=== PATIENT | male | born 1955 | race African-American/Black ===

== ENCOUNTER 2016-03-06 05:20 | Inpatient (IN) | payer MEDICARE, OTHER ==
[2016-03-06] VITALS (7 sets, daily range): BP systolic 86–184; BP diastolic 53–77; PULSE 94–106; RESP 16–20; TEMP 97–98.3; O2SAT 94–99
[~2016-03-06] VITALS: Ht 167.6 cm; Wt 76.1 kg
[~2016-03-06 05:20] MED LIST: ACET325S8 PO; BISA5TAB PO; CYCL5TAB PO; DUONI NEB; FENO200C PO; HUMALOGP SQ; HYDR10TA23 PO; ISOS30 PO; LAMO100 PO; LEVEMIR SQ; LEXA20TA PO; LIDO5T TOP; NEUR100C TUBE; NITR.4 SL; NORC7.5T PO; NU-IRON PO; OMEP20TA PO; OXYC1SOL5 PO; POLY119S PO; RENATAB5 PO; RISP1TAB51 PO; SEVEL800 PO; SUPETAB30 PO; TAMS0.4C67 PO; TRAZ50TA4 PO; VITA500C PO; XANA0.5T PO; ZOFR4TAB3 SL; [UNRECOGNIZED DRUG - CODE] TOP; [UNRECOGNIZED DRUG - CODE] TOP
[2016-03-06] MEDS ORDERED: PANTOPRAZOLE SODIUM 40 MG VIAL IVP ONE (06:15)
[2016-03-06] MEDS ORDERED: ONDANSETRON HCL 4 MG/2 ML VIAL IVP ONE (06:15)
[2016-03-06] MEDS ORDERED: FAMOTIDINE 20 MG/2 ML VIAL IV PUSH ONE (06:15)
[2016-03-06] MEDS ORDERED: SODIUM CHLOR 0.9% 250 ML INJ 250 ML IV ONE (06:15)
[2016-03-06] MEDS ORDERED: SODIUM CHLORIDE 0.9% FLUSH 5 ML FLUSH IVF PRN ×2 (06:15→15:45)
--- NOTE | 2016-03-06 06:23 | PD ---
HPI Chief Complaint: GI Complaint Time Seen by Provider: 06:04 Travel History International Travel<30 days: No Contact w/Intl Traveler<30days: No Traveled to known affect area: No History of Present Illness HPI Patient is a 60-year-old male who presents to emergency room with complaints of abdominal pain with nausea vomiting and vomiting with coffee-ground emesis. Patient reports that he's been having increased nausea and vomiting for the past 24 hours, reports that since 4 AM, he has vomited 3 times, reports that his vomit is dark brown in color. Patient reports diffuse abdominal pain with his nausea. Patient does have end-stage renal disease and is on hemodialysis, patient unsure of the days for his dialysis. Patient denies history of GI bleed in the past. Patient denies chest pain or shortness of breath. Patient with no other complaints. 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 MUSCLE WEAKNESS) Neurologic: Yes (LT SIDE FLACID LA CONTRACTED, MULTIPLE STROKES, HX SEIZURES) Psychiatric: Yes (EPISODIC MOOD DISORDER, PSYCHOSIS) Reproductive: No Respiratory: Yes Immunizations Current: No Migraines: No Myocardial Infarction: No Radiation Therapy: No Renal Failure: No Schizophrenia: Yes Seizures: No Sickle Cell Disease: No Sleep Apnea: No Thyroid Disease: Yes (HYPOTHYROIDISM) Ulcer: No PNEUMOCCOCAL Vaccine (Year): 2 Past Surgical History Abdominal Surgery: No AICD: No Arteriovenous Shunt: No Cardiac Surgery: Yes (STENT, CARDIAC CATHERIZATION) Coronary Artery Bypass Graft: No Coronary Stent: Yes Ear Surgery: No Endocrine Surgery: No Eye Surgery: No Genitourinary Surgery: No Gynecologic Surgery: No Insulin Pump: No Joint Replacement: No Neurologic Surgery: No Oral Surgery: No Pacemaker: No Thoracic Surgery: No Other Surgery: Yes Social History Alcohol Use: No Tobacco Use: No Substance Use: No Allergies-Medications (Allergen,Severity, Reaction): Coded Allergies: Methadone (Verified Allergy, Severe, 03/06/16) *MDRO Multi-Drug Resistant Organism (Verified Allergy, Unknown, 03/06/16) ESBL (sputum & urine) - 06/2015 MRSA (urine) - 02/2012 Darvocet-N 100 (Verified Allergy, Unknown, 03/06/16) PATIENT WAS TOLD TO NEVER TAKE THIS MEDICATION Reported Meds & Prescriptions Reported Meds & Active Scripts Active Reported Zofran (Ondansetron HCl) 8 Mg Tab 8 Mg PO QID PRN Zinc Oxide (Zinc Oxide (Topical)) 20 % Oin 1 Applic TD TID Tylenol (Acetaminophen) 325 Mg Tab 650 Mg PO Q4H PRN Trazodone (Trazodone HCl) 150 Mg Tab 150 Mg PO HS Silvadene Topical (Silver Sulfadiazine) 1 % Cream 1 Applic TOPICAL BID Risperdal (Risperidone) 0.5 Mg Tab 0.75 Mg PO Q12HR Renvela Liq (Sevelamer Carbonate) 2.4 Gm Pack 2.4 Gm PO TID Estrella-Rafa (B-Complex W/ C & Folic Acid) 1 Tab 1 Tab PO DAILY Omeprazole 20 Mg Tab 20 Mg PO DAILY Darrington (Hydrocodone-Acetaminophen) 10-325 Mg Tab 1 Tab PO Q12HR PRN Lexapro (Escitalopram Oxalate) 20 Mg Tab 20 Mg PO HS Levemir Inj (Insulin Detemir) 1,000 unit/ 10 ML Vial 19 Units SQ AC BREAKFAST Do not mix with any other Insulin. Levemir Inj (Insulin Detemir) 1,000 unit/ 10 ML Vial 15 Units SQ HS Do not mix with any other Insulin. Lamictal (Lamotrigine) 200 Mg Tab 200 Mg PO HS Isosorbide Mononitrate ER (Isosorbide Mononitrate) 30 Mg Ryan 30 Mg PO DAILY Hydralazine (Hydralazine HCl) 10 Mg Tab 10 Mg PO TID Take with a meal Humalog Inj (Insulin Human Lispro) 1,000 Unit/10 Ml Vial 2-12 Units SQ ACHS Max dose at bedtime:( )units; sugars < 70,(0)units; sugars 150-199,(2)units; sugars 200-249,(4)units; sugars 250-299,(7)units; sugars 300-349,(10)units; sugars more than 349,(12)units. Gabapentin 100 Mg Cap 200 Mg PO DAILY Flomax (Tamsulosin HCl) 0.4 Mg Cap 0.4 Mg PO HS Duoneb (Ipratropium-Albuterol Neb) 0.5-2.5 Mg/3 Ml Neb 1 Nebule INH Q4HR NEB PRN Bisacodyl EC (Bisacodyl) 5 Mg Tabec 10 Mg PO HS Ascorbic Acid 500 Mg Tab 500 Mg PO Ambien (Zolpidem Tartrate) 10 Mg Tab 10 Mg PO HS PRN Review of Systems General / Constitutional: No: Fever Eyes: No: Visual changes HENT: No: Headaches Cardiovascular: No: Chest Pain or Discomfort Respiratory: No: Shortness of Breath Gastrointestinal: Positive: Nausea, Vomiting, Abdominal Pain, Hematemesis Genitourinary: No: Dysuria Musculoskeletal: No: Pain Skin: No Rash Neurologic: No: Weakness Psychiatric: No: Depression Endocrine: No: Polydipsia Hematologic/Lymphatic: No: Easy Bruising Physical Exam Narrative GENERAL: Patient in mild distress SKIN: Warm and dry. HEAD: Atraumatic. Normocephalic. EYES: Pupils equal and round. No scleral icterus. No injection or drainage. ENT: No nasal bleeding or discharge. Mucous membranes pink and moist. NECK: Trachea midline. No JVD. CARDIOVASCULAR: Tachycardic. No murmur appreciated. RESPIRATORY: No accessory muscle use. Clear to auscultation. Breath sounds equal bilaterally. GASTROINTESTINAL: Abdomen soft, non-tender, nondistended. Patient with light brown stool, heme positive MUSCULOSKELETAL: No obvious deformities. No clubbing. No cyanosis. No edema. Patient with AV fistula to left lower extremity NEUROLOGICAL: Awake and alert. No obvious cranial nerve deficits. Motor grossly within normal limits. Normal speech. PSYCHIATRIC: Appropriate mood and affect; insight and judgment normal. Data Data Last Documented VS Vital Signs Date Time Temp Pulse Resp B/P Pulse Ox O2 Delivery O2 Flow Rate FiO2 03/06/16 06:49 16 99 Nasal Cannula 3 03/06/16 05:22 106 86/53 Orders Complete Blood Count With Diff (03/06/16 06:04) Comprehensive Metabolic Panel (03/06/16 06:04) Lipase (03/06/16 06:04) Lactic Acid (03/06/16 06:04) Prothrombin Time / Inr (Pt) (03/06/16 06:04) Act Partial Throm Time (Ptt) (03/06/16 06:04) Ct Abd/Pel W/O Iv Contrast (03/06/16 06:04) Iv Access Insert/Monitor (03/06/16 06:04) Ecg Monitoring (03/06/16 06:04) Oximetry (03/06/16 06:04) Ondansetron Inj (Zofran Inj) (03/06/16 06:15) Pantoprazole Inj (Protonix Inj) (03/06/16 06:15) Sodium Chloride 0.9% Flush (Ns Flush) (03/06/16 06:15) Electrocardiogram (03/06/16 06:04) Chest, Single Ap (03/06/16 06:04) Famotidine Inj (Pepcid Inj) (03/06/16 06:15) Sodium Chlor 0.9% 250 Ml Inj (Ns 250 Ml (03/06/16 06:15) Blood Culture (03/06/16 06:18) Type And Screen (03/06/16 06:21) Pantoprazole Inj (Protonix Inj) (03/06/16 07:30) Ng Gastric Tube Insert/Monitor (03/06/16 06:50) Consult Vascular Access Team (03/06/16 ) Vascular Poc Ultrasound (03/06/16 ) Labs Laboratory Tests Test 03/06/16 06:26 White Blood Count 15.0 TH/MM3 Red Blood Count 4.51 MIL/MM3 Hemoglobin 13.0 GM/DL Hematocrit 40.2 % Mean Corpuscular Volume 89.0 FL Mean Corpuscular Hemoglobin 28.9 PG Mean Corpuscular Hemoglobin 32.5 % Concent Red Cell Distribution Width 18.7 % Platelet Count 311 TH/MM3 Mean Platelet Volume 9.0 FL Neutrophils (%) (Auto) 79.0 % Lymphocytes (%) (Auto) 11.8 % Monocytes (%) (Auto) 8.8 % Eosinophils (%) (Auto) 0.1 % Basophils (%) (Auto) 0.3 % Neutrophils # (Auto) 11.9 TH/MM3 Lymphocytes # (Auto) 1.8 TH/MM3 Monocytes # (Auto) 1.3 TH/MM3 Eosinophils # (Auto) 0.0 TH/MM3 Basophils # (Auto) 0.0 TH/MM3 CBC Comment DIFF FINAL Differential Comment Prothrombin Time 11.5 SEC Prothromb Time International 1.0 RATIO Ratio Activated Partial 25.7 SEC Thromboplast Time Sodium Level 137 MEQ/L Potassium Level 5.5 MEQ/L Chloride Level 86 MEQ/L Carbon Dioxide Level 37.0 MEQ/L Anion Gap 14 MEQ/L Blood Urea Nitrogen 47 MG/DL Creatinine 8.56 MG/DL Estimat Glomerular Filtration 8 ML/MIN Rate Random Glucose 243 MG/DL Lactic Acid Level 2.1 mmol/L Calcium Level 10.0 MG/DL Total Bilirubin 0.5 MG/DL Aspartate Amino Transf 12 U/L (AST/SGOT) Alanine Aminotransferase 44 U/L (ALT/SGPT) Alkaline Phosphatase 88 U/L Total Protein 10.3 GM/DL Albumin 3.4 GM/DL Lipase 104 U/L Blood Type B POSITIVE Antibody Screen NEGATIVE MDM Medical Decision Making Medical Screen Exam Complete: Yes Emergency Medical Condition: Yes Interpretation(s) Vital Signs Date Time Temp Pulse Resp B/P Pulse Ox O2 Delivery O2 Flow Rate FiO2 03/06/16 05:22 106 18 86/53 94 Differential Diagnosis GI bleed, symptomatic anemia, gastritis, gastric ulcer, gastroenteritis, UTI, sepsis, pneumonia Narrative Course Patient is a 60-year-old male who presents to emergency room with complaints of nausea vomiting and abdominal pain. Reports that he began having nausea vomiting 24 hours ago. Patient reports that since 1 AM this morning, he has vomited 3 times and reports coffee ground emesis with vomiting. Pt hypotensive and tachycardic. Pt with ESRD on HD. Will give pt 250 bolus of fluids. Pt with light brown heme positive stool. pt will require gi bleed workup. cbc , bmp, ct abd pelvis ordered. NGT lavage ordered. will type and screen pt as he may require blood products. Will start protonix, protonix gtt BP now 109/82 - pt's iv apparently is non functional, attempt made to place EJ - pt refuses EJ, IV team here to place IV, IV placed successfully Procedures Procedure Narrative 20 gauge IV successfully placed to right AC under ultrasound guidance Liane Montanez DO Mar 06, 2016 06:22
[2016-03-06] MEDS ORDERED: HYDR-3366 PO (06:24)
[2016-03-06] MEDS ORDERED: LEVEMIR SQ ×2 (06:24)
[2016-03-06] MEDS ORDERED: OMEP20TA PO (06:24)
[2016-03-06] MEDS ORDERED: ASCO500T PO (06:24)
[2016-03-06] MEDS ORDERED: TAMS5CAP PO (06:24)
[2016-03-06] MEDS ORDERED: HYDR10TA23 PO (06:24)
[2016-03-06] MEDS ORDERED: LAMI200T PO (06:24)
[2016-03-06] MEDS ORDERED: RENATAB5 PO (06:24)
[2016-03-06] MEDS ORDERED: ISOS30TA3 PO (06:24)
[2016-03-06] MEDS ORDERED: SILV1CRE20 TOPICAL (06:24)
[2016-03-06] MEDS ORDERED: TRAZ150T75 PO (06:24)
[2016-03-06] MEDS ORDERED: IPRASOL INH (06:24)
[2016-03-06] MEDS ORDERED: AMBI10TA PO (06:24)
[2016-03-06] MEDS ORDERED: ZINC20OI TD (06:24)
[2016-03-06] MEDS ORDERED: HUMALOG SQ (06:24)
[2016-03-06] MEDS ORDERED: ZOFR8TAB PO (06:24)
[2016-03-06] MEDS ORDERED: RENV2.4P PO (06:24)
[2016-03-06] MEDS ORDERED: FLEE5TAB PO (06:24)
[2016-03-06] MEDS ORDERED: LEXA20TA PO (06:24)
[2016-03-06] MEDS ORDERED: GABA100C4 PO (06:24)
[2016-03-06] MEDS ORDERED: RISP0.5T20 PO (06:24)
[2016-03-06] MEDS ORDERED: TYLE325T PO (06:24)
--- NOTE | 2016-03-06 06:42 | RADRPT ---
EXAM DATE/TIME: 03/06/2016 06:18 [facility] COMPARISON: CHEST SINGLE AP, August 03, 2015, 11:53. INDICATIONS : Pt having chest pain with coffee ground emesis. MEDICAL HISTORY : Hypertension. Cardiovascular disease. Stroke. SURGICAL HISTORY : ENCOUNTER: Initial ACUITY: 1 day PAIN SCORE: Non-responsive. LOCATION: Bilateral chest FINDINGS: The patient is rotated towards the left. Focal opacity in the lower lateral left chest suggests a de veloping infiltrate and there is associated loss of delineation of the left hemidiaphragm the costoph renic angle. The. The right lung is clear. The heart is normal in size. CONCLUSION: Consolidative infiltrate lower lateral left lung. Lito Enamorado MD on March 06, 2016 at 6:39 Board Certified Radiologist. This report was verified electronically.
[2016-03-06 07:02] LABS: AUTOMATED NEUTROPHIL # 11.9 TH/MM3 (1.8-7.7); BASOPHIL % 0.3 % (0.0-2.0); EOSINOPHIL % 0.1 % (0.0-4.0); HEMATOCRIT 40.2 % (39.0-51.0); HEMO FLAGS DIFF FINAL; LYMPH % 11.8 % (9.0-44.0); LYMPHOCYTE # 1.8 TH/MM3 (1.0-4.8); MEAN CORPUSCULAR HEMOGLOBIN 28.9 PG (27.0-34.0); MEAN CORPUSCULAR HGB CONC 32.5 % (32.0-36.0); MONO % 8.8 % (0.0-8.0); PLATELET COUNT 311 TH/MM3 (150-450); RED BLOOD COUNT 4.51 MIL/MM3 (4.50-5.90); RED CELL DISTRIBUTION WIDTH 18.7 % (11.6-17.2)
[2016-03-06 07:14] LABS: APTT (PATIENT) 25.7 SEC (24.3-30.1); PROTHROMBIN TIME - PATIENT 11.5 SEC (9.8-11.6)
[2016-03-06 07:15] LABS: ANION GAP 14 MEQ/L (5-15); AST (GOT) 12 U/L (15-37); BLOOD UREA NITROGEN 47 MG/DL (7-18); CHLORIDE 86 MEQ/L (98-107); GLOMERULAR FILTRATION RATE 8 ML/MIN (>89); POTASSIUM 5.5 MEQ/L (3.5-5.1); SODIUM (NA) 137 MEQ/L (136-145)
[2016-03-06 07:18] LABS: ALKALINE PHOSPHATASE 88 U/L (45-117); ALT (GPT) 44 U/L (12-78); TOTAL BILIRUBIN ADULT 0.5 MG/DL (0.2-1.0)
[2016-03-06] MEDS ORDERED: PIPERACIL-TAZO 4.5 GM PREMIX 100 ML IV STA (08:42)
[2016-03-06] MEDS ORDERED: VANCOMYCIN INJ 1,000 MG in SODIUM CHLOR 0.9% 250 ML INJ 250 ML IV STA (08:42)
--- NOTE | 2016-03-06 08:48 | PD ---
Data Data Last Documented VS Vital Signs Date Time Temp Pulse Resp B/P Pulse Ox O2 Delivery O2 Flow Rate FiO2 03/06/16 08:49 98.3 102 138/53 98 Nasal Cannula 03/06/16 06:49 16 3 Orders Complete Blood Count With Diff (03/06/16 06:04) Comprehensive Metabolic Panel (03/06/16 06:04) Lipase (03/06/16 06:04) Lactic Acid (03/06/16 06:04) Prothrombin Time / Inr (Pt) (03/06/16 06:04) Act Partial Throm Time (Ptt) (03/06/16 06:04) Ct Abd/Pel W/O Iv Contrast (03/06/16 06:04) Iv Access Insert/Monitor (03/06/16 06:04) Ecg Monitoring (03/06/16 06:04) Oximetry (03/06/16 06:04) Ondansetron Inj (Zofran Inj) (03/06/16 06:15) Pantoprazole Inj (Protonix Inj) (03/06/16 06:15) Sodium Chloride 0.9% Flush (Ns Flush) (03/06/16 06:15) Electrocardiogram (03/06/16 06:04) Chest, Single Ap (03/06/16 06:04) Famotidine Inj (Pepcid Inj) (03/06/16 06:15) Sodium Chlor 0.9% 250 Ml Inj (Ns 250 Ml (03/06/16 06:15) Blood Culture (03/06/16 06:18) Type And Screen (03/06/16 06:21) Pantoprazole Inj (Protonix Inj) (03/06/16 07:30) Ng Gastric Tube Insert/Monitor (03/06/16 06:50) Consult Vascular Access Team (03/06/16 ) Vascular Poc Ultrasound (03/06/16 ) Vancomycin Inj (Vancomycin Inj) (03/06/16 08:42) Piperacil-Tazo 4.5 Gm Premix (Zosyn 4.5 (03/06/16 08:42) Labs Laboratory Tests Test 03/06/16 06:26 White Blood Count 15.0 TH/MM3 Red Blood Count 4.51 MIL/MM3 Hemoglobin 13.0 GM/DL Hematocrit 40.2 % Mean Corpuscular Volume 89.0 FL Mean Corpuscular Hemoglobin 28.9 PG Mean Corpuscular Hemoglobin 32.5 % Concent Red Cell Distribution Width 18.7 % Platelet Count 311 TH/MM3 Mean Platelet Volume 9.0 FL Neutrophils (%) (Auto) 79.0 % Lymphocytes (%) (Auto) 11.8 % Monocytes (%) (Auto) 8.8 % Eosinophils (%) (Auto) 0.1 % Basophils (%) (Auto) 0.3 % Neutrophils # (Auto) 11.9 TH/MM3 Lymphocytes # (Auto) 1.8 TH/MM3 Monocytes # (Auto) 1.3 TH/MM3 Eosinophils # (Auto) 0.0 TH/MM3 Basophils # (Auto) 0.0 TH/MM3 CBC Comment DIFF FINAL Differential Comment Prothrombin Time 11.5 SEC Prothromb Time International 1.0 RATIO Ratio Activated Partial 25.7 SEC Thromboplast Time Sodium Level 137 MEQ/L Potassium Level 5.5 MEQ/L Chloride Level 86 MEQ/L Carbon Dioxide Level 37.0 MEQ/L Anion Gap 14 MEQ/L Blood Urea Nitrogen 47 MG/DL Creatinine 8.56 MG/DL Estimat Glomerular Filtration 8 ML/MIN Rate Random Glucose 243 MG/DL Lactic Acid Level 2.1 mmol/L Calcium Level 10.0 MG/DL Total Bilirubin 0.5 MG/DL Aspartate Amino Transf 12 U/L (AST/SGOT) Alanine Aminotransferase 44 U/L (ALT/SGPT) Alkaline Phosphatase 88 U/L Total Protein 10.3 GM/DL Albumin 3.4 GM/DL Lipase 104 U/L Blood Type B POSITIVE Antibody Screen NEGATIVE MDM Supervised Visit with JONO: No Narrative Course Patient signout to me by previous provider. Please see associated no for further details. In short patient is a 60-year-old man with history of ESRD on HD dialyzed Tuesday/Tuesday/Tuesday here with complaint of abdominal pain, nausea vomiting and coffee-ground emesis. Apparently he's had nausea for the last 24 hours and vomited 3 times, the last of which had dark brown coffee- ground emesis. Diffuse abdominal pain. Denies any known history of GI bleed. Patient initially hypotensive, patient given 250 mL normal saline bolus by previous provider given patient's ESRD, with improvement of blood pressure into the 100 systolic. Patient slightly tachycardic with heart rate in the 100s. Patient given IV PPI, labs ordered and sent. Patient signout to me pending laboratory results, CT abdomen and pelvis. CBC, CMP, lipase, lactate, coags, type and screen, blood cultures obtained and notable for WBC 15 0.0, BUN 47/creatinine 8.56 consistent with his ESRD. Slightly elevated potassium at 5.5. Bicarbonate 37. Lactate slightly elevated at 2.1. Twelve-lead EKG shows sinus tachycardia, rate 103. Left atrial enlargement with left axis deviation. No notable ST abnormalities, normal intervals. Given his leukocytosis, lactic elevation, hypotension and tachycardia I covered patient with vancomycin and Zosyn broadly. Portable chest x-ray ordered and showed a left basilar pneumonia. CT abdomen and pelvis showed in homogenous liver probably fatty infiltration. Large hiatal hernia and strengthening kidneys consistent with ESRD. Patient remains hemodynamically stable and will be admitted to medicine for further evaluation of possible sepsis, GI bleed. Sepsis Criteria SIRS Criteria (2 or more): Heart rate over 90, WBC > 75956, < 4000 or > 10% bands Severe Sepsis (+one): Lactate >2 Diagnosis Primary Impression: Sepsis Qualified Code: A41.9 - Sepsis, due to unspecified organism Additional Impressions: GI bleed End stage renal disease Admitting Information Admitting Physician Requests: Admit Karissa Greenwood MD Mar 06, 2016 08:48
--- NOTE | 2016-03-06 09:50 | RADRPT ---
EXAM DATE/TIME: 03/06/2016 06:29 [facility] COMPARISON: CT ABDOMEN & PELVIS W/O CONTRAST, November 29, 2014, 13:01. INDICATIONS : Nausea vomiting with coffee ground emesis. ORAL CONTRAST: No oral contrast ingested. RADIATION DOSE: 15.67 CTDIvol (mGy) MEDICAL HISTORY : Hypertension. Benign prostatic hyperplasia (BPH). Diabetes mellitus type 2.Renal disease. Hepetitis. Neoplasm in colon. SURGICAL HISTORY : Non-responsive. ENCOUNTER: Initial ACUITY: 3 days PAIN SCALE: 10/10 LOCATION: Abdomen TECHNIQUE: Volumetric scanning of the abdomen and pelvis was performed. Using automated exposure control and ad justment of the mA and/or kV according to patient size, radiation dose was kept as low as reasonably achievable to obtain optimal diagnostic quality images. FINDINGS: The lung bases are clear. The liver is inhomogeneous. Spleen and pancreas are unremarkable. The right adrenal gland is normal. A small focal calcification is seen in the left adrenal gland wit h a small nodule evident. The kidneys are small. There are no renal calculi identified. There are no calcifications along the expected course of the right or the left ureter. In the pelvis, moderate stool is present in the colon. A vascular stent is seen in the common femora l on the right. Review of bone windows reveals only degenerative changes. CONCLUSION: 1. Inhomogeneous liver probably fatty infiltration. This could be further evaluated by CT scan with IV contrast in this dialysis patient. 2. Large hiatal hernia. 3. Small shrunken kidneys consistent with a history of dialysis. Felix Isaac MD FACR on March 06, 2016 at 9:36 Board Certified Radiologist. This report was verified electronically.
[2016-03-06] MEDS ORDERED: ONDANSETRON HCL 4 MG/2 ML VIAL IV PUSH PRN (10:45)
[2016-03-06] MEDS ORDERED: SODIUM CHLOR 0.45% 1000 ML INJ 1,000 ML IV ONE (11:00)
[2016-03-06] MEDS: PANTOPRAZOLE INJ 80 MG in SODIUM CHLORIDE 0.9% INJ 100 ML IV SCH ×2 (11:05→17:02)
--- NOTE | 2016-03-06 11:05 | PD.CONS ---
HPI History of Present Illness This is a 60 year old male patient with multiple medical problems, including end stage renal disease who gets hemodialysis on Mondays, Wednesdays, Fridays, who came to the ER for evaluation of nausea, vomiting, and coffee ground emesis. He reports that he had nausea and vomiting all day yesterday and that it consisted of a very dark color. He also has associated epigastric pain that he describes as an intermittent ache/sometimes sharp pain with no radiation. He denies any relation to food. He denies any reflux or heartburn. He denies any diarrhea but does have constipation. He does not know if he takes meds for this at home. He denies any blood in his stools or black stools. He denies any hx of GI Bleeding. He denies any hx of PUD. He is a poor historian. When asked if he takes any blood thinners, he shrugs his shoulders. He does not have any blood thinners listed on his EMR. The patient cannot recall if he has ever had an EGD/Colonoscopy, although according to the EMR, he had an EGD and colonoscopy in 2012. EGD/Colonoscopy (04/25/12)----> severe erosive esophagitis, medium hiatal hernia, rectal polyp removal. Pathology revealed acute esophagitis with features of ulceration, no fungal organisms are present, tubular adenoma. (Tita Infante) PFSH Past Medical History Poor historian, according to the EMR: Diabetes Hypertension Chronic nausea and vomiting End-stage renal disease, hemodialysis Mondays, Wednesdays, Fridays Bipolar d/o Depression GERD Coronary artery disease Congestive heart failure Paranoid schizophrenia PVD Hyperlipidemia CVA with left-sided hemiparesis Peripheral neuropathy Hypothyroidism Arthritis Esophagitis Colon polyps Past Surgical History EGD Colonoscopy Cardiac catheterization AV fistula placement (Tita Infante) Coded Allergies: Methadone (Verified Allergy, Severe, 03/06/16) *MDRO Multi-Drug Resistant Organism (Verified Allergy, Unknown, 03/06/16) ESBL (sputum & urine) - 06/2015 MRSA (urine) - 02/2012 Darvocet-N 100 (Verified Allergy, Unknown, 03/06/16) PATIENT WAS TOLD TO NEVER TAKE THIS MEDICATION Medications Allergies Coded Allergies Type Severity Reaction Last Updated Verified Methadone Allergy Severe 03/06/16 Yes *MDRO Multi-Drug Resistant Organism Allergy Unknown 03/06/16 Yes Darvocet-N 100 Allergy Unknown 03/06/16 Yes Active Scripts Medications Dose Route/Sig Days Date Category Dose Instructions Zofran (Ondansetron HCl) 8 Mg Tab 8 Mg PO QID PRN 03/06/16 Reported Zinc Oxide (Zinc Oxide (Topical)) 20 % Oin 1 Applic TD TID 03/06/16 Reported Tylenol (Acetaminophen) 325 Mg Tab 650 Mg PO Q4H PRN 03/06/16 Reported Trazodone (Trazodone HCl) 150 Mg Tab 150 Mg PO HS 03/06/16 Reported Silvadene Topical (Silver Sulfadiazine) 1 % Cream 1 Applic TOPICAL BID 03/06/16 Reported Risperdal (Risperidone) 0.5 Mg Tab 0.75 Mg PO Q12HR 03/06/16 Reported Renvela Liq (Sevelamer Carbonate) 2.4 Gm Pack 2.4 Gm PO TID 03/06/16 Reported Estrella-Rafa (B-Complex W/ C & Folic Acid) 1 Tab 1 Tab PO DAILY 03/06/16 Reported Omeprazole 20 Mg Tab 20 Mg PO DAILY 03/06/16 Reported [place] (Hydrocodone-Acetaminophen) 10-325 Mg Tab 1 Tab PO Q12HR PRN 03/06/16 Reported Lexapro (Escitalopram Oxalate) 20 Mg Tab 20 Mg PO HS 03/06/16 Reported Levemir Inj (Insulin Detemir) 1,000 unit/ 10 ML Vial 19 Units SQ AC BREAKFAST 03/06/16 Reported Do not mix with any other Insulin. Levemir Inj (Insulin Detemir) 1,000 unit/ 10 ML Vial 15 Units SQ HS 03/06/16 Reported Do not mix with any other Insulin. Lamictal (Lamotrigine) 200 Mg Tab 200 Mg PO HS 03/06/16 Reported Isosorbide Mononitrate ER (Isosorbide Mononitrate) 30 Mg Ryan 30 Mg PO DAILY 03/06/16 Reported Hydralazine (Hydralazine HCl) 10 Mg Tab 10 Mg PO TID 03/06/16 Reported Take with a meal Humalog Inj (Insulin Human Lispro) 1,000 Unit/10 Ml Vial 2-12 Units SQ ACHS 03/06/16 Reported Max dose at bedtime:( )units; sugars < 70,(0)units ; sugars 150-199,(2)units; sugars 200-249,(4)units; sugars 250-299,(7)units; sugars 300-349,(10)units; sugars more than 349,(12)units. Gabapentin 100 Mg Cap 200 Mg PO DAILY 03/06/16 Reported Flomax (Tamsulosin HCl) 0.4 Mg Cap 0.4 Mg PO HS 03/06/16 Reported Duoneb (Ipratropium-Albuterol Neb) 0.5-2.5 Mg/3 Ml Neb 1 Nebule INH Q4HR NEB PRN 03/06/16 Reported Bisacodyl EC (Bisacodyl) 5 Mg Tabec 10 Mg PO HS 03/06/16 Reported Ascorbic Acid 500 Mg Tab 500 Mg PO 03/06/16 Reported Ambien (Zolpidem Tartrate) 10 Mg Tab 10 Mg PO HS PRN 03/06/16 Reported Family History States his brother had colon cancer. Social History No tobacco. No etoh. No illicit drug use. (Tita Infante) Review of Systems Constitutional: COMPLAINS OF: Fatigue, Weight loss (unclear amount) Respiratory: COMPLAINS OF: Shortness of breath, DENIES: Cough Cardiovascular: DENIES: Chest pain Gastrointestinal: COMPLAINS OF: Abdominal pain, Constipation, Nausea, Vomiting , Hematemesis, DENIES: Black stools, Bloody stools, Diarrhea, Swelling of Abdomen, Heartburn Musculoskeletal: COMPLAINS OF: Joint pain Integumentary: DENIES: Abnormal pigmentation Hematologic/lymphatic: DENIES: Bruising Neurologic: DENIES: Headache Psychiatric: DENIES: Confusion (Tita Infante) GI Exam Vitals I&O Vital Signs Date Time Temp Pulse Resp B/P Pulse Ox O2 Delivery O2 Flow Rate FiO2 03/06/16 08:49 98.3 102 138/53 98 Nasal Cannula 03/06/16 06:49 16 99 Nasal Cannula 3 03/06/16 05:22 106 18 86/53 94 Laboratory Test 03/06/16 06:26 White Blood Count 15.0 TH/MM3 Red Blood Count 4.51 MIL/MM3 Hemoglobin 13.0 GM/DL Hematocrit 40.2 % Mean Corpuscular Volume 89.0 FL Mean Corpuscular Hemoglobin 28.9 PG Mean Corpuscular Hemoglobin 32.5 % Concent Red Cell Distribution Width 18.7 % Platelet Count 311 TH/MM3 Mean Platelet Volume 9.0 FL Neutrophils (%) (Auto) 79.0 % Lymphocytes (%) (Auto) 11.8 % Monocytes (%) (Auto) 8.8 % Eosinophils (%) (Auto) 0.1 % Basophils (%) (Auto) 0.3 % Neutrophils # (Auto) 11.9 TH/MM3 Lymphocytes # (Auto) 1.8 TH/MM3 Monocytes # (Auto) 1.3 TH/MM3 Eosinophils # (Auto) 0.0 TH/MM3 Basophils # (Auto) 0.0 TH/MM3 CBC Comment DIFF FINAL Differential Comment Prothrombin Time 11.5 SEC Prothromb Time International 1.0 RATIO Ratio Activated Partial 25.7 SEC Thromboplast Time Sodium Level 137 MEQ/L Potassium Level 5.5 MEQ/L Chloride Level 86 MEQ/L Carbon Dioxide Level 37.0 MEQ/L Anion Gap 14 MEQ/L Blood Urea Nitrogen 47 MG/DL Creatinine 8.56 MG/DL Estimat Glomerular Filtration 8 ML/MIN Rate Random Glucose 243 MG/DL Lactic Acid Level 2.1 mmol/L Calcium Level 10.0 MG/DL Total Bilirubin 0.5 MG/DL Aspartate Amino Transf 12 U/L (AST/SGOT) Alanine Aminotransferase 44 U/L (ALT/SGPT) Alkaline Phosphatase 88 U/L Total Protein 10.3 GM/DL Albumin 3.4 GM/DL Lipase 104 U/L Blood Type B POSITIVE Antibody Screen NEGATIVE Date/Time Procedure Status Source Growth 03/06/16 09:00 Aerobic Blood Culture Received Blood Peripheral Pending 03/06/16 09:00 Anaerobic Blood Culture Received Blood Peripheral Pending Physical Examination HEENT: Normocephalic; atraumatic; no jaundice. CHEST: CTA CARDIAC: RRR ABDOMEN: Soft, nondistended, nontender; no hepatosplenomegaly; bowel sounds are present in all four quadrants. EXTREMITIES: No clubbing, cyanosis, or edema. 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 left sided weakness. (Tita Infante) Assessment and Plan Plan ASSESSMENT: - Upper GI Bleed with coffee ground emesis. States n/v with dark emesis since yesterday. Denies hx of PUD. EGD/Colonoscopy (04/25/12)----> severe erosive esophagitis, medium hiatal hernia, rectal polyp removal. Pathology revealed acute esophagitis with features of ulceration, no fungal organisms are present, tubular adenoma. HH 13.0/40.2. PPI. NPO. Will schedule for EGD today. - Epigastric pain. PPI - Leukocytosis. WBC 15.0. - ESRD, HD Mondays, Wednesdays, Fridays per renal. - Hyperkalemia. K+ 5.5. Per renal. - CAD, HTN, Hyperlipidemia, Hypothyroidism, Bipolar d/o PLAN: - Plan for egd today - Obtain consents - NPO - Protonix Gtt - Monitor HH - Transfuse as necessary - Supportive care - Further recommendations to follow based on results of above - Pt seen and examined by Dr. Amezquita and myself and this note is written on his behalf (Tita Infante) Physician Comments Patient was seen and examined, agree with above note, EGD today. PRBC as needed. (John Paul Amezquita MD) Tita Infante Mar 06, 2016 11:05 John Paul Amezquita MD Mar 06, 2016 13:51
--- NOTE | 2016-03-06 11:28 | EKG ---
Date Performed: 03/06/2016 Time Performed: 07:32:54 PTAGE: 60 years EKG: SINUS TACHYCARDIA POSSIBLE LEFT ATRIAL ENLARGEMENT LEFT AXIS DEVIATION ABNORMAL ECG PREVIOUS TRACING : 07/25/2015 12.10 Since previous tracing, no significant change noted DOCTOR: Jaime Stroud Interpretating Date/Time 03/06/2016 11:27:16
--- NOTE | 2016-03-06 12:24 | HHI.HP ---
[facility] Primary Care Physician Non-Staff Admission Diagnosis sepsis, abdominal pain, GI bleed Diagnoses: (1) GI bleed Diagnosis: Principal (2) End stage renal disease Diagnosis: Secondary Chief Complaint: vomiting blood Travel History International Travel<30 Days: No Contact w/Intl Traveler <30 Da: No Traveled to Known Affected Are: No Sepsis Criteria SIRS Criteria (2 or more): Heart rate over 90, WBC > 38537, < 4000 or > 10% bands Sepsis Criteria (SIRS+source): Infect source susp/known Severe Sepsis (+one): Hypotension Criteria Outcome: Meets severe sepsis criteria History of Present Illness patient is a 60 y/o male with history of ESRD, CAD who presented to ER after he vomited blood. the patient is not a good historian and most of the information was obtained from ER and medical documents. he reportedly had a few episodes of hematemesis. he denies any abdominal pain or nausea at this moment. he denies any sob or dizziness.he's not sure when he has his last HD. Review of Systems ROS Limitations: Poor Historian Gastrointestinal: COMPLAINS OF: Vomiting Past Family Social History Past Medical History Poor historian, according to the EMR: Diabetes Hypertension Chronic nausea and vomiting End-stage renal disease, hemodialysis Mondays, Wednesdays, Fridays Bipolar d/o Depression GERD Coronary artery disease Congestive heart failure Paranoid schizophrenia PVD Hyperlipidemia CVA with left-sided hemiparesis Peripheral neuropathy Hypothyroidism Arthritis Esophagitis Colon polyps Past Surgical History EGD Colonoscopy Cardiac catheterization AV fistula placement Reported Medications Zofran (Ondansetron HCl) 8 Mg Tab 8 Mg PO QID PRN Zinc Oxide (Zinc Oxide (Topical)) 20 % Oin 1 Applic TD TID Tylenol (Acetaminophen) 325 Mg Tab 650 Mg PO Q4H PRN Trazodone (Trazodone HCl) 150 Mg Tab 150 Mg PO HS Silvadene Topical (Silver Sulfadiazine) 1 % Cream 1 Applic TOPICAL BID Risperdal (Risperidone) 0.5 Mg Tab 0.75 Mg PO Q12HR Renvela Liq (Sevelamer Carbonate) 2.4 Gm Pack 2.4 Gm PO TID Estrella-Rafa (B-Complex W/ C & Folic Acid) 1 Tab 1 Tab PO DAILY Omeprazole 20 Mg Tab 20 Mg PO DAILY [place] (Hydrocodone-Acetaminophen) 10-325 Mg Tab 1 Tab PO Q12HR PRN Lexapro (Escitalopram Oxalate) 20 Mg Tab 20 Mg PO HS Levemir Inj (Insulin Detemir) 1,000 unit/ 10 ML Vial 19 Units SQ AC BREAKFAST Do not mix with any other Insulin. Levemir Inj (Insulin Detemir) 1,000 unit/ 10 ML Vial 15 Units SQ HS Do not mix with any other Insulin. Lamictal (Lamotrigine) 200 Mg Tab 200 Mg PO HS Isosorbide Mononitrate ER (Isosorbide Mononitrate) 30 Mg Ryan 30 Mg PO DAILY Hydralazine (Hydralazine HCl) 10 Mg Tab 10 Mg PO TID Take with a meal Humalog Inj (Insulin Human Lispro) 1,000 Unit/10 Ml Vial 2-12 Units SQ ACHS Max dose at bedtime:( )units; sugars < 70,(0)units; sugars 150-199,(2)units; sugars 200-249,(4)units; sugars 250-299,(7)units; sugars 300-349,(10)units; sugars more than 349,(12)units. Gabapentin 100 Mg Cap 200 Mg PO DAILY Flomax (Tamsulosin HCl) 0.4 Mg Cap 0.4 Mg PO HS Duoneb (Ipratropium-Albuterol Neb) 0.5-2.5 Mg/3 Ml Neb 1 Nebule INH Q4HR NEB PRN Bisacodyl EC (Bisacodyl) 5 Mg Tabec 10 Mg PO HS Ascorbic Acid 500 Mg Tab 500 Mg PO Ambien (Zolpidem Tartrate) 10 Mg Tab 10 Mg PO HS PRN Allergies: Coded Allergies: Methadone (Verified Allergy, Severe, 03/06/16) *MDRO Multi-Drug Resistant Organism (Verified Allergy, Unknown, 03/06/16) ESBL (sputum & urine) - 06/2015 MRSA (urine) - 02/2012 Darvocet-N 100 (Verified Allergy, Unknown, 03/06/16) PATIENT WAS TOLD TO NEVER TAKE THIS MEDICATION Active Ordered Medications Current Medications Ondansetron HCl (Zofran Inj) 4 mg ONCE ONCE IVP Last administered on 03/06/16 07:59; Start 03/06/16 at 06:15; Stop 03/06/16 at 06:16; Status DC Pantoprazole Sodium (Protonix Inj) 80 mg ONCE ONCE IVP Last administered on 07:59; Start 03/06/16 at 06:15; Stop 03/06/16 at 06:16; Status DC IV Flush (NS Flush) 2 ml UNSCH PRN IVF FLUSH AFTER USING IV ACCESS; Start at 06:15 Famotidine 20 mg 20 mg ONCE ONCE IV PUSH Last administered on 03/06/16 08:00; Start 03/06/16 at 06:15; Stop 03/06/16 at 06:16; Status DC Sodium Chloride 250 ml @ 250 mls/hr BOLUS ONCE IV Last administered on 07:58; Start 03/06/16 at 06:15; Stop 03/06/16 at 07:14; Status DC Pantoprazole Sodium 80 mg/ Sodium Chloride 100 ml @ 10 mls/hr Q10H IV Last administered on 03/06/16 11:05; Start 03/06/16 at 07:30 Vancomycin HCl 1000 mg/Sodium Chloride 250 ml @ 250 mls/hr ONCE STAT IV Last administered on 03/06/16 10:04; Start 03/06/16 at 08:42; Stop 03/06/16 at 09:41; Status DC Piperacillin Sod/ Tazobactam Sod 100 ml @ 200 mls/hr ONCE STAT IV Last administered on 03/06/16 09:06; Start 03/06/16 at 08:42; Stop 03/06/16 at 09:11; Status DC Sodium Chloride (1/2 NS 1000 ml Inj) 1,000 ml @ 50 mls/hr Q20H ONCE IV Last administered on 03/06/16 11:45; Start 03/06/16 at 11:00; Stop 03/07/16 at 06:59 Ondansetron HCl (Zofran Inj) 4 mg Q8HR PRN IV PUSH NAUSEA; Start 03/06/16 at 10: 45 Family History States his brother had colon cancer. Social History No tobacco. No etoh. No illicit drug use. Physical Exam Vital Signs Vital Signs Date Time Temp Pulse Resp B/P Pulse Ox O2 Delivery O2 Flow Rate FiO2 03/06/16 08:49 98.3 102 138/53 98 Nasal Cannula 03/06/16 06:49 16 99 Nasal Cannula 3 03/06/16 05:22 106 18 86/53 94 Physical Exam GENERAL: This is a well-nourished, well-developed patient, in no apparent distress. SKIN: No rashes, ecchymoses or lesions. Cool and dry. HEAD: Atraumatic. Normocephalic. No temporal or scalp tenderness. EYES: Pupils equal round and reactive. Extraocular motions intact. No scleral icterus. No injection or drainage. ENT: Nose without bleeding, purulent drainage or septal hematoma. Throat without erythema, tonsillar hypertrophy or exudate. Uvula midline. Airway patent. NECK: Trachea midline. No JVD or lymphadenopathy. Supple, nontender, no meningeal signs. CARDIOVASCULAR: Regular rate and rhythm without murmurs, gallops, or rubs. RESPIRATORY: Clear to auscultation. Breath sounds equal bilaterally. No wheezes , rales, or rhonchi. GASTROINTESTINAL: Abdomen soft, non-tender, nondistended. No hepato-splenomegaly , or palpable masses. No guarding. MUSCULOSKELETAL: Extremities without clubbing, cyanosis, or edema. No joint tenderness, effusion, or edema noted. No calf tenderness. Negative Homans sign bilaterally. NEUROLOGICAL: Awake and alert. with left-sided weakness. Laboratory Laboratory Tests Test 03/06/16 06:26 White Blood Count 15.0 Red Blood Count 4.51 Hemoglobin 13.0 Hematocrit 40.2 Mean Corpuscular Volume 89.0 Mean Corpuscular Hemoglobin 28.9 Mean Corpuscular Hemoglobin 32.5 Concent Red Cell Distribution Width 18.7 Platelet Count 311 Mean Platelet Volume 9.0 Neutrophils (%) (Auto) 79.0 Lymphocytes (%) (Auto) 11.8 Monocytes (%) (Auto) 8.8 Eosinophils (%) (Auto) 0.1 Basophils (%) (Auto) 0.3 Neutrophils # (Auto) 11.9 Lymphocytes # (Auto) 1.8 Monocytes # (Auto) 1.3 Eosinophils # (Auto) 0.0 Basophils # (Auto) 0.0 CBC Comment DIFF FINAL Differential Comment Prothrombin Time 11.5 Prothromb Time International 1.0 Ratio Activated Partial 25.7 Thromboplast Time Sodium Level 137 Potassium Level 5.5 Chloride Level 86 Carbon Dioxide Level 37.0 Anion Gap 14 Blood Urea Nitrogen 47 Creatinine 8.56 Estimat Glomerular Filtration 8 Rate Random Glucose 243 Lactic Acid Level 2.1 Calcium Level 10.0 Total Bilirubin 0.5 Aspartate Amino Transf 12 (AST/SGOT) Alanine Aminotransferase 44 (ALT/SGPT) Alkaline Phosphatase 88 Total Protein 10.3 Albumin 3.4 Lipase 104 Blood Type B POSITIVE Antibody Screen NEGATIVE Date/Time Procedure Status Source Growth 03/06/16 09:00 Aerobic Blood Culture Received Blood Peripheral Pending 03/06/16 09:00 Anaerobic Blood Culture Received Blood Peripheral Pending Result Diagram: 03/06/1662503/06/16625 Imaging EKG; sinus tachycardia Assessment and Plan Assessment and Plan A/P - hematemesis keep NPO- gentle IV hydration- continue IV PPI- GI consult appreciated and plan for EGD today. monitor H/H -severe sepsis ( leukocytosis/ tachycardia/ hypotension) due to LLL pneumonia ( health-care associated) received a dose of Vanco- will continue with Zosyn - follow the cultures -ESRD- on HD with mild hyperkalemia will consult nephrology for HD -history of hypertension with hypotensive episode; resolved after IV fluid- will hold BP meds for now -diabetes mellitus; accu-check with SSI- hold long acting insulin for now -history of CAD, CVA, hypothyroidism, bipolar disorder and neuropathy; resume home meds -DVT prophylaxis with SCD's- no chemical prophylaxis due to GI bleed Discussed Condition With ER physician and the patient. Physician Certification 2 Midnight Certification Type: Admission for Inpatient Services Order for Inpatient Services The services are ordered in accordance with Medicare regulations or non- Medicare payer requirements, as applicable. In the case of services not specified as inpatient-only, they are appropriately provided as inpatient services in accordance with the 2-midnight benchmark. Estimated LOS (days): 2 days is the estimated time the patient will need to remain in the hospital, assuming treatment plan goals are met and no additional complications. Post-Hospital Plan: SNF Problem Qualifiers (1) GI bleed: Qualified Code: K92.2 - Gastrointestinal hemorrhage, unspecified gastrointestinal hemorrhage type Promise Munoz MD Mar 06, 2016 12:24
[2016-03-06] MEDS ORDERED: DEXTROSE 50% IN WATER 50 ML VIAL(D50) IV PUSH PRN (12:30)
[2016-03-06] MEDS ORDERED: Custom Consult Pharmacy 1 EA OTHER SCH (12:30)
[2016-03-06] MEDS ORDERED: GLUCAGON 1 MG/ML VIAL OTHER PRN (12:30)
[2016-03-06] MEDS: SEVELAMER CARBONATE 800 MG TAB PO SCH ×2 (13:00→17:02)
[2016-03-06] MEDS ORDERED: RESP: ALBUTEROL 2.5 MG/IPRATROPIUM 0.5 MG NEB (PRN) NEB (13:30)
[2016-03-06 13:55] LABS: HEMATOCRIT 36.8 % (39.0-51.0)
[2016-03-06] MEDS ORDERED: GELATIN 12 MM/7 MM FOAM TOP PRN (15:45)
[2016-03-06] MEDS ORDERED: HEPARIN SODIUM - IV 10,000 UNITS/10 ML VIAL OTHER PRN (15:45)
[2016-03-06] MEDS ORDERED: NITROGLYCERIN 0.4 MG SL 25 TABS/BTL SL PRN (15:45)
[2016-03-06] MEDS ORDERED: ONDANSETRON HCL 4 MG/2 ML VIAL IV PRN (15:45)
[2016-03-06] MEDS ORDERED: diphenhydrAMINE HCL 25 MG CAP PO PRN (15:45)
[2016-03-06] MEDS ORDERED: NS 250 ML IV PRN (15:45)
[2016-03-06] MEDS ORDERED: cloNIDine HCL 0.1 MG TAB PO PRN (15:45)
[2016-03-06] MEDS ORDERED: HEPARIN SODIUM - IV 10,000 UNITS/10 ML VIAL IV FLUSH PRN ×2 (15:45)
[2016-03-06] MEDS ORDERED: SODIUM CHLOR 0.9% 1000 ML IV PRN ×2 (15:45)
[2016-03-06] MEDS ORDERED: MANNITOL 12.5 GM/50 ML VIAL IV PRN (15:45)
[2016-03-06] MEDS ORDERED: ACETAMINOPHEN 325 MG TAB PO PRN (15:45)
--- NOTE | 2016-03-06 16:36 | PD.CONS ---
HPI Service Nephrology Consult Requested By Primary Care Physician Non-Staff History of Present Illness Mr. Sharpe was admitted because of complaints of hematemesis. GI was consulted, and EGD is planned. Hemoglobin was 13 this morning, 7 hours later it was 11.8. He was due to dialysis today, however, it was found that his AV graft has thrombosed. I discussed with Dr. Sarkar, interventional radiology. Plan is for an attempt at declotting of the graft. Review of Systems Constitutional: COMPLAINS OF: Fatigue Cardiovascular: DENIES: Chest pain, Palpitations Gastrointestinal: COMPLAINS OF: Nausea, Vomiting Past Family Social History Allergies: Coded Allergies: Methadone (Verified Allergy, Severe, 03/06/16) *MDRO Multi-Drug Resistant Organism (Verified Allergy, Unknown, 03/06/16) ESBL (sputum & urine) - 06/2015 MRSA (urine) - 02/2012 Darvocet-N 100 (Verified Allergy, Unknown, 03/06/16) PATIENT WAS TOLD TO NEVER TAKE THIS MEDICATION Past Medical History Diabetes mellitus type 2 Hypertension Chronic nausea and vomiting End-stage renal disease Bipolar disorder Depression GERD Coronary artery disease Congestive heart failure Paranoid schizophrenia PVD Hyperlipidemia CVA with left-sided hemiparesis Peripheral neuropathy Hypothyroidism Arthritis Esophagitis Colon polyps Past Surgical History EGD Colonoscopy Cardiac catheterization Reported Medications Reported Medications Zofran (Ondansetron HCl) 8 Mg Tab 8 Mg PO QID PRN Zinc Oxide (Zinc Oxide (Topical)) 20 % Oin 1 Applic TD TID Tylenol (Acetaminophen) 325 Mg Tab 650 Mg PO Q4H PRN Trazodone (Trazodone HCl) 150 Mg Tab 150 Mg PO HS Silvadene Topical (Silver Sulfadiazine) 1 % Cream 1 Applic TOPICAL BID Risperdal (Risperidone) 0.5 Mg Tab 0.75 Mg PO Q12HR Renvela Liq (Sevelamer Carbonate) 2.4 Gm Pack 2.4 Gm PO TID Estrella-Rafa (B-Complex W/ C & Folic Acid) 1 Tab 1 Tab PO DAILY Omeprazole 20 Mg Tab 20 Mg PO DAILY Porter (Hydrocodone-Acetaminophen) 10-325 Mg Tab 1 Tab PO Q12HR PRN Lexapro (Escitalopram Oxalate) 20 Mg Tab 20 Mg PO HS Levemir Inj (Insulin Detemir) 1,000 unit/ 10 ML Vial 19 Units SQ AC BREAKFAST Do not mix with any other Insulin. Levemir Inj (Insulin Detemir) 1,000 unit/ 10 ML Vial 15 Units SQ HS Do not mix with any other Insulin. Lamictal (Lamotrigine) 200 Mg Tab 200 Mg PO HS Isosorbide Mononitrate ER (Isosorbide Mononitrate) 30 Mg Ryan 30 Mg PO DAILY Hydralazine (Hydralazine HCl) 10 Mg Tab 10 Mg PO TID Take with a meal Humalog Inj (Insulin Human Lispro) 1,000 Unit/10 Ml Vial 2-12 Units SQ ACHS Max dose at bedtime:( )units; sugars < 70,(0)units; sugars 150-199,(2)units; sugars 200-249,(4)units; sugars 250-299,(7)units; sugars 300-349,(10)units; sugars more than 349,(12)units. Gabapentin 100 Mg Cap 200 Mg PO DAILY Flomax (Tamsulosin HCl) 0.4 Mg Cap 0.4 Mg PO HS Duoneb (Ipratropium-Albuterol Neb) 0.5-2.5 Mg/3 Ml Neb 1 Nebule INH Q4HR NEB PRN Bisacodyl EC (Bisacodyl) 5 Mg Tabec 10 Mg PO HS Ascorbic Acid 500 Mg Tab 500 Mg PO Ambien (Zolpidem Tartrate) 10 Mg Tab 10 Mg PO HS PRN Active Ordered Medications Current Medications Medications (Trade) Dose Ordered Sig/Michael Route Start Time Stop Time Status Last Admin IV Flush 2 ml 2 ml UNSCH PRN IVF 03/06/16 06:15 Pantoprazole Sodium 80 mg/ Sodium Chloride 100 ml @ 10 mls/hr Q10H IV 03/06/16 07:30 03/06/16 11:05 (1/2 NS 1000 ml Inj) 1,000 ml @ 50 mls/hr Q20H ONCE IV 03/06/16 11:00 03/07/16 06:59 03/06/16 11:45 (Zofran Inj) 4 mg Q8HR PRN IV PUSH 03/06/16 10:45 (Lexapro) 20 mg HS PO 03/06/16 21:00 (Neurontin) 200 mg DAILY PO 03/07/16 09:00 (LaMICtal) 200 mg HS PO 03/06/16 21:00 (risperDAL) 0.75 mg Q12HR PO 03/06/16 21:00 (Renvela) 2,400 mg TID PO 03/06/16 13:00 (Flomax) 0.4 mg HS PO 03/06/16 21:00 (Desyrel) 150 mg HS PO 03/06/16 21:00 (D50w (Vial) Inj) 25 ml UNSCH PRN IV PUSH 03/06/16 12:30 Glucagon 1 mg 1 mg UNSCH PRN OTHER 03/06/16 12:30 Piperacillin Sod/ Tazobactam Sod 50 ml @ 100 mls/hr Q12H IV 03/06/16 21:00 ([facility]) 0 ml @ 0 mls/hr UNSCH OTHER 03/06/16 12:30 Acetaminophen 650 mg 650 mg Q4H PRN PO 03/06/16 12:45 (NS 1000 ml Inj) 1,000 ml @ 0 mls/hr TITRATE PRN IV 03/06/16 15:45 (Heparin Inj) 8,000 units UNSCH PRN IV FLUSH 03/06/16 15:45 Heparin Sodium (Porcine) 1000 units 1,000 units Q1H PRN IV FLUSH 03/06/16 15:45 Sodium Chloride 1,000 ml @ 200 mls/hr Q5H PRN IV 03/06/16 15:45 (NS 250 ml Inj) 200 ml @ 0 mls/hr UNSCH PRN IV 03/06/16 15:45 (Mannitol Inj) 12.5 gm UNSCH PRN IV 03/06/16 15:45 (Albumin 25% Inj) 25 gm UNSCH PRN IV 03/06/16 15:45 (NS Flush) 5 ml UNSCH PRN IVF 03/06/16 15:45 (Heparin Inj) Dwell Heparin to f... UNSCH PRN OTHER 03/06/16 15:45 (Gentamicin (Dialysis) Inj) 10 mg UNSCH PRN OTHER 03/06/16 15:45 (Gelfoam 12 Mm/7 Mm Top) 1 foam UNSCH PRN TOP 03/06/16 15:45 (Zofran Inj) 4 mg UNSCH PRN IV 03/06/16 15:45 (Benadryl) 25 mg UNSCH PRN PO 03/06/16 15:45 (Nitrostat Sl) 0.4 mg UNSCH PRN SL 03/06/16 15:45 (Catapres) 0.1 mg UNSCH PRN PO 03/06/16 15:45 (Epogen Inj) 4,000 units UNSCH PRN IV 03/06/16 15:45 Family History brother with colon cancer Social History no ETOH No smoking. Physical Exam Vital Signs Vital Signs Date Time Temp Pulse Resp B/P Pulse Ox O2 Delivery O2 Flow Rate FiO2 03/06/16 14:35 101 21 120/68 98 Nasal Cannula 2 03/06/16 12:31 94 20 128/66 96 03/06/16 08:49 98.3 102 138/53 98 Nasal Cannula 03/06/16 06:49 16 99 Nasal Cannula 3 03/06/16 05:22 106 18 86/53 94 Physical Exam GENERAL: he is lethargic, poorly responsive, almost non verbal. Mumbled a few words. SKIN: Warm and dry. HEAD: Normocephalic. EYES: No scleral icterus. No injection or drainage. NECK: Supple, trachea midline. No JVD or lymphadenopathy. CARDIOVASCULAR: Regular rate and rhythm without murmurs, gallops, or rubs. RESPIRATORY: Breath sounds equal bilaterally. No accessory muscle use. GASTROINTESTINAL: Abdomen soft, non-tender, nondistended. MUSCULOSKELETAL: No cyanosis, or edema. BACK: Nontender without obvious deformity. No CVA tenderness. AV graft in the left thigh is thrombosed. Laboratory Laboratory Tests Test 03/06/16 03/06/16 06:26 13:45 White Blood Count 15.0 Red Blood Count 4.51 Hemoglobin 13.0 11.8 Hematocrit 40.2 36.8 Mean Corpuscular Volume 89.0 Mean Corpuscular Hemoglobin 28.9 Mean Corpuscular Hemoglobin 32.5 Concent Red Cell Distribution Width 18.7 Platelet Count 311 Mean Platelet Volume 9.0 Neutrophils (%) (Auto) 79.0 Lymphocytes (%) (Auto) 11.8 Monocytes (%) (Auto) 8.8 Eosinophils (%) (Auto) 0.1 Basophils (%) (Auto) 0.3 Neutrophils # (Auto) 11.9 Lymphocytes # (Auto) 1.8 Monocytes # (Auto) 1.3 Eosinophils # (Auto) 0.0 Basophils # (Auto) 0.0 CBC Comment DIFF FINAL Differential Comment Prothrombin Time 11.5 Prothromb Time International 1.0 Ratio Activated Partial 25.7 Thromboplast Time Sodium Level 137 Potassium Level 5.5 Chloride Level 86 Carbon Dioxide Level 37.0 Anion Gap 14 Blood Urea Nitrogen 47 Creatinine 8.56 Estimat Glomerular Filtration 8 Rate Random Glucose 243 Lactic Acid Level 2.1 Calcium Level 10.0 Total Bilirubin 0.5 Aspartate Amino Transf 12 (AST/SGOT) Alanine Aminotransferase 44 (ALT/SGPT) Alkaline Phosphatase 88 Total Protein 10.3 Albumin 3.4 Lipase 104 Blood Type B POSITIVE Antibody Screen NEGATIVE Date/Time Procedure Status Source Growth 03/06/16 09:00 Aerobic Blood Culture Received Blood Peripheral Pending 03/06/16 09:00 Anaerobic Blood Culture Received Blood Peripheral Pending Result Diagram: 03/06/16 1345 03/06/16 0626 Assessment and Plan Problem List: (1) End stage renal disease Plan: plan was to dialyze him today, but AV access was thrombosed. I have consulted IR, discussed the case with Dr. Sarkar. We will await the outcome of declotting. If unsuccessful, he will need a CVC for dialysis. Dialysis nurses aware. Closely monitor fluid and electrolytes. Noted that his serum potassium is 5.5. Monitor. Repeat labs. (2) CVA, old, hemiparesis Plan: supportive care. (3) Congestive heart failure (CHF) Plan: currently compensated. (4) Metabolic bone disease Plan: Obtain phosphorus level. He is on Renvela, but currently NPO (5) Anemia Plan: Some drop in Hemoglobin is noted. GI has been consulted because of history of hematemesis. Transfusion as needed, currently not necessary. Epogen with dialysis as needed. (6) DM type 2 (diabetes mellitus, type 2) Plan: blood glucose high at 243, continue insulin coverage. Assessment and Plan Thanks for the consult. I will follow. Ricky Santana MD Mar 06, 2016 16:36
[2016-03-06] MEDS: INSULIN ASPART SUPPLEMENTAL SCALE SQ SCH ×2 (17:02→21:00)
[2016-03-06] MEDS ORDERED: LORazepam 2 MG/ML VIAL ONE (19:33)
--- NOTE | 2016-03-06 20:21 | RADRPT ---
EXAM DATE/TIME: 03/06/2016 19:18 [place] COMPARISON: No previous studies available for comparison. INDICATIONS : Dialysis patient with non functioningfistula. MEDICAL HISTORY : 1. DM 2. HTN ESRD 4. GERD 5. bi polar disorder 6. CAD 7. CHF 8. PVD 9. CVA SURGICAL HISTORY : 1. EGD 2. Lt groin av fistula 3. Heart cath 4. colonoscopy ENCOUNTER: Initial ACUITY: 2 days FLUORO TIME: 1.4 minutes ACCESS: Right internal jugular vein MEDICATION(S): 1.) 1 mg lorazepam (Ativan) IV DEVICE(S): 1.) 14 Indonesian dual lumen 15 cm Schon catheter PROCEDURE : 1. Ultrasound guided venipuncture. 2. Fluoroscopic guidance. 3. Central line placement. The risks, benefits and alternatives to the procedure were explained and verbal and written consent w as obtained. The site was prepped in sterile fashion. Full sterile technique was used, including ca p, mask, sterile gloves and gown and a large sterile sheet. Hand hygiene and 2% chlorhexidine prep w as utilized per protocol for cutaneous antisepsis with appropriate dry time for site. The skin and subcutaneous tissues were infiltrated with local anesthetic solution. A suitable site a zahra the vein was selected with ultrasound and fluoroscopic guidance. A small incision was made. Th e vein was accessed under direct ultrasound visualization using the micropuncture technique. The meme ropuncture set was exchanged for a 0.035 wire. The tract was dilated. The catheter was advanced int o position under direct fluoroscopic visualization. The catheter was fixed in place with suture and a sterile dressing was applied. The patient tolerated the procedure well and there were no complications. CONCLUSION: Uncomplicated line placement as above. Seun Sarkar MD on March 06, 2016 at 20:19 Board Certified Radiologist. This report was verified electronically.
[2016-03-06] MEDS: risperiDONE 0.5 MG TAB PO SCH (21:00)
[2016-03-06] MEDS: PIPERACIL-TAZO 2.25 GM PREMIX 50 ML IV SCH (21:00)
[2016-03-06] MEDS: ESCITALOPRAM OXALATE 20 MG TAB PO SCH (21:00)
[2016-03-06] MEDS: TAMSULOSIN HCL 0.4 MG CAP PO SCH (21:00)
[2016-03-06] MEDS: lamoTRIgine 100 MG TAB PO SCH (21:00)
[2016-03-06] MEDS: traZODone HCL 50 MG TAB PO SCH (21:00)
[2016-03-07] VITALS: BP 99/71; PULSE 84; RESP 18; TEMP 97.9; O2SAT 98
[2016-03-07] MEDS: PANTOPRAZOLE INJ 80 MG in SODIUM CHLORIDE 0.9% INJ 100 ML IV SCH ×3 (03:30→21:08)
[2016-03-07 04:00] VITALS: BP 106/72; PULSE 91; RESP 18; TEMP 97.8; O2SAT 97
[2016-03-07] MEDS: INSULIN ASPART SUPPLEMENTAL SCALE SQ SCH ×4 (05:17→21:06)
[2016-03-07 08:00] VITALS: BP 110/76; PULSE 87; PULSE 90; RESP 17; TEMP 96.8; O2SAT 99
[2016-03-07] MEDS ORDERED: NON-FORMULARY DRUG (B-Complex W/ C & Folic Acid (Rena-Vite) 1 TAB) PO SCH (09:00)
[2016-03-07] MEDS: PIPERACIL-TAZO 2.25 GM PREMIX 50 ML IV SCH ×2 (09:00→21:06)
[2016-03-07] MEDS: SEVELAMER CARBONATE 800 MG TAB PO SCH ×4 (09:00→17:53)
[2016-03-07] MEDS: risperiDONE 0.5 MG TAB PO SCH ×2 (09:00→21:07)
[2016-03-07] MEDS: GABAPENTIN 100 MG CAP PO SCH (09:00)
[2016-03-07 09:16] LABS: BICARBONATE 30.5 MEQ/L (21.0-32.0)
[2016-03-07 09:24] LABS: POTASSIUM 5.8 MEQ/L (3.5-5.1)
[2016-03-07] MEDS: EPOETIN ALFA 4,000 UNITS/ML VIAL IV PRN (10:03)
[2016-03-07] MEDS: GENTAMICIN SULFATE (DIALYSIS USE ONLY) 20 MG/2 ML VIAL OTHER PRN (10:03)
[2016-03-07] MEDS: ALBUMIN HUMAN 25% 25 GM/100 ML BAGP IV PRN ×2 (10:03→10:04)
--- NOTE | 2016-03-07 11:15 | HHI.NPPN ---
Subjective Interval History patient had VasCath placed yesterday, he was seen during dialysis. He remains lethargic, but I was able to wake him up briefly. He knew his name. He knew that he was in [facility]. He drifts back to sleep very easily. He was sweating, we checked his blood glucose, it was 173. Objective Data Data 03/06/16 03/07/16 19:00 07:00 Output Total 0 ml Balance 0 ml Output Hemodialysis 0 ml Vital Signs Date Time Temp Pulse Resp B/P Pulse Ox O2 Delivery O2 Flow Rate FiO2 03/07/16 08:00 96.8 87 17 110/76 99 03/07/16 04:00 97.8 91 18 106/72 97 03/07/16 00:00 97.9 84 18 99/71 98 03/06/16 20:00 97.0 101 18 119/53 95 03/06/16 16:00 98.0 94 18 109/55 98 03/06/16 14:35 101 21 120/68 98 Nasal Cannula 2 03/06/16 12:31 94 20 128/66 96 -: 03/06/16 1345 03/07/16 0807 Physical Exam General Appearance: No Acute Distress Neck Neck Exam: Neck Supple Pulmonary Resp Exam: Clear Bilaterally, Breath Sounds Equal Cardiology CV Exam: Regular, Normal Sinus Rhythm Gastrointestinal/Abdomen GI Exam: Soft, Non-Tender Musculoskeletal MS Exam: Joints Intact Extremeties Extremities Exam: No Edema Neurologic Neuro Remarks lethargic, poorly responsive. Left upper extremity contracture. Left sided weakness. Assessment/Plan Problem List: (1) End stage renal disease Plan: Dialysis today through VasCath. 2K, 2.5Ca. UF is 3 liters. As mentioned above, he is lethargic. poorly responsive. BP is stable. BFR is 350 ml/min. Will consult IR for declotting. (2) CVA, old, hemiparesis Plan: supportive care. (3) Congestive heart failure (CHF) Plan: currently compensated. (4) Metabolic bone disease Plan: His phosphorus level is very high. He may not be compliant. He is on Renvela. (5) Anemia Plan: Some drop in Hemoglobin is noted. GI has been consulted because of history of hematemesis. Transfusion as needed, currently not necessary. Epogen with dialysis as needed. (6) DM type 2 (diabetes mellitus, type 2) Plan: blood glucose high at 243, continue insulin coverage. Ricky Santana MD Mar 07, 2016 11:15
--- NOTE | 2016-03-07 12:16 | HHI.PR ---
Subjective Remarks had HD today. in no distress. denies pain. d/w the RN and no acute issues over night. Objective Vitals Vital Signs Date Time Temp Pulse Resp B/P Pulse Ox O2 Delivery O2 Flow Rate FiO2 03/07/16 08:00 96.8 87 17 110/76 99 03/07/16 04:00 97.8 91 18 106/72 97 03/07/16 00:00 97.9 84 18 99/71 98 03/06/16 20:00 97.0 101 18 119/53 95 03/06/16 16:00 98.0 94 18 109/55 98 03/06/16 14:35 101 21 120/68 98 Nasal Cannula 2 03/06/16 12:31 94 20 128/66 96 I/O 03/06/16 03/06/16 03/06/16 03/07/16 03/07/16 03/07/16 07:00 15:00 23:00 07:00 15:00 23:00 Output Total 0 ml 1800 ml Balance 0 ml -1800 ml Output Hemodialysis 0 ml 1800 ml Result Diagram: 03/06/16 1345 03/07/16 0807 Imaging Last Impressions Chest X-Ray 03/06/16 0604 Signed Impressions: Service Date/Time: Sunday, March 06, 2016 06:18 - CONCLUSION: Consolidative infiltrate lower lateral left lung. Lito Enamorado MD Abdomen/Pelvis CT 03/06/16 0604 Signed Impressions: Service Date/Time: Sunday, March 06, 2016 06:29 - CONCLUSION: 1. Inhomogeneous liver probably fatty infiltration. This could be further evaluated by CT scan with IV contrast in this dialysis patient. 2. Large hiatal hernia. 3. Small shrunken kidneys consistent with a history of dialysis. Felix Isaac MD FACR Catheter Placement X-Ray 03/06/16 0000 Signed Impressions: Service Date/Time: Sunday, March 06, 2016 19:18 - CONCLUSION: Uncomplicated line placement as above. Seun Sarkar MD Objective Remarks GENERAL: This is a well-nourished, well-developed patient, in no apparent distress. CARDIOVASCULAR: Regular rate and regular rhythm without murmurs, gallops, or rubs. RESPIRATORY: Clear to auscultation. Breath sounds equal bilaterally. No wheezes , rales, or rhonchi. GASTROINTESTINAL: Abdomen soft, non-tender, nondistended. Normal, active bowel sounds MUSCULOSKELETAL: Extremities without clubbing, cyanosis, or edema. NEURO: Awake and alert with left hemiparesis Procedures vas-cath placement Medications and IVs Current Medications Ondansetron HCl (Zofran Inj) 4 mg ONCE ONCE IVP Last administered on 03/06/16 07:59; Start 03/06/16 at 06:15; Stop 03/06/16 at 06:16; Status DC Pantoprazole Sodium (Protonix Inj) 80 mg ONCE ONCE IVP Last administered on 07:59; Start 03/06/16 at 06:15; Stop 03/06/16 at 06:16; Status DC IV Flush (NS Flush) 2 ml UNSCH PRN IVF FLUSH AFTER USING IV ACCESS; Start at 06:15 Famotidine 20 mg 20 mg ONCE ONCE IV PUSH Last administered on 03/06/16 08:00; Start 03/06/16 at 06:15; Stop 03/06/16 at 06:16; Status DC Sodium Chloride 250 ml @ 250 mls/hr BOLUS ONCE IV Last administered on 07:58; Start 03/06/16 at 06:15; Stop 03/06/16 at 07:14; Status DC Pantoprazole Sodium 80 mg/ Sodium Chloride 100 ml @ 10 mls/hr Q10H IV Last administered on 03/06/16 17:02; Start 03/06/16 at 07:30 Vancomycin HCl 1000 mg/Sodium Chloride 250 ml @ 250 mls/hr ONCE STAT IV Last administered on 03/06/16 10:04; Start 03/06/16 at 08:42; Stop 03/06/16 at 09:41; Status DC Piperacillin Sod/ Tazobactam Sod 100 ml @ 200 mls/hr ONCE STAT IV Last administered on 03/06/16 09:06; Start 03/06/16 at 08:42; Stop 03/06/16 at 09:11; Status DC Sodium Chloride (1/2 NS 1000 ml Inj) 1,000 ml @ 50 mls/hr Q20H ONCE IV Last administered on 03/06/16 11:45; Start 03/06/16 at 11:00; Stop 03/07/16 at 06:59; Status DC Ondansetron HCl (Zofran Inj) 4 mg Q8HR PRN IV PUSH NAUSEA; Start 03/06/16 at 10: 45 Escitalopram Oxalate (Lexapro) 20 mg HS PO ; Start 03/06/16 at 21:00 Gabapentin (Neurontin) 200 mg DAILY PO ; Start 03/07/16 at 09:00 Albuterol/ Ipratropium (Duoneb Neb) 1 ampule Q4HR NEB PRN NEB WHEEZING; Start 03/06/16 at 13:30 Lamotrigine (LaMICtal) 200 mg HS PO ; Start 03/06/16 at 21:00 Risperidone (risperDAL) 0.75 mg Q12HR PO ; Start 03/06/16 at 21:00 Sevelamer Carbonate (Renvela) 2,400 mg TID PO ; Start 03/06/16 at 13:00 Tamsulosin HCl (Flomax) 0.4 mg HS PO ; Start 03/06/16 at 21:00 Trazodone HCl (Desyrel) 150 mg HS PO ; Start 03/06/16 at 21:00 Non-Formulary Medication 1 tab DAILY PO ; Start 03/07/16 at 09:00; Stop 03/07/16 at 09:00; Status DC Dextrose (D50w (Vial) Inj) 25 ml UNSCH PRN IV PUSH HYPOGLYCEMIA-SEE COMMENTS; Start 03/06/16 at 12:30 Glucagon (Glucagon Inj) 1 mg UNSCH PRN OTHER HYPOGLYCEMIA-SEE COMMENTS; Start 03/06/16 at 12:30 Insulin Aspart 1 1 ACHS SLIDING SCALE SQ Last administered on 03/06/16 17:02; Start 03/06/16 at 16:00 Piperacillin Sod/ Tazobactam Sod 50 ml @ 100 mls/hr Q12H IV Last administered on 03/06/16 21:00; Start 03/06/16 at 21:00 Pharmacy Profile Note ([facility]) 0 ml @ 0 mls/hr UNSCH OTHER ; Start 03/06/16 at 12:30 Acetaminophen 650 mg 650 mg Q4H PRN PO FEVER/PAIN; Start 03/06/16 at 12:45 Sodium Chloride (NS 1000 ml Inj) 1,000 ml @ 0 mls/hr TITRATE PRN IV WITH DIALYSIS; Start 03/06/16 at 15:45 Heparin Sodium (Porcine) (Heparin Inj) 8,000 units UNSCH PRN IV FLUSH WITH DIALYSIS; Start 03/06/16 at 15:45 Heparin Sodium (Porcine) 1000 units 1,000 units Q1H PRN IV FLUSH WITH DIALYSIS ; Start 03/06/16 at 15:45 Sodium Chloride 1,000 ml @ 200 mls/hr Q5H PRN IV WITH DIALYSIS; Start 03/06/16 at 15:45 Sodium Chloride (NS 250 ml Inj) 200 ml @ 0 mls/hr UNSCH PRN IV WITH DIALYSIS; Start 03/06/16 at 15:45 Mannitol (Mannitol Inj) 12.5 gm UNSCH PRN IV WITH DIALYSIS; Start 03/06/16 at 15 :45 Albumin Human (Albumin 25% Inj) 25 gm UNSCH PRN IV WITH DIALYSIS Last administered on 03/07/16 10:04; Start 03/06/16 at 15:45 IV Flush (NS Flush) 5 ml UNSCH PRN IVF WITH DIALYSIS; Start 03/06/16 at 15:45 Heparin Sodium (Porcine) (Heparin Inj) Dwell Heparin to f... UNSCH PRN OTHER WITH DIALYSIS Last administered on 03/07/16 10:04; Start 03/06/16 at 15:45 Gentamicin Sulfate (Gentamicin (Dialysis) Inj) 10 mg UNSCH PRN OTHER WITH DIALYSIS Last administered on 03/07/16 10:03; Start 03/06/16 at 15:45 Gelatin (Gelfoam 12 Mm/7 Mm Top) 1 foam UNSCH PRN TOP WITH DIALYSIS; Start 03/06 at 15:45 Ondansetron HCl (Zofran Inj) 4 mg UNSCH PRN IV NAUSEA OR VOMITING; Start at 15:45 Acetaminophen (Tylenol) 650 mg UNSCH X1 PRN PO WITH DIALYSIS; Start 03/06/16 at 15:45; Stop 04/05/16 at 15:44 Diphenhydramine HCl (Benadryl) 25 mg UNSCH PRN PO WITH DIALYSIS; Start 03/06/16 at 15:45 Nitroglycerin (Nitrostat Sl) 0.4 mg UNSCH PRN SL WITH DIALYSIS; Start 03/06/16 at 15:45 Clonidine (Catapres) 0.1 mg UNSCH PRN PO WITH DIALYSIS; Start 03/06/16 at 15:45 Epoetin Camilo (Epogen Inj) 4,000 units UNSCH PRN IV WITH DIALYSIS Last administered on 03/07/16 10:03; Start 03/06/16 at 15:45 Heparin Sodium (Porcine) (*HEPARIN INJ Periprocedural ONLY) 10,000 units STK- MED ONCE .ROUTE Last administered on 03/06/16 19:28; Start 03/06/16 at 19:28; Stop 03/06/16 at 19:29; Status DC Lorazepam (Ativan Inj) 2 mg STK-MED ONCE .ROUTE Last administered on 03/06/16 19:33; Start 03/06/16 at 19:33; Stop 03/06/16 at 19:34; Status DC A/P Assessment and Plan A/P - hematemesis continue IV PPI- GI consult appreciated and plan for EGD. monitor H/H -severe sepsis ( leukocytosis/ tachycardia/ hypotension) due to LLL pneumonia ( health-care associated) received a dose of Vanco- will continue with Zosyn ; will deescalate the antibiotic regimen if blood cultures remain negative. -ESRD- on HD with mild hyperkalemia with clotted AV graft s/p vasc-cath placement- IR consulted for thrombectomy. nephrology following. -history of hypertension with hypotensive episode; resolved after IV fluid- will hold BP meds for now -diabetes mellitus; accu-check with SSI- hold long acting insulin for now -history of CAD, CVA, hypothyroidism, bipolar disorder and neuropathy; resumed home meds -DVT prophylaxis with SCD's- no chemical prophylaxis due to GI bleed Promise Munoz MD Mar 07, 2016 12:16
[2016-03-07 16:00] VITALS: BP 112/68; PULSE 98; RESP 17; TEMP 98.4; O2SAT 96
[2016-03-07 20:00] VITALS: BP 103/64; PULSE 83; RESP 20; TEMP 98; O2SAT 100; O2SAT 98
[2016-03-07 20:12] VITALS: PULSE 83
[2016-03-07] MEDS: traZODone HCL 50 MG TAB PO SCH (21:07)
[2016-03-07] MEDS: ESCITALOPRAM OXALATE 20 MG TAB PO SCH (21:07)
[2016-03-07] MEDS: TAMSULOSIN HCL 0.4 MG CAP PO SCH (21:08)
[2016-03-07] MEDS: lamoTRIgine 100 MG TAB PO SCH (21:08)
[2016-03-08] VITALS (15 sets, daily range): BP systolic 90–129; BP diastolic 41–70; PULSE 68–90; RESP 17–20; TEMP 97.2–98.7; O2SAT 96–100
[2016-03-08] MEDS: INSULIN ASPART SUPPLEMENTAL SCALE SQ SCH ×5 (05:56→20:40)
[2016-03-08 07:12] LABS: MEAN CELL VOLUME 90.3 FL (80.0-100.0); MEAN CORPUSCULAR HEMOGLOBIN 29.2 PG (27.0-34.0); MEAN CORPUSCULAR HGB CONC 32.3 % (32.0-36.0); PLATELET COUNT 214 TH/MM3 (150-450); RED BLOOD COUNT 3.32 MIL/MM3 (4.50-5.90); RED CELL DISTRIBUTION WIDTH 18.1 % (11.6-17.2); WHITE BLOOD COUNT 9.8 TH/MM3 (4.0-11.0)
[2016-03-08 07:43] LABS: HEMO FLAGS AUTO DIFF
[2016-03-08 07:47] LABS: BANDS 1 % (0-6); EOSINOPHILS 3 % (0-4); NEUTROPHIL # MANUAL DIFF 5.5 TH/MM3 (1.8-7.7); POLYS (SEG NEUTROPHILS) 55 % (16-70); WBC DIFF SAMPLE 100
[2016-03-08 07:49] LABS: PLATELET ESTIMATE SMEAR NORMAL (NORMAL); PLATELET MORPHOLOGY NORMAL (NORMAL); SCAN/DIFF FINAL DIFF MANUAL
[2016-03-08] MEDS: SEVELAMER CARBONATE 800 MG TAB PO SCH ×3 (08:59→18:20)
[2016-03-08] MEDS: risperiDONE 0.5 MG TAB PO SCH ×2 (09:01→20:37)
[2016-03-08] MEDS: PIPERACIL-TAZO 2.25 GM PREMIX 50 ML IV SCH ×2 (09:02→20:35)
[2016-03-08] MEDS: PANTOPRAZOLE INJ 80 MG in SODIUM CHLORIDE 0.9% INJ 100 ML IV SCH ×2 (09:02→22:00)
[2016-03-08] MEDS: GABAPENTIN 100 MG CAP PO SCH (09:02)
[2016-03-08] MEDS ORDERED: PROPOFOL 200 MG/20 ML AMP IV ONE (11:17)
--- NOTE | 2016-03-08 11:27 | PD.PROCEDR ---
GI Procedure REFERRING PHYSICIAN Dr. Munoz PROCEDURE PERFORMED EGD with biopsy INDICATION FOR PROCEDURE GI bleed renal failure PROCEDURE: The procedure, risks and benefits were discussed with Mr. Sharpe and informed consent was obtained. Anesthesia sedated him with Diprivan. He was placed in the left lateral decubitus position. EGD: The Pentax videoscope was introduced through the oropharynx and advanced to the second portion of the duodenum under direct visualization. Retroflexion was performed in the stomach. FINDINGS: The esophagus there was distal esophageal mucosal erythema with friability and erosions consistent with severe grade D reflux esophagitis this was biopsied this was in the distal third of the esophagus the proximal portions were unremarkable The stomach there was a moderate size hiatal hernia otherwise gastric mucosa was unremarkable The duodenum this was normal ESTIMATED BLOOD LOSS: None SPECIMENS REMOVED: Esophageal sample COMPLICATIONS: None IMPRESSION: Severe grade D reflux esophagitis Mild to moderate hiatal hernia PLAN: Reflux precautions PPI Monitor labs [facility] 2 [facility] Mar 08, 2016 11:27
[2016-03-08] MEDS ORDERED: MIDAZOLAM HCL 5 MG/5 ML VIAL ONE (12:44)
[2016-03-08] MEDS ORDERED: fentaNYL CITRATE 250 MCG/5 ML AMP ONE (12:45)
[2016-03-08] MEDS ORDERED: IODIXANOL 320 MG/ML 50 ML VIAL (for RAD SPEC) IV ONE (14:54)
--- NOTE | 2016-03-08 15:14 | PD.RAD ---
Post Procedure Progress Note Pre Procedure Diagnosis: (1) End stage renal disease Post Procedure Diagnosis: (1) End stage renal disease Procedure Date: Mar 08, 2016 Supervising Radiologist: Seun Sarkar Proceduralist/Assist: RT Yun(R) Anesthesia: Local, Conscious Sedation Plan of Activity Patient to Unit: ROPU Patient Condition: Good See PACS Report for procedural detail/treatment Vascular-Venous Procedure Procedure 1 Procedure Site: Left Leg Procedure(s): AV Graft/Fistula Evaluation Access Access Site(s): Graft/Fistula Findings: clotted with mild venous stenosis treated with PROPERTY LOSS INSURANCE CLAIM ADJUSTER Seun Sarkar MD Mar 08, 2016 15:14
--- NOTE | 2016-03-08 15:54 | RADRPT ---
EXAM DATE/TIME: 03/08/2016 13:26 [place] COMPARISON: No previous studies available for comparison. INDICATIONS : Patient wit left thigh AVG is in need of evaluation and declotting of exisiting graft. MEDICAL HISTORY : History of ESRD, GI bleed, CAD, DM, HTN, CVA, COPD, CHF, PVD, bipolar disorder, paranoid schizophreni a, hyperlipidemia, hypothyroidism, esophagitis, colon polyps, hiatal hernia, left lower lobe pneumoni a. SURGICAL HISTORY : History of left AVG placement, diakysis ctahter placement, EGD with colonoscopy and biopsy, cardiac c atheterization. ENCOUNTER: Initial ACUITY: 2 days PAIN SCORE: 0/10 FLUORO TIME: 10.8 minutes ACCESS SITE: Left Femoral vein SEDATION TIME: 60 minutes CONTRAST: 1.) 45 cc Visipaque (iodixanol) MEDICATION(S): 1.) 0.5 mg midazolam (Versed) IV 2.) 50 mcg fentanyl (Sublimaze) IV DEVICE(S): 1.) Left AVG FILAMENT WELDER balloon Electromechanical Inspector 6.0mm x 40mm x 75cm 2.) Left AVG FILAMENT WELDER balloon Electromechanical Inspector 8.0mm x 60mm x 75cm PROCEDURE : 1. Ultrasound guided puncture of the arterial limb of the fistula. 2. Ultrasound guided puncture of the venous limb of the fistula. 3. Evaluation of dialysis graft. 4. Central venography 5. Mechanical thrombectomy of dialysis graft. 6. multifocal venous angioplasty 7. Conscious sedation with continuous EKG and oximetry monitoring. The risks, benefits and alternatives to the procedure were explained and verbal and written consent w as obtained. The site was prepped in sterile fashion. Full sterile technique was used, including cap, mask, steri le gloves and gown and a large sterile sheet. Hand hygiene and 2% chlorhexidine and/or betadine/alco hol prep was utilized per protocol for cutaneous antisepsis. The skin and subcutaneous tissues were infiltrated with local anesthetic solution. With ultrasound and fluoroscopic guidance the arterial limb of the fistula was punctured directed [place] the venous anastomosis and a 6 Arabic sheath was placed. A uTrail meenstein catheter was at advanced t hrough the clotted portion of the graft into the central venous system to confirm patency. This demo nstrates no evidence of central venous stenosis. A fistulogram was performed through the previously placed sheath demonstrating thrombus within the fistula. Following this, mechanical thrombectomy of the graft was performed using a partially inflated balloon and manual maceration techniques and angio plasty was then performed with a fully inflated 6 mm balloon at the level of the venous anastomosis. Followup angiography demonstrates resolution of the clot within the fistula. Attention was then turned to the arterial limb fistula. With ultrasound and and fluoroscopic guidanc e the venous limb of the fistula was punctured towards the arterial anastomosis and a 6 Arabic sheath was placed. A guidewire was advanced through the arterial anastomosis. The declotting balloon was g ently manipulated across the arterial anastomosis, gently inflated and retracted into the fistula to dislodge clot from the arterial limb. Followup examination the fistula demonstrates good flow through the fistula. Mild focal tapering was identified near the venous anastomosis within previously placed venous stents . It was also some mild residual eccentric thrombus present. An 8 mm x 6 cm angioplasty balloon was i ntroduced and used to dilate the venous stenosis and the area of residual clot. Completion venography revealed excellent resolution with wide patency of the entire graft and no evidence of residual anas tomotic or venous stenosis. The sheath were removed and hemostasis achieved with direct pressure. The patient tolerated the procedure well and there were no complications. Conscious sedation was per formed with the prescribed dosages and duration as above. EKG and oximetry remained stable throughou t the procedure. CONCLUSION: Uncomplicated declotting of thrombosed dialysis graft as described in detail above. Seun Sarkar MD on March 08, 2016 at 15:28 Board Certified Radiologist. This report was verified electronically.
--- NOTE | 2016-03-08 17:58 | HHI.PR ---
Subjective Remarks in no acute distress. complaining of some pain to the left leg. Objective Vitals Vital Signs Date Time Temp Pulse Resp B/P Pulse Ox O2 Delivery O2 Flow Rate FiO2 03/08/16 16:50 90 18 106/54 100 03/08/16 16:20 85 18 102/41 100 03/08/16 15:50 87 18 121/70 97 03/08/16 15:20 89 18 129/59 98 03/08/16 15:05 97.5 85 18 116/68 100 03/08/16 12:04 98.2 80 18 121/70 100 03/08/16 11:36 70 20 95/65 100 03/08/16 11:21 97.9 77 20 90/63 99 03/08/16 10:46 98.1 68 17 91/58 100 03/08/16 08:46 100 Nasal Cannula 3.00 03/08/16 08:03 98.1 68 17 91/58 100 03/08/16 08:00 74 03/08/16 04:00 98.7 77 20 103/60 99 03/08/16 00:00 97.8 85 20 99/60 100 03/07/16 20:12 83 03/07/16 20:00 98.0 83 20 103/64 100 03/07/16 20:00 98 I/O 03/07/16 03/07/16 03/07/16 03/08/16 03/08/16 03/08/16 07:00 15:00 23:00 07:00 15:00 23:00 Intake Total 500 ml 120 ml 220 ml Output Total 0 ml 1800 ml Balance 0 ml -1300 ml 120 ml 220 ml Intake Oral 500 ml 120 ml 220 ml Output Hemodialysis 0 ml 1800 ml # Voids 0 # Bowel Movements 0 Result Diagram: 03/08/16 0415 03/07/16 0807 Imaging Last Impressions Shunt Study 03/08/16 0000 Signed Impressions: Service Date/Time: Tuesday, March 08, 2016 13:26 - CONCLUSION: Uncomplicated declotting of thrombosed dialysis graft as described in detail above. Seun Sarkar MD Chest X-Ray 03/06/16 0604 Signed Impressions: Service Date/Time: Sunday, March 06, 2016 06:18 - CONCLUSION: Consolidative infiltrate lower lateral left lung. Lito Enamorado MD Abdomen/Pelvis CT 03/06/16 0604 Signed Impressions: Service Date/Time: Sunday, March 06, 2016 06:29 - CONCLUSION: 1. Inhomogeneous liver probably fatty infiltration. This could be further evaluated by CT scan with IV contrast in this dialysis patient. 2. Large hiatal hernia. 3. Small shrunken kidneys consistent with a history of dialysis. Felix Isaac MD FACR Catheter Placement X-Ray 03/06/16 0000 Signed Impressions: Service Date/Time: Sunday, March 06, 2016 19:18 - CONCLUSION: Uncomplicated line placement as above. Seun Sarkar MD Objective Remarks GENERAL: This is a well-nourished, well-developed patient, in no apparent distress. CARDIOVASCULAR: Regular rate and regular rhythm without murmurs, gallops, or rubs. RESPIRATORY: Clear to auscultation. Breath sounds equal bilaterally. No wheezes , rales, or rhonchi. GASTROINTESTINAL: Abdomen soft, non-tender, nondistended. Normal, active bowel sounds MUSCULOSKELETAL: Extremities without clubbing, cyanosis, or edema. NEURO: Awake and alert with left hemiparesis Procedures vas-cath placement declotting of the AV graft Medications and IVs Current Medications Ondansetron HCl (Zofran Inj) 4 mg ONCE ONCE IVP Last administered on 03/06/16 07:59; Start 03/06/16 at 06:15; Stop 03/06/16 at 06:16; Status DC Pantoprazole Sodium (Protonix Inj) 80 mg ONCE ONCE IVP Last administered on 07:59; Start 03/06/16 at 06:15; Stop 03/06/16 at 06:16; Status DC IV Flush (NS Flush) 2 ml UNSCH PRN IVF FLUSH AFTER USING IV ACCESS; Start at 06:15 Famotidine 20 mg 20 mg ONCE ONCE IV PUSH Last administered on 03/06/16 08:00; Start 03/06/16 at 06:15; Stop 03/06/16 at 06:16; Status DC Sodium Chloride 250 ml @ 250 mls/hr BOLUS ONCE IV Last administered on 07:58; Start 03/06/16 at 06:15; Stop 03/06/16 at 07:14; Status DC Pantoprazole Sodium 80 mg/ Sodium Chloride 100 ml @ 10 mls/hr Q10H IV Last administered on 03/08/16 09:02; Start 03/06/16 at 07:30 Vancomycin HCl 1000 mg/Sodium Chloride 250 ml @ 250 mls/hr ONCE STAT IV Last administered on 03/06/16 10:04; Start 03/06/16 at 08:42; Stop 03/06/16 at 09:41; Status DC Piperacillin Sod/ Tazobactam Sod 100 ml @ 200 mls/hr ONCE STAT IV Last administered on 03/06/16 09:06; Start 03/06/16 at 08:42; Stop 03/06/16 at 09:11; Status DC Sodium Chloride (1/2 NS 1000 ml Inj) 1,000 ml @ 50 mls/hr Q20H ONCE IV Last administered on 03/06/16 11:45; Start 03/06/16 at 11:00; Stop 03/07/16 at 06:59; Status DC Ondansetron HCl (Zofran Inj) 4 mg Q8HR PRN IV PUSH NAUSEA; Start 03/06/16 at 10: 45 Escitalopram Oxalate (Lexapro) 20 mg HS PO Last administered on 03/07/16 21:07 ; Start 03/06/16 at 21:00 Gabapentin (Neurontin) 200 mg DAILY PO Last administered on 03/08/16 09:02; Start 03/07/16 at 09:00 Albuterol/ Ipratropium (Duoneb Neb) 1 ampule Q4HR NEB PRN NEB WHEEZING; Start 03/06/16 at 13:30 Lamotrigine (LaMICtal) 200 mg HS PO Last administered on 03/07/16 21:08; Start 03/06/16 at 21:00 Risperidone (risperDAL) 0.75 mg Q12HR PO Last administered on 03/08/16 09:01; Start 03/06/16 at 21:00 Sevelamer Carbonate (Renvela) 2,400 mg TID PO Last administered on 03/07/16 13: 00; Start 03/06/16 at 13:00 Tamsulosin HCl (Flomax) 0.4 mg HS PO Last administered on 03/07/16 21:08; Start 03/06/16 at 21:00 Trazodone HCl (Desyrel) 150 mg HS PO Last administered on 03/07/16 21:07; Start 03/06/16 at 21:00 Non-Formulary Medication 1 tab DAILY PO ; Start 03/07/16 at 09:00; Stop 03/07/16 at 09:00; Status DC Dextrose (D50w (Vial) Inj) 25 ml UNSCH PRN IV PUSH HYPOGLYCEMIA-SEE COMMENTS; Start 03/06/16 at 12:30 Glucagon (Glucagon Inj) 1 mg UNSCH PRN OTHER HYPOGLYCEMIA-SEE COMMENTS; Start 03/06/16 at 12:30 Insulin Aspart 1 1 ACHS SLIDING SCALE SQ Last administered on 03/07/16 21:06; Start 03/06/16 at 16:00 Piperacillin Sod/ Tazobactam Sod 50 ml @ 100 mls/hr Q12H IV Last administered on 03/08/16 09:02; Start 03/06/16 at 21:00 Pharmacy Profile Note ([facility]) 0 ml @ 0 mls/hr UNSCH OTHER ; Start 03/06/16 at 12:30 Acetaminophen 650 mg 650 mg Q4H PRN PO FEVER/PAIN; Start 03/06/16 at 12:45 Sodium Chloride (NS 1000 ml Inj) 1,000 ml @ 0 mls/hr TITRATE PRN IV WITH DIALYSIS; Start 03/06/16 at 15:45 Heparin Sodium (Porcine) (Heparin Inj) 8,000 units UNSCH PRN IV FLUSH WITH DIALYSIS; Start 03/06/16 at 15:45 Heparin Sodium (Porcine) 1000 units 1,000 units Q1H PRN IV FLUSH WITH DIALYSIS ; Start 03/06/16 at 15:45 Sodium Chloride 1,000 ml @ 200 mls/hr Q5H PRN IV WITH DIALYSIS; Start 03/06/16 at 15:45 Sodium Chloride (NS 250 ml Inj) 200 ml @ 0 mls/hr UNSCH PRN IV WITH DIALYSIS; Start 03/06/16 at 15:45 Mannitol (Mannitol Inj) 12.5 gm UNSCH PRN IV WITH DIALYSIS; Start 03/06/16 at 15 :45 Albumin Human (Albumin 25% Inj) 25 gm UNSCH PRN IV WITH DIALYSIS Last administered on 03/07/16 10:04; Start 03/06/16 at 15:45 IV Flush (NS Flush) 5 ml UNSCH PRN IVF WITH DIALYSIS; Start 03/06/16 at 15:45 Heparin Sodium (Porcine) (Heparin Inj) Dwell Heparin to f... UNSCH PRN OTHER WITH DIALYSIS Last administered on 03/07/16 10:04; Start 03/06/16 at 15:45 Gentamicin Sulfate (Gentamicin (Dialysis) Inj) 10 mg UNSCH PRN OTHER WITH DIALYSIS Last administered on 03/07/16 10:03; Start 03/06/16 at 15:45 Gelatin (Gelfoam 12 Mm/7 Mm Top) 1 foam UNSCH PRN TOP WITH DIALYSIS; Start 03/06 at 15:45 Ondansetron HCl (Zofran Inj) 4 mg UNSCH PRN IV NAUSEA OR VOMITING; Start at 15:45 Acetaminophen (Tylenol) 650 mg UNSCH X1 PRN PO WITH DIALYSIS; Start 03/06/16 at 15:45; Stop 04/05/16 at 15:44 Diphenhydramine HCl (Benadryl) 25 mg UNSCH PRN PO WITH DIALYSIS; Start 03/06/16 at 15:45 Nitroglycerin (Nitrostat Sl) 0.4 mg UNSCH PRN SL WITH DIALYSIS; Start 03/06/16 at 15:45 Clonidine (Catapres) 0.1 mg UNSCH PRN PO WITH DIALYSIS; Start 03/06/16 at 15:45 Epoetin Camilo (Epogen Inj) 4,000 units UNSCH PRN IV WITH DIALYSIS Last administered on 03/07/16 10:03; Start 03/06/16 at 15:45 Heparin Sodium (Porcine) (*HEPARIN INJ Periprocedural ONLY) 10,000 units STK- MED ONCE .ROUTE Last administered on 03/06/16 19:28; Start 03/06/16 at 19:28; Stop 03/06/16 at 19:29; Status DC Lorazepam (Ativan Inj) 2 mg STK-MED ONCE .ROUTE Last administered on 03/06/16 19:33; Start 03/06/16 at 19:33; Stop 03/06/16 at 19:34; Status DC Propofol (Diprivan 200 Mg/20 ml Inj) 50 mg STK-MED ONCE IV ; Start 03/08/16 at 11:17; Stop 03/08/16 at 11:29; Status DC Midazolam HCl (Versed Inj) 5 mg STK-MED ONCE .ROUTE Last administered on 12:44; Start 03/08/16 at 12:44; Stop 03/08/16 at 12:45; Status DC Fentanyl Citrate (fentaNYL INJ) 250 mcg STK-MED ONCE .ROUTE Last administered on 03/08/16 12:45; Start 03/08/16 at 12:45; Stop 03/08/16 at 12:46; Status DC Heparin Sodium (Porcine) (*HEPARIN INJ Periprocedural ONLY) 10,000 units STK- MED ONCE .ROUTE Last administered on 03/08/16 14:08; Start 03/08/16 at 14:08; Stop 03/08/16 at 14:09; Status DC Iodixanol (Visipaque 320 Inj) 45 ml STK-MED ONCE IV Last administered on 14:54; Start 03/08/16 at 14:54; Stop 03/08/16 at 14:55; Status DC A/P Assessment and Plan A/P - hematemesis s/p EGD with severe reflux esophagitis- continue PPI monitor H/H -severe sepsis ( leukocytosis/ tachycardia/ hypotension) due to LLL pneumonia ( health-care associated) received a dose of Vanco- will continue with Zosyn ; will deescalate the antibiotic regimen soon if blood cultures remain negative. -ESRD- on HD with clotted AV graft s/p vasc-cath placement and declotting of the AV graft- nephrology following. -history of hypertension with hypotensive episode; resolved after IV fluid- will hold BP meds for now -diabetes mellitus; accu-check with SSI- hold long acting insulin for now -history of CAD, CVA, hypothyroidism, bipolar disorder and neuropathy; resumed home meds -DVT prophylaxis with SCD's- no chemical prophylaxis due to GI bleed -consult PT Promise Munoz MD Mar 08, 2016 17:58
--- NOTE | 2016-03-08 19:46 | HHI.NPPN ---
Subjective Interval History patient underwent EGD and later declotting of the thigh AVG. Dialysis will be tomorrow. Objective Data Data 03/07/16 03/08/16 19:00 07:00 Intake Total 620 ml 220 ml Output Total 1800 ml Balance -1180 ml 220 ml Intake Oral 620 ml 220 ml Hemodialysis 1800 ml # Voids 0 # Bowel Movements 0 Vital Signs Date Time Temp Pulse Resp B/P Pulse Ox O2 Delivery O2 Flow Rate FiO2 03/08/16 17:00 98.0 89 18 108/56 100 03/08/16 16:50 90 18 106/54 100 03/08/16 16:20 85 18 102/41 100 03/08/16 15:50 87 18 121/70 97 03/08/16 15:20 89 18 129/59 98 03/08/16 15:05 97.5 85 18 116/68 100 03/08/16 12:04 98.2 80 18 121/70 100 03/08/16 11:36 70 20 95/65 100 03/08/16 11:21 97.9 77 20 90/63 99 03/08/16 10:46 98.1 68 17 91/58 100 03/08/16 08:46 100 Nasal Cannula 3.00 03/08/16 08:03 98.1 68 17 91/58 100 03/08/16 08:00 74 03/08/16 04:00 98.7 77 20 103/60 99 03/08/16 00:00 97.8 85 20 99/60 100 03/07/16 20:12 83 03/07/16 20:00 98.0 83 20 103/64 100 03/07/16 20:00 98 -: 03/08/16 0415 03/07/16 0807 Physical Exam General Appearance: No Acute Distress Neck Neck Exam: Neck Supple Pulmonary Resp Exam: Clear Bilaterally, Breath Sounds Equal Cardiology CV Exam: Regular, Normal Sinus Rhythm Gastrointestinal/Abdomen GI Exam: Soft, Non-Tender Musculoskeletal MS Exam: Joints Intact Extremeties Extremities Exam: No Edema Neurologic Neuro Remarks lethargic, poorly responsive. Left upper extremity contracture. Left sided weakness. Assessment/Plan Problem List: (1) End stage renal disease Plan: Dialysis will be tomorrow. We will use AVG and if successful, remove Vascath. (2) CVA, old, hemiparesis Plan: supportive care. (3) Congestive heart failure (CHF) Plan: currently compensated. (4) Metabolic bone disease Plan: His phosphorus level is very high. He may not be compliant. He is on Renvela. (5) Anemia Plan: Some drop in Hemoglobin is noted. GI has been consulted because of history of hematemesis. Transfusion as needed, underwent EGD (6) DM type 2 (diabetes mellitus, type 2) Plan: blood glucose high at 243, continue insulin coverage. Ricky Santana MD Mar 08, 2016 19:46
[2016-03-08] MEDS: TAMSULOSIN HCL 0.4 MG CAP PO SCH (20:35)
[2016-03-08] MEDS: lamoTRIgine 100 MG TAB PO SCH (20:35)
[2016-03-08] MEDS: ESCITALOPRAM OXALATE 20 MG TAB PO SCH (20:36)
[2016-03-08] MEDS: traZODone HCL 50 MG TAB PO SCH (20:37)
[2016-03-09] VITALS (9 sets, daily range): BP systolic 90–107; BP diastolic 53–60; PULSE 74–93; RESP 18–20; TEMP 97.6–98.4; O2SAT 93–97
[2016-03-09] MEDS: PANTOPRAZOLE INJ 80 MG in SODIUM CHLORIDE 0.9% INJ 100 ML IV SCH (05:25)
[2016-03-09] MEDS: INSULIN ASPART SUPPLEMENTAL SCALE SQ SCH ×4 (05:39→20:30)
[2016-03-09 07:46] LABS: HEMATOCRIT 32.3 % (39.0-51.0); MEAN CELL VOLUME 91.5 FL (80.0-100.0); MEAN CORPUSCULAR HEMOGLOBIN 28.6 PG (27.0-34.0); MEAN CORPUSCULAR HGB CONC 31.2 % (32.0-36.0); PLATELET COUNT 202 TH/MM3 (150-450); RED BLOOD COUNT 3.53 MIL/MM3 (4.50-5.90); RED CELL DISTRIBUTION WIDTH 17.7 % (11.6-17.2); REVIEW FLAG FINAL
[2016-03-09 08:04] LABS: BICARBONATE 26.4 MEQ/L (21.0-32.0); POTASSIUM 4.2 MEQ/L (3.5-5.1)
[2016-03-09] MEDS: SEVELAMER CARBONATE 800 MG TAB PO SCH ×3 (09:00→16:11)
[2016-03-09] MEDS: GABAPENTIN 100 MG CAP PO SCH (09:10)
[2016-03-09] MEDS: risperiDONE 0.5 MG TAB PO SCH ×2 (09:11→20:35)
[2016-03-09] MEDS: PIPERACIL-TAZO 2.25 GM PREMIX 50 ML IV SCH (09:11)
--- NOTE | 2016-03-09 10:13 | HHI.PR ---
Subjective Remarks in no acute distress. has some pain to the left leg. d/w the RN. Objective Vitals Vital Signs Date Time Temp Pulse Resp B/P Pulse Ox O2 Delivery O2 Flow Rate FiO2 03/09/16 08:00 74 03/09/16 03:43 97.6 93 18 107/58 96 03/08/16 23:28 97.9 87 18 90/51 97 03/08/16 20:45 Nasal Cannula 3.00 03/08/16 20:22 97.2 89 18 99/65 96 03/08/16 17:00 98.0 89 18 108/56 100 03/08/16 16:50 90 18 106/54 100 03/08/16 16:20 85 18 102/41 100 03/08/16 15:50 87 18 121/70 97 03/08/16 15:20 89 18 129/59 98 03/08/16 15:05 97.5 85 18 116/68 100 03/08/16 12:04 98.2 80 18 121/70 100 03/08/16 11:36 70 20 95/65 100 03/08/16 11:21 97.9 77 20 90/63 99 03/08/16 10:46 98.1 68 17 91/58 100 I/O 03/08/16 03/08/16 03/08/16 03/09/16 03/09/16 03/09/16 07:00 15:00 23:00 07:00 15:00 23:00 Intake Total 220 ml 120 ml 720 ml 120 ml Output Total 0 ml 0 ml 0 ml Balance 220 ml 120 ml 720 ml 120 ml Intake Oral 220 ml 120 ml 720 ml 120 ml Output Urine Total 0 ml 0 ml 0 ml # Bowel Movements 1 0 1 Result Diagram: 03/09/1621 03/09/16720 Imaging Last Impressions Shunt Study 03/08/16 0000 Signed Impressions: Service Date/Time: Tuesday, March 08, 2016 13:26 - CONCLUSION: Uncomplicated declotting of thrombosed dialysis graft as described in detail above. Seun Sarkar MD Chest X-Ray 03/06/16 0604 Signed Impressions: Service Date/Time: Sunday, March 06, 2016 06:18 - CONCLUSION: Consolidative infiltrate lower lateral left lung. Lito Enamorado MD Abdomen/Pelvis CT 03/06/16 0604 Signed Impressions: Service Date/Time: Sunday, March 06, 2016 06:29 - CONCLUSION: 1. Inhomogeneous liver probably fatty infiltration. This could be further evaluated by CT scan with IV contrast in this dialysis patient. 2. Large hiatal hernia. 3. Small shrunken kidneys consistent with a history of dialysis. Felix Isaac MD FACR Catheter Placement X-Ray 03/06/16 0000 Signed Impressions: Service Date/Time: Sunday, March 06, 2016 19:18 - CONCLUSION: Uncomplicated line placement as above. Seun Sarkar MD Objective Remarks GENERAL: This is a well-nourished, well-developed patient, in no apparent distress. CARDIOVASCULAR: Regular rate and regular rhythm without murmurs, gallops, or rubs. RESPIRATORY: Clear to auscultation. Breath sounds equal bilaterally. No wheezes , rales, or rhonchi. GASTROINTESTINAL: Abdomen soft, non-tender, nondistended. Normal, active bowel sounds MUSCULOSKELETAL: Extremities without clubbing, cyanosis, or edema. NEURO: Awake and alert with left hemiparesis Procedures vas-cath placement declotting of the AV graft Medications and IVs Current Medications Ondansetron HCl (Zofran Inj) 4 mg ONCE ONCE IVP Last administered on 03/06/16 07:59; Start 03/06/16 at 06:15; Stop 03/06/16 at 06:16; Status DC Pantoprazole Sodium (Protonix Inj) 80 mg ONCE ONCE IVP Last administered on 07:59; Start 03/06/16 at 06:15; Stop 03/06/16 at 06:16; Status DC IV Flush (NS Flush) 2 ml UNSCH PRN IVF FLUSH AFTER USING IV ACCESS; Start at 06:15 Famotidine 20 mg 20 mg ONCE ONCE IV PUSH Last administered on 03/06/16 08:00; Start 03/06/16 at 06:15; Stop 03/06/16 at 06:16; Status DC Sodium Chloride 250 ml @ 250 mls/hr BOLUS ONCE IV Last administered on 07:58; Start 03/06/16 at 06:15; Stop 03/06/16 at 07:14; Status DC Pantoprazole Sodium 80 mg/ Sodium Chloride 100 ml @ 10 mls/hr Q10H IV Last administered on 03/08/16 22:00; Start 03/06/16 at 07:30 Vancomycin HCl 1000 mg/Sodium Chloride 250 ml @ 250 mls/hr ONCE STAT IV Last administered on 03/06/16 10:04; Start 03/06/16 at 08:42; Stop 03/06/16 at 09:41; Status DC Piperacillin Sod/ Tazobactam Sod 100 ml @ 200 mls/hr ONCE STAT IV Last administered on 03/06/16 09:06; Start 03/06/16 at 08:42; Stop 03/06/16 at 09:11; Status DC Sodium Chloride (1/2 NS 1000 ml Inj) 1,000 ml @ 50 mls/hr Q20H ONCE IV Last administered on 03/06/16 11:45; Start 03/06/16 at 11:00; Stop 03/07/16 at 06:59; Status DC Ondansetron HCl (Zofran Inj) 4 mg Q8HR PRN IV PUSH NAUSEA; Start 03/06/16 at 10: 45 Escitalopram Oxalate (Lexapro) 20 mg HS PO Last administered on 03/08/16 20:36 ; Start 03/06/16 at 21:00 Gabapentin (Neurontin) 200 mg DAILY PO Last administered on 03/09/16 09:10; Start 03/07/16 at 09:00 Albuterol/ Ipratropium (Duoneb Neb) 1 ampule Q4HR NEB PRN NEB WHEEZING; Start 03/06/16 at 13:30 Lamotrigine (LaMICtal) 200 mg HS PO Last administered on 03/08/16 20:35; Start 03/06/16 at 21:00 Risperidone (risperDAL) 0.75 mg Q12HR PO Last administered on 03/09/16 09:11; Start 03/06/16 at 21:00 Sevelamer Carbonate (Renvela) 2,400 mg TID PO Last administered on 03/09/16 09 :00; Start 03/06/16 at 13:00 Tamsulosin HCl (Flomax) 0.4 mg HS PO Last administered on 03/08/16 20:35; Start 03/06/16 at 21:00 Trazodone HCl (Desyrel) 150 mg HS PO Last administered on 03/08/16 20:37; Start 03/06/16 at 21:00 Non-Formulary Medication 1 tab DAILY PO ; Start 03/07/16 at 09:00; Stop 03/07/16 at 09:00; Status DC Dextrose (D50w (Vial) Inj) 25 ml UNSCH PRN IV PUSH HYPOGLYCEMIA-SEE COMMENTS; Start 03/06/16 at 12:30 Glucagon (Glucagon Inj) 1 mg UNSCH PRN OTHER HYPOGLYCEMIA-SEE COMMENTS; Start 03/06/16 at 12:30 Insulin Aspart 1 1 ACHS SLIDING SCALE SQ Last administered on 03/09/16 05:39 ; Start 03/06/16 at 16:00 Piperacillin Sod/ Tazobactam Sod 50 ml @ 100 mls/hr Q12H IV Last administered on 03/09/16 09:11; Start 03/06/16 at 21:00 Pharmacy Profile Note ([facility]) 0 ml @ 0 mls/hr UNSCH OTHER ; Start 03/06/16 at 12:30 Acetaminophen 650 mg 650 mg Q4H PRN PO FEVER/PAIN; Start 03/06/16 at 12:45 Sodium Chloride (NS 1000 ml Inj) 1,000 ml @ 0 mls/hr TITRATE PRN IV WITH DIALYSIS; Start 03/06/16 at 15:45 Heparin Sodium (Porcine) (Heparin Inj) 8,000 units UNSCH PRN IV FLUSH WITH DIALYSIS; Start 03/06/16 at 15:45 Heparin Sodium (Porcine) 1000 units 1,000 units Q1H PRN IV FLUSH WITH DIALYSIS ; Start 03/06/16 at 15:45 Sodium Chloride 1,000 ml @ 200 mls/hr Q5H PRN IV WITH DIALYSIS; Start 03/06/16 at 15:45 Sodium Chloride (NS 250 ml Inj) 200 ml @ 0 mls/hr UNSCH PRN IV WITH DIALYSIS; Start 03/06/16 at 15:45 Mannitol (Mannitol Inj) 12.5 gm UNSCH PRN IV WITH DIALYSIS; Start 03/06/16 at 15 :45 Albumin Human (Albumin 25% Inj) 25 gm UNSCH PRN IV WITH DIALYSIS Last administered on 03/07/16 10:04; Start 03/06/16 at 15:45 IV Flush (NS Flush) 5 ml UNSCH PRN IVF WITH DIALYSIS; Start 03/06/16 at 15:45 Heparin Sodium (Porcine) (Heparin Inj) Dwell Heparin to f... UNSCH PRN OTHER WITH DIALYSIS Last administered on 03/07/16 10:04; Start 03/06/16 at 15:45 Gentamicin Sulfate (Gentamicin (Dialysis) Inj) 10 mg UNSCH PRN OTHER WITH DIALYSIS Last administered on 03/07/16 10:03; Start 03/06/16 at 15:45 Gelatin (Gelfoam 12 Mm/7 Mm Top) 1 foam UNSCH PRN TOP WITH DIALYSIS; Start 03/06 at 15:45 Ondansetron HCl (Zofran Inj) 4 mg UNSCH PRN IV NAUSEA OR VOMITING; Start at 15:45 Acetaminophen (Tylenol) 650 mg UNSCH X1 PRN PO WITH DIALYSIS; Start 03/06/16 at 15:45; Stop 04/05/16 at 15:44 Diphenhydramine HCl (Benadryl) 25 mg UNSCH PRN PO WITH DIALYSIS; Start 03/06/16 at 15:45 Nitroglycerin (Nitrostat Sl) 0.4 mg UNSCH PRN SL WITH DIALYSIS; Start 03/06/16 at 15:45 Clonidine (Catapres) 0.1 mg UNSCH PRN PO WITH DIALYSIS; Start 03/06/16 at 15:45 Epoetin Camilo (Epogen Inj) 4,000 units UNSCH PRN IV WITH DIALYSIS Last administered on 03/07/16 10:03; Start 03/06/16 at 15:45 Heparin Sodium (Porcine) (*HEPARIN INJ Periprocedural ONLY) 10,000 units STK- MED ONCE .ROUTE Last administered on 03/06/16 19:28; Start 03/06/16 at 19:28; Stop 03/06/16 at 19:29; Status DC Lorazepam (Ativan Inj) 2 mg STK-MED ONCE .ROUTE Last administered on 03/06/16 19:33; Start 03/06/16 at 19:33; Stop 03/06/16 at 19:34; Status DC Propofol (Diprivan 200 Mg/20 ml Inj) 50 mg STK-MED ONCE IV ; Start 03/08/16 at 11:17; Stop 03/08/16 at 11:29; Status DC Midazolam HCl (Versed Inj) 5 mg STK-MED ONCE .ROUTE Last administered on 12:44; Start 03/08/16 at 12:44; Stop 03/08/16 at 12:45; Status DC Fentanyl Citrate (fentaNYL INJ) 250 mcg STK-MED ONCE .ROUTE Last administered on 03/08/16 12:45; Start 03/08/16 at 12:45; Stop 03/08/16 at 12:46; Status DC Heparin Sodium (Porcine) (*HEPARIN INJ Periprocedural ONLY) 10,000 units STK- MED ONCE .ROUTE Last administered on 03/08/16 14:08; Start 03/08/16 at 14:08; Stop 03/08/16 at 14:09; Status DC Iodixanol (Visipaque 320 Inj) 45 ml STK-MED ONCE IV Last administered on 14:54; Start 03/08/16 at 14:54; Stop 03/08/16 at 14:55; Status DC A/P Assessment and Plan A/P - hematemesis s/p EGD with severe reflux esophagitis- continue PPI monitor H/H -severe sepsis ( leukocytosis/ tachycardia/ hypotension) due to LLL pneumonia ( health-care associated) blood cultures negative- will stop Zosyn and change to levaquin. -ESRD- on HD with clotted AV graft s/p vasc-cath placement and declotting of the AV graft- nephrology following. -history of hypertension with hypotensive episode; resolved after IV fluid- will hold BP meds for now -diabetes mellitus; accu-check with SSI- hold long acting insulin for now -history of CAD, CVA, hypothyroidism, bipolar disorder and neuropathy; resumed home meds -DVT prophylaxis with SCD's- no chemical prophylaxis due to GI bleed -consulted PT Promise Munoz MD Mar 09, 2016 10:13
[2016-03-09] MEDS ORDERED: Custom Consult Pharmacy 1 EA OTHER SCH (10:15)
[2016-03-09] MEDS ORDERED: LEVOFLOXACIN 750 MG/DEXTROSE 150 ML IV ONE ×2 (11:00→16:00)
--- NOTE | 2016-03-09 11:17 | HHI.NPPN ---
Subjective Interval History He is able to speak, but is confused. Successful declotting of AV graft on the left thigh. Objective Data Data 03/08/16 03/09/16 19:00 07:00 Intake Total 120 ml 840 ml Output Total 0 ml 0 ml Balance 120 ml 840 ml Intake Oral 120 ml 840 ml Output Urine Total 0 ml 0 ml # Bowel Movements 1 1 Vital Signs Date Time Temp Pulse Resp B/P Pulse Ox O2 Delivery O2 Flow Rate FiO2 03/09/16 10:06 96 Nasal Cannula 3.00 03/09/16 08:00 74 03/09/16 03:43 97.6 93 18 107/58 96 03/08/16 23:28 97.9 87 18 90/51 97 03/08/16 20:45 Nasal Cannula 3.00 03/08/16 20:22 97.2 89 18 99/65 96 03/08/16 17:00 98.0 89 18 108/56 100 03/08/16 16:50 90 18 106/54 100 03/08/16 16:20 85 18 102/41 100 03/08/16 15:50 87 18 121/70 97 03/08/16 15:20 89 18 129/59 98 03/08/16 15:05 97.5 85 18 116/68 100 03/08/16 12:04 98.2 80 18 121/70 100 03/08/16 11:36 70 20 95/65 100 03/08/16 11:21 97.9 77 20 90/63 99 -: 03/09/16 0721 03/09/16 0721 Physical Exam General Appearance: No Acute Distress Neck Neck Exam: Neck Supple Pulmonary Resp Exam: Clear Bilaterally, Breath Sounds Equal Cardiology CV Exam: Regular, Normal Sinus Rhythm Gastrointestinal/Abdomen GI Exam: Soft, Non-Tender Musculoskeletal MS Exam: Joints Intact Extremeties Extremities Exam: No Edema Neurologic Neuro Remarks Confused, disoriented. Left upper extremity contracture. Left sided weakness. Assessment/Plan Problem List: (1) End stage renal disease Plan: Dialysis today. To use AVG today. If we are able to successfully use AVG, vascath to be removed. (2) CVA, old, hemiparesis Plan: supportive care. (3) Congestive heart failure (CHF) Plan: currently compensated. (4) Metabolic bone disease Plan: His phosphorus level is very high. He may not be compliant. He is on Renvela which should be continued. (5) Anemia Plan: Some drop in Hemoglobin is noted. GI has been consulted because of history of hematemesis. Transfusion as needed, underwent EGD (6) DM type 2 (diabetes mellitus, type 2) Plan: blood glucose high at 243, continue insulin coverage. Ricky Santana MD Mar 09, 2016 11:17
[2016-03-09] MEDS: EPOETIN ALFA 4,000 UNITS/ML VIAL IV PRN (12:13)
[2016-03-09] MEDS: ALBUMIN HUMAN 25% 25 GM/100 ML BAGP IV PRN (12:13)
[2016-03-09] MEDS: GENTAMICIN SULFATE (DIALYSIS USE ONLY) 20 MG/2 ML VIAL OTHER PRN (12:14)
--- NOTE | 2016-03-09 17:08 | HHI.GIFU ---
Subjective Remarks Resting in bed. Eating dinner. Tolerating this well. No bleeding. No n/v. No abdominal pain. (Tita Infante) Objective Vitals I&O Vital Signs Date Time Temp Pulse Resp B/P Pulse Ox O2 Delivery O2 Flow Rate FiO2 03/09/16 10:06 96 Nasal Cannula 3.00 03/09/16 08:04 98.2 78 19 90/60 97 03/09/16 08:00 74 03/09/16 03:43 97.6 93 18 107/58 96 03/08/16 23:28 97.9 87 18 90/51 97 03/08/16 20:45 Nasal Cannula 3.00 03/08/16 20:22 97.2 89 18 99/65 96 I/O 03/08/16 03/08/16 03/08/16 03/09/16 03/09/16 03/09/16 07:00 15:00 23:00 07:00 15:00 23:00 Intake Total 220 ml 120 ml 720 ml 120 ml Output Total 0 ml 0 ml 0 ml 1500 ml Balance 220 ml 120 ml 720 ml 120 ml -1500 ml Intake Oral 220 ml 120 ml 720 ml 120 ml Output Urine Total 0 ml 0 ml 0 ml Hemodialysis 1500 ml # Bowel Movements 1 0 1 Laboratory Laboratory Tests Test 03/09/16 07:21 White Blood Count 7.0 Red Blood Count 3.53 Hemoglobin 10.1 Hematocrit 32.3 Mean Corpuscular Volume 91.5 Mean Corpuscular Hemoglobin 28.6 Mean Corpuscular Hemoglobin 31.2 Concent Red Cell Distribution Width 17.7 Platelet Count 202 Mean Platelet Volume 8.8 Sodium Level 137 Potassium Level 4.2 Chloride Level 97 Carbon Dioxide Level 26.4 Anion Gap 14 Blood Urea Nitrogen 46 Creatinine 8.93 Estimat Glomerular Filtration 7 Rate Random Glucose 190 Calcium Level 9.3 Date/Time Procedure Status Source Growth 03/06/16 09:00 Aerobic Blood Culture - Preliminary Resulted Blood Peripheral NO GROWTH IN 3 DAYS 03/06/16 09:00 Anaerobic Blood Culture - Preliminary Resulted Blood Peripheral NO GROWTH IN 3 DAYS Imaging Last Impressions Shunt Study 03/08/16 0000 Signed Impressions: Service Date/Time: Tuesday, March 08, 2016 13:26 - CONCLUSION: Uncomplicated declotting of thrombosed dialysis graft as described in detail above. Seun Sarkar MD Chest X-Ray 03/06/16 0604 Signed Impressions: Service Date/Time: Sunday, March 06, 2016 06:18 - CONCLUSION: Consolidative infiltrate lower lateral left lung. Lito Enamorado MD Abdomen/Pelvis CT 03/06/16 0604 Signed Impressions: Service Date/Time: Sunday, March 06, 2016 06:29 - CONCLUSION: 1. Inhomogeneous liver probably fatty infiltration. This could be further evaluated by CT scan with IV contrast in this dialysis patient. 2. Large hiatal hernia. 3. Small shrunken kidneys consistent with a history of dialysis. Felix Isaac MD FACR Catheter Placement X-Ray 03/06/16 0000 Signed Impressions: Service Date/Time: Sunday, March 06, 2016 19:18 - CONCLUSION: Uncomplicated line placement as above. Seun Sarkar MD Physical Exam HEENT: Normocephalic; atraumatic; no jaundice. Throat is clear. NECK: Neck is supple, no JVD, no lymphadenopathy. CHEST: CTA CARDIAC: RRR ABDOMEN: Soft, nondistended, nontender; no hepatosplenomegaly; bowel sounds are present in all four quadrants. EXTREMITIES: Right sided weakness. SKIN: Normal; no rash; no jaundice. [employer]: Lethargic and oriented times three. (Tita Infante) Assessment and Plan Plan ASSESSMENT: - Upper GI Bleed with coffee ground emesis. S/P EGD (03/08/16)---> Severe grade D reflux esophagitis, mild to moderate HH. Pathology pending. PPI. HH stable 10.1/32.3. No further n/v/bleeding. Tolerating diet. - Epigastric pain. PPI Improved. - Leukocytosis. Stable. - ESRD, HD Mondays, Wednesdays, Fridays per renal. - CAD, HTN, Hyperlipidemia, Hypothyroidism, Bipolar d/o per primary PLAN: - Renal diet - Await pathology - Cont. PPI - Monitor HH - Transfuse as necessary - Supportive care - EGD 2 months, ASA III to be done at hospital - GI will sign off, please reconsult as needed - Pt seen and examined by Dr. Rain and myself and this note is written on his behalf (Tita Infante) Physician Comments Patient seen and examined Agree with above Continue with current supportive care Monitor labs We will sign off (Sarwat Rain MD) Tita Infante Mar 09, 2016 17:08 Sarwat Rain MD Mar 09, 2016 21:43
[2016-03-09] MEDS: TAMSULOSIN HCL 0.4 MG CAP PO SCH (20:26)
[2016-03-09] MEDS: traZODone HCL 50 MG TAB PO SCH (20:27)
[2016-03-09] MEDS: lamoTRIgine 100 MG TAB PO SCH (20:27)
[2016-03-09] MEDS: ESCITALOPRAM OXALATE 20 MG TAB PO SCH (20:27)
[2016-03-09] MEDS: traMADol HCL 50 MG TAB PO PRN (20:36)
[2016-03-09] MEDS: ACETAMINOPHEN 325 MG TAB PO PRN (23:36)
[2016-03-10 03:55] VITALS: BP 99/63; PULSE 80; RESP 18; TEMP 98.1; O2SAT 100
[2016-03-10] MEDS: INSULIN ASPART SUPPLEMENTAL SCALE SQ SCH ×2 (05:34→11:00)
[2016-03-10] MEDS: ACETAMINOPHEN 325 MG TAB PO PRN (05:41)
[2016-03-10 08:00] VITALS: BP 89/51; PULSE 74; PULSE 81; RESP 24; TEMP 97.5; O2SAT 93
[2016-03-10] MEDS: risperiDONE 0.5 MG TAB PO SCH (08:12)
[2016-03-10] MEDS: SEVELAMER CARBONATE 800 MG TAB PO SCH (08:12)
[2016-03-10] MEDS: GABAPENTIN 100 MG CAP PO SCH (08:12)
[2016-03-10] MEDS: traMADol HCL 50 MG TAB PO PRN (08:13)
[2016-03-10] MEDS ORDERED: PANTOPRAZOLE SOD 40 MG DELAYED RELEASE TAB PO SCH (09:00)
--- NOTE | 2016-03-10 10:03 | HHI.PR ---
Subjective Remarks resting comfortably with no distress. has some pain to the left leg. Objective Vitals Vital Signs Date Time Temp Pulse Resp B/P Pulse Ox O2 Delivery O2 Flow Rate FiO2 03/10/16 08:00 97.5 81 24 89/51 93 03/10/16 03:55 98.1 80 18 99/63 100 03/09/16 23:00 98.4 82 18 95/53 93 03/09/16 19:41 93 03/09/16 19:34 97.8 91 18 106/57 96 03/09/16 17:50 96 Nasal Cannula 3.00 03/09/16 16:02 98.3 76 20 93/53 97 03/09/16 10:06 96 Nasal Cannula 3.00 I/O 03/09/16 03/09/16 03/09/16 03/10/16 03/10/16 03/10/16 07:00 15:00 23:00 07:00 15:00 23:00 Intake Total 120 ml 240 ml 240 ml Output Total 0 ml 1500 ml 0 ml 0 ml Balance 120 ml -1500 ml 240 ml 240 ml Intake Oral 120 ml 240 ml 240 ml Output Urine Total 0 ml 0 ml 0 ml Hemodialysis 1500 ml # Bowel Movements 1 0 1 Result Diagram: 03/09/16 0721 03/09/16 0721 Imaging Last Impressions Shunt Study 03/08/16 0000 Signed Impressions: Service Date/Time: Tuesday, March 08, 2016 13:26 - CONCLUSION: Uncomplicated declotting of thrombosed dialysis graft as described in detail above. Seun Sarkar MD Chest X-Ray 03/06/16 0604 Signed Impressions: Service Date/Time: Sunday, March 06, 2016 06:18 - CONCLUSION: Consolidative infiltrate lower lateral left lung. Lito Enamorado MD Abdomen/Pelvis CT 03/06/16 0604 Signed Impressions: Service Date/Time: Sunday, March 06, 2016 06:29 - CONCLUSION: 1. Inhomogeneous liver probably fatty infiltration. This could be further evaluated by CT scan with IV contrast in this dialysis patient. 2. Large hiatal hernia. 3. Small shrunken kidneys consistent with a history of dialysis. Felix Isaac MD FACR Catheter Placement X-Ray 03/06/16 0000 Signed Impressions: Service Date/Time: Sunday, March 06, 2016 19:18 - CONCLUSION: Uncomplicated line placement as above. Seun Sarkar MD Objective Remarks GENERAL: This is a well-nourished, well-developed patient, in no apparent distress. CARDIOVASCULAR: Regular rate and regular rhythm without murmurs, gallops, or rubs. RESPIRATORY: Clear to auscultation. Breath sounds equal bilaterally. No wheezes , rales, or rhonchi. GASTROINTESTINAL: Abdomen soft, non-tender, nondistended. Normal, active bowel sounds MUSCULOSKELETAL: Extremities without clubbing, cyanosis, or edema. NEURO: Awake and alert with left hemiparesis Procedures vas-cath placement declotting of the AV graft Medications and IVs Current Medications Ondansetron HCl (Zofran Inj) 4 mg ONCE ONCE IVP Last administered on 03/06/16 07:59; Start 03/06/16 at 06:15; Stop 03/06/16 at 06:16; Status DC Pantoprazole Sodium (Protonix Inj) 80 mg ONCE ONCE IVP Last administered on 07:59; Start 03/06/16 at 06:15; Stop 03/06/16 at 06:16; Status DC IV Flush (NS Flush) 2 ml UNSCH PRN IVF FLUSH AFTER USING IV ACCESS; Start at 06:15 Famotidine 20 mg 20 mg ONCE ONCE IV PUSH Last administered on 03/06/16 08:00; Start 03/06/16 at 06:15; Stop 03/06/16 at 06:16; Status DC Sodium Chloride 250 ml @ 250 mls/hr BOLUS ONCE IV Last administered on 07:58; Start 03/06/16 at 06:15; Stop 03/06/16 at 07:14; Status DC Pantoprazole Sodium 80 mg/ Sodium Chloride 100 ml @ 10 mls/hr Q10H IV Last administered on 03/08/16 22:00; Start 03/06/16 at 07:30; Stop 03/09/16 at 10:16; Status DC Vancomycin HCl 1000 mg/Sodium Chloride 250 ml @ 250 mls/hr ONCE STAT IV Last administered on 03/06/16 10:04; Start 03/06/16 at 08:42; Stop 03/06/16 at 09:41; Status DC Piperacillin Sod/ Tazobactam Sod 100 ml @ 200 mls/hr ONCE STAT IV Last administered on 03/06/16 09:06; Start 03/06/16 at 08:42; Stop 03/06/16 at 09:11; Status DC Sodium Chloride (03/01 NS 1000 ml Inj) 1,000 ml @ 50 mls/hr Q20H ONCE IV Last administered on 03/06/16 11:45; Start 03/06/16 at 11:00; Stop 03/07/16 at 06:59; Status DC Ondansetron HCl (Zofran Inj) 4 mg Q8HR PRN IV PUSH NAUSEA; Start 03/06/16 at 10: 45 Escitalopram Oxalate (Lexapro) 20 mg HS PO Last administered on 03/09/16 20:27 ; Start 03/06/16 at 21:00 Gabapentin (Neurontin) 200 mg DAILY PO Last administered on 03/10/16 08:12; Start 03/07/16 at 09:00 Albuterol/ Ipratropium (Duoneb Neb) 1 ampule Q4HR NEB PRN NEB WHEEZING; Start 03/06/16 at 13:30 Lamotrigine (LaMICtal) 200 mg HS PO Last administered on 03/09/16 20:27; Start 03/06/16 at 21:00 Risperidone (risperDAL) 0.75 mg Q12HR PO Last administered on 03/10/16 08:12; Start 03/06/16 at 21:00 Sevelamer Carbonate (Renvela) 2,400 mg TID PO Last administered on 03/10/16 08 :12; Start 03/06/16 at 13:00 Tamsulosin HCl (Flomax) 0.4 mg HS PO Last administered on 03/09/16 20:26; Start 03/06/16 at 21:00 Trazodone HCl (Desyrel) 150 mg HS PO Last administered on 03/09/16 20:27; Start 03/06/16 at 21:00 Non-Formulary Medication 1 tab DAILY PO ; Start 03/07/16 at 09:00; Stop 03/07/16 at 09:00; Status DC Dextrose (D50w (Vial) Inj) 25 ml UNSCH PRN IV PUSH HYPOGLYCEMIA-SEE COMMENTS; Start 03/06/16 at 12:30 Glucagon (Glucagon Inj) 1 mg UNSCH PRN OTHER HYPOGLYCEMIA-SEE COMMENTS; Start 03/06/16 at 12:30 Insulin Aspart 1 1 ACHS SLIDING SCALE SQ Last administered on 03/09/16 20:30 ; Start 03/06/16 at 16:00 Piperacillin Sod/ Tazobactam Sod 50 ml @ 100 mls/hr Q12H IV Last administered on 03/09/16 09:11; Start 03/06/16 at 21:00; Stop 03/09/16 at 10:14; Status DC Pharmacy Profile Note ([facility]) 0 ml @ 0 mls/hr UNSCH OTHER ; Start 03/06/16 at 12:30 Acetaminophen 650 mg 650 mg Q4H PRN PO FEVER/PAIN Last administered on 05:41; Start 03/06/16 at 12:45 Sodium Chloride (NS 1000 ml Inj) 1,000 ml @ 0 mls/hr TITRATE PRN IV WITH DIALYSIS Last administered on 03/09/16 12:15; Start 03/06/16 at 15:45 Heparin Sodium (Porcine) (Heparin Inj) 8,000 units UNSCH PRN IV FLUSH WITH DIALYSIS; Start 03/06/16 at 15:45 Heparin Sodium (Porcine) 1000 units 1,000 units Q1H PRN IV FLUSH WITH DIALYSIS ; Start 03/06/16 at 15:45 Sodium Chloride 1,000 ml @ 200 mls/hr Q5H PRN IV WITH DIALYSIS; Start 03/06/16 at 15:45 Sodium Chloride (NS 250 ml Inj) 200 ml @ 0 mls/hr UNSCH PRN IV WITH DIALYSIS; Start 03/06/16 at 15:45 Mannitol (Mannitol Inj) 12.5 gm UNSCH PRN IV WITH DIALYSIS; Start 03/06/16 at 15 :45 Albumin Human (Albumin 25% Inj) 25 gm UNSCH PRN IV WITH DIALYSIS Last administered on 03/09/16 12:13; Start 03/06/16 at 15:45 IV Flush (NS Flush) 5 ml UNSCH PRN IVF WITH DIALYSIS; Start 03/06/16 at 15:45 Heparin Sodium (Porcine) (Heparin Inj) Dwell Heparin to f... UNSCH PRN OTHER WITH DIALYSIS Last administered on 03/07/16 10:04; Start 03/06/16 at 15:45 Gentamicin Sulfate (Gentamicin (Dialysis) Inj) 10 mg UNSCH PRN OTHER WITH DIALYSIS Last administered on 03/09/16 12:14; Start 03/06/16 at 15:45 Gelatin (Gelfoam 12 Mm/7 Mm Top) 1 foam UNSCH PRN TOP WITH DIALYSIS; Start 03/06 at 15:45 Ondansetron HCl (Zofran Inj) 4 mg UNSCH PRN IV NAUSEA OR VOMITING; Start at 15:45 Acetaminophen (Tylenol) 650 mg UNSCH X1 PRN PO WITH DIALYSIS Last administered on 03/09/16 12:15; Start 03/06/16 at 15:45; Stop 04/05/16 at 15:44 Diphenhydramine HCl (Benadryl) 25 mg UNSCH PRN PO WITH DIALYSIS; Start 03/06/16 at 15:45 Nitroglycerin (Nitrostat Sl) 0.4 mg UNSCH PRN SL WITH DIALYSIS; Start 03/06/16 at 15:45 Clonidine (Catapres) 0.1 mg UNSCH PRN PO WITH DIALYSIS; Start 03/06/16 at 15:45 Epoetin Camilo (Epogen Inj) 4,000 units UNSCH PRN IV WITH DIALYSIS Last administered on 03/09/16 12:13; Start 03/06/16 at 15:45 Heparin Sodium (Porcine) (*HEPARIN INJ Periprocedural ONLY) 10,000 units STK- MED ONCE .ROUTE Last administered on 03/06/16 19:28; Start 03/06/16 at 19:28; Stop 03/06/16 at 19:29; Status DC Lorazepam (Ativan Inj) 2 mg STK-MED ONCE .ROUTE Last administered on 03/06/16 19:33; Start 03/06/16 at 19:33; Stop 03/06/16 at 19:34; Status DC Propofol (Diprivan 200 Mg/20 ml Inj) 50 mg STK-MED ONCE IV ; Start 03/08/16 at 11:17; Stop 03/08/16 at 11:29; Status DC Midazolam HCl (Versed Inj) 5 mg STK-MED ONCE .ROUTE Last administered on 12:44; Start 03/08/16 at 12:44; Stop 03/08/16 at 12:45; Status DC Fentanyl Citrate (fentaNYL INJ) 250 mcg STK-MED ONCE .ROUTE Last administered on 03/08/16 12:45; Start 03/08/16 at 12:45; Stop 03/08/16 at 12:46; Status DC Heparin Sodium (Porcine) (*HEPARIN INJ Periprocedural ONLY) 10,000 units STK- MED ONCE .ROUTE Last administered on 03/08/16 14:08; Start 03/08/16 at 14:08; Stop 03/08/16 at 14:09; Status DC Iodixanol (Visipaque 320 Inj) 45 ml STK-MED ONCE IV Last administered on 14:54; Start 03/08/16 at 14:54; Stop 03/08/16 at 14:55; Status DC Tramadol HCl (Ultram) 50 mg Q12H PRN PO PAIN >5 Last administered on 03/10/16 08:13; Start 03/09/16 at 10:15 Levofloxacin 500 mg 500 mg Q48H PO ; Start 03/11/16 at 09:00 Pharmacy Profile Note ([facility]) 0 ml @ 0 mls/hr UNSCH OTHER ; Start 03/09/16 at 10:15 Pantoprazole Sodium 40 mg 40 mg DAILY PO Last administered on 03/10/16 08:12; Start 03/10/16 at 09:00 Levofloxacin/ Dextrose 150 ml @ 100 mls/hr ONCE ONCE IV ; Start 03/09/16 at 11 :00; Stop 03/09/16 at 12:29; Status Cancel Levofloxacin/ Dextrose (Levaquin 750 Mg Premix Inj) 150 ml @ 100 mls/hr ONCE ONCE IV Last administered on 03/09/16 16:01; Start 03/09/16 at 16:00; Stop 12/14 at 17:29; Status DC A/P Assessment and Plan A/P - hematemesis s/p EGD with severe reflux esophagitis- continue PPI monitor H/H GI has signed off. -severe sepsis ( leukocytosis/ tachycardia/ hypotension) due to LLL pneumonia ( health-care associated) blood cultures negative- continue levaquin. -ESRD- on HD with clotted AV graft s/p vasc-cath placement and declotting of the AV graft- nephrology following. -history of hypertension with hypotensive episode; resolved after IV fluid- will hold BP meds for now -diabetes mellitus; accu-check with SSI- hold long acting insulin for now -history of CAD, CVA, hypothyroidism, bipolar disorder and neuropathy; resumed home meds -possible liver fatty infiltration- f/u as outpatient -DVT prophylaxis with SCD's- no chemical prophylaxis due to GI bleed -consulted PT Discharge Planning cleared by nephrology. dc to SNF today. see med list. f/u; pcp, GI and nephrology. d/w . time spent 35 min. Promise Munoz MD Mar 10, 2016 10:03
[2016-03-10] MEDS ORDERED: PANT40TA3 PO (10:06)
[2016-03-10] MEDS ORDERED: HYDR-3366 PO (10:06)
[2016-03-10] MEDS ORDERED: LEVA500T PO (10:06)
--- NOTE | 2016-03-10 10:16 | HHI.DCPOC ---
Discharge Care Plan Diagnosis: (1) End stage kidney disease (2) GI bleed Your Health Problems Are: Bleeding Tendency Urinary Difficulties Goals to Promote Your Health * To prevent worsening of your condition and complications * To maintain your health at the optimal level Directions to Meet Your Goals Take your medications as prescribed Follow your dietary instruction Follow activity as directed Keep your appointments as scheduled Take your immunizations and boosters as scheduled If your symptoms worsen call your PCP, if no PCP go to Urgent Care Center or Emergency Room Smoking is Dangerous to Your Health. Avoid second hand smoke Call the 24-hour hour crisis hotline for domestic abuse at Promise Munoz MD Mar 10, 2016 10:16
--- NOTE | 2016-03-10 10:17 | HHI.DS ---
Discharge Summary Admission Date Mar 06, 2016 at 10:32 Discharge Date: Mar 10, 2016 Admitting Diagnosis sepsis, abdominal pain, GI bleed (1) GI bleed ICD Code: K92.2 Diagnosis: Principal (2) End stage renal disease ICD Code: N18.6 Diagnosis: Secondary Procedures vas-cath placement declotting of the AV graft Brief History - From Admission patient is a 60 y/o male with history of ESRD, CAD who presented to ER after he vomited blood. the patient is not a good historian and most of the information was obtained from ER and medical documents. he reportedly had a few episodes of hematemesis. he denies any abdominal pain or nausea at this moment. he denies any sob or dizziness.he's not sure when he has his last HD. CBC/BMP: 03/09/16 0721 03/09/16 0721 Significant Findings Laboratory Tests Test 03/08/16 03/09/16 04:15 07:21 Red Blood Count 3.32 MIL/MM3 3.53 MIL/MM3 (4.50-5.90) (4.50-5.90) Hemoglobin 9.7 GM/DL 10.1 GM/DL (13.0-17.0) (13.0-17.0) Hematocrit 30.0 % 32.3 % (39.0-51.0) (39.0-51.0) Red Cell Distribution Width 18.1 % 17.7 % (11.6-17.2) (11.6-17.2) Monocytes % 10 % (0-8) Mean Corpuscular Hemoglobin 31.2 % Concent (32.0-36.0) Chloride Level 97 MEQ/L (98-107) Blood Urea Nitrogen 46 MG/DL (7-18) Creatinine 8.93 MG/DL (0.60-1.30) Estimat Glomerular Filtration 7 ML/MIN (>89) Rate Random Glucose 190 MG/DL (74-106) Imaging Last Impressions Shunt Study 03/08/16 0000 Signed Impressions: Service Date/Time: Tuesday, March 08, 2016 13:26 - CONCLUSION: Uncomplicated declotting of thrombosed dialysis graft as described in detail above. Seun Sarkar MD Chest X-Ray 03/06/16 0604 Signed Impressions: Service Date/Time: Sunday, March 06, 2016 06:18 - CONCLUSION: Consolidative infiltrate lower lateral left lung. Lito Enamorado MD Abdomen/Pelvis CT 03/06/16 0604 Signed Impressions: Service Date/Time: Sunday, March 06, 2016 06:29 - CONCLUSION: 1. Inhomogeneous liver probably fatty infiltration. This could be further evaluated by CT scan with IV contrast in this dialysis patient. 2. Large hiatal hernia. 3. Small shrunken kidneys consistent with a history of dialysis. Felix Isaac MD FACR Catheter Placement X-Ray 03/06/16 0000 Signed Impressions: Service Date/Time: Sunday, March 06, 2016 19:18 - CONCLUSION: Uncomplicated line placement as above. Seun Sarkar MD PE at Discharge GENERAL: This is a well-nourished, well-developed patient, in no apparent distress. CARDIOVASCULAR: Regular rate and regular rhythm without murmurs, gallops, or rubs. RESPIRATORY: Clear to auscultation. Breath sounds equal bilaterally. No wheezes , rales, or rhonchi. GASTROINTESTINAL: Abdomen soft, non-tender, nondistended. Normal, active bowel sounds MUSCULOSKELETAL: Extremities without clubbing, cyanosis, or edema. NEURO: Awake and alert with left hemiparesis Hospital Course - hematemesis s/p EGD with severe reflux esophagitis- continue PPI monitor H/H GI has signed off. -severe sepsis ( leukocytosis/ tachycardia/ hypotension) due to LLL pneumonia ( health-care associated) blood cultures negative- continue levaquin. -ESRD- on HD with clotted AV graft s/p vasc-cath placement and declotting of the AV graft- nephrology following. -history of hypertension with hypotensive episode; resolved after IV fluid- will hold BP meds for now -diabetes mellitus; accu-check with SSI- hold long acting insulin for now -history of CAD, CVA, hypothyroidism, bipolar disorder and neuropathy; resumed home meds --possible liver fatty infiltration- f/u as outpatient -DVT prophylaxis with SCD's- no chemical prophylaxis due to GI bleed -consulted PT Pt Condition on Discharge: Fair Discharge Disposition: Discharge to SNF Discharge Time: > 30 minutes Discharge Instructions DIET: Follow Instructions for: Renal Failure Diet Activities you can perform: Regular-No Restrictions Follow up Referrals: Gastroenterology - 2 Weeks @ [facility] PCP Follow-up - 2-3 Days New Medications: Levofloxacin (Levaquin) 500 Mg Tab 500 MG PO Q48H infection #3 Ref 0 TAB Pantoprazole (Pantoprazole) 40 Mg Tab 40 MG PO DAILY ppi Days 30 Ref 0 TAB Changed Medications: Hydrocodone-Acetaminophen (Tanana) 10-325 Mg Tab 1 TAB PO Q6HR PRN PAIN #15 Ref 0 TAB (Changed from: Q12HR) Continued Medications: Acetaminophen (Tylenol) 325 Mg Tab 650 MG PO Q4H PRN PAIN SCALE 1 TO 10 Ref 0 TAB Ascorbic Acid (Ascorbic Acid) 500 Mg Tab 500 MG PO TAB B-Complex W/ C & Folic Acid (Estrella-Rafa) 1 Tab 1 TAB PO DAILY TAB Bisacodyl DR (Bisacodyl EC) 5 Mg Tabec 10 MG PO HS CONSTIPATION Ref 0 TAB Escitalopram (Lexapro) 20 Mg Tab 20 MG PO HS #30 Ref 0 TAB Gabapentin (Gabapentin) 100 Mg Cap 200 MG PO DAILY #30 Ref 0 CAP Insulin Detemir Inj (Levemir Inj) 1,000 unit/ 10 ML Vial 15 UNITS SQ HS Do not mix with any other Insulin. Blood Sugar Management Ref 0 VIAL Insulin Lispro (Human) Inj (Humalog Inj) 1,000 Unit/10 Ml Vial 2-12 UNITS SQ ACHS Max dose at bedtime:( )units; sugars < 70,(0)units; sugars 150-199,(2)units; sugars 200-249,(4)units; sugars 250-299,(7)units; sugars 300- 349,(10)units; sugars more than 349,(12)units. Blood Sugar Management #1 Ref 0 VIAL Ipratropium-Albuterol Neb (Duoneb) 0.5-2.5 Mg/3 Ml Neb 1 NEBULE INH Q4HR NEB PRN WHEEZING #120 Ref 0 NEBULE Lamotrigine (Lamictal) 200 Mg Tab 200 MG PO HS Control Seizures #30 Ref 0 TAB Ondansetron (Zofran) 8 Mg Tab 8 MG PO QID PRN NAUSEA OR VOMITING Ref 0 TAB Risperidone (Risperdal) 0.5 Mg Tab 0.75 MG PO Q12HR #60 Ref 0 TAB Sevelamer Carbonate Liq (Renvela Liq) 2.4 Gm Pack 2.4 GM PO TID Control phosphorus levels #90 Ref 0 PKT Silver Sulfadiazine Topical (Silvadene Topical) 1 % Cream 1 APPLIC TOPICAL BID Wound Management #400 Ref 0 GM Tamsulosin (Flomax) 0.4 Mg Cap 0.4 MG PO HS Manage Prostate Problems #30 Ref 0 CAP Trazodone (Trazodone) 150 Mg Tab 150 MG PO HS Control Depression #30 Ref 0 TAB Zinc Oxide (Topical) (Zinc Oxide) 20 % Oin 1 APPLIC TD TID Discontinued Medications: Hydralazine (Hydralazine) 10 Mg Tab 10 MG PO TID Take with a meal Blood Pressure Management Ref 0 TAB Insulin Detemir Inj (Levemir Inj) 1,000 unit/ 10 ML Vial 19 UNITS SQ AC BREAKFAST Do not mix with any other Insulin. Blood Sugar Management Ref 0 VIAL Isosorbide Mononitrate ER (Isosorbide Mononitrate ER) 30 Mg Ryan 30 MG PO DAILY Prevent Chest Pain #30 Ref 0 TAB Omeprazole (Omeprazole) 20 Mg Tab 20 MG PO DAILY #30 Ref 0 TAB Zolpidem (Ambien) 10 Mg Tab 10 MG PO HS PRN INSOMNIA Ref 0 TAB Promise Munoz MD Mar 10, 2016 10:17
[2016-03-10 10:48] VITALS: O2SAT 93
[2016-03-10 11:00] VITALS: BP 92/65
--- NOTE | 2016-03-10 11:10 | HHI.NPPN ---
Subjective General Problems: Anemia Renal Failure: Chronic, End Stage Renal Disease Interval History VasCath was removed. Dialysis through left thigh graft without complication yesterday. (Karen Remy) Objective Data Data 03/09/16 03/10/16 19:00 07:00 Intake Total 480 ml Output Total 1500 ml 0 ml Balance -1500 ml 480 ml Intake Oral 480 ml Output Urine Total 0 ml Hemodialysis 1500 ml # Bowel Movements 1 Vital Signs Date Time Temp Pulse Resp B/P Pulse Ox O2 Delivery O2 Flow Rate FiO2 03/10/16 10:48 93 Nasal Cannula 3.00 03/10/16 08:00 97.5 81 24 89/51 93 03/10/16 03:55 98.1 80 18 99/63 100 03/09/16 23:00 98.4 82 18 95/53 93 03/09/16 19:41 93 03/09/16 19:34 97.8 91 18 106/57 96 03/09/16 17:50 96 Nasal Cannula 3.00 03/09/16 16:02 98.3 76 20 93/53 97 (Karen Remy) -: 03/09/16 0721 03/09/16 0721 Imaging Last 72 hours Impressions Shunt Study 03/08/16 0000 Signed Impressions: Service Date/Time: Tuesday, March 08, 2016 13:26 - CONCLUSION: Uncomplicated declotting of thrombosed dialysis graft as described in detail above. Seun Sarkar MD (Karen Remy) Physical Exam General Appearance: No Acute Distress, Comfortable (Karen Remy) Eyes Eye Exam: Pupils Equal (Karen Remy) Throat Throat Exam: Oral Mucosa Rigby & Moist (Karen Remy) Neck Neck Exam: Neck Supple (Karen Remy) Pulmonary Resp Exam: Clear Bilaterally, Breath Sounds Equal (Karen Remy) Cardiology CV Exam: Regular, Normal Sinus Rhythm (Karen Remy) Gastrointestinal/Abdomen GI Exam: Soft, Non-Tender (Karen Remy) Musculoskeletal MS Exam: Joints Intact, Normal Tone (Karen Remy) Integumentary Skin Exam: Clear, Dry (Karen Remy) Extremeties Extremities Exam: No Edema, Pedal Pulses Palpable Extremeties Remarks Left thigh, AVF, + thrill/bruit (aKren Remy) Neurologic Neuro Exam: Alert, Awake, Speech Clear, Moving All Extremities (Karen Remy) Psychiatric Psych Exam: Appropriate Responses (Karen Remy) Assessment/Plan Discussed Condition With: Patient Assessment Summary: Anemia of CKD, Hypertension Problem List: (1) End stage renal disease Plan: Dialyzed yesterday through left thigh graft which was successfully declotted Vascath was removed he had 1500 ml UF yesterday electrolytes stable he is cleared for discharge, has existing outpatient HD arrangements (2) Congestive heart failure (CHF) Plan: currently compensated with no evidence of fluid overload (3) CVA, old, hemiparesis Plan: supportive care. he resides at LTC facility (4) Metabolic bone disease Plan: His phosphorus level is very high. He should continue Renvela at discharge, questionable binder compliance (5) Anemia Plan: Hemoglobin stable hx GIB, GI has signed off, he had EGD, results reviewed (6) DM type 2 (diabetes mellitus, type 2) Plan: continue insulin coverage after discharge (Karen Remy) Plan patient was seen and examined. His mental status appears to have reached baseline. Ok to discharge from renal standpoint. (Ricky Santana MD) Karen Remy Mar 10, 2016 11:10 Ricky Santana MD Mar 11, 2016 08:15
[2016-03-10 12:00] VITALS: BP 88/52; PULSE 78; RESP 20; TEMP 97.7; O2SAT 94
[2016-03-11] MEDS ORDERED: LEVOFLOXACIN 500 MG TAB PO SCH (09:00)
== END 2016-03-10 12:57 | DRG 853 ==
LOC: NEPE 05:20 → NEDA 10:32 → N04A 15:46
PROVIDERS: ADMIT Internal Medicine; ATTEND Internal Medicine
PROC: 05HM33Z Insertion of Infusion Device into Right Internal Jugular Vein, Percutaneous Approach (ICD-10-PCS; 2016-03-06)
PROC: 5A1D60Z (ICD-10-PCS; 2016-03-06)
PROC: 047Y3ZZ Dilation of Lower Artery, Percutaneous Approach (ICD-10-PCS; 2016-03-08)
PROC: 06CY3ZZ Extirpation of Matter from Lower Vein, Percutaneous Approach (ICD-10-PCS; 2016-03-08)
PROC: 067Y3ZZ Dilation of Lower Vein, Percutaneous Approach (ICD-10-PCS; 2016-03-08)
PROC: 0DB38ZX Excision of Lower Esophagus, Via Natural or Artificial Opening Endoscopic, Diagnostic (ICD-10-PCS; 2016-03-08)
PROC: 04CY3ZZ Extirpation of Matter from Lower Artery, Percutaneous Approach (ICD-10-PCS; principal; 2016-03-08 11:04)
DX: A41.9 Sepsis, unspecified organism (principal); N18.6 End stage renal disease; K92.0 Hematemesis; J18.9 Pneumonia, unspecified organism; I12.0 Hypertensive chronic kidney disease with stage 5 chronic kidney disease or end stage renal disease; I69.354 Hemiplegia and hemiparesis following cerebral infarction affecting left non-dominant side; F20.0 Paranoid schizophrenia; T82.868A Thrombosis due to vascular prosthetic devices, implants and grafts, initial encounter; J44.0 Chronic obstructive pulmonary disease with (acute) lower respiratory infection; R65.20 Severe sepsis without septic shock; E11.22 Type 2 diabetes mellitus with diabetic chronic kidney disease; K21.0 Gastro-esophageal reflux disease with esophagitis; K59.00 Constipation, unspecified; I25.10 Atherosclerotic heart disease of native coronary artery without angina pectoris; E03.9 Hypothyroidism, unspecified; E87.5 Hyperkalemia; I73.9 Peripheral vascular disease, unspecified; E78.5 Hyperlipidemia, unspecified; G62.9 Polyneuropathy, unspecified; M19.90 Unspecified osteoarthritis, unspecified site; M54.9 Dorsalgia, unspecified; G89.29 Other chronic pain; K44.9 Diaphragmatic hernia without obstruction or gangrene; F32.9 Major depressive disorder, single episode, unspecified; K76.0 Fatty (change of) liver, not elsewhere classified; I50.9 Heart failure, unspecified; Z79.4 Long term (current) use of insulin; Z99.2 Dependence on renal dialysis; Z86.010 Personal history of colon polyps; Y83.2 Surgical operation with anastomosis, bypass or graft as the cause of abnormal reaction of the patient, or of later complication, without mention of misadventure at the time of the procedure
CPT/HCPCS: 35875; 36005; 36556; 36905; 37246; 71010; 74176; 76937; 77001; 80048; 80053; 82948; 83605; 83690; 84100; 85007; 85014; 85018; 85025; 85027; 85610; 85730; 86850; 86900; 86901; 87040; 88305; 88312; 90935; 93005; 96374; 96375; 99152; 99153; C1725; C1752; C1769; C1887; C1894; C9113; J1580; J1644; J1815; J1956; J2060; J2250; J2405; J2543; J3010; J3370; J7030; J7050; P9047; Q4081; Q9967

== ENCOUNTER 2016-05-09 15:05 | Inpatient (IN) | payer MEDICARE, OTHER ==
[~2016-05-09] VITALS: Ht 167.6 cm; Wt 65.0 kg
[~2016-05-09 15:05] MED LIST changes: -ACET325S8 PO; +ASCO500T PO; -BISA5TAB PO; -CYCL5TAB PO; -DUONI NEB; -FENO200C PO; +FLEE5TAB PO; +GABA100C4 PO; +HUMALOG SQ; -HUMALOGP SQ; +HYDR-3366 PO; -HYDR10TA23 PO; +IPRASOL INH; -ISOS30 PO; +LAMI200T PO; -LAMO100 PO; +LEVA500T PO; -LIDO5T TOP; -NEUR100C TUBE; -NITR.4 SL; -NORC7.5T PO; -NU-IRON PO; -OMEP20TA PO; -OXYC1SOL5 PO; +PANT40TA3 PO; -POLY119S PO; +RENV2.4P PO; +RISP0.5T20 PO; -RISP1TAB51 PO; -SEVEL800 PO; +SILV1CRE20 TOPICAL; -SUPETAB30 PO; -TAMS0.4C67 PO; +TAMS5CAP PO; +TRAZ150T75 PO; -TRAZ50TA4 PO; +TYLE325T PO; -VITA500C PO; -XANA0.5T PO; +ZINC20OI TD; -ZOFR4TAB3 SL; +ZOFR8TAB PO; -[UNRECOGNIZED DRUG - CODE] TOP; -[UNRECOGNIZED DRUG - CODE] TOP
[2016-05-09 15:12] VITALS: BP 97/62; PULSE 114; RESP 22; TEMP 99.3; O2SAT 94
--- NOTE | 2016-05-09 15:39 | PD ---
HPI Chief Complaint: cough and vomiting Time Seen by Provider: 15:11 Travel History International Travel<30 days: No Contact w/Intl Traveler<30days: No Traveled to known affect area: No History of Present Illness HPI 60-year-old male who is mostly bedbound from a previous stroke came to the emergency room from the alf for coughing and vomiting that's been going on for past couple days. Patient was admitted in this hospital not too long ago for upper GI bleed. As per the alf paperwork patient was vomiting coffee ground emesis. He is tachycardic and blood pressure is 98/58 however he is awake and answering questions appropriately he does not appear to be in any distress. His heart rate is in 1 teens. His rectal temp was 99.8. He denies any abdominal pain or chest pain. Patient has not vomited in the emergency room yet. His med rec does not show any blood thinners on board. PFSH Past Medical History Narrative Medical List of his past medical, surgical, social and family history is reviewed from the nursing note. 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 MUSCLE WEAKNESS) Neurologic: Yes (LT SIDE FLACID LA CONTRACTED, MULTIPLE STROKES, HX SEIZURES) Psychiatric: Yes (EPISODIC MOOD DISORDER, PSYCHOSIS) Reproductive: No Respiratory: Yes Immunizations Current: No Migraines: No Myocardial Infarction: No Radiation Therapy: No Renal Failure: No Schizophrenia: Yes Seizures: No Sickle Cell Disease: No Sleep Apnea: No Thyroid Disease: Yes (HYPOTHYROIDISM) Ulcer: No PNEUMOCCOCAL Vaccine (Year): 2 Past Surgical History Abdominal Surgery: No AICD: No Arteriovenous Shunt: No Cardiac Surgery: Yes (STENT, CARDIAC CATHERIZATION) Coronary Artery Bypass Graft: No Coronary Stent: Yes Ear Surgery: No Endocrine Surgery: No Eye Surgery: No Genitourinary Surgery: No Gynecologic Surgery: No Insulin Pump: No Joint Replacement: No Neurologic Surgery: No Oral Surgery: No Pacemaker: No Thoracic Surgery: No Other Surgery: Yes Social History Alcohol Use: No Tobacco Use: No Substance Use: No Allergies-Medications (Allergen,Severity, Reaction): Coded Allergies: Methadone (Verified Allergy, Severe, 05/09/16) Darvocet-N 100 (Verified Allergy, Unknown, 05/09/16) PATIENT WAS TOLD TO NEVER TAKE THIS MEDICATION *MDRO Multi-Drug Resistant Organism (Verified Adverse Reaction, Unknown, ESBL, MRSA, 05/09/16) ESBL (sputum & urine) - 06/2015 MRSA (urine) - 02/2012 Comments List of his allergies reviewed from the nursing note. Reported Meds & Prescriptions Reported Meds & Active Scripts Active Reported Soothing Ointment (Zinc Oxide (Topical)) 10 % Oin 1 Applic TOP TID & PRN PRN Omeprazole 20 Mg Tab 20 Mg PO DAILY Santyl Topical (Collagenase) 250 Unit/Gm Oint 1 Applic TOPICAL HS Remeron (Mirtazapine) 15 Mg Tab 15 Mg PO HS [place] (Hydrocodone-Acetaminophen) 10-325 Mg Tab 1 Tab PO Q12HR PRN Levemir Inj (Insulin Detemir) 1,000 unit/ 10 ML Vial 19 Units SQ DAILY IN THE MORNING Do not mix with any other Insulin. Humalog Inj (Insulin Human Lispro) 1,000 Unit/10 Ml Vial 2-10 Units SQ ACHS Max dose at bedtime:( )units; sugars < 70,(0)units; sugars 150-199,(2)units; sugars 200-249,(4)units; sugars 250-299,(6)units; sugars 300-349,(8)units; sugars 350-399,(10)units. Gentamicin Topical 0.1% Oint 1 Applic TOP HS Doxycycline Hyclate 100 Mg Tab 100 Mg PO BID Zofran (Ondansetron HCl) 8 Mg Tab 8 Mg PO Q6HR PRN Tylenol (Acetaminophen) 325 Mg Tab 650 Mg PO Q4H PRN Trazodone (Trazodone HCl) 150 Mg Tab 150 Mg PO HS Risperdal (Risperidone) 0.5 Mg Tab 0.75 Mg PO Q12HR Renvela Liq (Sevelamer Carbonate) 2.4 Gm Pack 2.4 Gm PO TIDPC Estrella-Rafa (B-Complex W/ C & Folic Acid) 1 Tab 1 Tab PO DAILY Lexapro (Escitalopram Oxalate) 20 Mg Tab 20 Mg PO HS Levemir Inj (Insulin Detemir) 1,000 unit/ 10 ML Vial 15 Units SQ HS Do not mix with any other Insulin. Lamictal (Lamotrigine) 200 Mg Tab 200 Mg PO HS Gabapentin 100 Mg Cap 200 Mg PO DAILY Flomax (Tamsulosin HCl) 0.4 Mg Cap 0.4 Mg PO HS Duoneb (Ipratropium-Albuterol Neb) 0.5-2.5 Mg/3 Ml Neb 1 Nebule INH Q4HR NEB PRN Bisacodyl EC (Bisacodyl) 5 Mg Tabec 10 Mg PO HS Ascorbic Acid 500 Mg Tab 500 Mg PO DAILY Narrative Medication List of his home medications reviewed from the nursing note. Review of Systems Except as stated in HPI: all other systems reviewed are Neg Physical Exam Narrative GENERAL: Awake, alert, no obvious distress, previous stroke, bedbound SKIN: Warm and dry. HEAD: Atraumatic. Normocephalic. EYES: Pupils equal and round. No scleral icterus. No injection or drainage. ENT: No nasal bleeding or discharge. Mucous membranes pink and moist. NECK: Trachea midline. No JVD. CARDIOVASCULAR: Regular rate and rhythm. No murmur appreciated. RESPIRATORY: No accessory muscle use. Clear to auscultation. Breath sounds equal bilaterally. GASTROINTESTINAL: Abdomen soft, non-tender, nondistended. Hepatic and splenic margins not palpable. MUSCULOSKELETAL: Contractures of both upper and lower extremities from previous stroke with muscle atrophy. NEUROLOGICAL: Awake and alert. No obvious cranial nerve deficits. Contractures from previous stroke with muscle atrophy. Normal speech. PSYCHIATRIC: Appropriate mood and affect; insight and judgment normal. Data Data Last Documented VS Vital Signs Date Time Temp Pulse Resp B/P Pulse Ox O2 Delivery O2 Flow Rate FiO2 05/09/16 20:09 98.4 105 18 110/61 97 Room Air 05/09/16 16:17 2 Orders Complete Blood Count With Diff (05/09/16 15:41) Comprehensive Metabolic Panel (05/09/16 15:41) Lactic Acid Sepsis Protocol (05/09/16 15:41) Urinalysis - C+S If Indicated (05/09/16 15:41) Blood Culture (05/09/16 15:41) Chest, Single Ap (05/09/16 15:41) Blood Glucose (05/09/16 15:41) Ecg Monitoring (05/09/16 15:41) Iv Access Insert/Monitor (05/09/16 15:41) Oximetry (05/09/16 15:41) Oxygen Administration (05/09/16 15:41) Vancomycin Inj (Vancomycin Inj) (05/09/16 15:41) Piperacil-Tazo 4.5 Gm Premix (Zosyn 4.5 (05/09/16 15:41) Sodium Chlor 0.9% 1000 Ml Inj (Ns 1000 M (05/09/16 15:41) Sodium Chlor 0.9% 1000 Ml Inj (Ns 1000 M (05/09/16 15:41) Sodium Chlor 0.9% 1000 Ml Inj (Ns 1000 M (05/09/16 15:41) Vascular Access Team Consult PRN (05/09/16 17:03) Vascular Poc Ultrasound (05/09/16 ) Ondansetron Inj (Zofran Inj) (05/09/16 18:45) Pantoprazole Inj (Protonix Inj) (05/09/16 19:00) Pantoprazole Inj (Protonix Inj) (05/09/16 19:00) Consult Gastroenterology (05/09/16 ) NPO (05/09/16 19:28) (Hub Use Only)Inp Phy Cons/Ref (05/09/16 ) Admit Order (Ed Use Only) (05/09/16 21:57) Labs Laboratory Tests Test 05/09/16 05/09/16 18:25 20:00 White Blood Count 16.2 TH/MM3 Red Blood Count 3.14 MIL/MM3 Hemoglobin 9.3 GM/DL Hematocrit 29.3 % Mean Corpuscular Volume 93.4 FL Mean Corpuscular Hemoglobin 29.5 PG Mean Corpuscular Hemoglobin 31.6 % Concent Red Cell Distribution Width 18.9 % Platelet Count 369 TH/MM3 Mean Platelet Volume 8.7 FL Neutrophils (%) (Auto) 82.0 % Lymphocytes (%) (Auto) 10.0 % Monocytes (%) (Auto) 7.7 % Eosinophils (%) (Auto) 0.0 % Basophils (%) (Auto) 0.3 % Neutrophils # (Auto) 13.3 TH/MM3 Lymphocytes # (Auto) 1.6 TH/MM3 Monocytes # (Auto) 1.2 TH/MM3 Eosinophils # (Auto) 0.0 TH/MM3 Basophils # (Auto) 0.1 TH/MM3 CBC Comment DIFF FINAL Differential Comment Sodium Level 142 MEQ/L Potassium Level 4.7 MEQ/L Chloride Level 94 MEQ/L Carbon Dioxide Level 35.9 MEQ/L Anion Gap 12 MEQ/L Blood Urea Nitrogen 42 MG/DL Creatinine 6.20 MG/DL Estimat Glomerular Filtration 11 ML/MIN Rate Random Glucose 194 MG/DL Calcium Level 9.2 MG/DL Total Bilirubin 0.5 MG/DL Aspartate Amino Transf 61 U/L (AST/SGOT) Alanine Aminotransferase 22 U/L (ALT/SGPT) Alkaline Phosphatase 78 U/L Total Protein 9.4 GM/DL Albumin 2.4 GM/DL Lactic Acid Level 3.8 mmol/L MDM Medical Decision Making Medical Screen Exam Complete: Yes Emergency Medical Condition: Yes Medical Record Reviewed: Yes Differential Diagnosis Sepsis, GI bleed, pneumonia, acute gastroenteritis Narrative Course 4:19 PM awaiting for the blood test results to come back. Patient is given IV fluid and antibiotic as per sepsis protocol. He still has not had any emesis coffee-ground are otherwise so far. 5:39 PM patient was a hard stick. Nurses tried on ultrasound guidance without any success. Patient refused to get an EJ placed by me. Vascular access team has been called. Awaiting for the blood test results at this point. Case was signed over to the oncoming ER physician. Procedures EKG Prior to Arrival: Shyla Campa MD May 09, 2016 15:39
[2016-05-09] MEDS ORDERED: PIPERACIL-TAZO 4.5 GM PREMIX 100 ML IV STA (15:41)
[2016-05-09] MEDS ORDERED: VANCOMYCIN INJ 1,000 MG in SODIUM CHLOR 0.9% 250 ML INJ 250 ML IV STA (15:41)
[2016-05-09] MEDS ORDERED: SODIUM CHLOR 0.9% 1000 ML INJ 100 ML IV ONE (15:41)
[2016-05-09] MEDS ORDERED: SODIUM CHLOR 0.9% 1000 ML INJ 1,000 ML IV ONE ×2 (15:41)
--- NOTE | 2016-05-09 16:08 | RADRPT ---
EXAM DATE/TIME: 05/09/2016 15:42 [facility] COMPARISON: CHEST SINGLE AP, March 06, 2016, 6:18. INDICATIONS : Cough. MEDICAL HISTORY : Stroke. SURGICAL HISTORY : None. ENCOUNTER: Initial ACUITY: 1 day PAIN SCORE: 0/10 LOCATION: Bilateral chest FINDINGS: A single view of the chest demonstrates the lungs to be symmetrically aerated without evidence of mas s, infiltrate or effusion. The cardiomediastinal contours are unremarkable. Osseous structures are intact. CONCLUSION: No acute cardiopulmonary disease demonstrated. Seun Rodriguez MD on May 09, 2016 at 16:06 Board Certified Radiologist. This report was verified electronically.
[2016-05-09 16:17] VITALS: O2SAT 97
[2016-05-09] MEDS ORDERED: DOXY100T PO (17:41)
[2016-05-09] MEDS ORDERED: GENT0.1O2 TOP (17:53)
[2016-05-09] MEDS ORDERED: HUMA100I3 SQ (17:56)
[2016-05-09] MEDS ORDERED: HUMALOG SQ (17:57)
[2016-05-09] MEDS ORDERED: LEVEMIR SQ (18:04)
[2016-05-09] MEDS ORDERED: HYDR-3366 PO (18:06)
[2016-05-09] MEDS ORDERED: REME15TA PO (18:09)
[2016-05-09] MEDS ORDERED: COLL30T TOPICAL (18:17)
[2016-05-09] MEDS ORDERED: OMEP20TA PO (18:20)
[2016-05-09] MEDS ORDERED: [UNRECOGNIZED DRUG - CODE] TOP (18:25)
[2016-05-09] MEDS ORDERED: ONDANSETRON HCL 4 MG/2 ML VIAL IV PUSH ONE (18:45)
[2016-05-09 18:47] LABS: AUTOMATED NEUTROPHIL # 13.3 TH/MM3 (1.8-7.7); BASOPHIL # 0.1 TH/MM3 (0-0.2); BASOPHIL % 0.3 % (0.0-2.0); HEMATOCRIT 29.3 % (39.0-51.0); HEMO FLAGS DIFF FINAL; LYMPHOCYTE # 1.6 TH/MM3 (1.0-4.8); MEAN CELL VOLUME 93.4 FL (80.0-100.0); MEAN CORPUSCULAR HEMOGLOBIN 29.5 PG (27.0-34.0); MEAN CORPUSCULAR HGB CONC 31.6 % (32.0-36.0); MONO % 7.7 % (0.0-8.0); PLATELET COUNT 369 TH/MM3 (150-450); RED BLOOD COUNT 3.14 MIL/MM3 (4.50-5.90); RED CELL DISTRIBUTION WIDTH 18.9 % (11.6-17.2); WHITE BLOOD COUNT 16.2 TH/MM3 (4.0-11.0)
--- NOTE | 2016-05-09 18:47 | PD ---
Physical Exam Narrative Received sign out from previous team to follow up labs and reevaluate. 60yo M with PMH of ESRD on HD T//Tue, last HD yesterday, CAD, CVA (bedbound with contracted extremities) brought in from skilled nursing for hematemesis today. As per nurse, EVAC states it was coffee ground emesis. Pt's initially VS were mild tachycardia 114 with low BP 97/62 and previous team had difficulty with IV access. At change of shift, vascular access consult and he was able to placed an IV. Pt's BP was 135/65 and HR 109bpm with O2 sat 94-96% on RA when I saw him. Pt was ordered NS IVF x3 and vancomycin and zosyn but I will only give him one liter of NS IVF since he is ESRD. Pt had an episode of vomiting and it was brown in color but I did hemaprompt on gastric content and it was positive. Will place pt on protonix. Pt had been admitted 03/06/16-03/10/16 for hematemesis and had EGD that showed severe reflux esophagitis. Labs reviewed, leukocytosis at 16.2. H/H is 9.3/29.3. Discussed with GI Dr. Liriano and he agreed with protonix and states to keep him NPO and they will scope him tomorrow. Lactic acid 3.8, pt is having GI bleed so can be secondary to that. Creatinine is elevated at 6.20. Pt is ESRD and this is better than his baseline. CXR negative. Discussed with Dr. Dee and accepted to his service. Data Data Last Documented VS Vital Signs Date Time Temp Pulse Resp B/P Pulse Ox O2 Delivery O2 Flow Rate FiO2 05/09/16 20:09 98.4 105 18 110/61 97 Room Air 05/09/16 16:17 2 Orders Complete Blood Count With Diff (05/09/16 15:41) Comprehensive Metabolic Panel (05/09/16 15:41) Lactic Acid Sepsis Protocol (05/09/16 15:41) Urinalysis - C+S If Indicated (05/09/16 15:41) Blood Culture (05/09/16 15:41) Chest, Single Ap (05/09/16 15:41) Blood Glucose (05/09/16 15:41) Ecg Monitoring (05/09/16 15:41) Iv Access Insert/Monitor (05/09/16 15:41) Oximetry (05/09/16 15:41) Oxygen Administration (05/09/16 15:41) Vancomycin Inj (Vancomycin Inj) (05/09/16 15:41) Piperacil-Tazo 4.5 Gm Premix (Zosyn 4.5 (05/09/16 15:41) Sodium Chlor 0.9% 1000 Ml Inj (Ns 1000 M (05/09/16 15:41) Sodium Chlor 0.9% 1000 Ml Inj (Ns 1000 M (05/09/16 15:41) Sodium Chlor 0.9% 1000 Ml Inj (Ns 1000 M (05/09/16 15:41) Vascular Access Team Consult PRN (05/09/16 17:03) Vascular Poc Ultrasound (05/09/16 ) Ondansetron Inj (Zofran Inj) (05/09/16 18:45) Pantoprazole Inj (Protonix Inj) (05/09/16 19:00) Pantoprazole Inj (Protonix Inj) (05/09/16 19:00) Consult Gastroenterology (05/09/16 ) NPO (05/09/16 19:28) (Hub Use Only)Inp Phy Cons/Ref (05/09/16 ) Admit Order (Ed Use Only) (05/09/16 21:57) Labs Laboratory Tests Test 05/09/16 05/09/16 18:25 20:00 White Blood Count 16.2 TH/MM3 Red Blood Count 3.14 MIL/MM3 Hemoglobin 9.3 GM/DL Hematocrit 29.3 % Mean Corpuscular Volume 93.4 FL Mean Corpuscular Hemoglobin 29.5 PG Mean Corpuscular Hemoglobin 31.6 % Concent Red Cell Distribution Width 18.9 % Platelet Count 369 TH/MM3 Mean Platelet Volume 8.7 FL Neutrophils (%) (Auto) 82.0 % Lymphocytes (%) (Auto) 10.0 % Monocytes (%) (Auto) 7.7 % Eosinophils (%) (Auto) 0.0 % Basophils (%) (Auto) 0.3 % Neutrophils # (Auto) 13.3 TH/MM3 Lymphocytes # (Auto) 1.6 TH/MM3 Monocytes # (Auto) 1.2 TH/MM3 Eosinophils # (Auto) 0.0 TH/MM3 Basophils # (Auto) 0.1 TH/MM3 CBC Comment DIFF FINAL Differential Comment Sodium Level 142 MEQ/L Potassium Level 4.7 MEQ/L Chloride Level 94 MEQ/L Carbon Dioxide Level 35.9 MEQ/L Anion Gap 12 MEQ/L Blood Urea Nitrogen 42 MG/DL Creatinine 6.20 MG/DL Estimat Glomerular Filtration 11 ML/MIN Rate Random Glucose 194 MG/DL Lactic Acid Level 3.8 mmol/L Calcium Level 9.2 MG/DL Total Bilirubin 0.5 MG/DL Aspartate Amino Transf 61 U/L (AST/SGOT) Alanine Aminotransferase 22 U/L (ALT/SGPT) Alkaline Phosphatase 78 U/L Total Protein 9.4 GM/DL Albumin 2.4 GM/DL MDM Supervised Visit with JONO: No Critical Care Narrative Aggregate critical care time was 45 minutes. Time to perform other separately billable procedures was not included in the critical care time. My time did not include minutes spent treating any other patients simultaneously or on activities that did not directly contribute to the patient's treatment. The services I provided to this patient were to treat and/or prevent clinically significant deterioration that could result in: cardiovascular collapse or . I provided critical care services requiring my management, as noted below: Chart data review, documentation time, medication orders and management, vital sign assessments/reviewing monitor data, ordering and reviewing lab tests, ordering and interpreting/reviewing x-rays and diagnostic studies, care of the patient and discussion of the patient with the admitting physicians. HemaPrompt Test Point of Care Internal Pos. & Neg. Controls: Passed Gastric Specimen Occult Blood: Positive Diagnosis Primary Impression: GI bleed Qualified Code: K92.2 - Gastrointestinal hemorrhage, unspecified gastrointestinal hemorrhage type Melody Fong DO May 09, 2016 18:47
[2016-05-09] MEDS ORDERED: PANTOPRAZOLE INJ 80 MG in SODIUM CHLORIDE 0.9% INJ 35 ML IV ONE (19:00)
[2016-05-09 20:09] VITALS: BP 110/61; PULSE 105; RESP 18; TEMP 98.4; O2SAT 97
[2016-05-09 21:43] LABS: ALKALINE PHOSPHATASE 78 U/L (45-117); ALT (GPT) 22 U/L (12-78); ANION GAP 12 MEQ/L (5-15); AST (GOT) 61 U/L (15-37); BICARBONATE 35.9 MEQ/L (21.0-32.0); BLOOD UREA NITROGEN 42 MG/DL (7-18); CHLORIDE 94 MEQ/L (98-107); GLOMERULAR FILTRATION RATE 11 ML/MIN (>89); POTASSIUM 4.7 MEQ/L (3.5-5.1); SODIUM (NA) 142 MEQ/L (136-145); TOTAL BILIRUBIN ADULT 0.5 MG/DL (0.2-1.0)
[2016-05-09] MEDS: PANTOPRAZOLE INJ 80 MG in SODIUM CHLORIDE 0.9% INJ 100 ML IV SCH (21:48)
[2016-05-09] MEDS ORDERED: SODIUM CHLOR 0.9% 1000 ML INJ 1,000 ML IV SCH (22:13)
[2016-05-09] MEDS ORDERED: SODIUM CHLORIDE 0.9% FLUSH 5 ML FLUSH FLUSH PRN (22:15)
[2016-05-09] MEDS ORDERED: ONDANSETRON HCL 4 MG/2 ML VIAL IV PRN (22:15)
[2016-05-09 23:21] LABS: HEMATOCRIT 26.7 % (39.0-51.0); REVIEW FLAG FINAL
--- NOTE | 2016-05-09 23:35 | HHI.HP ---
[facility] Sharan Hill MD Admission Diagnosis GI bleed Diagnoses: (1) GI bleed Chief Complaint: Vomiting blood Travel History International Travel<30 Days: No Contact w/Intl Traveler <30 Da: No Traveled to Known Affected Are: No History of Present Illness Mr. Sharpe is a 60-year-old male with a past medical history of end-stage renal disease on hemodialysis Tuesday//Tuesday with last hemodialysis yesterday, coronary artery disease, and CVA with left-sided hemiparesis who presented from a alf facility 05/09/16 with complaint of hematemesis. He had 1 episode of vomiting in the ER and Hemoccult testing was positive on the emesis. Mr. Sharpe was seen in the emergency room. He reports that he had nausea and vomiting with emesis that "looks bloody" without fever. He states his symptoms began yesterday and denies any unusual dietary consumption. He reports some mild headache and blurred vision, and productive cough. He denies abdominal pain, diarrhea, constipation, chest pain, shortness of breath. He is awake and alert and able to tell me that we are in the [place], the month is April, but the year as 2017. . Review of Systems Except as stated in HPI: all other systems reviewed are Neg Past Family Social History Past Medical History Patient is a poor historian: the following is from review of medical records Diabetes CVA 10 years ago with left sided residual weakness Hypertension Bipolar disorder Depression Gastroesophageal reflux disease Coronary artery disease status post stent placement Congestive heart failure Paranoid schizophrenia Bipolar disorder Peripheral vascular disease Hyperlipidemia Peripheral neuropathy Hypothyroidism Arthritis Esophagitis Colon polyps . Past Surgical History Patient is a poor historian: the following is from review of medical records EGD Colonoscopy Cardiac catheterization AV fistula placement . Reported Medications Reported Meds & Active Scripts Active Reported Soothing Ointment (Zinc Oxide (Topical)) 10 % Oin 1 Applic TOP TID & PRN PRN Omeprazole 20 Mg Tab 20 Mg PO DAILY Santyl Topical (Collagenase) 250 Unit/Gm Oint 1 Applic TOPICAL HS Remeron (Mirtazapine) 15 Mg Tab 15 Mg PO HS [place] (Hydrocodone-Acetaminophen) 10-325 Mg Tab 1 Tab PO Q12HR PRN Levemir Inj (Insulin Detemir) 1,000 unit/ 10 ML Vial 19 Units SQ DAILY IN THE MORNING Do not mix with any other Insulin. Humalog Inj (Insulin Human Lispro) 1,000 Unit/10 Ml Vial 2-10 Units SQ ACHS Max dose at bedtime:( )units; sugars < 70,(0)units; sugars 150-199,(2)units; sugars 200-249,(4)units; sugars 250-299,(6)units; sugars 300-349,(8)units; sugars 350-399,(10)units. Gentamicin Topical 0.1% Oint 1 Applic TOP HS Doxycycline Hyclate 100 Mg Tab 100 Mg PO BID Zofran (Ondansetron HCl) 8 Mg Tab 8 Mg PO Q6HR PRN Tylenol (Acetaminophen) 325 Mg Tab 650 Mg PO Q4H PRN Trazodone (Trazodone HCl) 150 Mg Tab 150 Mg PO HS Risperdal (Risperidone) 0.5 Mg Tab 0.75 Mg PO Q12HR Renvela Liq (Sevelamer Carbonate) 2.4 Gm Pack 2.4 Gm PO TIDPC Estrella-Rafa (B-Complex W/ C & Folic Acid) 1 Tab 1 Tab PO DAILY Lexapro (Escitalopram Oxalate) 20 Mg Tab 20 Mg PO HS Levemir Inj (Insulin Detemir) 1,000 unit/ 10 ML Vial 15 Units SQ HS Do not mix with any other Insulin. Lamictal (Lamotrigine) 200 Mg Tab 200 Mg PO HS Gabapentin 100 Mg Cap 200 Mg PO DAILY Flomax (Tamsulosin HCl) 0.4 Mg Cap 0.4 Mg PO HS Duoneb (Ipratropium-Albuterol Neb) 0.5-2.5 Mg/3 Ml Neb 1 Nebule INH Q4HR NEB PRN Bisacodyl EC (Bisacodyl) 5 Mg Tabec 10 Mg PO HS Ascorbic Acid 500 Mg Tab 500 Mg PO DAILY . Allergies: Coded Allergies: Methadone (Verified Allergy, Severe, 05/09/16) Darvocet-N 100 (Verified Allergy, Unknown, 05/09/16) PATIENT WAS TOLD TO NEVER TAKE THIS MEDICATION *MDRO Multi-Drug Resistant Organism (Verified Adverse Reaction, Unknown, ESBL, MRSA, 05/09/16) ESBL (sputum & urine) - 06/2015 MRSA (urine) - 02/2012 Active Ordered Medications Current Medications Vancomycin HCl 1000 mg/Sodium Chloride 250 ml @ 250 mls/hr ONCE STAT IV Last administered on 05/09/16 18:52; Start 05/09/16 at 15:41; Stop 05/09/16 at 16:40 ; Status DC Piperacillin Sod/ Tazobactam Sod 100 ml @ 200 mls/hr ONCE STAT IV Last administered on 05/09/16 18:51; Start 05/09/16 at 15:41; Stop 05/09/16 at 16:10 ; Status DC Sodium Chloride 1,000 ml @ 1,000 mls/hr Q1H ONCE IV ; Start 05/09/16 at 15:41; Stop 05/09/16 at 18:48; Status DC Sodium Chloride 1,000 ml @ 1,000 mls/hr Q1H ONCE IV ; Start 05/09/16 at 15:41; Stop 05/09/16 at 18:48; Status DC Sodium Chloride (NS 1000 ml Inj) 100 ml @ 1,000 mls/hr Q6M ONCE IV Last administered on 05/09/16 18:52; Start 05/09/16 at 15:41; Stop 05/09/16 at 15:46 ; Status DC Ondansetron HCl 4 mg 4 mg ONCE ONCE IV PUSH Last administered on 05/09/16 18: 54; Start 05/09/16 at 18:45; Stop 05/09/16 at 18:46; Status DC Pantoprazole Sodium 80 mg/ Sodium Chloride 35 ml @ 420 mls/hr ONCE ONCE IV Last administered on 05/09/16 21:48; Start 05/09/16 at 19:00; Stop 05/09/16 at 19:04; Status DC Pantoprazole Sodium/Sodium Chloride (Protonix Inj/NS Inj) 100 ml @ 10 mls/hr Q10H IV Last administered on 05/09/16 21:48; Start 05/09/16 at 19:00 IV Flush (NS Flush) 2 ml UNSCH PRN FLUSH FLUSH AFTER USING IV ACCESS; Start 02/13 at 22:15 IV Flush 2 ml 2 ml BID FLUSH ; Start 05/10/16 at 09:00 Sodium Chloride (NS 1000 ml Inj) 1,000 ml @ 100 mls/hr Q10H IV Last administered on 05/09/16t 23:16; Start 05/09/16 at 22:13; Stop 05/09/16 at 23:30 ; Status DC Ondansetron HCl (Zofran Inj) 4 mg Q6H PRN IV NAUSEA OR VOMITING; Start at 22:15 . Family History denies any family medical history . Social History tobacco: denies Alcohol: denies Illicit Drugs: denies . Physical Exam Vital Signs Vital Signs Date Time Temp Pulse Resp B/P Pulse Ox O2 Delivery O2 Flow Rate FiO2 05/09/16 20:09 98.4 105 18 110/61 97 Room Air 05/09/16 16:17 97 Nasal Cannula 2 05/09/16 16:17 97 Nasal Cannula 2 05/09/16 15:12 99.3 114 22 97/62 94 Physical Exam GENERAL: This is a well-nourished, well-developed patient, in no apparent distress. SKIN: No rashes, ecchymoses. Cool and dry. Left lower extremity wound HEAD: Atraumatic. Normocephalic. EYES: No scleral icterus. No injection or drainage. ENT: Nose without bleeding, purulent drainage. NECK: Trachea midline. No JVD or lymphadenopathy. CARDIOVASCULAR: Regular rate and rhythm without murmurs, gallops, or rubs. RESPIRATORY: Clear to auscultation. Breath sounds equal bilaterally. No wheezes , rales, or rhonchi. GASTROINTESTINAL: Abdomen soft, non-tender, nondistended. No guarding. MUSCULOSKELETAL: Extremities without clubbing, cyanosis. No calf tenderness. left sided hemiparesis with contractions. Extremities with atrophy of muscles. NEUROLOGICAL: He is awake and alert and able to tell me that we are in the [place], the month is April, but the year as 2017. . Laboratory Laboratory Tests Test 05/09/16 05/09/16 05/09/16 18:25 20:00 22:30 White Blood Count 16.2 Red Blood Count 3.14 Hemoglobin 9.3 8.5 Hematocrit 29.3 26.7 Mean Corpuscular Volume 93.4 Mean Corpuscular Hemoglobin 29.5 Mean Corpuscular Hemoglobin 31.6 Concent Red Cell Distribution Width 18.9 Platelet Count 369 Mean Platelet Volume 8.7 Neutrophils (%) (Auto) 82.0 Lymphocytes (%) (Auto) 10.0 Monocytes (%) (Auto) 7.7 Eosinophils (%) (Auto) 0.0 Basophils (%) (Auto) 0.3 Neutrophils # (Auto) 13.3 Lymphocytes # (Auto) 1.6 Monocytes # (Auto) 1.2 Eosinophils # (Auto) 0.0 Basophils # (Auto) 0.1 CBC Comment DIFF FINAL Differential Comment Sodium Level 142 Potassium Level 4.7 Chloride Level 94 Carbon Dioxide Level 35.9 Anion Gap 12 Blood Urea Nitrogen 42 Creatinine 6.20 Estimat Glomerular Filtration 11 Rate Random Glucose 194 Lactic Acid Level 3.8 Calcium Level 9.2 Total Bilirubin 0.5 Aspartate Amino Transf 61 (AST/SGOT) Alanine Aminotransferase 22 (ALT/SGPT) Alkaline Phosphatase 78 Total Protein 9.4 Albumin 2.4 Blood Type B POSITIVE Date/Time Procedure Status Source Growth 05/09/16 18:30 Aerobic Blood Culture Received Blood Peripheral Pending 05/09/16 18:30 Anaerobic Blood Culture Received Blood Peripheral Pending Result Diagram: 05/09/16 2230 05/09/161999 Imaging Chest x-ray with no acute cardiopulmonary disease. Assessment and Plan Problem List: (1) GI bleed ICD Code: K92.2 Status: Acute Assessment and Plan GI bleed - Protonix drip - Keep nothing by mouth - Consult gastroenterology; assistance appreciated - Serial H&H; transfuse for hemoglobin less than 8 - Type and screen - Continuous cardiac telemetry - Monitor I and O - Zofran 4 mg IV push every 6 hours as needed for nausea and vomiting End-stage renal failure - Consult nephrology to continue hemodialysis; assistance appreciated Diabetes mellitus - Patient currently nothing by mouth - Hold A.M. Levemir for now - Accu-Cheks before meals and at bedtime with low-dose sliding scale NovoLog coverage - Hypoglycemia protocol in place - Monitor trends and blood glucose levels and adjust treatment as needed - Resume A.M. levemir following endoscopy tomorrow DVT prophylaxis - SCDs - chemoprophylaxis contraindicated by GI bleed Written by Citlaly Sarabia, acting as scribe for Dr. Freitas on 05/09/16 at 23: 35. . All or portions of this note were transcribed by scribe Citlaly Wells, [employer]. I, Dr. Yaakov Freitas personally performed the history, physical exam, and medical decision making; and confirmed the accuracy of the information in the transcribed note. Authenticated by Dr. Yaakov Freitas on 05/10/16 at 05:46. Code Status FULL CODE . Discussed Condition With ER physician, RN, and patient . Physician Certification 2 Midnight Certification Type: Admission for Inpatient Services Order for Inpatient Services The services are ordered in accordance with Medicare regulations or non- Medicare payer requirements, as applicable. In the case of services not specified as inpatient-only, they are appropriately provided as inpatient services in accordance with the 2-midnight benchmark. Estimated LOS (days): 3 days is the estimated time the patient will need to remain in the hospital, assuming treatment plan goals are met and no additional complications. Post-Hospital Plan: Not yet determined Problem Qualifiers (1) GI bleed: Qualified Code: K92.2 - Gastrointestinal hemorrhage, unspecified gastrointestinal hemorrhage type Citlaly Sarabia May 09, 2016 23:35 Yaakov Freitas MD May 10, 2016 05:47
[2016-05-10] VITALS (10 sets, daily range): BP systolic 101–150; BP diastolic 53–70; PULSE 68–102; RESP 16–18; TEMP 97.5–98.4; O2SAT 93–100
[2016-05-10] MEDS ORDERED: DEXTROSE 50% IN WATER 50 ML VIAL(D50) IV PUSH PRN (01:45)
[2016-05-10] MEDS ORDERED: GLUCAGON 1 MG/ML VIAL OTHER PRN (01:45)
[2016-05-10 03:56] LABS: AUTOMATED NEUTROPHIL # 11.3 TH/MM3 (1.8-7.7); BASOPHIL # 0.1 TH/MM3 (0-0.2); BASOPHIL % 0.9 % (0.0-2.0); EOSINOPHIL # 0.1 TH/MM3 (0-0.4); EOSINOPHIL % 0.8 % (0.0-4.0); HEMATOCRIT 28.2 % (39.0-51.0); HEMO FLAGS DIFF FINAL; LYMPH % 12.5 % (9.0-44.0); LYMPHOCYTE # 1.8 TH/MM3 (1.0-4.8); MEAN CELL VOLUME 93.7 FL (80.0-100.0); MEAN CORPUSCULAR HEMOGLOBIN 29.1 PG (27.0-34.0); MONO % 7.7 % (0.0-8.0); NEUT % 78.1 % (16.0-70.0); PLATELET COUNT 336 TH/MM3 (150-450); RED CELL DISTRIBUTION WIDTH 19.1 % (11.6-17.2); WHITE BLOOD COUNT 14.5 TH/MM3 (4.0-11.0)
[2016-05-10 04:16] LABS: ALKALINE PHOSPHATASE 73 U/L (45-117); ALT (GPT) 13 U/L (12-78); TOTAL BILIRUBIN ADULT 0.4 MG/DL (0.2-1.0)
[2016-05-10 04:18] LABS: ANION GAP 12 MEQ/L (5-15); AST (GOT) 18 U/L (15-37); BICARBONATE 31.5 MEQ/L (21.0-32.0); BLOOD UREA NITROGEN 45 MG/DL (7-18); CHLORIDE 101 MEQ/L (98-107); GLOMERULAR FILTRATION RATE 11 ML/MIN (>89); POTASSIUM 4.2 MEQ/L (3.5-5.1); SODIUM (NA) 144 MEQ/L (136-145)
[2016-05-10] MEDS: PANTOPRAZOLE INJ 80 MG in SODIUM CHLORIDE 0.9% INJ 100 ML IV SCH ×2 (05:40→15:00)
[2016-05-10] MEDS ORDERED: INSULIN ASPART SUPPLEMENTAL SCALE SQ SCH (07:00)
[2016-05-10] MEDS: SODIUM CHLORIDE 0.9% FLUSH 5 ML FLUSH FLUSH SCH ×2 (09:00→21:00)
[2016-05-10] MEDS ORDERED: PANTOPRAZOLE SOD 20 MG DELAYED RELEASE TAB PO SCH (09:00)
[2016-05-10] MEDS: GABAPENTIN 100 MG CAP PO SCH (09:13)
[2016-05-10] MEDS: DOXYCYCLINE HYCLATE 100 MG TAB PO SCH ×2 (09:13→22:06)
[2016-05-10] MEDS: ASCORBIC ACID 500 MG TAB PO SCH (09:13)
[2016-05-10] MEDS: risperiDONE 0.25 MG TAB PO SCH ×2 (09:14→22:07)
--- NOTE | 2016-05-10 09:19 | PD.CONS ---
HPI History of Present Illness This is a 60 year old male who was brought to the ED from a half-way facility on 05/09/16 with complaints of hematemesis. He states he had been vomiting for 2 days. He had one episode of vomiting coffee ground emesis in the ED with which was heme positive. He had a recent EGD done on 03/16/16 which showed severe Grade D esophagitis and a hiatal hernia. A possible repeat EGD/ colonoscopy was done on 04/16/16, the patient is a poor historian. HGB has dropped to 8.5 from 9.7 on admission. Has a PMH of end stage renal disease on dialysis, he states last dialysis treatment was on Tuesday, CVA with left sided hemiparesis, DM, and CAD. He was upset at the end of my visit using 4 letter words regarding the procedure, nursing was informed of pts behavior. ( Jessenia Pugh) PFSH Past Medical History Patient is a poor historian: the following is from review of medical records Diabetes CVA 10 years ago with left sided residual weakness Hypertension Bipolar disorder Depression Gastroesophageal reflux disease Coronary artery disease status post stent placement Congestive heart failure Paranoid schizophrenia Bipolar disorder Peripheral vascular disease Hyperlipidemia Peripheral neuropathy Hypothyroidism Arthritis Esophagitis Colon polyps . Past Surgical History Patient is a poor historian: the following is from review of medical records EGD Colonoscopy Cardiac catheterization AV fistula placement . (Jessenia Pugh) Coded Allergies: Methadone (Verified Allergy, Severe, 05/09/16) Darvocet-N 100 (Verified Allergy, Unknown, 05/09/16) PATIENT WAS TOLD TO NEVER TAKE THIS MEDICATION *MDRO Multi-Drug Resistant Organism (Verified Adverse Reaction, Unknown, ESBL, MRSA, 05/09/16) ESBL (sputum & urine) - 06/2015 MRSA (urine) - 02/2012 Medications Reported Meds & Active Scripts Active Reported Soothing Ointment (Zinc Oxide (Topical)) 10 % Oin 1 Applic TOP TID & PRN PRN Omeprazole 20 Mg Tab 20 Mg PO DAILY Santyl Topical (Collagenase) 250 Unit/Gm Oint 1 Applic TOPICAL HS Remeron (Mirtazapine) 15 Mg Tab 15 Mg PO HS [place] (Hydrocodone-Acetaminophen) 10-325 Mg Tab 1 Tab PO Q12HR PRN Levemir Inj (Insulin Detemir) 1,000 unit/ 10 ML Vial 19 Units SQ DAILY IN THE MORNING Do not mix with any other Insulin. Humalog Inj (Insulin Human Lispro) 1,000 Unit/10 Ml Vial 2-10 Units SQ ACHS Max dose at bedtime:( )units; sugars < 70,(0)units; sugars 150-199,(2)units; sugars 200-249,(4)units; sugars 250-299,(6)units; sugars 300-349,(8)units; sugars 350-399,(10)units. Gentamicin Topical 0.1% Oint 1 Applic TOP HS Doxycycline Hyclate 100 Mg Tab 100 Mg PO BID Zofran (Ondansetron HCl) 8 Mg Tab 8 Mg PO Q6HR PRN Tylenol (Acetaminophen) 325 Mg Tab 650 Mg PO Q4H PRN Trazodone (Trazodone HCl) 150 Mg Tab 150 Mg PO HS Risperdal (Risperidone) 0.5 Mg Tab 0.75 Mg PO Q12HR Renvela Liq (Sevelamer Carbonate) 2.4 Gm Pack 2.4 Gm PO TIDPC Estrella-Rafa (B-Complex W/ C & Folic Acid) 1 Tab 1 Tab PO DAILY Lexapro (Escitalopram Oxalate) 20 Mg Tab 20 Mg PO HS Levemir Inj (Insulin Detemir) 1,000 unit/ 10 ML Vial 15 Units SQ HS Do not mix with any other Insulin. Lamictal (Lamotrigine) 200 Mg Tab 200 Mg PO HS Gabapentin 100 Mg Cap 200 Mg PO DAILY Flomax (Tamsulosin HCl) 0.4 Mg Cap 0.4 Mg PO HS Duoneb (Ipratropium-Albuterol Neb) 0.5-2.5 Mg/3 Ml Neb 1 Nebule INH Q4HR NEB PRN Bisacodyl EC (Bisacodyl) 5 Mg Tabec 10 Mg PO HS Ascorbic Acid 500 Mg Tab 500 Mg PO DAILY Family History Mother had breast CA Father ETOH . Social History tobacco: denies Alcohol: denies Illicit Drugs: denies . (Jessenia Pugh) Review of Systems Gastrointestinal: COMPLAINS OF: Abdominal pain, Hematemesis (Jessenia Pugh) GI Exam Vitals I&O Vital Signs Date Time Temp Pulse Resp B/P Pulse Ox O2 Delivery O2 Flow Rate FiO2 05/10/16 07:29 97.5 96 16 120/59 95 05/10/16 06:49 90 05/10/16 04:45 97.7 68 18 101/58 97 05/10/16 01:02 98.4 101 18 104/57 93 05/10/16 00:01 98.1 101 18 108/53 96 Room Air 05/09/16 20:09 98.4 105 18 110/61 97 Room Air 05/09/16 16:17 97 Nasal Cannula 2 05/09/16 16:17 97 Nasal Cannula 2 05/09/16 15:12 99.3 114 22 97/62 94 Laboratory Test 05/09/16 05/09/16 05/09/16 05/10/16 18:25 20:00 22:30 01:13 White Blood Count 16.2 TH/MM3 Red Blood Count 3.14 MIL/MM3 Hemoglobin 9.3 GM/DL 8.5 GM/DL Hematocrit 29.3 % 26.7 % Mean Corpuscular Volume 93.4 FL Mean Corpuscular Hemoglobin 29.5 PG Mean Corpuscular Hemoglobin 31.6 % Concent Red Cell Distribution Width 18.9 % Platelet Count 369 TH/MM3 Mean Platelet Volume 8.7 FL Neutrophils (%) (Auto) 82.0 % Lymphocytes (%) (Auto) 10.0 % Monocytes (%) (Auto) 7.7 % Eosinophils (%) (Auto) 0.0 % Basophils (%) (Auto) 0.3 % Neutrophils # (Auto) 13.3 TH/MM3 Lymphocytes # (Auto) 1.6 TH/MM3 Monocytes # (Auto) 1.2 TH/MM3 Eosinophils # (Auto) 0.0 TH/MM3 Basophils # (Auto) 0.1 TH/MM3 CBC Comment DIFF FINAL Differential Comment Sodium Level 142 MEQ/L Potassium Level 4.7 MEQ/L Chloride Level 94 MEQ/L Carbon Dioxide Level 35.9 MEQ/L Anion Gap 12 MEQ/L Blood Urea Nitrogen 42 MG/DL Creatinine 6.20 MG/DL Estimat Glomerular Filtration 11 ML/MIN Rate Random Glucose 194 MG/DL Calcium Level 9.2 MG/DL Total Bilirubin 0.5 MG/DL Aspartate Amino Transf 61 U/L (AST/SGOT) Alanine Aminotransferase 22 U/L (ALT/SGPT) Alkaline Phosphatase 78 U/L Total Protein 9.4 GM/DL Albumin 2.4 GM/DL Lactic Acid Level 3.8 mmol/L 3.3 mmol/L Blood Type B POSITIVE Antibody Screen NEGATIVE Test 05/10/16 03:46 White Blood Count 14.5 TH/MM3 Red Blood Count 3.00 MIL/MM3 Hemoglobin 8.7 GM/DL Hematocrit 28.2 % Mean Corpuscular Volume 93.7 FL Mean Corpuscular Hemoglobin 29.1 PG Mean Corpuscular Hemoglobin 31.0 % Concent Red Cell Distribution Width 19.1 % Platelet Count 336 TH/MM3 Mean Platelet Volume 7.7 FL Neutrophils (%) (Auto) 78.1 % Lymphocytes (%) (Auto) 12.5 % Monocytes (%) (Auto) 7.7 % Eosinophils (%) (Auto) 0.8 % Basophils (%) (Auto) 0.9 % Neutrophils # (Auto) 11.3 TH/MM3 Lymphocytes # (Auto) 1.8 TH/MM3 Monocytes # (Auto) 1.1 TH/MM3 Eosinophils # (Auto) 0.1 TH/MM3 Basophils # (Auto) 0.1 TH/MM3 CBC Comment DIFF FINAL Differential Comment Sodium Level 144 MEQ/L Potassium Level 4.2 MEQ/L Chloride Level 101 MEQ/L Carbon Dioxide Level 31.5 MEQ/L Anion Gap 12 MEQ/L Blood Urea Nitrogen 45 MG/DL Creatinine 6.38 MG/DL Estimat Glomerular Filtration 11 ML/MIN Rate Random Glucose 169 MG/DL Calcium Level 9.1 MG/DL Total Bilirubin 0.4 MG/DL Aspartate Amino Transf 18 U/L (AST/SGOT) Alanine Aminotransferase 13 U/L (ALT/SGPT) Alkaline Phosphatase 73 U/L Total Protein 8.5 GM/DL Albumin 2.4 GM/DL Date/Time Procedure Status Source Growth 05/09/16 18:30 Aerobic Blood Culture Received Blood Peripheral Pending 05/09/16 18:30 Anaerobic Blood Culture Received Blood Peripheral Pending Physical Examination HEENT: Pupils round and reactive to light; normocephalic; atraumatic; no jaundice. Throat is clear. NECK: Neck is supple, no JVD, no lymphadenopathy. CHEST: Chest is clear to auscultation and percussion. CARDIAC: Regular rate and rhythm with no murmur gallop or rubs. ABDOMEN: Soft, nondistended, mild generalized tenderness; no hepatosplenomegaly ; bowel sounds are present in all four quadrants. EXTREMITIES: left sided hemiparesis SKIN: Normal; no rash; no jaundice. SKID WORKER: No focal deficits; alert and oriented times three. (Jessenia Pugh) Assessment and Plan Assessment: (1) GI bleed (2) Acute blood loss anemia (3) GERD with esophagitis (4) Nausea & vomiting Plan Plan -Follow serial H&H -Transfuse PRBC's PRN to keep Hgb > 7.0 -Continue Protonix drip -NPO -Antiemetics PRN -Consent for Endoscopy -EGD today -DM per primary team -ESRD per nephrology -Supportive care Patient was seen and examined by Dr Hopkins and myself this consult is written on his behalf. (Jessenia Pugh) Physician Comments Seen and examined with PAGE, no active bleeding. Egd today. Monitor labs. discussed with Dr. Lee. Thank you (Joann Hopkins MD) Problem Qualifiers (1) GI bleed: Qualified Code: K92.2 - Gastrointestinal hemorrhage, unspecified gastrointestinal hemorrhage type (2) Nausea & vomiting: Qualified Code: K92.0 - Hematemesis with nausea Jessenia Pugh May 10, 2016 09:18 Joann Hopkins MD May 10, 2016 12:10
[2016-05-10] MEDS: SEVELAMER CARBONATE 800 MG TAB PO SCH ×3 (09:30→18:30)
[2016-05-10] MEDS ORDERED: ACETAMINOPHEN/HYDROcodone 325 MG/10 MG TAB PO PRN (10:30)
[2016-05-10] MEDS: INSULIN ASPART SUPPLEMENTAL SCALE SQ SCH ×3 (11:00→21:00)
[2016-05-10 11:48] LABS: HEMATOCRIT 28.2 % (39.0-51.0); REVIEW FLAG FINAL
--- NOTE | 2016-05-10 12:19 | HHI.PR ---
Subjective Remarks Follow up for hematemesis. The patient reports that he still doesn't feel well. Denies nausea/vomiting today. Still with mild epigastric pains. No diarrhea. No fevers/chills. Discussed with Dr. Hopkins, going for EGD today. Discussed with RN, caution with IVF, reportedly received total of 1450cc overnight. Patient denies SOB. He will be due for dialysis tomorrow. Objective Vitals Vital Signs Date Time Temp Pulse Resp B/P Pulse Ox O2 Delivery O2 Flow Rate FiO2 05/10/16 12:01 97.8 102 18 150/67 95 05/10/16 07:29 97.5 96 16 120/59 95 05/10/16 06:49 90 05/10/16 04:45 97.7 68 18 101/58 97 05/10/16 01:02 98.4 101 18 104/57 93 05/10/16 00:01 98.1 101 18 108/53 96 Room Air 05/09/16 20:09 98.4 105 18 110/61 97 Room Air 05/09/16 16:17 97 Nasal Cannula 2 05/09/16 16:17 97 Nasal Cannula 2 05/09/16 15:12 99.3 114 22 97/62 94 Result Diagram: 05/10/16 1135 05/10/16 0346 Imaging 05/09/16 - CXR with no acute findings Objective Remarks GENERAL: Well-developed male patient in NAD. SKIN: Warm and dry. No rash. HEENT: Normocephalic. Atraumatic. Pupils equal and round. No scleral icterus. No injection or drainage. Mucous membranes pink and moist. NECK: Supple. Trachea midline. CARDIOVASCULAR: Regular rate and rhythm. S1, S2 noted. No murmur appreciated. RESPIRATORY: No accessory muscle use. Clear to auscultation. Breath sounds equal bilaterally. GASTROINTESTINAL: Abdomen soft, non-tender, nondistended. Normoactive bowel sounds x4. MUSCULOSKELETAL: Left sided hemiparesis with spastic contraction. Extremities without clubbing or edema. LLE around persaud/calf with multiple open wounds, dressings removed, no surrounding erythema/warmth, no foul odor. NEUROLOGICAL: Awake and alert. No obvious cranial nerve deficits. Moves all extremities spontaneously however with significant left sided weakness. Normal speech. PSYCHIATRIC: Appropriate mood and affect; insight and judgment fair to normal. Medications and IVs Current Medications Medications (Trade) Dose Ordered Sig/Michael Route Start Time Stop Time Status Last Admin (Protonix Inj/NS Inj) 100 ml @ 10 mls/hr Q10H IV 05/09/16 19:00 05/10/16 05:40 (NS Flush) 2 ml UNSCH PRN FLUSH 05/09/16 22:15 (NS Flush) 2 ml BID FLUSH 05/10/16 09:00 (Zofran Inj) 4 mg Q6H PRN IV 05/09/16 22:15 (Vitamin C) 500 mg DAILY PO 05/10/16 09:00 05/10/16 09:13 (Dulcolax Ec) 10 mg HS PO 05/10/16 21:00 (Vibratab) 100 mg BID PO 05/10/16 09:00 05/10/16 09:13 (Lexapro) 20 mg HS PO 05/10/16 21:00 (Neurontin) 200 mg DAILY PO 05/10/16 09:00 05/10/16 09:13 (Gentamicin 0.1% Oint) 1 applic HS TOP 05/10/16 21:00 (LaMICtal) 200 mg HS PO 05/10/16 21:00 (Remeron) 15 mg HS PO 05/10/16 21:00 (risperDAL) 0.75 mg BID PO 05/10/16 09:00 05/10/16 09:14 (Renvela) 2,400 mg TIDPC PO 05/10/16 09:30 (Flomax) 0.4 mg HS PO 05/10/16 21:00 (Desyrel) 150 mg HS PO 05/10/16 21:00 (D50w (Vial) Inj) 25 ml UNSCH PRN IV PUSH 05/10/16 01:45 (Glucagon Inj) 1 mg UNSCH PRN OTHER 05/10/16 01:45 (Levemir Inj) 15 units HS SQ 05/10/16 21:00 (Hyampom 10-325 Mg) 1 tab Q12HR PRN PO 05/10/16 10:30 A/P Problem List: (1) GI bleed ICD Code: K92.2 Status: Acute Assessment and Plan 60-year-old male with a past medical history of end-stage renal disease on hemodialysis Tuesday//Tuesday with last hemodialysis yesterday, coronary artery disease, and CVA with left-sided hemiparesis who presented from a [place] [facility] 05/09/16 with complaint of hematemesis. Upper GI bleed/Hematemesis: episode of emesis in the ER, hemoccult positive. - Continue Protonix drip - Supportive treatment with antiemetics prn; s/p IVF boluses, hold for now to avoid fluid overload with ESRD - Keep NPO - Consult gastroenterology; plan for EGD today - Serial H&H; transfuse for hemoglobin less than 8, Type and screen - Continuous cardiac telemetry - Monitor I and O End-stage renal failure - Consult nephrology to continue hemodialysis; assistance appreciated Diabetes mellitus - Patient currently NPO - Hold morning Levemir today, restart Levemir after EGD - Monitor Accu-Cheks, cover with low-dose sliding scale NovoLog coverage - Hypoglycemia protocol in place Elevated lactic acid. No evidence of infection. Improving with IV hydration. Monitor DVT prophylaxis- SCDs, chemoprophylaxis contraindicated by GI bleed Written by Mackenzie Shelton, acting as scribe for Dr. Lee on 05/10/16 at 11: 06. All or portions of this note were transcribed by scribe []. I, Dr. Chirag Lee personally performed the history, physical exam, and medical decision making; and confirmed the accuracy of the information in the transcribed note. Authenticated by Dr. Chirag Lee on 05/10/16 at 16:39. Discharge Planning Possible discharge back to SNF today if Hgb stable and EGD unremarkable. Problem Qualifiers (1) GI bleed: Qualified Code: K92.2 - Gastrointestinal hemorrhage, unspecified gastrointestinal hemorrhage type Mackenzie Shelton PA-C May 10, 2016 12:19 Chirag Lee MD May 10, 2016 16:39
[2016-05-10] MEDS ORDERED: PROPOFOL 200 MG/20 ML AMP IV ONE (13:14)
[2016-05-10] MEDS ORDERED: PEG (High)/E-LYTE SOLN 4000 ML BTL PO ONE (13:45)
--- NOTE | 2016-05-10 14:57 | GIPROC ---
[facility] [address] [facility]. 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 TOPICAL ANESTHETIC: CONSENT: The patient understands the risks and benefits of the procedure and understands that these risks include, but are not limited to: sedation, allergic reaction, infection, perforation and/or bleeding. Alternative means of evaluation and treatment include, among others: physical exam, x-rays, and/or surgical intervention. The patient elects to proceed with this endoscopic procedure. medical equipment was checked for proper function. Hand hygiene and appropriate measures for infection prevention was taken. After the risks, benefits and alternatives of the procedure were thoroughly explained, Informed consent was verified, confirmed and timeout was successfully executed by the treatment team. The patient was anesthetized with topical anesthesia and the Pentax EG-[id number] endoscope was introduced through the mouth and advanced to the second portion of the duodenum. Retroflexed views revealed no abnormalities The gastroscope was then slowly withdrawn and removed. STOMACH: There was mild gastritis in the gastric antrum. A biopsy was performed. ADVERSE EVENTS: There were no complications. IMPRESSIONS: 1. There was mild gastritis in the gastric antrum; biopsy was performed 2. Retroflexed views revealed no abnormalities RECOMMENDATIONS: 1. Anti-reflux regimen 2. Continue PPI 3. Colonoscopy PATIENT CONDITION: stable DISPOSITION: Inpatient REPEAT EXAM: Return as needed for EGD Joann Hopkins MD eSigned: Joann Hopkins MD 05/10/2016 2:57 PM cc: [id number]
[2016-05-10] MEDS: GENTAMICIN SULFATE 0.1% OINT 15 GM TUBE TOP SCH (22:06)
[2016-05-10] MEDS: traZODone HCL 50 MG TAB PO SCH (22:06)
[2016-05-10] MEDS: INSULIN DETEMIR 100 UNITS/ML VIAL SQ SCH (22:07)
[2016-05-10] MEDS: lamoTRIgine 100 MG TAB PO SCH (22:07)
[2016-05-10] MEDS: TAMSULOSIN HCL 0.4 MG CAP PO SCH (22:07)
[2016-05-10] MEDS: ESCITALOPRAM OXALATE 20 MG TAB PO SCH (22:08)
[2016-05-10] MEDS: BISACODYL EC 5 MG TABEC PO SCH (22:08)
[2016-05-10] MEDS: MIRTAZAPINE 15 MG TAB PO SCH (22:08)
[2016-05-10] MEDS ORDERED: SODIUM CHLOR 0.9% 1000 ML INJ 1,000 ML IV PRN ×3 (23:22)
[2016-05-10] MEDS ORDERED: diphenhydrAMINE HCL 25 MG CAP PO PRN (23:30)
[2016-05-10] MEDS ORDERED: HEPARIN SODIUM - IV 10,000 UNITS/10 ML VIAL IVF PRN (23:30)
[2016-05-10] MEDS ORDERED: ONDANSETRON HCL 4 MG/2 ML VIAL IV PRN (23:30)
[2016-05-10] MEDS ORDERED: HEPARIN SODIUM - IV 10,000 UNITS/10 ML VIAL PRN (23:30)
[2016-05-10] MEDS ORDERED: ACETAMINOPHEN 325 MG TAB PO PRN (23:30)
[2016-05-10] MEDS ORDERED: ALBUMIN HUMAN 25% 25 GM/100 ML BAGP IV PRN (23:30)
[2016-05-10] MEDS ORDERED: EPOETIN ALFA 10,000 UNITS/ML VIAL IV PRN (23:30)
[2016-05-10] MEDS ORDERED: cloNIDine HCL 0.1 MG TAB PO PRN (23:30)
[2016-05-10] MEDS ORDERED: NITROGLYCERIN 0.4 MG SL 25 TABS/BTL SL PRN (23:30)
[2016-05-10] MEDS ORDERED: SODIUM CHLORIDE 0.9% FLUSH 5 ML FLUSH IVF PRN (23:30)
[2016-05-10] MEDS ORDERED: GENTAMICIN SULFATE (DIALYSIS USE ONLY) 20 MG/2 ML VIAL IV PRN (23:30)
[2016-05-10] MEDS ORDERED: MANNITOL 12.5 GM/50 ML VIAL IV PRN (23:30)
[2016-05-10] MEDS ORDERED: GELATIN 12 MM/7 MM FOAM TOP PRN (23:30)
[2016-05-11] VITALS (9 sets, daily range): BP systolic 70–137; BP diastolic 50–76; PULSE 68–104; RESP 12–22; TEMP 95.4–98.8; O2SAT 95–100
[2016-05-11] MEDS: PANTOPRAZOLE INJ 80 MG in SODIUM CHLORIDE 0.9% INJ 100 ML IV SCH ×2 (00:51→14:28)
[2016-05-11] MEDS: INSULIN ASPART SUPPLEMENTAL SCALE SQ SCH ×4 (06:50→21:00)
--- NOTE | 2016-05-11 09:28 | MB ---
cc: DENNIS SOLOMON MD DATE OF CONSULTATION 05/10/2016 REASON FOR CONSULTATION End-stage renal disease on hemodialysis for management. HISTORY OF PRESENT ILLNESS This is a 60-year-old male known to me from before with a past medical history of hypertension, diabetes mellitus, cerebrovascular accident, history of bipolar disorder, peripheral vascular disease, hypothyroidism, chronic anemia, esophagitis with colonic polyp. He was brought to the hospital because of GI bleeding. I was called to see the patient for the management of dialysis. He has been on hemodialysis Tuesday, and Tuesday and he had his last hemodialysis done on Tuesday. The patient was seen by GI and he underwent endoscopy which showed that he has mild gastritis. The patient is quite sleepy at this time and most of the history was taken from the patient's chart according to which he was sent here from the long term because of the GI bleeding. The patient has peripheral vascular disease and he has a wound in the left lower leg for which he is getting a dressing in the nursing facility. He has trouble swallowing and was n.p.o. for some time and then he has been getting now thickened liquids over there. He had a and still n.p.o. after the procedure. There is no known history of vomiting or diarrhea. PAST MEDICAL HISTORY 1. Hypertension 2. Diabetes mellitus 3. Chronic anemia 4. Schizophrenia 5. Hypothyroidism 6. History of GI bleeding in the past. PAST SURGICAL HISTORY 1. Has AV fistula in the left thigh area. 2. History of multiple endoscopies. 3. Cardiac catheterization 4. Colonoscopy REVIEW OF SYSTEMS The review of the systems is quite limited since he is sleepy. He does wake up and open his eyes, but not answering most of the questions. He keeps looking at the roof and then closes his eyes. He denies any abdominal pain, shortness of breath or chest pain. SOCIAL HISTORY The patient is single. He lives in a nursing facility. There is no history of smoking or alcoholism. FAMILY HISTORY Noncontributory ALLERGIES HE IS ALLERGIC TO DARVOCET AND METHADONE. MEDICATIONS Currently he is on following medications: 1. Doxycycline 100 mg b.i.d. 2. Risperdal 0.75 mg b.i.d. 3. Vitamin C 500 mg daily 4. Neurontin 200 mg once a day 5. Dulcolax 10 mg q.h.s. 6. Lexapro 20 mg q.h.s. 7. Remeron 15 mg q.h.s. 8. Flomax 0.4 mg q.h.s. 9. Trazodone 150 mg q.h.s. 10. Levemir 11. Insulin 15 units subcu q.h.s. 12. Protonix infusion 13. Zofran as needed 14. [place] as needed PHYSICAL EXAM GENERAL: The patient is sleepy. He does wake up, but is not fully oriented. VITAL SIGNS: His last blood pressure is 128/63 temperature 97.8, oxygen saturation 97-100%. HEAD, EYES, EARS, NOSE, AND THROAT: Pupils equally reacting to light. Nonicteric sclerae, conjunctivae pale. NECK: Supple. JVD is not elevated. LUNGS: The patient has bilateral decreased air entry with occasional wheezing. HEART: S1, S2 regular rhythm. ABDOMEN: Soft and lax. There is no tenderness, slightly distended. Bowel sounds positive. EXTREMITIES: He has contracted extremities with a fistula in the left thigh area and a dressing in the left lower leg. INVESTIGATIONS WBC count is 14.5, hemoglobin 8.7. The repeat is 8.6. Sodium is 144, potassium 4.2, chloride 101, bicarb 31.5, BUN 45, creatinine 6.3, AST, ALT normal, total protein is 8.5 with albumin of 2.4. Blood cultures are negative. Chest x-ray is showing that he has no acute lung lesion. ASSESSMENT/PLAN 1. Anemia and GI bleeding 2. Hypertension 3. History of cerebrovascular accident 4. Peripheral vascular disease 5. End-stage renal disease on hemodialysis 6. Diabetes mellitus 7. Malnutrition The patient has a stable hemoglobin. Endoscopy result has been noted. It seems like he does not have any bleeding going on. He is due for hemodialysis tomorrow in the morning and give him Epogen with the dialysis. Follow the hemoglobin level. He is currently n.p.o. We will wait for the GI recommendation, but he was supposed to have repeat swallowing test as an outpatient and if it is not done before, then I will try to get it while he is here. Thank you for the consultation. I will follow the patient while he is in the hospital. MD LITA Green/DJL /10:20 PM /8:05 AM
[2016-05-11] MEDS: SEVELAMER CARBONATE 800 MG TAB PO SCH ×3 (09:30→19:29)
[2016-05-11 09:39] LABS: AUTOMATED NEUTROPHIL # 6.6 TH/MM3 (1.8-7.7); BASOPHIL # 0.1 TH/MM3 (0-0.2); BASOPHIL % 0.6 % (0.0-2.0); EOSINOPHIL # 0.1 TH/MM3 (0-0.4); EOSINOPHIL % 1.5 % (0.0-4.0); HEMATOCRIT 26.3 % (39.0-51.0); HEMO FLAGS DIFF FINAL; LYMPH % 19.4 % (9.0-44.0); LYMPHOCYTE # 1.8 TH/MM3 (1.0-4.8); MEAN CELL VOLUME 92.4 FL (80.0-100.0); MEAN CORPUSCULAR HEMOGLOBIN 29.1 PG (27.0-34.0); MEAN CORPUSCULAR HGB CONC 31.5 % (32.0-36.0); MONO % 5.8 % (0.0-8.0); NEUT % 72.7 % (16.0-70.0); PLATELET COUNT 345 TH/MM3 (150-450); RED BLOOD COUNT 2.84 MIL/MM3 (4.50-5.90); RED CELL DISTRIBUTION WIDTH 18.4 % (11.6-17.2); WHITE BLOOD COUNT 9.1 TH/MM3 (4.0-11.0)
[2016-05-11 09:43] LABS: APTT (PATIENT) 28.2 SEC (24.3-30.1); INTERNATIONAL NORMALIZED RATIO 1.1 RATIO; PROTHROMBIN TIME - PATIENT 12.1 SEC (9.8-11.6)
--- NOTE | 2016-05-11 09:51 | HHI.PR ---
Subjective Remarks Follow-up for GI bleeding and weight loss. The patient was seen going to colonoscopy today. The patient is upset because he wants to eat. He has no specific medical complaints today. Objective Vitals Vital Signs Date Time Temp Pulse Resp B/P Pulse Ox O2 Delivery O2 Flow Rate FiO2 05/11/16 04:36 98.1 80 18 121/76 95 05/11/16 03:20 96 05/11/16 01:30 97.9 68 18 137/74 97 05/11/16 00:21 21 05/10/16 21:06 97.8 69 18 128/63 97 05/10/16 17:23 84 05/10/16 16:01 97.5 81 16 123/70 100 05/10/16 14:44 96 05/10/16 13:46 90 18 107/65 100 05/10/16 13:35 86 16 104/62 100 05/10/16 13:27 97.6 85 16 98/58 97 05/10/16 12:01 97.8 102 18 150/67 95 I/O 05/10/16 05/10/16 05/10/16 05/11/16 05/11/16 05/11/16 07:00 15:00 23:00 07:00 15:00 23:00 Intake Total 1635 ml Balance 1635 ml Intake Oral 1485 ml IV Total 150 ml # Bowel Movements 1 Result Diagram: 05/10/16 1135 05/10/16 0346 Imaging Last Impressions Chest X-Ray 05/09/16 1541 Signed Impressions: Service Date/Time: Monday, May 09, 2016 15:42 - CONCLUSION: No acute cardiopulmonary disease demonstrated. Seun Rodriguez MD Objective Remarks GENERAL: Well-developed well-nourished. In no acute distress. SKIN: Warm and dry. No lesions noted. HEENT: Normocephalic. Pupils equal and round. Mucous membranes pink and moist. CARDIOVASCULAR: Regular rate and rhythm. No murmur appreciated. RESPIRATORY: No accessory muscle use. Clear to auscultation. Breath sounds equal bilaterally. GASTROINTESTINAL: Abdomen soft, non-tender, nondistended. Bowel sounds x4. MUSCULOSKELETAL: No obvious deformities. No clubbing or cyanosis. No edema. NEUROLOGICAL: Awake and alert. Left-sided hemiparesis. Moves upper and lower extremities spontaneously. Normal speech. PSYCHIATRIC: Appropriate mood and affect; insight and judgment fair to normal. Procedures EGD A/P Problem List: (1) GI bleed ICD Code: K92.2 Status: Acute Assessment and Plan 60-year-old male with a past medical history of end-stage renal disease on hemodialysis Tuesday//Tuesday with last hemodialysis yesterday, coronary artery disease, and CVA with left-sided hemiparesis who presented from a [facility] facility 05/09/16 with complaint of hematemesis. Upper GI bleed/Hematemesis: episode of emesis in the ER, hemoccult positive. - Continue Protonix - Supportive treatment with antiemetics prn; s/p IVF boluses, hold for now to avoid fluid overload with ESRD - Diet per GI - Consulted gastroenterology; EGD showed gastritis - Serial H&H; stable currently, transfuse for hemoglobin less than 8 - Continuous cardiac telemetry - Monitor I and O - Improved continue PPI follow-up pathology report next item Weight loss - Family requests a colonoscopy, GI data governance consultant as above, reportedly patient refused procedure. TSH unremarkable. Pending CT of the abdomen and pelvis End-stage renal failure - Consulted nephrology to continue hemodialysis; assistance appreciated Diabetes mellitus - Patient currently NPO, held am Levemir - Resume Levemir after procedures - Monitor Accu-Cheks, cover with low-dose sliding scale NovoLog coverage - Hypoglycemia protocol in place Elevated lactic acid: No evidence of infection. Improving with IV hydration. Monitor DVT prophylaxis- SCDs, chemoprophylaxis contraindicated by GI bleed Written by Felix Khan, acting as scribe for Dr. Lee on 05/11/16 at 09:50. All or portions of this note were transcribed by scribe []. I, Dr. Chirag Lee personally performed the history, physical exam, and medical decision making; and confirmed the accuracy of the information in the transcribed note. Authenticated by Dr. Chirag Lee on 05/11/16 at 16:15. Discharge Planning Possible back to SNF today if cleared by GI. [address] Hopkins. Patient refuses colonoscopy. He recommends getting an abdominal CT with oral contrast, can be done as outpatient. Advance diet. Hemoglobin stable. Will discharge back to SNF today. Problem Qualifiers (1) GI bleed: Qualified Code: K92.2 - Gastrointestinal hemorrhage, unspecified gastrointestinal hemorrhage type Felix Khan May 11, 2016 09:51 Chirag Lee MD May 11, 2016 16:16
[2016-05-11] MEDS ORDERED: INFLUENZA VIRUS VACCINE (QUADRIVALENT) 0.5 ML SYR IM ONE (10:00)
[2016-05-11] MEDS ORDERED: PNEUMOCOCCAL POLYVALENT INJ 25 MCG/0.5 ML SYR IM ONE (10:00)
[2016-05-11] MEDS ORDERED: DIATRIZOATE MEGLUM/DIATRIZOATE SOD 9 ML CUP PO ONE (13:00)
[2016-05-11] MEDS: risperiDONE 0.25 MG TAB PO SCH ×2 (13:46→21:13)
[2016-05-11] MEDS: GABAPENTIN 100 MG CAP PO SCH (13:47)
[2016-05-11] MEDS: DOXYCYCLINE HYCLATE 100 MG TAB PO SCH ×2 (13:47→21:13)
[2016-05-11] MEDS: ASCORBIC ACID 500 MG TAB PO SCH (14:27)
[2016-05-11] MEDS: SODIUM CHLORIDE 0.9% FLUSH 5 ML FLUSH FLUSH SCH ×2 (14:28→21:13)
--- NOTE | 2016-05-11 16:04 | HHI.NPPN ---
Subjective General Problems: Anemia, Edema, Hypertension Renal Failure: End Stage Renal Disease History of Present Illness 60-year-old male known to me from before with a past medical history of hypertension, diabetes mellitus, cerebrovascular accident, history of bipolar disorder, peripheral vascular disease, hypothyroidism, chronic anemia, esophagitis with colonic polyp. He was brought to the hospital because of GI bleeding. I was called to see the patient for the management of dialysis. He has been on hemodialysis Tuesday, and Tuesday. Additional Remarks Patient is alert, seen in AM , during HD, not in distress. Review of Systems General Constitutional: Fatigue Respiratory Lungs: SOB Cardiovascular Cardiac: NOLAN Objective Data Data 05/10/16 05/11/16 19:00 07:00 Intake Total 1635 ml Balance 1635 ml Intake Oral 1485 ml IV Total 150 ml # Bowel Movements 1 Vital Signs Date Time Temp Pulse Resp B/P Pulse Ox O2 Delivery O2 Flow Rate FiO2 05/11/16 15:09 95.6 93 18 98/61 97 05/11/16 14:07 90 05/11/16 12:20 95.4 100 20 70/56 95 05/11/16 04:36 98.1 80 18 121/76 95 05/11/16 03:20 96 05/11/16 01:30 97.9 68 18 137/74 97 05/11/16 00:21 21 05/10/16 21:06 97.8 69 18 128/63 97 05/10/16 17:23 84 05/10/16 16:01 97.5 81 16 123/70 100 -: 05/11/16 0915 05/10/16 0346 Physical Exam General Appearance: No Acute Distress, Comfortable Eyes Eye Exam: Pupils Equal Neck Neck Exam: Neck Supple Pulmonary Resp Exam: Breath Sounds Equal, No Distress, Rhonchi, Decreased Bases Cardiology CV Exam: Regular, Normal Sinus Rhythm Gastrointestinal/Abdomen GI Exam: Soft, Non-Tender, Bowel Sounds Present, Non-Distended Extremeties Extremities Exam: No Edema ([place] legs with muscle atrophy and left lower leg with dressing.) Neurologic Neuro Exam: Alert, Awake Psychiatric Psych Exam: Appropriate Responses Assessment/Plan Assessment Summary: Anemia of CKD, Hypertension, End Stage Renal Disease Problem List: (1) End stage renal disease (2) Anemia (3) Metabolic bone disease (4) Congestive heart failure (CHF) (5) CVA, old, hemiparesis (6) Acute blood loss anemia (7) End stage renal disease Plan Patient has HD done. BP is slightly low but stable. 2 Liters removed. Hgb. is stable. For possible D/C today. Will follow Hgb. as out patient. Natalia Bell MD May 11, 2016 16:04
--- NOTE | 2016-05-11 16:32 | RADRPT ---
EXAM DATE/TIME: 05/11/2016 16:05 [place] COMPARISON: CT ABDOMEN & PELVIS W/O CONTRAST, November 29, 2014, 13:01. CHEST SINGLE AP, May 09, 2016, 15:42. CT ABDOMEN & PELVIS W/O CONTRAST, March 06, 2016, 6:29. INDICATIONS : Abdominal distension with blood in stool. ORAL CONTRAST: Prescribed oral contrast ingested. RADIATION DOSE: 10.09 CTDIvol (mGy) MEDICAL HISTORY : Cardiovascular disease. Hypertension. Diabetes mellitus type 2.Liver disease. SURGICAL HISTORY : None. ENCOUNTER: Initial ACUITY: 1 day PAIN SCALE: 4/10 LOCATION: Abdomen/pelvis TECHNIQUE: Volumetric scanning of the abdomen and pelvis was performed. Using automated exposure control and ad justment of the mA and/or kV according to patient size, radiation dose was kept as low as reasonably achievable to obtain optimal diagnostic quality images. FINDINGS: LOWER LUNGS: There are small less than 5 mm nodules seen at the posterior left lower lobe. These were present prev iously. LIVER: Homogeneous density without lesion. There is no dilation of the biliary tree. No calcified gallston es. SPLEEN: Normal size without lesion. PANCREAS: Within normal limits. KIDNEYS: There is global atrophy of the kidneys. ADRENAL GLANDS: There is a 1.8 cm left adrenal gland mass with a central calcification. This was present in 2014 and is completely unchanged. VASCULAR: There is no aortic aneurysm. There is a vascular stent at the left common femoral and superficial fem oral artery. BOWEL/MESENTERY: There is a 4.4 cm masslike area seen adjacent to the left distal esophagus likely related to hiatal h ernia. The stomach, small bowel, and colon demonstrate no acute abnormality. There is some thickenin g of the lower rectum. There is no free intraperitoneal air or fluid. ABDOMINAL WALL: Within normal limits. RETROPERITONEUM: There is no lymphadenopathy. There is a stable mildly prominent 1.1 cm lymph node in the left externa l iliac region. BLADDER: No wall thickening or mass. REPRODUCTIVE: Within normal limits. INGUINAL: There is no lymphadenopathy or hernia. MUSCULOSKELETAL: Within normal limits for patient age. CONCLUSION: 1. Atrophy of the kidneys. 2. Increased density seen at the distal left esophagus likely related to a hiatal hernia. This was pr esent previously. 3. Thickening of the rectum there is nonspecific. This area can be directly inspected. 4. Stable left adrenal gland mass. Seun Castillo MD on May 11, 2016 at 16:22 Board Certified Radiologist. This report was verified electronically.
--- NOTE | 2016-05-11 17:48 | HHI.GIFU ---
GI Follow-up Note Consult Follow-up Subjective: Patient laying in bed comfortably, no new complaints except asking for food Objective: PHYSICAL EXAMINATION: Vitals signs stable No fever HEENT: Pupils round and reactive to light; normocephalic; atraumatic; no jaundice. Throat is clear. NECK: Neck is supple, no JVD, no lymphadenopathy. CHEST: Chest is clear to auscultation and percussion. CARDIAC: Regular rate and rhythm with no murmur gallop or rubs. ABDOMEN: Soft, nondistended, nontender; no hepatosplenomegaly; bowel sounds are present in all four quadrants. EXTREMITIES: No clubbing, cyanosis, or edema. SKIN: Normal; no rash; no jaundice. UTILITY SERVICE WORKER: No focal deficits; alert and oriented times three. Available Data (labs, X- Rays, Procedues) : Last Impressions Chest X-Ray 05/09/16 1541 Signed Impressions: Service Date/Time: Monday, May 09, 2016 15:42 - CONCLUSION: No acute cardiopulmonary disease demonstrated. Seun Rodriguez MD Laboratory Tests Test 05/09/16 05/09/16 05/09/16 05/10/16 18:25 20:00 22:30 01:13 White Blood Count 16.2 TH/MM3 Red Blood Count 3.14 MIL/MM3 Hemoglobin 9.3 GM/DL 8.5 GM/DL Hematocrit 29.3 % 26.7 % Mean Corpuscular Volume 93.4 FL Mean Corpuscular Hemoglobin 29.5 PG Mean Corpuscular Hemoglobin 31.6 % Concent Red Cell Distribution Width 18.9 % Platelet Count 369 TH/MM3 Mean Platelet Volume 8.7 FL Neutrophils (%) (Auto) 82.0 % Lymphocytes (%) (Auto) 10.0 % Monocytes (%) (Auto) 7.7 % Eosinophils (%) (Auto) 0.0 % Basophils (%) (Auto) 0.3 % Neutrophils # (Auto) 13.3 TH/MM3 Lymphocytes # (Auto) 1.6 TH/MM3 Monocytes # (Auto) 1.2 TH/MM3 Eosinophils # (Auto) 0.0 TH/MM3 Basophils # (Auto) 0.1 TH/MM3 CBC Comment DIFF FINAL Differential Comment Sodium Level 142 MEQ/L Potassium Level 4.7 MEQ/L Chloride Level 94 MEQ/L Carbon Dioxide Level 35.9 MEQ/L Anion Gap 12 MEQ/L Blood Urea Nitrogen 42 MG/DL Creatinine 6.20 MG/DL Estimat Glomerular Filtration 11 ML/MIN Rate Random Glucose 194 MG/DL Calcium Level 9.2 MG/DL Total Bilirubin 0.5 MG/DL Aspartate Amino Transf 61 U/L (AST/SGOT) Alanine Aminotransferase 22 U/L (ALT/SGPT) Alkaline Phosphatase 78 U/L Total Protein 9.4 GM/DL Albumin 2.4 GM/DL Lactic Acid Level 3.8 mmol/L 3.3 mmol/L Blood Type B POSITIVE Antibody Screen NEGATIVE Test 05/10/16 05/10/16 05/11/16 05/11/16 03:46 11:35 09:15 09:27 White Blood Count 14.5 TH/MM3 9.1 TH/MM3 Red Blood Count 3.00 MIL/MM3 2.84 MIL/MM3 Hemoglobin 8.7 GM/DL 8.6 GM/DL 8.3 GM/DL Hematocrit 28.2 % 28.2 % 26.3 % Mean Corpuscular Volume 93.7 FL 92.4 FL Mean Corpuscular Hemoglobin 29.1 PG 29.1 PG Mean Corpuscular Hemoglobin 31.0 % 31.5 % Concent Red Cell Distribution Width 19.1 % 18.4 % Platelet Count 336 TH/MM3 345 TH/MM3 Mean Platelet Volume 7.7 FL 7.6 FL Neutrophils (%) (Auto) 78.1 % 72.7 % Lymphocytes (%) (Auto) 12.5 % 19.4 % Monocytes (%) (Auto) 7.7 % 5.8 % Eosinophils (%) (Auto) 0.8 % 1.5 % Basophils (%) (Auto) 0.9 % 0.6 % Neutrophils # (Auto) 11.3 TH/MM3 6.6 TH/MM3 Lymphocytes # (Auto) 1.8 TH/MM3 1.8 TH/MM3 Monocytes # (Auto) 1.1 TH/MM3 0.5 TH/MM3 Eosinophils # (Auto) 0.1 TH/MM3 0.1 TH/MM3 Basophils # (Auto) 0.1 TH/MM3 0.1 TH/MM3 CBC Comment DIFF FINAL DIFF FINAL Differential Comment Sodium Level 144 MEQ/L Potassium Level 4.2 MEQ/L Chloride Level 101 MEQ/L Carbon Dioxide Level 31.5 MEQ/L Anion Gap 12 MEQ/L Blood Urea Nitrogen 45 MG/DL Creatinine 6.38 MG/DL Estimat Glomerular Filtration 11 ML/MIN Rate Random Glucose 169 MG/DL Calcium Level 9.1 MG/DL Total Bilirubin 0.4 MG/DL Aspartate Amino Transf 18 U/L (AST/SGOT) Alanine Aminotransferase 13 U/L (ALT/SGPT) Alkaline Phosphatase 73 U/L Total Protein 8.5 GM/DL Albumin 2.4 GM/DL Prothrombin Time 12.1 SEC Prothromb Time International 1.1 RATIO Ratio Activated Partial 28.2 SEC Thromboplast Time Lactic Acid Level 0.7 mmol/L Thyroid Stimulating Hormone 1.090 uIU/ML 3rd Gen Allergies Coded Allergies Type Severity Reaction Last Updated Verified Methadone Allergy Severe 05/09/16 Yes Darvocet-N 100 Allergy Unknown 05/09/16 Yes *MDRO Multi-Drug Resistant Organism Adverse Reaction Unknown ESBL, MRSA Yes Active Scripts Medications Dose Route/Sig Days Date Category Dose Instructions Soothing Ointment (Zinc Oxide (Topical)) 10 % Oin 1 Applic TOP TID & PRN PRN 05/09/16 Reported Omeprazole 20 Mg Tab 20 Mg PO DAILY 05/09/16 Reported Santyl Topical (Collagenase) 250 Unit/Gm Oint 1 Applic TOPICAL HS 05/09/16 Reported Remeron (Mirtazapine) 15 Mg Tab 15 Mg PO HS 05/09/16 Reported [place]ir (Hydrocodone-Acetaminophen) 10-325 Mg Tab 1 Tab PO Q12HR PRN 05/09/16 Reported Levemir Inj (Insulin Detemir) 1,000 unit/ 10 ML Vial 19 Units SQ DAILY IN THE MORNING 05/09/16 Reported Do not mix with any other Insulin. Humalog Inj (Insulin Human Lispro) 1,000 Unit/10 Ml Vial 2-10 Units SQ ACHS 05/09/16 Reported Max dose at bedtime:( )units; sugars < 70,(0)units ; sugars 150-199,(2)units; sugars 200-249,(4)units; sugars 250-299,(6)units; sugars 300-349,(8)units; sugars 350-399,(10)units. Gentamicin Topical 0.1% Oint 1 Applic TOP HS 05/09/16 Reported Doxycycline Hyclate 100 Mg Tab 100 Mg PO BID 05/09/16 Reported Zofran (Ondansetron HCl) 8 Mg Tab 8 Mg PO Q6HR PRN 03/06/16 Reported Tylenol (Acetaminophen) 325 Mg Tab 650 Mg PO Q4H PRN 03/06/16 Reported Trazodone (Trazodone HCl) 150 Mg Tab 150 Mg PO HS 03/06/16 Reported Risperdal (Risperidone) 0.5 Mg Tab 0.75 Mg PO Q12HR 03/06/16 Reported Renvela Liq (Sevelamer Carbonate) 2.4 Gm Pack 2.4 Gm PO TIDPC 03/06/16 Reported Estrella-Rafa (B-Complex W/ C & Folic Acid) 1 Tab 1 Tab PO DAILY 03/06/16 Reported Lexapro (Escitalopram Oxalate) 20 Mg Tab 20 Mg PO HS 03/06/16 Reported Levemir Inj (Insulin Detemir) 1,000 unit/ 10 ML Vial 15 Units SQ HS 03/06/16 Reported Do not mix with any other Insulin. Lamictal (Lamotrigine) 200 Mg Tab 200 Mg PO HS 03/06/16 Reported Gabapentin 100 Mg Cap 200 Mg PO DAILY 03/06/16 Reported Flomax (Tamsulosin HCl) 0.4 Mg Cap 0.4 Mg PO HS 03/06/16 Reported Duoneb (Ipratropium-Albuterol Neb) 0.5-2.5 Mg/3 Ml Neb 1 Nebule INH Q4HR NEB PRN 03/06/16 Reported Bisacodyl EC (Bisacodyl) 5 Mg Tabec 10 Mg PO HS 03/06/16 Reported Ascorbic Acid 500 Mg Tab 500 Mg PO DAILY 03/06/16 Reported ASSESSMENT/PLAN: Seen and examined, no bleeding. Refused to do bowel prep for colonoscopy yesterday. CT shows non- specific thickening in the rectum. Discussed with Dr. Lee. Colonoscopy/sigmoidoscopy if agrees. It was a pleasure seeing Mirza Sharpe Thank you for this consult. Entered by: Joann Patel MD May 11, 2016 17:48
[2016-05-11] MEDS ORDERED: SODIUM CHLOR 0.9% 250 ML INJ 250 ML IV PRN (20:45)
[2016-05-11] MEDS: TAMSULOSIN HCL 0.4 MG CAP PO SCH (21:00)
[2016-05-11] MEDS: BISACODYL EC 5 MG TABEC PO SCH (21:00)
[2016-05-11] MEDS: INSULIN DETEMIR 100 UNITS/ML VIAL SQ SCH (21:12)
[2016-05-11] MEDS: traZODone HCL 50 MG TAB PO SCH (21:13)
[2016-05-11] MEDS: lamoTRIgine 100 MG TAB PO SCH (21:13)
[2016-05-11] MEDS: MIRTAZAPINE 15 MG TAB PO SCH (21:13)
[2016-05-11] MEDS: ESCITALOPRAM OXALATE 20 MG TAB PO SCH (21:13)
[2016-05-11] MEDS: GENTAMICIN SULFATE 0.1% OINT 15 GM TUBE TOP SCH (21:14)
[2016-05-11 22:25] LABS: HEMOGLOBIN A1a 0.8 %; HEMOGLOBIN Ao 86.6 %; HEMOGLOBIN F 0.9 %; HEMOGLOBIN LA1C 1.4 %; HEMOGLOBIN P3 4.6 %
[2016-05-12] VITALS: BP 91/58; PULSE 97; RESP 16; TEMP 98.7; O2SAT 98
[2016-05-12 04:00] VITALS: BP 99/56; PULSE 89; RESP 16; TEMP 98.6; O2SAT 95
[2016-05-12] MEDS: INSULIN ASPART SUPPLEMENTAL SCALE SQ SCH ×3 (06:42→16:00)
[2016-05-12 08:00] VITALS: BP 93/50; PULSE 76; RESP 18; TEMP 97.9; O2SAT 95
[2016-05-12 09:00] VITALS: PULSE 74
[2016-05-12] MEDS: ASCORBIC ACID 500 MG TAB PO SCH (09:34)
[2016-05-12] MEDS: DOXYCYCLINE HYCLATE 100 MG TAB PO SCH (09:34)
[2016-05-12] MEDS: GABAPENTIN 100 MG CAP PO SCH (09:34)
[2016-05-12] MEDS: SEVELAMER CARBONATE 800 MG TAB PO SCH ×3 (09:34→18:15)
[2016-05-12] MEDS: risperiDONE 0.25 MG TAB PO SCH (09:34)
[2016-05-12] MEDS: SODIUM CHLORIDE 0.9% FLUSH 5 ML FLUSH FLUSH SCH (09:34)
--- NOTE | 2016-05-12 11:12 | HHI.NPPN ---
Subjective General Problems: Anemia, Edema, Hypertension Renal Failure: End Stage Renal Disease History of Present Illness 60-year-old male known to me from before with a past medical history of hypertension, diabetes mellitus, cerebrovascular accident, history of bipolar disorder, peripheral vascular disease, hypothyroidism, chronic anemia, esophagitis with colonic polyp. He was brought to the hospital because of GI bleeding. I was called to see the patient for the management of dialysis. He has been on hemodialysis Tuesday, and Tuesday. Additional Remarks Patient is alert, not in distress, clinically same. Review of Systems General Constitutional: Fatigue Respiratory Lungs: SOB Cardiovascular Cardiac: NOLAN Objective Data Data 05/11/16 05/12/16 19:00 07:00 Intake Total 400 ml Output Total 2000 ml Balance -2000 ml 400 ml Intake Oral 400 ml Output Hemodialysis 2000 ml # Voids 2 # Bowel Movements 1 Vital Signs Date Time Temp Pulse Resp B/P Pulse Ox O2 Delivery O2 Flow Rate FiO2 05/12/16 09:00 74 05/12/16 08:00 97.9 76 18 93/50 95 05/12/16 04:00 98.6 89 16 99/56 95 05/12/16 00:00 98.7 97 16 91/58 98 05/11/16 20:07 98.8 98 22 83/50 95 05/11/16 20:00 98 05/11/16 16:00 97.9 104 12 88/54 100 05/11/16 15:09 95.6 93 18 98/61 97 05/11/16 14:07 90 05/11/16 12:20 95.4 100 20 70/56 95 -: 05/11/16 0915 05/10/16 0346 Physical Exam General Appearance: No Acute Distress, Comfortable Eyes Eye Exam: Pupils Equal Neck Neck Exam: Neck Supple Pulmonary Resp Exam: Breath Sounds Equal, No Distress, Rhonchi, Decreased Bases Cardiology CV Exam: Regular, Normal Sinus Rhythm Gastrointestinal/Abdomen GI Exam: Soft, Non-Tender, Bowel Sounds Present, Non-Distended Extremeties Extremities Exam: No Edema ([place] legs with muscle atrophy and left lower leg with dressing.) Neurologic Neuro Exam: Alert, Awake Psychiatric Psych Exam: Appropriate Responses Assessment/Plan Assessment Summary: Anemia of CKD, Hypertension, End Stage Renal Disease Problem List: (1) End stage renal disease (2) Anemia (3) Metabolic bone disease (4) Congestive heart failure (CHF) (5) CVA, old, hemiparesis (6) Acute blood loss anemia (7) End stage renal disease Plan HD done yesterday. BP is stable. Possible D/C. To continue HD as out patient. Natalia Bell MD May 12, 2016 11:11 Natalia Bell MD May 12, 2016 11:11
[2016-05-12 12:00] VITALS: BP 93/55; PULSE 86; RESP 18; TEMP 97.1; O2SAT 92
--- NOTE | 2016-05-12 12:21 | HHI.PR ---
Subjective Remarks Follow-up hematemesis. No recurrence. Patient was not discharged to SNF yesterday which is not known is that patient was transferred to [facility]. He has no complaints. BP lower after hemodialysis denies dizziness, chest pain and shortness of breath. Also no rectal pain or bleeding. Discussed with RN Objective Vitals Vital Signs Date Time Temp Pulse Resp B/P Pulse Ox O2 Delivery O2 Flow Rate FiO2 05/12/16 09:00 74 05/12/16 08:00 97.9 76 18 93/50 95 05/12/16 04:00 98.6 89 16 99/56 95 05/12/16 00:00 98.7 97 16 91/58 98 05/11/16 20:07 98.8 98 22 83/50 95 05/11/16 20:00 98 05/11/16 16:00 97.9 104 12 88/54 100 05/11/16 15:09 95.6 93 18 98/61 97 05/11/16 14:07 90 I/O 05/11/16 05/11/16 05/11/16 05/12/16 05/12/16 05/12/16 07:00 15:00 23:00 07:00 15:00 23:00 Intake Total 400 ml Output Total 2000 ml Balance -2000 ml 400 ml Intake Oral 400 ml Output Hemodialysis 2000 ml # Voids 2 # Bowel Movements 1 Result Diagram: 05/11/16 0915 05/10/16 0346 Objective Remarks GENERAL: Well-developed well-nourished. In no acute distress. SKIN: Warm and dry. No lesions noted. HEENT: Normocephalic. Pupils equal and round. Mucous membranes pink and moist. CARDIOVASCULAR: Regular rate and rhythm. No murmur appreciated. RESPIRATORY: No accessory muscle use. Clear to auscultation. Breath sounds equal bilaterally. GASTROINTESTINAL: Abdomen soft, non-tender, nondistended. Bowel sounds x4. MUSCULOSKELETAL: No obvious deformities. No clubbing or cyanosis. No edema. NEUROLOGICAL: Awake and alert. Left-sided hemiparesis. Moves upper and lower extremities spontaneously. Normal speech. PSYCHIATRIC: Appropriate mood and affect; insight and judgment fair to normal. Calm and cooperative Procedures EGD A/P Problem List: (1) GI bleed ICD Code: K92.2 Status: Acute Assessment and Plan 60-year-old male with a past medical history of end-stage renal disease on hemodialysis Tuesday//Tuesday with last hemodialysis yesterday, coronary artery disease, and CVA with left-sided hemiparesis who presented from a senior care facility 05/09/16 with complaint of hematemesis. Upper GI bleed/Hematemesis: episode of emesis in the ER, hemoccult positive. - Continue Protonix - Supportive treatment with antiemetics prn; s/p IVF boluses, hold for now to avoid fluid overload with ESRD - Diet per GI - Consulted gastroenterology; EGD showed gastritis follow-up pathology - Serial H&H; stable currently, transfuse for hemoglobin less than 8 - Continuous cardiac telemetry - Monitor I and O - Improved Weight loss - Family requests a colonoscopy, GI system consultant as above, reportedly patient refused procedure. TSH unremarkable. CT of the abdomen and pelvis with nonspecific rectal thickening, colonoscopy or sigmoidoscopy if patient agrees End-stage renal failure - Consulted nephrology to continue hemodialysis; assistance appreciated Diabetes mellitus. A1c 5.5 -Continue to hold am Levemir - Resume Levemir p.m. dose - Monitor Accu-Cheks, cover with low-dose sliding scale NovoLog coverage - Hypoglycemia protocol in place Elevated lactic acid: No evidence of infection. Improving with IV hydration. Monitor DVT prophylaxis- SCDs, chemoprophylaxis contraindicated by GI bleed Discharge Planning Stable for discharge pending lab results today Problem Qualifiers (1) GI bleed: Qualified Code: K92.2 - Gastrointestinal hemorrhage, unspecified gastrointestinal hemorrhage type Chirag Lee MD May 12, 2016 12:21
--- NOTE | 2016-05-12 12:59 | HHI.DCPOC ---
Discharge Care Plan Diagnosis: (1) GI bleed (2) Weight loss Your Health Problems Are: Incision/Drains Exercise Tolerance Goals to Promote Your Health * To prevent worsening of your condition and complications * To maintain your health at the optimal level Directions to Meet Your Goals Take your medications as prescribed Follow your dietary instruction Follow activity as directed Keep your appointments as scheduled Take your immunizations and boosters as scheduled If your symptoms worsen call your PCP, if no PCP go to Urgent Care Center or Emergency Room Smoking is Dangerous to Your Health. Avoid second hand smoke Call the 24-hour hour crisis hotline for domestic abuse at Chirag Lee MD May 12, 2016 12:59
--- NOTE | 2016-05-12 13:00 | HHI.DS ---
Discharge Summary Admission Date May 09, 2016 at 21:59 Discharge Date: May 12, 2016 Admitting Diagnosis GI bleed (1) GI bleed ICD Code: K92.2 Diagnosis: Principal Procedures EGD Brief History - From Admission Mr. Sharpe is a 60-year-old male with a past medical history of end-stage renal disease on hemodialysis Tuesday//Tuesday with last hemodialysis yesterday, coronary artery disease, and CVA with left-sided hemiparesis who [facility]16 with complaint of hematemesis. He had 1 episode of vomiting in the ER and Hemoccult testing was positive on the emesis. Mr. Sharpe was seen in the emergency room. He reports that he had nausea and vomiting with emesis that "looks bloody" without fever. He states his symptoms began yesterday and denies any unusual dietary consumption. He reports some mild headache and blurred vision, and productive cough. He denies abdominal pain, diarrhea, constipation, chest pain, shortness of breath. He is awake and alert and able to tell me that we are in the [facility], the month is April, but the year as 2017. . CBC/BMP: 05/11/16 0915 05/10/16 0346 Significant Findings Laboratory Tests Test 05/09/16 05/09/16 05/09/16 05/10/16 18:25 20:00 22:30 01:13 White Blood Count 16.2 TH/MM3 (4.0-11.0) Red Blood Count 3.14 MIL/MM3 (4.50-5.90) Hemoglobin 9.3 GM/DL 8.5 GM/DL (13.0-17.0) (13.0-17.0) Hematocrit 29.3 % 26.7 % (39.0-51.0) (39.0-51.0) Mean Corpuscular Hemoglobin 31.6 % Concent (32.0-36.0) Red Cell Distribution Width 18.9 % (11.6-17.2) Neutrophils (%) (Auto) 82.0 % (16.0-70.0) Neutrophils # (Auto) 13.3 TH/MM3 (1.8-7.7) Monocytes # (Auto) 1.2 TH/MM3 (0-0.9) Chloride Level 94 MEQ/L (98-107) Carbon Dioxide Level 35.9 MEQ/L (21.0-32.0) Blood Urea Nitrogen 42 MG/DL (7-18) Creatinine 6.20 MG/DL (0.60-1.30) Estimat Glomerular Filtration 11 ML/MIN (>89) Rate Random Glucose 194 MG/DL (74-106) Aspartate Amino Transf 61 U/L (15-37) (AST/SGOT) Total Protein 9.4 GM/DL (6.4-8.2) Albumin 2.4 GM/DL (3.4-5.0) Lactic Acid Level 3.8 mmol/L 3.3 mmol/L (0.4-2.0) (0.4-2.0) Test 05/10/16 05/10/16 05/11/16 03:46 11:35 09:15 White Blood Count 14.5 TH/MM3 (4.0-11.0) Red Blood Count 3.00 MIL/MM3 2.84 MIL/MM3 (4.50-5.90) (4.50-5.90) Hemoglobin 8.7 GM/DL 8.6 GM/DL 8.3 GM/DL (13.0-17.0) (13.0-17.0) (13.0-17.0) Hematocrit 28.2 % 28.2 % 26.3 % (39.0-51.0) (39.0-51.0) (39.0-51.0) Mean Corpuscular Hemoglobin 31.0 % 31.5 % Concent (32.0-36.0) (32.0-36.0) Red Cell Distribution Width 19.1 % 18.4 % (11.6-17.2) (11.6-17.2) Neutrophils (%) (Auto) 78.1 % 72.7 % (16.0-70.0) (16.0-70.0) Neutrophils # (Auto) 11.3 TH/MM3 (1.8-7.7) Monocytes # (Auto) 1.1 TH/MM3 (0-0.9) Blood Urea Nitrogen 45 MG/DL (7-18) Creatinine 6.38 MG/DL (0.60-1.30) Estimat Glomerular Filtration 11 ML/MIN (>89) Rate Random Glucose 169 MG/DL (74-106) Total Protein 8.5 GM/DL (6.4-8.2) Albumin 2.4 GM/DL (3.4-5.0) Prothrombin Time 12.1 SEC (9.8-11.6) Imaging Last Impressions Abdomen/Pelvis CT 05/11/16 0000 Signed Impressions: Service Date/Time: Wednesday, May 11, 2016 16:05 - CONCLUSION: 1. Atrophy of the kidneys. 2. Increased density seen at the distal left esophagus likely related to a hiatal hernia. This was present previously. 3. Thickening of the rectum there is nonspecific. This area can be directly inspected. 4. Stable left adrenal gland mass. Seun Castillo MD Chest X-Ray 05/09/16 1541 Signed Impressions: Service Date/Time: Monday, May 09, 2016 15:42 - CONCLUSION: No acute cardiopulmonary disease demonstrated. Seun Rodriguez MD PE at Discharge GENERAL: Well-developed well-nourished. In no acute distress. SKIN: Warm and dry. No lesions noted. HEENT: Normocephalic. Pupils equal and round. Mucous membranes pink and moist. CARDIOVASCULAR: Regular rate and rhythm. No murmur appreciated. RESPIRATORY: No accessory muscle use. Clear to auscultation. Breath sounds equal bilaterally. GASTROINTESTINAL: Abdomen soft, non-tender, nondistended. Bowel sounds x4. MUSCULOSKELETAL: No obvious deformities. No clubbing or cyanosis. No edema. NEUROLOGICAL: Awake and alert. Left-sided hemiparesis. Moves upper and lower extremities spontaneously. Normal speech. PSYCHIATRIC: Appropriate mood and affect; insight and judgment fair to normal. Calm and cooperative Hospital Course 60-year-old male with a past medical history of end-stage renal disease on hemodialysis Tuesday//Tuesday with last hemodialysis yesterday, coronary artery disease, and CVA with left-sided hemiparesis who presented from a prison facility 05/[facility]/16 with complaint of hematemesis. Upper GI bleed/Hematemesis: episode of emesis in the ER, hemoccult positive. - Continue Protonix - Supportive treatment with antiemetics prn; s/p IVF boluses, hold for now to avoid fluid overload with ESRD - Diet per GI - Consulted gastroenterology; EGD showed gastritis follow-up pathology - Serial H&H; stable currently, transfuse for hemoglobin less than 8 - Continuous cardiac telemetry - Monitor I and O - Improved Weight loss - Family requests a colonoscopy, GI customer experience consultant as above, reportedly patient refused procedure. TSH unremarkable. CT of the abdomen and pelvis with nonspecific rectal thickening, colonoscopy or sigmoidoscopy if patient agrees End-stage renal failure - Consulted nephrology to continue hemodialysis; assistance appreciated Diabetes mellitus. A1c 5.5 -Continue to hold am Levemir - Resume Levemir p.m. dose - Monitor Accu-Cheks, cover with low-dose sliding scale NovoLog coverage - Hypoglycemia protocol in place Elevated lactic acid: No evidence of infection. Improving with IV hydration. Monitor DVT prophylaxis- SCDs, chemoprophylaxis contraindicated by GI bleed Pt Condition on Discharge: Stable Discharge Disposition: Discharge to SNF Discharge Time: > 30 minutes Discharge Instructions DIET: Follow Instructions for: Renal Failure Diet Activities you can perform: Regular-No Restrictions Follow up Referrals: Gastroenterology - 2 Weeks with Joann Hopkins MD PCP Follow-up - 2-3 Days with Sharan Hill MD Continued Medications: Acetaminophen (Tylenol) 325 Mg Tab 650 MG PO Q4H PRN PAIN SCALE 1 TO 10 Ref 0 TAB Ascorbic Acid (Ascorbic Acid) 500 Mg Tab 500 MG PO DAILY WOUND TAB B-Complex W/ C & Folic Acid (Estrella-Rafa) 1 Tab 1 TAB PO DAILY TAB Bisacodyl DR (Bisacodyl EC) 5 Mg Tabec 10 MG PO HS CONSTIPATION Ref 0 TAB Collagenase Topical (Santyl Topical) 250 Unit/Gm Oint 1 APPLIC TOPICAL HS Wound Management #15 Ref 0 GM Doxycycline Hyclate (Doxycycline Hyclate) 100 Mg Tab 100 MG PO BID WOUND INFECTION TAB Escitalopram (Lexapro) 20 Mg Tab 20 MG PO HS Depression Control #30 Ref 0 TAB Gabapentin (Gabapentin) 100 Mg Cap 200 MG PO DAILY #30 Ref 0 CAP Gentamicin Topical (Gentamicin Topical) 0.1% Oint 1 APPLIC TOP HS Insulin Detemir Inj (Levemir Inj) 1,000 unit/ 10 ML Vial 15 UNITS SQ HS Do not mix with any other Insulin. Blood Sugar Management Ref 0 VIAL Insulin Lispro (Human) Inj (Humalog Inj) 1,000 Unit/10 Ml Vial 2-10 UNITS SQ ACHS Max dose at bedtime:( )units; sugars < 70,(0)units; sugars 150-199,(2)units; sugars 200-249,(4)units; sugars 250-299,(6)units; sugars 300- 349,(8)units; sugars 350-399,(10)units. Blood Sugar Management #1 Ref 0 VIAL Ipratropium-Albuterol Neb (Duoneb) 0.5-2.5 Mg/3 Ml Neb 1 NEBULE INH Q4HR NEB PRN SHORTNESS OF BREATH #120 Ref 0 NEBULE Lamotrigine (Lamictal) 200 Mg Tab 200 MG PO HS BIPOLAR DISORDER #30 Ref 0 TAB Mirtazapine (Remeron) 15 Mg Tab 15 MG PO HS APPETITE #30 Ref 0 TAB Omeprazole (Omeprazole) 20 Mg Tab 20 MG PO DAILY GERD #30 Ref 0 TAB Ondansetron (Zofran) 8 Mg Tab 8 MG PO Q6HR PRN NAUSEA OR VOMITING Ref 0 TAB Risperidone (Risperdal) 0.5 Mg Tab 0.75 MG PO Q12HR #60 Ref 0 TAB Sevelamer Carbonate Liq (Renvela Liq) 2.4 Gm Pack 2.4 GM PO TIDPC Control phosphorus levels #90 Ref 0 PKT Tamsulosin (Flomax) 0.4 Mg Cap 0.4 MG PO HS Manage Prostate Problems #30 Ref 0 CAP Trazodone (Trazodone) 150 Mg Tab 150 MG PO HS Control Depression #30 Ref 0 TAB Zinc Oxide (Topical) (Soothing Ointment) 10 % Oin 1 APPLIC TOP TID & PRN PRN OPEN SKIN Discontinued Medications: Hydrocodone-Acetaminophen (Holman) 10-325 Mg Tab 1 TAB PO Q12HR PRN MODERATE PAIN Ref 0 TAB Chirag Lee MD May 12, 2016 13:00
[2016-05-12 13:02] LABS: BICARBONATE 32.9 MEQ/L (21.0-32.0); MAGNESIUM 1.9 MG/DL (1.5-2.5); POTASSIUM 4.8 MEQ/L (3.5-5.1)
[2016-05-12 13:24] LABS: AUTOMATED NEUTROPHIL # 5.7 TH/MM3 (1.8-7.7); BASOPHIL # 0.1 TH/MM3 (0-0.2); BASOPHIL % 0.8 % (0.0-2.0); EOSINOPHIL # 0.1 TH/MM3 (0-0.4); EOSINOPHIL % 1.3 % (0.0-4.0); HEMATOCRIT 29.2 % (39.0-51.0); HEMO FLAGS DIFF FINAL; LYMPH % 23.4 % (9.0-44.0); MEAN CORPUSCULAR HEMOGLOBIN 29.6 PG (27.0-34.0); MEAN CORPUSCULAR HGB CONC 32.1 % (32.0-36.0); MONO % 8.1 % (0.0-8.0); NEUT % 66.4 % (16.0-70.0); PLATELET COUNT 302 TH/MM3 (150-450); RED BLOOD COUNT 3.17 MIL/MM3 (4.50-5.90); RED CELL DISTRIBUTION WIDTH 18.8 % (11.6-17.2); WHITE BLOOD COUNT 8.6 TH/MM3 (4.0-11.0)
--- NOTE | 2016-05-12 14:22 | HHI.GIFU ---
Subjective Remarks Resting in bed. No rectal bleeding. Denies abdominal pain. Denies bleeding. Does not want colonoscopy. (Tita Infante) Objective Vitals I&O Vital Signs Date Time Temp Pulse Resp B/P Pulse Ox O2 Delivery O2 Flow Rate FiO2 05/12/16 09:00 74 05/12/16 08:00 97.9 76 18 93/50 95 05/12/16 04:00 98.6 89 16 99/56 95 05/12/16 00:00 98.7 97 16 91/58 98 05/11/16 20:07 98.8 98 22 83/50 95 05/11/16 20:00 98 05/11/16 16:00 97.9 104 12 88/54 100 05/11/16 15:09 95.6 93 18 98/61 97 I/O 05/11/16 05/11/16 05/11/16 05/12/16 05/12/16 05/12/16 07:00 15:00 23:00 07:00 15:00 23:00 Intake Total 400 ml Output Total 2000 ml Balance -2000 ml 400 ml Intake Oral 400 ml Output Hemodialysis 2000 ml # Voids 2 # Bowel Movements 1 Laboratory Laboratory Tests Test 05/12/16 12:09 White Blood Count 8.6 Red Blood Count 3.17 Hemoglobin 9.4 Hematocrit 29.2 Mean Corpuscular Volume 92.0 Mean Corpuscular Hemoglobin 29.6 Mean Corpuscular Hemoglobin 32.1 Concent Red Cell Distribution Width 18.8 Platelet Count 302 Mean Platelet Volume 8.4 Neutrophils (%) (Auto) 66.4 Lymphocytes (%) (Auto) 23.4 Monocytes (%) (Auto) 8.1 Eosinophils (%) (Auto) 1.3 Basophils (%) (Auto) 0.8 Neutrophils # (Auto) 5.7 Lymphocytes # (Auto) 2.0 Monocytes # (Auto) 0.7 Eosinophils # (Auto) 0.1 Basophils # (Auto) 0.1 CBC Comment DIFF FINAL Differential Comment Hematology Comments Sodium Level 139 Potassium Level 4.8 Chloride Level 95 Carbon Dioxide Level 32.9 Anion Gap 11 Blood Urea Nitrogen 34 Creatinine 6.54 Estimat Glomerular Filtration 11 Rate Random Glucose 75 Calcium Level 9.0 Magnesium Level 1.9 Date/Time Procedure Status Source Growth 05/09/16 18:30 Aerobic Blood Culture - Preliminary Resulted Blood Peripheral NO GROWTH IN 3 DAYS 05/09/16 18:30 Anaerobic Blood Culture - Preliminary Resulted Blood Peripheral NO GROWTH IN 3 DAYS Imaging Last Impressions Abdomen/Pelvis CT 05/11/16 0000 Signed Impressions: Service Date/Time: Wednesday, May 11, 2016 16:05 - CONCLUSION: 1. Atrophy of the kidneys. 2. Increased density seen at the distal left esophagus likely related to a hiatal hernia. This was present previously. 3. Thickening of the rectum there is nonspecific. This area can be directly inspected. 4. Stable left adrenal gland mass. Seun Castillo MD Chest X-Ray 05/09/16 1541 Signed Impressions: Service Date/Time: Monday, May 09, 2016 15:42 - CONCLUSION: No acute cardiopulmonary disease demonstrated. Seun Rodriguez MD Physical Exam HEENT: Normocephalic; atraumatic; no jaundice. CHEST: CTA CARDIAC: RRR. ABDOMEN: Soft, nondistended, nontender; no hepatosplenomegaly; bowel sounds are present in all four quadrants. EXTREMITIES: No clubbing, cyanosis, or edema. SKIN: Normal; no rash; no jaundice. DIRECTOR BUSINESS MANAGEMENT: No focal deficits; alert and oriented times three. (Tita Infante) Assessment and Plan Plan ASSESSMENT: - GIB, lower. Abdomen/Pelvis CT (05/11/16)----> 1. Atrophy of the kidneys. 2. Increased density seen at the distal left esophagus likely related to a hiatal hernia. This was present previously. 3. Thickening of the rectum there is nonspecific. This area can be directly inspected. 4. Stable left adrenal gland mass. No active GIB. Refusing bowel prep. .. - Anemia secondary to acute blood loss. .. - GERD with esophagitis. PPI. - N/V. RESOLVED. - ESRD. HD per renal. Plan - [facility] - Cont. PPI - Pt refusing GI workup - GI will sign off, please reconsult as needed - Supportive care - Patient was seen and examined by Dr Hopkins and myself this consult is written on his behalf. (Tita Infante) Physician Comments Seen and examined with PAGE, unable to proceed with colonoscopy because of pt. refusal. CT reviewed, will sign off, reconsult as needed. Thank you (Joann Hopkins MD) Tita Infante May 12, 2016 14:22 Joann Hopkins MD May 12, 2016 20:55
[2016-05-12 16:00] VITALS: BP 83/51; PULSE 84; RESP 16; TEMP 98; O2SAT 94
== END 2016-05-12 19:00 | DRG 377 ==
LOC: NEPA 15:05 → NEDA 21:59 → NEPGCP 05-10 00:38 → N04A 05-11 16:33
PROVIDERS: ADMIT Internal Medicine; ATTEND Internal Medicine
PROC: 5A1D00Z (ICD-10-PCS; 2016-05-10)
PROC: 0DB58ZX Excision of Esophagus, Via Natural or Artificial Opening Endoscopic, Diagnostic (ICD-10-PCS; principal; 2016-05-10 13:16)
DX: K92.0 Hematemesis (principal); N18.6 End stage renal disease; I13.2 Hypertensive heart and chronic kidney disease with heart failure and with stage 5 chronic kidney disease, or end stage renal disease; E46 Unspecified protein-calorie malnutrition; E88.89 Other specified metabolic disorders; I69.354 Hemiplegia and hemiparesis following cerebral infarction affecting left non-dominant side; F20.0 Paranoid schizophrenia; D62 Acute posthemorrhagic anemia; E11.22 Type 2 diabetes mellitus with diabetic chronic kidney disease; E11.51 Type 2 diabetes mellitus with diabetic peripheral angiopathy without gangrene; I50.9 Heart failure, unspecified; E03.9 Hypothyroidism, unspecified; N40.0 Benign prostatic hyperplasia without lower urinary tract symptoms; I25.10 Atherosclerotic heart disease of native coronary artery without angina pectoris; E78.5 Hyperlipidemia, unspecified; K44.9 Diaphragmatic hernia without obstruction or gangrene; K29.70 Gastritis, unspecified, without bleeding; D63.1 Anemia in chronic kidney disease; E27.9 Disorder of adrenal gland, unspecified; J44.9 Chronic obstructive pulmonary disease, unspecified; G62.9 Polyneuropathy, unspecified; K21.0 Gastro-esophageal reflux disease with esophagitis; M19.90 Unspecified osteoarthritis, unspecified site; F31.9 Bipolar disorder, unspecified; Z23 Encounter for immunization; Z53.29 Procedure and treatment not carried out because of patient's decision for other reasons; Z68.23 Body mass index [BMI] 23.0-23.9, adult; Z74.01 Bed confinement status; Z79.4 Long term (current) use of insulin; Z86.010 Personal history of colon polyps; Z88.5 Allergy status to narcotic agent; Z91.14 Patient's other noncompliance with medication regimen; Z95.5 Presence of coronary angioplasty implant and graft; Z99.2 Dependence on renal dialysis
CPT/HCPCS: 36591; 71010; 74176; 76937; 80048; 80053; 82948; 83036; 83605; 83735; 84443; 85014; 85018; 85025; 85610; 85730; 86850; 86900; 86901; 87040; 88305; 90732; 90935; 96365; 96366; 96368; 96374; 96375; C9113; J1815; J2405; J2543; J3370; J7030; J7050; Q4081; Q9963

== ENCOUNTER → 2016-05-21 | Outpatient (CLI) | payer MEDICARE, OTHER, MEDICAID ==
[~2016-05-21] MED LIST changes: +AMBI5TAB PO; +COLL30T TOPICAL; +DOXY100T PO; +GENT0.1O2 TOP; -HYDR-3366 PO; -LEVA500T PO; +OMEP20TA PO; -PANT40TA3 PO; +REME15TA PO; -SILV1CRE20 TOPICAL; -ZINC20OI TD; +[UNRECOGNIZED DRUG - CODE] TOP
--- NOTE | 2016-05-21 15:04 | RADRPT ---
EXAM DATE/TIME: 05/21/2016 13:28 [facility] COMPARISON: CHEST SINGLE AP, May 09, 2016, 15:42. INDICATIONS : Evaluate for pneumonia, pneumothorax or communicable disease. Pre op for angiogram 05-24-16 MEDICAL HISTORY : Hypertension. Diabetes mellitus type II. Cardiovascular disease. liver disease SURGICAL HISTORY : None. ENCOUNTER: Initial ACUITY: 1 day PAIN SCORE: 0/10 LOCATION: Bilateral chest FINDINGS: PA and lateral views of the chest demonstrate the lungs to be symmetrically aerated without evidence of mass, infiltrate or effusion. The cardiomediastinal contours are unremarkable. Osseous structure s are intact. CONCLUSION: 1. No acute cardiopulmonary findings. Hiren Isaac MD on May 21, 2016 at 15:02 Board Certified Radiologist. This report was verified electronically.
--- NOTE | 2016-05-22 16:22 | EKG ---
Date Performed: 05/21/2016 Time Performed: 12:32:05 PTAGE: 60 years EKG: Sinus rhythm VOLTAGE CRITERIA FOR LVH Since previous tracing, no significant change noted ABNORMAL ECG PREVIOUS TRACING : 03/06/2016 07.32.54 DOCTOR: Isra Tierney Interpretating Date/Time 05/22/2016 16:21:58
== END ==
LOC: CPRE 11:52
PROVIDERS: ATTEND Surgery
DX: Z01.810 Encounter for preprocedural cardiovascular examination (principal); I73.9 Peripheral vascular disease, unspecified; R94.31 Abnormal electrocardiogram [ECG] [EKG]
CPT/HCPCS: 71020; 93005

== ENCOUNTER 2016-05-24 08:36 | Day surgery (SDC) | payer MEDICARE, MEDICAID ==
[~2016-05-24] VITALS: Ht 167.6 cm; Wt 74.3 kg
[~2016-05-24 08:36] MED LIST changes: -AMBI5TAB PO
[2016-05-24 08:54] VITALS: BP 111/73; PULSE 82; RESP 15; TEMP 97.8; O2SAT 96
[2016-05-24] MEDS ORDERED: AMBI5TAB PO (09:22)
[2016-05-24 09:56] LABS: BASOPHIL % 0.7 % (0.0-2.0); EOSINOPHIL # 0.1 TH/MM3 (0-0.4); EOSINOPHIL % 1.6 % (0.0-4.0); HEMATOCRIT 29.9 % (39.0-51.0); HEMO FLAGS DIFF FINAL; LYMPH % 29.3 % (9.0-44.0); MEAN CELL VOLUME 94.4 FL (80.0-100.0); MEAN CORPUSCULAR HEMOGLOBIN 28.6 PG (27.0-34.0); MEAN CORPUSCULAR HGB CONC 30.2 % (32.0-36.0); MONO % 10.7 % (0.0-8.0); NEUT % 57.7 % (16.0-70.0); PLATELET COUNT 231 TH/MM3 (150-450); RED BLOOD COUNT 3.17 MIL/MM3 (4.50-5.90); RED CELL DISTRIBUTION WIDTH 17.8 % (11.6-17.2); WHITE BLOOD COUNT 6.9 TH/MM3 (4.0-11.0)
[2016-05-24] MEDS ORDERED: HEPARIN-NS/PF INJ 500 ML ONE (09:57)
[2016-05-24 10:02] LABS: PROTHROMBIN TIME - PATIENT 11.4 SEC (9.8-11.6)
[2016-05-24 10:13] LABS: BICARBONATE 35.3 MEQ/L (21.0-32.0); POTASSIUM 3.9 MEQ/L (3.5-5.1)
--- NOTE | 2016-05-24 12:21 | MA ---
cc: GARRISON LUQUE DATE: 05/24/2016 PREOPERATIVE DIAGNOSIS History of critical limb ischemia, non-healing wound left lower extremity. POSTOPERATIVE DIAGNOSIS History of critical limb ischemia, non-healing wound left lower extremity. PROCEDURE Angiogram abdominal aorta and selective left lower extremity arteriogram. SEDATION Moderate sedation. IV FLUIDS 200 cc of crystalloid. ESTIMATED BLOOD LOSS Minimal. URINE OUTPUT Not calculated. History of end-stage renal disease on hemodialysis. DETAILS OF PROCEDURE The patient's bilateral groins were prepped and draped in a sterile fashion after being under moderate sedation. I got access to the right common femoral artery using anatomical landmarks and C-arm fluoroscopy. I used a 21-gauge needle and exchanged over a non-braided wire for a 4-Dominican micropuncture catheter and then I exchanged over a braided wire for a 5-Dominican sheath. I then advanced an Omni Flush catheter and a Stiff angle Glidewire into the abdominal aorta. I shot an AP aortogram. I shot pelvic oblique arteriograms after I pulled my catheter down to the distal abdominal aorta. I then selected out the left common femoral artery/external iliac artery. Since there was apparent steal I then selective out the left superficial femoral artery. I pulled my catheter out over a wire and exchanged for a 4-Dominican Angio-Seal to the right common femoral artery. I did shoot a groin shot of the right groin before pulling my catheter over a wire. FINDINGS My findings were that the abdominal aorta is widely patent. The bilateral renal arteries are widely patent. The bilateral common internal and external iliac arteries appeared to be patent. The right common femoral, proximal SFA and profunda femoral arteries are patent with the catheter above the bifurcation by approximately 1-2 cm. The left common femoral and profunda femoral arteries are widely patent. The left superficial femoral artery was patent. There was a graft that came off of the left superficial femoral artery just after its takeoff. The outflow graft connected to the common femoral/external iliac vein in which there appeared to be a wall stent in this area. There was a mild stenosis in the outflow vein. The SFA gave rise to the popliteal that was widely patent. The distal popliteal artery just above the takeoff of the tibioperoneal trunk and anterior tibial artery had a calcified lesion that did not appear to be flow-limiting at that point. The main runoff to the left lower extremity was via the anterior tibial artery. There was disease in the peroneal and posterior tibial arteries and they were somewhat delayed in comparison to the anterior tibial artery. It should be noted that the more proximal posterior tibial artery and the mid peroneal artery had disease along their length. There was an arch in the foot as well as the medial and lateral plantar arteries. SUMMARY In summary, the patient had significant steal from an AV graft that connected between the left extremity graft/fistula that connected between the superficial femoral artery and an outflow femoral vein. The patient had a mild stenosis of the outflow stent and femorals to external iliac vein. The patient had a calcified lesion at the takeoff just before the tibioperoneal trunk. The main runoff to the foot was through the anterior tibial artery to the dorsalis pedis artery. DO JENN Caicedo/CHUCK /11:48 AM /12:09 PM
[2016-05-24] MEDS ORDERED: MORPHINE SULFATE 4 MG/ML INJ IV PRN (12:45)
[2016-05-24] MEDS ORDERED: IOHEXOL 350 MG/ML 50 ML BTL (for Cath Lab) OTHER ONE (15:51)
== END 2016-05-24 16:30 ==
LOC: HDOC 08:36 → HDIC 08:37 → HDOC 16:30
PROVIDERS: ATTEND Surgery
DX: I73.9 Peripheral vascular disease, unspecified (principal); I12.0 Hypertensive chronic kidney disease with stage 5 chronic kidney disease or end stage renal disease; N18.6 End stage renal disease; E11.22 Type 2 diabetes mellitus with diabetic chronic kidney disease; J44.9 Chronic obstructive pulmonary disease, unspecified; Z79.4 Long term (current) use of insulin; Z99.2 Dependence on renal dialysis
CPT/HCPCS: 36200; 36246; 75625; 75710; 76937; 80048; 82948; 85025; 85610; C1760; C1769; C1893; G0269; J1644; Q9967

== ENCOUNTER 2016-11-11 10:06 | Inpatient (IN) | payer MEDICARE, MEDICAID ==
[2016-11-11] VITALS (37 sets, daily range): BP systolic 72–114; BP diastolic 41–62; PULSE 87–117; RESP 18–40; TEMP 98.1–98.4; O2SAT 89–100
[~2016-11-11] VITALS: Ht 180.3 cm; Wt 81.6 kg
[~2016-11-11 10:06] MED LIST changes: +AMBI5TAB PO
--- NOTE | 2016-11-11 10:23 | PD ---
HPI Chief Complaint: Respiratory Symptoms Time Seen by Provider: 10:17 Travel History International Travel<30 days: No Contact w/Intl Traveler<30days: No Traveled to known affect area: No History of Present Illness HPI 61-year-old male with history of end-stage renal disease on dialysis, multiple medical issues, was almost done with his dialysis when he had an episode of vomiting and then had respiratory distress, suspected of having aspirated. He is coughing in the ER, in mild respiratory distress. He has a saturation of 99 % however. Modifying Factors: None Associated Signs & Symptoms: Vomiting, respiratory distress Risk Factors: On dialysis, multiple medical issues PFSH Past Medical History Anemia: Yes Arthritis: Yes Asthma: No Autoimmune Disease: No Blood Disorders: No Bipolar Disorder: Yes Anxiety: Yes Depression: Yes Heart Rhythm Problems: No Cancer: No Cardiac Catheterization: Yes Cardiovascular Problems: Yes (PERIPHERAL VASCULAR DISEASE) High Cholesterol: Yes Chemotherapy: No Chest Pain: Yes Congestive Heart Failure: Yes COPD: Yes Cerebrovascular Accident: Yes Diabetes: Yes Dialysis: Yes Diminished Hearing: No Endocrine: Yes Gastrointestinal Disorders: Yes (ESOPHAGITIS, BENIGN NEOPLASM OF COLON ) GERD: Yes Glaucoma: No Genitourinary: Yes (renal disease, HYPERTROPHY OF PROSTATE) Headaches: Yes Hepatitis: Yes Hiatal Hernia: No Heparin Induced Thrombocytopen: No Hypertension: Yes (NON COMPLIANT WITH MEDS) Immune Disorder: No Implanted Vascular Access Dvce: No Kidney Stones: No Musculoskeletal: Yes (HAMMERTOES BOTH FEET; CHRONIC BACK PAIN, GEN. MUSCLE WEAKNESS) Neurologic: Yes (LT SIDE FLACID LA CONTRACTED, MULTIPLE STROKES, HX SEIZURES) Psychiatric: Yes (EPISODIC MOOD DISORDER, PSYCHOSIS) Reproductive: No Respiratory: Yes (copd) Integumentary: Yes Immunizations Current: No Migraines: No Myocardial Infarction: No Radiation Therapy: No Renal Failure: No Schizophrenia: Yes Seizures: No Sickle Cell Disease: No Sleep Apnea: No Thyroid Disease: Yes (HYPOTHYROIDISM) Ulcer: No PNEUMOCCOCAL Vaccine (Year): 2 Past Surgical History Abdominal Surgery: No AICD: No Arteriovenous Shunt: No Cardiac Surgery: Yes (STENT, CARDIAC CATHERIZATION) Coronary Artery Bypass Graft: No Coronary Stent: Yes Ear Surgery: No Endocrine Surgery: No Eye Surgery: No Genitourinary Surgery: No Gynecologic Surgery: No Insulin Pump: No Joint Replacement: No Neurologic Surgery: No Oral Surgery: No Pacemaker: No Thoracic Surgery: No Other Surgery: Yes Social History Alcohol Use: No Tobacco Use: No Substance Use: No Allergies-Medications (Allergen,Severity, Reaction): Coded Allergies: methadone (Unverified Allergy, Severe, 10/12/16) acetaminophen (Unverified Allergy, Unknown, 10/12/16) PATIENT WAS TOLD TO NEVER TAKE THIS MEDICATION propoxyphene (Unverified Allergy, Unknown, 10/12/16) PATIENT WAS TOLD TO NEVER TAKE THIS MEDICATION *MDRO Multi-Drug Resistant Organism (Verified Adverse Reaction, Unknown, ESBL, MRSA, 05/24/16) ESBL (sputum & urine) - 06/2015 MRSA (urine) - 02/2012 Reported Meds & Prescriptions Reported Meds & Active Scripts Active Reported Midodrine 10 Mg Tab 10 Mg PO BID Lortab (Hydrocodone-Acetaminophen) 10-325 Mg Tab 1 Tab PO Q8HR PRN Trazodone (Trazodone HCl) 150 Mg Tablet 150 Mg PO HS Ambien (Zolpidem Tartrate) 5 Mg Tab 5 Mg PO HS PRN Omeprazole 20 Mg Tab 20 Mg PO DAILY Remeron (Mirtazapine) 15 Mg Tab 15 Mg PO HS Levemir Inj (Insulin Detemir) 1,000 unit/ 10 ML Vial 19 Units SQ DAILY IN THE MORNING Do not mix with any other Insulin. Humalog Inj (Insulin Human Lispro) 1,000 Unit/10 Ml Vial 2-10 Units SQ ACHS Max dose at bedtime:( )units; sugars < 70,(0)units; sugars 150-199,(2)units; sugars 200-249,(4)units; sugars 250-299,(6)units; sugars 300-349,(8)units; sugars 350-399,(10)units. Zofran (Ondansetron HCl) 8 Mg Tab 8 Mg PO Q6HR PRN Tylenol (Acetaminophen) 325 Mg Tab 650 Mg PO Q4H PRN Risperdal (Risperidone) 0.5 Mg Tab 0.75 Mg PO Q12HR Renvela Liq (Sevelamer Carbonate) 2.4 Gm Pack 2.4 Gm PO TIDPC Estrella-Rafa (B-Complex W/ C & Folic Acid) 1 Tab 1 Tab PO DAILY Lexapro (Escitalopram Oxalate) 20 Mg Tab 20 Mg PO HS Levemir Inj (Insulin Detemir) 1,000 unit/ 10 ML Vial 15 Units SQ HS Do not mix with any other Insulin. Lamictal (Lamotrigine) 200 Mg Tab 200 Mg PO HS Gabapentin 100 Mg Cap 200 Mg PO DAILY Flomax (Tamsulosin HCl) 0.4 Mg Cap 0.4 Mg PO HS Duoneb (Ipratropium-Albuterol Neb) 0.5-2.5 Mg/3 Ml Neb 1 Nebule INH Q4HR NEB PRN Bisacodyl EC (Bisacodyl) 5 Mg Tabec 10 Mg PO HS Ascorbic Acid 500 Mg Tab 500 Mg PO DAILY Review of Systems ROS Limitations: Poor Historian Except as stated in HPI: all other systems reviewed are Neg Physical Exam Narrative GENERAL: Well-developed elderly -[place] male with a notable left sided arm atrophy, contracted. Awake, lethargic, in mild respiratory distress. SKIN: Focused skin assessment warm/dry. HEAD: Atraumatic. Normocephalic. EYES: Pupils equal and round. No scleral icterus. No injection or drainage. ENT: No nasal bleeding or discharge. Mucous membranes pink and moist. NECK: Trachea midline. No JVD. CARDIOVASCULAR: Regular rate and rhythm. No murmur appreciated. RESPIRATORY: Notable accessory muscle use. Coarse breath sounds on the right. Breath sounds equal bilaterally. GASTROINTESTINAL: Abdomen soft, non-tender, nondistended. Hepatic and splenic margins not palpable. MUSCULOSKELETAL: No obvious deformities. No clubbing. No cyanosis. No edema. NEUROLOGICAL: Awake and lethargic. Contracted. PSYCHIATRIC: Appropriate mood and affect; insight and judgment poor. Data Data Last Documented VS Vital Signs Date Time Temp Pulse Resp B/P (MAP) Pulse Ox O2 Delivery O2 Flow Rate FiO2 11/11/16 10:40 (71) 100 Non-Rebreather 13.00 11/11/16 10:16 114 20 11/11/16 10:16 98.1 Orders Orders Complete Blood Count With Diff (11/11/16 10:17) Comprehensive Metabolic Panel (11/11/16 10:17) B-Type Natriuretic Peptide (11/11/16 10:17) Act Partial Throm Time (Ptt) (11/11/16 10:17) Prothrombin Time / Inr (Pt) (11/11/16 10:17) Ckmb (Isoenzyme) Profile (11/11/16 10:17) Troponin I (11/11/16 10:17) Arterial Blood Gas (Abg) (11/11/16 10:17) Iv Access Insert/Monitor (11/11/16 10:17) Ecg Monitoring (11/11/16 10:17) Oximetry (11/11/16 10:17) Oxygen Administration (11/11/16 10:17) Chest, Single Ap (11/11/16 10:17) Sodium Chloride 0.9% Flush (Ns Flush) (11/11/16 10:30) Sodium Chlorid 0.9% 500 Ml Inj (Ns 500 M (11/11/16 10:30) CKMB (11/11/16 10:30) CKMB% (11/11/16 10:30) Electrocardiogram (11/11/16 ) Lactic Acid Sepsis Protocol (11/11/16 12:20) Blood Culture (11/11/16 12:20) Piperacil-Tazo 4.5 Gm Premix (Zosyn 4.5 (11/11/16 12:20) Admit Order (Ed Use Only) (11/11/16 13:00) Labs Laboratory Tests Test 11/11/16 10:30 11/11/16 10:58 11/11/16 11:15 White Blood Count 12.7 TH/MM3 Red Blood Count 3.86 MIL/MM3 Hemoglobin 11.3 GM/DL Hematocrit 36.0 % Mean Corpuscular Volume 93.2 FL Mean Corpuscular Hemoglobin 29.3 PG Mean Corpuscular Hemoglobin Concent 31.5 % Red Cell Distribution Width 16.5 % Platelet Count 259 TH/MM3 Mean Platelet Volume 9.2 FL Neutrophils (%) (Auto) 78.8 % Lymphocytes (%) (Auto) 12.2 % Monocytes (%) (Auto) 8.5 % Eosinophils (%) (Auto) 0.2 % Basophils (%) (Auto) 0.3 % Neutrophils # (Auto) 10.0 TH/MM3 Lymphocytes # (Auto) 1.6 TH/MM3 Monocytes # (Auto) 1.1 TH/MM3 Eosinophils # (Auto) 0.0 TH/MM3 Basophils # (Auto) 0.0 TH/MM3 CBC Comment AUTO DIFF Differential Total Cells Counted 100 Neutrophils % (Manual) 69 % Band Neutrophils % 6 % Lymphocytes % 9 % Monocytes % 13 % Eosinophils % 2 % Neutrophils # (Manual) 9.7 TH/MM3 Myelocytes 1 % Differential Comment FINAL DIFF MANUAL Platelet Estimate NORMAL Platelet Morphology Comment NORMAL Blood Urea Nitrogen 46 MG/DL Creatinine 5.39 MG/DL Random Glucose 317 MG/DL Total Protein 11.1 GM/DL Albumin 4.0 GM/DL Calcium Level 8.5 MG/DL Alkaline Phosphatase 158 U/L Aspartate Amino Transf (AST/SGOT) 22 U/L Alanine Aminotransferase (ALT/SGPT) 23 U/L Total Bilirubin 0.3 MG/DL Sodium Level 129 MEQ/L Potassium Level 4.0 MEQ/L Chloride Level 93 MEQ/L Carbon Dioxide Level 19.2 MEQ/L Anion Gap 17 MEQ/L Estimat Glomerular Filtration Rate 13 ML/MIN Total Creatine Kinase 226 U/L Creatine Kinase MB 2.5 NG/ML Troponin I LESS THAN 0.02 NG/ML B-Type Natriuretic Peptide 25 PG/ML Blood Gas Puncture Site RT RADIAL Blood Gas Patient Temperature 98.6 Blood Gas HCO3 17 mmol/L Blood Gas Base Excess -9.2 mmol/L Blood Gas Oxygen Saturation 96 % Arterial Blood pH 7.22 Arterial Blood Partial Pressure CO2 44 mmHg Arterial Blood Partial Pressure O2 126 mmHG Arterial Blood Oxygen Content 14.3 Vol % Arterial Blood Carboxyhemoglobin 1.3 % Arterial Blood Methemoglobin 0.4 % Blood Gas Hemoglobin 10.4 G/DL Oxygen Delivery Device Non-Rebreathing Mask Blood Gas Liter Flow 15 L/M Blood Gas Inspired Oxygen 100 % Prothrombin Time 11.4 SEC Prothromb Time International Ratio 1.0 RATIO Activated Partial Thromboplast Time 25.0 SEC MDM Medical Decision Making Medical Screen Exam Complete: Yes Emergency Medical Condition: Yes Medical Record Reviewed: Yes Interpretation(s) EKG shows sinus tachycardia rate of 117 bpm with no signs of acute ST-T changes. Laboratory Tests Test 11/11/16 10:30 11/11/16 10:58 11/11/16 11:15 White Blood Count 12.7 TH/MM3 (4.0-11.0) Red Blood Count 3.86 MIL/MM3 (4.50-5.90) Hemoglobin 11.3 GM/DL (13.0-17.0) Hematocrit 36.0 % (39.0-51.0) Mean Corpuscular Hemoglobin Concent 31.5 % (32.0-36.0) Neutrophils (%) (Auto) 78.8 % (16.0-70.0) Monocytes (%) (Auto) 8.5 % (0.0-8.0) Neutrophils # (Auto) 10.0 TH/MM3 (1.8-7.7) Monocytes # (Auto) 1.1 TH/MM3 (0-0.9) Monocytes % 13 % (0-8) Neutrophils # (Manual) 9.7 TH/MM3 (1.8-7.7) Myelocytes 1 % (0-0) Blood Urea Nitrogen 46 MG/DL (7-18) Creatinine 5.39 MG/DL (0.60-1.30) Random Glucose 317 MG/DL (74-106) Total Protein 11.1 GM/DL (6.4-8.2) Alkaline Phosphatase 158 U/L (45-117) Sodium Level 129 MEQ/L (136-145) Chloride Level 93 MEQ/L (98-107) Carbon Dioxide Level 19.2 MEQ/L (21.0-32.0) Anion Gap 17 MEQ/L (5-15) Estimat Glomerular Filtration Rate 13 ML/MIN (>89) Troponin I LESS THAN 0.02 NG/ML Blood Gas HCO3 17 mmol/L (22-26) Blood Gas Base Excess -9.2 mmol/L (-2-2) Arterial Blood pH 7.22 (7.380-7.420) Arterial Blood Partial Pressure CO2 44 mmHg (38-42) Arterial Blood Partial Pressure O2 126 mmHG (61-120) Blood Gas Hemoglobin 10.4 G/DL (12.0-16.0) Differential Diagnosis Pneumonia versus aspiration pneumonitis versus metabolic issues versus sepsis Narrative Course Chest x-ray shows right lower lobe infiltrates and exam is concerning for aspiration. IV antacid were initiated after cultures are drawn. ABG shows some signs of retention as well and at this point, my plan would be to admit the patient for further treatment and observation. Case was discussed with Dr. Elliott for admission. Diagnosis Primary Impression: Aspiration into lower respiratory tract Additional Impression: SIRS (systemic inflammatory response syndrome) Admitting Information Admitting Physician Requests: it Nancie Sanchez MD Nov 11, 2016 10:23
[2016-11-11] MEDS ORDERED: SODIUM CHLORID 0.9% 500 ML INJ 500 ML IV ONE ×2 (10:30→20:45)
[2016-11-11] MEDS ORDERED: SODIUM CHLORIDE 0.9% FLUSH 10 ML FLUSH IVF PRN (10:30)
[2016-11-11 10:52] LABS: BASOPHIL % 0.3 % (0.0-2.0); EOSINOPHIL % 0.2 % (0.0-4.0); LYMPH % 12.2 % (9.0-44.0); LYMPHOCYTE # 1.6 TH/MM3 (1.0-4.8); MEAN CELL VOLUME 93.2 FL (80.0-100.0); MEAN CORPUSCULAR HEMOGLOBIN 29.3 PG (27.0-34.0); MEAN CORPUSCULAR HGB CONC 31.5 % (32.0-36.0); MONO % 8.5 % (0.0-8.0); NEUT % 78.8 % (16.0-70.0); PLATELET COUNT 259 TH/MM3 (150-450); RED BLOOD COUNT 3.86 MIL/MM3 (4.50-5.90); RED CELL DISTRIBUTION WIDTH 16.5 % (11.6-17.2); WHITE BLOOD COUNT 12.7 TH/MM3 (4.0-11.0)
[2016-11-11] MEDS ORDERED: TRAZ1TAB45 PO (10:52)
[2016-11-11] MEDS ORDERED: MIDO10TA PO (10:52)
[2016-11-11] MEDS ORDERED: HYDR-3535 PO (10:52)
--- NOTE | 2016-11-11 10:56 | RADRPT ---
EXAM DATE/TIME: 11/11/2016 10:20 [facility] COMPARISON: CHEST PA & LAT, May 21, 2016, 13:28. CHEST SINGLE AP, May 09, 2016, 15:42. INDICATIONS : Cough, Shortness of breath. MEDICAL HISTORY : Hypertension. Diabetes mellitus type II. Cardiovascular disease. SURGICAL HISTORY : Cardiac stent. ENCOUNTER: Initial ACUITY: 1 day PAIN SCORE: 2/10 LOCATION: Bilateral chest FINDINGS: Discoid atelectasis is noted within the right lung base. The heart is stable. The left lung is elena r. Degenerative changes are noted throughout the thoracic spine. CONCLUSION: 1. Discoid atelectasis within the right lung base. 2. Degenerative changes and scoliosis of the thoracic spine. Damaso Sol MD on November 11, 2016 at 10:36 Board Certified Radiologist. This report was verified electronically.
[2016-11-11 10:58] LABS: HEMO FLAGS AUTO DIFF
[2016-11-11 11:05] LABS: ALKALINE PHOSPHATASE 158 U/L (45-117); CREATINE KINASE 226 U/L (39-308); TOTAL BILIRUBIN ADULT 0.3 MG/DL (0.2-1.0)
[2016-11-11 11:06] LABS: BLOOD GAS BASE EXCESS -9.2 mmol/L (-2-2); BLOOD GAS CARBOXYHEMOGLOBIN 1.3 % (0-4); BLOOD GAS HCO3 17 mmol/L (22-26); BLOOD GAS METHEMOGLOBIN 0.4 % (0-2); BLOOD GAS O2 HGB SATURATION 96 % (90-100); BLOOD GAS OXYGEN CONTENT 14.3 Vol % (12.0-20.0); BLOOD GAS PCO2 44 mmHg (38-42); BLOOD GAS PO2 126 mmHG (61-120); BLOOD GAS TOTAL HGB 10.4 G/DL (12.0-16.0); CRITICAL VALUE YES; TEMP CORR TO 98.6
[2016-11-11 11:07] LABS: DRAW SITE RT RADIAL; FIO2 100 %; LITER FLOW 15 L/M; NUMBER OF ARTERIAL PUNCTURES 1; STAT YES; ULNAR PULSE PRESENT
[2016-11-11 11:14] LABS: ALT (GPT) 23 U/L (12-78); ANION GAP 17 MEQ/L (5-15); AST (GOT) 22 U/L (15-37); BICARBONATE 19.2 MEQ/L (21.0-32.0); BLOOD UREA NITROGEN 46 MG/DL (7-18); CHLORIDE 93 MEQ/L (98-107); GLOMERULAR FILTRATION RATE 13 ML/MIN (>89); SODIUM (NA) 129 MEQ/L (136-145)
[2016-11-11 11:18] LABS: CKMB 2.5 NG/ML (0.5-3.6)
[2016-11-11 11:37] LABS: PROTHROMBIN TIME - PATIENT 11.4 SEC (9.8-11.6)
[2016-11-11 11:38] LABS: BANDS 6 % (0-6); EOSINOPHILS 2 % (0-4); MYELOCYTES 1 % (0-0); NEUTROPHIL # MANUAL DIFF 9.7 TH/MM3 (1.8-7.7); PLATELET ESTIMATE SMEAR NORMAL (NORMAL); PLATELET MORPHOLOGY NORMAL (NORMAL); POLYS (SEG NEUTROPHILS) 69 % (16-70); SCAN/DIFF FINAL DIFF MANUAL; WBC DIFF SAMPLE 100
[2016-11-11] MEDS ORDERED: PIPERACIL-TAZO 4.5 GM PREMIX 100 ML IV STA (12:20)
[2016-11-11] MEDS ORDERED: SENNOSIDES 8.6 MG TAB PO PRN (13:15)
[2016-11-11] MEDS ORDERED: NALOXONE HCL 0.4 MG/ML AMP IV PUSH PRN (13:15)
[2016-11-11] MEDS ORDERED: ACETAMINOPHEN 325 MG TAB PO PRN ×2 (13:15→16:45)
[2016-11-11] MEDS ORDERED: SODIUM CHLORIDE 0.9% FLUSH 10 ML FLUSH IV FLUSH PRN ×3 (13:15→19:15)
[2016-11-11] MEDS ORDERED: LACTULOSE SYRUP 20 GM/30 ML CUP PO PRN (13:15)
[2016-11-11] MEDS ORDERED: MAGNESIUM HYDROXIDE SUSP 30 ML CUP PO PRN (13:15)
[2016-11-11] MEDS ORDERED: BISACODYL 10 MG SUPP RECTAL PRN (13:15)
[2016-11-11] MEDS ORDERED: ONDANSETRON HCL 4 MG/2 ML VIAL IVP PRN (13:15)
[2016-11-11] MEDS ORDERED: PIPERACIL-TAZO 4.5 GM PREMIX 100 ML IV SCH (14:00)
--- NOTE | 2016-11-11 14:15 | HHI.HP ---
[facility] Sharan Hill MD Admission Diagnosis respiratory distress/aspiration Diagnoses: Chief Complaint: Respiratory distress, aspiration. Travel History International Travel<30 Days: No Contact w/Intl Traveler <30 Da: No Traveled to Known Affected Are: No Sepsis Criteria SIRS Criteria (2 or more): Heart rate over 90, RR > 20 or PaCO2 < 32, WBC > 33403, < 4000 or > 10% bands Sepsis Criteria (SIRS+source): Infect source susp/known Severe Sepsis (+one): Lactate >2 Criteria Outcome: Meets SIRS criteria, Meets sepsis criteria, Meets severe sepsis criteria History of Present Illness Mr. Sharpe is a 61-year-old male with a past medical history of ESRD on HD , , Tuesday coronary artery disease, and CVA who presented to the ED after an episode of vomiting during the last phase of his dialysis today. Patient complains that towards the end of his dialysis today he started having abdominal pain but he did not vomit. However according to ED staff, patient likely had vomiting as it was apparent on his clothes. Patient had significant respiratory distress upon arrival. At the time of this interview patient was on nonrebreather with 15 L of oxygen. On arrival temperature 98.4F, pulse 117 , respiration 24, blood pressure 94/59. WBC 12.7, hemoglobin 11.3, platelets 259. Sodium 129, potassium 4.0, creatinine 5.39, BUN 46, random glucose 317. Lactic acid was 6.8. Blood gas was 7.22/44/126. Patient denies any chest pain , fever or chills. Denies any changes in bowel or bladder habits. 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 Hypertension Bipolar disorder Depression Gastroesophageal reflux disease Coronary artery disease status post stent placement Congestive heart failure Paranoid schizophrenia Bipolar disorder Peripheral vascular disease Hyperlipidemia Peripheral neuropathy Hypothyroidism Arthritis Esophagitis Colon polyps Past Surgical History EGD Colonoscopy Cardiac catheterization AV fistula placement Reported Medications Midodrine 10 Mg Tab 10 Mg PO BID Lortab (Hydrocodone-Acetaminophen) 10-325 Mg Tab 1 Tab PO Q8HR PRN Trazodone (Trazodone HCl) 150 Mg Tablet 150 Mg PO HS Ambien (Zolpidem Tartrate) 5 Mg Tab 5 Mg PO HS PRN Omeprazole 20 Mg Tab 20 Mg PO DAILY Remeron (Mirtazapine) 15 Mg Tab 15 Mg PO HS Levemir Inj (Insulin Detemir) 1,000 unit/ 10 ML Vial 19 Units SQ DAILY IN THE MORNING Do not mix with any other Insulin. Humalog Inj (Insulin Human Lispro) 1,000 Unit/10 Ml Vial 2-10 Units SQ ACHS Max dose at bedtime:( )units; sugars < 70,(0)units; sugars 150-199,(2)units; sugars 200-249,(4)units; sugars 250-299,(6)units; sugars 300-349,(8)units; sugars 350-399,(10)units. Zofran (Ondansetron HCl) 8 Mg Tab 8 Mg PO Q6HR PRN Tylenol (Acetaminophen) 325 Mg Tab 650 Mg PO Q4H PRN Risperdal (Risperidone) 0.5 Mg Tab 0.75 Mg PO Q12HR Renvela Liq (Sevelamer Carbonate) 2.4 Gm Pack 2.4 Gm PO TIDPC Estrella-Rafa (B-Complex W/ C & Folic Acid) 1 Tab 1 Tab PO DAILY Lexapro (Escitalopram Oxalate) 20 Mg Tab 20 Mg PO HS Levemir Inj (Insulin Detemir) 1,000 unit/ 10 ML Vial 15 Units SQ HS Do not mix with any other Insulin. Lamictal (Lamotrigine) 200 Mg Tab 200 Mg PO HS Gabapentin 100 Mg Cap 200 Mg PO DAILY Flomax (Tamsulosin HCl) 0.4 Mg Cap 0.4 Mg PO HS Duoneb (Ipratropium-Albuterol Neb) 0.5-2.5 Mg/3 Ml Neb 1 Nebule INH Q4HR NEB PRN Bisacodyl EC (Bisacodyl) 5 Mg Tabec 10 Mg PO HS Ascorbic Acid 500 Mg Tab 500 Mg PO DAILY Allergies: Coded Allergies: methadone (Unverified Allergy, Severe, 10/12/16) acetaminophen (Unverified Allergy, Unknown, 10/12/16) PATIENT WAS TOLD TO NEVER TAKE THIS MEDICATION propoxyphene (Unverified Allergy, Unknown, 10/12/16) PATIENT WAS TOLD TO NEVER TAKE THIS MEDICATION *MDRO Multi-Drug Resistant Organism (Verified Adverse Reaction, Unknown, ESBL, MRSA, 05/24/16) ESBL (sputum & urine) - 06/2015 MRSA (urine) - 02/2012 Family History No family history of heart disease, cancer, Alzheimer's or Parkinson's. Social History Denies using alcohol, tobacco, illicit drugs. Physical Exam Vital Signs Vital Signs Date Time Temp Pulse Resp B/P (MAP) Pulse Ox O2 Delivery O2 Flow Rate FiO2 11/11/16 13:53 97 Non-Rebreather 15.00 11/11/16 13:37 98 24 89/51 (64) 98 Non-Rebreather 13.00 11/11/16 10:40 (71) 100 Non-Rebreather 13.00 11/11/16 10:16 114 20 100 Non-Rebreather 13.00 11/11/16 10:16 98.1 114 24 94/59 (71) 100 Non-Rebreather 13.00 11/11/16 10:07 99 Nasal Cannula 3.00 11/11/16 10:07 98.4 117 24 94/59 (71) 91 Physical Exam GENERAL: This is a well-nourished, well-developed patient, in mild respiratory distress. On non-rebreather. SKIN: No rashes, ecchymoses or lesions. Warm and dry. HEAD: Atraumatic. Normocephalic. No temporal or scalp tenderness. EYES: Pupils equal round and reactive. No injection or drainage. ENT: Nose without bleeding, purulent drainage or septal hematoma. Airway patent. NECK: Trachea midline. No lymphadenopathy. Supple, nontender, no meningeal signs. CARDIOVASCULAR: Regular rate and rhythm without murmurs, gallops, or rubs. No JVD. RESPIRATORY: Moderate air entry. No wheezing, crackles. GASTROINTESTINAL: Abdomen somewhat firm, there is rigidity and guarding as well. MUSCULOSKELETAL: Extremities without clubbing, cyanosis, or edema. NEUROLOGICAL: Awake and alert. Cranial nerves II through XII intact. No focal neurological deficits. Normal speech. Laboratory Laboratory Tests Test 11/11/16 10:30 11/11/16 10:58 11/11/16 11:15 11/11/16 13:35 White Blood Count 12.7 Red Blood Count 3.86 Hemoglobin 11.3 Hematocrit 36.0 Mean Corpuscular Volume 93.2 Mean Corpuscular Hemoglobin 29.3 Mean Corpuscular Hemoglobin Concent 31.5 Red Cell Distribution Width 16.5 Platelet Count 259 Mean Platelet Volume 9.2 Neutrophils (%) (Auto) 78.8 Lymphocytes (%) (Auto) 12.2 Monocytes (%) (Auto) 8.5 Eosinophils (%) (Auto) 0.2 Basophils (%) (Auto) 0.3 Neutrophils # (Auto) 10.0 Lymphocytes # (Auto) 1.6 Monocytes # (Auto) 1.1 Eosinophils # (Auto) 0.0 Basophils # (Auto) 0.0 CBC Comment AUTO DIFF Differential Total Cells Counted 100 Neutrophils % (Manual) 69 Band Neutrophils % 6 Lymphocytes % 9 Monocytes % 13 Eosinophils % 2 Neutrophils # (Manual) 9.7 Myelocytes 1 Differential Comment FINAL DIFF MANUAL Platelet Estimate NORMAL Platelet Morphology Comment NORMAL Blood Urea Nitrogen 46 Creatinine 5.39 Random Glucose 317 Total Protein 11.1 Albumin 4.0 Calcium Level 8.5 Alkaline Phosphatase 158 Aspartate Amino Transf (AST/SGOT) 22 Alanine Aminotransferase (ALT/SGPT) 23 Total Bilirubin 0.3 Sodium Level 129 Potassium Level 4.0 Chloride Level 93 Carbon Dioxide Level 19.2 Anion Gap 17 Estimat Glomerular Filtration Rate 13 Total Creatine Kinase 226 Creatine Kinase MB 2.5 Troponin I LESS THAN 0.02 B-Type Natriuretic Peptide 25 Blood Gas Puncture Site RT RADIAL Blood Gas Patient Temperature 98.6 Blood Gas HCO3 17 Blood Gas Base Excess -9.2 Blood Gas Oxygen Saturation 96 Arterial Blood pH 7.22 Arterial Blood Partial Pressure CO2 44 Arterial Blood Partial Pressure O2 126 Arterial Blood Oxygen Content 14.3 Arterial Blood Carboxyhemoglobin 1.3 Arterial Blood Methemoglobin 0.4 Blood Gas Hemoglobin 10.4 Oxygen Delivery Device Non-Rebreathing Mask Blood Gas Liter Flow 15 Blood Gas Inspired Oxygen 100 Prothrombin Time 11.4 Prothromb Time International Ratio 1.0 Activated Partial Thromboplast Time 25.0 Date/Time Source Procedure Growth Status 11/11/16 13:40 Blood Peripheral Aerobic Blood Culture Pending Received 11/11/16 13:40 Blood Peripheral Anaerobic Blood Culture Pending Received Result Diagram: 11/11/16 1030 11/11/16 1030 Imaging Last Impressions Chest X-Ray 11/11/16 1017 Signed Impressions: Service Date/Time: October 10:20 - CONCLUSION: 1. Discoid atelectasis within the right lung base. 2. Degenerative changes and scoliosis of the thoracic spine. MD Jenny Jonasi VTE Risk Assessment Caprini VTE Risk Assessment: Mod/High Risk (score >= 2) Caprini Risk Assessment Model Point Value = 1 Point Value = 2 Point Value = 3 Point Value = 5 Age 41-60 Minor surgery BMI > 25 kg/m2 Swollen legs Varicose veins or History of unexplained or recurrent spontaneous Oral contraceptives or hormone replacement Sepsis (< 1 month) Serious lung disease, including pneumonia (< 1 month) Abnormal pulmonary function Acute myocardial infarction Congestive heart failure (< 1 month) History of inflammatory bowel disease Medical patient at bed rest Age 61-74 Arthroscopic surgery Major open surgery (> 45 min) Laparoscopic surgery (> 45 min) Malignancy Confined to bed (> 72 hours) Immobilizing plaster cast Central venous access Age >= 75 History of VTE Family history of VTE Factor V Leiden Prothrombin [id number] Lupus anticoagulant Anticardiolipin antibodies Elevated serum homocysteine Heparin-induced thrombocytopenia Other congenital or acquired thrombophilia Stroke (< 1 month) Elective arthroplasty Hip, pelvis, or leg fracture Acute spinal cord injury (< 1 month) Prophylaxis Regimen Total Risk Factor Score Risk Level Prophylaxis Regimen 0-1 Low Early ambulation 2 Moderate Order ONE of the following: *Sequential Compression Device (SCD) *Heparin 5000 units SQ BID 3-4 Higher Order ONE of the following medications: *Heparin 5000 units SQ TID *Enoxaparin/Lovenox 40 mg SQ daily (WT < 150 kg, CrCl > 30 mL/min) *Enoxaparin/Lovenox 30 mg SQ daily (WT < 150 kg, CrCl > 10-29 mL/min) *Enoxaparin/Lovenox 30 mg SQ BID (WT < 150 kg, CrCl > 30 mL/min) AND/OR *Sequential Compression Device (SCD) 5 or more Highest Order ONE of the following medications: *Heparin 5000 units SQ TID (Preferred with Epidurals) *Enoxaparin/Lovenox 40 mg SQ daily (WT < 150 kg, CrCl > 30 mL/min) *Enoxaparin/Lovenox 30 mg SQ daily (WT < 150 kg, CrCl > 10-29 mL/min) *Enoxaparin/Lovenox 30 mg SQ BID (WT < 150 kg, CrCl > 30 mL/min) AND *Sequential Compression Device (SCD) Assessment and Plan Problem List: (1) Aspiration into lower respiratory tract ICD Code: T17.800A - Unspecified foreign body in other parts of respiratory tract causing asphyxiation, initial encounter Status: Acute (2) End stage kidney disease ICD Code: N18.6 - End stage kidney disease Status: Acute (3) CAD (coronary artery disease) ICD Code: I25.10 - CAD (coronary artery disease) Status: Acute (4) DM type 2 (diabetes mellitus, type 2) ICD Code: E11.9 - DM type 2 (diabetes mellitus, type 2) Status: Acute Assessment and Plan Mr. Sharpe is a 61-year-old male with a history of diabetes mellitus, PVD, ESRD currently on dialysis on Tuesday, and Tuesday who presents to the emergency department after he went into respiratory distress towards the end of his dialysis today. Patient states that he experienced abdominal pain present of his dialysis. He apparently also had an episode of vomiting. There was concern over aspiration. Upon arrival patient was found to be in respiratory distress and required nonrebreather. He has leukocytosis with WBC count 12.7 K, lactic acid 6.8. - Severe sepsis (lactic acid 6.8, heart rate 117, respirations 24, WBC count 12.7 K, suspected infection intra-abdominal) - Probable intra-abdominal infection - Probable aspiration pneumonitis - Possible aspiration during dialysis today would likely not cause pneumonia so soon. Pressure pneumonitis is more likely. - Lactic acid of 6.8 along with patient's tachycardia, tachypnea, abdominal pain raise suspicion for intra-abdominal infection. - After discussing extensively with nephrology, we decided to obtain CT abdomen pelvis with IV contrast. Patient cannot tolerate by mouth contrast. - Nephrology will dialyze patient tomorrow (within 24 hours of contrast). - Patient received 1 dose of Zosyn in the emergency department. Discussed with pharmacy, continue Zosyn 2.25 g every 8 hours. - Obtain lactic acid sepsis protocol. - We will admit patient to ICU. Patient is full code. If patient's clinical condition deteriorates, we will consult Decorating Equipment Setter. - Acute respiratory failure - hypoxic. - ABG 7.22/44/126 - Will place patient on BiPAP. If clinically worsens, he may need to be intubated. - Initial bipap setting 16/8 with 50% O2. Titrate as needed. - Will switch to Nasal cannula as patient tolerates, Keep O2 sat > 90%. - ESRD on HD on , , Tuesday. - Diabetes mellitus type 2 - Diabetic neuropathy - Consult nephrology. Already discussed with nephrology regarding dialysis within 24 hours of contrast. - Continue Levemir 15 units daily at bedtime and medium sliding scale. We' ll also add aspart 6 units 3 times a day before meals. - Continue gabapentin 200 mg by mouth daily. - GERD - Insomnia - Depression - Continue PPI, Trazodone, Ambien (home meds). Full code. Heparin SQ. Total critical care time spent more than 45 minutes including assessment, plan, discussion with RN, other providers. Physician Certification 2 Midnight Certification Type: Admission for Inpatient Services Order for Inpatient Services The services are ordered in accordance with Medicare regulations or non- Medicare payer requirements, as applicable. In the case of services not specified as inpatient-only, they are appropriately provided as inpatient services in accordance with the 2-midnight benchmark. Estimated LOS (days): 3 days is the estimated time the patient will need to remain in the hospital, assuming treatment plan goals are met and no additional complications. Post-Hospital Plan: Not yet determined Maribel Elliott DO Nov 11, 2016 14:15
[2016-11-11] MEDS ORDERED: NON-FORMULARY DRUG (Ondansetron (Zofran) 8 MG) PO PRN (14:30)
[2016-11-11] MEDS ORDERED: ZOLPIDEM TARTRATE 5 MG TAB PO PRN (14:30)
[2016-11-11] MEDS ORDERED: DIATRIZOATE MEGLUM/DIATRIZOATE SOD 9 ML CUP PO ONE ×2 (14:52→15:36)
[2016-11-11] MEDS: HEPARIN SODIUM - SQ 10,000 UNITS/ML VIAL SQ SCH (14:54)
[2016-11-11] MEDS ORDERED: RESP: ALBUTEROL 2.5 MG/IPRATROPIUM 0.5 MG NEB (PRN) NEB (15:00)
[2016-11-11] MEDS ORDERED: PILL SPLITTER OTHER PRN (15:30)
[2016-11-11] MEDS ORDERED: ONDANSETRON ODT 4 MG TAB PO PRN (15:45)
[2016-11-11 15:53] LABS: LACTIC ACID GHOST NOT REPORTABLE
[2016-11-11] MEDS ORDERED: RESP: ALBUTEROL 2.5 MG/IPRATROPIUM 0.5 MG NEB (SCH) NEB (16:00)
[2016-11-11] MEDS ORDERED: IOHEXOL 350 MG/ML 10 ML VIAL (for RAD DIAG) IV PUSH ONE (16:01)
--- NOTE | 2016-11-11 16:01 | PD.CONS ---
HPI Service Nephrology Consult Requested By Dr. Elliott Reason for Consult ESRD Management Primary Care Physician Sharan Hill MD History of Present Illness Patient is a 61-year-old male with history of end-stage renal disease on hemodialysis, Tuesdays, and Tuesday he was at dialysis and during the last hour he developed nausea and vomiting and thought to have aspirated. Patient is being transferred here and was hypotensive initially. He has recieved CT scan with contrast He follows with Dr. Bell, He has needles in his AVG. 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 Hypertension Bipolar disorder Depression Gastroesophageal reflux disease Coronary artery disease status post stent placement Congestive heart failure Paranoid schizophrenia Bipolar disorder Peripheral vascular disease Hyperlipidemia Peripheral neuropathy Hypothyroidism Arthritis Esophagitis Colon polyps Past Surgical History EGD Colonoscopy Cardiac catheterization AV fistula placement Reported Medications Reported Meds & Active Scripts Active Reported Midodrine 10 Mg Tab 10 Mg PO BID Lortab (Hydrocodone-Acetaminophen) 10-325 Mg Tab 1 Tab PO Q8HR PRN Trazodone (Trazodone HCl) 150 Mg Tablet 150 Mg PO HS Ambien (Zolpidem Tartrate) 5 Mg Tab 5 Mg PO HS PRN Omeprazole 20 Mg Tab 20 Mg PO DAILY Remeron (Mirtazapine) 15 Mg Tab 15 Mg PO HS Levemir Inj (Insulin Detemir) 1,000 unit/ 10 ML Vial 19 Units SQ DAILY IN THE MORNING Do not mix with any other Insulin. Humalog Inj (Insulin Human Lispro) 1,000 Unit/10 Ml Vial 2-10 Units SQ ACHS Max dose at bedtime:( )units; sugars < 70,(0)units; sugars 150-199,(2)units; sugars 200-249,(4)units; sugars 250-299,(6)units; sugars 300-349,(8)units; sugars 350-399,(10)units. Zofran (Ondansetron HCl) 8 Mg Tab 8 Mg PO Q6HR PRN Tylenol (Acetaminophen) 325 Mg Tab 650 Mg PO Q4H PRN Risperdal (Risperidone) 0.5 Mg Tab 0.75 Mg PO Q12HR Renvela Liq (Sevelamer Carbonate) 2.4 Gm Pack 2.4 Gm PO TIDPC Estrella-Rafa (B-Complex W/ C & Folic Acid) 1 Tab 1 Tab PO DAILY Lexapro (Escitalopram Oxalate) 20 Mg Tab 20 Mg PO HS Levemir Inj (Insulin Detemir) 1,000 unit/ 10 ML Vial 15 Units SQ HS Do not mix with any other Insulin. Lamictal (Lamotrigine) 200 Mg Tab 200 Mg PO HS Gabapentin 100 Mg Cap 200 Mg PO DAILY Flomax (Tamsulosin HCl) 0.4 Mg Cap 0.4 Mg PO HS Duoneb (Ipratropium-Albuterol Neb) 0.5-2.5 Mg/3 Ml Neb 1 Nebule INH Q4HR NEB PRN Bisacodyl EC (Bisacodyl) 5 Mg Tabec 10 Mg PO HS Ascorbic Acid 500 Mg Tab 500 Mg PO DAILY Active Ordered Medications Current Medications Medications (Trade) Dose Ordered Sig/Michael Route Start Time Stop Time Status Last Admin (NS Flush) 2 ml UNSCH PRN IV FLUSH 11/11/16 13:15 (NS Flush) 2 ml BID IV FLUSH 11/11/16 21:00 (Tylenol) 650 mg Q4H PRN PO 11/11/16 13:15 (Zofran Inj) 4 mg Q6H PRN IVP 11/11/16 13:15 (Heparin Inj) 5,000 units Q12H SQ 11/11/16 14:00 11/11/16 14:54 (Narcan Inj) 0.4 mg UNSCH PRN IV PUSH 11/11/16 13:15 (Radha-Colace) 1 tab BID PO 11/11/16 21:00 (Milk Of Magnesia Liq) 30 ml Q12H PRN PO 11/11/16 13:15 (Senokot) 17.2 mg Q12H PRN PO 11/11/16 13:15 (Dulcolax Supp) 10 mg DAILY PRN RECTAL 11/11/16 13:15 (Lactulose Liq) 30 ml DAILY PRN PO 11/11/16 13:15 Piperacillin Sod/ Tazobactam Sod 50 ml @ 100 mls/hr Q8H IV 11/11/16 22:00 (Dulcolax Ec) 10 mg HS PO 11/11/16 21:00 (Lexapro) 20 mg HS PO 11/11/16 21:00 (Neurontin) 200 mg DAILY PO 11/12/16 09:00 (Levemir Inj) 15 units HS SQ 11/11/16 21:00 (LaMICtal) 200 mg HS PO 11/11/16 21:00 (Proamatine) 10 mg BID PO 11/11/16 21:00 (Remeron) 15 mg HS PO 11/11/16 21:00 (risperDAL) 0.75 mg Q12HR PO 11/11/16 21:00 (Flomax) 0.4 mg HS PO 11/11/16 21:00 (Ambien) 5 mg HS PRN PO 11/11/16 14:30 (Duoneb Neb) 1 ampule Q4HR WHILE AWAKE NEB NEB 11/11/16 16:00 (Duoneb Neb) 1 ampule Q2HR NEB PRN NEB 11/11/16 15:00 (Pill Splitter) 1 ea UNSCH PRN OTHER 11/11/16 15:30 (Renvela) 2,400 mg TIDPC PO 11/11/16 18:30 (Protonix) 20 mg DAILY PO 11/12/16 09:00 (Zofran Odt) 8 mg Q6H PRN PO 11/11/16 15:45 (Desyrel) 150 mg HS PO 11/11/16 21:00 Family History Noncontributory Social History History of smoking in the past Physical Exam Vital Signs Vital Signs Date Time Temp Pulse Resp B/P (MAP) Pulse Ox O2 Delivery O2 Flow Rate FiO2 11/11/16 15:24 98 BiPAP 50 11/11/16 15:13 107 40 104/54 (71) 95 BiPAP 50 11/11/16 13:53 97 Non-Rebreather 15.00 11/11/16 13:37 98 24 89/51 (64) 98 Non-Rebreather 13.00 11/11/16 10:40 (71) 100 Non-Rebreather 13.00 11/11/16 10:16 114 20 100 Non-Rebreather 13.00 11/11/16 10:16 98.1 114 24 94/59 (71) 100 Non-Rebreather 13.00 11/11/16 10:07 99 Nasal Cannula 3.00 11/11/16 10:07 98.4 117 24 94/59 (71) 91 Physical Exam GENERAL: Well-nourished, well-developed patient. SKIN: Warm and dry. HEAD: Normocephalic. EYES: No scleral icterus. No injection or drainage. NECK: Supple, trachea midline. No JVD or lymphadenopathy. CARDIOVASCULAR: Regular rate and rhythm without murmurs, gallops, or rubs. RESPIRATORY: Breath sounds decreased at bases GASTROINTESTINAL: Abdomen soft, non-tender, nondistended. EXTREMITIES: No cyanosis, or edema. Left leg AVG NEUROLOGICAL: Awake,Left sided weakness Laboratory Laboratory Tests Test 11/11/16 10:30 11/11/16 10:58 11/11/16 11:15 11/11/16 13:35 White Blood Count 12.7 Red Blood Count 3.86 Hemoglobin 11.3 Hematocrit 36.0 Mean Corpuscular Volume 93.2 Mean Corpuscular Hemoglobin 29.3 Mean Corpuscular Hemoglobin Concent 31.5 Red Cell Distribution Width 16.5 Platelet Count 259 Mean Platelet Volume 9.2 Neutrophils (%) (Auto) 78.8 Lymphocytes (%) (Auto) 12.2 Monocytes (%) (Auto) 8.5 Eosinophils (%) (Auto) 0.2 Basophils (%) (Auto) 0.3 Neutrophils # (Auto) 10.0 Lymphocytes # (Auto) 1.6 Monocytes # (Auto) 1.1 Eosinophils # (Auto) 0.0 Basophils # (Auto) 0.0 CBC Comment AUTO DIFF Differential Total Cells Counted 100 Neutrophils % (Manual) 69 Band Neutrophils % 6 Lymphocytes % 9 Monocytes % 13 Eosinophils % 2 Neutrophils # (Manual) 9.7 Myelocytes 1 Differential Comment FINAL DIFF MANUAL Platelet Estimate NORMAL Platelet Morphology Comment NORMAL Blood Urea Nitrogen 46 Creatinine 5.39 Random Glucose 317 Total Protein 11.1 Albumin 4.0 Calcium Level 8.5 Alkaline Phosphatase 158 Aspartate Amino Transf (AST/SGOT) 22 Alanine Aminotransferase (ALT/SGPT) 23 Total Bilirubin 0.3 Sodium Level 129 Potassium Level 4.0 Chloride Level 93 Carbon Dioxide Level 19.2 Anion Gap 17 Estimat Glomerular Filtration Rate 13 Total Creatine Kinase 226 Creatine Kinase MB 2.5 Troponin I LESS THAN 0.02 B-Type Natriuretic Peptide 25 Blood Gas Puncture Site RT RADIAL Blood Gas Patient Temperature 98.6 Blood Gas HCO3 17 Blood Gas Base Excess -9.2 Blood Gas Oxygen Saturation 96 Arterial Blood pH 7.22 Arterial Blood Partial Pressure CO2 44 Arterial Blood Partial Pressure O2 126 Arterial Blood Oxygen Content 14.3 Arterial Blood Carboxyhemoglobin 1.3 Arterial Blood Methemoglobin 0.4 Blood Gas Hemoglobin 10.4 Oxygen Delivery Device Non-Rebreathing Mask Blood Gas Liter Flow 15 Blood Gas Inspired Oxygen 100 Prothrombin Time 11.4 Prothromb Time International Ratio 1.0 Activated Partial Thromboplast Time 25.0 Lactic Acid Level 6.8 Date/Time Source Procedure Growth Status 11/11/16 13:40 Blood Peripheral Aerobic Blood Culture Pending Received 11/11/16 13:40 Blood Peripheral Anaerobic Blood Culture Pending Received Result Diagram: 11/11/16 1030 11/11/16 1030 Imaging Last Impressions Chest X-Ray 11/11/16 1017 Signed Impressions: Service Date/Time: October 10:20 - CONCLUSION: 1. Discoid atelectasis within the right lung base. 2. Degenerative changes and scoliosis of the thoracic spine. Damaso Sol MD Assessment and Plan Problem List: (1) End stage kidney disease ICD Codes: N18.6 - End stage kidney disease Status: Acute Plan: he can get a short treatment tomorrow as hypotensive give another 250 cc of bolus dialysis on Tuesday, and Tuesday monitor blood pressure observation (2) CAD (coronary artery disease) ICD Codes: I25.10 - CAD (coronary artery disease) Status: Acute Plan: Continue to monitor (3) Congestive heart failure (CHF) ICD Codes: I50.9 - Congestive heart failure (CHF) Status: Acute Plan: monitor and will need hemodialysis in am (4) Aspiration into lower respiratory tract ICD Codes: T17.800A - Unspecified foreign body in other parts of respiratory tract causing asphyxiation, initial encounter Status: Acute Plan: Continue to monitor Manish Kelley MD Nov 11, 2016 16:01
--- NOTE | 2016-11-11 16:16 | RADRPT ---
EXAM DATE/TIME: 11/11/2016 16:00 [facility] COMPARISON: CT ABDOMEN & PELVIS W/O CONTRAST, May 11, 2016, 16:05. INDICATIONS : Abdomen pain, diffuse with shortness of breath. IV CONTRAST: 80 cc Omnipaque 350 (iohexol) IV ORAL CONTRAST: No oral contrast ingested. RADIATION DOSE: 12.1 CTDIvol (mGy) MEDICAL HISTORY : Seizures. Stroke Renal failure, chronic.Diabetes, Liver disease, neoplasm of colon. SURGICAL HISTORY : Coronary artery stent. ENCOUNTER: Initial ACUITY: 1 day PAIN SCALE: 4/10 LOCATION: Bilateral upper quadrant TECHNIQUE: Volumetric scanning of the abdomen and pelvis was performed. Using automated exposure control and ad justment of the mA and/or kV according to patient size, radiation dose was kept as low as reasonably achievable to obtain optimal diagnostic quality images. DICOM format image data is available electro nically for review and comparison. FINDINGS: LOWER LUNGS: Diffuse infiltrate throughout both lower lobes and portions of the left upper lobe. LIVER: Homogeneously lower density without lesion. There is no dilation of the biliary tree. No calcified gallstones. SPLEEN: Normal size without lesion. PANCREAS: Within normal limits. KIDNEYS: Kidneys are atrophic in size. There is no mass, stone or hydronephrosis. ADRENAL GLANDS: Within normal limits. VASCULAR: There is no aortic aneurysm left-sided external vein stent. BOWEL/MESENTERY: The stomach, small bowel, and colon demonstrate no acute abnormality. There is no free intraperitone al air or fluid. ABDOMINAL WALL: Within normal limits. RETROPERITONEUM: There is no lymphadenopathy. BLADDER: No wall thickening or mass. REPRODUCTIVE: Within normal limits. INGUINAL: There is no lymphadenopathy or hernia. MUSCULOSKELETAL: Within normal limits for patient age. CONCLUSION: Bilateral lower lobe infiltrates left greater than right. Atrophic kidneys without evidence of obstru ction. Moderate-sized hiatal hernia. Ramon Jasso MD on November 11, 2016 at 16:12 Board Certified Radiologist. This report was verified electronically.
[2016-11-11] MEDS ORDERED: DEXTROSE 50% IN WATER 50 ML VIAL(D50) IV PRN (16:30)
[2016-11-11] MEDS ORDERED: GLUCAGON 1 MG/ML VIAL OTHER PRN (16:30)
[2016-11-11] MEDS ORDERED: SODIUM CHLOR 0.9% 1000 ML INJ 1,000 ML OTHER PRN (16:37)
[2016-11-11] MEDS ORDERED: SODIUM CHLOR 0.9% 1000 ML INJ 1,000 ML IV PRN (16:37)
[2016-11-11] MEDS ORDERED: SODIUM CHLOR 0.9% 250 ML INJ 250 ML IV ONE ×2 (16:45→17:30)
[2016-11-11] MEDS ORDERED: cloNIDine HCL 0.1 MG TAB PO PRN (16:45)
[2016-11-11] MEDS ORDERED: diphenhydrAMINE HCL 25 MG CAP PO PRN (16:45)
[2016-11-11] MEDS ORDERED: ONDANSETRON HCL 4 MG/2 ML VIAL IV PUSH PRN ×2 (16:45→19:15)
[2016-11-11] MEDS ORDERED: HEPARIN SODIUM - IV 10,000 UNITS/10 ML VIAL IV FLUSH PRN (16:45)
[2016-11-11] MEDS ORDERED: EPOETIN ALFA 10,000 UNITS/ML VIAL IV PRN (16:45)
[2016-11-11] MEDS ORDERED: NITROGLYCERIN 0.4 MG SL 25 TABS/BTL SL PRN (16:45)
[2016-11-11] MEDS ORDERED: MANNITOL 12.5 GM/50 ML VIAL IV PRN (16:45)
[2016-11-11] MEDS ORDERED: INSULIN ASPART 1,000 UNITS/10 ML VIAL SQ SCH (17:00)
[2016-11-11] MEDS ORDERED: INSULIN ASPART SUPPLEMENTAL SCALE SQ SCH (17:00)
[2016-11-11] MEDS ORDERED: NOREPINEPHRINE-DEXTROSE DRIP 250 ML IV ONE (18:05)
--- NOTE | 2016-11-11 18:06 | EKG ---
Date Performed: 11/11/2016 Time Performed: 10:21:54 PTAGE: 61 years EKG: SINUS TACHYCARDIA LEFT ATRIAL ENLARGEMENT POSSIBLE RIGHT VENTRICULAR CONDUCTION DELAY Trip red to prior tracing no significant change ABNORMAL ECG PREVIOUS TRACING : 05/21/2016 12.32 DOCTOR: Jonatan Alfonso Interpretating Date/Time 11/11/2016 18:06:14
[2016-11-11] MEDS: SEVELAMER CARBONATE 800 MG TAB PO SCH (18:30)
[2016-11-11] MEDS ORDERED: SEVELAMER CARBONATE 2.4 GM PO SCH (18:30)
--- NOTE | 2016-11-11 19:08 | PD.CONS ---
[facility] Service Critical Care Medicine Consult Requested By Dr. Elliott Reason for Consult Respiratory failure Primary Care Physician Sharan Hill MD History of Present Illness 61-year-old AA male of admission 11/11/2016. Date of consultation 11/11/2016. Past medical history of ESRD on HD , , Tuesday , coronary artery disease S/P stent, right frontal CVA with left-sided weakness hypertension, diabetes, anemia chronic disease, schizophrenia/bipolar disorder, who presented to the ED after an episode of vomiting during the last phase of his dialysis on 11/11. Patient complains that towards the end of his dialysis today he started having abdominal pain but he did not vomit. Patient had significant respiratory distress upon arrival. At the time of this interview patient was on nonrebreather with [address] abdomen/pelvis revealed a hiatal hernia, atrophic kidneys and bilateral infiltrates likely from aspiration. White Blood cell count 12,000. Lactate was 6.8. Patient became acutely hypotensive on the floor requiring initiation of peripheral vasopressors. Due to his underlying respiratory failure, patient required emergent intubation due to acute hypoxemic respiratory failure due to aspiration with severe sepsis Review of Systems ROS Limitations: Altered Mental Status Past Family Social History Allergies: Coded Allergies: methadone (Unverified Allergy, Severe, 10/12/16) acetaminophen (Unverified Allergy, Unknown, 10/12/16) PATIENT WAS TOLD TO NEVER TAKE THIS MEDICATION propoxyphene (Unverified Allergy, Unknown, 10/12/16) PATIENT WAS TOLD TO NEVER TAKE THIS MEDICATION *MDRO Multi-Drug Resistant Organism (Verified Adverse Reaction, Unknown, ESBL, MRSA, 05/24/16) ESBL (sputum & urine) - 06/2015 MRSA (urine) - 02/2012 Past Medical History Left eye blindness Bipolar disorder Schizophrenic/paranoid type Hypertension Diabetes mellitus with neuropathy and nephropathy Anemia of chronic kidney disease Hypothyroidism Depression History of GI bleed Gastroesophageal reflux disease Peripheral vascular disease Dyslipidemia Osteoarthritis Esophagitis Colon polyps BPH End-stage renal disease on hemodialysis dialysis Tuesday/ and Tuesday Congestive heart failure/diastolic Past Surgical History EGD/colonoscopy Left AV fistula placement Cardiac catheterization Reported Medications Midodrine 10 Mg Tab 10 Mg PO BID Lortab (Hydrocodone-Acetaminophen) 10-325 Mg Tab 1 Tab PO Q8HR PRN Trazodone (Trazodone HCl) 150 Mg Tablet 150 Mg PO HS Ambien (Zolpidem Tartrate) 5 Mg Tab 5 Mg PO HS PRN Omeprazole 20 Mg Tab 20 Mg PO DAILY Remeron (Mirtazapine) 15 Mg Tab 15 Mg PO HS Levemir Inj (Insulin Detemir) 1,000 unit/ 10 ML Vial 19 Units SQ DAILY IN THE MORNING Do not mix with any other Insulin. Humalog Inj (Insulin Human Lispro) 1,000 Unit/10 Ml Vial 2-10 Units SQ ACHS Max dose at bedtime:( )units; sugars < 70,(0)units; sugars 150-199,(2)units; sugars 200-249,(4)units; sugars 250-299,(6)units; sugars 300-349,(8)units; sugars 350-399,(10)units. Zofran (Ondansetron HCl) 8 Mg Tab 8 Mg PO Q6HR PRN Tylenol (Acetaminophen) 325 Mg Tab 650 Mg PO Q4H PRN Risperdal (Risperidone) 0.5 Mg Tab 0.75 Mg PO Q12HR Renvela Liq (Sevelamer Carbonate) 2.4 Gm Pack 2.4 Gm PO TIDPC Estrella-Rafa (B-Complex W/ C & Folic Acid) 1 Tab 1 Tab PO DAILY Lexapro (Escitalopram Oxalate) 20 Mg Tab 20 Mg PO HS Levemir Inj (Insulin Detemir) 1,000 unit/ 10 ML Vial 15 Units SQ HS Do not mix with any other Insulin. Lamictal (Lamotrigine) 200 Mg Tab 200 Mg PO HS Gabapentin 100 Mg Cap 200 Mg PO DAILY Flomax (Tamsulosin HCl) 0.4 Mg Cap 0.4 Mg PO HS Duoneb (Ipratropium-Albuterol Neb) 0.5-2.5 Mg/3 Ml Neb 1 Nebule INH Q4HR NEB PRN Bisacodyl EC (Bisacodyl) 5 Mg Tabec 10 Mg PO HS Ascorbic Acid 500 Mg Tab 500 Mg PO DAILY Active Ordered Medications Reviewed in EMR Family History No family history of heart disease, cancer, Social History Note that can tobacco, alcohol or IV drug use Physical Exam Vital Signs Vital Signs Date Time Temp Pulse Resp B/P (MAP) Pulse Ox O2 Delivery O2 Flow Rate FiO2 11/11/16 16:30 100 11/11/16 16:24 11/11/16 16:20 98 100 9/14/17 15:24 98 BiPAP 50 11/11/16 15:13 107 40 104/54 (71) 95 BiPAP 50 11/11/16 14:58 95 50 11/11/16 13:53 97 Non-Rebreather 15.00 11/11/16 13:37 98 24 89/51 (64) 98 Non-Rebreather 13.00 11/11/16 10:40 (71) 100 Non-Rebreather 13.00 11/11/16 10:16 114 20 100 Non-Rebreather 13.00 11/11/16 10:16 98.1 114 24 94/59 (71) 100 Non-Rebreather 13.00 11/11/16 10:07 99 Nasal Cannula 3.00 11/11/16 10:07 98.4 117 24 94/59 (71) 91 Physical Exam GENERAL: 61-year-old male, critically critically ill on nonrebreather mask SKIN: Warm and dry. No rash HEAD: Atraumatic. Normocephalic. EYES: Pupils fixed about 3 mm. Right pupil is reactive about 3 mm to 2 mm. ENT: No nasal bleeding or discharge. Mucous membranes pink and moist. NECK: Trachea midline. No JVD. CARDIOVASCULAR: Regular rate and rhythm. S1, S2. No S4 without murmur RESPIRATORY: Coarse crackles appreciated bilaterally right greater than left. No wheeze.. GASTROINTESTINAL: Abdomen debridement, and tender with hypo-bowel sounds appreciated. MUSCULOSKELETAL: Left lower extremity with AV fistula/palpable thrill. Minimal peripheral edema. Bilateral hammertoes. Left upper and lower extremity contracted from prior stroke. NEUROLOGICAL: Somewhat Solomnent. Withdrawing to right upper and lower extremity. Nonfocal. Known deficits to left upper and lower extremity. Laboratory Laboratory Tests Test 11/11/16 10:30 11/11/16 10:58 11/11/16 11:15 11/11/16 13:35 White Blood Count 12.7 Red Blood Count 3.86 Hemoglobin 11.3 Hematocrit 36.0 Mean Corpuscular Volume 93.2 Mean Corpuscular Hemoglobin 29.3 Mean Corpuscular Hemoglobin Concent 31.5 Red Cell Distribution Width 16.5 Platelet Count 259 Mean Platelet Volume 9.2 Neutrophils (%) (Auto) 78.8 Lymphocytes (%) (Auto) 12.2 Monocytes (%) (Auto) 8.5 Eosinophils (%) (Auto) 0.2 Basophils (%) (Auto) 0.3 Neutrophils # (Auto) 10.0 Lymphocytes # (Auto) 1.6 Monocytes # (Auto) 1.1 Eosinophils # (Auto) 0.0 Basophils # (Auto) 0.0 CBC Comment AUTO DIFF Differential Total Cells Counted 100 Neutrophils % (Manual) 69 Band Neutrophils % 6 Lymphocytes % 9 Monocytes % 13 Eosinophils % 2 Neutrophils # (Manual) 9.7 Myelocytes 1 Differential Comment FINAL DIFF MANUAL Platelet Estimate NORMAL Platelet Morphology Comment NORMAL Blood Urea Nitrogen 46 Creatinine 5.39 Random Glucose 317 Total Protein 11.1 Albumin 4.0 Calcium Level 8.5 Alkaline Phosphatase 158 Aspartate Amino Transf (AST/SGOT) 22 Alanine Aminotransferase (ALT/SGPT) 23 Total Bilirubin 0.3 Sodium Level 129 Potassium Level 4.0 Chloride Level 93 Carbon Dioxide Level 19.2 Anion Gap 17 Estimat Glomerular Filtration Rate 13 Total Creatine Kinase 226 Creatine Kinase MB 2.5 Troponin I LESS THAN 0.02 B-Type Natriuretic Peptide 25 Blood Gas Puncture Site RT RADIAL Blood Gas Patient Temperature 98.6 Blood Gas HCO3 17 Blood Gas Base Excess -9.2 Blood Gas Oxygen Saturation 96 Arterial Blood pH 7.22 Arterial Blood Partial Pressure CO2 44 Arterial Blood Partial Pressure O2 126 Arterial Blood Oxygen Content 14.3 Arterial Blood Carboxyhemoglobin 1.3 Arterial Blood Methemoglobin 0.4 Blood Gas Hemoglobin 10.4 Oxygen Delivery Device Non-Rebreathing Mask Blood Gas Liter Flow 15 Blood Gas Inspired Oxygen 100 Prothrombin Time 11.4 Prothromb Time International Ratio 1.0 Activated Partial Thromboplast Time 25.0 Lactic Acid Level 6.8 Date/Time Source Procedure Growth Status 11/11/16 13:40 Blood Peripheral Aerobic Blood Culture Pending Received 11/11/16 13:40 Blood Peripheral Anaerobic Blood Culture Pending Received Result Diagram: 11/11/16 1030 11/11/16 1030 Imaging Last Impressions Chest X-Ray 11/11/16 1017 Signed Impressions: Service Date/Time: October 10:20 - CONCLUSION: 1. Discoid atelectasis within the right lung base. 2. Degenerative changes and scoliosis of the thoracic spine. Damaso Sol MD Abdomen/Pelvis CT 11/11/16 0000 Signed Impressions: Service Date/Time: October 16:00 - CONCLUSION: Bilateral lower lobe infiltrates left greater than right. Atrophic kidneys without evidence of obstruction. Moderate-sized hiatal hernia. Ramon Jasso MD Assessment and Plan Assessment and Plan Neuro/Psych: Bipolar disorder Paranoid schizophrenia Depression Left eye blindness Insomnia Chronic narcotic use Patient is currently on propofol/midazolam drips for sedation while intubated Goal of RA SS -2 Daily sedation vacation Patient is on mirtazapine 15 mg at night for depression. Patient is on Risperidone 0.75 mg every 12 hours Patient is on trazodone 150 mill grams at night for anxiety/depression Patient is on escitalopram oxalate 20 mg at night for depression Patient is on lamotrigine 200 mg at night for psychosis Patient is on gabapentin 200 mg daily for peripheral neuropathy Holding zolpidem tartrate 5 mg at night when necessary insomnia Patient is on hydrocodone/acetaminophen 10/325 one tab every 8 hours. 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 Noted acetaminophen allergy above however patient is on this medication along with acetaminophen as needed CV: Severe sepsis Lactic acidosis History of chronic diastolic heart failure Hypertension Dyslipidemia Coronary disease status post stent placement Peripheral vascular disease Patient has been started on norepinephrine drip at 20 mics grams per minute and vasopressin at 0.04 units and then often drip at 40 mg a minute Source of sepsis likely aspiration pneumonia. CT abdomen/pelvis revealed no acute abdominal findings Will received 500 cc bolus and started on maintenance fluids Serial lactates every 6 hours until cleared Continue midodrine 10 mg by mouth twice a day Currently not on any anti-hypertensives or dyslipidemia medications at home Resp: Acute hypoxemic respiratory failure secondary to aspiration PRVC 16/550/1/5/100 Ventilator bundle Albuterol/ipratropium aerosols every 4 hours with albuterol nebs every 2 hours. Dyspnea Follow-up chest x-ray post intubation Spontaneous breathing trials when clinically indicated GI: Gastroesophageal reflux disease history of esophagitis History of colonic polyps Hiatal hernia Patient is on omeprazole 20 mg daily for gastroesophageal reflux disease at home. Currently on famotidine 10 mg IV twice a day NG tube to low intermittent water suction Docusate sodium/Senokot for bowel regimen : BPH Mann catheter not indicated. 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 Sliding-scale insulin with Novulin R to maintain euglycemia/moderate protocol every 4 hours Check TSH Renal: End-stage renal disease on hemodialysis Tuesday//Tuesday [employer] been consulted for hemodialysis as Dr. Kelley Left AV left AV Fistula/femoral with positive thrill Continue Sevelamir 2.4 g 3 times a day for hyperphosphatemia Heme: Anemia of chronic kidney disease Leukocytosis Monitor CBC daily. Follow trends No indication for transfusion of blood proximal at this time ID: Severe sepsis Pancultured: Blood cultures 2, urine and sputum Day #1 piperacillin/tazobactam, vancomycin and azithromycin FEN: Hyponatremia Replace electrolytes as clinically indicated MSK: Chronic contractures left upper and lower extremities [facility] Physical therapy evaluate and treat Access - Utilize peripheral IV. Central line if indicated Prophylaxis - GI - famotidine - DVT - SCD/heparin Critical Care: The total critical care time was 35 minutes. Time to perform other separately billable procedures was not included in the critical care time. Discussed with Dr. Belle White. Patient will now be alternate code, intubation and ACLS drugs only. No chest compressions/no shocks. Palliative care will be involved. She wishes only 3 days and will withdraw no significant improvement. Code Status Alternate code, ACLS drugs/intubation only Discussed Condition With Patient. Care plan discussed and all questions answered. Jorge Dunlap MD Nov 11, 2016 19:07
[2016-11-11] MEDS ORDERED: SODIUM CHLOR 0.9% 1000 ML INJ 1,000 ML IV SCH (19:15)
[2016-11-11] MEDS ORDERED: MISCELLANEOUS NURSING INFORMATION XX SCH (19:15)
[2016-11-11] MEDS ORDERED: ETOMIDATE 40 MG/20 ML VIAL IV PUSH ONE (19:15)
[2016-11-11] MEDS ORDERED: Vancomycin Consult Pharmacy 1 EA OTHER SCH (19:15)
[2016-11-11] MEDS ORDERED: RESP: ALBUTEROL 2.5 MG/3 ML NEB (PRN) NEB (19:15)
[2016-11-11] MEDS ORDERED: MIDAZOLAM 100 MG/100 ML INJ 100 ML IV PRN (19:15)
[2016-11-11] MEDS ORDERED: ROCURONIUM INJ 100 MG/10 ML VIAL IV ONE (19:15)
[2016-11-11] MEDS ORDERED: CHLORHEXIDINE GLUCONATE 2 % 1 PACK (2 CLOTHS) TOP PRN (19:15)
[2016-11-11] MEDS ORDERED: TERBUTALINE INJ 1 MG/ML AMP SQ PRN ×2 (19:15)
[2016-11-11] MEDS ORDERED: ROCURONIUM INJ 50 MG/5 ML VIAL ONE ×2 (19:26→19:32)
[2016-11-11] MEDS: CHLORHEXIDINE 0.12% (ORAL KIT) 15 ML CUP MT SCH (20:00)
[2016-11-11] MEDS: RESP: ALBUTEROL 2.5 MG/IPRATROPIUM 0.5 MG NEB (SCH) NEB (20:00)
--- NOTE | 2016-11-11 20:44 | PD.PROCEDR ---
Central Line Procedure REASON FOR PROCEDURE Central venous access PROCEDURE PERFORMED Central line placement: Right femoral CVL CONSENT Informed consent for procedure was obtained from patient. The risks and benefits of the procedure were discussed to include but limited to bleeding, clot formation, infection, and even . ANESTHESIA Local injection of 1% Lidocaine DESCRIPTION OF THE PROCEDURE The patient was placed in supine, mild Trendelenburg position. The area was exposed and cleansed with ChloraPrep, times two. Large sterile drape was used to cover the patient, with the site exposed, under sterile conditions including cap, face mask, sterile gown, and sterile gloves. On single attempt, the introducer needle was inserted with negative pressure in syringe and venous flash was obtained. The guide wire was then advanced without any restriction and the needle was removed. The dilator was used without any complications. Using Seldinger technique the antibiotic coated triple-lumen catheter was advanced over the guide wire to a depth of 20 centimeters. The guide wire was removed. All ports were aspirated with dark venous blood return and flushed easily with sterile saline. All ports were capped. Antibiotic disc was placed around central line at puncture site. The central line was secured to the skin with two interrupted 2.0 silk sutures. The area was bandaged with sterile see- through central line bandage. RADIOLOGICAL DATA Ultrasound guidance was used to locate right femoral vein. Doppler/color flow was used to confirm venous flow. VBG was performed COMPLICATIONS: No apparent complications ESTIMATED BLOOD LOSS: Less than 1 cc. Jorge Dunlap MD Nov 11, 2016 20:44
--- NOTE | 2016-11-11 20:45 | PD.PROCEDR ---
Procedure Note Procedure DATE: 11/11/2016 PROCEDURE: Orotracheal intubation INDICATION: Acute hypoxemic respiratory failure DETAILS OF PROCEDURE The patient was placed in optimal position and preoxygenated with 100% FiO2 via bag valve mask. At the start oxygen saturation was 100%. The patient was administered 20 milligrams etomidate IV and 50 milligrams rocuronium IV. I entered the oropharynx with a size 4 GVL glidescope blade and obtained a grade 2 view of the airway. On single attempt a size 8.0 cuffed endotracheal tube was passed through the vocal cords. Correct tube location was confirmed with end tidal CO2 detector and by auscultating over bilateral lung jacobson. The endotracheal tube was secured with adhesive tape at a depth of 24 cm at the lips. The patient was connected to the ventilator. The patient tolerated the procedure well without any apparent complications. Oxygen saturations were maintained greater than 95% all times. STAT chest x-ray pending at time of dictation. Jorge Dunlap MD Nov 11, 2016 20:44
[2016-11-11] MEDS ORDERED: VANCOMYCIN INJ 1,250 MG in SODIUM CHLOR 0.9% 250 ML INJ 250 ML IV ONE (21:00)
[2016-11-11] MEDS ORDERED: SODIUM CHLORIDE 0.9% FLUSH 10 ML FLUSH IV FLUSH SCH (21:00)
[2016-11-11] MEDS ORDERED: INSULIN DETEMIR 100 UNITS/ML VIAL SQ SCH (21:00)
[2016-11-11] MEDS ORDERED: NON-FORMULARY DRUG (Trazodone 150 MG) PO SCH (21:00)
--- NOTE | 2016-11-11 21:43 | RADRPT ---
EXAM DATE/TIME: 11/11/2016 21:03 [facility] COMPARISON: CHEST SINGLE AP, November 11, 2016, 10:20. INDICATIONS : Post intubation. MEDICAL HISTORY : Hypertension. Diabetes mellitus type II. Cardiovascular disease. SURGICAL HISTORY : None. ENCOUNTER: Subsequent ACUITY: 1 day PAIN SCORE: Non-responsive. LOCATION: Bilateral chest FINDINGS: Endotracheal tube tip is at the gayle. There is left greater than right basilar consolidation. No pl eural effusion. No pneumothorax. CONCLUSION: Endotracheal tube tip is at the gayle and should be pulled back a few centimeters. Left greater than right airspace opacities have developed. Report called to the floor. Seun Rodriguez MD on November 11, 2016 at 21:38 Board Certified Radiologist. This report was verified electronically.
[2016-11-11 22:21] LABS: AUTOMATED NEUTROPHIL # 10.5 TH/MM3 (1.8-7.7); BASOPHIL % 0.3 % (0.0-2.0); HEMATOCRIT 31.6 % (39.0-51.0); HEMO FLAGS DIFF FINAL; LYMPH % 2.9 % (9.0-44.0); LYMPHOCYTE # 0.4 TH/MM3 (1.0-4.8); MEAN CORPUSCULAR HEMOGLOBIN 29.2 PG (27.0-34.0); MEAN CORPUSCULAR HGB CONC 31.7 % (32.0-36.0); MONO % 9.5 % (0.0-8.0); NEUT % 87.3 % (16.0-70.0); PLATELET COUNT 241 TH/MM3 (150-450); RED BLOOD COUNT 3.44 MIL/MM3 (4.50-5.90); RED CELL DISTRIBUTION WIDTH 16.3 % (11.6-17.2)
[2016-11-11 22:25] LABS: BLOOD GAS BASE EXCESS -8.3 mmol/L (-2-2); BLOOD GAS CARBOXYHEMOGLOBIN 1.8 % (0-4); BLOOD GAS HCO3 17 mmol/L (22-26); BLOOD GAS METHEMOGLOBIN 1.1 % (0-2); BLOOD GAS O2 HGB SATURATION 95 % (90-100); BLOOD GAS OXYGEN CONTENT 14.4 Vol % (12.0-20.0); BLOOD GAS PCO2 37 mmHg (38-42); BLOOD GAS PO2 132 mmHg (61-120); BLOOD GAS TOTAL HGB 10.5 G/DL (12.0-16.0); TEMP CORR TO 98.6
[2016-11-11 22:26] LABS: CRITICAL VALUE YES; DRAW SITE RT BRACHIAL; FIO2 60 %; NUMBER OF ARTERIAL PUNCTURES 1; OXYGEN DEVICE VENTILATOR; STAT NO; ULNAR PULSE PRESENT; VENT SETTINGS VAC16/500/PEEP5
[2016-11-12] VITALS (21 sets, daily range): BP systolic 90–116; BP diastolic 53–74; PULSE 67–86; RESP 18–20; TEMP 97.6–99.4; O2SAT 24–100
[2016-11-12] MEDS: PROPOFOL 1000 MG/100 ML INJ 100 ML IV PRN ×5 (03:34→23:21)
[2016-11-12] MEDS: SODIUM CHLOR 0.9% 1000 ML INJ 1,000 ML IV SCH ×5 (03:35→21:41)
[2016-11-12] MEDS: PIPERACIL-TAZO 2.25 GM PREMIX 50 ML IV SCH ×4 (03:35→21:41)
[2016-11-12] MEDS: PHENYLEPHRINE INJ 160 MG in DEXTROSE 5% IN WATE 500 ML INJ 484 ML IV PRN ×4 (03:36→10:13)
[2016-11-12] MEDS: NOREPINEPHRINE INJ 4 MG in SODIUM CHLOR 0.9% 250 ML INJ 246 ML IV PRN ×3 (03:37→10:12)
[2016-11-12] MEDS: HEPARIN SODIUM - SQ 10,000 UNITS/ML VIAL SQ SCH ×2 (03:38→14:00)
[2016-11-12] MEDS: VASOPRESSIN INJ 40 UNITS in DEXTROSE 5% IN WATER 100ML INJ 98 ML IV SCH ×4 (03:38→10:59)
[2016-11-12] MEDS: DOCUSATE SODIUM 50 MG/SENNA 8.6 MG TAB PO SCH ×3 (03:39→21:42)
[2016-11-12] MEDS: ESCITALOPRAM OXALATE 20 MG TAB PO SCH ×2 (03:39→21:42)
[2016-11-12] MEDS: FAMOTIDINE 20 MG/2 ML VIAL IV PUSH SCH ×3 (03:39→21:42)
[2016-11-12] MEDS: MIDODRINE 5 MG TAB PO SCH ×3 (03:39→21:42)
[2016-11-12] MEDS: TAMSULOSIN HCL 0.4 MG CAP PO SCH ×2 (03:39→21:42)
[2016-11-12] MEDS: MIRTAZAPINE 15 MG TAB PO SCH ×2 (03:39→21:43)
[2016-11-12] MEDS: risperiDONE 0.5 MG TAB PO SCH ×3 (03:40→21:42)
[2016-11-12] MEDS: traZODone HCL 50 MG TAB PO SCH ×2 (03:40→21:42)
[2016-11-12] MEDS: BISACODYL EC 5 MG TABEC PO SCH ×2 (03:40→21:42)
[2016-11-12] MEDS: lamoTRIgine 100 MG TAB PO SCH ×2 (03:40→21:42)
[2016-11-12] MEDS: SODIUM CHLORIDE 0.9% FLUSH 10 ML FLUSH IV FLUSH SCH ×3 (03:40→21:43)
[2016-11-12] MEDS: CHLORHEXIDINE GLUCONATE 2 % 1 PACK (2 CLOTHS) TOP SCH (03:42)
[2016-11-12] MEDS: INSULIN ASPART SUPPLEMENTAL SCALE SQ SCH ×6 (04:00→20:00)
[2016-11-12] MEDS: AZITHROMYCIN INJ 500 MG in SODIUM CHLOR 0.9% 250 ML INJ 250 ML IV SCH ×2 (04:02→21:41)
[2016-11-12] MEDS: RESP: ALBUTEROL 2.5 MG/IPRATROPIUM 0.5 MG NEB (SCH) NEB ×5 (04:17→20:04)
[2016-11-12 04:18] LABS: APTT (PATIENT) 30.1 SEC (24.3-30.1)
[2016-11-12 04:26] LABS: BICARBONATE 20.5 MEQ/L (21.0-32.0); INDIRECT BILIRUBIN 0.4 MG/DL (0.0-0.8); MAGNESIUM 2.2 MG/DL (1.5-2.5); POTASSIUM 5.7 MEQ/L (3.5-5.1); TOTAL BILIRUBIN ADULT 0.6 MG/DL (0.2-1.0)
[2016-11-12 04:47] LABS: AUTOMATED NEUTROPHIL # 11.4 TH/MM3 (1.8-7.7); BASOPHIL % 0.2 % (0.0-2.0); HEMATOCRIT 28.9 % (39.0-51.0); LYMPH % 8.7 % (9.0-44.0); LYMPHOCYTE # 1.2 TH/MM3 (1.0-4.8); MEAN CELL VOLUME 91.1 FL (80.0-100.0); MEAN CORPUSCULAR HEMOGLOBIN 28.7 PG (27.0-34.0); MEAN CORPUSCULAR HGB CONC 31.5 % (32.0-36.0); MONO % 8.6 % (0.0-8.0); NEUT % 82.5 % (16.0-70.0); PLATELET COUNT 225 TH/MM3 (150-450); RED BLOOD COUNT 3.17 MIL/MM3 (4.50-5.90); RED CELL DISTRIBUTION WIDTH 16.1 % (11.6-17.2); WHITE BLOOD COUNT 13.8 TH/MM3 (4.0-11.0)
[2016-11-12 04:51] LABS: HEMO FLAGS AUTO DIFF
[2016-11-12 05:16] LABS: BICARBONATE 21.4 MEQ/L (21.0-32.0); MAGNESIUM 2.3 MG/DL (1.5-2.5); POTASSIUM 5.5 MEQ/L (3.5-5.1)
[2016-11-12 07:13] LABS: BANDS 49 % (0-6); METAMYELOCYTES 5 % (0-1); MYELOCYTES 1 % (0-0); NEUTROPHIL # MANUAL DIFF 12.4 TH/MM3 (1.8-7.7); POLYS (SEG NEUTROPHILS) 35 % (16-70); WBC DIFF SAMPLE 100
[2016-11-12 07:22] LABS: PLATELET ESTIMATE SMEAR NORMAL (NORMAL); PLATELET MORPHOLOGY ENLARGED (NORMAL)
[2016-11-12 07:42] LABS: SCAN/DIFF FINAL DIFF MANUAL; SPHEROCYTES OCC (NORMAL)
[2016-11-12] MEDS: GABAPENTIN 100 MG CAP PO SCH (08:34)
[2016-11-12] MEDS: CHLORHEXIDINE 0.12% (ORAL KIT) 15 ML CUP MT SCH ×2 (08:34→21:41)
--- NOTE | 2016-11-12 08:46 | PD.CONS ---
Consult Service Palliative Care . Consult Requested By Dr. Dunlap . Primary Care Physician Sharan Hill MD . Reason for Consultation a. To assist with evaluation and management of symptoms including: pain, dyspnea. b. To assist medical decision maker(s) with: better understanding of current medical conditions; weighing benefits/burdens of medical treatment options; making medical treatment decisions. . HPI History of Present Illness Mr. 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 Patient presented to [facility] emergency department on 11/11/16 after he vomiting during dialysis, developed respiratory distress, suspected aspiration. Upon arrival to the ER he was in mild respiratory distress and was coughing. Initial evaluation revealed: * VS: temp 98.1, pulse 114, resp 20, O2 sat 100% on NRB * WBC 12.7, hemoglobin 11.3, hematocrit 36, platelets 259, neutrophils 78.8% * BUN 46, creatinine 5.39, sodium 4.0, chloride 93 * total protein 11.1, albumin 4.0 * T. Bili 0.3, AST 22, ALT 23, alk phos 158 * CK-MB 2.5, troponin less than 0.02, BNP 25 * PT 11.4, INR 1.0, PTT 25.0 * Chest xray - discoid atelectasis with the right lung base, degenerative changes and scoliosis of thoracic spine. * CT abd/pelvis - bilateral lower lobe infiltrates left > right, atrophic kidneys without evidence of obstruction and moderate sized hiatal hernia. Patient was admitted with aspiration pneumonia. He became acutely hypotensive requiring vasopressor support. He was emergently intubated for acute hypoxemic respiratory failure due to aspiration/ sepsis. [facility] On Vaso (0.04), Howard (90) and Levo (11). Afebrile. WBC 13.8. Blood and sputum cultures pending. Troponin 0.09. Daughter has elected alternate code ( intubation and ACLS only). Notes indicate daughter wants to give the patient a few days, if no clinical improvement would consider transition to comfort. Palliative care is consulted to assist with further clarification of treatment goals. . Function/Cognitive Trajectory Frequent hospitalizations and ongoing decline. Daughter reports she was previously considering hospice at the recommendation of the SNF, but wanted to have the conversation with her father. Unfortunately he ended up in the hospital again before she was able to speak with him. . Review of Systems Constitutional: COMPLAINS OF: Fatigue, Generalized weakness Eyes: COMPLAINS OF: Blurred vision (blind left eye, wears glasses. ), Vision loss (blind left eye) Respiratory: COMPLAINS OF: Cough, Shortness of breath Musculoskeletal: COMPLAINS OF: Joint pain, Back pain, Decreased range of motion Neurologic: COMPLAINS OF: Localized weakness (left residual weakness/ contracture from old CVA) Psychiatric: COMPLAINS OF: Anxiety, Depression Other ROS: Pt intubated, unable to provide ROS. ROS per daughter and EMR review. . Past Family Social History Coded Allergies: methadone (Unverified Allergy, Severe, 10/12/16) acetaminophen (Unverified Allergy, Unknown, 10/12/16) PATIENT WAS TOLD TO NEVER TAKE THIS MEDICATION propoxyphene (Unverified Allergy, Unknown, 10/12/16) PATIENT WAS TOLD TO NEVER TAKE THIS MEDICATION Past Medical History Diabetes CVA 10 years ago with left sided residual weakness Hypertension Bipolar disorder Depression Coronary artery disease status post stent placement Congestive heart failure Paranoid schizophrenia Peripheral vascular disease Hyperlipidemia Peripheral neuropathy Hypothyroidism Arthritis Esophagitis GERD Colon polyps . Past Surgical History EGD Colonoscopy Cardiac catheterization AV fistula placement Reported Medications Reported Meds & Active Scripts Active Reported Midodrine 10 Mg Tab 10 Mg PO BID Lortab (Hydrocodone-Acetaminophen) 10-325 Mg Tab 1 Tab PO Q8HR PRN Trazodone (Trazodone HCl) 150 Mg Tablet 150 Mg PO HS Ambien (Zolpidem Tartrate) 5 Mg Tab 5 Mg PO HS PRN Omeprazole 20 Mg Tab 20 Mg PO DAILY Remeron (Mirtazapine) 15 Mg Tab 15 Mg PO HS Levemir Inj (Insulin Detemir) 1,000 unit/ 10 ML Vial 19 Units SQ DAILY IN THE MORNING Do not mix with any other Insulin. Humalog Inj (Insulin Human Lispro) 1,000 Unit/10 Ml Vial 2-10 Units SQ ACHS Max dose at bedtime:( )units; sugars < 70,(0)units; sugars 150-199,(2)units; sugars 200-249,(4)units; sugars 250-299,(6)units; sugars 300-349,(8)units; sugars 350-399,(10)units. Zofran (Ondansetron HCl) 8 Mg Tab 8 Mg PO Q6HR PRN Tylenol (Acetaminophen) 325 Mg Tab 650 Mg PO Q4H PRN Risperdal (Risperidone) 0.5 Mg Tab 0.75 Mg PO Q12HR Renvela Liq (Sevelamer Carbonate) 2.4 Gm Pack 2.4 Gm PO TIDPC Estrella-Rafa (B-Complex W/ C & Folic Acid) 1 Tab 1 Tab PO DAILY Lexapro (Escitalopram Oxalate) 20 Mg Tab 20 Mg PO HS Levemir Inj (Insulin Detemir) 1,000 unit/ 10 ML Vial 15 Units SQ HS Do not mix with any other Insulin. Lamictal (Lamotrigine) 200 Mg Tab 200 Mg PO HS Gabapentin 100 Mg Cap 200 Mg PO DAILY Flomax (Tamsulosin HCl) 0.4 Mg Cap 0.4 Mg PO HS Duoneb (Ipratropium-Albuterol Neb) 0.5-2.5 Mg/3 Ml Neb 1 Nebule INH Q4HR NEB PRN Bisacodyl EC (Bisacodyl) 5 Mg Tabec 10 Mg PO HS Ascorbic Acid 500 Mg Tab 500 Mg PO DAILY . Current Medications Medications (Trade) Dose Ordered Sig/Michael Route Start Time Stop Time Status Last Admin (Tylenol) 650 mg Q4H PRN PO 11/11/16 13:15 (Heparin Inj) 5,000 units Q12H SQ 11/11/16 14:00 11/12/16 03:38 (Narcan Inj) 0.4 mg UNSCH PRN IV PUSH 11/11/16 13:15 (Radha-Colace) 1 tab BID PO 11/11/16 21:00 11/12/16 08:33 (Milk Of Magnesia Liq) 30 ml Q12H PRN PO 11/11/16 13:15 (Senokot) 17.2 mg Q12H PRN PO 11/11/16 13:15 (Dulcolax Supp) 10 mg DAILY PRN RECTAL 11/11/16 13:15 (Lactulose Liq) 30 ml DAILY PRN PO 11/11/16 13:15 Piperacillin Sod/ Tazobactam Sod 50 ml @ 100 mls/hr Q8H IV 11/11/16 22:00 11/12/16 05:58 (Dulcolax Ec) 10 mg HS PO 11/11/16 21:00 11/12/16 03:40 (Lexapro) 20 mg HS PO 11/11/16 21:00 11/12/16 03:39 (Neurontin) 200 mg DAILY PO 11/12/16 09:00 11/12/16 08:34 (LaMICtal) 200 mg HS PO 11/11/16 21:00 11/12/16 03:40 (Proamatine) 10 mg BID PO 11/11/16 21:00 11/12/16 08:33 (Remeron) 15 mg HS PO 11/11/16 21:00 11/12/16 03:39 (risperDAL) 0.75 mg Q12HR PO 11/11/16 21:00 11/12/16 03:40 (Flomax) 0.4 mg HS PO 11/11/16 21:00 11/12/16 03:39 (Pill Splitter) 1 ea UNSCH PRN OTHER 11/11/16 15:30 (Renvela) 2,400 mg TIDPC PO 11/11/16 18:30 (Desyrel) 150 mg HS PO 11/11/16 21:00 11/12/16 03:40 (D50w (Vial) Inj) 50 ml UNSCH PRN IV 11/11/16 16:30 (Glucagon Inj) 1 mg UNSCH PRN OTHER 11/11/16 16:30 Sodium Chloride 1,000 ml @ 0 mls/hr Q0M PRN OTHER 11/11/16 16:37 (Heparin Inj) 8,000 units UNSCH PRN IV FLUSH 11/11/16 16:45 Sodium Chloride 1,000 ml @ 200 mls/hr Q5H PRN IV 11/11/16 16:37 Sodium Chloride 1,000 ml @ 0 mls/hr Q0M PRN OTHER 11/11/16 16:37 (Mannitol Inj) 12.5 gm UNSCH PRN IV 11/11/16 16:45 (Albumin 25% Inj) 25 gm UNSCH PRN IV 11/11/16 16:45 (NS Flush) 5 ml UNSCH PRN IV FLUSH 11/11/16 16:45 (Zofran Inj) 4 mg UNSCH PRN IV PUSH 11/11/16 16:45 (Tylenol) 650 mg UNSCH PRN PO 11/11/16 16:45 UNV (Benadryl) 25 mg UNSCH PRN PO 11/11/16 16:45 (Nitrostat Sl) 0.4 mg UNSCH PRN SL 11/11/16 16:45 (Catapres) 0.1 mg UNSCH PRN PO 11/11/16 16:45 (Epogen Inj) 4,000 units UNSCH PRN IV 11/11/16 16:45 (Gelfoam 12 Mm/7 Mm Top) 1 foam UNSCH PRN TOP 11/11/16 16:45 Norepinephrine Bitartrate 4 mg/ Sodium Chloride 250 ml @ 7.5 mls/hr TITRATE PRN IV 11/11/16 19:15 11/12/16 04:23 (Brethine Inj) 1 mg UNSCH PRN SQ 11/11/16 19:15 Vasopressin 40 units/Dextrose 100 ml @ 6 mls/hr [id number] IV 11/11/16 19:09 11/12/16 03:38 Phenylephrine HCl 160 mg/Dextrose 500 ml @ 7.5 mls/hr TITRATE PRN IV 11/11/16 19:15 11/12/16 03:36 (Duoneb Neb) 1 ampule Q4HR NEB NEB 11/11/16 20:00 11/12/16 07:56 (Albuterol Neb) 2.5 mg Q2HR NEB PRN NEB 11/11/16 19:15 (NovoLOG SUPPLEMENTAL SCALE) 1 Q4HR SQ 11/11/16 20:00 11/12/16 08:35 Pharmacy Profile Note 0 ml @ 0 mls/hr UNSCH OTHER 11/11/16 19:15 (Pepcid Inj) 10 mg Q12H IV PUSH 11/11/16 21:00 11/12/16 08:34 Sodium Chloride 1,000 ml @ 84 mls/hr [id number] IV 11/11/16 19:15 (NS Flush) 2 ml UNSCH PRN IV FLUSH 11/11/16 19:15 (NS Flush) 2 ml BID IV FLUSH 11/11/16 21:00 11/12/16 08:34 (Tears Naturale Opth Soln) 1 drop TID EACH EYE 11/12/16 09:00 (Zofran Inj) 4 mg Q6H PRN IV PUSH 11/11/16 19:15 Miscellaneous Information 1 [id number] XX 11/11/16 19:15 11/11/16 19:15 (Chlorhexidine 2% Cloth) 3 pack Taper DAILY@04 TOP 11/12/16 04:00 11/08/17 03:59 (Chlorhexidine 2% Cloth) 3 pack UNSCH PRN TOP 11/11/16 19:15 (Peridex 0.12% Liq) 15 ml BID@08,20 MT 11/11/16 20:00 11/12/16 08:34 Propofol 100 ml @ 2.46 mls/hr TITRATE PRN IV 11/11/16 19:15 11/12/16 04:23 Midazolam HCl 100 ml @ 2 mls/hr TITRATE PRN IV 11/11/16 19:15 11/12/16 03:35 Sodium Chloride 1,000 ml @ 100 mls/hr Q10H IV 11/11/16 20:45 11/12/16 03:35 Azithromycin 500 mg/Sodium Chloride 250 ml @ 250 mls/hr Q24H IV 11/11/16 22:00 11/12/16 04:02 Family History No family history of heart disease, cancer, Alzheimer's or Parkinson's. Substance Use Tobacco: Never smoked. Alcohol:None. Prescription med abuse: None. Illicits: None. . Psychosocial History . [facility] . Spiritual/Cultural Factors Religion ozzy. . Living Will: Never completed Health Care Surrogate: Copy in medical record Durable Power of Casting Assistant: Never completed Health Care Surrogate(s): Designation of health care names Belle White as primary HCS and Tico Sharpe as alternate HCS. . Today's verbally stated goals: Patient incapacitated. . Family/friends goals: Spoke with daughterBelle via phone. Desires continued aggressive care for now short of Intubation and ACLS code status. Family meeting arranged 4tuesday11/15/16. Ethical and Legal Issues Patient is currently incapacitated, uncertain if he will regain capacity. Designation of health care names Belle White as primary HCS and Trecherelle Sharpe as alternate HCS. . Physical Exam Vital Signs Date Time Temp Pulse Resp B/P (MAP) Pulse Ox O2 Delivery O2 Flow Rate FiO2 11/12/16 07:57 100 35 11/12/16 06:00 78 11/12/16 06:00 78 18 100/57 (71) 100 11/12/16 05:00 81 18 92/55 (67) 100 11/12/16 04:23 81 102/57 11/12/16 04:11 100 50 11/12/16 04:00 78 11/12/16 04:00 98.3 78 18 104/56 (72) 100 11/12/16 04:00 50 11/12/16 03:38 77 100/55 11/12/16 03:37 77 100/55 11/12/16 03:36 77 100/55 11/12/16 03:00 75 18 97/56 (70) 100 11/12/16 02:00 86 18 110/56 (74) 100 11/12/16 02:00 86 11/12/16 01:00 78 18 97/54 (68) 100 11/12/16 00:00 99.4 80 18 90/53 (65) 100 11/12/16 00:00 80 11/12/16 00:00 60 11/11/16 23:15 87 20 99/55 (70) 100 11/11/16 23:00 90 18 99/54 (69) 100 11/11/16 22:45 90 20 96/52 (67) 100 11/11/16 22:30 90 19 99/51 (67) 100 11/11/16 22:15 91 18 100 11/11/16 22:00 91 11/11/16 22:00 91 18 92/58 (69) 100 11/11/16 21:00 92 20 114/62 (79) 100 11/11/16 20:05 100 11/11/16 20:05 100 80 11/11/16 20:00 93 24 93/50 (64) 100 11/11/16 20:00 93 11/11/16 19:18 94 11/11/16 19:15 93 11/11/16 19:00 93 11/11/16 19:00 93 28 80/44 (56) 100 11/11/16 18:52 93 11/11/16 18:50 93 11/11/16 18:46 96 11/11/16 18:45 96 11/11/16 18:40 93 11/11/16 18:30 96 11/11/16 18:24 97 11/11/16 18:21 97 11/11/16 18:15 100 11/11/16 18:03 101 11/11/16 18:00 101 28 72/41 (51) 89 11/11/16 18:00 101 11/11/16 17:45 97 11/11/16 17:36 97 11/11/16 17:30 97 11/11/16 17:15 100 11/11/16 17:00 101 21 85/55 (65) 98 11/11/16 17:00 101 11/11/16 16:30 100 11/11/16 16:30 98.3 102 28 84/46 (59) 100 11/11/16 16:24 11/11/16 16:20 98 100 11/11/16 15:24 98 BiPAP 50 11/11/16 15:13 107 40 104/54 (71) 95 BiPAP 50 11/11/16 14:58 95 50 11/11/16 13:53 97 Non-Rebreather 15.00 11/11/16 13:37 98 24 89/51 (64) 98 Non-Rebreather 13.00 11/11/16 10:40 (71) 100 Non-Rebreather 13.00 11/11/16 10:16 114 20 100 Non-Rebreather 13.00 11/11/16 10:16 98.1 114 24 94/59 (71) 100 Non-Rebreather 13.00 11/11/16 10:07 99 Nasal Cannula 3.00 11/11/16 10:07 98.4 117 24 94/59 (71) 91 Exam CONSTITUTIONAL/GENERAL: This is a chronically, ill, critically ill patient, sedated on mech vent. TUBES/LINES/DRAINS: ETT, OG, PIV right wrist and FA, femoral central line, left lower extremity AV fistula +thrill. SKIN: Dressing in place left LE, Ecchymoses on upper extremities. Skin temperature appropriate. Not diaphoretic. HEAD: Atraumatic. Normocephalic. EYES: Pupils equal 3mm. No scleral icterus. No injection or drainage. ENT: Unable to assess hearing. Nose without bleeding or purulent drainage. Throat difficult to visualize due to tubes. NECK: Trachea midline. CARDIOVASCULAR: Regular rate and rhythm without murmurs, gallops, or rubs. No JVD. RESPIRATORY/CHEST: course breath sounds bilaterally right greater than left. GASTROINTESTINAL: Abdomen soft, nondistended. No guarding. Bowel sounds hypoactive. GENITOURINARY: Without palpable bladder distension. MUSCULOSKELETAL: bilateral hammer toes. Left lower extremity AV fistula. Trace peripheral edema. Left upper and lower extremity contractures. LYMPHATICS: No palpable cervical or supraclavicular adenopathy. NEUROLOGICAL: sedated, intubated. Withdraws to painful stimuli right upper and lower extremities. PSYCHIATRIC: sedated. . Diagnostic Tests Laboratory Laboratory Tests Test 11/11/16 10:30 11/11/16 10:58 11/11/16 11:15 11/11/16 13:35 White Blood Count 12.7 TH/MM3 (4.0-11.0) Red Blood Count 3.86 MIL/MM3 (4.50-5.90) Hemoglobin 11.3 GM/DL (13.0-17.0) Hematocrit 36.0 % (39.0-51.0) Mean Corpuscular Volume 93.2 FL (80.0-100.0) Mean Corpuscular Hemoglobin 29.3 PG (27.0-34.0) Mean Corpuscular Hemoglobin Concent 31.5 % (32.0-36.0) Red Cell Distribution Width 16.5 % (11.6-17.2) Platelet Count 259 TH/MM3 (150-450) Mean Platelet Volume 9.2 FL (7.0-11.0) Neutrophils (%) (Auto) 78.8 % (16.0-70.0) Lymphocytes (%) (Auto) 12.2 % (9.0-44.0) Monocytes (%) (Auto) 8.5 % (0.0-8.0) Eosinophils (%) (Auto) 0.2 % (0.0-4.0) Basophils (%) (Auto) 0.3 % (0.0-2.0) Neutrophils # (Auto) 10.0 TH/MM3 (1.8-7.7) Lymphocytes # (Auto) 1.6 TH/MM3 (1.0-4.8) Monocytes # (Auto) 1.1 TH/MM3 (0-0.9) Eosinophils # (Auto) 0.0 TH/MM3 (0-0.4) Basophils # (Auto) 0.0 TH/MM3 (0-0.2) CBC Comment AUTO DIFF Differential Total Cells Counted 100 Neutrophils % (Manual) 69 % (16-70) Band Neutrophils % 6 % (0-6) Lymphocytes % 9 % (9-44) Monocytes % 13 % (0-8) Eosinophils % 2 % (0-4) Neutrophils # (Manual) 9.7 TH/MM3 (1.8-7.7) Myelocytes 1 % (0-0) Differential Comment FINAL DIFF MANUAL Platelet Estimate NORMAL (NORMAL) Platelet Morphology Comment NORMAL (NORMAL) Blood Urea Nitrogen 46 MG/DL (7-18) Creatinine 5.39 MG/DL (0.60-1.30) Random Glucose 317 MG/DL (74-106) Total Protein 11.1 GM/DL (6.4-8.2) Albumin 4.0 GM/DL (3.4-5.0) Calcium Level 8.5 MG/DL (8.5-10.1) Alkaline Phosphatase 158 U/L (45-117) Aspartate Amino Transf (AST/SGOT) 22 U/L (15-37) Alanine Aminotransferase (ALT/SGPT) 23 U/L (12-78) Total Bilirubin 0.3 MG/DL (0.2-1.0) Sodium Level 129 MEQ/L (136-145) Potassium Level 4.0 MEQ/L (3.5-5.1) Chloride Level 93 MEQ/L (98-107) Carbon Dioxide Level 19.2 MEQ/L (21.0-32.0) Anion Gap 17 MEQ/L (5-15) Estimat Glomerular Filtration Rate 13 ML/MIN (>89) Total Creatine Kinase 226 U/L (39-308) Creatine Kinase MB 2.5 NG/ML (0.5-3.6) Troponin I LESS THAN 0.02 NG/ML B-Type Natriuretic Peptide 25 PG/ML (0-100) Blood Gas Puncture Site RT RADIAL Blood Gas Patient Temperature 98.6 Blood Gas HCO3 17 mmol/L (22-26) Blood Gas Base Excess -9.2 mmol/L (-2-2) Blood Gas Oxygen Saturation 96 % (90-100) Arterial Blood pH 7.22 (7.380-7.420) Arterial Blood Partial Pressure CO2 44 mmHg (38-42) Arterial Blood Partial Pressure O2 126 mmHG (61-120) Arterial Blood Oxygen Content 14.3 Vol % (12.0-20.0) Arterial Blood Carboxyhemoglobin 1.3 % (0-4) Arterial Blood Methemoglobin 0.4 % (0-2) Blood Gas Hemoglobin 10.4 G/DL (12.0-16.0) Oxygen Delivery Device Non-Rebreathing Mask Blood Gas Liter Flow 15 L/M Blood Gas Inspired Oxygen 100 % Prothrombin Time 11.4 SEC (9.8-11.6) Prothromb Time International Ratio 1.0 RATIO Activated Partial Thromboplast Time 25.0 SEC (24.3-30.1) Lactic Acid Level 6.8 mmol/L (0.4-2.0) Test 11/11/16 22:00 11/11/16 22:05 11/12/16 04:35 Nasal Screen MRSA (PCR) MRSA NOT DETECTED (NOT Blood Gas Puncture Site RT BRACHIAL Blood Gas Patient Temperature 98.6 Blood Gas HCO3 17 mmol/L (22-26) Blood Gas Base Excess -8.3 mmol/L (-2-2) Blood Gas Oxygen Saturation 95 % (90-100) Arterial Blood pH 7.28 (7.380-7.420) Arterial Blood Partial Pressure CO2 37 mmHg (38-42) Arterial Blood Partial Pressure O2 132 mmHg (61-120) Arterial Blood Oxygen Content 14.4 Vol % (12.0-20.0) Arterial Blood Carboxyhemoglobin 1.8 % (0-4) Arterial Blood Methemoglobin 1.1 % (0-2) Blood Gas Hemoglobin 10.5 G/DL (12.0-16.0) Oxygen Delivery Device VENTILATOR Blood Gas Ventilator Setting [id number] Blood Gas Inspired Oxygen 60 % White Blood Count 12.0 TH/MM3 (4.0-11.0) 13.8 TH/MM3 (4.0-11.0) Red Blood Count 3.44 MIL/MM3 (4.50-5.90) 3.17 MIL/MM3 (4.50-5.90) Hemoglobin 10.0 GM/DL (13.0-17.0) 9.1 GM/DL (13.0-17.0) Hematocrit 31.6 % (39.0-51.0) 28.9 % (39.0-51.0) Mean Corpuscular Volume 92.0 FL (80.0-100.0) 91.1 FL (80.0-100.0) Mean Corpuscular Hemoglobin 29.2 PG (27.0-34.0) 28.7 PG (27.0-34.0) Mean Corpuscular Hemoglobin Concent 31.7 % (32.0-36.0) 31.5 % (32.0-36.0) Red Cell Distribution Width 16.3 % (11.6-17.2) 16.1 % (11.6-17.2) Platelet Count 241 TH/MM3 (150-450) 225 TH/MM3 (150-450) Mean Platelet Volume 8.0 FL (7.0-11.0) 8.1 FL (7.0-11.0) Neutrophils (%) (Auto) 87.3 % (16.0-70.0) 82.5 % (16.0-70.0) Lymphocytes (%) (Auto) 2.9 % (9.0-44.0) 8.7 % (9.0-44.0) Monocytes (%) (Auto) 9.5 % (0.0-8.0) 8.6 % (0.0-8.0) Eosinophils (%) (Auto) 0.0 % (0.0-4.0) 0.0 % (0.0-4.0) Basophils (%) (Auto) 0.3 % (0.0-2.0) 0.2 % (0.0-2.0) Neutrophils # (Auto) 10.5 TH/MM3 (1.8-7.7) 11.4 TH/MM3 (1.8-7.7) Lymphocytes # (Auto) 0.4 TH/MM3 (1.0-4.8) 1.2 TH/MM3 (1.0-4.8) Monocytes # (Auto) 1.1 TH/MM3 (0-0.9) 1.2 TH/MM3 (0-0.9) Eosinophils # (Auto) 0.0 TH/MM3 (0-0.4) 0.0 TH/MM3 (0-0.4) Basophils # (Auto) 0.0 TH/MM3 (0-0.2) 0.0 TH/MM3 (0-0.2) CBC Comment DIFF FINAL AUTO DIFF Differential Comment FINAL DIFF MANUAL Prothrombin Time 11.0 SEC (9.8-11.6) Prothromb Time International Ratio 1.0 RATIO Activated Partial Thromboplast Time 30.1 SEC (24.3-30.1) Fibrinogen 460 mg/dL (227-377) Blood Urea Nitrogen 56 MG/DL (7-18) 57 MG/DL (7-18) Creatinine 6.68 MG/DL (0.60-1.30) 6.80 MG/DL (0.60-1.30) Random Glucose 330 MG/DL (74-106) 288 MG/DL (74-106) Total Protein 9.0 GM/DL (6.4-8.2) Albumin 3.4 GM/DL (3.4-5.0) Calcium Level 8.7 MG/DL (8.5-10.1) 8.8 MG/DL (8.5-10.1) Phosphorus Level 7.1 MG/DL (2.5-4.9) 6.4 MG/DL (2.5-4.9) Magnesium Level 2.2 MG/DL (1.5-2.5) 2.3 MG/DL (1.5-2.5) Alkaline Phosphatase 109 U/L (45-117) Aspartate Amino Transf (AST/SGOT) 17 U/L (15-37) Alanine Aminotransferase (ALT/SGPT) 19 U/L (12-78) Total Bilirubin 0.6 MG/DL (0.2-1.0) Direct Bilirubin 0.2 MG/DL (0.0-0.2) Sodium Level 122 MEQ/L (136-145) 127 MEQ/L (136-145) Potassium Level 5.7 MEQ/L (3.5-5.1) 5.5 MEQ/L (3.5-5.1) Chloride Level 87 MEQ/L (98-107) 93 MEQ/L (98-107) Carbon Dioxide Level 20.5 MEQ/L (21.0-32.0) 21.4 MEQ/L (21.0-32.0) Anion Gap 15 MEQ/L (5-15) 13 MEQ/L (5-15) Estimat Glomerular Filtration Rate 10 ML/MIN (>89) 10 ML/MIN (>89) Lactic Acid Level 5.9 mmol/L (0.4-2.0) 3.9 mmol/L (0.4-2.0) Indirect Bilirubin 0.4 MG/DL (0.0-0.8) Ammonia 32 MCMOL/L (11-32) Total Creatine Kinase 172 U/L (39-308) Amylase Level 182 U/L (25-115) Lipase 166 U/L (73-393) Thyroid Stimulating Hormone 3rd Gen 1.020 uIU/ML (0.358-3.740) Differential Total Cells Counted 100 Neutrophils % (Manual) 35 % (16-70) Band Neutrophils % 49 % (0-6) Lymphocytes % 9 % (9-44) Monocytes % 1 % (0-8) Neutrophils # (Manual) 12.4 TH/MM3 (1.8-7.7) Metamyelocytes 5 % (0-1) Myelocytes 1 % (0-0) Platelet Estimate NORMAL (NORMAL) Platelet Morphology Comment ENLARGED (NORMAL) Spherocytes OCC (NORMAL) Troponin I 0.09 NG/ML (0.02-0.05) Result Diagram: 11/12/16 0435 11/12/16 0435 Microbiology Microbiology Date/Time Source Procedure Growth Status 11/11/16 13:40 Blood Peripheral Aerobic Blood Culture Pending Received 11/11/16 13:40 Blood Peripheral Anaerobic Blood Culture Pending Received 11/11/16 13:30 Blood Peripheral Aerobic Blood Culture Pending Received 11/11/16 13:30 Blood Peripheral Anaerobic Blood Culture Pending Received 11/11/16 21:30 Sputum Endotracheal Gram Stain Pending Received 11/11/16 21:30 Sputum Endotracheal Sputum Culture Pending Received . Imaging Last Impressions Chest X-Ray 11/11/16 1017 Signed Impressions: Service Date/Time: October 10:20 - CONCLUSION: 1. Discoid atelectasis within the right lung base. 2. Degenerative changes and scoliosis of the thoracic spine. Damaso Sol MD Abdomen/Pelvis CT 11/11/16 0000 Signed Impressions: Service Date/Time: October 16:00 - CONCLUSION: Bilateral lower lobe infiltrates left greater than right. Atrophic kidneys without evidence of obstruction. Moderate-sized hiatal hernia. Ramon Jasso MD . Procedures * 11/11/16 intubated, central line placed Patient/Family Conference Present at Family Conference: Spoke with daughter/JERSON Maradiaga via telephone. Family Conference Time (mins): 25 Family Conference Location: Telephone Issues Discussed: * Palliative care role, purpose, approach * Additional medical, psychosocial, and spiritual history * Patients general health, functional status, and cognitive changes in the months leading up to the current hospitalization * Patient/family understanding of the current medical problems * Patient/family understanding of prognosis Family meeting arranged 11/15/16 at 4 PM. Email to daughter at [email or web address] per her request for reminder. She desires continued aggressive care short of alternate code at this time, wanting to give the patient a few days. Verbalizes family will struggle with decision for comfort, invited her to bring family to our meeting which she appreciates. Indicates she was considering hospice services for her father prior to admission. . Assessment and Plan Disease Oriented Problem List: (1) HCAP (healthcare-associated pneumonia) (2) CVA, old, hemiparesis (3) SIRS (systemic inflammatory response syndrome) (4) CAD (coronary artery disease) (5) End stage kidney disease (6) Aspiration into lower respiratory tract (7) Hemodialysis patient (8) Sepsis (9) Anemia Symptom Scale: (1) Pain 0-10 Scale: Unable to quantify (2) Dyspnea 0-10 Scale: Unable to quantify (3) Hypotension 0-10 Scale: Unable to quantify (4) Debility 0-10 Scale: Unable to quantify Pertinent Non-Medical Issues Psychosocial: . Spiritual: Religion ozzy. Legal: Patient is currently incapacitated, uncertain if he will regain capacity. Designation of health care names Belle White as primary HCS and Tico Sharpe as alternate HCS. Ethical issues impacting care: No known concerns at this time. . Important Contacts * Belle White, daughter/ primary HCS: [phone] * Tico Sharpe, alternate HCS: [phone] * David Peterson, brother: [phone] . Prognosis Overall prognosis poor in this patient with ongoing trajectory of decline, multiple comorbidities. Code Status: Alternative Code (ACLS and Intubation Only. ) Plan * Patient is currently incapacitated, uncertain if he will regain capacity. Designation of health care names Belle White as primary HCS and Tico Sharpe as alternate HCS. * Alternate Code: Intubation and ACLS only * Goals: Spoke with daughter, Belle via phone. Desires continued aggressive care for now short of Intubation and ACLS code status. Family meeting arranged Tuesday11/15/16. * SYMPTOMS: Pain: No obvious signs of pain on exam. 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 Dyspnea: on mech vent. Sedated with Diprivan and Versed. Hypotension: On multiple pressors (Howard, Vaso and Howard). No new medication recommendations at this time. * Palliative care will continue to follow to assist with symptom management and clarification of treatment goals as needed. . Thank you for the opportunity to participate in the care of Mr. Sharpe. Attestation To help prompt me to consider important information that might be impacting today's encounter and assessment, information from prior notes written by myself or my colleagues may have been "brought forward" into today's note. My signature on this note, however, is an attestation that I personally performed the exam, history, and/or decision-making noted today, and, unless otherwise indicated, the interactions with patient, family, and staff as well as the review of records all occurred today. I also attest that the listed assessment and stated plan reflect my best clinical judgment today based on the combination of historical information, prior notes, and today's exam/ interactions. When time spent is documented, it refers only to time spent today by the signer, or if indicated, combined time spent today by collaborating physician/nurse practitioner. Neelam Karimi Nov 12, 2016 08:46
--- NOTE | 2016-11-12 08:50 | HHI.CCPN ---
Subjective Remarks/Hospital Course 61-year-old AA male of admission 11/11/2016. Date of consultation 11/11/2016. Past medical history of ESRD on HD , , Tuesday , coronary artery disease S/P stent, right frontal CVA with left-sided weakness hypertension, diabetes, anemia chronic disease, schizophrenia/bipolar disorder, who presented to the ED after an episode of vomiting during the last phase of his dialysis on 11/11. Patient complains that towards the end of his dialysis today he started having abdominal pain but he did not vomit. Patient had significant respiratory distress upon arrival. At the time of this interview patient was on nonrebreather with [address] abdomen/pelvis revealed a hiatal hernia, atrophic kidneys and bilateral infiltrates likely from aspiration. White Blood cell count 12,000. Lactate was 6.8. Patient became acutely hypotensive on the floor requiring initiation of peripheral vasopressors. Due to his underlying respiratory failure, patient required emergent intubation due to acute hypoxemic respiratory failure due to aspiration with severe sepsis 11/12 Patient is sedated with Diprivan and Versed. Remains on 3 pressors ( Levophed down 11 mics, Nsoyn 90 mics, Vasopressin 0.04). Afebrile. Objective Vital Signs Date Time Temp Pulse Resp B/P (MAP) Pulse Ox O2 Delivery O2 Flow Rate FiO2 11/12/16 07:57 100 35 11/12/16 06:00 78 11/12/16 06:00 18 100/57 (71) 11/12/16 04:00 98.3 11/11/16 15:24 BiPAP 11/11/16 13:53 15.00 Intake and Output 11/12/16 11/12/16 11/13/16 08:00 16:00 00:00 Intake Total 3104 ml Balance 3104 ml Result Diagram: 11/12/16 0435 11/12/16 0435 Other Results Laboratory Tests Test 11/11/16 10:30 11/11/16 10:58 11/11/16 11:15 11/11/16 13:35 White Blood Count 12.7 TH/MM3 Red Blood Count 3.86 MIL/MM3 Hemoglobin 11.3 GM/DL Hematocrit 36.0 % Mean Corpuscular Volume 93.2 FL Mean Corpuscular Hemoglobin 29.3 PG Mean Corpuscular Hemoglobin Concent 31.5 % Red Cell Distribution Width 16.5 % Platelet Count 259 TH/MM3 Mean Platelet Volume 9.2 FL Neutrophils (%) (Auto) 78.8 % Lymphocytes (%) (Auto) 12.2 % Monocytes (%) (Auto) 8.5 % Eosinophils (%) (Auto) 0.2 % Basophils (%) (Auto) 0.3 % Neutrophils # (Auto) 10.0 TH/MM3 Lymphocytes # (Auto) 1.6 TH/MM3 Monocytes # (Auto) 1.1 TH/MM3 Eosinophils # (Auto) 0.0 TH/MM3 Basophils # (Auto) 0.0 TH/MM3 CBC Comment AUTO DIFF Differential Total Cells Counted 100 Neutrophils % (Manual) 69 % Band Neutrophils % 6 % Lymphocytes % 9 % Monocytes % 13 % Eosinophils % 2 % Neutrophils # (Manual) 9.7 TH/MM3 Myelocytes 1 % Differential Comment FINAL DIFF MANUAL Platelet Estimate NORMAL Platelet Morphology Comment NORMAL Blood Urea Nitrogen 46 MG/DL Creatinine 5.39 MG/DL Random Glucose 317 MG/DL Total Protein 11.1 GM/DL Albumin 4.0 GM/DL Calcium Level 8.5 MG/DL Alkaline Phosphatase 158 U/L Aspartate Amino Transf (AST/SGOT) 22 U/L Alanine Aminotransferase (ALT/SGPT) 23 U/L Total Bilirubin 0.3 MG/DL Sodium Level 129 MEQ/L Potassium Level 4.0 MEQ/L Chloride Level 93 MEQ/L Carbon Dioxide Level 19.2 MEQ/L Anion Gap 17 MEQ/L Estimat Glomerular Filtration Rate 13 ML/MIN Total Creatine Kinase 226 U/L Creatine Kinase MB 2.5 NG/ML Troponin I LESS THAN 0.02 NG/ML B-Type Natriuretic Peptide 25 PG/ML Blood Gas Puncture Site RT RADIAL Blood Gas Patient Temperature 98.6 Blood Gas HCO3 17 mmol/L Blood Gas Base Excess -9.2 mmol/L Blood Gas Oxygen Saturation 96 % Arterial Blood pH 7.22 Arterial Blood Partial Pressure CO2 44 mmHg Arterial Blood Partial Pressure O2 126 mmHG Arterial Blood Oxygen Content 14.3 Vol % Arterial Blood Carboxyhemoglobin 1.3 % Arterial Blood Methemoglobin 0.4 % Blood Gas Hemoglobin 10.4 G/DL Oxygen Delivery Device Non-Rebreathing Mask Blood Gas Liter Flow 15 L/M Blood Gas Inspired Oxygen 100 % Prothrombin Time 11.4 SEC Prothromb Time International Ratio 1.0 RATIO Activated Partial Thromboplast Time 25.0 SEC Lactic Acid Level 6.8 mmol/L Test 9/14/17 22:00 11/11/16 22:05 11/12/16 04:35 Nasal Screen MRSA (PCR) MRSA NOT DETECTED Blood Gas Puncture Site RT BRACHIAL Blood Gas Patient Temperature 98.6 Blood Gas HCO3 17 mmol/L Blood Gas Base Excess -8.3 mmol/L Blood Gas Oxygen Saturation 95 % Arterial Blood pH 7.28 Arterial Blood Partial Pressure CO2 37 mmHg Arterial Blood Partial Pressure O2 132 mmHg Arterial Blood Oxygen Content 14.4 Vol % Arterial Blood Carboxyhemoglobin 1.8 % Arterial Blood Methemoglobin 1.1 % Blood Gas Hemoglobin 10.5 G/DL Oxygen Delivery Device VENTILATOR Blood Gas Ventilator Setting [id number] Blood Gas Inspired Oxygen 60 % White Blood Count 12.0 TH/MM3 13.8 TH/MM3 Red Blood Count 3.44 MIL/MM3 3.17 MIL/MM3 Hemoglobin 10.0 GM/DL 9.1 GM/DL Hematocrit 31.6 % 28.9 % Mean Corpuscular Volume 92.0 FL 91.1 FL Mean Corpuscular Hemoglobin 29.2 PG 28.7 PG Mean Corpuscular Hemoglobin Concent 31.7 % 31.5 % Red Cell Distribution Width 16.3 % 16.1 % Platelet Count 241 TH/MM3 225 TH/MM3 Mean Platelet Volume 8.0 FL 8.1 FL Neutrophils (%) (Auto) 87.3 % 82.5 % Lymphocytes (%) (Auto) 2.9 % 8.7 % Monocytes (%) (Auto) 9.5 % 8.6 % Eosinophils (%) (Auto) 0.0 % 0.0 % Basophils (%) (Auto) 0.3 % 0.2 % Neutrophils # (Auto) 10.5 TH/MM3 11.4 TH/MM3 Lymphocytes # (Auto) 0.4 TH/MM3 1.2 TH/MM3 Monocytes # (Auto) 1.1 TH/MM3 1.2 TH/MM3 Eosinophils # (Auto) 0.0 TH/MM3 0.0 TH/MM3 Basophils # (Auto) 0.0 TH/MM3 0.0 TH/MM3 CBC Comment DIFF FINAL AUTO DIFF Differential Comment FINAL DIFF MANUAL Prothrombin Time 11.0 SEC Prothromb Time International Ratio 1.0 RATIO Activated Partial Thromboplast Time 30.1 SEC Fibrinogen 460 mg/dL Blood Urea Nitrogen 56 MG/DL 57 MG/DL Creatinine 6.68 MG/DL 6.80 MG/DL Random Glucose 330 MG/DL 288 MG/DL Total Protein 9.0 GM/DL Albumin 3.4 GM/DL Calcium Level 8.7 MG/DL 8.8 MG/DL Phosphorus Level 7.1 MG/DL 6.4 MG/DL Magnesium Level 2.2 MG/DL 2.3 MG/DL Alkaline Phosphatase 109 U/L Aspartate Amino Transf (AST/SGOT) 17 U/L Alanine Aminotransferase (ALT/SGPT) 19 U/L Total Bilirubin 0.6 MG/DL Direct Bilirubin 0.2 MG/DL Sodium Level 122 MEQ/L 127 MEQ/L Potassium Level 5.7 MEQ/L 5.5 MEQ/L Chloride Level 87 MEQ/L 93 MEQ/L Carbon Dioxide Level 20.5 MEQ/L 21.4 MEQ/L Anion Gap 15 MEQ/L 13 MEQ/L Estimat Glomerular Filtration Rate 10 ML/MIN 10 ML/MIN Lactic Acid Level 5.9 mmol/L 3.9 mmol/L Indirect Bilirubin 0.4 MG/DL Ammonia 32 MCMOL/L Total Creatine Kinase 172 U/L Amylase Level 182 U/L Lipase 166 U/L Thyroid Stimulating Hormone 3rd Gen 1.020 uIU/ML Differential Total Cells Counted 100 Neutrophils % (Manual) 35 % Band Neutrophils % 49 % Lymphocytes % 9 % Monocytes % 1 % Neutrophils # (Manual) 12.4 TH/MM3 Metamyelocytes 5 % Myelocytes 1 % Platelet Estimate NORMAL Platelet Morphology Comment ENLARGED Spherocytes OCC Troponin I 0.09 NG/ML Imaging Last Impressions Chest X-Ray 11/11/16 1017 Signed Impressions: Service Date/Time: October 10:20 - CONCLUSION: 1. Discoid atelectasis within the right lung base. 2. Degenerative changes and scoliosis of the thoracic spine. Damaso Sol MD Abdomen/Pelvis CT 11/11/16 0000 Signed Impressions: Service Date/Time: October 16:00 - CONCLUSION: Bilateral lower lobe infiltrates left greater than right. Atrophic kidneys without evidence of obstruction. Moderate-sized hiatal hernia. Ramon Jasso MD Objective Remarks GENERAL: 61-year-old male, critically critically ill intubated, sedated and on multiple pressors. SKIN: Warm and dry. No rash HEAD: Atraumatic. Normocephalic. EYES: Pupils fixed about 3 mm. Right pupil is reactive about 3 mm to 2 mm. ENT: No nasal bleeding or discharge. Mucous membranes pink and moist. NECK: Trachea midline. No JVD. CARDIOVASCULAR: Regular rate and rhythm. S1, S2. No S4 without murmur RESPIRATORY: Coarse crackles appreciated bilaterally right greater than left. No wheeze.. GASTROINTESTINAL: Abdomen debridement, and tender with hypo-bowel sounds appreciated. MUSCULOSKELETAL: Left lower extremity with AV fistula/palpable thrill. Minimal peripheral edema. Bilateral hammertoes. Left upper and lower extremity contracted from prior stroke. NEUROLOGICAL: Sedated, intubated. Withdrawing to right upper and lower extremity. Nonfocal. Known deficits to left upper and lower extremity. A/P Assessment and Plan Neuro/Psych: Bipolar disorder Paranoid schizophrenia Depression Left eye blindness Insomnia Chronic narcotic use On propofol/midazolam drips for sedation while intubated Goal of RA SS -2 Daily sedation vacation Patient is on mirtazapine 15 mg at night for depression. Patient is on Risperidone 0.75 mg every 12 hours Patient is on trazodone 150 mill grams at night for anxiety/depression Patient is on escitalopram oxalate 20 mg at night for depression Patient is on lamotrigine 200 mg at night for psychosis Patient is on gabapentin 200 mg daily for peripheral neuropathy Holding zolpidem tartrate 5 mg at night when necessary insomnia Patient is on hydrocodone/acetaminophen 10/325 one tab every 8 hours. 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 Noted acetaminophen allergy above however patient is on this medication along with acetaminophen as needed CV: Severe sepsis Lactic acidosis History of chronic diastolic heart failure Hypertension Dyslipidemia Coronary disease status post stent placement Peripheral vascular disease Continue to wean down pressors ( On levophed 11 micss, Neosyn 90 mics, Vasopressin 0.04) Source of sepsis likely aspiration pneumonia. CT abdomen/pelvis revealed no acute abdominal findings Serial lactates monitoring ( trending down) 3.9 this morning. Continue midodrine 10 mg by mouth twice a day Resp: Acute hypoxemic respiratory failure secondary to aspiration PRVC 18/500/03/04/50. Decrease FIO2 40% Ventilator bundle Albuterol/ipratropium aerosols every 4 hours with albuterol nebs every 2 hours. Spontaneous breathing trials when hemodynamically stable. GI: Gastroesophageal reflux disease history of esophagitis History of colonic polyps Hiatal hernia Patient is on omeprazole 20 mg daily for gastroesophageal reflux disease at home. Currently on famotidine 10 mg IV twice a day NG tube to low intermittent water suction Docusate sodium/Senokot for bowel regimen : BPH Mann catheter not indicated. 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 Kelley Left AV left AV Fistula/femoral with positive thrill Cr: 6.8 Continue Sevelamir 2.4 g 3 times a day for hyperphosphatemia Heme: Anemia of chronic kidney disease Leukocytosis Monitor CBC daily. Follow trends No indication for transfusion of blood proximal at this time ID: Severe sepsis 11/11 Blood cultures 2 and sputum- NGTD Continue abx( piperacillin/tazobactam, vancomycin and azithromycin) monitor for signs of infections ( Fever, WBC) Check strep pneumonia and Legionella urinary Ag MSK: Chronic contractures left upper and lower extremities [facility] Physical therapy evaluate and treat Access - Utilize peripheral IV. Right femoral central line 11/11 Prophylaxis - GI - famotidine - DVT - SCD/heparin Critical Care: The total critical care time was 30 minutes. Time to perform other separately billable procedures was not included in the critical care time. Per Dr. Dunlap- Patient will now be alternate code, intubation and ACLS drugs only. No chest compressions/no shocks. Palliative care will be involved. She wishes only 3 days and will withdraw no significant improvement. Kelin Franklin MD Nov 12, 2016 08:50
[2016-11-12] MEDS ORDERED: NON-FORMULARY DRUG (Omeprazole 20 MG) PO SCH (09:00)
[2016-11-12] MEDS: ARTIFICIAL TEARS OPTH SOLN 15 ML BTL EACH EYE SCH ×2 (09:00→17:55)
[2016-11-12] MEDS ORDERED: PANTOPRAZOLE SOD 20 MG DELAYED RELEASE TAB PO SCH (09:00)
[2016-11-12] MEDS ORDERED: Vancomycin Consult Pharmacy 1 EA OTHER SCH (09:00)
--- NOTE | 2016-11-12 12:56 | HHI.NPPN ---
Subjective History of Present Illness 61 year old with CVA Aspiration Pneumonia, Respiratory failure Intubated Objective Data Data 11/12/16 11/13/16 19:00 07:00 Intake Total 28 ml Balance 28 ml IV Total 28 ml Vital Signs Date Time Temp Pulse Resp B/P (MAP) Pulse Ox O2 Delivery O2 Flow Rate FiO2 11/12/16 11:43 100 35 11/12/16 11:02 73 114/71 11/12/16 11:02 73 114/71 11/12/16 10:59 73 115/70 11/12/16 10:13 74 114/66 11/12/16 10:12 74 114/66 11/12/16 08:00 35 11/12/16 08:00 75 11/12/16 07:57 100 35 11/12/16 06:00 78 11/12/16 06:00 78 18 100/57 (71) 100 11/12/16 05:00 81 18 92/55 (67) 100 11/12/16 04:23 81 102/57 11/12/16 04:11 100 50 11/12/16 04:00 78 11/12/16 04:00 98.3 78 18 104/56 (72) 100 11/12/16 04:00 50 11/12/16 03:38 77 100/55 11/12/16 03:37 77 100/55 11/12/16 03:36 77 100/55 11/12/16 03:00 75 18 97/56 (70) 100 11/12/16 02:00 86 18 110/56 (74) 100 11/12/16 02:00 86 11/12/16 01:00 78 18 97/54 (68) 100 11/12/16 00:00 99.4 80 18 90/53 (65) 100 11/12/16 00:00 80 11/12/16 00:00 60 11/11/16 23:15 87 20 99/55 (70) 100 11/11/16 23:00 90 18 99/54 (69) 100 11/11/16 22:45 90 20 96/52 (67) 100 11/11/16 22:30 90 19 99/51 (67) 100 11/11/16 22:15 91 18 100 11/11/16 22:00 91 11/11/16 22:00 91 18 92/58 (69) 100 11/11/16 21:00 92 20 114/62 (79) 100 11/11/16 20:05 100 11/11/16 20:05 100 80 11/11/16 20:00 93 24 93/50 (64) 100 11/11/16 20:00 93 11/11/16 19:18 94 11/11/16 19:15 93 11/11/16 19:00 93 11/11/16 19:00 93 28 80/44 (56) 100 11/11/16 18:52 93 11/11/16 18:50 93 11/11/16 18:46 96 11/11/16 18:45 96 11/11/16 18:40 93 11/11/16 18:30 96 11/11/16 18:24 97 11/11/16 18:21 97 11/11/16 18:15 100 11/11/16 18:03 101 11/11/16 18:00 101 28 72/41 (51) 89 11/11/16 18:00 101 11/11/16 17:45 97 11/11/16 17:36 97 11/11/16 17:30 97 11/11/16 17:15 100 11/11/16 17:00 101 21 85/55 (65) 98 11/11/16 17:00 101 11/11/16 16:30 100 11/11/16 16:30 98.3 102 28 84/46 (59) 100 11/11/16 16:24 11/11/16 16:20 98 100 11/11/16 15:24 98 BiPAP 50 11/11/16 15:13 107 40 104/54 (71) 95 BiPAP 50 11/11/16 14:58 95 50 11/11/16 13:53 97 Non-Rebreather 15.00 11/11/16 13:37 98 24 89/51 (64) 98 Non-Rebreather 13.00 -: 11/12/16 0435 11/12/16 0435 Microbiology 11/11/16 Aerobic Blood Culture - Preliminary, Resulted NO GROWTH IN 1 DAY 11/11/16 Anaerobic Blood Culture - Preliminary, Resulted NO GROWTH IN 1 DAY 11/11/16 Aerobic Blood Culture - Preliminary, Resulted NO GROWTH IN 1 DAY 11/11/16 Anaerobic Blood Culture - Preliminary, Resulted NO GROWTH IN 1 DAY 11/11/16 Gram Stain - Final, Resulted 11/11/16 Sputum Culture, Resulted Pending Physical Exam General Appearance: Well Developed Neck Neck Exam: Neck Supple Pulmonary Resp Exam: Decreased Bases Cardiology CV Exam: Regular Gastrointestinal/Abdomen GI Exam: Soft, Non-Tender Extremeties Extremities Exam: No Edema Assessment/Plan Problem List: (1) End stage kidney disease ICD Codes: N18.6 - End stage kidney disease Status: Acute Plan: he will get a treatment today then TTS schedule for dialysis Na low BP low on vasopressors (2) CAD (coronary artery disease) ICD Codes: I25.10 - CAD (coronary artery disease) Status: Acute Plan: Continue to monitor (3) Congestive heart failure (CHF) ICD Codes: I50.9 - Congestive heart failure (CHF) Status: Acute Plan: monitor and will need hemodialysis in am (4) Aspiration into lower respiratory tract ICD Codes: T17.800A - Unspecified foreign body in other parts of respiratory tract causing asphyxiation, initial encounter Status: Acute Plan: Continue to monitor Manish Kelley MD Nov 12, 2016 12:56
[2016-11-12] MEDS: GELATIN 12 MM/7 MM FOAM TOP PRN (14:15)
[2016-11-12] MEDS: SODIUM CHLOR 0.9% 1000 ML INJ 1,000 ML OTHER PRN (14:15)
[2016-11-12] MEDS: ALBUMIN HUMAN 25% 25 GM/100 ML BAGP IV PRN (14:15)
--- NOTE | 2016-11-12 15:56 | ECHRPT ---
Indication: EF assessment of CHF CONCLUSIONS The left ventricular systolic function is normal with an estimated ejection fraction in the range of 60-65%. Trace mitral valve regurgitation. There is mild tricuspid valve regurgitation. Trivial pulmonary valve regurgitation. BP: 100 / 57 HR: 78 Rhythm: Sinus MEASUREMENTS (Male / Female) Normal Values Technical Quality:Fair 2D ECHO LV Diastolic Diameter PLAX 5.0 cm 4.2 - 5.9 / 3.9 - 5.3 cm LV Systolic Diameter PLAX 3.0 cm IVS Diastolic Thickness 0.8 cm 0.6 - 1.0 / 0.6 - 0.9 cm LVPW Diastolic Thickness 0.8 cm 0.6 - 1.0 / 0.6 - 0.9 cm LV Relative Wall Thickness 0.3 LVOT Diameter 2.1 cm Aortic Root Diameter 3.0 cm LA Systolic Diameter LX 3.0 cm 3.0 - 4.0 / 2.7 - 3.8 cm M-MODE AV Cusp Separation MM 2.1 cm DOPPLER AV Peak Velocity 119.0 cm/s AV Peak Gradient 5.7 mmHg AV Mean Gradient 3.0 mmHg AV Velocity Time Integral 17.0 cm LVOT Peak Velocity 77.5 cm/s LVOT Peak Gradient 2.4 mmHg LVOT Velocity Time Integral 11.3 cm LVOT Cardiac Index 1607.5 cm/minm AV Area Cont Eq vti 2.3 cm AV Area Cont Eq pk 2.3 cm Mitral E Point Velocity 105.5 cm/s Mitral A Point Velocity 65.2 cm/s Mitral E to A Ratio 1.6 LV E' Lateral Velocity 10.4 cm/s Mitral E to LV E' Lateral Ratio 10.1 LV E' Septal Velocity 6.8 cm/s Mitral E to LV E' Septal Ratio 15.5 TR Peak Velocity 326.0 cm/s TR Peak Gradient 42.5 mmHg PV Peak Velocity 64.7 cm/s PV Peak Gradient 1.7 mmHg FINDINGS LEFT VENTRICLE Normal left ventricular size. Wall thickness is normal. Left ventricular diastolic function parameters are normal. The left ventricular systolic function is normal with an estimated ejection fraction in the range of 60-65%. RIGHT VENTRICLE Normal right ventricular size and systolic function. LEFT ATRIUM The left atrial size is normal. RIGHT ATRIUM The right atrial size is normal. ATRIAL SEPTUM No atrial level shunt is demonstrated by color flow Doppler interrogation. AORTA The aortic root and proximal ascending aorta are normal in size on limited imaging. MITRAL VALVE Structurally normal mitral valve. Trace mitral valve regurgitation. No mitral valve stenosis. AORTIC VALVE Trileaflet aortic valve. No aortic valve stenosis or regurgitation. TRICUSPID VALVE Structurally normal tricuspid valve. There is mild tricuspid valve regurgitation. There is estimated moderate pulmonary hypertension present (range 50-60 mmHg). PULMONARY VALVE The pulmonary valve is not well visualized. Trivial pulmonary valve regurgitation. VESSELS The inferior vena cava was not well visualized. PERICARDIUM No pericardial effusion. Jaime Stroud DO (Electronically Signed) Final Date:12 November 2016 15:55
[2016-11-12] MEDS: SEVELAMER CARBONATE 800 MG TAB PO SCH (18:00)
[2016-11-13] VITALS (18 sets, daily range): BP systolic 83–104; BP diastolic 51–67; PULSE 69–86; RESP 18–22; TEMP 97.6–98.7; O2SAT 100
[2016-11-13] MEDS: RESP: ALBUTEROL 2.5 MG/IPRATROPIUM 0.5 MG NEB (SCH) NEB ×6 (00:22→21:11)
[2016-11-13] MEDS: HEPARIN SODIUM - SQ 10,000 UNITS/ML VIAL SQ SCH ×3 (02:59→14:00)
[2016-11-13] MEDS: INSULIN ASPART SUPPLEMENTAL SCALE SQ SCH ×6 (04:00→20:00)
[2016-11-13] MEDS: CHLORHEXIDINE GLUCONATE 2 % 1 PACK (2 CLOTHS) TOP SCH (04:00)
[2016-11-13] MEDS: PIPERACIL-TAZO 2.25 GM PREMIX 50 ML IV SCH ×3 (06:17→21:34)
[2016-11-13] MEDS: PROPOFOL 1000 MG/100 ML INJ 100 ML IV PRN (06:17)
[2016-11-13] MEDS: VASOPRESSIN INJ 40 UNITS in DEXTROSE 5% IN WATER 100ML INJ 98 ML IV SCH ×2 (06:18)
[2016-11-13 06:37] LABS: AUTOMATED NEUTROPHIL # 8.4 TH/MM3 (1.8-7.7); BASOPHIL % 0.3 % (0.0-2.0); EOSINOPHIL # 0.1 TH/MM3 (0-0.4); EOSINOPHIL % 0.7 % (0.0-4.0); HEMATOCRIT 22.3 % (39.0-51.0); HEMO FLAGS DIFF FINAL; LYMPHOCYTE # 0.8 TH/MM3 (1.0-4.8); MEAN CELL VOLUME 89.5 FL (80.0-100.0); MEAN CORPUSCULAR HEMOGLOBIN 29.5 PG (27.0-34.0); MEAN CORPUSCULAR HGB CONC 32.9 % (32.0-36.0); MONO % 8.5 % (0.0-8.0); NEUT % 82.5 % (16.0-70.0); PLATELET COUNT 173 TH/MM3 (150-450); RED BLOOD COUNT 2.49 MIL/MM3 (4.50-5.90); RED CELL DISTRIBUTION WIDTH 15.9 % (11.6-17.2); WHITE BLOOD COUNT 10.2 TH/MM3 (4.0-11.0)
[2016-11-13 07:06] LABS: BICARBONATE 23.5 MEQ/L (21.0-32.0); POTASSIUM 3.9 MEQ/L (3.5-5.1)
[2016-11-13] MEDS: SODIUM CHLORIDE 0.9% FLUSH 10 ML FLUSH IV FLUSH SCH ×2 (08:40→21:35)
[2016-11-13] MEDS: MIDODRINE 5 MG TAB PO SCH ×2 (08:40→21:36)
[2016-11-13] MEDS: DOCUSATE SODIUM 50 MG/SENNA 8.6 MG TAB PO SCH ×2 (08:40→21:36)
[2016-11-13] MEDS: SEVELAMER CARBONATE 800 MG TAB PO SCH ×3 (08:40→17:40)
[2016-11-13] MEDS: ARTIFICIAL TEARS OPTH SOLN 15 ML BTL EACH EYE SCH ×3 (08:40→17:40)
[2016-11-13] MEDS: FAMOTIDINE 20 MG/2 ML VIAL IV PUSH SCH ×2 (08:41→21:36)
[2016-11-13] MEDS: risperiDONE 0.5 MG TAB PO SCH ×2 (08:41→21:35)
[2016-11-13] MEDS: GABAPENTIN 100 MG CAP PO SCH (08:41)
[2016-11-13] MEDS: CHLORHEXIDINE 0.12% (ORAL KIT) 15 ML CUP MT SCH ×2 (08:41→21:37)
--- NOTE | 2016-11-13 08:54 | HHI.CCPN ---
Subjective Remarks/Hospital Course 61-year-old AA male of admission 11/11/2016. Date of consultation 11/11/2016. Past medical history of ESRD on HD , , Tuesday , coronary artery disease S/P stent, right frontal CVA with left-sided weakness hypertension, diabetes, anemia chronic disease, schizophrenia/bipolar disorder, who presented to the ED after an episode of vomiting during the last phase of his dialysis on 11/11. Patient complains that towards the end of his dialysis today he started having abdominal pain but he did not vomit. Patient had significant respiratory distress upon arrival. At the time of this interview patient was on nonrebreather with [address] abdomen/pelvis revealed a hiatal hernia, atrophic kidneys and bilateral infiltrates likely from aspiration. White Blood cell count 12,000. Lactate was 6.8. Patient became acutely hypotensive on the floor requiring initiation of peripheral vasopressors. Due to his underlying respiratory failure, patient required emergent intubation due to acute hypoxemic respiratory failure due to aspiration with severe sepsis 11/12 Patient is sedated with Diprivan and Versed. Remains on 3 pressors ( Levophed down 11 mics, Nsoyn 90 mics, Vasopressin 0.04). Afebrile. 11/13 Patient remains intubated with Diprivan and sedated. Off Levophed and Versed. Neosyn down 50 mics and on Vasopressin. Objective Vital Signs Date Time Temp Pulse Resp B/P (MAP) Pulse Ox O2 Delivery O2 Flow Rate FiO2 11/13/16 08:08 100 35 11/13/16 06:00 80 11/13/16 04:15 90/66 11/13/16 04:00 98.7 18 11/11/16 15:24 BiPAP 11/11/16 13:53 15.00 Intake and Output 11/13/16 11/13/16 11/14/16 08:00 16:00 00:00 Intake Total 1690 ml Output Total 0 ml Balance 1690 ml Result Diagram: 11/13/16 0615 11/13/16 0615 Other Results Laboratory Tests Test 11/12/16 14:19 11/13/16 06:15 Lactic Acid Level 1.8 mmol/L White Blood Count 10.2 TH/MM3 Red Blood Count 2.49 MIL/MM3 Hemoglobin 7.3 GM/DL Hematocrit 22.3 % Mean Corpuscular Volume 89.5 FL Mean Corpuscular Hemoglobin 29.5 PG Mean Corpuscular Hemoglobin Concent 32.9 % Red Cell Distribution Width 15.9 % Platelet Count 173 TH/MM3 Mean Platelet Volume 8.0 FL Neutrophils (%) (Auto) 82.5 % Lymphocytes (%) (Auto) 8.0 % Monocytes (%) (Auto) 8.5 % Eosinophils (%) (Auto) 0.7 % Basophils (%) (Auto) 0.3 % Neutrophils # (Auto) 8.4 TH/MM3 Lymphocytes # (Auto) 0.8 TH/MM3 Monocytes # (Auto) 0.9 TH/MM3 Eosinophils # (Auto) 0.1 TH/MM3 Basophils # (Auto) 0.0 TH/MM3 CBC Comment DIFF FINAL Differential Comment Blood Urea Nitrogen 42 MG/DL Creatinine 5.38 MG/DL Random Glucose 210 MG/DL Calcium Level 8.8 MG/DL Sodium Level 133 MEQ/L Potassium Level 3.9 MEQ/L Chloride Level 95 MEQ/L Carbon Dioxide Level 23.5 MEQ/L Anion Gap 15 MEQ/L Estimat Glomerular Filtration Rate 13 ML/MIN Imaging Last Impressions Chest X-Ray 11/11/16 1017 Signed Impressions: Service Date/Time: October 10:20 - CONCLUSION: 1. Discoid atelectasis within the right lung base. 2. Degenerative changes and scoliosis of the thoracic spine. Damaso Sol MD Abdomen/Pelvis CT 11/11/16 0000 Signed Impressions: Service Date/Time: October 16:00 - CONCLUSION: Bilateral lower lobe infiltrates left greater than right. Atrophic kidneys without evidence of obstruction. Moderate-sized hiatal hernia. Ramon Jasso MD Objective Remarks GENERAL: 61-year-old male, critically critically ill intubated, sedated and on multiple pressors. SKIN: Warm and dry. No rash HEAD: Atraumatic. Normocephalic. EYES: Pupils fixed about 3 mm. Right pupil is reactive about 3 mm to 2 mm. ENT: No nasal bleeding or discharge. Mucous membranes pink and moist. NECK: Trachea midline. No JVD. CARDIOVASCULAR: Regular rate and rhythm. S1, S2. No S4 without murmur RESPIRATORY: Coarse crackles appreciated bilaterally right greater than left. No wheeze.. GASTROINTESTINAL: Abdomen debridement, and tender with hypo-bowel sounds appreciated. MUSCULOSKELETAL: Left lower extremity with AV fistula/palpable thrill. Minimal peripheral edema. Bilateral hammertoes. Left upper and lower extremity contracted from prior stroke. NEUROLOGICAL: Sedated, intubated. Withdrawing to right upper and lower extremity. Nonfocal. Known deficits to left upper and lower extremity. A/P Assessment and Plan Neuro/Psych: Bipolar disorder Paranoid schizophrenia Depression Left eye blindness Insomnia Chronic narcotic use On propofol for sedation while intubated Goal of RA SS -2 Daily sedation vacation Patient is on mirtazapine 15 mg at night for depression. Patient is on Risperidone 0.75 mg every 12 hours Patient is on trazodone 150 mill grams at night for anxiety/depression Patient is on escitalopram oxalate 20 mg at night for depression Patient is on lamotrigine 200 mg at night for psychosis Patient is on gabapentin 200 mg daily for peripheral neuropathy Patient is on hydrocodone/acetaminophen 10/325 one tab every 8 hours. 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 Noted acetaminophen allergy above however patient is on this medication along with acetaminophen as needed CV: Severe sepsis Lactic acidosis- cleared History of chronic diastolic heart failure Hypertension Dyslipidemia Coronary disease status post stent placement Peripheral vascular disease Continue to wean down pressors ( Neosyn 50 mics, Vasopressin 0.04) Source of sepsis likely aspiration pneumonia. CT abdomen/pelvis revealed no acute abdominal findings Lactic acid resolved 1.8 11/12 Continue midodrine 10 mg by mouth twice a day Echo showed EF 60-65% 11/12 Resp: Acute hypoxemic respiratory failure secondary to aspiration PRVC 18/500/1/5/45% Ventilator bundle Albuterol/ipratropium aerosols every 4 hours with albuterol nebs every 2 hours. Spontaneous breathing trials as rafal GI: Gastroesophageal reflux disease history of esophagitis History of colonic polyps Hiatal hernia Patient is on omeprazole 20 mg daily for gastroesophageal reflux disease at home. 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 Kelley s/p HD 11/12 with 2L removal. Left AV left AV Fistula/femoral with positive thrill Continue Sevelamir 2.4 g 3 times a day for hyperphosphatemia On NS@75ml/hr Heme: Anemia Leukocytosis- cleared Monitor CBC daily. Guaiac stool for heme. Transfuse 1unit PRBC No indication for transfusion of blood proximal at this time ID: Gram positive bacteremia 2/4 bottles Severe sepsis Continue abx( piperacillin/tazobactam, vancomycin and azithromycin) monitor for signs of infections ( Fever, WBC) BC 11/11 BC: 2/4 bottles coag negative staph,. Check BC x 2 sets today Sputum cx: GNR MSK: Chronic contractures left upper and lower extremities [facility] Physical therapy evaluate and treat Access - Utilize peripheral IV. Right femoral central line 11/11 Prophylaxis - GI - famotidine - DVT - SCD/ hold heparin SQ (H/H is trending down) Critical Care: The total critical care time was 30 minutes. Time to perform other separately billable procedures was not included in the critical care time. Per Dr. Dunlap- Patient will now be alternate code, intubation and ACLS drugs only. No chest compressions/no shocks. Palliative care is following. Kelin Franklin MD Nov 13, 2016 08:54
--- NOTE | 2016-11-13 09:11 | HHI.NPPN ---
Subjective History of Present Illness 61 year old with CVA Aspiration Pneumonia, Respiratory failure Intubated Interval History Patient is intubated, on Diprivan. Objective Data Data Vital Signs Date Time Temp Pulse Resp B/P (MAP) Pulse Ox O2 Delivery O2 Flow Rate FiO2 11/13/16 08:08 100 35 11/13/16 06:00 80 11/13/16 05:00 100 35 11/13/16 04:15 75 90/66 11/13/16 04:00 77 11/13/16 04:00 98.7 77 18 101/66 (78) 100 11/13/16 04:00 35 11/13/16 04:00 76 101/66 11/13/16 02:00 72 11/13/16 00:00 76 11/13/16 00:00 98.6 76 18 83/51 (62) 100 11/13/16 00:00 35 11/12/16 23:52 24 35 11/12/16 22:00 78 11/12/16 20:04 100 35 11/12/16 20:00 98.7 77 18 116/74 (88) 100 11/12/16 20:00 77 11/12/16 20:00 35 11/12/16 18:00 76 11/12/16 16:06 100 35 11/12/16 16:00 97.6 83 18 111/62 (78) 100 11/12/16 16:00 35 11/12/16 16:00 83 11/12/16 14:00 67 11/12/16 12:00 35 11/12/16 12:00 68 11/12/16 12:00 98.7 68 18 90/57 (68) 100 11/12/16 11:43 100 35 11/12/16 11:02 73 114/71 11/12/16 11:02 73 114/71 11/12/16 10:59 73 115/70 11/12/16 10:13 74 114/66 11/12/16 10:12 74 114/66 11/12/16 10:00 74 -: 11/13/16 0615 11/13/16 0615 Physical Exam General Appearance: Well Developed Neck Neck Exam: Neck Supple Pulmonary Resp Exam: Decreased Bases Cardiology CV Exam: Regular Gastrointestinal/Abdomen GI Exam: Soft, Non-Tender Extremeties Extremities Exam: No Edema Assessment/Plan Problem List: (1) End stage kidney disease ICD Codes: N18.6 - End stage kidney disease Status: Acute Plan: patient had a dialysis treatment yesterday. Usually dialyzes TTS. Dialysis today. He was seen during dialysis. 3K, UF goal is 2 liters. Discussed with geodetic surveyor technologist. He is unresponsive. Monitor fluid and electrolytes. (2) CAD (coronary artery disease) ICD Codes: I25.10 - CAD (coronary artery disease) Status: Acute Plan: Continue to monitor (3) Congestive heart failure (CHF) ICD Codes: I50.9 - Congestive heart failure (CHF) Status: Acute Plan: monitor and will need hemodialysis in am (4) Aspiration into lower respiratory tract ICD Codes: T17.800A - Unspecified foreign body in other parts of respiratory tract causing asphyxiation, initial encounter Status: Acute Plan: Continue to monitor 2/4 blood cultures positive. Ricky Santana MD Nov 13, 2016 09:11
[2016-11-13] MEDS: SODIUM CHLOR 0.9% 1000 ML INJ 1,000 ML OTHER PRN (10:12)
[2016-11-13] MEDS: ALBUMIN HUMAN 25% 25 GM/100 ML BAGP IV PRN (10:12)
[2016-11-13] MEDS: GELATIN 12 MM/7 MM FOAM TOP PRN (10:12)
[2016-11-13 13:42] LABS: HEMATOCRIT 21.6 % (39.0-51.0); REVIEW FLAG FINAL
[2016-11-13] MEDS: SODIUM CHLOR 0.9% 1000 ML INJ 1,000 ML IV SCH ×2 (13:45→21:35)
[2016-11-13] MEDS: BISACODYL EC 5 MG TABEC PO SCH (21:00)
[2016-11-13] MEDS: MIRTAZAPINE 15 MG TAB PO SCH (21:35)
[2016-11-13] MEDS: lamoTRIgine 100 MG TAB PO SCH (21:35)
[2016-11-13] MEDS: traZODone HCL 50 MG TAB PO SCH (21:36)
[2016-11-13] MEDS: AZITHROMYCIN INJ 500 MG in SODIUM CHLOR 0.9% 250 ML INJ 250 ML IV SCH (21:36)
[2016-11-13] MEDS: TAMSULOSIN HCL 0.4 MG CAP PO SCH (21:36)
[2016-11-13] MEDS: ESCITALOPRAM OXALATE 20 MG TAB PO SCH (21:36)
[2016-11-13 23:06] LABS: HEMATOCRIT 24.4 % (39.0-51.0); REVIEW FLAG FINAL
[2016-11-14] VITALS (18 sets, daily range): BP systolic 94–108; BP diastolic 53–61; PULSE 71–95; RESP 18–24; TEMP 97.9–98.8; O2SAT 100
[2016-11-14] MEDS: RESP: ALBUTEROL 2.5 MG/IPRATROPIUM 0.5 MG NEB (SCH) NEB ×6 (00:13→19:49)
[2016-11-14] MEDS: INSULIN ASPART SUPPLEMENTAL SCALE SQ SCH ×6 (03:54→20:00)
[2016-11-14] MEDS: CHLORHEXIDINE GLUCONATE 2 % 1 PACK (2 CLOTHS) TOP SCH (03:54)
[2016-11-14] MEDS: PIPERACIL-TAZO 2.25 GM PREMIX 50 ML IV SCH ×2 (05:23→14:02)
[2016-11-14] MEDS: GABAPENTIN 100 MG CAP PO SCH (08:01)
[2016-11-14] MEDS: SEVELAMER CARBONATE 800 MG TAB PO SCH ×3 (08:01→16:39)
[2016-11-14] MEDS: PROPOFOL 1000 MG/100 ML INJ 100 ML IV PRN (08:01)
[2016-11-14] MEDS: MIDODRINE 5 MG TAB PO SCH ×2 (08:01→21:00)
[2016-11-14] MEDS: risperiDONE 0.5 MG TAB PO SCH ×2 (08:01→21:00)
[2016-11-14] MEDS: DOCUSATE SODIUM 50 MG/SENNA 8.6 MG TAB PO SCH ×2 (08:02→21:00)
[2016-11-14] MEDS: FAMOTIDINE 20 MG/2 ML VIAL IV PUSH SCH (08:02)
[2016-11-14] MEDS: SODIUM CHLORIDE 0.9% FLUSH 10 ML FLUSH IV FLUSH SCH (08:03)
[2016-11-14] MEDS: ARTIFICIAL TEARS OPTH SOLN 15 ML BTL EACH EYE SCH ×3 (08:03→18:34)
[2016-11-14] MEDS: CHLORHEXIDINE 0.12% (ORAL KIT) 15 ML CUP MT SCH ×2 (08:04→20:00)
--- NOTE | 2016-11-14 08:12 | HHI.CCPN ---
Subjective Remarks/Hospital Course 61-year-old AA male of admission 11/11/2016. Date of consultation 11/11/2016. Past medical history of ESRD on HD , , Tuesday , coronary artery disease S/P stent, right frontal CVA with left-sided weakness hypertension, diabetes, anemia chronic disease, schizophrenia/bipolar disorder, who presented to the ED after an episode of vomiting during the last phase of his dialysis on 11/11. Patient complains that towards the end of his dialysis today he started having abdominal pain but he did not vomit. Patient had significant respiratory distress upon arrival. At the time of this interview patient was on nonrebreather with [address] abdomen/pelvis revealed a hiatal hernia, atrophic kidneys and bilateral infiltrates likely from aspiration. White Blood cell count 12,000. Lactate was 6.8. Patient became acutely hypotensive on the floor requiring initiation of peripheral vasopressors. Due to his underlying respiratory failure, patient required emergent intubation due to acute hypoxemic respiratory failure due to aspiration with severe sepsis 11/12 Patient is sedated with Diprivan and Versed. Remains on 3 pressors ( Levophed down 11 mics, Nsoyn 90 mics, Vasopressin 0.04). Afebrile. 11/13 Patient remains intubated with Diprivan and sedated. Off Levophed and Versed. Neosyn down 50 mics and on Vasopressin. 11/14 Patient is off all pressors and off sedation. s/p transfusin 1unit PRBC yesterday Hgb 7.9 last night post transfusion. Afebrile. Objective Vital Signs Date Time Temp Pulse Resp B/P (MAP) Pulse Ox O2 Delivery O2 Flow Rate FiO2 11/14/16 06:00 82 11/14/16 04:04 100 35 11/14/16 04:00 98.3 24 95/53 (67) 11/13/16 20:00 Mechanical Ventilator 11/11/16 13:53 15.00 Intake and Output 11/14/16 11/14/16 11/14/16 07:59 15:59 23:59 Intake Total 1571 ml Output Total 0 ml Balance 1571 ml Result Diagram: 11/13/16 2248 11/13/16 0615 Other Results Laboratory Tests Test 11/13/16 13:19 11/13/16 22:48 Hemoglobin 7.0 GM/DL 7.9 GM/DL Hematocrit 21.6 % 24.4 % Imaging Last Impressions Chest X-Ray 11/11/16 1017 Signed Impressions: Service Date/Time: October 10:20 - CONCLUSION: 1. Discoid atelectasis within the right lung base. 2. Degenerative changes and scoliosis of the thoracic spine. Damaso Sol MD Abdomen/Pelvis CT 11/11/16 0000 Signed Impressions: Service Date/Time: October 16:00 - CONCLUSION: Bilateral lower lobe infiltrates left greater than right. Atrophic kidneys without evidence of obstruction. Moderate-sized hiatal hernia. Ramon Jasso MD Objective Remarks GENERAL: 61-year-old male, critically critically ill intubated, sedated and on multiple pressors. SKIN: Warm and dry. No rash HEAD: Atraumatic. Normocephalic. EYES: Pupils fixed about 3 mm. Right pupil is reactive about 3 mm to 2 mm. ENT: No nasal bleeding or discharge. Mucous membranes pink and moist. NECK: Trachea midline. No JVD. CARDIOVASCULAR: Regular rate and rhythm. S1, S2. No S4 without murmur RESPIRATORY: Coarse crackles appreciated bilaterally right greater than left. No wheeze.. GASTROINTESTINAL: Abdomen debridement, and tender with hypo-bowel sounds appreciated. MUSCULOSKELETAL: Left lower extremity with AV fistula/palpable thrill. Minimal peripheral edema. Bilateral hammertoes. Left upper and lower extremity contracted from prior stroke. NEUROLOGICAL: Sedated, intubated. Withdrawing to right upper and lower extremity. Nonfocal. Known deficits to left upper and lower extremity. A/P Assessment and Plan Neuro/Psych: Bipolar disorder Paranoid schizophrenia Depression Left eye blindness Insomnia Chronic narcotic use Off sedation monitor neuro status. Patient is on mirtazapine 15 mg at night for depression. Patient is on Risperidone 0.75 mg every 12 hours Patient is on trazodone 150 mill grams at night for anxiety/depression Patient is on escitalopram oxalate 20 mg at night for depression Patient is on lamotrigine 200 mg at night for psychosis Patient is on gabapentin 200 mg daily for peripheral neuropathy Patient is on hydrocodone/acetaminophen 10/325 one tab every 8 hours. 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 Noted acetaminophen allergy above however patient is on this medication along with acetaminophen as needed CV: Severe sepsis Lactic acidosis- cleared History of chronic diastolic heart failure Hypertension Dyslipidemia Coronary disease status post stent placement Peripheral vascular disease Off all pressors - monitor HR and BP keep MAP>65mmHg Source of sepsis likely aspiration pneumonia. CT abdomen/pelvis revealed no acute abdominal findings Lactic acid resolved 1.8 11/12 Continue midodrine 10 mg by mouth twice a day Echo showed EF 60-65% 11/12 Resp: Acute hypoxemic respiratory failure secondary to aspiration PRVC 18/500/1/5/45% Ventilator bundle. Check CXR Albuterol/ipratropium aerosols every 4 hours with albuterol nebs every 2 hours. Spontaneous breathing trials as rafal GI: Gastroesophageal reflux disease history of esophagitis History of colonic polyps Hiatal hernia Patient is on omeprazole 20 mg daily for gastroesophageal reflux disease at home. 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 TSH: 1.0 Renal: End-stage renal disease on hemodialysis Tuesday//Tuesday Hyponatremia- improving Monitor renal function, HD per renal Dr. Kelley s/p HD 11/12 with 2L removal. Left AV left AV Fistula/femoral with positive thrill Continue Sevelamer 2.4 g 3 times a day for hyperphosphatemia d/c IVF Heme: Anemia Leukocytosis- cleared Monitor CBC daily. s/p Transfuse 1unit PRBC yesterday/ GI eval likely need EGD. Hemoccult positive ID: Gram positive bacteremia 2/4 bottles Severe sepsis Continue abx( piperacillin/tazobactam, vancomycin and azithromycin) monitor for signs of infections ( Fever, WBC) BC 11/11 BC: 2/4 bottles coag negative staph,. BC 11/14: NGTD Sputum cx: GNR MSK: Chronic contractures left upper and lower extremities [place] Physical therapy evaluate and treat Access - Utilize peripheral IV. Right femoral central line 11/11 Prophylaxis - GI - famotidine - DVT - SCD/ heparin SQ on hold for anemia requiring blood transfusion and Hemoccult positive Level [address] Biga- Patient will now be alternate code, intubation and ACLS drugs only. No chest compressions/no shocks. Palliative care is following. Kelin Franklin MD Nov 14, 2016 08:12
--- NOTE | 2016-11-14 09:09 | RADRPT ---
EXAM DATE/TIME: 11/14/2016 08:24 [facility] COMPARISON: CHEST SINGLE AP, November 11, 2016, 21:03. INDICATIONS : Respiratory failure MEDICAL HISTORY : Hypertension. Diabetes mellitus type II. Cardiovascular disease SURGICAL HISTORY : None. ENCOUNTER: Subsequent ACUITY: 3 days PAIN SCORE: Non-responsive. LOCATION: chest FINDINGS: The patient is rotated towards the left. It appears the ET tube is still directed towards the right m ainstem bronchus. An NG tube is in place with tip directed in to the stomach. There is increased dens ity at the bases bilaterally being worse on the left. CONCLUSION: 1. ET tube still is in the proximal right mainstem bronchus. 2. Increased density at the bases being worse on the left likely related to consolidation, atelectasi s, and possible effusion. This appears worse when compared to the prior exam. Seun Castillo MD on November 14, 2016 at 9:04 Board Certified Radiologist. This report was verified electronically.
--- NOTE | 2016-11-14 09:36 | PD.CONS ---
HPI History of Present Illness This is a 61 year old who presented to the hospital due to episode of vomiting after dialysis. Patient was found to be in respiratory distress upon arrival to the hospital. PMH is significant for ESRD, CAD, and CVA. GI was consulted for evaluation of anemia and Hemoccult positive stools. On admission 11/11, HH was 11.3/36 and on 11/13 HH was noted to be 7.9/24.4. Patient is s/p blood transfusion yesterday. RN states stool has been brown, with no blood noted. 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 HTN Bipolar disorder Depression CAD status post stent placement CHF Paranoid schizophrenia PVD HLD Peripheral neuropathy Hypothyroidism Arthritis Esophagitis GERD Colon polyps Past Surgical History EGD Colonoscopy Cardiac catheterization AV fistula placement (Cristiane Etienne) Coded Allergies: methadone (Unverified Allergy, Severe, 10/12/16) acetaminophen (Unverified Allergy, Unknown, 10/12/16) PATIENT WAS TOLD TO NEVER TAKE THIS MEDICATION propoxyphene (Unverified Allergy, Unknown, 10/12/16) PATIENT WAS TOLD TO NEVER TAKE THIS MEDICATION Medications Current Medications Medications (Trade) Dose Ordered Sig/Michael Route PRN Reason Start Time Stop Time Status Last Admin Dose Admin Acetaminophen (Tylenol) 650 mg Q4H PRN PO Headache, fever, pain 1-4 11/11/16 13:15 Heparin Sodium (Porcine) (Heparin Inj) 5,000 units Q12H SQ 11/11/16 14:00 Future Hold 11/13/16 02:59 Naloxone HCl (Narcan Inj) 0.4 mg UNSCH PRN IV PUSH SEE LABEL COMMENTS 11/11/16 13:15 Senna/Docusate Sodium (Radha-Colace) 1 tab BID PO 11/11/16 21:00 11/13/16 21:36 Magnesium Hydroxide (Milk Of Magnesia Liq) 30 ml Q12H PRN PO MILD - MODERATE CONSTIPATION 11/11/16 13:15 Sennosides (Senokot) 17.2 mg Q12H PRN PO MODERATE - SEVERE CONSTIPATION 11/11/16 13:15 Bisacodyl (Dulcolax Supp) 10 mg DAILY PRN RECTAL SEVERE CONSITIPATION 11/11/16 13:15 Lactulose (Lactulose Liq) 30 ml DAILY PRN PO SEVERE CONSITIPATION 11/11/16 13:15 Piperacillin Sod/ Tazobactam Sod 50 ml @ 100 mls/hr Q8H IV 11/11/16 22:00 11/14/16 05:23 Bisacodyl (Dulcolax Ec) 10 mg HS PO 11/11/16 21:00 11/13/16 21:00 Escitalopram Oxalate (Lexapro) 20 mg HS PO 11/11/16 21:00 11/13/16 21:36 Gabapentin (Neurontin) 200 mg DAILY PO 11/12/16 09:00 11/14/16 08:01 Lamotrigine (LaMICtal) 200 mg HS PO 11/11/16 21:00 11/13/16 21:35 Midodrine (Proamatine) 10 mg BID PO 11/11/16 21:00 11/14/16 08:01 Mirtazapine (Remeron) 15 mg HS PO 11/11/16 21:00 11/13/16 21:35 Risperidone (risperDAL) 0.75 mg Q12HR PO 11/11/16 21:00 11/14/16 08:01 Tamsulosin HCl (Flomax) 0.4 mg HS PO 11/11/16 21:00 11/13/16 21:36 Miscellaneous (Pill Splitter) 1 ea UNSCH PRN OTHER SEE LABEL COMMENTS 11/11/16 15:30 Sevelamer Carbonate (Renvela) 2,400 mg TIDPC PO 11/11/16 18:30 11/14/16 08:01 Trazodone HCl (Desyrel) 150 mg HS PO 11/11/16 21:00 11/13/16 21:36 Dextrose (D50w (Vial) Inj) 50 ml UNSCH PRN IV HYPOGLYCEMIA-SEE COMMENTS 11/11/16 16:30 Glucagon (Glucagon Inj) 1 mg UNSCH PRN OTHER HYPOGLYCEMIA-SEE COMMENTS 11/11/16 16:30 Sodium Chloride 1,000 ml @ 0 mls/hr Q0M PRN OTHER For Prime & Rinse Back 11/11/16 16:37 11/13/16 10:12 Heparin Sodium (Porcine) (Heparin Inj) 8,000 units UNSCH PRN IV FLUSH WITH DIALYSIS 11/11/16 16:45 Sodium Chloride 1,000 ml @ 200 mls/hr Q5H PRN IV WITH DIALYSIS 11/11/16 16:37 Sodium Chloride 1,000 ml @ 0 mls/hr Q0M PRN OTHER WITH DIALYSIS 11/11/16 16:37 Mannitol (Mannitol Inj) 12.5 gm UNSCH PRN IV WITH DIALYSIS 11/11/16 16:45 Albumin Human (Albumin 25% Inj) 25 gm UNSCH PRN IV WITH DIALYSIS 11/11/16 16:45 11/13/16 10:12 Sodium Chloride (NS Flush) 5 ml UNSCH PRN IV FLUSH WITH DIALYSIS 11/11/16 16:45 Ondansetron HCl (Zofran Inj) 4 mg UNSCH PRN IV PUSH WITH DIALYSIS 11/11/16 16:45 Acetaminophen (Tylenol) 650 mg UNSCH PRN PO for headach, pain, temp > 101F 11/11/16 16:45 UNV Diphenhydramine HCl (Benadryl) 25 mg UNSCH PRN PO for hives/itching/anaphylaxis 11/11/16 16:45 Nitroglycerin (Nitrostat Sl) 0.4 mg UNSCH PRN SL CHEST PAIN 11/11/16 16:45 Clonidine (Catapres) 0.1 mg UNSCH PRN PO for BP > 180/100 X 2 readings 11/11/16 16:45 Epoetin Camilo (Epogen Inj) 4,000 units UNSCH PRN IV WITH DIALYSIS 11/11/16 16:45 Gelatin (Gelfoam 12 Mm/7 Mm Top) 1 foam UNSCH PRN TOP SEE LABEL COMMENTS 11/11/16 16:45 11/13/16 10:12 Norepinephrine Bitartrate 4 mg/ Sodium Chloride 250 ml @ 7.5 mls/hr TITRATE PRN IV Blood pressure management 11/11/16 19:15 11/12/16 10:12 Terbutaline Sulfate (Brethine Inj) 1 mg UNSCH PRN SQ For Extravasation 11/11/16 19:15 Phenylephrine HCl 160 mg/Dextrose 500 ml @ 7.5 mls/hr TITRATE PRN IV Blood pressure management 11/11/16 19:15 11/12/16 10:13 Albuterol/ Ipratropium (Duoneb Neb) 1 ampule Q4HR NEB NEB 11/11/16 20:00 11/14/16 08:38 Albuterol Sulfate (Albuterol Neb) 2.5 mg Q2HR NEB PRN NEB dyspnea 11/11/16 19:15 Insulin Aspart (NovoLOG SUPPLEMENTAL SCALE) 1 Q4HR SQ 11/11/16 20:00 11/14/16 08:23 Famotidine (Pepcid Inj) 10 mg Q12H IV PUSH 11/11/16 21:00 11/14/16 08:02 Sodium Chloride (NS Flush) 2 ml UNSCH PRN IV FLUSH FLUSH AFTER USING IV ACCESS 11/11/16 19:15 Sodium Chloride (NS Flush) 2 ml BID IV FLUSH 11/11/16 21:00 11/14/16 08:03 Artificial Tears (Tears Naturale Opth Soln) 1 drop TID EACH EYE 11/12/16 09:00 11/14/16 08:03 Ondansetron HCl (Zofran Inj) 4 mg Q6H PRN IV PUSH NAUSEA OR VOMITING 11/11/16 19:15 Miscellaneous Information 1 Q361D XX 11/11/16 19:15 11/11/16 19:15 Chlorhexidine Gluconate (Chlorhexidine 2% Cloth) 3 pack Taper DAILY@04 TOP 11/12/16 04:00 11/08/17 03:59 Chlorhexidine Gluconate (Chlorhexidine 2% Cloth) 3 pack UNSCH PRN TOP HYGIENIC CARE 11/11/16 19:15 Chlorhexidine Gluconate (Peridex 0.12% Liq) 15 ml BID@08,20 MT 11/11/16 20:00 11/14/16 08:04 Propofol 100 ml @ 2.46 mls/hr TITRATE PRN IV SEDATION 11/11/16 19:15 11/14/16 08:01 Sodium Chloride 1,000 ml @ 75 mls/hr [id number] IV 11/11/16 20:45 11/13/16 21:35 Azithromycin 500 mg/Sodium Chloride 250 ml @ 250 mls/hr Q24H IV 11/11/16 22:00 11/13/16 21:36 Pharmacy Profile Note 0 ml @ 0 mls/hr UNSCH OTHER 11/12/16 09:00 Insulin Detemir (Levemir Inj) 5 units Q12HR SQ 11/14/16 09:00 UNV Family History Unable to obtain Social History Unable to assess (Cristiane Etienne) Review of Systems ROS Unable to assess (Cristiane Etienne) GI Exam Vitals I&O Vital Signs Date Time Temp Pulse Resp B/P (MAP) Pulse Ox O2 Delivery O2 Flow Rate FiO2 11/14/16 08:38 100 35 11/14/16 08:00 98.3 86 24 101/55 (70) 100 11/14/16 07:00 Mechanical Ventilator 35 11/14/16 06:00 82 11/14/16 04:04 100 35 11/14/16 04:00 98.3 90 24 95/53 (67) 100 11/14/16 04:00 35 11/14/16 04:00 90 11/14/16 02:00 74 11/14/16 01:27 100 35 11/14/16 00:00 35 11/14/16 00:00 78 11/14/16 00:00 98.8 79 21 95/59 (71) 100 11/13/16 22:38 100 35 11/13/16 22:00 78 11/13/16 20:00 77 11/13/16 20:00 35 11/13/16 20:00 Mechanical Ventilator 35 11/13/16 20:00 98.6 75 22 92/53 (66) 100 11/13/16 18:46 98.4 80 20 93/51 100 11/13/16 18:00 85 11/13/16 16:00 97.9 86 18 94/56 (69) 100 11/13/16 16:00 35 11/13/16 16:00 86 11/13/16 14:11 100 35 11/13/16 14:00 82 11/13/16 12:00 35 11/13/16 12:00 98.0 79 20 104/67 (79) 100 11/13/16 12:00 79 11/13/16 11:33 100 35 11/13/16 10:00 78 I/O 11/13/16 11/13/16 11/13/16 11/14/16 11/14/16 11/14/16 07:00 15:00 23:00 07:00 15:00 23:00 Intake Total 1690 ml 161 ml 1768 ml 1571 ml Output Total 0 ml 2000 ml 0 ml 0 ml Balance 1690 ml -1839 ml 1768 ml 1571 ml Intake Oral 0 ml IV Total 1690 ml 161 ml 989 ml 619 ml Tube Feeding 84 ml 512 ml Packed Cells 400 ml 280 ml Blood Product IV Normal Saline Flush 55 ml Other 240 ml 160 ml Output Urine Total 0 ml 0 ml 0 ml Hemodialysis 2000 ml # Bowel Movements 1 1 Imaging Last Impressions Chest X-Ray 11/11/16 1017 Signed Impressions: Service Date/Time: October 10:20 - CONCLUSION: 1. Discoid atelectasis within the right lung base. 2. Degenerative changes and scoliosis of the thoracic spine. Damaso Sol MD Abdomen/Pelvis CT 11/11/16 0000 Signed Impressions: Service Date/Time: October 16:00 - CONCLUSION: Bilateral lower lobe infiltrates left greater than right. Atrophic kidneys without evidence of obstruction. Moderate-sized hiatal hernia. Ramon Jasso MD Laboratory Test 11/13/16 13:19 11/13/16 22:48 Hemoglobin 7.0 GM/DL 7.9 GM/DL Hematocrit 21.6 % 24.4 % Date/Time Source Procedure Growth Status 11/14/16 00:14 Blood Peripheral Aerobic Blood Culture Pending Received 11/14/16 00:14 Blood Peripheral Anaerobic Blood Culture Pending Received 11/13/16 18:00 Stool Stool Stool Occult Blood (OLIVA) - Final HEMOCCULT POSITIVE Complete 11/11/16 21:30 Sputum Endotracheal Gram Stain - Final Resulted 11/11/16 21:30 Sputum Culture - Preliminary Gram Negative Neftali Resulted Physical Examination HEENT: Normocephalic; atraumatic; no jaundice. NECK: Neck is supple. CHEST: Bilateral coarse crackles. CARDIAC: RRR with no murmur gallop or rubs. ABDOMEN: Nondistended, hypoactive bowel sounds EXTREMITIES: Mild peripheral edema. LLE with AV fistula. Dario hammertoes. PENNY and LE contracted. SKIN: Normal; no rash; no jaundice. [employer]: Sedated. (Cristiane Etienne) Assessment and Plan Plan ASSESSMENT: - Anemia, Hemoccult positive stools. HH has decreased from 11.3/36 on 11/11 to 7.9/24.4 on 11/13. Patient is s/p transfusion on 11/13. No active bleeding noted. PLAN: - EGD/Colonoscopy Tuesday - Obtain consents - Clear liquids today - Bowel prep tonight - NPO after MN tonight - Monitor HH, transfuse as necessary - Further recommendations to follow based on results of above Patient seen and examined by Dr. Hopkins and myself and this note is written on his behalf. (Cristiane Etienne) Physician Comments Seen and examined with PAGE< no active bleeding reported. Egd/colonoscopy planned for tuesday. Check kub today. Discussed with the nurse. Thank you (Joann Hopkins MD) Cristiane Etienne Nov 14, 2016 09:36 Joann Hopkins MD Nov 14, 2016 11:46
[2016-11-14] MEDS: PHENYLEPHRINE INJ 160 MG in DEXTROSE 5% IN WATE 500 ML INJ 484 ML IV PRN ×2 (10:23)
[2016-11-14 10:55] LABS: AUTOMATED NEUTROPHIL # 8.2 TH/MM3 (1.8-7.7); BASOPHIL % 0.1 % (0.0-2.0); EOSINOPHIL # 0.1 TH/MM3 (0-0.4); EOSINOPHIL % 1.1 % (0.0-4.0); HEMATOCRIT 23.7 % (39.0-51.0); HEMO FLAGS DIFF FINAL; LYMPH % 7.3 % (9.0-44.0); LYMPHOCYTE # 0.7 TH/MM3 (1.0-4.8); MEAN CELL VOLUME 88.6 FL (80.0-100.0); MEAN CORPUSCULAR HEMOGLOBIN 29.6 PG (27.0-34.0); MEAN CORPUSCULAR HGB CONC 33.4 % (32.0-36.0); MONO % 5.3 % (0.0-8.0); NEUT % 86.2 % (16.0-70.0); PLATELET COUNT 176 TH/MM3 (150-450); RED BLOOD COUNT 2.67 MIL/MM3 (4.50-5.90); RED CELL DISTRIBUTION WIDTH 16.7 % (11.6-17.2); WHITE BLOOD COUNT 9.6 TH/MM3 (4.0-11.0)
[2016-11-14 11:08] LABS: BICARBONATE 27.7 MEQ/L (21.0-32.0); POTASSIUM 3.4 MEQ/L (3.5-5.1)
[2016-11-14] MEDS: INSULIN DETEMIR 100 UNITS/ML VIAL SQ SCH ×2 (11:39→21:00)
--- NOTE | 2016-11-14 14:31 | RADRPT ---
EXAM DATE/TIME: 11/14/2016 14:11 [facility] COMPARISON: CHEST SINGLE AP, November 14, 2016, 8:24. INDICATIONS : ET tube placement. MEDICAL HISTORY : None. SURGICAL HISTORY : None. ENCOUNTER: Subsequent ACUITY: 4 - 6 days PAIN SCORE: Non-responsive. LOCATION: Bilateral chest FINDINGS: Interval placement of ETT with tip at the level of the clavicles. NGT courses beyond the GE junction with tip omitted from the image. Lungs are hypoaerated with continued patchy bilateral lower lobe air space disease. There is likely small left pleural effusion. Cardiac silhouette appears enlarged. Rend ered exam is unchanged. CONCLUSION: 1. ETT at the level of the clavicles. NGT beyond the GE junction. 2. Stable examination with patchy bilateral lower lung zone airspace disease and probable small left pleural effusion. Pako Multani MD on November 14, 2016 at 14:28 Board Certified Radiologist. This report was verified electronically.
[2016-11-14] MEDS ORDERED: PEG (High)/E-LYTE SOLN 4000 ML BTL PO ONE (16:00)
[2016-11-14] MEDS: ESCITALOPRAM OXALATE 20 MG TAB PO SCH (21:00)
[2016-11-14] MEDS: BISACODYL EC 5 MG TABEC PO SCH (21:00)
[2016-11-14] MEDS: MIRTAZAPINE 15 MG TAB PO SCH (21:00)
[2016-11-14] MEDS: lamoTRIgine 100 MG TAB PO SCH (21:00)
[2016-11-14] MEDS: TAMSULOSIN HCL 0.4 MG CAP PO SCH (21:00)
[2016-11-14] MEDS: traZODone HCL 50 MG TAB PO SCH (21:00)
[2016-11-15] VITALS (18 sets, daily range): BP systolic 97–136; BP diastolic 53–74; PULSE 68–81; RESP 18–23; TEMP 97.7–98.6; O2SAT 100
[2016-11-15] MEDS: SODIUM CHLORIDE 0.9% FLUSH 10 ML FLUSH IV FLUSH SCH ×3 (00:14→21:34)
[2016-11-15] MEDS: CHLORHEXIDINE GLUCONATE 2 % 1 PACK (2 CLOTHS) TOP SCH (00:16)
[2016-11-15] MEDS: AZITHROMYCIN INJ 500 MG in SODIUM CHLOR 0.9% 250 ML INJ 250 ML IV SCH ×2 (00:23→21:34)
[2016-11-15] MEDS: PIPERACIL-TAZO 2.25 GM PREMIX 50 ML IV SCH ×4 (00:23→21:34)
[2016-11-15] MEDS: FAMOTIDINE 20 MG/2 ML VIAL IV PUSH SCH ×3 (00:23→21:43)
[2016-11-15] MEDS: RESP: ALBUTEROL 2.5 MG/IPRATROPIUM 0.5 MG NEB (SCH) NEB ×5 (00:32→15:43)
[2016-11-15] MEDS: INSULIN ASPART SUPPLEMENTAL SCALE SQ SCH ×6 (04:00→20:00)
[2016-11-15 04:41] LABS: AUTOMATED NEUTROPHIL # 6.1 TH/MM3 (1.8-7.7); BASOPHIL % 0.4 % (0.0-2.0); EOSINOPHIL # 0.2 TH/MM3 (0-0.4); EOSINOPHIL % 2.6 % (0.0-4.0); HEMATOCRIT 25.4 % (39.0-51.0); HEMO FLAGS DIFF FINAL; LYMPH % 15.1 % (9.0-44.0); LYMPHOCYTE # 1.3 TH/MM3 (1.0-4.8); MEAN CELL VOLUME 88.5 FL (80.0-100.0); MEAN CORPUSCULAR HEMOGLOBIN 29.3 PG (27.0-34.0); MEAN CORPUSCULAR HGB CONC 33.1 % (32.0-36.0); NEUT % 72.9 % (16.0-70.0); PLATELET COUNT 189 TH/MM3 (150-450); RED BLOOD COUNT 2.87 MIL/MM3 (4.50-5.90); RED CELL DISTRIBUTION WIDTH 16.3 % (11.6-17.2); WHITE BLOOD COUNT 8.4 TH/MM3 (4.0-11.0)
[2016-11-15 05:03] LABS: BICARBONATE 26.4 MEQ/L (21.0-32.0); POTASSIUM 3.3 MEQ/L (3.5-5.1)
[2016-11-15] MEDS: PROPOFOL 1000 MG/100 ML INJ 100 ML IV PRN (06:30)
[2016-11-15] MEDS: ALTEPLASE RECOMBINANT 2 MG VIAL IV FLUSH PRN ×2 (08:28→08:41)
[2016-11-15] MEDS: MIDODRINE 5 MG TAB PO SCH ×2 (08:29→21:00)
[2016-11-15] MEDS: GABAPENTIN 100 MG CAP PO SCH (08:29)
[2016-11-15] MEDS: DOCUSATE SODIUM 50 MG/SENNA 8.6 MG TAB PO SCH ×2 (08:30→21:00)
[2016-11-15] MEDS: risperiDONE 0.5 MG TAB PO SCH ×2 (08:30→21:00)
[2016-11-15] MEDS: ARTIFICIAL TEARS OPTH SOLN 15 ML BTL EACH EYE SCH ×3 (08:30→18:19)
[2016-11-15] MEDS: CHLORHEXIDINE 0.12% (ORAL KIT) 15 ML CUP MT SCH ×2 (08:31→20:00)
[2016-11-15] MEDS: INSULIN DETEMIR 100 UNITS/ML VIAL SQ SCH (08:31)
[2016-11-15] MEDS: SEVELAMER CARBONATE 800 MG TAB PO SCH ×3 (08:31→18:30)
--- NOTE | 2016-11-15 08:40 | HHI.CCPN ---
Subjective Remarks/Hospital Course 61-year-old AA male of admission 11/11/2016. Date of consultation 11/11/2016. Past medical history of ESRD on HD , , Tuesday , coronary artery disease S/P stent, right frontal CVA with left-sided weakness hypertension, diabetes, anemia chronic disease, schizophrenia/bipolar disorder, who presented to the ED after an episode of vomiting during the last phase of his dialysis on 11/11. Patient complains that towards the end of his dialysis today he started having abdominal pain but he did not vomit. Patient had significant respiratory distress upon arrival. At the time of this interview patient was on nonrebreather with [address] abdomen/pelvis revealed a hiatal hernia, atrophic kidneys and bilateral infiltrates likely from aspiration. White Blood cell count 12,000. Lactate was 6.8. Patient became acutely hypotensive on the floor requiring initiation of peripheral vasopressors. Due to his underlying respiratory failure, patient required emergent intubation due to acute hypoxemic respiratory failure due to aspiration with severe sepsis 11/12 Patient is sedated with Diprivan and Versed. Remains on 3 pressors ( Levophed down 11 mics, Nsoyn 90 mics, Vasopressin 0.04). Afebrile. 11/13 Patient remains intubated with Diprivan and sedated. Off Levophed and Versed. Neosyn down 50 mics and on Vasopressin. 11/14 Patient is off all pressors and off sedation. s/p transfusion 1unit PRBC yesterday Hgb 7.9 last night post transfusion. Afebrile. 11/15 No events overnight. Remaisn intubated and on low dose diprivan infusion. Afebrile. For EGD&colonoscopy today. Objective Vital Signs Date Time Temp Pulse Resp B/P (MAP) Pulse Ox O2 Delivery O2 Flow Rate FiO2 11/15/16 07:33 100 35 11/15/16 06:00 81 11/15/16 04:00 98.1 23 123/68 (86) 11/14/16 19:00 Mechanical Ventilator 11/11/16 13:53 15.00 Intake and Output 11/15/16 11/15/16 11/16/16 08:00 16:00 00:00 Intake Total 494 ml Output Total 0 ml Balance 494 ml Result Diagram: 11/15/16 0400 11/15/16 0400 Other Results Laboratory Tests Test 11/14/16 09:20 11/15/16 04:00 White Blood Count 9.6 TH/MM3 8.4 TH/MM3 Red Blood Count 2.67 MIL/MM3 2.87 MIL/MM3 Hemoglobin 7.9 GM/DL 8.4 GM/DL Hematocrit 23.7 % 25.4 % Mean Corpuscular Volume 88.6 FL 88.5 FL Mean Corpuscular Hemoglobin 29.6 PG 29.3 PG Mean Corpuscular Hemoglobin Concent 33.4 % 33.1 % Red Cell Distribution Width 16.7 % 16.3 % Platelet Count 176 TH/MM3 189 TH/MM3 Mean Platelet Volume 8.8 FL 8.3 FL Neutrophils (%) (Auto) 86.2 % 72.9 % Lymphocytes (%) (Auto) 7.3 % 15.1 % Monocytes (%) (Auto) 5.3 % 9.0 % Eosinophils (%) (Auto) 1.1 % 2.6 % Basophils (%) (Auto) 0.1 % 0.4 % Neutrophils # (Auto) 8.2 TH/MM3 6.1 TH/MM3 Lymphocytes # (Auto) 0.7 TH/MM3 1.3 TH/MM3 Monocytes # (Auto) 0.5 TH/MM3 0.8 TH/MM3 Eosinophils # (Auto) 0.1 TH/MM3 0.2 TH/MM3 Basophils # (Auto) 0.0 TH/MM3 0.0 TH/MM3 CBC Comment DIFF FINAL DIFF FINAL Differential Comment Blood Urea Nitrogen 34 MG/DL 37 MG/DL Creatinine 4.66 MG/DL 5.41 MG/DL Random Glucose 224 MG/DL 100 MG/DL Calcium Level 9.0 MG/DL 8.9 MG/DL Sodium Level 138 MEQ/L 140 MEQ/L Potassium Level 3.4 MEQ/L 3.3 MEQ/L Chloride Level 100 MEQ/L 100 MEQ/L Carbon Dioxide Level 27.7 MEQ/L 26.4 MEQ/L Anion Gap 10 MEQ/L 14 MEQ/L Estimat Glomerular Filtration Rate 15 ML/MIN 13 ML/MIN Imaging Last Impressions Chest X-Ray 11/14/16 0000 Signed Impressions: Service Date/Time: Monday, November 14, 2016 14:11 - CONCLUSION: 1. ETT at the level of the clavicles. NGT beyond the GE junction. 2. Stable examination with patchy bilateral lower lung zone airspace disease and probable small left pleural effusion. Pako Multani MD Abdomen/Pelvis CT 11/11/16 0000 Signed Impressions: Service Date/Time: October 16:00 - CONCLUSION: Bilateral lower lobe infiltrates left greater than right. Atrophic kidneys without evidence of obstruction. Moderate-sized hiatal hernia. Ramon Jasso MD Objective Remarks GENERAL: 61-year-old male, critically critically ill intubated, sedated SKIN: Warm and dry. No rash HEAD: Atraumatic. Normocephalic. EYES: Pupils fixed about 3 mm. Right pupil is reactive about 3 mm to 2 mm. ENT: No nasal bleeding or discharge. Mucous membranes pink and moist. NECK: Trachea midline. No JVD. CARDIOVASCULAR: Regular rate and rhythm. S1, S2. No S4 without murmur RESPIRATORY: Coarse crackles appreciated bilaterally right greater than left. No wheeze.. GASTROINTESTINAL: Abdomen debridement, and tender with hypo-bowel sounds appreciated. MUSCULOSKELETAL: Left lower extremity with AV fistula/palpable thrill. Minimal peripheral edema. Bilateral hammertoes. Left upper and lower extremity contracted from prior stroke. NEUROLOGICAL: Sedated, intubated. Withdrawing to right upper and lower extremity. Nonfocal. Known deficits to left upper and lower extremity. A/P Assessment and Plan Neuro/Psych: Bipolar disorder Paranoid schizophrenia Depression Left eye blindness Insomnia Chronic narcotic use On low dose Diprivan infusion. Daily sedation vacation. Monitor neuro status. Patient is on mirtazapine 15 mg at night for depression. Patient is on Risperidone 0.75 mg every 12 hours Patient is on trazodone 150 mill grams at night for anxiety/depression Patient is on escitalopram oxalate 20 mg at night for depression Patient is on lamotrigine 200 mg at night for psychosis Patient is on gabapentin 200 mg daily for peripheral neuropathy Patient is on hydrocodone/acetaminophen 10/325 one tab every 8 hours. 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 Noted acetaminophen allergy above however patient is on this medication along with acetaminophen as needed CV: Severe sepsis Lactic acidosis- cleared History of chronic diastolic heart failure Hypertension Dyslipidemia Coronary disease status post stent placement Peripheral vascular disease Monitor HR and BP keep MAP>65mmHg Lactic acid resolved 1.8 11/12 Continue midodrine 10 mg by mouth twice a day Echo showed EF 60-65% 11/12 Resp: Acute hypoxemic respiratory failure secondary to aspiration PRVC 18/500/1/5/45% Ventilator bundle. Albuterol/ipratropium aerosols every 4 hours with albuterol nebs every 2 hours. Spontaneous breathing trials as rafal GI: Gastroesophageal reflux disease history of esophagitis History of colonic polyps Hiatal hernia Patient is on omeprazole 20 mg daily for gastroesophageal reflux disease at home. 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 Hold Levemir as patient is NPO Renal: End-stage renal disease on hemodialysis Tuesday//Tuesday Hyponatremia- improving Monitor renal function, HD per renal Dr. Kelley s/p HD 11/12 with 2L removal. Left AV left AV Fistula/femoral with positive thrill Continue Sevelamer 2.4 g 3 times a day for hyperphosphatemia Heme: Anemia Leukocytosis- cleared Monitor CBC daily. s/p Transfuse 1unit PRBC 11/13 GI is consulted for EGD for panendoscopy today ID: Staph Epi bacteremia Pneumonia s/p sepsis Continue abx( piperacillin/tazobactam, vancomycin and azithromycin) monitor for signs of infections ( Fever, WBC) BC 11/11 BC: 2/4 bottles staph Epi. BC 11/14: NGTD Sputum cx: Proteus MSK: Chronic contractures left upper and lower extremities [facility] Physical therapy evaluate and treat Access - Utilize peripheral IV. Right femoral central line 11/11 Prophylaxis - GI - famotidine - DVT - SCD/ heparin SQ on hold for anemia requiring blood transfusion and Hemoccult positive Level [address] Dunlap- Patient will now be alternate code, intubation and ACLS drugs only. No chest compressions/no shocks. Palliative care is following. Kelin Franklin MD Nov 15, 2016 08:40
[2016-11-15] MEDS ORDERED: POTASSIUM CHLOR 20 MEQ PREMIX 100 ML IV ONE (09:00)
[2016-11-15] MEDS ORDERED: PROPOFOL 200 MG/20 ML AMP IV ONE (12:41)
[2016-11-15] MEDS ORDERED: DO NOT ADM ANY ANTICOAGULANT DRUGS PRN (13:25)
--- NOTE | 2016-11-15 13:27 | PD.PROCEDR ---
GI Procedure REFERRING PHYSICIAN ICU PROCEDURE PERFORMED EGD with biopsy followed by colonoscopy INDICATION FOR PROCEDURE Anemia, guaiac-positive stools PROCEDURE: The procedure, risks and benefits were discussed with Mr. Sharpe and informed consent was obtained. Anesthesia sedated him with Diprivan. He was placed in the left lateral decubitus position. EGD: The Pentax videoscope was introduced through the oropharynx and advanced to the second portion of the duodenum under direct visualization. Retroflexion was performed in the stomach. FINDINGS: Esophagus this appeared to be unremarkable with normal limits except for an irregular Z line which was biopsied Stomach there was punctate and patchy erythema in the antrum but no ulcerations no erosions no blood or bleeding the rest of the stomach was unremarkable antral biopsies were taken further evaluation Duodenum there was patchy erythema in the duodenal bulb of unclear significance this was biopsied the rest of the duodenum was unremarkable Colonoscopy: The Pentax videoscope was introduced through the rectum and advanced to cecum where the ileocecal valve and appendiceal orifice were identified. Retroflexion was performed in the rectum. Colonic prep was fair FINDINGS: Colonic withdrawal time greater than 6 minutes as the scope was slowly withdrawn colonic mucosa was carefully inspected this was noted to be unremarkable with normal limits hallway through I was unable to perform due to technical difficulties retroflexion in the rectum but I could identify moderate size internal hemorrhoids rectal examination otherwise unremarkable ESTIMATED BLOOD LOSS: None SPECIMENS REMOVED: Esophageal and duodenal biopsies COMPLICATIONS: None IMPRESSION: Irregular Z line Gastritis Duodenitis Internal hemorrhoids PLAN: Await biopsies May start tube feeds Continue with current supportive care Monitor labs Consider small bowel follow-through/capsule endoscopy once patient is more stable, this could also be done on an outpatient basis Follow-up with GI post discharge Sarwat Rain MD Nov 15, 2016 13:27
--- NOTE | 2016-11-15 13:44 | HHI.HCPN ---
Reason for visit a. To assist with evaluation and management of symptoms including: pain, dyspnea. b. To assist medical decision maker(s) with: better understanding of current medical conditions; weighing benefits/burdens of medical treatment options; making medical treatment decisions. . Subjective/Interval History Patient seen and examined in ICU. Patient remains on mech vent (FiO2 35%), off pressors. His eyes are open, not tracking. Plan for EGD/colonoscopy today for Hemoccult positive stool on 11/13/16. . Family meeting planned for 4pm. WBC 8.4, hemoglobin 8.4, platelets 189. Creatinine 5.41, potassium 3.3. Hemodialysis 11/13 with removal of 2 liters. 11/11/16 blood cultures positive staph epidermidis (multiple drug resistant) and sputum cultures positive proteus mirabilis (harley sensitive). Repeat blood cultures pending. No new imaging. Discussed with Dr. Serrano, plan for medical extubation. Left message for daughter to return call to address reintubation if needed. . Family/friend interactions Family meeting planned 4pm. 4:10pm: Left message for daughter to see if she is coming for meeting and to readdress CODE status now that patient was medically extubated. . Advance Directives Living Will: Never completed Health Care Surrogate: Copy in medical record Durable Power of Order Checker: Never completed Advance Directive Specifics Health Care Surrogate(s): Designation of health care names Belle White as primary HCS and Tico Sharpe as alternate HCS. . Significant change in goals: Alternate Code ACLS and intubation only. Family meeting 4pm to further clarify goals. 4:10pm: Left message for daughter to see if she is coming for meeting and to readdress CODE status now that patient was medically extubated. . Objective Vital Signs Date Time Temp Pulse Resp B/P (MAP) Pulse Ox O2 Delivery O2 Flow Rate FiO2 11/15/16 13:20 35 11/15/16 11:37 100 35 11/15/16 10:45 35 11/15/16 08:00 76 11/15/16 08:00 98.3 76 18 112/64 (80) 100 11/15/16 08:00 35 11/15/16 07:33 100 35 11/15/16 07:00 100 Mechanical Ventilator 35 11/15/16 06:00 81 11/15/16 04:00 74 11/15/16 04:00 35 11/15/16 04:00 98.1 80 23 123/68 (86) 100 11/15/16 03:54 100 35 11/15/16 02:00 74 11/15/16 01:19 100 35 11/15/16 00:00 35 11/15/16 00:00 98.3 74 18 104/65 (78) 100 11/15/16 00:00 74 11/14/16 22:00 75 11/14/16 22:00 100 35 11/14/16 20:00 98.1 76 21 100/59 (73) 100 11/14/16 20:00 76 11/14/16 20:00 35 11/14/16 19:47 100 35 11/14/16 19:00 100 Mechanical Ventilator 35 11/14/16 18:00 71 11/14/16 16:00 98.2 74 18 108/61 (77) 100 11/14/16 16:00 35 11/14/16 16:00 74 11/14/16 15:03 100 35 11/14/16 14:00 73 Intake & Output 11/15/16 11/15/16 07:00 19:00 Intake Total 494 ml Output Total 0 ml Balance 494 ml IV Total 350 ml Tube Feeding 144 ml Output Urine Total 0 ml # Bowel Movements 10 Physical Exam CONSTITUTIONAL/GENERAL: This is a chronically, ill, critically ill patient, sedated on mech vent. TUBES/LINES/DRAINS: ETT, OG, PIV right wrist and FA, femoral central line, left lower extremity AV fistula +thrill. SKIN: Dressing in place left LE, Ecchymoses on upper extremities. Skin temperature appropriate. Not diaphoretic. EYES: Eyes open. CARDIOVASCULAR: Regular rate and rhythm without murmurs, gallops, or rubs. No JVD. RESPIRATORY/CHEST: course breath sounds bilaterally right greater than left. GASTROINTESTINAL: Abdomen soft, nondistended. No guarding. Bowel sounds hypoactive. GENITOURINARY: Without palpable bladder distension. MUSCULOSKELETAL: bilateral hammer toes. Left lower extremity AV fistula. Trace peripheral edema. Left upper and lower extremity contractures. NEUROLOGICAL: intubated. Withdraws to painful stimuli right upper and lower extremities. PSYCHIATRIC: eyes open. Diagnostic Tests Laboratory Laboratory Tests Test 11/12/16 14:19 11/13/16 06:15 11/13/16 13:19 11/13/16 22:48 Lactic Acid Level 1.8 mmol/L (0.4-2.0) White Blood Count 10.2 TH/MM3 (4.0-11.0) Red Blood Count 2.49 MIL/MM3 (4.50-5.90) Hemoglobin 7.3 GM/DL (13.0-17.0) 7.0 GM/DL (13.0-17.0) 7.9 GM/DL (13.0-17.0) Hematocrit 22.3 % (39.0-51.0) 21.6 % (39.0-51.0) 24.4 % (39.0-51.0) Mean Corpuscular Volume 89.5 FL (80.0-100.0) Mean Corpuscular Hemoglobin 29.5 PG (27.0-34.0) Mean Corpuscular Hemoglobin Concent 32.9 % (32.0-36.0) Red Cell Distribution Width 15.9 % (11.6-17.2) Platelet Count 173 TH/MM3 (150-450) Mean Platelet Volume 8.0 FL (7.0-11.0) Neutrophils (%) (Auto) 82.5 % (16.0-70.0) Lymphocytes (%) (Auto) 8.0 % (9.0-44.0) Monocytes (%) (Auto) 8.5 % (0.0-8.0) Eosinophils (%) (Auto) 0.7 % (0.0-4.0) Basophils (%) (Auto) 0.3 % (0.0-2.0) Neutrophils # (Auto) 8.4 TH/MM3 (1.8-7.7) Lymphocytes # (Auto) 0.8 TH/MM3 (1.0-4.8) Monocytes # (Auto) 0.9 TH/MM3 (0-0.9) Eosinophils # (Auto) 0.1 TH/MM3 (0-0.4) Basophils # (Auto) 0.0 TH/MM3 (0-0.2) CBC Comment DIFF FINAL Differential Comment Blood Urea Nitrogen 42 MG/DL (7-18) Creatinine 5.38 MG/DL (0.60-1.30) Random Glucose 210 MG/DL (74-106) Calcium Level 8.8 MG/DL (8.5-10.1) Sodium Level 133 MEQ/L (136-145) Potassium Level 3.9 MEQ/L (3.5-5.1) Chloride Level 95 MEQ/L (98-107) Carbon Dioxide Level 23.5 MEQ/L (21.0-32.0) Anion Gap 15 MEQ/L (5-15) Estimat Glomerular Filtration Rate 13 ML/MIN (>89) Test 11/14/16 09:20 11/15/16 04:00 White Blood Count 9.6 TH/MM3 (4.0-11.0) 8.4 TH/MM3 (4.0-11.0) Red Blood Count 2.67 MIL/MM3 (4.50-5.90) 2.87 MIL/MM3 (4.50-5.90) Hemoglobin 7.9 GM/DL (13.0-17.0) 8.4 GM/DL (13.0-17.0) Hematocrit 23.7 % (39.0-51.0) 25.4 % (39.0-51.0) Mean Corpuscular Volume 88.6 FL (80.0-100.0) 88.5 FL (80.0-100.0) Mean Corpuscular Hemoglobin 29.6 PG (27.0-34.0) 29.3 PG (27.0-34.0) Mean Corpuscular Hemoglobin Concent 33.4 % (32.0-36.0) 33.1 % (32.0-36.0) Red Cell Distribution Width 16.7 % (11.6-17.2) 16.3 % (11.6-17.2) Platelet Count 176 TH/MM3 (150-450) 189 TH/MM3 (150-450) Mean Platelet Volume 8.8 FL (7.0-11.0) 8.3 FL (7.0-11.0) Neutrophils (%) (Auto) 86.2 % (16.0-70.0) 72.9 % (16.0-70.0) Lymphocytes (%) (Auto) 7.3 % (9.0-44.0) 15.1 % (9.0-44.0) Monocytes (%) (Auto) 5.3 % (0.0-8.0) 9.0 % (0.0-8.0) Eosinophils (%) (Auto) 1.1 % (0.0-4.0) 2.6 % (0.0-4.0) Basophils (%) (Auto) 0.1 % (0.0-2.0) 0.4 % (0.0-2.0) Neutrophils # (Auto) 8.2 TH/MM3 (1.8-7.7) 6.1 TH/MM3 (1.8-7.7) Lymphocytes # (Auto) 0.7 TH/MM3 (1.0-4.8) 1.3 TH/MM3 (1.0-4.8) Monocytes # (Auto) 0.5 TH/MM3 (0-0.9) 0.8 TH/MM3 (0-0.9) Eosinophils # (Auto) 0.1 TH/MM3 (0-0.4) 0.2 TH/MM3 (0-0.4) Basophils # (Auto) 0.0 TH/MM3 (0-0.2) 0.0 TH/MM3 (0-0.2) CBC Comment DIFF FINAL DIFF FINAL Differential Comment Blood Urea Nitrogen 34 MG/DL (7-18) 37 MG/DL (7-18) Creatinine 4.66 MG/DL (0.60-1.30) 5.41 MG/DL (0.60-1.30) Random Glucose 224 MG/DL (74-106) 100 MG/DL (74-106) Calcium Level 9.0 MG/DL (8.5-10.1) 8.9 MG/DL (8.5-10.1) Sodium Level 138 MEQ/L (136-145) 140 MEQ/L (136-145) Potassium Level 3.4 MEQ/L (3.5-5.1) 3.3 MEQ/L (3.5-5.1) Chloride Level 100 MEQ/L (98-107) 100 MEQ/L (98-107) Carbon Dioxide Level 27.7 MEQ/L (21.0-32.0) 26.4 MEQ/L (21.0-32.0) Anion Gap 10 MEQ/L (5-15) 14 MEQ/L (5-15) Estimat Glomerular Filtration Rate 15 ML/MIN (>89) 13 ML/MIN (>89) Result Diagram: 11/15/16 0400 11/15/16 0400 Microbiology Microbiology Date/Time Source Procedure Growth Status 11/14/16 00:14 Blood Peripheral Aerobic Blood Culture - Preliminary NO GROWTH IN 1 DAY Resulted 11/14/16 00:14 Blood Peripheral Anaerobic Blood Culture - Preliminary NO GROWTH IN 1 DAY Resulted 11/14/16 00:10 Blood Peripheral Aerobic Blood Culture - Preliminary NO GROWTH IN 1 DAY Resulted 11/14/16 00:10 Blood Peripheral Anaerobic Blood Culture - Preliminary NO GROWTH IN 1 DAY Resulted 11/13/16 18:00 Stool Stool Stool Occult Blood ([facility]IVA) - Final HEMOCCULT POSITIVE Complete Imaging Last Impressions Chest X-Ray 11/14/16 0000 Signed Impressions: Service Date/Time: Monday, November 14, 2016 14:11 - CONCLUSION: 1. ETT at the level of the clavicles. NGT beyond the GE junction. 2. Stable examination with patchy bilateral lower lung zone airspace disease and probable small left pleural effusion. Pako Multani MD Abdomen/Pelvis CT 11/11/16 0000 Signed Impressions: Service Date/Time: October 16:00 - CONCLUSION: Bilateral lower lobe infiltrates left greater than right. Atrophic kidneys without evidence of obstruction. Moderate-sized hiatal hernia. Ramon Jasso MD . Procedures * 11/11/16 intubated, central line placed Assessment and Plan Disease Oriented Problem List: (1) HCAP (healthcare-associated pneumonia) (2) CVA, old, hemiparesis (3) SIRS (systemic inflammatory response syndrome) (4) CAD (coronary artery disease) (5) End stage kidney disease (6) Aspiration into lower respiratory tract (7) Hemodialysis patient (8) Sepsis (9) Anemia Symptom Scale: (1) Pain 0-10 Scale: Unable to quantify (2) Dyspnea 0-10 Scale: Unable to quantify (3) Debility 0-10 Scale: Unable to quantify Pertinent Non-Medical Issues Psychosocial: . Spiritual: Baptism ozzy. Legal: Patient is currently incapacitated, uncertain if he will regain capacity. Designation of health care names Belle White as primary HCS and Trecherelle Sharpe as alternate HCS. Ethical issues impacting care: No known concerns at this time. . Important Contacts * Belle White, daughter/ primary HCS: [phone] * Tico Sharpe, alternate HCS: [phone] * David Peterson, brother: [phone] . Prognosis Overall prognosis poor in this patient with ongoing trajectory of decline, multiple comorbidities. Code Status: Alternative Code (ACLS and Intubation Only. ) Plan * Patient is currently incapacitated, uncertain if he will regain capacity. Designation of health care names Belle White as primary HCS and Tico Sharpe as alternate HCS. * Alternate Code: Intubation and ACLS only * Goals: Family meeting arranged 4pm Tuesday11/15/16. * 11/15/16: 4:10pm: Left message for daughter to see if she is coming for meeting and to readdress CODE status now that patient was medically extubated. Awaiting return call. * Discussed with Dr. Serrano. * SYMPTOMS: Pain: No obvious signs of pain on exam. 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 Dyspnea: on mech vent. Sedated with Diprivan and Versed. Hypotension: On multiple pressors (Howard, Vaso and Howard). No new medication recommendations at this time. * Palliative care will continue to follow to assist with symptom management and clarification of treatment goals as needed. . Attestation To help prompt me to consider important information that might be impacting today's encounter and assessment, information from prior notes written by myself or my colleagues may have been "brought forward" into today's note. My signature on this note, however, is an attestation that I personally performed the exam, history, and/or decision-making noted today, and, unless otherwise indicated, the interactions with patient, family, and staff as well as the review of records all occurred today. I also attest that the listed assessment and stated plan reflect my best clinical judgment today based on the combination of historical information, prior notes, and today's exam/ interactions. When time spent is documented, it refers only to time spent today by the signer, or if indicated, combined time spent today by collaborating physician/nurse practitioner. Neelam Karimi Nov 15, 2016 13:44
[2016-11-15 15:04] LABS: BLOOD GAS BASE EXCESS -0.6 mmol/L (-2-2); BLOOD GAS CARBOXYHEMOGLOBIN 1.9 % (0-4); BLOOD GAS HCO3 24 mmol/L (22-26); BLOOD GAS METHEMOGLOBIN 1.1 % (0-2); BLOOD GAS O2 HGB SATURATION 95 % (90-100); BLOOD GAS OXYGEN CONTENT 12.2 Vol % (12.0-20.0); BLOOD GAS PCO2 42 mmHg (38-42); BLOOD GAS PO2 107 mmHg (61-120); CRITICAL VALUE NO; DRAW SITE RT RADIAL; FIO2 40 %; NUMBER OF ARTERIAL PUNCTURES 1; STAT NO; TEMP CORR TO 98.6; ULNAR PULSE Y
--- NOTE | 2016-11-15 19:17 | HHI.NPPN ---
Subjective History of Present Illness 61-year-old male with history of end-stage renal disease on hemodialysis, Tuesdays, and Tuesday he was at dialysis and during the last hour he developed nausea and vomiting and thought to have aspirated. Patient is being transferred here and was hypotensive initially. He is being diagnosed with Aspiration Pneumonia, Respiratory failure and was Intubated Additional Remarks Patient now extubated, with nasal cannula, not in distress. Objective Data Data 11/15/16 11/16/16 19:00 07:00 Intake Total 380 ml Balance 380 ml IV Total 180 ml Other 200 ml Vital Signs Date Time Temp Pulse Resp B/P (MAP) Pulse Ox O2 Delivery O2 Flow Rate FiO2 11/15/16 15:50 100 40 11/15/16 13:20 35 11/15/16 12:00 35 11/15/16 11:37 100 35 11/15/16 10:45 35 11/15/16 08:00 76 11/15/16 08:00 98.3 76 18 112/64 (80) 100 11/15/16 08:00 35 11/15/16 07:33 100 35 11/15/16 07:00 100 Mechanical Ventilator 35 11/15/16 06:00 81 11/15/16 04:00 74 11/15/16 04:00 35 11/15/16 04:00 98.1 80 23 123/68 (86) 100 11/15/16 03:54 100 35 11/15/16 02:00 74 11/15/16 01:19 100 35 11/15/16 00:00 35 11/15/16 00:00 98.3 74 18 104/65 (78) 100 11/15/16 00:00 74 11/14/16 22:00 75 11/14/16 22:00 100 35 11/14/16 20:00 98.1 76 21 100/59 (73) 100 11/14/16 20:00 76 11/14/16 20:00 35 11/14/16 19:47 100 35 -: 11/15/16 0400 11/15/16 0400 Physical Exam General Appearance: No Acute Distress, Comfortable Eyes Eye Exam: Pupils Equal Neck Neck Exam: Neck Supple Pulmonary Resp Exam: Decreased Bases Cardiology CV Exam: Regular, Normal Sinus Rhythm Gastrointestinal/Abdomen GI Exam: Soft, Non-Tender, Bowel Sounds Present, Distended Extremeties Extremities Exam: Trace Edema Neurologic Neuro Exam: Alert, Awake Assessment/Plan Problem List: (1) End stage kidney disease ICD Codes: N18.6 - End stage kidney disease Status: Acute Plan: patient had a dialysis treatment on Sat. Usually dialyzes TTS. Dialysis today. Continue HD in AM. (2) CAD (coronary artery disease) ICD Codes: I25.10 - CAD (coronary artery disease) Status: Acute Plan: Continue to monitor (3) Congestive heart failure (CHF) ICD Codes: I50.9 - Congestive heart failure (CHF) Status: Acute Plan: monitor and will need hemodialysis in am (4) Aspiration into lower respiratory tract ICD Codes: T17.800A - Unspecified foreign body in other parts of respiratory tract causing asphyxiation, initial encounter Status: Acute Plan: Continue to monitor 2/4 blood cultures positive. Plan Patient is now extubated. To get swallowing evaluation. BP is better, on Midodrine for low BP. Continue Zosyn and Azithromycin. HD will be in AM. Natalia Bell MD Nov 15, 2016 19:17
[2016-11-15] MEDS: traZODone HCL 50 MG TAB PO SCH (21:00)
[2016-11-15] MEDS: MIRTAZAPINE 15 MG TAB PO SCH (21:00)
[2016-11-15] MEDS: TAMSULOSIN HCL 0.4 MG CAP PO SCH (21:00)
[2016-11-15] MEDS: ESCITALOPRAM OXALATE 20 MG TAB PO SCH (21:00)
[2016-11-15] MEDS: lamoTRIgine 100 MG TAB PO SCH (21:00)
[2016-11-15] MEDS: BISACODYL EC 5 MG TABEC PO SCH (21:00)
[2016-11-16] VITALS (14 sets, daily range): BP systolic 94–136; BP diastolic 50–109; PULSE 82–90; RESP 16–26; TEMP 98–99; O2SAT 94–100
[2016-11-16] MEDS: INSULIN ASPART SUPPLEMENTAL SCALE SQ SCH ×7 (04:00→23:45)
[2016-11-16] MEDS: CHLORHEXIDINE GLUCONATE 2 % 1 PACK (2 CLOTHS) TOP SCH (04:00)
[2016-11-16] MEDS: PIPERACIL-TAZO 2.25 GM PREMIX 50 ML IV SCH ×3 (04:29→23:43)
[2016-11-16 05:18] LABS: AUTOMATED NEUTROPHIL # 5.7 TH/MM3 (1.8-7.7); BASOPHIL % 0.3 % (0.0-2.0); EOSINOPHIL # 0.3 TH/MM3 (0-0.4); EOSINOPHIL % 3.5 % (0.0-4.0); HEMATOCRIT 26.4 % (39.0-51.0); HEMO FLAGS DIFF FINAL; LYMPHOCYTE # 1.1 TH/MM3 (1.0-4.8); MEAN CELL VOLUME 89.1 FL (80.0-100.0); MEAN CORPUSCULAR HEMOGLOBIN 29.6 PG (27.0-34.0); MEAN CORPUSCULAR HGB CONC 33.2 % (32.0-36.0); MONO % 11.3 % (0.0-8.0); NEUT % 70.9 % (16.0-70.0); PLATELET COUNT 218 TH/MM3 (150-450); RED BLOOD COUNT 2.96 MIL/MM3 (4.50-5.90); RED CELL DISTRIBUTION WIDTH 15.9 % (11.6-17.2); WHITE BLOOD COUNT 8.1 TH/MM3 (4.0-11.0)
[2016-11-16 06:00] LABS: BICARBONATE 25.3 MEQ/L (21.0-32.0)
[2016-11-16] MEDS: CHLORHEXIDINE 0.12% (ORAL KIT) 15 ML CUP MT SCH ×2 (08:00→19:29)
[2016-11-16] MEDS: DOCUSATE SODIUM 50 MG/SENNA 8.6 MG TAB PO SCH ×2 (09:00→19:30)
[2016-11-16] MEDS: SODIUM CHLORIDE 0.9% FLUSH 10 ML FLUSH IV FLUSH SCH ×2 (09:00→20:37)
[2016-11-16] MEDS: ARTIFICIAL TEARS OPTH SOLN 15 ML BTL EACH EYE SCH ×3 (09:00→18:36)
[2016-11-16] MEDS: MIDODRINE 5 MG TAB PO SCH ×2 (09:00→20:37)
[2016-11-16] MEDS: FAMOTIDINE 20 MG/2 ML VIAL IV PUSH SCH ×2 (09:00→20:37)
[2016-11-16] MEDS: GELATIN 12 MM/7 MM FOAM TOP PRN (09:06)
[2016-11-16] MEDS: SODIUM CHLOR 0.9% 1000 ML INJ 1,000 ML OTHER PRN (09:06)
--- NOTE | 2016-11-16 09:19 | HHI.CCPN ---
Subjective Remarks/Hospital Course 61-year-old AA male of admission 11/11/2016. Date of consultation 11/11/2016. Past medical history of ESRD on HD , , Tuesday , coronary artery disease S/P stent, right frontal CVA with left-sided weakness hypertension, diabetes, anemia chronic disease, schizophrenia/bipolar disorder, who presented to the ED after an episode of vomiting during the last phase of his dialysis on 11/11. Patient complains that towards the end of his dialysis today he started having abdominal pain but he did not vomit. Patient had significant respiratory distress upon arrival. At the time of this interview patient was on nonrebreather with [address] abdomen/pelvis revealed a hiatal hernia, atrophic kidneys and bilateral infiltrates likely from aspiration. White Blood cell count 12,000. Lactate was 6.8. Patient became acutely hypotensive on the floor requiring initiation of peripheral vasopressors. Due to his underlying respiratory failure, patient required emergent intubation due to acute hypoxemic respiratory failure due to aspiration with severe sepsis 11/12 Patient is sedated with Diprivan and Versed. Remains on 3 pressors ( Levophed down 11 mics, Nsoyn 90 mics, Vasopressin 0.04). Afebrile. 11/13 Patient remains intubated with Diprivan and sedated. Off Levophed and Versed. Neosyn down 50 mics and on Vasopressin. 11/14 Patient is off all pressors and off sedation. s/p transfusion 1unit PRBC yesterday Hgb 7.9 last night post transfusion. Afebrile. 11/15 No events overnight. Remains intubated and on low dose Diprivan infusion. Afebrile. For EGD&colonoscopy today. 11/16 Patient was extubated yesterday on 3L oxygen with good sats. Awake, alert. Afebrile for HD today. Objective Vital Signs Date Time Temp Pulse Resp B/P (MAP) Pulse Ox O2 Delivery O2 Flow Rate FiO2 11/16/16 07:13 96 Nasal Cannula 3.00 11/16/16 06:00 85 11/16/16 04:00 98.5 26 114/60 (78) 11/15/16 15:50 40 Intake and Output 11/16/16 11/16/16 11/17/16 08:00 16:00 00:00 Intake Total 50 ml Balance 50 ml Result Diagram: 11/16/16 0425 11/16/16 0425 Other Results Laboratory Tests Test 11/15/16 14:55 11/16/16 04:25 Blood Gas Puncture Site RT RADIAL Blood Gas Patient Temperature 98.6 Blood Gas HCO3 24 mmol/L Blood Gas Base Excess -0.6 mmol/L Blood Gas Oxygen Saturation 95 % Arterial Blood pH 7.38 Arterial Blood Partial Pressure CO2 42 mmHg Arterial Blood Partial Pressure O2 107 mmHg Arterial Blood Oxygen Content 12.2 Vol % Arterial Blood Carboxyhemoglobin 1.9 % Arterial Blood Methemoglobin 1.1 % Blood Gas Hemoglobin 9.0 G/DL Blood Gas Ventilator Setting CPAP 10/5 Blood Gas Inspired Oxygen 40 % White Blood Count 8.1 TH/MM3 Red Blood Count 2.96 MIL/MM3 Hemoglobin 8.8 GM/DL Hematocrit 26.4 % Mean Corpuscular Volume 89.1 FL Mean Corpuscular Hemoglobin 29.6 PG Mean Corpuscular Hemoglobin Concent 33.2 % Red Cell Distribution Width 15.9 % Platelet Count 218 TH/MM3 Mean Platelet Volume 7.8 FL Neutrophils (%) (Auto) 70.9 % Lymphocytes (%) (Auto) 14.0 % Monocytes (%) (Auto) 11.3 % Eosinophils (%) (Auto) 3.5 % Basophils (%) (Auto) 0.3 % Neutrophils # (Auto) 5.7 TH/MM3 Lymphocytes # (Auto) 1.1 TH/MM3 Monocytes # (Auto) 0.9 TH/MM3 Eosinophils # (Auto) 0.3 TH/MM3 Basophils # (Auto) 0.0 TH/MM3 CBC Comment DIFF FINAL Differential Comment Blood Urea Nitrogen 46 MG/DL Creatinine 6.53 MG/DL Random Glucose 67 MG/DL Calcium Level 9.0 MG/DL Sodium Level 138 MEQ/L Potassium Level 4.0 MEQ/L Chloride Level 99 MEQ/L Carbon Dioxide Level 25.3 MEQ/L Anion Gap 14 MEQ/L Estimat Glomerular Filtration Rate 10 ML/MIN Imaging Last Impressions Chest X-Ray 11/14/16 0000 Signed Impressions: Service Date/Time: Monday, November 14, 2016 14:11 - CONCLUSION: 1. ETT at the level of the clavicles. NGT beyond the GE junction. 2. Stable examination with patchy bilateral lower lung zone airspace disease and probable small left pleural effusion. Pako Multani MD Abdomen/Pelvis CT 11/11/16 0000 Signed Impressions: Service Date/Time: October 16:00 - CONCLUSION: Bilateral lower lobe infiltrates left greater than right. Atrophic kidneys without evidence of obstruction. Moderate-sized hiatal hernia. Ramon Jasso MD Objective Remarks GENERAL: 61-year-old male, critically critically ill intubated, sedated SKIN: Warm and dry. No rash HEAD: Atraumatic. Normocephalic. EYES: Pupils fixed about 3 mm. Right pupil is reactive about 3 mm to 2 mm. ENT: No nasal bleeding or discharge. Mucous membranes pink and moist. NECK: Trachea midline. No JVD. CARDIOVASCULAR: Regular rate and rhythm. S1, S2. No S4 without murmur RESPIRATORY: Coarse crackles appreciated bilaterally right greater than left. No wheeze.. GASTROINTESTINAL: Abdomen debridement, and tender with hypo-bowel sounds appreciated. MUSCULOSKELETAL: Left lower extremity with AV fistula/palpable thrill. Minimal peripheral edema. Bilateral hammertoes. Left upper and lower extremity contracted from prior stroke. NEUROLOGICAL: Sedated, intubated. Withdrawing to right upper and lower extremity. Nonfocal. Known deficits to left upper and lower extremity. A/P Assessment and Plan Neuro/Psych: Bipolar disorder Paranoid schizophrenia Depression Left eye blindness Insomnia Chronic narcotic use Monitor neuro status, awake and alert On mirtazapine 15 mg qhs, Risperidone 0.75 mg every 12 hours, trazodone 150 mg at night for anxiety/depression On escitalopram oxalate 20 mg at night for depression, lamotrigine 200 mg at night for psychosis On gabapentin 200 mg daily for peripheral neuropathy CV: Severe sepsis Lactic acidosis- cleared History of chronic diastolic heart failure Hypertension Dyslipidemia Coronary disease status post stent placement Peripheral vascular disease Monitor HR and BP keep MAP>65mmHg Lactic acid resolved 1.8 11/12 Continue midodrine 10 mg by mouth twice a day Echo showed EF 60-65% 11/12 Resp: Acute hypoxemic respiratory failure secondary to aspiration Extubated 11/16 Continue with oxygen keep sat >92% Albuterol/ipratropium aerosols every 4 hours with albuterol nebs every 2 hours. 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 Renal: End-stage renal disease on hemodialysis Tuesday//Tuesday Hyponatremia- improving Monitor renal function, renal Dr. Kelley s/p HD 11/12 with 2L removal. For HD today Left AV left AV Fistula/femoral with positive thrill Continue Sevelamer 2.4 g 3 times a day for hyperphosphatemia Heme: Anemia Leukocytosis- cleared Monitor CBC daily. s/p Transfuse 1unit PRBC 11/13 ID: Staph Epi bacteremia Pneumonia s/p sepsis Continue abx( piperacillin/tazobactam, d/c azithromycin) monitor for signs of infections ( Fever, WBC) BC 11/11 BC: 2/4 bottles staph Epi. ( nacholey contaminant) 11/14: NGTD Sputum cx: Proteus MSK: Chronic contractures left upper and lower extremities [facility] Physical therapy evaluate and treat Access - Utilize peripheral IV. Right femoral central line 11/11- d/c right femoral line Prophylaxis - GI - famotidine - DVT - SCD/ heparin SQ on hold for anemia requiring blood transfusion and Hemoccult positive Palliative care is following Level 3 Kelin Franklin MD Nov 16, 2016 09:19
[2016-11-16] MEDS: SEVELAMER CARBONATE 800 MG TAB PO SCH ×3 (09:30→18:36)
[2016-11-16] MEDS: RESP: ALBUTEROL 2.5 MG/IPRATROPIUM 0.5 MG NEB (SCH) NEB ×3 (09:51→20:52)
--- NOTE | 2016-11-16 10:16 | HHI.GIFU ---
Subjective Remarks Resting in bed. Getting HD. No n/v. Denies abdominal pain. No active bleeding. (Tita Infante) Objective Vitals I&O Vital Signs Date Time Temp Pulse Resp B/P (MAP) Pulse Ox O2 Delivery O2 Flow Rate FiO2 11/16/16 07:13 96 Nasal Cannula 3.00 11/16/16 06:00 85 11/16/16 04:00 98.5 83 26 114/60 (78) 98 11/16/16 04:00 83 11/16/16 02:00 83 11/16/16 00:00 82 11/16/16 00:00 98.0 82 25 105/57 (73) 100 11/15/16 22:00 80 11/15/16 20:35 100 Nasal Cannula 3.00 11/15/16 20:00 97.7 79 20 124/70 (88) 100 11/15/16 20:00 79 11/15/16 19:00 100 Nasal Cannula 4.00 11/15/16 18:00 80 11/15/16 16:00 68 11/15/16 16:00 98.6 68 18 97/53 (68) 100 11/15/16 15:50 100 40 11/15/16 14:00 69 11/15/16 13:20 35 11/15/16 12:00 98.5 78 21 136/74 (94) 100 11/15/16 12:00 35 11/15/16 12:00 78 11/15/16 11:37 100 35 11/15/16 10:45 35 11/15/16 10:00 68 I/O 11/15/16 11/15/16 11/15/16 11/16/16 11/16/16 11/16/16 06:59 14:59 22:59 06:59 14:59 22:59 Intake Total 144 ml 680 ml 1160 ml 300 ml Output Total 0 ml 0 ml Balance 144 ml 680 ml 1160 ml 300 ml Intake Oral 0 ml IV Total 480 ml 1100 ml 300 ml Tube Feeding 144 ml 0 ml Other 200 ml 60 ml Output Urine Total 0 ml 0 ml # Bowel Movements 10 0 Laboratory Laboratory Tests Test 11/15/16 14:55 11/16/16 04:25 Blood Gas Puncture Site RT RADIAL Blood Gas Patient Temperature 98.6 Blood Gas HCO3 24 Blood Gas Base Excess -0.6 Blood Gas Oxygen Saturation 95 Arterial Blood pH 7.38 Arterial Blood Partial Pressure CO2 42 Arterial Blood Partial Pressure O2 107 Arterial Blood Oxygen Content 12.2 Arterial Blood Carboxyhemoglobin 1.9 Arterial Blood Methemoglobin 1.1 Blood Gas Hemoglobin 9.0 Blood Gas Ventilator Setting CPAP 10/5 Blood Gas Inspired Oxygen 40 White Blood Count 8.1 Red Blood Count 2.96 Hemoglobin 8.8 Hematocrit 26.4 Mean Corpuscular Volume 89.1 Mean Corpuscular Hemoglobin 29.6 Mean Corpuscular Hemoglobin Concent 33.2 Red Cell Distribution Width 15.9 Platelet Count 218 Mean Platelet Volume 7.8 Neutrophils (%) (Auto) 70.9 Lymphocytes (%) (Auto) 14.0 Monocytes (%) (Auto) 11.3 Eosinophils (%) (Auto) 3.5 Basophils (%) (Auto) 0.3 Neutrophils # (Auto) 5.7 Lymphocytes # (Auto) 1.1 Monocytes # (Auto) 0.9 Eosinophils # (Auto) 0.3 Basophils # (Auto) 0.0 CBC Comment DIFF FINAL Differential Comment Blood Urea Nitrogen 46 Creatinine 6.53 Random Glucose 67 Calcium Level 9.0 Sodium Level 138 Potassium Level 4.0 Chloride Level 99 Carbon Dioxide Level 25.3 Anion Gap 14 Estimat Glomerular Filtration Rate 10 Date/Time Source Procedure Growth Status 11/14/16 00:14 Blood Peripheral Aerobic Blood Culture - Preliminary NO GROWTH IN 1 DAY Resulted 11/14/16 00:14 Blood Peripheral Anaerobic Blood Culture - Preliminary NO GROWTH IN 1 DAY Resulted 11/13/16 18:00 Stool Stool Stool Occult Blood (OLIVA) - Final HEMOCCULT POSITIVE Complete 11/11/16 21:30 Sputum Endotracheal Gram Stain - Final Complete 11/11/16 21:30 Sputum Culture - Final Proteus Mirabilis Complete Imaging Last Impressions Chest X-Ray 11/14/16 0000 Signed Impressions: Service Date/Time: Monday, November 14, 2016 14:11 - CONCLUSION: 1. ETT at the level of the clavicles. NGT beyond the GE junction. 2. Stable examination with patchy bilateral lower lung zone airspace disease and probable small left pleural effusion. Pako Multani MD Abdomen/Pelvis CT 11/11/16 0000 Signed Impressions: Service Date/Time: October 16:00 - CONCLUSION: Bilateral lower lobe infiltrates left greater than right. Atrophic kidneys without evidence of obstruction. Moderate-sized hiatal hernia. Ramon Jasso MD Physical Exam HEENT: Normocephalic; atraumatic; no jaundice. CHEST: Course breath sounds. CARDIAC: RRR ABDOMEN: Soft, mildly distended, nontender; no hepatosplenomegaly; bowel sounds are present in all four quadrants. EXTREMITIES:Left upper extremity contracted, generalized weakness DEPUTY PROGRAM MANAGER: No focal deficits; alert and oriented to self and place (Tita Infante) Assessment and Plan Plan ASSESSMENT: - Anemia with hemoccult positive stools. S/P EGD/Colonoscopy (11/15/16)----> Irregular Z line, Gastritis, Duodenitis, Internal hemorrhoids. Pathology pending. No active bleeding. S/P 1 unit PRBC. HH 8.8/26.4. Pepcid. - Severe sepsis, leukocytosis, bacteremia. 11/11 Bcx with staphylococcus epidermidis. Rpt cx no growth one day. Zosyn. - ESRD, HD per renal. - Respiratory failure, s/p extubation. - CAD, CHF, PVD, HTN, DM, Hypothyroidism, Bipolar d/o per attending. PLAN: - Swallow evaluation, Renal diet at recommended consistency after swallow evaluation. - Await pathology - Cont. Pepcid - Monitor labs - Transfuse as necessary - Consider small bowel follow-through/capsule endoscopy once patient is more stable, this could also be done on an outpatient basis - Pt seen and examined by Dr. Rain and myself and this note is written on his behalf (Tita Infante) Physician Comments Patient seen and examined Agree with above Continue with current supportive care Monitor labs Not much to add at this point from a GI perspective therefore we will sign off Please reconsult if there is any concern about continued bleeding Patient to follow-up with GI post discharge And hopefully he will get his small bowel follow-through prior discharge (Sarwat Rain MD) Tita Infante Nov 16, 2016 10:16 Sarwat Rain MD Nov 16, 2016 23:22
--- NOTE | 2016-11-16 10:32 | HHI.NPPN ---
Subjective History of Present Illness 61-year-old male with history of end-stage renal disease on hemodialysis, Tuesdays, and Tuesday he was at dialysis and during the last hour he developed nausea and vomiting and thought to have aspirated. Patient is being transferred here and was hypotensive initially. He is being diagnosed with Aspiration Pneumonia, Respiratory failure and was Intubated Additional Remarks Patient seen in AM during HD, breathing is better. Objective Data Data Vital Signs Date Time Temp Pulse Resp B/P (MAP) Pulse Ox O2 Delivery O2 Flow Rate FiO2 11/16/16 10:00 85 11/16/16 08:00 Nasal Cannula 2.00 11/16/16 08:00 85 11/16/16 08:00 98.2 84 16 121/94 (103) 96 11/16/16 07:13 96 Nasal Cannula 3.00 11/16/16 06:00 85 11/16/16 04:00 98.5 83 26 114/60 (78) 98 11/16/16 04:00 83 11/16/16 02:00 83 11/16/16 00:00 82 11/16/16 00:00 98.0 82 25 105/57 (73) 100 11/15/16 22:00 80 11/15/16 20:35 100 Nasal Cannula 3.00 11/15/16 20:00 97.7 79 20 124/70 (88) 100 11/15/16 20:00 79 11/15/16 19:00 100 Nasal Cannula 4.00 11/15/16 18:00 80 11/15/16 16:00 68 11/15/16 16:00 98.6 68 18 97/53 (68) 100 11/15/16 15:50 100 40 11/15/16 14:00 69 11/15/16 13:20 35 11/15/16 12:00 98.5 78 21 136/74 (94) 100 11/15/16 12:00 35 11/15/16 12:00 78 11/15/16 11:37 100 35 11/15/16 10:45 35 -: 11/16/16 0425 11/16/16 0425 Physical Exam General Appearance: No Acute Distress, Comfortable Eyes Eye Exam: Pupils Equal Neck Neck Exam: Neck Supple Pulmonary Resp Exam: Decreased Bases Cardiology CV Exam: Regular, Normal Sinus Rhythm Gastrointestinal/Abdomen GI Exam: Soft, Non-Tender, Bowel Sounds Present, Distended Extremeties Extremities Exam: Trace Edema Neurologic Neuro Exam: Alert, Awake Assessment/Plan Problem List: (1) End stage kidney disease ICD Codes: N18.6 - End stage kidney disease Status: Acute Plan: patient had a dialysis treatment on Sat. Usually dialyzes TTS. Dialysis today. Continue HD in AM. (2) CAD (coronary artery disease) ICD Codes: I25.10 - CAD (coronary artery disease) Status: Acute Plan: Continue to monitor (3) Congestive heart failure (CHF) ICD Codes: I50.9 - Congestive heart failure (CHF) Status: Acute Plan: monitor and will need hemodialysis in am (4) Aspiration into lower respiratory tract ICD Codes: T17.800A - Unspecified foreign body in other parts of respiratory tract causing asphyxiation, initial encounter Status: Acute Plan: Continue to monitor 2/4 blood cultures positive. Plan Patient is now on HD. BP is better, on Midodrine for low BP. Continue Zosyn and Azithromycin. BP iss table, remove fluid as tolerated. Continue antibiotics. Natalia Bell MD Nov 16, 2016 10:32
[2016-11-16] MEDS: risperiDONE 0.5 MG TAB PO SCH ×2 (12:55→20:36)
[2016-11-16] MEDS: GABAPENTIN 100 MG CAP PO SCH (12:56)
[2016-11-16] MEDS: BISACODYL EC 5 MG TABEC PO SCH (19:29)
[2016-11-16] MEDS: TAMSULOSIN HCL 0.4 MG CAP PO SCH (20:36)
[2016-11-16] MEDS: lamoTRIgine 100 MG TAB PO SCH (20:36)
[2016-11-16] MEDS: MIRTAZAPINE 15 MG TAB PO SCH (20:36)
[2016-11-16] MEDS: traZODone HCL 50 MG TAB PO SCH (20:36)
[2016-11-16] MEDS: ESCITALOPRAM OXALATE 20 MG TAB PO SCH (20:37)
[2016-11-17] VITALS (14 sets, daily range): BP systolic 84–118; BP diastolic 52–77; PULSE 68–89; RESP 15–18; TEMP 98.5–99; O2SAT 95–100
[2016-11-17] MEDS: RESP: ALBUTEROL 2.5 MG/IPRATROPIUM 0.5 MG NEB (SCH) NEB ×4 (03:38→21:00)
[2016-11-17] MEDS: INSULIN ASPART SUPPLEMENTAL SCALE SQ SCH ×5 (04:00→20:00)
[2016-11-17] MEDS: CHLORHEXIDINE GLUCONATE 2 % 1 PACK (2 CLOTHS) TOP SCH (04:00)
[2016-11-17] MEDS: PIPERACIL-TAZO 2.25 GM PREMIX 50 ML IV SCH ×3 (05:39→20:39)
[2016-11-17 06:22] LABS: AUTOMATED NEUTROPHIL # 4.1 TH/MM3 (1.8-7.7); BASOPHIL % 0.4 % (0.0-2.0); EOSINOPHIL # 0.2 TH/MM3 (0-0.4); EOSINOPHIL % 2.8 % (0.0-4.0); HEMATOCRIT 27.3 % (39.0-51.0); HEMO FLAGS DIFF FINAL; LYMPH % 20.2 % (9.0-44.0); LYMPHOCYTE # 1.3 TH/MM3 (1.0-4.8); MEAN CELL VOLUME 88.9 FL (80.0-100.0); MEAN CORPUSCULAR HGB CONC 32.6 % (32.0-36.0); NEUT % 63.6 % (16.0-70.0); PLATELET COUNT 218 TH/MM3 (150-450); RED BLOOD COUNT 3.07 MIL/MM3 (4.50-5.90); WHITE BLOOD COUNT 6.5 TH/MM3 (4.0-11.0)
[2016-11-17 06:53] LABS: BICARBONATE 29.9 MEQ/L (21.0-32.0); POTASSIUM 3.5 MEQ/L (3.5-5.1)
[2016-11-17] MEDS: CHLORHEXIDINE 0.12% (ORAL KIT) 15 ML CUP MT SCH ×2 (08:00→20:00)
[2016-11-17] MEDS: SEVELAMER CARBONATE 800 MG TAB PO SCH ×3 (08:48→17:37)
[2016-11-17] MEDS: MIDODRINE 5 MG TAB PO SCH ×2 (08:48→20:41)
[2016-11-17] MEDS: GABAPENTIN 100 MG CAP PO SCH (08:48)
[2016-11-17] MEDS: ARTIFICIAL TEARS OPTH SOLN 15 ML BTL EACH EYE SCH ×3 (08:48→17:36)
[2016-11-17] MEDS: FAMOTIDINE 20 MG/2 ML VIAL IV PUSH SCH ×2 (08:48→20:40)
[2016-11-17] MEDS: SODIUM CHLORIDE 0.9% FLUSH 10 ML FLUSH IV FLUSH SCH ×2 (08:48→20:41)
[2016-11-17] MEDS: risperiDONE 0.5 MG TAB PO SCH ×2 (08:48→20:50)
[2016-11-17] MEDS: DOCUSATE SODIUM 50 MG/SENNA 8.6 MG TAB PO SCH ×2 (08:49→20:41)
--- NOTE | 2016-11-17 13:11 | HHI.CCPN ---
Subjective Remarks/Hospital Course 61-year-old AA male of admission 11/11/2016. Date of consultation 11/11/2016. Past medical history of ESRD on HD , , Tuesday , coronary artery disease S/P stent, right frontal CVA with left-sided weakness hypertension, diabetes, anemia chronic disease, schizophrenia/bipolar disorder, who presented to the ED after an episode of vomiting during the last phase of his dialysis on 11/11. Patient complains that towards the end of his dialysis today he started having abdominal pain but he did not vomit. Patient had significant respiratory distress upon arrival. At the time of this interview patient was on nonrebreather with [address] abdomen/pelvis revealed a hiatal hernia, atrophic kidneys and bilateral infiltrates likely from aspiration. White Blood cell count 12,000. Lactate was 6.8. Patient became acutely hypotensive on the floor requiring initiation of peripheral vasopressors. Due to his underlying respiratory failure, patient required emergent intubation due to acute hypoxemic respiratory failure due to aspiration with severe sepsis 11/12 Patient is sedated with Diprivan and Versed. Remains on 3 pressors ( Levophed down 11 mics, Neosyn 90 mics, Vasopressin 0.04). Afebrile. 11/13 Patient remains intubated with Diprivan and sedated. Off Levophed and Versed. Neosyn down 50 mics and on Vasopressin. 11/14 Patient is off all pressors and off sedation. s/p transfusion 1unit PRBC yesterday Hgb 7.9 last night post transfusion. Afebrile. 11/15 No events overnight. Remains intubated and on low dose Diprivan infusion. Afebrile. For EGD&colonoscopy today. 11/16 Patient was extubated yesterday on 3L oxygen with good sats. Awake, alert. Afebrile for HD today. 11/17: Breathing comfortably on nasal cannula with oxygen saturation 95% on 3L NC , more lethargic but arousable for simple commands on right side. Normal WBC. Moves right side Objective Vital Signs Date Time Temp Pulse Resp B/P (MAP) Pulse Ox O2 Delivery O2 Flow Rate FiO2 11/17/16 12:00 82 11/17/16 08:15 95 Nasal Cannula 3.00 11/17/16 08:00 98.5 18 104/55 (71) 11/16/16 20:45 21 Intake and Output 11/17/16 11/17/16 11/18/16 08:00 16:00 00:00 Intake Total 100 ml Balance 100 ml Result Diagram: 11/17/16 0545 11/17/16 0545 Imaging Last Impressions Chest X-Ray 11/14/16 0000 Signed Impressions: Service Date/Time: Monday, November 14, 2016 14:11 - CONCLUSION: 1. ETT at the level of the clavicles. NGT beyond the GE junction. 2. Stable examination with patchy bilateral lower lung zone airspace disease and probable small left pleural effusion. Pako Multani MD Abdomen/Pelvis CT 11/11/16 0000 Signed Impressions: Service Date/Time: October 16:00 - CONCLUSION: Bilateral lower lobe infiltrates left greater than right. Atrophic kidneys without evidence of obstruction. Moderate-sized hiatal hernia. Ramon Jasso MD Objective Remarks GENERAL: 61-year-old male, on NC SKIN: Warm and dry. No rash HEAD: Atraumatic. Normocephalic. EYES: Pupils fixed about 3 mm. Right pupil is reactive about 3 mm to 2 mm. ENT: No nasal bleeding or discharge. Mucous membranes pink and moist. NECK: Trachea midline. No JVD. CARDIOVASCULAR: Regular rate and rhythm. S1, S2. No S4 without murmur RESPIRATORY: Few crackles appreciated bilaterally right greater than left. No wheeze.. GASTROINTESTINAL: Abdomen non tender with hypo-bowel sounds appreciated. MUSCULOSKELETAL: Left lower extremity with AV fistula/palpable thrill. Minimal peripheral edema. Bilateral hammertoes. Left upper and lower extremity contracted from prior stroke. NEUROLOGICAL: Left upper and lower extremity contracted from prior stroke. Somnolent but wakes up easily follows commands on right upper and lower extremity A/P Assessment and Plan Neuro/Psych: Metabolic encephalopathy Bipolar disorder Paranoid schizophrenia Depression Left eye blindness Insomnia Chronic narcotic use Monitor neuro status, awake and alert On mirtazapine 15 mg qhs, Risperidone 0.75 mg every 12 hours, trazodone 150 mg at night for anxiety/depression On escitalopram oxalate 20 mg at night for depression, lamotrigine 200 mg at night for psychosis On gabapentin 200 mg daily for peripheral neuropathy CV: Severe sepsis Lactic acidosis- cleared History of chronic diastolic heart failure Hypertension Dyslipidemia Coronary disease status post stent placement Peripheral vascular disease Monitor HR and BP keep MAP>65mmHg Lactic acid resolved Continue midodrine 10 mg by mouth twice a day Echo showed EF 60-65% 11/12 Resp: Acute hypoxemic respiratory failure secondary to aspiration Extubated 11/16 Continue with oxygen keep sat >92% Albuterol/ipratropium aerosols every 4 hours with albuterol nebs every 2 hours. 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 Renal: End-stage renal disease on hemodialysis Tuesday//Tuesday Hyponatremia- improving Monitor renal function, renal Dr. Kelley s/p HD 11/16 with 3L removed Left AV left AV Fistula/femoral with positive thrill Continue Sevelamer 2.4 g 3 times a day for hyperphosphatemia Heme: Anemia Leukocytosis Monitor CBC daily. s/p Transfuse 1unit PRBC 11/13 ID: Staph Epi bacteremia Pneumonia Sepsis Continue ABX( piperacillin/tazobactam, monitor for signs of infections ( Fever, WBC) BC 11/11 BC: 2/4 bottles staph Epi. ( likely contaminant) BC 11/14: NGTD Sputum cx: Proteus MSK: Chronic contractures left upper and lower extremities [facility] Physical therapy evaluate and treat Access - Utilize peripheral IV. Right femoral central line 11/11- d/c right femoral line today Prophylaxis - GI - famotidine - DVT - SCD/ heparin SQ on hold for anemia requiring blood transfusion and Hemoccult positive Palliative care is following Level 3 Continue ICU care due to encephalopathy, but protecting airway Dayton Kohli MD Nov 17, 2016 13:11
--- NOTE | 2016-11-17 15:14 | HHI.HCPN ---
Reason for visit a. To assist with evaluation and management of symptoms including: pain, dyspnea. b. To assist medical decision maker(s) with: better understanding of current medical conditions; weighing benefits/burdens of medical treatment options; making medical treatment decisions. . Subjective/Interval History Patient seen and examined in ICU. Patient was extubated on 11/16/16. He is lethargic during my visit, difficult to arouse. Mildly labored respirations, using accessory muscles. His eyes open briefly, not tracking. BP systolic 90's. On oxygen via NC. Post dialysis today, removal of 3 liters. . Family/friend interactions No family at bedside. . Advance Directives Living Will: Never completed Health Care Surrogate: Copy in medical record Durable Power of Safety Manager: Never completed Advance Directive Specifics Health Care Surrogate(s): Designation of health care names Belle White as primary HCS and Tico Sharpe as alternate HCS. . Significant change in goals: Alternate Code ACLS and intubation only. Goals remain aggressive at this time. . Objective Vital Signs Date Time Temp Pulse Resp B/P (MAP) Pulse Ox O2 Delivery O2 Flow Rate FiO2 11/17/16 14:00 74 11/17/16 12:00 82 11/17/16 12:00 98.9 82 17 108/68 (81) 99 11/17/16 10:00 85 11/17/16 08:15 95 Nasal Cannula 3.00 11/17/16 08:00 89 11/17/16 08:00 98.5 89 18 104/55 (71) 96 11/17/16 07:00 Nasal Cannula 2.00 11/17/16 06:00 89 11/17/16 04:00 98.6 78 17 100/59 (73) 100 11/17/16 04:00 78 11/17/16 02:00 73 11/17/16 00:00 98.8 76 16 84/52 (63) 99 11/17/16 00:00 76 11/16/16 22:00 88 11/16/16 20:45 94 21 11/16/16 20:00 83 11/16/16 20:00 98.7 83 24 94/50 (65) 100 11/16/16 19:00 Nasal Cannula 2.00 11/16/16 18:00 85 11/16/16 16:00 99.0 83 16 124/75 (91) 95 11/16/16 16:00 85 Intake & Output 11/17/16 11/17/16 07:00 19:00 Intake Total 100 ml Balance 100 ml IV Total 100 ml # Bowel Movements 1 Physical Exam CONSTITUTIONAL/GENERAL: This is a chronically, ill, critically ill patient. TUBES/LINES/DRAINS: Oxygen NC, PIV right wrist and FA, femoral central line, left lower extremity AV fistula +thrill. SKIN: Dressing in place left LE, Ecchymoses on upper extremities. Skin temperature appropriate. Not diaphoretic. EYES: Eyes open. CARDIOVASCULAR: Regular rate and rhythm without murmurs, gallops, or rubs. No JVD. RESPIRATORY/CHEST: Scattered course breath sounds. GASTROINTESTINAL: Abdomen soft, nondistended. No guarding. Bowel sounds hypoactive. GENITOURINARY: Without palpable bladder distension. MUSCULOSKELETAL: bilateral hammer toes. Left lower extremity AV fistula. Trace peripheral edema. Left upper and lower extremity contractures. NEUROLOGICAL: Lethargic, difficult to arouse. PSYCHIATRIC: lethargic. . Diagnostic Tests Laboratory Laboratory Tests Test 11/15/16 04:00 11/15/16 14:55 11/16/16 04:25 11/17/16 05:45 White Blood Count 8.4 TH/MM3 (4.0-11.0) 8.1 TH/MM3 (4.0-11.0) 6.5 TH/MM3 (4.0-11.0) Red Blood Count 2.87 MIL/MM3 (4.50-5.90) 2.96 MIL/MM3 (4.50-5.90) 3.07 MIL/MM3 (4.50-5.90) Hemoglobin 8.4 GM/DL (13.0-17.0) 8.8 GM/DL (13.0-17.0) 8.9 GM/DL (13.0-17.0) Hematocrit 25.4 % (39.0-51.0) 26.4 % (39.0-51.0) 27.3 % (39.0-51.0) Mean Corpuscular Volume 88.5 FL (80.0-100.0) 89.1 FL (80.0-100.0) 88.9 FL (80.0-100.0) Mean Corpuscular Hemoglobin 29.3 PG (27.0-34.0) 29.6 PG (27.0-34.0) 29.0 PG (27.0-34.0) Mean Corpuscular Hemoglobin Concent 33.1 % (32.0-36.0) 33.2 % (32.0-36.0) 32.6 % (32.0-36.0) Red Cell Distribution Width 16.3 % (11.6-17.2) 15.9 % (11.6-17.2) 16.0 % (11.6-17.2) Platelet Count 189 TH/MM3 (150-450) 218 TH/MM3 (150-450) 218 TH/MM3 (150-450) Mean Platelet Volume 8.3 FL (7.0-11.0) 7.8 FL (7.0-11.0) 8.2 FL (7.0-11.0) Neutrophils (%) (Auto) 72.9 % (16.0-70.0) 70.9 % (16.0-70.0) 63.6 % (16.0-70.0) Lymphocytes (%) (Auto) 15.1 % (9.0-44.0) 14.0 % (9.0-44.0) 20.2 % (9.0-44.0) Monocytes (%) (Auto) 9.0 % (0.0-8.0) 11.3 % (0.0-8.0) 13.0 % (0.0-8.0) Eosinophils (%) (Auto) 2.6 % (0.0-4.0) 3.5 % (0.0-4.0) 2.8 % (0.0-4.0) Basophils (%) (Auto) 0.4 % (0.0-2.0) 0.3 % (0.0-2.0) 0.4 % (0.0-2.0) Neutrophils # (Auto) 6.1 TH/MM3 (1.8-7.7) 5.7 TH/MM3 (1.8-7.7) 4.1 TH/MM3 (1.8-7.7) Lymphocytes # (Auto) 1.3 TH/MM3 (1.0-4.8) 1.1 TH/MM3 (1.0-4.8) 1.3 TH/MM3 (1.0-4.8) Monocytes # (Auto) 0.8 TH/MM3 (0-0.9) 0.9 TH/MM3 (0-0.9) 0.8 TH/MM3 (0-0.9) Eosinophils # (Auto) 0.2 TH/MM3 (0-0.4) 0.3 TH/MM3 (0-0.4) 0.2 TH/MM3 (0-0.4) Basophils # (Auto) 0.0 TH/MM3 (0-0.2) 0.0 TH/MM3 (0-0.2) 0.0 TH/MM3 (0-0.2) CBC Comment DIFF FINAL DIFF FINAL DIFF FINAL Differential Comment Blood Urea Nitrogen 37 MG/DL (7-18) 46 MG/DL (7-18) 27 MG/DL (7-18) Creatinine 5.41 MG/DL (0.60-1.30) 6.53 MG/DL (0.60-1.30) 5.17 MG/DL (0.60-1.30) Random Glucose 100 MG/DL (74-106) 67 MG/DL (74-106) 126 MG/DL (74-106) Calcium Level 8.9 MG/DL (8.5-10.1) 9.0 MG/DL (8.5-10.1) 9.0 MG/DL (8.5-10.1) Sodium Level 140 MEQ/L (136-145) 138 MEQ/L (136-145) 140 MEQ/L (136-145) Potassium Level 3.3 MEQ/L (3.5-5.1) 4.0 MEQ/L (3.5-5.1) 3.5 MEQ/L (3.5-5.1) Chloride Level 100 MEQ/L (98-107) 99 MEQ/L (98-107) 98 MEQ/L (98-107) Carbon Dioxide Level 26.4 MEQ/L (21.0-32.0) 25.3 MEQ/L (21.0-32.0) 29.9 MEQ/L (21.0-32.0) Anion Gap 14 MEQ/L (5-15) 14 MEQ/L (5-15) 12 MEQ/L (5-15) Estimat Glomerular Filtration Rate 13 ML/MIN (>89) 10 ML/MIN (>89) 14 ML/MIN (>89) Blood Gas Puncture Site RT RADIAL Blood Gas Patient Temperature 98.6 Blood Gas HCO3 24 mmol/L (22-26) Blood Gas Base Excess -0.6 mmol/L (-2-2) Blood Gas Oxygen Saturation 95 % (90-100) Arterial Blood pH 7.38 (7.380-7.420) Arterial Blood Partial Pressure CO2 42 mmHg (38-42) Arterial Blood Partial Pressure O2 107 mmHg (61-120) Arterial Blood Oxygen Content 12.2 Vol % (12.0-20.0) Arterial Blood Carboxyhemoglobin 1.9 % (0-4) Arterial Blood Methemoglobin 1.1 % (0-2) Blood Gas Hemoglobin 9.0 G/DL (12.0-16.0) Blood Gas Ventilator Setting CPAP 10/5 Blood Gas Inspired Oxygen 40 % Result Diagram: 11/17/16 0545 11/17/16 0545 Microbiology Microbiology Date/Time Source Procedure Growth Status 11/14/16 00:14 Blood Peripheral Aerobic Blood Culture - Preliminary NO GROWTH IN 3 DAYS Resulted 11/14/16 00:14 Blood Peripheral Anaerobic Blood Culture - Preliminary NO GROWTH IN 3 DAYS Resulted 11/13/16 18:00 Stool Stool Stool Occult Blood (OLIVA) - Final HEMOCCULT POSITIVE Complete 11/11/16 21:30 Sputum Endotracheal Gram Stain - Final Complete 11/11/16 21:30 Sputum Culture - Final Proteus Mirabilis Complete Imaging Last Impressions Chest X-Ray 11/14/16 0000 Signed Impressions: Service Date/Time: Monday, November 14, 2016 14:11 - CONCLUSION: 1. ETT at the level of the clavicles. NGT beyond the GE junction. 2. Stable examination with patchy bilateral lower lung zone airspace disease and probable small left pleural effusion. Pako Multani MD Abdomen/Pelvis CT 11/11/16 0000 Signed Impressions: Service Date/Time: October 16:00 - CONCLUSION: Bilateral lower lobe infiltrates left greater than right. Atrophic kidneys without evidence of obstruction. Moderate-sized hiatal hernia. Ramon Jasso MD Procedures * 11/11/16 intubated, central line placed Assessment and Plan Disease Oriented Problem List: (1) HCAP (healthcare-associated pneumonia) (2) CVA, old, hemiparesis (3) SIRS (systemic inflammatory response syndrome) (4) CAD (coronary artery disease) (5) End stage kidney disease (6) Aspiration into lower respiratory tract (7) Hemodialysis patient (8) Sepsis (9) Anemia Symptom Scale: (1) Pain 0-10 Scale: Unable to quantify (2) Dyspnea 0-10 Scale: Unable to quantify (3) Debility 0-10 Scale: Unable to quantify Pertinent Non-Medical Issues Psychosocial: . Spiritual: Alevism ozzy. Legal: Patient is currently incapacitated, uncertain if he will regain capacity. Designation of health care names Belle White as primary HCS and Tico Sharpe as alternate HCS. Ethical issues impacting care: No known concerns at this time. . Important Contacts * Belle White, daughter/ primary HCS: [phone] * Miguel Angelwinniecherelle Dell, alternate HCS: [phone] * David Peterson, brother: [phone] . Prognosis Overall prognosis poor in this patient with ongoing trajectory of decline, multiple comorbidities. Code Status: Alternative Code (ACLS and Intubation Only. ) Plan * Patient is currently incapacitated, uncertain if he will regain capacity. Designation of health care names Belle White as primary HCS and Tico Sharpe as alternate HCS. * Alternate Code: Intubation and ACLS only * Goals: Daughter desires continued aggressive care including Intubation and ACLS. She wants to speak with family and patient before considering comfort measures. * SYMPTOMS: Pain: No obvious signs of pain on exam. 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 Dyspnea: On oxygen via NC. Hypotension: off pressor support. No new medication recommendations at this time. * Palliative care will continue to follow to assist with symptom management and clarification of treatment goals as needed. . Attestation To help prompt me to consider important information that might be impacting today's encounter and assessment, information from prior notes written by myself or my colleagues may have been "brought forward" into today's note. My signature on this note, however, is an attestation that I personally performed the exam, history, and/or decision-making noted today, and, unless otherwise indicated, the interactions with patient, family, and staff as well as the review of records all occurred today. I also attest that the listed assessment and stated plan reflect my best clinical judgment today based on the combination of historical information, prior notes, and today's exam/ interactions. When time spent is documented, it refers only to time spent today by the signer, or if indicated, combined time spent today by collaborating physician/nurse practitioner. Neelam Karimi Nov 17, 2016 15:14
[2016-11-17] MEDS ORDERED: EPOETIN ALFA 10,000 UNITS/ML VIAL IV PRN (17:00)
--- NOTE | 2016-11-17 17:02 | HHI.NPPN ---
Subjective History of Present Illness 61-year-old male with history of end-stage renal disease on hemodialysis, Tuesdays, and Tuesday he was at dialysis and during the last hour he developed nausea and vomiting and thought to have aspirated. Patient is being transferred here and was hypotensive initially. He is being diagnosed with Aspiration Pneumonia, Respiratory failure and was Intubated Additional Remarks Patient is alert, not answering some questions and not following all the commands. Objective Data Data Vital Signs Date Time Temp Pulse Resp B/P (MAP) Pulse Ox O2 Delivery O2 Flow Rate FiO2 11/17/16 14:00 74 11/17/16 12:00 82 11/17/16 12:00 98.9 82 17 108/68 (81) 99 11/17/16 10:00 85 11/17/16 08:15 95 Nasal Cannula 3.00 11/17/16 08:00 89 11/17/16 08:00 98.5 89 18 104/55 (71) 96 11/17/16 07:00 Nasal Cannula 2.00 11/17/16 06:00 89 11/17/16 04:00 98.6 78 17 100/59 (73) 100 11/17/16 04:00 78 11/17/16 02:00 73 11/17/16 00:00 98.8 76 16 84/52 (63) 99 11/17/16 00:00 76 11/16/16 22:00 88 11/16/16 20:45 94 21 11/16/16 20:00 83 11/16/16 20:00 98.7 83 24 94/50 (65) 100 11/16/16 19:00 Nasal Cannula 2.00 11/16/16 18:00 85 -: 11/17/16 0545 11/17/16 0545 Physical Exam General Appearance: No Acute Distress, Comfortable Eyes Eye Exam: Pupils Equal Neck Neck Exam: Neck Supple Pulmonary Resp Exam: Decreased Bases Cardiology CV Exam: Regular, Normal Sinus Rhythm Gastrointestinal/Abdomen GI Exam: Soft, Non-Tender, Bowel Sounds Present, Distended Extremeties Extremities Exam: Trace Edema Neurologic Neuro Exam: Alert Assessment/Plan Problem List: (1) End stage kidney disease ICD Codes: N18.6 - End stage kidney disease Status: Acute Plan: patient had a dialysis treatment on Sat. Usually dialyzes TTS. Dialysis today. Continue HD in AM. (2) CAD (coronary artery disease) ICD Codes: I25.10 - CAD (coronary artery disease) Status: Acute Plan: Continue to monitor (3) Congestive heart failure (CHF) ICD Codes: I50.9 - Congestive heart failure (CHF) Status: Acute Plan: monitor and will need hemodialysis in am (4) Aspiration into lower respiratory tract ICD Codes: T17.800A - Unspecified foreign body in other parts of respiratory tract causing asphyxiation, initial encounter Status: Acute Plan: Continue to monitor 2/4 blood cultures positive. Plan BP is better, on Midodrine for low BP. Continue Zosyn and Azithromycin. Patient has history of CVA but has been verbal. HD will be in AM. Increase Epogen as Hgb. is low. Natalia Bell MD Nov 17, 2016 17:02
[2016-11-17] MEDS: MIRTAZAPINE 15 MG TAB PO SCH (20:40)
[2016-11-17] MEDS: ESCITALOPRAM OXALATE 20 MG TAB PO SCH (20:40)
[2016-11-17] MEDS: lamoTRIgine 100 MG TAB PO SCH (20:40)
[2016-11-17] MEDS: BISACODYL EC 5 MG TABEC PO SCH (20:41)
[2016-11-17] MEDS: traZODone HCL 50 MG TAB PO SCH (20:50)
[2016-11-17] MEDS: TAMSULOSIN HCL 0.4 MG CAP PO SCH (20:50)
[2016-11-18] VITALS (14 sets, daily range): BP systolic 96–133; BP diastolic 57–79; PULSE 75–92; RESP 15–21; TEMP 97.4–99.2; O2SAT 98–100
[2016-11-18] MEDS: RESP: ALBUTEROL 2.5 MG/IPRATROPIUM 0.5 MG NEB (SCH) NEB ×4 (03:45→19:46)
[2016-11-18] MEDS: CHLORHEXIDINE GLUCONATE 2 % 1 PACK (2 CLOTHS) TOP SCH ×2 (04:00→22:30)
[2016-11-18] MEDS: INSULIN ASPART SUPPLEMENTAL SCALE SQ SCH ×6 (04:00→21:00)
[2016-11-18] MEDS: PIPERACIL-TAZO 2.25 GM PREMIX 50 ML IV SCH ×3 (05:06→21:05)
[2016-11-18] MEDS: CHLORHEXIDINE 0.12% (ORAL KIT) 15 ML CUP MT SCH ×2 (08:00→20:00)
[2016-11-18] MEDS: ARTIFICIAL TEARS OPTH SOLN 15 ML BTL EACH EYE SCH (09:51)
[2016-11-18] MEDS: FAMOTIDINE 20 MG/2 ML VIAL IV PUSH SCH (09:52)
[2016-11-18] MEDS: SEVELAMER CARBONATE 800 MG TAB PO SCH ×3 (09:52→17:25)
[2016-11-18] MEDS: GABAPENTIN 100 MG CAP PO SCH (09:52)
[2016-11-18] MEDS: MIDODRINE 5 MG TAB PO SCH ×2 (09:52→21:01)
[2016-11-18] MEDS: risperiDONE 0.5 MG TAB PO SCH ×2 (09:52→21:05)
[2016-11-18] MEDS: DOCUSATE SODIUM 50 MG/SENNA 8.6 MG TAB PO SCH ×2 (09:52→21:01)
[2016-11-18] MEDS: SODIUM CHLORIDE 0.9% FLUSH 10 ML FLUSH IV FLUSH SCH ×2 (09:58→21:00)
[2016-11-18] MEDS: GELATIN 12 MM/7 MM FOAM TOP PRN (11:02)
[2016-11-18] MEDS: ALBUMIN HUMAN 25% 25 GM/100 ML BAGP IV PRN (11:02)
[2016-11-18] MEDS: SODIUM CHLOR 0.9% 1000 ML INJ 1,000 ML OTHER PRN (11:02)
--- NOTE | 2016-11-18 13:43 | HHI.CCPN ---
Subjective Remarks/Hospital Course 61-year-old AA male of admission 11/11/2016. Date of consultation 11/11/2016. Past medical history of ESRD on HD , , Tuesday , coronary artery disease S/P stent, right frontal CVA with left-sided weakness hypertension, diabetes, anemia chronic disease, schizophrenia/bipolar disorder, who presented to the ED after an episode of vomiting during the last phase of his dialysis on 11/11. Patient complains that towards the end of his dialysis today he started having abdominal pain but he did not vomit. Patient had significant respiratory distress upon arrival. At the time of this interview patient was on nonrebreather with [address] abdomen/pelvis revealed a hiatal hernia, atrophic kidneys and bilateral infiltrates likely from aspiration. White Blood cell count 12,000. Lactate was 6.8. Patient became acutely hypotensive on the floor requiring initiation of peripheral vasopressors. Due to his underlying respiratory failure, patient required emergent intubation due to acute hypoxemic respiratory failure due to aspiration with severe sepsis 11/12 Patient is sedated with Diprivan and Versed. Remains on 3 pressors ( Levophed down 11 mics, Neosyn 90 mics, Vasopressin 0.04). Afebrile. 11/13 Patient remains intubated with Diprivan and sedated. Off Levophed and Versed. Neosyn down 50 mics and on Vasopressin. 11/14 Patient is off all pressors and off sedation. s/p transfusion 1unit PRBC yesterday Hgb 7.9 last night post transfusion. Afebrile. 11/15 No events overnight. Remains intubated and on low dose Diprivan infusion. Afebrile. For EGD&colonoscopy today. 11/16 Patient was extubated yesterday on 3L oxygen with good sats. Awake, alert. Afebrile for HD today. 11/17: Breathing comfortably on nasal cannula with oxygen saturation 95% on 3L NC , more lethargic but arousable for simple commands on right side. Normal WBC. Moves right side Subjective 11/18: Currently resting in bed on nasal cannula. Occasionally yells in pain. On hemodialysis and hemodynamically stable. Objective Vital Signs Date Time Temp Pulse Resp B/P (MAP) Pulse Ox O2 Delivery O2 Flow Rate FiO2 11/18/16 12:00 85 11/18/16 12:00 97.8 20 111/62 (78) 100 11/18/16 09:11 Nasal Cannula 2.00 11/16/16 20:45 21 Intake and Output 11/18/16 11/18/16 11/19/16 08:00 16:00 00:00 Intake Total 220 ml Output Total 0 ml Balance 220 ml Result Diagram: 11/17/16 0545 11/17/16 0545 Other Results Microbiology Date/Time Source Procedure Growth Status 11/14/16 00:14 Blood Peripheral Aerobic Blood Culture - Preliminary NO GROWTH IN 4 DAYS Resulted 11/14/16 00:14 Blood Peripheral Anaerobic Blood Culture - Preliminary NO GROWTH IN 4 DAYS Resulted 11/13/16 18:00 Stool Stool Stool Occult Blood (OLIVA) - Final HEMOCCULT POSITIVE Complete 11/11/16 21:30 Sputum Endotracheal Gram Stain - Final Complete 11/11/16 21:30 Sputum Culture - Final Proteus Mirabilis Complete Imaging Last Impressions Chest X-Ray 11/14/16 0000 Signed Impressions: Service Date/Time: Monday, November 14, 2016 14:11 - CONCLUSION: 1. ETT at the level of the clavicles. NGT beyond the GE junction. 2. Stable examination with patchy bilateral lower lung zone airspace disease and probable small left pleural effusion. Pako Multani MD Abdomen/Pelvis CT 11/11/16 0000 Signed Impressions: Service Date/Time: October 16:00 - CONCLUSION: Bilateral lower lobe infiltrates left greater than right. Atrophic kidneys without evidence of obstruction. Moderate-sized hiatal hernia. Ramon Jasso MD Objective Remarks GENERAL: 61-year-old AA male, really resting in bed on NC SKIN: Warm and dry. No rash HEAD: Atraumatic. Normocephalic. EYES: Pupils left pupil minimally reactive about 3 mm. Right pupil is reactive about 3 mm to 2 mm. ENT: No nasal bleeding or discharge. Mucous membranes pink and moist. NECK: Trachea midline. No JVD. CARDIOVASCULAR: Regular rate and rhythm. S1, S2. No S4 without murmur RESPIRATORY: Few crackles appreciated bilaterally right greater than left. No wheeze.. GASTROINTESTINAL: Abdomen non tender with hypo-bowel sounds appreciated. MUSCULOSKELETAL: Left lower extremity with AV fistula/palpable thrill. Minimal peripheral edema. Bilateral hammertoes. Left upper and lower extremity contracted from prior stroke. NEUROLOGICAL: Left upper and lower extremity contracted from prior stroke. Somnolent but wakes up easily follows commands on right upper and lower extremity A/P Assessment and Plan Neuro/Psych: Metabolic encephalopathy Bipolar disorder Paranoid schizophrenia Depression Left eye blindness Insomnia Chronic narcotic use Monitor neuro status, awake and alert On mirtazapine 15 mg qhs, Risperidone 0.75 mg every 12 hours, trazodone 150 mg at night for anxiety/depression On escitalopram oxalate 20 mg at night for depression, lamotrigine 200 mg at night for psychosis On gabapentin 200 mg daily for peripheral neuropathy CV: Severe sepsis Lactic acidosis- cleared History of chronic diastolic heart failure Hypertension Dyslipidemia Coronary disease status post stent placement Peripheral vascular disease Monitor HR and BP keep MAP>65mmHg Lactic acid resolved Continue midodrine 10 mg by mouth twice a day Echo showed EF 60-65% 11/12 Resp: Acute hypoxemic respiratory failure secondary to aspiration Extubated 11/16 Continue with oxygen keep sat >92%. Currently on 3 L nasal cannula Albuterol/ipratropium aerosols every 4 hours with albuterol nebs every 2 hours. 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 and 15 units at night/home medication TSH: 1.0. Renal: End-stage renal disease on hemodialysis Tuesday//Tuesday Hyponatremia- improving Monitor renal function, renal Dr. Kelley s/p HD 11/16 with 3L removed. Hemodialysis today ongoing Left AV left AV Fistula/femoral with positive thrill Continue Sevelamer 2.4 g 3 times a day for hyperphosphatemia Heme: Anemia Leukocytosis Monitor CBC daily. s/p Transfuse 1unit PRBC 11/13 ID: Staph Epi bacteremia Pneumonia Sepsis Continue ABX( piperacillin/tazobactam, monitor for signs of infections ( Fever, WBC) BC 11/11 BC: 2/4 bottles staph Epi. ( likely contaminant) BC 11/14: NGTD Sputum cx: Proteus MSK: Chronic contractures left upper and lower extremities Hammertoes Physical therapy evaluate and treat Access - Utilize peripheral IV. Right femoral central line 11/11- d/c right femoral line 11/17 Prophylaxis - GI - famotidine - DVT - SCD/ heparin SQ on hold for anemia requiring blood transfusion and Hemoccult positive Palliative care is following Level 2 Patient is stable from a critical care medicine standpoint. Okay to transfer to hospitalist in a.m. 11/19. Jorge Dunlap MD Nov 18, 2016 13:43
--- NOTE | 2016-11-18 16:40 | HHI.HCPN ---
Reason for visit a. To assist with evaluation and management of symptoms including: pain, dyspnea. b. To assist medical decision maker(s) with: better understanding of current medical conditions; weighing benefits/burdens of medical treatment options; making medical treatment decisions. . Subjective/Interval History Patient seen and examined in ICU. Patient is awake and alert, oriented to self and person only. He tells spent the night in the longterm last night. He knows about dialysis, does not know why he is in the hospital. He does not remember being on the vent. He does not appear to He reports pain in left LE, he is unable to quantify or qualify. Afebrile. On oxygen via NC. . Family/friend interactions Spoke with sister outside the room. Medical update provided. Explained I do not feel the patient is incapacitated to make his own health care decisions, he does not seem to have insight/ judgement to health conditions. She is asking if daughter, Belle is considering hospice, my last conversation with daughter - her goals remained aggressive. . Advance Directives Living Will: Never completed Health Care Surrogate: Copy in medical record Durable Power of Shot Hole Driller: Never completed Advance Directive Specifics Health Care Surrogate(s): Designation of health care names Belle White as primary HCS and Tico Sharpe as alternate HCS. . Significant change in goals: Alt Code - Intubation and ACLS only. Goals remain aggressive. Objective Vital Signs Date Time Temp Pulse Resp B/P (MAP) Pulse Ox O2 Delivery O2 Flow Rate FiO2 11/18/16 14:00 90 11/18/16 12:00 85 11/18/16 12:00 97.8 85 20 111/62 (78) 100 11/18/16 10:00 85 11/18/16 09:11 100 Nasal Cannula 2.00 11/18/16 08:00 85 11/18/16 08:00 98.3 85 17 102/60 (74) 98 11/18/16 07:00 98 Nasal Cannula 2.00 11/18/16 06:00 88 11/18/16 04:00 83 11/18/16 04:00 98.0 83 20 96/61 (73) 99 11/18/16 02:00 81 11/18/16 00:00 97.4 75 15 103/57 (72) 99 11/18/16 00:00 75 11/17/16 22:00 83 11/17/16 21:02 100 Nasal Cannula 2.00 11/17/16 20:00 99.0 79 15 118/77 (91) 100 11/17/16 20:00 79 11/17/16 19:00 98 Nasal Cannula 2.00 11/17/16 18:00 75 Intake & Output 11/18/16 11/18/16 07:00 19:00 Intake Total 220 ml 50 ml Output Total 0 ml 2500 ml Balance 220 ml -2450 ml Intake Oral 120 ml IV Total 100 ml 50 ml Output Urine Total 0 ml Hemodialysis 2500 ml # Bowel Movements 0 Physical Exam CONSTITUTIONAL/GENERAL: This is a chronically ill patient. TUBES/LINES/DRAINS: Oxygen NC, PIV right wrist and FA, femoral central line, left lower extremity AV fistula +thrill. SKIN: Dressing in place left LE, Ecchymoses on upper extremities. Skin temperature appropriate. Not diaphoretic. EYES: Eyes open. CARDIOVASCULAR: Regular rate and rhythm without murmurs. RESPIRATORY/CHEST: Diminished breath sounds. GASTROINTESTINAL: Abdomen soft, nondistended. No guarding. Bowel sounds hypoactive. GENITOURINARY: Without palpable bladder distension. MUSCULOSKELETAL: bilateral hammer toes. Left lower extremity AV fistula. Trace peripheral edema. Left upper and lower extremity contractures. NEUROLOGICAL: Awake and alert, oriented to person in place. Tells me he spent the night in longterm last night. Answers some questions appropriately. PSYCHIATRIC: Agitated intermittently today per nursing staff. . Diagnostic Tests Laboratory Laboratory Tests Test 11/16/16 04:25 11/17/16 05:45 White Blood Count 8.1 TH/MM3 (4.0-11.0) 6.5 TH/MM3 (4.0-11.0) Red Blood Count 2.96 MIL/MM3 (4.50-5.90) 3.07 MIL/MM3 (4.50-5.90) Hemoglobin 8.8 GM/DL (13.0-17.0) 8.9 GM/DL (13.0-17.0) Hematocrit 26.4 % (39.0-51.0) 27.3 % (39.0-51.0) Mean Corpuscular Volume 89.1 FL (80.0-100.0) 88.9 FL (80.0-100.0) Mean Corpuscular Hemoglobin 29.6 PG (27.0-34.0) 29.0 PG (27.0-34.0) Mean Corpuscular Hemoglobin Concent 33.2 % (32.0-36.0) 32.6 % (32.0-36.0) Red Cell Distribution Width 15.9 % (11.6-17.2) 16.0 % (11.6-17.2) Platelet Count 218 TH/MM3 (150-450) 218 TH/MM3 (150-450) Mean Platelet Volume 7.8 FL (7.0-11.0) 8.2 FL (7.0-11.0) Neutrophils (%) (Auto) 70.9 % (16.0-70.0) 63.6 % (16.0-70.0) Lymphocytes (%) (Auto) 14.0 % (9.0-44.0) 20.2 % (9.0-44.0) Monocytes (%) (Auto) 11.3 % (0.0-8.0) 13.0 % (0.0-8.0) Eosinophils (%) (Auto) 3.5 % (0.0-4.0) 2.8 % (0.0-4.0) Basophils (%) (Auto) 0.3 % (0.0-2.0) 0.4 % (0.0-2.0) Neutrophils # (Auto) 5.7 TH/MM3 (1.8-7.7) 4.1 TH/MM3 (1.8-7.7) Lymphocytes # (Auto) 1.1 TH/MM3 (1.0-4.8) 1.3 TH/MM3 (1.0-4.8) Monocytes # (Auto) 0.9 TH/MM3 (0-0.9) 0.8 TH/MM3 (0-0.9) Eosinophils # (Auto) 0.3 TH/MM3 (0-0.4) 0.2 TH/MM3 (0-0.4) Basophils # (Auto) 0.0 TH/MM3 (0-0.2) 0.0 TH/MM3 (0-0.2) CBC Comment DIFF FINAL DIFF FINAL Differential Comment Blood Urea Nitrogen 46 MG/DL (7-18) 27 MG/DL (7-18) Creatinine 6.53 MG/DL (0.60-1.30) 5.17 MG/DL (0.60-1.30) Random Glucose 67 MG/DL (74-106) 126 MG/DL (74-106) Calcium Level 9.0 MG/DL (8.5-10.1) 9.0 MG/DL (8.5-10.1) Sodium Level 138 MEQ/L (136-145) 140 MEQ/L (136-145) Potassium Level 4.0 MEQ/L (3.5-5.1) 3.5 MEQ/L (3.5-5.1) Chloride Level 99 MEQ/L (98-107) 98 MEQ/L (98-107) Carbon Dioxide Level 25.3 MEQ/L (21.0-32.0) 29.9 MEQ/L (21.0-32.0) Anion Gap 14 MEQ/L (5-15) 12 MEQ/L (5-15) Estimat Glomerular Filtration Rate 10 ML/MIN (>89) 14 ML/MIN (>89) Result Diagram: 11/17/16 0545 11/17/16 0545 Microbiology Microbiology Date/Time Source Procedure Growth Status 11/14/16 00:14 Blood Peripheral Aerobic Blood Culture - Preliminary NO GROWTH IN 4 DAYS Resulted 11/14/16 00:14 Blood Peripheral Anaerobic Blood Culture - Preliminary NO GROWTH IN 4 DAYS Resulted 11/13/16 18:00 Stool Stool Stool Occult Blood (OLIVA) - Final HEMOCCULT POSITIVE Complete 11/11/16 21:30 Sputum Endotracheal Gram Stain - Final Complete 11/11/16 21:30 Sputum Culture - Final Proteus Mirabilis Complete Imaging Last Impressions Chest X-Ray 11/14/16 0000 Signed Impressions: Service Date/Time: Monday, November 14, 2016 14:11 - CONCLUSION: 1. ETT at the level of the clavicles. NGT beyond the GE junction. 2. Stable examination with patchy bilateral lower lung zone airspace disease and probable small left pleural effusion. Pako Multani MD Abdomen/Pelvis CT 11/11/16 0000 Signed Impressions: Service Date/Time: October 16:00 - CONCLUSION: Bilateral lower lobe infiltrates left greater than right. Atrophic kidneys without evidence of obstruction. Moderate-sized hiatal hernia. Ramon Jasso MD Procedures * 11/11/16 intubated, central line placed Assessment and Plan Disease Oriented Problem List: (1) HCAP (healthcare-associated pneumonia) (2) CVA, old, hemiparesis (3) SIRS (systemic inflammatory response syndrome) (4) CAD (coronary artery disease) (5) End stage kidney disease (6) Aspiration into lower respiratory tract (7) Hemodialysis patient (8) Sepsis (9) Anemia Symptom Scale: (1) Pain 0-10 Scale: Unable to quantify (2) Dyspnea 0-10 Scale: Unable to quantify (3) Debility 0-10 Scale: Unable to quantify Pertinent Non-Medical Issues Psychosocial: . Spiritual: Evangelical ozzy. Legal: Patient is currently incapacitated, uncertain if he will regain capacity. Designation of health care names Belle White as primary HCS and Tico Sharpe as alternate HCS. Ethical issues impacting care: No known concerns at this time. . Important Contacts * Belle White, daughter/ primary HCS: [phone] * Tico Dell, alternate HCS: [phone] * David Peterson, brother: [phone] . Prognosis Overall prognosis poor in this patient with ongoing trajectory of decline, multiple comorbidities. Code Status: Alternative Code (ACLS and Intubation Only. ) Plan * Patient is currently incapacitated, uncertain if he will regain capacity. Designation of health care names Belle White as primary HCS and Tico Sharpe as alternate HCS. * Alternate Code: Intubation and ACLS only * Goals: Daughter desires continued aggressive care including Intubation and ACLS. She wants to speak with family and patient before considering comfort measures. Spoke with sister outside room to provide update. * SYMPTOMS: Pain: No obvious signs of pain on exam. 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 Dyspnea: On oxygen via NC. Hypotension: off pressor support. No new medication recommendations at this time. * Palliative care will continue to follow to assist with symptom management and clarification of treatment goals as needed. . Attestation To help prompt me to consider important information that might be impacting today's encounter and assessment, information from prior notes written by myself or my colleagues may have been "brought forward" into today's note. My signature on this note, however, is an attestation that I personally performed the exam, history, and/or decision-making noted today, and, unless otherwise indicated, the interactions with patient, family, and staff as well as the review of records all occurred today. I also attest that the listed assessment and stated plan reflect my best clinical judgment today based on the combination of historical information, prior notes, and today's exam/ interactions. When time spent is documented, it refers only to time spent today by the signer, or if indicated, combined time spent today by collaborating physician/nurse practitioner. Neelam Karimi Nov 18, 2016 16:40
[2016-11-18] MEDS: traZODone HCL 50 MG TAB PO SCH (21:00)
[2016-11-18] MEDS: lamoTRIgine 100 MG TAB PO SCH (21:00)
[2016-11-18] MEDS: ESCITALOPRAM OXALATE 20 MG TAB PO SCH (21:00)
[2016-11-18] MEDS: FAMOTIDINE 20 MG TAB PO SCH (21:00)
[2016-11-18] MEDS: MIRTAZAPINE 15 MG TAB PO SCH (21:01)
[2016-11-18] MEDS: TAMSULOSIN HCL 0.4 MG CAP PO SCH (21:01)
[2016-11-18] MEDS: BISACODYL EC 5 MG TABEC PO SCH (21:01)
--- NOTE | 2016-11-18 21:25 | HHI.NPPN ---
Subjective History of Present Illness 61-year-old male with history of end-stage renal disease on hemodialysis, Tuesdays, and Tuesday he was at dialysis and during the last hour he developed nausea and vomiting and thought to have aspirated. Patient is being transferred here and was hypotensive initially. He is being diagnosed with Aspiration Pneumonia, Respiratory failure and was Intubated Additional Remarks Patient is alert, seen in early afternoon after HD, complaining of leg pain. Objective Data Data 11/18/16 11/19/16 19:00 07:00 Intake Total 758 ml Output Total 2500 ml Balance -1742 ml Intake Oral 708 ml IV Total 50 ml Hemodialysis 2500 ml # Bowel Movements 3 Vital Signs Date Time Temp Pulse Resp B/P (MAP) Pulse Ox O2 Delivery O2 Flow Rate FiO2 11/18/16 19:46 99 11/18/16 18:00 85 11/18/16 16:00 99.2 87 21 133/79 (97) 100 11/18/16 16:00 87 11/18/16 14:00 90 11/18/16 12:00 85 11/18/16 12:00 97.8 85 20 111/62 (78) 100 11/18/16 10:00 85 11/18/16 09:11 100 Nasal Cannula 2.00 11/18/16 08:00 85 11/18/16 08:00 98.3 85 17 102/60 (74) 98 11/18/16 07:00 98 Nasal Cannula 2.00 11/18/16 06:00 88 11/18/16 04:00 83 11/18/16 04:00 98.0 83 20 96/61 (73) 99 11/18/16 02:00 81 11/18/16 00:00 97.4 75 15 103/57 (72) 99 11/18/16 00:00 75 11/17/16 22:00 83 -: 11/17/16 0545 11/17/16 0545 Physical Exam General Appearance: No Acute Distress, Comfortable Eyes Eye Exam: Pupils Equal Neck Neck Exam: Neck Supple Pulmonary Resp Exam: Decreased Bases Cardiology CV Exam: Regular, Normal Sinus Rhythm Gastrointestinal/Abdomen GI Exam: Soft, Non-Tender, Bowel Sounds Present, Distended Extremeties Extremities Exam: Trace Edema Neurologic Neuro Exam: Alert Assessment/Plan Problem List: (1) End stage kidney disease ICD Codes: N18.6 - End stage kidney disease Status: Acute Plan: patient had a dialysis treatment on Sat. Usually dialyzes TTS. Dialysis today. Continue HD in AM. (2) CAD (coronary artery disease) ICD Codes: I25.10 - CAD (coronary artery disease) Status: Acute Plan: Continue to monitor (3) Congestive heart failure (CHF) ICD Codes: I50.9 - Congestive heart failure (CHF) Status: Acute Plan: monitor and will need hemodialysis in am (4) Aspiration into lower respiratory tract ICD Codes: T17.800A - Unspecified foreign body in other parts of respiratory tract causing asphyxiation, initial encounter Status: Acute Plan: Continue to monitor 2/4 blood cultures positive. Plan BP is better, on Midodrine for low BP. Continue Zosyn and Azithromycin. Patient has history of CVA but has been verbal. HD done and 2.5 liters removed , tolerated well. On Epogen for anemia. Add Gabapentin. Natalia Bell MD Nov 18, 2016 21:25
[2016-11-19] VITALS (13 sets, daily range): BP systolic 92–133; BP diastolic 51–85; PULSE 76–93; RESP 18–30; TEMP 93–98.6; O2SAT 91–97
[2016-11-19] MEDS: RESP: ALBUTEROL 2.5 MG/IPRATROPIUM 0.5 MG NEB (SCH) NEB ×4 (03:06→20:15)
[2016-11-19] MEDS ORDERED: HALOPERIDOL LACTATE 5 MG/ML AMP IV PRN (03:30)
[2016-11-19] MEDS: PIPERACIL-TAZO 2.25 GM PREMIX 50 ML IV SCH ×3 (04:49→23:24)
[2016-11-19] MEDS: CHLORHEXIDINE 0.12% (ORAL KIT) 15 ML CUP MT SCH ×2 (08:00→20:00)
[2016-11-19] MEDS: GABAPENTIN 100 MG CAP PO SCH ×4 (09:00→18:00)
[2016-11-19] MEDS: DOCUSATE SODIUM 50 MG/SENNA 8.6 MG TAB PO SCH ×2 (09:00→21:33)
[2016-11-19] MEDS: SEVELAMER CARBONATE 800 MG TAB PO SCH ×3 (09:30→18:30)
[2016-11-19 10:28] LABS: HEMATOCRIT 28.8 % (39.0-51.0); MEAN CELL VOLUME 89.9 FL (80.0-100.0); MEAN CORPUSCULAR HEMOGLOBIN 28.6 PG (27.0-34.0); MEAN CORPUSCULAR HGB CONC 31.8 % (32.0-36.0); PLATELET COUNT 285 TH/MM3 (150-450); RED BLOOD COUNT 3.21 MIL/MM3 (4.50-5.90); RED CELL DISTRIBUTION WIDTH 15.9 % (11.6-17.2); REVIEW FLAG FINAL; WHITE BLOOD COUNT 6.6 TH/MM3 (4.0-11.0)
[2016-11-19 11:02] LABS: BICARBONATE 29.9 MEQ/L (21.0-32.0)
[2016-11-19] MEDS: INSULIN ASPART SUPPLEMENTAL SCALE SQ SCH ×3 (12:00→21:00)
[2016-11-19] MEDS: SODIUM CHLORIDE 0.9% FLUSH 10 ML FLUSH IV FLUSH SCH ×2 (13:09→21:31)
[2016-11-19] MEDS: risperiDONE 0.5 MG TAB PO SCH ×2 (13:11→21:29)
[2016-11-19] MEDS: MIDODRINE 5 MG TAB PO SCH ×2 (13:11→21:30)
--- NOTE | 2016-11-19 16:16 | HHI.NPPN ---
Subjective History of Present Illness 61-year-old male with history of end-stage renal disease on hemodialysis, Tuesdays, and Tuesday he was at dialysis and during the last hour he developed nausea and vomiting and thought to have aspirated. Patient is being transferred here and was hypotensive initially. He is being diagnosed with Aspiration Pneumonia, Respiratory failure and was Intubated Additional Remarks Patient is alert, not fully oriented but not in distress. Objective Data Data Vital Signs Date Time Temp Pulse Resp B/P (MAP) Pulse Ox O2 Delivery O2 Flow Rate FiO2 11/19/16 14:00 80 11/19/16 12:00 98.3 88 20 92/51 (65) 97 11/19/16 12:00 80 11/19/16 12:00 97 Nasal Cannula 2.00 11/19/16 08:39 92 11/19/16 08:00 98.1 76 20 105/59 (74) 97 11/19/16 08:00 83 11/19/16 06:00 83 11/19/16 04:00 91 11/19/16 04:00 97.6 91 30 119/85 (96) 96 11/19/16 02:00 93 11/19/16 00:00 93.0 93 27 133/82 (99) 94 11/19/16 00:00 93 11/18/16 22:00 92 11/18/16 20:00 98.7 80 17 133/75 (94) 98 11/18/16 20:00 80 11/18/16 19:46 99 11/18/16 19:00 98 Nasal Cannula 2.00 11/18/16 18:00 85 -: 11/19/16 1009 11/19/16 1009 Physical Exam General Appearance: No Acute Distress, Comfortable Eyes Eye Exam: Pupils Equal Neck Neck Exam: Neck Supple Pulmonary Resp Exam: Decreased Bases Cardiology CV Exam: Regular, Normal Sinus Rhythm Gastrointestinal/Abdomen GI Exam: Soft, Non-Tender, Bowel Sounds Present, Distended Extremeties Extremities Exam: Trace Edema Neurologic Neuro Exam: Alert Assessment/Plan Problem List: (1) End stage kidney disease ICD Codes: N18.6 - End stage kidney disease Status: Acute Plan: patient had a dialysis treatment on Sat. Usually dialyzes TTS. Dialysis today. Continue HD in AM. (2) CAD (coronary artery disease) ICD Codes: I25.10 - CAD (coronary artery disease) Status: Acute Plan: Continue to monitor (3) Congestive heart failure (CHF) ICD Codes: I50.9 - Congestive heart failure (CHF) Status: Acute Plan: monitor and will need hemodialysis in am (4) Aspiration into lower respiratory tract ICD Codes: T17.800A - Unspecified foreign body in other parts of respiratory tract causing asphyxiation, initial encounter Status: Acute Plan: Continue to monitor 2/4 blood cultures positive. Plan BP is better but has been chronically low, on Midodrine for low BP. Continue Zosyn and Azithromycin. Patient has history of CVA but has been verbal. HD done and 2.5 liters removed , tolerated well. On Epogen for anemia. On Gabapentin for neuropathy. HD will be in AM. Natalia Bell MD Nov 19, 2016 16:16
--- NOTE | 2016-11-19 16:20 | HHI.PR ---
Subjective Remarks Patient woke up to voice, denied eating and pain No fever or chills overnight Objective Vitals Vital Signs Date Time Temp Pulse Resp B/P (MAP) Pulse Ox O2 Delivery O2 Flow Rate FiO2 11/19/16 14:00 80 11/19/16 12:00 98.3 88 20 92/51 (65) 97 11/19/16 12:00 80 11/19/16 12:00 97 Nasal Cannula 2.00 11/19/16 08:39 92 11/19/16 08:00 98.1 76 20 105/59 (74) 97 11/19/16 08:00 83 11/19/16 06:00 83 11/19/16 04:00 91 11/19/16 04:00 97.6 91 30 119/85 (96) 96 11/19/16 02:00 93 11/19/16 00:00 93.0 93 27 133/82 (99) 94 11/19/16 00:00 93 11/18/16 22:00 92 11/18/16 20:00 98.7 80 17 133/75 (94) 98 11/18/16 20:00 80 11/18/16 19:46 99 11/18/16 19:00 98 Nasal Cannula 2.00 11/18/16 18:00 85 I/O 11/18/16 11/18/16 11/18/16 11/19/16 11/19/16 11/19/16 07:00 15:00 23:00 07:00 15:00 23:00 Intake Total 220 ml 758 ml 220 ml Output Total 0 ml 2500 ml 0 ml Balance 220 ml -2500 ml 758 ml 220 ml Intake Oral 120 ml 708 ml 120 ml IV Total 100 ml 50 ml 100 ml Output Urine Total 0 ml 0 ml Hemodialysis 2500 ml # Bowel Movements 0 3 2 Result Diagram: 11/19/16 1009 11/19/16 1009 Objective Remarks GENERAL: 34 years old male resting in bed comfortably SKIN: Warm and dry. No rash HEAD: Atraumatic. Normocephalic. EYES: ENT: No nasal bleeding or discharge. Mucous membranes pink and moist. NECK: Trachea midline. No JVD. CARDIOVASCULAR: Regular rate and rhythm. without murmur RESPIRATORY: Few crackles appreciated bilaterally right greater than left. No wheeze.. GASTROINTESTINAL: Abdomen non tender with hypo-bowel sounds appreciated. MUSCULOSKELETAL: Left lower extremity with AV fistula/palpable thrill. Minimal peripheral edema. Left upper and lower extremity contracted from prior stroke. NEUROLOGICAL: Somnolent wake up to voice, Left upper and lower extremity contracted due to previous stroke. follows simple commands A/P Problem List: (1) Aspiration into lower respiratory tract ICD Code: T17.800A - Unspecified foreign body in other parts of respiratory tract causing asphyxiation, initial encounter Status: Acute (2) End stage kidney disease ICD Code: N18.6 - End stage kidney disease Status: Acute (3) CAD (coronary artery disease) ICD Code: I25.10 - CAD (coronary artery disease) Status: Acute (4) DM type 2 (diabetes mellitus, type 2) ICD Code: E11.9 - DM type 2 (diabetes mellitus, type 2) Status: Acute Assessment and Plan 61-year-old AA male of admission 11/11/2016. Date of consultation 11/11/2016. Past medical history of ESRD on HD , , Tuesday , coronary artery disease S/P stent, right frontal CVA with left-sided weakness hypertension, diabetes, anemia chronic disease, schizophrenia/bipolar disorder, who presented to the ED after an episode of vomiting during the last phase of his dialysis on 11/11. Patient complains that towards the end of his dialysis today he started having abdominal pain but he did not vomit. Patient had significant respiratory distress upon arrival. At the time of this interview patient was on nonrebreather with [address] abdomen/pelvis revealed a hiatal hernia, atrophic kidneys and bilateral infiltrates likely from aspiration. White Blood cell count 12,000. Lactate was 6.8. Patient became acutely hypotensive on the floor requiring initiation of peripheral vasopressors. Due to his underlying respiratory failure, patient required emergent intubation due to acute hypoxemic respiratory failure due to aspiration with severe sepsis 11/12 Patient is sedated with Diprivan and Versed. Remains on 3 pressors ( Levophed down 11 mics, Neosyn 90 mics, Vasopressin 0.04). Afebrile. 11/13 Patient remains intubated with Diprivan and sedated. Off Levophed and Versed. Neosyn down 50 mics and on Vasopressin. 11/14 Patient is off all pressors and off sedation. s/p transfusion 1unit PRBC yesterday Hgb 7.9 last night post transfusion. Afebrile. 11/15 No events overnight. Remains intubated and on low dose Diprivan infusion. Afebrile. For EGD&colonoscopy today. 11/16 Patient was extubated yesterday on 3L oxygen with good sats. Awake, alert. Afebrile for HD today. 11/17: Breathing comfortably on nasal cannula with oxygen saturation 95% on 3L NC , more lethargic but arousable for simple commands on right side. Normal WBC. Moves right side 11/19: continue current care , repeat bcx neg for 5 days , on zithromax & zosyn Metabolic encephalopathy Bipolar disorder Paranoid schizophrenia Depression Left eye blindness Insomnia Chronic narcotic use Monitor neuro status, awake and alert On mirtazapine 15 mg qhs, Risperidone 0.75 mg every 12 hours, trazodone 150 mg at night for anxiety/depression On escitalopram oxalate 20 mg at night for depression, lamotrigine 200 mg at night for psychosis On gabapentin 200 mg daily for peripheral neuropathy Severe sepsis Lactic acidosis- cleared History of chronic diastolic heart failure Hypertension Dyslipidemia Coronary disease status post stent placement Peripheral vascular disease Monitor HR and BP keep MAP>65mmHg Lactic acid resolved Continue midodrine 10 mg by mouth twice a day Echo showed EF 60-65% 11/12 Acute hypoxemic respiratory failure secondary to aspiration Extubated 11/16 Continue with oxygen keep sat >92%. Currently on 3 L nasal cannula Albuterol/ipratropium aerosols every 4 hours with albuterol nebs every 2 hours. 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 and 15 units at night/home medication TSH: 1.0. End-stage renal disease on hemodialysis Tuesday//Tuesday Hyponatremia- improving Monitor renal function, renal Dr. Kelley s/p HD 11/16 with 3L removed. Hemodialysis today ongoing Left AV left AV Fistula/femoral with positive thrill Continue Sevelamer 2.4 g 3 times a day for hyperphosphatemia Anemia Leukocytosis Monitor CBC daily. s/p Transfuse 1unit PRBC 11/13 Staph Epi bacteremia Pneumonia Sepsis Continue ABX( piperacillin/tazobactam, monitor for signs of infections ( Fever, WBC) BC 11/11 BC: 2/4 bottles staph Epi. ( likely contaminant) 11/14: NGTD Sputum cx: Proteus Chronic contractures left upper and lower extremities [facility] Physical therapy evaluate and treat Access - Utilize peripheral IV. Right femoral central line 11/11- d/c right femoral line 11/17 Prophylaxis - GI - famotidine - DVT - SCD/ heparin SQ on hold for anemia requiring blood transfusion and Hemoccult positive Latasha Corona MD Nov 19, 2016 16:20
[2016-11-19] MEDS: traZODone HCL 50 MG TAB PO SCH (21:31)
[2016-11-19] MEDS: ESCITALOPRAM OXALATE 20 MG TAB PO SCH (21:32)
[2016-11-19] MEDS: MIRTAZAPINE 15 MG TAB PO SCH (21:32)
[2016-11-19] MEDS: lamoTRIgine 100 MG TAB PO SCH (21:32)
[2016-11-19] MEDS: BISACODYL EC 5 MG TABEC PO SCH (21:32)
[2016-11-19] MEDS: FAMOTIDINE 20 MG TAB PO SCH (21:32)
[2016-11-19] MEDS: TAMSULOSIN HCL 0.4 MG CAP PO SCH (21:32)
[2016-11-20] VITALS (14 sets, daily range): BP systolic 90–123; BP diastolic 54–69; PULSE 71–95; RESP 14–23; TEMP 98.2–98.8; O2SAT 92–100
[2016-11-20] MEDS: RESP: ALBUTEROL 2.5 MG/IPRATROPIUM 0.5 MG NEB (SCH) NEB ×2 (03:47→09:35)
[2016-11-20] MEDS: CHLORHEXIDINE GLUCONATE 2 % 1 PACK (2 CLOTHS) TOP SCH (04:00)
[2016-11-20] MEDS: PIPERACIL-TAZO 2.25 GM PREMIX 50 ML IV SCH ×3 (05:18→22:54)
[2016-11-20] MEDS: SODIUM CHLORIDE 0.9% FLUSH 10 ML FLUSH IV FLUSH SCH ×2 (07:40→21:07)
[2016-11-20] MEDS: CHLORHEXIDINE 0.12% (ORAL KIT) 15 ML CUP MT SCH ×2 (07:40→20:00)
[2016-11-20] MEDS: INSULIN ASPART SUPPLEMENTAL SCALE SQ SCH ×4 (08:00→21:00)
[2016-11-20] MEDS: DOCUSATE SODIUM 50 MG/SENNA 8.6 MG TAB PO SCH ×2 (11:33→21:08)
[2016-11-20] MEDS: GABAPENTIN 100 MG CAP PO SCH ×3 (11:33→17:02)
--- NOTE | 2016-11-20 11:33 | HHI.NPPN ---
Subjective History of Present Illness 61-year-old male with history of end-stage renal disease on hemodialysis, Tuesdays, and Tuesday he was at dialysis and during the last hour he developed nausea and vomiting and thought to have aspirated. Patient is being transferred here and was hypotensive initially. He is being diagnosed with Aspiration Pneumonia, Respiratory failure and was Intubated Additional Remarks Patient is alert, seen during HD, feeling better, BP is still Systolic close to 90-100. Objective Data Data Vital Signs Date Time Temp Pulse Resp B/P (MAP) Pulse Ox O2 Delivery O2 Flow Rate FiO2 11/20/16 10:00 81 11/20/16 09:35 97 21 11/20/16 08:00 95 11/20/16 08:00 98.8 93 20 98/69 (79) 96 11/20/16 07:00 93 Room Air 11/20/16 06:00 74 11/20/16 04:00 98.2 82 14 123/69 (87) 97 11/20/16 04:00 82 11/20/16 02:00 71 11/20/16 00:00 98.4 75 16 95/54 (68) 92 11/20/16 00:00 75 11/19/16 22:00 81 11/19/16 20:15 94 11/19/16 20:00 98.6 76 18 92/53 (66) 91 11/19/16 20:00 76 11/19/16 19:00 91 Room Air 11/19/16 18:00 80 11/19/16 16:00 98.4 80 20 92/53 (66) 97 11/19/16 16:00 80 11/19/16 14:00 80 11/19/16 12:00 98.3 88 20 92/51 (65) 97 11/19/16 12:00 80 11/19/16 12:00 97 Nasal Cannula 2.00 -: 11/19/16 1009 11/19/16 1009 Physical Exam General Appearance: No Acute Distress, Comfortable Eyes Eye Exam: Pupils Equal Neck Neck Exam: Neck Supple Pulmonary Resp Exam: Decreased Bases Cardiology CV Exam: Regular, Normal Sinus Rhythm Gastrointestinal/Abdomen GI Exam: Soft, Non-Tender, Bowel Sounds Present, Distended Extremeties Extremities Exam: Trace Edema Neurologic Neuro Exam: Alert Assessment/Plan Problem List: (1) End stage kidney disease ICD Codes: N18.6 - End stage kidney disease Status: Acute Plan: patient had a dialysis treatment on Sat. Usually dialyzes TTS. Dialysis today. Continue HD in AM. (2) CAD (coronary artery disease) ICD Codes: I25.10 - CAD (coronary artery disease) Status: Acute Plan: Continue to monitor (3) Congestive heart failure (CHF) ICD Codes: I50.9 - Congestive heart failure (CHF) Status: Acute Plan: monitor and will need hemodialysis in am (4) Aspiration into lower respiratory tract ICD Codes: T17.800A - Unspecified foreign body in other parts of respiratory tract causing asphyxiation, initial encounter Status: Acute Plan: Continue to monitor 2/4 blood cultures positive. Plan BP is better but has been chronically low, on Midodrine for low BP. Continue Zosyn and Azithromycin. Patient has history of CVA but has been verbal. HD done and 2.5 liters removed , tolerated well. On Epogen for anemia. On Gabapentin for neuropathy. HD now, remove fluid as tolerated. Ambien for sleep. Natalia Bell MD Nov 20, 2016 11:33
[2016-11-20] MEDS: risperiDONE 0.5 MG TAB PO SCH ×2 (11:34→21:08)
[2016-11-20] MEDS: MIDODRINE 5 MG TAB PO SCH ×2 (11:35→21:08)
[2016-11-20] MEDS: SEVELAMER CARBONATE 800 MG TAB PO SCH ×2 (11:35→17:02)
--- NOTE | 2016-11-20 11:38 | HHI.PR ---
Subjective Remarks "I'm feeling well " Patient was sleeping and woke up to voice Denied complaint, he had a hemodialysis just now, discussed with the industrial electrical technician stated they took 2 L Objective Vitals Vital Signs Date Time Temp Pulse Resp B/P (MAP) Pulse Ox O2 Delivery O2 Flow Rate FiO2 11/20/16 10:00 81 11/20/16 09:35 97 21 11/20/16 08:00 95 11/20/16 08:00 98.8 93 20 98/69 (79) 96 11/20/16 07:00 93 Room Air 11/20/16 06:00 74 11/20/16 04:00 98.2 82 14 123/69 (87) 97 11/20/16 04:00 82 11/20/16 02:00 71 11/20/16 00:00 98.4 75 16 95/54 (68) 92 11/20/16 00:00 75 11/19/16 22:00 81 11/19/16 20:15 94 11/19/16 20:00 98.6 76 18 92/53 (66) 91 11/19/16 20:00 76 11/19/16 19:00 91 Room Air 11/19/16 18:00 80 11/19/16 16:00 98.4 80 20 92/53 (66) 97 11/19/16 16:00 80 11/19/16 14:00 80 11/19/16 12:00 98.3 88 20 92/51 (65) 97 11/19/16 12:00 80 11/19/16 12:00 97 Nasal Cannula 2.00 I/O 11/19/16 11/19/16 11/19/16 11/20/16 11/20/16 11/20/16 07:00 15:00 23:00 07:00 15:00 23:00 Intake Total 220 ml 160 ml Output Total 0 ml 0 ml 2000 ml Balance 220 ml 160 ml -2000 ml Intake Oral 120 ml 60 ml IV Total 100 ml 100 ml Output Urine Total 0 ml 0 ml Hemodialysis 2000 ml # Bowel Movements 2 1 Result Diagram: 11/19/16 1009 11/19/16 1009 Objective Remarks GENERAL: 34 years old male resting in bed comfortably SKIN: Warm and dry. No rash HEAD: Atraumatic. Normocephalic. EYES: ENT: No nasal bleeding or discharge. Mucous membranes pink and moist. NECK: Trachea midline. No JVD. CARDIOVASCULAR: Regular rate and rhythm. without murmur RESPIRATORY: Few crackles appreciated bilaterally right greater than left. No wheeze.. GASTROINTESTINAL: Abdomen non tender with hypo-bowel sounds appreciated. MUSCULOSKELETAL: Left lower extremity with AV fistula/palpable thrill. Minimal peripheral edema. Left upper and lower extremity contracted from prior stroke. NEUROLOGICAL: Somnolent wake up to voice, Left upper and lower extremity contracted due to previous stroke. follows simple commands A/P Problem List: (1) Aspiration into lower respiratory tract ICD Code: T17.800A - Unspecified foreign body in other parts of respiratory tract causing asphyxiation, initial encounter Status: Acute (2) End stage kidney disease ICD Code: N18.6 - End stage kidney disease Status: Acute (3) CAD (coronary artery disease) ICD Code: I25.10 - CAD (coronary artery disease) Status: Acute (4) DM type 2 (diabetes mellitus, type 2) ICD Code: E11.9 - DM type 2 (diabetes mellitus, type 2) Status: Acute Assessment and Plan 61-year-old AA male of admission 11/11/2016. Date of consultation 11/11/2016. Past medical history of ESRD on HD , , Tuesday , coronary artery disease S/P stent, right frontal CVA with left-sided weakness hypertension, diabetes, anemia chronic disease, schizophrenia/bipolar disorder, who presented to the ED after an episode of vomiting during the last phase of his dialysis on 11/11. Patient complains that towards the end of his dialysis today he started having abdominal pain but he did not vomit. Patient had significant respiratory distress upon arrival. At the time of this interview patient was on nonrebreather with [address] abdomen/pelvis revealed a hiatal hernia, atrophic kidneys and bilateral infiltrates likely from aspiration. White Blood cell count 12,000. Lactate was 6.8. Patient became acutely hypotensive on the floor requiring initiation of peripheral vasopressors. Due to his underlying respiratory failure, patient required emergent intubation due to acute hypoxemic respiratory failure due to aspiration with severe sepsis 11/12 Patient is sedated with Diprivan and Versed. Remains on 3 pressors ( Levophed down 11 mics, Neosyn 90 mics, Vasopressin 0.04). Afebrile. 11/13 Patient remains intubated with Diprivan and sedated. Off Levophed and Versed. Neosyn down 50 mics and on Vasopressin. 11/14 Patient is off all pressors and off sedation. s/p transfusion 1unit PRBC yesterday Hgb 7.9 last night post transfusion. Afebrile. 11/15 No events overnight. Remains intubated and on low dose Diprivan infusion. Afebrile. For EGD&colonoscopy today. 11/16 Patient was extubated yesterday on 3L oxygen with good sats. Awake, alert. Afebrile for HD today. 11/17: Breathing comfortably on nasal cannula with oxygen saturation 95% on 3L NC , more lethargic but arousable for simple commands on right side. Normal WBC. Moves right side 11/19: continue current care , repeat bcx neg for 5 days , on zithromax & zosyn 11/20: Patient had hemodialysis today removed 2 L, repeat BMP in a.m. Metabolic encephalopathy Bipolar disorder Paranoid schizophrenia Depression Left eye blindness Insomnia Chronic narcotic use Monitor neuro status, awake and alert On mirtazapine 15 mg qhs, Risperidone 0.75 mg every 12 hours, trazodone 150 mg at night for anxiety/depression On escitalopram oxalate 20 mg at night for depression, lamotrigine 200 mg at night for psychosis On gabapentin 200 mg daily for peripheral neuropathy Severe sepsis Lactic acidosis- cleared History of chronic diastolic heart failure Hypertension Dyslipidemia Coronary disease status post stent placement Peripheral vascular disease Monitor HR and BP keep MAP>65mmHg Lactic acid resolved Continue midodrine 10 mg by mouth twice a day Echo showed EF 60-65% 11/12 Acute hypoxemic respiratory failure secondary to aspiration Extubated 11/16 Continue with oxygen keep sat >92%. Currently on 3 L nasal cannula Albuterol/ipratropium aerosols every 4 hours with albuterol nebs every 2 hours. 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 and 15 units at night/home medication TSH: 1.0. End-stage renal disease on hemodialysis Tuesday//Tuesday Hyponatremia- improving Monitor renal function, renal Dr. Kelley s/p HD 11/16 with 3L removed. Hemodialysis today ongoing Left AV left AV Fistula/femoral with positive thrill Continue Sevelamer 2.4 g 3 times a day for hyperphosphatemia Anemia Leukocytosis Monitor CBC daily. s/p Transfuse 1unit PRBC 11/13 Staph Epi bacteremia Pneumonia Sepsis Continue ABX( piperacillin/tazobactam, monitor for signs of infections ( Fever, WBC) BC 11/11 BC: 2/4 bottles staph Epi. ( likely contaminant) BC 11/14: NGTD Sputum cx: Proteus Chronic contractures left upper and lower extremities [facility] Physical therapy evaluate and treat Access - Utilize peripheral IV. Right femoral central line 11/11- d/c right femoral line 11/17 Prophylaxis - GI - famotidine - DVT - SCD/ heparin SQ on hold for anemia requiring blood transfusion and Hemoccult positive Latasha Corona MD Nov 20, 2016 11:38
[2016-11-20] MEDS: MIRTAZAPINE 15 MG TAB PO SCH (21:06)
[2016-11-20] MEDS: traZODone HCL 50 MG TAB PO SCH (21:07)
[2016-11-20] MEDS: FAMOTIDINE 20 MG TAB PO SCH (21:08)
[2016-11-20] MEDS: ESCITALOPRAM OXALATE 20 MG TAB PO SCH (21:09)
[2016-11-20] MEDS: TAMSULOSIN HCL 0.4 MG CAP PO SCH (21:09)
[2016-11-20] MEDS: BISACODYL EC 5 MG TABEC PO SCH (21:09)
[2016-11-20] MEDS: lamoTRIgine 100 MG TAB PO SCH (21:10)
[2016-11-20] MEDS: ZOLPIDEM TARTRATE 5 MG TAB PO PRN (21:28)
[2016-11-21] VITALS (12 sets, daily range): BP systolic 89–144; BP diastolic 50–87; PULSE 74–87; RESP 16–25; TEMP 98–98.8; O2SAT 90–99
[2016-11-21] MEDS: CHLORHEXIDINE GLUCONATE 2 % 1 PACK (2 CLOTHS) TOP SCH (04:00)
[2016-11-21] MEDS: PIPERACIL-TAZO 2.25 GM PREMIX 50 ML IV SCH (05:01)
[2016-11-21 05:39] LABS: BICARBONATE 31.6 MEQ/L (21.0-32.0); POTASSIUM 3.7 MEQ/L (3.5-5.1)
[2016-11-21] MEDS: CHLORHEXIDINE 0.12% (ORAL KIT) 15 ML CUP MT SCH ×2 (08:00→20:00)
[2016-11-21] MEDS: risperiDONE 0.5 MG TAB PO SCH ×2 (09:19→21:06)
[2016-11-21] MEDS: SEVELAMER CARBONATE 800 MG TAB PO SCH ×3 (09:19→18:31)
[2016-11-21] MEDS: GABAPENTIN 100 MG CAP PO SCH ×4 (09:20→18:31)
[2016-11-21] MEDS: SODIUM CHLORIDE 0.9% FLUSH 10 ML FLUSH IV FLUSH SCH ×2 (09:20→21:05)
[2016-11-21] MEDS: DOCUSATE SODIUM 50 MG/SENNA 8.6 MG TAB PO SCH ×2 (09:20→21:08)
[2016-11-21] MEDS: MIDODRINE 5 MG TAB PO SCH ×2 (09:20→18:31)
[2016-11-21] MEDS: INSULIN ASPART SUPPLEMENTAL SCALE SQ SCH ×4 (10:08→21:00)
--- NOTE | 2016-11-21 13:48 | HHI.PR ---
Subjective Remarks pt look s disappointed , with his condition , denied c/o , HD conducted by renal service afebrile Objective Vitals Vital Signs Date Time Temp Pulse Resp B/P (MAP) Pulse Ox O2 Delivery O2 Flow Rate FiO2 11/21/16 10:00 85 11/21/16 08:00 98.3 86 25 89/53 (65) 94 11/21/16 08:00 82 11/21/16 07:25 98 21 11/21/16 07:00 98 Room Air 11/21/16 06:00 80 11/21/16 04:00 98.2 75 18 104/55 (71) 90 11/21/16 04:00 75 11/21/16 02:00 75 11/21/16 00:00 98.4 83 16 111/61 (78) 94 11/21/16 00:00 83 11/20/16 22:00 86 11/20/16 21:00 100 21 11/20/16 20:00 98.5 80 20 109/61 (77) 99 11/20/16 20:00 80 11/20/16 19:00 99 Room Air 11/20/16 18:00 90 11/20/16 16:00 98.8 91 23 90/59 (69) 98 11/20/16 16:00 82 11/20/16 14:00 88 I/O 11/20/16 11/20/16 11/20/16 11/21/16 11/21/16 11/21/16 07:00 15:00 23:00 07:00 15:00 23:00 Intake Total 160 ml 60 ml Output Total 0 ml 2000 ml 0 ml 0 ml Balance 160 ml -2000 ml 0 ml 60 ml Intake Oral 60 ml 60 ml IV Total 100 ml Output Urine Total 0 ml 0 ml 0 ml Hemodialysis 2000 ml # Bowel Movements 1 1 1 Result Diagram: 11/19/16 1009 11/21/16 0440 Objective Remarks GENERAL: 34 years old male resting in bed comfortably SKIN: Warm and dry. No rash HEAD: Atraumatic. Normocephalic. EYES: ENT: No nasal bleeding or discharge. Mucous membranes pink and moist. NECK: Trachea midline. No JVD. CARDIOVASCULAR: Regular rate and rhythm. without murmur RESPIRATORY: Few crackles appreciated bilaterally right greater than left. No wheeze.. GASTROINTESTINAL: Abdomen non tender with hypo-bowel sounds appreciated. MUSCULOSKELETAL: Left lower extremity with AV fistula/palpable thrill. Minimal peripheral edema. Left upper and lower extremity contracted from prior stroke. NEUROLOGICAL: Somnolent wake up to voice, Left upper and lower extremity contracted due to previous stroke. follows simple commands A/P Problem List: (1) Aspiration into lower respiratory tract ICD Code: T17.800A - Unspecified foreign body in other parts of respiratory tract causing asphyxiation, initial encounter Status: Acute (2) End stage kidney disease ICD Code: N18.6 - End stage kidney disease Status: Acute (3) CAD (coronary artery disease) ICD Code: I25.10 - CAD (coronary artery disease) Status: Acute (4) DM type 2 (diabetes mellitus, type 2) ICD Code: E11.9 - DM type 2 (diabetes mellitus, type 2) Status: Acute Assessment and Plan 61-year-old AA male of admission 11/11/2016. Date of consultation 11/11/2016. Past medical history of ESRD on HD , , Tuesday , coronary artery disease S/P stent, right frontal CVA with left-sided weakness hypertension, diabetes, anemia chronic disease, schizophrenia/bipolar disorder, who presented to the ED after an episode of vomiting during the last phase of his dialysis on 11/11. Patient complains that towards the end of his dialysis today he started having abdominal pain but he did not vomit. Patient had significant respiratory distress upon arrival. At the time of this interview patient was on nonrebreather with [address] abdomen/pelvis revealed a hiatal hernia, atrophic kidneys and bilateral infiltrates likely from aspiration. White Blood cell count 12,000. Lactate was 6.8. Patient became acutely hypotensive on the floor requiring initiation of peripheral vasopressors. Due to his underlying respiratory failure, patient required emergent intubation due to acute hypoxemic respiratory failure due to aspiration with severe sepsis 11/12 Patient is sedated with Diprivan and Versed. Remains on 3 pressors ( Levophed down 11 mics, Neosyn 90 mics, Vasopressin 0.04). Afebrile. 11/13 Patient remains intubated with Diprivan and sedated. Off Levophed and Versed. Neosyn down 50 mics and on Vasopressin. 11/14 Patient is off all pressors and off sedation. s/p transfusion 1unit PRBC yesterday Hgb 7.9 last night post transfusion. Afebrile. 11/15 No events overnight. Remains intubated and on low dose Diprivan infusion. Afebrile. For EGD&colonoscopy today. 11/16 Patient was extubated yesterday on 3L oxygen with good sats. Awake, alert. Afebrile for HD today. 11/17: Breathing comfortably on nasal cannula with oxygen saturation 95% on 3L NC , more lethargic but arousable for simple commands on right side. Normal WBC. Moves right side 11/19: continue current care , repeat bcx neg for 5 days , on zithromax & zosyn 11/20: Patient had hemodialysis today removed 2 L, repeat BMP in a.m. Metabolic encephalopathy Bipolar disorder Paranoid schizophrenia Depression Left eye blindness Insomnia Chronic narcotic use Monitor neuro status, awake and alert On mirtazapine 15 mg qhs, Risperidone 0.75 mg every 12 hours, trazodone 150 mg at night for anxiety/depression On escitalopram oxalate 20 mg at night for depression, lamotrigine 200 mg at night for psychosis On gabapentin 200 mg daily for peripheral neuropathy Severe sepsis Lactic acidosis- cleared History of chronic diastolic heart failure Hypertension Dyslipidemia Coronary disease status post stent placement Peripheral vascular disease Monitor HR and BP keep MAP>65mmHg Lactic acid resolved Continue midodrine 10 mg by mouth twice a day Echo showed EF 60-65% 11/12 Acute hypoxemic respiratory failure secondary to aspiration Extubated 11/16 Continue with oxygen keep sat >92%. Currently on 3 L nasal cannula Albuterol/ipratropium aerosols every 4 hours with albuterol nebs every 2 hours. 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 and 15 units at night/home medication TSH: 1.0. End-stage renal disease on hemodialysis Tuesday//Tuesday Hyponatremia- improving Monitor renal function, renal Dr. Kelley s/p HD 11/16 with 3L removed. Hemodialysis today ongoing Left AV left AV Fistula/femoral with positive thrill Continue Sevelamer 2.4 g 3 times a day for hyperphosphatemia Anemia Leukocytosis Monitor CBC daily. s/p Transfuse 1unit PRBC 11/13 Staph Epi bacteremia Pneumonia Sepsis Continue ABX( piperacillin/tazobactam, monitor for signs of infections ( Fever, WBC) BC 11/11 BC: 2/4 bottles staph Epi. ( likely contaminant) BC 11/14: NGTD Sputum cx: Proteus Chronic contractures left upper and lower extremities [facility] Physical therapy evaluate and treat Access - Utilize peripheral IV. Right femoral central line 11/11- d/c right femoral line 11/17 Prophylaxis - GI - famotidine - DVT - SCD/ heparin SQ on hold for anemia requiring blood transfusion and Hemoccult positive Latasha Corona MD Nov 21, 2016 13:48
--- NOTE | 2016-11-21 14:36 | HHI.NPPN ---
Subjective History of Present Illness 61-year-old male with history of end-stage renal disease on hemodialysis, Tuesdays, and Tuesday he was at dialysis and during the last hour he developed nausea and vomiting and thought to have aspirated. Patient is being transferred here and was hypotensive initially. He is being diagnosed with Aspiration Pneumonia, Respiratory failure and was Intubated Additional Remarks Patient is alert, now eating , no SOB. Objective Data Data Vital Signs Date Time Temp Pulse Resp B/P (MAP) Pulse Ox O2 Delivery O2 Flow Rate FiO2 11/21/16 12:00 74 11/21/16 12:00 98.2 74 16 89/50 (63) 92 11/21/16 10:00 85 11/21/16 08:00 98.3 86 25 89/53 (65) 94 11/21/16 08:00 82 11/21/16 07:25 98 21 11/21/16 07:00 98 Room Air 11/21/16 06:00 80 11/21/16 04:00 98.2 75 18 104/55 (71) 90 11/21/16 04:00 75 11/21/16 02:00 75 11/21/16 00:00 98.4 83 16 111/61 (78) 94 11/21/16 00:00 83 11/20/16 22:00 86 11/20/16 21:00 100 21 11/20/16 20:00 98.5 80 20 109/61 (77) 99 11/20/16 20:00 80 11/20/16 19:00 99 Room Air 11/20/16 18:00 90 11/20/16 16:00 98.8 91 23 90/59 (69) 98 11/20/16 16:00 82 -: 11/19/16 1009 11/21/16 0440 Physical Exam General Appearance: No Acute Distress, Comfortable Eyes Eye Exam: Pupils Equal Neck Neck Exam: Neck Supple Pulmonary Resp Exam: Decreased Bases Cardiology CV Exam: Regular, Normal Sinus Rhythm Gastrointestinal/Abdomen GI Exam: Soft, Non-Tender, Bowel Sounds Present, Distended Extremeties Extremities Exam: Trace Edema Neurologic Neuro Exam: Alert Assessment/Plan Problem List: (1) End stage kidney disease ICD Codes: N18.6 - End stage kidney disease Status: Acute Plan: patient had a dialysis treatment on Sat. Usually dialyzes TTS. Dialysis today. Continue HD in AM. (2) CAD (coronary artery disease) ICD Codes: I25.10 - CAD (coronary artery disease) Status: Acute Plan: Continue to monitor (3) Congestive heart failure (CHF) ICD Codes: I50.9 - Congestive heart failure (CHF) Status: Acute Plan: monitor and will need hemodialysis in am (4) Aspiration into lower respiratory tract ICD Codes: T17.800A - Unspecified foreign body in other parts of respiratory tract causing asphyxiation, initial encounter Status: Acute Plan: Continue to monitor 2/4 blood cultures positive. Plan BP is better but has been chronically low, on Midodrine for low BP. Increase Midodrine to 10 mg TID. Continue Zosyn and Azithromycin. Patient has history of CVA but has been verbal. HD done yesterday. On Epogen for anemia. On Gabapentin for neuropathy. Continue HD, 3 times a week. Natalia Bell MD Nov 21, 2016 14:36
[2016-11-21] MEDS: lamoTRIgine 100 MG TAB PO SCH (21:06)
[2016-11-21] MEDS: MIRTAZAPINE 15 MG TAB PO SCH (21:06)
[2016-11-21] MEDS: ESCITALOPRAM OXALATE 20 MG TAB PO SCH (21:06)
[2016-11-21] MEDS: FAMOTIDINE 20 MG TAB PO SCH (21:07)
[2016-11-21] MEDS: TAMSULOSIN HCL 0.4 MG CAP PO SCH (21:08)
[2016-11-21] MEDS: BISACODYL EC 5 MG TABEC PO SCH (21:08)
[2016-11-21] MEDS: ZOLPIDEM TARTRATE 5 MG TAB PO PRN (21:08)
[2016-11-21] MEDS: traZODone HCL 50 MG TAB PO SCH (21:16)
[2016-11-22] VITALS (8 sets, daily range): BP systolic 104–148; BP diastolic 53–82; PULSE 75–88; RESP 16–18; TEMP 97.6–98.6; O2SAT 90–97
[2016-11-22] MEDS: CHLORHEXIDINE GLUCONATE 2 % 1 PACK (2 CLOTHS) TOP SCH (03:13)
[2016-11-22] MEDS: INSULIN ASPART SUPPLEMENTAL SCALE SQ SCH ×4 (07:58→21:25)
[2016-11-22] MEDS: CHLORHEXIDINE 0.12% (ORAL KIT) 15 ML CUP MT SCH ×2 (08:00→20:00)
[2016-11-22] MEDS: GABAPENTIN 100 MG CAP PO SCH (09:34)
[2016-11-22] MEDS: SEVELAMER CARBONATE 800 MG TAB PO SCH ×3 (09:35→17:42)
[2016-11-22] MEDS: MIDODRINE 5 MG TAB PO SCH ×3 (09:35→17:42)
[2016-11-22] MEDS: DOCUSATE SODIUM 50 MG/SENNA 8.6 MG TAB PO SCH ×2 (09:35→21:08)
[2016-11-22] MEDS: risperiDONE 0.5 MG TAB PO SCH ×2 (09:35→21:10)
[2016-11-22] MEDS: SODIUM CHLORIDE 0.9% FLUSH 10 ML FLUSH IV FLUSH SCH ×2 (09:38→21:11)
--- NOTE | 2016-11-22 13:45 | HHI.PR ---
Subjective Remarks Follow up for acute respiratory failure, ESRD, sepsis. Patient is currently doing well, resting in bed on room air. No acute concerns. Denies any fever, chills. Objective Vitals Vital Signs Date Time Temp Pulse Resp B/P (MAP) Pulse Ox O2 Delivery O2 Flow Rate FiO2 11/22/16 12:00 98.4 84 16 104/53 (70) 92 11/22/16 09:54 Room Air 11/22/16 08:00 97.6 78 18 125/70 (88) 90 11/22/16 07:49 87 11/22/16 04:00 97.9 88 18 148/75 (99) 97 11/22/16 00:00 97.6 86 18 146/80 (102) 97 11/21/16 22:45 86 11/21/16 22:39 Room Air 11/21/16 22:33 98.0 87 20 144/87 (106) 94 11/21/16 20:00 98.8 76 18 134/65 (88) 99 11/21/16 20:00 76 11/21/16 19:00 99 Room Air 11/21/16 16:00 78 11/21/16 16:00 98.5 78 21 131/64 (86) 97 I/O 11/21/16 11/21/16 11/21/16 11/22/16 11/22/16 11/22/16 07:00 15:00 23:00 07:00 15:00 23:00 Intake Total 60 ml 250 ml Output Total 0 ml 0 ml Balance 60 ml 250 ml 0 ml Intake Oral 60 ml 250 ml Output Urine Total 0 ml 0 ml # Bowel Movements 1 1 1 Result Diagram: 11/19/16 1009 11/21/16 0440 Imaging Last Impressions Chest X-Ray 11/14/16 0000 Signed Impressions: Service Date/Time: Monday, November 14, 2016 14:11 - CONCLUSION: 1. ETT at the level of the clavicles. NGT beyond the GE junction. 2. Stable examination with patchy bilateral lower lung zone airspace disease and probable small left pleural effusion. Pako Multani MD Abdomen/Pelvis CT 11/11/16 0000 Signed Impressions: Service Date/Time: October 16:00 - CONCLUSION: Bilateral lower lobe infiltrates left greater than right. Atrophic kidneys without evidence of obstruction. Moderate-sized hiatal hernia. Ramon Jasso MD Objective Remarks GENERAL: Alert, NAD. SKIN: Warm and dry. HEAD: Normocephalic. EYES: No scleral icterus. No injection or drainage. NECK: Supple, trachea midline. No JVD or lymphadenopathy. CARDIOVASCULAR: Regular rate and rhythm without murmurs, gallops, or rubs. RESPIRATORY: Breath sounds equal bilaterally. No accessory muscle use. GASTROINTESTINAL: Abdomen soft, non-tender, nondistended. MUSCULOSKELETAL: No cyanosis, or edema. BACK: Nontender without obvious deformity. No CVA tenderness. Procedures 11/15/2016 EGD with biopsy followed by colonoscopy Intubation, central line placement 11/11/2016 A/P Problem List: (1) Aspiration into lower respiratory tract ICD Code: T17.800A - Unspecified foreign body in other parts of respiratory tract causing asphyxiation, initial encounter Status: Acute (2) End stage kidney disease ICD Code: N18.6 - End stage kidney disease Status: Acute (3) CAD (coronary artery disease) ICD Code: I25.10 - CAD (coronary artery disease) Status: Acute (4) DM type 2 (diabetes mellitus, type 2) ICD Code: E11.9 - DM type 2 (diabetes mellitus, type 2) Status: Acute Assessment and Plan Mr. Sharpe is a 61-year-old male with a history of diabetes mellitus, PVD, ESRD currently on dialysis on Tuesday, and Tuesday who presents to the emergency department after he went into respiratory distress towards the end of his dialysis today. Patient states that he experienced abdominal pain present of his dialysis. He apparently also had an episode of vomiting. There was concern over aspiration. Upon arrival patient was found to be in respiratory distress and required nonrebreather. He has leukocytosis with WBC count 12.7 K, lactic acid 6.8. - Severe sepsis (lactic acid 6.8, heart rate 117, respirations 24, WBC count 12.7 K, Pneumonia) - Pneumonia, possibly aspiration - Acute respiratory failure requiring intubation. Currently on room air. - Patient was initially admitted to the hospitalist service on 11/11/2016 and started on Zosyn. - Patient quickly deteriorated on the same day and pearl cutter was consulted. - Patient was intubated and required multiple pressors. - ESRD on HD on , , Tuesday. - Diabetes mellitus type 2 - Diabetic neuropathy - Nephrology following. Currently on Midodrine 10mg TID. - Continue medium sliding scale with aspart. - Blood glucose has been over 200s. Will start on Levemir 5 units QHS, titrate as needed. - Continue Gabapentin 200mg Qday. - GERD - Insomnia - Depression - Continue Famotidine, Trazodone, Ambien. - Continue Lexapr. - Probable GI bleed anemia - Patient received one unit of PRBCs. EGD/Colonoscopy showed Irregular Z line , Gastritis, Duodenitis, Internal hemorrhoids. - Continue Famotidine. Full code. SCDs. Maribel Elliott DO Nov 22, 2016 13:45
--- NOTE | 2016-11-22 16:55 | HHI.NPPN ---
Subjective History of Present Illness 61-year-old male with history of end-stage renal disease on hemodialysis, Tuesdays, and Tuesday he was at dialysis and during the last hour he developed nausea and vomiting and thought to have aspirated. Patient is being transferred here and was hypotensive initially. He is being diagnosed with Aspiration Pneumonia, Respiratory failure and was Intubated Additional Remarks Patient is alert, now eating , no SOB. Objective Data Data Vital Signs Date Time Temp Pulse Resp B/P (MAP) Pulse Ox O2 Delivery O2 Flow Rate FiO2 11/22/16 12:00 98.4 84 16 104/53 (70) 92 11/22/16 09:54 Room Air 11/22/16 08:00 97.6 78 18 125/70 (88) 90 11/22/16 07:49 87 11/22/16 04:00 97.9 88 18 148/75 (99) 97 11/22/16 00:00 97.6 86 18 146/80 (102) 97 11/21/16 22:45 86 11/21/16 22:39 Room Air 11/21/16 22:33 98.0 87 20 144/87 (106) 94 11/21/16 20:00 98.8 76 18 134/65 (88) 99 11/21/16 20:00 76 11/21/16 19:00 99 Room Air -: 11/19/16 1009 11/21/16 0440 Physical Exam General Appearance: No Acute Distress, Comfortable Eyes Eye Exam: Pupils Equal Neck Neck Exam: Neck Supple Pulmonary Resp Exam: Decreased Bases Cardiology CV Exam: Regular, Normal Sinus Rhythm Gastrointestinal/Abdomen GI Exam: Soft, Non-Tender, Bowel Sounds Present, Distended Extremeties Extremities Exam: Trace Edema Neurologic Neuro Exam: Alert Assessment/Plan Problem List: (1) End stage kidney disease ICD Codes: N18.6 - End stage kidney disease Status: Acute Plan: patient had a dialysis treatment on Sat. Usually dialyzes TTS. Dialysis today. Continue HD in AM. (2) CAD (coronary artery disease) ICD Codes: I25.10 - CAD (coronary artery disease) Status: Acute Plan: Continue to monitor (3) Congestive heart failure (CHF) ICD Codes: I50.9 - Congestive heart failure (CHF) Status: Acute Plan: monitor and will need hemodialysis in am (4) Aspiration into lower respiratory tract ICD Codes: T17.800A - Unspecified foreign body in other parts of respiratory tract causing asphyxiation, initial encounter Status: Acute Plan: Continue to monitor 2/4 blood cultures positive. Plan BP is better but has been chronically low, on Midodrine for low BP. Increase Midodrine to 10 mg TID. Continue Zosyn and Azithromycin. Patient has history of CVA but has been verbal. HD done yesterday. On Epogen for anemia. On Gabapentin for neuropathy. Continue HD, 3 times a week. Natalia Bell MD Nov 22, 2016 16:55
[2016-11-22] MEDS: ZOLPIDEM TARTRATE 5 MG TAB PO PRN (21:07)
[2016-11-22] MEDS: MIRTAZAPINE 15 MG TAB PO SCH (21:08)
[2016-11-22] MEDS: TAMSULOSIN HCL 0.4 MG CAP PO SCH (21:08)
[2016-11-22] MEDS: FAMOTIDINE 20 MG TAB PO SCH (21:10)
[2016-11-22] MEDS: traZODone HCL 50 MG TAB PO SCH (21:10)
[2016-11-22] MEDS: ESCITALOPRAM OXALATE 20 MG TAB PO SCH (21:10)
[2016-11-22] MEDS: lamoTRIgine 100 MG TAB PO SCH (21:10)
[2016-11-22] MEDS: BISACODYL EC 5 MG TABEC PO SCH (21:11)
[2016-11-23] VITALS: BP 109/59; PULSE 89; RESP 16; TEMP 97.6; O2SAT 99
[2016-11-23 04:00] VITALS: BP 124/67; PULSE 88; RESP 17; TEMP 97.9; O2SAT 98
[2016-11-23] MEDS: CHLORHEXIDINE GLUCONATE 2 % 1 PACK (2 CLOTHS) TOP SCH (04:00)
[2016-11-23] MEDS: CHLORHEXIDINE 0.12% (ORAL KIT) 15 ML CUP MT SCH (08:00)
[2016-11-23] MEDS: INSULIN ASPART SUPPLEMENTAL SCALE SQ SCH ×2 (08:00→12:00)
[2016-11-23 08:13] VITALS: BP 116/62; PULSE 84; RESP 17; TEMP 97.8; O2SAT 95
[2016-11-23] MEDS: DOCUSATE SODIUM 50 MG/SENNA 8.6 MG TAB PO SCH (09:00)
[2016-11-23] MEDS: SODIUM CHLORIDE 0.9% FLUSH 10 ML FLUSH IV FLUSH SCH (09:00)
[2016-11-23] MEDS: GELATIN 12 MM/7 MM FOAM TOP PRN (09:29)
[2016-11-23] MEDS: ALBUMIN HUMAN 25% 25 GM/100 ML BAGP IV PRN ×2 (09:30→09:31)
--- NOTE | 2016-11-23 11:01 | PQ ---
Physician Query Response Document PATIENT: GURU BOWEN : 1955 ADMIT DATE: 11/11/2016 1:04 PM DISCH DATE: RESPONDING PROVIDER #: margaret QUERY TEXT: Clarification of Clinical Diagnostic Findings Please clarify documentation or clinical relevance for the clinical / diagnostic findings or whether those are insignificant or unable to be further specified. 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 Electronically signed by: Kingston Elliott DO 11/23/2016 10:57 AM
[2016-11-23] MEDS: MIDODRINE 5 MG TAB PO SCH ×2 (13:00→13:08)
[2016-11-23] MEDS: risperiDONE 0.5 MG TAB PO SCH (13:08)
[2016-11-23] MEDS: GABAPENTIN 100 MG CAP PO SCH (13:08)
[2016-11-23] MEDS: SEVELAMER CARBONATE 800 MG TAB PO SCH ×2 (13:08→13:11)
[2016-11-23] MEDS ORDERED: LEVEMIR SQ (13:27)
--- NOTE | 2016-11-23 13:27 | HHI.DS ---
Discharge Summary Admission Date Nov 11, 2016 at 13:04 Discharge Date: Nov 23, 2016 Admitting Diagnosis respiratory distress/aspiration (1) Aspiration into lower respiratory tract ICD Code: T17.800A - Unspecified foreign body in other parts of respiratory tract causing asphyxiation, initial encounter Status: Acute (2) End stage kidney disease ICD Code: N18.6 - End stage kidney disease Status: Acute (3) CAD (coronary artery disease) ICD Code: I25.10 - CAD (coronary artery disease) Status: Acute (4) DM type 2 (diabetes mellitus, type 2) ICD Code: E11.9 - DM type 2 (diabetes mellitus, type 2) Status: Acute Procedures 11/15/2016 EGD with biopsy followed by colonoscopy Intubation, central line placement 11/11/2016 Brief History - From Admission Mr. Sharpe is a 61-year-old male with a past medical history of ESRD on HD , , Tuesday coronary artery disease, and CVA who presented to the ED after an episode of vomiting during the last phase of his dialysis today. Patient complains that towards the end of his dialysis today he started having abdominal pain but he did not vomit. However according to ED staff, patient likely had vomiting as it was apparent on his clothes. Patient had significant respiratory distress upon arrival. At the time of this interview patient was on nonrebreather with 15 L of oxygen. On arrival temperature 98.4F, pulse 117 , respiration 24, blood pressure 94/59. WBC 12.7, hemoglobin 11.3, platelets 259. Sodium 129, potassium 4.0, creatinine 5.39, BUN 46, random glucose 317. Lactic acid was 6.8. Blood gas was 7.22/44/126. Patient denies any chest pain , fever or chills. Denies any changes in bowel or bladder habits. CBC/BMP: 11/19/16 1009 11/21/16 0440 Significant Findings Laboratory Tests Test 11/21/16 04:40 Creatinine 5.15 MG/DL (0.60-1.30) Random Glucose 124 MG/DL (74-106) Estimat Glomerular Filtration Rate 14 ML/MIN (>89) Imaging Last Impressions Chest X-Ray 11/14/16 0000 Signed Impressions: Service Date/Time: Monday, November 14, 2016 14:11 - CONCLUSION: 1. ETT at the level of the clavicles. NGT beyond the GE junction. 2. Stable examination with patchy bilateral lower lung zone airspace disease and probable small left pleural effusion. Pako Multani MD Abdomen/Pelvis CT 11/11/16 0000 Signed Impressions: Service Date/Time: October 16:00 - CONCLUSION: Bilateral lower lobe infiltrates left greater than right. Atrophic kidneys without evidence of obstruction. Moderate-sized hiatal hernia. Ramon Jasso MD PE at Discharge GENERAL: Alert, NAD. SKIN: Warm and dry. HEAD: Normocephalic. EYES: No scleral icterus. No injection or drainage. NECK: Supple, trachea midline. No JVD or lymphadenopathy. CARDIOVASCULAR: Regular rate and rhythm without murmurs, gallops, or rubs. RESPIRATORY: Breath sounds equal bilaterally. No accessory muscle use. GASTROINTESTINAL: Abdomen soft, non-tender, nondistended. MUSCULOSKELETAL: No cyanosis, or edema. BACK: Nontender without obvious deformity. No CVA tenderness. Pt update on day of discharge Patient is doing well. Resting in bed, on room air. Eating his ice cream. No fever, chills. Hospital Course Mr. Sharpe is a 61-year-old male with a history of diabetes mellitus, PVD, ESRD currently on dialysis on Tuesday, and Tuesday who presents to the emergency department after he went into respiratory distress towards the end of his dialysis today. Patient states that he experienced abdominal pain present of his dialysis. He apparently also had an episode of vomiting. There was concern over aspiration. Upon arrival patient was found to be in respiratory distress and required nonrebreather. He has leukocytosis with WBC count 12.7 K, lactic acid 6.8. - Severe sepsis (lactic acid 6.8, heart rate 117, respirations 24, WBC count 12.7 K, Pneumonia) - Pneumonia, possibly aspiration - Acute respiratory failure requiring intubation. Currently on room air. - Patient was initially admitted to the hospitalist service on 11/11/2016 and started on Zosyn. - Patient quickly deteriorated on the same day and home service advisor was consulted. - Patient was intubated and required multiple pressors. - ESRD on HD on , , Tuesday. - Diabetes mellitus type 2 - Diabetic neuropathy - Nephrology following. Currently on Midodrine 10mg TID. - Continue medium sliding scale with aspart. - Blood glucose has been over 200s. Levemir 5 units QHS, titrate as needed. - Continue Gabapentin 200mg Qday. - Discussed with nephrology on 11/23/2016 - okay to discharge from nephrology standpoint. - GERD - Insomnia - Depression - Continue Famotidine, Trazodone, Ambien. - Continue Lexapr. - Probable GI bleed anemia - Patient received one unit of PRBCs. EGD/Colonoscopy showed Irregular Z line , Gastritis, Duodenitis, Internal hemorrhoids. - Continue Famotidine. Full code. SCDs. Pt Condition on Discharge: Good Discharge Disposition: Discharge to SNF Discharge Time: > 30 minutes Discharge Instructions DIET: Follow Instructions for: Renal Failure Diet Activities you can perform: Regular-No Restrictions Follow up Referrals: SNF/[facility]/ New Medications: Insulin Detemir Inj (Levemir Inj) 1,000 unit/ 10 ML Vial 5 UNITS SQ HS for Blood Sugar Management for 30 Days, INJECTION Do not mix with any other Insulin. Continued Medications: Acetaminophen (Tylenol) 325 Mg Tab 650 MG PO Q4H PRN for PAIN SCALE 1 TO 10, TAB 0 Refills Ascorbic Acid (Ascorbic Acid) 500 Mg Tab 500 MG PO DAILY for WOUND, TAB B-Complex W/ C & Folic Acid (Estrella-Rafa) 1 Tab 1 TAB PO DAILY, TAB Bisacodyl DR (Bisacodyl EC) 5 Mg Tabec 10 MG PO HS for CONSTIPATION, TAB 0 Refills Escitalopram (Lexapro) 20 Mg Tab 20 MG PO HS for Depression Control, #30 TAB 0 Refills Gabapentin (Gabapentin) 100 Mg Cap 200 MG PO DAILY, #30 CAP 0 Refills Insulin Lispro (Human) Inj (Humalog Inj) 1,000 Unit/10 Ml Vial 2-10 UNITS SQ ACHS for Blood Sugar Management, #1 VIAL 0 Refills Max dose at bedtime:( )units; sugars < 70,(0)units; sugars 150-199,(2)units; sugars 200-249,(4)units; sugars 250-299,(6)units; sugars 300-349,(8)units; sugars 350-399,(10)units. Ipratropium-Albuterol Neb (Duoneb) 0.5-2.5 Mg/3 Ml Neb 1 NEBULE INH Q4HR NEB PRN for SHORTNESS OF BREATH, #120 NEBULE 0 Refills Lamotrigine (Lamictal) 200 Mg Tab 200 MG PO HS for BIPOLAR DISORDER, #30 TAB 0 Refills Midodrine (Midodrine) 10 Mg Tab 10 MG PO BID for Control Low Blood Pressure, #90 TAB 0 Refills Mirtazapine (Remeron) 15 Mg Tab 15 MG PO HS for APPETITE , #30 TAB 0 Refills Omeprazole (Omeprazole) 20 Mg Tab 20 MG PO DAILY for GERD, #30 TAB 0 Refills Ondansetron (Zofran) 8 Mg Tab 8 MG PO Q6HR PRN for NAUSEA OR VOMITING, TAB 0 Refills Risperidone (Risperdal) 0.5 Mg Tab 0.75 MG PO Q12HR, #60 TAB 0 Refills Sevelamer Carbonate Liq (Renvela Liq) 2.4 Gm Pack 2.4 GM PO TIDPC for Control phosphorus levels, #90 PKT 0 Refills Tamsulosin (Flomax) 0.4 Mg Cap 0.4 MG PO HS for Manage Prostate Problems, #30 CAP 0 Refills Trazodone (Trazodone) 150 Mg Tablet 150 MG PO HS for Control Depression, #30 TAB 0 Refills Zolpidem (Ambien) 5 Mg Tab 5 MG PO HS PRN for INSOMNIA, TAB 0 Refills Discontinued Medications: Hydrocodone-Acetaminophen (Lortab) 10-325 Mg Tab 1 TAB PO Q8HR PRN for PAIN, TAB 0 Refills Insulin Detemir Inj (Levemir Inj) 1,000 unit/ 10 ML Vial 15 UNITS SQ HS for Blood Sugar Management, VIAL 0 Refills Do not mix with any other Insulin. Insulin Detemir Inj (Levemir Inj) 1,000 unit/ 10 ML Vial 19 UNITS SQ DAILY IN THE MORNING for DM TYPE 2, VIAL 0 Refills Do not mix with any other Insulin. Maribel Elliott DO Nov 23, 2016 13:27
--- NOTE | 2016-11-23 15:58 | HHI.NPPN ---
Subjective History of Present Illness 61-year-old male with history of end-stage renal disease on hemodialysis, Tuesdays, and Tuesday he was at dialysis and during the last hour he developed nausea and vomiting and thought to have aspirated. Patient is being transferred here and was hypotensive initially. He is being diagnosed with Aspiration Pneumonia, Respiratory failure and was Intubated Additional Remarks Patient is alert, now eating , no SOB. Objective Data Data 11/23/16 11/24/16 19:00 07:00 Output Total 2200 ml Balance -2200 ml Hemodialysis 2200 ml Vital Signs Date Time Temp Pulse Resp B/P (MAP) Pulse Ox O2 Delivery O2 Flow Rate FiO2 11/23/16 11:05 Room Air 21 11/23/16 08:13 97.8 84 17 116/62 (80) 95 11/23/16 04:00 97.9 88 17 124/67 (86) 98 11/23/16 00:00 97.6 89 16 109/59 (76) 99 11/22/16 22:00 98.1 85 17 146/82 (103) 95 11/22/16 21:10 Room Air 11/22/16 17:51 92 11/22/16 16:00 98.6 75 18 133/74 (93) 92 -: 11/19/16 1009 11/21/16 0440 Physical Exam General Appearance: No Acute Distress, Comfortable Eyes Eye Exam: Pupils Equal Neck Neck Exam: Neck Supple Pulmonary Resp Exam: Decreased Bases Cardiology CV Exam: Regular, Normal Sinus Rhythm Gastrointestinal/Abdomen GI Exam: Soft, Non-Tender, Bowel Sounds Present, Distended Extremeties Extremities Exam: Trace Edema Neurologic Neuro Exam: Alert Assessment/Plan Problem List: (1) End stage kidney disease ICD Codes: N18.6 - End stage kidney disease Status: Acute Plan: patient had a dialysis treatment on Sat. Usually dialyzes TTS. Dialysis today. Continue HD in AM. (2) CAD (coronary artery disease) ICD Codes: I25.10 - CAD (coronary artery disease) Status: Acute Plan: Continue to monitor (3) Congestive heart failure (CHF) ICD Codes: I50.9 - Congestive heart failure (CHF) Status: Acute Plan: monitor and will need hemodialysis in am (4) Aspiration into lower respiratory tract ICD Codes: T17.800A - Unspecified foreign body in other parts of respiratory tract causing asphyxiation, initial encounter Status: Acute Plan: Continue to monitor 2/4 blood cultures positive. Plan BP is better but has been chronically low, on Midodrine for low BP. Increase Midodrine to 10 mg TID. Continue Zosyn and Azithromycin. Patient has history of CVA but has been verbal. HD done yesterday. On Epogen for anemia. On Gabapentin for neuropathy. Continue HD, 3 times a week. Natalia Bell MD Nov 23, 2016 15:58
[2016-11-23 16:25] VITALS: BP 124/63; PULSE 88; RESP 18; TEMP 98.7; O2SAT 94
[2016-11-23] MEDS ORDERED: INSULIN DETEMIR 100 UNITS/ML VIAL SQ SCH (21:00)
== END 2016-11-23 16:26 | DRG 871 ==
LOC: NEPE 10:06 → NEDA 13:04 → HIMN 16:30 → N04B 11-21 22:22
PROVIDERS: ADMIT Hospitalist; ATTEND Hospitalist
PROC: 0BH17EZ Insertion of Endotracheal Airway into Trachea, Via Natural or Artificial Opening (ICD-10-PCS; principal; 2016-11-11)
PROC: 5A1945Z Respiratory Ventilation, 24-96 Consecutive Hours (ICD-10-PCS; 2016-11-11)
PROC: 06HM33Z Insertion of Infusion Device into Right Femoral Vein, Percutaneous Approach (ICD-10-PCS; 2016-11-11)
PROC: 5A1D60Z (ICD-10-PCS; 2016-11-12)
PROC: 30233N1 Transfusion of Nonautologous Red Blood Cells into Peripheral Vein, Percutaneous Approach (ICD-10-PCS; 2016-11-13)
PROC: 0DB98ZX Excision of Duodenum, Via Natural or Artificial Opening Endoscopic, Diagnostic (ICD-10-PCS; 2016-11-15)
PROC: 0DB68ZX Excision of Stomach, Via Natural or Artificial Opening Endoscopic, Diagnostic (ICD-10-PCS; 2016-11-15)
PROC: 0DB48ZX Excision of Esophagogastric Junction, Via Natural or Artificial Opening Endoscopic, Diagnostic (ICD-10-PCS; 2016-11-15)
PROC: 0DJD8ZZ Inspection of Lower Intestinal Tract, Via Natural or Artificial Opening Endoscopic (ICD-10-PCS; 2016-11-15)
DX: A41.9 Sepsis, unspecified organism (principal); J69.0 Pneumonitis due to inhalation of food and vomit; J96.01 Acute respiratory failure with hypoxia; I13.2 Hypertensive heart and chronic kidney disease with heart failure and with stage 5 chronic kidney disease, or end stage renal disease; G93.41 Metabolic encephalopathy; E87.2 Acidosis; K92.2 Gastrointestinal hemorrhage, unspecified; N18.6 End stage renal disease; I69.354 Hemiplegia and hemiparesis following cerebral infarction affecting left non-dominant side; I50.32 Chronic diastolic (congestive) heart failure; E87.1 Hypo-osmolality and hyponatremia; F20.0 Paranoid schizophrenia; E11.21 Type 2 diabetes mellitus with diabetic nephropathy; E11.22 Type 2 diabetes mellitus with diabetic chronic kidney disease; R65.20 Severe sepsis without septic shock; Z99.2 Dependence on renal dialysis; K22.70 Barrett's esophagus without dysplasia; E11.40 Type 2 diabetes mellitus with diabetic neuropathy, unspecified; E03.9 Hypothyroidism, unspecified; D63.1 Anemia in chronic kidney disease; K21.9 Gastro-esophageal reflux disease without esophagitis; I25.10 Atherosclerotic heart disease of native coronary artery without angina pectoris; K64.8 Other hemorrhoids; E78.5 Hyperlipidemia, unspecified; F31.9 Bipolar disorder, unspecified; E11.51 Type 2 diabetes mellitus with diabetic peripheral angiopathy without gangrene; N40.0 Benign prostatic hyperplasia without lower urinary tract symptoms; K29.70 Gastritis, unspecified, without bleeding; K29.80 Duodenitis without bleeding; G47.00 Insomnia, unspecified; K44.9 Diaphragmatic hernia without obstruction or gangrene; H54.42 Blindness, left eye, normal vision right eye; B96.4 Proteus (mirabilis) (morganii) as the cause of diseases classified elsewhere; E83.39 Other disorders of phosphorus metabolism; F32.9 Major depressive disorder, single episode, unspecified; Z95.5 Presence of coronary angioplasty implant and graft; Z79.4 Long term (current) use of insulin; Z79.891 Long term (current) use of opiate analgesic; Z88.5 Allergy status to narcotic agent; Z88.8 Allergy status to other drugs, medicaments and biological substances; Z87.891 Personal history of nicotine dependence
CPT/HCPCS: 31500; 36430; 36556; 36591; 36600; 71010; 74177; 76937; 80048; 80053; 80069; 80076; 82140; 82150; 82272; 82550; 82552; 82805; 82948; 83605; 83690; 83735; 83880; 84100; 84443; 84484; 85007; 85014; 85018; 85025; 85027; 85384; 85610; 85730; 86403; 86850; 86900; 86901; 86920; 87040; 87070; 87077; 87186; 87205; 87641; 88305; 88312; 90935; 93005; 93308; 94002; 94003; 94150; 94640; 94664; 96360; 96374; 96375; J0456; J1630; J1644; J1815; J2250; J2370; J2543; J2997; J3370; J3480; J7030; J7040; J7050; J7060; P9016; P9047; Q4081; Q9963; Q9967

== ENCOUNTER 2017-04-05 08:09 | Emergency (ER) | payer MEDICARE, OTHER ==
[~2017-04-05] VITALS: Ht 167.6 cm; Wt 85.0 kg
[~2017-04-05 08:09] MED LIST changes: -COLL30T TOPICAL; -DOXY100T PO; -GENT0.1O2 TOP; +MIDO10TA PO; -OMEP20TA PO; +OMEP20TA93 PO; -RISP0.5T20 PO; +RISP0.5T25 PO; -TRAZ150T75 PO; +TRAZ1TAB14 PO; -[UNRECOGNIZED DRUG - CODE] TOP
--- NOTE | 2017-04-05 08:33 | PD ---
HPI Chief Complaint: General Weakness Time Seen by Provider: 08:32 Travel History International Travel<30 days: No Contact w/Intl Traveler<30days: No Traveled to known affect area: No History of Present Illness HPI 61-year-old male was brought to the emergency room by EMS from the dialysis center. As per the paramedics patient was getting his dialysis when he started complaining that he was having difficulty swallowing. The dialysis was completed and EMS was called. Patient does have significant underlying debility and illness. He had history of stroke in the past and currently he is nonambulatory. He requires a Teresita lift. He lives in [facility]. Vital signs are stable. Patient is awake and alert. He answers slowly but answers appropriately. Upon asking patient said he was having difficulty swallowing. No history of choking or vomiting or aspiration. He says currently he feels better. Patient does not appear to be in any significant distress. He is weak in all 4 extremities which is his baseline. His blood sugar was 169 as per the paramedics. [facility] Past Medical History Narrative Medical List of his past medical, surgical, social and family histories reviewed from the nursing note. Anemia: Yes Arthritis: Yes Asthma: No Autoimmune Disease: No Blood Disorders: No Bipolar Disorder: Yes Anxiety: Yes Depression: Yes Heart Rhythm Problems: No Cancer: No Cardiac Catheterization: Yes Cardiovascular Problems: Yes (PERIPHERAL VASCULAR DISEASE) High Cholesterol: Yes Chemotherapy: No Chest Pain: Yes Congestive Heart Failure: Yes COPD: Yes Cerebrovascular Accident: Yes Diabetes: Yes Dialysis: Yes Diminished Hearing: No Endocrine: Yes Gastrointestinal Disorders: Yes (ESOPHAGITIS, BENIGN NEOPLASM OF COLON ) GERD: Yes Glaucoma: No Genitourinary: Yes (renal disease, HYPERTROPHY OF PROSTATE) Headaches: Yes Hepatitis: Yes Hiatal Hernia: No Heparin Induced Thrombocytopen: No Hypertension: Yes (NON COMPLIANT WITH MEDS) Immune Disorder: No Implanted Vascular Access Dvce: No Kidney Stones: No Musculoskeletal: Yes (HAMMERTOES BOTH FEET; CHRONIC BACK PAIN, GEN. MUSCLE WEAKNESS) Neurologic: Yes (LT SIDE FLACID LA CONTRACTED, MULTIPLE STROKES, HX SEIZURES) Psychiatric: Yes (EPISODIC MOOD DISORDER, PSYCHOSIS) Reproductive: No Respiratory: Yes (copd) Integumentary: Yes Immunizations Current: No Migraines: No Myocardial Infarction: No Radiation Therapy: No Renal Failure: No Schizophrenia: Yes Seizures: No Sickle Cell Disease: No Sleep Apnea: No Thyroid Disease: Yes (HYPOTHYROIDISM) Ulcer: No PNEUMOCCOCAL Vaccine (Year): 2 Past Surgical History Abdominal Surgery: No AICD: No Arteriovenous Shunt: No Cardiac Surgery: Yes (STENT, CARDIAC CATHERIZATION) Coronary Artery Bypass Graft: No Coronary Stent: Yes Ear Surgery: No Endocrine Surgery: No Eye Surgery: No Genitourinary Surgery: No Gynecologic Surgery: No Insulin Pump: No Joint Replacement: No Neurologic Surgery: No Oral Surgery: No Pacemaker: No Thoracic Surgery: No Other Surgery: Yes Social History Alcohol Use: No Tobacco Use: No Substance Use: No Allergies-Medications (Allergen,Severity, Reaction): Coded Allergies: methadone (Unverified Allergy, Severe, 04/05/17) acetaminophen (Unverified Allergy, Unknown, 04/05/17) PATIENT WAS TOLD TO NEVER TAKE THIS MEDICATION propoxyphene (Unverified Allergy, Unknown, 04/05/17) PATIENT WAS TOLD TO NEVER TAKE THIS MEDICATION Comments List of his allergies reviewed from the nursing note. Reported Meds & Prescriptions Reported Meds & Active Scripts Active Levemir Inj (Insulin Detemir) 1,000 unit/ 10 ML Vial 5 Units SQ HS 30 Days Do not mix with any other Insulin. Reported Midodrine 10 Mg Tab 10 Mg PO BID Trazodone (Trazodone HCl) 150 Mg Tablet 150 Mg PO HS Ambien (Zolpidem Tartrate) 5 Mg Tab 5 Mg PO HS PRN Omeprazole 20 Mg Tab 20 Mg PO DAILY Remeron (Mirtazapine) 15 Mg Tab 15 Mg PO HS Humalog Inj (Insulin Human Lispro) 1,000 Unit/10 Ml Vial 2-10 Units SQ ACHS Max dose at bedtime:( )units; sugars < 70,(0)units; sugars 150-199,(2)units; sugars 200-249,(4)units; sugars 250-299,(6)units; sugars 300-349,(8)units; sugars 350-399,(10)units. Zofran (Ondansetron HCl) 8 Mg Tab 8 Mg PO Q6HR PRN Tylenol (Acetaminophen) 325 Mg Tab 650 Mg PO Q4H PRN Risperdal (Risperidone) 0.5 Mg Tab 0.75 Mg PO Q12HR Renvela Liq (Sevelamer Carbonate) 2.4 Gm Pack 2.4 Gm PO TIDPC Estrella-Rafa (B-Complex W/ C & Folic Acid) 1 Tab 1 Tab PO DAILY Lexapro (Escitalopram Oxalate) 20 Mg Tab 20 Mg PO HS Lamictal (Lamotrigine) 200 Mg Tab 200 Mg PO HS Gabapentin 100 Mg Cap 200 Mg PO DAILY Flomax (Tamsulosin HCl) 0.4 Mg Cap 0.4 Mg PO HS Duoneb (Ipratropium-Albuterol Neb) 0.5-2.5 Mg/3 Ml Neb 1 Nebule INH Q4HR NEB PRN Bisacodyl EC (Bisacodyl) 5 Mg Tabec 10 Mg PO HS Ascorbic Acid 500 Mg Tab 500 Mg PO DAILY Narrative Medication List of his home medications reviewed from the nursing note Review of Systems Except as stated in HPI: all other systems reviewed are Neg Physical Exam Narrative GENERAL: Awake, alert, slowly answering questions in a monotone but appropriate , no obvious distress, bedbound and nonambulatory SKIN: Focused skin assessment warm/dry. HEAD: Atraumatic. Normocephalic. EYES: Pupils equal and round. No scleral icterus. No injection or drainage. ENT: No nasal bleeding or discharge. Mucous membranes pink and moist. No stridor NECK: Trachea midline. No JVD. CARDIOVASCULAR: Regular rate and rhythm. No murmur appreciated. RESPIRATORY: No accessory muscle use. Clear to auscultation. Breath sounds equal bilaterally. GASTROINTESTINAL: Abdomen soft, non-tender, nondistended. Hepatic and splenic margins not palpable. MUSCULOSKELETAL: No obvious deformities. No clubbing. No cyanosis. No edema. NEUROLOGICAL: Awake and alert. Quadriparesis with contractures and muscle wasting in all 4 extremities PSYCHIATRIC: Appropriate mood and affect; insight and judgment normal. Data Data Last Documented VS Orders Orders Diphenhydramine Liq (Benadryl Liq) (04/05/17 08:45) Ed Discharge Order (04/05/17 09:00) MDM Medical Decision Making Medical Screen Exam Complete: Yes Emergency Medical Condition: Yes Medical Record Reviewed: Yes Differential Diagnosis Anxiety, normal exam, generalized Narrative Course 9:05 AM his nurse called the intermediate and as per his nurse from the intermediate patient was doing fine when they sent him to dialysis. All his current physical exam is his baseline as per his nurse. He takes thickened liquid for diet for the risk of aspiration. He had his recent barium study done as per the intermediate and he passed it. I have given him some Benadryl here with the possibility of questionable angioedema although none is witnessed currently. I do not see any point of doing any blood work at this time. I will be happy to send him back to his intermediate. The nurse is arranging transportation for him to be taken back to the intermediate. Procedures EKG Prior to Arrival: No Diagnosis Primary Impression: Generalized weakness Additional Impression: Debility Referrals: Primary Care Physician Additional Instructions: Please follow-up with your primary care. Return to ER if there is any other concerns. Med/Other Pt SpecificInfo: No Change to Meds Disposition: 01 DISCHARGE HOME Condition: Stable Shyla Ulloa MD Apr 05, 2017 08:33
[2017-04-05 08:34] VITALS: BP 126/85; PULSE 79; RESP 14; TEMP 97.9; O2SAT 96
[2017-04-05] MEDS ORDERED: diphenhydrAMINE HCL ELIXIR 12.5 MG/5 ML CUP PO ONE (08:45)
== END 2017-04-05 10:09 | disposition home or self-care (01) ==
LOC: NEPE 08:09
DX: R53.1 Weakness (principal); R13.10 Dysphagia, unspecified; E11.51 Type 2 diabetes mellitus with diabetic peripheral angiopathy without gangrene; Z79.4 Long term (current) use of insulin
CPT/HCPCS: 99281

== ENCOUNTER 2017-09-14 14:29 | Inpatient (IN) ==
[2017-09-14] MEDS ORDERED: Sod Chloride 0.9% Inj 1,000 ML IV.CONT SCH (15:15)
--- NOTE | 2017-09-14 15:33 | ED ---
HPI General Chief Complaint: Abdominal Pain Stated Complaint: Abd pain Time Seen by Provider: 09/14/17 14:56 Source: patient Mode of arrival: EMS Limitations: no limitations History of Present Illness HPI narrative: The patient is a 62-year-old -[place] male who presents to the emergency department via EMS from a correction for constipation and possible obstruction. According to the paperwork sent from the correction the patient has had no bowel movement for 3 days on his own, had 2 enemas performed yesterday with good bowel movement afterwards. However, the patient had no bowel movement today and they performed enemas with no relief. They then performed an outpatient x-ray which revealed possible obstruction versus ileus. The patient was then referred to the emergency department for a CT of the abdomen and pelvis according to the paperwork. 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 He denies any abdominal pain, does complain of mild distention with diarrhea. He also complains of some nausea with vomiting earlier today. He denies any previous abdominal surgeries. He also complains of a dry nonproductive cough with mild shortness of breath. Symptoms are moderate. MD complaint: abdominal pain Onset (ago): day(s) Pain Consistency: intermittent and colicky Location: diffuse Severity: moderate Severity scale (1-10): 4 Quality: fullness Radiation: none Migration to: no migration Relieving factors: nothing Exacerbating factors: nothing Associated symptoms: constipation Treatments prior to arrival: other Related Data Home Medications Medication Instructions Recorded Confirmed B complex-vitamin C-folic acid 1 tab PO DAILY 09/14/17 09/14/17 [Estrella-Rafa] ascorbic acid (vitamin C) [Vitamin 500 mg PO BID 09/14/17 09/14/17 C] bisacodyl 5 mg PO TID PRN 09/14/17 09/14/17 cinacalcet [Sensipar] 30 mg PO DAILY 09/14/17 09/14/17 escitalopram oxalate 10 mg PO DAILY 09/14/17 09/14/17 gabapentin 200 mg PO HS 09/14/17 09/14/17 hydroxyzine HCl 25 mg PO TID-QID PRN 09/14/17 09/14/17 insulin aspart U-100 [Novolog See Label Instructions .ROUTE 09/14/17 09/14/17 U-100 Insulin aspart] .COMPLEX insulin detemir U-100 [Levemir 20 unit SUB-Q QPM 09/14/17 09/14/17 U-100 Insulin] insulin detemir U-100 [Levemir 30 unit SUB-Q DAILY 09/14/17 09/14/17 U-100 Insulin] lamotrigine [Lamictal] 200 mg PO HS 09/14/17 09/14/17 midodrine 10 mg PO BID 09/14/17 09/14/17 mirtazapine 15 mg PO HS 09/14/17 09/14/17 multivitamin 1 tab PO DAILY 09/14/17 09/14/17 omeprazole 20 mg PO DAILY 09/14/17 09/14/17 ondansetron HCl [Zofran] 8 mg PO Q6HR PRN 09/14/17 09/14/17 polyethylene glycol 3350 [Miralax] 17 g PO DAILY 09/14/17 09/14/17 risperidone 0.5 mg PO BID 09/14/17 09/14/17 sevelamer carbonate [Renvela] 2,400 mg PO AC 09/14/17 09/14/17 tamsulosin [Flomax] 0.4 mg PO DAILY 09/14/17 09/14/17 tramadol 50 mg PO Q6H PRN 09/14/17 09/14/17 trazodone 150 mg PO HS 09/14/17 09/14/17 Allergies Allergy/AdvReac Type Severity Reaction Status Date / Time methadone Allergy Severe Anaphylaxis Verified 09/14/17 14:45 acetaminophen Allergy Unknown Anaphylaxis Verified 09/14/17 14:45 propoxyphene Allergy Unknown Anaphylaxis Verified 09/14/17 14:45 Review of Systems Except as stated in HPI: all other systems reviewed are negative Constitutional Denies fever(s) Cardiovascular Denies chest pain Respiratory Reports cough and Reports dyspnea Gastrointestinal Reports abdominal pain, Reports constipation, Reports nausea and Reports vomiting [facility] Medical History Medical History AV (arteriovenous fistula) (Acute) Anxiety (Acute) Benign prostatic hyperplasia (Acute) Bipolar disorder (Acute) Cerebral infarction (Acute) Chronic kidney disease (Acute) Contracture, left hand (Acute) Dysphagia (Acute) Dysphagia, oropharyngeal phase (Acute) End stage renal disease (Acute) Esophagitis (Acute) Gastroesophageal reflux disease (Acute) Heart failure (Acute) Hyperlipidemia (Acute) Hypothyroidism (Acute) Iron deficiency anemia (Acute) Mood disorder (Acute) Muscle weakness (Acute) Osteoporosis (Acute) Peripheral vascular disease (Acute) Renal dialysis status (Acute) Schizophrenia (Acute) Type 2 diabetes mellitus (Acute) Surgical History Surgical History H/O cardiac catheterization (Acute) Family History Family History Other No family history of cardiac disease Social History Social History Substance History: No History of Abuse Second Hand Smoke Exposure: No Smoking Status: Former smoker How Often Do You Have a Drink Containing Alcohol: Never Recent Travel in [facility] within the Last 8 Weeks: No Recent Out of Country Travel within the Last 8 Weeks: No Immunization History Tetanus Immunization: Unsure Hx Influenza Vaccine This Season: No Exam Narrative Exam Narrative: GENERAL: Awake, alert, pleasant 62-year-old male who appears his stated age and is in no acute respiratory distress. SKIN: Focused skin assessment warm/dry. HEAD: Atraumatic. Normocephalic. EYES: No injection or drainage per NECK: Trachea midline. No JVD. CARDIOVASCULAR: Regular rate and rhythm. No murmur appreciated. RESPIRATORY: No accessory muscle use. Clear to auscultation. Breath sounds equal bilaterally. GASTROINTESTINAL: Abdomen slightly distended, no rebound tenderness, guarding, rigidity. Rectal: Adult diaper in place with a large amount of stool. Rectal exam performed, no fecal impaction noted. MUSCULOSKELETAL: Contracture and atrophy noted in the left upper extremity, atrophy noted in the left lower extremity with limited mobility. Positive AV fistula left leg with positive thrill. NEUROLOGICAL: Awake and alert. Left upper extremity contracted, decreased movement of the left upper extremity and left lower extremity. PSYCHIATRIC: Appropriate mood and affect; insight and judgment normal. Course Initial Documented Vital Signs Temperature 98.6 F 09/14/17 14:49 Pulse Rate 97 H 09/14/17 14:49 Respiratory Rate 20 09/14/17 14:49 Blood Pressure 92/56 L 09/14/17 14:49 Pulse Oximetry 98 09/14/17 14:49 Last Documented Vital Signs Temperature 98.6 F 09/14/17 14:49 Pulse Rate 93 H 09/14/17 21:47 Respiratory Rate 22 09/14/17 21:47 Blood Pressure 108/58 L 09/14/17 21:47 Pulse Oximetry 97 09/14/17 21:47 Sign Out Sign Out Data: Patient Sign Out occurred on 09/14/17 at 17:13. Patient's care was discussed, and care was transferred from Jm Crespo MD to Damaso Ho MD. Sign Out Comment: 62-year-old male sent to the emergency department from a correction for an abnormal KUB. Patient given enema yesterday with 2 bowel movements, had outpatient x-ray today which revealed possible ileus versus obstruction. Rectal exam reveals large amount of stool within the adult diaper , no fecal impaction. Abdomen slightly distended, CT and abdomen and pelvis pending for possible obstruction/volvulus. Patient noted to have cough, aspirating contrast, x-ray reveals bibasilar pneumonia. Patient will need admission with speech therapy evaluation and antibiotics for healthcare acquired pneumonia. Paperwork from correction reveals patient has [employer], [facility] Last updated by Jm Crespo MD at 09/14/17 16:45 Post-Handoff Eval: Patient CARE assume from Dr. Crespo at 1900, this is a 62-year-old partial quad patient presents emergency department for evaluation of decreased bowel movements. CAT scan of the abdomen was ordered with IV contrast noted to have aspiration-like events, chest x-ray was obtained which did show bilateral infiltrates, started on treatment for presumed healthcare associated pneumonia. Dr. Crespo and I agree that the patient should be admitted for evaluation by speech therapy at a minimum, he does not meet SIRS criteria however was found to have slightly low blood pressure elevated lactic acid 3.2, he was given a liter bolus but nursing estimates that about 500 cc was on the ground. Patient did receive some fluid bolus and lactic acid down to 2.0, blood pressure improved, saturating well. Needs to be very cautious with fluid resuscitation as patient has chronic kidney disease and CHF. Discussed with him admission to the hospital, fairly groggy is a just woke him up but he is agreeable. Medical Decision Making MDM Narrative Medical decision making narrative: IV was established, labs are drawn and sent, and the patient was placed on cardiac telemetry monitoring and continuous pulse oximetry body. CT of the abdomen and pelvis with oral contrast was ordered to evaluate for obstruction/transition point versus ileus versus constipation. CT of the abdomen and pelvis was ordered, the patient was drinking contrast, however, with coughing, possibly could be aspirating his chest x-ray reveals bibasilar pneumonia. Therefore, the oral contrast was stopped. X-ray does reveal bibasilar pneumonia, could be aspiration, however, he does complain of cough and mild shortness of breath, therefore, was treated for healthcare acquired pneumonia with cefepime and Zithromax. Differential Diagnosis Differential Diagnosis: Differential diagnosis includes constipation, obstruction, partial small bowel obstruction, large bowel obstruction, volvulus , ileus, dehydration, electrolyte abnormality. Lab Data Result diagrams: 09/14/17 15:53 09/14/17 15:53 Lab Results 09/14/17 09/14/17 09/14/17 Range/Units 15:53 15:53 15:53 WBC 6.9 (4.0-11.0) th/mm3 RBC 3.44 L (4.50-5.90) mil/mm3 Hgb 10.1 L (13.0-17.0) gm/dL Hct 31.3 L (39.0-51.0) % MCV 90.8 (80.0-100.0) fL MCH 29.5 (27.0-34.0) pg MCHC 32.5 (32.0-36.0) % RDW 17.0 (11.6-17.2) % Plt Count 273 (150-450) th/mm3 MPV 8.1 (7.0-11.0) fL Neut % (Auto) 71.4 H (16.0-70.0) % Lymph % (Auto) 20.2 (9.0-44.0) % Hutchinson % (Auto) 6.7 (0.0-8.0) % Eos % (Auto) 1.1 (0.0-4.0) % Baso % (Auto) 0.6 (0.0-2.0) % Neut # (Auto) 4.9 (1.8-7.7) th/mm3 Lymph # (Auto) 1.4 (1.0-4.8) th/mm3 Hutchinson # (Auto) 0.5 (0.0-0.9) th/mm3 Eos # (Auto) 0.1 (0.0-0.4) th/mm3 Baso # (Auto) 0.0 (0.0-0.2) th/mm3 WBC Differential . Differential Comment Auto diff final Sodium 137 (136-145) meq/L Potassium 3.6 (3.5-5.1) meq/L Chloride 95 L (98-107) meq/L Carbon Dioxide 30.8 (21.0-32.0) meq/L Anion Gap 11 (5-15) meq/L BUN 57 H (7-18) mg/dL Creatinine 7.82 H (0.60-1.30) mg/dL Estimated GFR 8 L (>89) mL/min Random Glucose 196 H (74-106) mg/dL Lactic Acid 3.1 H (0.4-2.0) mmol/L Calcium 8.9 (8.5-10.1) mg/dL Total Bilirubin 0.4 (0.2-1.0) mg/dL AST 10 L (15-37) U/L ALT 16 (12-78) U/L Alkaline Phosphatase 132 H (45-117) U/L Total Protein 9.2 H D (6.4-8.2) g/dL Albumin 3.4 (3.4-5.0) g/dL Lipase 631 H (73-393) U/L 09/14/17 Range/Units 19:33 WBC (4.0-11.0) th/mm3 RBC (4.50-5.90) mil/mm3 Hgb (13.0-17.0) gm/dL Hct (39.0-51.0) % MCV (80.0-100.0) fL MCH (27.0-34.0) pg MCHC (32.0-36.0) % RDW (11.6-17.2) % Plt Count (150-450) th/mm3 MPV (7.0-11.0) fL Neut % (Auto) (16.0-70.0) % Lymph % (Auto) (9.0-44.0) % Hutchinson % (Auto) (0.0-8.0) % Eos % (Auto) (0.0-4.0) % Baso % (Auto) (0.0-2.0) % Neut # (Auto) (1.8-7.7) th/mm3 Lymph # (Auto) (1.0-4.8) th/mm3 Hutchinson # (Auto) (0.0-0.9) th/mm3 Eos # (Auto) (0.0-0.4) th/mm3 Baso # (Auto) (0.0-0.2) th/mm3 WBC Differential Differential Comment Sodium (136-145) meq/L Potassium (3.5-5.1) meq/L Chloride (98-107) meq/L Carbon Dioxide (21.0-32.0) meq/L Anion Gap (5-15) meq/L BUN (7-18) mg/dL Creatinine (0.60-1.30) mg/dL Estimated GFR (>89) mL/min Random Glucose (74-106) mg/dL Lactic Acid 2.0 (0.4-2.0) mmol/L Calcium (8.5-10.1) mg/dL Total Bilirubin (0.2-1.0) mg/dL AST (15-37) U/L ALT (12-78) U/L Alkaline Phosphatase (45-117) U/L Total Protein (6.4-8.2) g/dL Albumin (3.4-5.0) g/dL Lipase (73-393) U/L Imaging Data Radiologist's impression: Chest X-Ray 09/14/17 15:04 CONCLUSION: Bibasilar infiltrates suggestive of bibasilar pneumonia. Pulmonary venous congestion. Abdomen/Pelvis CT 09/14/17 15:13 CONCLUSION: 1. Diffuse fatty infiltration of the liver. 2. Stable 2 cm left adrenal mass. 3. Atrophic kidneys bilaterally. No hydronephrosis. 4. Scattered diverticulosis of the sigmoid colon without inflammatory changes. 5. Stable moderate hiatal hernia the GE junction.. Discharge Plan Discharge Disposition Patient Disposition: 30 Still Patient Discharge Condition Condition: Stable Discharge Details Diagnosis: Aspiration pneumonia of both lungs Physicians Team ED Provider: Damaso Ho Primary Care Provider: Sharan Hill Attending Provider: Liane Rodriguez Status ED Status: Admitted Patient
--- NOTE | 2017-09-14 15:40 | XR ---
EXAM DATE: 09/14/2017 3:30 PM EDT AGE/SEX: 62 years / Male INDICATIONS: . Cough. Abdominal pain. CLINICAL DATA: This is the patient's initial encounter. Patient reports that signs and symptoms have been present for 1 day and indicates a pain score of Nonresponsive. MEDICAL/SURGICAL HISTORY: . Cardiovascular disease. Hypertension. Diabetes mellitus type 2.Live r disease None. COMPARISON: [facility] [place], CHEST SINGLE AP, 08/13/2017. . FINDINGS: There is a new patchy infiltrate in the right lung base. There are some probable changes the left nenita g base. There is some prominence of the pulmonary vasculature bilaterally. The heart size is enlarged but stable. The bony structures are stable. The study is somewhat limited since patient is rotated. CONCLUSION: Bibasilar infiltrates suggestive of bibasilar pneumonia. Pulmonary venous congestion. Electronically signed by: Clifford Young MD 09/14/2017 3:39 PM EDT
[2017-09-14] MEDS ORDERED: Azithromycin Inj 500 MG in Sodium Chlor 0.9% Inj 250 ML IV.SIG ONE (15:52)
[2017-09-14] MEDS ORDERED: Diatrizoate Meglum/Diatrizoate Sod Liq 9 ML UDC ONE (16:09)
[2017-09-14] MEDS ORDERED: Diatrizoate Meglum/Diatrizoate Sod Liq 9 ML UDC PO ONE (16:15)
[2017-09-14 16:18] LABS: Baso % (Auto) 0.6 % (0.0-2.0); Eos # (Auto) 0.1 th/mm3 (0.0-0.4); Eos % (Auto) 1.1 % (0.0-4.0); Hematocrit 31.3 % (39.0-51.0); Hemoglobin 10.1 gm/dL (13.0-17.0); Lymph # (Auto) 1.4 th/mm3 (1.0-4.8); Lymph % (Auto) 20.2 % (9.0-44.0); Mean Corpuscular HGB Conc 32.5 % (32.0-36.0); Mean Corpuscular Hemoglobin 29.5 pg (27.0-34.0); Mean Corpuscular Volume 90.8 fL (80.0-100.0); Mean Platelet Volume 8.1 fL (7.0-11.0); Mono # (Auto) 0.5 th/mm3 (0.0-0.9); Mono % (Auto) 6.7 % (0.0-8.0); Neut # (Auto) 4.9 th/mm3 (1.8-7.7); Neut % (Auto) 71.4 % (16.0-70.0); Platelet Count 273 th/mm3 (150-450); Red Blood Count 3.44 mil/mm3 (4.50-5.90); White Blood Count 6.9 th/mm3 (4.0-11.0)
[2017-09-14 16:44] LABS: Albumin 3.4 g/dL (3.4-5.0); Anion Gap 11 meq/L (5-15); Aspartate Aminotransferase 10 U/L (15-37); Blood Urea Nitrogen 57 mg/dL (7-18); Calcium 8.9 mg/dL (8.5-10.1); Carbon Dioxide 30.8 meq/L (21.0-32.0); Chloride 95 meq/L (98-107); Glomerular Filtration Rate 8 mL/min (>89); Glucose,Random 196 mg/dL (74-106); Lipase 631 U/L (73-393); Potassium 3.6 meq/L (3.5-5.1); Sodium 137 meq/L (136-145)
[2017-09-14 16:47] LABS: Alanine Aminotransferase 16 U/L (12-78); Alkaline Phosphatase 132 U/L (45-117); Total Protein 9.2 g/dL (6.4-8.2)
--- NOTE | 2017-09-14 17:35 | CT ---
EXAM DATE: 09/14/2017 5:18 PM EDT AGE/SEX: 62 years / Male INDICATIONS: Abdomen pain. CLINICAL DATA: This is the patient's initial encounter. Patient reports that signs and symptoms have been present for 1 day and indicates a pain score of 5/10. MEDICAL/SURGICAL HISTORY: Gastroesophageal reflux disease. Diabetes. Cardiovascular disease. Esophagitis. None. RADIATION DOSE: 9.96 CTDI (mGy) COMPARISON: [facility] [place], CT ABDOMEN & PELVIS W/O CONTRAST, 08/11/2017. . TECHNIQUE: Multiple contiguous axial images were obtained through the abdomen. Images were obtained using multiple row detector helical technique. Using automated exposure control and adjustment of the mA and/or kV according to patient size, radiation dose was kept as low as reasonably achievable to o btain optimal diagnostic quality images. DICOM format image data is available electronically for rev iew and comparison. Lack of IV contrast limits the diagnosis for certain organ pathology. FINDINGS: Lower Lungs: Bibasilar infiltrates. Moderate hiatal hernia the GE junction. Liver: The liver has a homogeneous density. Diffuse fatty infiltration throughout the liver. No signi ficant changes. The gallbladder is grossly unremarkable.. There is no dilation of the biliary tree. Spleen: Homogeneous density without enlargement. Pancreas: Unremarkable without mass or calcification. Kidneys: Atrophic bilateral kidneys.. No evidence of mass or hydronephrosis. Adrenal Glands: Stable 2 cm left adrenal nodule. Right adrenal gland is unremarkable. Aorta: The aorta and proximal iliac vessels are grossly unremarkable without aneurysmal dilation. Bowel/Mesentery: The bowel loops are grossly unremarkable. The cecum and sigmoid colon have a normal configuration. Scattered diverticulosis of the sigmoid colon without inflammatory changes. There is stool throughout the colon. No free fluid or loculated fluid collections. Abdominal Wall: Intact. Retroperitoneum: No evidence of adenopathy in the retrocrural, para-aortic, or deep pelvic regions. Bladder: Decompressed. Reproductive Organs: No abnormal masses or calcifications seen. Inguinal: The inguinal region is unremarkable without evidence of adenopathy. There is a stent in th e left iliac artery. Bony Structures: Primary bony degenerative changes. Stable bony changes. No new or significant changes compared to the prior study. CONCLUSION: 1. Diffuse fatty infiltration of the liver. 2. Stable 2 cm left adrenal mass. 3. Atrophic kidneys bilaterally. No hydronephrosis. 4. Scattered diverticulosis of the sigmoid colon without inflammatory changes. 5. Stable moderate hiatal hernia the GE junction.. Electronically signed by: Clifford Young MD 09/14/2017 5:34 PM EDT
[2017-09-14] MEDS ORDERED: Temazepam 15 MG Capsule PO PRN (22:21)
[2017-09-14] MEDS ORDERED: Bisacodyl 10 MG Supp RECTAL PRN (22:21)
[2017-09-14] MEDS ORDERED: Acetaminophen 325 MG Tablet PO PRN (22:21)
[2017-09-14] MEDS ORDERED: Dextrose 50% in Water 50 ML Vial IV.PUSH PRN (22:47)
--- NOTE | 2017-09-14 22:52 | P.HP ---
History of Present Illness Service: [facility] Primary Care Physician: Sharan Hill MD History of Present Illness: 62-year-old -[place] male with a complex past medical history presents to the emergency department for the evaluation of constipation and possible obstruction. The patient is a quadriplegic who was sent from a long-term because he has had no bowel movement for 3 days on his own but did have 2 enemas performed yesterday with good bowel movements following. An outpatient x -ray was obtained which revealed possible obstruction versus ileus. CT of the abdomen showed stool throughout the colon without obstruction or ileus. Lower lungs significant for bibasilar infiltrates. While in the emergency department , the previous provider identified concern for aspiration as the patient was choking and coughing while taking p.o. At this time, the patient has no complaints except for itchiness. Review of Systems All other systems reviewed negative except as stated in HPI [facility] [place] - History History Provided By: Patient - Medical History Medical History: Medical History (Last Updated 09/14/17 @ 22:40 by Liane Rodriguez MD) AV (arteriovenous fistula) Anxiety Benign prostatic hyperplasia Bipolar disorder Cerebral infarction Chronic kidney disease Contracture, left hand Dysphagia Dysphagia, oropharyngeal phase End stage renal disease Esophagitis Gastroesophageal reflux disease Heart failure Hyperlipidemia Hypothyroidism Iron deficiency anemia Mood disorder Muscle weakness Osteoporosis Peripheral vascular disease Renal dialysis status Schizophrenia Type 2 diabetes mellitus - Surgical History Surgical History: Surgical History (Last Updated 09/14/17 @ 22:39 by Liane Rodriguez MD) H/O cardiac catheterization - Family History Family History: Family History (Last Updated 09/14/17 @ 22:40 by Liane Rodriguez MD) Other No family history of cardiac disease - Tobacco History Second Hand Smoke Exposure: No Smoking Status: Former smoker - Alcohol History How Often Do You Have a Drink Containing Alcohol: Never - Substance Use History Substance History: No History of Abuse - Travel History Recent Travel in the [place] Within the Last 8 Weeks: No Recent Travel Out of the Country Within the Last 8 Weeks: No - Immunization History Tetanus Immunization: Unsure Hx Influenza Vaccine This Season: No Medications and Allergies Active Medications: Active Medications Acetaminophen (Tylenol) 650 mg PO Q4H PRN PRN Reason: Temp > 100.4 Al Hydroxide/Mg Hydroxide (Milk Of Magnesia Liq) 30 ml PO Q12H PRN PRN Reason: Mild Constipation Bisacodyl (Dulcolax Supp) 10 mg RECTAL DAILY PRN PRN Reason: SEVERE CONSITIPATION Diphenhydramine HCl (Benadryl Inj) 25 mg IV.PUSH Q6H PRN PRN Reason: itching Sodium Chloride (Ns Inj) 1,000 mls @ 125 mls/hr IV.CONT .Q8H FLAQUITA Stop: 09/14/17 23:14 Last Admin: 09/14/17 16:22 Dose: 125 mls/hr Cefepime HCl 1,000 mg/ Sodium (Chloride) 100 mls @ 200 mls/hr IV.SIG Q8H FLAQUITA Sodium Chloride (Ns Inj) 1,000 mls @ 100 mls/hr IV.CONT .Q10H FLAQUITA Azithromycin 500 mg/ Sodium (Chloride) 250 mls @ 250 mls/hr IV.SIG Q24H FLAQUITA Lactulose (Lactulose Liq) 30 ml PO DAILY PRN PRN Reason: SEVERE CONSITIPATION Ondansetron HCl (Zofran Inj) 4 mg IV.PUSH Q6H PRN PRN Reason: NAUSEA OR VOMITING Senna/Docusate Sodium (Radha-Colace) 1 tab PO BID FLAQUITA Sennosides (Senokot) 17.2 mg PO Q12H PRN PRN Reason: Moderate Constipation Sodium Chloride (Ns Flush) 2 ml IV.FLUSH PRN PRN PRN Reason: FLUSH AFTER USING IV ACCESS Temazepam (Restoril) 15 mg PO HS PRN PRN Reason: INSOMNIA Allergies Allergy/AdvReac Type Severity Reaction Status Date / Time methadone Allergy Severe Anaphylaxis Verified 09/14/17 14:45 acetaminophen Allergy Unknown Anaphylaxis Verified 09/14/17 14:45 propoxyphene Allergy Unknown Anaphylaxis Verified 09/14/17 14:45 Home Medications Medication Instructions Recorded Confirmed Type B complex-vitamin C-folic acid 1 tab PO DAILY 09/14/17 09/14/17 History [Estrella-Rafa] ascorbic acid (vitamin C) [Vitamin 500 mg PO BID 09/14/17 09/14/17 History C] bisacodyl 5 mg PO TID PRN 09/14/17 09/14/17 History cinacalcet [Sensipar] 30 mg PO DAILY 09/14/17 09/14/17 History escitalopram oxalate 10 mg PO DAILY 09/14/17 09/14/17 History gabapentin 200 mg PO HS 09/14/17 09/14/17 History hydroxyzine HCl 25 mg PO TID-QID PRN 09/14/17 09/14/17 History insulin aspart U-100 [Novolog See Label Instructions .ROUTE 09/14/17 09/14/17 History U-100 Insulin aspart] .COMPLEX insulin detemir U-100 [Levemir 20 unit SUB-Q QPM 09/14/17 09/14/17 History U-100 Insulin] insulin detemir U-100 [Levemir 30 unit SUB-Q DAILY 09/14/17 09/14/17 History U-100 Insulin] lamotrigine [Lamictal] 200 mg PO HS 09/14/17 09/14/17 History midodrine 10 mg PO BID 09/14/17 09/14/17 History mirtazapine 15 mg PO HS 09/14/17 09/14/17 History multivitamin 1 tab PO DAILY 09/14/17 09/14/17 History omeprazole 20 mg PO DAILY 09/14/17 09/14/17 History ondansetron HCl [Zofran] 8 mg PO Q6HR PRN 09/14/17 09/14/17 History polyethylene glycol 3350 [Miralax] 17 g PO DAILY 09/14/17 09/14/17 History risperidone 0.5 mg PO BID 09/14/17 09/14/17 History sevelamer carbonate [Renvela] 2,400 mg PO AC 09/14/17 09/14/17 History tamsulosin [Flomax] 0.4 mg PO DAILY 09/14/17 09/14/17 History tramadol 50 mg PO Q6H PRN 09/14/17 09/14/17 History trazodone 150 mg PO HS 09/14/17 09/14/17 History Exam Vital signs: Vital Signs 09/14/17 14:49 09/14/17 15:04 09/14/17 18:06 Temperature 98.6 F Pulse Rate 97 H 92 H Respiratory Rate 20 16 Blood Pressure 92/56 L 88/56 L Pulse Oximetry 98 97 100 09/14/17 21:47 Temperature Pulse Rate 93 H Respiratory Rate 22 Blood Pressure 108/58 L Pulse Oximetry 97 Intake & Output 09/14/17 09/14/17 09/15/17 06:59 18:59 06:59 Weight 81.647 kg Narrative: Gen.: No acute distress Head: Normocephalic. Atraumatic. EENT: Pupils equal round and reactive to light. Nose without drainage. Airway intact. Throat without injection. Cardiovascular: Regular rate and rhythm. No murmurs, rubs or gallops. Respiratory: Lungs clear to auscultation bilaterally. No wheezes or rhonchi. Abdomen: Soft, nontender, nondistended. No peritoneal signs. Musculoskeletal: No gross deformities. No edema. Skin: No obvious rashes or erythema. Neuro: Awake and alert. Left upper extremity with motor deficit. Normal speech. Results - Labs CBC & Chem 7: 09/14/17 15:53 09/14/17 15:53 Labs: Laboratory Results - last 24 hr 09/14/17 09/14/17 09/14/17 15:53 15:53 15:53 WBC 6.9 RBC 3.44 L Hgb 10.1 L Hct 31.3 L MCV 90.8 MCH 29.5 MCHC 32.5 RDW 17.0 Plt Count 273 MPV 8.1 Neut % (Auto) 71.4 H Lymph % (Auto) 20.2 [place] % (Auto) 6.7 Eos % (Auto) 1.1 Baso % (Auto) 0.6 Neut # (Auto) 4.9 Lymph # (Auto) 1.4 [place] # (Auto) 0.5 Eos # (Auto) 0.1 Baso # (Auto) 0.0 WBC Differential . Differential Comment Auto diff final Sodium 137 Potassium 3.6 Chloride 95 L Carbon Dioxide 30.8 Anion Gap 11 BUN 57 H Creatinine 7.82 H Estimated GFR 8 L Random Glucose 196 H Lactic Acid 3.1 H Calcium 8.9 Total Bilirubin 0.4 AST 10 L ALT 16 Alkaline Phosphatase 132 H Total Protein 9.2 H D Albumin 3.4 Lipase 631 H 09/14/17 19:33 WBC RBC Hgb Hct MCV MCH MCHC RDW Plt Count MPV Neut % (Auto) Lymph % (Auto) [place] % (Auto) Eos % (Auto) Baso % (Auto) Neut # (Auto) Lymph # (Auto) [place] # (Auto) Eos # (Auto) Baso # (Auto) WBC Differential Differential Comment Sodium Potassium Chloride Carbon Dioxide Anion Gap BUN Creatinine Estimated GFR Random Glucose Lactic Acid 2.0 Calcium Total Bilirubin AST ALT Alkaline Phosphatase Total Protein Albumin Lipase - Imaging Impressions Chest X-Ray 09/14/17 15:04 CONCLUSION: Bibasilar infiltrates suggestive of bibasilar pneumonia. Pulmonary venous congestion. Abdomen/Pelvis CT 09/14/17 15:13 CONCLUSION: 1. Diffuse fatty infiltration of the liver. 2. Stable 2 cm left adrenal mass. 3. Atrophic kidneys bilaterally. No hydronephrosis. 4. Scattered diverticulosis of the sigmoid colon without inflammatory changes. 5. Stable moderate hiatal hernia the GE junction.. Caprini VTE Risk Assessment Caprini VTE Risk Assessment: Moderate/High Risk (score >= 2) Caprini Risk Assessment Model: Point Value = 1 Point Value = 2 Point Value = 3 Point Value = 5 Age 41-60 Minor surgery BMI > 25 kg/m2 Swollen legs Varicose veins or History of unexplained or recurrent spontaneous Oral contraceptives or hormone replacement Sepsis (< 1 month) Serious lung disease, including pneumonia (< 1 month) Abnormal pulmonary function Acute myocardial infarction Congestive heart failure (< 1 month) History of inflammatory bowel disease Medical patient at bed rest Age 61-74 Arthroscopic surgery Major open surgery (> 45 min) Laparoscopic surgery (> 45 min) Malignancy Confined to bed (> 72 hours) Immobilizing plaster cast Central venous access Age >= 75 History of VTE Family history of VTE Factor V Leiden Prothrombin [id number] Lupus anticoagulant Anticardiolipin antibodies Elevated serum homocysteine Heparin-induced thrombocytopenia Other congenital or acquired thrombophilia Stroke (< 1 month) Elective arthroplasty Hip, pelvis, or leg fracture Acute spinal cord injury (< 1 month) Prophylaxis Regimen: Total Risk Factor Score Risk Level Prophylaxis Regimen 0-1 Low Early ambulation 2 Moderate Order ONE of the following: *Sequential Compression Device (SCD) *Heparin 5000 units SQ BID 3-4 Higher Order ONE of the following medications: *Heparin 5000 units SQ TID *Enoxaparin/Lovenox 40 mg SQ daily (WT < 150 kg, CrCl > 30 mL/min) *Enoxaparin/Lovenox 30 mg SQ daily (WT < 150 kg, CrCl > 10-29 mL/min) *Enoxaparin/Lovenox 30 mg SQ BID (WT < 150 kg, CrCl > 30 mL/min) AND/OR *Sequential Compression Device (SCD) 5 or more Highest Order ONE of the following medications: *Heparin 5000 units SQ TID (Preferred with Epidurals) *Enoxaparin/Lovenox 40 mg SQ daily (WT < 150 kg, CrCl > 30 mL/min) *Enoxaparin/Lovenox 30 mg SQ daily (WT < 150 kg, CrCl > 10-29 mL/min) *Enoxaparin/Lovenox 30 mg SQ BID (WT < 150 kg, CrCl > 30 mL/min) AND *Sequential Compression Device (SCD) Assessment and Plan - Plan Assessment/plan: 1. Healthcare associated pneumonia/? Aspiration/Sepsis Elevated lactic acid, hypertension, tachycardia CT of the abdomen/pelvis showed bibasilar infiltrates Aspiration events witnessed in the emergency department Cefepime and azithromycin Speech therapy consulted for swallow evaluation 2. End-stage renal disease on dialysis Nephrology consulted, appreciate assistance 3. Diabetes mellitus Home basal insulin until patient can take p.o. Sliding-scale insulin Monitor blood glucose 4. GERD/insomnia/depression Holding home medications pending swallow evaluation 5. Chronic left lower extremity wounds Wound care consulted FEN: N.p.o. NS at 100 cc/hour Heparin
[2017-09-15] MEDS: Sod Chloride 0.9% Inj 1,000 ML IV.CONT SCH ×2 (01:56→08:12)
[2017-09-15] MEDS: Insulin NovoLIN Regular Correctional Sugar Inj SQ SCH ×4 (03:27→18:34)
[2017-09-15 04:44] LABS: Baso % (Auto) 0.3 % (0.0-2.0); Eos # (Auto) 0.2 th/mm3 (0.0-0.4); Eos % (Auto) 2.2 % (0.0-4.0); Hemoglobin 8.9 gm/dL (13.0-17.0); Lymph # (Auto) 1.3 th/mm3 (1.0-4.8); Lymph % (Auto) 14.6 % (9.0-44.0); Mean Corpuscular HGB Conc 31.9 % (32.0-36.0); Mean Corpuscular Hemoglobin 29.1 pg (27.0-34.0); Mean Corpuscular Volume 91.2 fL (80.0-100.0); Mean Platelet Volume 8.1 fL (7.0-11.0); Mono # (Auto) 0.6 th/mm3 (0.0-0.9); Mono % (Auto) 6.8 % (0.0-8.0); Neut # (Auto) 6.7 th/mm3 (1.8-7.7); Neut % (Auto) 76.1 % (16.0-70.0); Platelet Count 247 th/mm3 (150-450); Red Blood Count 3.07 mil/mm3 (4.50-5.90); Red Cell Distribution Width 16.7 % (11.6-17.2); White Blood Count 8.8 th/mm3 (4.0-11.0)
[2017-09-15 04:47] LABS: Calcium 8.7 mg/dL (8.5-10.1); Carbon Dioxide 30.4 meq/L (21.0-32.0); Potassium 4.2 meq/L (3.5-5.1)
[2017-09-15] MEDS ORDERED: Heparin 10,000 UNITS/10 ML Vial (for IV use) IV.FLUSH PRN (06:53)
[2017-09-15] MEDS ORDERED: Sod Chloride 0.9% Inj 1,000 ML IV.CONT PRN (06:53)
[2017-09-15] MEDS ORDERED: Albumin Human 25% Inj 100 ML IV.SIG PRN (06:53)
[2017-09-15] MEDS ORDERED: Sod Chloride 0.9% Inj 1,000 ML OTHER PRN ×2 (06:53)
[2017-09-15] MEDS ORDERED: Gelatin 12 MM/7 MM Topical Foam TOPICAL PRN (06:53)
[2017-09-15] MEDS ORDERED: Heparin 10,000 UNITS/10 ML Vial (for IV use) OTHER PRN (06:53)
[2017-09-15] MEDS: Senna/Docusate Sodium 8.6/50 MG Tablet PO SCH ×2 (08:12→21:42)
--- NOTE | 2017-09-15 10:45 | P.PNIM ---
Subjective Interval history: Mr. Sharpe was afebrile with stable vitals overnight; O2 saturations >95% on 2L O2 via NC. Patient predominately did not respond to questioning but reported some itching, that he was hungry for a hamburger. In questions regarding pain after examining his left lower extremity, patient reported affirmatively that he had pain. Physical Exam Vital signs: Vital Signs 09/14/17 14:49 09/14/17 15:04 09/14/17 18:06 Temperature 98.6 F Pulse Rate 97 H 92 H Respiratory Rate 20 16 Blood Pressure 92/56 L 88/56 L Pulse Oximetry 98 97 100 09/14/17 21:47 09/15/17 00:00 09/15/17 00:31 Temperature 97.3 F L 97.8 F Pulse Rate 93 H 88 89 Respiratory Rate 22 16 18 Blood Pressure 108/58 L 94/53 L 116/57 L Pulse Oximetry 97 92 L 94 L 09/15/17 08:00 Temperature 98.0 F Pulse Rate 92 H Respiratory Rate 18 Blood Pressure 116/72 Pulse Oximetry 95 Intake & Output 09/14/17 09/15/17 09/15/17 18:59 06:59 18:59 Intake Total 1350 / 1350 1000 / 1000 Balance 1350 / 1350 1000 / 1000 Weight 81.647 kg 80 kg Intake: IV 1350 / 1350 1000 / 1000 NS Inj 1,000 ML @ 100 mls/hr IV 1000 / 1000 1000 / 1000 .CONT .Q10H FLAQUITA Rx#:[id number] Azithromycin Inj 500 MG In NS 250 / 250 Inj 250 ML @ 250 mls/hr IV.SIG ONCE ONE Rx#:[id number] Maxipime Inj 2,000 MG In NS Inj 100 / 100 100 ML @ 200 mls/hr IV.SIG ONCE ONE Rx#:[id number] Other: Date of Last Bowel Movement 09/14/17 09/14/17 Weight On Admission 80 kg Narrative: Gen.: No acute distress Skin: Left distal lower extremity wrapped HEENT: Normocephalic. Eyes: EOM grossly I. Nose without drainage. Cardiovascular: Regular rate and rhythm; normal peripheral perfusion grossly Respiratory: Lungs clear to auscultation bilaterally; no focal congestion Abdomen: Soft, nontender, nondistended. Musculoskeletal: Patient with some atrophy and contractures. Strength/ROM not inspected Neuro: Awake/alert. No obvious CN defects. Peripheral function not assessed in detail Results - Labs CBC & Chem 7: 09/15/17 04:05 09/15/17 04:05 Laboratory Results - last 24 hr 09/14/17 09/14/17 09/14/17 15:53 15:53 15:53 WBC 6.9 RBC 3.44 L Hgb 10.1 L Hct 31.3 L MCV 90.8 MCH 29.5 MCHC 32.5 RDW 17.0 Plt Count 273 MPV 8.1 Neut % (Auto) 71.4 H Lymph % (Auto) 20.2 [place] % (Auto) 6.7 Eos % (Auto) 1.1 Baso % (Auto) 0.6 Neut # (Auto) 4.9 Lymph # (Auto) 1.4 [place] # (Auto) 0.5 Eos # (Auto) 0.1 Baso # (Auto) 0.0 WBC Differential . Differential Comment Auto diff final Sodium 137 Potassium 3.6 Chloride 95 L Carbon Dioxide 30.8 Anion Gap 11 BUN 57 H Creatinine 7.82 H Estimated GFR 8 L POC Glucose Random Glucose 196 H Lactic Acid 3.1 H Calcium 8.9 Total Bilirubin 0.4 AST 10 L ALT 16 Alkaline Phosphatase 132 H Total Protein 9.2 H D Albumin 3.4 Lipase 631 H 09/14/17 09/15/17 09/15/17 19:33 03:18 04:05 WBC 8.8 RBC 3.07 L Hgb 8.9 L Hct 28.0 L MCV 91.2 MCH 29.1 MCHC 31.9 L RDW 16.7 Plt Count 247 MPV 8.1 Neut % (Auto) 76.1 H Lymph % (Auto) 14.6 [place] % (Auto) 6.8 Eos % (Auto) 2.2 Baso % (Auto) 0.3 Neut # (Auto) 6.7 Lymph # (Auto) 1.3 [place] # (Auto) 0.6 Eos # (Auto) 0.2 Baso # (Auto) 0.0 WBC Differential . Differential Comment Auto diff final Sodium Potassium Chloride Carbon Dioxide Anion Gap BUN Creatinine Estimated GFR POC Glucose 167 H Random Glucose Lactic Acid 2.0 Calcium Total Bilirubin AST ALT Alkaline Phosphatase Total Protein Albumin Lipase 09/15/17 09/15/17 04:05 07:36 WBC RBC Hgb Hct MCV MCH MCHC RDW Plt Count MPV Neut % (Auto) Lymph % (Auto) [place] % (Auto) Eos % (Auto) Baso % (Auto) Neut # (Auto) Lymph # (Auto) [place] # (Auto) Eos # (Auto) Baso # (Auto) WBC Differential Differential Comment Sodium 140 Potassium 4.2 Chloride 96 L Carbon Dioxide 30.4 Anion Gap 14 BUN 63 H Creatinine 8.46 H Estimated GFR 8 L POC Glucose 152 H Random Glucose 131 H Lactic Acid Calcium 8.7 Total Bilirubin AST ALT Alkaline Phosphatase Total Protein Albumin Lipase - Imaging Impressions Chest X-Ray 09/14/17 15:04 CONCLUSION: Bibasilar infiltrates suggestive of bibasilar pneumonia. Pulmonary venous congestion. Abdomen/Pelvis CT 09/14/17 15:13 CONCLUSION: 1. Diffuse fatty infiltration of the liver. 2. Stable 2 cm left adrenal mass. 3. Atrophic kidneys bilaterally. No hydronephrosis. 4. Scattered diverticulosis of the sigmoid colon without inflammatory changes. 5. Stable moderate hiatal hernia the GE junction.. Assessment and Plan - Assessment (1) Aspiration pneumonia of both lungs Code(s): J69.0 - Pneumonitis due to inhalation of food and vomit Status: Acute (2) End stage renal disease on dialysis Code(s): N18.6 - End stage renal disease; Z99.2 - Dependence on renal dialysis Status: Acute (3) Diabetes Code(s): E11.9 - Type 2 diabetes mellitus without complications Status: Acute - Plan Mr. Sharpe is a 62 yo M w/ PMH ESRD and CVA who presented via fpc with: Pneumonia Impression: Suspect aspiration. CXR on admission with bibasilar infiltrates suggestive of bibasilar pneumonia. Reported dry cough at prior facility. No leukocytosis. Stable saturations on 2 L O2 via NC. On dialysis; lives in health care setting -Continue to monitor VS, respiratory function and provide NC O2 as needed -Will cover for aspiration pneumonia -will change from Cefepime/Azithromycin to Zosyn -Will check Sputum cultures -Speech therapy evaluation -NPO -barium swallow recommended per conversation with nursing staff Abdominal pain/Constipation Impression: None reported on exam today; exam benign. Reported complaint for constipation requiring enemas and concern for obstruction at his prior fpc CT abdomen/pelvis- diffuse fatty infiltration. Stable 2cm L adrenal mass. Bilateral kidney atrophy w/o hydronephrosis. Diverticulosis scattered in sigmoid colon w/o inflammatory changes. Stable moderate hiatal hernia at GE junction -Continue PRN bowel regimen -Continue Miralax daily -Will monitor further ESRD Impression: Chronic ESRD requiring dialysis -Nephrology consulted -Continue dialysis as needed T2DM Impression: On home Levemir 30 U daily, sliding scale -Will give SS insulin while inpatient and hold Levemir while NPO Other chronic medical conditions -Will hold home Tramadol, psychiatric medications, vitamins while NPO DVT PPX -will start Heparin 5 K U BID Discharge Planning: Will continue pneumonia treatment and determine ability for oral intake prior to discharge back to prior facility (1) Aspiration pneumonia of both lungs Qualifiers: Aspiration pneumonia type: unspecified Lung location: lower lobe of lung Qualified Code(s): J69.0 - Pneumonitis due to inhalation of food and vomit (3) Diabetes Qualifiers: Chronic kidney disease stage: on chronic dialysis
--- NOTE | 2017-09-15 11:32 | P.CONNP ---
<Khalida Laura - Last Filed: 09/15/17 11:09> History of Present Illness Service: Nephrology Consult date: 09/14/17 Requesting Physician: Liane Rodriguez Reason for Consult: End stage renal disease on hemodialysis Primary Care Provider: Sharan Hill MD History of Present Illness: This is a 62-year-old male with a past medical history of hypertension, cerebrovascular accident, end-stage renal disease, on hemodialysis, history of schizophrenia, with bipolar disorder, gastroesophageal reflux disease, chronic anemia, hypothyroidism. Presents to the emergency department from a snf for constipation and possible obstruction. Outpatient x-ray which revealed possible obstruction versus ileus. CT of abdomen with no acute finding. Chest Xray with bibasilar infiltrates suggestive of bibasilar pneumonia and pulmonary venous congestion. Nephrology was consulted for management of end stage renal disease and hemodialysis. Dialysis days are Tuesday//Tuesday with last HD on Tuesday. Hemodialysis is planned for today. Review of Systems Constitutional: Reports fatigue Cardiovascular: Denies chest pain, Denies shortness of breath Respiratory: Denies shortness of breath Gastrointestinal: Reports nausea (Pruiritus ), Denies abdominal pain PMFSH - History History Provided By: Patient, Medical Record - Medical History Medical History: Medical History (Last Updated 09/14/17 @ 22:40 by Liane Rodriguez MD) AV (arteriovenous fistula) Anxiety Benign prostatic hyperplasia Bipolar disorder Cerebral infarction Chronic kidney disease Contracture, left hand Dysphagia Dysphagia, oropharyngeal phase End stage renal disease Esophagitis Gastroesophageal reflux disease Heart failure Hyperlipidemia Hypothyroidism Iron deficiency anemia Mood disorder Muscle weakness Osteoporosis Peripheral vascular disease Renal dialysis status Schizophrenia Type 2 diabetes mellitus - Surgical History Surgical History: Surgical History (Last Updated 09/14/17 @ 22:39 by Liane Rodriguez MD) H/O cardiac catheterization - Family History Family History: Family History (Last Updated 09/14/17 @ 22:40 by Liane Rodriguez MD) Other No family history of cardiac disease - Tobacco History Second Hand Smoke Exposure: No Smoking Status: Never smoker - Alcohol History How Often Do You Have a Drink Containing Alcohol: Never - Substance Use History Substance History: No History of Abuse - Travel History Recent Travel in the [place] Within the Last 8 Weeks: No Recent Travel Out of the Country Within the Last 8 Weeks: No - Immunization History Tetanus Immunization: Unsure Hx Influenza Vaccine This Season: Yes Medications and Allergies Allergies Allergy/AdvReac Type Severity Reaction Status Date / Time methadone Allergy Severe Anaphylaxis Verified 09/14/17 14:45 acetaminophen Allergy Unknown Anaphylaxis Verified 09/14/17 14:45 propoxyphene Allergy Unknown Anaphylaxis Verified 09/14/17 14:45 Home Medications Medication Instructions Recorded Confirmed Type B complex-vitamin C-folic acid 1 tab PO DAILY 09/14/17 09/14/17 History [Estrella-Rafa] ascorbic acid (vitamin C) [Vitamin 500 mg PO BID 09/14/17 09/14/17 History C] bisacodyl 5 mg PO TID PRN 09/14/17 09/14/17 History cinacalcet [Sensipar] 30 mg PO DAILY 09/14/17 09/14/17 History escitalopram oxalate 10 mg PO DAILY 09/14/17 09/14/17 History gabapentin 200 mg PO HS 09/14/17 09/14/17 History hydroxyzine HCl 25 mg PO TID-QID PRN 09/14/17 09/14/17 History insulin aspart U-100 [Novolog See Label Instructions .ROUTE 09/14/17 09/14/17 History U-100 Insulin aspart] .COMPLEX lamotrigine [Lamictal] 200 mg PO HS 09/14/17 09/14/17 History mirtazapine 15 mg PO HS 09/14/17 09/14/17 History multivitamin 1 tab PO DAILY 09/14/17 09/14/17 History omeprazole 20 mg PO DAILY 09/14/17 09/14/17 History ondansetron HCl [Zofran] 8 mg PO Q6HR PRN 09/14/17 09/14/17 History polyethylene glycol 3350 [Miralax] 17 g PO DAILY 09/14/17 09/14/17 History risperidone 0.5 mg PO BID 09/14/17 09/14/17 History sevelamer carbonate [Renvela] 2,400 mg PO AC 09/14/17 09/14/17 History tamsulosin [Flomax] 0.4 mg PO DAILY 09/14/17 09/14/17 History tramadol 50 mg PO Q6H PRN 09/14/17 09/14/17 History trazodone 150 mg PO HS 09/14/17 09/14/17 History Active Medications: Active Medications Acetaminophen (Tylenol) 650 mg PO Q4H PRN PRN Reason: Temp > 100.4 Al Hydroxide/Mg Hydroxide (Milk Of Gerald Read) 30 ml PO Q12H PRN PRN Reason: Mild Constipation Bisacodyl (Dulcolax Supp) 10 mg RECTAL DAILY PRN PRN Reason: SEVERE CONSITIPATION Clonidine HCl (Catapres) 0.1 mg PO UNSCH PRN PRN Reason: SEE LABEL COMMENTS Dextrose (D50w Vial) 50 ml IV.PUSH UNSCH PRN PRN Reason: PER HYPOGLYCEMIA PROTOCOL Diphenhydramine HCl (Benadryl Inj) 25 mg IV.PUSH Q6H PRN PRN Reason: itching Epoetin Camilo (Epogen Inj) 10,000 unit IV.PUSH UNSCH PRN PRN Reason: SEE LABEL COMMENTS Gelatin (Gelfoam 12 Mm/7 Mm Topical) 1 foam TOPICAL PRN PRN PRN Reason: help stop bleeding from site Gentamicin Sulfate (Gentamicin Inj) 20 mg OTHER WITH DIALYSIS PRN PRN Reason: Dwell Gentamycin Lock Glucagon (Glucagon Inj) 1 mg OTHER PRN PRN PRN Reason: for Hypoglycemia Protocol Heparin Sodium (Porcine) (Heparin Inj) 8,000 units IV.FLUSH WITH DIALYSIS PRN PRN Reason: for machine prime Heparin Sodium (Porcine) (Heparin Inj) 1,000 units OTHER WITH DIALYSIS PRN PRN Reason: Dwell Heparin to Fill Catheter Cefepime HCl 1,000 mg/ Sodium (Chloride) 100 mls @ 200 mls/hr IV.SIG Q24H [facility] Sodium Chloride (Ns Inj) 1,000 mls @ 100 mls/hr IV.CONT .Q10H [facility] Last Admin: 09/15/17 08:12 Dose: 100 mls/hr Azithromycin 500 mg/ Sodium (Chloride) 250 mls @ 250 mls/hr IV.SIG Q24H [facility] Albumin Human (Flexbumin 25% Inj) 100 mls @ 60 mls/hr IV.SIG WITH DIALYSIS PRN PRN Reason: hypotension / volume replace Sodium Chloride (Ns Inj) 1,000 mls @ 0 mls/hr OTHER .Q0M PRN PRN Reason: for prime and rinse back Sodium Chloride (Ns Inj) 1,000 mls @ 200 mls/hr OTHER .Q5H PRN PRN Reason: for dialyzer flush PRN Sodium Chloride (Ns Inj) 1,000 mls @ 0 mls/hr IV.CONT .Q0M PRN PRN Reason: hypotension / volume replace Insulin Human Regular (Novolin R Correctional Sugar Inj) 0 units SQ ACHS AND 3AM FLAQUITA; Protocol Last Admin: 09/15/17 08:11 Dose: Not Given Lactulose (Lactulose Liq) 30 ml PO DAILY PRN PRN Reason: SEVERE CONSITIPATION Mannitol (Mannitol Inj) 12.5 gm IV.PUSH PRN PRN PRN Reason: hypotension / volume replace Nitroglycerin (Nitrostat Sl) 0.4 mg SL Q5M PRN PRN Reason: CHEST PAIN Ondansetron HCl (Zofran Odt) 4 mg PO Q6H PRN PRN Reason: NAUSEA OR VOMITING Ondansetron HCl (Zofran Inj) 4 mg IV.PUSH UNSCH PRN PRN Reason: NAUSEA OR VOMITING Senna/Docusate Sodium (Radha-Colace) 1 tab PO BID [facility] Last Admin: 09/15/17 08:12 Dose: Not Given Sennosides (Senokot) 17.2 mg PO Q12H PRN PRN Reason: Moderate Constipation Sodium Chloride (Ns Flush) 2 ml IV.FLUSH PRN PRN PRN Reason: FLUSH AFTER USING IV ACCESS Sodium Chloride (Ns Flush) 5 ml IV.FLUSH PRN PRN PRN Reason: flush each lumen during HD Temazepam (Restoril) 15 mg PO HS PRN PRN Reason: INSOMNIA Exam Vital signs: Vital Signs 09/14/17 14:49 09/14/17 15:04 09/14/17 18:06 Temperature 98.6 F Pulse Rate 97 H 92 H Respiratory Rate 20 16 Blood Pressure 92/56 L 88/56 L Pulse Oximetry 98 97 100 09/14/17 21:47 09/15/17 00:00 09/15/17 00:31 Temperature 97.3 F L 97.8 F Pulse Rate 93 H 88 89 Respiratory Rate 22 16 18 Blood Pressure 108/58 L 94/53 L 116/57 L Pulse Oximetry 97 92 L 94 L 09/15/17 08:00 Temperature 98.0 F Pulse Rate 92 H Respiratory Rate 18 Blood Pressure 116/72 Pulse Oximetry 95 Intake & Output 0709/15/17 09/15/17 18:59 06:59 18:59 Intake Total 1350 / 1350 1000 / 1000 Balance 1350 / 1350 1000 / 1000 Weight 81.647 kg 80 kg Intake: IV 1350 / 1350 1000 / 1000 NS Inj 1,000 ML @ 100 mls/hr IV 1000 / 1000 1000 / 1000 .CONT .Q10H [facility] Rx#:[id number] Azithromycin Inj 500 MG In NS 250 / 250 Inj 250 ML @ 250 mls/hr IV.SIG ONCE ONE Rx#:[id number] Maxipime Inj 2,000 MG In NS Inj 100 / 100 100 ML @ 200 mls/hr IV.SIG ONCE ONE Rx#:[id number] Other: Date of Last Bowel Movement 09/14/17 09/14/17 Weight On Admission 80 kg - Constitutional no acute distress - Routine HEENT Exam Head: Present: normocephalic ENT: Present: mucous membranes moist - Routine Neck Exam Present: supple. Absent: JVD - Routine Respiratory Exam Present: decreased breath sounds. Absent: rales, rhonchi - Routine Cardiovascular Exam Present: RRR - Routine Abdominal Exam Present: soft, normoactive bowel sounds. Absent: tenderness Comments: large - Routine Extremities Exam Present: edema, AV fistula - Routine Skin Exam Present: dry, warm, wounds - Routine Neurological Exam Present: altered mental status Results - Lab Results 09/15/17 04:05 09/15/17 04:05 Most recent lab results Calcium 8.7 mg/dL (8.5-10.1) 09/15/17 04:05 Assessment and Plan - Assessment (1) End stage renal disease on dialysis Code(s): N18.6 - End stage renal disease; Z99.2 - Dependence on renal dialysis Status: Acute Plan: The patient has been on hemodialysis Tuesday, and Tuesday. Last Hemodialysis was Tuesday Epogen with dialysis Continue Renvela and Sensipar when able to take PO Hemodialysis today will remove fluid as tolerated. (2) Diabetes Code(s): E11.9 - Type 2 diabetes mellitus without complications Status: Acute Plan: Maintain BS at 140 mg/dl to 180mg/dl (3) Aspiration pneumonia of both lungs Code(s): J69.0 - Pneumonitis due to inhalation of food and vomit Status: Acute - Plan Has been started on antibiotics. <Lizeth Bell - Last Filed: 10/06/17 23:37> History of Present Illness Primary Care Provider: Sharan Hill MD [facility] - Medical History Medical History: Medical History (Last Updated 09/14/17 @ 22:40 by Liane Rodriguez MD) AV (arteriovenous fistula) Anxiety Benign prostatic hyperplasia Bipolar disorder Cerebral infarction Chronic kidney disease Contracture, left hand Dysphagia Dysphagia, oropharyngeal phase End stage renal disease Esophagitis Gastroesophageal reflux disease Heart failure Hyperlipidemia Hypothyroidism Iron deficiency anemia Mood disorder Muscle weakness Osteoporosis Peripheral vascular disease Renal dialysis status Schizophrenia Type 2 diabetes mellitus - Surgical History Surgical History: Surgical History (Last Updated 09/14/17 @ 22:39 by Liane Rodriguez MD) H/O cardiac catheterization - Family History Family History: Family History (Last Updated 09/14/17 @ 22:40 by Liane Rodriguez MD) Other No family history of cardiac disease Results - Lab Results 09/22/17 08:24 09/22/17 08:24 Most recent lab results Calcium 8.2 mg/dL (8.5-10.1) L 09/22/17 08:24 Assessment and Plan - Assessment (1) End stage renal disease on dialysis Code(s): N18.6 - End stage renal disease; Z99.2 - Dependence on renal dialysis Status: Acute (2) Aspiration pneumonia of both lungs Code(s): J69.0 - Pneumonitis due to inhalation of food and vomit Status: Acute (3) Diabetes Code(s): E11.9 - Type 2 diabetes mellitus without complications Status: Acute - Plan Patient seen and examined, agree with above. HD TTS. Continue antibiotics. <Khalida Laura - Last Filed: 09/15/17 11:09> (3) Aspiration pneumonia of both lungs Qualifiers: Aspiration pneumonia type: unspecified Lung location: lower lobe of lung Qualified Code(s): J69.0 - Pneumonitis due to inhalation of food and vomit <Lizeth Bell - Last Filed: 10/06/17 23:37> (2) Aspiration pneumonia of both lungs Qualifiers: Aspiration pneumonia type: unspecified Lung location: lower lobe of lung Qualified Code(s): J69.0 - Pneumonitis due to inhalation of food and vomit (3) Diabetes Qualifiers: Diabetes mellitus type: type 2 Chronic kidney disease stage: on chronic dialysis
[2017-09-15 13:09] LABS: Hepatitis A IgM Antibody Nonreactive (Nonreactive); Hepatitits B Surface Antigen Nonreactive (Nonreactive)
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
[2017-09-15] MEDS ORDERED: Azithromycin Inj 500 MG in Sodium Chlor 0.9% Inj 250 ML IV.SIG SCH (16:00)
--- NOTE | 2017-09-15 16:41 | P.DIET ---
Nutritional Evaluation Type of nutrition evaluation: initial Nutrition consult regarding: Diet Evaluation Nutrition screening: [facility] Screening comments: 09/15/17 [facility] for Wound Subjective Barriers to Nutrition: Swallowing problem Subjective Comments: Pt gone from floor, when visit attempted Objective - Diagnosis HCAP, Asp PNA - Objective Spinal Cord Impairment: Quadriplegia (10-15 lbs) Weight Subtracted: 10 lbs [place] body weight: 70.5 kg % IBW: 114 Body Weight Used for Calculations: Actual (Previous Admission Ht 180.71cm used for Assessment) Energy Needs - Lower Range (kCal/kg): 28 Energy Needs - Upper Range (kCal/kg): 33 Lower Limit kCal/kg (kCals): 2,240 Upper Limit kCal/kg (kCals): 2,640 Lower Limit Protein Factor (Grams per Kg): 1.2 Upper Limit Protein Factor (Grams per Kg): 1.5 Lower Protein Needs (Protein): 96 Upper Protein Needs (Protein): 120 Dietitian Reviewed in Medical Record: Current diet, Curent medications, Intake & Output, Labs, Medical history, Wound/DTI Diet Order: NPO Speech Therapy Recommendations: Yes (NPO w/Rec for Modified Barium Swallow Study ) Wound Care Note: 09/15/17 WOCN noted w/Left Lower Leg Wound Objective Comments: PMH: Quadriplegia, Anxiety, Depression, Schizophrenia, Mood DO, Bipolar DO, DM-2 , ESRD-on HD T-Th-Sat, GERD, Esophagitis, hyperlipidemia, Heart Failure, Arteriovenus fistula, BPH, Cerebral Infarction, CKD, Contracture Left Hand, Dysphagia, Hypothyroidism, Iron Def.Anemia, Osteoarthritis, PVD Labs Include: H/H 8.9/28.0, BUN 63, Creatinine 8.46, estGFR 8.0, Accucheck 167, 152, 166 Assessment Assessment: Pt is at nutritional risk r/t ESRD w/need for HD, skin breakdown and dysphagia w /need for NPO. Monitor NPO status and ST Recs. Additional Recs to follow r/t Clinical Course. Recommendations: 1.Monitor NPO status 2.Monitor ST Recs 3.Additional Recs to follow r/t Clinical Course Dietitian to Monitor: Lab values, Electrolytes, Renal labs, Glucose level, Intake & Output, Weight change, Diet advancement, Wound/skin status, Swallow recommendations, Medical course
[2017-09-15] MEDS ORDERED: Morphine Inj 4 MG/ML Vial IV.PUSH PRN (19:56)
[2017-09-15] MEDS: Dextrose 5%/NaCl 0.45% Inj 1,000 ML IV.CONT SCH (21:41)
[2017-09-15] MEDS: Heparin - SQ 10,000 UNITS/ML Vial SQ SCH (22:27)
[2017-09-15] MEDS: Piperacil/Tazo 2.25 GM Premix 50 ML IV.SIG SCH (22:28)
[2017-09-16] MEDS: Senna/Docusate Sodium 8.6/50 MG Tablet PO SCH ×3 (03:55→21:11)
[2017-09-16] MEDS: Insulin NovoLIN Regular Correctional Sugar Inj SQ SCH ×6 (03:55→21:26)
[2017-09-16] MEDS: Heparin - SQ 10,000 UNITS/ML Vial SQ SCH ×2 (08:50→21:10)
--- NOTE | 2017-09-16 09:48 | FL ---
EXAM DATE: 09/16/2017 9:45 AM EDT AGE/SEX: 62 years / Male INDICATIONS: Dysphagia. Admitted for aspiration pneumonia CLINICAL DATA: This is the patient's subsequent encounter. Patient reports that signs and symptoms h ave been present for 3 days and indicates a pain score of 0/10. MEDICAL/SURGICAL HISTORY: Gastroesophageal reflux disease. Cardiovascular disease. Diabetes. E sophagitis. End stage renal disease. None. COMPARISON: No prior exams available for comparison. FLUORO TIME: 1.1 IMAGE COUNT: 0 FINDINGS: A modified barium swallow was performed with speech pathology. Patient was given a variety of liquids to swallow. CONCLUSION: For a full detailed report, see report by the speech pathologist. Electronically signed by: Maykel Sharp MD 09/16/2017 9:46 AM EDT
[2017-09-16] MEDS: Piperacil/Tazo 2.25 GM Premix 50 ML IV.SIG SCH ×2 (10:31→21:09)
--- NOTE | 2017-09-16 12:28 | P.PNIM ---
Subjective Interval history: Mr. Sharpe was afebrile with stable vital signs overnight; O2 saturations 92-99% on 2 L O2 via NC. Patient initially seen with physical therapy. Patient reports generalized pain and itchiness; patient also states that he is hungry. Patient states that he does not breathe well. No new symptoms reported. Physical Exam Vital signs: Vital Signs 09/15/17 20:00 09/16/17 00:00 09/16/17 04:00 Temperature 98.2 F 98.4 F 98.3 F Pulse Rate 92 H 88 80 Respiratory Rate 18 18 18 Blood Pressure 112/67 101/57 L 120/70 Pulse Oximetry 97 95 95 09/16/17 08:00 Temperature 97.7 F Pulse Rate 80 Respiratory Rate 18 Blood Pressure 107/61 Pulse Oximetry 96 Intake & Output 09/15/17 09/16/17 09/16/17 18:59 06:59 18:59 Intake Total 1300 / 1300 50 / 50 Output Total 1999 0 / 0 Balance -700 / -700 50 / 50 Intake: IV 1300 / 1300 50 / 50 NS Inj 1,000 ML @ 100 mls/hr IV 1300 / 1300 .CONT .Q10H [facility] Rx#:[id number] Zosyn 2.25 GM Premix 50 ML @ 50 / 50 100 mls/hr IV.SIG Q12H FLAQUITA Rx#: [id number] Oral 0 / 0 0 / 0 Output: Urine 0 / 0 0 / 0 Hemodialysis Amount 1999 Other: Date of Last Bowel Movement 09/14/17 09/14/17 09/14/17 Narrative: Gen: No acute distress Skin: Left distal lower extremity wrapped HEENT: Eyes: EOM grossly I. Nose without drainage. Cardiovascular: Regular rate and rhythm; normal peripheral perfusion grossly Respiratory: Lungs clear to auscultation bilaterally; normal rate Abdomen: Soft, nontender, nondistended. Musculoskeletal: Patient with some generalized extremity atrophy and left upper extremity contracture. 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 At times patient seems confused or not inclined to answer. No obvious CN defects Results - Labs CBC & Chem 7: 09/16/17 14:40 09/16/17 14:40 Laboratory Results - last 24 hr 09/15/17 09/15/17 09/15/17 11:31 18:02 21:33 POC Glucose 115 H 137 H Hepatitis A IgM Ab Nonreactive Hep Bs Antigen Nonreactive Hep B Core IgM Ab Nonreactive Hep C IgG Ab Nonreactive 09/16/17 09/16/17 02:26 10:12 POC Glucose 205 H 227 H Hepatitis A IgM Ab Hep Bs Antigen Hep B Core IgM Ab Hep C IgG Ab - Imaging Impressions Videofluoroscopic Swallow 09/16/17 00:00 CONCLUSION: For a full detailed report, see report by the speech pathologist. Assessment and Plan - Assessment (1) Aspiration pneumonia of both lungs Code(s): J69.0 - Pneumonitis due to inhalation of food and vomit Status: Acute (2) End stage renal disease on dialysis Code(s): N18.6 - End stage renal disease; Z99.2 - Dependence on renal dialysis Status: Acute (3) Diabetes Code(s): E11.9 - Type 2 diabetes mellitus without complications Status: Acute - Plan Mr. Sharpe is a 62 yo M w/ PMH ESRD and CVA who presented via residential with: Pneumonia Impression: Suspect aspiration. CXR on admission with bibasilar infiltrates suggestive of bibasilar pneumonia. Reported dry cough at prior facility. No leukocytosis. Stable saturations on 2 L O2 via NC. On dialysis; lives in health care setting -Continue to monitor VS, respiratory function and provide NC O2 as needed -Will cover for aspiration pneumonia -Initially treated with Cefepime/Azithromycin (09/14-09/15); transitioned to Zosyn for aspiration coverage -Sputum cultures pending -Speech therapy evaluation; barium swallow-> Pureed foods with nectar thickened liquids Abdominal pain Impression: None reported on exam today; exam benign. Reported complaint for constipation requiring enemas and concern for obstruction at his prior residential CT abdomen/pelvis- diffuse fatty infiltration. Stable 2cm L adrenal mass. Bilateral kidney atrophy w/o hydronephrosis. Diverticulosis scattered in sigmoid colon w/o inflammatory changes. Stable moderate hiatal hernia at GE junction -Continue PRN bowel regimen -Continue Miralax daily -Lipase repeated -631-> 993; concern for pancreatitis. LFT's normal; reassuring of lack of common duct pathology -Will consult GI -Will check amylase, triglycerides, LDH, CRP -Will check abdominal US for gallstone assessment ESRD Impression: Chronic ESRD requiring dialysis -Nephrology consulted -Continue dialysis as needed T2DM Impression: On home Levemir 30 U daily, sliding scale -Will give SS insulin while inpatient and hold Levemir while NPO Other chronic medical conditions -Home Tramadol, psychiatric medications, vitamins restarted DVT PPX -Continue Heparin 5 K U BID Discharge Planning: Will continue pneumonia treatment and determine ability for oral intake prior to discharge back to prior facility (1) Aspiration pneumonia of both lungs Qualifiers: Aspiration pneumonia type: unspecified Lung location: lower lobe of lung Qualified Code(s): J69.0 - Pneumonitis due to inhalation of food and vomit (3) Diabetes Qualifiers: Chronic kidney disease stage: on chronic dialysis
[2017-09-16 14:54] LABS: Baso % (Auto) 0.6 % (0.0-2.0); Eos # (Auto) 0.1 th/mm3 (0.0-0.4); Eos % (Auto) 2.7 % (0.0-4.0); Hematocrit 30.1 % (39.0-51.0); Hemoglobin 9.5 gm/dL (13.0-17.0); Lymph # (Auto) 1.1 th/mm3 (1.0-4.8); Lymph % (Auto) 21.9 % (9.0-44.0); Mean Corpuscular HGB Conc 31.6 % (32.0-36.0); Mean Corpuscular Hemoglobin 28.8 pg (27.0-34.0); Mean Corpuscular Volume 91.3 fL (80.0-100.0); Mono # (Auto) 0.5 th/mm3 (0.0-0.9); Mono % (Auto) 9.9 % (0.0-8.0); Neut # (Auto) 3.3 th/mm3 (1.8-7.7); Neut % (Auto) 64.9 % (16.0-70.0); Platelet Count 278 th/mm3 (150-450); Red Blood Count 3.29 mil/mm3 (4.50-5.90); Red Cell Distribution Width 16.9 % (11.6-17.2)
[2017-09-16 15:22] LABS: Alanine Aminotransferase 13 U/L (12-78); Albumin 2.9 g/dL (3.4-5.0); Alkaline Phosphatase 105 U/L (45-117); Anion Gap 9 meq/L (5-15); Aspartate Aminotransferase 8 U/L (15-37); Blood Urea Nitrogen 32 mg/dL (7-18); Calcium 8.6 mg/dL (8.5-10.1); Carbon Dioxide 29.6 meq/L (21.0-32.0); Chloride 100 meq/L (98-107); Glomerular Filtration Rate 11 mL/min (>89); Glucose,Random 210 mg/dL (74-106); Lipase 993 U/L (73-393); Sodium 139 meq/L (136-145); Total Protein 8.4 g/dL (6.4-8.2)
[2017-09-16] MEDS: Dextrose 5%/NaCl 0.45% Inj 1,000 ML IV.CONT SCH (16:13)
[2017-09-16] MEDS: Polyethylene Glycol 3350 17 GM Packet PO SCH (16:19)
[2017-09-16] MEDS: Escitalopram 10 MG Tablet PO SCH (16:19)
--- NOTE | 2017-09-16 17:32 | P.PNNP ---
Subjective Interval history: Patient seen in AM, alert, mild abd. distension, denies SOB, not in distress. Physical Exam Vital signs: Vital Signs 09/15/17 20:00 09/16/17 00:00 09/16/17 04:00 Temperature 98.2 F 98.4 F 98.3 F Pulse Rate 92 H 88 80 Respiratory Rate 18 18 18 Blood Pressure 112/67 101/57 L 120/70 Pulse Oximetry 97 95 95 09/16/17 08:00 09/16/17 12:00 09/16/17 17:00 Temperature 97.7 F 97.4 F L 98.0 F Pulse Rate 80 78 78 Respiratory Rate 18 16 16 Blood Pressure 107/61 110/59 L 106/55 L Pulse Oximetry 92 L 92 L 99 Intake & Output 09/15/17 09/16/17 09/16/17 18:59 06:59 18:59 Intake Total 1300 / 1300 50 / 50 1000 / 1000 Output Total 1999 0 / 0 Balance -700 / -700 50 / 50 1000 / 1000 Intake: IV 1300 / 1300 50 / 50 1000 / 1000 D5W/1/2 NS Inj 1,000 ML @ 84 1000 / 1000 mls/hr IV.CONT .[id number] [facility] Rx# :[id number] NS Inj 1,000 ML @ 100 mls/hr IV 1300 / 1300 .CONT .Q10H [facility] Rx#:[id number] Zosyn 2.25 GM Premix 50 ML @ 50 / 50 100 mls/hr IV.SIG Q12H [facility] Rx#: [id number] Oral 0 / 0 0 / 0 Output: Urine 0 / 0 0 / 0 Hemodialysis Amount 1999 Other: Date of Last Bowel Movement 09/14/17 09/14/17 09/14/17 Narrative: Gen.: No acute distress Skin: Left distal lower extremity wrapped HEENT: Normocephalic. Eyes: EOM grossly I. Nose without drainage. Cardiovascular: Regular rate and rhythm; normal peripheral perfusion grossly Respiratory: Lungs clear to auscultation bilaterally; no focal congestion Abdomen: Soft, nontender, distended. Musculoskeletal: Patient with some atrophy and contractures. Strength/ROM not inspected Neuro: Awake/alert. Left sided weakness due to old CVA. Assessment and Plan - Assessment (1) End stage renal disease on dialysis Code(s): N18.6 - End stage renal disease; Z99.2 - Dependence on renal dialysis Status: Acute Plan: The patient has been on hemodialysis Tuesday, and Tuesday. Last Hemodialysis was Tuesday Epogen with dialysis Continue Renvela and Sensipar when able to take PO Hemodialysis done yesterday. Started on feeding. Continue antibiotics. (2) Diabetes Code(s): E11.9 - Type 2 diabetes mellitus without complications Status: Acute Qualifiers: Chronic kidney disease stage: on chronic dialysis Plan: Maintain BS at 140 mg/dl to 180mg/dl (3) Aspiration pneumonia of both lungs Code(s): J69.0 - Pneumonitis due to inhalation of food and vomit Status: Acute Qualifiers: Aspiration pneumonia type: unspecified Lung location: lower lobe of lung Qualified Code(s): J69.0 - Pneumonitis due to inhalation of food and vomit - Plan Has been started on antibiotics.
[2017-09-16 19:26] LABS: Chol/HDL Ratio 3.35 Ratio; HDL Cholesterol 43.2 mg/dL (40.0-60.0)
[2017-09-16] MEDS: traZODone 100 MG Tablet PO SCH (21:10)
[2017-09-16] MEDS: lamoTRIgine 100 MG Tablet PO SCH (21:12)
[2017-09-16] MEDS: risperiDONE 0.5 MG ODT PO SCH (21:12)
[2017-09-17] MEDS: Sod Chloride 0.9% Inj 1,000 ML IV.CONT SCH ×3 (03:39→22:03)
[2017-09-17] MEDS: Insulin NovoLIN Regular Correctional Sugar Inj SQ SCH ×5 (03:58→22:05)
[2017-09-17] MEDS: Heparin - SQ 10,000 UNITS/ML Vial SQ SCH ×2 (08:27→22:04)
[2017-09-17] MEDS: Polyethylene Glycol 3350 17 GM Packet PO SCH (08:29)
[2017-09-17] MEDS: Escitalopram 10 MG Tablet PO SCH (08:30)
[2017-09-17] MEDS: risperiDONE 0.5 MG ODT PO SCH ×2 (08:30→22:04)
[2017-09-17] MEDS: Pantoprazole Sodium 20 MG DR Tablet PO SCH (08:30)
[2017-09-17] MEDS: Senna/Docusate Sodium 8.6/50 MG Tablet PO SCH ×2 (08:30→22:06)
[2017-09-17] MEDS: Piperacil/Tazo 2.25 GM Premix 50 ML IV.SIG SCH ×2 (09:00→22:13)
--- NOTE | 2017-09-17 09:23 | US ---
EXAM DATE: 09/17/2017 9:06 AM EDT AGE/SEX: 62 years / Male INDICATIONS: Abdominal pain. CLINICAL DATA: This is the patient's subsequent encounter. Patient reports that signs and symptoms h ave been present for 1 day and indicates a pain score of 2/10. MEDICAL/SURGICAL HISTORY: . Stroke. Congestive heart failure. Hypertension. Renal failure. GERD . Dialysis. None. COMPARISON: [facility] – [place], CT ABDOMEN & PELVIS W/O CONTRAST, 09/14/2017. . MEASUREMENTS: Liver:__ 14.4 cm. Common Bile Duct:___ 6mm. Right Kidney:___8.1 x 3.9 x 3.9 cm. Left Kidney:___6.9 x 3.8 x 3.7 cm. Spleen:___10.9 cm. FINDINGS: Liver: Increased echotexture without focal lesion or ductal dilation. Portal Vein: Hepatopedal flow seen in portal vein. Common Duct: No intraluminal mass or stone visualized. Gallbladder: Demonstrates no wall thickening or pericholecystic fluid. Stones visualized. Pancreas: The visualized portions are within normal limits Right Kidney: Increased echotexture. No mass or hydronephrosis. Left Kidney: Increased echotexture. No mass or hydronephrosis. Ascites: None Pleural Effusion: None Spleen: No focal lesion. Aorta: Not visualized. IVC: Not well seen Other: None. CONCLUSION: 1. Cholelithiasis. No wall thickening or pericholecystic fluid. 2. Echogenic liver most characteristic of hepatic steatosis. Electronically signed by: Damián Keith MD 09/17/2017 9:21 AM EDT
--- NOTE | 2017-09-17 11:39 | P.PNNP ---
Subjective Interval history: Patient seen during dialysis Physical Exam Vital signs: Vital Signs 09/16/17 12:00 09/16/17 17:00 09/16/17 20:00 Temperature 97.4 F L 98.0 F 98.3 F Pulse Rate 78 78 83 Respiratory Rate 16 16 18 Blood Pressure 110/59 L 106/55 L 115/56 L Pulse Oximetry 92 L 99 97 09/16/17 21:40 09/16/17 23:45 09/17/17 00:00 Temperature 98 F Pulse Rate 80 77 80 Respiratory Rate 18 Blood Pressure 110/56 L Pulse Oximetry 96 09/17/17 04:00 Temperature 97.8 F Pulse Rate 76 Respiratory Rate 18 Blood Pressure 124/60 Pulse Oximetry 97 Intake & Output 09/16/17 09/17/17 09/17/17 18:59 06:59 18:59 Intake Total 1050 / 1050 1000 / 1000 Balance 1050 / 1050 1000 / 1000 Intake: IV 1050 / 1050 1000 / 1000 D5W/1/2 NS Inj 1,000 ML @ 84 1000 / 1000 mls/hr IV.CONT .[id number] [facility] Rx# :[id number] NS Inj 1,000 ML @ 125 mls/hr IV 1000 / 1000 .CONT .Q8H [facility] Rx#:[id number] Zosyn 2.25 GM Premix 50 ML @ 50 / 50 100 mls/hr IV.SIG Q12H [facility] Rx#: [id number] Oral 0 / 0 Other: Date of Last Bowel Movement 09/14/17 - Constitutional no acute distress - Routine HEENT Exam Eye: Present: EOMI - Routine Neck Exam Present: supple - Routine Respiratory Exam Present: CTA bilaterally - Routine Cardiovascular Exam Present: RRR - Routine Abdominal Exam Present: soft - Routine Extremities Exam Present: edema Assessment and Plan - Assessment (1) End stage renal disease on dialysis Code(s): N18.6 - End stage renal disease; Z99.2 - Dependence on renal dialysis Status: Acute Plan: He seen during the hemodialysis 2 L is taken on 3K bath continue to monitor his progress Has been started on antibiotics. (2) Aspiration pneumonia of both lungs Code(s): J69.0 - Pneumonitis due to inhalation of food and vomit Status: Acute Qualifiers: Aspiration pneumonia type: unspecified Lung location: lower lobe of lung Qualified Code(s): J69.0 - Pneumonitis due to inhalation of food and vomit Plan: On Zosyn (3) Diabetes Code(s): E11.9 - Type 2 diabetes mellitus without complications Status: Acute Qualifiers: Diabetes mellitus type: type 2 Chronic kidney disease stage: on chronic dialysis Plan: On regular sliding scale insulin,
--- NOTE | 2017-09-17 15:22 | P.CONGI ---
History of Present Illness Consult date: 09/17/17 Consult reason: Elevated lipase Chief complaint: HCAP, Aspiration Pneumonia History of Present Illness: This is 62-year-old -[place] male with ESRD on dialysis, quadriplegic who presents to the emergency department for the evaluation of constipation and possible obstruction. He has had bowel movement since. CT of the abdomen on 09/14 showed stool throughout the colon without obstruction or ileus. Lower lungs significant for bibasilar infiltrates. There is also concern for aspiration and being treated for Pneumonia. GI consulted for elevated lipase 993. US on 09/17 showed gallstones, and hepatic steatosis. LFT wnl. Pt endorses diffused abd pain. Denies nausea, vomiting, change in bowels, or fever. Admits to hx of pancreatitis 5-10 yrs ago, used to be heavy alcohol drinker but quit a yr ago. <Rosetta Ho - Last Filed: 09/25/17 07:11> Review of Systems All other systems reviewed negative except as stated in HPI <Rosetta Ho - Last Filed: 09/25/17 07:11> PMFSH - Medical History Medical History: Medical History (Last Reviewed 09/16/17 @ 13:02 by Makayla Salazar) AV (arteriovenous fistula) Anxiety Benign prostatic hyperplasia Bipolar disorder Cerebral infarction Chronic kidney disease Contracture, left hand Dysphagia Dysphagia, oropharyngeal phase End stage renal disease Esophagitis Gastroesophageal reflux disease Heart failure Hyperlipidemia Hypothyroidism Iron deficiency anemia Mood disorder Muscle weakness Osteoporosis Peripheral vascular disease Renal dialysis status Schizophrenia Type 2 diabetes mellitus - Surgical History Surgical History: Surgical History (Last Reviewed 09/16/17 @ 13:02 by Makayla Salazar) H/O cardiac catheterization - Family History Family History: Family History (Last Updated 09/14/17 @ 22:40 by Liane Rodriguez MD) Other No family history of cardiac disease <Sarwat Rain - Last Filed: 09/17/17 19:27> - History History Provided By: Patient, Medical Record - Medical History Medical History: Medical History (Last Reviewed 09/22/17 @ 08:26 by Bashir Dubois) AV (arteriovenous fistula) Anxiety Benign prostatic hyperplasia Bipolar disorder Cerebral infarction Chronic kidney disease Contracture, left hand Dysphagia Dysphagia, oropharyngeal phase End stage renal disease Esophagitis Gastroesophageal reflux disease Heart failure Hyperlipidemia Hypothyroidism Iron deficiency anemia Mood disorder Muscle weakness Osteoporosis Peripheral vascular disease Renal dialysis status Schizophrenia Type 2 diabetes mellitus - Surgical History Surgical History: Surgical History (Last Reviewed 09/22/17 @ 08:27 by Bashir Dubois) H/O cardiac catheterization - Family History Family History: Family History (Last Reviewed 09/22/17 @ 08:27 by Bashir Dubois) Other No family history of cardiac disease - Tobacco History Second Hand Smoke Exposure: No Smoking Status: Never smoker - Alcohol History How Often Do You Have a Drink Containing Alcohol: Never - Substance Use History Substance History: No History of Abuse - Travel History Recent Travel in the [place] Within the Last 8 Weeks: No Recent Travel Out of the Country Within the Last 8 Weeks: No - Immunization History Tetanus Immunization: Unsure Hx Influenza Vaccine This Season: Yes <Rosetta Ho - Last Filed: 09/25/17 07:11> Medications and Allergies Active Medications: Active Medications Acetaminophen (Tylenol) 650 mg PO Q4H PRN PRN Reason: Temp > 100.4 Al Hydroxide/Mg Hydroxide (Milk Of Magnesia Liq) 30 ml PO Q12H PRN PRN Reason: Mild Constipation Bisacodyl (Dulcolax Supp) 10 mg RECTAL DAILY PRN PRN Reason: SEVERE CONSITIPATION Cinacalcet (Sensipar) 30 mg PO DAILY [facility] Last Admin: 09/17/17 08:30 Dose: 30 mg Clonidine HCl (Catapres) 0.1 mg PO UNSCH PRN PRN Reason: SEE LABEL COMMENTS Dextrose (D50w Vial) 50 ml IV.PUSH UNSCH PRN PRN Reason: PER HYPOGLYCEMIA PROTOCOL Diphenhydramine HCl (Benadryl Inj) 25 mg IV.PUSH Q6H PRN PRN Reason: itching Last Admin: 09/17/17 12:05 Dose: 25 mg Epoetin Camilo (Epogen Inj) 10,000 unit IV.PUSH UNSCH PRN PRN Reason: SEE LABEL COMMENTS Last Admin: 09/17/17 11:36 Dose: 10,000 unit Escitalopram Oxalate (Lexapro) 10 mg PO DAILY [facility] Last Admin: 09/17/17 08:30 Dose: 10 mg Gelatin (Gelfoam 12 Mm/7 Mm Topical) 1 foam TOPICAL PRN PRN PRN Reason: help stop bleeding from site Gentamicin Sulfate (Gentamicin Inj) 20 mg OTHER WITH DIALYSIS PRN PRN Reason: Dwell Gentamycin Lock Glucagon (Glucagon Inj) 1 mg OTHER PRN PRN PRN Reason: for Hypoglycemia Protocol Heparin Sodium (Porcine) (Heparin Inj) 8,000 units IV.FLUSH WITH DIALYSIS PRN PRN Reason: for machine prime Heparin Sodium (Porcine) (Heparin Inj) 1,000 units OTHER WITH DIALYSIS PRN PRN Reason: Dwell Heparin to Fill Catheter Heparin Sodium (Porcine) (Heparin Inj) 5,000 units SQ Q12HR [facility] Last Admin: 09/17/17 08:27 Dose: 5,000 units Hydroxyzine HCl (Atarax) 25 mg PO QID PRN PRN Reason: Itching Last Admin: 09/17/17 03:43 Dose: 25 mg Albumin Human (Flexbumin 25% Inj) 100 mls @ 60 mls/hr IV.SIG WITH DIALYSIS PRN PRN Reason: hypotension / volume replace Sodium Chloride (Ns Inj) 1,000 mls @ 0 mls/hr OTHER .Q0M PRN PRN Reason: for prime and rinse back Sodium Chloride (Ns Inj) 1,000 mls @ 200 mls/hr OTHER .Q5H PRN PRN Reason: for dialyzer flush PRN Sodium Chloride (Ns Inj) 1,000 mls @ 0 mls/hr IV.CONT .Q0M PRN PRN Reason: hypotension / volume replace Piperacillin/Tazobactam/Dextrose (Zosyn 2.25 Gm Premix) 50 mls @ 100 mls/hr IV.SIG Q12H [facility] Last Infusion: 09/17/17 19:25 Dose: Infused Sodium Chloride (Ns Inj) 1,000 mls @ 125 mls/hr IV.CONT .Q8H [facility] Last Admin: 09/17/17 08:21 Dose: 125 mls/hr Insulin Human Regular (Novolin R Correctional Sugar Inj) 0 units SQ ACHS AND 3AM [facility]; Protocol Last Admin: 09/17/17 19:23 Dose: Not Given Lactulose (Lactulose Liq) 30 ml PO DAILY PRN PRN Reason: SEVERE CONSITIPATION Lamotrigine (Lamictal) 200 mg PO HS [facility] Last Admin: 09/16/17 21:12 Dose: 200 mg Mannitol (Mannitol Inj) 12.5 gm IV.PUSH PRN PRN PRN Reason: hypotension / volume replace Mirtazapine (Remeron Soltab Odt) 15 mg PO HS [facility] Last Admin: 09/16/17 21:12 Dose: 15 mg Nitroglycerin (Nitrostat Sl) 0.4 mg SL Q5M PRN PRN Reason: CHEST PAIN Ondansetron HCl (Zofran Odt) 4 mg PO Q6H PRN PRN Reason: NAUSEA OR VOMITING Ondansetron HCl (Zofran Inj) 4 mg IV.PUSH UNSCH PRN PRN Reason: NAUSEA OR VOMITING Pantoprazole Sodium (Protonix) 20 mg PO DAILY [facility] Last Admin: 09/17/17 08:30 Dose: 20 mg Polyethylene Glycol (Miralax) 17 gm PO DAILY [facility] Last Admin: 09/17/17 08:29 Dose: 17 gm Risperidone (Risperdal M-Tab) 0.5 mg PO BID [facility] Last Admin: 09/17/17 08:30 Dose: 0.5 mg Senna/Docusate Sodium (Radha-Colace) 1 tab PO BID [facility] Last Admin: 09/17/17 08:30 Dose: 1 tab Sennosides (Senokot) 17.2 mg PO Q12H PRN PRN Reason: Moderate Constipation Sevelamer Carbonate (Renvela) 2,400 mg PO AC [facility] Last Admin: 09/17/17 19:23 Dose: Not Given Sodium Chloride (Ns Flush) 2 ml IV.FLUSH PRN PRN PRN Reason: FLUSH AFTER USING IV ACCESS Sodium Chloride (Ns Flush) 5 ml IV.FLUSH PRN PRN PRN Reason: flush each lumen during HD Tamsulosin HCl (Flomax) 0.4 mg PO DAILY [facility] Last Admin: 09/17/17 08:30 Dose: 0.4 mg Temazepam (Restoril) 15 mg PO HS PRN PRN Reason: INSOMNIA Tramadol HCl (Ultram) 50 mg PO Q6H PRN PRN Reason: SEE LABEL COMMENTS Trazodone HCl (Desyrel) 150 mg PO HS [facility] Last Admin: 09/16/17 21:10 Dose: 150 mg <Sarwat Rain E - Last Filed: 09/17/17 19:27> Active Medications: Active Medications Acetaminophen (Tylenol) 650 mg PO Q4H PRN PRN Reason: Temp > 100.4 Al Hydroxide/Mg Hydroxide (Milk Of Magnesia Liq) 30 ml PO Q12H PRN PRN Reason: Mild Constipation Bisacodyl (Dulcolax Supp) 10 mg RECTAL DAILY PRN PRN Reason: SEVERE CONSITIPATION Cinacalcet (Sensipar) 30 mg PO DAILY [facility] Last Admin: 09/17/17 08:30 Dose: 30 mg Clonidine HCl (Catapres) 0.1 mg PO UNSCH PRN PRN Reason: SEE LABEL COMMENTS Dextrose (D50w Vial) 50 ml IV.PUSH UNSCH PRN PRN Reason: PER HYPOGLYCEMIA PROTOCOL Diphenhydramine HCl (Benadryl Inj) 25 mg IV.PUSH Q6H PRN PRN Reason: itching Last Admin: 09/17/17 12:05 Dose: 25 mg Epoetin Camilo (Epogen Inj) 10,000 unit IV.PUSH UNSCH PRN PRN Reason: SEE LABEL COMMENTS Last Admin: 09/17/17 11:36 Dose: 10,000 unit Escitalopram Oxalate (Lexapro) 10 mg PO DAILY [facility] Last Admin: 09/17/17 08:30 Dose: 10 mg Gelatin (Gelfoam 12 Mm/7 Mm Topical) 1 foam TOPICAL PRN PRN PRN Reason: help stop bleeding from site Gentamicin Sulfate (Gentamicin Inj) 20 mg OTHER WITH DIALYSIS PRN PRN Reason: Dwell Gentamycin Lock Glucagon (Glucagon Inj) 1 mg OTHER PRN PRN PRN Reason: for Hypoglycemia Protocol Heparin Sodium (Porcine) (Heparin Inj) 8,000 units IV.FLUSH WITH DIALYSIS PRN PRN Reason: for machine prime Heparin Sodium (Porcine) (Heparin Inj) 1,000 units OTHER WITH DIALYSIS PRN PRN Reason: Dwell Heparin to Fill Catheter Heparin Sodium (Porcine) (Heparin Inj) 5,000 units SQ Q12HR [facility] Last Admin: 09/17/17 08:27 Dose: 5,000 units Hydroxyzine HCl (Atarax) 25 mg PO QID PRN PRN Reason: Itching Last Admin: 09/17/17 03:43 Dose: 25 mg Albumin Human (Flexbumin 25% Inj) 100 mls @ 60 mls/hr IV.SIG WITH DIALYSIS PRN PRN Reason: hypotension / volume replace Sodium Chloride (Ns Inj) 1,000 mls @ 0 mls/hr OTHER .Q0M PRN PRN Reason: for prime and rinse back Sodium Chloride (Ns Inj) 1,000 mls @ 200 mls/hr OTHER .Q5H PRN PRN Reason: for dialyzer flush PRN Sodium Chloride (Ns Inj) 1,000 mls @ 0 mls/hr IV.CONT .Q0M PRN PRN Reason: hypotension / volume replace Piperacillin/Tazobactam/Dextrose (Zosyn 2.25 Gm Premix) 50 mls @ 100 mls/hr IV.SIG Q12H [facility] Last Admin: 09/17/17 09:00 Dose: 100 mls/hr Sodium Chloride (Ns Inj) 1,000 mls @ 125 mls/hr IV.CONT .Q8H [facility] Last Admin: 09/17/17 08:21 Dose: 125 mls/hr Insulin Human Regular (Novolin R Correctional Sugar Inj) 0 units SQ ACHS AND 3AM [facility]; Protocol Last Admin: 09/17/17 08:24 Dose: 1 units Lactulose (Lactulose Liq) 30 ml PO DAILY PRN PRN Reason: SEVERE CONSITIPATION Lamotrigine (Lamictal) 200 mg PO [facility] Last Admin: 09/16/17 21:12 Dose: 200 mg Mannitol (Mannitol Inj) 12.5 gm IV.PUSH PRN PRN PRN Reason: hypotension / volume replace Mirtazapine (Remeron Soltab Odt) 15 mg PO [facility] Last Admin: 09/16/17 21:12 Dose: 15 mg Nitroglycerin (Nitrostat Sl) 0.4 mg SL Q5M PRN PRN Reason: CHEST PAIN Ondansetron HCl (Zofran Odt) 4 mg PO Q6H PRN PRN Reason: NAUSEA OR VOMITING Ondansetron HCl (Zofran Inj) 4 mg IV.PUSH UNSCH PRN PRN Reason: NAUSEA OR VOMITING Pantoprazole Sodium (Protonix) 20 mg PO DAILY [facility] Last Admin: 09/17/17 08:30 Dose: 20 mg Polyethylene Glycol (Miralax) 17 gm PO DAILY [facility] Last Admin: 09/17/17 08:29 Dose: 17 gm Risperidone (Risperdal M-Tab) 0.5 mg PO BID [facility] Last Admin: 09/17/17 08:30 Dose: 0.5 mg Senna/Docusate Sodium (Radha-Colace) 1 tab PO BID [facility] Last Admin: 09/17/17 08:30 Dose: 1 tab Sennosides (Senokot) 17.2 mg PO Q12H PRN PRN Reason: Moderate Constipation Sevelamer Carbonate (Renvela) 2,400 mg PO [facility] Last Admin: 09/17/17 08:30 Dose: 2,400 mg Sodium Chloride (Ns Flush) 2 ml IV.FLUSH PRN PRN PRN Reason: FLUSH AFTER USING IV ACCESS Sodium Chloride (Ns Flush) 5 ml IV.FLUSH PRN PRN PRN Reason: flush each lumen during HD Tamsulosin HCl (Flomax) 0.4 mg PO DAILY [facility] Last Admin: 09/17/17 08:30 Dose: 0.4 mg Temazepam (Restoril) 15 mg PO HS PRN PRN Reason: INSOMNIA Tramadol HCl (Ultram) 50 mg PO Q6H PRN PRN Reason: SEE LABEL COMMENTS Trazodone HCl (Desyrel) 150 mg PO [facility] Last Admin: 09/16/17 21:10 Dose: 150 mg <Rosetta Ho - Last Filed: 09/25/17 07:11> Allergies Allergy/AdvReac Type Severity Reaction Status Date / Time methadone Allergy Severe Anaphylaxis Verified 09/14/17 14:45 acetaminophen Allergy Unknown Anaphylaxis Verified 09/14/17 14:45 propoxyphene Allergy Unknown Anaphylaxis Verified 09/14/17 14:45 Home Medications Medication Instructions Recorded Confirmed Type B complex-vitamin C-folic acid 1 tab PO DAILY 09/14/17 09/14/17 History [Estrella-Rafa] ascorbic acid (vitamin C) [Vitamin 500 mg PO BID 09/14/17 09/14/17 History C] bisacodyl 5 mg PO TID PRN 09/14/17 09/14/17 History cinacalcet [Sensipar] 30 mg PO DAILY 09/14/17 09/14/17 History escitalopram oxalate 10 mg PO DAILY 09/14/17 09/14/17 History gabapentin 200 mg PO HS 09/14/17 09/14/17 History hydroxyzine HCl 25 mg PO TID-QID PRN 09/14/17 09/14/17 History insulin aspart U-100 [Novolog See Label Instructions .ROUTE 09/14/17 09/14/17 History U-100 Insulin aspart] .COMPLEX lamotrigine [Lamictal] 200 mg PO 09/14/17 09/14/17 History mirtazapine 15 mg PO HS 09/14/17 09/14/17 History multivitamin 1 tab PO DAILY 09/14/17 09/14/17 History omeprazole 20 mg PO DAILY 09/14/17 09/14/17 History ondansetron HCl [Zofran] 8 mg PO Q6HR PRN 09/14/17 09/14/17 History polyethylene glycol 3350 [Miralax] 17 g PO DAILY 09/14/17 09/14/17 History risperidone 0.5 mg PO BID 09/14/17 09/14/17 History sevelamer carbonate [Renvela] 2,400 mg PO AC 09/14/17 09/14/17 History tamsulosin [Flomax] 0.4 mg PO DAILY 09/14/17 09/14/17 History tramadol 50 mg PO Q6H PRN 09/14/17 09/14/17 History trazodone 150 mg PO HS 09/14/17 09/14/17 History Exam Vital signs: Vital Signs 09/16/17 20:00 09/16/17 21:40 09/16/17 23:45 Temperature 98.3 F Pulse Rate 83 80 77 Respiratory Rate 18 Blood Pressure 115/56 L Pulse Oximetry 97 09/17/17 00:00 09/17/17 04:00 09/17/17 08:00 Temperature 98 F 97.8 F Pulse Rate 80 76 75 Respiratory Rate 18 18 Blood Pressure 110/56 L 124/60 163/69 H Pulse Oximetry 96 97 97 09/17/17 14:00 09/17/17 16:00 09/17/17 17:32 Temperature 98.3 F 98.6 F Pulse Rate 86 79 Respiratory Rate 17 17 Blood Pressure 140/77 115/62 Pulse Oximetry 97 100 99 Intake & Output 09/17/17 09/17/17 09/18/17 06:59 18:59 06:59 Intake Total 50 / 50 1000 / 1000 50 / 50 Output Total 1999 / 1999 Balance 50 / 50 -1000 / -1000 50 / 50 Intake: IV 50 / 50 1000 / 1000 50 / 50 NS Inj 1,000 ML @ 125 mls/hr IV 1000 / 1000 .CONT .Q8H [facility] Rx#:[id number] Zosyn 2.25 GM Premix 50 ML @ 50 / 50 50 / 50 100 mls/hr IV.SIG Q12H [facility] Rx#: [id number] Oral 0 / 0 Output: Hemodialysis Amount 1999 Other: Date of Last Bowel Movement 09/14/17 # Bowel Movements 0 <Sa Koffiud E - Last Filed: 09/17/17 19:27> Vital signs: Vital Signs 09/16/17 17:00 09/16/17 20:00 09/16/17 21:40 Temperature 98.0 F 98.3 F Pulse Rate 78 83 80 Respiratory Rate 16 18 Blood Pressure 106/55 L 115/56 L Pulse Oximetry 99 97 09/16/17 23:45 09/17/17 00:00 09/17/17 04:00 Temperature 98 F 97.8 F Pulse Rate 77 80 76 Respiratory Rate 18 18 Blood Pressure 110/56 L 124/60 Pulse Oximetry 96 97 09/17/17 08:00 09/17/17 14:00 Temperature 98.3 F Pulse Rate 75 86 Respiratory Rate 17 Blood Pressure 163/69 H 140/77 Pulse Oximetry 97 97 Intake & Output 09/16/17 09/17/17 09/17/17 18:59 06:59 18:59 Intake Total 1050 / 1050 50 / 50 1000 / 1000 Output Total 1999 Balance 1050 / 1050 50 / 50 -1000 / -1000 Intake: IV 1050 / 1050 50 / 50 1000 / 1000 D5W/1/2 NS Inj 1,000 ML @ 84 1000 / 1000 mls/hr IV.CONT .[id number] [facility] Rx# :[id number] NS Inj 1,000 ML @ 125 mls/hr IV 1000 / 1000 .CONT .Q8H [facility] Rx#:[id number] Zosyn 2.25 GM Premix 50 ML @ 50 / 50 50 / 50 100 mls/hr IV.SIG Q12H [facility] Rx#: [id number] Oral 0 / 0 Output: Hemodialysis Amount 1999 Other: Date of Last Bowel Movement 09/14/17 09/14/17 - Constitutional no acute distress - Routine HEENT Exam Head: Present: normocephalic, atraumatic - Routine Neck Exam Present: supple - Routine Respiratory Exam Present: CTA bilaterally - Routine Cardiovascular Exam Present: RRR - Routine Abdominal Exam Present: normoactive bowel sounds, tenderness, distended, firm - Routine Extremities Exam Comments: contracted - Routine Skin Exam Present: intact, dry - Routine Neurological Exam Present: alert, oriented X3 <[email or web address] - Last Filed: 09/25/17 07:11> Results - Labs CBC & Chem 7: 09/16/17 14:40 09/16/17 14:40 Labs: Laboratory Results - last 24 hr 09/16/17 09/17/17 09/17/17 21:20 03:48 08:15 POC Glucose 178 H 155 H 162 H - Imaging Impressions Abdomen Ultrasound 09/17/17 00:00 CONCLUSION: 1. Cholelithiasis. No wall thickening or pericholecystic fluid. 2. Echogenic liver most characteristic of hepatic steatosis. Cholangiopancreatography MRI 09/17/17 00:00 CONCLUSION: 1. No dilation or filling defects seen in the biliary ducts or pancreatic duct. 2. No filling defects in the gallbladder. 3. Left adrenal adenoma. 4. Bilateral pleural effusions, right greater than left. <Sarwat Rain - Last Filed: 09/17/17 19:27> - Labs CBC & Chem 7: 09/22/17 08:24 09/22/17 08:24 Labs: Laboratory Results - last 24 hr 09/16/17 09/16/17 09/16/17 14:40 14:40 14:40 Sodium 139 Potassium 4.0 Chloride 100 Carbon Dioxide 29.6 Anion Gap 9 BUN 32 H Creatinine 6.20 H Estimated GFR 11 L POC Glucose Random Glucose 210 H Calcium 8.6 Total Bilirubin 0.4 AST 8 L ALT 13 Alkaline Phosphatase 105 Lactate Dehydrogenase C-Reactive Protein 11.00 H Total Protein 8.4 H D Albumin 2.9 L Triglycerides 210 H Cholesterol 145 LDL Cholesterol, Calc 60 HDL Cholesterol 43.2 Cholesterol/HDL Ratio 3.35 Lipase 993 H 09/16/17 09/16/17 09/16/17 14:40 16:29 21:20 Sodium Potassium Chloride Carbon Dioxide Anion Gap BUN Creatinine Estimated GFR POC Glucose 204 H 178 H Random Glucose Calcium Total Bilirubin AST ALT Alkaline Phosphatase Lactate Dehydrogenase 147 C-Reactive Protein Total Protein Albumin Triglycerides Cholesterol LDL Cholesterol, Calc HDL Cholesterol Cholesterol/HDL Ratio Lipase 09/17/17 09/17/17 03:48 08:15 Sodium Potassium Chloride Carbon Dioxide Anion Gap BUN Creatinine Estimated GFR POC Glucose 155 H 162 H Random Glucose Calcium Total Bilirubin AST ALT Alkaline Phosphatase Lactate Dehydrogenase C-Reactive Protein Total Protein Albumin Triglycerides Cholesterol LDL Cholesterol, Calc HDL Cholesterol Cholesterol/HDL Ratio Lipase - Imaging Impressions Abdomen Ultrasound 09/17/17 00:00 CONCLUSION: 1. Cholelithiasis. No wall thickening or pericholecystic fluid. 2. Echogenic liver most characteristic of hepatic steatosis. <Rosetta Ho - Last Filed: 09/25/17 07:11> Assessment and Plan - Attending Attestation Patient seen and examined Agree with above Continue with current supportive care Monitor labs EGD Tuesday Agree with MRCP <Sarwat Rain - Last Filed: 09/17/17 19:27> - Plan - Elevated lipase 993- No known etiology. Possibly related to ESRD. CT of the abdomen on 09/14 showed stool throughout the colon without obstruction or ileus. Lower lungs significant for bibasilar infiltrates. US on 09/17 showed gallstones, and hepatic steatosis. LFT wnl. Pt endorses diffused abd pain. Denies nausea, vomiting, change in bowels, or fever. Admits to hx of pancreatitis 5-10 yrs ago, used to be heavy alcohol drinker but quit a yr ago. - Chronic anemia- likely anemia of chronic dz, no bleeding reported - ESRD on dialysis - Pneumonia. on abx - ? aspiration- S/P MBS recommendation for pureed solids, nectar thick liquids Plan: - NPO - MRCP if pt is able - consider EGD on Tuesday - Monitor lipase - Supportive care - Pt seen and examined by Dr. Rain and myself and this note is written on his behalf. <Rosetta Ho - Last Filed: 09/25/17 07:11>
--- NOTE | 2017-09-17 17:49 | P.PNIM ---
Subjective Interval history: Mr. Sharpe was seen after dialysis today. VS unremarkable on 2L O2 via NC. Patient reports continued abdominal pain. Patient reports hunger but understands desire for NPO diet due to pancreatitis. Patient reports continued itching which he says is worse with dialysis. Patient also reports discomfort on his left leg. No shortness of breath reported. Physical Exam Vital signs: Vital Signs 09/16/17 20:00 09/16/17 21:40 09/16/17 23:45 Temperature 98.3 F Pulse Rate 83 80 77 Respiratory Rate 18 Blood Pressure 115/56 L Pulse Oximetry 97 09/17/17 00:00 09/17/17 04:00 09/17/17 08:00 Temperature 98 F 97.8 F Pulse Rate 80 76 75 Respiratory Rate 18 18 Blood Pressure 110/56 L 124/60 163/69 H Pulse Oximetry 96 97 97 09/17/17 14:00 09/17/17 16:00 09/17/17 17:32 Temperature 98.3 F 98.6 F Pulse Rate 86 79 Respiratory Rate 17 17 Blood Pressure 140/77 115/62 Pulse Oximetry 97 100 99 Intake & Output 09/16/17 09/17/17 09/17/17 18:59 06:59 18:59 Intake Total 1050 / 1050 50 / 50 1000 / 1000 Output Total 1999 Balance 1050 / 1050 50 / 50 -1000 / -1000 Intake: IV 1050 / 1050 50 / 50 1000 / 1000 D5W/1/2 NS Inj 1,000 ML @ 84 1000 / 1000 mls/hr IV.CONT .[id number] [facility] Rx# :[id number] NS Inj 1,000 ML @ 125 mls/hr IV 1000 / 1000 .CONT .Q8H [facility] Rx#:[id number] Zosyn 2.25 GM Premix 50 ML @ 50 / 50 50 / 50 100 mls/hr IV.SIG Q12H [facility] Rx#: [id number] Oral 0 / 0 Output: Hemodialysis Amount 1999 Other: Date of Last Bowel Movement 09/14/17 09/14/17 Narrative: Gen: No acute distress Skin: Left distal lower extremity wrapped HEENT: Eyes: EOM grossly I. Nose without drainage. Cardiovascular: Regular rate and rhythm; normal peripheral perfusion grossly Respiratory: Lungs clear to auscultation bilaterally; normal rate Abdomen: Soft, nondistended. Mild tenderness reported Musculoskeletal: Patient with some generalized extremity atrophy and left upper extremity contracture. Neuro/Psych: Awake/alert; answers questions briefly but more vocal than at last exam. Results - Labs CBC & Chem 7: 09/16/17 14:40 09/16/17 14:40 Laboratory Results - last 24 hr 09/16/17 09/16/17 09/16/17 14:40 14:40 14:40 POC Glucose Lactate Dehydrogenase 147 C-Reactive Protein 11.00 H Triglycerides 210 H Cholesterol 145 LDL Cholesterol, Calc 60 HDL Cholesterol 43.2 Cholesterol/HDL Ratio 3.35 09/16/17 09/17/17 09/17/17 21:20 03:48 08:15 POC Glucose 178 H 155 H 162 H Lactate Dehydrogenase C-Reactive Protein Triglycerides Cholesterol LDL Cholesterol, Calc HDL Cholesterol Cholesterol/HDL Ratio - Imaging Impressions Abdomen Ultrasound 09/17/17 00:00 CONCLUSION: 1. Cholelithiasis. No wall thickening or pericholecystic fluid. 2. Echogenic liver most characteristic of hepatic steatosis. Assessment and Plan - Assessment (1) Aspiration pneumonia of both lungs Code(s): J69.0 - Pneumonitis due to inhalation of food and vomit Status: Acute (2) End stage renal disease on dialysis Code(s): N18.6 - End stage renal disease; Z99.2 - Dependence on renal dialysis Status: Acute (3) Diabetes Code(s): E11.9 - Type 2 diabetes mellitus without complications Status: Acute - Plan Mr. Sharpe is a 62 yo M w/ PMH ESRD and CVA who presented via assisted with: Pneumonia Impression: Suspect aspiration. CXR on admission with bibasilar infiltrates suggestive of bibasilar pneumonia. Reported dry cough at prior facility. No leukocytosis. Stable saturations on 2 L O2 via NC. On dialysis; lives in health care setting -Continue to monitor VS, respiratory function and provide NC O2 as needed -Will cover for aspiration pneumonia -Initially treated with Cefepime/Azithromycin (09/14-09/15); transitioned to Zosyn for aspiration coverage -Sputum cultures pending -Speech therapy evaluation; barium swallow-> Pureed foods with nectar thickened liquids Abdominal pain Impression: Abdominal pain reported today. Reported complaint for constipation requiring enemas and concern for obstruction at his prior assisted CT abdomen/pelvis- diffuse fatty infiltration. Stable 2cm L adrenal mass. Bilateral kidney atrophy w/o hydronephrosis. Diverticulosis scattered in sigmoid colon w/o inflammatory changes. Stable moderate hiatal hernia at GE junction Lipase 993 09/16 (increased from 631 on admission) US with cholelithiasis Triglycerides unremarkable -GI consulted -Will make NPO -MRCP -Consider EGD -monitor lipase -supportive care -Continue PRN bowel regimen -Continue Miralax daily -Will check abdominal US for gallstone assessment -Will start IV Morphine 2mg PRN (PA 6-10) due to pain ESRD Impression: Chronic ESRD requiring dialysis -Nephrology consulted -Continue dialysis as needed T2DM Impression: On home Levemir 30 U daily, sliding scale -Will give SS insulin while inpatient and hold Levemir while NPO LLE wound Impression: Seen by wound care -Dressing changes q3 days per wound care Other chronic medical conditions -Home Tramadol, psychiatric medications, vitamins restarted DVT PPX -Continue Heparin 5 K U BID Discharge Planning: Will continue pneumonia treatment and determine ability for oral intake prior to discharge back to prior facility (1) Aspiration pneumonia of both lungs Qualifiers: Aspiration pneumonia type: unspecified Lung location: lower lobe of lung Qualified Code(s): J69.0 - Pneumonitis due to inhalation of food and vomit (3) Diabetes Qualifiers: Diabetes mellitus type: type 2 Chronic kidney disease stage: on chronic dialysis
--- NOTE | 2017-09-17 18:06 | MR ---
EXAM DATE: 09/17/2017 5:36 PM EDT AGE/SEX: 62 years / Male INDICATIONS: . Elevated lipase. CLINICAL DATA: This is the patient's initial encounter. Patient reports that signs and symptoms have been present for 2 days and indicates a pain score of 0/10. MEDICAL/SURGICAL HISTORY: Diabetes mellitus type II. Cerebrovascular disease. Gastroesophagea l reflux disease. None. [place] [facility] [place]/12/2017. [facility] [place], [place]/17/2017. [facility] [place] & PELVIS W/O CONTRAST, 09/14/2017. . TECHNIQUE: Multiplanar, multisequence images of the abdomen were obtained without contrast including dedicated cholangiographic images. FINDINGS: Moderate size right pleural effusion and small left pleural effusion. 1.8 cm lobular mass in the late ral crux of the left adrenal gland demonstrates homogeneous decreased signal on the opposed phase juan carlos mical shift imaging, characteristic of adrenal adenoma. No filling defects within the gallbladder. Bi lateral atrophic kidneys with tiny cortical cysts. The common bile, common hepatic, and pancreatic ducts are normal size. No filling defects seen. CONCLUSION: 1. No dilation or filling defects seen in the biliary ducts or pancreatic duct. 2. No filling defects in the gallbladder. 3. Left adrenal adenoma. 4. Bilateral pleural effusions, right greater than left. Electronically signed by: Lito Enamorado MD 09/17/2017 6:05 PM EDT
[2017-09-17 21:31] LABS: Baso # (Auto) 0.1 th/mm3 (0.0-0.2); Baso % (Auto) 1.2 % (0.0-2.0); Eos # (Auto) 0.1 th/mm3 (0.0-0.4); Eos % (Auto) 3.4 % (0.0-4.0); Hematocrit 38.7 % (39.0-51.0); Lymph # (Auto) 1.1 th/mm3 (1.0-4.8); Lymph % (Auto) 27.1 % (9.0-44.0); Mean Corpuscular Hemoglobin 28.2 pg (27.0-34.0); Mean Corpuscular Volume 90.8 fL (80.0-100.0); Mean Platelet Volume 8.7 fL (7.0-11.0); Mono # (Auto) 0.4 th/mm3 (0.0-0.9); Neut # (Auto) 2.5 th/mm3 (1.8-7.7); Neut % (Auto) 59.3 % (16.0-70.0); Platelet Count 224 th/mm3 (150-450); Red Blood Count 4.26 mil/mm3 (4.50-5.90); Red Cell Distribution Width 16.6 % (11.6-17.2); White Blood Count 4.2 th/mm3 (4.0-11.0)
[2017-09-17 21:46] LABS: Alanine Aminotransferase 15 U/L (12-78); Albumin 2.9 g/dL (3.4-5.0); Alkaline Phosphatase 107 U/L (45-117); Anion Gap 13 meq/L (5-15); Aspartate Aminotransferase 20 U/L (15-37); Blood Urea Nitrogen 16 mg/dL (7-18); Calcium 8.9 mg/dL (8.5-10.1); Carbon Dioxide 28.9 meq/L (21.0-32.0); Chloride 100 meq/L (98-107); Glomerular Filtration Rate 15 mL/min (>89); Glucose,Random 111 mg/dL (74-106); Lipase 285 U/L (73-393); Total Protein 8.6 g/dL (6.4-8.2)
[2017-09-17 21:52] LABS: Sodium 142 meq/L (136-145)
[2017-09-17] MEDS: lamoTRIgine 100 MG Tablet PO SCH (22:04)
[2017-09-17] MEDS: traZODone 100 MG Tablet PO SCH (22:05)
[2017-09-18] MEDS: Insulin NovoLIN Regular Correctional Sugar Inj SQ SCH ×5 (05:50→20:52)
[2017-09-18] MEDS: Sod Chloride 0.9% Inj 1,000 ML IV.CONT SCH ×4 (07:06→21:01)
[2017-09-18 08:40] LABS: Baso # (Auto) 0.1 th/mm3 (0.0-0.2); Baso % (Auto) 1.3 % (0.0-2.0); Eos # (Auto) 0.2 th/mm3 (0.0-0.4); Eos % (Auto) 3.5 % (0.0-4.0); Hematocrit 29.4 % (39.0-51.0); Hemoglobin 9.4 gm/dL (13.0-17.0); Lymph # (Auto) 1.3 th/mm3 (1.0-4.8); Lymph % (Auto) 26.4 % (9.0-44.0); Mean Corpuscular Volume 90.5 fL (80.0-100.0); Mean Platelet Volume 8.8 fL (7.0-11.0); Mono # (Auto) 0.7 th/mm3 (0.0-0.9); Mono % (Auto) 15.2 % (0.0-8.0); Neut # (Auto) 2.6 th/mm3 (1.8-7.7); Neut % (Auto) 53.6 % (16.0-70.0); Platelet Count 286 th/mm3 (150-450); Red Blood Count 3.24 mil/mm3 (4.50-5.90); Red Cell Distribution Width 16.2 % (11.6-17.2); White Blood Count 4.8 th/mm3 (4.0-11.0)
[2017-09-18 08:41] LABS: Calcium 8.1 mg/dL (8.5-10.1); Carbon Dioxide 26.9 meq/L (21.0-32.0); Potassium 4.2 meq/L (3.5-5.1)
[2017-09-18] MEDS: Piperacil/Tazo 2.25 GM Premix 50 ML IV.SIG SCH ×2 (10:00→21:00)
[2017-09-18] MEDS: Heparin - SQ 10,000 UNITS/ML Vial SQ SCH ×2 (10:00→20:51)
[2017-09-18] MEDS: Morphine Inj 4 MG/ML Vial IV.PUSH PRN ×2 (10:11→17:04)
[2017-09-18] MEDS: Escitalopram 10 MG Tablet PO SCH (10:19)
[2017-09-18] MEDS: Senna/Docusate Sodium 8.6/50 MG Tablet PO SCH ×2 (10:19→20:51)
[2017-09-18] MEDS: Pantoprazole Sodium 20 MG DR Tablet PO SCH (10:19)
[2017-09-18] MEDS: Polyethylene Glycol 3350 17 GM Packet PO SCH (10:20)
[2017-09-18] MEDS: risperiDONE 0.5 MG ODT PO SCH ×2 (10:20→20:51)
--- NOTE | 2017-09-18 13:06 | P.PNGI ---
Subjective Interval history: Pt resting in bed. No BM, currently drinking a laxative. Denies nausea, vomiting , abdominal pain. <Jazmín Mercado - Last Filed: 09/18/17 13:01> Physical Exam Vital signs: Vital Signs 09/17/17 14:00 09/17/17 16:00 09/17/17 17:32 Temperature 98.3 F 98.6 F Pulse Rate 86 79 Respiratory Rate 17 17 Blood Pressure 140/77 115/62 Pulse Oximetry 97 100 99 09/17/17 20:00 09/18/17 00:00 09/18/17 04:00 Temperature 97.7 F 97.3 F L 97.9 F Pulse Rate 77 78 74 Respiratory Rate 18 18 18 Blood Pressure 129/61 136/74 122/66 Pulse Oximetry 96 96 96 09/18/17 08:00 09/18/17 12:00 Temperature 97.4 F L 97.4 F L Pulse Rate 74 79 Respiratory Rate 20 19 Blood Pressure 132/65 103/52 L Pulse Oximetry 99 92 L Intake & Output 09/17/17 09/18/17 09/18/17 18:59 06:59 18:59 Intake Total 1999 100 / 100 2850 / 2850 Output Total 1999 Balance 0 / 0 100 / 100 2850 / 2850 Intake: IV 1999 100 / 100 2850 / 2850 NS Inj 1,000 ML @ 125 mls/hr IV 1999 1000 / 1000 .CONT .Q8H [facility] Rx#:[id number] Zosyn 2.25 GM Premix 50 ML @ 100 / 100 50 / 50 100 mls/hr IV.SIG Q12H [facility] Rx#: [id number] Oral 0 / 0 Output: Hemodialysis Amount 1999 Other: # Voids 0 Date of Last Bowel Movement 09/14/17 # Bowel Movements 0 - Constitutional no acute distress - Routine HEENT Exam Head: Present: normocephalic, atraumatic - Routine Abdominal Exam Present: normoactive bowel sounds, distended, firm. Absent: tenderness - Routine Skin Exam Present: dry, warm - Routine Neurological Exam Present: alert, oriented X3 <Jazmín Mercado - Last Filed: 09/18/17 13:01> Vital signs: Vital Signs 09/17/17 14:00 09/17/17 16:00 09/17/17 17:32 Temperature 98.3 F 98.6 F Pulse Rate 86 79 Respiratory Rate 17 17 Blood Pressure 140/77 115/62 Pulse Oximetry 97 100 99 09/17/17 20:00 09/18/17 00:00 09/18/17 04:00 Temperature 97.7 F 97.3 F L 97.9 F Pulse Rate 77 78 74 Respiratory Rate 18 18 18 Blood Pressure 129/61 136/74 122/66 Pulse Oximetry 96 96 96 09/18/17 08:00 09/18/17 12:00 Temperature 97.4 F L 97.4 F L Pulse Rate 74 79 Respiratory Rate 20 19 Blood Pressure 132/65 103/52 L Pulse Oximetry 99 92 L Intake & Output 09/17/17 09/18/17 09/18/17 18:59 06:59 18:59 Intake Total 1999 100 / 100 2850 / 2850 Output Total 1999 Balance 0 / 0 100 / 100 2850 / 2850 Intake: IV 1999 100 / 100 2850 / 2850 NS Inj 1,000 ML @ 125 mls/hr IV 1999 1000 / 1000 .CONT .Q8H [facility] Rx#:[id number] Zosyn 2.25 GM Premix 50 ML @ 100 / 100 50 / 50 100 mls/hr IV.SIG Q12H [facility] Rx#: [id number] Oral 0 / 0 Output: Hemodialysis Amount 1999 Other: # Voids 0 Date of Last Bowel Movement 09/14/17 # Bowel Movements 0 <Sarwat Rain E - Last Filed: 09/18/17 13:58> Results - Labs CBC & Chem 7: 09/18/17 07:13 09/18/17 07:43 Laboratory Results - last 24 hr 09/17/17 09/17/17 09/17/17 20:00 20:25 20:25 WBC 4.2 RBC 4.26 L Hgb 12.0 L D Hct 38.7 L MCV 90.8 MCH 28.2 MCHC 31.0 L RDW 16.6 Plt Count 224 MPV 8.7 Neut % (Auto) 59.3 Lymph % (Auto) 27.1 [place] % (Auto) 9.0 H Eos % (Auto) 3.4 Baso % (Auto) 1.2 Neut # (Auto) 2.5 Lymph # (Auto) 1.1 [place] # (Auto) 0.4 Eos # (Auto) 0.1 Baso # (Auto) 0.1 WBC Differential . Differential Comment Auto diff final Hematology Comments Sodium 142 Potassium 4.0 Chloride 100 Carbon Dioxide 28.9 Anion Gap 13 BUN 16 Creatinine 4.85 H Estimated GFR 15 L POC Glucose 129 H Random Glucose 111 H Calcium 8.9 Total Bilirubin 0.4 AST 20 ALT 15 Alkaline Phosphatase 107 Total Protein 8.6 H Albumin 2.9 L Lipase 285 09/18/17 09/18/17 09/18/17 05:49 07:13 07:34 WBC 4.8 RBC 3.24 L Hgb 9.4 L D Hct 29.4 L MCV 90.5 MCH 29.0 MCHC 32.0 RDW 16.2 Plt Count 286 MPV 8.8 Neut % (Auto) 53.6 Lymph % (Auto) 26.4 [place] % (Auto) 15.2 H Eos % (Auto) 3.5 Baso % (Auto) 1.3 Neut # (Auto) 2.6 Lymph # (Auto) 1.3 [place] # (Auto) 0.7 Eos # (Auto) 0.2 Baso # (Auto) 0.1 WBC Differential . Differential Comment Auto diff final Hematology Comments Sodium Potassium Chloride Carbon Dioxide Anion Gap BUN Creatinine Estimated GFR POC Glucose 107 112 H Random Glucose Calcium Total Bilirubin AST ALT Alkaline Phosphatase Total Protein Albumin Lipase 09/18/17 09/18/17 07:43 11:55 WBC RBC Hgb Hct MCV MCH MCHC RDW Plt Count MPV Neut % (Auto) Lymph % (Auto) [place] % (Auto) Eos % (Auto) Baso % (Auto) Neut # (Auto) Lymph # (Auto) [place] # (Auto) Eos # (Auto) Baso # (Auto) WBC Differential Differential Comment Hematology Comments Sodium 141 Potassium 4.2 Chloride 104 Carbon Dioxide 26.9 Anion Gap 10 BUN 18 Creatinine 5.59 H Estimated GFR 13 L POC Glucose 143 H Random Glucose 98 Calcium 8.1 L D Total Bilirubin AST ALT Alkaline Phosphatase Total Protein Albumin Lipase 159 - Imaging Impressions Cholangiopancreatography MRI 09/17/17 00:00 CONCLUSION: 1. No dilation or filling defects seen in the biliary ducts or pancreatic duct. 2. No filling defects in the gallbladder. 3. Left adrenal adenoma. 4. Bilateral pleural effusions, right greater than left. <Bonnette,Jazmín - Last Filed: 09/18/17 13:01> - Labs CBC & Chem 7: 09/18/17 07:13 09/18/17 07:43 Laboratory Results - last 24 hr 09/17/17 09/17/17 09/17/17 20:00 20:25 20:25 WBC 4.2 RBC 4.26 L Hgb 12.0 L D Hct 38.7 L MCV 90.8 MCH 28.2 MCHC 31.0 L RDW 16.6 Plt Count 224 MPV 8.7 Neut % (Auto) 59.3 Lymph % (Auto) 27.1 [place] % (Auto) 9.0 H Eos % (Auto) 3.4 Baso % (Auto) 1.2 Neut # (Auto) 2.5 Lymph # (Auto) 1.1 [place] # (Auto) 0.4 Eos # (Auto) 0.1 Baso # (Auto) 0.1 WBC Differential . Differential Comment Auto diff final Hematology Comments Sodium 142 Potassium 4.0 Chloride 100 Carbon Dioxide 28.9 Anion Gap 13 BUN 16 Creatinine 4.85 H Estimated GFR 15 L POC Glucose 129 H Random Glucose 111 H Calcium 8.9 Total Bilirubin 0.4 AST 20 ALT 15 Alkaline Phosphatase 107 Total Protein 8.6 H Albumin 2.9 L Lipase 285 09/18/17 09/18/17 09/18/17 05:49 07:13 07:34 WBC 4.8 RBC 3.24 L Hgb 9.4 L D Hct 29.4 L MCV 90.5 MCH 29.0 MCHC 32.0 RDW 16.2 Plt Count 286 MPV 8.8 Neut % (Auto) 53.6 Lymph % (Auto) 26.4 [place] % (Auto) 15.2 H Eos % (Auto) 3.5 Baso % (Auto) 1.3 Neut # (Auto) 2.6 Lymph # (Auto) 1.3 [place] # (Auto) 0.7 Eos # (Auto) 0.2 Baso # (Auto) 0.1 WBC Differential . Differential Comment Auto diff final Hematology Comments Sodium Potassium Chloride Carbon Dioxide Anion Gap BUN Creatinine Estimated GFR POC Glucose 107 112 H Random Glucose Calcium Total Bilirubin AST ALT Alkaline Phosphatase Total Protein Albumin Lipase 09/18/17 09/18/17 07:43 11:55 WBC RBC Hgb Hct MCV MCH MCHC RDW Plt Count MPV Neut % (Auto) Lymph % (Auto) [place] % (Auto) Eos % (Auto) Baso % (Auto) Neut # (Auto) Lymph # (Auto) [place] # (Auto) Eos # (Auto) Baso # (Auto) WBC Differential Differential Comment Hematology Comments Sodium 141 Potassium 4.2 Chloride 104 Carbon Dioxide 26.9 Anion Gap 10 BUN 18 Creatinine 5.59 H Estimated GFR 13 L POC Glucose 143 H Random Glucose 98 Calcium 8.1 L D Total Bilirubin AST ALT Alkaline Phosphatase Total Protein Albumin Lipase 159 - Imaging Impressions Cholangiopancreatography MRI 09/17/17 00:00 CONCLUSION: 1. No dilation or filling defects seen in the biliary ducts or pancreatic duct. 2. No filling defects in the gallbladder. 3. Left adrenal adenoma. 4. Bilateral pleural effusions, right greater than left. <Sarwat Rain E - Last Filed: 09/18/17 13:58> Assessment and Plan - Plan - Elevated lipase 993- No known etiology. Possibly related to ESRD. CT of the abdomen on 09/14 showed stool throughout the colon without obstruction or ileus. Lower lungs significant for bibasilar infiltrates. US on 09/17 showed gallstones, and hepatic steatosis. LFT wnl. Pt endorses diffused abd pain. Denies nausea, vomiting, change in bowels, or fever. Admits to hx of pancreatitis 5-10 yrs ago, used to be heavy alcohol drinker but quit a yr ago. - Chronic anemia- likely anemia of chronic dz, no bleeding reported - ESRD on dialysis - Pneumonia. on abx - ? aspiration- S/P MBS recommendation for pureed sathish;ids, nectar thick liquids (09/18) Pt denies nausea, vomiting, abdominal pain. No BM, currently drinking a laxative. Made aware of plans for EGD tomorrow. Drop in H/H overnight, no obvious GIB. Likely multifactorial given ESRD. Lipase now WNL MRCP noted --> No dilation or filling defects seen in the biliary ducts or pancreatic duct. No filling defects in the gallbladder. Left adrenal adenoma. Bilateral pleural effusions , right > left. Plan: - Full liquid diet doay - EGD tomorrow - Obtain consent - NPO after MN - Monitor labs - Further recommendations based on EGD findings Pt has been seen and examined by myself and Dr. Rain and this note is written on his behalf <Jazmín Mercado - Last Filed: 09/18/17 13:01> - Attending Attestation Patient seen and examined Agree with above Continue with current supportive care Monitor labs EGD tomorrow <Sarwat Rain - Last Filed: 09/18/17 13:58>
--- NOTE | 2017-09-18 15:21 | P.PNNP ---
Subjective Interval history: Complains of itching Physical Exam Vital signs: Vital Signs 09/17/17 16:00 09/17/17 17:32 09/17/17 20:00 Temperature 98.6 F 97.7 F Pulse Rate 79 77 Respiratory Rate 17 18 Blood Pressure 115/62 129/61 Pulse Oximetry 100 99 96 09/18/17 00:00 09/18/17 04:00 09/18/17 08:00 Temperature 97.3 F L 97.9 F 97.4 F L Pulse Rate 78 74 74 Respiratory Rate 18 18 20 Blood Pressure 136/74 122/66 132/65 Pulse Oximetry 96 96 99 09/18/17 12:00 Temperature 97.4 F L Pulse Rate 79 Respiratory Rate 19 Blood Pressure 103/52 L Pulse Oximetry 92 L Intake & Output 09/17/17 09/18/17 09/18/17 18:59 06:59 18:59 Intake Total 1999 100 / 100 2850 / 2850 Output Total 1999 Balance 0 / 0 100 / 100 2850 / 2850 Intake: IV 1999 100 / 100 2850 / 2850 NS Inj 1,000 ML @ 125 mls/hr IV 1999 1000 / 1000 .CONT .Q8H [facility] Rx#:[id number] Zosyn 2.25 GM Premix 50 ML @ 100 / 100 50 / 50 100 mls/hr IV.SIG Q12H [facility] Rx#: [id number] Oral 0 / 0 Output: Hemodialysis Amount 1999 Other: # Voids 0 Date of Last Bowel Movement 09/14/17 # Bowel Movements 0 - Constitutional no acute distress - Routine HEENT Exam Head: Present: normocephalic Eye: Present: EOMI - Routine Neck Exam Present: supple - Routine Respiratory Exam Present: CTA bilaterally - Routine Cardiovascular Exam Present: RRR - Routine Abdominal Exam Present: soft, distended - Routine Extremities Exam Present: pulses intact - Routine Neurological Exam Present: alert Assessment and Plan - Assessment (1) End stage renal disease on dialysis Code(s): N18.6 - End stage renal disease; Z99.2 - Dependence on renal dialysis Status: Acute (2) Aspiration pneumonia of both lungs Code(s): J69.0 - Pneumonitis due to inhalation of food and vomit Status: Acute Qualifiers: Aspiration pneumonia type: unspecified Lung location: lower lobe of lung Qualified Code(s): J69.0 - Pneumonitis due to inhalation of food and vomit (3) Diabetes Code(s): E11.9 - Type 2 diabetes mellitus without complications Status: Acute Qualifiers: Diabetes mellitus type: type 2 Chronic kidney disease stage: on chronic dialysis - Plan Patient will be kept n.p.o. and endoscopy will be performed by GI patient has no filling defect in gallbladder and incidental adrenal adenoma Hemodialysis was done yesterday Dr. Bell to follow.
--- NOTE | 2017-09-18 16:31 | P.PNIM ---
Subjective Interval history: Mr. Sharpe was afebrile with stable VS overnight; O2 saturations 92-99% on 2L O2 via NC. Patient states that he no longer has abdominal pain at this time. He reports that he is thirsty. Patient does not report shortness of breath. Physical Exam Vital signs: Vital Signs 09/17/17 17:32 09/17/17 20:00 09/18/17 00:00 Temperature 97.7 F 97.3 F L Pulse Rate 77 78 Respiratory Rate 18 18 Blood Pressure 129/61 136/74 Pulse Oximetry 99 96 96 09/18/17 04:00 09/18/17 08:00 09/18/17 12:00 Temperature 97.9 F 97.4 F L 97.4 F L Pulse Rate 74 74 79 Respiratory Rate 18 20 19 Blood Pressure 122/66 132/65 103/52 L Pulse Oximetry 96 99 92 L Intake & Output 09/17/17 09/18/17 09/18/17 18:59 06:59 18:59 Intake Total 1999 100 / 100 2850 / 2850 Output Total 1999 Balance 0 / 0 100 / 100 2850 / 2850 Intake: IV 1999 100 / 100 2850 / 2850 NS Inj 1,000 ML @ 125 mls/hr IV 1999 1000 / 1000 .CONT .Q8H [facility] Rx#:[id number] Zosyn 2.25 GM Premix 50 ML @ 100 / 100 50 / 50 100 mls/hr IV.SIG Q12H [facility] Rx#: [id number] Oral 0 / 0 Output: Hemodialysis Amount 1999 Other: # Voids 0 Date of Last Bowel Movement 09/14/17 # Bowel Movements 0 Narrative: Gen: No acute distress Skin: Left distal lower extremity wrapped HEENT: Eyes: EOM grossly I. Cardiovascular: Regular rate and rhythm; normal peripheral perfusion grossly Respiratory: Lungs clear to auscultation bilaterally; normal rate Abdomen: Soft, nondistended, nontender Musculoskeletal: Patient with some generalized extremity atrophy and left upper extremity contracture. Neuro/Psych: Awake/alert; more interactive than on prior exam Results - Labs CBC & Chem 7: 09/18/17 07:13 09/18/17 07:43 Laboratory Results - last 24 hr 09/17/17 09/17/17 09/17/17 20:00 20:25 20:25 WBC 4.2 RBC 4.26 L Hgb 12.0 L D Hct 38.7 L MCV 90.8 MCH 28.2 MCHC 31.0 L RDW 16.6 Plt Count 224 MPV 8.7 Neut % (Auto) 59.3 Lymph % (Auto) 27.1 [place] % (Auto) 9.0 H Eos % (Auto) 3.4 Baso % (Auto) 1.2 Neut # (Auto) 2.5 Lymph # (Auto) 1.1 [place] # (Auto) 0.4 Eos # (Auto) 0.1 Baso # (Auto) 0.1 WBC Differential . Differential Comment Auto diff final Hematology Comments Sodium 142 Potassium 4.0 Chloride 100 Carbon Dioxide 28.9 Anion Gap 13 BUN 16 Creatinine 4.85 H Estimated GFR 15 L POC Glucose 129 H Random Glucose 111 H Calcium 8.9 Total Bilirubin 0.4 AST 20 ALT 15 Alkaline Phosphatase 107 Total Protein 8.6 H Albumin 2.9 L Lipase 285 09/18/17 09/18/17 09/18/17 05:49 07:13 07:34 WBC 4.8 RBC 3.24 L Hgb 9.4 L D Hct 29.4 L MCV 90.5 MCH 29.0 MCHC 32.0 RDW 16.2 Plt Count 286 MPV 8.8 Neut % (Auto) 53.6 Lymph % (Auto) 26.4 [place] % (Auto) 15.2 H Eos % (Auto) 3.5 Baso % (Auto) 1.3 Neut # (Auto) 2.6 Lymph # (Auto) 1.3 [place] # (Auto) 0.7 Eos # (Auto) 0.2 Baso # (Auto) 0.1 WBC Differential . Differential Comment Auto diff final Hematology Comments Sodium Potassium Chloride Carbon Dioxide Anion Gap BUN Creatinine Estimated GFR POC Glucose 107 112 H Random Glucose Calcium Total Bilirubin AST ALT Alkaline Phosphatase Total Protein Albumin Lipase 09/18/17 09/18/17 09/18/17 07:43 11:55 16:21 WBC RBC Hgb Hct MCV MCH MCHC RDW Plt Count MPV Neut % (Auto) Lymph % (Auto) [place] % (Auto) Eos % (Auto) Baso % (Auto) Neut # (Auto) Lymph # (Auto) [place] # (Auto) Eos # (Auto) Baso # (Auto) WBC Differential Differential Comment Hematology Comments Sodium 141 Potassium 4.2 Chloride 104 Carbon Dioxide 26.9 Anion Gap 10 BUN 18 Creatinine 5.59 H Estimated GFR 13 L POC Glucose 143 H 121 H Random Glucose 98 Calcium 8.1 L D Total Bilirubin AST ALT Alkaline Phosphatase Total Protein Albumin Lipase 159 - Imaging Impressions Cholangiopancreatography MRI 09/17/17 00:00 CONCLUSION: 1. No dilation or filling defects seen in the biliary ducts or pancreatic duct. 2. No filling defects in the gallbladder. 3. Left adrenal adenoma. 4. Bilateral pleural effusions, right greater than left. Assessment and Plan - Assessment (1) Aspiration pneumonia of both lungs Code(s): J69.0 - Pneumonitis due to inhalation of food and vomit Status: Acute (2) End stage renal disease on dialysis Code(s): N18.6 - End stage renal disease; Z99.2 - Dependence on renal dialysis Status: Acute (3) Diabetes Code(s): E11.9 - Type 2 diabetes mellitus without complications Status: Acute - Plan Mr. Sharpe is a 62 yo M w/ PMH ESRD and CVA who [facility] with: Pneumonia Impression: Suspect aspiration. CXR on admission with bibasilar infiltrates suggestive of bibasilar pneumonia. Reported dry cough at prior facility. No leukocytosis. Stable saturations on 2 L O2 via NC. On dialysis; lives in health care setting -Continue to monitor VS, respiratory function and provide NC O2 as needed -Will cover for aspiration pneumonia -Initially treated with Cefepime/Azithromycin (09/14-09/15); transitioned to Zosyn for aspiration coverage -Sputum cultures pending -Speech therapy evaluation; barium swallow-> Pureed foods with nectar thickened liquids Abdominal pain Impression: Abdominal pain reported today. Reported complaint for constipation requiring enemas and concern for obstruction at his [facility] CT abdomen/pelvis- diffuse fatty infiltration. Stable 2cm L adrenal mass. Bilateral kidney atrophy w/o hydronephrosis. Diverticulosis scattered in sigmoid colon w/o inflammatory changes. Stable moderate hiatal hernia at GE junction Lipase 993 09/16 (increased from 631 on admission)-> 159 today US with cholelithiasis Triglycerides unremarkable MRCP- no dilatation or filling defects in biliary tree/pancreatic ducts -Continue PRN bowel regimen -Continue Miralax daily - IV Morphine 2mg PRN (PA 6-10) due to pain -GI consulted -Full liquid diet -EGD tomorrow, NPO after midnight ESRD Impression: Chronic ESRD requiring dialysis -Nephrology consulted -Continue dialysis as needed T2DM Impression: On home Levemir 30 U daily, sliding scale -Will give SS insulin while inpatient and hold Levemir while NPO LLE wound Impression: Seen by wound care -Dressing changes q3 days per wound care Other chronic medical conditions -Home Tramadol, psychiatric medications, vitamins restarted DVT PPX -Continue Heparin 5 K U BID Discharge Planning: Will continue pneumonia treatment and determine ability for oral intake prior to discharge back to prior facility (1) Aspiration pneumonia of both lungs Qualifiers: Aspiration pneumonia type: unspecified Lung location: lower lobe of lung Qualified Code(s): J69.0 - Pneumonitis due to inhalation of food and vomit (3) Diabetes Qualifiers: Diabetes mellitus type: type 2 Chronic kidney disease stage: on chronic dialysis
[2017-09-18] MEDS: traZODone 100 MG Tablet PO SCH (20:51)
[2017-09-18] MEDS: lamoTRIgine 100 MG Tablet PO SCH (20:52)
[2017-09-18] MEDS ORDERED: Chlorhexidine Gluconate 2% 1 Pack (2 Cloths) TOPICAL SCH (23:30)
[2017-09-18] MEDS ORDERED: Sodium Chlor 0.9% Inj 500 ML IV.SIG SCH (23:45)
[2017-09-19] MEDS: Morphine Inj 4 MG/ML Vial IV.PUSH PRN ×2 (02:46→10:46)
[2017-09-19] MEDS: Sod Chloride 0.9% Inj 1,000 ML IV.CONT SCH ×3 (02:47→22:07)
[2017-09-19] MEDS: Insulin NovoLIN Regular Correctional Sugar Inj SQ SCH ×5 (02:50→22:03)
[2017-09-19 07:20] LABS: Baso % (Auto) 0.8 % (0.0-2.0); Eos # (Auto) 0.2 th/mm3 (0.0-0.4); Eos % (Auto) 3.9 % (0.0-4.0); Hematocrit 29.4 % (39.0-51.0); Hemoglobin 9.3 gm/dL (13.0-17.0); Lymph # (Auto) 1.2 th/mm3 (1.0-4.8); Lymph % (Auto) 27.6 % (9.0-44.0); Mean Corpuscular HGB Conc 31.7 % (32.0-36.0); Mean Corpuscular Hemoglobin 29.3 pg (27.0-34.0); Mean Corpuscular Volume 92.5 fL (80.0-100.0); Mean Platelet Volume 8.3 fL (7.0-11.0); Mono # (Auto) 0.5 th/mm3 (0.0-0.9); Mono % (Auto) 10.6 % (0.0-8.0); Neut # (Auto) 2.5 th/mm3 (1.8-7.7); Neut % (Auto) 57.1 % (16.0-70.0); Platelet Count 300 th/mm3 (150-450); Red Blood Count 3.18 mil/mm3 (4.50-5.90); Red Cell Distribution Width 16.4 % (11.6-17.2); White Blood Count 4.4 th/mm3 (4.0-11.0)
[2017-09-19 07:35] LABS: Calcium 8.1 mg/dL (8.5-10.1); Potassium 3.8 meq/L (3.5-5.1)
[2017-09-19] MEDS: risperiDONE 0.5 MG ODT PO SCH ×3 (10:27→22:00)
[2017-09-19] MEDS: Senna/Docusate Sodium 8.6/50 MG Tablet PO SCH ×3 (10:27→22:03)
[2017-09-19] MEDS: Escitalopram 10 MG Tablet PO SCH ×2 (10:27→20:04)
[2017-09-19] MEDS: Heparin - SQ 10,000 UNITS/ML Vial SQ SCH ×2 (10:27→22:06)
[2017-09-19] MEDS: Polyethylene Glycol 3350 17 GM Packet PO SCH (10:28)
[2017-09-19] MEDS: Pantoprazole Sodium 20 MG DR Tablet PO SCH ×2 (10:28→20:04)
[2017-09-19] MEDS: Piperacil/Tazo 2.25 GM Premix 50 ML IV.SIG SCH ×2 (10:40→21:55)
--- NOTE | 2017-09-19 11:21 | P.PNIM ---
Subjective Interval history: Mr. Sharpe was afebrile with stable VS overnight on 2L O2 via NC. Patient was sleeping at exam today; on awakening he reports that he has pain "all over" and requests pain medication. No other complaints reported Physical Exam Vital signs: Vital Signs 09/18/17 12:00 09/18/17 16:00 09/18/17 18:32 Temperature 97.4 F L 97.4 F L Pulse Rate 79 84 Respiratory Rate 19 19 Blood Pressure 103/52 L 131/69 Pulse Oximetry 92 L 93 L 93 L 09/18/17 20:00 09/19/17 00:00 09/19/17 04:00 Temperature 97.5 F L 98.2 F 97.5 F L Pulse Rate 74 83 80 Respiratory Rate 18 18 16 Blood Pressure 140/67 127/73 122/72 Pulse Oximetry 100 97 95 09/19/17 08:00 09/19/17 09:31 Temperature 98.1 F Pulse Rate 81 Respiratory Rate 18 Blood Pressure 146/76 H Pulse Oximetry 98 98 Intake & Output 09/18/17 09/19/17 09/19/17 18:59 06:59 18:59 Intake Total 2850 / 2850 2050 / 2050 1000 / 1000 Balance 2850 / 2850 2050 / 2050 1000 / 1000 Weight 85.8 kg Intake: IV 2850 / 2850 2049 / 0 1000 / 1000 NS Inj 1,000 ML @ 125 mls/hr IV 1000 / 1000 2000 / 2000 1000 / 1000 .CONT .Q8H [facility] Rx#:[id number] Zosyn 2.25 GM Premix 50 ML @ 50 / 50 50 / 50 100 mls/hr IV.SIG Q12H [facility] Rx#: [id number] Oral 0 / 0 Other: # Voids 0 0 Date of Last Bowel Movement 09/19/17 # Bowel Movements 0 1 Narrative: Gen: No acute distress Skin: Left distal lower extremity wrapped HEENT: Eyes: EOM grossly I. Cardiovascular: Regular rate and rhythm; normal peripheral perfusion grossly Respiratory: Lungs clear to auscultation bilaterally, decreased breath sounds; normal rate Abdomen: Soft, nondistended, nontender Musculoskeletal: Patient with some generalized extremity atrophy and left upper extremity contracture. Neuro/Psych: Awake/alert; more interactive than on prior exam Results - Labs CBC & Chem 7: 09/19/17 06:33 09/19/17 06:33 Laboratory Results - last 24 hr 09/18/17 09/18/17 09/18/17 11:55 16:21 19:20 WBC RBC Hgb Hct MCV MCH MCHC RDW Plt Count MPV Neut % (Auto) Lymph % (Auto) [place] % (Auto) Eos % (Auto) Baso % (Auto) Neut # (Auto) Lymph # (Auto) [place] # (Auto) Eos # (Auto) Baso # (Auto) WBC Differential Differential Comment Sodium Potassium Chloride Carbon Dioxide Anion Gap BUN Creatinine Estimated GFR POC Glucose 143 H 121 H 114 H Random Glucose Calcium 09/19/17 09/19/17 09/19/17 02:45 06:33 06:33 WBC 4.4 RBC 3.18 L Hgb 9.3 L Hct 29.4 L MCV 92.5 MCH 29.3 MCHC 31.7 L RDW 16.4 Plt Count 300 MPV 8.3 Neut % (Auto) 57.1 Lymph % (Auto) 27.6 [place] % (Auto) 10.6 H Eos % (Auto) 3.9 Baso % (Auto) 0.8 Neut # (Auto) 2.5 Lymph # (Auto) 1.2 [place] # (Auto) 0.5 Eos # (Auto) 0.2 Baso # (Auto) 0.0 WBC Differential . Differential Comment Auto diff final Sodium 142 Potassium 3.8 Chloride 107 Carbon Dioxide 26.0 Anion Gap 9 BUN 23 H Creatinine 6.86 H Estimated GFR 10 L POC Glucose 190 H Random Glucose 140 H Calcium 8.1 L 09/19/17 10:23 WBC RBC Hgb Hct MCV MCH MCHC RDW Plt Count MPV Neut % (Auto) Lymph % (Auto) [place] % (Auto) Eos % (Auto) Baso % (Auto) Neut # (Auto) Lymph # (Auto) [place] # (Auto) Eos # (Auto) Baso # (Auto) WBC Differential Differential Comment Sodium Potassium Chloride Carbon Dioxide Anion Gap BUN Creatinine Estimated GFR POC Glucose 151 H Random Glucose Calcium Assessment and Plan - Assessment (1) Aspiration pneumonia of both lungs Code(s): J69.0 - Pneumonitis due to inhalation of food and vomit Status: Acute (2) End stage renal disease on dialysis Code(s): N18.6 - End stage renal disease; Z99.2 - Dependence on renal dialysis Status: Acute (3) Diabetes Code(s): E11.9 - Type 2 diabetes mellitus without complications Status: Acute - Plan Mr. Sharpe is a 62 yo M w/ PMH ESRD and CVA who presented via longterm with: Pneumonia Impression: Suspect aspiration. CXR on admission with bibasilar infiltrates suggestive of bibasilar pneumonia. Reported dry cough at prior facility. No leukocytosis. Stable saturations on 2 L O2 via NC. On dialysis; lives in health care setting -Continue to monitor VS, respiratory function and provide NC O2 as needed -Will cover for aspiration pneumonia -Initially treated with Cefepime/Azithromycin (09/14-09/15); transitioned to Zosyn for aspiration coverage (09/15-) -Since stable and no sputum cultures, will plan to transition to oral antibiotics this evening after endoscopy -Sputum cultures ordered -Speech therapy evaluation; barium swallow-> Pureed foods with nectar thickened liquids Abdominal pain Impression: Abdominal pain reported today. Reported complaint for constipation requiring enemas and concern for obstruction at his prior longterm CT abdomen/pelvis- diffuse fatty infiltration. Stable 2cm L adrenal mass. Bilateral kidney atrophy w/o hydronephrosis. Diverticulosis scattered in sigmoid colon w/o inflammatory changes. Stable moderate hiatal hernia at GE junction Lipase 993 09/16 (increased from 631 on admission)-> 159 today US with cholelithiasis Triglycerides unremarkable MRCP- no dilatation or filling defects in biliary tree/pancreatic ducts -Continue PRN bowel regimen -Continue Miralax daily - IV Morphine 2mg PRN (PA 6-10) due to pain -GI consulted -Full liquid diet -EGD today ESRD Impression: Chronic ESRD requiring dialysis -Nephrology consulted -Continue dialysis as needed T2DM Impression: On home Levemir 30 U daily, sliding scale -Will give SS insulin while inpatient and hold Levemir while NPO LLE wound Impression: Seen by wound care -Dressing changes q3 days per wound care Other chronic medical conditions -Home Tramadol, psychiatric medications, vitamins restarted DVT PPX -Continue Heparin 5 K U BID Discharge Planning: Pending GI evaluation. Will plan to discharge on oral antibiotics for pneumonia once deemed ready for discharge (1) Aspiration pneumonia of both lungs Qualifiers: Aspiration pneumonia type: unspecified Lung location: lower lobe of lung Qualified Code(s): J69.0 - Pneumonitis due to inhalation of food and vomit (3) Diabetes Qualifiers: Diabetes mellitus type: type 2 Chronic kidney disease stage: on chronic dialysis
[2017-09-19] MEDS ORDERED: Lidocaine PF 1% Inj 5 ML Syringe INFILTRATN ONE (12:00)
--- NOTE | 2017-09-19 13:56 | GIPROC ---
[facility] [address] [facility]. [facility], [id number] EGD PROCEDURE REPORT EXAM DATE: 09/19/2017 PATIENT NAME: Mirza Sharpe MR #: [id number] BIRTHDATE: 1955 ATTENDING: John Paul Amezquita MD ORDER #: [id number] MASTER DATA ANALYST: Miranda Sharpe and Leonora Kimble STATUS: inpatient INDICATIONS: The patient is a 62 yr old male here for an EGD due to anemia, epigastric abdominal pain, nausea, and vomiting PROCEDURE PERFORMED: EGD w/ biopsy MEDICATIONS: None and Per Anesthesia. TOPICAL ANESTHETIC: none CONSENT: The patient understands the risks and benefits of the procedure and understands that these risks include, but are not limited to: sedation, allergic reaction, infection, perforation and/or bleeding. Alternative means of evaluation and treatment include, among others: physical exam, x-rays, and/or surgical intervention. The patient elects to proceed with this endoscopic procedure. medical equipment was checked for proper function. Hand hygiene and appropriate measures for infection prevention was taken. After the risks, benefits and alternatives of the procedure were thoroughly explained, Informed consent was verified, confirmed and timeout was successfully executed by the treatment team. The patient was anesthetized with topical anesthesia and the EC-[id number] (Pedi C) endoscope was introduced through the mouth and advanced to the second portion of the duodenum. Retroflexed views revealed no abnormalities The gastroscope was then slowly withdrawn and removed. Grade C esophagitis biopsy from the distal esophagus. Mild duodenitis biopsy from the antrum to rule out H. pylori Stomach normal. ADVERSE EVENTS: There were no complications. IMPRESSIONS: 1. Grade C esophagitis biopsy from the distal esophagus 2. Mild duodenitis biopsy from the antrum to rule out H. pylori Stomach normal 3. Retroflexed views revealed no abnormalities RECOMMENDATIONS: 1. Await biopsy results. Biopsy results will not be ready for 7-10 days. If you don't hear from us in two weeks, call our office for biopsy results. 2. Anti-reflux regimen 3. Avoid NSAIDS 4. Continue PPI PATIENT CONDITION: stable DISPOSITION: Inpatient REPEAT EXAM: NONE John Paul Amezquita MD eSigned: John Paul Amezquita MD 09/19/2017 1:56 PM cc: PATIENT NAME: Mirza Sharpe MR#: [id number]
--- NOTE | 2017-09-19 14:40 | P.PNGI ---
Subjective Interval history: Patient is laying in bed, poor historian, does not seem to be in any distress and no complaints, no sign of GI bleed Physical Exam Vital signs: Vital Signs 09/18/17 16:00 09/18/17 18:32 09/18/17 20:00 Temperature 97.4 F L 97.5 F L Pulse Rate 84 74 Respiratory Rate 19 18 Blood Pressure 131/69 140/67 Pulse Oximetry 93 L 93 L 100 09/19/17 00:00 09/19/17 04:00 09/19/17 08:00 Temperature 98.2 F 97.5 F L 98.1 F Pulse Rate 83 80 81 Respiratory Rate 18 16 18 Blood Pressure 127/73 122/72 146/76 H Pulse Oximetry 97 95 98 09/19/17 09:31 09/19/17 12:00 Temperature 98.6 F Pulse Rate 82 Respiratory Rate 18 Blood Pressure 113/56 L Pulse Oximetry 98 94 L Intake & Output 09/18/17 09/19/17 09/19/17 18:59 06:59 18:59 Intake Total 2850 / 2850 2049 / 0 1000 / 1000 Balance 2850 / 2850 205 / 2050 1000 / 1000 Weight 85.8 kg Intake: IV 2850 / 2850 2049 / 0 1000 / 1000 NS Inj 1,000 ML @ 125 mls/hr IV 1000 / 1000 2000 / 2000 1000 / 1000 .CONT .Q8H [facility] Rx#:[id number] Zosyn 2.25 GM Premix 50 ML @ 50 / 50 50 / 50 100 mls/hr IV.SIG Q12H [facility] Rx#: [id number] Oral 0 / 0 Other: # Voids 0 0 Date of Last Bowel Movement 09/19/17 # Bowel Movements 0 1 - Constitutional no acute distress - Routine HEENT Exam Head: Present: normocephalic, atraumatic Eye: Present: EOMI, PERRL - Routine Neck Exam Present: supple - Routine Respiratory Exam Comments: Normal - Routine Cardiovascular Exam Present: RRR, S1, S2 - Routine Abdominal Exam Present: soft, normoactive bowel sounds Results - Labs CBC & Chem 7: 09/19/17 06:33 09/19/17 06:33 Laboratory Results - last 24 hr 09/18/17 09/18/17 09/19/17 16:21 19:20 02:45 WBC RBC Hgb Hct MCV MCH MCHC RDW Plt Count MPV Neut % (Auto) Lymph % (Auto) [place] % (Auto) Eos % (Auto) Baso % (Auto) Neut # (Auto) Lymph # (Auto) [place] # (Auto) Eos # (Auto) Baso # (Auto) WBC Differential Differential Comment Sodium Potassium Chloride Carbon Dioxide Anion Gap BUN Creatinine Estimated GFR POC Glucose 121 H 114 H 190 H Random Glucose Calcium 09/19/17 09/19/17 09/19/17 06:33 06:33 10:23 WBC 4.4 RBC 3.18 L Hgb 9.3 L Hct 29.4 L MCV 92.5 MCH 29.3 MCHC 31.7 L RDW 16.4 Plt Count 300 MPV 8.3 Neut % (Auto) 57.1 Lymph % (Auto) 27.6 [place] % (Auto) 10.6 H Eos % (Auto) 3.9 Baso % (Auto) 0.8 Neut # (Auto) 2.5 Lymph # (Auto) 1.2 [place] # (Auto) 0.5 Eos # (Auto) 0.2 Baso # (Auto) 0.0 WBC Differential . Differential Comment Auto diff final Sodium 142 Potassium 3.8 Chloride 107 Carbon Dioxide 26.0 Anion Gap 9 BUN 23 H Creatinine 6.86 H Estimated GFR 10 L POC Glucose 151 H Random Glucose 140 H Calcium 8.1 L Assessment and Plan - Plan - Elevated lipase 993- No known etiology. Possibly related to ESRD. CT of the abdomen on 09/14 showed stool throughout the colon without obstruction or ileus. Lower lungs significant for bibasilar infiltrates. US on 09/17 showed gallstones, and hepatic steatosis. LFT wnl. Pt endorses diffused abd pain. Denies nausea, vomiting, change in bowels, or fever. Admits to hx of pancreatitis 5-10 yrs ago, used to be heavy alcohol drinker but quit a yr ago. - Chronic anemia- likely anemia of chronic dz, no bleeding reported - ESRD on dialysis - Pneumonia. on abx - ? aspiration- S/P MBS recommendation for pureed sathish;ids, nectar thick liquids (09/18) Pt denies nausea, vomiting, abdominal pain. No BM, currently drinking a laxative. Made aware of plans for EGD tomorrow. Drop in H/H overnight, no obvious GIB. Likely multifactorial given ESRD. Lipase now WNL MRCP noted --> No dilation or filling defects seen in the biliary ducts or pancreatic duct. No filling defects in the gallbladder. Left adrenal adenoma. Bilateral pleural effusions , right > left. 09/19/2017 patient is doing better, no significant complaints today, still mild anemia, had upper endoscopy which show significant esophagitis and duodenitis, lipase back to normal Plan: Diet as tolerated Continue PPI Colonoscopy can be done as an outpatient if anemia persists Okay to discharge home from GI perspective
--- NOTE | 2017-09-19 19:43 | P.PNNP ---
Subjective Interval history: Patient is alert, want to eat, no abd. pain, no SOB, with nasal cannula. Physical Exam Vital signs: Vital Signs 09/18/17 20:00 09/19/17 00:00 09/19/17 04:00 Temperature 97.5 F L 98.2 F 97.5 F L Pulse Rate 74 83 80 Respiratory Rate 18 18 16 Blood Pressure 140/67 127/73 122/72 Pulse Oximetry 100 97 95 09/19/17 08:00 09/19/17 09:31 09/19/17 12:00 Temperature 98.1 F 98.6 F Pulse Rate 81 82 Respiratory Rate 18 18 Blood Pressure 146/76 H 113/56 L Pulse Oximetry 98 98 94 L 09/19/17 14:16 09/19/17 16:00 Temperature 97.1 F L 98.4 F Pulse Rate 77 77 Respiratory Rate 16 18 Blood Pressure 135/70 127/65 Pulse Oximetry 100 98 Intake & Output 09/19/17 09/19/17 09/20/17 06:59 18:59 06:59 Intake Total 2049 1100 / 1100 Balance 2049 1100 / 1100 Weight 85.8 kg Intake: IV 2049 1100 / 1100 NS Inj 1,000 ML @ 125 mls/hr IV 1999 / 1999 1100 / 1100 .CONT .Q8H [facility] Rx#:[id number] Zosyn 2.25 GM Premix 50 ML @ 50 / 50 100 mls/hr IV.SIG Q12H [facility] Rx#: [id number] Oral 0 / 0 Other: # Voids 0 Date of Last Bowel Movement 09/19/17 # Bowel Movements 1 Narrative: Gen: No acute distress Skin: Left distal lower extremity wrapped HEENT: Eyes: EOM grossly I. Cardiovascular: Regular rate and rhythm; normal peripheral perfusion grossly Respiratory: Lungs clear to auscultation bilaterally, decreased breath sounds; normal rate Abdomen: Soft, nondistended, nontender Musculoskeletal: Patient with some generalized extremity atrophy and left upper extremity contracture. Neuro/Psych: Awake/alert; more interactive than on prior exam Assessment and Plan - Assessment (1) End stage renal disease on dialysis Code(s): N18.6 - End stage renal disease; Z99.2 - Dependence on renal dialysis Status: Acute Plan: Patient with Eend stage renal disease, on HD TTS. Last HD was on Sat. GI following and EGD done , results noted. Started on diet, tolerating well. HD will be in AM. (2) Aspiration pneumonia of both lungs Code(s): J69.0 - Pneumonitis due to inhalation of food and vomit Status: Acute Qualifiers: Aspiration pneumonia type: unspecified Lung location: lower lobe of lung Qualified Code(s): J69.0 - Pneumonitis due to inhalation of food and vomit (3) Diabetes Code(s): E11.9 - Type 2 diabetes mellitus without complications Status: Acute Qualifiers: Diabetes mellitus type: type 2 Chronic kidney disease stage: on chronic dialysis
[2017-09-19] MEDS: traZODone 100 MG Tablet PO SCH (22:00)
[2017-09-19] MEDS: lamoTRIgine 100 MG Tablet PO SCH (22:02)
--- NOTE | 2017-09-20 06:32 | XR ---
EXAM DATE: 09/20/2017 6:26 AM EDT AGE/SEX: 62 years / Male INDICATIONS: Short of breath, evaluate pneumonia, aspiration CLINICAL DATA: This is the patient's initial encounter. Patient reports that signs and symptoms have been present for 1 day and indicates a pain score of Nonresponsive. MEDICAL/SURGICAL HISTORY: Non-responsive. Non-responsive. [place] [facility] [place]. . FINDINGS: A single AP view of the chest demonstrates worsening bilateral airspace disease with possible posteri or layering effusion on the right as evidenced by increasing density in the right hemithorax. Worseni ng consolidation/effusion in the left lung base. Heart size is borderline prominent. Osseous structur es are intact CONCLUSION: Worsening bilateral airspace disease/effusions. Electronically signed by: Marek Ring MD 09/20/2017 6:30 AM EDT
[2017-09-20 09:11] LABS: Eos # (Auto) 0.2 th/mm3 (0.0-0.4); Eos % (Auto) 3.5 % (0.0-4.0); Hematocrit 29.9 % (39.0-51.0); Hemoglobin 9.3 gm/dL (13.0-17.0); Lymph % (Auto) 20.3 % (9.0-44.0); Mean Corpuscular Hemoglobin 28.9 pg (27.0-34.0); Mean Corpuscular Volume 93.2 fL (80.0-100.0); Mean Platelet Volume 8.4 fL (7.0-11.0); Mono # (Auto) 0.5 th/mm3 (0.0-0.9); Mono % (Auto) 9.6 % (0.0-8.0); Neut # (Auto) 3.1 th/mm3 (1.8-7.7); Neut % (Auto) 65.6 % (16.0-70.0); Platelet Count 295 th/mm3 (150-450); Red Blood Count 3.21 mil/mm3 (4.50-5.90); Red Cell Distribution Width 16.5 % (11.6-17.2); White Blood Count 4.8 th/mm3 (4.0-11.0)
[2017-09-20 09:27] LABS: Calcium 8.2 mg/dL (8.5-10.1); Carbon Dioxide 22.4 meq/L (21.0-32.0)
[2017-09-20 09:29] LABS: Potassium 4.6 meq/L (3.5-5.1)
--- NOTE | 2017-09-20 10:09 | P.PNIM ---
Subjective Interval history: Mr. Sharpe was afebrile with lower O2 sat overnight (O2 to 90% on 2 L O2 via NC) . Patient seen at dialysis today; he reports that he did not get to eat this morning. He denies abdominal pain and shortness of breath. No other concerns reported. Physical Exam Vital signs: Vital Signs 09/19/17 12:00 09/19/17 14:16 09/19/17 16:00 Temperature 98.6 F 97.1 F L 98.4 F Pulse Rate 82 77 77 Respiratory Rate 18 18 Blood Pressure 113/56 L 135/70 127/65 Pulse Oximetry 94 L 100 98 09/19/17 20:00 09/20/17 00:00 09/20/17 04:00 Temperature 97.4 F L 97.2 F L 97.4 F L Pulse Rate 82 85 90 Respiratory Rate 18 18 18 Blood Pressure 135/64 141/67 H 140/79 Pulse Oximetry 95 92 L 90 L Intake & Output 09/19/17 09/20/17 09/20/17 18:59 06:59 18:59 Intake Total 1150 / 1150 1020 / 1020 Output Total 0 / 0 0 / 0 Balance 1150 / 1150 1020 / 1020 Intake: IV 1150 / 1150 900 / 900 NS Inj 1,000 ML @ 125 mls/hr IV 1100 / 1100 900 / 900 .CONT .Q8H [facility] Rx#:[id number] Zosyn 2.25 GM Premix 50 ML @ 50 / 50 100 mls/hr IV.SIG Q12H [facility] Rx#: [id number] Oral 120 / 120 Output: Urine 0 / 0 0 / 0 Narrative: Gen: No acute distress Skin: Left distal lower extremity wrapped HEENT: Eyes: EOM grossly I. Cardiovascular: Regular rate and rhythm; normal peripheral perfusion grossly Respiratory: Lungs clear to auscultation bilaterally, decreased breath sounds; normal rate Abdomen: Soft, nondistended, nontender Musculoskeletal: Patient with some generalized extremity atrophy and left upper extremity contracture. Neuro/Psych: Awake/alert; more interactive than on prior exam Results - Labs CBC & Chem 7: 09/20/17 08:19 09/20/17 08:19 Laboratory Results - last 24 hr 09/19/17 09/19/17 09/20/17 10:23 20:02 08:19 WBC 4.8 RBC 3.21 L Hgb 9.3 L Hct 29.9 L MCV 93.2 MCH 28.9 MCHC 31.0 L RDW 16.5 Plt Count 295 MPV 8.4 Neut % (Auto) 65.6 Lymph % (Auto) 20.3 [place] % (Auto) 9.6 H Eos % (Auto) 3.5 Baso % (Auto) 1.0 Neut # (Auto) 3.1 Lymph # (Auto) 1.0 [place] # (Auto) 0.5 Eos # (Auto) 0.2 Baso # (Auto) 0.0 WBC Differential . Differential Comment Auto diff final Sodium Potassium Chloride Carbon Dioxide Anion Gap BUN Creatinine Estimated GFR POC Glucose 151 H 117 H Random Glucose Calcium 09/20/17 09/20/17 08:19 09:10 WBC RBC Hgb Hct MCV MCH MCHC RDW Plt Count MPV Neut % (Auto) Lymph % (Auto) [place] % (Auto) Eos % (Auto) Baso % (Auto) Neut # (Auto) Lymph # (Auto) [place] # (Auto) Eos # (Auto) Baso # (Auto) WBC Differential Differential Comment Sodium 143 Potassium 4.6 D Chloride 110 H Carbon Dioxide 22.4 Anion Gap 11 BUN 23 H Creatinine 7.95 H Estimated GFR 8 L POC Glucose 116 H Random Glucose 110 H Calcium 8.2 L - Imaging Impressions Chest X-Ray 09/20/17 07:00 CONCLUSION: Worsening bilateral airspace disease/effusions. Assessment and Plan - Assessment (1) Aspiration pneumonia of both lungs Code(s): J69.0 - Pneumonitis due to inhalation of food and vomit Status: Acute (2) End stage renal disease on dialysis Code(s): N18.6 - End stage renal disease; Z99.2 - Dependence on renal dialysis Status: Acute (3) Diabetes Code(s): E11.9 - Type 2 diabetes mellitus without complications Status: Acute - Plan Mr. Sharpe is a 62 yo M w/ PMH ESRD and CVA who presented via group home with: Pneumonia Impression: Suspect aspiration. CXR on admission with bibasilar infiltrates suggestive of bibasilar pneumonia. Reported dry cough at prior facility. No leukocytosis. Stable saturations on 2 L O2 via NC. On dialysis; lives in health care setting. Patient does not have leukocytosis or cough/sputum findings consistent with HCAP Repeat CXR 09/20- worsening airspace disease/effusions -Sputum cultures ordered, legionella/strep pneumo antigens ordered -Will reattempt -Speech therapy evaluation; barium swallow-> Pureed foods with nectar thickened liquids -Continue to monitor VS, respiratory function and provide NC O2 as needed -Due to worsening CXR, will get non-contrast chest CT -Will cover for aspiration pneumonia -Initially treated with Cefepime/Azithromycin (09/14-09/15); transitioned to Zosyn for aspiration coverage (09/15-) -Will restart Azithromycin and consider Vancomycin based on O2 today and CT results Abdominal pain Impression: Resolved. Reported complaint for constipation requiring enemas and concern for obstruction at his prior group home CT abdomen/pelvis- diffuse fatty infiltration. Stable 2cm L adrenal mass. Bilateral kidney atrophy w/o hydronephrosis. Diverticulosis scattered in sigmoid colon w/o inflammatory changes. Stable moderate hiatal hernia at GE junction Lipase 993 09/16 (increased from 631 on admission)-> 159 US with cholelithiasis Triglycerides unremarkable MRCP- no dilatation or filling defects in biliary tree/pancreatic ducts -Continue PRN bowel regimen -Continue Miralax daily - IV Morphine 2mg PRN (PA 6-10) due to pain -GI consulted -Full liquid diet -EGD with esophagitis/duodenitis -Can f/u as outpatient for colonoscopy -Signed off ESRD Impression: Chronic ESRD requiring dialysis -Nephrology consulted -Continue dialysis as needed T2DM Impression: On home Levemir 30 U daily, sliding scale -Will give SS insulin while inpatient and hold Levemir while NPO LLE wound Impression: Seen by wound care -Dressing changes q3 days per wound care Other chronic medical conditions -Home Tramadol, psychiatric medications, vitamins restarted DVT PPX -Continue Heparin 5 K U BID Discharge Planning: Pending GI evaluation. Will plan to discharge on oral antibiotics for pneumonia once deemed ready for discharge (1) Aspiration pneumonia of both lungs Qualifiers: Aspiration pneumonia type: unspecified Lung location: lower lobe of lung Qualified Code(s): J69.0 - Pneumonitis due to inhalation of food and vomit (3) Diabetes Qualifiers: Diabetes mellitus type: type 2 Chronic kidney disease stage: on chronic dialysis
--- NOTE | 2017-09-20 10:14 | P.PNNP ---
Subjective Interval history: Patient seen during HD, alert, no abd. pain. Physical Exam Vital signs: Vital Signs 09/19/17 12:00 09/19/17 14:16 09/19/17 16:00 Temperature 98.6 F 97.1 F L 98.4 F Pulse Rate 82 77 77 Respiratory Rate 18 18 Blood Pressure 113/56 L 135/70 127/65 Pulse Oximetry 94 L 100 98 09/19/17 20:00 09/20/17 00:00 09/20/17 04:00 Temperature 97.4 F L 97.2 F L 97.4 F L Pulse Rate 82 85 90 Respiratory Rate 18 18 18 Blood Pressure 135/64 141/67 H 140/79 Pulse Oximetry 95 92 L 90 L Intake & Output 09/19/17 09/20/17 09/20/17 18:59 06:59 18:59 Intake Total 1150 / 1150 1020 / 1020 Output Total 0 / 0 0 / 0 Balance 1150 / 1150 1020 / 1020 Intake: IV 1150 / 1150 900 / 900 NS Inj 1,000 ML @ 125 mls/hr IV 1100 / 1100 900 / 900 .CONT .Q8H [facility] Rx#:[id number] Zosyn 2.25 GM Premix 50 ML @ 50 / 50 100 mls/hr IV.SIG Q12H [facility] Rx#: [id number] Oral 120 / 120 Output: Urine 0 / 0 0 / 0 Narrative: Gen: No acute distress Skin: Left distal lower extremity wrapped HEENT: Eyes: EOM grossly I. Cardiovascular: Regular rate and rhythm; normal peripheral perfusion grossly Respiratory: Lungs clear to auscultation bilaterally, decreased breath sounds; normal rate Abdomen: Soft, nondistended, nontender Musculoskeletal: Patient with some generalized extremity atrophy and left upper extremity contracture. Neuro/Psych: Awake/alert; more interactive than on prior exam Assessment and Plan - Assessment (1) End stage renal disease on dialysis Code(s): N18.6 - End stage renal disease; Z99.2 - Dependence on renal dialysis Status: Acute Plan: Patient with End stage renal disease, on HD TTS. Last HD was on Sat. GI following and EGD done , results noted. Started on diet, tolerating well. HD now, remove fluid as tolerated. Hgb. is stable. (2) Aspiration pneumonia of both lungs Code(s): J69.0 - Pneumonitis due to inhalation of food and vomit Status: Acute Qualifiers: Aspiration pneumonia type: unspecified Lung location: lower lobe of lung Qualified Code(s): J69.0 - Pneumonitis due to inhalation of food and vomit Plan: On Zosyn (3) Diabetes Code(s): E11.9 - Type 2 diabetes mellitus without complications Status: Acute Qualifiers: Diabetes mellitus type: type 2 Chronic kidney disease stage: on chronic dialysis Plan: On regular sliding scale insulin, - Plan Patient will be kept n.p.o. and endoscopy will be performed by GI patient has no filling defect in gallbladder and incidental adrenal adenoma Hemodialysis was done yesterday Dr. Bell to follow.
[2017-09-20] MEDS ORDERED: Azithromycin Inj 500 MG in Sodium Chlor 0.9% Inj 250 ML IV.SIG SCH (11:00)
[2017-09-20] MEDS: Heparin - SQ 10,000 UNITS/ML Vial SQ SCH ×2 (11:32→21:06)
[2017-09-20] MEDS: Insulin NovoLIN Regular Correctional Sugar Inj SQ SCH ×5 (11:32→21:21)
[2017-09-20] MEDS: Senna/Docusate Sodium 8.6/50 MG Tablet PO SCH ×2 (11:33→21:05)
[2017-09-20] MEDS: Pantoprazole Sodium 20 MG DR Tablet PO SCH (11:33)
[2017-09-20] MEDS: Escitalopram 10 MG Tablet PO SCH (11:33)
[2017-09-20] MEDS: Polyethylene Glycol 3350 17 GM Packet PO SCH (11:33)
[2017-09-20] MEDS: risperiDONE 0.5 MG ODT PO SCH ×2 (11:33→21:06)
[2017-09-20] MEDS: Piperacil/Tazo 2.25 GM Premix 50 ML IV.SIG SCH ×2 (11:33→21:06)
--- NOTE | 2017-09-20 13:13 | CT ---
EXAM DATE: 09/20/2017 12:47 PM EDT AGE/SEX: 62 years / Male INDICATIONS: Increasing infiltrates. CLINICAL DATA: This is the patient's initial encounter. Patient reports that signs and symptoms have been present for 1 day and indicates a pain score of 4/10. MEDICAL/SURGICAL HISTORY: Renal failure, chronic. Diabetes. None. RADIATION DOSE: 19.57 CTDI (mGy) COMPARISON: C, CHEST 1V SINGLE AP, 09/20/2017. . TECHNIQUE: Multiple contiguous axial images were obtained through the chest without contrast. Image s were obtained in suspended respiration using multiple row detector helical technique. Using automa barby exposure control and adjustment of the mA and/or kV according to patient size, radiation dose was kept as low as reasonably achievable to obtain optimal diagnostic quality images. DICOM format imag e data is available electronically for review and comparison. FINDINGS: Lungs: There is consolidation in both posterior lung bases with air bronchograms. Mediastinum: There is good visualization of the great vessels of the middle mediastinum. No evidenc e of mediastinal or hilar adenopathy. There is a rounded low density fluid mass adjacent to the regio n the gastroesophageal junction measuring up to 5.6 x 4.3 cm. This appears to compress the esophagus to the right. Coronary artery calcifications are noted. Pleurae: There is small bilateral pleural effusions. Axillae: Unremarkable. Bony Structures: Unremarkable. Miscellaneous: The examination was extended to include the upper abdomen, and both adrenal glands ar e normal in size and configuration. There is moderate hepatic steatosis. CONCLUSION: 1. Low-density apparent extrinsic mass at the region the gastroesophageal junction measuring up to 5 .6 x 4.3 cm. This may represent a duplication cyst or other mass lesion. 2. Bilateral pleural effusions and consolidation in both posterior lung bases. Electronically signed by: Jd Shirley MD 09/20/2017 1:11 PM EDT
--- NOTE | 2017-09-20 14:34 | P.PNGI ---
Subjective Interval history: Pt had dialysis this morning. States he feels good today. Denies nausea, vomiting, abdominal pain. No BM today. <Jazmín Mercado - Last Filed: 09/20/17 14:32> Physical Exam Vital signs: Vital Signs 09/19/17 16:00 09/19/17 20:00 09/20/17 00:00 Temperature 98.4 F 97.4 F L 97.2 F L Pulse Rate 77 82 85 Respiratory Rate 18 18 18 Blood Pressure 127/65 135/64 141/67 H Pulse Oximetry 98 95 92 L 09/20/17 04:00 09/20/17 08:00 09/20/17 11:07 Temperature 97.4 F L 98.6 F Pulse Rate 90 94 H Respiratory Rate 18 18 Blood Pressure 140/79 138/71 Pulse Oximetry 90 L 99 95 Intake & Output 09/19/17 09/20/17 09/20/17 18:59 06:59 18:59 Intake Total 1150 / 1150 1020 / 1020 125 / 125 Output Total 0 / 0 0 / 0 4000 / 4000 Balance 1150 / 1150 1020 / 1020 -3875 / -3875 Intake: IV 1150 / 1150 900 / 900 NS Inj 1,000 ML @ 125 mls/hr IV 1100 / 1100 900 / 900 .CONT .Q8H [facility] Rx#:[id number] Zosyn 2.25 GM Premix 50 ML @ 50 / 50 100 mls/hr IV.SIG Q12H [facility] Rx#: [id number] Oral 120 / 120 Other 125 / 125 Output: Urine 0 / 0 0 / 0 Hemodialysis Amount 4000 / 4000 - Constitutional no acute distress - Routine HEENT Exam Head: Present: normocephalic, atraumatic - Routine Respiratory Exam Absent: accessory muscle use - Routine Abdominal Exam Present: normoactive bowel sounds, distended, firm. Absent: tenderness - Routine Skin Exam Present: dry, warm - Routine Neurological Exam Present: alert, oriented X3 <Jazmín Mercado - Last Filed: 09/20/17 14:32> Vital signs: Vital Signs 09/19/17 16:00 18 20:00 09/20/17 00:00 Temperature 98.4 F 97.4 F L 97.2 F L Pulse Rate 77 82 85 Respiratory Rate 18 18 18 Blood Pressure 127/65 135/64 141/67 H Pulse Oximetry 98 95 92 L 09/20/17 04:00 09/20/17 08:00 09/20/17 11:07 Temperature 97.4 F L 98.6 F Pulse Rate 90 94 H Respiratory Rate 18 18 Blood Pressure 140/79 138/71 Pulse Oximetry 90 L 99 95 Intake & Output 09/19/17 09/20/17 09/20/17 18:59 06:59 18:59 Intake Total 1150 / 1150 1020 / 1020 125 / 125 Output Total 0 / 0 0 / 0 4000 / 4000 Balance 1150 / 1150 1020 / 1020 -3875 / -3875 Intake: IV 1150 / 1150 900 / 900 NS Inj 1,000 ML @ 125 mls/hr IV 1100 / 1100 900 / 900 .CONT .Q8H [facility] Rx#:[id number] Zosyn 2.25 GM Premix 50 ML @ 50 / 50 100 mls/hr IV.SIG Q12H [facility] Rx#: [id number] Oral 120 / 120 Other 125 / 125 Output: Urine 0 / 0 0 / 0 Hemodialysis Amount 4000 / 4000 <[email or web address] - Last Filed: 09/20/17 15:01> Results - Labs CBC & Chem 7: 09/20/17 08:19 09/20/17 08:19 Laboratory Results - last 24 hr 09/19/17 09/20/17 09/20/17 20:02 08:19 08:19 WBC 4.8 RBC 3.21 L Hgb 9.3 L Hct 29.9 L MCV 93.2 MCH 28.9 MCHC 31.0 L RDW 16.5 Plt Count 295 MPV 8.4 Neut % (Auto) 65.6 Lymph % (Auto) 20.3 [place] % (Auto) 9.6 H Eos % (Auto) 3.5 Baso % (Auto) 1.0 Neut # (Auto) 3.1 Lymph # (Auto) 1.0 [place] # (Auto) 0.5 Eos # (Auto) 0.2 Baso # (Auto) 0.0 WBC Differential . Differential Comment Auto diff final Sodium 143 Potassium 4.6 D Chloride 110 H Carbon Dioxide 22.4 Anion Gap 11 BUN 23 H Creatinine 7.95 H Estimated GFR 8 L POC Glucose 117 H Random Glucose 110 H Calcium 8.2 L 09/20/17 09/20/17 09:10 11:45 WBC RBC Hgb Hct MCV MCH MCHC RDW Plt Count MPV Neut % (Auto) Lymph % (Auto) [place] % (Auto) Eos % (Auto) Baso % (Auto) Neut # (Auto) Lymph # (Auto) [place] # (Auto) Eos # (Auto) Baso # (Auto) WBC Differential Differential Comment Sodium Potassium Chloride Carbon Dioxide Anion Gap BUN Creatinine Estimated GFR POC Glucose 116 H 125 H Random Glucose Calcium - Imaging Impressions Chest CT 09/20/17 00:00 CONCLUSION: 1. Low-density apparent extrinsic mass at the region the gastroesophageal junction measuring up to 5.6 x 4.3 cm. This may represent a duplication cyst or other mass lesion. 2. Bilateral pleural effusions and consolidation in both posterior lung bases. Chest X-Ray 09/20/17 07:00 CONCLUSION: Worsening bilateral airspace disease/effusions. <Jazmín Mercado - Last Filed: 09/20/17 14:32> - Labs CBC & Chem 7: 09/20/17 08:19 09/20/17 08:19 Laboratory Results - last 24 hr 09/19/17 09/20/17 09/20/17 20:02 08:19 08:19 WBC 4.8 RBC 3.21 L Hgb 9.3 L Hct 29.9 L MCV 93.2 MCH 28.9 MCHC 31.0 L RDW 16.5 Plt Count 295 MPV 8.4 Neut % (Auto) 65.6 Lymph % (Auto) 20.3 [place] % (Auto) 9.6 H Eos % (Auto) 3.5 Baso % (Auto) 1.0 Neut # (Auto) 3.1 Lymph # (Auto) 1.0 [place] # (Auto) 0.5 Eos # (Auto) 0.2 Baso # (Auto) 0.0 WBC Differential . Differential Comment Auto diff final Sodium 143 Potassium 4.6 D Chloride 110 H Carbon Dioxide 22.4 Anion Gap 11 BUN 23 H Creatinine 7.95 H Estimated GFR 8 L POC Glucose 117 H Random Glucose 110 H Calcium 8.2 L 09/20/17 09/20/17 09:10 11:45 WBC RBC Hgb Hct MCV MCH MCHC RDW Plt Count MPV Neut % (Auto) Lymph % (Auto) [place] % (Auto) Eos % (Auto) Baso % (Auto) Neut # (Auto) Lymph # (Auto) [place] # (Auto) Eos # (Auto) Baso # (Auto) WBC Differential Differential Comment Sodium Potassium Chloride Carbon Dioxide Anion Gap BUN Creatinine Estimated GFR POC Glucose 116 H 125 H Random Glucose Calcium - Imaging Impressions Chest CT 09/20/17 00:00 CONCLUSION: 1. Low-density apparent extrinsic mass at the region the gastroesophageal junction measuring up to 5.6 x 4.3 cm. This may represent a duplication cyst or other mass lesion. 2. Bilateral pleural effusions and consolidation in both posterior lung bases. Chest X-Ray 09/20/17 07:00 CONCLUSION: Worsening bilateral airspace disease/effusions. <John Paul Amezquita - Last Filed: 09/20/17 15:01> Assessment and Plan - Plan - Elevated lipase 993- No known etiology. Possibly related to ESRD. CT of the abdomen on 09/14 showed stool throughout the colon without obstruction or ileus. Lower lungs significant for bibasilar infiltrates. US on 09/17 showed gallstones, and hepatic steatosis. LFT wnl. Pt endorses diffused abd pain. Denies nausea, vomiting, change in bowels, or fever. Admits to hx of pancreatitis 5-10 yrs ago, used to be heavy alcohol drinker but quit a yr ago. - Chronic anemia- likely anemia of chronic dz, no bleeding reported - ESRD on dialysis - Pneumonia. on abx - ? aspiration- S/P MBS recommendation for pureed sathish;ids, nectar thick liquids (09/18) Pt denies nausea, vomiting, abdominal pain. No BM, currently drinking a laxative. Made aware of plans for EGD tomorrow. Drop in H/H overnight, no obvious GIB. Likely multifactorial given ESRD. Lipase now WNL MRCP noted --> No dilation or filling defects seen in the biliary ducts or pancreatic duct. No filling defects in the gallbladder. Left adrenal adenoma. Bilateral pleural effusions , right > left. 09/19/2017 patient is doing better, no significant complaints today, still mild anemia, had upper endoscopy which show significant esophagitis and duodenitis, lipase back to normal (09/20) Pt with no GI complaints today. EGD biopsy pending. Plan: Diet as tolerated Continue PPI Colonoscopy can be done as an outpatient if anemia persists GI will sign off, have pt follow up with GI after DC Pt has been seen and examined by myself and Dr. Amezquita and this note is written on his behalf <Jazmín Mercado - Last Filed: 09/20/17 14:32> - Plan Patient was seen and examined, agree with above note, no GI complaint, okay to discharge home from GI and follow-up as an outpatient <John Paul Amezquita - Last Filed: 09/20/17 15:01>
[2017-09-20] MEDS: Morphine Inj 4 MG/ML Vial IV.PUSH PRN (17:37)
[2017-09-20] MEDS: lamoTRIgine 100 MG Tablet PO SCH (21:05)
[2017-09-20] MEDS: traZODone 100 MG Tablet PO SCH (21:05)
[2017-09-21] MEDS: Insulin NovoLIN Regular Correctional Sugar Inj SQ SCH ×5 (05:19→20:44)
[2017-09-21] MEDS: Sod Chloride 0.9% Inj 1,000 ML IV.CONT SCH ×4 (05:29→15:27)
[2017-09-21 09:50] LABS: INR 1.1 Ratio; Prothrombin Time 11.6 sec (9.8-11.6)
[2017-09-21 09:51] LABS: Baso % (Auto) 0.9 % (0.0-2.0); Eos # (Auto) 0.1 th/mm3 (0.0-0.4); Eos % (Auto) 2.6 % (0.0-4.0); Hematocrit 27.2 % (39.0-51.0); Hemoglobin 8.5 gm/dL (13.0-17.0); Lymph # (Auto) 1.4 th/mm3 (1.0-4.8); Lymph % (Auto) 29.3 % (9.0-44.0); Mean Corpuscular HGB Conc 31.3 % (32.0-36.0); Mean Corpuscular Hemoglobin 28.7 pg (27.0-34.0); Mean Corpuscular Volume 91.7 fL (80.0-100.0); Mean Platelet Volume 7.9 fL (7.0-11.0); Mono # (Auto) 0.5 th/mm3 (0.0-0.9); Mono % (Auto) 10.6 % (0.0-8.0); Neut # (Auto) 2.8 th/mm3 (1.8-7.7); Neut % (Auto) 56.6 % (16.0-70.0); Platelet Count 295 th/mm3 (150-450); Red Blood Count 2.96 mil/mm3 (4.50-5.90); Red Cell Distribution Width 16.5 % (11.6-17.2); White Blood Count 4.9 th/mm3 (4.0-11.0)
[2017-09-21 10:05] LABS: Calcium 8.4 mg/dL (8.5-10.1); Carbon Dioxide 26.1 meq/L (21.0-32.0); Potassium 3.7 meq/L (3.5-5.1)
[2017-09-21] MEDS: risperiDONE 0.5 MG ODT PO SCH ×2 (10:17→20:35)
[2017-09-21] MEDS: Escitalopram 10 MG Tablet PO SCH (10:17)
[2017-09-21] MEDS: Senna/Docusate Sodium 8.6/50 MG Tablet PO SCH ×2 (10:17→20:35)
[2017-09-21] MEDS: Heparin - SQ 10,000 UNITS/ML Vial SQ SCH ×2 (10:18→20:35)
[2017-09-21] MEDS: Polyethylene Glycol 3350 17 GM Packet PO SCH (10:18)
[2017-09-21] MEDS: Piperacil/Tazo 2.25 GM Premix 50 ML IV.SIG SCH ×3 (10:36→22:51)
--- NOTE | 2017-09-21 12:13 | P.PNIM ---
Subjective Interval history: Mr. Sharpe was afebrile with O2 sats ~91% on 2L O2 via NC. Patient reports that he is cold today but otherwise does not report complaints. Patient does not report shortness of breath or abdominal pain. Physical Exam Vital signs: Vital Signs 09/20/17 16:00 09/20/17 16:59 09/20/17 18:27 Temperature 98.4 F 98.6 F Pulse Rate 89 94 H Respiratory Rate 18 18 Blood Pressure 110/62 138/71 Pulse Oximetry 99 99 99 09/20/17 20:00 09/20/17 23:38 09/21/17 08:00 Temperature 98.1 F 98.1 F 98.1 F Pulse Rate 90 87 86 Respiratory Rate 16 15 16 Blood Pressure 109/62 118/63 112/63 Pulse Oximetry 91 L 91 L 93 L Intake & Output 09/20/17 09/21/17 09/21/17 18:59 06:59 18:59 Intake Total 1805 / 1805 850 / 850 100 / 100 Output Total 4000 / 4000 Balance -2195 / -2195 850 / 850 100 / 100 Weight 85.41 kg Intake: IV 1000 / 1000 100 / 100 NS Inj 1,000 ML @ 125 mls/hr IV 1000 / 1000 .CONT .Q8H [facility] Rx#:[id number] Zosyn 2.25 GM Premix 50 ML @ 100 / 100 100 mls/hr IV.SIG Q12H [facility] Rx#: [id number] Oral 680 / 680 850 / 850 Other 125 / 125 Output: Hemodialysis Amount 4000 / 4000 Other: # Voids 0 Date of Last Bowel Movement 09/19/17 Narrative: Gen: No acute distress Skin: Left distal lower extremity wrapped HEENT: Eyes: EOM grossly I. Cardiovascular: Regular rate and rhythm; normal peripheral perfusion grossly Respiratory: Lungs CTAB, decreased breath sounds; normal rate Abdomen: Soft, nondistended, nontender Musculoskeletal: Patient with some generalized extremity atrophy and left upper extremity contracture. Neuro/Psych: Awake/alert; more interactive than on prior exam Results - Labs CBC & Chem 7: 09/21/17 09:24 09/21/17 09:24 Laboratory Results - last 24 hr 09/20/17 09/20/17 09/21/17 16:31 21:18 04:06 WBC RBC Hgb Hct MCV MCH MCHC RDW Plt Count MPV Neut % (Auto) Lymph % (Auto) [place] % (Auto) Eos % (Auto) Baso % (Auto) Neut # (Auto) Lymph # (Auto) [place] # (Auto) Eos # (Auto) Baso # (Auto) WBC Differential Differential Comment PT INR APTT Sodium Potassium Chloride Carbon Dioxide Anion Gap BUN Creatinine Estimated GFR POC Glucose 153 H 119 H 137 H Random Glucose Calcium 09/21/17 09/21/17 09/21/17 08:04 09:24 09:24 WBC 4.9 RBC 2.96 L Hgb 8.5 L Hct 27.2 L MCV 91.7 MCH 28.7 MCHC 31.3 L RDW 16.5 Plt Count 295 MPV 7.9 Neut % (Auto) 56.6 Lymph % (Auto) 29.3 [place] % (Auto) 10.6 H Eos % (Auto) 2.6 Baso % (Auto) 0.9 Neut # (Auto) 2.8 Lymph # (Auto) 1.4 [place] # (Auto) 0.5 Eos # (Auto) 0.1 Baso # (Auto) 0.0 WBC Differential . Differential Comment Auto diff final PT 11.6 INR 1.1 APTT 29.0 Sodium Potassium Chloride Carbon Dioxide Anion Gap BUN Creatinine Estimated GFR POC Glucose 120 H Random Glucose Calcium 09/21/17 09/21/17 09:24 12:04 WBC RBC Hgb Hct MCV MCH MCHC RDW Plt Count MPV Neut % (Auto) Lymph % (Auto) [place] % (Auto) Eos % (Auto) Baso % (Auto) Neut # (Auto) Lymph # (Auto) [place] # (Auto) Eos # (Auto) Baso # (Auto) WBC Differential Differential Comment PT INR APTT Sodium 142 Potassium 3.7 D Chloride 106 Carbon Dioxide 26.1 Anion Gap 10 BUN 13 Creatinine 6.18 H Estimated GFR 11 L POC Glucose 143 H Random Glucose 103 Calcium 8.4 L - Imaging Impressions Chest CT 09/20/17 00:00 CONCLUSION: 1. Low-density apparent extrinsic mass at the region the gastroesophageal junction measuring up to 5.6 x 4.3 cm. This may represent a duplication cyst or other mass lesion. 2. Bilateral pleural effusions and consolidation in both posterior lung bases. Assessment and Plan - Assessment (1) Aspiration pneumonia of both lungs Code(s): J69.0 - Pneumonitis due to inhalation of food and vomit Status: Acute (2) End stage renal disease on dialysis Code(s): N18.6 - End stage renal disease; Z99.2 - Dependence on renal dialysis Status: Acute (3) Diabetes Code(s): E11.9 - Type 2 diabetes mellitus without complications Status: Acute - Plan Mr. Sharpe is a 62 yo M w/ PMH ESRD and CVA who presented via skilled nursing with: Pneumonia Impression: Suspect aspiration. CXR on admission with bibasilar infiltrates suggestive of bibasilar pneumonia. Reported dry cough at prior facility. No leukocytosis. Stable saturations on 2 L O2 via NC. On dialysis; lives in health care setting. Patient does not have leukocytosis or cough/sputum findings consistent with HCAP Repeat CXR 09/20- worsening airspace disease/effusions CT 09/20- low density apparent extrinsic mass ar GE junction ~5.6x4.3cm. May be duplication cyst or other mass lesion. Bilateral pleural effusions and consolidation in posterior lung bases -Sputum cultures ordered, legionella/strep pneumo antigens ordered -Will reattempt -Speech therapy evaluation; barium swallow-> Pureed foods with nectar thickened liquids -Continue to monitor VS, respiratory function and provide NC O2 as needed -Will cover for aspiration pneumonia -Initially treated with Cefepime/Azithromycin (09/14-09/15); transitioned to Zosyn for aspiration coverage (09/15-) -Will consider Azithromycin and Vancomycin based on O2 sats lower and consolidations CT findings -Discussed with GI; since seems extrinsic, does not appear to be amenable to biopsy -Will consult IR for evaluation for biopsy Abdominal pain Impression: Resolved. Reported complaint for constipation requiring enemas and concern for obstruction at his prior skilled nursing CT abdomen/pelvis- diffuse fatty infiltration. Stable 2cm L adrenal mass. Bilateral kidney atrophy w/o hydronephrosis. Diverticulosis scattered in sigmoid colon w/o inflammatory changes. Stable moderate hiatal hernia at GE junction Lipase 993 09/16 (increased from 631 on admission)-> 159 US with cholelithiasis Triglycerides unremarkable MRCP- no dilatation or filling defects in biliary tree/pancreatic ducts -Continue PRN bowel regimen -Continue Miralax daily - IV Morphine 2mg PRN (PA 6-10) due to pain -GI consulted -Full liquid diet -EGD with esophagitis/duodenitis -Can f/u as outpatient for colonoscopy -Signed off ESRD Impression: Chronic ESRD requiring dialysis -Nephrology consulted -Continue dialysis as needed T2DM Impression: On home Levemir 30 U daily, sliding scale -Will give SS insulin while inpatient and hold Levemir while NPO LLE wound Impression: Seen by wound care -Dressing changes q3 days per wound care Other chronic medical conditions -Home Tramadol, psychiatric medications, vitamins restarted DVT PPX -Continue Heparin 5 K U BID Discharge Planning: Pending GI evaluation. Will plan to discharge on oral antibiotics for pneumonia once deemed ready for discharge (1) Aspiration pneumonia of both lungs Qualifiers: Aspiration pneumonia type: unspecified Lung location: lower lobe of lung Qualified Code(s): J69.0 - Pneumonitis due to inhalation of food and vomit (3) Diabetes Qualifiers: Diabetes mellitus type: type 2 Chronic kidney disease stage: on chronic dialysis
[2017-09-21] MEDS ORDERED: Vancomycin Inj 1,000 MG in Sodium Chlor 0.9% Inj 250 ML IV.SIG SCH (16:00)
--- NOTE | 2017-09-21 16:02 | CT ---
EXAM DATE: 09/21/2017 3:50 PM EDT AGE/SEX: 62 years / Male INDICATIONS: Mass near gastroesophageal junction. Not possible for biopsy per GI. COMPARISON: No prior exams available for comparison. FINDINGS: The recent CT of the chest dated 09/20/2017 was reviewed for possible biopsy of mass in the region of the gastroesophageal junction. The lesion in question is cystic and has been present on mu ltiple previous examinations dating back to November 2014. 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 The findings wer e discussed with Dr. Gonzalez at the time of consultation. If there is clinical concern that this lesio n represents rare cystic malignancy, PET/CT scan may be helpful for further evaluation. Electronically signed by: Damaso Sol MD 09/21/2017 4:01 PM EDT
--- NOTE | 2017-09-21 18:39 | ECG ---
Date Performed: 09/21/2017 Time Performed: 18:11:17 PTAGE: 62 years EKG: Sinus rhythm NORMAL ECG Compared to prior electrocardiogram, rate has decreased PREVIOUS TRACING : 11/11/2016 10.21 DOCTOR: Ron Duggan Interpretating Date/Time 09/21/2017 18:39:28
--- NOTE | 2017-09-21 19:06 | P.PNNP ---
Subjective Interval history: Patient seen in the afternoon, no SOB, not in distress. Physical Exam Vital signs: Vital Signs 09/20/17 20:00 09/20/17 23:38 09/21/17 08:00 Temperature 98.1 F 98.1 F 98.1 F Pulse Rate 90 87 86 Respiratory Rate 16 15 16 Blood Pressure 109/62 118/63 112/63 Pulse Oximetry 91 L 91 L 93 L 09/21/17 12:00 09/21/17 16:00 Temperature 97.9 F 97.9 F Pulse Rate 87 79 Respiratory Rate 19 17 Blood Pressure 106/59 L 128/85 Pulse Oximetry 92 L 93 L Intake & Output 09/21/17 09/21/17 09/22/17 06:59 18:59 06:59 Intake Total 850 / 850 1275 / 1275 Output Total 0 / 0 Balance 850 / 850 1275 / 1275 Weight 85.41 kg Intake: IV 1100 / 1100 NS Inj 1,000 ML @ 125 mls/hr IV 1000 / 1000 .CONT .Q8H [facility] Rx#:[id number] Zosyn 2.25 GM Premix 50 ML @ 100 / 100 100 mls/hr IV.SIG Q12H [facility] Rx#: [id number] Oral 850 / 850 175 / 175 Output: Urine 0 / 0 Other: # Voids 0 Date of Last Bowel Movement 09/19/17 # Bowel Movements 0 Narrative: Gen: No acute distress Skin: Left distal lower extremity wrapped HEENT: Eyes: EOM grossly I. Cardiovascular: Regular rate and rhythm; normal peripheral perfusion grossly Respiratory: Lungs CTAB, decreased breath sounds; normal rate Abdomen: Soft, nondistended, nontender Musculoskeletal: Patient with some generalized extremity atrophy and left upper extremity contracture. Neuro/Psych: Awake/alert; more interactive than on prior exam Assessment and Plan - Assessment (1) End stage renal disease on dialysis Code(s): N18.6 - End stage renal disease; Z99.2 - Dependence on renal dialysis Status: Acute Plan: Patient with End stage renal disease, on HD TTS. GI following and EGD done , results noted. Started on diet, tolerating well. HD done yesterday, remove fluid as tolerated. Hgb. is stable. Follow Hgb., HD in AM. Epogen with HD. (2) Aspiration pneumonia of both lungs Code(s): J69.0 - Pneumonitis due to inhalation of food and vomit Status: Acute Qualifiers: Aspiration pneumonia type: unspecified Lung location: lower lobe of lung Qualified Code(s): J69.0 - Pneumonitis due to inhalation of food and vomit Plan: On Zosyn (3) Diabetes Code(s): E11.9 - Type 2 diabetes mellitus without complications Status: Acute Qualifiers: Diabetes mellitus type: type 2 Chronic kidney disease stage: on chronic dialysis Plan: On regular sliding scale insulin, - Plan Patient will be kept n.p.o. and endoscopy will be performed by GI patient has no filling defect in gallbladder and incidental adrenal adenoma Hemodialysis was done yesterday Dr. Bell to follow.
[2017-09-21] MEDS: lamoTRIgine 100 MG Tablet PO SCH (20:35)
[2017-09-21] MEDS: traZODone 100 MG Tablet PO SCH (20:35)
[2017-09-22] MEDS: Insulin NovoLIN Regular Correctional Sugar Inj SQ SCH ×4 (03:54→16:44)
[2017-09-22 08:56] LABS: Baso % (Auto) 1.1 % (0.0-2.0); Eos # (Auto) 0.2 th/mm3 (0.0-0.4); Eos % (Auto) 3.7 % (0.0-4.0); Hematocrit 26.1 % (39.0-51.0); Hemoglobin 8.2 gm/dL (13.0-17.0); Lymph # (Auto) 1.3 th/mm3 (1.0-4.8); Lymph % (Auto) 28.5 % (9.0-44.0); Mean Corpuscular HGB Conc 31.5 % (32.0-36.0); Mean Corpuscular Hemoglobin 28.9 pg (27.0-34.0); Mean Corpuscular Volume 91.5 fL (80.0-100.0); Mean Platelet Volume 7.6 fL (7.0-11.0); Mono # (Auto) 0.5 th/mm3 (0.0-0.9); Mono % (Auto) 11.2 % (0.0-8.0); Neut # (Auto) 2.5 th/mm3 (1.8-7.7); Neut % (Auto) 55.5 % (16.0-70.0); Platelet Count 288 th/mm3 (150-450); Red Blood Count 2.85 mil/mm3 (4.50-5.90); Red Cell Distribution Width 16.4 % (11.6-17.2); White Blood Count 4.5 th/mm3 (4.0-11.0)
[2017-09-22 09:25] LABS: Calcium 8.2 mg/dL (8.5-10.1); Carbon Dioxide 24.5 meq/L (21.0-32.0); Potassium 3.8 meq/L (3.5-5.1)
[2017-09-22] MEDS: Piperacil/Tazo 2.25 GM Premix 50 ML IV.SIG SCH (12:29)
[2017-09-22] MEDS: risperiDONE 0.5 MG ODT PO SCH (12:30)
[2017-09-22] MEDS: Heparin - SQ 10,000 UNITS/ML Vial SQ SCH (12:30)
[2017-09-22] MEDS: Senna/Docusate Sodium 8.6/50 MG Tablet PO SCH (12:30)
[2017-09-22] MEDS: Escitalopram 10 MG Tablet PO SCH (12:30)
[2017-09-22] MEDS: Polyethylene Glycol 3350 17 GM Packet PO SCH (12:31)
--- NOTE | 2017-09-22 13:00 | P.PNIM ---
Subjective Interval history: Mr. Sharpe was seen after dialysis today. He reports that he is hungry for lunch but denies other concerns at this time. Patient denies abdominal pain and shortness of breath. Patient states that he is reluctant to have a bowel movement due to lack of diapers at the hospital (last BM 09/19). Physical Exam Vital signs: Vital Signs 09/21/17 16:00 09/21/17 20:00 09/22/17 01:20 Temperature 97.9 F 97.9 F 97.5 F L Pulse Rate 79 80 82 Respiratory Rate 17 18 18 Blood Pressure 128/85 127/63 125/67 Pulse Oximetry 93 L 94 L 95 09/22/17 04:00 09/22/17 08:00 09/22/17 12:30 Temperature 97.9 F 97.8 F 97.9 F Pulse Rate 87 84 85 Respiratory Rate 18 16 18 Blood Pressure 130/69 109/54 L 102/59 L Pulse Oximetry 93 L 90 L 98 Intake & Output 09/21/17 09/22/17 09/22/17 18:59 06:59 18:59 Intake Total 1275 / 1275 290 / 290 Output Total 0 / 0 Balance 1275 / 1275 290 / 290 Weight 86 kg Intake: IV 1100 / 1100 50 / 50 NS Inj 1,000 ML @ 125 mls/hr IV 1000 / 1000 .CONT .Q8H [facility] Rx#:[id number] Zosyn 2.25 GM Premix 50 ML @ 100 / 100 50 / 50 100 mls/hr IV.SIG Q12H [facility] Rx#: [id number] Oral 175 / 175 240 / 240 Output: Urine 0 / 0 Other: # Voids 0 Date of Last Bowel Movement 09/19/17 # Bowel Movements 0 Narrative: Gen: No acute distress Skin: Left distal lower extremity wrapped; mild pain to palpation HEENT: Eyes: EOM grossly I. Cardiovascular: Regular rate and rhythm; normal peripheral perfusion grossly Respiratory: Lungs CTAB, decreased breath sounds; normal rate Abdomen: Soft, nondistended, nontender Musculoskeletal: Patient with some generalized extremity atrophy and left upper extremity contracture. Neuro/Psych: Awake/alert; more interactive than on prior exam Results - Labs CBC & Chem 7: 09/22/17 08:24 09/22/17 08:24 Laboratory Results - last 24 hr 09/21/17 09/21/1709/22/18 16:51 20:44 07:48 WBC RBC Hgb Hct MCV MCH MCHC RDW Plt Count MPV Neut % (Auto) Lymph % (Auto) [place] % (Auto) Eos % (Auto) Baso % (Auto) Neut # (Auto) Lymph # (Auto) [place] # (Auto) Eos # (Auto) Baso # (Auto) WBC Differential Differential Comment Sodium Potassium Chloride Carbon Dioxide Anion Gap BUN Creatinine Estimated GFR POC Glucose 146 H 148 H 139 H Random Glucose Calcium Procalcitonin 09/22/17 09/22/17 09/22/17 08:24 08:24 08:24 WBC 4.5 RBC 2.85 L Hgb 8.2 L Hct 26.1 L MCV 91.5 MCH 28.9 MCHC 31.5 L RDW 16.4 Plt Count 288 MPV 7.6 Neut % (Auto) 55.5 Lymph % (Auto) 28.5 [place] % (Auto) 11.2 H Eos % (Auto) 3.7 Baso % (Auto) 1.1 Neut # (Auto) 2.5 Lymph # (Auto) 1.3 [place] # (Auto) 0.5 Eos # (Auto) 0.2 Baso # (Auto) 0.0 WBC Differential . Differential Comment Auto diff final Sodium 142 Potassium 3.8 Chloride 106 Carbon Dioxide 24.5 Anion Gap 12 BUN 15 Creatinine 7.56 H Estimated GFR 9 L POC Glucose Random Glucose 134 H Calcium 8.2 L Procalcitonin 1.91 H Assessment and Plan - Assessment (1) Aspiration pneumonia of both lungs Code(s): J69.0 - Pneumonitis due to inhalation of food and vomit Status: Acute (2) End stage renal disease on dialysis Code(s): N18.6 - End stage renal disease; Z99.2 - Dependence on renal dialysis Status: Acute (3) Diabetes Code(s): E11.9 - Type 2 diabetes mellitus without complications Status: Acute - Plan Mr. Sharpe is a 62 yo M w/ PMH ESRD and CVA who presented via residential with: Pneumonia Impression: Patient does not have leukocytosis or cough/sputum findings consistent with HCAP Suspect aspiration. Reported dry cough at prior facility. Stable saturations on 2 L O2 via NC; on O2 at home. On dialysis; lives in health care setting. CXR on admission with bibasilar infiltrates suggestive of bibasilar pneumonia. Repeat CXR 09/20- worsening airspace disease/effusions CT 09/20- low density apparent extrinsic mass at GE junction ~5.6x4.3cm. May be duplication cyst or other mass lesion. Bilateral pleural effusions and consolidation in posterior lung bases -Sputum cultures ordered, legionella/strep pneumo antigens ordered -Will reattempt -Speech therapy evaluation; barium swallow-> Pureed foods with nectar thickened liquids -Will cover for aspiration pneumonia -Initially treated with Cefepime/Azithromycin (09/14-09/15); transitioned to Zosyn for aspiration coverage (09/15-) *09/22: Due to patient persistent lack of cough, leukocytosis, or other respiratory findings, suspect that worsening airspace disease/effusions on CXR imaging are due to increased IVF during hospitalization in association and lack of ability for clearance with ESRD rather than worsening pneumonia. 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 No biopsy recommended at this time. If clinical concern, PET recommended as outpatient Abdominal pain Impression: Resolved. Reported complaint for constipation requiring enemas and concern for obstruction at his prior residential CT abdomen/pelvis- diffuse fatty infiltration. Stable 2cm L adrenal mass. Bilateral kidney atrophy w/o hydronephrosis. Diverticulosis scattered in sigmoid colon w/o inflammatory changes. Stable moderate hiatal hernia at GE junction Patient found to have elevated Lipase 993 09/16 (increased from 631 on admission) . GI consulted. US demonstrated cholelithiasis; MRCP did not show dilatation or filling defects in biliary tree/pancreatic ducts. Triglycerides unremarkable. Lipase downtrended to 159 with mild fluids but not other intervention. GI consulted; EGD performed showing esophagitis/duodenitis. Patient deemed stable for follow-up with GI as outpatient for colonoscopy -Continue PRN bowel regimen -Continue Miralax daily ESRD Impression: Chronic ESRD requiring dialysis -Nephrology consulted -Continue dialysis as needed T2DM Impression: On home Levemir 30 U daily, sliding scale -Will give SS insulin while inpatient and hold Levemir while NPO LLE wound Impression: Seen by wound care -Dressing changes q3 days per wound care Other chronic medical conditions -Home Tramadol, psychiatric medications, vitamins restarted DVT PPX -Continue Heparin 5 K U BID Code Status: Full code Discharge Planning: GI cleared. Suspect XR findings due to fluid hydration on dialysis. Will plan to discharge on oral antibiotics for pneumonia; has completed 7 days of Zosyn. Anticipate discharge today (1) Aspiration pneumonia of both lungs Qualifiers: Aspiration pneumonia type: unspecified Lung location: lower lobe of lung Qualified Code(s): J69.0 - Pneumonitis due to inhalation of food and vomit (3) Diabetes Qualifiers: Diabetes mellitus type: type 2 Chronic kidney disease stage: on chronic dialysis
--- NOTE | 2017-09-22 13:39 | P.DIET ---
Nutritional Evaluation Type of nutrition evaluation: follow-up Nutrition screening: Weight Loss > 10 lbs, MDC (MDC for Wound) Subjective Barriers to Nutrition: Swallowing problem Oral Diet Tolerance Assessment Indicates: Swallowing problems Subjective Comments: Pt says he's not eating well b/c he can't. When asked to elaborate he states "I can't eat this stuff, look at it". Agreeable to Nepro BID for additional nutrition. Denies N/V/D/C. He is paraplegic and requires someone to feed him. Objective - Diagnosis HCAP, Asp PNA - Objective Spinal Cord Impairment: Quadriplegia (10-15 lbs) Weight Subtracted: 10 lbs % IBW: 143 (RXE=130#, confirmed 66in for ht. Adjusted for quadriplegia) Body Weight Used for Calculations: Upper end of IBW (66kg) Energy Needs - Lower Range (kCal/kg): 28 Energy Needs - Upper Range (kCal/kg): 33 Lower Limit kCal/kg (kCals): 1,848 Upper Limit kCal/kg (kCals): 2,178 Lower Limit Protein Factor (Grams per Kg): 1.4 Upper Limit Protein Factor (Grams per Kg): 1.6 Lower Protein Needs (Protein): 92 Upper Protein Needs (Protein): 106 Dietitian Reviewed in Medical Record: Current diet, Curent medications, Intake & Output, Labs, Medical history, Wound/DTI Diet Order: 1999ADA, Pureed, [place] Thickened Liquids Speech Therapy Recommendations: Yes (Pureed, [place] Thick Liquids) Wound Care Note: 09/15/17 Traumatic wound to LLE Objective Comments: Meds: Sensipar, Remeron, Renvela Labs: manager ambulatory 7.56, eGFR 9, AccuCheck 139 HD on T, R, Sat Feeding - Current PO Supplement Current Supplement: Nepro Current Frequency of Supplement: Twice daily Current kCals Provided by Supplement: 425 Current Protein Provided by Supplement: 19 Assessment Assessment: Pt is on a 1999ADA, Pureed diet w/ [place] Thickened Liquids. He states he's not eating b/c he "cannot eat this stuff". Pt agreeable to Nepro BID for added nutrition. We discussed that Nepro is for meal supplementation, not meal replacement and he still needs to eat his meals prior to supplement intake. Pt has hx of quadriplegia and requires someone to feed him. Pt is at nutritional risk 2/2 quadriplegic status, poor PO intake, and the need for a modified diet. Noted wt trending upwards since admission. Continue current POC. Dietitian following. Recommendations: 1. Diet per ST recs, 2000ADA is appropriate. 2. Nepro BID. Dietitian to Monitor: Lab values, Electrolytes, Renal labs, Glucose level, Supplement acceptance, Intake & Output, Diet tolerance, Weight change, PO Intake , Swallow recommendations, Medical course
--- NOTE | 2017-09-22 19:09 | P.PNNP ---
Subjective Interval history: Patient seen in AM during HD, alert, no abd. pain. Physical Exam Vital signs: Vital Signs 09/21/17 20:00 09/22/17 01:20 09/22/17 04:00 Temperature 97.9 F 97.5 F L 97.9 F Pulse Rate 80 82 87 Respiratory Rate 18 18 18 Blood Pressure 127/63 125/67 130/69 Pulse Oximetry 94 L 95 93 L 09/22/17 08:00 09/22/17 12:30 Temperature 97.8 F 97.9 F Pulse Rate 84 85 Respiratory Rate 16 18 Blood Pressure 109/54 L 102/59 L Pulse Oximetry 90 L 98 Intake & Output 09/22/17 09/22/17 09/23/17 06:59 18:59 06:59 Intake Total 290 / 290 50 / 50 Balance 290 / 290 50 / 50 Weight 86 kg Intake: IV 50 / 50 50 / 50 Zosyn 2.25 GM Premix 50 ML @ 50 / 50 50 / 50 100 mls/hr IV.SIG Q12H [facility] Rx#: [id number] Oral 240 / 240 Other: # Voids 0 Date of Last Bowel Movement 09/19/17 Narrative: Gen: No acute distress Skin: Left distal lower extremity wrapped; mild pain to palpation HEENT: Eyes: EOM grossly I. Cardiovascular: Regular rate and rhythm; normal peripheral perfusion grossly Respiratory: Lungs CTAB, decreased breath sounds; normal rate Abdomen: Soft, nondistended, nontender Musculoskeletal: Patient with some generalized extremity atrophy and left upper extremity contracture. Neuro/Psych: Awake/alert; more interactive than on prior exam Assessment and Plan - Assessment (1) End stage renal disease on dialysis Code(s): N18.6 - End stage renal disease; Z99.2 - Dependence on renal dialysis Status: Acute Plan: Patient with End stage renal disease, on HD TTS. GI following and EGD done , results noted. Started on diet, tolerating well. HD now and remove fluid as tolerated. Hgb. is stable. Follow Hgb., Epogen with HD. (2) Aspiration pneumonia of both lungs Code(s): J69.0 - Pneumonitis due to inhalation of food and vomit Status: Acute Qualifiers: Aspiration pneumonia type: unspecified Lung location: lower lobe of lung Qualified Code(s): J69.0 - Pneumonitis due to inhalation of food and vomit Plan: On Zosyn (3) Diabetes Code(s): E11.9 - Type 2 diabetes mellitus without complications Status: Acute Qualifiers: Diabetes mellitus type: type 2 Chronic kidney disease stage: on chronic dialysis Plan: On regular sliding scale insulin, - Plan Patient will be kept n.p.o. and endoscopy will be performed by GI patient has no filling defect in gallbladder and incidental adrenal adenoma Hemodialysis was done yesterday Dr. Bell to follow.
--- NOTE | 2017-09-25 16:57 | P.DS ---
Date of admission: 09/14/17 22:41 Primary care physician: Sharan Hill MD Attending physician on discharge: Bradley Gonzalez Anticipated date of discharge: 09/22/17 Brief History from admission: 62-year-old -Welsh male with a complex past medical history presents to the emergency department for the evaluation of constipation and possible obstruction. The patient is a quadriplegic who was sent from a group home because he has had no bowel movement for 3 days on his own but did have 2 enemas performed yesterday with good bowel movements following. An outpatient x -ray was obtained which revealed possible obstruction versus ileus. CT of the abdomen showed stool throughout the colon without obstruction or ileus. Lower lungs significant for bibasilar infiltrates. While in the emergency department , the previous provider identified concern for aspiration as the patient was choking and coughing while taking p.o. At this time, the patient has no complaints except for itchiness. DS: Diagnosis - Discharge Diagnosis (1) Aspiration pneumonia of both lungs Status: Acute (2) End stage renal disease on dialysis Status: Acute (3) Diabetes Status: Acute DS: Medications - Discharge Medications Prescriptions: amoxicillin-pot clavulanate [Augmentin] 1 tab PO Q12H 7 Days #14 tab DS: Summary Hospital Course: Mr. Sharpe is a 62 yo M with PMH CVA, ESRD, hypothyroidism, dysphagia, T2DM who presented to [place] ED from group home with constipation and concern for bowel obstruction. Patient underwent CT A/P which demonstrated fatty infiltration of liver, stable 2cm adrenal mass, diverticulosis, and stable hiatal hernia. CXR on admission suggestive of bibasilar pneumonia. Per history in ED, patient had some aspiration of contrast and cough; he was also found to have no SIRS signs but lactic acid of 3.2. Patient admitted for treatment of aspiration pneumonia and speech therapy evaluation. Patient initially made NPO by speech therapy; he subsequently had repeat evaluation and barium swallow and was placed on pureed foods and nectar thickened liquids. Patient found to have lipase ~990 during hospitalization; Gastroenterology was consulted. US demonstrated cholelithiasis but normal LFT's and MRCP did not show dilatation or filling defects in pancreatic ducts or biliary tree. Lipase downtrended spontaneously. EGD was performed showing esophagitis/duodenitis. Patient was switched from Cefepime/Azithromycin to Zosyn for treatment of aspiration pneumonia. He was without respiratory symptoms such as cough and maintained home O2 requirement of 2L O2 via NC during hospitalization. Repeat CXR 09/20 demonstrated worsening airspace disease/ effusions despite Zosyn treatment; this was determined to be secondary to IV hydration prior to dialysis rather than worsening of respiratory function. 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 Patient was deemed stable for discharge 09/22; he was transitioned after 7 days Zosyn to oral Augmentin. Dialysis per patient's usual schedule was continued during hospitalization; his blood glucoses were maintained without the need for his prior Levemir insulin. Patient's left lower extremity wound was also treated by wound care during hospitalization. His chronic medications were continued. Patient will have GI, PCP, and Nephrology follow-up after discharge and will obtain repeat CXR in 1 month. - Time Spent with Patient Total time spent providing and/or coordinating discharge services: - Quality: VTE Deep Vein Thrombosis/Pulmonary Embolism Present on Admission: No Exam Vital signs: T 97.9 HR 85 RR 18 BP 102/59 O2 sat 98% Narrative: Gen: No acute distress Skin: Left distal lower extremity wrapped; mild pain to palpation HEENT: Eyes: EOM grossly I. Cardiovascular: Regular rate and rhythm; normal peripheral perfusion grossly Respiratory: Lungs CTAB, decreased breath sounds; normal rate Abdomen: Soft, nondistended, nontender Musculoskeletal: Patient with some generalized extremity atrophy and left upper extremity contracture. Neuro/Psych: Awake/alert; more interactive than on prior exam Results Procedures completed during hospitalization: EGD 09/19 Barium swallow 09/16 Completed studies during hospitalization: Pending at discharge 09/19/17 14:57 Surgical [PTH] Routine - Impressions ITS Impressions Abdomen/Pelvis CT 09/14/17 15:13 CONCLUSION: 1. Diffuse fatty infiltration of the liver. 2. Stable 2 cm left adrenal mass. 3. Atrophic kidneys bilaterally. No hydronephrosis. 4. Scattered diverticulosis of the sigmoid colon without inflammatory changes. 5. Stable moderate hiatal hernia the GE junction.. Videofluoroscopic Swallow 09/16/17 00:00 CONCLUSION: For a full detailed report, see report by the speech pathologist. Abdomen Ultrasound 09/17/17 00:00 CONCLUSION: 1. Cholelithiasis. No wall thickening or pericholecystic fluid. 2. Echogenic liver most characteristic of hepatic steatosis. Cholangiopancreatography MRI 09/17/17 00:00 CONCLUSION: 1. No dilation or filling defects seen in the biliary ducts or pancreatic duct. 2. No filling defects in the gallbladder. 3. Left adrenal adenoma. 4. Bilateral pleural effusions, right greater than left. Chest CT 09/20/17 00:00 CONCLUSION: 1. Low-density apparent extrinsic mass at the region the gastroesophageal junction measuring up to 5.6 x 4.3 cm. This may represent a duplication cyst or other mass lesion. 2. Bilateral pleural effusions and consolidation in both posterior lung bases. Chest X-Ray 09/20/17 07:00 CONCLUSION: Worsening bilateral airspace disease/effusions. Discharge Plan - Discharge Disposition Patient Disposition: 60 Rehab Inpatient - Discharge Condition Condition: Stable - Discharge Order Discharge Orders: Discharge Order (Routine); Ordered 09/22/17 Ordered By: Bradley Gonzalez - Discharge Details Anticipated Discharge Date: 09/22/17 - Physicians Team Primary Care Provider: Sharan Hill Attending Provider: Bradley Gonzalez Other Providers: Lizeth Bell MD ; Sarwat Rain MD
== END 2017-09-22 16:57 ==
LOC: NEPD 14:29 → NEDA 22:41 → N07 09-15 00:56
PROVIDERS: ADMIT Family Medicine; ATTEND Family Medicine
PROC: PANENDO (2017-09-19 13:39)
DX: K21.9 Gastro-esophageal reflux disease without esophagitis; N18.6 End stage renal disease; E27.9 Disorder of adrenal gland, unspecified; Z99.2 Dependence on renal dialysis; G82.50 Quadriplegia, unspecified; M81.0 Age-related osteoporosis without current pathological fracture; I69.354 Hemiplegia and hemiparesis following cerebral infarction affecting left non-dominant side; M24.542 Contracture, left hand; K59.00 Constipation, unspecified; I12.0 Hypertensive chronic kidney disease with stage 5 chronic kidney disease or end stage renal disease; E78.5 Hyperlipidemia, unspecified; R74.8 Abnormal levels of other serum enzymes; K20.9 Esophagitis, unspecified; E11.22 Type 2 diabetes mellitus with diabetic chronic kidney disease; E11.51 Type 2 diabetes mellitus with diabetic peripheral angiopathy without gangrene; D63.8 Anemia in other chronic diseases classified elsewhere; K76.0 Fatty (change of) liver, not elsewhere classified; Z79.4 Long term (current) use of insulin; E03.9 Hypothyroidism, unspecified; K80.20 Calculus of gallbladder without cholecystitis without obstruction; R13.12 Dysphagia, oropharyngeal phase; R53.1 Weakness; Z87.891 Personal history of nicotine dependence; N40.0 Benign prostatic hyperplasia without lower urinary tract symptoms; K44.9 Diaphragmatic hernia without obstruction or gangrene; J69.0 Pneumonitis due to inhalation of food and vomit

== ENCOUNTER 2017-12-10 09:18 | Observation (INO) ==
--- NOTE | 2017-12-10 09:34 | ED ---
HPI General Chief Complaint: Syncope Stated Complaint: syncope Time Seen by Provider: 12/10/17 09:25 Source: patient Mode of arrival: ambulatory Limitations: other (patient poor historian) History of Present Illness HPI narrative: 62-year-old male that was at dialysis and by report had 2 syncopal episodes. With second syncopal episode he was hypotensive. He only received an hour and 20 minutes of his 3-4-hour treatment. Patient states he is nauseous. Patient states he is not recall events. He denies other complaints but is a poor historian. Per report patient is normally alert and oriented x2 and on his baseline. Records were used to confirm history Related Data Home Medications Medication Instructions Recorded Confirmed ascorbic acid (vitamin C) [Vitamin 500 mg PO BID 09/14/17 11/18/17 C] bisacodyl 5 mg PO TID PRN 09/14/17 11/18/17 cinacalcet [Sensipar] 30 mg PO DAILY 09/14/17 11/18/17 escitalopram oxalate 10 mg PO DAILY 09/14/17 11/18/17 gabapentin 200 mg PO HS 09/14/17 11/18/17 hydroxyzine HCl 25 mg PO TID-QID PRN 09/14/17 11/18/17 insulin aspart U-100 [Novolog See Label Instructions .ROUTE 09/14/17 11/18/17 U-100 Insulin aspart] .COMPLEX lamotrigine [Lamictal] 200 mg PO HS 09/14/17 11/18/17 mirtazapine 15 mg PO HS 09/14/17 11/18/17 multivitamin 1 tab PO DAILY 09/14/17 11/18/17 omeprazole 20 mg PO DAILY 09/14/17 11/18/17 ondansetron HCl [Zofran] 8 mg PO Q6HR PRN 09/14/17 11/18/17 polyethylene glycol 3350 17 g PO DAILY 09/14/17 11/18/17 risperidone 0.5 mg PO BID 09/14/17 11/18/17 sevelamer carbonate [Renvela] 2,400 mg PO AC 09/14/17 11/18/17 tamsulosin [Flomax] 0.4 mg PO DAILY 09/14/17 11/18/17 tramadol 50 mg PO Q6H PRN 09/14/17 11/18/17 trazodone 150 mg PO HS 09/14/17 11/18/17 ferrous sulfate 325 mg PO TID 11/18/17 11/18/17 insulin glargine [Lantus U-100 10 unit SUB-Q DAILY 11/18/17 11/18/17 Insulin] lovastatin 20 mg PO DAILY 11/18/17 11/18/17 midodrine 10 mg PO TID 11/18/17 11/18/17 Previous Rx's Medication Instructions Recorded bisacodyl [Bisac-Evac] 10 mg HI DAILY PRN ea 09/22/17 lactulose 30 ml PO DAILY PRN ml 09/22/17 sennosides-docusate sodium [Senna 1 tab PO BID tab 09/22/17 Plus] Allergies Allergy/AdvReac Type Severity Reaction Status Date / Time methadone Allergy Severe Anaphylaxis Verified 09/14/17 14:45 acetaminophen Allergy Unknown Anaphylaxis Verified 09/14/17 14:45 propoxyphene Allergy Unknown Anaphylaxis Verified 09/14/17 14:45 Review of Systems ROS: all other systems reviewed are negative [facility] Medical History Medical History AV (arteriovenous fistula) (Acute) Anxiety (Acute) Benign prostatic hyperplasia (Acute) Bipolar disorder (Acute) Cerebral infarction (Acute) Chronic kidney disease (Acute) Contracture, left hand (Acute) Dysphagia (Acute) Dysphagia, oropharyngeal phase (Acute) End stage renal disease (Acute) Esophagitis (Acute) Gastroesophageal reflux disease (Acute) Heart failure (Acute) Hyperlipidemia (Acute) Hypothyroidism (Acute) Iron deficiency anemia (Acute) Mood disorder (Acute) Muscle weakness (Acute) Osteoporosis (Acute) Peripheral vascular disease (Acute) Renal dialysis status (Acute) Schizophrenia (Acute) Type 2 diabetes mellitus (Acute) Surgical History Surgical History H/O cardiac catheterization (Acute) Family History Family History Other No family history of cardiac disease Social History Social History Substance History: No History of Abuse Second Hand Smoke Exposure: No Smoking Status: Never smoker How Often Do You Have a Drink Containing Alcohol: Never Recent Travel in [facility] within the Last 8 Weeks: No Recent Out of Country Travel within the Last 8 Weeks: No Exam Narrative Exam Narrative: GENERAL: 62 y/o male in no apparent distress SKIN: Focused skin assessment warm/dry. HEAD: Atraumatic. Normocephalic. EYES: No scleral icterus. No injection or drainage. ENT: No nasal bleeding or discharge. Mucous membranes pink and moist. NECK: Trachea midline. CARDIOVASCULAR: Regular rate and rhythm. RESPIRATORY: No accessory muscle use. Clear to auscultation. Breath sounds equal bilaterally. GASTROINTESTINAL: Abdomen soft, non-tender, nondistended. MUSCULOSKELETAL: No obvious deformities. No clubbing. No cyanosis. NEUROLOGICAL: Awake, contracture on the left noted, moves extremities. Normal speech. Course Reevaluation(s) Reevaluation #1: Lab work without emergent process. Will admit to the hospital for further care, prior records show Braxton on he saw patient in terms of nephrology Consultations Consultation #1: dr wilson agrees to admit Initial Documented Vital Signs Temperature 97.9 F 12/10/17 09:27 Pulse Rate 87 12/10/17 09:27 Respiratory Rate 18 12/10/17 09:27 Blood Pressure 92/55 L 12/10/17 09:27 Pulse Oximetry 100 12/10/17 09:27 Last Documented Vital Signs Temperature 97.8 F 12/10/17 09:33 Pulse Rate 87 12/10/17 10:05 Respiratory Rate 16 12/10/17 10:05 Blood Pressure 91/57 L 12/10/17 10:05 Pulse Oximetry 94 L 12/10/17 10:05 Medical Decision Making [facility] Narrative Medical decision making narrative: Given comorbidities patient will need to be admitted for further care will initiate an syncope workup and monitor Medical Screen Exam Complete: Yes Emergency Medical Condition: Yes Differential Diagnosis Differential Diagnosis: Anemia, electrolyte abnormality, vasovagal, cardiac Lab Data Lab results reviewed: Yes I reviewed the patient's lab results. Result diagrams: 12/10/17 09:40 12/10/17 09:40 Lab Results 12/10/17 12/10/17 12/10/17 Range/Units 09:40 09:40 09:40 WBC 6.7 (4.0-11.0) th/mm3 RBC 4.01 L (4.50-5.90) mil/mm3 Hgb 11.4 L (13.0-17.0) gm/dL Hct 34.9 L (39.0-51.0) % MCV 87.1 (80.0-100.0) fL MCH 28.3 (27.0-34.0) pg MCHC 32.5 (32.0-36.0) % RDW 17.4 H (11.6-17.2) % Plt Count 276 (150-450) th/mm3 MPV 8.1 (7.0-11.0) fL Neut % (Auto) 76.8 H (16.0-70.0) % Lymph % (Auto) 12.4 (9.0-44.0) % Gillespie % (Auto) 8.4 H (0.0-8.0) % Eos % (Auto) 0.8 (0.0-4.0) % Baso % (Auto) 1.6 (0.0-2.0) % Neut # (Auto) 5.1 (1.8-7.7) th/mm3 Lymph # (Auto) 0.8 L (1.0-4.8) th/mm3 Gillespie # (Auto) 0.6 (0.0-0.9) th/mm3 Eos # (Auto) 0.1 (0.0-0.4) th/mm3 Baso # (Auto) 0.1 (0.0-0.2) th/mm3 WBC Differential . Differential Comment Auto diff final PT 11.5 (9.8-11.6) sec INR 1.1 Ratio APTT 24.9 (24.3-30.1) sec Sodium 133 L (136-145) meq/L Potassium 4.3 (3.5-5.1) meq/L Chloride 98 (98-107) meq/L Carbon Dioxide 25.3 (21.0-32.0) meq/L Anion Gap 10 (5-15) meq/L BUN 33 H (7-18) mg/dL Creatinine 5.95 H (0.60-1.30) mg/dL Estimated GFR 12 L (>89) mL/min Random Glucose 159 H (74-106) mg/dL Calcium 8.5 (8.5-10.1) mg/dL Magnesium 2.5 (1.5-2.5) mg/dL Troponin I Less than 0.02 L (0.02-0.05) ng/mL B-Natriuretic Peptide (0-100) pg/mL 12/10/17 Range/Units 09:40 WBC (4.0-11.0) th/mm3 RBC (4.50-5.90) mil/mm3 Hgb (13.0-17.0) gm/dL Hct (39.0-51.0) % MCV (80.0-100.0) fL MCH (27.0-34.0) pg MCHC (32.0-36.0) % RDW (11.6-17.2) % Plt Count (150-450) th/mm3 MPV (7.0-11.0) fL Neut % (Auto) (16.0-70.0) % Lymph % (Auto) (9.0-44.0) % Gillespie % (Auto) (0.0-8.0) % Eos % (Auto) (0.0-4.0) % Baso % (Auto) (0.0-2.0) % Neut # (Auto) (1.8-7.7) th/mm3 Lymph # (Auto) (1.0-4.8) th/mm3 Gillespie # (Auto) (0.0-0.9) th/mm3 Eos # (Auto) (0.0-0.4) th/mm3 Baso # (Auto) (0.0-0.2) th/mm3 WBC Differential Differential Comment PT (9.8-11.6) sec INR Ratio APTT (24.3-30.1) sec Sodium (136-145) meq/L Potassium (3.5-5.1) meq/L Chloride (98-107) meq/L Carbon Dioxide (21.0-32.0) meq/L Anion Gap (5-15) meq/L BUN (7-18) mg/dL Creatinine (0.60-1.30) mg/dL Estimated GFR (>89) mL/min Random Glucose (74-106) mg/dL Calcium (8.5-10.1) mg/dL Magnesium (1.5-2.5) mg/dL Troponin I (0.02-0.05) ng/mL B-Natriuretic Peptide 15 (0-100) pg/mL Imaging Data Attestation: I personally reviewed and interpreted this imaging study as follows : Radiologist's impression: Chest X-Ray 12/10/17 09:27 CONCLUSION: Hypoinflation of the lungs with left nasal or airspace consolidation. Discharge Plan Discharge Disposition Patient Disposition: 30 Still Patient Discharge Details Diagnosis: Syncope Physicians Team ED Provider: Paulina Katz Primary Care Provider: Sharan Hill Attending Provider: Kecia Munoz Other Providers: Lizeth Bell Status ED Status: Admitted Observation Patient
[2017-12-10 09:49] LABS: Baso # (Auto) 0.1 th/mm3 (0.0-0.2); Baso % (Auto) 1.6 % (0.0-2.0); Eos # (Auto) 0.1 th/mm3 (0.0-0.4); Eos % (Auto) 0.8 % (0.0-4.0); Hematocrit 34.9 % (39.0-51.0); Hemoglobin 11.4 gm/dL (13.0-17.0); Lymph # (Auto) 0.8 th/mm3 (1.0-4.8); Lymph % (Auto) 12.4 % (9.0-44.0); Mean Corpuscular HGB Conc 32.5 % (32.0-36.0); Mean Corpuscular Hemoglobin 28.3 pg (27.0-34.0); Mean Corpuscular Volume 87.1 fL (80.0-100.0); Mean Platelet Volume 8.1 fL (7.0-11.0); Mono # (Auto) 0.6 th/mm3 (0.0-0.9); Mono % (Auto) 8.4 % (0.0-8.0); Neut # (Auto) 5.1 th/mm3 (1.8-7.7); Neut % (Auto) 76.8 % (16.0-70.0); Platelet Count 276 th/mm3 (150-450); Red Blood Count 4.01 mil/mm3 (4.50-5.90); Red Cell Distribution Width 17.4 % (11.6-17.2); White Blood Count 6.7 th/mm3 (4.0-11.0)
--- NOTE | 2017-12-10 09:53 | XR ---
EXAM DATE: 12/10/2017 9:27 AM EDT AGE/SEX: 62 years / Male INDICATIONS: Syncope. CLINICAL DATA: This is the patient's initial encounter. Patient reports that signs and symptoms have been present for 1 day and indicates a pain score of 0/10. MEDICAL/SURGICAL HISTORY: . Hypothyroidism. Diabetes mellitus type II. Peripheral vascular dise ase. BPH. Cerebral infarction. CK. Dysphagia. GERD. Schizophrenia. Anemia. Heart failure. End stage r enal disease. . Cardiac catheterization. COMPARISON: [facility] [place] 1[place], 11/18/2017. . FINDINGS: Single semiupright portable view of the chest demonstrate significant hypoinflation. There is left ba silar airspace opacities consistent with atelectasis or consolidation. Heart size is grossly normal g iven the degree of hypoinflation. Osseous structures are unremarkable. CONCLUSION: Hypoinflation of the lungs with left nasal or airspace consolidation. Electronically signed by: Cathy Mix MD 12/10/2017 9:52 AM EDT
[2017-12-10 09:57] LABS: Activated Partial Thrombo Time 24.9 sec (24.3-30.1); INR 1.1 Ratio; Prothrombin Time 11.5 sec (9.8-11.6)
[2017-12-10 10:09] LABS: Anion Gap 10 meq/L (5-15); Blood Urea Nitrogen 33 mg/dL (7-18); Calcium 8.5 mg/dL (8.5-10.1); Carbon Dioxide 25.3 meq/L (21.0-32.0); Chloride 98 meq/L (98-107); Glomerular Filtration Rate 12 mL/min (>89); Glucose,Random 159 mg/dL (74-106); Magnesium 2.5 mg/dL (1.5-2.5); Potassium 4.3 meq/L (3.5-5.1); Sodium 133 meq/L (136-145)
[2017-12-10] MEDS ORDERED: Dextrose 50% in Water 50 ML Vial IV.PUSH PRN (11:35)
--- NOTE | 2017-12-10 12:18 | P.HPIM ---
History of Present Illness Primary Care Physician: Sharan Hill MD Chief Complaint: nausea History of Present Illness: patient is a 62 y/o male with history of ESRD-on HD, diabetes mellitus,CVA, schizophrenia who was brought to ER after had a couple of syncope episodes. patient is not a good historian and most of the information was obtained from the ER. he says that he had some nausea earlier but he doesn't recall if he passed out.he couldn't finish his HD today. he denies any chest pain,abdominal pain, sob. Review of Systems All other systems reviewed negative except as stated in HPI PMFSH - History History Provided By: Patient, Medical Record - Medical History Medical History: Medical History (Last Reviewed 12/10/17 @ 09:31 by Paulina Katz MD) AV (arteriovenous fistula) Anxiety Benign prostatic hyperplasia Bipolar disorder Cerebral infarction Chronic kidney disease Contracture, left hand Dysphagia Dysphagia, oropharyngeal phase End stage renal disease Esophagitis Gastroesophageal reflux disease Heart failure Hyperlipidemia Hypothyroidism Iron deficiency anemia Mood disorder Muscle weakness Osteoporosis Peripheral vascular disease Renal dialysis status Schizophrenia Type 2 diabetes mellitus - Surgical History Surgical History: Surgical History (Last Reviewed 12/10/17 @ 09:31 by Paulina Katz MD) H/O cardiac catheterization - Family History Family History: Family History (Last Reviewed 12/10/17 @ 09:31 by Paulina Katz MD) Other No family history of cardiac disease - Tobacco History Second Hand Smoke Exposure: No Tobacco Use In Past 30 Days: No Smoking Status: Never smoker - Alcohol History How Often Do You Have a Drink Containing Alcohol: Never - Substance Use History Substance History: No History of Abuse - Travel History Recent Travel in the [place] Within the Last 8 Weeks: No Recent Travel Out of the Country Within the Last 8 Weeks: No - Immunization History Tetanus Immunization: Unsure Medications and Allergies Active Medications: Active Medications Dextrose (D50w Vial) 50 ml IV.PUSH UNSCH PRN PRN Reason: PER HYPOGLYCEMIA PROTOCOL Glucagon (Glucagon Inj) 1 mg OTHER PRN PRN PRN Reason: for Hypoglycemia Protocol Insulin Aspart (Novolog Insulin Correctional Sugar Inj) 0 unit SQ ACHS FLAQUITA; Protocol Allergies Allergy/AdvReac Type Severity Reaction Status Date / Time methadone Allergy Severe Anaphylaxis Verified 09/14/17 14:45 acetaminophen Allergy Unknown Anaphylaxis Verified 09/14/17 14:45 propoxyphene Allergy Unknown Anaphylaxis Verified 09/14/17 14:45 Home Medications Medication Instructions Recorded Confirmed Type ascorbic acid (vitamin C) [Vitamin 500 mg PO BID 09/14/17 11/18/17 History C] bisacodyl 5 mg PO TID PRN 09/14/17 11/18/17 History cinacalcet [Sensipar] 30 mg PO DAILY 09/14/17 11/18/17 History escitalopram oxalate 10 mg PO DAILY 09/14/17 11/18/17 History gabapentin 200 mg PO HS 09/14/17 11/18/17 History hydroxyzine HCl 25 mg PO TID-QID PRN 09/14/17 11/18/17 History insulin aspart U-100 [Novolog See Label Instructions .ROUTE 09/14/17 11/18/17 History U-100 Insulin aspart] .COMPLEX lamotrigine [Lamictal] 200 mg PO HS 09/14/17 11/18/17 History mirtazapine 15 mg PO HS 09/14/17 11/18/17 History multivitamin 1 tab PO DAILY 09/14/17 11/18/17 History omeprazole 20 mg PO DAILY 09/14/17 11/18/17 History ondansetron HCl [Zofran] 8 mg PO Q6HR PRN 09/14/17 11/18/17 History polyethylene glycol 3350 17 g PO DAILY 09/14/17 11/18/17 History risperidone 0.5 mg PO BID 09/14/17 11/18/17 History sevelamer carbonate [Renvela] 2,400 mg PO AC 09/14/17 11/18/17 History tamsulosin [Flomax] 0.4 mg PO DAILY 09/14/17 11/18/17 History tramadol 50 mg PO Q6H PRN 09/14/17 11/18/17 History trazodone 150 mg PO HS 09/14/17 11/18/17 History ferrous sulfate 325 mg PO TID 11/18/17 11/18/17 History insulin glargine [Lantus U-100 10 unit SUB-Q DAILY 11/18/17 11/18/17 History Insulin] lovastatin 20 mg PO DAILY 11/18/17 11/18/17 History midodrine 10 mg PO TID 11/18/17 11/18/17 History Exam Vital signs: Vital Signs 12/10/17 09:27 10/13/18 09:33 12/10/17 10:05 Temperature 97.9 F 97.8 F Pulse Rate 87 91 H 87 Respiratory Rate 18 18 16 Blood Pressure 92/55 L 92/55 L 91/57 L Pulse Oximetry 100 98 94 L Intake & Output 12/09/17 12/10/17 12/10/17 18:59 06:59 18:59 Weight 77.111 kg - Constitutional no acute distress - Routine HEENT Exam Eye: Present: PERRL - Routine Neck Exam Present: supple - Routine Respiratory Exam Present: CTA bilaterally - Routine Cardiovascular Exam Present: RRR - Routine Abdominal Exam Present: soft - Routine Extremities Exam Comments: no pedal edema. - Routine Neurological Exam Present: alert, oriented X3 Results - Labs CBC & Chem 7: 12/10/17 09:40 12/10/17 09:40 Labs: Short CBC 12/10/17 Range/Units 09:40 WBC 6.7 (4.0-11.0) th/mm3 Hgb 11.4 L (13.0-17.0) gm/dL Hct 34.9 L (39.0-51.0) % Plt Count 276 (150-450) th/mm3 BMP 12/10/17 09:40 Sodium 133 L Potassium 4.3 Chloride 98 Carbon Dioxide 25.3 BUN 33 H Creatinine 5.95 H Calcium 8.5 Cardiac Enzymes 12/10/17 Range/Units 09:40 Troponin I Less than 0.02 L (0.02-0.05) ng/mL - Imaging Impressions Chest X-Ray 12/10/17 09:27 CONCLUSION: Hypoinflation of the lungs with left nasal or airspace consolidation. Caprini VTE Risk Assessment Caprini VTE Risk Assessment: Moderate/High Risk (score >= 2) Caprini Risk Assessment Model: Point Value = 1 Point Value = 2 Point Value = 3 Point Value = 5 Age 41-60 Minor surgery BMI > 25 kg/m2 Swollen legs Varicose veins or History of unexplained or recurrent spontaneous Oral contraceptives or hormone replacement Sepsis (< 1 month) Serious lung disease, including pneumonia (< 1 month) Abnormal pulmonary function Acute myocardial infarction Congestive heart failure (< 1 month) History of inflammatory bowel disease Medical patient at bed rest Age 61-74 Arthroscopic surgery Major open surgery (> 45 min) Laparoscopic surgery (> 45 min) Malignancy Confined to bed (> 72 hours) Immobilizing plaster cast Central venous access Age >= 75 History of VTE Family history of VTE Factor V Leiden Prothrombin 24393L Lupus anticoagulant Anticardiolipin antibodies Elevated serum homocysteine Heparin-induced thrombocytopenia Other congenital or acquired thrombophilia Stroke (< 1 month) Elective arthroplasty Hip, pelvis, or leg fracture Acute spinal cord injury (< 1 month) Prophylaxis Regimen: Total Risk Factor Score Risk Level Prophylaxis Regimen 0-1 Low Early ambulation 2 Moderate Order ONE of the following: *Sequential Compression Device (SCD) *Heparin 5000 units SQ BID 3-4 Higher Order ONE of the following medications: *Heparin 5000 units SQ TID *Enoxaparin/Lovenox 40 mg SQ daily (WT < 150 kg, CrCl > 30 mL/min) *Enoxaparin/Lovenox 30 mg SQ daily (WT < 150 kg, CrCl > 10-29 mL/min) *Enoxaparin/Lovenox 30 mg SQ BID (WT < 150 kg, CrCl > 30 mL/min) AND/OR *Sequential Compression Device (SCD) 5 or more Highest Order ONE of the following medications: *Heparin 5000 units SQ TID (Preferred with Epidurals) *Enoxaparin/Lovenox 40 mg SQ daily (WT < 150 kg, CrCl > 30 mL/min) *Enoxaparin/Lovenox 30 mg SQ daily (WT < 150 kg, CrCl > 10-29 mL/min) *Enoxaparin/Lovenox 30 mg SQ BID (WT < 150 kg, CrCl > 30 mL/min) AND *Sequential Compression Device (SCD) Assessment and Plan - Plan A/P - syncope with reported hypotension continue to monitor on telemetry with close monitoring of BP- -ESRD-on HD; couldn't finish his HD today; will consult Nephrology -diabetes mellitus; start on accu-check with SSI- resume home insulin regimen when verified. -schizophrenia; will verify and resume the home meds. -history of CVA; will consult PT. -DVT prophylaxis with subq Heparin Discussed Condition With: ER physician and the patient.
--- NOTE | 2017-12-10 14:51 | US ---
EXAM DATE: 12/10/2017 12:00 AM EDT AGE/SEX: 62 years / Male INDICATIONS: Syncope. CLINICAL DATA: This is the patient's subsequent encounter. Patient reports that signs and symptoms h ave been present for 1 day and indicates a pain score of 0/10. MEDICAL/SURGICAL HISTORY: . AV fistula. BPH. Bipolar. Cerebral infarct. CKD. Left hand con tracture. Dysphagia. ESRD. Esophagitis. GERD. Heart failure. Hypothyroid. PVD. Dialysis. Schi zophrenia. Diabetic. . Cardiac catheterization. [place] [facility] [place]. . VELOCITY PARAMETERS: ICA/CCA Ratio: Right 0.7 , Left 0.5 ICA: Right 56 cm/sec, Left 44 cm/sec CCA: Right 87 cm/sec, Left 90 cm/sec ECA: Right 94 cm/sec, Left 78 cm/sec Vertebral: Right 58 cm/sec antegrade, Left 61 cm/sec antegrade FINDINGS: Right Carotid: No significant plaque is visualized.The waveforms are within normal limits. Left Carotid: Mild arteriosclerotic plaque is visualized. The waveforms are within normal limits. Other: None. CONCLUSION: 1. Right Internal Carotid Artery: No significant stenosis or atherosclerotic plaque is visualized. 2. Left Internal Carotid Artery: Findings indicate <50% stenosis. Electronically signed by: Pako Multani MD 12/10/2017 2:49 PM EDT
[2017-12-10] MEDS: Insulin NovoLOG Aspart Correctional Sugar Inj SQ SCH ×3 (17:53→21:46)
[2017-12-10] MEDS: Heparin - SQ 10,000 UNITS/ML Vial SQ SCH (21:28)
[2017-12-11] MEDS: Heparin - SQ 10,000 UNITS/ML Vial SQ SCH ×2 (08:11→22:11)
--- NOTE | 2017-12-11 09:25 | P.PN ---
Subjective Interval history: Pt seen and examined for f/u syncope. Carotid U/S with no significant stenosis or plaque visualized LESLIE and less than 50% stenosis in the LICA. Pt a poor historian but can tell me that his toes hurt which is chronic for him secondary to diabetic neuropathy. He denies CP or SOB. He doesn't know why he is in the hospital. He doesn't recall passing out. He reports he lives in [facility]. He is being worked up for a liver mass and right adrenal mass as an outpatient. Physical Exam Vital signs: Vital Signs 12/10/17 09:27 12/10/17 09:33 12/10/17 10:05 Temperature 97.9 F 97.8 F Pulse Rate 87 91 H 87 Respiratory Rate 18 18 16 Blood Pressure 92/55 L 92/55 L 91/57 L Pulse Oximetry 100 98 94 L 12/10/17 16:00 12/10/17 20:00 12/10/17 23:40 Temperature 98.4 F 98.0 F 98.3 F Pulse Rate 89 89 84 Respiratory Rate 16 18 18 Blood Pressure 93/57 L 111/55 L 127/60 Pulse Oximetry 95 98 97 12/11/17 03:33 12/11/17 08:00 Temperature 98.4 F 98.4 F Pulse Rate 85 88 Respiratory Rate 16 14 Blood Pressure 129/74 126/75 Pulse Oximetry 98 100 Intake & Output 12/10/17 12/11/17 12/11/17 18:59 06:59 18:59 Weight 77.111 kg Other: Date of Last Bowel Movement 12/11/17 Narrative: GENERAL: Chronically-ill appearing AA male resting in bed in [facility]. SKIN: Warm and dry. HEENT: AT/NC. Pupils equal and round. Strabismus. MMM. HEART: RRR no m/r/g. LUNGS: CTAB without wheezes or crackles. ABDOMEN: +BS, soft, NT, ND. EXTREMITIES: No LE edema. Xerosis of LE. NEURO: Awake and alert. Left-sided hemiparesis, able to move LUE weakly but cannot move L hand which is contracted. Cannot move LLE. PSYCH: Blunted affect. Results - Labs CBC & Chem 7: 12/10/17 09:40 12/10/17 09:40 Laboratory Results - last 24 hr 12/10/17 12/10/1718 09:40 09:40 09:40 WBC 6.7 RBC 4.01 L Hgb 11.4 L Hct 34.9 L MCV 87.1 MCH 28.3 MCHC 32.5 RDW 17.4 H Plt Count 276 MPV 8.1 Neut % (Auto) 76.8 H Lymph % (Auto) 12.4 [place] % (Auto) 8.4 H Eos % (Auto) 0.8 Baso % (Auto) 1.6 Neut # (Auto) 5.1 Lymph # (Auto) 0.8 L Oxford # (Auto) 0.6 Eos # (Auto) 0.1 Baso # (Auto) 0.1 WBC Differential . Differential Comment Auto diff final PT 11.5 INR 1.1 APTT 24.9 Sodium 133 L Potassium 4.3 Chloride 98 Carbon Dioxide 25.3 Anion Gap 10 BUN 33 H Creatinine 5.95 H Estimated GFR 12 L POC Glucose Random Glucose 159 H Calcium 8.5 Magnesium 2.5 Troponin I Less than 0.02 L B-Natriuretic Peptide 12/10/17 12/10/17 12/10/17 09:40 17:07 21:32 WBC RBC Hgb Hct MCV MCH MCHC RDW Plt Count MPV Neut % (Auto) Lymph % (Auto) Oxford % (Auto) Eos % (Auto) Baso % (Auto) Neut # (Auto) Lymph # (Auto) Oxford # (Auto) Eos # (Auto) Baso # (Auto) WBC Differential Differential Comment PT INR APTT Sodium Potassium Chloride Carbon Dioxide Anion Gap BUN Creatinine Estimated GFR POC Glucose 285 H 193 H Random Glucose Calcium Magnesium Troponin I B-Natriuretic Peptide 15 12/11/17 08:06 WBC RBC Hgb Hct MCV MCH MCHC RDW Plt Count MPV Neut % (Auto) Lymph % (Auto) Oxford % (Auto) Eos % (Auto) Baso % (Auto) Neut # (Auto) Lymph # (Auto) Oxford # (Auto) Eos # (Auto) Baso # (Auto) WBC Differential Differential Comment PT INR APTT Sodium Potassium Chloride Carbon Dioxide Anion Gap BUN Creatinine Estimated GFR POC Glucose 215 H Random Glucose Calcium Magnesium Troponin I B-Natriuretic Peptide - Imaging Impressions Carotid Doppler Study 12/10/17 00:00 CONCLUSION: 1. Right Internal Carotid Artery: No significant stenosis or atherosclerotic plaque is visualized. 2. Left Internal Carotid Artery: Findings indicate <50% stenosis. Chest X-Ray 12/10/17 09:27 CONCLUSION: Hypoinflation of the lungs with left nasal or airspace consolidation. Assessment and Plan - Plan 62 year old AA male with history of ESRD on HD, IDDM, CVA with left-sided hemiparesis, chronic debility, and schizophrenia admitted for evaluation of syncope x 2 during dialysis. 1. Syncope - Etiology possibly secondary to hypotension vs. valvular pathology, neurogenic , vasovagal, etc. - BPs 90s/50s on admission, HR 80s - Carotid U/S negative - Orthostatics difficult to obtain secondary to patient's bed-bound status but will attempt supine and semi-Fowlers - EKG with borderline QTc, sinus rhythm, borderline LAD - Troponin negative - No significant electrolyte abnormalities - Obtain 2D echo - Apparently on midodrine at home but not sure of dosing, will restart on 10 mg TID and can adjust once home dosing verified 2. ESRD on HD - Creatinine 5.95, BUN 33, potassium 4.3 on admission - Consult nephrology to coordinate dialysis 3. DM - Place on SSI - Start Levemir 5 units BID - Need verification of home insulin 4. Schizophrenia - Need verification of home meds 5. H/o of CVA with left-sided hemiparesis - PT consulted - Not on an antiplatelet per med rec but also not updated, will need verification DVT prophylaxis: heparin Discharge Planning: Anticipate D/C tomorrow if patient remains stable
[2017-12-11] MEDS: Insulin NovoLOG Aspart Correctional Sugar Inj SQ SCH ×4 (09:55→22:34)
[2017-12-11 10:55] LABS: Calcium 9.2 mg/dL (8.5-10.1); Carbon Dioxide 26.4 meq/L (21.0-32.0); Potassium 4.5 meq/L (3.5-5.1)
--- NOTE | 2017-12-11 10:58 | P.PNNP ---
Subjective Interval history: Patient is alert, BP is stable, on lower side, remain afebrile. Physical Exam Vital signs: Vital Signs 12/10/17 16:00 12/10/17 20:00 12/10/17 23:40 Temperature 98.4 F 98.0 F 98.3 F Pulse Rate 89 89 84 Respiratory Rate 16 18 18 Blood Pressure 93/57 L 111/55 L 127/60 Pulse Oximetry 95 98 97 12/11/17 03:33 12/11/17 08:00 Temperature 98.4 F 98.4 F Pulse Rate 85 88 Respiratory Rate 16 14 Blood Pressure 129/74 126/75 Pulse Oximetry 98 100 Intake & Output 12/10/17 12/11/17 12/11/17 18:59 06:59 18:59 Weight 77.111 kg Other: Date of Last Bowel Movement 12/11/17 Narrative: GENERAL: Elderly male patient in NAD. SKIN: Warm and dry. No rash. HEENT: Normocephalic. Atraumatic. Pupils equal and round. Mucous membranes pink and moist. NECK: Supple. Trachea midline. CARDIOVASCULAR: Regular rate and rhythm. No murmur appreciated. RESPIRATORY: No accessory muscle use. Clear to auscultation. Breath sounds equal bilaterally. GASTROINTESTINAL: Abdomen soft, non-tender, nondistended. Normoactive bowel sounds x4. MUSCULOSKELETAL: No obvious deformities. Extremities without clubbing, cyanosis , or edema. NEUROLOGICAL: Awake and alert. Left sided hemiparesis with contracture of LUE. Moving RUE/RLE spontaneously. Normal speech. Assessment and Plan - Assessment (1) End stage renal disease on dialysis Code(s): N18.6 - End stage renal disease; Z99.2 - Dependence on renal dialysis Status: Acute Plan: End stage renal disease on hemodialysis, Tuesday, , and Tuesday Plan Avoid IVF administration and gadolinium. Epogen with dialysis Continue midodrine and Sensipar Hemodialysis was done yesterday and terminated early. No urgent need for HD today. Will do HD tomorrow and . (2) Syncope Code(s): R55 - Syncope and collapse Status: Acute Qualifiers: Syncope type: unspecified Qualified Code(s): R55 - Syncope and collapse (3) Diabetes Code(s): E11.9 - Type 2 diabetes mellitus without complications Status: Chronic Qualifiers: Diabetes mellitus type: type 2 Chronic kidney disease stage: on chronic dialysis
[2017-12-11 13:40] LABS: Hematocrit 37.8 % (39.0-51.0); Hemoglobin 11.7 gm/dL (13.0-17.0); Mean Corpuscular Hemoglobin 27.8 pg (27.0-34.0); Mean Corpuscular Volume 89.5 fL (80.0-100.0); Mean Platelet Volume 8.4 fL (7.0-11.0); Platelet Count 274 th/mm3 (150-450); Red Blood Count 4.22 mil/mm3 (4.50-5.90); Red Cell Distribution Width 17.5 % (11.6-17.2); White Blood Count 5.1 th/mm3 (4.0-11.0)
[2017-12-11] MEDS: Morphine Sulfate Inj 2 MG/ML Vial IV.PUSH PRN ×2 (14:45→19:38)
[2017-12-11] MEDS ORDERED: Benzonatate 100 MG Capsule PO PRN (15:03)
--- NOTE | 2017-12-11 15:19 | ECG ---
Date Performed: 12/10/2017 Time Performed: 09:54:39 PTAGE: 62 years EKG: Sinus rhythm POSSIBLE LEFT ATRIAL ENLARGEMENT BORDERLINE LEFT AXIS DEVIATION POSSIBLE LEFT VENTRICULAR HYPERTROPH Y NONSPECIFIC T-WAVE ABNORMALITY ABNORMAL ECG Compared to PREVIOUS TRACING , QRS voltage somewhat greater and the ST-T changes are new. PREVIOUS TR ACIN09/21/2017 18.11 DOCTOR: Jonatan Alfonso Interpretating Date/Time 12/11/2017 15:18:03
[2017-12-11] MEDS: Insulin Detemir Inj 1,000 UNIT/10 ML Vial SQ SCH (22:35)
[2017-12-12] MEDS: Morphine Sulfate Inj 2 MG/ML Vial IV.PUSH PRN ×4 (00:20→23:01)
--- NOTE | 2017-12-12 08:32 | MB ---
cc: Lizeth Bell MD DATE: 12/10/2017 REASON FOR CONSULTATION: End-stage renal disease, on hemodialysis for management. HISTORY OF PRESENT ILLNESS: This is a 62-year-old man known to me from before with past medical history of diabetes mellitus, cerebrovascular accident, peripheral vascular disease, schizophrenia, chronic anemia, chronic hypotension, hypothyroidism, end-stage renal disease on hemodialysis 3 times per week, Tuesday, and Tuesday, was referred to the ER from the dialysis Unit because of passing out twice during dialysis. I was called to see the patient for the management of dialysis. The patient has been on hemodialysis, Tuesday, and Tuesday. He has been following with me and usually he runs low blood pressure. Today, he came, blood pressure was on the higher side before dialysis and during dialysis dropped to some extent. The lowest recorded was systolic 81. The patient lost his consciousness for about a minute or less twice and it was not associated exactly with low blood pressure. His ultrafiltration was stopped. He received dialysis only for 1 hr and 30 min.. He stopped because of this recurrent episode and he was sent to the emergency department. The patient denies any headache, dizziness or blurring. He does not remember the episode before. He denies any shortness of breath. No chest pain. No palpitation. PAST MEDICAL HISTORY: Diabetes mellitus, schizophrenia, chronic hypertension, endstage renal disease on hemodialysis, peripheral vascular disease. PAST SURGICAL HISTORY: History of CAB graft surgery, multiple stenting and angioplasty for peripheral vascular disease, history of cardiac catheterization. REVIEW OF SYSTEMS: Denies shortness of breath or chest pain. No abdominal pain. No nausea, no diarrhea, no headache , no dizziness. SOCIAL HISTORY: The patient has history of stroke. There is no history of smoking or alcoholism. FAMILY HISTORY: Noncontributory. ALLERGIES: 1. METHADONE. 2. ACETAMINOPHEN. 2. PROPOXYPHENE. MEDICATIONS: Currently, he is on the following medications: Insulin Aspart, Zofran and heparin subcutaneously. PHYSICAL EXAMINATION: GENERAL: He is awake and alert. He is not in acute distress. VITAL SIGNS: Blood pressure is 97/51, temperature is 97.8, oxygen saturation 94 to 98%. LUNGS: Bilateral good air entry with occasional wheezing. HEART: S1, S2. Regular rhythm. ABDOMEN: Distended, soft, flat. There is no tenderness. Bowel sounds positive. EXTREMITIES: He has no edema in the leg. He has some muscle wasting in both legs. LABORATORY DATA: WBC count is 6.7, hemoglobin is 11.4, platelet count of 276, neutrophils 76.8%. INR is 1.1. Sodium 133, potassium 4.3, chloride 98, bicarbonate 25.3, BUN 33, creatinine 5.9, glucose 159. Troponin less than 0.02. BNP is 15, calcium is 8.5, magnesium is 2.5. IMAGING STUDIES: The patient has carotid Doppler done, which shows that he has no stenosis in the right side and in the left carotid artery, he has less than 50% stenosis. Chest x-ray was done, which shows hypoinflation of the lungs with left nasal airspace consolidation. ASSESSMENT AND PLAN: 1. Syncopal episode during dialysis. 2. Chronic hypotension. 3. Hemodialysis. 4. Diabetes mellitus. 5. Chronic anemia. 6. History of schizophrenia. 7. Hypothyroidism. The patient has chronic hypotension during dialysis and today's blood pressure was initially not low, but later on during dialysis, it did, and there was not much ultrafiltration with dialysis. He received 1-1/2 hours of dialysis. Blood pressure _in the systolic of 90 ,potassium is normal. He is not on fluid overloaded status. He needs observation , LOC could be related to hypotension, which is not documented. He is admitted for observation and further workup and will follow from the nephrology standpoint and follow the labs tomorrow in case if his potassium increases or he has fluid overload, then probably HD for Tuesday. Thank you for the consultation. I will follow. MD LITA Green/duane/griffin , 03:22 PM , 03:34 PM SIN
[2017-12-12] MEDS ORDERED: Heparin 10,000 UNITS/10 ML Vial (for IV use) OTHER PRN ×2 (09:13)
[2017-12-12] MEDS ORDERED: Sod Chloride 0.9% Inj 1,000 ML IV.CONT PRN (09:13)
[2017-12-12] MEDS ORDERED: Sod Chloride 0.9% Inj 1,000 ML OTHER PRN ×2 (09:13)
[2017-12-12] MEDS ORDERED: Albumin Human 25% Inj 100 ML IV.SIG PRN (09:13)
[2017-12-12] MEDS ORDERED: Acetaminophen 325 MG Tablet PO PRN (09:13)
[2017-12-12] MEDS: Insulin Detemir Inj 1,000 UNIT/10 ML Vial SQ SCH ×2 (10:04→23:02)
[2017-12-12] MEDS: Insulin NovoLOG Aspart Correctional Sugar Inj SQ SCH ×4 (10:05→23:02)
[2017-12-12] MEDS: Heparin - SQ 10,000 UNITS/ML Vial SQ SCH ×2 (10:10→21:58)
--- NOTE | 2017-12-12 11:05 | P.PNNP ---
Subjective Interval history: Resting comfortably. Plan for hemodialysis today. Denies any shortness of breath, chest pain, nausea or vomiting. <Khalida Laura - Last Filed: 12/12/17 15:05> Physical Exam Vital signs: Vital Signs 12/11/17 12:00 12/11/17 16:00 12/11/17 21:59 Temperature 99.0 F 98.7 F 97.6 F Pulse Rate 95 H 93 H 81 Respiratory Rate 14 14 19 Blood Pressure 141/67 H 99/54 L 117/65 Pulse Oximetry 95 94 L 97 12/12/17 00:00 12/12/17 03:46 12/12/17 07:35 Temperature 97.7 F 97.7 F 98.7 F Pulse Rate 80 75 79 Respiratory Rate 17 19 16 Blood Pressure 100/64 125/63 97/51 L Pulse Oximetry 92 L 93 L 95 Intake & Output 12/11/17 12/12/17 12/12/17 18:59 06:59 18:59 Other: # Voids 0 Date of Last Bowel Movement 12/11/17 Narrative: GENERAL: Alert , NAD SKIN: Warm and dry. NECK: Supple, trachea midline. No JVD. CARDIOVASCULAR: Regular rate and rhythm without murmurs, gallops, or rubs. RESPIRATORY: Breath sounds diminished, equal bilaterally. No accessory muscle use. GASTROINTESTINAL: Abdomen soft, large, positive bowel sounds MUSCULOSKELETAL: No cyanosis, Left sided hemiparesis, left hand contracted. <Khalida Laura - Last Filed: 12/12/17 15:05> Assessment and Plan - Assessment (1) End stage renal disease on dialysis Code(s): N18.6 - End stage renal disease; Z99.2 - Dependence on renal dialysis Status: Acute Plan: End stage renal disease on hemodialysis, Tuesday, , and Tuesday Plan Avoid IVF administration and gadolinium. Epogen with dialysis Continue midodrine and Sensipar Plan for hemodialysis today will remove fluid as tolerated Hemodialysis tomorrow to be placed on regular scheduled days. Cleared per Nephrology for discharge. <Khalida Laura - Last Filed: 12/12/17 15:05> - Assessment (1) End stage renal disease on dialysis Code(s): N18.6 - End stage renal disease; Z99.2 - Dependence on renal dialysis Status: Acute Plan: Patient seen and examined, agree with above. HD will be in AM. BP is stable. (2) Syncope Code(s): R55 - Syncope and collapse Status: Acute Qualifiers: Syncope type: unspecified Qualified Code(s): R55 - Syncope and collapse (3) Diabetes Code(s): E11.9 - Type 2 diabetes mellitus without complications Status: Chronic Qualifiers: Diabetes mellitus type: type 2 Chronic kidney disease stage: on chronic dialysis <Lizeth Bell - Last Filed: 12/15/17 21:36>
[2017-12-12 11:33] LABS: Calcium 9.8 mg/dL (8.5-10.1); Carbon Dioxide 27.9 meq/L (21.0-32.0); Potassium 3.8 meq/L (3.5-5.1)
--- NOTE | 2017-12-12 11:49 | P.PN ---
Subjective Interval history: Pt seen and examined. No complaints. Creatinine up to 10.29 this morning. Going for dialysis today. Denies CP, SOB, abdominal pain, N/V. Tolerating PO. Physical Exam Vital signs: Vital Signs 12/11/17 12:00 12/11/17 16:00 12/11/17 21:59 Temperature 99.0 F 98.7 F 97.6 F Pulse Rate 95 H 93 H 81 Respiratory Rate 14 14 19 Blood Pressure 141/67 H 99/54 L 117/65 Pulse Oximetry 95 94 L 97 12/12/17 00:00 12/12/17 03:46 12/12/17 07:35 Temperature 97.7 F 97.7 F 98.7 F Pulse Rate 80 75 79 Respiratory Rate 17 19 16 Blood Pressure 100/64 125/63 97/51 L Pulse Oximetry 92 L 93 L 95 Intake & Output 12/11/17 12/12/17 12/12/17 18:59 06:59 18:59 Other: # Voids 0 Date of Last Bowel Movement 12/11/17 Narrative: GENERAL: Chronically-ill appearing AA male resting in bed in NAD. SKIN: Warm and dry. HEENT: AT/NC. Pupils equal and round. Strabismus. MMM. HEART: RRR no m/r/g. LUNGS: CTAB without wheezes or crackles. ABDOMEN: +BS, soft, NT, ND. EXTREMITIES: No LE edema. Xerosis of LE. NEURO: Awake and alert. Left-sided hemiparesis, able to move LUE weakly but cannot move L hand which is contracted. Cannot move LLE. PSYCH: Blunted affect. Results - Labs CBC & Chem 7: 12/11/17 13:00 12/12/17 10:20 Laboratory Results - last 24 hr 12/11/17 12/11/17 12/11/17 12:42 13:00 17:19 WBC 5.1 RBC 4.22 L Hgb 11.7 L Hct 37.8 L MCV 89.5 MCH 27.8 MCHC 31.0 L RDW 17.5 H Plt Count 274 MPV 8.4 Sodium Potassium Chloride Carbon Dioxide Anion Gap BUN Creatinine Estimated GFR POC Glucose 259 H 179 H Random Glucose Calcium 12/11/17 12/12/17 12/12/17 22:09 08:42 10:20 WBC RBC Hgb Hct MCV MCH MCHC RDW Plt Count MPV Sodium 133 L Potassium 3.8 Chloride 93 L Carbon Dioxide 27.9 Anion Gap 12 BUN 67 H Creatinine 10.29 H* D Estimated GFR 6 L POC Glucose 203 H 185 H Random Glucose 178 H Calcium 9.8 Assessment and Plan - Assessment (1) Syncope Code(s): R55 - Syncope and collapse Status: Acute - Plan 62 year old AA male with history of ESRD on HD, IDDM, CVA with left-sided hemiparesis, chronic debility, and schizophrenia admitted for evaluation of syncope x 2 during dialysis. 1. Syncope - Etiology possibly secondary to hypotension vs. valvular pathology, neurogenic , vasovagal, etc. - BPs 90s/50s on admission, HR 80s - Carotid U/S negative - Orthostatics difficult to obtain secondary to patient's bed-bound status but will attempt supine and semi-Fowlers - EKG with borderline QTc, sinus rhythm, borderline LAD - Troponin negative - No significant electrolyte abnormalities - Awaiting 2D echo - Continue midodrine 2. ESRD on HD - Creatinine up to 10 - Nephrology following - HD today 3. DM - Place on SSI - Start Levemir 5 units BID - Need verification of home insulin 4. Schizophrenia - Need verification of home meds but for now will restart Risperdal and bedtime Remeron 5. H/o of CVA with left-sided hemiparesis - PT consulted - Not on an antiplatelet per med rec but also not updated, will need verification DVT prophylaxis: heparin Discharge Planning: Need echocardiogram to be done and patient going for dialysis today. Hopefully DC tomorrow (1) Syncope Qualifiers: Syncope type: unspecified Qualified Code(s): R55 - Syncope and collapse
--- NOTE | 2017-12-12 13:18 | ECHRPT ---
Indication: Syncope CONCLUSIONS Normal left ventricular size. Wall thickness is normal. The left ventricular systolic function is normal with an estimated ejection fraction in the range of 55-60%. There is trace tricuspid valve regurgitation. The estimated pulmonary arterial pressure is 38 mmHg. The inferior vena cava was not well visualized. BP: / HR: Rhythm: MEASUREMENTS (Male / Female) Normal Values Technical Quality:Good 2D ECHO LV Diastolic Diameter PLAX 3.5 cm 4.2 - 5.9 / 3.9 - 5.3 cm LV Systolic Diameter PLAX 2.3 cm IVS Diastolic Thickness 1.1 cm 0.6 - 1.0 / 0.6 - 0.9 cm LVPW Diastolic Thickness 1.0 cm 0.6 - 1.0 / 0.6 - 0.9 cm LV Relative Wall Thickness 0.6 RV Internal Dim ED PLAX 2.8 cm LVOT Diameter 2.2 cm Aortic Root Diameter 2.9 cm LA Systolic Diameter LX 2.0 cm 3.0 - 4.0 / 2.7 - 3.8 cm M-MODE AV Cusp Separation MM 2.2 cm DOPPLER AV Peak Velocity 147.0 cm/s AV Peak Gradient 8.6 mmHg LVOT Peak Velocity 104.0 cm/s LVOT Peak Gradient 4.3 mmHg AV Area Cont Eq pk 2.7 cm Mitral E Point Velocity 84.9 cm/s Mitral A Point Velocity 87.9 cm/s Mitral E to A Ratio 1.0 LV E' Lateral Velocity 7.9 cm/s Mitral E to LV E' Lateral Ratio 10.7 LV E' Septal Velocity 6.6 cm/s Mitral E to LV E' Septal Ratio 12.8 TR Peak Velocity 265.0 cm/s TR Peak Gradient 28.1 mmHg Right Atrial Pressure 10.0 mmHg Pulmonary Artery Systolic Pressu 38.1 mmHg Right Ventricular Systolic Press 38.1 mmHg PV Peak Velocity 121.0 cm/s PV Peak Gradient 5.9 mmHg FINDINGS LEFT VENTRICLE Normal left ventricular size. Wall thickness is normal. The left ventricular systolic function is normal with an estimated ejection fraction in the range of 55-60%. RIGHT VENTRICLE Normal right ventricular size and systolic function. LEFT ATRIUM The left atrial size is normal. RIGHT ATRIUM The right atrial size is normal. ATRIAL SEPTUM Normal atrial septal thickness without atrial level shunting by limited color doppler interrogation. AORTA The aortic root and proximal ascending aorta are normal in size on limited imaging. MITRAL VALVE Structurally normal mitral valve. No mitral valve stenosis or regurgitation. AORTIC VALVE Trileaflet aortic valve. TRICUSPID VALVE There is trace tricuspid valve regurgitation. The estimated pulmonary arterial pressure is 38 mmHg. PULMONARY VALVE No pulmonary valve regurgitation or stenosis. VESSELS The inferior vena cava was not well visualized. PERICARDIUM No pericardial effusion. Carter Valdovinos (Electronically Signed) Final Date:12 December 2017 13:17
[2017-12-12 13:59] LABS: Hepatitis A IgM Antibody Nonreactive (Nonreactive); Hepatitits B Surface Antigen Nonreactive (Nonreactive)
[2017-12-12] MEDS: Gelatin 12 MM/7 MM Topical Foam TOPICAL PRN (15:28)
[2017-12-12] MEDS: Escitalopram 10 MG Tablet PO SCH (16:48)
[2017-12-12] MEDS ORDERED: lamoTRIgine 100 MG Tablet PO SCH (21:00)
[2017-12-12] MEDS ORDERED: Gabapentin 100 MG Capsule PO SCH (21:00)
[2017-12-12] MEDS: risperiDONE 0.5 MG ODT PO SCH (22:01)
--- NOTE | 2017-12-13 08:28 | P.DS ---
Date of admission: 12/10/17 11:44 Primary care physician: Sharan Hill MD Anticipated date of discharge: 12/13/17 Brief History from admission: patient is a 62 y/o male with history of ESRD-on HD, diabetes mellitus,CVA, schizophrenia who was brought to ER after had a couple of syncope episodes. patient is not a good historian and most of the information was obtained from the ER. he says that he had some nausea earlier but he doesn't recall if he passed out.he couldn't finish his HD today. he denies any chest pain,abdominal pain, sob. Patient update on day of discharge: Patient seen and examined with BUSINESS ANALYTICS INTERN at bedside. The patient denies any medical complaints including no headache, lightheadedness, dizziness, chest pain, shortness of breath, or abdominal complaints. He is not interested in discussing much further as he is eating breakfast. Discussed discharge back to SNF today, patient agrees. Going for dialysis prior to discharge. DS: Diagnosis - Discharge Diagnosis (1) Syncope Status: Acute (2) End stage renal disease on dialysis Status: Acute (3) Diabetes Status: Chronic DS: Summary Hospital Course: 62 year old AA male with history of ESRD on HD, IDDM, CVA with left-sided hemiparesis, chronic debility, and schizophrenia admitted for evaluation of syncope x 2 during dialysis. Syncope: Suspect secondary to hypotension, however rule out possible valvular pathology, neurogenic, vasovagal, etc. BPs 90s/50s on admission, HR 80s. Carotid U/S negative. Orthostatics difficult to obtain secondary to patient's bed-bound status. EKG with borderline QTc, sinus rhythm, borderline LAD. Troponin negative, no complaints of chest pain. No significant electrolyte abnormalities. 2D echocardiogram with EF 55-60%. Continue midodrine for hypotension. No further episodes. Stable for discharge. ESRD on HD: Creatinine up to 10. Nephrology following. S/p dialysis on 12/12 and 12/13. Cleared for discharge by nephrology. DM: Chronic, Continue Accu-checks and SSI. On lantus at SNF, continued on levemir 5u bid. BG 158 at discharge, stable. Schizophrenia: continue home medications. Outpatient f/up. H/o of CVA with left-sided hemiparesis: Chronic. PT consulted. Discharge back to SNF. - Time Spent with Patient Total time spent providing and/or coordinating discharge services: Greater than 30 minutes Exam Vital signs: Vital Signs 12/12/17 16:00 12/12/17 20:00 12/13/17 00:00 Temperature 98.9 F 97.8 F 97.7 F Pulse Rate 87 89 82 Respiratory Rate 16 16 16 Blood Pressure 121/58 L 181/88 H 126/64 Pulse Oximetry 96 93 L 94 L 12/13/17 04:00 Temperature 97.8 F Pulse Rate 85 Respiratory Rate 16 Blood Pressure 128/60 Pulse Oximetry 93 L Intake & Output 12/12/17 12/13/17 12/13/17 18:59 06:59 18:59 Intake Total 900 / 900 Balance 900 / 900 Intake: Oral 900 / 900 Other: Date of Last Bowel Movement 12/11/17 Narrative: GENERAL: Elderly male patient in NAD. SKIN: Warm and dry. No rash. HEENT: Normocephalic. Atraumatic. Pupils equal and round. Mucous membranes pink and moist. NECK: Supple. Trachea midline. CARDIOVASCULAR: Regular rate and rhythm. No murmur appreciated. RESPIRATORY: No accessory muscle use. Clear to auscultation. Breath sounds equal bilaterally. GASTROINTESTINAL: Abdomen soft, non-tender, nondistended. Normoactive bowel sounds x4. MUSCULOSKELETAL: No obvious deformities. Extremities without clubbing, cyanosis , or edema. NEUROLOGICAL: Awake and alert. Left sided hemiparesis with contracture of LUE. Moving RUE/RLE spontaneously. Normal speech. Results Procedures completed during hospitalization: None. Labs on day of discharge: Labs from last 24 hours 12/12/17 12/12/17 12/12/17 22:09 18:08 12:13 Sodium Potassium Chloride Carbon Dioxide Anion Gap BUN Creatinine Estimated GFR POC Glucose 250 H 257 H Random Glucose Calcium Hepatitis A IgM Ab Nonreactive Hep Bs Antigen Nonreactive Hep B Core IgM Ab Nonreactive Hep C IgG Ab Nonreactive 12/12/17 12/12/17 10:20 08:42 Sodium 133 L Potassium 3.8 Chloride 93 L Carbon Dioxide 27.9 Anion Gap 12 BUN 67 H Creatinine 10.29 H* D Estimated GFR 6 L POC Glucose 185 H Random Glucose 178 H Calcium 9.8 Hepatitis A IgM Ab Hep Bs Antigen Hep B Core IgM Ab Hep C IgG Ab - Impressions ITS Impressions Carotid Doppler Study 12/10/17 00:00 CONCLUSION: 1. Right Internal Carotid Artery: No significant stenosis or atherosclerotic plaque is visualized. 2. Left Internal Carotid Artery: Findings indicate <50% stenosis. Chest X-Ray 12/10/17 09:27 CONCLUSION: Hypoinflation of the lungs with left nasal or airspace consolidation. Discharge Plan - Discharge Disposition Patient Disposition: 03 Discharge to SNF - Discharge Condition Condition: Stable - Discharge Order Discharge Orders: Discharge Order (Routine); Ordered 12/13/17 Ordered By: Mackenzie Shelton - Discharge Details Anticipated Discharge Date: 12/13/17 - Physicians Team Primary Care Provider: Sharan Hill Attending Provider: Ed Mann Other Providers: Lizeth Bell MD ; [facility]
[2017-12-13 08:31] VITALS: O2SAT 94
[2017-12-13 08:45] VITALS: BP 81/52; PULSE 83; RESP 18; TEMP 98.7
[2017-12-13] MEDS: Insulin Detemir Inj 1,000 UNIT/10 ML Vial SQ SCH (09:45)
[2017-12-13] MEDS: Escitalopram 10 MG Tablet PO SCH (09:46)
[2017-12-13] MEDS: Heparin - SQ 10,000 UNITS/ML Vial SQ SCH (09:48)
[2017-12-13] MEDS: Insulin NovoLOG Aspart Correctional Sugar Inj SQ SCH (09:51)
[2017-12-13] MEDS: risperiDONE 0.5 MG ODT PO SCH (10:00)
--- NOTE | 2017-12-13 10:53 | P.PNNP ---
Subjective Interval history: Doing well with no complaints. Hemodialysis planned for today and then discharge to [facility]. <Khalida Laura - Last Filed: 12/13/17 10:51> Physical Exam Vital signs: Vital Signs 12/12/17 16:00 12/12/17 20:00 12/13/17 00:00 Temperature 98.9 F 97.8 F 97.7 F Pulse Rate 87 89 82 Respiratory Rate 16 16 16 Blood Pressure 121/58 L 181/88 H 126/64 Pulse Oximetry 96 93 L 94 L 12/13/17 04:00 12/13/17 08:00 12/13/17 08:31 Temperature 97.8 F 98.7 F Pulse Rate 85 83 Respiratory Rate 16 18 Blood Pressure 128/60 81/52 L Pulse Oximetry 93 L 93 L 94 L Intake & Output 12/12/17 12/13/17 12/13/17 18:59 06:59 18:59 Intake Total 900 / 900 Balance 900 / 900 Intake: Oral 900 / 900 Other: Date of Last Bowel Movement 12/11/17 Narrative: GENERAL: Alert , NAD SKIN: Warm and dry. NECK: Supple, trachea midline. No JVD. CARDIOVASCULAR: Regular rate and rhythm without murmurs, gallops, or rubs. RESPIRATORY: Breath sounds diminished, equal bilaterally. No accessory muscle use. GASTROINTESTINAL: Abdomen soft, large, positive bowel sounds MUSCULOSKELETAL: No cyanosis, Left sided hemiparesis, left hand contracted. <Khalida Laura - Last Filed: 12/13/17 10:51> Assessment and Plan - Assessment (1) End stage renal disease on dialysis Code(s): N18.6 - End stage renal disease; Z99.2 - Dependence on renal dialysis Status: Acute Plan: End stage renal disease on hemodialysis, Tuesday, , and Tuesday Plan Avoid IVF administration and gadolinium. Epogen with dialysis Continue midodrine and Sensipar Hemodialysis yesterday tolerated well, Hemodialysis today will remove fluid as tolerated Plan for discharge today to [facility] <Khalida Larua - Last Filed: 12/13/17 10:51> - Assessment (1) End stage renal disease on dialysis Code(s): N18.6 - End stage renal disease; Z99.2 - Dependence on renal dialysis Status: Acute Plan: Patient seen and examine, agree with above. HD done yesterday, BP is stable and neurologically stable. Possible discharge. (2) Syncope Code(s): R55 - Syncope and collapse Status: Acute Qualifiers: Syncope type: unspecified Qualified Code(s): R55 - Syncope and collapse (3) Diabetes Code(s): E11.9 - Type 2 diabetes mellitus without complications Status: Chronic Qualifiers: Diabetes mellitus type: type 2 Chronic kidney disease stage: on chronic dialysis <Lizeth Bell - Last Filed: 12/16/17 17:52>
[2017-12-13 12:09] LABS: Baso # (Auto) 0.1 th/mm3 (0.0-0.2); Eos # (Auto) 0.1 th/mm3 (0.0-0.4); Eos % (Auto) 1.6 % (0.0-4.0); Hematocrit 33.3 % (39.0-51.0); Hemoglobin 10.8 gm/dL (13.0-17.0); Lymph # (Auto) 1.8 th/mm3 (1.0-4.8); Lymph % (Auto) 34.4 % (9.0-44.0); Mean Corpuscular HGB Conc 32.3 % (32.0-36.0); Mean Corpuscular Hemoglobin 28.1 pg (27.0-34.0); Mean Platelet Volume 8.2 fL (7.0-11.0); Mono # (Auto) 0.4 th/mm3 (0.0-0.9); Mono % (Auto) 8.2 % (0.0-8.0); Neut # (Auto) 2.9 th/mm3 (1.8-7.7); Neut % (Auto) 54.8 % (16.0-70.0); Platelet Count 286 th/mm3 (150-450); Red Blood Count 3.83 mil/mm3 (4.50-5.90); Red Cell Distribution Width 17.3 % (11.6-17.2); White Blood Count 5.4 th/mm3 (4.0-11.0)
[2017-12-13 12:32] LABS: Albumin 3.2 g/dL (3.4-5.0); Calcium 9.3 mg/dL (8.5-10.1); Carbon Dioxide 27.7 meq/L (21.0-32.0); Potassium 3.8 meq/L (3.5-5.1)
[2017-12-13 12:33] LABS: Phosphorus 3.6 mg/dL (2.5-4.9)
[2017-12-13] MEDS: Gelatin 12 MM/7 MM Topical Foam TOPICAL PRN (13:07)
== END 2017-12-13 17:15 ==
LOC: NEPC 09:18 → NEDA 09:18 → NEPHCDU 13:03
PROVIDERS: ADMIT Hospitalist; ATTEND Hospitalist

== ENCOUNTER 2017-12-22 11:11 | Inpatient (IN) ==
--- NOTE | 2017-12-22 11:49 | XR ---
EXAM DATE: 12/22/2017 11:43 AM EDT AGE/SEX: 62 years / Male INDICATIONS: Chest pain CLINICAL DATA: This is the patient's initial encounter. Patient reports that signs and symptoms have been present for 1 day and indicates a pain score of 0/10. MEDICAL/SURGICAL HISTORY: . AV fistula. BPH. Bipolar. Cerebral infarct. CKD. Left hand contrac ture. Dysphagia. ESRD. Esophagitis. GERD. Heart failure. Hypothyroid. PVD. Dialysis. Schizophrenia. D iabetic. . . . Cardiac catheterization COMPARISON: [facility] [place]ST 1V SINGLE AP, 12/10/2017. . FINDINGS: Linear parenchymal opacity in the right lower lung zone. The cardiomediastinal contours are unremarka ble. Osseous structures are intact. CONCLUSION: 1. Right lower lung zone atelectasis/scarring. Electronically signed by: Pako Multani MD 12/22/2017 11:47 AM EDT
--- NOTE | 2017-12-22 12:04 | ED ---
HPI General Chief Complaint: Abdominal Pain Stated Complaint: Abdominal Pain Time Seen by Provider: 12/22/17 11:23 Source: patient Mode of arrival: ambulatory Limitations: no limitations History of Present Illness HPI narrative: 62 male with a history of ESRD on HD MARYJO Pace, presents to the emergency department from his [facility], for evaluation of chest pain that started while at dialysis today. Patient says it was midsternal and nonradiating. He said he has associated shortness of breath and nausea. He received 1 nitro which resolved his pain. Says pain lasted approximately 10 minutes. 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 The nurse states that patient told her that his stomach hurt but says that he was hungry and did not like the food at the halfway facility. This was apparently the story patient told EVAC as well. Currently, he denies fever, chills, abdominal pain, leg pain. He denies unusual vomiting or diarrhea. MD complaint: Reports chest pain Duration: improved Onset: during rest Pain location: Reports substernal Severity: mild Pain radiation: Reports none Relieving factors: nitroglycerin Exacerbating factors: nothing Associated symptoms: Reports nausea Treatments prior to arrival chest pain: Reports nitroglycerin Related Data Home Medications Medication Instructions Recorded Confirmed ascorbic acid (vitamin C) [Vitamin 500 mg PO BID 09/14/17 12/22/17 C] bisacodyl 5 mg PO TID PRN 09/14/17 12/22/17 cinacalcet [Sensipar] 30 mg PO DAILY 09/14/17 12/22/17 escitalopram oxalate 10 mg PO DAILY 09/14/17 12/22/17 gabapentin 200 mg PO HS 09/14/17 12/22/17 hydroxyzine HCl 25 mg PO TID-QID PRN 09/14/17 12/22/17 insulin aspart U-100 [Novolog See Label Instructions .ROUTE 09/14/17 12/22/17 U-100 Insulin aspart] .COMPLEX lamotrigine [Lamictal] 200 mg PO HS 09/14/17 12/22/17 mirtazapine 15 mg PO HS 09/14/17 12/22/17 multivitamin 1 tab PO DAILY 09/14/17 12/22/17 omeprazole 20 mg PO DAILY 09/14/17 12/22/17 ondansetron HCl [Zofran] 8 mg PO Q6HR PRN 09/14/17 12/22/17 polyethylene glycol 3350 17 g PO DAILY 09/14/17 12/22/17 risperidone 0.5 mg PO BID 09/14/17 12/22/17 sevelamer carbonate [Renvela] 2,400 mg PO AC 09/14/17 12/22/17 tamsulosin [Flomax] 0.4 mg PO DAILY 09/14/17 12/22/17 tramadol 50 mg PO Q6H PRN 09/14/17 12/22/17 trazodone 150 mg PO HS 09/14/17 12/22/17 ferrous sulfate 325 mg PO TID 11/18/17 12/22/17 insulin glargine [Lantus U-100 10 unit SUB-Q DAILY 11/18/17 12/22/17 Insulin] lovastatin 20 mg PO DAILY 11/18/17 12/22/17 midodrine 10 mg PO TID 11/18/17 12/22/17 Previous Rx's Medication Instructions Recorded bisacodyl [Bisac-Evac] 10 mg MI DAILY PRN ea 09/22/17 lactulose 30 ml PO DAILY PRN ml 09/22/17 sennosides-docusate sodium [Senna 1 tab PO BID tab 09/22/17 Plus] Allergies Allergy/AdvReac Type Severity Reaction Status Date / Time methadone Allergy Severe Anaphylaxis Verified 12/22/17 11:27 acetaminophen Allergy Unknown Anaphylaxis Verified 12/22/17 11:27 propoxyphene Allergy Unknown Anaphylaxis Verified 12/22/17 11:27 Review of Systems ROS: all other systems reviewed are negative PMFSH History History Provided By: Patient Medical History Medical History AV (arteriovenous fistula) (Acute) Anxiety (Acute) Benign prostatic hyperplasia (Acute) Bipolar disorder (Acute) Cerebral infarction (Acute) Chronic kidney disease (Acute) Contracture, left hand (Acute) Dysphagia (Acute) Dysphagia, oropharyngeal phase (Acute) End stage renal disease (Acute) Esophagitis (Acute) Gastroesophageal reflux disease (Acute) Heart failure (Acute) Hyperlipidemia (Acute) Hypothyroidism (Acute) Iron deficiency anemia (Acute) Mood disorder (Acute) Muscle weakness (Acute) Osteoporosis (Acute) Peripheral vascular disease (Acute) Renal dialysis status (Acute) Schizophrenia (Acute) Type 2 diabetes mellitus (Acute) Social History Social History Substance History: No History of Abuse Second Hand Smoke Exposure: No Smoking Status: Never smoker How Often Do You Have a Drink Containing Alcohol: Never Recent Travel in [facility] within the Last 8 Weeks: No Recent Out of Country Travel within the Last 8 Weeks: No Exam Narrative Exam Narrative: GENERAL: Well-developed, well-nourished in no acute distress, ketones faintly present on breath SKIN: Focused skin assessment warm/dry. HEAD: Atraumatic. Normocephalic. EYES: Pupils equal and round. No scleral icterus. No injection or drainage. ENT: No nasal bleeding or discharge. Mucous membranes pink and moist. NECK: Trachea midline. No JVD. CARDIOVASCULAR: Regular rate and rhythm. No murmur appreciated. RESPIRATORY: No accessory muscle use. Clear to auscultation. Breath sounds equal bilaterally. GASTROINTESTINAL: Abdomen soft, non-tender, nondistended. Hepatic and splenic margins not palpable. MUSCULOSKELETAL: No obvious deformities. No clubbing. No cyanosis. No edema. Contractures and atrophy of bilateral upper and lower extremities NEUROLOGICAL: Awake and alert. No obvious cranial nerve deficits. Motor grossly within normal limits. Normal speech. PSYCHIATRIC: Appropriate mood and affect; insight and judgment normal. Course Initial Documented Vital Signs Temperature 97.9 F 12/22/17 11:18 Pulse Rate 111 H 12/22/17 11:18 Respiratory Rate 22 12/22/17 11:18 Blood Pressure 119/73 12/22/17 11:18 Pulse Oximetry 98 12/22/17 11:18 Last Documented Vital Signs Temperature 97.4 F L 12/22/17 20:00 Pulse Rate 103 H 12/22/17 20:00 Respiratory Rate 16 12/22/17 20:00 Blood Pressure 110/64 12/22/17 20:00 Pulse Oximetry 96 12/22/17 20:00 Medical Decision Making MDM Narrative Medical decision making narrative: 62-year-old male with a history of CAD, end- stage renal disease on hemodialysis, status post CVA, schizophrenia presents to the emergency department for evaluation of chest pain that started while he was at dialysis today. According to EVAC, he told them that he had abdominal pain and said it was because he was hungry. He also stated to my nurse that patient did not like the food at his assisted living facility and wanted to come to the hospital for meal. [facility], patient's family was reluctant to do so. After review the EMR, patient has been in and out of this hospital multiple times over the last year for syncope, altered mental status, nausea, vomiting, constipation. His most recent visit was 12/19/2017 where he was noted to have hyperglycemia and AMS but patient was completely coherent upon arrival and discharged the same day. A CT pulmonary angiogram will be completed as patient has a tachycardia, chest pain, right liver hypodensity (questionable malignancy) and elevated DDimer. EKG shows sinus tachycardia without ST elevation or depression. Reviewed his previous EKG from 12/10 and 09/21. Today's EKG demonstrated notched P waves. I spoke with radiologist who advised patient to have dialysis within 24 hours of the CTA. Will coordinate appropriately. CTA without evidence of pulmonary embolism. When patient returned, he had a significant amount of vomitus and continued to feel nauseous. Zofran for nausea. Ordered CT abd/pelvis without contrast. No evidence of obstruction causing his N/V today.Cystic structure noted on CT. Endoscopy recommended for further eval. I do not see a cardiac work up on him previously. Will admit for chest pain after the CT abdomen/pelvis returns. Dialysis within 24 hours as he received IV contrast today. Medical Screen Exam Complete: Yes Emergency Medical Condition: Yes Differential Diagnosis Differential Diagnosis: ACS, chest pain, malingering Lab Data Result diagrams: 12/22/17 11:50 12/22/17 11:50 Lab Results 12/22/17 12/22/17 12/22/17 Range/Units 11:50 11:50 11:50 WBC 12.6 H (4.0-11.0) th/mm3 RBC 5.09 (4.50-5.90) mil/mm3 Hgb 14.2 (13.0-17.0) gm/dL Hct 44.5 (39.0-51.0) % MCV 87.3 (80.0-100.0) fL MCH 27.9 (27.0-34.0) pg MCHC 32.0 (32.0-36.0) % RDW 17.6 H (11.6-17.2) % Plt Count 247 (150-450) th/mm3 MPV 8.9 (7.0-11.0) fL Neut % (Auto) 81.2 H (16.0-70.0) % Lymph % (Auto) 8.8 L (9.0-44.0) % [place] % (Auto) 9.5 H (0.0-8.0) % Eos % (Auto) 0.1 (0.0-4.0) % Baso % (Auto) 0.4 (0.0-2.0) % Neut # (Auto) 10.2 H (1.8-7.7) th/mm3 Lymph # (Auto) 1.1 (1.0-4.8) th/mm3 [place] # (Auto) 1.2 H (0.0-0.9) th/mm3 Eos # (Auto) 0.0 (0.0-0.4) th/mm3 Baso # (Auto) 0.1 (0.0-0.2) th/mm3 WBC Differential . Differential Comment Auto diff final PT 11.2 (9.8-11.6) sec INR 1.1 Ratio APTT 25.1 (24.3-30.1) sec D-Dimer Quant (PE/DVT) 4.40 H (0.00-0.50) mg/L FEU Sodium 135 L (136-145) meq/L Potassium 3.7 (3.5-5.1) meq/L Chloride 90 L (98-107) meq/L Carbon Dioxide 29.5 (21.0-32.0) meq/L Anion Gap 16 H (5-15) meq/L BUN 33 H (7-18) mg/dL Creatinine 6.83 H (0.60-1.30) mg/dL Estimated GFR 10 L (>89) mL/min POC Glucose (68-110) mg/dl Random Glucose 302 H (74-106) mg/dL Hemoglobin A1c (4.3-6.0) % Calcium 9.1 (8.5-10.1) mg/dL Magnesium 2.6 H (1.5-2.5) mg/dL Total Bilirubin 0.7 (0.2-1.0) mg/dL AST 15 (15-37) U/L ALT 17 (12-78) U/L Alkaline Phosphatase 138 H (45-117) U/L Troponin I 0.03 (0.02-0.05) ng/mL Total Protein 11.5 H (6.4-8.2) g/dL Albumin 3.6 (3.4-5.0) g/dL Beta-Hydroxybutyric Acd 1.73 H (0.00-0.39) mmol/L 12/22/17 12/22/17 12/22/17 Range/Units 11:50 17:30 21:06 WBC (4.0-11.0) th/mm3 RBC (4.50-5.90) mil/mm3 Hgb (13.0-17.0) gm/dL Hct (39.0-51.0) % MCV (80.0-100.0) fL MCH (27.0-34.0) pg MCHC (32.0-36.0) % RDW (11.6-17.2) % Plt Count (150-450) th/mm3 MPV (7.0-11.0) fL Neut % (Auto) (16.0-70.0) % Lymph % (Auto) (9.0-44.0) % [place] % (Auto) (0.0-8.0) % Eos % (Auto) (0.0-4.0) % Baso % (Auto) (0.0-2.0) % Neut # (Auto) (1.8-7.7) th/mm3 Lymph # (Auto) (1.0-4.8) th/mm3 [place] # (Auto) (0.0-0.9) th/mm3 Eos # (Auto) (0.0-0.4) th/mm3 Baso # (Auto) (0.0-0.2) th/mm3 WBC Differential Differential Comment PT (9.8-11.6) sec INR Ratio APTT (24.3-30.1) sec D-Dimer Quant (PE/DVT) (0.00-0.50) mg/L FEU Sodium (136-145) meq/L Potassium (3.5-5.1) meq/L Chloride (98-107) meq/L Carbon Dioxide (21.0-32.0) meq/L Anion Gap (5-15) meq/L BUN (7-18) mg/dL Creatinine (0.60-1.30) mg/dL Estimated GFR (>89) mL/min POC Glucose 376 H (68-110) mg/dl Random Glucose (74-106) mg/dL Hemoglobin A1c 7.5 H (4.3-6.0) % Calcium (8.5-10.1) mg/dL Magnesium (1.5-2.5) mg/dL Total Bilirubin (0.2-1.0) mg/dL AST (15-37) U/L ALT (12-78) U/L Alkaline Phosphatase (45-117) U/L Troponin I 0.04 (0.02-0.05) ng/mL Total Protein (6.4-8.2) g/dL Albumin (3.4-5.0) g/dL Beta-Hydroxybutyric Acd (0.00-0.39) mmol/L Imaging Data Radiologist's impression: Chest X-Ray 12/22/17 11:32 CONCLUSION: 1. Right lower lung zone atelectasis/scarring. Chest CTA 12/22/17 12:38 CONCLUSION: 1. No evidence of pulmonary embolism 2. Abnormal appearance of the esophagus Abdomen/Pelvis CT 12/22/17 15:37 CONCLUSION: 1. Diffuse hepatic fatty infiltration. 2. 5 cm cystic structure possibly within the wall of the distal esophagus. Initially I thought this represented a paraesophageal hernia difficult to identify a communication to the lumen of the gastric cardia. 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 I do not believe that there is compromise of the esophageal lumen, however. Endoscopy or upper GI could be performed for further characterization. 3. Both kidneys are markedly atrophic. 4. Series of stents traversing the left external iliac vein and left SFV. Discharge Plan Discharge Disposition Patient Disposition: 30 Still Patient Discharge Condition Condition: Stable Discharge Details Diagnosis: Chest pain, Nausea and vomiting Physicians Team ED Provider: Artem Hernández ED Midlevel Provider: Socorro Butler Primary Care Provider: UNKNOWN, Attending Provider: Damián Buenrostro Other Providers: Sarwat Rain ; Lizeth Bell Discharge Interventions Interventions: ED Discharge Assessment Last Done: 12/22/17 18:28 Status ED Status: Left Department Discharge Information Discharge Date/Time: 12/22/17 18:29
[2017-12-22 12:12] LABS: Baso # (Auto) 0.1 th/mm3 (0.0-0.2); Baso % (Auto) 0.4 % (0.0-2.0); Eos % (Auto) 0.1 % (0.0-4.0); Hematocrit 44.5 % (39.0-51.0); Hemoglobin 14.2 gm/dL (13.0-17.0); Lymph # (Auto) 1.1 th/mm3 (1.0-4.8); Lymph % (Auto) 8.8 % (9.0-44.0); Mean Corpuscular Hemoglobin 27.9 pg (27.0-34.0); Mean Corpuscular Volume 87.3 fL (80.0-100.0); Mean Platelet Volume 8.9 fL (7.0-11.0); Mono # (Auto) 1.2 th/mm3 (0.0-0.9); Mono % (Auto) 9.5 % (0.0-8.0); Neut # (Auto) 10.2 th/mm3 (1.8-7.7); Neut % (Auto) 81.2 % (16.0-70.0); Platelet Count 247 th/mm3 (150-450); Red Blood Count 5.09 mil/mm3 (4.50-5.90); Red Cell Distribution Width 17.6 % (11.6-17.2); White Blood Count 12.6 th/mm3 (4.0-11.0)
[2017-12-22 12:28] LABS: Activated Partial Thrombo Time 25.1 sec (24.3-30.1); D-Dimer 4.4 mg/L FEU (0.00-0.50); INR 1.1 Ratio; Prothrombin Time 11.2 sec (9.8-11.6)
[2017-12-22 12:38] LABS: Albumin 3.6 g/dL (3.4-5.0); Anion Gap 16 meq/L (5-15); Blood Urea Nitrogen 33 mg/dL (7-18); Calcium 9.1 mg/dL (8.5-10.1); Carbon Dioxide 29.5 meq/L (21.0-32.0); Chloride 90 meq/L (98-107); Glomerular Filtration Rate 10 mL/min (>89); Glucose,Random 302 mg/dL (74-106); Magnesium 2.6 mg/dL (1.5-2.5); Potassium 3.7 meq/L (3.5-5.1); Sodium 135 meq/L (136-145)
[2017-12-22 12:39] LABS: Aspartate Aminotransferase 15 U/L (15-37)
[2017-12-22 12:43] LABS: Alanine Aminotransferase 17 U/L (12-78); Alkaline Phosphatase 138 U/L (45-117); Beta Hydroxybutyric Acid 1.73 mmol/L (0.00-0.39); Total Protein 11.5 g/dL (6.4-8.2); Troponin I 0.03 ng/mL (0.02-0.05)
[2017-12-22] MEDS: Sodium Chlor 0.9% Inj 500 ML IV.SIG SCH (13:09)
--- NOTE | 2017-12-22 15:18 | CT ---
EXAM DATE: 12/22/2017 3:05 PM EDT AGE/SEX: 62 years / Male INDICATIONS: Chest pain. CLINICAL DATA: This is the patient's initial encounter. Patient reports that signs and symptoms have been present for 1 day and indicates a pain score of 10/10. MEDICAL/SURGICAL HISTORY: Diabetes. Chronic kidney disease, cerebral infarction, av fistula, dialys is. . Cardiac catheter. RADIATION DOSE: 10.50 CTDI (mGy) COMPARISON: [facility] [place] ABDOMEN & PELVIS W/O CONTRAST, 11/29/2014. . TECHNIQUE: Volumetric scanning was performed using a multi-row detector CT scanner during bolus infu abigail of 50 ml Omnipaque 350 (iohexol) nonionic water-soluble contrast as a single exam dose. The michael a was post processed with a variety of visualization algorithms including full volume maximum intensi ty projection and sliding thin slab reformation. Using automated exposure control and adjustment of the mA and/or kV according to patient size, radiation dose was kept as low as reasonably achievable t o obtain optimal diagnostic quality images. DICOM format image data is available electronically for review and comparison. FINDINGS: Pulmonary Arteries: No filling defects are seen in the pulmonary arteries out to the subsegmental ve ssels. The left and right pulmonary arteries are normal in diameter. Lung: Mild bilateral basilar atelectasis. Effusion: None. Mediastinum: The esophagus is mildly dilated with suggestion of diffuse mild distal esophageal wall thickening. A fluid density in the low left middle mediastinum adjacent to the distal esophagus is no barby previously and presumably a duplication cyst. Other: The axilla is unremarkable. CONCLUSION: 1. No evidence of pulmonary embolism 2. Abnormal appearance of the esophagus Electronically signed by: Seun Sarkar MD 12/22/2017 3:17 PM EDT
--- NOTE | 2017-12-22 17:03 | CT ---
EXAM DATE: 12/22/2017 4:49 PM EDT AGE/SEX: 62 years / Male INDICATIONS: Abdomen pain, vomiting CLINICAL DATA: This is the patient's initial encounter. Patient reports that signs and symptoms have been present for 1 day and indicates a pain score of 4/10. MEDICAL/SURGICAL HISTORY: Chronic renal failure. Gastroesophageal reflux disease. Cerebrovasc ular disease. None. RADIATION DOSE: 10.66 CTDI (mGy) COMPARISON: [facility] – [place], MRI ABDOMEN W/O CONTRAST, 11/25/2017. . TECHNIQUE: Multiple contiguous axial images were obtained through the abdomen. Images were obtained using multiple row detector helical technique. Using automated exposure control and adjustment of the mA and/or kV according to patient size, radiation dose was kept as low as reasonably achievable to o btain optimal diagnostic quality images. DICOM format image data is available electronically for rev iew and comparison. FINDINGS: Lower Lungs: Bibasilar atelectatic changes. There is a 5 cm cystic structure possibly within the wall of the distal esophagus. Initially, I felt this may represent a paraesophageal hernia but I cannot d efinitively identify a communication with the gastric fundus on the coronal reconstructions. Liver: The liver has a homogeneous, but decreased density without space-occupying lesion. There is no dilation of the biliary tree. Spleen: Homogeneous density without enlargement. Pancreas: Unremarkable without mass or calcification. Kidneys: Both kidneys are markedly atrophic. Adrenal Glands: Unremarkable. Aorta: The aorta and proximal iliac vessels are grossly unremarkable without aneurysmal dilation. Bowel/Mesentery: The bowel loops are grossly unremarkable. The cecum and sigmoid colon have a normal configuration. Abdominal Wall: Intact. Retroperitoneum: No evidence of adenopathy in the retrocrural, para-aortic, or deep pelvic regions. Bladder: Contours are smooth. Reproductive Organs: No abnormal masses or calcifications seen. Inguinal: The inguinal region is unremarkable without evidence of adenopathy. Bony Structures: Unremarkable. Post Contrast: No abnormal areas of enhancement seen. Miscellaneous: A series of stents traverse the left external iliac vein and SFV. CONCLUSION: 1. Diffuse hepatic fatty infiltration. 2. 5 cm cystic structure possibly within the wall of the distal esophagus. Initially I thought this represented a paraesophageal hernia difficult to identify a communication to the lumen of the gastric cardia. 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 I do not believe that there is compromise of th e esophageal lumen, however. Endoscopy or upper GI could be performed for further characterization. 3. Both kidneys are markedly atrophic. 4. Series of stents traversing the left external iliac vein and left SFV. Electronically signed by: Marek Ring MD 12/22/2017 5:02 PM EDT
--- NOTE | 2017-12-22 18:02 | P.HP ---
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 Patient had 4.8L of fluid removed. Patient is not a very good historian and after answering some of my questions he states "I don't want to talk anymore". He does relay that he developed burning retrosternal chest pain with radiation into the left arm with associated dyspnea and nausea. He states he has been experiencing this pain multiple times per day. He says it is worse after meals. He says he frequently vomits after eating. He says his chest pain today improved after receiving a Nitro. In the ED, patient was tachycardic and hypoxic with elevated d-dimer of 4.40. CTA showed abnormal appearance of the esophagus and no evidence of PE. Per the ED, patient had an episode of projectile vomiting. He was found to have mild leukocytosis with white count 12.6. He is tachycardic with heart rate low 100s. Chemistry panel significant for hyponatremia with sodium of 135. He also has slight anion gap of 16. BUN is 33 and creatinine is 6.83. He is also has poorly controlled blood sugar of 302. Beta hydroxybutyrate acid is elevated 1.73. CT of abdomen pelvis shows diffuse hepatic fatty infiltration, markedly atrophied kidneys, series of stents traversing the left external iliac vein and left SFV and 5 cm cystic structure possibly within the wall of the distal esophagus. Initial troponin is 0.03 and repeat troponin level pending. EKG shows no ischemic changes. Review of Systems All other systems reviewed negative except as stated in HPI PMFSH - History History Provided By: Patient - Medical History Medical History: Medical History (Last Reviewed 12/22/17 @ 17:46 by Millie Luna) AV (arteriovenous fistula) Anxiety Benign prostatic hyperplasia Bipolar disorder Cerebral infarction Chronic kidney disease Contracture, left hand Dysphagia Dysphagia, oropharyngeal phase End stage renal disease Esophagitis Gastroesophageal reflux disease Heart failure Hyperlipidemia Hypothyroidism Iron deficiency anemia Mood disorder Muscle weakness Osteoporosis Peripheral vascular disease Renal dialysis status Schizophrenia Type 2 diabetes mellitus - Surgical History Surgical History: Surgical History (Last Reviewed 12/22/17 @ 17:46 by Millie Luna) H/O cardiac catheterization - Family History Family History: Family History (Last Reviewed 12/22/17 @ 17:46 by Millie Luna) Other No family history of cardiac disease - Social History I have reviewed the patient's Social History: Yes - Tobacco History Second Hand Smoke Exposure: No Smoking Status: Never smoker - Alcohol History How Often Do You Have a Drink Containing Alcohol: Never - Substance Use History Substance History: No History of Abuse - Travel History Recent Travel in the [place] Within the Last 8 Weeks: No Recent Travel Out of the Country Within the Last 8 Weeks: No - Immunization History Tetanus Immunization: Unsure Medications and Allergies Active Medications: Active Medications Sodium Chloride (Ns Inj) 500 mls @ 0 mls/hr IV.SIG BOLUS FLAQUITA Last Infusion: 12/22/17 13:49 Dose: Infused Sodium Chloride (Ns Flush) 2 ml IV.FLUSH UNSCH PRN PRN Reason: FLUSH AFTER USING IV ACCESS Allergies Allergy/AdvReac Type Severity Reaction Status Date / Time methadone Allergy Severe Anaphylaxis Verified 12/22/17 11:27 acetaminophen Allergy Unknown Anaphylaxis Verified 12/22/17 11:27 propoxyphene Allergy Unknown Anaphylaxis Verified 12/22/17 11:27 Home Medications Medication Instructions Recorded Confirmed Type ascorbic acid (vitamin C) [Vitamin 500 mg PO BID 09/14/17 12/22/17 History C] bisacodyl 5 mg PO TID PRN 09/14/17 12/22/17 History cinacalcet [Sensipar] 30 mg PO DAILY 09/14/17 12/22/17 History escitalopram oxalate 10 mg PO DAILY 09/14/17 12/22/17 History gabapentin 200 mg PO HS 09/14/17 12/22/17 History hydroxyzine HCl 25 mg PO TID-QID PRN 09/14/17 12/22/17 History insulin aspart U-100 [Novolog See Label Instructions .ROUTE 09/14/17 12/22/17 History U-100 Insulin aspart] .COMPLEX lamotrigine [Lamictal] 200 mg PO HS 09/14/17 12/22/17 History mirtazapine 15 mg PO HS 09/14/17 12/22/17 History multivitamin 1 tab PO DAILY 09/14/17 12/22/17 History omeprazole 20 mg PO DAILY 09/14/17 12/22/17 History ondansetron HCl [Zofran] 8 mg PO Q6HR PRN 09/14/17 12/22/17 History polyethylene glycol 3350 17 g PO DAILY 09/14/17 12/22/17 History risperidone 0.5 mg PO BID 09/14/17 12/22/17 History sevelamer carbonate [Renvela] 2,400 mg PO AC 09/14/17 12/22/17 History tamsulosin [Flomax] 0.4 mg PO DAILY 09/14/17 12/22/17 History tramadol 50 mg PO Q6H PRN 09/14/17 12/22/17 History trazodone 150 mg PO HS 09/14/17 12/22/17 History ferrous sulfate 325 mg PO TID 11/18/17 12/22/17 History insulin glargine [Lantus U-100 10 unit SUB-Q DAILY 11/18/17 12/22/17 History Insulin] lovastatin 20 mg PO DAILY 11/18/17 12/22/17 History midodrine 10 mg PO TID 11/18/17 12/22/17 History Exam Vital signs: Vital Signs 12/22/17 11:18 12/22/17 11:55 12/22/17 12:40 Temperature 97.9 F Pulse Rate 111 H 102 H Respiratory Rate 22 22 Blood Pressure 119/73 Pulse Oximetry 98 95 100 12/22/17 12:44 12/22/17 17:30 Temperature Pulse Rate 105 H 98 H Respiratory Rate 16 Blood Pressure 101/66 105/62 Pulse Oximetry 98 97 Intake & Output 12/21/17 12/22/17 12/22/17 18:59 06:59 18:59 Intake Total 500 / 500 Balance 500 / 500 Weight 81.647 kg Intake: IV 500 / 500 NS Inj 500 ML @ Wide Open IV. 500 / 500 SIG BOLUS FLAQUITA Rx#:[id number] Narrative: GENERAL: WDWN male patient, INAD. Awake and alert. SKIN: Warm and dry. HEAD: Atraumatic. Normocephalic. EYES: Pupils equal and round. No scleral icterus. No injection or drainage. ENT: No nasal bleeding or discharge. Mucous membranes pink and moist. NECK: Trachea midline. CARDIOVASCULAR: Regular rate and rhythm. RESPIRATORY: No accessory muscle use. Clear to auscultation. Breath sounds equal bilaterally. GASTROINTESTINAL: Abdomen soft, non-tender, nondistended. Hepatic and splenic margins not palpable. MUSCULOSKELETAL: Extremities without clubbing, cyanosis, or edema. Multiple contractures noted. NEUROLOGICAL: Awake and alert. No obvious cranial nerve deficits. Motor function intact in right upper and lower extremity. Left upper and lower extremity with motor deficit, muscle atrophy and contractures. Normal speech. PSYCHIATRIC: Calm and cooperative Results - Labs CBC & Chem 7: 01/05/18 05:21 01/05/18 05:21 Labs: Laboratory Results - last 24 hr 12/22/17 12/22/17 12/22/17 11:50 11:50 11:50 WBC 12.6 H RBC 5.09 Hgb 14.2 Hct 44.5 MCV 87.3 MCH 27.9 MCHC 32.0 RDW 17.6 H Plt Count 247 MPV 8.9 Neut % (Auto) 81.2 H Lymph % (Auto) 8.8 L [place] % (Auto) 9.5 H Eos % (Auto) 0.1 Baso % (Auto) 0.4 Neut # (Auto) 10.2 H Lymph # (Auto) 1.1 [place] # (Auto) 1.2 H Eos # (Auto) 0.0 Baso # (Auto) 0.1 WBC Differential . Differential Comment Auto diff final PT 11.2 INR 1.1 APTT 25.1 D-Dimer Quant (PE/DVT) 4.40 H Sodium 135 L Potassium 3.7 Chloride 90 L Carbon Dioxide 29.5 Anion Gap 16 H BUN 33 H Creatinine 6.83 H Estimated GFR 10 L Random Glucose 302 H Calcium 9.1 Magnesium 2.6 H Total Bilirubin 0.7 AST 15 ALT 17 Alkaline Phosphatase 138 H Troponin I 0.03 Total Protein 11.5 H Albumin 3.6 Beta-Hydroxybutyric Acd 1.73 H - Imaging Impressions Chest X-Ray 12/22/17 11:32 CONCLUSION: 1. Right lower lung zone atelectasis/scarring. Chest CTA 12/22/17 12:38 CONCLUSION: 1. No evidence of pulmonary embolism 2. Abnormal appearance of the esophagus Abdomen/Pelvis CT 12/22/17 15:37 CONCLUSION: 1. Diffuse hepatic fatty infiltration. 2. 5 cm cystic structure possibly within the wall of the distal esophagus. Initially I thought this represented a paraesophageal hernia difficult to identify a communication to the lumen of the gastric cardia. 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 I do not believe that there is compromise of the esophageal lumen, however. Endoscopy or upper GI could be performed for further characterization. 3. Both kidneys are markedly atrophic. 4. Series of stents traversing the left external iliac vein and left SFV. Caprini VTE Risk Assessment Caprini VTE Risk Assessment: Moderate/High Risk (score >= 2) Caprini Risk Assessment Model: Point Value = 1 Point Value = 2 Point Value = 3 Point Value = 5 Age 41-60 Minor surgery BMI > 25 kg/m2 Swollen legs Varicose veins or History of unexplained or recurrent spontaneous Oral contraceptives or hormone replacement Sepsis (< 1 month) Serious lung disease, including pneumonia (< 1 month) Abnormal pulmonary function Acute myocardial infarction Congestive heart failure (< 1 month) History of inflammatory bowel disease Medical patient at bed rest Age 61-74 Arthroscopic surgery Major open surgery (> 45 min) Laparoscopic surgery (> 45 min) Malignancy Confined to bed (> 72 hours) Immobilizing plaster cast Central venous access Age >= 75 History of VTE Family history of VTE Factor V Leiden Prothrombin [id number] Lupus anticoagulant Anticardiolipin antibodies Elevated serum homocysteine Heparin-induced thrombocytopenia Other congenital or acquired thrombophilia Stroke (< 1 month) Elective arthroplasty Hip, pelvis, or leg fracture Acute spinal cord injury (< 1 month) Prophylaxis Regimen: Total Risk Factor Score Risk Level Prophylaxis Regimen 0-1 Low Early ambulation 2 Moderate Order ONE of the following: *Sequential Compression Device (SCD) *Heparin 5000 units SQ BID 3-4 Higher Order ONE of the following medications: *Heparin 5000 units SQ TID *Enoxaparin/Lovenox 40 mg SQ daily (WT < 150 kg, CrCl > 30 mL/min) *Enoxaparin/Lovenox 30 mg SQ daily (WT < 150 kg, CrCl > 10-29 mL/min) *Enoxaparin/Lovenox 30 mg SQ BID (WT < 150 kg, CrCl > 30 mL/min) AND/OR *Sequential Compression Device (SCD) 5 or more Highest Order ONE of the following medications: *Heparin 5000 units SQ TID (Preferred with Epidurals) *Enoxaparin/Lovenox 40 mg SQ daily (WT < 150 kg, CrCl > 30 mL/min) *Enoxaparin/Lovenox 30 mg SQ daily (WT < 150 kg, CrCl > 10-29 mL/min) *Enoxaparin/Lovenox 30 mg SQ BID (WT < 150 kg, CrCl > 30 mL/min) AND *Sequential Compression Device (SCD) Assessment and Plan - Plan 62-year-old -[place] male with past medical history significant for end- stage renal disease on dialysis, 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 Chest pain r/o ACS Initial troponin 0.03 EKG without any ischemic changes, reviewed patient reports relief after Nitro given -continuous cardiac monitoring -Obtain serial cardiac enzymes and EKG -obtain TSH and lipid profile -Nitro prn chest pain Projectile vomiting Abnormal esophagus on imaging GERD s/p EGD 08/2017 showing grade C esophagitis and mild duodenitis -Consult GI, appreciate assistance -Speech therapy for swallow evaluation -PPI -IV antiemetics prn ESRD on HD TTHSat Status post hemodialysis today with 4.8 L removed -Consult nephrology, appreciate assistance Diabetes, type II, chronic, not well controlled Diabetic neuropathy Blood sugar 302 -Obtain hemoglobin A1c level -Accu-Cheks and insulin sliding scale -resume home Gabapentin Leukocytosis, possibly reactive -Patient is afebrile, does not appear septic -Continue to monitor white count -Monitor vitals Hypotensive -resume home Midodrine Hx of CVA with left sided weakness and contractures Chronically debilitated -PT/OT eval/tx Bipolar Schizophrenia -resume home meds DVT prophylaxis -Heparin subcu Discussed Condition With: patient, Dr. Buenrostro
[2017-12-22] MEDS ORDERED: Bisacodyl 10 MG Supp RECTAL PRN (18:04)
[2017-12-22] MEDS ORDERED: Dextrose 50% in Water 50 ML Vial IV.PUSH PRN (18:07)
[2017-12-22] MEDS ORDERED: Heparin - SQ 10,000 UNITS/ML Vial SQ SCH (20:00)
[2017-12-22] MEDS: Gabapentin 100 MG Capsule PO SCH (21:08)
[2017-12-22] MEDS: Senna/Docusate Sodium 8.6/50 MG Tablet PO SCH (21:08)
[2017-12-22] MEDS: lamoTRIgine 100 MG Tablet PO SCH (21:08)
[2017-12-22 21:51] LABS: Hemoglobin A1c 7.5 % (4.3-6.0)
[2017-12-22] MEDS: risperiDONE 0.5 MG ODT PO SCH (22:19)
[2017-12-23 00:07] LABS: Troponin I 0.04 ng/mL (0.02-0.05)
[2017-12-23] MEDS: Insulin NovoLOG Aspart Correctional Sugar Inj SQ SCH ×3 (01:13→14:22)
[2017-12-23] MEDS: Pantoprazole Inj 80 MG in Sodium Chlor 0.9% Inj 100 ML IV.CONT SCH ×2 (04:14→14:19)
[2017-12-23 04:26] LABS: Cholesterol 145 mg/dL (120-200); Triglycerides 220 mg/dL (42-150)
[2017-12-23 04:37] LABS: Alanine Aminotransferase 17 U/L (12-78); Albumin 3.2 g/dL (3.4-5.0); Alkaline Phosphatase 117 U/L (45-117); Anion Gap 14 meq/L (5-15); Aspartate Aminotransferase 31 U/L (15-37); Blood Urea Nitrogen 43 mg/dL (7-18); Calcium 9.3 mg/dL (8.5-10.1); Chloride 88 meq/L (98-107); Chol/HDL Ratio 2.81 Ratio; Creatine Kinase 106 U/L (39-308); Glomerular Filtration Rate 8 mL/min (>89); Glucose,Random 320 mg/dL (74-106); HDL Cholesterol 51.5 mg/dL (40.0-60.0); LDL Cholesterol,Calculated 50 mg/dL (0-99); Potassium 3.9 meq/L (3.5-5.1); Sodium 135 meq/L (136-145); Total Protein 9.9 g/dL (6.4-8.2); Troponin I 0.05 ng/mL (0.02-0.05)
[2017-12-23 05:13] LABS: Baso % (Auto) 0.3 % (0.0-2.0); Hematocrit 37.8 % (39.0-51.0); Hemoglobin 12.3 gm/dL (13.0-17.0); Lymph # (Auto) 0.7 th/mm3 (1.0-4.8); Lymph % (Auto) 5.3 % (9.0-44.0); Mean Corpuscular HGB Conc 32.5 % (32.0-36.0); Mean Corpuscular Hemoglobin 28.3 pg (27.0-34.0); Mean Corpuscular Volume 87.1 fL (80.0-100.0); Mean Platelet Volume 9.6 fL (7.0-11.0); Mono # (Auto) 1.1 th/mm3 (0.0-0.9); Mono % (Auto) 8.2 % (0.0-8.0); Neut # (Auto) 11.5 th/mm3 (1.8-7.7); Neut % (Auto) 86.2 % (16.0-70.0); Platelet Count 252 th/mm3 (150-450); Red Blood Count 4.34 mil/mm3 (4.50-5.90); Red Cell Distribution Width 18.1 % (11.6-17.2); White Blood Count 13.3 th/mm3 (4.0-11.0)
[2017-12-23] MEDS ORDERED: Octreotide Inj 50 MCG/ML Vial IV.PUSH ONE (05:30)
[2017-12-23] MEDS ORDERED: Sodium Chlor 0.9% Inj 500 ML IV.SIG SCH ×2 (06:00→12:00)
[2017-12-23] MEDS ORDERED: Pantoprazole Sodium 20 MG DR Tablet PO SCH (09:00)
[2017-12-23] MEDS ORDERED: Insulin Detemir Inj 1,000 UNIT/10 ML Vial SQ SCH (09:00)
--- NOTE | 2017-12-23 09:55 | P.PN ---
Physical Exam Vital signs: Vital Signs 12/22/17 11:18 12/22/17 11:55 12/22/17 12:40 Temperature 97.9 F Pulse Rate 111 H 102 H Respiratory Rate 22 22 Blood Pressure 119/73 Pulse Oximetry 98 95 100 12/22/17 12:44 12/22/17 17:30 12/22/17 20:00 Temperature 97.4 F L Pulse Rate 105 H 98 H 103 H Respiratory Rate 16 16 Blood Pressure 101/66 105/62 110/64 Pulse Oximetry 98 97 96 12/22/17 23:42 12/23/17 04:14 12/23/17 04:41 Temperature 98.5 F 98.2 F Pulse Rate 101 H 107 H Respiratory Rate 14 18 Blood Pressure 96/68 L 90/64 L 81/49 L Pulse Oximetry 95 85 L 12/23/17 05:42 12/23/17 07:43 Temperature 97.9 F Pulse Rate 99 H 91 H Respiratory Rate 16 18 Blood Pressure 100/71 101/66 Pulse Oximetry 99 98 Intake & Output 12/22/17 12/23/17 12/23/17 18:59 06:59 18:59 Intake Total 500 / 500 Output Total 600 / 600 Balance 500 / 500 -600 / -600 Weight 81.647 kg 81.647 kg Intake: IV 500 / 500 NS Inj 500 ML @ Wide Open IV. 500 / 500 SIG BOLUS FLAQUITA Rx#:[id number] Output: Emesis 600 / 600 Other: # Emeses 4 # Oral Regurgitations 2 Weight On Admission 81.647 kg Results - Labs CBC & Chem 7: 12/23/17 04:28 12/23/17 03:59 Laboratory Results - last 24 hr 12/22/17 12/22/17 12/22/17 11:50 11:50 11:50 WBC 12.6 H RBC 5.09 Hgb 14.2 Hct 44.5 MCV 87.3 MCH 27.9 MCHC 32.0 RDW 17.6 H Plt Count 247 MPV 8.9 Neut % (Auto) 81.2 H Lymph % (Auto) 8.8 L [place] % (Auto) 9.5 H Eos % (Auto) 0.1 Baso % (Auto) 0.4 Neut # (Auto) 10.2 H Lymph # (Auto) 1.1 [place] # (Auto) 1.2 H Eos # (Auto) 0.0 Baso # (Auto) 0.1 WBC Differential . Differential Comment Auto diff final PT 11.2 INR 1.1 APTT 25.1 D-Dimer Quant (PE/DVT) 4.40 H Sodium 135 L Potassium 3.7 Chloride 90 L Carbon Dioxide 29.5 Anion Gap 16 H BUN 33 H Creatinine 6.83 H Estimated GFR 10 L POC Glucose Random Glucose 302 H Hemoglobin A1c Calcium 9.1 Magnesium 2.6 H Total Bilirubin 0.7 AST 15 ALT 17 Alkaline Phosphatase 138 H Total Creatine Kinase Troponin I 0.03 Total Protein 11.5 H Albumin 3.6 Triglycerides Cholesterol LDL Cholesterol, Calc HDL Cholesterol Cholesterol/HDL Ratio Beta-Hydroxybutyric Acd 1.73 H TSH 12/22/17 12/22/17 12/22/17 11:50 17:30 21:06 WBC RBC Hgb Hct MCV MCH MCHC RDW Plt Count MPV Neut % (Auto) Lymph % (Auto) [place] % (Auto) Eos % (Auto) Baso % (Auto) Neut # (Auto) Lymph # (Auto) [place] # (Auto) Eos # (Auto) Baso # (Auto) WBC Differential Differential Comment PT INR APTT D-Dimer Quant (PE/DVT) Sodium Potassium Chloride Carbon Dioxide Anion Gap BUN Creatinine Estimated GFR POC Glucose 376 H Random Glucose Hemoglobin A1c 7.5 H Calcium Magnesium Total Bilirubin AST ALT Alkaline Phosphatase Total Creatine Kinase Troponin I 0.04 Total Protein Albumin Triglycerides Cholesterol LDL Cholesterol, Calc HDL Cholesterol Cholesterol/HDL Ratio Beta-Hydroxybutyric Acd TSH 12/22/17 12/23/17 12/23/17 23:32 00:55 03:59 WBC RBC Hgb Hct MCV MCH MCHC RDW Plt Count MPV Neut % (Auto) Lymph % (Auto) [place] % (Auto) Eos % (Auto) Baso % (Auto) Neut # (Auto) Lymph # (Auto) [place] # (Auto) Eos # (Auto) Baso # (Auto) WBC Differential Differential Comment PT INR APTT D-Dimer Quant (PE/DVT) Sodium 135 L Potassium 3.9 Chloride 88 L Carbon Dioxide 33.0 H Anion Gap 14 BUN 43 H Creatinine 7.94 H Estimated GFR 8 L POC Glucose 339 H Random Glucose 320 H Hemoglobin A1c Calcium 9.3 Magnesium Total Bilirubin 0.5 AST 31 ALT 17 Alkaline Phosphatase 117 Total Creatine Kinase 77 106 Troponin I 0.04 0.05 Total Protein 9.9 H D Albumin 3.2 L Triglycerides 220 H Cholesterol 145 LDL Cholesterol, Calc 50 HDL Cholesterol 51.5 Cholesterol/HDL Ratio 2.81 Beta-Hydroxybutyric Acd TSH 1.070 12/23/17 12/23/17 04:28 08:21 WBC 13.3 H RBC 4.34 L Hgb 12.3 L Hct 37.8 L MCV 87.1 MCH 28.3 MCHC 32.5 RDW 18.1 H Plt Count 252 MPV 9.6 Neut % (Auto) 86.2 H Lymph % (Auto) 5.3 L [place] % (Auto) 8.2 H Eos % (Auto) 0.0 Baso % (Auto) 0.3 Neut # (Auto) 11.5 H Lymph # (Auto) 0.7 L [place] # (Auto) 1.1 H Eos # (Auto) 0.0 Baso # (Auto) 0.0 WBC Differential . Differential Comment Auto diff final PT INR APTT D-Dimer Quant (PE/DVT) Sodium Potassium Chloride Carbon Dioxide Anion Gap BUN Creatinine Estimated GFR POC Glucose 226 H Random Glucose Hemoglobin A1c Calcium Magnesium Total Bilirubin AST ALT Alkaline Phosphatase Total Creatine Kinase Troponin I Total Protein Albumin Triglycerides Cholesterol LDL Cholesterol, Calc HDL Cholesterol Cholesterol/HDL Ratio Beta-Hydroxybutyric Acd TSH Microbiology 12/23/17 00:55 Sputum - Expectorated Sputum Gram Stain - Final - Imaging Impressions Chest X-Ray 12/22/17 11:32 CONCLUSION: 1. Right lower lung zone atelectasis/scarring. Chest CTA 12/22/17 12:38 CONCLUSION: 1. No evidence of pulmonary embolism 2. Abnormal appearance of the esophagus Abdomen/Pelvis CT 12/22/17 15:37 CONCLUSION: 1. Diffuse hepatic fatty infiltration. 2. 5 cm cystic structure possibly within the wall of the distal esophagus. Initially I thought this represented a paraesophageal hernia difficult to identify a communication to the lumen of the gastric cardia. 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 I do not believe that there is compromise of the esophageal lumen, however. Endoscopy or upper GI could be performed for further characterization. 3. Both kidneys are markedly atrophic. 4. Series of stents traversing the left external iliac vein and left SFV. 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 Chest pain r/o ACS Initial troponin 0.03 EKG without any ischemic changes, reviewed patient reports relief after Nitro given -continuous cardiac monitoring -Obtain serial cardiac enzymes and EKG -obtain TSH and lipid profile -Nitro prn chest pain Projectile vomiting Abnormal esophagus on imaging GERD s/p EGD 08/2017 showing grade C esophagitis and mild duodenitis -Consult GI, appreciate assistance -Speech therapy for swallow evaluation -PPI -IV antiemetics prn ESRD on HD TTHSat Status post hemodialysis today with 4.8 L removed -Consult nephrology, appreciate assistance Diabetes, type II, chronic, not well controlled Diabetic neuropathy Blood sugar 302 -Obtain hemoglobin A1c level -Accu-Cheks and insulin sliding scale -resume home Gabapentin Leukocytosis, possibly reactive -Patient is afebrile, does not appear septic -Continue to monitor white count -Monitor vitals Hypotensive -resume home Midodrine Hx of CVA with left sided weakness and contractures Chronically debilitated -PT/OT eval/tx Bipolar Schizophrenia -resume home meds DVT prophylaxis -Heparin subcu
[2017-12-23] MEDS: Escitalopram 10 MG Tablet PO SCH (10:17)
[2017-12-23] MEDS: Senna/Docusate Sodium 8.6/50 MG Tablet PO SCH ×2 (10:18→20:51)
[2017-12-23] MEDS: risperiDONE 0.5 MG ODT PO SCH ×2 (10:19→20:51)
--- NOTE | 2017-12-23 11:28 | P.CONGI ---
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 This patient presented to [facility] from a local rehab center with complaints of burning chest wall pain while undergoing dialysis. Patient states that this discomfort is described as burning and intermittent, associated with nausea. He states onset of burning epigastric pain, chest wall pain 1 week ago accompanied by dark brown emesis. He endorses that he experiences this discomfort at least twice daily. States pain is increased after meals and accompanied by vomiting after meals. Patient has had multiple episodes of projectile vomiting in the emergency room. CT of the abdomen and pelvis done on admission revealed the followin. Diffuse hepatic fatty infiltration. 2. 5 cm cystic structure possibly within the wall of the distal esophagus. Initially I thought this represented a paraesophageal hernia difficult to identify a communication to the lumen of the gastric cardia. 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 I do not believe that there is compromise of the esophageal lumen, however. Endoscopy or upper GI could be performed for further characterization. Our service has been consulted to evaluate patient's projectile vomiting of dark brown emesis, abnormal esophagus and burning chest wall/epigastric pain. 09/19/2017 EGD revealed the following findings: 1. Grade C esophagitis biopsy from the distal esophagus 2. Mild duodenitis biopsy from the antrum to rule out H. pylori Stomach normal 3. Retroflexed views revealed no abnormalities Home medication includes omeprazole 20 mg p.o. daily. Patient denied any known use of NSAIDs or aspirin. <Ángela Garcia - Last Filed: 12/23/17 11:15> Review of Systems All other systems reviewed negative except as stated in HPI <Ángela Garcia - Last Filed: 12/23/17 11:15> PMFSH - History History Provided By: Patient - Medical History Medical History: Medical History (Last Reviewed 12/23/17 @ 08:12 by Jd Garcia) AV (arteriovenous fistula) Anxiety Benign prostatic hyperplasia Bipolar disorder Cerebral infarction Chronic kidney disease Contracture, left hand Dysphagia Dysphagia, oropharyngeal phase End stage renal disease Esophagitis Gastroesophageal reflux disease Heart failure Hyperlipidemia Hypothyroidism Iron deficiency anemia Mood disorder Muscle weakness Osteoporosis Peripheral vascular disease Renal dialysis status Schizophrenia Type 2 diabetes mellitus - Surgical History Surgical History: Surgical History (Last Reviewed 12/23/17 @ 08:12 by Jd Garcia) H/O cardiac catheterization - Family History Family History: Family History (Last Reviewed 12/22/17 @ 17:46 by Millie Luna) Other No family history of cardiac disease - Tobacco History Second Hand Smoke Exposure: No Smoking Status: Never smoker - Alcohol History How Often Do You Have a Drink Containing Alcohol: Never - Substance Use History Substance History: No History of Abuse - Travel History Recent Travel in the [place] Within the Last 8 Weeks: No Recent Travel Out of the Country Within the Last 8 Weeks: No - Immunization History Tetanus Immunization: Unsure <Ángela Garcia - Last Filed: 12/23/17 11:15> - Medical History Medical History: Medical History (Last Reviewed 12/23/17 @ 08:12 by Jd Garcia) AV (arteriovenous fistula) Anxiety Benign prostatic hyperplasia Bipolar disorder Cerebral infarction Chronic kidney disease Contracture, left hand Dysphagia Dysphagia, oropharyngeal phase End stage renal disease Esophagitis Gastroesophageal reflux disease Heart failure Hyperlipidemia Hypothyroidism Iron deficiency anemia Mood disorder Muscle weakness Osteoporosis Peripheral vascular disease Renal dialysis status Schizophrenia Type 2 diabetes mellitus - Surgical History Surgical History: Surgical History (Last Reviewed 12/23/17 @ 08:12 by Jd Garcia) H/O cardiac catheterization - Family History Family History: Family History (Last Reviewed 12/22/17 @ 17:46 by Millie Luna) Other No family history of cardiac disease <Sarwat Rain - Last Filed: 12/23/17 19:17> Medications and Allergies Active Medications: Active Medications Al Hydroxide/Mg Hydroxide (Milk Of Magnesia Liq) 30 ml PO Q12H PRN PRN Reason: Mild Constipation Bisacodyl (Dulcolax Supp) 10 mg RECTAL DAILY PRN PRN Reason: SEVERE CONSITIPATION Cinacalcet (Sensipar) 30 mg PO DAILY [facility] Last Admin: 12/23/17 10:18 Dose: Not Given Dextrose (D50w Vial) 50 ml IV.PUSH UNSCH PRN PRN Reason: PER HYPOGLYCEMIA PROTOCOL Escitalopram Oxalate (Lexapro) 10 mg PO DAILY [facility] Last Admin: 12/23/17 10:17 Dose: Not Given Gabapentin (Neurontin) 200 mg PO HS [facility] Last Admin: 12/22/17 21:08 Dose: 200 mg Glucagon (Glucagon Inj) 1 mg OTHER PRN PRN PRN Reason: for Hypoglycemia Protocol Sodium Chloride (Ns Inj) 500 mls @ 0 mls/hr IV.SIG BOLUS [facility] Last Infusion: 12/22/17 13:49 Dose: Infused Pantoprazole Sodium 80 mg/ (Sodium Chloride) 100 mls @ 10 mls/hr IV.CONT Q10H [facility] Last Admin: 12/23/17 04:14 Dose: 10 mls/hr Sodium Chloride (Ns Inj) 500 mls @ 0 mls/hr IV.SIG BOLUS [facility] Insulin Aspart (Novolog Insulin Correctional Sugar Inj) 0 unit SQ Q6HR [facility]; Protocol Last Admin: 12/23/17 06:31 Dose: Not Given Insulin Detemir (Levemir Inj) 5 unit SQ BID [facility] Last Admin: 12/23/17 10:17 Dose: Not Given Lactulose (Lactulose Liq) 30 ml PO DAILY PRN PRN Reason: SEVERE CONSITIPATION Lamotrigine (Lamictal) 200 mg PO [facility] Last Admin: 12/22/17 21:08 Dose: 200 mg Midodrine (Proamatine) 10 mg PO TID [facility] Last Admin: 12/23/17 10:18 Dose: Not Given Mirtazapine (Remeron Soltab Odt) 15 mg PO [facility] Last Admin: 12/22/17 22:19 Dose: 15 mg Nitroglycerin (Nitrostat Sl) 0.4 mg SL Q5M PRN PRN Reason: CHEST PAIN Ondansetron HCl (Zofran Inj) 4 mg IV.PUSH Q6H PRN PRN Reason: NAUSEA OR VOMITING Last Admin: 12/23/17 08:22 Dose: 4 mg Pravastatin Sodium (Pravachol) 20 mg PO DAILY [facility] Last Admin: 12/23/17 10:18 Dose: Not Given Risperidone (Risperdal M-Tab) 0.5 mg PO BID [facility] Last Admin: 12/23/17 10:19 Dose: Not Given Senna/Docusate Sodium (Radha-Colace) 1 tab PO BID [facility] Last Admin: 12/23/17 10:18 Dose: Not Given Sennosides (Senokot) 17.2 mg PO Q12H PRN PRN Reason: Moderate Constipation Sodium Chloride (Ns Flush) 2 ml IV.FLUSH UNSCH PRN PRN Reason: FLUSH AFTER USING IV ACCESS Tamsulosin HCl (Flomax) 0.4 mg PO DAILY [facility] Last Admin: 12/23/17 10:17 Dose: Not Given <Ángela Garcia - Last Filed: 12/23/17 11:15> Active Medications: Active Medications Al Hydroxide/Mg Hydroxide (Milk Of Magnesia Liq) 30 ml PO Q12H PRN PRN Reason: Mild Constipation Bisacodyl (Dulcolax Supp) 10 mg RECTAL DAILY PRN PRN Reason: SEVERE CONSITIPATION Cinacalcet (Sensipar) 30 mg PO DAILY [facility] Last Admin: 12/23/17 10:18 Dose: Not Given Dextrose (D50w Vial) 50 ml IV.PUSH UNSCH PRN PRN Reason: PER HYPOGLYCEMIA PROTOCOL Escitalopram Oxalate (Lexapro) 10 mg PO DAILY [facility] Last Admin: 12/23/17 10:17 Dose: Not Given Gabapentin (Neurontin) 200 mg PO [facility] Last Admin: 12/22/17 21:08 Dose: 200 mg Glucagon (Glucagon Inj) 1 mg OTHER PRN PRN PRN Reason: for Hypoglycemia Protocol Hydromorphone HCl (Dilaudid Pf Inj) 0.2 mg IV.PUSH Q4H PRN PRN Reason: pain 8-10 or not taking po Last Admin: 12/23/17 18:46 Dose: 0.2 mg Pantoprazole Sodium 80 mg/ (Sodium Chloride) 100 mls @ 10 mls/hr IV.CONT Q10H [facility] Last Admin: 12/23/17 14:19 Dose: 10 mls/hr Insulin Detemir (Levemir Inj) 15 unit SQ BID [facility] Insulin Human Regular (Novolin R Correctional Sugar Inj) 0 units SQ Q4HR [facility]; Protocol Last Admin: 12/23/17 18:30 Dose: Not Given Lactulose (Lactulose Liq) 30 ml PO DAILY PRN PRN Reason: SEVERE CONSITIPATION Lamotrigine (Lamictal) 200 mg PO HS [facility] Last Admin: 12/22/17 21:08 Dose: 200 mg Midodrine (Proamatine) 10 mg PO TID [facility] Last Admin: 12/23/17 18:46 Dose: 10 mg Mirtazapine (Remeron Soltab Odt) 15 mg PO HS [facility] Last Admin: 12/22/17 22:19 Dose: 15 mg Nitroglycerin (Nitrostat Sl) 0.4 mg SL Q5M PRN PRN Reason: CHEST PAIN Ondansetron HCl (Zofran Inj) 4 mg IV.PUSH Q6H PRN PRN Reason: NAUSEA OR VOMITING Last Admin: 12/23/17 08:22 Dose: 4 mg Pravastatin Sodium (Pravachol) 20 mg PO DAILY [facility] Last Admin: 12/23/17 10:18 Dose: Not Given Risperidone (Risperdal M-Tab) 0.5 mg PO BID [facility] Last Admin: 12/23/17 10:19 Dose: Not Given Senna/Docusate Sodium (Radha-Colace) 1 tab PO BID [facility] Last Admin: 12/23/17 10:18 Dose: Not Given Sennosides (Senokot) 17.2 mg PO Q12H PRN PRN Reason: Moderate Constipation Sodium Chloride (Ns Flush) 2 ml IV.FLUSH UNSCH PRN PRN Reason: FLUSH AFTER USING IV ACCESS Tamsulosin HCl (Flomax) 0.4 mg PO DAILY [facility] Last Admin: 12/23/17 10:17 Dose: Not Given <Sarwat Rain E - Last Filed: 12/23/17 19:17> Allergies Allergy/AdvReac Type Severity Reaction Status Date / Time methadone Allergy Severe Anaphylaxis Verified 12/22/17 11:27 acetaminophen Allergy Unknown Anaphylaxis Verified 12/22/17 11:27 propoxyphene Allergy Unknown Anaphylaxis Verified 12/22/17 11:27 Home Medications Medication Instructions Recorded Confirmed Type ascorbic acid (vitamin C) [Vitamin 500 mg PO BID 09/14/17 12/22/17 History C] bisacodyl 5 mg PO TID PRN 09/14/17 12/22/17 History cinacalcet [Sensipar] 30 mg PO DAILY 09/14/17 12/22/17 History escitalopram oxalate 10 mg PO DAILY 09/14/17 12/22/17 History gabapentin 200 mg PO HS 09/14/17 12/22/17 History hydroxyzine HCl 25 mg PO TID-QID PRN 09/14/17 12/22/17 History insulin aspart U-100 [Novolog See Label Instructions .ROUTE 09/14/17 12/22/17 History U-100 Insulin aspart] .COMPLEX lamotrigine [Lamictal] 200 mg PO HS 09/14/17 12/22/17 History mirtazapine 15 mg PO HS 09/14/17 12/22/17 History multivitamin 1 tab PO DAILY 09/14/17 12/22/17 History omeprazole 20 mg PO DAILY 09/14/17 12/22/17 History ondansetron HCl [Zofran] 8 mg PO Q6HR PRN 09/14/17 12/22/17 History polyethylene glycol 3350 17 g PO DAILY 09/14/17 12/22/17 History risperidone 0.5 mg PO BID 09/14/17 12/22/17 History sevelamer carbonate [Renvela] 2,400 mg PO AC 09/14/17 12/22/17 History tamsulosin [Flomax] 0.4 mg PO DAILY 09/14/17 12/22/17 History tramadol 50 mg PO Q6H PRN 09/14/17 12/22/17 History trazodone 150 mg PO HS 09/14/17 12/22/17 History ferrous sulfate 325 mg PO TID 11/18/17 12/22/17 History insulin glargine [Lantus U-100 10 unit SUB-Q DAILY 11/18/17 12/22/17 History Insulin] lovastatin 20 mg PO DAILY 11/18/17 12/22/17 History midodrine 10 mg PO TID 11/18/17 12/22/17 History Exam Vital signs: Vital Signs 12/22/17 11:18 12/22/17 11:55 12/22/17 12:40 Temperature 97.9 F Pulse Rate 111 H 102 H Respiratory Rate 22 22 Blood Pressure 119/73 Pulse Oximetry 98 95 100 12/22/17 12:44 12/22/17 17:30 12/22/17 20:00 Temperature 97.4 F L Pulse Rate 105 H 98 H 103 H Respiratory Rate 16 16 Blood Pressure 101/66 105/62 110/64 Pulse Oximetry 98 97 96 12/22/17 23:42 12/23/17 04:14 12/23/17 04:41 Temperature 98.5 F 98.2 F Pulse Rate 101 H 107 H Respiratory Rate 14 18 Blood Pressure 96/68 L 90/64 L 81/49 L Pulse Oximetry 95 85 L 12/23/17 05:42 12/23/17 07:43 12/23/17 11:07 Temperature 97.9 F 98.4 F Pulse Rate 99 H 91 H 93 H Respiratory Rate 16 18 24 Blood Pressure 100/71 101/66 99/61 L Pulse Oximetry 99 98 96 Intake & Output 12/22/17 12/23/17 12/23/17 18:59 06:59 18:59 Intake Total 500 / 500 Output Total 600 / 600 Balance 500 / 500 -600 / -600 Weight 81.647 kg 81.647 kg Intake: IV 500 / 500 NS Inj 500 ML @ Wide Open IV. 500 / 500 SIG BOLUS [facility] Rx#:[id number] Output: Emesis 600 / 600 Other: # Emeses 4 # Oral Regurgitations 2 Weight On Admission 81.647 kg - Constitutional mild distress - Routine HEENT Exam Head: Present: normocephalic - Routine Respiratory Exam Present: CTA bilaterally. Absent: accessory muscle use - Routine Abdominal Exam Present: soft, normoactive bowel sounds. Absent: tenderness, distended, guarding, firm - Routine Extremities Exam Present: pulses intact - Routine Skin Exam Present: dry, warm - Routine Neurological Exam Present: alert - Routine Psychiatric Exam Present: normal affect, cooperative <GarciaÁngela - Last Filed: 12/23/17 11:15> Vital signs: Vital Signs 12/22/17 20:00 12/22/17 23:42 12/23/17 04:14 Temperature 97.4 F L 98.5 F 98.2 F Pulse Rate 103 H 101 H 107 H Respiratory Rate 16 14 18 Blood Pressure 110/64 96/68 L 90/64 L Pulse Oximetry 96 95 85 L 12/23/17 04:41 12/23/17 05:42 12/23/17 07:43 Temperature 97.9 F Pulse Rate 99 H 91 H Respiratory Rate 16 18 Blood Pressure 81/49 L 100/71 101/66 Pulse Oximetry 99 98 12/23/17 09:00 12/23/17 11:07 12/23/17 12:00 Temperature 98.4 F 98.6 F Pulse Rate 93 H 93 H 88 Respiratory Rate 24 21 Blood Pressure 99/61 L 115/70 Pulse Oximetry 96 99 12/23/17 12:10 12/23/17 16:00 Temperature 98.5 F Pulse Rate 91 H Respiratory Rate 26 H Blood Pressure 92/66 L Pulse Oximetry 96 100 Intake & Output 12/23/17 12/23/17 12/24/17 06:59 18:59 06:59 Intake Total 600 / 600 1250 / 1250 Output Total 600 / 600 150 / 150 Balance -600 / -600 450 / 450 1250 / 1250 Weight 81.647 kg Intake: IV 600 / 600 1250 / 1250 Protonix Inj 80 MG In NS Inj 100 / 100 100 ML @ 10 mls/hr IV.CONT Q10H [facility] Rx#:[id number] Sodium Chloride 3% Inj 250 ML @ 250 / 250 100 mls/hr IV.SIG ONCE ONE Rx# :[id number] Alburx 5% Inj 500 ML @ 250 mls/ 500 / 500 hr IV.SIG STAT STA Rx#:[id number] NS Inj 500 ML @ Wide Open IV. 500 / 500 500 / 500 SIG BOLUS FLAQUITA Rx#:[id number] Output: Urine 0 / 0 Emesis 600 / 600 Gastric Drainage 150 / 150 Left Nare 150 / 150 Other: # Emeses 4 # Oral Regurgitations 2 Weight On Admission 81.647 kg <Sarwat Rain E - Last Filed: 12/23/17 19:17> Results - Labs CBC & Chem 7: 12/23/17 04:28 12/23/17 03:59 Labs: Laboratory Results - last 24 hr 12/22/17 12/22/17 12/22/17 11:50 11:50 11:50 WBC 12.6 H RBC 5.09 Hgb 14.2 Hct 44.5 MCV 87.3 MCH 27.9 MCHC 32.0 RDW 17.6 H Plt Count 247 MPV 8.9 Neut % (Auto) 81.2 H Lymph % (Auto) 8.8 L [place] % (Auto) 9.5 H Eos % (Auto) 0.1 Baso % (Auto) 0.4 Neut # (Auto) 10.2 H Lymph # (Auto) 1.1 [place] # (Auto) 1.2 H Eos # (Auto) 0.0 Baso # (Auto) 0.1 WBC Differential . Differential Comment Auto diff final PT 11.2 INR 1.1 APTT 25.1 D-Dimer Quant (PE/DVT) 4.40 H Sodium 135 L Potassium 3.7 Chloride 90 L Carbon Dioxide 29.5 Anion Gap 16 H BUN 33 H Creatinine 6.83 H Estimated GFR 10 L POC Glucose Random Glucose 302 H Hemoglobin A1c Calcium 9.1 Magnesium 2.6 H Total Bilirubin 0.7 AST 15 ALT 17 Alkaline Phosphatase 138 H Total Creatine Kinase Troponin I 0.03 Total Protein 11.5 H Albumin 3.6 Triglycerides Cholesterol LDL Cholesterol, Calc HDL Cholesterol Cholesterol/HDL Ratio Beta-Hydroxybutyric Acd 1.73 H TSH 12/22/17 12/22/17 12/22/17 11:50 17:30 21:06 WBC RBC Hgb Hct MCV MCH MCHC RDW Plt Count MPV Neut % (Auto) Lymph % (Auto) [place] % (Auto) Eos % (Auto) Baso % (Auto) Neut # (Auto) Lymph # (Auto) [place] # (Auto) Eos # (Auto) Baso # (Auto) WBC Differential Differential Comment PT INR APTT D-Dimer Quant (PE/DVT) Sodium Potassium Chloride Carbon Dioxide Anion Gap BUN Creatinine Estimated GFR POC Glucose 376 H Random Glucose Hemoglobin A1c 7.5 H Calcium Magnesium Total Bilirubin AST ALT Alkaline Phosphatase Total Creatine Kinase Troponin I 0.04 Total Protein Albumin Triglycerides Cholesterol LDL Cholesterol, Calc HDL Cholesterol Cholesterol/HDL Ratio Beta-Hydroxybutyric Acd TSH 12/22/17 12/23/17 12/23/17 23:32 00:55 03:59 WBC RBC Hgb Hct MCV MCH MCHC RDW Plt Count MPV Neut % (Auto) Lymph % (Auto) [place] % (Auto) Eos % (Auto) Baso % (Auto) Neut # (Auto) Lymph # (Auto) [place] # (Auto) Eos # (Auto) Baso # (Auto) WBC Differential Differential Comment PT INR APTT D-Dimer Quant (PE/DVT) Sodium 135 L Potassium 3.9 Chloride 88 L Carbon Dioxide 33.0 H Anion Gap 14 BUN 43 H Creatinine 7.94 H Estimated GFR 8 L POC Glucose 339 H Random Glucose 320 H Hemoglobin A1c Calcium 9.3 Magnesium Total Bilirubin 0.5 AST 31 ALT 17 Alkaline Phosphatase 117 Total Creatine Kinase 77 106 Troponin I 0.04 0.05 Total Protein 9.9 H D Albumin 3.2 L Triglycerides 220 H Cholesterol 145 LDL Cholesterol, Calc 50 HDL Cholesterol 51.5 Cholesterol/HDL Ratio 2.81 Beta-Hydroxybutyric Acd TSH 1.070 12/23/17 12/23/17 04:28 08:21 WBC 13.3 H RBC 4.34 L Hgb 12.3 L Hct 37.8 L MCV 87.1 MCH 28.3 MCHC 32.5 RDW 18.1 H Plt Count 252 MPV 9.6 Neut % (Auto) 86.2 H Lymph % (Auto) 5.3 L [place] % (Auto) 8.2 H Eos % (Auto) 0.0 Baso % (Auto) 0.3 Neut # (Auto) 11.5 H Lymph # (Auto) 0.7 L [place] # (Auto) 1.1 H Eos # (Auto) 0.0 Baso # (Auto) 0.0 WBC Differential . Differential Comment Auto diff final PT INR APTT D-Dimer Quant (PE/DVT) Sodium Potassium Chloride Carbon Dioxide Anion Gap BUN Creatinine Estimated GFR POC Glucose 226 H Random Glucose Hemoglobin A1c Calcium Magnesium Total Bilirubin AST ALT Alkaline Phosphatase Total Creatine Kinase Troponin I Total Protein Albumin Triglycerides Cholesterol LDL Cholesterol, Calc HDL Cholesterol Cholesterol/HDL Ratio Beta-Hydroxybutyric Acd TSH - Imaging Impressions Chest X-Ray 12/22/17 11:32 CONCLUSION: 1. Right lower lung zone atelectasis/scarring. Chest CTA 12/22/17 12:38 CONCLUSION: 1. No evidence of pulmonary embolism 2. Abnormal appearance of the esophagus Abdomen/Pelvis CT 12/22/17 15:37 CONCLUSION: 1. Diffuse hepatic fatty infiltration. 2. 5 cm cystic structure possibly within the wall of the distal esophagus. Initially I thought this represented a paraesophageal hernia difficult to identify a communication to the lumen of the gastric cardia. 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 I do not believe that there is compromise of the esophageal lumen, however. Endoscopy or upper GI could be performed for further characterization. 3. Both kidneys are markedly atrophic. 4. Series of stents traversing the left external iliac vein and left SFV. <Ángela Garcia - Last Filed: 12/23/17 11:15> - Labs CBC & Chem 7: 12/23/17 13:15 12/23/17 03:59 Labs: Laboratory Results - last 24 hr 12/22/17 12/22/17 12/22/17 11:50 21:06 23:32 WBC RBC Hgb Hct MCV MCH MCHC RDW Plt Count MPV Neut % (Auto) Lymph % (Auto) [place] % (Auto) Eos % (Auto) Baso % (Auto) Neut # (Auto) Lymph # (Auto) [place] # (Auto) Eos # (Auto) Baso # (Auto) WBC Differential Differential Comment Puncture Site Patient Temperature O2 Saturation ABG pH ABG pCO2 ABG pO2 ABG HCO3 ABG O2 Content ABG Base Excess ABG Methemoglobin Joon Test Hemoglobin Carboxyhemoglobin O2 Delivery Device Liter Flow Critical Value Sodium Potassium Chloride Carbon Dioxide Anion Gap BUN Creatinine Estimated GFR POC Glucose 376 H Random Glucose Hemoglobin A1c 7.5 H Lactic Acid Calcium Total Bilirubin AST ALT Alkaline Phosphatase Total Creatine Kinase 77 Troponin I 0.04 Total Protein Albumin Triglycerides Cholesterol LDL Cholesterol, Calc HDL Cholesterol Cholesterol/HDL Ratio TSH 12/23/17 12/23/17 12/23/17 00:55 03:59 04:28 WBC 13.3 H RBC 4.34 L Hgb 12.3 L Hct 37.8 L MCV 87.1 MCH 28.3 MCHC 32.5 RDW 18.1 H Plt Count 252 MPV 9.6 Neut % (Auto) 86.2 H Lymph % (Auto) 5.3 L [place] % (Auto) 8.2 H Eos % (Auto) 0.0 Baso % (Auto) 0.3 Neut # (Auto) 11.5 H Lymph # (Auto) 0.7 L [place] # (Auto) 1.1 H Eos # (Auto) 0.0 Baso # (Auto) 0.0 WBC Differential . Differential Comment Auto diff final Puncture Site Patient Temperature O2 Saturation ABG pH ABG pCO2 ABG pO2 ABG HCO3 ABG O2 Content ABG Base Excess ABG Methemoglobin Joon Test Hemoglobin Carboxyhemoglobin O2 Delivery Device Liter Flow Critical Value Sodium 135 L Potassium 3.9 Chloride 88 L Carbon Dioxide 33.0 H Anion Gap 14 BUN 43 H Creatinine 7.94 H Estimated GFR 8 L POC Glucose 339 H Random Glucose 320 H Hemoglobin A1c Lactic Acid Calcium 9.3 Total Bilirubin 0.5 AST 31 ALT 17 Alkaline Phosphatase 117 Total Creatine Kinase 106 Troponin I 0.05 Total Protein 9.9 H D Albumin 3.2 L Triglycerides 220 H Cholesterol 145 LDL Cholesterol, Calc 50 HDL Cholesterol 51.5 Cholesterol/HDL Ratio 2.81 TSH 1.070 12/23/17 12/23/17 12/23/17 08:21 11:20 11:45 WBC RBC Hgb Hct MCV MCH MCHC RDW Plt Count MPV Neut % (Auto) Lymph % (Auto) [place] % (Auto) Eos % (Auto) Baso % (Auto) Neut # (Auto) Lymph # (Auto) [place] # (Auto) Eos # (Auto) Baso # (Auto) WBC Differential Differential Comment Puncture Site Right radial Patient Temperature 98.6 O2 Saturation 96 ABG pH 7.46 H ABG pCO2 51 H* ABG pO2 125 H ABG HCO3 36 H ABG O2 Content 15.7 ABG Base Excess 11.0 H ABG Methemoglobin 1.5 Joon Test Present Hemoglobin 11.5 L Carboxyhemoglobin 1.6 O2 Delivery Device Mask Liter Flow 6.00 Critical Value Yes Sodium Potassium Chloride Carbon Dioxide Anion Gap BUN Creatinine Estimated GFR POC Glucose 226 H 245 H Random Glucose Hemoglobin A1c Lactic Acid Calcium Total Bilirubin AST ALT Alkaline Phosphatase Total Creatine Kinase Troponin I Total Protein Albumin Triglycerides Cholesterol LDL Cholesterol, Calc HDL Cholesterol Cholesterol/HDL Ratio TSH 12/23/17 12/23/17 12/23/17 12:32 13:15 13:15 WBC 11.2 H RBC 3.86 L Hgb 10.9 L Hct 34.1 L MCV 88.2 MCH 28.2 MCHC 31.9 L RDW 18.2 H Plt Count 192 MPV 9.8 Neut % (Auto) 77.0 H Lymph % (Auto) 11.3 [place] % (Auto) 11.2 H Eos % (Auto) 0.1 Baso % (Auto) 0.4 Neut # (Auto) 8.6 H Lymph # (Auto) 1.3 [place] # (Auto) 1.3 H Eos # (Auto) 0.0 Baso # (Auto) 0.0 WBC Differential . Differential Comment Auto diff final Puncture Site Patient Temperature O2 Saturation ABG pH ABG pCO2 ABG pO2 ABG HCO3 ABG O2 Content ABG Base Excess ABG Methemoglobin Joon Test Hemoglobin Carboxyhemoglobin O2 Delivery Device Liter Flow Critical Value Sodium Potassium Chloride Carbon Dioxide Anion Gap BUN Creatinine Estimated GFR POC Glucose 265 H Random Glucose Hemoglobin A1c Lactic Acid 0.9 Calcium Total Bilirubin AST ALT Alkaline Phosphatase Total Creatine Kinase Troponin I Total Protein Albumin Triglycerides Cholesterol LDL Cholesterol, Calc HDL Cholesterol Cholesterol/HDL Ratio TSH <Sarwat Rain E - Last Filed: 12/23/17 19:17> Assessment and Plan (1) Nausea and vomiting Status: Acute Code(s): R11.2 - Nausea with vomiting, unspecified - Plan his patient is a 62-year-old male with a past medical history significant for 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 This patient presented to [facility] from a local rehab center with complaints of burning chest wall pain while undergoing dialysis. Patient states that this discomfort is described as burning and intermittent, associated with nausea. He states onset of burning epigastric pain, chest wall pain 1 week ago accompanied by dark brown emesis. He endorses that he experiences this discomfort at least twice daily. States pain is increased after meals and accompanied by vomiting after meals. Patient has had multiple episodes of projectile vomiting in the emergency room. CT of the abdomen and pelvis done on admission revealed the followin. Diffuse hepatic fatty infiltration. 2. 5 cm cystic structure possibly within the wall of the distal esophagus. Initially I thought this represented a paraesophageal hernia difficult to identify a communication to the lumen of the gastric cardia. 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 I do not believe that there is compromise of the esophageal lumen, however. Endoscopy or upper GI could be performed for further characterization. Our service has been consulted to evaluate patient's projectile vomiting of dark brown emesis, abnormal esophagus and burning chest wall/epigastric pain. 09/19/2017 EGD revealed the following findings: 1. Grade C esophagitis biopsy from the distal esophagus 2. Mild duodenitis biopsy from the antrum to rule out H. pylori Stomach normal 3. Retroflexed views revealed no abnormalities Home medication includes omeprazole 20 mg p.o. daily. Patient denied any known use of NSAIDs or aspirin. Hemoglobin 12.3 hematocrit 37.8 platelet count 252 INR 1.1 total bilirubin 0.5 AST 31 ALT 17 alk phos 117 albumin 3.2 Plan -N.p.o. -Obtain consent for EGD -EGD today -Avoid NSAIDs and anticoagulants -Zofran 4 mg IV as needed every 6 for nausea -Continue pantoprazole drip -Monitor for active bleeding -Supportive care -Further recommendations to follow This patient has been seen by myself and Dr. Rain and this note is written on his behalf - Attending Attestation Dr. Rain <Ángela Garcia - Last Filed: 12/23/17 11:15> (1) Nausea and vomiting Status: Acute Code(s): R11.2 - Nausea with vomiting, unspecified - Plan Patient seen and examined Agree with above H&P Monitor labs Continue with current supportive care Plan for an EGD tomorrow <Sarwat Rain E - Last Filed: 12/23/17 19:17> <Ángela Garcia - Last Filed: 12/23/17 11:15> (1) Nausea and vomiting Qualifiers: Vomiting type: unspecified Vomiting Intractability: non-intractable Qualified Code(s): R11.2 - Nausea with vomiting, unspecified <Sarwat Rain E - Last Filed: 12/23/17 19:17> (1) Nausea and vomiting Qualifiers: Vomiting type: unspecified Vomiting Intractability: non-intractable Qualified Code(s): R11.2 - Nausea with vomiting, unspecified
[2017-12-23] MEDS: Sodium Chlor 0.9% Inj 500 ML IV.SIG SCH (11:35)
[2017-12-23] MEDS ORDERED: Albumin Human 5% Inj 500 ML IV.SIG STA (11:55)
[2017-12-23] MEDS ORDERED: Albumin Human 5% Inj 250 ML IV.SIG ONE ×2 (12:03→12:04)
--- NOTE | 2017-12-23 13:09 | P.PN ---
Subjective Interval history: Patient was noted unresponsive and with low BP , davi was called 2 times in the morning . patient received 1 L bloused without improvement. Discussed with Dr Rios lpn rn hospice, trabnsfer patient to ICU, patient also vomited and likely aspiration PNA . Transferred to ICU Physical Exam Vital signs: Vital Signs 12/22/17 17:30 12/22/17 20:00 12/22/17 23:42 Temperature 97.4 F L 98.5 F Pulse Rate 98 H 103 H 101 H Respiratory Rate 16 16 14 Blood Pressure 105/62 110/64 96/68 L Pulse Oximetry 97 96 95 12/23/17 04:14 12/23/17 04:41 12/23/17 05:42 Temperature 98.2 F Pulse Rate 107 H 99 H Respiratory Rate 18 16 Blood Pressure 90/64 L 81/49 L 100/71 Pulse Oximetry 85 L 99 12/23/17 07:43 12/23/17 09:00 12/23/17 11:07 Temperature 97.9 F 98.4 F Pulse Rate 91 H 93 H 93 H Respiratory Rate 18 24 Blood Pressure 101/66 99/61 L Pulse Oximetry 98 96 12/23/17 12:10 Temperature Pulse Rate Respiratory Rate Blood Pressure Pulse Oximetry 96 Intake & Output 12/22/17 12/23/17 12/23/17 18:59 06:59 18:59 Intake Total 500 / 500 Output Total 600 / 600 Balance 500 / 500 -600 / -600 Weight 81.647 kg 81.647 kg Intake: IV 500 / 500 NS Inj 500 ML @ Wide Open IV. 500 / 500 SIG BOLUS FLAQUITA Rx#:[id number] Output: Emesis 600 / 600 Other: # Emeses 4 # Oral Regurgitations 2 Weight On Admission 81.647 kg Narrative: Gen appearance:Unresponsive frail AA male who appears much older than stated age, lethargic HEENT: dry mucous membranes. NECK: No JVD, trachea midline. Respiratory: equal chest rise.on simple face mask at 5LPM. No accessory muscle use. Cardiovascular: normal rate, regular rhythm. sinus. bp improving on my repeat evaluation. Abdomen: soft, nontender, nondistended. no guarding. Extremities: left groin AVF with + thrill. distal pulses 2+. Neuro: In bed, not responding to sternal rub, doesn't follow commands. Results - Labs CBC & Chem 7: 12/23/17 13:15 12/23/17 03:59 Laboratory Results - last 24 hr 12/22/17 12/22/17 12/22/17 11:50 17:30 21:06 WBC RBC Hgb Hct MCV MCH MCHC RDW Plt Count MPV Neut % (Auto) Lymph % (Auto) [place] % (Auto) Eos % (Auto) Baso % (Auto) Neut # (Auto) Lymph # (Auto) [place] # (Auto) Eos # (Auto) Baso # (Auto) WBC Differential Differential Comment Sodium Potassium Chloride Carbon Dioxide Anion Gap BUN Creatinine Estimated GFR POC Glucose 376 H Random Glucose Hemoglobin A1c 7.5 H Calcium Total Bilirubin AST ALT Alkaline Phosphatase Total Creatine Kinase Troponin I 0.04 Total Protein Albumin Triglycerides Cholesterol LDL Cholesterol, Calc HDL Cholesterol Cholesterol/HDL Ratio TSH 12/22/17 12/23/17 12/23/17 23:32 00:55 03:59 WBC RBC Hgb Hct MCV MCH MCHC RDW Plt Count MPV Neut % (Auto) Lymph % (Auto) [place] % (Auto) Eos % (Auto) Baso % (Auto) Neut # (Auto) Lymph # (Auto) [place] # (Auto) Eos # (Auto) Baso # (Auto) WBC Differential Differential Comment Sodium 135 L Potassium 3.9 Chloride 88 L Carbon Dioxide 33.0 H Anion Gap 14 BUN 43 H Creatinine 7.94 H Estimated GFR 8 L POC Glucose 339 H Random Glucose 320 H Hemoglobin A1c Calcium 9.3 Total Bilirubin 0.5 AST 31 ALT 17 Alkaline Phosphatase 117 Total Creatine Kinase 77 106 Troponin I 0.04 0.05 Total Protein 9.9 H D Albumin 3.2 L Triglycerides 220 H Cholesterol 145 LDL Cholesterol, Calc 50 HDL Cholesterol 51.5 Cholesterol/HDL Ratio 2.81 TSH 1.070 12/23/17 12/23/17 12/23/17 04:28 08:21 11:20 WBC 13.3 H RBC 4.34 L Hgb 12.3 L Hct 37.8 L MCV 87.1 MCH 28.3 MCHC 32.5 RDW 18.1 H Plt Count 252 MPV 9.6 Neut % (Auto) 86.2 H Lymph % (Auto) 5.3 L [place] % (Auto) 8.2 H Eos % (Auto) 0.0 Baso % (Auto) 0.3 Neut # (Auto) 11.5 H Lymph # (Auto) 0.7 L [place] # (Auto) 1.1 H Eos # (Auto) 0.0 Baso # (Auto) 0.0 WBC Differential . Differential Comment Auto diff final Sodium Potassium Chloride Carbon Dioxide Anion Gap BUN Creatinine Estimated GFR POC Glucose 226 H 245 H Random Glucose Hemoglobin A1c Calcium Total Bilirubin AST ALT Alkaline Phosphatase Total Creatine Kinase Troponin I Total Protein Albumin Triglycerides Cholesterol LDL Cholesterol, Calc HDL Cholesterol Cholesterol/HDL Ratio TSH 12/23/17 12:32 WBC RBC Hgb Hct MCV MCH MCHC RDW Plt Count MPV Neut % (Auto) Lymph % (Auto) [place] % (Auto) Eos % (Auto) Baso % (Auto) Neut # (Auto) Lymph # (Auto) [place] # (Auto) Eos # (Auto) Baso # (Auto) WBC Differential Differential Comment Sodium Potassium Chloride Carbon Dioxide Anion Gap BUN Creatinine Estimated GFR POC Glucose 265 H Random Glucose Hemoglobin A1c Calcium Total Bilirubin AST ALT Alkaline Phosphatase Total Creatine Kinase Troponin I Total Protein Albumin Triglycerides Cholesterol LDL Cholesterol, Calc HDL Cholesterol Cholesterol/HDL Ratio TSH Microbiology 12/23/17 00:55 Sputum - Expectorated Sputum Gram Stain - Final - Imaging Impressions Chest CTA 12/22/17 12:38 CONCLUSION: 1. No evidence of pulmonary embolism 2. Abnormal appearance of the esophagus Abdomen/Pelvis CT 12/22/17 15:37 CONCLUSION: 1. Diffuse hepatic fatty infiltration. 2. 5 cm cystic structure possibly within the wall of the distal esophagus. Initially I thought this represented a paraesophageal hernia difficult to identify a communication to the lumen of the gastric cardia. 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 I do not believe that there is compromise of the esophageal lumen, however. Endoscopy or upper GI could be performed for further characterization. 3. Both kidneys are markedly atrophic. 4. Series of stents traversing the left external iliac vein and left SFV. Assessment and Plan - Plan 62 yo M with ESRD and significant nausea/vomiting, found to have esophageal cyst on imaging, who presents with acute hypotension and altered mentation. Critically ill requiring emergent stabilization. Hypovolemic Shock Likely severe dehydration secondary to poor PO intake, HD fluid removal and nausea/vomiting. Note also patient had HD yesterday and had 4L volume removal on HD Received 1L NS Severe Metabolic alkalosis Hyponatremia Hypochloremia Severe dehydration as above - secondary to severe vomiting - typically this is renally adjusted naturally, but with ESRD, he is having trouble compensating for his severe alkalosis. This is causing a compensatory hypoventilation which could worsen his respiratory status. - IVF resuscitation however patient is on HD Hypoventilation - compensatory. will adjust metabolic derangements Acute metabolic encephalopathy - secondary to hypotension - improving with improved perfusion Lower extremity Paresthesias - likely secondary to hypotension in the setting of PAD - improving with improved perfusion - no concerning neurologic deficits Esophageal cyst - will delay EGD 24h and would aim to perform tomorrow as long as he has remained stable x 24h. Dysphagia Nausea Vomiting - place NGT for home meds - have cleared NGT with GI and they have given ok. - Speech eval. Transfer to ICU. Patient in critical condition with low BP and did not respond to IVF, coded 2 times today will need higher level of care, discussed with Dr Rios lpn rn hospice, patient transferred to ICU and lpn rn hospice consulted for further evaluation and care
[2017-12-23 13:35] LABS: ABG PCO2 51 mmHg (38-42); ABG PO2 125 mmHG (61-120)
[2017-12-23 13:36] LABS: Baso % (Auto) 0.4 % (0.0-2.0); Eos % (Auto) 0.1 % (0.0-4.0); Hematocrit 34.1 % (39.0-51.0); Hemoglobin 10.9 gm/dL (13.0-17.0); Lymph # (Auto) 1.3 th/mm3 (1.0-4.8); Lymph % (Auto) 11.3 % (9.0-44.0); Mean Corpuscular HGB Conc 31.9 % (32.0-36.0); Mean Corpuscular Hemoglobin 28.2 pg (27.0-34.0); Mean Corpuscular Volume 88.2 fL (80.0-100.0); Mean Platelet Volume 9.8 fL (7.0-11.0); Mono # (Auto) 1.3 th/mm3 (0.0-0.9); Mono % (Auto) 11.2 % (0.0-8.0); Neut # (Auto) 8.6 th/mm3 (1.8-7.7); Platelet Count 192 th/mm3 (150-450); Red Blood Count 3.86 mil/mm3 (4.50-5.90); Red Cell Distribution Width 18.2 % (11.6-17.2); White Blood Count 11.2 th/mm3 (4.0-11.0)
--- NOTE | 2017-12-23 14:05 | P.CONCC ---
History of Present Illness Service: Critical Care Medicine Consult date: 12/23/17 Requesting Physician: Verito Madrid Reason for Consult: hypotension Primary Care Provider: UNKNOWN Chief Complaint: Chest pain History of Present Illness: This is a 62yM with history of ESRD on HD who presents with multiple days of nausea and vomiting. initially admitted to [facility] status where he developed hypotension and acute altered mental status. rapid response called and patient emergently transferred to ICU. patient more awake on arrival to ICU: now answering questions and following commands. BP initially 70s/30s, which didn't respond to 1L crystalloid bolus downstairs. additional 500cc 5% albumin given. BP now 110s/60s. Notable hypochloremia, hyponatremia on labs. Severe metabolic alkalosis on ABG with compensatory hypoventilation. HD this morning with 4L volume removed. Full ROS unobtainable from the patient due to his acute mental status change- limited ROS negative for chest pain, SOB, diarrhea. +nausea/ vomiting. + toe pain: patient states his toes are tingling. no change in motor or sensation in his lower extremities. pulses are 2+. Review of Systems All other systems reviewed negative except as stated in HPI PMFSH - History History Provided By: Patient, Medical Record - Medical History Medical History: Medical History (Last Reviewed 12/23/17 @ 13:56 by Alvaro Wellington MD) AV (arteriovenous fistula) Anxiety Benign prostatic hyperplasia Bipolar disorder Cerebral infarction Chronic kidney disease Contracture, left hand Dysphagia Dysphagia, oropharyngeal phase End stage renal disease Esophagitis Gastroesophageal reflux disease Heart failure Hyperlipidemia Hypothyroidism Iron deficiency anemia Mood disorder Muscle weakness Osteoporosis Peripheral vascular disease Renal dialysis status Schizophrenia Type 2 diabetes mellitus - Surgical History Surgical History: Surgical History (Last Reviewed 12/23/17 @ 13:56 by Alvaro Wellington MD) H/O cardiac catheterization - Family History Family History: Family History (Last Reviewed 12/23/17 @ 13:56 by Alvaro Wellington MD) Other No family history of cardiac disease - Social History I have reviewed the patient's Social History: Yes - Tobacco History Second Hand Smoke Exposure: No Smoking Status: Never smoker - Alcohol History How Often Do You Have a Drink Containing Alcohol: Never - Substance Use History Substance History: No History of Abuse - Travel History Recent Travel in the [facility] Within the Last 8 Weeks: No Recent Travel Out of the Country Within the Last 8 Weeks: No - Immunization History Tetanus Immunization: Unsure Medications and Allergies Active Medications: Active Medications Al Hydroxide/Mg Hydroxide (Milk Of Magnesia Liq) 30 ml PO Q12H PRN PRN Reason: Mild Constipation Bisacodyl (Dulcolax Supp) 10 mg RECTAL DAILY PRN PRN Reason: SEVERE CONSITIPATION Cinacalcet (Sensipar) 30 mg PO DAILY [facility] Last Admin: 12/23/17 10:18 Dose: Not Given Dextrose (D50w Vial) 50 ml IV.PUSH UNSCH PRN PRN Reason: PER HYPOGLYCEMIA PROTOCOL Escitalopram Oxalate (Lexapro) 10 mg PO DAILY [facility] Last Admin: 12/23/17 10:17 Dose: Not Given Gabapentin (Neurontin) 200 mg PO [facility] Last Admin: 12/22/17 21:08 Dose: 200 mg Glucagon (Glucagon Inj) 1 mg OTHER PRN PRN PRN Reason: for Hypoglycemia Protocol Pantoprazole Sodium 80 mg/ (Sodium Chloride) 100 mls @ 10 mls/hr IV.CONT Q10H [facility] Last Admin: 12/23/17 04:14 Dose: 10 mls/hr Albumin Human (Alburx 5% Inj) 500 mls @ 250 mls/hr IV.SIG STAT STA Stop: 12/23/17 13:54 Sodium Chloride (Sodium Chloride 3% Inj) 250 mls @ 100 mls/hr IV.SIG ONCE ONE Stop: 12/23/17 16:29 Insulin Detemir (Levemir Inj) 15 unit SQ BID [facility] Insulin Human Regular (Novolin R Correctional Sugar Inj) 0 units SQ Q4HR [facility]; Protocol Lactulose (Lactulose Liq) 30 ml PO DAILY PRN PRN Reason: SEVERE CONSITIPATION Lamotrigine (Lamictal) 200 mg PO [facility] Last Admin: 12/22/17 21:08 Dose: 200 mg Midodrine (Proamatine) 10 mg PO TID [facility] Last Admin: 12/23/17 10:18 Dose: Not Given Mirtazapine (Remeron Soltab Odt) 15 mg PO [facility] Last Admin: 12/22/17 22:19 Dose: 15 mg Nitroglycerin (Nitrostat Sl) 0.4 mg SL Q5M PRN PRN Reason: CHEST PAIN Ondansetron HCl (Zofran Inj) 4 mg IV.PUSH Q6H PRN PRN Reason: NAUSEA OR VOMITING Last Admin: 12/23/17 08:22 Dose: 4 mg Pravastatin Sodium (Pravachol) 20 mg PO DAILY [facility] Last Admin: 12/23/17 10:18 Dose: Not Given Risperidone (Risperdal M-Tab) 0.5 mg PO BID [facility] Last Admin: 12/23/17 10:19 Dose: Not Given Senna/Docusate Sodium (Radha-Colace) 1 tab PO BID [facility] Last Admin: 12/23/17 10:18 Dose: Not Given Sennosides (Senokot) 17.2 mg PO Q12H PRN PRN Reason: Moderate Constipation Sodium Chloride (Ns Flush) 2 ml IV.FLUSH UNSCH PRN PRN Reason: FLUSH AFTER USING IV ACCESS Tamsulosin HCl (Flomax) 0.4 mg PO DAILY [facility] Last Admin: 12/23/17 10:17 Dose: Not Given Allergies Allergy/AdvReac Type Severity Reaction Status Date / Time methadone Allergy Severe Anaphylaxis Verified 12/22/17 11:27 acetaminophen Allergy Unknown Anaphylaxis Verified 12/22/17 11:27 propoxyphene Allergy Unknown Anaphylaxis Verified 12/22/17 11:27 Home Medications Medication Instructions Recorded Confirmed Type ascorbic acid (vitamin C) [Vitamin 500 mg PO BID 09/14/17 12/22/17 History C] bisacodyl 5 mg PO TID PRN 09/14/17 12/22/17 History cinacalcet [Sensipar] 30 mg PO DAILY 09/14/17 12/22/17 History escitalopram oxalate 10 mg PO DAILY 09/14/17 12/22/17 History gabapentin 200 mg PO HS 09/14/17 12/22/17 History hydroxyzine HCl 25 mg PO TID-QID PRN 09/14/17 12/22/17 History insulin aspart U-100 [Novolog See Label Instructions .ROUTE 09/14/17 12/22/17 History U-100 Insulin aspart] .COMPLEX lamotrigine [Lamictal] 200 mg PO HS 09/14/17 12/22/17 History mirtazapine 15 mg PO HS 09/14/17 12/22/17 History multivitamin 1 tab PO DAILY 09/14/17 12/22/17 History omeprazole 20 mg PO DAILY 09/14/17 12/22/17 History ondansetron HCl [Zofran] 8 mg PO Q6HR PRN 09/14/17 12/22/17 History polyethylene glycol 3350 17 g PO DAILY 09/14/17 12/22/17 History risperidone 0.5 mg PO BID 09/14/17 12/22/17 History sevelamer carbonate [Renvela] 2,400 mg PO AC 09/14/17 12/22/17 History tamsulosin [Flomax] 0.4 mg PO DAILY 09/14/17 12/22/17 History tramadol 50 mg PO Q6H PRN 09/14/17 12/22/17 History trazodone 150 mg PO HS 09/14/17 12/22/17 History ferrous sulfate 325 mg PO TID 11/18/17 12/22/17 History insulin glargine [Lantus U-100 10 unit SUB-Q DAILY 11/18/17 12/22/17 History Insulin] lovastatin 20 mg PO DAILY 11/18/17 12/22/17 History midodrine 10 mg PO TID 11/18/17 12/22/17 History Physical Exam Vital signs: Vital Signs 12/22/17 17:30 12/22/17 20:00 12/22/17 23:42 Temperature 36.3 C L 36.9 C Pulse Rate 98 H 103 H 101 H Respiratory Rate 16 16 14 Blood Pressure 105/62 110/64 96/68 L Pulse Oximetry 97 96 95 12/23/17 04:14 12/23/17 04:41 12/23/17 05:42 Temperature 36.8 C Pulse Rate 107 H 99 H Respiratory Rate 18 16 Blood Pressure 90/64 L 81/49 L 100/71 Pulse Oximetry 85 L 99 12/23/17 07:43 12/23/17 09:00 12/23/17 11:07 Temperature 36.6 C 36.9 C Pulse Rate 91 H 93 H 93 H Respiratory Rate 18 24 Blood Pressure 101/66 99/61 L Pulse Oximetry 98 96 12/23/17 12:10 Temperature Pulse Rate Respiratory Rate Blood Pressure Pulse Oximetry 96 Intake & Output 12/22/17 12/23/17 12/23/17 18:59 06:59 18:59 Intake Total 500 / 500 Output Total 600 / 600 Balance 500 / 500 -600 / -600 Weight 81.647 kg 81.647 kg Intake: IV 500 / 500 NS Inj 500 ML @ Wide Open IV. 500 / 500 SIG BOLUS FLAQUITA Rx#:[id number] Output: Emesis 600 / 600 Other: # Emeses 4 # Oral Regurgitations 2 Weight On Admission 81.647 kg Narrative: gen: frail male who appears much older than stated age, lying in bed. heent: nc. at. perrl. mucous membranes dry. neck: no jvd. trachea midline. chest: equal chest rise. simple face mask at 5LPM. no accessory muscle use. cv: normal rate, regular rhythm. sinus. bp improving on my repeat evaluation. abd: soft, nontender, nondistended. no guarding. extr: left groin AVF with + thrill. distal pulses 2+. neuro: RASS -1. arouses and follows commands. NICHOLE 5/5 in all extremities. sensation grossly intact. no focal deficits. Septic Shock Reassessment Septic shock perfusion: reassessment completed Assessment and Plan - Assessment and Plan Plan: Assessment: 62yM with ESRD and significant nausea/vomiting, found to have esophageal cyst on imaging, who presents with acute hypotension and altered mentation. Critically ill requiring emergent stabilization. Hypovolemic Shock - likely severe dehydration secondary to poor PO intake and nausea/vomiting. - complicated by volume removal on HD - will add 500cc 5% albumin - start mivf of NS @ 84cc/hr. Severe Metabolic alkalosis Hyponatremia Hypochloremia - secondary to severe vomiting - typically this is renally adjusted naturally, but with ESRD, he is having trouble compensating for his severe alkalosis. This is causing a compensatory hypoventilation which could worsen his respiratory status. - will give 250cc bolus of 3% saline- this will restore depleted chloride stores , and help correct pH balance and strong ion difference. It will also help retain intravascular volume in the setting of severe dehydration. Hypoventilation - compensatory. will adjust metabolic derrangements Acute metabolic encephalopathy - secondary to hypotension - improving with improved perfusion Lower extremity Paresthesias - likely secondary to hypotension in the setting of PAD - improving with improved perfusion - no concerning neurologic deficits Esophageal cyst - will delay EGD 24h and would aim to perform tomorrow as long as he has remained stable x 24h. Dysphagia Nausea Vomiting - place NGT for home meds - have cleared NGT with GI and they have given ok. - Speech eval. Admit to ICU. Critical care time: 45 minutes, exclusive of separately billable procedures.
[2017-12-23] MEDS: Insulin NovoLIN Regular Correctional Sugar Inj SQ SCH ×2 (18:30→20:52)
[2017-12-23] MEDS: HYDROmorphone PF Inj 0.5 MG/0.5 ML Syringe IV.PUSH PRN (18:46)
[2017-12-23] MEDS ORDERED: Sod Chloride 0.9% Inj 1,000 ML OTHER PRN ×2 (19:22)
[2017-12-23] MEDS ORDERED: Gelatin 12 MM/7 MM Topical Foam TOPICAL PRN (19:22)
[2017-12-23] MEDS ORDERED: Sod Chloride 0.9% Inj 1,000 ML IV.CONT PRN (19:22)
[2017-12-23] MEDS ORDERED: Heparin 10,000 UNITS/10 ML Vial (for IV use) OTHER PRN ×2 (19:22)
[2017-12-23] MEDS: Insulin Detemir Inj 1,000 UNIT/10 ML Vial SQ SCH (20:50)
[2017-12-23] MEDS: lamoTRIgine 100 MG Tablet PO SCH (21:16)
--- NOTE | 2017-12-23 23:39 | MB ---
cc: Lizeth Bell MD DATE: 12/23/2017 REASON FOR CONSULTATION: End-stage renal disease, on hemodialysis for management. HISTORY OF PRESENT ILLNESS: This is a 62-year-old male known to me from before with past medical history of cerebrovascular accident, history of hypertension, congestive heart failure, diabetes mellitus, gastroesophageal reflux disease, schizophrenia with bipolar disorder, end-stage renal disease, on hemodialysis, was sent to the ER yesterday from dialysis because of complaint of chest pain and upper abdominal pain. I was called to see the patient for the management of dialysis. He has been on hemodialysis, Tuesday, and Tuesday. The patient went to regular dialysis yesterday and he was complaining of epigastric pain and then later on toward the end of dialysis, he was complaining of chest pain. The patient has workup done here. He has initially a CTA done, which shows that he does not have any pulmonary embolism and there was abnormal appearance of the esophagus. He has a CT scan of the abdomen and pelvis done which shows that he has diffuse hepatic fatty infiltration, cystic mass 5 cm in the distal esophagus, possible paraesophageal hernia. Both kidneys are markedly atrophic with stents and left sternal iliac vein and left superficial femoral vein. PAST MEDICAL HISTORY: Hypertension, cerebrovascular accident, diabetes mellitus, gastroesophageal reflux disease, hypothyroidism, schizophrenia, bipolar disorder, chronic anemia, end-stage renal disease on hemodialysis, hyperlipidemia. PAST SURGICAL HISTORY: History of thigh AV graft, multiple surgeries for revascularization of both legs, cardiac catheterization, multiple endoscopies. REVIEW OF SYSTEMS: The patient is complaining of malaise. Denies any headache, dizziness or blurring of vision. Has mild to moderate shortness of breath. When I saw him, he was on the BiPAP, and has a nasogastric tube with intermittent suction. He complains of some upper abdominal pain. Chest pain is better. No history of fever. SOCIAL HISTORY: The patient has history of cerebrovascular accident and lives in a nursing facility. He has no history of smoking or alcoholism. FAMILY HISTORY: Noncontributory. ALLERGIES: 1. METHADONE. 2. ACETAMINOPHEN. 3. PROPOXYPHENE. MEDICATIONS: Currently, he is on the following medications: 1. Dulcolax suppositories. 2. Sensipar 30 mg once a day. 3. Lexapro 10 mg once a day. 4. Gabapentin 200 mg at bedtime. 5. Dilaudid 0.2 mg q.4 hours. 6. Insulin with meals, Detemir 15 units subcutaneous b.i.d. 7. Insulin regular sliding scale. 8. Lactulose as needed. 9. Midodrine 10 mg t.i.d. 10. Lamictal 200 mg at bedtime. 11. Remeron 15 mg at bedtime. 12. Pravachol 20 mg once a day. 13. Risperidone 0.5 mg b.i.d. 14. Radha-Colace 1 tablet b.i.d. 15. Flomax 0.4 mg daily. PHYSICAL EXAMINATION: GENERAL: Awake, alert. He is in mild to moderate respiratory distress. VITAL SIGNS: Blood pressure recorded is 92/66, temperature is 98.5, oxygen saturation 100%. HEENT: Pupils are mid constricted. Nonicteric sclerae. Conjunctivae pale. NECK: Supple. JVD is not elevated. LUNGS: The patient has bilateral decreased air entry with dizziness and scattered wheezing. HEART: S1, S2, regular. ABDOMEN: Distended, soft, lax. There are decreased bowel sounds. Mild tenderness in the epigastric area. There is no rebound. Positive bowel sounds. EXTREMITIES: He has bilateral contracted extremities and both lower legs have chronic scaling and changes of a stent and some discoloration of his left foot toes, and both feet are cold. INVESTIGATIONS: WBC count is 11.2, hemoglobin 10.9, platelet count of 192. Sodium 135, potassium 3.9, chloride 88, bicarbonate 33, BUN is 43, creatinine 7.94, glucose 265, calcium 9.3, AST 31, ALT is 17, alkaline phosphatase 170. Troponin 0.05, total protein 9.9, albumin is 3.2. TSH is 1.07. Arterial blood gas showing pH of 7.46, pCO2 of 51, pO2 of 125. Blood cultures and sputum culture are still pending. CT angiogram showing there is no pulmonary embolism, abnormality of the esophagus. CT of the pelvis was done. Abdomen and pelvis was done, which shows hepatic fatty infiltration 5 cm cystic structure in the wall of the distal esophagus, possibility of paraesophageal hernia or duplication cyst. Both kidneys are atrophic. ASSESSMENT AND PLAN: 1. Hypoxemia with possibility of fluid overload, potential possibility of some pulmonary congestion. 2. Hypotension with history of nausea, vomiting, possibly hypovolemia. 3. End-stage renal disease on hemodialysis. 4. Anemia. 5. History of chest pain. 6. History of bipolar disorder and schizophrenia. 7. The patient has been getting some fluid and albumin for low blood pressure. He chronically runs blood pressure on the lower side. He is also noted, cultures are pending, unlikely to be a sepsis. There is also a wound in the back, which is a decubitus ulcer. 8. Hemodialysis is due for tomorrow. I will arrange for the dialysis tomorrow. Follow the culture results. Thank you for the consultation. I will follow the patient while he is in the hospital. MD LITA Green/sadia/marli , 07:22 PM , 07:37 PM
[2017-12-24] MEDS: Insulin NovoLIN Regular Correctional Sugar Inj SQ SCH ×6 (00:06→21:35)
[2017-12-24] MEDS: HYDROmorphone PF Inj 0.5 MG/0.5 ML Syringe IV.PUSH PRN ×2 (00:09→13:07)
[2017-12-24] MEDS: Pantoprazole Inj 80 MG in Sodium Chlor 0.9% Inj 100 ML IV.CONT SCH ×2 (00:27→13:08)
[2017-12-24 08:09] LABS: Hematocrit 30.9 % (39.0-51.0); Hemoglobin 9.5 gm/dL (13.0-17.0); Mean Corpuscular Hemoglobin 27.6 pg (27.0-34.0); Mean Platelet Volume 8.8 fL (7.0-11.0); Platelet Count 198 th/mm3 (150-450); Red Blood Count 3.44 mil/mm3 (4.50-5.90); Red Cell Distribution Width 17.6 % (11.6-17.2); White Blood Count 13.3 th/mm3 (4.0-11.0)
[2017-12-24 08:10] LABS: Mean Corpuscular HGB Conc 30.7 % (32.0-36.0)
[2017-12-24] MEDS: Escitalopram 10 MG Tablet PO SCH (08:21)
[2017-12-24] MEDS: risperiDONE 0.5 MG ODT PO SCH ×2 (08:22→21:16)
[2017-12-24] MEDS: Insulin Detemir Inj 1,000 UNIT/10 ML Vial SQ SCH ×2 (08:22→21:36)
[2017-12-24] MEDS: Senna/Docusate Sodium 8.6/50 MG Tablet PO SCH ×2 (08:22→21:16)
[2017-12-24 08:40] LABS: Calcium 8.8 mg/dL (8.5-10.1); Carbon Dioxide 33.9 meq/L (21.0-32.0); Magnesium 2.7 mg/dL (1.5-2.5); Phosphorus 6.3 mg/dL (2.5-4.9); Potassium 3.8 meq/L (3.5-5.1); Troponin I 0.07 ng/mL (0.02-0.05)
--- NOTE | 2017-12-24 09:29 | MG ---
cc: Mohsen Suárez MD EEG# [id number] INDICATION: A 62-year-old man bipolar stroke, schizophrenia. MEDICATIONS: Lamictal, Neurontin. DESCRIPTION: Diffuse 7-8 Hz rhythm is noted, 60 microvolts. No hemisphere asymmetry is seen. He appears to fall asleep, does not quite reach stage II sleep. Photic stimulation is performed without significant posterior driving. IMPRESSION: Some mild diffuse theta slowing. Otherwise, a normal electroencephalogram. No focal abnormality was noted. No seizure activity was seen. MD SALVATORE Perez/pk , 08:53 AM , 08:57 AM
--- NOTE | 2017-12-24 10:50 | OTSOAPIP ---
TIME SESSION COMPLETED: 1020 RECEIVED OCCUPATIONAL THERAPY ORDER. ATTEMPTED TO SEE PATIENT, HOWEVER PATIENT WAS OFF THE FLOOR IN OR FOR EGD. WILL REATTEMPT NEXT AVAILABLE DAY. INTERDISCIPLINARY COMMUNICATION: SPOKE WITH NURSING Therapist: Makayla Salazar OTR/Velasquez Signature on file
[2017-12-24] MEDS ORDERED: Phenylephrine/NS 1000 MCG/10ML Syringe IV.PUSH ONE (11:05)
[2017-12-24] MEDS ORDERED: Glycopyrrolate Inj 1 MG/5 ML Syringe IV.PUSH ONE (11:05)
--- NOTE | 2017-12-24 11:28 | GIPROC ---
[facility] [address] [facility]. [facility], [id number] EGD PROCEDURE REPORT EXAM DATE: 12/24/2017 PATIENT NAME: Mirza Shrape MR #: [id number] BIRTHDATE: 1955 ATTENDING: Doron Head MD ORDER #: [id number] [id number] AUTOMATION ENGINEER: Christiano Suh and Christiane Garcia STATUS: inpatient INDICATIONS: The patient is a 62 yr old male here for an EGD due to hematemesis PROCEDURE PERFORMED: EGD w/ biopsy MEDICATIONS: None and Per Anesthesia. TOPICAL ANESTHETIC: Cetacaine [place] CONSENT: The patient understands the risks and benefits of the procedure and understands that these risks include, but are not limited to: sedation, allergic reaction, infection, perforation and/or bleeding. Alternative means of evaluation and treatment include, among others: physical exam, x-rays, and/or surgical intervention. The patient elects to proceed with this endoscopic procedure. medical equipment was checked for proper function. Hand hygiene and appropriate measures for infection prevention was taken. After the risks, benefits and alternatives of the procedure were thoroughly explained, Informed consent was verified, confirmed and timeout was successfully executed by the treatment team. The patient was anesthetized with topical anesthesia and the Pentax EG-[id number] endoscope was introduced through the mouth and advanced to the second portion of the duodenum. Retroflexed views revealed a hiatal hernia The gastroscope was then slowly withdrawn and removed. ESOPHAGUS: There was LA Class D esophagitis noted. Multiple biopsies were performed. STOMACH: The mucosa of the stomach appeared normal. DUODENUM: The duodenal mucosa appeared normal in the entire duodenum. ADVERSE EVENTS: There were no complications. IMPRESSIONS: 1. There was LA Class D esophagitis noted; multiple biopsies were performed 2. The mucosa of the stomach appeared normal 3. Normal duodenal mucosa in the entire duodenum 4. Retroflexed views revealed a hiatal hernia RECOMMENDATIONS: Await biopsy results. Biopsy results will not be ready for 7-10 days. If you don't hear from us in two weeks, call our office for biopsy results. PATIENT CONDITION: stable DISPOSITION: Inpatient REPEAT EXAM: Return as needed for EGD Doron Head MD eSigned: Doron Head MD 12/24/2017 11:27 AM cc: PATIENT NAME: Mirza Sharpe MR#: [id number]
[2017-12-24] MEDS ORDERED: Ketamine Inj 50 MG/5 ML Syringe IV.PUSH ONE (11:47)
[2017-12-24] MEDS ORDERED: Naloxone Inj 0.4 MG/ML Vial ONE (13:39)
[2017-12-24 14:30] LABS: Hematocrit 28.2 % (39.0-51.0); Hemoglobin 8.9 gm/dL (13.0-17.0)
[2017-12-24] MEDS ORDERED: Albumin Human 25% Inj 100 ML IV.SIG ONE ×2 (16:41→22:23)
[2017-12-24] MEDS ORDERED: Sod Chloride 0.9% Inj 1,000 ML IV.SIG SCH (16:41)
--- NOTE | 2017-12-24 16:59 | P.PNCC ---
Subjective Subjective Remarks/Hospital Course: This is a 62yM with history of ESRD on HD who presents with multiple days of nausea and vomiting. initially admitted to [facility] status where he developed hypotension and acute altered mental status. rapid response called and patient emergently transferred to ICU. patient more awake on arrival to ICU: now answering questions and following commands. BP initially 70s/30s, which didn't respond to 1L crystalloid bolus downstairs. additional 500cc 5% albumin given. BP now 110s/60s. Notable hypochloremia, hyponatremia on labs. Severe metabolic alkalosis on ABG with compensatory hypoventilation. HD this morning with 4L volume removed. Full ROS unobtainable from the patient due to his acute mental status change- limited ROS negative for chest pain, SOB, diarrhea. +nausea/ vomiting. + toe pain: patient states his toes are tingling. no change in motor or sensation in his lower extremities. pulses are 2+. Subjective 12/24: Afebrile. During hemodialysis unable to take any fluid off. Remains hypotensive. Currently bolusing. We will place central line and start low- dose norepinephrine. Became hypotensive and unresponsive 0.2 of hydromorphone. Objective Vital Signs / I&O: Vital Signs 12/23/17 19:00 12/23/17 19:42 12/23/17 20:00 Temperature 98.3 F Pulse Rate 80 Respiratory Rate 16 Blood Pressure 96/60 L Pulse Oximetry 100 100 100 12/23/17 20:48 12/24/17 00:00 12/24/17 00:39 Temperature 98.7 F Pulse Rate 84 Respiratory Rate 18 16 18 Blood Pressure 111/65 Pulse Oximetry 99 12/24/17 02:29 12/24/17 03:00 12/24/17 04:00 Temperature Pulse Rate 86 83 91 H Respiratory Rate 17 16 15 Blood Pressure 92/53 L Pulse Oximetry 94 L 100 96 12/24/17 04:01 12/24/17 07:00 12/24/17 08:00 Temperature Pulse Rate 91 H Respiratory Rate 16 Blood Pressure 108/69 Pulse Oximetry 96 98 100 12/24/17 09:00 12/24/17 10:30 12/24/17 11:28 Temperature 97.9 F 98.2 F Pulse Rate 88 82 87 Respiratory Rate 22 16 Blood Pressure 86/49 L 84/45 L Pulse Oximetry 100 98 10/27/18 11:30 12/24/17 11:45 12/24/17 12:00 Temperature Pulse Rate 104 H 104 H 105 H Respiratory Rate 22 16 Blood Pressure 80/35 L 107/58 L Pulse Oximetry 99 97 Intake & Output 12/23/17 12/24/17 12/24/17 18:59 06:59 18:59 Intake Total 600 / 600 1350 / 1350 200 / 200 Output Total 150 / 150 0 / 0 Balance 450 / 450 1350 / 1350 200 / 200 Intake: IV 600 / 600 1350 / 1350 100 / 100 Protonix Inj 80 MG In NS Inj 100 / 100 100 / 100 100 / 100 100 ML @ 10 mls/hr IV.CONT Q10H FLAQUITA Rx#:[id number] Sodium Chloride 3% Inj 250 ML @ 250 / 250 100 mls/hr IV.SIG ONCE ONE Rx# :[id number] Alburx 5% Inj 500 ML @ 250 mls/ 500 / 500 hr IV.SIG STAT STA Rx#:[id number] NS Inj 500 ML @ Wide Open IV. 500 / 500 500 / 500 SIG BOLUS FLAQUITA Rx#:[id number] Anesthesia Amount 100 / 100 Output: Urine 0 / 0 0 / 0 Gastric Drainage 150 / 150 Left Nare 150 / 150 Result Diagrams: 12/24/17 14:21 12/24/17 07:56 Other Results: Microbiology 12/23/17 00:55 Sputum - Expectorated Sputum Gram Stain - Final 12/23/17 00:55 Sputum - Expectorated Sputum Sputum Culture - Preliminary Heavy growth normal respiratory benson at 24 hours 12/23/17 13:15 Blood - Peripheral Aerobic Blood Culture - Preliminary No growth in 1 day 12/23/17 13:15 Blood - Peripheral Anaerobic Blood Culture - Preliminary No growth in 1 day Imaging: Chest X-Ray 12/22/17 11:32 CONCLUSION: 1. Right lower lung zone atelectasis/scarring. Chest CTA 12/22/17 12:38 CONCLUSION: 1. No evidence of pulmonary embolism 2. Abnormal appearance of the esophagus Abdomen/Pelvis CT 12/22/17 15:37 CONCLUSION: 1. Diffuse hepatic fatty infiltration. 2. 5 cm cystic structure possibly within the wall of the distal esophagus. Initially I thought this represented a paraesophageal hernia difficult to identify a communication to the lumen of the gastric cardia. 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 I do not believe that there is compromise of the esophageal lumen, however. Endoscopy or upper GI could be performed for further characterization. 3. Both kidneys are markedly atrophic. 4. Series of stents traversing the left external iliac vein and left SFV. Objective Remarks: gen: This is a 62-year-old AA frail male who appears much older than stated age , lying in bed. heent: nc. at. perrl. mucous membranes moderately moist and pink. Oropharynx without erythema. neck: no jvd. trachea midline. chest: equal chest rise. Nasal cannula. No muscle use cv: normal rate, regular rhythm. sinus. bp improving on my repeat evaluation. abd: soft, nontender, nondistended. no guarding. extr: left groin AVF with + thrill. distal pulses 2+. neuro: RASS -0. arouses and follows commands. NICHOLE 5/5 in all extremities. sensation grossly intact. no focal deficits. Assessment and Plan - Assessment and Plan Plan: Neuro/Psych: Acute metabolic encephalopathy Bipolar disorder Paranoid schizophrenia Depression Left eye blindness Insomnia Chronic narcotic use Monitor neuro status, awake and alert On Risperidone 0.5 mg every 12 hours, trazodone 150 mg at night for anxiety/ depression On escitalopram oxalate 10 mg at night for depression, lamotrigine 200 mg at night for psychosis On gabapentin 200 mg daily for peripheral neuropathy Written for hydromorphone 0.2 mg every 4 hours. Will discontinue secondary to altered mental status hypotension Was receiving tramadol as an outpatient. CV: Severe sepsis Lactic acidosis- cleared History of chronic diastolic heart failure Hypertension Dyslipidemia Coronary disease status post stent placement Peripheral vascular disease Monitor HR and BP keep MAP>65mmHg Norepinephrine drip to maintain mean arterial pressure greater than equal 65 Continue midodrine 10 mg by mouth 3 times a day Echo showed EF 60-65% 11/12 Continue pravastatin 20 mg daily for hyperlipidemia Resp: Acute hypoxemic respiratory insufficiency Currently on 3 L nasal cannula Incentive spirometry while awake Albuterol/ipratropium aerosols every 4 hours with albuterol nebs every 2 hours. Aggressive pulmonary toilet GI: Gastroesophageal reflux disease History of esophagitis History of colonic polyps Hiatal hernia Currently on clear liquid diet per GI Currently on pantoprazole drip. 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 Thrill. Continue Sevelamer 2.4 g 3 times a day for hyperphosphatemia Continue cinacalcet 30 mg daily for secondary hyperparathyroidism Heme: Anemia Leukocytosis Monitor CBC daily. 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 Place central line today Prophylaxis - GI - famotidine - DVT - SCD/ heparin SQ on hold for anemia requiring blood transfusion and Hemoccult positive Palliative care is following. Family request hospice consultation. Wound care consult Level 2
[2017-12-24] MEDS ORDERED: Vancomycin Consult Pharmacy OTHER PRN (17:21)
--- NOTE | 2017-12-24 17:25 | P.PCN ---
Date of procedure: 12/24/17 Pre-op diagnosis: Hypotension, central access for vasopressors Post-op diagnosis: same Procedure: US guided right IJ central line Central line checklist completed, timeout completed. I wore a surgical cap, mask with protective eyewear, full gown and sterile gloves throughout the procedure. Right neck region was prepped using chlorhexidine scrub and draped in sterile fashion. The right IJ was identified using the ultrasound. Anesthesia was achieved over the vein using 1% lidocaine. The introducer needle was inserted into the right IJ under direct ultrasound visualization. Venous blood was withdrawn. The syringe was removed and a guidewire was advanced into the introducer needle. A small incision was made at the skin surface with a scalpel and the introducer needle was exchanged for a dilator over the guidewire. After appropriate dilation was obtained, the dilator was exchanged over the wire for a triple lumen, 7F, antibiotic coated central venous catheter. The wire was removed and the catheter was sutured in place at 17 cm. A stat lock could not be used due to the thick short neck, and StatLock being nonadherent to the skin. A sterile central line dressing was placed over the catheter at the insertion site. The patient tolerated the procedure without any hemodynamic compromise. At time of procedure completion, all ports aspirated and flushed properly. Post-procedure chest x-ray is pending at this time. Anesthesia: local Surgeon: Dayton Kohli Estimated blood loss (mL): 1 Pathology: none sent Condition: critical Disposition: ICU
[2017-12-24] MEDS: Norepinephrine Inj 16 MG in Sodium Chlor 0.9% Inj 234 ML IV.CONT PRN ×2 (17:39→21:56)
--- NOTE | 2017-12-24 17:49 | XR ---
EXAM DATE: 12/24/2017 5:44 PM EDT AGE/SEX: 62 years / Male INDICATIONS: Central line placement. CLINICAL DATA: This is the patient's subsequent encounter. Patient reports that signs and symptoms h ave been present for 2 days and indicates a pain score of Nonresponsive. MEDICAL/SURGICAL HISTORY: . AV fistula. BPH. Bipolar. Cerebral infarct. CKD. Left hand contract ure. Dysphagia. ESRD. Esophagitis. GERD. Heart failure. Hypothyroid. PVD. Dialysis. Schizophrenia. Di abetic. . Cardiac [place] [facility] [place]. . FINDINGS: There is development of bilateral basilar consolidation in the lungs since December 22. Heart size is enlarged. A right central line is placed superior vena cava. There is no pneumothorax. CONCLUSION: Placement of right central line in superior vena cava without pneumothorax. New lung consolidation at the bases since December 22. Electronically signed by: Bhavesh Thorpe MD 12/24/2017 5:48 PM EDT
[2017-12-24] MEDS: Ferrous Sulfate 325 MG Tablet PO SCH (18:00)
--- NOTE | 2017-12-24 19:40 | P.PNNP ---
Subjective Interval history: Patient seen earlier during HD and after EGD, no SOB. Physical Exam Vital signs: Vital Signs 12/23/17 19:42 12/23/17 20:00 12/23/17 20:48 Temperature 98.3 F Pulse Rate 80 Respiratory Rate 16 18 Blood Pressure 96/60 L Pulse Oximetry 100 100 12/24/17 00:00 12/24/17 00:39 12/24/17 02:29 Temperature 98.7 F Pulse Rate 84 86 Respiratory Rate 16 18 17 Blood Pressure 111/65 Pulse Oximetry 99 94 L 12/24/17 03:00 12/24/17 04:00 12/24/17 04:01 Temperature Pulse Rate 83 91 H 91 H Respiratory Rate 16 15 16 Blood Pressure 92/53 L 108/69 Pulse Oximetry 100 96 96 12/24/17 07:00 12/24/17 08:00 12/24/17 09:00 Temperature Pulse Rate 88 Respiratory Rate Blood Pressure Pulse Oximetry 98 100 12/24/17 10:30 12/24/17 11:28 12/24/17 11:30 Temperature 97.9 F 98.2 F Pulse Rate 82 87 104 H Respiratory Rate 22 16 Blood Pressure 86/49 L 84/45 L Pulse Oximetry 100 98 12/24/17 11:45 12/24/17 12:00 12/24/17 16:00 Temperature 98.1 F Pulse Rate 104 H 105 H 81 Respiratory Rate 22 16 22 Blood Pressure 80/35 L 107/58 L 79/52 L Pulse Oximetry 99 97 100 Intake & Output 12/24/17 12/24/17 12/25/17 06:59 18:59 06:59 Intake Total 1350 / 1350 510 / 510 Output Total 0 / 0 0 / 0 Balance 1350 / 1350 510 / 510 Intake: IV 1350 / 1350 170 / 170 Protonix Inj 80 MG In NS Inj 100 / 100 100 / 100 100 ML @ 10 mls/hr IV.CONT Q10H FLAQUITA Rx#:[id number] Sodium Chloride 3% Inj 250 ML @ 250 / 250 100 mls/hr IV.SIG ONCE ONE Rx# :[id number] Flexbumin 25% Inj 100 ML @ 60 70 / 70 mls/hr IV.SIG ONCE ONE Rx#: [id number] Alburx 5% Inj 500 ML @ 250 mls/ 500 / 500 hr IV.SIG STAT STA Rx#:[id number] NS Inj 500 ML @ Wide Open IV. 500 / 500 SIG BOLUS FLAQUITA Rx#:[id number] Oral 240 / 240 Anesthesia Amount 100 / 100 Output: Urine 0 / 0 0 / 0 Hemodialysis Amount 0 / 0 Other: # Bowel Movements 0 Narrative: Gen appearance:Unresponsive frail AA male who appears much older than stated age, lethargic HEENT: dry mucous membranes. NECK: No JVD, trachea midline. Respiratory: equal chest rise.on simple face mask at 5LPM. No accessory muscle use. Cardiovascular: normal rate, regular rhythm. sinus. bp improving on my repeat evaluation. Abdomen: soft, nontender, nondistended. no guarding. Extremities: left groin AVF with + thrill. distal pulses 2+. Neuro: In bed, not responding to sternal rub, doesn't follow commands. Assessment and Plan - Assessment (1) Aspiration pneumonia of both lungs Code(s): J69.0 - Pneumonitis due to inhalation of food and vomit Qualifiers: Aspiration pneumonia type: unspecified Lung location: lower lobe of lung Qualified Code(s): J69.0 - Pneumonitis due to inhalation of food and vomit (2) End stage renal disease on dialysis Code(s): N18.6 - End stage renal disease; Z99.2 - Dependence on renal dialysis Status: Acute (3) Diabetes Code(s): E11.9 - Type 2 diabetes mellitus without complications Status: Chronic Qualifiers: Diabetes mellitus type: type 2 Chronic kidney disease stage: on chronic dialysis (4) Syncope Code(s): R55 - Syncope and collapse Status: Acute Qualifiers: Syncope type: unspecified Qualified Code(s): R55 - Syncope and collapse (5) Nausea and vomiting Code(s): R11.2 - Nausea with vomiting, unspecified Status: Acute Qualifiers: Vomiting type: unspecified Vomiting Intractability: non-intractable Qualified Code(s): R11.2 - Nausea with vomiting, unspecified - Plan Patient has low BP, minimal fluid removal with HD. EGD results noted, follow Hgb. Continue HD, TTS for now.
[2017-12-24] MEDS ORDERED: Pantoprazole Inj 40 MG Vial IV.PUSH SCH (21:00)
[2017-12-24] MEDS ORDERED: Vancomycin Inj 1,000 MG in Sodium Chlor 0.9% Inj 250 ML IV.SIG ONE (21:00)
[2017-12-24] MEDS ORDERED: traZODone 50 MG Tablet PO SCH (21:00)
--- NOTE | 2017-12-24 21:08 | P.PNCC ---
Critical Care Event Note Code activated: No Narrative: Called to patient's bedside regarding change of CODE STATUS. Patient's brother was at bedside (I believe he said his name was Al) and was requesting change to DO NOT RESUSCITATE. I reviewed the paper chart and I did not see advanced directives on the chart. I reviewed the EMR which has a healthcare surrogate designation scanned in 08/11/17 which indicates that the primary surrogate is Belle White and the alternate surrogate is Yuniel (felicity?) Dell. Emery, his RN, called the intermediate and they have the same documentation. I spoke to the patient who was currently alert and appears capacitated for medical decision making and therefore able to make determination of code status himself. He indicates that if he experiences pulseless arrest "he wishes to go comfortably and naturally" and does NOT want CPR, shocks, intubation or ACLS drugs. He seems undecided regarding whether he would want intubation for respiratory distress. He states he would like to discuss this again tomorrow. He states if he deteriorates in the meantime and mechanical ventilation is felt to be needed, AND if at that point he lacks capacity for medical decision making, that we should call Belle White to make a determination regarding intubation. Patient's brother and Emery remained at bedside during this conversation. Will change CODE STATUS to ALT CODE- Intubation only. Critical care time: less than 30 mins
[2017-12-24] MEDS: lamoTRIgine 100 MG Tablet PO SCH (21:16)
[2017-12-24] MEDS: Ascorbic Acid 500 MG Tablet PO SCH (21:17)
[2017-12-24] MEDS: Piperacil/Tazo 2.25 GM Premix 50 ML IV.SIG SCH (21:29)
[2017-12-24] MEDS: Pantoprazole Inj 40 MG Vial IV.PUSH SCH (21:29)
[2017-12-25] MEDS: Insulin NovoLIN Regular Correctional Sugar Inj SQ SCH ×7 (00:13→23:26)
[2017-12-25 04:32] LABS: Hematocrit 27.8 % (39.0-51.0); Hemoglobin 8.7 gm/dL (13.0-17.0); Mean Corpuscular HGB Conc 31.3 % (32.0-36.0); Mean Corpuscular Hemoglobin 28.2 pg (27.0-34.0); Mean Platelet Volume 8.7 fL (7.0-11.0); Platelet Count 175 th/mm3 (150-450); Red Blood Count 3.09 mil/mm3 (4.50-5.90); Red Cell Distribution Width 17.2 % (11.6-17.2); White Blood Count 10.2 th/mm3 (4.0-11.0)
[2017-12-25 05:01] LABS: Calcium 8.5 mg/dL (8.5-10.1); Carbon Dioxide 32.9 meq/L (21.0-32.0); Magnesium 2.2 mg/dL (1.5-2.5); Phosphorus 3.7 mg/dL (2.5-4.9); Potassium 3.1 meq/L (3.5-5.1); Vancomycin,Random 18.7 Comment
[2017-12-25] MEDS: Piperacil/Tazo 2.25 GM Premix 50 ML IV.SIG SCH ×3 (05:03→23:20)
--- NOTE | 2017-12-25 09:19 | XR ---
EXAM DATE: 12/25/2017 8:51 AM EDT AGE/SEX: 62 years / Male INDICATIONS: Cough. CLINICAL DATA: This is the patient's initial encounter. Patient reports that signs and symptoms have been present for 1 day and indicates a pain score of Nonresponsive. MEDICAL/SURGICAL HISTORY: . AV fistula. BPH. Bipolar. Cerebral infarct. CKD. Left hand contract ure. Dysphagia. ESRD. Esophagitis. GERD. Heart failure. Hypothyroid. PVD. Dialysis. Schizophrenia. Di abetic. . Cardiac catheterization . COMPARISON: [facility] – [place], CHEST 1V SINGLE AP, 12/24/2017. . FINDINGS: Portable AP view of the chest demonstrates cardiac silhouette size at the upper limits for normal. Ri ght IJ central line distal tip is in the SVC near the cavoatrial junction. EKG lines overlie the dm ent. Lungs are underinflated and there is bibasilar pleural-parenchymal opacity. No pneumothorax is i dentified. Bones demonstrate no abnormality. CONCLUSION: Stable chest x-ray with bibasilar opacities and likely a small left pleural effusion. Electronically signed by: Seun Fernandez MD 12/25/2017 9:18 AM EDT
[2017-12-25] MEDS: Ferrous Sulfate 325 MG Tablet PO SCH ×3 (09:42→18:42)
[2017-12-25] MEDS: Insulin Detemir Inj 1,000 UNIT/10 ML Vial SQ SCH ×2 (09:43→23:24)
[2017-12-25] MEDS: Escitalopram 10 MG Tablet PO SCH (09:44)
[2017-12-25] MEDS: Senna/Docusate Sodium 8.6/50 MG Tablet PO SCH ×2 (09:44→23:21)
[2017-12-25] MEDS: Pantoprazole Inj 40 MG Vial IV.PUSH SCH ×2 (09:45→23:21)
[2017-12-25] MEDS: risperiDONE 0.5 MG ODT PO SCH ×2 (09:45→23:21)
[2017-12-25] MEDS: Ascorbic Acid 500 MG Tablet PO SCH ×2 (09:46→23:22)
--- NOTE | 2017-12-25 09:54 | P.PNCC ---
Subjective Subjective Remarks/Hospital Course: This is a 62yM with history of ESRD on HD who presents with multiple days of nausea and vomiting. initially admitted to [facility] status where he developed hypotension and acute altered mental status. rapid response called and patient emergently transferred to ICU. patient more awake on arrival to ICU: now answering questions and following commands. BP initially 70s/30s, which didn't respond to 1L crystalloid bolus downstairs. additional 500cc 5% albumin given. BP now 110s/60s. Notable hypochloremia, hyponatremia on labs. Severe metabolic alkalosis on ABG with compensatory hypoventilation. HD this morning with 4L volume removed. Full ROS unobtainable from the patient due to his acute mental status change- limited ROS negative for chest pain, SOB, diarrhea. +nausea/ vomiting. + toe pain: patient states his toes are tingling. no change in motor or sensation in his lower extremities. pulses are 2+. 12/24: Afebrile. During hemodialysis unable to take any fluid off. Remains hypotensive. Currently bolusing. We will place central line and start low- dose norepinephrine. Became hypotensive and unresponsive 0.2 of hydromorphone. Subjective 12/25: Currently alternate CODE STATUS intubation only. Remains on norepinephrine drip at 10 mcg/min. Started on antibiotics overnight. Cultures no growth today. Cortisol level 15 which is appropriate. Remains on Midodrine and will add fludrocortisone today. Echocardiogram was ordered for today. Objective Vital Signs / I&O: Vital Signs 12/24/17 10:30 12/24/17 11:28 12/24/17 11:30 Temperature 97.9 F 98.2 F Pulse Rate 82 87 104 H Respiratory Rate 22 16 Blood Pressure 86/49 L 84/45 L Pulse Oximetry 100 98 12/24/17 11:45 12/24/17 12:00 12/24/17 16:00 Temperature 98.1 F Pulse Rate 104 H 105 H 81 Respiratory Rate 22 16 22 Blood Pressure 80/35 L 107/58 L 79/52 L Pulse Oximetry 99 97 100 12/24/17 20:00 12/24/17 20:04 12/24/17 20:08 Temperature 97.7 F Pulse Rate 97 H 94 H Respiratory Rate 28 H 19 16 Blood Pressure 104/51 L Pulse Oximetry 91 L 97 12/25/17 00:00 12/25/17 04:00 12/25/17 05:02 Temperature 97.8 F 98.1 F Pulse Rate 81 76 Respiratory Rate 23 20 20 Blood Pressure 99/49 L 121/60 Pulse Oximetry 92 L 97 12/25/17 07:00 12/25/17 08:47 Temperature Pulse Rate 66 Respiratory Rate 18 Blood Pressure Pulse Oximetry 100 Intake & Output 12/24/17 12/25/17 12/25/17 18:59 06:59 18:59 Intake Total 510 / 510 700 / 700 Output Total 0 / 0 0 / 0 Balance 510 / 510 700 / 700 Intake: IV 170 / 170 700 / 700 Levophed Inj 16 MG In NS Inj 250 / 250 234 ML @ 2 MCG/MIN 1.87 mls/hr IV.CONT TITRATE PRN Rx#: [id number] Protonix Inj 80 MG In NS Inj 100 / 100 100 ML @ 10 mls/hr IV.CONT Q10H [facility] Rx#:[id number] Flexbumin 25% Inj 100 ML @ 60 70 / 70 100 / 100 mls/hr IV.SIG ONCE ONE Rx#: [id number] Zosyn 2.25 GM Premix 50 ML @ 100 / 100 100 mls/hr IV.SIG Q8H [facility] Rx#: [id number] Vancomycin Inj 1,000 MG In NS 250 / 250 Inj 250 ML @ 250 mls/hr IV.SIG ONCE ONE Rx#:[id number] Oral 240 / 240 0 / 0 Anesthesia Amount 100 / 100 Output: Urine 0 / 0 0 / 0 Hemodialysis Amount 0 / 0 Other: # Bowel Movements 0 0 Result Diagrams: 12/25/17 04:10 12/25/17 04:10 Other Results: Microbiology 12/23/17 00:55 Sputum - Expectorated Sputum Gram Stain - Final 12/23/17 00:55 Sputum - Expectorated Sputum Sputum Culture - Preliminary Heavy growth normal respiratory benson at 24 hours 12/23/17 13:15 Blood - Peripheral Aerobic Blood Culture - Preliminary No growth in 1 day 12/23/17 13:15 Blood - Peripheral Anaerobic Blood Culture - Preliminary No growth in 1 day Imaging: Chest X-Ray 12/22/17 11:32 CONCLUSION: 1. Right lower lung zone atelectasis/scarring. Chest CTA 12/22/17 12:38 CONCLUSION: 1. No evidence of pulmonary embolism 2. Abnormal appearance of the esophagus Abdomen/Pelvis CT 12/22/17 15:37 CONCLUSION: 1. Diffuse hepatic fatty infiltration. 2. 5 cm cystic structure possibly within the wall of the distal esophagus. Initially I thought this represented a paraesophageal hernia difficult to identify a communication to the lumen of the gastric cardia. 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 I do not believe that there is compromise of the esophageal lumen, however. Endoscopy or upper GI could be performed for further characterization. 3. Both kidneys are markedly atrophic. 4. Series of stents traversing the left external iliac vein and left SFV. Chest X-Ray 12/24/17 17:22 CONCLUSION: Placement of right central line in superior vena cava without pneumothorax. New lung consolidation at the bases since December 22. Chest X-Ray 12/25/17 00:00 CONCLUSION: Stable chest x-ray with bibasilar opacities and likely a small left pleural effusion. Objective Remarks: gen: This is a 62-year-old AA frail male who appears much older than stated age , lying in bed. heent: nc. at. perrl. mucous membranes moderately moist and pink. Oropharynx without erythema. neck: no jvd. trachea midline. Right IJ CVL is clean dry and intact chest: equal chest rise. Nasal cannula. No muscle use cv: normal rate, regular rhythm. sinus. abd: soft, nontender, nondistended. no guarding. extr: left groin AVF with + thrill. distal pulses 2+. neuro: RASS -0. arouses and follows commands. NICHOLE 5/5 in all extremities. sensation grossly intact. no focal deficits. Assessment and Plan - Assessment and Plan Plan: Neuro/Psych: Acute metabolic encephalopathy Bipolar disorder Paranoid schizophrenia Depression Left eye blindness Insomnia Chronic narcotic use Monitor neuro status, awake and alert On Risperidone 0.5 mg every 12 hours, trazodone 150 mg at night for anxiety/ depression On escitalopram oxalate 10 mg at night for depression, lamotrigine 200 mg at night for psychosis On gabapentin 200 mg daily for peripheral neuropathy Discontinue hydromorphone due to altered mental status. Received only 0.1 mg and became unresponsive Was receiving tramadol as an outpatient.. Resume at 50 mg every 6 hours as needed pain CV: Severe sepsis Lactic acidosis- cleared History of chronic diastolic heart failure Hypertension by history Dyslipidemia Coronary disease status post stent placement Peripheral vascular disease Currently hypotensive Monitor HR and BP keep MAP>65mmHg Norepinephrine drip to maintain mean arterial pressure greater than equal 65. Currently on 10 mg/min Continue midodrine 10 mg by mouth 3 times a day and add fludrocortisone 0.1 mg daily Echo showed EF 60-65% 11/12 so doubt cardiac effect Continue pravastatin 20 mg daily for hyperlipidemia CVP ordered Resp: Acute hypoxemic respiratory insufficiency Currently on 4 L nasal cannula Incentive spirometry while awake Albuterol/ipratropium aerosols every 4 hours with albuterol nebs every 2 hours. Aggressive pulmonary toilet GI: Gastroesophageal reflux disease History of esophagitis History of colonic polyps Hiatal hernia Currently on clear liquid diet per GI Currently on pantoprazole 40 mg twice daily s/p EGD LA class D esophagitis and hiatal hernia. 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 Thrill. Continue Sevelamer 2.4 g 3 times a day for hyperphosphatemia Continue cinacalcet 30 mg daily for secondary hyperparathyroidism Heme: Anemia, normocytic Monitor CBC daily. Continue iron sulfate 325 mg 3 times daily with vitamin C ID: Monitor for signs and symptomatology infection Currently on vancomycin and piperacillin/tazobactam Blood cultures 12/23 and no growth today FEN: Acute hypokalemia Will give 10 mEq potassium chloride p.o. x1 now. Recheck in a.m. 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 Right IJ CVL day #2 placed 12/24 Prophylaxis - GI - famotidine - DVT - SCD/ heparin SQ .Family request hospice consultation. Wound care consult Level 2
[2017-12-25] MEDS: Polyethylene Glycol 3350 17 GM Packet PO SCH (09:56)
--- NOTE | 2017-12-25 12:10 | P.PNNP ---
Subjective Interval history: Patient is more alert, mild SOB, denies abd. pain, not in distress. Physical Exam Vital signs: Vital Signs 12/24/17 16:00 12/24/17 20:00 12/24/17 20:04 Temperature 98.1 F 97.7 F Pulse Rate 81 97 H Respiratory Rate 22 28 H 19 Blood Pressure 79/52 L 104/51 L Pulse Oximetry 100 91 L 12/24/17 20:08 12/25/17 00:00 12/25/17 04:00 Temperature 97.8 F 98.1 F Pulse Rate 94 H 81 76 Respiratory Rate 16 23 20 Blood Pressure 99/49 L 121/60 Pulse Oximetry 97 92 L 97 12/25/17 05:02 12/25/17 07:00 12/25/17 08:47 Temperature Pulse Rate 66 Respiratory Rate 20 18 Blood Pressure Pulse Oximetry 100 12/25/17 10:43 Temperature Pulse Rate 71 Respiratory Rate 18 Blood Pressure Pulse Oximetry Intake & Output 12/24/17 12/25/17 12/25/17 18:59 06:59 18:59 Intake Total 510 / 510 700 / 700 Output Total 0 / 0 0 / 0 Balance 510 / 510 700 / 700 Intake: IV 170 / 170 700 / 700 Levophed Inj 16 MG In NS Inj 250 / 250 234 ML @ 2 MCG/MIN 1.87 mls/hr IV.CONT TITRATE PRN Rx#: [id number] Protonix Inj 80 MG In NS Inj 100 / 100 100 ML @ 10 mls/hr IV.CONT Q10H [facility] Rx#:[id number] Flexbumin 25% Inj 100 ML @ 60 70 / 70 100 / 100 mls/hr IV.SIG ONCE ONE Rx#: [id number] Zosyn 2.25 GM Premix 50 ML @ 100 / 100 100 mls/hr IV.SIG Q8H [facility] Rx#: [id number] Vancomycin Inj 1,000 MG In NS 250 / 250 Inj 250 ML @ 250 mls/hr IV.SIG ONCE ONE Rx#:[id number] Oral 240 / 240 0 / 0 Anesthesia Amount 100 / 100 Output: Urine 0 / 0 0 / 0 Hemodialysis Amount 0 / 0 Other: # Bowel Movements 0 0 Narrative: Gen appearance:Unresponsive frail AA male who appears much older than stated age, lethargic HEENT: dry mucous membranes. NECK: No JVD, trachea midline. Respiratory: equal chest rise.on simple face mask at 5LPM. No accessory muscle use. Cardiovascular: normal rate, regular rhythm. sinus. bp improving on my repeat evaluation. Abdomen: soft, nontender, nondistended. no guarding. Extremities: left groin AVF with + thrill. distal pulses 2+. Neuro: In bed, alert, following some commands, not in distress. Assessment and Plan - Assessment (1) Aspiration pneumonia of both lungs Code(s): J69.0 - Pneumonitis due to inhalation of food and vomit Qualifiers: Aspiration pneumonia type: unspecified Lung location: lower lobe of lung Qualified Code(s): J69.0 - Pneumonitis due to inhalation of food and vomit (2) End stage renal disease on dialysis Code(s): N18.6 - End stage renal disease; Z99.2 - Dependence on renal dialysis Status: Acute (3) Diabetes Code(s): E11.9 - Type 2 diabetes mellitus without complications Status: Chronic Qualifiers: Diabetes mellitus type: type 2 Chronic kidney disease stage: on chronic dialysis (4) Syncope Code(s): R55 - Syncope and collapse Status: Acute Qualifiers: Syncope type: unspecified Qualified Code(s): R55 - Syncope and collapse (5) Nausea and vomiting Code(s): R11.2 - Nausea with vomiting, unspecified Status: Acute Qualifiers: Vomiting type: unspecified Vomiting Intractability: non-intractable Qualified Code(s): R11.2 - Nausea with vomiting, unspecified - Plan Patient with end stage renal disease, was admitted with chest and upper abd. pain. EGD done on 12/23,results noted, follow Hgb. Continue HD, TTS for now. Hgb. is 8.7, started on liquid diet. On Zosyn and Vano.
--- NOTE | 2017-12-25 14:48 | P.PNGI ---
Subjective Interval history: Resting in the bed eyes open no obvious nausea vomiting or hematemesis Hemoglobin 8.7 Physical Exam Vital signs: Vital Signs 12/24/17 16:00 12/24/17 20:00 12/24/17 20:04 Temperature 98.1 F 97.7 F Pulse Rate 81 97 H Respiratory Rate 22 28 H 19 Blood Pressure 79/52 L 104/51 L Pulse Oximetry 100 91 L 12/24/17 20:08 12/25/17 00:00 12/25/17 04:00 Temperature 97.8 F 98.1 F Pulse Rate 94 H 81 76 Respiratory Rate 16 23 20 Blood Pressure 99/49 L 121/60 Pulse Oximetry 97 92 L 97 12/25/17 05:02 12/25/17 07:00 12/25/17 08:00 Temperature Pulse Rate Respiratory Rate 20 Blood Pressure Pulse Oximetry 100 100 12/25/17 08:47 12/25/17 09:00 12/25/17 10:43 Temperature Pulse Rate 66 75 71 Respiratory Rate 18 18 Blood Pressure Pulse Oximetry 12/25/17 12:00 Temperature Pulse Rate 79 Respiratory Rate Blood Pressure 93/51 L Pulse Oximetry Intake & Output 12/24/17 12/25/17 12/25/17 18:59 06:59 18:59 Intake Total 510 / 510 700 / 700 Output Total 0 / 0 0 / 0 Balance 510 / 510 700 / 700 Intake: IV 170 / 170 700 / 700 Levophed Inj 16 MG In NS Inj 250 / 250 234 ML @ 2 MCG/MIN 1.87 mls/hr IV.CONT TITRATE PRN Rx#: [id number] Protonix Inj 80 MG In NS Inj 100 / 100 100 ML @ 10 mls/hr IV.CONT Q10H [facility] Rx#:[id number] Flexbumin 25% Inj 100 ML @ 60 70 / 70 100 / 100 mls/hr IV.SIG ONCE ONE Rx#: [id number] Zosyn 2.25 GM Premix 50 ML @ 100 / 100 100 mls/hr IV.SIG Q8H [facility] Rx#: [id number] Vancomycin Inj 1,000 MG In NS 250 / 250 Inj 250 ML @ 250 mls/hr IV.SIG ONCE ONE Rx#:[id number] Oral 240 / 240 0 / 0 Anesthesia Amount 100 / 100 Output: Urine 0 / 0 0 / 0 Hemodialysis Amount 0 / 0 Other: # Bowel Movements 0 0 - Constitutional mild distress, cachectic, chronically ill appearing - Routine HEENT Exam Eye: Present: periorbital swelling ENT: Present: mucous membranes moist (Mild) - Routine Respiratory Exam Present: accessory muscle use (No shortness of breath at rest) - Routine Abdominal Exam Present: soft (Round, taut, soft bowel sounds no obvious tenderness) - Routine Skin Exam Present: pallor Results - Labs CBC & Chem 7: 12/25/17 04:10 12/25/17 04:10 Laboratory Results - last 24 hr 12/24/17 12/24/17 12/24/17 15:28 21:28 22:30 WBC RBC Hgb Hct MCV MCH MCHC RDW Plt Count MPV Sodium Potassium Chloride Carbon Dioxide Anion Gap BUN Creatinine Estimated GFR POC Glucose 98 289 H Random Glucose Calcium Phosphorus Magnesium Cortisol 15.2 Random Vancomycin 12/25/17 12/25/17 12/25/17 04:10 04:10 04:15 WBC 10.2 RBC 3.09 L Hgb 8.7 L Hct 27.8 L MCV 90.0 MCH 28.2 MCHC 31.3 L RDW 17.2 Plt Count 175 MPV 8.7 Sodium 143 Potassium 3.1 L Chloride 101 Carbon Dioxide 32.9 H Anion Gap 9 BUN 21 H Creatinine 5.61 H Estimated GFR 12 L POC Glucose 139 H Random Glucose 131 H D Calcium 8.5 Phosphorus 3.7 D Magnesium 2.2 Cortisol Random Vancomycin 18.7 12/25/17 11:04 WBC RBC Hgb Hct MCV MCH MCHC RDW Plt Count MPV Sodium Potassium Chloride Carbon Dioxide Anion Gap BUN Creatinine Estimated GFR POC Glucose 258 H Random Glucose Calcium Phosphorus Magnesium Cortisol Random Vancomycin Microbiology 12/24/17 07:56 Blood - Peripheral Aerobic Blood Culture - Preliminary No growth in 1 day 12/24/17 07:56 Blood - Peripheral Anaerobic Blood Culture - Preliminary No growth in 1 day 12/23/17 13:15 Blood - Peripheral Aerobic Blood Culture - Preliminary No growth in 2 days 12/23/17 13:15 Blood - Peripheral Anaerobic Blood Culture - Preliminary No growth in 2 days 12/23/17 00:55 Sputum - Expectorated Sputum Gram Stain - Final 12/23/17 00:55 Sputum - Expectorated Sputum Sputum Culture - Final Heavy growth normal respiratory benson - Imaging Impressions Chest X-Ray 12/24/17 17:22 CONCLUSION: Placement of right central line in superior vena cava without pneumothorax. New lung consolidation at the bases since December 22. Chest X-Ray 12/25/17 00:00 CONCLUSION: Stable chest x-ray with bibasilar opacities and likely a small left pleural effusion. 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 This patient presented to [facility] from a local rehab center with complaints of burning chest wall pain while undergoing dialysis. Patient states that this discomfort is described as burning and intermittent, associated with nausea. He states onset of burning epigastric pain, chest wall pain 1 week ago accompanied by dark brown emesis. He endorses that he experiences this discomfort at least twice daily. States pain is increased after meals and accompanied by vomiting after meals. Patient has had multiple episodes of projectile vomiting in the emergency room. CT of the abdomen and pelvis done on admission revealed the followin. Diffuse hepatic fatty infiltration. 2. 5 cm cystic structure possibly within the wall of the distal esophagus. Initially I thought this represented a paraesophageal hernia difficult to identify a communication to the lumen of the gastric cardia. 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 I do not believe that there is compromise of the esophageal lumen, however. Endoscopy or upper GI could be performed for further characterization. Our service has been consulted to evaluate patient's projectile vomiting of dark brown emesis, abnormal esophagus and burning chest wall/epigastric pain. 09/19/2017 EGD revealed the following findings: 1. Grade C esophagitis biopsy from the distal esophagus 2. Mild duodenitis biopsy from the antrum to rule out H. pylori Stomach normal 3. Retroflexed views revealed no abnormalities Home medication includes omeprazole 20 mg p.o. daily. Patient denied any known use of NSAIDs or aspirin. Hemoglobin 12.3 hematocrit 37.8 platelet count 252 INR 1.1 total bilirubin 0.5 AST 31 ALT 17 alk phos 117 albumin 3.2 12/25/2017 patient is status post EGD performed on 12/24/2017 findings include LA class D esophagitis and hiatal hernia no obvious bleeding EGD to be repeated as needed as needed Hemoglobin currently 8.7 decreased WBC count 10.2 patient is asymptomatic from any nausea vomiting abdominal pain or any obvious bleeding. Discussed with patient the need for colonoscopy after dialysis Tuesday. Consents and orders placed for prep Tuesday p.m. patient should be more stable after dialysis Tuesday p.m. Plan Diet clear liquids in a.m. EGD biopsies are pending Avoid NSAIDs, antireflux precautions PPI Zofran as needed Bowel regimen Monitor labs transfuse as needed Further recommendations to follow, plan for colonoscopy 12/27/2017 after dialysis treatment Patient was seen per myself and Dr. Head, note was written on his behalf (1) Nausea and vomiting Qualifiers: Vomiting type: unspecified Vomiting Intractability: non-intractable Qualified Code(s): R11.2 - Nausea with vomiting, unspecified
[2017-12-25 15:43] LABS: Hemoglobin 8.7 gm/dL (13.0-17.0)
[2017-12-25] MEDS ORDERED: Sodium Chlor 0.9% Inj 500 ML IV.SIG SCH (15:47)
[2017-12-25] MEDS: lamoTRIgine 100 MG Tablet PO SCH (23:21)
[2017-12-25] MEDS: Norepinephrine Inj 16 MG in Sodium Chlor 0.9% Inj 234 ML IV.CONT PRN (23:27)
[2017-12-26] MEDS: Piperacil/Tazo 2.25 GM Premix 50 ML IV.SIG SCH ×3 (05:12→22:44)
[2017-12-26] MEDS: Insulin NovoLIN Regular Correctional Sugar Inj SQ SCH ×5 (05:12→22:41)
[2017-12-26 05:29] LABS: Baso % (Auto) 0.2 % (0.0-2.0); Eos # (Auto) 0.2 th/mm3 (0.0-0.4); Eos % (Auto) 2.3 % (0.0-4.0); Hemoglobin 8.6 gm/dL (13.0-17.0); Lymph # (Auto) 1.2 th/mm3 (1.0-4.8); Lymph % (Auto) 18.1 % (9.0-44.0); Mean Corpuscular HGB Conc 31.7 % (32.0-36.0); Mean Corpuscular Hemoglobin 28.4 pg (27.0-34.0); Mean Corpuscular Volume 89.5 fL (80.0-100.0); Mean Platelet Volume 9.6 fL (7.0-11.0); Mono # (Auto) 0.5 th/mm3 (0.0-0.9); Mono % (Auto) 7.2 % (0.0-8.0); Neut # (Auto) 4.8 th/mm3 (1.8-7.7); Neut % (Auto) 72.2 % (16.0-70.0); Platelet Count 169 th/mm3 (150-450); Red Blood Count 3.02 mil/mm3 (4.50-5.90); Red Cell Distribution Width 17.5 % (11.6-17.2); White Blood Count 6.7 th/mm3 (4.0-11.0)
[2017-12-26 05:47] LABS: Alanine Aminotransferase 14 U/L (12-78); Albumin 3.2 g/dL (3.4-5.0); Alkaline Phosphatase 84 U/L (45-117); Anion Gap 12 meq/L (5-15); Aspartate Aminotransferase 10 U/L (15-37); Blood Urea Nitrogen 25 mg/dL (7-18); Calcium 8.1 mg/dL (8.5-10.1); Carbon Dioxide 29.5 meq/L (21.0-32.0); Chloride 98 meq/L (98-107); Glomerular Filtration Rate 9 mL/min (>89); Glucose,Random 186 mg/dL (74-106); Phosphorus 3.9 mg/dL (2.5-4.9); Potassium 3.2 meq/L (3.5-5.1); Sodium 139 meq/L (136-145); Total Protein 7.8 g/dL (6.4-8.2); Vancomycin,Random 14.2 Comment
[2017-12-26] MEDS: Ascorbic Acid 500 MG Tablet PO SCH ×2 (09:30→22:43)
[2017-12-26] MEDS: Senna/Docusate Sodium 8.6/50 MG Tablet PO SCH ×2 (09:31→22:43)
[2017-12-26] MEDS: risperiDONE 0.5 MG ODT PO SCH ×2 (09:31→22:43)
[2017-12-26] MEDS: Escitalopram 10 MG Tablet PO SCH (09:32)
[2017-12-26] MEDS: Ferrous Sulfate 325 MG Tablet PO SCH ×3 (09:32→19:01)
[2017-12-26] MEDS: Insulin Detemir Inj 1,000 UNIT/10 ML Vial SQ SCH ×2 (09:33→22:42)
[2017-12-26] MEDS: Pantoprazole Inj 40 MG Vial IV.PUSH SCH ×2 (09:34→22:43)
[2017-12-26] MEDS: Polyethylene Glycol 3350 17 GM Packet PO SCH (09:34)
--- NOTE | 2017-12-26 10:36 | P.PNGI ---
Subjective Interval history: Patient is resting in the bed eyes open responding with simple verbal stimuli Denies any abdominal pain current hemoglobin reviewed 8.6 and stable <Rosetta Mathew - Last Filed: 12/26/17 10:32> Physical Exam Vital signs: Vital Signs 12/25/17 10:43 12/25/17 12:00 12/25/17 15:52 Temperature 98.7 F Pulse Rate 71 79 74 Respiratory Rate 18 20 18 Blood Pressure 93/51 L Pulse Oximetry 93 L 12/25/17 16:01 12/25/17 19:31 12/25/17 20:00 Temperature 98.5 F 98.3 F Pulse Rate 72 71 72 Respiratory Rate 22 16 24 Blood Pressure 180/68 H Pulse Oximetry 93 L 97 93 L 12/25/17 20:15 12/25/17 20:30 12/25/17 20:45 Temperature Pulse Rate 75 74 75 Respiratory Rate 25 H 24 16 Blood Pressure 111/55 L 120/71 109/64 Pulse Oximetry 97 100 100 12/25/17 21:00 12/25/17 21:15 12/25/17 21:30 Temperature Pulse Rate 84 80 77 Respiratory Rate 20 Blood Pressure 108/63 85/57 L 113/62 Pulse Oximetry 95 99 94 L 12/25/17 21:45 12/25/17 22:00 12/25/17 22:01 Temperature Pulse Rate 83 73 74 Respiratory Rate Blood Pressure 111/68 81/49 L Pulse Oximetry 95 100 100 12/25/17 22:15 12/25/17 22:30 12/25/17 22:45 Temperature Pulse Rate 69 71 73 Respiratory Rate Blood Pressure 110/62 105/62 113/67 Pulse Oximetry 94 L 90 L 97 12/25/17 23:00 12/25/17 23:15 12/25/17 23:30 Temperature Pulse Rate 72 70 81 Respiratory Rate Blood Pressure 110/66 125/70 120/74 Pulse Oximetry 98 99 94 L 12/25/17 23:45 12/26/17 00:00 12/26/17 00:20 Temperature 97.0 F L Pulse Rate 78 77 77 Respiratory Rate Blood Pressure 112/58 L 110/53 L 110/70 Pulse Oximetry 94 L 96 98 12/26/17 00:40 12/26/17 01:00 12/26/17 01:20 Temperature Pulse Rate 77 75 72 Respiratory Rate Blood Pressure 105/59 L 105/62 95/54 L Pulse Oximetry 95 95 93 L 12/26/17 01:40 12/26/17 02:00 12/26/17 02:20 Temperature Pulse Rate 71 77 84 Respiratory Rate Blood Pressure 105/61 96/55 L 116/65 Pulse Oximetry 97 97 99 12/26/17 02:40 12/26/17 03:00 12/26/17 03:25 Temperature Pulse Rate 118 H 87 83 Respiratory Rate 24 25 H Blood Pressure 112/60 113/65 101/54 L Pulse Oximetry 97 93 L 99 12/26/17 03:41 12/26/17 04:00 12/26/17 04:01 Temperature 97.5 F L Pulse Rate 80 81 84 Respiratory Rate 24 23 25 H Blood Pressure 108/51 L 113/65 76/38 L Pulse Oximetry 92 L 82 L 91 L 12/26/17 04:10 12/26/17 04:21 12/26/17 04:25 Temperature Pulse Rate 79 79 78 Respiratory Rate 18 20 20 Blood Pressure 95/52 L 72/35 L 115/57 L Pulse Oximetry 94 L 97 95 12/26/17 05:00 12/26/17 06:00 12/26/17 06:02 Temperature Pulse Rate 80 83 79 Respiratory Rate 22 19 15 Blood Pressure 66/31 L 101/59 L Pulse Oximetry 78 L 96 96 12/26/17 06:20 12/26/17 06:40 12/26/17 07:29 Temperature Pulse Rate 74 73 88 Respiratory Rate 15 17 16 Blood Pressure 122/68 98/52 L Pulse Oximetry 100 99 100 Intake & Output 12/25/17 12/26/17 12/26/17 18:59 06:59 18:59 Intake Total 550 / 550 300 / 300 Output Total 0 / 0 0 / 0 Balance 550 / 550 300 / 300 Intake: IV 50 / 50 300 / 300 Levophed Inj 16 MG In NS Inj 250 / 250 234 ML @ 2 MCG/MIN 1.87 mls/hr IV.CONT TITRATE PRN Rx#: [id number] Zosyn 2.25 GM Premix 50 ML @ 50 / 50 50 / 50 100 mls/hr IV.SIG Q8H FLAQUITA Rx#: [id number] Oral 500 / 500 0 / 0 Anesthesia Amount 0 / 0 Output: Urine 0 / 0 0 / 0 Emesis 0 / 0 Hemodialysis Amount 0 / 0 Gastric Drainage 0 / 0 Left Nare 0 / 0 Other: Date of Last Bowel Movement 12/25/17 12/25/17 # Bowel Movements 1 # Emeses 0 # Oral Regurgitations 0 - Constitutional no acute distress, cachectic, cooperative - Routine HEENT Exam ENT: Present: mucous membranes moist - Routine Respiratory Exam Present: accessory muscle use (No obvious wheezing or rhonchi or shortness of breath) - Routine Cardiovascular Exam Present: S1, S2 - Routine Abdominal Exam Present: soft (Round, no obvious abdominal pain), normoactive bowel sounds <Rosetta Mathew M - Last Filed: 12/26/17 10:32> Vital signs: Vital Signs 12/25/17 12:00 12/25/17 15:52 12/25/17 16:01 Temperature 98.7 F 98.5 F Pulse Rate 79 74 72 Respiratory Rate 20 18 22 Blood Pressure 93/51 L 180/68 H Pulse Oximetry 93 L 93 L 12/25/17 19:31 12/25/17 20:00 12/25/17 20:15 Temperature 98.3 F Pulse Rate 71 72 75 Respiratory Rate 16 24 25 H Blood Pressure 111/55 L Pulse Oximetry 97 93 L 97 12/25/17 20:30 12/25/17 20:45 12/25/17 21:00 Temperature Pulse Rate 74 75 84 Respiratory Rate 24 16 20 Blood Pressure 120/71 109/64 108/63 Pulse Oximetry 100 100 95 12/25/17 21:15 12/25/17 21:30 12/25/17 21:45 Temperature Pulse Rate 80 77 83 Respiratory Rate Blood Pressure 85/57 L 113/62 111/68 Pulse Oximetry 99 94 L 95 12/25/17 22:00 12/25/17 22:01 12/25/17 22:15 Temperature Pulse Rate 73 74 69 Respiratory Rate Blood Pressure 81/49 L 110/62 Pulse Oximetry 100 100 94 L 12/25/17 22:30 12/25/17 22:45 12/25/17 23:00 Temperature Pulse Rate 71 73 72 Respiratory Rate Blood Pressure 105/62 113/67 110/66 Pulse Oximetry 90 L 97 98 12/25/17 23:15 12/25/17 23:30 10/28/18 23:45 Temperature Pulse Rate 70 81 78 Respiratory Rate Blood Pressure 125/70 120/74 112/58 L Pulse Oximetry 99 94 L 94 L 12/26/17 00:00 12/26/17 00:20 12/26/17 00:40 Temperature 97.0 F L Pulse Rate 77 77 77 Respiratory Rate Blood Pressure 110/53 L 110/70 105/59 L Pulse Oximetry 96 98 95 12/26/17 01:00 12/26/17 01:20 12/26/17 01:40 Temperature Pulse Rate 75 72 71 Respiratory Rate Blood Pressure 105/62 95/54 L 105/61 Pulse Oximetry 95 93 L 97 12/26/17 02:00 12/26/17 02:20 12/26/17 02:40 Temperature Pulse Rate 77 84 118 H Respiratory Rate Blood Pressure 96/55 L 116/65 112/60 Pulse Oximetry 97 99 97 12/26/17 03:00 12/26/17 03:25 12/26/17 03:41 Temperature Pulse Rate 87 83 80 Respiratory Rate 24 25 H 24 Blood Pressure 113/65 101/54 L 108/51 L Pulse Oximetry 93 L 99 92 L 12/26/17 04:00 12/26/17 04:01 12/26/17 04:10 Temperature 97.5 F L Pulse Rate 81 84 79 Respiratory Rate 23 25 H 18 Blood Pressure 113/65 76/38 L 95/52 L Pulse Oximetry 82 L 91 L 94 L 12/26/17 04:21 12/26/17 04:25 12/26/17 05:00 Temperature Pulse Rate 79 78 80 Respiratory Rate 20 20 22 Blood Pressure 72/35 L 115/57 L Pulse Oximetry 97 95 78 L 12/26/17 06:00 12/26/17 06:02 12/26/17 06:20 Temperature Pulse Rate 83 79 74 Respiratory Rate 19 15 15 Blood Pressure 66/31 L 101/59 L 122/68 Pulse Oximetry 96 96 100 12/26/17 06:40 12/26/17 07:29 12/26/17 11:17 Temperature Pulse Rate 73 88 73 Respiratory Rate 17 16 15 Blood Pressure 98/52 L Pulse Oximetry 99 100 Intake & Output 12/25/17 12/26/17 12/26/17 18:59 06:59 18:59 Intake Total 550 / 550 300 / 300 Output Total 0 / 0 0 / 0 Balance 550 / 550 300 / 300 Intake: IV 50 / 50 300 / 300 Levophed Inj 16 MG In NS Inj 250 / 250 234 ML @ 2 MCG/MIN 1.87 mls/hr IV.CONT TITRATE PRN Rx#: [id number] Zosyn 2.25 GM Premix 50 ML @ 50 / 50 50 / 50 100 mls/hr IV.SIG Q8H FLAQUITA Rx#: [id number] Oral 500 / 500 0 / 0 Anesthesia Amount 0 / 0 Output: Urine 0 / 0 0 / 0 Emesis 0 / 0 Hemodialysis Amount 0 / 0 Gastric Drainage 0 / 0 Left Nare 0 / 0 Other: Date of Last Bowel Movement 12/25/17 12/25/17 # Bowel Movements 1 # Emeses 0 # Oral Regurgitations 0 <John Paul Amezquita - Last Filed: 12/26/17 11:30> Results - Labs CBC & Chem 7: 12/26/17 04:16 12/26/17 04:16 Laboratory Results - last 24 hr 12/25/17 12/25/17 12/25/17 11:04 15:15 15:30 WBC RBC Hgb 8.7 L Hct 28.0 L MCV MCH MCHC RDW Plt Count MPV Neut % (Auto) Lymph % (Auto) Weld % (Auto) Eos % (Auto) Baso % (Auto) Neut # (Auto) Lymph # (Auto) Weld # (Auto) Eos # (Auto) Baso # (Auto) WBC Differential Differential Comment Sodium Potassium Chloride Carbon Dioxide Anion Gap BUN Creatinine Estimated GFR POC Glucose 258 H 188 H Random Glucose Calcium Phosphorus Magnesium Total Bilirubin AST ALT Alkaline Phosphatase Total Protein Albumin Random Vancomycin 12/25/17 12/25/17 12/25/17 18:34 20:32 23:23 WBC RBC Hgb Hct MCV MCH MCHC RDW Plt Count MPV Neut % (Auto) Lymph % (Auto) Weld % (Auto) Eos % (Auto) Baso % (Auto) Neut # (Auto) Lymph # (Auto) Weld # (Auto) Eos # (Auto) Baso # (Auto) WBC Differential Differential Comment Sodium Potassium Chloride Carbon Dioxide Anion Gap BUN Creatinine Estimated GFR POC Glucose 192 H 146 H 95 Random Glucose Calcium Phosphorus Magnesium Total Bilirubin AST ALT Alkaline Phosphatase Total Protein Albumin Random Vancomycin 12/26/17 12/26/17 12/26/17 04:16 04:16 04:22 WBC 6.7 RBC 3.02 L Hgb 8.6 L Hct 27.0 L MCV 89.5 MCH 28.4 MCHC 31.7 L RDW 17.5 H Plt Count 169 MPV 9.6 Neut % (Auto) 72.2 H Lymph % (Auto) 18.1 Weld % (Auto) 7.2 Eos % (Auto) 2.3 Baso % (Auto) 0.2 Neut # (Auto) 4.8 Lymph # (Auto) 1.2 Weld # (Auto) 0.5 Eos # (Auto) 0.2 Baso # (Auto) 0.0 WBC Differential . Differential Comment Auto diff final Sodium 139 Potassium 3.2 L Chloride 98 Carbon Dioxide 29.5 Anion Gap 12 BUN 25 H Creatinine 7.22 H Estimated GFR 9 L POC Glucose 185 H Random Glucose 186 H Calcium 8.1 L Phosphorus 3.9 Magnesium 2.0 Total Bilirubin 0.6 AST 10 L ALT 14 Alkaline Phosphatase 84 Total Protein 7.8 D Albumin 3.2 L Random Vancomycin 14.2 12/26/17 08:28 WBC RBC Hgb Hct MCV MCH MCHC RDW Plt Count MPV Neut % (Auto) Lymph % (Auto) Weld % (Auto) Eos % (Auto) Baso % (Auto) Neut # (Auto) Lymph # (Auto) Weld # (Auto) Eos # (Auto) Baso # (Auto) WBC Differential Differential Comment Sodium Potassium Chloride Carbon Dioxide Anion Gap BUN Creatinine Estimated GFR POC Glucose 286 H Random Glucose Calcium Phosphorus Magnesium Total Bilirubin AST ALT Alkaline Phosphatase Total Protein Albumin Random Vancomycin Microbiology 12/24/17 07:56 Blood - Peripheral Aerobic Blood Culture - Preliminary No growth in 1 day 12/24/17 07:56 Blood - Peripheral Anaerobic Blood Culture - Preliminary No growth in 1 day 12/23/17 13:15 Blood - Peripheral Aerobic Blood Culture - Preliminary No growth in 2 days 12/23/17 13:15 Blood - Peripheral Anaerobic Blood Culture - Preliminary No growth in 2 days 12/23/17 00:55 Sputum - Expectorated Sputum Gram Stain - Final 12/23/17 00:55 Sputum - Expectorated Sputum Sputum Culture - Final Heavy growth normal respiratory benson <Rosetta Mathew - Last Filed: 12/26/17 10:32> - Labs CBC & Chem 7: 12/26/17 04:16 12/26/17 04:16 Laboratory Results - last 24 hr 12/25/17 12/25/17 12/25/17 15:15 15:30 18:34 WBC RBC Hgb 8.7 L Hct 28.0 L MCV MCH MCHC RDW Plt Count MPV Neut % (Auto) Lymph % (Auto) Weld % (Auto) Eos % (Auto) Baso % (Auto) Neut # (Auto) Lymph # (Auto) Weld # (Auto) Eos # (Auto) Baso # (Auto) WBC Differential Differential Comment Sodium Potassium Chloride Carbon Dioxide Anion Gap BUN Creatinine Estimated GFR POC Glucose 188 H 192 H Random Glucose Calcium Phosphorus Magnesium Total Bilirubin AST ALT Alkaline Phosphatase Total Protein Albumin Random Vancomycin 12/25/17 12/25/17 12/26/17 20:32 23:23 04:16 WBC 6.7 RBC 3.02 L Hgb 8.6 L Hct 27.0 L MCV 89.5 MCH 28.4 MCHC 31.7 L RDW 17.5 H Plt Count 169 MPV 9.6 Neut % (Auto) 72.2 H Lymph % (Auto) 18.1 Weld % (Auto) 7.2 Eos % (Auto) 2.3 Baso % (Auto) 0.2 Neut # (Auto) 4.8 Lymph # (Auto) 1.2 Weld # (Auto) 0.5 Eos # (Auto) 0.2 Baso # (Auto) 0.0 WBC Differential . Differential Comment Auto diff final Sodium Potassium Chloride Carbon Dioxide Anion Gap BUN Creatinine Estimated GFR POC Glucose 146 H 95 Random Glucose Calcium Phosphorus Magnesium Total Bilirubin AST ALT Alkaline Phosphatase Total Protein Albumin Random Vancomycin 12/26/17 12/26/17 12/26/17 04:16 04:22 08:28 WBC RBC Hgb Hct MCV MCH MCHC RDW Plt Count MPV Neut % (Auto) Lymph % (Auto) Weld % (Auto) Eos % (Auto) Baso % (Auto) Neut # (Auto) Lymph # (Auto) Weld # (Auto) Eos # (Auto) Baso # (Auto) WBC Differential Differential Comment Sodium 139 Potassium 3.2 L Chloride 98 Carbon Dioxide 29.5 Anion Gap 12 BUN 25 H Creatinine 7.22 H Estimated GFR 9 L POC Glucose 185 H 286 H Random Glucose 186 H Calcium 8.1 L Phosphorus 3.9 Magnesium 2.0 Total Bilirubin 0.6 AST 10 L ALT 14 Alkaline Phosphatase 84 Total Protein 7.8 D Albumin 3.2 L Random Vancomycin 14.2 Microbiology 12/24/17 07:56 Blood - Peripheral Aerobic Blood Culture - Preliminary No growth in 2 days 12/24/17 07:56 Blood - Peripheral Anaerobic Blood Culture - Preliminary No growth in 2 days 12/23/17 13:15 Blood - Peripheral Aerobic Blood Culture - Preliminary No growth in 3 days 12/23/17 13:15 Blood - Peripheral Anaerobic Blood Culture - Preliminary No growth in 3 days 12/23/17 00:55 Sputum - Expectorated Sputum Gram Stain - Final 12/23/17 00:55 Sputum - Expectorated Sputum Sputum Culture - Final Heavy growth normal respiratory benson <John Paul Amezquita - Last Filed: 12/26/17 11:30> Assessment and Plan (1) Nausea and vomiting Status: Acute Code(s): R11.2 - Nausea with vomiting, unspecified - Plan - Plan his patient is a 62-year-old male with a past medical history significant for 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 This patient presented to [facility] from a local rehab center with complaints of burning chest wall pain while undergoing dialysis. Patient states that this discomfort is described as burning and intermittent, associated with nausea. He states onset of burning epigastric pain, chest wall pain 1 week ago accompanied by dark brown emesis. He endorses that he experiences this discomfort at least twice daily. States pain is increased after meals and accompanied by vomiting after meals. Patient has had multiple episodes of projectile vomiting in the emergency room. CT of the abdomen and pelvis done on admission revealed the followin. Diffuse hepatic fatty infiltration. 2. 5 cm cystic structure possibly within the wall of the distal esophagus. Initially I thought this represented a paraesophageal hernia difficult to identify a communication to the lumen of the gastric cardia. 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 I do not believe that there is compromise of the esophageal lumen, however. Endoscopy or upper GI could be performed for further characterization. Our service has been consulted to evaluate patient's projectile vomiting of dark brown emesis, abnormal esophagus and burning chest wall/epigastric pain. 09/19/2017 EGD revealed the following findings: 1. Grade C esophagitis biopsy from the distal esophagus 2. Mild duodenitis biopsy from the antrum to rule out H. pylori Stomach normal 3. Retroflexed views revealed no abnormalities Home medication includes omeprazole 20 mg p.o. daily. Patient denied any known use of NSAIDs or aspirin. Hemoglobin 12.3 hematocrit 37.8 platelet count 252 INR 1.1 total bilirubin 0.5 AST 31 ALT 17 alk phos 117 albumin 3.2 12/25/2017 patient is status post EGD performed on 12/24/2017 findings include LA class D esophagitis and hiatal hernia no obvious bleeding EGD to be repeated as needed as needed Hemoglobin currently 8.7 decreased WBC count 10.2 patient is asymptomatic from any nausea vomiting abdominal pain or any obvious bleeding. Discussed with patient the need for colonoscopy after dialysis Tuesday. Consents and orders placed for prep Tuesday p.m. patient should be more stable after dialysis Tuesday p.m. 12/26/2017 patient initially had possible upper GI bleed, vomiting dark brown emesis which has subsided. Status post EGD as listed above and currently being managed on PPI. Hemoglobin being monitored 8.6 which appears to be stable, bilirubin and LFTs are normal. Plan is for colonoscopy Tuesday after dialysis treatment to further evaluate for any obvious GI bleeding. Patient swallows food with applesauce consistency and no liquids. Discussed possible NG tube for prep versus soapsud enemas. Plan Diet clear liquids in a.m. EGD biopsies are pending Avoid NSAIDs, antireflux precautions Okay for NG tube if needed for prep, if unable to insert may do subset enemas x2 PPI Zofran as needed Bowel regimen Monitor labs Further recommendations to follow, plan for colonoscopy 12/27/2017 after dialysis treatment Patient was seen per myself and Dr. Amezquita, note was written on his behalf <Rosetta Mathew - Last Filed: 12/26/17 10:32> (1) Nausea and vomiting Status: Acute Code(s): R11.2 - Nausea with vomiting, unspecified - Attending Attestation Patient was seen and examined, agree with above note and plan, colonoscopy in the near future, meanwhile we will continue supportive care current care <John Paul Amezquita - Last Filed: 12/26/17 11:30> <Rosetta Mathew - Last Filed: 12/26/17 10:32> (1) Nausea and vomiting Qualifiers: Vomiting type: unspecified Vomiting Intractability: non-intractable Qualified Code(s): R11.2 - Nausea with vomiting, unspecified <John Paul Amezquita - Last Filed: 12/26/17 11:30> (1) Nausea and vomiting Qualifiers: Vomiting type: unspecified Vomiting Intractability: non-intractable Qualified Code(s): R11.2 - Nausea with vomiting, unspecified
[2017-12-26] MEDS ORDERED: Vancomycin Inj 1,000 MG in Sodium Chlor 0.9% Inj 250 ML IV.SIG SCH (11:00)
--- NOTE | 2017-12-26 12:13 | P.PNWCN ---
Wound Care Nurse Consult Description: Consult for Pressure ulcer to sacral per Dr Dunlap Communicated with: VALD Bertrand Recommendation: Continue with Calazime to sacrum/bilateral buttocks BID and PRN for moisture. Wound is mixed etiology moisture and friction. Please do not place thick cotton pull pad under patient. Use disposable underpad for moisture. Reposition patient Q2H and use the bed to assist in manual position changes. Additional information: Patient seen on [facility] for sacral wound evaluation. Wounds noted to upper bilateral buttocks are mixed etiology moisture and friction with jagged wound margins and partial thickness skin loss with 100% pink moist tissue noted. Wounds are not actively draining and have no odor. Patient was found to be lying on a thick cotton pull pad which is contraindicated with the [place] mattresses. Education was given regarding the use of moisture wicking pad vs cotton pull pads. Patient was positioned to his right side with assistance from VLAD Bertrand prior to leaving patient room. Cotton pull pad was removed from under patient, leaving 2 staggered moisture wicking disposable pads.
--- NOTE | 2017-12-26 13:18 | P.PNCC ---
Subjective Subjective Remarks/Hospital Course: This is a 62yM with history of ESRD on HD who presents with multiple days of nausea and vomiting. initially admitted to Obs status where he developed hypotension and acute altered mental status. rapid response called and patient emergently transferred to ICU. patient more awake on arrival to ICU: now answering questions and following commands. BP initially 70s/30s, which didn't respond to 1L crystalloid bolus downstairs. additional 500cc 5% albumin given. BP now 110s/60s. Notable hypochloremia, hyponatremia on labs. Severe metabolic alkalosis on ABG with compensatory hypoventilation. HD this morning with 4L volume removed. Full ROS unobtainable from the patient due to his acute mental status change- limited ROS negative for chest pain, SOB, diarrhea. +nausea/ vomiting. + toe pain: patient states his toes are tingling. no change in motor or sensation in his lower extremities. pulses are 2+. 12/24: Afebrile. During hemodialysis unable to take any fluid off. Remains hypotensive. Currently bolusing. We will place central line and start low- dose norepinephrine. Became hypotensive and unresponsive 0.2 of hydromorphone. 12/25: Currently alternate CODE STATUS intubation only. Remains on norepinephrine drip at 10 mcg/min. Started on antibiotics overnight. Cultures no growth today. Cortisol level 15 which is appropriate. Remains on Midodrine and will add fludrocortisone today. Echocardiogram was ordered for today. Subjective 12/26: Plan for colonoscopy in a.m. Remains on norepinephrine drip at 8 mg/ min. Likely currently pending. CVP is low. Possibly still dry?. Echocardiogram ordered along with holding. Does not look or appear septic stigmata. Objective Vital Signs / I&O: Vital Signs 12/25/17 15:52 12/25/17 16:01 12/25/17 19:31 Temperature 98.5 F Pulse Rate 74 72 71 Respiratory Rate 18 22 16 Blood Pressure 180/68 H Pulse Oximetry 93 L 97 12/25/17 20:00 12/25/17 20:15 12/25/17 20:30 Temperature 98.3 F Pulse Rate 72 75 74 Respiratory Rate 24 25 H 24 Blood Pressure 111/55 L 120/71 Pulse Oximetry 93 L 97 100 12/25/17 20:45 12/25/17 21:00 12/25/17 21:15 Temperature Pulse Rate 75 84 80 Respiratory Rate 16 20 Blood Pressure 109/64 108/63 85/57 L Pulse Oximetry 100 95 99 12/25/17 21:30 12/25/17 21:45 12/25/17 22:00 Temperature Pulse Rate 77 83 73 Respiratory Rate Blood Pressure 113/62 111/68 Pulse Oximetry 94 L 95 100 12/25/17 22:01 12/25/17 22:15 12/25/17 22:30 Temperature Pulse Rate 74 69 71 Respiratory Rate Blood Pressure 81/49 L 110/62 105/62 Pulse Oximetry 100 94 L 90 L 12/25/17 22:45 12/25/17 23:00 12/25/17 23:15 Temperature Pulse Rate 73 72 70 Respiratory Rate Blood Pressure 113/67 110/66 125/70 Pulse Oximetry 97 98 99 12/25/17 23:30 12/25/17 23:45 12/26/17 00:00 Temperature 97.0 F L Pulse Rate 81 78 77 Respiratory Rate Blood Pressure 120/74 112/58 L 110/53 L Pulse Oximetry 94 L 94 L 96 12/26/17 00:20 12/26/17 00:40 12/26/17 01:00 Temperature Pulse Rate 77 77 75 Respiratory Rate Blood Pressure 110/70 105/59 L 105/62 Pulse Oximetry 98 95 95 12/26/17 01:20 12/26/17 01:40 12/26/17 02:00 Temperature Pulse Rate 72 71 77 Respiratory Rate Blood Pressure 95/54 L 105/61 96/55 L Pulse Oximetry 93 L 97 97 12/26/17 02:20 12/26/17 02:40 12/26/17 03:00 Temperature Pulse Rate 84 118 H 87 Respiratory Rate 24 Blood Pressure 116/65 112/60 113/65 Pulse Oximetry 99 97 93 L 12/26/17 03:25 12/26/17 03:41 12/26/17 04:00 Temperature 97.5 F L Pulse Rate 83 80 81 Respiratory Rate 25 H 24 23 Blood Pressure 101/54 L 108/51 L 113/65 Pulse Oximetry 99 92 L 82 L 12/26/17 04:01 12/26/17 04:10 12/26/17 04:21 Temperature Pulse Rate 84 79 79 Respiratory Rate 25 H 18 20 Blood Pressure 76/38 L 95/52 L 72/35 L Pulse Oximetry 91 L 94 L 97 12/26/17 04:25 12/26/17 05:00 12/26/17 06:00 Temperature Pulse Rate 78 80 83 Respiratory Rate 20 22 19 Blood Pressure 115/57 L 66/31 L Pulse Oximetry 95 78 L 96 12/26/17 06:02 12/26/17 06:20 12/26/17 06:40 Temperature Pulse Rate 79 74 73 Respiratory Rate 15 15 17 Blood Pressure 101/59 L 122/68 98/52 L Pulse Oximetry 96 100 99 12/26/17 07:29 12/26/17 08:00 12/26/17 09:00 Temperature 98 F Pulse Rate 88 74 73 Respiratory Rate 16 13 Blood Pressure 137/66 Pulse Oximetry 100 69 L 12/26/17 11:17 12/26/17 11:54 Temperature Pulse Rate 73 70 Respiratory Rate 15 Blood Pressure Pulse Oximetry Intake & Output 12/25/17 12/26/17 12/26/17 18:59 06:59 18:59 Intake Total 550 / 550 300 / 300 Output Total 0 / 0 0 / 0 Balance 550 / 550 300 / 300 Intake: IV 50 / 50 300 / 300 Levophed Inj 16 MG In NS Inj 250 / 250 234 ML @ 2 MCG/MIN 1.87 mls/hr IV.CONT TITRATE PRN Rx#: [id number] Zosyn 2.25 GM Premix 50 ML @ 50 / 50 50 / 50 100 mls/hr IV.SIG Q8H FLAQUITA Rx#: [id number] Oral 500 / 500 0 / 0 Anesthesia Amount 0 / 0 Output: Urine 0 / 0 0 / 0 Emesis 0 / 0 Hemodialysis Amount 0 / 0 Gastric Drainage 0 / 0 Left Nare 0 / 0 Other: Date of Last Bowel Movement 12/25/17 12/25/17 12/25/17 # Bowel Movements 1 # Emeses 0 # Oral Regurgitations 0 Result Diagrams: 12/26/17 04:16 12/26/17 04:16 Other Results: Microbiology 12/24/17 07:56 Blood - Peripheral Aerobic Blood Culture - Preliminary No growth in 2 days 12/24/17 07:56 Blood - Peripheral Anaerobic Blood Culture - Preliminary No growth in 2 days 12/23/17 13:15 Blood - Peripheral Aerobic Blood Culture - Preliminary No growth in 3 days 12/23/17 13:15 Blood - Peripheral Anaerobic Blood Culture - Preliminary No growth in 3 days 12/23/17 00:55 Sputum - Expectorated Sputum Gram Stain - Final 12/23/17 00:55 Sputum - Expectorated Sputum Sputum Culture - Final Heavy growth normal respiratory benson Imaging: Chest X-Ray 12/22/17 11:32 CONCLUSION: 1. Right lower lung zone atelectasis/scarring. Chest CTA 12/22/17 12:38 CONCLUSION: 1. No evidence of pulmonary embolism 2. Abnormal appearance of the esophagus Abdomen/Pelvis CT 12/22/17 15:37 CONCLUSION: 1. Diffuse hepatic fatty infiltration. 2. 5 cm cystic structure possibly within the wall of the distal esophagus. Initially I thought this represented a paraesophageal hernia difficult to identify a communication to the lumen of the gastric cardia. 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 I do not believe that there is compromise of the esophageal lumen, however. Endoscopy or upper GI could be performed for further characterization. 3. Both kidneys are markedly atrophic. 4. Series of stents traversing the left external iliac vein and left SFV. Chest X-Ray 12/24/17 17:22 CONCLUSION: Placement of right central line in superior vena cava without pneumothorax. New lung consolidation at the bases since December 22. Chest X-Ray 12/25/17 00:00 CONCLUSION: Stable chest x-ray with bibasilar opacities and likely a small left pleural effusion. Objective Remarks: gen: This is a 62-year-old AA frail male who appears much older than stated age , lying in bed. heent: nc. at. perrl. mucous membranes moderately moist and pink. Oropharynx without erythema. neck: no jvd. trachea midline. Right IJ CVL is clean dry and intact chest: equal chest rise. Nasal cannula. No muscle use cv: normal rate, regular rhythm. sinus. abd: soft, nontender, nondistended. no guarding. extr: left groin AVF with + thrill. distal pulses 2+. neuro: arouses and follows commands. NICHOLE 5/5 in all extremities. sensation grossly intact. no focal deficits. Assessment and Plan - Assessment and Plan Plan: Neuro/Psych: Acute metabolic encephalopathy Bipolar disorder Paranoid schizophrenia Depression Left eye blindness Insomnia Chronic narcotic use Monitor neuro status, awake and alert On Risperidone 0.5 mg every 12 hours, trazodone 150 mg at night for anxiety/ depression On escitalopram oxalate 10 mg at night for depression, lamotrigine 200 mg at night for psychosis On gabapentin 200 mg daily for peripheral neuropathy Discontinue hydromorphone due to altered mental status. Received only 0.1 mg and became unresponsive Was receiving tramadol as an outpatient.. Resume at 50 mg every 6 hours as needed pain CV: Severe sepsis Lactic acidosis- cleared History of chronic diastolic heart failure Hypertension by history Dyslipidemia Coronary disease status post stent placement Peripheral vascular disease Currently hypotensive Monitor HR and BP keep MAP>65mmHg Norepinephrine drip to maintain mean arterial pressure greater than equal 65. Currently on 10 mg/min Continue midodrine 10 mg by mouth 3 times a day and add fludrocortisone 0.1 mg daily Echo showed EF 60-65% 11/12 so doubt cardiac effect Continue pravastatin 20 mg daily for hyperlipidemia CVP ordered Resp: Acute hypoxemic respiratory insufficiency Currently on 3 L nasal cannula Incentive spirometry while awake Albuterol/ipratropium aerosols every 4 hours with albuterol nebs every 2 hours. Aggressive pulmonary toilet GI: Gastroesophageal reflux disease History of esophagitis History of colonic polyps Hiatal hernia Currently on clear liquid diet per GI Currently on pantoprazole 40 mg twice daily s/p EGD LA class D esophagitis and hiatal hernia. Docusate sodium/Senokot for bowel regimen For colonoscopy in a.m. 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 Thrill. Continue Sevelamer 2.4 g 3 times a day for hyperphosphatemia Continue cinacalcet 30 mg daily for secondary hyperparathyroidism Heme: Anemia, normocytic Monitor CBC daily. Continue iron sulfate 325 mg 3 times daily with vitamin C ID: Monitor for signs and symptomatology infection Currently on vancomycin and piperacillin/tazobactam Blood cultures 12/23 and no growth to date FEN: Acute hypokalemia Will give 10 mEq potassium chloride p.o. x1 now. Recheck in a.m. 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 Right IJ CVL day #3 placed 12/24 Prophylaxis - GI - famotidine - DVT - SCD/ heparin SQ .Family request hospice consultation. Wound care consult Level 2
[2017-12-26] MEDS ORDERED: Magnesium Citrate Liq 300 ML Bottle PO ONE ×2 (16:00→18:00)
[2017-12-26] MEDS ORDERED: PEG 3350/E-Lyte Soln 4000 ML Bottle PO ONE (16:30)
--- NOTE | 2017-12-26 16:37 | P.PNNP ---
Subjective Interval history: Plan of colonoscopy tomorrow, hemodialysis in morning. Hypotensive on levephed gtt and midodrine. Florinef added today. <Khalida Laura - Last Filed: 12/26/17 16:28> Physical Exam Vital signs: Vital Signs 12/25/17 19:31 12/25/17 20:00 12/25/17 20:15 Temperature 98.3 F Pulse Rate 71 72 75 Respiratory Rate 16 24 25 H Blood Pressure 111/55 L Pulse Oximetry 97 93 L 97 12/25/17 20:30 12/25/17 20:45 12/25/17 21:00 Temperature Pulse Rate 74 75 84 Respiratory Rate 24 16 20 Blood Pressure 120/71 109/64 108/63 Pulse Oximetry 100 100 95 12/25/17 21:15 12/25/17 21:30 12/25/17 21:45 Temperature Pulse Rate 80 77 83 Respiratory Rate Blood Pressure 85/57 L 113/62 111/68 Pulse Oximetry 99 94 L 95 12/25/17 22:00 12/25/17 22:01 12/25/17 22:15 Temperature Pulse Rate 73 74 69 Respiratory Rate Blood Pressure 81/49 L 110/62 Pulse Oximetry 100 100 94 L 12/25/17 22:30 12/25/17 22:45 12/25/17 23:00 Temperature Pulse Rate 71 73 72 Respiratory Rate Blood Pressure 105/62 113/67 110/66 Pulse Oximetry 90 L 97 98 12/25/17 23:15 12/25/17 23:30 12/25/17 23:45 Temperature Pulse Rate 70 81 78 Respiratory Rate Blood Pressure 125/70 120/74 112/58 L Pulse Oximetry 99 94 L 94 L 12/26/17 00:00 12/26/17 00:20 12/26/17 00:40 Temperature 97.0 F L Pulse Rate 77 77 77 Respiratory Rate Blood Pressure 110/53 L 110/70 105/59 L Pulse Oximetry 96 98 95 12/26/17 01:00 12/26/17 01:20 12/26/17 01:40 Temperature Pulse Rate 75 72 71 Respiratory Rate Blood Pressure 105/62 95/54 L 105/61 Pulse Oximetry 95 93 L 97 12/26/17 02:00 12/26/17 02:20 12/26/17 02:40 Temperature Pulse Rate 77 84 118 H Respiratory Rate Blood Pressure 96/55 L 116/65 112/60 Pulse Oximetry 97 99 97 12/26/17 03:00 12/26/17 03:25 12/26/17 03:41 Temperature Pulse Rate 87 83 80 Respiratory Rate 24 25 H 24 Blood Pressure 113/65 101/54 L 108/51 L Pulse Oximetry 93 L 99 92 L 12/26/17 04:00 12/26/17 04:01 12/26/17 04:10 Temperature 97.5 F L Pulse Rate 81 84 79 Respiratory Rate 23 25 H 18 Blood Pressure 113/65 76/38 L 95/52 L Pulse Oximetry 82 L 91 L 94 L 12/26/17 04:21 12/26/17 04:25 12/26/17 05:00 Temperature Pulse Rate 79 78 80 Respiratory Rate 20 20 22 Blood Pressure 72/35 L 115/57 L Pulse Oximetry 97 95 78 L 12/26/17 06:00 12/26/17 06:02 12/26/17 06:20 Temperature Pulse Rate 83 79 74 Respiratory Rate 19 15 15 Blood Pressure 66/31 L 101/59 L 122/68 Pulse Oximetry 96 96 100 12/26/17 06:40 12/26/17 07:29 12/26/17 08:00 Temperature 98 F Pulse Rate 73 88 74 Respiratory Rate 17 16 13 Blood Pressure 98/52 L 137/66 Pulse Oximetry 99 100 69 L 12/26/17 09:00 12/26/17 11:17 12/26/17 11:54 Temperature Pulse Rate 73 73 70 Respiratory Rate 15 Blood Pressure Pulse Oximetry 12/26/17 12:00 12/26/17 13:54 12/26/17 14:31 Temperature 97.9 F Pulse Rate 73 79 Respiratory Rate 16 20 Blood Pressure 119/65 Pulse Oximetry 100 12/26/17 15:09 Temperature Pulse Rate 77 Respiratory Rate 16 Blood Pressure Pulse Oximetry Intake & Output 12/25/17 12/26/17 12/26/17 18:59 06:59 18:59 Intake Total 550 / 550 350 / 350 Output Total 0 / 0 0 / 0 Balance 550 / 550 350 / 350 Intake: IV 50 / 50 350 / 350 Levophed Inj 16 MG In NS Inj 250 / 250 234 ML @ 2 MCG/MIN 1.87 mls/hr IV.CONT TITRATE PRN Rx#: [id number] Zosyn 2.25 GM Premix 50 ML @ 50 / 50 100 / 100 100 mls/hr IV.SIG Q8H FLAQUITA Rx#: [id number] Oral 500 / 500 0 / 0 Anesthesia Amount 0 / 0 Output: Urine 0 / 0 0 / 0 Emesis 0 / 0 Hemodialysis Amount 0 / 0 Gastric Drainage 0 / 0 Left Nare 0 / 0 Other: Date of Last Bowel Movement 12/25/17 12/25/17 12/25/17 # Bowel Movements 1 # Emeses 0 # Oral Regurgitations 0 Narrative: General: Alert and responsive. NAD. NECK: No JVD, trachea midline. Respiratory: breath sounds are diminished bilaterally. No accessory muscle use. Cardiovascular: normal rate, regular rhythm. sinus Abdomen: soft, nontender, nondistended. no guarding. Extremities: left groin AVF with + thrill. distal pulses 2+. Neuro: In bed, alert, following some commands, not in distress. <Khalida Laura - Last Filed: 12/26/17 16:28> Vital signs: Vital Signs 12/27/17 17:45 12/27/17 18:00 12/27/17 18:15 Temperature Pulse Rate 85 85 80 Respiratory Rate 21 12 24 Blood Pressure 106/56 L 98/53 L 109/57 L Pulse Oximetry 95 99 70 L 12/27/17 18:45 12/27/17 19:00 12/27/17 19:15 Temperature Pulse Rate 76 79 82 Respiratory Rate 22 18 15 Blood Pressure 88/55 L 91/55 L 94/55 L Pulse Oximetry 67 L 97 100 12/27/17 19:30 12/27/17 19:45 12/27/17 19:55 Temperature Pulse Rate 80 80 80 Respiratory Rate 15 15 14 Blood Pressure 91/58 L 95/51 L Pulse Oximetry 100 93 L 12/27/17 20:00 12/27/17 20:15 12/27/17 20:30 Temperature 98.2 F Pulse Rate 84 87 88 Respiratory Rate 25 H 22 19 Blood Pressure 98/57 L 111/66 95/58 L Pulse Oximetry 99 100 100 12/27/17 20:37 12/27/17 20:45 12/27/17 21:00 Temperature Pulse Rate 83 86 Respiratory Rate 15 20 Blood Pressure 106/64 105/55 L Pulse Oximetry 100 100 100 12/27/17 21:15 12/27/17 21:30 12/27/17 21:46 Temperature Pulse Rate 91 H 83 90 Respiratory Rate 24 24 23 Blood Pressure 98/54 L 96/51 L 98/54 L Pulse Oximetry 100 99 100 12/27/17 22:00 12/27/17 22:16 12/27/17 22:30 Temperature Pulse Rate 82 90 84 Respiratory Rate 15 23 19 Blood Pressure 100/50 L 101/55 L 93/54 L Pulse Oximetry 100 99 100 12/27/17 22:45 12/27/17 23:00 12/27/17 23:15 Temperature Pulse Rate 85 80 79 Respiratory Rate 24 15 19 Blood Pressure 98/57 L 101/50 L 90/52 L Pulse Oximetry 90 L 85 L 97 12/27/17 23:30 12/27/17 23:45 12/28/17 00:00 Temperature 98.5 F Pulse Rate 81 80 88 Respiratory Rate 17 9 L 16 Blood Pressure 89/51 L 88/52 L 86/59 L Pulse Oximetry 97 100 97 12/28/17 00:15 12/28/17 00:30 12/28/17 00:45 Temperature Pulse Rate 79 89 86 Respiratory Rate 17 19 15 Blood Pressure 124/75 102/50 L 102/52 L Pulse Oximetry 77 L 90 L 100 12/28/17 01:00 12/28/17 01:04 12/28/17 01:16 Temperature Pulse Rate 95 H 96 H 89 Respiratory Rate 32 H 17 15 Blood Pressure 94/57 L 97/54 L Pulse Oximetry 97 100 99 12/28/17 01:30 12/28/17 01:45 12/28/17 02:00 Temperature Pulse Rate 83 82 85 Respiratory Rate 22 17 22 Blood Pressure 116/62 103/55 L 101/52 L Pulse Oximetry 100 98 99 12/28/17 02:15 12/28/17 02:18 12/28/17 02:30 Temperature Pulse Rate 84 86 74 Respiratory Rate 12 11 L 12 Blood Pressure 85/48 L 93/57 L 92/54 L Pulse Oximetry 96 93 L 96 12/28/17 02:45 12/28/17 03:00 12/28/17 03:15 Temperature Pulse Rate 78 85 74 Respiratory Rate 22 15 17 Blood Pressure 94/59 L 90/55 L 85/50 L Pulse Oximetry 94 L 96 99 12/28/17 03:30 12/28/17 03:33 12/28/17 03:45 Temperature Pulse Rate 85 90 84 Respiratory Rate 16 23 16 Blood Pressure 69/46 L 96/63 L 101/55 L Pulse Oximetry 88 L 100 97 12/28/17 04:00 12/28/17 04:15 12/28/17 04:30 Temperature 98.5 F Pulse Rate 84 91 H 84 Respiratory Rate 19 19 19 Blood Pressure 93/61 L 90/50 L 96/55 L Pulse Oximetry 97 99 100 12/28/17 04:45 12/28/17 06:00 12/28/17 07:00 Temperature Pulse Rate 84 88 Respiratory Rate 26 H Blood Pressure 88/53 L Pulse Oximetry 95 96 12/28/17 08:00 12/28/17 08:31 12/28/17 10:00 Temperature 97.8 F Pulse Rate 82 79 79 Respiratory Rate 19 18 Blood Pressure 101/53 L Pulse Oximetry 100 12/28/17 12:00 12/28/17 14:00 12/28/17 16:00 Temperature 97.9 F 97.7 F Pulse Rate 80 80 71 Respiratory Rate 24 20 Blood Pressure 100/59 L 93/50 L Pulse Oximetry 99 97 12/28/17 16:30 Temperature Pulse Rate 76 Respiratory Rate 18 Blood Pressure Pulse Oximetry Intake & Output 12/27/17 12/28/17 12/28/17 18:59 06:59 18:59 Intake Total 700 / 700 300 / 300 50 / 50 Output Total 1999 Balance -1300 / -1300 300 / 300 50 / 50 Intake: IV 50 / 50 100 / 100 50 / 50 Zosyn 2.25 GM Premix 50 ML @ 50 / 50 100 / 100 50 / 50 100 mls/hr IV.SIG Q8H FLAQUITA Rx#: [id number] Oral 650 / 650 200 / 200 Output: Hemodialysis Amount 1999 Other: Date of Last Bowel Movement 12/27/17 12/28/17 12/28/17 # Bowel Movements 1 3 <Lizeth Bell - Last Filed: 12/28/17 17:39> Assessment and Plan - Assessment (1) Aspiration pneumonia of both lungs Code(s): J69.0 - Pneumonitis due to inhalation of food and vomit Qualifiers: Aspiration pneumonia type: unspecified Lung location: lower lobe of lung Qualified Code(s): J69.0 - Pneumonitis due to inhalation of food and vomit (2) End stage renal disease on dialysis Code(s): N18.6 - End stage renal disease; Z99.2 - Dependence on renal dialysis Status: Acute (3) Diabetes Code(s): E11.9 - Type 2 diabetes mellitus without complications Status: Chronic Qualifiers: Diabetes mellitus type: type 2 Chronic kidney disease stage: on chronic dialysis (4) Syncope Code(s): R55 - Syncope and collapse Status: Acute Qualifiers: Syncope type: unspecified Qualified Code(s): R55 - Syncope and collapse (5) Nausea and vomiting Code(s): R11.2 - Nausea with vomiting, unspecified Status: Acute Qualifiers: Vomiting type: unspecified Vomiting Intractability: non-intractable Qualified Code(s): R11.2 - Nausea with vomiting, unspecified - Plan Patient with end stage renal disease, was admitted with chest and upper abd. pain. HD on TTS. EGD done on 12/23,results noted, follow Hgb. On Zosyn and Vano. Hypokalemia with replacement given. PO4 normal continue Renvela. Hypotension on levophed and midodrine. Florinef added today. Plan for colonoscopy and hemodialysis tomorrow. <Khalida Laura - Last Filed: 12/26/17 16:28> - Assessment (1) End stage renal disease on dialysis Code(s): N18.6 - End stage renal disease; Z99.2 - Dependence on renal dialysis Status: Acute (2) Aspiration pneumonia of both lungs Code(s): J69.0 - Pneumonitis due to inhalation of food and vomit Qualifiers: Aspiration pneumonia type: unspecified Lung location: lower lobe of lung Qualified Code(s): J69.0 - Pneumonitis due to inhalation of food and vomit (3) Diabetes Code(s): E11.9 - Type 2 diabetes mellitus without complications Status: Chronic Qualifiers: Diabetes mellitus type: type 2 Chronic kidney disease stage: on chronic dialysis (4) Syncope Code(s): R55 - Syncope and collapse Status: Acute Qualifiers: Syncope type: unspecified Qualified Code(s): R55 - Syncope and collapse (5) Nausea and vomiting Code(s): R11.2 - Nausea with vomiting, unspecified Status: Acute Qualifiers: Vomiting type: unspecified Vomiting Intractability: non-intractable Qualified Code(s): R11.2 - Nausea with vomiting, unspecified (6) Anemia Code(s): D64.9 - Anemia, unspecified Status: Acute (7) Hypotension Code(s): I95.9 - Hypotension, unspecified Status: Acute - Plan Patient seen and examined, agree with above. BP is low, on pressors, Florinef is added. HD to continue TTS. For colonoscopy in AM. <Lizeth Bell - Last Filed: 12/28/17 17:39>
--- NOTE | 2017-12-26 18:05 | ECG ---
Date Performed: 12/23/2017 Time Performed: 04:52:03 PTAGE: 62 years EKG: SINUS TACHYCARDIA POSSIBLE LEFT ATRIAL ENLARGEMENT BORDERLINE LEFT AXIS DEVIATION NONSPECIF IC T-WAVE ABNORMALITY ABNORMAL RHYTHM ECG PREVIOUS TRACING : 12/22/2017 17.52 Since the previous tracing, no significant change noted DOCTOR: Mohsen Kelsey Interpretating Date/Time 12/26/2017 18:03:41
--- NOTE | 2017-12-26 19:36 | ECHRPT ---
Indication: Heart failure, unspecified CONCLUSIONS The left ventricular systolic function is hyperdynamic with an estimated ejection fraction in the ra nge of 65- 70%. Normal left ventricular size. BP: / HR: Rhythm: MEASUREMENTS (Male / Female) Normal Values Technical Quality: 2D ECHO LV Diastolic Diameter PLAX 4.6 cm 4.2 - 5.9 / 3.9 - 5.3 cm LV Systolic Diameter PLAX 3.2 cm IVS Diastolic Thickness 1.3 cm 0.6 - 1.0 / 0.6 - 0.9 cm LVPW Diastolic Thickness 0.9 cm 0.6 - 1.0 / 0.6 - 0.9 cm LV Relative Wall Thickness 0.5 RV Internal Dim ED PLAX 2.0 cm FINDINGS LEFT VENTRICLE The left ventricular systolic function is hyperdynamic with an estimated ejection fraction in the ra nge of 65- 70%. Normal left ventricular size. Maria Teresa Waterman MD (Electronically Signed) Final Date:26 December 2017 19:35
--- NOTE | 2017-12-26 20:39 | ECG ---
Date Performed: 12/22/2017 Time Performed: 17:52:29 PTAGE: 62 years EKG: Sinus rhythm POSSIBLE LEFT ATRIAL ENLARGEMENT LOW QRS VOLTAGE IN PRECORDIAL LEADS Since previous tracing, no sign ificant change noted ABNORMAL ECG PREVIOUS TRACING : 12/10/2017 09.54 DOCTOR: Mohsen Kelsey Interpretating Date/Time 12/26/2017 20:37:46
--- NOTE | 2017-12-26 20:39 | ECG ---
Date Performed: 12/22/2017 Time Performed: 11:25:02 PTAGE: 62 years EKG: SINUS TACHYCARDIA LEFT ATRIAL ENLARGEMENT LOW QRS VOLTAGE IN PRECORDIAL LEADS Nonspecific T wave changes. Since previous tracing, no significant change noted ABNORMAL ECG PREVIOUS TRACING : 12/10/17 09.54.39 DOCTOR: Mohsen Kelsey Interpretating Date/Time 12/26/2017 20:37:32
[2017-12-26] MEDS: lamoTRIgine 100 MG Tablet PO SCH (22:42)
[2017-12-27] MEDS: Insulin NovoLIN Regular Correctional Sugar Inj SQ SCH ×6 (00:34→21:50)
[2017-12-27 04:35] LABS: Baso % (Auto) 0.4 % (0.0-2.0); Eos # (Auto) 0.2 th/mm3 (0.0-0.4); Eos % (Auto) 2.6 % (0.0-4.0); Hematocrit 27.9 % (39.0-51.0); Hemoglobin 8.7 gm/dL (13.0-17.0); Lymph # (Auto) 1.2 th/mm3 (1.0-4.8); Lymph % (Auto) 19.9 % (9.0-44.0); Mean Corpuscular HGB Conc 31.2 % (32.0-36.0); Mean Corpuscular Hemoglobin 27.8 pg (27.0-34.0); Mean Corpuscular Volume 88.9 fL (80.0-100.0); Mean Platelet Volume 9.2 fL (7.0-11.0); Mono # (Auto) 0.5 th/mm3 (0.0-0.9); Mono % (Auto) 7.7 % (0.0-8.0); Neut # (Auto) 4.1 th/mm3 (1.8-7.7); Neut % (Auto) 69.4 % (16.0-70.0); Platelet Count 184 th/mm3 (150-450); Red Blood Count 3.14 mil/mm3 (4.50-5.90); Red Cell Distribution Width 17.3 % (11.6-17.2); White Blood Count 5.9 th/mm3 (4.0-11.0)
--- NOTE | 2017-12-27 04:45 | XR ---
EXAM DATE: 12/27/2017 4:31 AM EDT AGE/SEX: 62 years / Male INDICATIONS: Short of breath. CLINICAL DATA: This is the patient's subsequent encounter. Patient reports that signs and symptoms h ave been present for 4 - 6 days and indicates a pain score of 0/10. MEDICAL/SURGICAL HISTORY: . AV fistula. BPH. Bipolar. Cerebral infarct. CKD. Left hand contract ure. Dysphagia. ESRD. Esophagitis. GERD. Heart failure. Hypothyroid. PVD. Dialysis. Schizophrenia. Di abetic . Cardiac catheterization. [place] [facility] [place]2017. . FINDINGS: Mild consolidation and small effusions seen at both lung bases and improved in the interim. No pneumo thorax. There is now a nasogastric tube, tip in the stomach. Right internal jugular central venous catheter w ith tip in the superior vena cava again noted. CONCLUSION: Modestly improved bibasilar consolidation. Electronically signed by: Seun Rodriguez MD 12/27/2017 4:44 AM EDT
[2017-12-27 05:05] LABS: Alanine Aminotransferase 13 U/L (12-78); Alkaline Phosphatase 85 U/L (45-117); Anion Gap 11 meq/L (5-15); Aspartate Aminotransferase 11 U/L (15-37); Blood Urea Nitrogen 29 mg/dL (7-18); Calcium 7.9 mg/dL (8.5-10.1); Carbon Dioxide 29.9 meq/L (21.0-32.0); Chloride 98 meq/L (98-107); Glomerular Filtration Rate 8 mL/min (>89); Glucose,Random 149 mg/dL (74-106); Magnesium 2.2 mg/dL (1.5-2.5); Phosphorus 3.9 mg/dL (2.5-4.9); Potassium 3.4 meq/L (3.5-5.1); Sodium 139 meq/L (136-145); Total Protein 7.8 g/dL (6.4-8.2); Troponin I 0.04 ng/mL (0.02-0.05)
[2017-12-27] MEDS: Piperacil/Tazo 2.25 GM Premix 50 ML IV.SIG SCH ×3 (05:38→21:51)
[2017-12-27] MEDS: Escitalopram 10 MG Tablet PO SCH (08:19)
[2017-12-27] MEDS: Pantoprazole Inj 40 MG Vial IV.PUSH SCH ×2 (08:19→21:51)
[2017-12-27] MEDS: Senna/Docusate Sodium 8.6/50 MG Tablet PO SCH ×2 (08:20→21:51)
[2017-12-27] MEDS: Ascorbic Acid 500 MG Tablet PO SCH ×2 (08:20→21:52)
[2017-12-27] MEDS: Polyethylene Glycol 3350 17 GM Packet PO SCH (08:20)
[2017-12-27] MEDS: risperiDONE 0.5 MG ODT PO SCH ×2 (08:20→21:52)
[2017-12-27] MEDS: Ferrous Sulfate 325 MG Tablet PO SCH ×3 (08:20→18:12)
[2017-12-27] MEDS: Insulin Detemir Inj 1,000 UNIT/10 ML Vial SQ SCH (08:21)
--- NOTE | 2017-12-27 09:49 | P.PNNP ---
Subjective Interval history: Seen in morning during hemodialysis tolerating well. HGB stable at 8.7. No shortness of breath, nausea or vomiting. Blood pressure has improved on low dose levophed. <Khalida Laura - Last Filed: 12/27/17 14:39> Physical Exam Vital signs: Vital Signs 12/26/17 11:17 12/26/17 11:54 12/26/17 12:00 Temperature 97.9 F Pulse Rate 73 70 73 Respiratory Rate 15 16 Blood Pressure 119/65 Pulse Oximetry 100 12/26/17 13:54 12/26/17 14:31 12/26/17 15:00 Temperature Pulse Rate 79 77 Respiratory Rate 20 Blood Pressure Pulse Oximetry 12/26/17 15:09 12/26/17 16:00 12/26/17 17:00 Temperature 97.9 F Pulse Rate 77 73 65 Respiratory Rate 16 16 Blood Pressure 119/65 Pulse Oximetry 100 12/26/17 19:00 12/26/17 19:26 12/26/17 19:46 Temperature Pulse Rate 80 68 Respiratory Rate 22 19 Blood Pressure Pulse Oximetry 12/26/17 19:47 12/26/17 20:00 12/26/17 21:00 Temperature 98 F Pulse Rate 74 71 Respiratory Rate 15 Blood Pressure 126/79 Pulse Oximetry 100 97 12/26/17 23:00 12/27/17 00:00 12/27/17 02:00 Temperature 98 F Pulse Rate 86 74 72 Respiratory Rate 15 Blood Pressure 126/79 Pulse Oximetry 97 12/27/17 03:47 12/27/17 04:00 12/27/17 06:00 Temperature 98 F Pulse Rate 74 77 Respiratory Rate 15 Blood Pressure 126/79 Pulse Oximetry 97 97 12/27/17 06:16 12/27/17 07:24 12/27/17 08:00 Temperature 97.9 F Pulse Rate 81 75 Respiratory Rate 16 18 Blood Pressure 92/73 L Pulse Oximetry 100 93 L 100 Intake & Output 12/26/17 12/27/17 12/27/17 18:59 06:59 18:59 Intake Total 730 / 730 150 / 150 Output Total 0 / 0 0 / 0 Balance 730 / 730 150 / 150 Intake: IV 150 / 150 Zosyn 2.25 GM Premix 50 ML @ 150 / 150 100 mls/hr IV.SIG Q8H [facility] Rx#: [id number] Oral 730 / 730 Anesthesia Amount 0 / 0 Output: Urine 0 / 0 0 / 0 Emesis 0 / 0 Hemodialysis Amount 0 / 0 Other: Date of Last Bowel Movement 12/26/17 12/26/17 12/26/17 # Bowel Movements 1 1 # Emeses 0 # Oral Regurgitations 0 Narrative: General: Alert and responsive. NAD. NECK: No JVD, trachea midline. Respiratory: breath sounds are diminished bilaterally. No accessory muscle use. Cardiovascular: normal rate, regular rhythm. Abdomen: soft, nontender, nondistended. no guarding. Extremities: left groin AVF with + thrill. distal pulses 2+. Neuro: In bed, alert, following some commands, not in distress. <Khalida Laura - Last Filed: 12/27/17 14:39> Vital signs: Vital Signs 12/27/17 18:00 12/27/17 18:15 12/27/17 18:45 Temperature Pulse Rate 85 80 76 Respiratory Rate 12 24 22 Blood Pressure 98/53 L 109/57 L 88/55 L Pulse Oximetry 99 70 L 67 L 12/27/17 19:00 12/27/17 19:15 12/27/17 19:30 Temperature Pulse Rate 79 82 80 Respiratory Rate 18 15 15 Blood Pressure 91/55 L 94/55 L 91/58 L Pulse Oximetry 97 100 100 12/27/17 19:45 12/27/17 19:55 12/27/17 20:00 Temperature 98.2 F Pulse Rate 80 80 84 Respiratory Rate 15 14 25 H Blood Pressure 95/51 L 98/57 L Pulse Oximetry 93 L 99 12/27/17 20:15 12/27/17 20:30 12/27/17 20:37 Temperature Pulse Rate 87 88 Respiratory Rate 22 19 Blood Pressure 111/66 95/58 L Pulse Oximetry 100 100 100 12/27/17 20:45 12/27/17 21:00 12/27/17 21:15 Temperature Pulse Rate 83 86 91 H Respiratory Rate 15 20 24 Blood Pressure 106/64 105/55 L 98/54 L Pulse Oximetry 100 100 100 12/27/17 21:30 12/27/17 21:46 12/27/17 22:00 Temperature Pulse Rate 83 90 82 Respiratory Rate 24 23 15 Blood Pressure 96/51 L 98/54 L 100/50 L Pulse Oximetry 99 100 100 12/27/17 22:16 12/27/17 22:30 12/27/17 22:45 Temperature Pulse Rate 90 84 85 Respiratory Rate 23 19 24 Blood Pressure 101/55 L 93/54 L 98/57 L Pulse Oximetry 99 100 90 L 12/27/17 23:00 12/27/17 23:15 12/27/17 23:30 Temperature Pulse Rate 80 79 81 Respiratory Rate 15 19 17 Blood Pressure 101/50 L 90/52 L 89/51 L Pulse Oximetry 85 L 97 97 12/27/17 23:45 12/28/17 00:00 12/28/17 00:15 Temperature 98.5 F Pulse Rate 80 88 79 Respiratory Rate 9 L 16 17 Blood Pressure 88/52 L 86/59 L 124/75 Pulse Oximetry 100 97 77 L 12/28/17 00:30 12/28/17 00:45 12/28/17 01:00 Temperature Pulse Rate 89 86 95 H Respiratory Rate 19 15 32 H Blood Pressure 102/50 L 102/52 L Pulse Oximetry 90 L 100 97 12/28/17 01:04 12/28/17 01:16 12/28/17 01:30 Temperature Pulse Rate 96 H 89 83 Respiratory Rate 17 15 22 Blood Pressure 94/57 L 97/54 L 116/62 Pulse Oximetry 100 99 100 12/28/17 01:45 12/28/17 02:00 12/28/17 02:15 Temperature Pulse Rate 82 85 84 Respiratory Rate 17 22 12 Blood Pressure 103/55 L 101/52 L 85/48 L Pulse Oximetry 98 99 96 12/28/17 02:18 12/28/17 02:30 12/28/17 02:45 Temperature Pulse Rate 86 74 78 Respiratory Rate 11 L 12 22 Blood Pressure 93/57 L 92/54 L 94/59 L Pulse Oximetry 93 L 96 94 L 12/28/17 03:00 12/28/17 03:15 12/28/17 03:30 Temperature Pulse Rate 85 74 85 Respiratory Rate 15 17 16 Blood Pressure 90/55 L 85/50 L 69/46 L Pulse Oximetry 96 99 88 L 12/28/17 03:33 12/28/17 03:45 12/28/17 04:00 Temperature 98.5 F Pulse Rate 90 84 84 Respiratory Rate 23 16 19 Blood Pressure 96/63 L 101/55 L 93/61 L Pulse Oximetry 100 97 97 12/28/17 04:15 12/28/17 04:30 12/28/17 04:45 Temperature Pulse Rate 91 H 84 84 Respiratory Rate 19 19 26 H Blood Pressure 90/50 L 96/55 L 88/53 L Pulse Oximetry 99 100 95 12/28/17 06:00 12/28/17 07:00 12/28/17 08:00 Temperature 97.8 F Pulse Rate 88 82 Respiratory Rate 19 Blood Pressure 101/53 L Pulse Oximetry 96 100 12/28/17 08:31 12/28/17 10:00 12/28/17 12:00 Temperature 97.9 F Pulse Rate 79 79 80 Respiratory Rate 18 24 Blood Pressure 100/59 L Pulse Oximetry 99 12/28/17 14:00 12/28/17 16:00 12/28/17 16:30 Temperature 97.7 F Pulse Rate 80 71 76 Respiratory Rate 20 18 Blood Pressure 93/50 L Pulse Oximetry 97 Intake & Output 12/27/17 12/28/17 12/28/17 18:59 06:59 18:59 Intake Total 700 / 700 300 / 300 50 / 50 Output Total 1999 Balance -1300 / -1300 300 / 300 50 / 50 Intake: IV 50 / 50 100 / 100 50 / 50 Zosyn 2.25 GM Premix 50 ML @ 50 / 50 100 / 100 50 / 50 100 mls/hr IV.SIG Q8H [facility] Rx#: [id number] Oral 650 / 650 200 / 200 Output: Hemodialysis Amount 1999 Other: Date of Last Bowel Movement 12/27/17 12/28/17 12/28/17 # Bowel Movements 1 3 <Kaur Bell Q - Last Filed: 12/28/17 17:50> Assessment and Plan - Assessment (1) End stage renal disease on dialysis Code(s): N18.6 - End stage renal disease; Z99.2 - Dependence on renal dialysis Status: Acute Plan: End stage renal disease, HD on TTS. Seen during hemodialysis will remove fluid as tolerated but with hypotension difficult to remove fluid. Hypokalemia, 4 K bath with hemodialysis. Continue cinacalcet 30 mg daily for secondary hyperparathyroidism Continue renvela. (2) Aspiration pneumonia of both lungs Code(s): J69.0 - Pneumonitis due to inhalation of food and vomit Qualifiers: Aspiration pneumonia type: unspecified Lung location: lower lobe of lung Qualified Code(s): J69.0 - Pneumonitis due to inhalation of food and vomit Plan: On Zosyn and Vancomycin (3) Diabetes Code(s): E11.9 - Type 2 diabetes mellitus without complications Status: Chronic Qualifiers: Diabetes mellitus type: type 2 Chronic kidney disease stage: on chronic dialysis Plan: Maintain blood sugars between 140 mg/dl to 180 mg/dl (4) Syncope Code(s): R55 - Syncope and collapse Status: Acute Qualifiers: Syncope type: unspecified Qualified Code(s): R55 - Syncope and collapse (5) Nausea and vomiting Code(s): R11.2 - Nausea with vomiting, unspecified Status: Acute Qualifiers: Vomiting type: unspecified Vomiting Intractability: non-intractable Qualified Code(s): R11.2 - Nausea with vomiting, unspecified Plan: GI consulted, EGD done, biopsy pending Nausea and vomiting has improved. (6) Anemia Code(s): D64.9 - Anemia, unspecified Status: Acute Plan: HGB stable at 8.8, Epogen with dialysis <Khalida Laura - Last Filed: 12/27/17 14:39> - Assessment (1) End stage renal disease on dialysis Code(s): N18.6 - End stage renal disease; Z99.2 - Dependence on renal dialysis Status: Acute Plan: Patient seen and examined, agree with above. BP remain on lower side. HD done, remain on pressor. Follow Hgb. EGD result noted. Tolerating diet. (2) Aspiration pneumonia of both lungs Code(s): J69.0 - Pneumonitis due to inhalation of food and vomit Qualifiers: Aspiration pneumonia type: unspecified Lung location: lower lobe of lung Qualified Code(s): J69.0 - Pneumonitis due to inhalation of food and vomit (3) Diabetes Code(s): E11.9 - Type 2 diabetes mellitus without complications Status: Chronic Qualifiers: Diabetes mellitus type: type 2 Chronic kidney disease stage: on chronic dialysis (4) Syncope Code(s): R55 - Syncope and collapse Status: Acute Qualifiers: Syncope type: unspecified Qualified Code(s): R55 - Syncope and collapse (5) Nausea and vomiting Code(s): R11.2 - Nausea with vomiting, unspecified Status: Acute Qualifiers: Vomiting type: unspecified Vomiting Intractability: non-intractable Qualified Code(s): R11.2 - Nausea with vomiting, unspecified (6) Anemia Code(s): D64.9 - Anemia, unspecified Status: Acute (7) Hypotension Code(s): I95.9 - Hypotension, unspecified Status: Acute <Lizeth Bell - Last Filed: 12/28/17 17:50>
--- NOTE | 2017-12-27 12:12 | P.PNGI ---
Subjective Interval history: Patient lying on his back eyes closed appears to be comfortable currently receiving hemodialysis Notes mild abdominal discomfort right lower and left lower quadrants to light palpation, no obvious nausea or vomiting Bilirubin LFTs are normal <Rosetta Mathew - Last Filed: 12/27/17 12:12> Physical Exam Vital signs: Vital Signs 12/26/17 13:54 12/26/17 14:31 12/26/17 15:00 Temperature Pulse Rate 79 77 Respiratory Rate 20 Blood Pressure Pulse Oximetry 12/26/17 15:09 12/26/17 16:00 12/26/17 17:00 Temperature 97.9 F Pulse Rate 77 73 65 Respiratory Rate 16 16 Blood Pressure 119/65 Pulse Oximetry 100 12/26/17 19:00 12/26/17 19:26 12/26/17 19:46 Temperature Pulse Rate 80 68 Respiratory Rate 22 19 Blood Pressure Pulse Oximetry 12/26/17 19:47 12/26/17 20:00 12/26/17 21:00 Temperature 98 F Pulse Rate 74 71 Respiratory Rate 15 Blood Pressure 126/79 Pulse Oximetry 100 97 12/26/17 23:00 12/27/17 00:00 12/27/17 02:00 Temperature 98 F Pulse Rate 86 74 72 Respiratory Rate 15 Blood Pressure 126/79 Pulse Oximetry 97 12/27/17 03:47 12/27/17 04:00 12/27/17 06:00 Temperature 98 F Pulse Rate 74 77 Respiratory Rate 15 Blood Pressure 126/79 Pulse Oximetry 97 97 12/27/17 06:16 12/27/17 07:24 12/27/17 08:00 Temperature 97.9 F Pulse Rate 81 75 Respiratory Rate 16 18 Blood Pressure 92/73 L Pulse Oximetry 100 93 L 100 12/27/17 10:00 12/27/17 11:22 Temperature Pulse Rate 84 87 Respiratory Rate 16 Blood Pressure Pulse Oximetry Intake & Output 12/26/17 12/27/17 12/27/17 18:59 06:59 18:59 Intake Total 730 / 730 150 / 150 Output Total 0 / 0 0 / 0 Balance 730 / 730 150 / 150 Intake: IV 150 / 150 Zosyn 2.25 GM Premix 50 ML @ 150 / 150 100 mls/hr IV.SIG Q8H [facility] Rx#: [id number] Oral 730 / 730 Anesthesia Amount 0 / 0 Output: Urine 0 / 0 0 / 0 Emesis 0 / 0 Hemodialysis Amount 0 / 0 Other: Date of Last Bowel Movement 12/26/17 12/26/17 12/26/17 # Bowel Movements 1 1 # Emeses 0 # Oral Regurgitations 0 - Constitutional mild distress (Intensive care unit), somnolent - Routine HEENT Exam ENT: Present: mucous membranes moist - Routine Cardiovascular Exam Present: S1, S2 - Routine Abdominal Exam Present: soft (No obvious distention, round, some lower quadrant discomfort to light palpation but no obvious pain) <Rosetta Mathew - Last Filed: 12/27/17 12:12> Vital signs: Vital Signs 12/26/17 17:00 12/26/17 19:00 12/26/17 19:26 Temperature Pulse Rate 65 80 Respiratory Rate 22 Blood Pressure Pulse Oximetry 12/26/17 19:46 12/26/17 19:47 12/26/17 20:00 Temperature 98 F Pulse Rate 68 74 Respiratory Rate 19 15 Blood Pressure 126/79 Pulse Oximetry 100 97 12/26/17 21:00 12/26/17 23:00 12/27/17 00:00 Temperature 98 F Pulse Rate 71 86 74 Respiratory Rate 15 Blood Pressure 126/79 Pulse Oximetry 97 12/27/17 02:00 12/27/17 03:47 12/27/17 04:00 Temperature 98 F Pulse Rate 72 74 Respiratory Rate 15 Blood Pressure 126/79 Pulse Oximetry 97 97 12/27/17 06:00 12/27/17 06:16 12/27/17 07:24 Temperature Pulse Rate 77 81 Respiratory Rate 16 Blood Pressure Pulse Oximetry 100 93 L 12/27/17 08:00 12/27/17 10:00 12/27/17 11:22 Temperature 97.9 F Pulse Rate 75 84 87 Respiratory Rate 18 16 Blood Pressure 92/73 L Pulse Oximetry 100 12/27/17 12:00 12/27/17 14:00 12/27/17 15:49 Temperature 98.3 F Pulse Rate 89 84 79 Respiratory Rate 22 16 Blood Pressure 114/74 Pulse Oximetry Intake & Output 12/26/17 12/27/17 12/27/17 18:59 06:59 18:59 Intake Total 730 / 730 150 / 150 Output Total 0 / 0 0 / 0 Balance 730 / 730 150 / 150 Intake: IV 150 / 150 Zosyn 2.25 GM Premix 50 ML @ 150 / 150 100 mls/hr IV.SIG Q8H [facility] Rx#: [id number] Oral 730 / 730 Anesthesia Amount 0 / 0 Output: Urine 0 / 0 0 / 0 Emesis 0 / 0 Hemodialysis Amount 0 / 0 Other: Date of Last Bowel Movement 12/26/17 12/26/17 12/26/17 # Bowel Movements 1 1 # Emeses 0 # Oral Regurgitations 0 <John Paul Amezquita - Last Filed: 12/27/17 16:51> Results - Labs CBC & Chem 7: 12/27/17 03:45 12/27/17 03:45 Laboratory Results - last 24 hr 12/26/17 12/26/17 12/27/17 17:50 19:45 00:45 WBC RBC Hgb Hct MCV MCH MCHC RDW Plt Count MPV Neut % (Auto) Lymph % (Auto) Dickinson % (Auto) Eos % (Auto) Baso % (Auto) Neut # (Auto) Lymph # (Auto) Dickinson # (Auto) Eos # (Auto) Baso # (Auto) WBC Differential Differential Comment Sodium Potassium Chloride Carbon Dioxide Anion Gap BUN Creatinine Estimated GFR POC Glucose 134 H 165 H Random Glucose Lactic Acid 1.7 Calcium Phosphorus Magnesium Total Bilirubin AST ALT Alkaline Phosphatase Troponin I Total Protein Albumin 12/27/17 12/27/17 12/27/17 03:45 03:45 03:49 WBC 5.9 RBC 3.14 L Hgb 8.7 L Hct 27.9 L MCV 88.9 MCH 27.8 MCHC 31.2 L RDW 17.3 H Plt Count 184 MPV 9.2 Neut % (Auto) 69.4 Lymph % (Auto) 19.9 Dickinson % (Auto) 7.7 Eos % (Auto) 2.6 Baso % (Auto) 0.4 Neut # (Auto) 4.1 Lymph # (Auto) 1.2 Dickinson # (Auto) 0.5 Eos # (Auto) 0.2 Baso # (Auto) 0.0 WBC Differential . Differential Comment Auto diff final Sodium 139 Potassium 3.4 L Chloride 98 Carbon Dioxide 29.9 Anion Gap 11 BUN 29 H Creatinine 8.35 H Estimated GFR 8 L POC Glucose 175 H Random Glucose 149 H Lactic Acid Calcium 7.9 L Phosphorus 3.9 Magnesium 2.2 Total Bilirubin 0.5 AST 11 L ALT 13 Alkaline Phosphatase 85 Troponin I 0.04 Total Protein 7.8 Albumin 3.0 L 12/27/17 12/27/17 08:25 11:06 WBC RBC Hgb Hct MCV MCH MCHC RDW Plt Count MPV Neut % (Auto) Lymph % (Auto) Dickinson % (Auto) Eos % (Auto) Baso % (Auto) Neut # (Auto) Lymph # (Auto) Dickinson # (Auto) Eos # (Auto) Baso # (Auto) WBC Differential Differential Comment Sodium Potassium Chloride Carbon Dioxide Anion Gap BUN Creatinine Estimated GFR POC Glucose 216 H 149 H Random Glucose Lactic Acid Calcium Phosphorus Magnesium Total Bilirubin AST ALT Alkaline Phosphatase Troponin I Total Protein Albumin Microbiology 12/24/17 07:56 Blood - Peripheral Aerobic Blood Culture - Preliminary No growth in 3 days 12/24/17 07:56 Blood - Peripheral Anaerobic Blood Culture - Preliminary No growth in 3 days 12/23/17 13:15 Blood - Peripheral Aerobic Blood Culture - Preliminary No growth in 4 days 12/23/17 13:15 Blood - Peripheral Anaerobic Blood Culture - Preliminary No growth in 4 days - Imaging Impressions Chest X-Ray 12/27/17 06:00 CONCLUSION: Modestly improved bibasilar consolidation. <Rosetta Mathew - Last Filed: 12/27/17 12:12> - Labs CBC & Chem 7: 12/27/17 13:58 12/27/17 03:45 Laboratory Results - last 24 hr 12/26/17 12/26/17 12/27/17 17:50 19:45 00:45 WBC RBC Hgb Hct MCV MCH MCHC RDW Plt Count MPV Neut % (Auto) Lymph % (Auto) Dickinson % (Auto) Eos % (Auto) Baso % (Auto) Neut # (Auto) Lymph # (Auto) Dickinson # (Auto) Eos # (Auto) Baso # (Auto) WBC Differential Differential Comment Sodium Potassium Chloride Carbon Dioxide Anion Gap BUN Creatinine Estimated GFR POC Glucose 134 H 165 H Random Glucose Lactic Acid 1.7 Calcium Phosphorus Magnesium Total Bilirubin AST ALT Alkaline Phosphatase Troponin I Total Protein Albumin 12/27/17 12/27/17 12/27/17 03:45 03:45 03:49 WBC 5.9 RBC 3.14 L Hgb 8.7 L Hct 27.9 L MCV 88.9 MCH 27.8 MCHC 31.2 L RDW 17.3 H Plt Count 184 MPV 9.2 Neut % (Auto) 69.4 Lymph % (Auto) 19.9 Dickinson % (Auto) 7.7 Eos % (Auto) 2.6 Baso % (Auto) 0.4 Neut # (Auto) 4.1 Lymph # (Auto) 1.2 Dickinson # (Auto) 0.5 Eos # (Auto) 0.2 Baso # (Auto) 0.0 WBC Differential . Differential Comment Auto diff final Sodium 139 Potassium 3.4 L Chloride 98 Carbon Dioxide 29.9 Anion Gap 11 BUN 29 H Creatinine 8.35 H Estimated GFR 8 L POC Glucose 175 H Random Glucose 149 H Lactic Acid Calcium 7.9 L Phosphorus 3.9 Magnesium 2.2 Total Bilirubin 0.5 AST 11 L ALT 13 Alkaline Phosphatase 85 Troponin I 0.04 Total Protein 7.8 Albumin 3.0 L 12/27/17 12/27/17 12/27/17 08:25 11:06 13:58 WBC RBC Hgb 8.8 L Hct 27.3 L MCV MCH MCHC RDW Plt Count MPV Neut % (Auto) Lymph % (Auto) Dickinson % (Auto) Eos % (Auto) Baso % (Auto) Neut # (Auto) Lymph # (Auto) Dickinson # (Auto) Eos # (Auto) Baso # (Auto) WBC Differential Differential Comment Sodium Potassium Chloride Carbon Dioxide Anion Gap BUN Creatinine Estimated GFR POC Glucose 216 H 149 H Random Glucose Lactic Acid Calcium Phosphorus Magnesium Total Bilirubin AST ALT Alkaline Phosphatase Troponin I Total Protein Albumin Microbiology 12/24/17 07:56 Blood - Peripheral Aerobic Blood Culture - Preliminary No growth in 3 days 12/24/17 07:56 Blood - Peripheral Anaerobic Blood Culture - Preliminary No growth in 3 days 12/23/17 13:15 Blood - Peripheral Aerobic Blood Culture - Preliminary No growth in 4 days 12/23/17 13:15 Blood - Peripheral Anaerobic Blood Culture - Preliminary No growth in 4 days - Imaging Impressions Chest X-Ray 12/27/17 06:00 CONCLUSION: Modestly improved bibasilar consolidation. 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 This patient presented [facility] from a local rehab center with complaints of burning chest wall pain while undergoing dialysis. Patient states that this discomfort is described as burning and intermittent, associated with nausea. He states onset of burning epigastric pain, chest wall pain 1 week ago accompanied by dark brown emesis. He endorses that he experiences this discomfort at least twice daily. States pain is increased after meals and accompanied by vomiting after meals. Patient has had multiple episodes of projectile vomiting in the emergency room. CT of the abdomen and pelvis done on admission revealed the followin. Diffuse hepatic fatty infiltration. 2. 5 cm cystic structure possibly within the wall of the distal esophagus. Initially I thought this represented a paraesophageal hernia difficult to identify a communication to the lumen of the gastric cardia. 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 I do not believe that there is compromise of the esophageal lumen, however. Endoscopy or upper GI could be performed for further characterization. Our service has been consulted to evaluate patient's projectile vomiting of dark brown emesis, abnormal esophagus and burning chest wall/epigastric pain. 09/19/2017 EGD revealed the following findings: 1. Grade C esophagitis biopsy from the distal esophagus 2. Mild duodenitis biopsy from the antrum to rule out H. pylori Stomach normal 3. Retroflexed views revealed no abnormalities Home medication includes omeprazole 20 mg p.o. daily. Patient denied any known use of NSAIDs or aspirin. Hemoglobin 12.3 hematocrit 37.8 platelet count 252 INR 1.1 total bilirubin 0.5 AST 31 ALT 17 alk phos 117 albumin 3.2 12/25/2017 patient is status post EGD performed on 12/24/2017 findings include LA class D esophagitis and hiatal hernia no obvious bleeding EGD to be repeated as needed as needed Hemoglobin currently 8.7 decreased WBC count 10.2 patient is asymptomatic from any nausea vomiting abdominal pain or any obvious bleeding. Discussed with patient the need for colonoscopy after dialysis Tuesday. Consents and orders placed for prep Tuesday p.m. patient should be more stable after dialysis Tuesday p.m. 12/26/2017 patient initially had possible upper GI bleed, vomiting dark brown emesis which has subsided. Status post EGD as listed above and currently being managed on PPI. Hemoglobin being monitored 8.6 which appears to be stable, bilirubin and LFTs are normal. Plan is for colonoscopy Tuesday after dialysis treatment to further evaluate for any obvious GI bleeding. Patient swallows food with applesauce consistency and no liquids. Discussed possible NG tube for prep versus soapsud enemas. 12/27/2017 patient is currently receiving hemodialysis. Family wanted no dialysis and colonoscopy on the same day and would not sign permit. Hemoglobin 8.7 and appears fairly stable. Patient is end-stage renal disease status post EGD on 09/19/2017 and again in 12/25/2007. Patient's anemia could be related to his end-stage renal disease. No obvious bleeding noted. Noted patient is having usually 1 bowel movement a day Consider colonoscopy if hemoglobin continues to decrease no sign of obvious bleeding Plan Diet renal as tolerated EGD biopsies are pending Avoid NSAIDs, antireflux precautions Monitor lab PPI Zofran as needed Bowel regimen , monitor for any rectal bleeding Monitor labs Patient was seen per myself and Dr. Amezquita, note was written on his behalf <Rosetta Mathew - Last Filed: 12/27/17 12:12> (1) Nausea and vomiting Status: Acute Code(s): R11.2 - Nausea with vomiting, unspecified - Plan Patient was seen and examined, agree with above note, patient brother did not want him to have the procedure at this point as far as colonoscopy, continue current care with packed RBC as needed and bowel regimen. We will follow-up as needed if things change we can perform colonoscopy at a later date. Please call us for that <John Paul Amezquita - Last Filed: 12/27/17 16:51> <Rosetta Mathew M - Last Filed: 12/27/17 12:12> (1) Nausea and vomiting Qualifiers: Vomiting type: unspecified Vomiting Intractability: non-intractable Qualified Code(s): R11.2 - Nausea with vomiting, unspecified <John Paul Amezquita - Last Filed: 12/27/17 16:51> (1) Nausea and vomiting Qualifiers: Vomiting type: unspecified Vomiting Intractability: non-intractable Qualified Code(s): R11.2 - Nausea with vomiting, unspecified
--- NOTE | 2017-12-27 12:56 | P.PNCC ---
Subjective Subjective Remarks/Hospital Course: This is a 62yM with history of ESRD on HD who presents with multiple days of nausea and vomiting. initially admitted to Obs status where he developed hypotension and acute altered mental status. rapid response called and patient emergently transferred to ICU. patient more awake on arrival to ICU: now answering questions and following commands. BP initially 70s/30s, which didn't respond to 1L crystalloid bolus downstairs. additional 500cc 5% albumin given. BP now 110s/60s. Notable hypochloremia, hyponatremia on labs. Severe metabolic alkalosis on ABG with compensatory hypoventilation. HD this morning with 4L volume removed. Full ROS unobtainable from the patient due to his acute mental status change- limited ROS negative for chest pain, SOB, diarrhea. +nausea/ vomiting. + toe pain: patient states his toes are tingling. no change in motor or sensation in his lower extremities. pulses are 2+. 12/24: Afebrile. During hemodialysis unable to take any fluid off. Remains hypotensive. Currently bolusing. We will place central line and start low- dose norepinephrine. Became hypotensive and unresponsive 0.2 of hydromorphone. 12/25: Currently alternate CODE STATUS intubation only. Remains on norepinephrine drip at 10 mcg/min. Started on antibiotics overnight. Cultures no growth today. Cortisol level 15 which is appropriate. Remains on Midodrine and will add fludrocortisone today. Echocardiogram was ordered for today. Subjective 12/26: Plan for colonoscopy in a.m. Remains on norepinephrine drip at 8 mg/ min. Likely currently pending. CVP is low. Possibly still dry?. Echocardiogram ordered along with holding. Does not look or appear septic stigmata. 12/27: Resting in bed, not in any acute distress. Was being dialyzed at the time of my evaluation this morning. On Levophed for pressor support at 4 mics per minute this morning. Objective Vital Signs / I&O: Vital Signs 12/26/17 13:54 12/26/17 14:31 12/26/17 15:00 Temperature Pulse Rate 79 77 Respiratory Rate 20 Blood Pressure Pulse Oximetry 12/26/17 15:09 12/26/17 16:00 12/26/17 17:00 Temperature 97.9 F Pulse Rate 77 73 65 Respiratory Rate 16 16 Blood Pressure 119/65 Pulse Oximetry 100 12/26/17 19:00 12/26/17 19:26 12/26/17 19:46 Temperature Pulse Rate 80 68 Respiratory Rate 22 19 Blood Pressure Pulse Oximetry 12/26/17 19:47 12/26/17 20:00 12/26/17 21:00 Temperature 98 F Pulse Rate 74 71 Respiratory Rate 15 Blood Pressure 126/79 Pulse Oximetry 100 97 12/26/17 23:00 12/27/17 00:00 12/27/17 02:00 Temperature 98 F Pulse Rate 86 74 72 Respiratory Rate 15 Blood Pressure 126/79 Pulse Oximetry 97 12/27/17 03:47 12/27/17 04:00 12/27/17 06:00 Temperature 98 F Pulse Rate 74 77 Respiratory Rate 15 Blood Pressure 126/79 Pulse Oximetry 97 97 12/27/17 06:16 12/27/17 07:24 12/27/17 08:00 Temperature 97.9 F Pulse Rate 81 75 Respiratory Rate 16 18 Blood Pressure 92/73 L Pulse Oximetry 100 93 L 100 12/27/17 10:00 12/27/17 11:22 12/27/17 12:00 Temperature 98.3 F Pulse Rate 84 87 89 Respiratory Rate 16 22 Blood Pressure 114/74 Pulse Oximetry Intake & Output 12/26/17 12/27/17 12/27/17 18:59 06:59 18:59 Intake Total 730 / 730 150 / 150 Output Total 0 / 0 0 / 0 Balance 730 / 730 150 / 150 Intake: IV 150 / 150 Zosyn 2.25 GM Premix 50 ML @ 150 / 150 100 mls/hr IV.SIG Q8H [facility] Rx#: [id number] Oral 730 / 730 Anesthesia Amount 0 / 0 Output: Urine 0 / 0 0 / 0 Emesis 0 / 0 Hemodialysis Amount 0 / 0 Other: Date of Last Bowel Movement 12/26/17 12/26/17 12/26/17 # Bowel Movements 1 1 # Emeses 0 # Oral Regurgitations 0 Result Diagrams: 12/27/17 03:45 12/27/17 03:45 Objective Remarks: gen: This is a 62-year-old AA frail male who appears much older than stated age , lying in bed. heent: nc. at. perrl. mucous membranes moderately moist and pink. Oropharynx without erythema. neck: no jvd. trachea midline. Right IJ CVL is clean dry and intact chest: equal chest rise. Nasal cannula. No muscle use cv: normal rate, regular rhythm. sinus. abd: soft, nontender, nondistended. no guarding. extr: left groin AVF with + thrill. distal pulses 2+. neuro: arouses and follows commands. NICHOLE 5/5 in all extremities. sensation grossly intact. no focal deficits. Assessment and Plan - Assessment and Plan Plan: Neuro/Psych: Acute metabolic encephalopathy Bipolar disorder Paranoid schizophrenia Depression Left eye blindness Insomnia Chronic narcotic use Monitor neuro status, awake and alert On Risperidone 0.5 mg every 12 hours, trazodone 150 mg at night for anxiety/ depression On escitalopram oxalate 10 mg at night for depression, lamotrigine 200 mg at night for psychosis On gabapentin 200 mg daily for peripheral neuropathy Discontinue hydromorphone due to altered mental status. Received only 0.1 mg and became unresponsive Was receiving tramadol as an outpatient.. Resume at 50 mg every 6 hours as needed pain CV: Severe sepsis Lactic acidosis- cleared History of chronic diastolic heart failure Hypertension by history Dyslipidemia Coronary disease status post stent placement Peripheral vascular disease Currently hypotensive Monitor HR and BP keep MAP>65mmHg Norepinephrine drip to maintain mean arterial pressure greater than equal 65. Currently on 10 mg/min Continue midodrine 10 mg by mouth 3 times a day and add fludrocortisone 0.1 mg daily Echo showed EF 60-65% 11/12 so doubt cardiac effect Continue pravastatin 20 mg daily for hyperlipidemia CVP ordered Resp: Acute hypoxemic respiratory insufficiency Currently on 3 L nasal cannula Incentive spirometry while awake Albuterol/ipratropium aerosols every 4 hours with albuterol nebs every 2 hours. Aggressive pulmonary toilet GI: Gastroesophageal reflux disease History of esophagitis History of colonic polyps Hiatal hernia Currently on clear liquid diet per GI Currently on pantoprazole 40 mg twice daily s/p EGD LA class D esophagitis and hiatal hernia. Docusate sodium/Senokot for bowel regimen For colonoscopy in a.m. 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 Thrill. Continue Sevelamer 2.4 g 3 times a day for hyperphosphatemia Continue cinacalcet 30 mg daily for secondary hyperparathyroidism Heme: Anemia, normocytic Monitor CBC daily. Continue iron sulfate 325 mg 3 times daily with vitamin C ID: Monitor for signs and symptomatology infection Currently on vancomycin and piperacillin/tazobactam Blood cultures 12/23 and no growth to date FEN: Acute hypokalemia Will give 10 mEq potassium chloride p.o. x1 now. Recheck in a.m. 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 Right IJ CVL day #3 placed 12/24 Prophylaxis - GI - famotidine - DVT - SCD/ heparin SQ .Family request hospice consultation. Wound care consult
[2017-12-27] MEDS: Norepinephrine Inj 16 MG in Sodium Chlor 0.9% Inj 234 ML IV.CONT PRN (13:03)
[2017-12-27 14:23] LABS: Hematocrit 27.3 % (39.0-51.0); Hemoglobin 8.8 gm/dL (13.0-17.0)
[2017-12-27] MEDS: lamoTRIgine 100 MG Tablet PO SCH (21:51)
[2017-12-28] MEDS: Insulin Detemir Inj 1,000 UNIT/10 ML Vial SQ SCH ×3 (00:29→20:34)
[2017-12-28] MEDS: Insulin NovoLIN Regular Correctional Sugar Inj SQ SCH ×7 (00:30→23:42)
[2017-12-28] MEDS: Piperacil/Tazo 2.25 GM Premix 50 ML IV.SIG SCH ×3 (03:52→20:33)
[2017-12-28 06:23] LABS: Hematocrit 25.8 % (39.0-51.0); Hemoglobin 8.4 gm/dL (13.0-17.0); Mean Corpuscular HGB Conc 32.4 % (32.0-36.0); Mean Corpuscular Hemoglobin 28.2 pg (27.0-34.0); Mean Platelet Volume 9.3 fL (7.0-11.0); Platelet Count 167 th/mm3 (150-450); Red Blood Count 2.96 mil/mm3 (4.50-5.90); Red Cell Distribution Width 17.3 % (11.6-17.2); White Blood Count 4.8 th/mm3 (4.0-11.0)
[2017-12-28 06:56] LABS: Calcium 8.3 mg/dL (8.5-10.1); Magnesium 2.3 mg/dL (1.5-2.5); Phosphorus 1.5 mg/dL (2.5-4.9); Potassium 3.5 meq/L (3.5-5.1); Vancomycin,Random 11.1 Comment
[2017-12-28] MEDS: Ferrous Sulfate 325 MG Tablet PO SCH ×2 (09:10→13:05)
[2017-12-28] MEDS: Polyethylene Glycol 3350 17 GM Packet PO SCH (09:11)
[2017-12-28] MEDS: Escitalopram 10 MG Tablet PO SCH (09:11)
[2017-12-28] MEDS: Senna/Docusate Sodium 8.6/50 MG Tablet PO SCH ×2 (09:11→20:33)
[2017-12-28] MEDS: Ascorbic Acid 500 MG Tablet PO SCH ×2 (09:12→20:33)
[2017-12-28] MEDS: risperiDONE 0.5 MG ODT PO SCH ×2 (09:12→20:33)
[2017-12-28] MEDS: Pantoprazole Inj 40 MG Vial IV.PUSH SCH ×2 (09:12→20:34)
--- NOTE | 2017-12-28 10:32 | P.PNNP ---
Subjective Interval history: Seen in AM. Resting comfortably this morning. No acute events overnight. Continues on low dose levophed for blood pressure support. <Khalida Laura - Last Filed: 12/28/17 16:05> Physical Exam Vital signs: Vital Signs 12/27/17 11:22 12/27/17 12:00 12/27/17 14:00 Temperature 98.3 F Pulse Rate 87 89 84 Respiratory Rate 16 22 Blood Pressure 114/74 Pulse Oximetry 12/27/17 15:49 12/27/17 16:00 12/27/17 17:00 Temperature 98.8 F Pulse Rate 79 77 78 Respiratory Rate 16 24 16 Blood Pressure 92/52 L 80/44 L Pulse Oximetry 64 L 12/27/17 17:06 12/27/17 17:15 12/27/17 17:30 Temperature Pulse Rate 83 82 88 Respiratory Rate 15 18 19 Blood Pressure 109/58 L 109/60 107/59 L Pulse Oximetry 100 100 100 12/27/17 17:45 12/27/17 18:00 12/27/17 18:15 Temperature Pulse Rate 85 85 80 Respiratory Rate 21 12 24 Blood Pressure 106/56 L 98/53 L 109/57 L Pulse Oximetry 95 99 70 L 12/27/17 18:45 12/27/17 19:00 12/27/17 19:15 Temperature Pulse Rate 76 79 82 Respiratory Rate 22 18 15 Blood Pressure 88/55 L 91/55 L 94/55 L Pulse Oximetry 67 L 97 100 12/27/17 19:30 12/27/17 19:45 12/27/17 19:55 Temperature Pulse Rate 80 80 80 Respiratory Rate 15 15 14 Blood Pressure 91/58 L 95/51 L Pulse Oximetry 100 93 L 12/27/17 20:00 12/27/17 20:15 12/27/17 20:30 Temperature 98.2 F Pulse Rate 84 87 88 Respiratory Rate 25 H 22 19 Blood Pressure 98/57 L 111/66 95/58 L Pulse Oximetry 99 100 100 12/27/17 20:37 12/27/17 20:45 12/27/17 21:00 Temperature Pulse Rate 83 86 Respiratory Rate 15 20 Blood Pressure 106/64 105/55 L Pulse Oximetry 100 100 100 12/27/17 21:15 12/27/17 21:30 12/27/17 21:46 Temperature Pulse Rate 91 H 83 90 Respiratory Rate 24 24 23 Blood Pressure 98/54 L 96/51 L 98/54 L Pulse Oximetry 100 99 100 12/27/17 22:00 12/27/17 22:16 12/27/17 22:30 Temperature Pulse Rate 82 90 84 Respiratory Rate 15 23 19 Blood Pressure 100/50 L 101/55 L 93/54 L Pulse Oximetry 100 99 100 12/27/17 22:45 12/27/17 23:00 12/27/17 23:15 Temperature Pulse Rate 85 80 79 Respiratory Rate 24 15 19 Blood Pressure 98/57 L 101/50 L 90/52 L Pulse Oximetry 90 L 85 L 97 12/27/17 23:30 12/27/17 23:45 12/28/17 00:00 Temperature 98.5 F Pulse Rate 81 80 88 Respiratory Rate 17 9 L 16 Blood Pressure 89/51 L 88/52 L 86/59 L Pulse Oximetry 97 100 97 12/28/17 00:15 12/28/17 00:30 12/28/17 00:45 Temperature Pulse Rate 79 89 86 Respiratory Rate 17 19 15 Blood Pressure 124/75 102/50 L 102/52 L Pulse Oximetry 77 L 90 L 100 12/28/17 01:00 12/28/17 01:04 12/28/17 01:16 Temperature Pulse Rate 95 H 96 H 89 Respiratory Rate 32 H 17 15 Blood Pressure 94/57 L 97/54 L Pulse Oximetry 97 100 99 12/28/17 01:30 12/28/17 01:45 12/28/17 02:00 Temperature Pulse Rate 83 82 85 Respiratory Rate 22 17 22 Blood Pressure 116/62 103/55 L 101/52 L Pulse Oximetry 100 98 99 12/28/17 02:15 12/28/17 02:18 12/28/17 02:30 Temperature Pulse Rate 84 86 74 Respiratory Rate 12 11 L 12 Blood Pressure 85/48 L 93/57 L 92/54 L Pulse Oximetry 96 93 L 96 12/28/17 02:45 12/28/17 03:00 12/28/17 03:15 Temperature Pulse Rate 78 85 74 Respiratory Rate 22 15 17 Blood Pressure 94/59 L 90/55 L 85/50 L Pulse Oximetry 94 L 96 99 12/28/17 03:30 12/28/17 03:33 12/28/17 03:45 Temperature Pulse Rate 85 90 84 Respiratory Rate 16 23 16 Blood Pressure 69/46 L 96/63 L 101/55 L Pulse Oximetry 88 L 100 97 12/28/17 04:00 12/28/17 04:15 12/28/17 04:30 Temperature 98.5 F Pulse Rate 84 91 H 84 Respiratory Rate 19 19 19 Blood Pressure 93/61 L 90/50 L 96/55 L Pulse Oximetry 97 99 100 12/28/17 04:45 12/28/17 06:00 12/28/17 07:00 Temperature Pulse Rate 84 88 Respiratory Rate 26 H Blood Pressure 88/53 L Pulse Oximetry 95 96 12/28/17 08:31 Temperature Pulse Rate 79 Respiratory Rate 18 Blood Pressure Pulse Oximetry Intake & Output 12/27/17 12/28/17 12/28/17 18:59 06:59 18:59 Intake Total 700 / 700 300 / 300 Output Total 1999 Balance -1300 / -1300 300 / 300 Intake: IV 50 / 50 100 / 100 Zosyn 2.25 GM Premix 50 ML @ 50 / 50 100 / 100 100 mls/hr IV.SIG Q8H [facility] Rx#: [id number] Oral 650 / 650 200 / 200 Output: Hemodialysis Amount 1999 Other: Date of Last Bowel Movement 12/27/17 12/28/17 # Bowel Movements 1 3 Narrative: General: Alert and responsive. NAD. NECK: No JVD, trachea midline. Respiratory: breath sounds are diminished bilaterally. No accessory muscle use. Cardiovascular: normal rate, regular rhythm. Abdomen: soft, nontender, nondistended. no guarding. Extremities: left groin AVF with + thrill. distal pulses 2+. Neuro: In bed, alert, following some commands, not in distress. <Khalida Laura - Last Filed: 12/28/17 16:05> Vital signs: Vital Signs 12/28/17 14:00 12/28/17 16:00 12/28/17 16:30 Temperature 97.7 F Pulse Rate 80 71 76 Respiratory Rate 20 18 Blood Pressure 93/50 L Pulse Oximetry 97 12/28/17 18:00 12/28/17 20:00 12/28/17 20:13 Temperature 97.9 F Pulse Rate 79 92 H Respiratory Rate 20 Blood Pressure 114/66 Pulse Oximetry 95 98 12/28/17 20:14 12/28/17 22:00 12/29/17 00:00 Temperature 98.1 F Pulse Rate 77 109 H 79 Respiratory Rate 16 17 Blood Pressure 94/51 L Pulse Oximetry 12/29/17 02:00 12/29/17 04:00 12/29/17 06:00 Temperature 98.4 F Pulse Rate 79 75 82 Respiratory Rate 22 Blood Pressure 109/66 Pulse Oximetry 12/29/17 07:00 12/29/17 08:00 12/29/17 10:00 Temperature 98.2 F Pulse Rate 74 80 Respiratory Rate 12 Blood Pressure 102/57 L Pulse Oximetry 100 100 Intake & Output 12/28/17 12/29/17 12/29/17 18:59 06:59 18:59 Intake Total 1969 100 / 100 200 / 200 Output Total 0 / 0 0 / 0 Balance 1969 100 / 100 200 / 200 Intake: IV 50 / 50 100 / 100 200 / 200 Flexbumin 25% Inj 100 ML @ 60 200 / 200 mls/hr IV.SIG [facility] Rx#:[id number] Zosyn 2.25 GM Premix 50 ML @ 50 / 50 100 / 100 100 mls/hr IV.SIG Q8H [facility] Rx#: [id number] Oral 1919 / 1919 0 / 0 Output: Urine 0 / 0 0 / 0 Other: Date of Last Bowel Movement 12/28/17 12/28/17 12/28/17 # Bowel Movements 2 0 <Kaur Bell Q - Last Filed: 12/29/17 12:18> Assessment and Plan - Assessment (1) End stage renal disease on dialysis Code(s): N18.6 - End stage renal disease; Z99.2 - Dependence on renal dialysis Status: Acute Plan: End stage renal disease, HD on TTS. Continue cinacalcet 30 mg daily for secondary hyperparathyroidism Renvela placed on hold with low PO4 levels. Epogen with dialysis Plans for hemodialysis tomorrow. (2) Aspiration pneumonia of both lungs Code(s): J69.0 - Pneumonitis due to inhalation of food and vomit Qualifiers: Aspiration pneumonia type: unspecified Lung location: lower lobe of lung Qualified Code(s): J69.0 - Pneumonitis due to inhalation of food and vomit Plan: On Zosyn and Vancomycin (3) Diabetes Code(s): E11.9 - Type 2 diabetes mellitus without complications Status: Chronic Qualifiers: Diabetes mellitus type: type 2 Chronic kidney disease stage: on chronic dialysis Plan: Maintain blood sugars between 140 mg/dl to 180 mg/dl (4) Syncope Code(s): R55 - Syncope and collapse Status: Acute Qualifiers: Syncope type: unspecified Qualified Code(s): R55 - Syncope and collapse (5) Nausea and vomiting Code(s): R11.2 - Nausea with vomiting, unspecified Status: Acute Qualifiers: Vomiting type: unspecified Vomiting Intractability: non-intractable Qualified Code(s): R11.2 - Nausea with vomiting, unspecified Plan: GI consulted, EGD done, biopsy pending Nausea and vomiting has improved. (6) Anemia Code(s): D64.9 - Anemia, unspecified Status: Acute Plan: HGB stable at 8.8, Epogen with dialysis (7) Hypotension Code(s): I95.9 - Hypotension, unspecified Status: Acute Plan: On low dose levophed, midodrine and florinef. - Plan Patient with end stage renal disease, was admitted with chest and upper abd. pain. HD on TTS. EGD done on 12/23,results noted, follow Hgb. Biopsy pending. Epogen with dialysis. On Zosyn and Vano for sepsis. Hypokalemia, 4 K bath with hemodialysis. PO4 normal continue Renvela. Seen during hemodialysis will remove fluid as tolerated but with hypotension difficult to remove fluid. <Khalida Laura - Last Filed: 12/28/17 16:05> - Assessment (1) End stage renal disease on dialysis Code(s): N18.6 - End stage renal disease; Z99.2 - Dependence on renal dialysis Status: Acute Plan: Patient seen and examined, agree with above. BP is still on lower side. Follow Hgb. HD will be in AM. (2) Aspiration pneumonia of both lungs Code(s): J69.0 - Pneumonitis due to inhalation of food and vomit Qualifiers: Aspiration pneumonia type: unspecified Lung location: lower lobe of lung Qualified Code(s): J69.0 - Pneumonitis due to inhalation of food and vomit (3) Diabetes Code(s): E11.9 - Type 2 diabetes mellitus without complications Status: Chronic Qualifiers: Diabetes mellitus type: type 2 Chronic kidney disease stage: on chronic dialysis (4) Syncope Code(s): R55 - Syncope and collapse Status: Acute Qualifiers: Syncope type: unspecified Qualified Code(s): R55 - Syncope and collapse (5) Nausea and vomiting Code(s): R11.2 - Nausea with vomiting, unspecified Status: Acute Qualifiers: Vomiting type: unspecified Vomiting Intractability: non-intractable Qualified Code(s): R11.2 - Nausea with vomiting, unspecified (6) Anemia Code(s): D64.9 - Anemia, unspecified Status: Acute (7) Hypotension Code(s): I95.9 - Hypotension, unspecified Status: Acute <Lizeth Bell - Last Filed: 12/29/17 12:18>
--- NOTE | 2017-12-28 15:10 | P.PNCC ---
Subjective Subjective Remarks/Hospital Course: This is a 62yM with history of ESRD on HD who presents with multiple days of nausea and vomiting. initially admitted to Obs status where he developed hypotension and acute altered mental status. rapid response called and patient emergently transferred to ICU. patient more awake on arrival to ICU: now answering questions and following commands. BP initially 70s/30s, which didn't respond to 1L crystalloid bolus downstairs. additional 500cc 5% albumin given. BP now 110s/60s. Notable hypochloremia, hyponatremia on labs. Severe metabolic alkalosis on ABG with compensatory hypoventilation. HD this morning with 4L volume removed. Full ROS unobtainable from the patient due to his acute mental status change- limited ROS negative for chest pain, SOB, diarrhea. +nausea/ vomiting. + toe pain: patient states his toes are tingling. no change in motor or sensation in his lower extremities. pulses are 2+. 12/24: Afebrile. During hemodialysis unable to take any fluid off. Remains hypotensive. Currently bolusing. We will place central line and start low- dose norepinephrine. Became hypotensive and unresponsive 0.2 of hydromorphone. 12/25: Currently alternate CODE STATUS intubation only. Remains on norepinephrine drip at 10 mcg/min. Started on antibiotics overnight. Cultures no growth today. Cortisol level 15 which is appropriate. Remains on Midodrine and will add fludrocortisone today. Echocardiogram was ordered for today. Subjective 12/26: Plan for colonoscopy in a.m. Remains on norepinephrine drip at 8 mg/ min. Likely currently pending. CVP is low. Possibly still dry?. Echocardiogram ordered along with holding. Does not look or appear septic stigmata. 12/27: Resting in bed, not in any acute distress. Was being dialyzed at the time of my evaluation this morning. On Levophed for pressor support at 4 mics per minute this morning. 12/28: Resting in bed, not in any acute distress. Levophed being titrated down. Patient's family considering hospice. He is alternate code. Objective Vital Signs / I&O: Vital Signs 12/27/17 15:49 12/27/17 16:00 12/27/17 17:00 Temperature 98.8 F Pulse Rate 79 77 78 Respiratory Rate 16 24 16 Blood Pressure 92/52 L 80/44 L Pulse Oximetry 64 L 12/27/17 17:06 12/27/17 17:15 12/27/17 17:30 Temperature Pulse Rate 83 82 88 Respiratory Rate 15 18 19 Blood Pressure 109/58 L 109/60 107/59 L Pulse Oximetry 100 100 100 12/27/17 17:45 12/27/17 18:00 12/27/17 18:15 Temperature Pulse Rate 85 85 80 Respiratory Rate 21 12 24 Blood Pressure 106/56 L 98/53 L 109/57 L Pulse Oximetry 95 99 70 L 12/27/17 18:45 12/27/17 19:00 12/27/17 19:15 Temperature Pulse Rate 76 79 82 Respiratory Rate 22 18 15 Blood Pressure 88/55 L 91/55 L 94/55 L Pulse Oximetry 67 L 97 100 12/27/17 19:30 12/27/17 19:45 12/27/17 19:55 Temperature Pulse Rate 80 80 80 Respiratory Rate 15 15 14 Blood Pressure 91/58 L 95/51 L Pulse Oximetry 100 93 L 12/27/17 20:00 12/27/17 20:15 12/27/17 20:30 Temperature 98.2 F Pulse Rate 84 87 88 Respiratory Rate 25 H 22 19 Blood Pressure 98/57 L 111/66 95/58 L Pulse Oximetry 99 100 100 12/27/17 20:37 12/27/17 20:45 12/27/17 21:00 Temperature Pulse Rate 83 86 Respiratory Rate 15 20 Blood Pressure 106/64 105/55 L Pulse Oximetry 100 100 100 12/27/17 21:15 12/27/17 21:30 12/27/17 21:46 Temperature Pulse Rate 91 H 83 90 Respiratory Rate 24 24 23 Blood Pressure 98/54 L 96/51 L 98/54 L Pulse Oximetry 100 99 100 12/27/17 22:00 12/27/17 22:16 12/27/17 22:30 Temperature Pulse Rate 82 90 84 Respiratory Rate 15 23 19 Blood Pressure 100/50 L 101/55 L 93/54 L Pulse Oximetry 100 99 100 12/27/17 22:45 12/27/17 23:00 12/27/17 23:15 Temperature Pulse Rate 85 80 79 Respiratory Rate 24 15 19 Blood Pressure 98/57 L 101/50 L 90/52 L Pulse Oximetry 90 L 85 L 97 12/27/17 23:30 12/27/17 23:45 12/28/17 00:00 Temperature 98.5 F Pulse Rate 81 80 88 Respiratory Rate 17 9 L 16 Blood Pressure 89/51 L 88/52 L 86/59 L Pulse Oximetry 97 100 97 12/28/17 00:15 12/28/17 00:30 12/28/17 00:45 Temperature Pulse Rate 79 89 86 Respiratory Rate 17 19 15 Blood Pressure 124/75 102/50 L 102/52 L Pulse Oximetry 77 L 90 L 100 12/28/17 01:00 12/28/17 01:04 12/28/17 01:16 Temperature Pulse Rate 95 H 96 H 89 Respiratory Rate 32 H 17 15 Blood Pressure 94/57 L 97/54 L Pulse Oximetry 97 100 99 12/28/17 01:30 12/28/17 01:45 12/28/17 02:00 Temperature Pulse Rate 83 82 85 Respiratory Rate 22 17 22 Blood Pressure 116/62 103/55 L 101/52 L Pulse Oximetry 100 98 99 12/28/17 02:15 12/28/17 02:18 12/28/17 02:30 Temperature Pulse Rate 84 86 74 Respiratory Rate 12 11 L 12 Blood Pressure 85/48 L 93/57 L 92/54 L Pulse Oximetry 96 93 L 96 12/28/17 02:45 12/28/17 03:00 12/28/17 03:15 Temperature Pulse Rate 78 85 74 Respiratory Rate 22 15 17 Blood Pressure 94/59 L 90/55 L 85/50 L Pulse Oximetry 94 L 96 99 12/28/17 03:30 12/28/17 03:33 12/28/17 03:45 Temperature Pulse Rate 85 90 84 Respiratory Rate 16 23 16 Blood Pressure 69/46 L 96/63 L 101/55 L Pulse Oximetry 88 L 100 97 12/28/17 04:00 12/28/17 04:15 12/28/17 04:30 Temperature 98.5 F Pulse Rate 84 91 H 84 Respiratory Rate 19 19 19 Blood Pressure 93/61 L 90/50 L 96/55 L Pulse Oximetry 97 99 100 12/28/17 04:45 12/28/17 06:00 12/28/17 07:00 Temperature Pulse Rate 84 88 Respiratory Rate 26 H Blood Pressure 88/53 L Pulse Oximetry 95 96 12/28/17 08:00 12/28/17 08:31 12/28/17 10:00 Temperature 97.8 F Pulse Rate 82 79 79 Respiratory Rate 19 18 Blood Pressure 101/53 L Pulse Oximetry 100 12/28/17 12:00 12/28/17 14:00 Temperature 97.9 F Pulse Rate 80 80 Respiratory Rate 24 Blood Pressure 100/59 L Pulse Oximetry 99 Intake & Output 12/27/17 12/28/17 12/28/17 18:59 06:59 18:59 Intake Total 700 / 700 300 / 300 50 / 50 Output Total 1999 Balance -1300 / -1300 300 / 300 50 / 50 Intake: IV 50 / 50 100 / 100 50 / 50 Zosyn 2.25 GM Premix 50 ML @ 50 / 50 100 / 100 50 / 50 100 mls/hr IV.SIG Q8H [facility] Rx#: [id number] Oral 650 / 650 200 / 200 Output: Hemodialysis Amount 1999 Other: Date of Last Bowel Movement 12/27/17 12/28/17 12/28/17 # Bowel Movements 1 3 Result Diagrams: 12/28/17 05:22 12/28/17 05:22 Objective Remarks: gen: This is a 62-year-old AA frail male who appears much older than stated age , lying in bed. heent: nc. at. perrl. mucous membranes moderately moist and pink. Oropharynx without erythema. neck: no jvd. trachea midline. Right IJ CVL is clean dry and intact chest: equal chest rise. Nasal cannula. No muscle use cv: normal rate, regular rhythm. sinus. abd: soft, nontender, nondistended. no guarding. extr: left groin AVF with + thrill. distal pulses 2+. neuro: arouses and follows commands. Power 5/5 in all extremities. sensation grossly intact. no focal deficits. Assessment and Plan - Assessment and Plan Plan: Neuro/Psych: Acute metabolic encephalopathy Bipolar disorder Paranoid schizophrenia Depression Left eye blindness Insomnia Chronic narcotic use Monitor neuro status, awake and alert On Risperidone 0.5 mg every 12 hours, trazodone 150 mg at night for anxiety/ depression On escitalopram oxalate 10 mg at night for depression, lamotrigine 200 mg at night for psychosis On gabapentin 200 mg daily for peripheral neuropathy Discontinue hydromorphone due to altered mental status. Received only 0.1 mg and became unresponsive Was receiving tramadol as an outpatient.. Resume at 50 mg every 6 hours as needed pain CV: Severe sepsis Lactic acidosis- cleared History of chronic diastolic heart failure Hypertension by history Dyslipidemia Coronary disease status post stent placement Peripheral vascular disease Currently hypotensive Monitor HR and BP keep MAP>65mmHg Norepinephrine drip to maintain mean arterial pressure greater than equal 65. Currently on 1 mg/min. Fluid removed with dialysis today, hopefully will titrate off Levophed by tomorrow. Continue midodrine 10 mg by mouth 3 times a day and fludrocortisone 0.1 mg daily Echo showed EF 60-65% 11/12 so doubt cardiac effect Continue pravastatin 20 mg daily for hyperlipidemia Resp: Acute hypoxemic respiratory insufficiency Currently on 3 L nasal cannula Incentive spirometry while awake Albuterol/ipratropium aerosols every 4 hours with albuterol nebs every 2 hours. Aggressive pulmonary toilet GI: Gastroesophageal reflux disease History of esophagitis History of colonic polyps Hiatal hernia Currently on clear liquid diet per GI Currently on pantoprazole 40 mg twice daily s/p EGD LA class D esophagitis and hiatal hernia. Docusate sodium/Senokot for bowel regimen For colonoscopy in a.m. 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 Thrill. Continue Sevelamer 2.4 g 3 times a day for hyperphosphatemia Continue cinacalcet 30 mg daily for secondary hyperparathyroidism Heme: Anemia, normocytic Monitor CBC daily. Continue iron sulfate 325 mg 3 times daily with vitamin C ID: Monitor for signs and symptomatology infection Currently on vancomycin and piperacillin/tazobactam Blood cultures 12/23 and no growth to date FEN: Acute hypokalemia Will give 10 mEq potassium chloride p.o. x1 now. Recheck in a.m. 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 Right IJ CVL day #4 placed 12/24 Prophylaxis - GI - famotidine - DVT - SCD/ heparin SQ .Family request hospice consultation. Wound care consult Will consult and transfer to hospitalist service for further medical management , critical care will be available if needed.
[2017-12-28] MEDS: lamoTRIgine 100 MG Tablet PO SCH (20:34)
[2017-12-28 21:32] LABS: Hematocrit 43.7 % (39.0-51.0); Hemoglobin 14.4 gm/dL (13.0-17.0)
[2017-12-29] MEDS: Insulin NovoLIN Regular Correctional Sugar Inj SQ SCH ×5 (03:21→20:12)
[2017-12-29] MEDS: Piperacil/Tazo 2.25 GM Premix 50 ML IV.SIG SCH ×3 (03:21→20:12)
[2017-12-29 06:20] LABS: Hematocrit 25.3 % (39.0-51.0); Hemoglobin 8.2 gm/dL (13.0-17.0); Mean Corpuscular HGB Conc 32.3 % (32.0-36.0); Mean Corpuscular Hemoglobin 28.3 pg (27.0-34.0); Mean Corpuscular Volume 87.6 fL (80.0-100.0); Platelet Count 199 th/mm3 (150-450); Red Blood Count 2.89 mil/mm3 (4.50-5.90); Red Cell Distribution Width 17.1 % (11.6-17.2)
[2017-12-29 07:02] LABS: Calcium 8.1 mg/dL (8.5-10.1); Carbon Dioxide 31.2 meq/L (21.0-32.0); Magnesium 2.4 mg/dL (1.5-2.5); Phosphorus 2.3 mg/dL (2.5-4.9); Potassium 3.6 meq/L (3.5-5.1)
[2017-12-29] MEDS: Escitalopram 10 MG Tablet PO SCH (09:11)
[2017-12-29] MEDS: Senna/Docusate Sodium 8.6/50 MG Tablet PO SCH ×2 (09:11→20:14)
[2017-12-29] MEDS: Pantoprazole Inj 40 MG Vial IV.PUSH SCH ×2 (09:11→20:14)
[2017-12-29] MEDS: risperiDONE 0.5 MG ODT PO SCH ×2 (09:11→23:14)
[2017-12-29] MEDS: Polyethylene Glycol 3350 17 GM Packet PO SCH (09:11)
[2017-12-29] MEDS: Ascorbic Acid 500 MG Tablet PO SCH ×2 (09:12→20:14)
[2017-12-29] MEDS: Insulin Detemir Inj 1,000 UNIT/10 ML Vial SQ SCH ×2 (09:12→20:13)
--- NOTE | 2017-12-29 09:18 | P.PNIM ---
Subjective Interval history: The patient was undergoing dialysis. He said that his right ear was bothering him. He said that his toes were bothering him. He has been having bowel movements. He has been sleeping well. Physical Exam Vital signs: Vital Signs 12/28/17 10:00 12/28/17 12:00 12/28/17 14:00 Temperature 97.9 F Pulse Rate 79 80 80 Respiratory Rate 24 Blood Pressure 100/59 L Pulse Oximetry 99 12/28/17 16:00 12/28/17 16:30 12/28/17 18:00 Temperature 97.7 F Pulse Rate 71 76 79 Respiratory Rate 20 18 Blood Pressure 93/50 L Pulse Oximetry 97 12/28/17 20:00 12/28/17 20:13 12/28/17 20:14 Temperature 97.9 F Pulse Rate 92 H 77 Respiratory Rate 20 16 Blood Pressure 114/66 Pulse Oximetry 95 98 12/28/17 22:00 12/29/17 00:00 12/29/17 02:00 Temperature 98.1 F Pulse Rate 109 H 79 79 Respiratory Rate 17 Blood Pressure 94/51 L Pulse Oximetry 12/29/17 04:00 12/29/17 06:00 Temperature 98.4 F Pulse Rate 75 82 Respiratory Rate 22 Blood Pressure 109/66 Pulse Oximetry Intake & Output 12/28/17 12/29/17 12/29/17 18:59 06:59 18:59 Intake Total 1969 100 / 100 Output Total 0 / 0 0 / 0 Balance 1969 100 / 100 Intake: IV 50 / 50 100 / 100 Zosyn 2.25 GM Premix 50 ML @ 50 / 50 100 / 100 100 mls/hr IV.SIG Q8H [facility] Rx#: [id number] Oral 1919 0 / 0 Output: Urine 0 / 0 0 / 0 Other: Date of Last Bowel Movement 12/28/17 12/28/17 # Bowel Movements 2 0 Narrative: General: NAD. NECK: No JVD, trachea midline. Respiratory: breath sounds are diminished bilaterally. No accessory muscle use. Cardiovascular: normal rate, regular rhythm. Abdomen: soft, nontender, nondistended. no guarding. Extremities: left groin AVF with + thrill. distal pulses 2+. Neuro: Alert and oriented. Follows commands. Normal speech. Results - Labs CBC & Chem 7: 12/29/17 05:15 12/29/17 05:15 Laboratory Results - last 24 hr 12/28/17 12/28/17 12/28/17 12:44 16:16 20:30 WBC RBC Hgb 14.4 D Hct 43.7 MCV MCH MCHC RDW Plt Count MPV Sodium Potassium Chloride Carbon Dioxide Anion Gap BUN Creatinine Estimated GFR POC Glucose 157 H 147 H Random Glucose Calcium Phosphorus Magnesium 12/28/17 12/28/17 12/29/17 20:32 23:09 03:20 WBC RBC Hgb Hct MCV MCH MCHC RDW Plt Count MPV Sodium Potassium Chloride Carbon Dioxide Anion Gap BUN Creatinine Estimated GFR POC Glucose 147 H 146 H 107 Random Glucose Calcium Phosphorus Magnesium 12/29/17 12/29/17 05:15 05:15 WBC 5.0 RBC 2.89 L Hgb 8.2 L D Hct 25.3 L MCV 87.6 MCH 28.3 MCHC 32.3 RDW 17.1 Plt Count 199 MPV 9.0 Sodium 144 Potassium 3.6 Chloride 103 Carbon Dioxide 31.2 Anion Gap 10 BUN 18 Creatinine 7.35 H Estimated GFR 9 L POC Glucose Random Glucose 85 Calcium 8.1 L Phosphorus 2.3 L Magnesium 2.4 Microbiology 12/24/17 07:56 Blood - Peripheral Aerobic Blood Culture - Preliminary No growth in 4 days 12/24/17 07:56 Blood - Peripheral Anaerobic Blood Culture - Preliminary No growth in 4 days 12/23/17 13:15 Blood - Peripheral Aerobic Blood Culture - Final No growth in 5 days 12/23/17 13:15 Blood - Peripheral Anaerobic Blood Culture - Final No growth in 5 days Assessment and Plan - Plan Acute metabolic encephalopathy Bipolar disorder Paranoid schizophrenia Depression Left eye blindness Insomnia Chronic narcotic use -On Risperidone 0.5 mg every 12 hours, trazodone 150 mg at night for anxiety/ depression -On escitalopram oxalate 10 mg at night for depression, lamotrigine 200 mg at night for psychosis -On gabapentin 200 mg daily for peripheral neuropathy -Was receiving tramadol as an outpatient. Resume at 50 mg every 6 hours as needed pain Severe sepsis Lactic acidosis- cleared History of chronic diastolic heart failure Hypertension by history Dyslipidemia Coronary disease status post stent placement Peripheral vascular disease Currently hypotensive -Norepinephrine drip to maintain mean arterial pressure greater than equal 65. Wean as tolerated. -Continue midodrine 10 mg by mouth 3 times a day and fludrocortisone 0.1 mg daily. -Echo showed EF 60-65% 11/12 so doubt cardiac effect. -Continue pravastatin 20 mg daily for hyperlipidemia. -hospice following. Acute hypoxemic respiratory insufficiency/ Pneumonia -Currently on 3 L nasal cannula -Incentive spirometry while awake -Albuterol/ipratropium aerosols every 4 hours with albuterol nebs every 2 hours. -Aggressive pulmonary toilet. -vancomycin and Zosyn. Gastroesophageal reflux disease History of esophagitis History of colonic polyps Hiatal hernia -ADAT. -Currently on pantoprazole 40 mg twice daily -s/p EGD LA class D esophagitis and hiatal hernia. 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
[2017-12-29] MEDS: Albumin Human 25% Inj 100 ML IV.SIG PRN ×2 (09:31→09:36)
--- NOTE | 2017-12-29 11:44 | P.PNNP ---
Subjective Interval history: Seen during hemodialysis. Blood pressure on lower side. Denies any shortness of breath, nausea or vomiting. Reports pruritus. <Khalida Laura - Last Filed: 12/29/17 11:44> Physical Exam Vital signs: Vital Signs 12/28/17 12:00 12/28/17 14:00 12/28/17 16:00 Temperature 97.9 F 97.7 F Pulse Rate 80 80 71 Respiratory Rate 24 20 Blood Pressure 100/59 L 93/50 L Pulse Oximetry 99 97 12/28/17 16:30 12/28/17 18:00 12/28/17 20:00 Temperature 97.9 F Pulse Rate 76 79 92 H Respiratory Rate 18 20 Blood Pressure 114/66 Pulse Oximetry 95 12/28/17 20:13 12/28/17 20:14 12/28/17 22:00 Temperature Pulse Rate 77 109 H Respiratory Rate 16 Blood Pressure Pulse Oximetry 98 12/29/17 00:00 12/29/17 02:00 12/29/17 04:00 Temperature 98.1 F 98.4 F Pulse Rate 79 79 75 Respiratory Rate 17 22 Blood Pressure 94/51 L 109/66 Pulse Oximetry 12/29/17 06:00 12/29/17 07:00 12/29/17 08:00 Temperature 98.2 F Pulse Rate 82 74 Respiratory Rate 12 Blood Pressure 102/57 L Pulse Oximetry 100 100 12/29/17 10:00 Temperature Pulse Rate 80 Respiratory Rate Blood Pressure Pulse Oximetry Intake & Output 12/28/17 12/29/17 12/29/17 18:59 06:59 18:59 Intake Total 1969 100 / 100 200 / 200 Output Total 0 / 0 0 / 0 Balance 1969 100 / 100 200 / 200 Intake: IV 50 / 50 100 / 100 200 / 200 Flexbumin 25% Inj 100 ML @ 60 200 / 200 mls/hr IV.SIG WITH DIALYSIS PRN Rx#:[id number] Zosyn 2.25 GM Premix 50 ML @ 50 / 50 100 / 100 100 mls/hr IV.SIG Q8H [facility] Rx#: [id number] Oral 1919 0 / 0 Output: Urine 0 / 0 0 / 0 Other: Date of Last Bowel Movement 12/28/17 12/28/17 12/28/17 # Bowel Movements 2 0 Narrative: General: NAD. NECK: No JVD, trachea midline. Respiratory: breath sounds are diminished bilaterally. No accessory muscle use. Cardiovascular: normal rate, regular rhythm. Abdomen: soft, nontender, nondistended. no guarding. Extremities: left groin AVF with + thrill. distal pulses 2+, left upper extremity contracture. Neuro: Alert and oriented. Follows commands. Normal speech. <Khalida Laura - Last Filed: 12/29/17 11:44> Vital signs: Vital Signs 12/28/17 14:00 12/28/17 16:00 12/28/17 16:30 Temperature 97.7 F Pulse Rate 80 71 76 Respiratory Rate 20 18 Blood Pressure 93/50 L Pulse Oximetry 97 12/28/17 18:00 12/28/17 20:00 12/28/17 20:13 Temperature 97.9 F Pulse Rate 79 92 H Respiratory Rate 20 Blood Pressure 114/66 Pulse Oximetry 95 98 12/28/17 20:14 12/28/17 22:00 12/29/17 00:00 Temperature 98.1 F Pulse Rate 77 109 H 79 Respiratory Rate 16 17 Blood Pressure 94/51 L Pulse Oximetry 12/29/17 02:00 12/29/17 04:00 12/29/17 06:00 Temperature 98.4 F Pulse Rate 79 75 82 Respiratory Rate 22 Blood Pressure 109/66 Pulse Oximetry 12/29/17 07:00 12/29/17 08:00 12/29/17 10:00 Temperature 98.2 F Pulse Rate 74 80 Respiratory Rate 12 Blood Pressure 102/57 L Pulse Oximetry 100 100 Intake & Output 12/28/17 12/29/17 12/29/17 18:59 06:59 18:59 Intake Total 1969 100 / 100 200 / 200 Output Total 0 / 0 0 / 0 Balance 1969 100 / 100 200 / 200 Intake: IV 50 / 50 100 / 100 200 / 200 Flexbumin 25% Inj 100 ML @ 60 200 / 200 mls/hr IV.SIG WITH DIALYSIS PRN Rx#:[id number] Zosyn 2.25 GM Premix 50 ML @ 50 / 50 100 / 100 100 mls/hr IV.SIG Q8H [facility] Rx#: [id number] Oral 1919 / 1919 0 / 0 Output: Urine 0 / 0 0 / 0 Other: Date of Last Bowel Movement 12/28/17 12/28/17 12/28/17 # Bowel Movements 2 0 <Lizeth Bell - Last Filed: 12/29/17 12:43> Assessment and Plan - Assessment (1) End stage renal disease on dialysis Code(s): N18.6 - End stage renal disease; Z99.2 - Dependence on renal dialysis Status: Acute Plan: End stage renal disease, HD on TTS. Continue cinacalcet 30 mg daily for secondary hyperparathyroidism Renvela placed on hold with low PO4 levels. Benadryl ordered PRN for increased pruritus. Epogen with dialysis Seen during hemodialysis. (2) Aspiration pneumonia of both lungs Code(s): J69.0 - Pneumonitis due to inhalation of food and vomit Qualifiers: Aspiration pneumonia type: unspecified Lung location: lower lobe of lung Qualified Code(s): J69.0 - Pneumonitis due to inhalation of food and vomit Plan: On Zosyn and Vancomycin (3) Diabetes Code(s): E11.9 - Type 2 diabetes mellitus without complications Status: Chronic Qualifiers: Diabetes mellitus type: type 2 Chronic kidney disease stage: on chronic dialysis Plan: Well controlled, recommend to maintain blood sugars between 140 mg/dl to 180 mg/ dl (4) Syncope Code(s): R55 - Syncope and collapse Status: Acute Qualifiers: Syncope type: unspecified Qualified Code(s): R55 - Syncope and collapse (5) Nausea and vomiting Code(s): R11.2 - Nausea with vomiting, unspecified Status: Acute Qualifiers: Vomiting type: unspecified Vomiting Intractability: non-intractable Qualified Code(s): R11.2 - Nausea with vomiting, unspecified Plan: GI consulted, EGD done, biopsy pending Nausea and vomiting has improved. (6) Anemia Code(s): D64.9 - Anemia, unspecified Status: Acute Plan: HGB stable at 8.2, Epogen with dialysis (7) Hypotension Code(s): I95.9 - Hypotension, unspecified Status: Acute Plan: On midodrine and florinef. Levophed weaned off. <Khalida Laura - Last Filed: 12/29/17 11:44> - Assessment (1) End stage renal disease on dialysis Code(s): N18.6 - End stage renal disease; Z99.2 - Dependence on renal dialysis Status: Acute Plan: Patient seen during HD, and examined, agree with above. BP is on lower side and stable. Follow Hgb, for colonoscopy. (2) Aspiration pneumonia of both lungs Code(s): J69.0 - Pneumonitis due to inhalation of food and vomit Qualifiers: Aspiration pneumonia type: unspecified Lung location: lower lobe of lung Qualified Code(s): J69.0 - Pneumonitis due to inhalation of food and vomit (3) Diabetes Code(s): E11.9 - Type 2 diabetes mellitus without complications Status: Chronic Qualifiers: Diabetes mellitus type: type 2 Chronic kidney disease stage: on chronic dialysis (4) Syncope Code(s): R55 - Syncope and collapse Status: Acute Qualifiers: Syncope type: unspecified Qualified Code(s): R55 - Syncope and collapse (5) Nausea and vomiting Code(s): R11.2 - Nausea with vomiting, unspecified Status: Acute Qualifiers: Vomiting type: unspecified Vomiting Intractability: non-intractable Qualified Code(s): R11.2 - Nausea with vomiting, unspecified (6) Anemia Code(s): D64.9 - Anemia, unspecified Status: Acute (7) Hypotension Code(s): I95.9 - Hypotension, unspecified Status: Acute <Lizeth Bell - Last Filed: 12/29/17 12:43>
[2017-12-29 14:43] LABS: Hematocrit 24.8 % (39.0-51.0); Hemoglobin 7.8 gm/dL (13.0-17.0)
[2017-12-29] MEDS: lamoTRIgine 100 MG Tablet PO SCH (20:13)
[2017-12-30] MEDS: Insulin NovoLIN Regular Correctional Sugar Inj SQ SCH ×6 (00:06→21:26)
[2017-12-30] MEDS: Piperacil/Tazo 2.25 GM Premix 50 ML IV.SIG SCH ×3 (04:21→21:30)
[2017-12-30 05:58] LABS: Hematocrit 24.9 % (39.0-51.0); Hemoglobin 7.9 gm/dL (13.0-17.0); Mean Corpuscular HGB Conc 31.7 % (32.0-36.0); Mean Corpuscular Hemoglobin 28.3 pg (27.0-34.0); Mean Corpuscular Volume 89.1 fL (80.0-100.0); Mean Platelet Volume 8.8 fL (7.0-11.0); Platelet Count 215 th/mm3 (150-450); Red Cell Distribution Width 17.2 % (11.6-17.2); White Blood Count 4.5 th/mm3 (4.0-11.0)
[2017-12-30 06:39] LABS: Calcium 7.8 mg/dL (8.5-10.1); Carbon Dioxide 32.7 meq/L (21.0-32.0); Magnesium 2.1 mg/dL (1.5-2.5); Potassium 3.2 meq/L (3.5-5.1)
[2017-12-30] MEDS: Insulin Detemir Inj 1,000 UNIT/10 ML Vial SQ SCH (08:25)
[2017-12-30] MEDS: Pantoprazole Inj 40 MG Vial IV.PUSH SCH ×2 (08:25→21:28)
[2017-12-30] MEDS: Escitalopram 10 MG Tablet PO SCH (08:25)
[2017-12-30] MEDS: Ascorbic Acid 500 MG Tablet PO SCH ×2 (08:25→21:28)
[2017-12-30] MEDS: Polyethylene Glycol 3350 17 GM Packet PO SCH (08:25)
[2017-12-30] MEDS: Senna/Docusate Sodium 8.6/50 MG Tablet PO SCH ×2 (08:25→21:30)
[2017-12-30] MEDS: risperiDONE 0.5 MG ODT PO SCH ×2 (08:25→21:30)
--- NOTE | 2017-12-30 11:18 | P.PNNP ---
Subjective Interval history: Resting comfortable. No shortness of breath, chest pain, nausea, or vomiting. HD done yesterday. <Cherri Laurane - Last Filed: 12/30/17 11:15> Physical Exam Vital signs: Vital Signs 12/29/17 12:00 12/29/17 14:00 12/29/17 16:00 Temperature 98.3 F 98.1 F Pulse Rate 83 80 71 Respiratory Rate 12 22 Blood Pressure 101/52 L 87/49 L Pulse Oximetry 100 100 12/29/17 18:00 12/29/17 19:00 12/29/17 20:00 Temperature 99 F Pulse Rate 81 77 Respiratory Rate 20 Blood Pressure 114/64 Pulse Oximetry 93 L 100 12/29/17 22:00 12/30/17 00:00 12/30/17 02:00 Temperature 98.9 F Pulse Rate 81 71 66 Respiratory Rate 16 Blood Pressure 81/43 L Pulse Oximetry 100 12/30/17 04:00 12/30/17 06:00 Temperature 98.8 F Pulse Rate 80 78 Respiratory Rate 13 Blood Pressure 119/67 Pulse Oximetry 100 Intake & Output 12/29/17 12/30/17 12/30/17 18:59 06:59 18:59 Intake Total 370 / 370 590 / 590 Output Total 1999 0 / 0 Balance -1630 / -1630 590 / 590 Weight 72 kg Intake: IV 250 / 250 350 / 350 Flexbumin 25% Inj 100 ML @ 60 200 / 200 mls/hr IV.SIG WITH DIALYSIS PRN Rx#:[id number] Zosyn 2.25 GM Premix 50 ML @ 50 / 50 100 / 100 100 mls/hr IV.SIG Q8H [facility] Rx#: [id number] Vancomycin Inj 1,000 MG In NS 250 / 250 Inj 250 ML @ 250 mls/hr IV.SIG WITH DIALYSIS [facility] Rx#:[id number] Oral 120 / 120 240 / 240 Output: Urine 0 / 0 0 / 0 Hemodialysis Amount 1999 Other: Date of Last Bowel Movement 12/29/17 12/29/17 12/29/17 # Bowel Movements 2 0 Narrative: General: NAD. NECK: No JVD, trachea midline. Respiratory: breath sounds are diminished bilaterally. No accessory muscle use. Cardiovascular: normal rate, regular rhythm. Abdomen: soft, nontender, nondistended. no guarding. Extremities: left groin AVF with + thrill. distal pulses 2+, left upper extremity contracture. Neuro: Alert and oriented. Follows commands. Normal speech. <Khalida Laura - Last Filed: 12/30/17 11:15> Vital signs: Vital Signs 01/03/18 20:00 01/04/18 00:00 01/04/18 04:00 Temperature 98.2 F 97.9 F 97.6 F Pulse Rate 74 72 74 Respiratory Rate 17 16 16 Blood Pressure 94/67 L 93/60 L 94/67 L Pulse Oximetry 97 95 95 01/04/18 08:00 01/04/18 11:04 01/04/18 12:00 Temperature 97.8 F 98.2 F Pulse Rate 74 80 Respiratory Rate 18 18 Blood Pressure 93/52 L 107/61 Pulse Oximetry 98 98 96 01/04/18 16:00 Temperature 99.0 F Pulse Rate 71 Respiratory Rate 17 Blood Pressure 95/51 L Pulse Oximetry 96 Intake & Output 01/03/18 01/04/18 01/04/18 18:59 06:59 18:59 Intake Total 312.5 / 312.5 105 / 105 1567 / 1567 Output Total 2500 / 2500 0 / 0 Balance -2187.5 / -2187.5 105 / 105 1567 / 1567 Weight 73.6 kg Intake: IV 312.5 / 312.5 105 / 105 1055 / 1055 D5W/1/2 NS Inj 1,000 ML @ 42 1000 / 1000 mls/hr IV.CONT .[id number] [facility] Rx# :[id number] Zosyn 2.25 GM Premix 50 ML @ 50 / 50 105 / 105 55 / 55 100 mls/hr IV.SIG Q8H [facility] Rx#: [id number] Vancomycin Inj 1,250 MG In NS 262.5 / 262.5 Inj 250 ML @ 250 mls/hr IV.SIG WITH DIALYSIS [facility] Rx#:[id number] Oral 0 / 0 0 / 0 Other 512 / 512 Output: Urine 0 / 0 Hemodialysis Amount 2500 / 2500 Other: # Voids 0 Date of Last Bowel Movement 01/03/18 01/03/18 # Bowel Movements 1 0 <Lizeth Bell - Last Filed: 01/04/18 18:25> Assessment and Plan - Assessment (1) End stage renal disease on dialysis Code(s): N18.6 - End stage renal disease; Z99.2 - Dependence on renal dialysis Status: Acute Plan: End stage renal disease, HD on TTS. Continue cinacalcet 30 mg daily for secondary hyperparathyroidism Continue to hold Renvela, low PO4 levels. Epogen with dialysis HD yesterday with removal of 2 liters of fluid (2) Aspiration pneumonia of both lungs Code(s): J69.0 - Pneumonitis due to inhalation of food and vomit Qualifiers: Aspiration pneumonia type: unspecified Lung location: lower lobe of lung Qualified Code(s): J69.0 - Pneumonitis due to inhalation of food and vomit Plan: On Zosyn and Vancomycin (3) Diabetes Code(s): E11.9 - Type 2 diabetes mellitus without complications Status: Chronic Qualifiers: Diabetes mellitus type: type 2 Chronic kidney disease stage: on chronic dialysis Plan: Well controlled, recommend to maintain blood sugars between 140 mg/dl to 180 mg/ dl (4) Syncope Code(s): R55 - Syncope and collapse Status: Acute Qualifiers: Syncope type: unspecified Qualified Code(s): R55 - Syncope and collapse (5) Nausea and vomiting Code(s): R11.2 - Nausea with vomiting, unspecified Status: Acute Qualifiers: Vomiting type: unspecified Vomiting Intractability: non-intractable Qualified Code(s): R11.2 - Nausea with vomiting, unspecified Plan: GI consulted, EGD done, biopsy pending Nausea and vomiting has improved. (6) Anemia Code(s): D64.9 - Anemia, unspecified Status: Acute Plan: HGB stable at 8.2, Epogen with dialysis (7) Hypotension Code(s): I95.9 - Hypotension, unspecified Status: Acute Plan: On midodrine and florinef. Has improved. <Khalida Laura - Last Filed: 12/30/17 11:15> - Assessment (1) End stage renal disease on dialysis Code(s): N18.6 - End stage renal disease; Z99.2 - Dependence on renal dialysis Status: Acute Plan: Patient seen and examined, agree with above. Po4 is low, Renvela is on hold. Continue HD as per schedule. (2) Aspiration pneumonia of both lungs Code(s): J69.0 - Pneumonitis due to inhalation of food and vomit Qualifiers: Aspiration pneumonia type: unspecified Lung location: lower lobe of lung Qualified Code(s): J69.0 - Pneumonitis due to inhalation of food and vomit (3) Diabetes Code(s): E11.9 - Type 2 diabetes mellitus without complications Status: Chronic Qualifiers: Diabetes mellitus type: type 2 Chronic kidney disease stage: on chronic dialysis (4) Syncope Code(s): R55 - Syncope and collapse Status: Acute Qualifiers: Syncope type: unspecified Qualified Code(s): R55 - Syncope and collapse (5) Nausea and vomiting Code(s): R11.2 - Nausea with vomiting, unspecified Status: Acute Qualifiers: Vomiting type: unspecified Vomiting Intractability: non-intractable Qualified Code(s): R11.2 - Nausea with vomiting, unspecified (6) Anemia Code(s): D64.9 - Anemia, unspecified Status: Acute (7) Hypotension Code(s): I95.9 - Hypotension, unspecified Status: Acute <Lizeth Bell - Last Filed: 01/04/18 18:25>
--- NOTE | 2017-12-30 11:40 | P.PNIM ---
Subjective Interval history: The patient was resting comfortably in bed. He was sleepy. He had no acute complaints. Discussed with nursing who reported his blood sugars have been somewhat low and that his potassium was low. No acute concerns. Physical Exam Vital signs: Vital Signs 12/29/17 12:00 12/29/17 14:00 12/29/17 16:00 Temperature 98.3 F 98.1 F Pulse Rate 83 80 71 Respiratory Rate 12 22 Blood Pressure 101/52 L 87/49 L Pulse Oximetry 100 100 12/29/17 18:00 12/29/17 19:00 12/29/17 20:00 Temperature 99 F Pulse Rate 81 77 Respiratory Rate 20 Blood Pressure 114/64 Pulse Oximetry 93 L 100 12/29/17 22:00 12/30/17 00:00 12/30/17 02:00 Temperature 98.9 F Pulse Rate 81 71 66 Respiratory Rate 16 Blood Pressure 81/43 L Pulse Oximetry 100 12/30/17 04:00 12/30/17 06:00 Temperature 98.8 F Pulse Rate 80 78 Respiratory Rate 13 Blood Pressure 119/67 Pulse Oximetry 100 Intake & Output 12/29/17 12/30/17 12/30/17 18:59 06:59 18:59 Intake Total 370 / 370 590 / 590 Output Total 1999 0 / 0 Balance -1630 / -1630 590 / 590 Weight 72 kg Intake: IV 250 / 250 350 / 350 Flexbumin 25% Inj 100 ML @ 60 200 / 200 mls/hr IV.SIG WITH DIALYSIS PRN Rx#:[id number] Zosyn 2.25 GM Premix 50 ML @ 50 / 50 100 / 100 100 mls/hr IV.SIG Q8H [facility] Rx#: [id number] Vancomycin Inj 1,000 MG In NS 250 / 250 Inj 250 ML @ 250 mls/hr IV.SIG WITH DIALYSIS [facility] Rx#:[id number] Oral 120 / 120 240 / 240 Output: Urine 0 / 0 0 / 0 Hemodialysis Amount 1999 Other: Date of Last Bowel Movement 12/29/17 12/29/17 12/29/17 # Bowel Movements 2 0 Narrative: General: NAD. NECK: No JVD, trachea midline. Respiratory: Breath sounds are diminished bilaterally. No accessory muscle use. Cardiovascular: Normal rate, regular rhythm. Abdomen: Soft, nontender, nondistended. No guarding. Extremities: Left groin AVF with + thrill. distal pulses 2+, left upper extremity contracture. Neuro: Alert and oriented. Follows commands. Normal speech. Results - Labs CBC & Chem 7: 12/30/17 05:10 12/30/17 05:10 Laboratory Results - last 24 hr 12/29/17 12/29/17 12/29/17 11:28 13:51 15:41 WBC RBC Hgb 7.8 L Hct 24.8 L MCV MCH MCHC RDW Plt Count MPV Sodium Potassium Chloride Carbon Dioxide Anion Gap BUN Creatinine Estimated GFR POC Glucose 111 H 90 Random Glucose Calcium Phosphorus Magnesium 12/29/17 12/29/17 12/30/17 20:00 23:57 04:12 WBC RBC Hgb Hct MCV MCH MCHC RDW Plt Count MPV Sodium Potassium Chloride Carbon Dioxide Anion Gap BUN Creatinine Estimated GFR POC Glucose 101 76 63 L Random Glucose Calcium Phosphorus Magnesium 12/30/17 12/30/17 12/30/17 05:10 05:10 07:23 WBC 4.5 RBC 2.80 L Hgb 7.9 L Hct 24.9 L MCV 89.1 MCH 28.3 MCHC 31.7 L RDW 17.2 Plt Count 215 MPV 8.8 Sodium 145 Potassium 3.2 L Chloride 104 Carbon Dioxide 32.7 H Anion Gap 8 BUN 9 Creatinine 4.82 H Estimated GFR 15 L POC Glucose 104 Random Glucose 86 Calcium 7.8 L Phosphorus 2.0 L Magnesium 2.1 12/30/17 11:19 WBC RBC Hgb Hct MCV MCH MCHC RDW Plt Count MPV Sodium Potassium Chloride Carbon Dioxide Anion Gap BUN Creatinine Estimated GFR POC Glucose 146 H Random Glucose Calcium Phosphorus Magnesium Microbiology 12/24/17 07:56 Blood - Peripheral Aerobic Blood Culture - Final No growth in 5 days 12/24/17 07:56 Blood - Peripheral Anaerobic Blood Culture - Final No growth in 5 days Assessment and Plan - Plan Acute metabolic encephalopathy Bipolar disorder Paranoid schizophrenia Depression Left eye blindness Insomnia Chronic narcotic use -On Risperidone 0.5 mg every 12 hours, trazodone 150 mg at night for anxiety/ depression -On escitalopram oxalate 10 mg at night for depression, lamotrigine 200 mg at night for psychosis -On gabapentin 200 mg daily for peripheral neuropathy -Was receiving tramadol as an outpatient. Resume at 50 mg every 6 hours as needed pain. Severe sepsis Lactic acidosis- cleared History of chronic diastolic heart failure Hypertension by history Dyslipidemia Coronary disease status post stent placement Peripheral vascular disease Currently hypotensive -Norepinephrine drip to maintain mean arterial pressure greater than equal 65. Wean as tolerated. -Continue midodrine 10 mg by mouth 3 times a day and fludrocortisone 0.1 mg daily. -Echo showed EF 60-65% 11/12 so doubt cardiac effect. -Continue pravastatin 20 mg daily for hyperlipidemia. -hospice following. -continue antibiotics. Acute hypoxemic respiratory insufficiency/ Pneumonia -Currently on 3 L nasal cannula -Incentive spirometry while awake -Albuterol/ipratropium aerosols every 4 hours with albuterol nebs every 2 hours. -Aggressive pulmonary toilet. -vancomycin and Zosyn. Consider discontinuing in the next 1-2 days. -repeat CXR. Gastroesophageal reflux disease History of esophagitis History of colonic polyps Hiatal hernia -ADAT. -Currently on pantoprazole 40 mg twice daily -s/p EGD LA class D esophagitis and hiatal hernia. 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 Resume at lower dose if needed. End-stage renal disease on hemodialysis Tuesday//Tuesday Hypernatremia Secondary hyperparathyroidism -hemodialysis per nephrology. 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 Await improvement in respiratory status. D/c back to SNF when stable.
--- NOTE | 2017-12-30 13:20 | XR ---
EXAM DATE: 12/30/2017 1:13 PM EDT AGE/SEX: 62 years / Male INDICATIONS: Pneumonia. CLINICAL DATA: This is the patient's initial encounter. Patient reports that signs and symptoms have been present for 1 week and indicates a pain score of Nonresponsive. MEDICAL/SURGICAL HISTORY: . AV fistula,, BPH, bipolar, cerebral infarct, CK, Left hand contract ure, dysphagia, ESRD, GERD, heart failure, hypothyroid, PVD, dialysis schizophrenia, diabetes . card iac catheterization. COMPARISON: [facility], CHEST 1V SINGLE AP, 12/27/2017. . FINDINGS: Minimal parenchymal changes right base. Stable parenchymal changes left base Mild compensated cardiomegaly Central line in good position. CONCLUSION: Stable chest. Electronically signed by: Felix Isaac MD 12/30/2017 1:19 PM EDT
[2017-12-30] MEDS: lamoTRIgine 100 MG Tablet PO SCH (21:30)
[2017-12-30 22:21] LABS: Hematocrit 26.5 % (39.0-51.0); Hemoglobin 8.3 gm/dL (13.0-17.0)
[2017-12-31] MEDS: Insulin NovoLIN Regular Correctional Sugar Inj SQ SCH ×6 (00:10→22:09)
[2017-12-31] MEDS: Piperacil/Tazo 2.25 GM Premix 50 ML IV.SIG SCH ×3 (03:33→21:57)
[2017-12-31 07:27] LABS: Hematocrit 24.6 % (39.0-51.0); Hemoglobin 8.2 gm/dL (13.0-17.0); Mean Corpuscular HGB Conc 33.1 % (32.0-36.0); Mean Corpuscular Hemoglobin 29.3 pg (27.0-34.0); Mean Corpuscular Volume 88.7 fL (80.0-100.0); Mean Platelet Volume 9.5 fL (7.0-11.0); Platelet Count 287 th/mm3 (150-450); Red Blood Count 2.78 mil/mm3 (4.50-5.90); Red Cell Distribution Width 17.3 % (11.6-17.2); White Blood Count 5.5 th/mm3 (4.0-11.0)
[2017-12-31] MEDS: Pantoprazole Inj 40 MG Vial IV.PUSH SCH ×2 (08:02→21:58)
[2017-12-31] MEDS: Polyethylene Glycol 3350 17 GM Packet PO SCH (08:03)
[2017-12-31] MEDS: Senna/Docusate Sodium 8.6/50 MG Tablet PO SCH ×2 (08:03→21:58)
[2017-12-31] MEDS: Escitalopram 10 MG Tablet PO SCH (08:03)
[2017-12-31] MEDS: risperiDONE 0.5 MG ODT PO SCH ×2 (08:03→21:58)
[2017-12-31] MEDS: Ascorbic Acid 500 MG Tablet PO SCH ×2 (08:03→21:58)
[2017-12-31 08:14] LABS: Carbon Dioxide 31.2 meq/L (21.0-32.0); Phosphorus 2.7 mg/dL (2.5-4.9); Vancomycin,Random 14.2 Comment
[2017-12-31 08:25] LABS: Potassium 4.2 meq/L (3.5-5.1)
--- NOTE | 2017-12-31 11:03 | P.PNNP ---
Subjective Interval history: Patient seen during hemodialysis Physical Exam Vital signs: Vital Signs 12/30/17 12:00 12/30/17 16:00 12/30/17 20:00 Temperature 98.8 F 97.7 F 98.2 F Pulse Rate 68 76 79 Respiratory Rate 12 18 Blood Pressure 107/56 L 138/69 112/62 Pulse Oximetry 99 100 96 12/30/17 22:25 12/31/17 00:00 12/31/17 04:00 Temperature 97.9 F 97.9 F Pulse Rate 81 83 Respiratory Rate 18 Blood Pressure 95/57 L 106/59 L Pulse Oximetry 96 93 L 12/31/17 08:00 Temperature 98.2 F Pulse Rate 72 Respiratory Rate 16 Blood Pressure 116/61 Pulse Oximetry 98 Intake & Output 12/30/17 12/31/17 12/31/17 18:59 06:59 18:59 Intake Total 286 / 286 100 / 100 Balance 286 / 286 100 / 100 Weight 79.7 kg Intake: IV 50 / 50 100 / 100 Zosyn 2.25 GM Premix 50 ML @ 50 / 50 100 / 100 100 mls/hr IV.SIG Q8H [facility] Rx#: [id number] Oral 236 / 236 Other: # Voids 0 # Incontinent Voids 3 Date of Last Bowel Movement 12/30/17 Narrative: General: NAD. NECK: No JVD, trachea midline. Respiratory: Breath sounds are diminished bilaterally. No accessory muscle use. Cardiovascular: Normal rate, regular rhythm. Abdomen: Soft, nontender, nondistended. No guarding. Extremities: Left groin AVF with + thrill. distal pulses 2+, left upper extremity contracture. Neuro: Alert and oriented. Follows commands. Normal speech. Assessment and Plan - Assessment (1) End stage renal disease on dialysis Code(s): N18.6 - End stage renal disease; Z99.2 - Dependence on renal dialysis Status: Acute Plan: End stage renal disease, HD on TTS. Continue cinacalcet 30 mg daily for secondary hyperparathyroidism Continue to hold Renvela, low PO4 levels. Epogen with dialysis HD progress noted on 3K bath ultrafiltration of 3 L plan tolerating it well (2) Aspiration pneumonia of both lungs Code(s): J69.0 - Pneumonitis due to inhalation of food and vomit Qualifiers: Aspiration pneumonia type: unspecified Lung location: lower lobe of lung Qualified Code(s): J69.0 - Pneumonitis due to inhalation of food and vomit Plan: On Zosyn and Vancomycin (3) Diabetes Code(s): E11.9 - Type 2 diabetes mellitus without complications Status: Chronic Qualifiers: Diabetes mellitus type: type 2 Chronic kidney disease stage: on chronic dialysis Plan: Well controlled, recommend to maintain blood sugars between 140 mg/dl to 180 mg/ dl (4) Syncope Code(s): R55 - Syncope and collapse Status: Acute Qualifiers: Syncope type: unspecified Qualified Code(s): R55 - Syncope and collapse (5) Nausea and vomiting Code(s): R11.2 - Nausea with vomiting, unspecified Status: Acute Qualifiers: Vomiting type: unspecified Vomiting Intractability: non-intractable Qualified Code(s): R11.2 - Nausea with vomiting, unspecified Plan: GI consulted, EGD done, biopsy pending Nausea and vomiting has improved. (6) Anemia Code(s): D64.9 - Anemia, unspecified Status: Acute Plan: HGB stable at 8.2, Epogen with dialysis (7) Hypotension Code(s): I95.9 - Hypotension, unspecified Status: Acute Plan: On midodrine and florinef. Has improved.
[2017-12-31] MEDS: Vancomycin Inj 1,250 MG in Sodium Chlor 0.9% Inj 250 ML IV.SIG SCH (12:41)
--- NOTE | 2017-12-31 16:03 | P.PNIM ---
Subjective Interval history: Mr. Sharpe main complaint today is that he is hungry. He is also asking when he might be going home. He underwent an EGD yesterday but is still on a clear liquid diet. Findings of the EGD were reviewed and there does not seem to be a reason why he cannot eat. Physical Exam Vital signs: Vital Signs 12/30/17 16:00 12/30/17 20:00 12/30/17 22:25 Temperature 97.7 F 98.2 F Pulse Rate 76 79 Respiratory Rate 18 Blood Pressure 138/69 112/62 Pulse Oximetry 100 96 12/31/17 00:00 12/31/17 04:00 12/31/17 08:00 Temperature 97.9 F 97.9 F 98.2 F Pulse Rate 81 83 72 Respiratory Rate 16 Blood Pressure 95/57 L 106/59 L 116/61 Pulse Oximetry 96 93 L 98 12/31/17 15:40 Temperature Pulse Rate Respiratory Rate Blood Pressure Pulse Oximetry 100 Intake & Output 12/30/17 12/31/17 12/31/17 18:59 06:59 18:59 Intake Total 286 / 286 100 / 100 50 / 50 Output Total 3000 / 3000 Balance 286 / 286 100 / 100 -2950 / -2950 Weight 79.7 kg Intake: IV 50 / 50 100 / 100 50 / 50 Zosyn 2.25 GM Premix 50 ML @ 50 / 50 100 / 100 50 / 50 100 mls/hr IV.SIG Q8H [facility] Rx#: [id number] Oral 236 / 236 Output: Hemodialysis Amount 3000 / 3000 Other: # Voids 0 # Incontinent Voids 3 Date of Last Bowel Movement 12/30/17 Narrative: GENERAL: AAOx3, no acute distress, generally weak SKIN: Warm and dry. No rashes HEAD: Atruamtic, normocephalic. EYES: No scleral icterus. No injection or drainage. ENT: Moist mucous membranes, patent nares, no erythema of oropharynx. NECK: Supple, trachea midline. No JVD or lymphadenopathy. Normal thyroid. CARDIOVASCULAR: Regular rate and rhythm. No murmurs, gallops, or rubs. RESPIRATORY: Scattered congestion in anterior lung jacobson. No accessory muscle use. GASTROINTESTINAL: Abdomen soft, non-tender, nondistended, normal active bowel sounds MUSCULOSKELETAL: No cyanosis, or edema. NEURO: CN II-XII grossly intact, no focal deficits, no slurring of speech Results - Labs CBC & Chem 7: 12/31/17 05:54 12/31/17 05:54 Laboratory Results - last 24 hr 12/30/17 12/30/17 12/30/17 17:06 21:25 21:27 WBC RBC Hgb 8.3 L Hct 26.5 L MCV MCH MCHC RDW Plt Count MPV Sodium Potassium Chloride Carbon Dioxide Anion Gap BUN Creatinine Estimated GFR POC Glucose 116 H 127 H Random Glucose Calcium Phosphorus Random Vancomycin 12/30/17 12/31/17 12/31/17 23:27 03:29 05:54 WBC RBC Hgb Hct MCV MCH MCHC RDW Plt Count MPV Sodium 145 Potassium 4.2 D Chloride 105 Carbon Dioxide 31.2 Anion Gap 9 BUN 13 Creatinine 6.84 H Estimated GFR 10 L POC Glucose 131 H 99 Random Glucose 85 Calcium 8.0 L Phosphorus 2.7 Random Vancomycin 14.2 12/31/17 12/31/17 12/31/17 05:54 07:56 11:38 WBC 5.5 RBC 2.78 L Hgb 8.2 L Hct 24.6 L MCV 88.7 MCH 29.3 MCHC 33.1 RDW 17.3 H Plt Count 287 D MPV 9.5 Sodium Potassium Chloride Carbon Dioxide Anion Gap BUN Creatinine Estimated GFR POC Glucose 108 110 Random Glucose Calcium Phosphorus Random Vancomycin Assessment and Plan - Plan Altered mental status Acute metabolic encephalopathy combined with psychiatric history Patient has a history of bipolar disorder, Paranoid schizophrenia, Depression, insomnia, narcotic drug abuse Continue risperidone, trazodone, escitalopram, lamotrigine, gabapentin, tramadol Patient seems somewhat mentally clear today Severe sepsis, pneumonia, respiratory failure Lactic acidosis on admission Patient required norepinephrine drip and midodrine but has now stabilized Continue vancomycin and Zosyn Continue duo nebs as needed, continue incentive spirometry, continue aggressive pulmonary toileting h/o chronic diastolic heart failure At this time patient has a history of hypertension, orthostatic hypotension, peripheral vascular disease Recent echocardiogram showed ejection fraction of 60-65% Continue pravastatin Gastroesophageal reflux disease History of esophagitis and colonic polyps/hiatal hernia s/p EGD LA class D esophagitis and hiatal hernia. 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
[2017-12-31] MEDS: lamoTRIgine 100 MG Tablet PO SCH (21:57)
[2018-01-01] MEDS: Insulin NovoLIN Regular Correctional Sugar Inj SQ SCH ×6 (00:26→22:43)
[2018-01-01] MEDS: Piperacil/Tazo 2.25 GM Premix 50 ML IV.SIG SCH ×3 (04:30→21:34)
[2018-01-01] MEDS: Polyethylene Glycol 3350 17 GM Packet PO SCH (09:38)
[2018-01-01] MEDS: risperiDONE 0.5 MG ODT PO SCH ×2 (09:38→21:33)
[2018-01-01] MEDS: Senna/Docusate Sodium 8.6/50 MG Tablet PO SCH ×2 (09:38→21:33)
[2018-01-01] MEDS: Pantoprazole Inj 40 MG Vial IV.PUSH SCH ×2 (09:38→21:32)
[2018-01-01] MEDS: Escitalopram 10 MG Tablet PO SCH (09:38)
[2018-01-01] MEDS: Ascorbic Acid 500 MG Tablet PO SCH ×2 (09:39→21:33)
--- NOTE | 2018-01-01 14:39 | P.PNIM ---
Subjective Interval history: Patient is happy to have solid foods, but he has not been tolerating them well had a episode this morning where he almost choked on his food. Request was made to change to pured diet. Physical Exam Vital signs: Vital Signs 12/31/17 15:40 12/31/17 16:00 12/31/17 20:00 Temperature 98.4 F 97.5 F L Pulse Rate 78 82 Respiratory Rate 16 18 Blood Pressure 97/62 L 90/54 L Pulse Oximetry 100 97 94 L 01/01/18 00:00 01/01/18 04:00 01/01/18 08:00 Temperature 98.3 F 98.0 F 98.4 F Pulse Rate 73 71 84 Respiratory Rate 18 18 17 Blood Pressure 102/56 L 103/54 L 95/51 L Pulse Oximetry 95 97 95 01/01/18 10:55 01/01/18 12:00 Temperature 99.0 F Pulse Rate 85 Respiratory Rate 18 Blood Pressure 92/56 L Pulse Oximetry 95 95 Intake & Output 12/31/17 01/01/18 01/01/18 19:59 06:59 18:59 Intake Total Output Total Balance Intake: IV Zosyn 2.25 GM Premix 50 ML @ 100 mls/hr IV.SIG Q8H [facility]LAQUITA Rx#: [id number] Oral Output: Hemodialysis Amount Other: # Voids # Incontinent Bowel Movements Narrative: GENERAL: AAOx3, no acute distress, generally weak SKIN: Warm and dry. No rashes HEAD: Atruamtic, normocephalic. EYES: No scleral icterus. No injection or drainage. ENT: Moist mucous membranes, patent nares, no erythema of oropharynx. NECK: Supple, trachea midline. No JVD or lymphadenopathy. Normal thyroid. CARDIOVASCULAR: Regular rate and rhythm. No murmurs, gallops, or rubs. RESPIRATORY: Scattered congestion in anterior lung jacobson. No accessory muscle use. GASTROINTESTINAL: Abdomen soft, non-tender, nondistended, normal active bowel sounds MUSCULOSKELETAL: No cyanosis, or edema. NEURO: CN II-XII grossly intact, no focal deficits, no slurring of speech Results - Labs CBC & Chem 7: 12/31/17 05:54 12/31/17 05:54 Laboratory Results - last 24 hr 11/03/18 11/03/18 11/04/18 17:18 21:09 00:25 POC Glucose 152 H 126 H 108 01/01/18 01/01/18 01/01/18 05:45 08:20 13:01 POC Glucose 117 H 142 H 184 H Assessment and Plan - Plan Altered mental status Acute metabolic encephalopathy combined with psychiatric history Patient has a history of bipolar disorder, Paranoid schizophrenia, Depression, insomnia, narcotic drug abuse Continue risperidone, trazodone, escitalopram, lamotrigine, gabapentin, tramadol Patient has a psych affect but is otherwise mentally clear, conversive Severe sepsis, pneumonia, respiratory failure Lactic acidosis on admission Patient required norepinephrine drip and midodrine but has now stabilized Continue vancomycin and Zosyn Continue duo nebs as needed, continue incentive spirometry, continue aggressive pulmonary toileting h/o chronic diastolic heart failure At this time patient has a history of hypertension, orthostatic hypotension, peripheral vascular disease Recent echocardiogram showed ejection fraction of 60-65% Continue pravastatin Gastroesophageal reflux disease History of esophagitis and colonic polyps/hiatal hernia s/p EGD LA class D esophagitis and hiatal hernia. 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
--- NOTE | 2018-01-01 18:10 | P.PNNP ---
Subjective Interval history: Patient follows with Dr. Bell Physical Exam Vital signs: Vital Signs 12/31/17 20:00 01/01/18 00:00 01/01/18 04:00 Temperature 97.5 F L 98.3 F 98.0 F Pulse Rate 82 73 71 Respiratory Rate 18 18 18 Blood Pressure 90/54 L 102/56 L 103/54 L Pulse Oximetry 94 L 95 97 01/01/18 08:00 01/01/18 10:55 01/01/18 12:00 Temperature 98.4 F 99.0 F Pulse Rate 84 85 Respiratory Rate 17 18 Blood Pressure 95/51 L 92/56 L Pulse Oximetry 95 95 95 Intake & Output 12/31/17 01/01/18 01/01/18 19:59 06:59 18:59 Intake Total Output Total Balance Intake: IV Zosyn 2.25 GM Premix 50 ML @ 100 mls/hr IV.SIG Q8H [facility] Rx#: [id number] Oral Output: Hemodialysis Amount Other: # Voids # Incontinent Bowel Movements Narrative: General: NAD. NECK: No JVD, trachea midline. Respiratory: Breath sounds are diminished bilaterally. No accessory muscle use. Cardiovascular: Normal rate, regular rhythm. Abdomen: Soft, nontender, nondistended. No guarding. Extremities: Left groin AVF with + thrill. distal pulses 2+, left upper extremity contracture. Neuro: Alert and oriented. Follows commands. Normal speech. Assessment and Plan - Assessment (1) End stage renal disease on dialysis Code(s): N18.6 - End stage renal disease; Z99.2 - Dependence on renal dialysis Status: Acute Plan: End stage renal disease, HD on TTS. Continue cinacalcet 30 mg daily for secondary hyperparathyroidism Continue to hold Renvela, low PO4 levels. Epogen with dialysis HD done Tuesday 3 L follow-up with Dr. Bell (2) Aspiration pneumonia of both lungs Code(s): J69.0 - Pneumonitis due to inhalation of food and vomit Qualifiers: Aspiration pneumonia type: unspecified Lung location: lower lobe of lung Qualified Code(s): J69.0 - Pneumonitis due to inhalation of food and vomit Plan: On Zosyn and Vancomycin (3) Diabetes Code(s): E11.9 - Type 2 diabetes mellitus without complications Status: Chronic Qualifiers: Diabetes mellitus type: type 2 Chronic kidney disease stage: on chronic dialysis Plan: Well controlled, recommend to maintain blood sugars between 140 mg/dl to 180 mg/ dl (4) Syncope Code(s): R55 - Syncope and collapse Status: Acute Qualifiers: Syncope type: unspecified Qualified Code(s): R55 - Syncope and collapse (5) Nausea and vomiting Code(s): R11.2 - Nausea with vomiting, unspecified Status: Acute Qualifiers: Vomiting type: unspecified Vomiting Intractability: non-intractable Qualified Code(s): R11.2 - Nausea with vomiting, unspecified Plan: GI consulted, EGD done, biopsy pending Nausea and vomiting has improved. (6) Anemia Code(s): D64.9 - Anemia, unspecified Status: Acute Plan: HGB stable at 8.2, Epogen with dialysis (7) Hypotension Code(s): I95.9 - Hypotension, unspecified Status: Acute Plan: On midodrine and florinef. Has improved. - Plan Patient seen and examined, agree with above. BP is low, on pressors, Florinef is added. HD to continue TTS. For colonoscopy in AM.
[2018-01-01] MEDS: lamoTRIgine 100 MG Tablet PO SCH (21:33)
[2018-01-02] MEDS: Insulin NovoLIN Regular Correctional Sugar Inj SQ SCH ×8 (00:15→23:05)
[2018-01-02] MEDS: Piperacil/Tazo 2.25 GM Premix 50 ML IV.SIG SCH ×3 (04:44→20:54)
[2018-01-02] MEDS: risperiDONE 0.5 MG ODT PO SCH (08:34)
[2018-01-02] MEDS: Escitalopram 10 MG Tablet PO SCH (08:34)
[2018-01-02] MEDS: Senna/Docusate Sodium 8.6/50 MG Tablet PO SCH (08:34)
[2018-01-02] MEDS: Polyethylene Glycol 3350 17 GM Packet PO SCH (08:35)
[2018-01-02] MEDS: Ascorbic Acid 500 MG Tablet PO SCH (08:35)
[2018-01-02] MEDS: Pantoprazole Inj 40 MG Vial IV.PUSH SCH ×2 (08:35→20:57)
--- NOTE | 2018-01-02 10:21 | P.PNNP ---
Subjective Interval history: Seen in AM. Patient is alert. No acute complaints or events overnight. <Khalida Laura - Last Filed: 01/02/18 14:43> Physical Exam Vital signs: Vital Signs 01/01/18 10:55 01/01/18 12:00 01/01/18 16:00 Temperature 99.0 F 98.4 F Pulse Rate 85 73 Respiratory Rate 18 18 Blood Pressure 92/56 L 97/56 L Pulse Oximetry 95 95 95 01/01/18 16:35 01/01/18 20:00 01/01/18 20:10 Temperature 98 F Pulse Rate 81 80 83 Respiratory Rate 17 Blood Pressure 100/57 L Pulse Oximetry 95 01/02/18 00:00 01/02/18 00:03 01/02/18 02:10 Temperature 98.3 F Pulse Rate 99 H Respiratory Rate 17 18 Blood Pressure 115/61 Pulse Oximetry 85 L 98 01/02/18 04:00 01/02/18 08:00 Temperature 97.7 F 97.6 F Pulse Rate 72 66 Respiratory Rate 17 18 Blood Pressure 111/64 107/62 Pulse Oximetry 99 98 Intake & Output 01/01/18 01/02/18 01/02/18 18:59 06:59 18:59 Intake Total 290 / 290 280 / 280 Balance 290 / 290 280 / 280 Weight 79.2 kg Intake: IV 50 / 50 100 / 100 Zosyn 2.25 GM Premix 50 ML @ 50 / 50 100 / 100 100 mls/hr IV.SIG Q8H [facility] Rx#: [id number] Oral 240 / 240 180 / 180 Other: Date of Last Bowel Movement 12/30/17 # Incontinent Bowel Movements 1 Narrative: General: NAD. Alert. NECK: No JVD, trachea midline. Respiratory: Breath sounds are diminished bilaterally. No accessory muscle use. Cardiovascular: Normal rate, regular rhythm. Abdomen: Soft, nontender, nondistended. No guarding. Extremities: Left groin AVF with + thrill. distal pulses 2+, left upper extremity contracture. Neuro: Alert. Follows commands. Normal speech. <Khalida Laura - Last Filed: 01/02/18 14:43> Vital signs: Vital Signs 01/03/18 20:00 01/04/18 00:00 01/04/18 04:00 Temperature 98.2 F 97.9 F 97.6 F Pulse Rate 74 72 74 Respiratory Rate 17 16 16 Blood Pressure 94/67 L 93/60 L 94/67 L Pulse Oximetry 97 95 95 01/04/18 08:00 01/04/18 11:04 01/04/18 12:00 Temperature 97.8 F 98.2 F Pulse Rate 74 80 Respiratory Rate 18 18 Blood Pressure 93/52 L 107/61 Pulse Oximetry 98 98 96 01/04/18 16:00 Temperature 99.0 F Pulse Rate 71 Respiratory Rate 17 Blood Pressure 95/51 L Pulse Oximetry 96 Intake & Output 01/03/18 01/04/18 01/04/18 18:59 06:59 18:59 Intake Total 312.5 / 312.5 105 / 105 1567 / 1567 Output Total 2500 / 2500 0 / 0 Balance -2187.5 / -2187.5 105 / 105 1567 / 1567 Weight 73.6 kg Intake: IV 312.5 / 312.5 105 / 105 1055 / 1055 D5W/1/2 NS Inj 1,000 ML @ 42 1000 / 1000 mls/hr IV.CONT .[id number] [facility] Rx# :[id number] Zosyn 2.25 GM Premix 50 ML @ 50 / 50 105 / 105 55 / 55 100 mls/hr IV.SIG Q8H [facility] Rx#: [id number] Vancomycin Inj 1,250 MG In NS 262.5 / 262.5 Inj 250 ML @ 250 mls/hr IV.SIG WITH DIALYSIS [facility] Rx#:[id number] Oral 0 / 0 0 / 0 Other 512 / 512 Output: Urine 0 / 0 Hemodialysis Amount 2500 / 2500 Other: # Voids 0 Date of Last Bowel Movement 01/03/18 01/03/18 # Bowel Movements 1 0 <Kaur Bell Q - Last Filed: 01/04/18 18:42> Assessment and Plan - Assessment (1) End stage renal disease on dialysis Code(s): N18.6 - End stage renal disease; Z99.2 - Dependence on renal dialysis Status: Acute Plan: End stage renal disease, HD on TTS. Continue cinacalcet 30 mg daily for secondary hyperparathyroidism Continue to hold Renvela, low PO4 levels, recheck in AM Epogen with dialysis HD planned for tomorrow. (2) Aspiration pneumonia of both lungs Code(s): J69.0 - Pneumonitis due to inhalation of food and vomit Qualifiers: Aspiration pneumonia type: unspecified Lung location: lower lobe of lung Qualified Code(s): J69.0 - Pneumonitis due to inhalation of food and vomit Plan: On antibiotics (3) Diabetes Code(s): E11.9 - Type 2 diabetes mellitus without complications Status: Chronic Qualifiers: Diabetes mellitus type: type 2 Chronic kidney disease stage: on chronic dialysis Plan: Well controlled, recommend to maintain blood sugars between 140 mg/dl to 180 mg/ dl (4) Syncope Code(s): R55 - Syncope and collapse Status: Acute Qualifiers: Syncope type: unspecified Qualified Code(s): R55 - Syncope and collapse (5) Nausea and vomiting Code(s): R11.2 - Nausea with vomiting, unspecified Status: Acute Qualifiers: Vomiting type: unspecified Vomiting Intractability: non-intractable Qualified Code(s): R11.2 - Nausea with vomiting, unspecified Plan: GI consulted, EGD done, biopsy pending Nausea and vomiting has improved. (6) Anemia Code(s): D64.9 - Anemia, unspecified Status: Acute Plan: HGB stable, Epogen with dialysis (7) Hypotension Code(s): I95.9 - Hypotension, unspecified Status: Acute Plan: On midodrine and florinef. Has improved. <Khalida Laura - Last Filed: 01/02/18 14:43> - Assessment (1) End stage renal disease on dialysis Code(s): N18.6 - End stage renal disease; Z99.2 - Dependence on renal dialysis Status: Acute Plan: Patient seen and examined, agree with above. Patient is NPO as he failed swallow test. HD will be in AM. (2) Aspiration pneumonia of both lungs Code(s): J69.0 - Pneumonitis due to inhalation of food and vomit Qualifiers: Aspiration pneumonia type: unspecified Lung location: lower lobe of lung Qualified Code(s): J69.0 - Pneumonitis due to inhalation of food and vomit (3) Diabetes Code(s): E11.9 - Type 2 diabetes mellitus without complications Status: Chronic Qualifiers: Diabetes mellitus type: type 2 Chronic kidney disease stage: on chronic dialysis (4) Syncope Code(s): R55 - Syncope and collapse Status: Acute Qualifiers: Syncope type: unspecified Qualified Code(s): R55 - Syncope and collapse (5) Nausea and vomiting Code(s): R11.2 - Nausea with vomiting, unspecified Status: Acute Qualifiers: Vomiting type: unspecified Vomiting Intractability: non-intractable Qualified Code(s): R11.2 - Nausea with vomiting, unspecified (6) Anemia Code(s): D64.9 - Anemia, unspecified Status: Acute (7) Hypotension Code(s): I95.9 - Hypotension, unspecified Status: Acute <Lizeth Bell - Last Filed: 01/04/18 18:42>
--- NOTE | 2018-01-02 17:14 | P.PNIM ---
Subjective Interval history: Staff reports patient has been choking on meals and liquids. Swallow evaluation reveals that he is unable to tolerate p.o. at this time. Patient was changed to n.p.o. Physical Exam Vital signs: Vital Signs 01/01/18 20:00 01/01/18 20:10 01/02/18 00:00 Temperature 98 F 98.3 F Pulse Rate 80 83 99 H Respiratory Rate 17 17 Blood Pressure 100/57 L 115/61 Pulse Oximetry 95 85 L 01/02/18 00:03 01/02/18 02:10 01/02/18 04:00 Temperature 97.7 F Pulse Rate 72 Respiratory Rate 18 17 Blood Pressure 111/64 Pulse Oximetry 98 99 01/02/18 08:00 01/02/18 10:40 01/02/18 12:00 Temperature 97.6 F 97.7 F Pulse Rate 62 64 Respiratory Rate 18 18 Blood Pressure 107/62 110/66 Pulse Oximetry 98 98 97 01/02/18 16:00 Temperature Pulse Rate Respiratory Rate 16 Blood Pressure Pulse Oximetry Intake & Output 01/01/18 01/02/18 01/02/18 18:59 06:59 18:59 Intake Total 290 / 290 280 / 280 50 / 50 Balance 290 / 290 280 / 280 50 / 50 Weight 79.2 kg Intake: IV 50 / 50 100 / 100 50 / 50 Zosyn 2.25 GM Premix 50 ML @ 50 / 50 100 / 100 50 / 50 100 mls/hr IV.SIG Q8H [facility] Rx#: [id number] Oral 240 / 240 180 / 180 Other: Date of Last Bowel Movement 12/30/17 # Incontinent Bowel Movements 1 Narrative: GENERAL: AAOx3, no acute distress, generally weak SKIN: Warm and dry. No rashes HEAD: Atruamtic, normocephalic. EYES: No scleral icterus. No injection or drainage. ENT: Moist mucous membranes, patent nares, no erythema of oropharynx. NECK: Supple, trachea midline. No JVD or lymphadenopathy. Normal thyroid. CARDIOVASCULAR: Regular rate and rhythm. No murmurs, gallops, or rubs. RESPIRATORY: Scattered congestion in anterior lung jacobson. No accessory muscle use. GASTROINTESTINAL: Abdomen soft, non-tender, nondistended, normal active bowel sounds MUSCULOSKELETAL: No cyanosis, or edema. NEURO: CN II-XII grossly intact, no focal deficits, no slurring of speech Results - Labs CBC & Chem 7: 12/31/17 05:54 12/31/17 05:54 Laboratory Results - last 24 hr 01/01/18 01/01/18 01/02/18 17:37 21:31 04:45 POC Glucose 142 H 210 H Random Vancomycin 19.4 01/02/18 01/02/18 01/02/18 05:49 07:26 12:58 POC Glucose 90 94 153 H Random Vancomycin 01/02/18 16:52 POC Glucose 111 H Random Vancomycin Assessment and Plan - Plan Altered mental status Acute metabolic encephalopathy combined with psychiatric history Patient has a history of bipolar disorder, Paranoid schizophrenia, Depression, insomnia, narcotic drug abuse Continue risperidone, trazodone, escitalopram, lamotrigine, gabapentin, tramadol Patient has a psych affect but is otherwise mentally clear, conversive Severe sepsis, pneumonia, respiratory failure Lactic acidosis on admission Patient required norepinephrine drip and midodrine but has now stabilized Continue vancomycin and Zosyn Continue duo nebs as needed, continue incentive spirometry, continue aggressive pulmonary toileting Dysphagia Unable to swallow food or drink without cough/choke NPO for now, repeat evaluation at later date Convert necessary meds to IV h/o chronic diastolic heart failure At this time patient has a history of hypertension, orthostatic hypotension, peripheral vascular disease Recent echocardiogram showed ejection fraction of 60-65% Continue pravastatin Gastroesophageal reflux disease History of esophagitis and colonic polyps/hiatal hernia s/p EGD [place] class D esophagitis and hiatal hernia. 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
[2018-01-03] MEDS: Piperacil/Tazo 2.25 GM Premix 50 ML IV.SIG SCH ×3 (03:07→20:20)
[2018-01-03] MEDS: Insulin NovoLIN Regular Correctional Sugar Inj SQ SCH ×6 (03:10→23:07)
[2018-01-03] MEDS: Pantoprazole Inj 40 MG Vial IV.PUSH SCH ×2 (08:42→20:22)
--- NOTE | 2018-01-03 10:02 | P.PNNP ---
Subjective Interval history: Resting comfortably this morning. NPO secondary to failing swallow exam. Hemodialysis planned for today. <Khalida Laura - Last Filed: 01/03/18 11:12> Physical Exam Vital signs: Vital Signs 01/02/18 10:40 01/02/18 12:00 01/02/18 16:00 Temperature 97.7 F 97.9 F Pulse Rate 64 70 Respiratory Rate 18 18 Blood Pressure 110/66 112/64 Pulse Oximetry 98 97 98 01/02/18 20:00 01/02/18 23:50 01/03/18 00:00 Temperature 97.9 F 97.7 F Pulse Rate 67 68 68 Respiratory Rate 18 18 Blood Pressure 113/58 L 125/70 Pulse Oximetry 91 L 91 L 01/03/18 04:00 01/03/18 08:00 Temperature 98 F 97.2 F L Pulse Rate 69 73 Respiratory Rate 18 19 Blood Pressure 100/60 117/64 Pulse Oximetry 98 96 Intake & Output 01/02/18 01/03/18 01/03/18 18:59 06:59 18:59 Intake Total 50 / 50 105 / 105 Balance 50 / 50 105 / 105 Intake: IV 50 / 50 105 / 105 Zosyn 2.25 GM Premix 50 ML @ 50 / 50 105 / 105 100 mls/hr IV.SIG Q8H [facility] Rx#: [id number] Oral 0 / 0 0 / 0 Other: # Voids 1 # Incontinent Voids 2 # Bowel Movements 0 Narrative: GENERAL: AAOx3, no acute distress, generally weak SKIN: Warm and dry. No rashes NECK: Supple, trachea midline. No JVD. CARDIOVASCULAR: Regular rate and rhythm. No murmurs, gallops, or rubs. RESPIRATORY: Scattered congestion in anterior lung jacobson. No accessory muscle use. GASTROINTESTINAL: Abdomen soft, non-tender, nondistended, normal active bowel sounds MUSCULOSKELETAL: No cyanosis, or edema. Contracture present left upper extremity <Khalida Laura - Last Filed: 01/03/18 11:12> Vital signs: Vital Signs 01/05/18 00:00 01/05/18 04:00 01/05/18 08:00 Temperature 98.3 F 98.3 F 98.4 F Pulse Rate 76 73 75 Respiratory Rate 18 18 18 Blood Pressure 108/63 99/56 L 141/75 H Pulse Oximetry 94 L 94 L 97 01/05/18 10:58 01/05/18 12:00 01/05/18 16:00 Temperature 98.8 F Pulse Rate 71 73 Respiratory Rate 18 Blood Pressure 105/63 Pulse Oximetry 97 93 L 01/05/18 20:00 Temperature 98.6 F Pulse Rate 88 Respiratory Rate 20 Blood Pressure 96/71 L Pulse Oximetry 92 L Intake & Output 01/05/18 01/05/18 01/06/18 06:59 18:59 06:59 Intake Total 100 / 100 1500 / 1500 Output Total 1999 Balance 100 / 100 -500 / -500 Weight 76.3 kg Intake: IV 100 / 100 1500 / 1500 D5W/1/2 NS Inj 1,000 ML @ 42 1000 / 1000 mls/hr IV.CONT .[id number] [facility] Rx# :[id number] Zosyn 2.25 GM Premix 50 ML @ 100 / 100 50 / 50 100 mls/hr IV.SIG Q8H [facility] Rx#: [id number] KCl 20 mEq Premix Inj 20 meq In 200 / 200 100 ml @ 50 mls/hr IV.SIG Q2H [facility] Rx#:[id number] Vancomycin Inj 1,000 MG In NS 250 / 250 Inj 250 ML @ 250 mls/hr IV.SIG WITH DIALYSIS [facility] Rx#:[id number] Output: Hemodialysis Amount 1999 Other: # Voids 0 Date of Last Bowel Movement 01/05/18 01/05/18 # Bowel Movements 0 # Incontinent Bowel Movements 2 <Lizeth Bell - Last Filed: 01/05/18 21:51> Assessment and Plan - Assessment (1) End stage renal disease on dialysis Code(s): N18.6 - End stage renal disease; Z99.2 - Dependence on renal dialysis Status: Acute Plan: End stage renal disease, HD on TTS. Continue cinacalcet 30 mg daily for secondary hyperparathyroidism Continue to hold Renvela, NPO Epogen with dialysis HD planned for today (2) Aspiration pneumonia of both lungs Code(s): J69.0 - Pneumonitis due to inhalation of food and vomit Qualifiers: Aspiration pneumonia type: unspecified Lung location: lower lobe of lung Qualified Code(s): J69.0 - Pneumonitis due to inhalation of food and vomit Plan: On antibiotics, failed swallow exam. NPO will order IVF (3) Diabetes Code(s): E11.9 - Type 2 diabetes mellitus without complications Status: Chronic Qualifiers: Diabetes mellitus type: type 2 Chronic kidney disease stage: on chronic dialysis Plan: Well controlled, recommend to maintain blood sugars between 140 mg/dl to 180 mg/ dl (4) Syncope Code(s): R55 - Syncope and collapse Status: Acute Qualifiers: Syncope type: unspecified Qualified Code(s): R55 - Syncope and collapse (5) Nausea and vomiting Code(s): R11.2 - Nausea with vomiting, unspecified Status: Acute Qualifiers: Vomiting type: unspecified Vomiting Intractability: non-intractable Qualified Code(s): R11.2 - Nausea with vomiting, unspecified Plan: GI consulted, EGD done, biopsy pending Nausea and vomiting has improved. (6) Anemia Code(s): D64.9 - Anemia, unspecified Status: Acute Plan: HGB stable, Epogen with dialysis (7) Hypotension Code(s): I95.9 - Hypotension, unspecified Status: Acute Plan: On midodrine and florinef. stable - Plan Patient seen and examined, agree with above. BP is low, on pressors, Florinef is added. HD to continue TTS. For colonoscopy in AM. <Khalida Laura - Last Filed: 01/03/18 11:12> - Assessment (1) End stage renal disease on dialysis Code(s): N18.6 - End stage renal disease; Z99.2 - Dependence on renal dialysis Status: Acute Plan: Patient seen and examined, agree with above. HD today, remain NPO for not passing swallowing. (2) Aspiration pneumonia of both lungs Code(s): J69.0 - Pneumonitis due to inhalation of food and vomit Qualifiers: Aspiration pneumonia type: unspecified Lung location: lower lobe of lung Qualified Code(s): J69.0 - Pneumonitis due to inhalation of food and vomit (3) Diabetes Code(s): E11.9 - Type 2 diabetes mellitus without complications Status: Chronic Qualifiers: Diabetes mellitus type: type 2 Chronic kidney disease stage: on chronic dialysis (4) Syncope Code(s): R55 - Syncope and collapse Status: Acute Qualifiers: Syncope type: unspecified Qualified Code(s): R55 - Syncope and collapse (5) Anemia Code(s): D64.9 - Anemia, unspecified Status: Acute <Lizeth Bell - Last Filed: 01/05/18 21:51>
[2018-01-03] MEDS: Vancomycin Inj 1,250 MG in Sodium Chlor 0.9% Inj 250 ML IV.SIG SCH (12:31)
[2018-01-03] MEDS: Dextrose 5%/NaCl 0.45% Inj 1,000 ML IV.CONT SCH (14:00)
[2018-01-03 16:34] LABS: Baso # (Auto) 0.1 th/mm3 (0.0-0.2); Baso % (Auto) 0.8 % (0.0-2.0); Eos # (Auto) 0.1 th/mm3 (0.0-0.4); Eos % (Auto) 1.3 % (0.0-4.0); Hemoglobin 8.7 gm/dL (13.0-17.0); Lymph # (Auto) 1.1 th/mm3 (1.0-4.8); Lymph % (Auto) 14.3 % (9.0-44.0); Mean Corpuscular HGB Conc 32.3 % (32.0-36.0); Mean Corpuscular Hemoglobin 29.2 pg (27.0-34.0); Mean Corpuscular Volume 90.5 fL (80.0-100.0); Mean Platelet Volume 8.3 fL (7.0-11.0); Mono # (Auto) 0.5 th/mm3 (0.0-0.9); Mono % (Auto) 6.3 % (0.0-8.0); Neut % (Auto) 77.3 % (16.0-70.0); Platelet Count 312 th/mm3 (150-450); Red Blood Count 2.99 mil/mm3 (4.50-5.90); Red Cell Distribution Width 17.8 % (11.6-17.2); White Blood Count 7.7 th/mm3 (4.0-11.0)
[2018-01-03 17:19] LABS: Albumin 3.2 g/dL (3.4-5.0); Calcium 8.5 mg/dL (8.5-10.1); Carbon Dioxide 28.5 meq/L (21.0-32.0); Phosphorus 2.7 mg/dL (2.5-4.9); Potassium 3.2 meq/L (3.5-5.1); Vancomycin,Random 27.4 Comment
--- NOTE | 2018-01-03 18:06 | P.PNIM ---
Subjective Interval history: Patient is resting comfortably, but wishes he could eat solid food. Physical Exam Vital signs: Vital Signs 01/02/18 20:00 01/02/18 23:50 01/03/18 00:00 Temperature 97.9 F 97.7 F Pulse Rate 67 68 68 Respiratory Rate 18 18 Blood Pressure 113/58 L 125/70 Pulse Oximetry 91 L 91 L 01/03/18 04:00 01/03/18 08:00 01/03/18 10:50 Temperature 98 F 97.2 F L Pulse Rate 69 69 Respiratory Rate 18 19 Blood Pressure 100/60 117/64 Pulse Oximetry 98 96 95 01/03/18 12:00 01/03/18 14:46 01/03/18 16:00 Temperature 97.1 F L 98.6 F Pulse Rate 84 72 80 Respiratory Rate 18 18 Blood Pressure 118/62 111/61 Pulse Oximetry 97 100 Intake & Output 01/02/18 01/03/18 01/03/18 18:59 06:59 18:59 Intake Total 50 / 50 105 / 105 312.5 / 312.5 Output Total 2500 / 2500 Balance 50 / 50 105 / 105 -2187.5 / -2187.5 Intake: IV 50 / 50 105 / 105 312.5 / 312.5 Zosyn 2.25 GM Premix 50 ML @ 50 / 50 105 / 105 50 / 50 100 mls/hr IV.SIG Q8H [facility] Rx#: [id number] Vancomycin Inj 1,250 MG In NS 262.5 / 262.5 Inj 250 ML @ 250 mls/hr IV.SIG WITH DIALYSIS [facility] Rx#:[id number] Oral 0 / 0 0 / 0 Output: Hemodialysis Amount 2500 / 2500 Other: # Voids 1 # Incontinent Voids 2 # Bowel Movements 0 Narrative: GENERAL: AAOx3, no acute distress, generally weak SKIN: Warm and dry. No rashes HEAD: Atruamtic, normocephalic. EYES: No scleral icterus. No injection or drainage. ENT: Moist mucous membranes, patent nares, no erythema of oropharynx. NECK: Supple, trachea midline. No JVD or lymphadenopathy. Normal thyroid. CARDIOVASCULAR: Regular rate and rhythm. No murmurs, gallops, or rubs. RESPIRATORY: Scattered congestion in anterior lung jacobson. No accessory muscle use. GASTROINTESTINAL: Abdomen soft, non-tender, nondistended, normal active bowel sounds MUSCULOSKELETAL: No cyanosis, or edema. NEURO: CN II-XII grossly intact, no focal deficits, no slurring of speech Results - Labs CBC & Chem 7: 01/03/18 15:39 01/03/18 15:39 Laboratory Results - last 24 hr 01/02/18 01/02/18 01/03/18 19:43 23:00 03:06 WBC RBC Hgb Hct MCV MCH MCHC RDW Plt Count MPV Neut % (Auto) Lymph % (Auto) [place] % (Auto) Eos % (Auto) Baso % (Auto) Neut # (Auto) Lymph # (Auto) [place] # (Auto) Eos # (Auto) Baso # (Auto) WBC Differential Differential Comment Sodium Potassium Chloride Carbon Dioxide Anion Gap BUN Creatinine Estimated GFR POC Glucose 119 H 154 H 137 H Random Glucose Calcium Phosphorus Albumin Random Vancomycin 01/03/18 01/03/18 01/03/18 07:49 12:01 15:39 WBC RBC Hgb Hct MCV MCH MCHC RDW Plt Count MPV Neut % (Auto) Lymph % (Auto) [place] % (Auto) Eos % (Auto) Baso % (Auto) Neut # (Auto) Lymph # (Auto) [place] # (Auto) Eos # (Auto) Baso # (Auto) WBC Differential Differential Comment Sodium 141 Potassium 3.2 L Chloride 97 L Carbon Dioxide 28.5 Anion Gap 16 H BUN 7 Creatinine 4.42 H Estimated GFR 16 L POC Glucose 165 H 112 H Random Glucose 142 H Calcium 8.5 Phosphorus 2.7 Albumin 3.2 L Random Vancomycin 27.4 01/03/18 01/03/18 15:39 16:39 WBC 7.7 RBC 2.99 L Hgb 8.7 L Hct 27.0 L MCV 90.5 MCH 29.2 MCHC 32.3 RDW 17.8 H Plt Count 312 MPV 8.3 Neut % (Auto) 77.3 H Lymph % (Auto) 14.3 [place] % (Auto) 6.3 Eos % (Auto) 1.3 Baso % (Auto) 0.8 Neut # (Auto) 6.0 Lymph # (Auto) 1.1 [place] # (Auto) 0.5 Eos # (Auto) 0.1 Baso # (Auto) 0.1 WBC Differential . Differential Comment Auto diff final Sodium Potassium Chloride Carbon Dioxide Anion Gap BUN Creatinine Estimated GFR POC Glucose 150 H Random Glucose Calcium Phosphorus Albumin Random Vancomycin Assessment and Plan - Plan 01/03/18 = patient made n.p.o. yesterday due to failing swallow evaluation, undergoing dialysis today, continuing treatment for pneumonia and sepsis Altered mental status Acute metabolic encephalopathy combined with psychiatric history Patient has a history of bipolar disorder, Paranoid schizophrenia, Depression, insomnia, narcotic drug abuse Continue risperidone, trazodone, escitalopram, lamotrigine, gabapentin, tramadol Patient has a psych affect but is otherwise mentally clear, conversive Severe sepsis, pneumonia, respiratory failure Lactic acidosis on admission Patient required norepinephrine drip and midodrine but has now stabilized Continue vancomycin and Zosyn Continue duo nebs as needed, continue incentive spirometry, continue aggressive pulmonary toileting Dysphagia Unable to swallow food or drink without cough/choke NPO for now, repeat evaluation at later date Convert necessary meds to IV h/o chronic diastolic heart failure At this time patient has a history of hypertension, orthostatic hypotension, peripheral vascular disease Recent echocardiogram showed ejection fraction of 60-65% Continue pravastatin Gastroesophageal reflux disease History of esophagitis and colonic polyps/hiatal hernia s/p EGD [place] class D esophagitis and hiatal hernia. 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
[2018-01-04] MEDS: Piperacil/Tazo 2.25 GM Premix 50 ML IV.SIG SCH ×3 (03:30→21:36)
[2018-01-04] MEDS: Insulin NovoLIN Regular Correctional Sugar Inj SQ SCH ×4 (03:33→21:36)
[2018-01-04] MEDS: Pantoprazole Inj 40 MG Vial IV.PUSH SCH ×2 (08:59→21:36)
--- NOTE | 2018-01-04 15:02 | P.PNNP ---
Subjective Interval history: Seen in AM. Hemodialysis yesterday tolerated well. Remains NPO secondary to dysphagia. <Khalida Laura - Last Filed: 01/04/18 14:57> Physical Exam Vital signs: Vital Signs 01/03/18 16:00 01/03/18 20:00 01/04/18 00:00 Temperature 98.6 F 98.2 F 97.9 F Pulse Rate 80 74 72 Respiratory Rate 18 17 16 Blood Pressure 111/61 94/67 L 93/60 L Pulse Oximetry 100 97 95 01/04/18 04:00 01/04/18 08:00 01/04/18 11:04 Temperature 97.6 F 97.8 F Pulse Rate 74 74 Respiratory Rate 16 18 Blood Pressure 94/67 L 93/52 L Pulse Oximetry 95 98 98 01/04/18 12:00 Temperature 98.2 F Pulse Rate 74 Respiratory Rate 18 Blood Pressure 107/61 Pulse Oximetry 96 Intake & Output 01/03/18 01/04/18 01/04/18 18:59 06:59 18:59 Intake Total 312.5 / 312.5 105 / 105 55 / 55 Output Total 2500 / 2500 0 / 0 Balance -2187.5 / -2187.5 105 / 105 55 / 55 Weight 73.6 kg Intake: IV 312.5 / 312.5 105 / 105 55 / 55 Zosyn 2.25 GM Premix 50 ML @ 50 / 50 105 / 105 55 / 55 100 mls/hr IV.SIG Q8H [facility] Rx#: [id number] Vancomycin Inj 1,250 MG In NS 262.5 / 262.5 Inj 250 ML @ 250 mls/hr IV.SIG WITH DIALYSIS [facility] Rx#:[id number] Oral 0 / 0 0 / 0 Output: Urine 0 / 0 Hemodialysis Amount 2500 / 2500 Other: # Voids 0 Date of Last Bowel Movement 01/03/18 # Bowel Movements 1 0 Narrative: GENERAL: AAOx3, no acute distress, generally weak SKIN: Warm and dry. No rashes NECK: Supple, trachea midline. No JVD. CARDIOVASCULAR: Regular rate and rhythm. No murmurs, gallops, or rubs. AVF in left upper leg with positive thrill and bruit. RESPIRATORY: Scattered congestion in anterior lung jacobson. No accessory muscle use. GASTROINTESTINAL: Abdomen soft, non-tender, nondistended, normal active bowel sounds MUSCULOSKELETAL: No cyanosis, or edema. Contracture present left upper extremity <Khalida Laura - Last Filed: 01/04/18 14:57> Vital signs: Vital Signs 01/05/18 20:00 01/06/18 00:00 01/06/18 04:00 Temperature 98.6 F 98.2 F 97.9 F Pulse Rate 77 80 74 Respiratory Rate 20 20 20 Blood Pressure 96/71 L 101/64 97/63 L Pulse Oximetry 92 L 94 L 95 01/06/18 07:28 01/06/18 08:00 01/06/18 11:55 Temperature 98.2 F 98.6 F Pulse Rate 79 76 80 Respiratory Rate 15 17 Blood Pressure 113/71 90/55 L Pulse Oximetry 97 01/06/18 12:00 01/06/18 14:40 Temperature Pulse Rate 77 Respiratory Rate Blood Pressure Pulse Oximetry 100 Intake & Output 01/05/18 01/06/18 01/06/18 18:59 06:59 18:59 Intake Total 1500 / 1500 100 / 100 1050 / 1050 Output Total 1999 Balance -500 / -500 100 / 100 1050 / 1050 Intake: IV 1500 / 1500 100 / 100 1050 / 1050 D5W/1/2 NS Inj 1,000 ML @ 42 1000 / 1000 1000 / 1000 mls/hr IV.CONT .[id number] [facility] Rx# :[id number] Zosyn 2.25 GM Premix 50 ML @ 50 / 50 100 / 100 50 / 50 100 mls/hr IV.SIG Q8H [facility] Rx#: [id number] KCl 20 mEq Premix Inj 20 meq In 200 / 200 100 ml @ 50 mls/hr IV.SIG Q2H [facility] Rx#:[id number] Vancomycin Inj 1,000 MG In NS 250 / 250 Inj 250 ML @ 250 mls/hr IV.SIG WITH DIALYSIS [facility] Rx#:[id number] Output: Hemodialysis Amount 1999 Other: # Voids 0 2 Date of Last Bowel Movement 01/05/18 01/06/18 01/06/18 # Bowel Movements 0 # Incontinent Bowel Movements 3 <Lizeth Bell - Last Filed: 01/06/18 16:40> Assessment and Plan - Assessment (1) End stage renal disease on dialysis Code(s): N18.6 - End stage renal disease; Z99.2 - Dependence on renal dialysis Status: Acute Plan: End stage renal disease, HD on TTS. Continue cinacalcet, renvela for secondary hyperparathyroidism, currently on hold as NPO Epogen with dialysis HD yesterday with removal fo 2.5 liters. HD planned for tomorrow (2) Aspiration pneumonia of both lungs Code(s): J69.0 - Pneumonitis due to inhalation of food and vomit Qualifiers: Aspiration pneumonia type: unspecified Lung location: lower lobe of lung Qualified Code(s): J69.0 - Pneumonitis due to inhalation of food and vomit Plan: On antibiotics, failed swallow exam. NPO, IVF infusing (3) Diabetes Code(s): E11.9 - Type 2 diabetes mellitus without complications Status: Chronic Qualifiers: Diabetes mellitus type: type 2 Chronic kidney disease stage: on chronic dialysis Plan: Well controlled, recommend to maintain blood sugars between 140 mg/dl to 180 mg/ dl (4) Syncope Code(s): R55 - Syncope and collapse Status: Acute Qualifiers: Syncope type: unspecified Qualified Code(s): R55 - Syncope and collapse (5) Nausea and vomiting Code(s): R11.2 - Nausea with vomiting, unspecified Status: Acute Qualifiers: Vomiting type: unspecified Vomiting Intractability: non-intractable Qualified Code(s): R11.2 - Nausea with vomiting, unspecified Plan: GI consulted, EGD done Nausea and vomiting has improved. (6) Anemia Code(s): D64.9 - Anemia, unspecified Status: Acute Plan: HGB stable, Epogen with dialysis (7) Hypotension Code(s): I95.9 - Hypotension, unspecified Status: Acute Plan: On midodrine and florinef. stable <Khalida Laura - Last Filed: 01/04/18 14:57> - Assessment (1) End stage renal disease on dialysis Code(s): N18.6 - End stage renal disease; Z99.2 - Dependence on renal dialysis Status: Acute Plan: Patient seen and examine, agree with above. HD will be in AM. Will need GT, remain NPO. (2) Aspiration pneumonia of both lungs Code(s): J69.0 - Pneumonitis due to inhalation of food and vomit Qualifiers: Aspiration pneumonia type: unspecified Lung location: lower lobe of lung Qualified Code(s): J69.0 - Pneumonitis due to inhalation of food and vomit (3) Diabetes Code(s): E11.9 - Type 2 diabetes mellitus without complications Status: Chronic Qualifiers: Diabetes mellitus type: type 2 Chronic kidney disease stage: on chronic dialysis (4) Syncope Code(s): R55 - Syncope and collapse Status: Acute Qualifiers: Syncope type: unspecified Qualified Code(s): R55 - Syncope and collapse (5) Anemia Code(s): D64.9 - Anemia, unspecified Status: Acute <Lizeth Bell - Last Filed: 01/06/18 16:40>
--- NOTE | 2018-01-04 16:06 | P.PNIM ---
Subjective Interval history: 62-year-old male who seems calm and comfortable today but complains of significant thirst and hunger. I explained to him that he is n.p.o. status due to high risk of choking. He is on maintenance IV fluids but his mouth gets very dry. Physical Exam Vital signs: Vital Signs 01/03/18 20:00 01/04/18 00:00 01/04/18 04:00 Temperature 98.2 F 97.9 F 97.6 F Pulse Rate 74 72 74 Respiratory Rate 17 16 16 Blood Pressure 94/67 L 93/60 L 94/67 L Pulse Oximetry 97 95 95 01/04/18 08:00 01/04/18 11:04 01/04/18 12:00 Temperature 97.8 F 98.2 F Pulse Rate 74 74 Respiratory Rate 18 18 Blood Pressure 93/52 L 107/61 Pulse Oximetry 98 98 96 Intake & Output 01/03/18 01/04/18 01/04/18 18:59 06:59 18:59 Intake Total 312.5 / 312.5 105 / 105 55 / 55 Output Total 2500 / 2500 0 / 0 Balance -2187.5 / -2187.5 105 / 105 55 / 55 Weight 73.6 kg Intake: IV 312.5 / 312.5 105 / 105 55 / 55 Zosyn 2.25 GM Premix 50 ML @ 50 / 50 105 / 105 55 / 55 100 mls/hr IV.SIG Q8H [facility] Rx#: [id number] Vancomycin Inj 1,250 MG In NS 262.5 / 262.5 Inj 250 ML @ 250 mls/hr IV.SIG WITH DIALYSIS [facility] Rx#:[id number] Oral 0 / 0 0 / 0 Output: Urine 0 / 0 Hemodialysis Amount 2500 / 2500 Other: # Voids 0 Date of Last Bowel Movement 01/03/18 # Bowel Movements 1 0 Narrative: GENERAL: AAOx2, no acute distress, abnormal affect due to psych history SKIN: Warm and dry. No rashes, graft scar on left thigh HEAD: Atruamtic, normocephalic. EYES: No scleral icterus. No injection or drainage. ENT: Moist mucous membranes, patent nares, no erythema of oropharynx. NECK: Supple, trachea midline. No JVD or lymphadenopathy. Normal thyroid. CARDIOVASCULAR: Regular rate and rhythm. No murmurs, gallops, or rubs. RESPIRATORY: Breath sounds clear equal bilaterally. No crackles or wheezes. No accessory muscle use. GASTROINTESTINAL: Abdomen soft, non-tender, nondistended, normal active bowel sounds MUSCULOSKELETAL: No cyanosis, or edema. NEURO: CN II-XII grossly intact, no focal deficits, no slurring of speech Results - Labs CBC & Chem 7: 01/03/18 15:39 01/03/18 15:39 Laboratory Results - last 24 hr 01/03/18 01/03/18 01/03/18 15:39 15:39 16:39 WBC 7.7 RBC 2.99 L Hgb 8.7 L Hct 27.0 L MCV 90.5 MCH 29.2 MCHC 32.3 RDW 17.8 H Plt Count 312 MPV 8.3 Neut % (Auto) 77.3 H Lymph % (Auto) 14.3 [place] % (Auto) 6.3 Eos % (Auto) 1.3 Baso % (Auto) 0.8 Neut # (Auto) 6.0 Lymph # (Auto) 1.1 [place] # (Auto) 0.5 Eos # (Auto) 0.1 Baso # (Auto) 0.1 WBC Differential . Differential Comment Auto diff final Sodium 141 Potassium 3.2 L Chloride 97 L Carbon Dioxide 28.5 Anion Gap 16 H BUN 7 Creatinine 4.42 H Estimated GFR 16 L POC Glucose 150 H Random Glucose 142 H Calcium 8.5 Phosphorus 2.7 Albumin 3.2 L Random Vancomycin 27.4 01/03/18 01/03/18 01/04/18 19:38 23:07 03:30 WBC RBC Hgb Hct MCV MCH MCHC RDW Plt Count MPV Neut % (Auto) Lymph % (Auto) [place] % (Auto) Eos % (Auto) Baso % (Auto) Neut # (Auto) Lymph # (Auto) [place] # (Auto) Eos # (Auto) Baso # (Auto) WBC Differential Differential Comment Sodium Potassium Chloride Carbon Dioxide Anion Gap BUN Creatinine Estimated GFR POC Glucose 126 H 84 119 H Random Glucose Calcium Phosphorus Albumin Random Vancomycin 01/04/18 01/04/18 07:53 11:45 WBC RBC Hgb Hct MCV MCH MCHC RDW Plt Count MPV Neut % (Auto) Lymph % (Auto) [place] % (Auto) Eos % (Auto) Baso % (Auto) Neut # (Auto) Lymph # (Auto) [place] # (Auto) Eos # (Auto) Baso # (Auto) WBC Differential Differential Comment Sodium Potassium Chloride Carbon Dioxide Anion Gap BUN Creatinine Estimated GFR POC Glucose 138 H 196 H Random Glucose Calcium Phosphorus Albumin Random Vancomycin Assessment and Plan - Plan 01/03/18 = patient made n.p.o. yesterday due to failing swallow evaluation, undergoing dialysis today, continuing treatment for pneumonia and sepsis Altered mental status Acute metabolic encephalopathy combined with psychiatric history Patient has a history of bipolar disorder, Paranoid schizophrenia, Depression, insomnia, narcotic drug abuse Continue risperidone, trazodone, escitalopram, lamotrigine, gabapentin, tramadol Patient has a psych affect but is otherwise mentally clear, conversive Severe sepsis, pneumonia, respiratory failure Lactic acidosis on admission Patient required norepinephrine drip and midodrine but has now stabilized Continue vancomycin and Zosyn Continue duo nebs as needed, continue incentive spirometry, continue aggressive pulmonary toileting Dysphagia Unable to swallow food or drink without cough/choke NPO for now, repeat evaluation at later date Convert necessary meds to IV Repeat swallow evaluation If he fails swallow reevaluation, consider Dobbhoff tube versus PEG tube Consider consenting patient for food based on risk after speaking with family. He is a high risk of choking but does not want a feeding tube. h/o chronic diastolic heart failure At this time patient has a history of hypertension, orthostatic hypotension, peripheral vascular disease Recent echocardiogram showed ejection fraction of 60-65% Continue pravastatin Gastroesophageal reflux disease History of esophagitis and colonic polyps/hiatal hernia s/p EGD LA class D esophagitis and hiatal hernia. 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
[2018-01-04] MEDS: Dextrose 5%/NaCl 0.45% Inj 1,000 ML IV.CONT SCH ×2 (17:32→17:33)
[2018-01-05] MEDS: Insulin NovoLIN Regular Correctional Sugar Inj SQ SCH ×6 (02:30→20:22)
[2018-01-05] MEDS: Piperacil/Tazo 2.25 GM Premix 50 ML IV.SIG SCH ×3 (05:03→20:22)
[2018-01-05 06:17] LABS: Albumin 2.9 g/dL (3.4-5.0); Calcium 8.5 mg/dL (8.5-10.1); Carbon Dioxide 27.7 meq/L (21.0-32.0); Phosphorus 3.5 mg/dL (2.5-4.9); Vancomycin,Random 25.9 Comment
[2018-01-05 06:19] LABS: Baso # (Auto) 0.1 th/mm3 (0.0-0.2); Baso % (Auto) 1.7 % (0.0-2.0); Eos # (Auto) 0.1 th/mm3 (0.0-0.4); Eos % (Auto) 2.6 % (0.0-4.0); Hemoglobin 8.3 gm/dL (13.0-17.0); Lymph # (Auto) 1.2 th/mm3 (1.0-4.8); Lymph % (Auto) 25.5 % (9.0-44.0); Mean Corpuscular HGB Conc 31.7 % (32.0-36.0); Mean Corpuscular Hemoglobin 28.8 pg (27.0-34.0); Mean Corpuscular Volume 90.7 fL (80.0-100.0); Mean Platelet Volume 7.9 fL (7.0-11.0); Mono # (Auto) 0.6 th/mm3 (0.0-0.9); Mono % (Auto) 12.1 % (0.0-8.0); Neut # (Auto) 2.7 th/mm3 (1.8-7.7); Neut % (Auto) 58.1 % (16.0-70.0); Platelet Count 269 th/mm3 (150-450); Red Blood Count 2.87 mil/mm3 (4.50-5.90); White Blood Count 4.6 th/mm3 (4.0-11.0)
[2018-01-05 06:24] LABS: Potassium 2.6 meq/L (3.5-5.1)
[2018-01-05] MEDS: Potassium Chlor 20 mEq Premix 20 MEQ/100 ML PIGGYBACK IV.SIG SCH ×2 (07:18→09:54)
--- NOTE | 2018-01-05 09:06 | P.PN ---
Subjective Interval history: Follow up for dysphagia, pneumonia, AMS. The patient is currently awake, alert, oriented to self, place, and month/year. When asked why he is in the hospital he states "because I was having trouble swallowing". I explained that we might have to feed him through a tube inserted into his stomach, and he did not decline this. He reports an occasional nonproductive cough. Denies fevers/chills , chest pain, or shortness of breaht. Denies any other medical complaints at this time. Physical Exam Vital signs: Vital Signs 01/04/18 11:04 01/04/18 12:00 01/04/18 16:00 Temperature 98.2 F 99.0 F Pulse Rate 80 71 Respiratory Rate 18 17 Blood Pressure 107/61 95/51 L Pulse Oximetry 98 96 96 01/04/18 19:00 01/04/18 20:00 01/05/18 00:00 Temperature 98.8 F 98.3 F Pulse Rate 74 76 Respiratory Rate 18 18 Blood Pressure 105/61 108/63 Pulse Oximetry 96 96 94 L 01/05/18 04:00 01/05/18 08:00 Temperature 98.3 F 98.4 F Pulse Rate 73 81 Respiratory Rate 18 17 Blood Pressure 99/56 L 141/75 H Pulse Oximetry 94 L 97 Intake & Output 01/04/18 01/05/18 01/05/18 18:59 06:59 18:59 Intake Total 1567 / 1567 100 / 100 Balance 1567 / 1567 100 / 100 Weight 76.3 kg Intake: IV 1055 / 1055 100 / 100 D5W/1/2 NS Inj 1,000 ML @ 42 1000 / 1000 mls/hr IV.CONT .[id number] [facility] Rx# :[id number] Zosyn 2.25 GM Premix 50 ML @ 55 / 55 100 / 100 100 mls/hr IV.SIG Q8H [facility] Rx#: [id number] Other 512 / 512 Other: # Voids 0 Date of Last Bowel Movement 01/04/18 01/05/18 # Bowel Movements 5 # Incontinent Bowel Movements 2 Narrative: GENERAL: Well-nourished, well-developed pleasant AA male patient in NAD. SKIN: Warm and dry. No rash. HEENT: Normocephalic. Atraumatic. Pupils equal and round. Mucous membranes pink and moist. CARDIOVASCULAR: Regular rate and rhythm. No murmur appreciated. RESPIRATORY: No accessory muscle use. Slightly diminished inspiratory effort, otherwise clear to auscultation. Breath sounds equal bilaterally. GASTROINTESTINAL: Abdomen soft, non-tender, nondistended. Normoactive bowel sounds x4. MUSCULOSKELETAL: Extremities without clubbing, cyanosis, or edema. NEUROLOGICAL: Awake and alert. No obvious cranial nerve deficits. LUE/LLE with deficit, atrophy, and contractures. RUE/RLE with 5/5 strength. Normal speech. PSYCHIATRIC: Appropriate mood and affect; insight and judgment fair. Results - Labs CBC & Chem 7: 01/05/18 05:21 01/06/18 04:09 Laboratory Results - last 24 hr 01/04/18 01/04/18 01/04/18 11:45 16:18 20:26 WBC RBC Hgb Hct MCV MCH MCHC RDW Plt Count MPV Neut % (Auto) Lymph % (Auto) [place] % (Auto) Eos % (Auto) Baso % (Auto) Neut # (Auto) Lymph # (Auto) [place] # (Auto) Eos # (Auto) Baso # (Auto) WBC Differential Differential Comment Sodium Potassium Chloride Carbon Dioxide Anion Gap BUN Creatinine Estimated GFR POC Glucose 196 H 176 H 180 H Random Glucose Calcium Phosphorus Albumin Random Vancomycin 01/05/18 01/05/18 01/05/18 01:26 02:12 05:10 WBC RBC Hgb Hct MCV MCH MCHC RDW Plt Count MPV Neut % (Auto) Lymph % (Auto) [place] % (Auto) Eos % (Auto) Baso % (Auto) Neut # (Auto) Lymph # (Auto) [place] # (Auto) Eos # (Auto) Baso # (Auto) WBC Differential Differential Comment Sodium Potassium Chloride Carbon Dioxide Anion Gap BUN Creatinine Estimated GFR POC Glucose 61 L 94 133 H Random Glucose Calcium Phosphorus Albumin Random Vancomycin 01/05/18 01/05/18 01/05/18 05:21 05:21 08:03 WBC 4.6 RBC 2.87 L Hgb 8.3 L Hct 26.0 L MCV 90.7 MCH 28.8 MCHC 31.7 L RDW 19.0 H Plt Count 269 MPV 7.9 Neut % (Auto) 58.1 Lymph % (Auto) 25.5 [place] % (Auto) 12.1 H Eos % (Auto) 2.6 Baso % (Auto) 1.7 Neut # (Auto) 2.7 Lymph # (Auto) 1.2 [place] # (Auto) 0.6 Eos # (Auto) 0.1 Baso # (Auto) 0.1 WBC Differential . Differential Comment Auto diff final Sodium 139 Potassium 2.6 L* Chloride 98 Carbon Dioxide 27.7 Anion Gap 13 BUN 16 Creatinine 7.55 H Estimated GFR 9 L POC Glucose 147 H Random Glucose 123 H Calcium 8.5 Phosphorus 3.5 Albumin 2.9 L Random Vancomycin 25.9 - Imaging Chest X-Ray 12/22/17 11:32 CONCLUSION: 1. Right lower lung zone atelectasis/scarring. Chest CTA 12/22/17 12:38 CONCLUSION: 1. No evidence of pulmonary embolism 2. Abnormal appearance of the esophagus Abdomen/Pelvis CT 12/22/17 15:37 CONCLUSION: 1. Diffuse hepatic fatty infiltration. 2. 5 cm cystic structure possibly within the wall of the distal esophagus. Initially I thought this represented a paraesophageal hernia difficult to identify a communication to the lumen of the gastric cardia. 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 I do not believe that there is compromise of the esophageal lumen, however. Endoscopy or upper GI could be performed for further characterization. 3. Both kidneys are markedly atrophic. 4. Series of stents traversing the left external iliac vein and left SFV. Chest X-Ray 12/24/17 17:22 CONCLUSION: Placement of right central line in superior vena cava without pneumothorax. New lung consolidation at the bases since December 22. Chest X-Ray 12/25/17 00:00 CONCLUSION: Stable chest x-ray with bibasilar opacities and likely a small left pleural effusion. Chest X-Ray 12/27/17 06:00 CONCLUSION: Modestly improved bibasilar consolidation. Chest X-Ray 12/30/17 11:38 CONCLUSION: Stable chest. Assessment and Plan - Plan Altered mental status Acute metabolic encephalopathy combined with psychiatric history Patient has a history of bipolar disorder, Paranoid schizophrenia, Depression, insomnia, narcotic drug abuse Continue risperidone, trazodone, escitalopram, lamotrigine, gabapentin, tramadol Patient has a psych affect but is otherwise mentally clear, conversive, oriented to self/place/month/year Severe sepsis, pneumonia, respiratory failure Lactic acidosis on admission Patient required norepinephrine drip and midodrine but has now stabilized Continue vancomycin and Zosyn Continue duo nebs as needed continue incentive spirometry and aggressive pulmonary toileting Symptoms improved, sepsis resolved Dysphagia Unable to swallow food or drink without cough/choking NPO for now, repeat evaluation at later date Convert necessary meds to IV Repeat swallow evaluation If he fails swallow reevaluation, will plan on PEG tube, patient seems to be agreeable now h/o chronic diastolic heart failure At this time patient has a history of hypertension, orthostatic hypotension, peripheral vascular disease Recent echocardiogram showed ejection fraction of 60-65% Continue pravastatin Stable Gastroesophageal reflux disease History of esophagitis and colonic polyps/hiatal hernia s/p EGD LA class D esophagitis and hiatal hernia. 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
[2018-01-05] MEDS: Pantoprazole Inj 40 MG Vial IV.PUSH SCH ×2 (09:54→20:22)
[2018-01-05] MEDS ORDERED: Vancomycin Inj 1,000 MG in Sodium Chlor 0.9% Inj 250 ML IV.SIG SCH (10:00)
[2018-01-05] MEDS: Dextrose 5%/NaCl 0.45% Inj 1,000 ML IV.CONT SCH (11:59)
--- NOTE | 2018-01-05 14:30 | P.PNNP ---
Subjective Interval history: Seen in AM. Hemodialysis planned for today. Remains NPO repeat swallow evaluation continues to recommend NPO. Agreeable to PEG tube placement. IVF are infusing. <Khalida Laura - Last Filed: 01/05/18 14:24> Physical Exam Vital signs: Vital Signs 01/04/18 16:00 01/04/18 19:00 01/04/18 20:00 Temperature 99.0 F 98.8 F Pulse Rate 71 74 Respiratory Rate 17 18 Blood Pressure 95/51 L 105/61 Pulse Oximetry 96 96 96 01/05/18 00:00 01/05/18 04:00 01/05/18 08:00 Temperature 98.3 F 98.3 F 98.4 F Pulse Rate 76 73 75 Respiratory Rate 18 18 18 Blood Pressure 108/63 99/56 L 141/75 H Pulse Oximetry 94 L 94 L 97 01/05/18 10:58 01/05/18 12:00 Temperature 98.8 F Pulse Rate 69 Respiratory Rate 18 Blood Pressure 105/63 Pulse Oximetry 97 93 L Intake & Output 01/04/18 01/05/18 01/05/18 18:59 06:59 18:59 Intake Total 1567 / 1567 100 / 100 1200 / 1200 Balance 1567 / 1567 100 / 100 1200 / 1200 Weight 76.3 kg Intake: IV 1055 / 1055 100 / 100 1200 / 1200 D5W/1/2 NS Inj 1,000 ML @ 42 1000 / 1000 1000 / 1000 mls/hr IV.CONT .[id number] [facility] Rx# :[id number] Zosyn 2.25 GM Premix 50 ML @ 55 / 55 100 / 100 100 mls/hr IV.SIG Q8H [facility] Rx#: [id number] KCl 20 mEq Premix Inj 20 meq In 200 / 200 100 ml @ 50 mls/hr IV.SIG Q2H [facility] Rx#:[id number] Other 512 / 512 Other: # Voids 0 Date of Last Bowel Movement 01/04/18 01/05/18 01/05/18 # Bowel Movements 5 # Incontinent Bowel Movements 2 Narrative: GENERAL: AAOx3, no acute distress, generally weak SKIN: Warm and dry. No rashes NECK: Supple, trachea midline. No JVD. CARDIOVASCULAR: Regular rate and rhythm. No murmurs, gallops, or rubs. AVF in left upper leg with positive thrill and bruit. RESPIRATORY: Scattered congestion in anterior lung jacobson. No accessory muscle use. GASTROINTESTINAL: Abdomen soft, non-tender, nondistended, normal active bowel sounds MUSCULOSKELETAL: No cyanosis, or edema. Contracture present left upper extremity <BuddybayleeKhalida - Last Filed: 01/05/18 14:24> Vital signs: Vital Signs 01/05/18 20:00 01/06/18 00:00 01/06/18 04:00 Temperature 98.6 F 98.2 F 97.9 F Pulse Rate 77 80 74 Respiratory Rate 20 20 20 Blood Pressure 96/71 L 101/64 97/63 L Pulse Oximetry 92 L 94 L 95 01/06/18 07:28 01/06/18 08:00 01/06/18 11:55 Temperature 98.2 F 98.6 F Pulse Rate 79 76 80 Respiratory Rate 15 17 Blood Pressure 113/71 90/55 L Pulse Oximetry 97 01/06/18 12:00 01/06/18 14:40 Temperature Pulse Rate 77 Respiratory Rate Blood Pressure Pulse Oximetry 100 Intake & Output 01/05/18 01/06/18 01/06/18 18:59 06:59 18:59 Intake Total 1500 / 1500 100 / 100 1100 / 1100 Output Total 1999 Balance -500 / -500 100 / 100 1100 / 1100 Intake: IV 1500 / 1500 100 / 100 1100 / 1100 D5W/1/2 NS Inj 1,000 ML @ 42 1000 / 1000 1000 / 1000 mls/hr IV.CONT .[id number] [facility] Rx# :[id number] Zosyn 2.25 GM Premix 50 ML @ 50 / 50 100 / 100 50 / 50 100 mls/hr IV.SIG Q8H [facility] Rx#: [id number] KCl 20 mEq Premix Inj 20 meq In 200 / 200 100 ml @ 50 mls/hr IV.SIG Q2H [facility] Rx#:[id number] Vancomycin Inj 1,000 MG In NS 250 / 250 Inj 250 ML @ 250 mls/hr IV.SIG WITH DIALYSIS [facility] Rx#:[id number] Ancef 2 GM Premix Inj 2 gm In 50 / 50 50 ml @ 0 mls/hr IV.SIG .STK- [facility] Rx#:[id number] Output: Hemodialysis Amount 1999 Other: # Voids 0 2 Date of Last Bowel Movement 01/05/18 01/06/18 01/06/18 # Bowel Movements 0 # Incontinent Bowel Movements 3 <Lizeth Bell - Last Filed: 01/06/18 16:59> Assessment and Plan - Assessment (1) End stage renal disease on dialysis Code(s): N18.6 - End stage renal disease; Z99.2 - Dependence on renal dialysis Status: Acute Plan: End stage renal disease, HD on TTS. Continue cinacalcet, renvela for secondary hyperparathyroidism, currently on hold as NPO Epogen with dialysis Hypokalemic replacement given. Will adjust K bath with dialysis. HD planned for today will remove fluid as tolerated. (2) Aspiration pneumonia of both lungs Code(s): J69.0 - Pneumonitis due to inhalation of food and vomit Plan: On antibiotics, failed swallow exam. NPO, IVF infusing (3) Diabetes Code(s): E11.9 - Type 2 diabetes mellitus without complications Status: Chronic Plan: Well controlled, recommend to maintain blood sugars between 140 mg/dl to 180 mg/ dl (4) Syncope Code(s): R55 - Syncope and collapse Status: Acute (5) Anemia Code(s): D64.9 - Anemia, unspecified Status: Acute Plan: HGB stable, Epogen with dialysis <Khalida Laura - Last Filed: 01/05/18 14:24> - Assessment (1) End stage renal disease on dialysis Code(s): N18.6 - End stage renal disease; Z99.2 - Dependence on renal dialysis Status: Acute Plan: Patient seen and examine, agree with above. HD today, for PEG, possibly tomorrow. On Epogen, follow the Hgb. (2) Aspiration pneumonia of both lungs Code(s): J69.0 - Pneumonitis due to inhalation of food and vomit Qualifiers: Aspiration pneumonia type: unspecified Lung location: lower lobe of lung Qualified Code(s): J69.0 - Pneumonitis due to inhalation of food and vomit (3) Diabetes Code(s): E11.9 - Type 2 diabetes mellitus without complications Status: Chronic Qualifiers: Diabetes mellitus type: type 2 Chronic kidney disease stage: on chronic dialysis (4) Syncope Code(s): R55 - Syncope and collapse Status: Acute Qualifiers: Syncope type: unspecified Qualified Code(s): R55 - Syncope and collapse (5) Anemia Code(s): D64.9 - Anemia, unspecified Status: Acute <Lizeth Bell - Last Filed: 01/06/18 16:59>
[2018-01-06] MEDS: Insulin NovoLIN Regular Correctional Sugar Inj SQ SCH ×6 (01:43→21:04)
[2018-01-06] MEDS: Piperacil/Tazo 2.25 GM Premix 50 ML IV.SIG SCH ×2 (04:03→11:16)
[2018-01-06 05:35] LABS: Calcium 8.7 mg/dL (8.5-10.1); Carbon Dioxide 30.6 meq/L (21.0-32.0)
[2018-01-06 05:36] LABS: Potassium 3.7 meq/L (3.5-5.1)
--- NOTE | 2018-01-06 08:09 | P.PN ---
Subjective Interval history: Follow up for dysphagia, aspiration pneumonia, AMS. The patient is sleeping upon my arrival, easily awakens, oriented x4. Had a long discussion regarding recommendations for peg tube. The patient agrees with placement and states "I haven't ate in a month". He reports an occasional nonproductive cough. Denies any current chest pain or shortness of breath. He has remained afebrile. He has no other medical complaints at this time. Physical Exam Vital signs: Vital Signs 01/05/18 10:58 01/05/18 12:00 01/05/18 16:00 Temperature 98.8 F Pulse Rate 71 73 Respiratory Rate 18 Blood Pressure 105/63 Pulse Oximetry 97 93 L 01/05/18 20:00 01/06/18 00:00 01/06/18 04:00 Temperature 98.6 F 98.2 F 97.9 F Pulse Rate 77 80 74 Respiratory Rate 20 20 20 Blood Pressure 96/71 L 101/64 97/63 L Pulse Oximetry 92 L 94 L 95 01/06/18 07:28 Temperature 98.2 F Pulse Rate 79 Respiratory Rate 15 Blood Pressure 113/71 Pulse Oximetry 97 Intake & Output 01/05/18 01/06/18 01/06/18 18:59 06:59 18:59 Intake Total 1500 / 1500 100 / 100 Output Total 1999 Balance -500 / -500 100 / 100 Intake: IV 1500 / 1500 100 / 100 D5W/1/2 NS Inj 1,000 ML @ 42 1000 / 1000 mls/hr IV.CONT .[id number] [facility] Rx# :[id number] Zosyn 2.25 GM Premix 50 ML @ 50 / 50 100 / 100 100 mls/hr IV.SIG Q8H [facility] Rx#: [id number] KCl 20 mEq Premix Inj 20 meq In 200 / 200 100 ml @ 50 mls/hr IV.SIG Q2H [facility] Rx#:[id number] Vancomycin Inj 1,000 MG In NS 250 / 250 Inj 250 ML @ 250 mls/hr IV.SIG WITH DIALYSIS [facility] Rx#:[id number] Output: Hemodialysis Amount 1999 Other: # Voids 0 2 Date of Last Bowel Movement 01/05/18 01/06/18 # Bowel Movements 0 # Incontinent Bowel Movements 3 Narrative: GENERAL: Well-nourished, well-developed pleasant AA male patient in NAD. SKIN: Warm and dry. No rash. HEENT: Normocephalic. Atraumatic. Pupils equal and round. Mucous membranes pink and moist. CARDIOVASCULAR: Regular rate and rhythm. No murmur appreciated. RESPIRATORY: No accessory muscle use. Slightly diminished inspiratory effort, otherwise clear to auscultation. Breath sounds equal bilaterally. GASTROINTESTINAL: Abdomen soft, non-tender, nondistended. Normoactive bowel sounds x4. MUSCULOSKELETAL: Extremities without clubbing, cyanosis, or edema. NEUROLOGICAL: Awake and alert. No obvious cranial nerve deficits. LUE/LLE with deficit, atrophy, and contractures. RUE/RLE with 5/5 strength. Normal speech. PSYCHIATRIC: Appropriate mood and affect; insight and judgment fair. Results - Labs CBC & Chem 7: 01/05/18 05:21 01/06/18 04:09 Laboratory Results - last 24 hr 01/05/18 01/05/18 01/05/18 08:22 12:31 17:04 Sodium Potassium Chloride Carbon Dioxide Anion Gap BUN Creatinine Estimated GFR POC Glucose 172 H 126 H Random Glucose Calcium Magnesium 2.3 01/05/18 01/05/18 01/06/18 20:20 21:56 01:14 Sodium Potassium 3.1 L Chloride Carbon Dioxide Anion Gap BUN Creatinine Estimated GFR POC Glucose 141 H 148 H Random Glucose Calcium Magnesium 01/06/18 01/06/18 01/06/18 04:09 06:36 07:45 Sodium 139 Potassium 3.7 Chloride 97 L Carbon Dioxide 30.6 Anion Gap 11 BUN 8 Creatinine 5.04 H Estimated GFR 14 L POC Glucose 149 H 153 H Random Glucose 138 H Calcium 8.7 Magnesium Assessment and Plan - Plan Altered mental status Acute metabolic encephalopathy combined with psychiatric history Patient has a history of bipolar disorder, Paranoid schizophrenia, Depression, insomnia, narcotic drug abuse Continue risperidone, trazodone, escitalopram, lamotrigine, gabapentin, tramadol Patient has a psych affect but is otherwise mentally clear, conversive, oriented to self/place/month/year Appears at baseline Severe sepsis, pneumonia, respiratory failure Lactic acidosis on admission Patient required norepinephrine drip and midodrine but has now stabilized Blood cultures and sputum culture with NGTD Received 2 weeks of IV antibiotics with Vanco/Zosyn from 12/24 to 01/06, will discontinue today 01/06 Continue duo nebs as needed continue incentive spirometry and aggressive pulmonary toileting Symptoms improved, sepsis resolved, monitor off antibiotics Dysphagia Unable to swallow food or drink without cough/choking NPO for now Convert necessary meds to IV Patient has failed multiple repeat swallow evaluations, agrees with PEG IR consulted for PEG tube placement on 01/06 Dietitian consulted for tube feed recommendations Currently on IVF with D5 1/2NS until tube feeds are started Most oral meds are on hold until PEG placed, will need to restart h/o chronic diastolic heart failure At this time patient has a history of hypertension, orthostatic hypotension, peripheral vascular disease Recent echocardiogram showed ejection fraction of 60-65% Continue pravastatin Stable Gastroesophageal reflux disease History of esophagitis and colonic polyps/hiatal hernia s/p EGD LA class D esophagitis and hiatal hernia. 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
[2018-01-06] MEDS: Pantoprazole Inj 40 MG Vial IV.PUSH SCH ×2 (09:41→20:56)
[2018-01-06] MEDS: Dextrose 5%/NaCl 0.45% Inj 1,000 ML IV.CONT SCH (11:18)
--- NOTE | 2018-01-06 11:56 | P.PNNP ---
Subjective Interval history: Resting comfortably. Ir consulted for PEG tube placement. Hemodialysis yesterday, tolerated well. <Khalida Laura - Last Filed: 01/06/18 11:52> Physical Exam Vital signs: Vital Signs 01/05/18 12:00 01/05/18 16:00 01/05/18 20:00 Temperature 98.8 F 98.6 F Pulse Rate 71 73 77 Respiratory Rate 18 20 Blood Pressure 105/63 96/71 L Pulse Oximetry 93 L 92 L 01/06/18 00:00 01/06/18 04:00 01/06/18 07:28 Temperature 98.2 F 97.9 F 98.2 F Pulse Rate 80 74 79 Respiratory Rate 20 20 15 Blood Pressure 101/64 97/63 L 113/71 Pulse Oximetry 94 L 95 97 01/06/18 08:00 Temperature Pulse Rate 76 Respiratory Rate Blood Pressure Pulse Oximetry Intake & Output 01/05/18 01/06/18 01/06/18 18:59 06:59 18:59 Intake Total 1500 / 1500 100 / 100 1000 / 1000 Output Total 1999 Balance -500 / -500 100 / 100 1000 / 1000 Intake: IV 1500 / 1500 100 / 100 1000 / 1000 D5W/1/2 NS Inj 1,000 ML @ 42 1000 / 1000 1000 / 1000 mls/hr IV.CONT .[id number] [facility] Rx# :[id number] Zosyn 2.25 GM Premix 50 ML @ 50 / 50 100 / 100 100 mls/hr IV.SIG Q8H [facility] Rx#: [id number] KCl 20 mEq Premix Inj 20 meq In 200 / 200 100 ml @ 50 mls/hr IV.SIG Q2H [facility] Rx#:[id number] Vancomycin Inj 1,000 MG In NS 250 / 250 Inj 250 ML @ 250 mls/hr IV.SIG WITH DIALYSIS [facility] Rx#:[id number] Output: Hemodialysis Amount 1999 Other: # Voids 0 2 Date of Last Bowel Movement 01/05/18 01/06/18 01/06/18 # Bowel Movements 0 # Incontinent Bowel Movements 3 Narrative: GENERAL: AAOx3, no acute distress, generally weak SKIN: Warm and dry. No rashes NECK: Supple, trachea midline. No JVD. CARDIOVASCULAR: Regular rate and rhythm. No murmurs, gallops, or rubs. AVF in left upper leg with positive thrill and bruit. RESPIRATORY: Scattered congestion in anterior lung jacobson. No accessory muscle use. GASTROINTESTINAL: Abdomen soft, non-tender, nondistended, normal active bowel sounds MUSCULOSKELETAL: No cyanosis, or edema. Contracture present left upper extremity <Khalida Laura - Last Filed: 01/06/18 11:52> Vital signs: Vital Signs 01/10/18 10:49 01/10/18 12:00 01/10/18 15:30 Temperature 98.8 F Pulse Rate 77 88 Respiratory Rate 16 Blood Pressure 104/57 L Pulse Oximetry 98 97 01/10/18 16:00 01/10/18 20:00 01/10/18 20:02 Temperature 98.4 F Pulse Rate 87 83 82 Respiratory Rate 16 Blood Pressure 100/63 Pulse Oximetry 100 01/10/18 23:55 01/11/18 00:00 01/11/18 03:55 Temperature 97.8 F Pulse Rate 81 117 H 79 Respiratory Rate 16 Blood Pressure 117/79 Pulse Oximetry 94 L 01/11/18 05:30 01/11/18 08:00 01/11/18 10:32 Temperature 97.8 F 97.8 F Pulse Rate 80 88 Respiratory Rate 16 20 Blood Pressure 97/63 L 99/60 L Pulse Oximetry 91 L 99 97 Intake & Output 01/10/18 01/11/18 01/11/18 18:59 06:59 18:59 Intake Total 381 / 381 Output Total 1999 Balance -1999 381 / 381 Weight 75.4 kg Intake: Oral 0 / 0 Tube Feeding 381 / 381 Output: Hemodialysis Amount 1999 Other: # Voids 0 Date of Last Bowel Movement 01/11/18 # Bowel Movements 1 # Incontinent Bowel Movements 2 <Lizeth Bell - Last Filed: 01/11/18 10:45> Assessment and Plan - Assessment (1) End stage renal disease on dialysis Code(s): N18.6 - End stage renal disease; Z99.2 - Dependence on renal dialysis Status: Acute Plan: End stage renal disease, HD on TTS. Continue cinacalcet, renvela for secondary hyperparathyroidism, currently on hold as NPO Epogen with dialysis HD planned for tomorrow (2) Aspiration pneumonia of both lungs Code(s): J69.0 - Pneumonitis due to inhalation of food and vomit Qualifiers: Aspiration pneumonia type: unspecified Lung location: lower lobe of lung Qualified Code(s): J69.0 - Pneumonitis due to inhalation of food and vomit Plan: On antibiotics, failed swallow exam. NPO, IVF infusing IR consulted for PEG tube placement. (3) Diabetes Code(s): E11.9 - Type 2 diabetes mellitus without complications Status: Chronic Qualifiers: Diabetes mellitus type: type 2 Chronic kidney disease stage: on chronic dialysis Plan: Well controlled, recommend to maintain blood sugars between 140 mg/dl to 180 mg/ dl (4) Syncope Code(s): R55 - Syncope and collapse Status: Acute Qualifiers: Syncope type: unspecified Qualified Code(s): R55 - Syncope and collapse (5) Anemia Code(s): D64.9 - Anemia, unspecified Status: Acute Plan: HGB stable, Epogen with dialysis - Plan Patient seen and examined, agree with above. BP is low, on pressors, Florinef is added. HD to continue TTS. For colonoscopy in AM. <Khalida Laura - Last Filed: 01/06/18 11:52> - Assessment (1) End stage renal disease on dialysis Code(s): N18.6 - End stage renal disease; Z99.2 - Dependence on renal dialysis Status: Acute Plan: Patient seen and examined, agree with above. HD will be in AM, (2) Diabetes Code(s): E11.9 - Type 2 diabetes mellitus without complications Status: Chronic Qualifiers: Diabetes mellitus type: type 2 Chronic kidney disease stage: on chronic dialysis (3) Anemia Code(s): D64.9 - Anemia, unspecified Status: Acute (4) Dysphagia Code(s): R13.10 - Dysphagia, unspecified Status: Acute <Lizeth Bell - Last Filed: 01/11/18 10:45>
--- NOTE | 2018-01-06 12:29 | P.DIET ---
Nutritional Evaluation Type of nutrition evaluation: initial Nutrition consult regarding: Tube Feeding Nutrition screening: [facility] [place] (Tube Feeding) Objective - Diagnosis Chest Pain, R/O ACS - Objective Body Mass Index: 26.3 % IBW: 113 (IBW = 148#) Energy Needs - Lower Range (kCal/kg): 28 Energy Needs - Upper Range (kCal/kg): 32 Lower Limit kCal/kg (kCals): 2,136 Upper Limit kCal/kg (kCals): 2,442 Lower Limit Protein Factor (Grams per Kg): 1.2 Upper Limit Protein Factor (Grams per Kg): 1.5 Lower Protein Needs (Protein): 92 Upper Protein Needs (Protein): 115 Dietitian Reviewed in Medical Record: Current diet, Curent medications, Intake & Output, Labs, Medical history Diet Order: NPO Objective Comments: Hx includes ESRD on HD (T, Th, Sat), CVA w/L sided weakness and contractures.DM , CHF Meds include Vit C, remeron, MVI, HgA1C 7.5 Assessment Assessment: Pt is to have PEG placed d/t dysphagia. To meet needs with TF, recommend Nepro @ 55 mls/hr to provide 2376 kcals, 107 gms protein and 960 mls of free water. Additional water flushed per RD following. Recommendations: Nepro @ 55 mls/hr goal Dietitian to Monitor: Lab values, Intake & Output, Tube feeding tolerance, Weight change, Swallow recommendations, Medical course
[2018-01-06] MEDS ORDERED: fentaNYL Citrate Inj 250 MCG/5 ML Ampul ONE (15:46)
[2018-01-06] MEDS ORDERED: ceFAZolin 1 GM Premix Inj 0 GM/0 ML FROZ.PIGGY IV.SIG ONE (16:04)
[2018-01-06] MEDS ORDERED: ceFAZolin 2 GM Premix Inj 2 GM/50 ML PIGGYBACK IV.SIG ONE (16:06)
[2018-01-06] MEDS ORDERED: Iohexol 350 MG/ML 50 ML Vial (for Rad Diag) G-TUBE ONE (16:40)
--- NOTE | 2018-01-06 17:11 | IR ---
EXAM DATE: 01/06/2018 5:03 PM EST AGE/SEX: 62 years / Male INDICATIONS: Patient with history of dysphagia in need of gastrostomy tube placement for nutrition. CLINICAL DATA: This is the patient's initial encounter. Patient reports that signs and symptoms have been present for 2 weeks and indicates a pain score of 0/10. MEDICAL/SURGICAL HISTORY: . AV Fistula, BPH, Bipolar Disorder, Cerebral infarction, CKD, Contra ction, Dysphagia, ESRD, Esophagitis, GERD, Heart Failure, Hyperlipidemia, Hypothyroidism, Iron Defici ency Anemia, Mood Disorder, Osteoporosis, Peripheral Vascular Disease, Renal Dialysis Status, Schizop hrenia, Type 2 Diabetes . Cardiac Cath COMPARISON: No prior exams available for comparison. FLUORO TIME (min): 2.3 IMAGE SERIES: 1 SEDATION TIME (min): 30 CONTRAST (cc): 10 Omnipaque (iohexol) 350 MEDICATION(S): 3 mg midazolam (Versed) IV 150 mcg fentanyl (Sublimaze) IV DEVICE(S): 18 [place] gastrostomy tube . . PROCEDURE: 1. Limited abdominal ultrasound. 2. Fluoroscopically guided gastrostomy tube placement. 3. Conscious sedation with continuous EKG and oximetry monitoring. The risks, benefits and alternatives to the procedure were explained and verbal and written consent w as obtained. The site was prepped in sterile fashion. Full sterile technique was used, including ca p, mask, sterile gloves and gown and a large sterile sheet. Hand hygiene and 2% chlorhexidine and/or betadine/alcohol prep was utilized per protocol for cutaneous antisepsis. The skin and subcutaneous tissues were infiltrated with local anesthetic solution. Sterile gel and sterile probe cover were u tilized for ultrasound guidance. Ultrasound was used to pino the position of the liver. The stomach was insufflated with room air. Th ree percutaneous fasteners were placed to secure the anterior gastric wall. A small incision was made between the fasteners. The stomach was accessed with an 18 gauge needle. A n 0.035 wire was advanced into the small bowel. The tract was dilated. The gastrostomy tube was int roduced through a peel-away sheath. The position was confirmed with an injection of contrast. Conscious sedation was performed with the prescribed dosages and duration as above in the presence of an independent trained radiology nurse to assist in the monitoring of the patient. EKG and oximetry remained stable throughout the procedure. The patient tolerated the procedure well and there were n o complications. The patient was sent to post anesthesia recovery in stable condition. CONCLUSION: 1. Uncomplicated gastrostomy tube placement as above. Electronically signed by: Mohsen Borja MD 01/06/2018 5:09 PM EST
[2018-01-06] MEDS: Zolpidem Tartrate 5 MG Tablet PO PRN (21:07)
[2018-01-06] MEDS ORDERED: Morphine Inj 4 MG/ML Vial IV.PUSH ONE (21:45)
[2018-01-07] MEDS: Insulin NovoLIN Regular Correctional Sugar Inj SQ SCH ×5 (00:03→20:39)
--- NOTE | 2018-01-07 10:46 | P.PNNP ---
Subjective Interval history: No acute complaints, seen on dialysis today and tolerating well Physical Exam Vital signs: Vital Signs 01/06/18 11:55 01/06/18 12:00 01/06/18 14:40 Temperature 98.6 F Pulse Rate 80 77 Respiratory Rate 17 Blood Pressure 90/55 L Pulse Oximetry 100 01/06/18 15:45 01/06/18 20:00 01/07/18 00:00 Temperature 98 F 98 F Pulse Rate 73 73 74 Respiratory Rate 20 16 Blood Pressure 120/81 105/70 Pulse Oximetry 97 91 L 01/07/18 04:00 01/07/18 08:00 Temperature 97.8 F 97.3 F L Pulse Rate 78 72 Respiratory Rate 20 19 Blood Pressure 111/75 127/66 Pulse Oximetry 98 97 Intake & Output 01/06/18 01/07/18 01/07/18 18:59 06:59 18:59 Intake Total 1100 / 1100 Balance 1100 / 1100 Weight 75.9 kg Intake: IV 1100 / 1100 D5W/1/2 NS Inj 1,000 ML @ 42 1000 / 1000 mls/hr IV.CONT .[id number] [facility] Rx# :[id number] Zosyn 2.25 GM Premix 50 ML @ 50 / 50 100 mls/hr IV.SIG Q8H [facility] Rx#: [id number] Ancef 2 GM Premix Inj 2 gm In 50 / 50 50 ml @ 0 mls/hr IV.SIG .STK- [facility] Rx#:[id number] Other: # Voids 0 Date of Last Bowel Movement 01/06/18 01/06/18 # Bowel Movements 2 - Constitutional no acute distress - Routine HEENT Exam Head: Present: normocephalic Eye: Present: EOMI ENT: Present: mucous membranes moist - Routine Neck Exam Present: supple - Routine Respiratory Exam Present: CTA bilaterally - Routine Cardiovascular Exam Present: RRR - Routine Abdominal Exam Present: soft - Routine Skin Exam Present: intact - Routine Neurological Exam Present: alert - Detailed Neurological Exam: Coma Scale Eye Opening: Spontaneous - Routine Psychiatric Exam Present: normal affect Assessment and Plan - Assessment (1) End stage renal disease on dialysis Code(s): N18.6 - End stage renal disease; Z99.2 - Dependence on renal dialysis Status: Acute Plan: ESRD TTS Seen on dialysis today, tolerating HD well via left femoral AV graft. Continue HD - plan next HD Tuesday. Senthil added - BP stable (2) Aspiration pneumonia of both lungs Code(s): J69.0 - Pneumonitis due to inhalation of food and vomit Qualifiers: Aspiration pneumonia type: unspecified Lung location: lower lobe of lung Qualified Code(s): J69.0 - Pneumonitis due to inhalation of food and vomit Plan: On antibiotics, failed swallow exam. PEG placed yesterday (3) Diabetes Code(s): E11.9 - Type 2 diabetes mellitus without complications Status: Chronic Qualifiers: Diabetes mellitus type: type 2 Chronic kidney disease stage: on chronic dialysis Plan: Well controlled, recommend to maintain blood sugars between 140 mg/dl to 180 mg/ dl (4) Syncope Code(s): R55 - Syncope and collapse Status: Acute Qualifiers: Syncope type: unspecified Qualified Code(s): R55 - Syncope and collapse (5) Anemia Code(s): D64.9 - Anemia, unspecified Status: Acute Plan: HGB stable, Epogen with dialysis
[2018-01-07] MEDS: Dextrose 5%/NaCl 0.45% Inj 1,000 ML IV.CONT SCH ×2 (13:15→18:22)
[2018-01-07] MEDS: Pantoprazole Inj 40 MG Vial IV.PUSH SCH ×2 (13:21→20:38)
--- NOTE | 2018-01-07 14:23 | P.PN ---
Subjective Interval history: Patient in bed more awake and alert. Says he has some pain at the PEG tube site. No fever or chills Had HD today. Physical Exam Vital signs: Vital Signs 01/06/18 14:40 01/06/18 15:45 01/06/18 20:00 Temperature 98 F Pulse Rate 73 73 Respiratory Rate 20 Blood Pressure 120/81 Pulse Oximetry 100 97 01/07/18 00:00 01/07/18 04:00 01/07/18 08:00 Temperature 98 F 97.8 F 97.3 F L Pulse Rate 74 78 72 Respiratory Rate 16 20 19 Blood Pressure 105/70 111/75 127/66 Pulse Oximetry 91 L 98 97 01/07/18 12:00 Temperature Pulse Rate 85 Respiratory Rate Blood Pressure Pulse Oximetry Intake & Output 01/06/18 01/07/18 01/07/18 18:59 06:59 18:59 Intake Total 1100 / 1100 800 / 800 Output Total 1999 / 1999 Balance 1100 / 1100 -1200 / -1200 Weight 75.9 kg Intake: IV 1100 / 1100 800 / 800 D5W/1/2 NS Inj 1,000 ML @ 42 1000 / 1000 800 / 800 mls/hr IV.CONT .[id number] [facility] Rx# :[id number] Zosyn 2.25 GM Premix 50 ML @ 50 / 50 100 mls/hr IV.SIG Q8H [facility] Rx#: [id number] Ancef 2 GM Premix Inj 2 gm In 50 / 50 50 ml @ 0 mls/hr IV.SIG .STK- [facility] Rx#:[id number] Output: Hemodialysis Amount 1999 Other: # Voids 0 Date of Last Bowel Movement 01/06/18 01/06/18 01/06/18 # Bowel Movements 2 Narrative: GENERAL: 62 yo female, more awake and alert, no acute distress, appears weak. SKIN: Warm and dry. No rashes NECK: Supple, trachea midline. No JVD. CARDIOVASCULAR: Regular rate and rhythm. No murmurs, gallops, or rubs. AVF in left upper leg with positive thrill and bruit. RESPIRATORY: Scattered congestion in anterior lung jacobson. No accessory muscle use. GASTROINTESTINAL: Abdomen soft, non-tender, nondistended, normal active bowel sounds MUSCULOSKELETAL: No cyanosis, or edema. Contracture present left upper extremity Results - Labs CBC & Chem 7: 01/05/18 05:21 01/06/18 04:09 Laboratory Results - last 24 hr 01/06/18 01/06/18 01/06/18 17:00 18:10 20:53 POC Glucose 256 H 218 H 196 H Random Vancomycin 01/07/18 01/07/18 01/07/18 00:01 04:44 04:53 POC Glucose 191 H 52 L Random Vancomycin 25.3 01/07/18 01/07/18 01/07/18 04:58 05:31 06:13 POC Glucose 62 L 82 101 Random Vancomycin 01/07/18 01/07/18 07:57 12:14 POC Glucose 127 H 135 H Random Vancomycin - Imaging Impressions Gastrostomy Tube Placement 01/06/18 00:00 CONCLUSION: 1. Uncomplicated gastrostomy tube placement as above. Assessment and Plan - Plan 62 yo M with ESRD and significant nausea/vomiting, found to have esophageal cyst on imaging, who presents with acute hypotension and altered mentation. Altered mental status Acute metabolic encephalopathy combined with psychiatric history Patient has a history of bipolar disorder, Paranoid schizophrenia, Depression, insomnia, narcotic drug abuse Continue risperidone, trazodone, escitalopram, lamotrigine, gabapentin, tramadol Patient has a psych affect but is otherwise mentally clear, conversive, oriented to self/place/month/year Appears at baseline Severe sepsis, pneumonia, respiratory failure Lactic acidosis on admission Patient required norepinephrine drip and midodrine but has now stabilized Blood cultures and sputum culture with NGTD Received 2 weeks of IV antibiotics with Vanco/Zosyn from 12/24 to 01/06, will discontinue today 01/06 Continue duo nebs as needed continue incentive spirometry and aggressive pulmonary toileting Symptoms improved, sepsis resolved, monitor off antibiotics Dysphagia Unable to swallow food or drink without cough/choking NPO for now Convert necessary meds to IV Patient has failed multiple repeat swallow evaluations, agrees with PEG IR consulted for PEG tube placement on 01/06 Dietitian consulted for tube feed recommendations Currently on IVF with D5 1/2NS until tube feeds are started Most oral meds are on hold until PEG placed, will need to restart H/o chronic diastolic heart failure At this time patient has a history of hypertension, orthostatic hypotension, peripheral vascular disease Recent echocardiogram showed ejection fraction of 60-65% Continue pravastatin Stable Gastroesophageal reflux disease History of esophagitis and colonic polyps/hiatal hernia s/p EGD LA class D esophagitis and hiatal hernia. 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
[2018-01-08] MEDS: Insulin NovoLIN Regular Correctional Sugar Inj SQ SCH ×7 (00:02→23:46)
[2018-01-08] MEDS: Pantoprazole Inj 40 MG Vial IV.PUSH SCH ×2 (08:42→20:37)
--- NOTE | 2018-01-08 09:23 | P.PN ---
Subjective Interval history: Complaints of abdominal pain at feeding tube side. He had a bowel movement 2 days ago. He is passing gas. He has no nausea no vomiting. No diarrhea. No fever or chills. However he appears uncomfortable Physical Exam Vital signs: Vital Signs 01/07/18 12:00 01/07/18 16:00 01/07/18 17:24 Temperature 97.4 F L Pulse Rate 85 91 H Respiratory Rate 17 Blood Pressure 97/56 L Pulse Oximetry 98 98 01/07/18 20:00 01/08/18 00:00 01/08/18 02:00 Temperature 98.0 F 97.5 F L Pulse Rate 84 87 Respiratory Rate 16 17 Blood Pressure 95/53 L 92/48 L 98/58 L Pulse Oximetry 95 95 01/08/18 04:00 01/08/18 08:00 Temperature 97.5 F L 96.2 F L Pulse Rate 87 87 Respiratory Rate 17 16 Blood Pressure 95/54 L 106/63 Pulse Oximetry 95 100 Intake & Output 01/07/18 01/08/18 01/08/18 18:59 06:59 18:59 Intake Total 1000 / 1000 Output Total 1999 Balance -1000 / -1000 Weight 75.9 kg 75.6 kg Intake: IV 1000 / 1000 D5W/1/2 NS Inj 1,000 ML @ 42 1000 / 1000 mls/hr IV.CONT .[id number] [facility] Rx# :[id number] Oral 0 / 0 Output: Hemodialysis Amount 1999 Other: # Voids 1 # Incontinent Voids 1 Date of Last Bowel Movement 01/06/18 # Bowel Movements 1 Narrative: GENERAL: 62 yo female, more awake and alert, no acute distress, appears weak. SKIN: Warm and dry. No rashes NECK: Supple, trachea midline. No JVD. CARDIOVASCULAR: Regular rate and rhythm. No murmurs, gallops, or rubs. AVF in left upper leg with positive thrill and bruit. RESPIRATORY: Scattered congestion in anterior lung jacobson. No accessory muscle use. GASTROINTESTINAL: Abdomen soft, tender around the PEG tube, nondistended, normal active bowel sounds MUSCULOSKELETAL: No cyanosis, or edema. Contracture present left upper extremity Results - Labs CBC & Chem 7: 01/05/18 05:21 01/06/18 04:09 Laboratory Results - last 24 hr 01/07/18 01/07/18 01/07/18 12:14 17:07 19:41 POC Glucose 135 H 224 H 205 H 01/07/18 01/08/18 01/08/18 23:58 04:46 07:15 POC Glucose 86 226 H 224 H Assessment and Plan - Plan 62 yo M with ESRD and significant nausea/vomiting, found to have esophageal cyst on imaging, who presents with acute hypotension and altered mentation. Altered mental status Acute metabolic encephalopathy combined with psychiatric history Patient has a history of bipolar disorder, Paranoid schizophrenia, Depression, insomnia, narcotic drug abuse Continue risperidone, trazodone, escitalopram, lamotrigine, gabapentin, tramadol Patient has a psych affect but is otherwise mentally clear, conversive, oriented to self/place/month/year Appears at baseline Severe sepsis, pneumonia, respiratory failure Lactic acidosis on admission Patient required norepinephrine drip and midodrine but has now stabilized Blood cultures and sputum culture with NGTD Received 2 weeks of IV antibiotics with Vanco/Zosyn from 12/24 to 01/06, will discontinue today 01/06 Continue duo nebs as needed continue incentive spirometry and aggressive pulmonary toileting Symptoms improved, sepsis resolved, monitor off antibiotics Dysphagia Unable to swallow food or drink without cough/choking NPO for now, tube feeds only, speech therapy following as well Convert necessary meds to IV Patient has failed multiple repeat swallow evaluations, agrees with PEG IR consulted for PEG tube placement on 01/06 Dietitian consulted for tube feed recommendations DC IVF with D5 1/2NS and started tube feeds PEG placed 01/06. Will do KUB, patient complains of abdominal pain. So far tolerates feeding tubes. H/o chronic diastolic heart failure At this time patient has a history of hypertension, orthostatic hypotension, peripheral vascular disease Recent echocardiogram showed ejection fraction of 60-65% Continue pravastatin Stable Gastroesophageal reflux disease History of esophagitis and colonic polyps/hiatal hernia s/p EGD LA class D esophagitis and hiatal hernia. 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
[2018-01-08] MEDS: Dextrose 5%/NaCl 0.45% Inj 1,000 ML IV.CONT SCH ×2 (11:44→18:23)
--- NOTE | 2018-01-08 12:22 | XR ---
EXAM DATE: 01/08/2018 12:17 PM EST AGE/SEX: 62 years / Male INDICATIONS: Abdomen pain CLINICAL DATA: This is the patient's initial encounter. Patient reports that signs and symptoms have been present for 2 weeks and indicates a pain score of 3/10. MEDICAL/SURGICAL HISTORY: . . AV Fistula, BPH, Bipolar Disorder, Cerebral infarction, CKD, Cont raction, Dysphagia, ESRD, Esophagitis, GERD, Heart Failure, Hyperlipidemia, Hypothyroidism, Iron Defi ciency Anemia, Mood Disorder, Osteoporosis, Peripheral Vascular Disease, Renal Dialysis Status, Schiz ophrenia, Type 2 Diabetes . . Cardiac Cath, Abdo menial stent [place] [facility] [place] 12/22/2017. . FINDINGS: The abdominal bowel gas pattern is normal. No abnormal masses, calcifications, or organomegaly is s een. The osseous structures are unremarkable. Ostomy tube overlies the left upper quadrant. Left fem oral artery stents are present. CONCLUSION: Negative examination. Electronically signed by: Henry Haas MD 01/08/2018 12:20 PM EST
--- NOTE | 2018-01-08 15:12 | P.PNNP ---
Subjective Interval history: reports mild abdominal pains at PEG site Physical Exam Vital signs: Vital Signs 01/07/18 16:00 01/07/18 17:24 01/07/18 20:00 Temperature 97.4 F L 98.0 F Pulse Rate 91 H 84 Respiratory Rate 17 16 Blood Pressure 97/56 L 95/53 L Pulse Oximetry 98 98 95 01/08/18 00:00 01/08/18 02:00 01/08/18 04:00 Temperature 97.5 F L 97.5 F L Pulse Rate 87 87 Respiratory Rate 17 17 Blood Pressure 92/48 L 98/58 L 95/54 L Pulse Oximetry 95 95 01/08/18 08:00 01/08/18 12:00 Temperature 96.2 F L 98.4 F Pulse Rate 89 83 Respiratory Rate 16 17 Blood Pressure 106/63 91/54 L Pulse Oximetry 100 95 Intake & Output 01/07/18 01/08/18 01/08/18 18:59 06:59 18:59 Intake Total 1000 / 1000 Output Total 1999 Balance -1000 / -1000 Weight 75.9 kg 75.6 kg Intake: IV 1000 / 1000 D5W/1/2 NS Inj 1,000 ML @ 42 1000 / 1000 mls/hr IV.CONT .[id number] [facility] Rx# :[id number] Oral 0 / 0 Output: Hemodialysis Amount 1999 Other: # Voids 1 # Incontinent Voids 1 Date of Last Bowel Movement 01/06/18 # Bowel Movements 1 - Constitutional no acute distress - Routine HEENT Exam Head: Present: normocephalic Eye: Present: EOMI ENT: Present: mucous membranes moist - Routine Neck Exam Present: supple - Routine Respiratory Exam Present: decreased breath sounds - Routine Cardiovascular Exam Present: RRR - Routine Abdominal Exam Present: soft - Routine Extremities Exam Present: vascular access - Routine Skin Exam Present: intact - Routine Neurological Exam Present: alert - Detailed Neurological Exam: Coma Scale Eye Opening: Spontaneous - Routine Psychiatric Exam Present: normal affect Assessment and Plan - Assessment (1) End stage renal disease on dialysis Code(s): N18.6 - End stage renal disease; Z99.2 - Dependence on renal dialysis Status: Acute Plan: ESRD TTS HD done yesterday with 2L UF Continue HD - plan next HD Tuesday. Senthil added this admission - BP stable (2) Aspiration pneumonia of both lungs Code(s): J69.0 - Pneumonitis due to inhalation of food and vomit Qualifiers: Aspiration pneumonia type: unspecified Lung location: lower lobe of lung Qualified Code(s): J69.0 - Pneumonitis due to inhalation of food and vomit Plan: On antibiotics, failed swallow exam. PEG placed Tuesday (3) Diabetes Code(s): E11.9 - Type 2 diabetes mellitus without complications Status: Chronic Qualifiers: Diabetes mellitus type: type 2 Chronic kidney disease stage: on chronic dialysis Plan: Well controlled, recommend to maintain blood sugars between 140 mg/dl to 180 mg/ dl (4) Syncope Code(s): R55 - Syncope and collapse Status: Acute Qualifiers: Syncope type: unspecified Qualified Code(s): R55 - Syncope and collapse (5) Anemia Code(s): D64.9 - Anemia, unspecified Status: Acute Plan: HGB stable, Epogen with dialysis - Plan .
[2018-01-08] MEDS: Zolpidem Tartrate 5 MG Tablet PO PRN (20:37)
[2018-01-09] MEDS: Insulin NovoLIN Regular Correctional Sugar Inj SQ SCH ×6 (03:55→23:34)
--- NOTE | 2018-01-09 09:34 | P.PNNP ---
Subjective Interval history: Seen in morning. Reports some pain at PEG tube site. Tolerating tube feeding. Hypokalemia at 2.7. <Khalida Laura - Last Filed: 01/09/18 14:04> Physical Exam Vital signs: Vital Signs 01/08/18 12:00 01/08/18 16:00 01/08/18 19:55 Temperature 98.4 F 97.3 F L Pulse Rate 83 84 Respiratory Rate 17 16 Blood Pressure 91/54 L 95/52 L Pulse Oximetry 95 95 95 01/08/18 20:00 01/08/18 21:12 01/09/18 00:00 Temperature 98.6 F Pulse Rate 92 H 87 Respiratory Rate 16 19 16 Blood Pressure 105/60 Pulse Oximetry 95 01/09/18 00:32 01/09/18 04:00 01/09/18 04:24 Temperature 98.2 F 98.3 F Pulse Rate 94 H 82 Respiratory Rate 19 17 16 Blood Pressure 100/57 L 101/56 L Pulse Oximetry 94 L 94 L 01/09/18 08:00 Temperature 97.4 F L Pulse Rate 82 Respiratory Rate 16 Blood Pressure 104/70 Pulse Oximetry 94 L Intake & Output 01/08/18 01/09/18 01/09/18 18:59 06:59 18:59 Intake Total 1000 / 1000 Balance 1000 / 1000 Weight 77.7 kg Intake: IV 1000 / 1000 D5W/1/2 NS Inj 1,000 ML @ 42 1000 / 1000 mls/hr IV.CONT .[id number] [facility] Rx# :[id number] Oral 0 / 0 Other: # Incontinent Voids 1 Date of Last Bowel Movement 01/07/18 Narrative: GENERAL: Awake and oriented. SKIN: Warm and dry. No rashes NECK: Supple, trachea midline. No JVD. CARDIOVASCULAR: Regular rate and rhythm. No murmurs, gallops, or rubs. AVF in left upper leg with positive thrill and bruit. RESPIRATORY: Scattered congestion in anterior lung jacobson. No accessory muscle use. GASTROINTESTINAL: Abdomen soft, tenderness around the PEG tube, nondistended, normal active bowel sounds MUSCULOSKELETAL: No cyanosis, or edema. Contracture present left upper extremity <Khalida Laura - Last Filed: 01/09/18 14:04> Vital signs: Vital Signs 01/11/18 12:00 01/11/18 16:00 Temperature 98.3 F 98.1 F Pulse Rate 84 84 Respiratory Rate 20 20 Blood Pressure 109/58 L 110/66 Pulse Oximetry 99 99 Intake & Output 01/11/18 01/12/18 01/12/18 18:59 06:59 18:59 Intake Total 0 / 0 Balance 0 / 0 Intake: Oral 0 / 0 Other: # Voids 1 # Bowel Movements 1 <Lizeth Bell - Last Filed: 01/12/18 11:04> Assessment and Plan - Assessment (1) End stage renal disease on dialysis Code(s): N18.6 - End stage renal disease; Z99.2 - Dependence on renal dialysis Status: Acute Plan: ESRD TTS Hypokalemia, replacement given. Continue HD - plan next HD tomorrow (2) Diabetes Code(s): E11.9 - Type 2 diabetes mellitus without complications Status: Chronic Qualifiers: Diabetes mellitus type: type 2 Chronic kidney disease stage: on chronic dialysis Plan: Well controlled, recommend to maintain blood sugars between 140 mg/dl to 180 mg/ dl (3) Anemia Code(s): D64.9 - Anemia, unspecified Status: Acute Plan: HGB stable, Epogen with dialysis <Khalida Laura - Last Filed: 01/09/18 14:04> - Assessment (1) End stage renal disease on dialysis Code(s): N18.6 - End stage renal disease; Z99.2 - Dependence on renal dialysis Status: Acute Plan: Patient seen and examined, agree with above. HD will be again tomorrow, Remove fluid as tolerated. Pulmonary following. (2) Diabetes Code(s): E11.9 - Type 2 diabetes mellitus without complications Status: Chronic Qualifiers: Diabetes mellitus type: type 2 Chronic kidney disease stage: on chronic dialysis (3) Anemia Code(s): D64.9 - Anemia, unspecified Status: Acute (4) Dysphagia Code(s): R13.10 - Dysphagia, unspecified Status: Acute <Lizeth Bell - Last Filed: 01/12/18 11:04>
[2018-01-09] MEDS: Pantoprazole Inj 40 MG Vial IV.PUSH SCH ×2 (09:40→21:21)
--- NOTE | 2018-01-09 09:47 | P.PN ---
Subjective Interval history: Patient is bed he appears very weak and tired. He still has some pain at the feeding tube site. He is also noted with severe hypokalemia and potassium is replaced by the PEG tube. No fever or chills no nausea or vomiting. Passing gas. No palpitations. Physical Exam Vital signs: Vital Signs 01/08/18 12:00 01/08/18 16:00 01/08/18 19:55 Temperature 98.4 F 97.3 F L Pulse Rate 83 84 Respiratory Rate 17 16 Blood Pressure 91/54 L 95/52 L Pulse Oximetry 95 95 95 01/08/18 20:00 01/08/18 21:12 01/09/18 00:00 Temperature 98.6 F Pulse Rate 92 H 87 Respiratory Rate 16 19 16 Blood Pressure 105/60 Pulse Oximetry 95 01/09/18 00:32 01/09/18 04:00 01/09/18 04:24 Temperature 98.2 F 98.3 F Pulse Rate 94 H 82 Respiratory Rate 19 17 16 Blood Pressure 100/57 L 101/56 L Pulse Oximetry 94 L 94 L 01/09/18 08:00 Temperature 97.4 F L Pulse Rate 82 Respiratory Rate 16 Blood Pressure 104/70 Pulse Oximetry 94 L Intake & Output 01/08/18 01/09/18 01/09/18 18:59 06:59 18:59 Intake Total 1000 / 1000 Balance 1000 / 1000 Weight 77.7 kg Intake: IV 1000 / 1000 D5W/1/2 NS Inj 1,000 ML @ 42 1000 / 1000 mls/hr IV.CONT .[id number] [facility] Rx# :[id number] Oral 0 / 0 Other: # Incontinent Voids 1 Date of Last Bowel Movement 01/07/18 Narrative: GENERAL: 62 yo female, more awake and alert, chronically ill, appears weak. SKIN: Warm and dry. No rashes NECK: Supple, trachea midline. No JVD. CARDIOVASCULAR: Regular rate and rhythm. No murmurs, gallops, or rubs. AVF in left upper leg with positive thrill and bruit. RESPIRATORY: Scattered congestion in anterior lung jacobson. No accessory muscle use. GASTROINTESTINAL: Abdomen soft, tenderness around the PEG tube, nondistended, normal active bowel sounds MUSCULOSKELETAL: No cyanosis, or edema. Contracture present left upper extremity Results - Labs CBC & Chem 7: 01/09/18 06:53 11/12/18 06:53 Laboratory Results - last 24 hr 01/08/18 01/08/18 01/08/18 11:10 16:42 19:32 POC Glucose 137 H 189 H 245 H 01/08/18 01/09/18 01/09/18 23:33 03:48 07:46 POC Glucose 157 H 236 H 229 H - Imaging Impressions Abdomen X-Ray 01/08/18 00:00 CONCLUSION: Negative examination. Assessment and Plan - Plan 62 yo M with ESRD and significant nausea/vomiting, found to have esophageal cyst on imaging, who presents with acute hypotension and altered mentation. Altered mental status, resolving Acute metabolic encephalopathy combined with psychiatric history Patient has a history of bipolar disorder, Paranoid schizophrenia, Depression, insomnia, narcotic drug abuse Continue risperidone, trazodone, escitalopram, lamotrigine, gabapentin, tramadol Patient has a psych affect but is otherwise mentally clear, conversive, oriented to self/place/month/year Appears at baseline Severe sepsis, pneumonia, respiratory failure, resolving Lactic acidosis on admission Patient required norepinephrine drip and midodrine but has now stabilized Blood cultures and sputum culture with NGTD Received 2 weeks of IV antibiotics with Vanco/Zosyn from 12/24 to 01/06, will discontinue today 01/06 Continue duo nebs as needed continue incentive spirometry and aggressive pulmonary toileting Symptoms improved, sepsis resolved, monitor off antibiotics Dysphagia Unable to swallow food or drink without cough/choking NPO for now, tube feeds only, speech therapy following as well Convert necessary meds to IV Patient has failed multiple repeat swallow evaluations, agrees with PEG IR consulted for PEG tube placement on 01/06 Dietitian consulted for tube feed recommendations DC IVF with D5 1/2NS and started tube feeds PEG placed 01/06. Will do KUB, patient complains of abdominal pain. So far tolerates feeding tubes. Severe hypokalemia potassium at 2.7. Replace potassium check magnesium and phosphorus patient possible with refeeding syndrome. We will monitor electrolytes and replace as needed H/o chronic diastolic heart failure At this time patient has a history of hypertension, orthostatic hypotension, peripheral vascular disease Recent echocardiogram showed ejection fraction of 60-65% Continue pravastatin Stable Gastroesophageal reflux disease History of esophagitis and colonic polyps/hiatal hernia s/p EGD LA class D esophagitis and hiatal hernia. Continue pantoprazole 40 mg twice daily Type 2 diabetes Accu-Cheks with sliding scale insulin coverage Levemir added End-stage renal disease on hemodialysis Tuesday//Tuesday Continue scheduled hemodialysis per nephrology Appreciate nephrology consult Secondary hyperparathyroidism Continue Sevelamer 2.4 g 3 times a day for hyperphosphatemia Continue cinacalcet 30 mg daily for secondary hyperparathyroidism Above po meds on hold until PEG placed Monitor BMP Chronic contractures left upper and lower extremities Continue physical therapy Appreciate wound care consult Hypokalemia K 2.6 on 01/05, likely secondary to npo Give IV KCl replacement Repeat K 3.7, resolved Monitor BMP DVT Prophylaxis Holding heparin sq until after PEG placement Discharge planning Patient will need SNF rehab placement Had PEG tube placed 01/06 With severe electrolytes abnormalities possible with refeeding syndrome. Will check lites and replace
[2018-01-09 09:51] LABS: Baso # (Auto) 0.1 th/mm3 (0.0-0.2); Baso % (Auto) 1.2 % (0.0-2.0); Eos # (Auto) 0.2 th/mm3 (0.0-0.4); Eos % (Auto) 3.3 % (0.0-4.0); Hematocrit 27.8 % (39.0-51.0); Hemoglobin 8.8 gm/dL (13.0-17.0); Lymph # (Auto) 1.4 th/mm3 (1.0-4.8); Lymph % (Auto) 23.9 % (9.0-44.0); Mean Corpuscular HGB Conc 31.6 % (32.0-36.0); Mean Corpuscular Hemoglobin 28.7 pg (27.0-34.0); Mean Corpuscular Volume 90.9 fL (80.0-100.0); Mean Platelet Volume 8.8 fL (7.0-11.0); Mono # (Auto) 0.4 th/mm3 (0.0-0.9); Mono % (Auto) 7.1 % (0.0-8.0); Neut # (Auto) 3.7 th/mm3 (1.8-7.7); Neut % (Auto) 64.5 % (16.0-70.0); Platelet Count 231 th/mm3 (150-450); Red Blood Count 3.06 mil/mm3 (4.50-5.90); Red Cell Distribution Width 19.9 % (11.6-17.2); White Blood Count 5.7 th/mm3 (4.0-11.0)
[2018-01-09 10:36] LABS: Calcium 8.9 mg/dL (8.5-10.1); Carbon Dioxide 30.2 meq/L (21.0-32.0)
[2018-01-09 10:40] LABS: Potassium 2.7 meq/L (3.5-5.1)
[2018-01-09] MEDS ORDERED: Magnesium Oxide 400 MG Tablet PO ONE (14:30)
[2018-01-10] MEDS: Insulin NovoLIN Regular Correctional Sugar Inj SQ SCH ×5 (05:09→22:06)
[2018-01-10 05:38] LABS: Calcium 8.7 mg/dL (8.5-10.1); Carbon Dioxide 30.8 meq/L (21.0-32.0); Magnesium 2.3 mg/dL (1.5-2.5); Phosphorus 2.8 mg/dL (2.5-4.9); Potassium 3.7 meq/L (3.5-5.1)
[2018-01-10] MEDS: Pantoprazole Inj 40 MG Vial IV.PUSH SCH ×2 (08:45→22:07)
--- NOTE | 2018-01-10 14:49 | P.PNNP ---
Subjective Interval history: Seen in AM during Hemodialysis, tolerating well. Hypokalemia has resolved. <Khalida Laura - Last Filed: 01/10/18 14:42> Physical Exam Vital signs: Vital Signs 01/09/18 16:00 01/09/18 19:35 01/09/18 20:00 Temperature 97.2 F L 98.8 F Pulse Rate 77 83 Respiratory Rate 18 16 Blood Pressure 153/87 H 96/57 L Pulse Oximetry 97 98 95 01/10/18 00:00 01/10/18 04:00 01/10/18 08:00 Temperature 98.2 F 98.2 F 97.9 F Pulse Rate 81 77 80 Respiratory Rate 14 14 16 Blood Pressure 103/74 97/67 L 109/60 Pulse Oximetry 97 92 L 98 01/10/18 10:49 Temperature Pulse Rate Respiratory Rate Blood Pressure Pulse Oximetry 98 Intake & Output 01/09/18 01/10/18 01/10/18 18:59 06:59 18:59 Intake Total 500 / 500 Output Total 1999 Balance 500 / 500 -1999 Weight 77.2 kg Intake: IV 500 / 500 D5W/1/2 NS Inj 1,000 ML @ 42 500 / 500 mls/hr IV.CONT .[id number] [facility] Rx# :[id number] Output: Hemodialysis Amount 1999 Other: Date of Last Bowel Movement 01/07/18 # Incontinent Bowel Movements 2 Narrative: GENERAL: Awake and oriented. SKIN: Warm and dry. No rashes NECK: Supple, trachea midline. No JVD. CARDIOVASCULAR: Regular rate and rhythm. No murmurs, gallops, or rubs. AVF in left upper leg with positive thrill and bruit. RESPIRATORY: Scattered congestion in anterior lung jacobson. No accessory muscle use. GASTROINTESTINAL: Abdomen soft, tenderness around the PEG tube, nondistended, normal active bowel sounds MUSCULOSKELETAL: No cyanosis, or edema. Contracture present left upper extremity <Khalida Laura - Last Filed: 01/10/18 14:42> Vital signs: Vital Signs 01/11/18 12:00 01/11/18 16:00 Temperature 98.3 F 98.1 F Pulse Rate 84 84 Respiratory Rate 20 20 Blood Pressure 109/58 L 110/66 Pulse Oximetry 99 99 Intake & Output 01/11/18 01/12/1801/12/18 18:59 06:59 18:59 Intake Total 0 / 0 Balance 0 / 0 Intake: Oral 0 / 0 Other: # Voids 1 # Bowel Movements 1 <Lizeth Bell - Last Filed: 01/12/18 11:30> Assessment and Plan - Assessment (1) End stage renal disease on dialysis Code(s): N18.6 - End stage renal disease; Z99.2 - Dependence on renal dialysis Status: Acute Plan: ESRD TTS Hypokalemia, resolved. Sensipar and gabapentin resumed. Hemodialysis today tolerating well. (2) Diabetes Code(s): E11.9 - Type 2 diabetes mellitus without complications Status: Chronic Qualifiers: Diabetes mellitus type: type 2 Chronic kidney disease stage: on chronic dialysis Plan: Well controlled, recommend to maintain blood sugars between 140 mg/dl to 180 mg/ dl (3) Anemia Code(s): D64.9 - Anemia, unspecified Status: Acute Plan: HGB stable, Epogen with dialysis (4) Dysphagia Code(s): R13.10 - Dysphagia, unspecified Status: Acute Plan: On tube feeding per peg tube tolerating well. <Khalida Laura - Last Filed: 01/10/18 14:42> - Assessment (1) End stage renal disease on dialysis Code(s): N18.6 - End stage renal disease; Z99.2 - Dependence on renal dialysis Status: Acute Plan: Patient seen and examined, agree with above. Continue HD as schedule. Post PEG insertion. (2) Diabetes Code(s): E11.9 - Type 2 diabetes mellitus without complications Status: Chronic Qualifiers: Diabetes mellitus type: type 2 Chronic kidney disease stage: on chronic dialysis (3) Anemia Code(s): D64.9 - Anemia, unspecified Status: Acute (4) Dysphagia Code(s): R13.10 - Dysphagia, unspecified Status: Acute <Lizeth Bell - Last Filed: 01/12/18 11:30>
--- NOTE | 2018-01-10 15:12 | P.PN ---
Subjective Interval history: The patient is in bed he was seen after dialysis today. Says he still has abdominal pain at the site of the PEG tube. He also says did not have a bowel movement and he feels bloated. No nausea or vomiting. He feels very tired. No fever or chills. Physical Exam Vital signs: Vital Signs 01/09/18 16:00 01/09/18 19:35 01/09/18 20:00 Temperature 97.2 F L 98.8 F Pulse Rate 77 83 Respiratory Rate 18 16 Blood Pressure 153/87 H 96/57 L Pulse Oximetry 97 98 95 01/10/18 00:00 01/10/18 04:00 01/10/18 08:00 Temperature 98.2 F 98.2 F 97.9 F Pulse Rate 81 77 80 Respiratory Rate 14 14 16 Blood Pressure 103/74 97/67 L 109/60 Pulse Oximetry 97 92 L 98 01/10/18 10:49 Temperature Pulse Rate Respiratory Rate Blood Pressure Pulse Oximetry 98 Intake & Output 01/09/18 01/10/18 01/10/18 18:59 06:59 18:59 Intake Total 500 / 500 Output Total 1999 Balance 500 / 500 -1999 Weight 77.2 kg Intake: IV 500 / 500 D5W/1/2 NS Inj 1,000 ML @ 42 500 / 500 mls/hr IV.CONT .[id number] [facility] Rx# :[id number] Output: Hemodialysis Amount 1999 Other: Date of Last Bowel Movement 01/07/18 # Incontinent Bowel Movements 2 Narrative: GENERAL: Awake and oriented. SKIN: Warm and dry. No rashes NECK: Supple, trachea midline. No JVD. CARDIOVASCULAR: Regular rate and rhythm. No murmurs, gallops, or rubs. AVF in left upper leg with positive thrill and bruit. RESPIRATORY: Scattered congestion in anterior lung jacobson. No accessory muscle use. GASTROINTESTINAL: Abdomen soft, tenderness around the PEG tube, nondistended, normal active bowel sounds MUSCULOSKELETAL: No cyanosis, or edema. Contracture present left upper extremity Results - Labs CBC & Chem 7: 01/09/18 06:53 01/10/18 04:33 Laboratory Results - last 24 hr 01/09/18 01/09/18 01/09/18 16:23 20:35 23:26 Sodium Potassium Chloride Carbon Dioxide Anion Gap BUN Creatinine Estimated GFR POC Glucose 123 H 245 H 220 H Random Glucose Calcium Phosphorus Magnesium 01/10/18 01/10/18 01/10/18 04:33 05:08 08:11 Sodium 140 Potassium 3.7 D Chloride 100 Carbon Dioxide 30.8 Anion Gap 9 BUN 36 H Creatinine 8.30 H Estimated GFR 8 L POC Glucose 130 H 203 H Random Glucose 104 Calcium 8.7 Phosphorus 2.8 Magnesium 2.3 01/10/18 11:31 Sodium Potassium Chloride Carbon Dioxide Anion Gap BUN Creatinine Estimated GFR POC Glucose 134 H Random Glucose Calcium Phosphorus Magnesium Assessment and Plan - Plan 62 yo M with ESRD and significant nausea/vomiting, found to have esophageal cyst on imaging, who presents with acute hypotension and altered mentation. Altered mental status, resolving Acute metabolic encephalopathy combined with psychiatric history Patient has a history of bipolar disorder, Paranoid schizophrenia, Depression, insomnia, narcotic drug abuse Continue risperidone, trazodone, escitalopram, lamotrigine, gabapentin, tramadol Patient has a psych affect but is otherwise mentally clear, conversive, oriented to self/place/month/year Appears at baseline Severe sepsis, pneumonia, respiratory failure, resolving Lactic acidosis on admission Patient required norepinephrine drip and midodrine but has now stabilized Blood cultures and sputum culture with NGTD Received 2 weeks of IV antibiotics with Vanco/Zosyn from 12/24 to 01/06, will discontinue today 01/06 Continue duo nebs as needed continue incentive spirometry and aggressive pulmonary toileting Symptoms improved, sepsis resolved, monitor off antibiotics Dysphagia Unable to swallow food or drink without cough/choking NPO for now, tube feeds only, speech therapy following as well Convert necessary meds to IV Patient has failed multiple repeat swallow evaluations, agrees with PEG IR consulted for PEG tube placement on 01/06 Dietitian consulted for tube feed recommendations DC IVF with D5 1/2NS and started tube feeds PEG placed 01/06. Will do KUB, patient complains of abdominal pain. So far tolerates feeding tubes. Severe hypokalemia potassium at 2.7. Replace potassium check magnesium and phosphorus patient possible with refeeding syndrome. We will monitor electrolytes and replace as needed Noted with severe electrolytes abnormalities after tube feedings started, possible with refeeding syndrome. Lites replaced, continue to monitor. H/o chronic diastolic heart failure At this time patient has a history of hypertension, orthostatic hypotension, peripheral vascular disease Recent echocardiogram showed ejection fraction of 60-65% Continue pravastatin Stable Gastroesophageal reflux disease History of esophagitis and colonic polyps/hiatal hernia s/p EGD LA class D esophagitis and hiatal hernia. 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 Lites replaced, continue to monitor. Also has constipation will starts stool softeners/laxatives. Poss DC tomorrow to snf Discussed with the patient, nurse
--- NOTE | 2018-01-10 15:23 | P.DS ---
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 Patient had 4.8L of fluid removed. Patient is not a very good historian and after answering some of my questions he states "I don't want to talk anymore". He does relay that he developed burning retrosternal chest pain with radiation into the left arm with associated dyspnea and nausea. He states he has been experiencing this pain multiple times per day. He says it is worse after meals. He says he frequently vomits after eating. He says his chest pain today improved after receiving a Nitro. In the ED, patient was tachycardic and hypoxic with elevated d-dimer of 4.40. CTA showed abnormal appearance of the esophagus and no evidence of PE. Per the ED, patient had an episode of projectile vomiting. He was found to have mild leukocytosis with white count 12.6. He is tachycardic with heart rate low 100s. Chemistry panel significant for hyponatremia with sodium of 135. He also has slight anion gap of 16. BUN is 33 and creatinine is 6.83. He is also has poorly controlled blood sugar of 302. Beta hydroxybutyrate acid is elevated 1.73. CT of abdomen pelvis shows diffuse hepatic fatty infiltration, markedly atrophied kidneys, series of stents traversing the left external iliac vein and left SFV and 5 cm cystic structure possibly within the wall of the distal esophagus. Initial troponin is 0.03 and repeat troponin level pending. EKG shows no ischemic changes. DS: Diagnosis - Discharge Diagnosis (1) Aspiration pneumonia of both lungs Status: Acute (2) End stage renal disease on dialysis Status: Acute (3) Diabetes Status: Chronic (4) Syncope Status: Acute (5) Chest pain Status: Acute (6) Nausea and vomiting Status: Acute (7) Anemia Status: Acute (8) Hypotension Status: Acute DS: Medications - Discharge Medications Prescriptions: tramadol 50 mg PO Q6H PRN #7 tab PRN Reason: Pain DS: Summary Hospital Course: 62 yo M with ESRD and significant nausea/vomiting, found to have esophageal cyst on imaging, who presents with acute hypotension and altered mentation. Altered mental status, resolved . At baseline Acute metabolic encephalopathy combined with psychiatric history Patient has a history of bipolar disorder, Paranoid schizophrenia, Depression, insomnia, narcotic drug abuse Continue risperidone, trazodone, escitalopram, lamotrigine, gabapentin, tramadol Patient has a psych affect but is otherwise mentally clear, conversive, oriented to self/place/month/year Appears at baseline Severe sepsis, pneumonia, respiratory failure, resolved Lactic acidosis on admission Patient required norepinephrine drip and midodrine but has now stabilized Blood cultures and sputum culture with NGTD Received 2 weeks of IV antibiotics with Vanco/Zosyn from 12/24 to 01/06, discontinued 01/06 Continue duo nebs as needed continue incentive spirometry and aggressive pulmonary toileting Symptoms improved, sepsis resolved, monitor off antibiotics Dysphagia Unable to swallow food or drink without cough/choking NPO for now, tube feeds only, speech therapy following as well Convert necessary meds to IV Patient has failed multiple repeat swallow evaluations, agrees with PEG IR consulted for PEG tube placement on 01/06 Dietitian consulted for tube feed recommendations DC IVF with D5 1/2NS and started tube feeds PEG placed 01/06. Will do KUB, patient complains of abdominal pain. So far tolerates feeding tubes. Severe hypokalemia potassium at 2.7. Replace potassium check magnesium and phosphorus patient possible with refeeding syndrome. We will monitor electrolytes and replace as needed Noted with severe electrolytes abnormalities after tube feedings started, possible with refeeding syndrome. Lites replaced, continue to monitor. H/o chronic diastolic heart failure At this time patient has a history of hypertension, orthostatic hypotension, peripheral vascular disease Recent echocardiogram showed ejection fraction of 60-65% Continue pravastatin Stable Gastroesophageal reflux disease History of esophagitis and colonic polyps/hiatal hernia s/p EGD LA class D esophagitis and hiatal hernia. 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 Lites replaced, continue to monitor. Also has constipation will starts stool softeners/laxatives. Improving DC to SNF in stable condition to follow up as OP with PCP and consultants. [facility] Prescription Drug Monitoring Database has been queried and verified prior to prescribing the controlled substance. Acute pain exception. This patient has normal, predicted, physiological, and time limited response to an adverse mechanical stimulus associated with surgery, trauma, or acute illness as described in my notes. There is a lack of alternative treatment options other than to include the prescribed narcotic treatment for this condition. - Time Spent with Patient Total time spent providing and/or coordinating discharge services: Greater than 30 minutes - Quality: VTE Deep Vein Thrombosis/Pulmonary Embolism Present on Admission: No Exam Vital signs: Vital Signs 01/09/18 16:00 01/09/18 19:35 01/09/18 20:00 Temperature 97.2 F L 98.8 F Pulse Rate 77 83 Respiratory Rate 18 16 Blood Pressure 153/87 H 96/57 L Pulse Oximetry 97 98 95 01/10/18 00:00 01/10/18 04:00 01/10/18 08:00 Temperature 98.2 F 98.2 F 97.9 F Pulse Rate 81 77 80 Respiratory Rate 14 14 16 Blood Pressure 103/74 97/67 L 109/60 Pulse Oximetry 97 92 L 98 01/10/18 10:49 Temperature Pulse Rate Respiratory Rate Blood Pressure Pulse Oximetry 98 Intake & Output 01/09/18 01/10/18 01/10/18 18:59 06:59 18:59 Intake Total 500 / 500 Output Total 1999 Balance 500 / 500 -1999 Weight 77.2 kg Intake: IV 500 / 500 D5W/1/2 NS Inj 1,000 ML @ 42 500 / 500 mls/hr IV.CONT .[id number] [facility] Rx# :[id number] Output: Hemodialysis Amount 1999 Other: Date of Last Bowel Movement 01/07/18 # Incontinent Bowel Movements 2 Narrative: GENERAL: Awake and oriented. SKIN: Warm and dry. No rashes NECK: Supple, trachea midline. No JVD. CARDIOVASCULAR: Regular rate and rhythm. No murmurs, gallops, or rubs. AVF in left upper leg with positive thrill and bruit. RESPIRATORY: Scattered congestion in anterior lung jacobson. No accessory muscle use. GASTROINTESTINAL: Abdomen soft, tenderness around the PEG tube, nondistended, normal active bowel sounds MUSCULOSKELETAL: No cyanosis, or edema. Contracture present left upper extremity Results Procedures completed during hospitalization: PEG tube placement Completed studies during hospitalization: Pending at discharge 12/24/17 07:52 Surgical [PTH] Routine Labs on day of discharge: Labs from last 24 hours 01/10/18 01/10/18 01/10/18 11:31 08:11 05:08 Sodium Potassium Chloride Carbon Dioxide Anion Gap BUN Creatinine Estimated GFR POC Glucose 134 H 203 H 130 H Random Glucose Calcium Phosphorus Magnesium 01/10/18 01/09/18 01/09/18 04:33 23:26 20:35 Sodium 140 Potassium 3.7 D Chloride 100 Carbon Dioxide 30.8 Anion Gap 9 BUN 36 H Creatinine 8.30 H Estimated GFR 8 L POC Glucose 220 H 245 H Random Glucose 104 Calcium 8.7 Phosphorus 2.8 Magnesium 2.3 01/09/18 16:23 Sodium Potassium Chloride Carbon Dioxide Anion Gap BUN Creatinine Estimated GFR POC Glucose 123 H Random Glucose Calcium Phosphorus Magnesium - Impressions ITS Impressions Chest CTA 12/22/17 12:38 CONCLUSION: 1. No evidence of pulmonary embolism 2. Abnormal appearance of the esophagus Abdomen/Pelvis CT 12/22/17 15:37 CONCLUSION: 1. Diffuse hepatic fatty infiltration. 2. 5 cm cystic structure possibly within the wall of the distal esophagus. Initially I thought this represented a paraesophageal hernia difficult to identify a communication to the lumen of the gastric cardia. 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 I do not believe that there is compromise of the esophageal lumen, however. Endoscopy or upper GI could be performed for further characterization. 3. Both kidneys are markedly atrophic. 4. Series of stents traversing the left external iliac vein and left SFV. Chest X-Ray 12/30/17 11:38 CONCLUSION: Stable chest. Gastrostomy Tube Placement 01/06/18 00:00 CONCLUSION: 1. Uncomplicated gastrostomy tube placement as above. Abdomen X-Ray 01/08/18 00:00 CONCLUSION: Negative examination. Discharge Plan - Discharge Disposition Patient Disposition: 03 Discharge to SNF - Discharge Condition Condition: Stable - Discharge Order Discharge Orders: Discharge Order (Routine); Ordered 01/11/18 Ordered By: Verito Madrid - Discharge Details Anticipated Discharge Date: 01/11/18 - Physicians Team Primary Care Provider: UNKNOWN, Attending Provider: Verito Madrid Other Providers: Sarwat Rain MD ; Lizeth Bell MD ; Rehab,[facility] ; Alvaro Wellington MD
[2018-01-10] MEDS: Gabapentin 100 MG Capsule PO SCH (22:07)
[2018-01-11] MEDS: Insulin NovoLIN Regular Correctional Sugar Inj SQ SCH ×4 (00:14→12:10)
[2018-01-11 06:44] LABS: Calcium 8.9 mg/dL (8.5-10.1); Carbon Dioxide 29.7 meq/L (21.0-32.0); Magnesium 2.3 mg/dL (1.5-2.5); Phosphorus 2.7 mg/dL (2.5-4.9); Potassium 3.8 meq/L (3.5-5.1)
[2018-01-11] MEDS: Pantoprazole Inj 40 MG Vial IV.PUSH SCH (09:07)
[2018-01-11 10:14] VITALS: RESP 20
--- NOTE | 2018-01-11 11:37 | P.PNNP ---
Subjective Interval history: Hemodialysis yesterday tolerated well. Discharge planned for today. <Khalida Laura - Last Filed: 01/11/18 17:29> Physical Exam Vital signs: Vital Signs 01/10/18 12:00 01/10/18 15:30 01/10/18 16:00 Temperature 98.8 F Pulse Rate 77 88 87 Respiratory Rate 16 Blood Pressure 104/57 L Pulse Oximetry 97 01/10/18 20:00 01/10/18 20:02 01/10/18 23:55 Temperature 98.4 F Pulse Rate 83 82 81 Respiratory Rate 16 Blood Pressure 100/63 Pulse Oximetry 100 01/11/18 00:00 01/11/18 03:55 01/11/18 05:30 Temperature 97.8 F 97.8 F Pulse Rate 117 H 79 80 Respiratory Rate 16 16 Blood Pressure 117/79 97/63 L Pulse Oximetry 94 L 91 L 01/11/18 08:00 01/11/18 10:32 Temperature 97.8 F Pulse Rate 88 Respiratory Rate 20 Blood Pressure 99/60 L Pulse Oximetry 99 97 Intake & Output 01/10/18 01/11/18 01/11/18 18:59 06:59 18:59 Intake Total 381 / 381 Output Total 1999 Balance -1999 381 / 381 Weight 75.4 kg Intake: Oral 0 / 0 Tube Feeding 381 / 381 Output: Hemodialysis Amount 1999 Other: # Voids 0 Date of Last Bowel Movement 01/11/18 # Bowel Movements 1 # Incontinent Bowel Movements 2 Narrative: GENERAL: Awake and oriented. SKIN: Warm and dry. No rashes NECK: Supple, trachea midline. No JVD. CARDIOVASCULAR: Regular rate and rhythm. No murmurs, gallops, or rubs. AVF in left upper leg with positive thrill and bruit. RESPIRATORY: Scattered congestion in anterior lung jacobson. No accessory muscle use. GASTROINTESTINAL: Abdomen soft, tenderness around the PEG tube, nondistended, normal active bowel sounds MUSCULOSKELETAL: No cyanosis, or edema. Contracture present left upper extremity <Khalida Laura - Last Filed: 01/11/18 17:29> Vital signs: Vital Signs 01/11/18 12:00 01/11/18 16:00 Temperature 98.3 F 98.1 F Pulse Rate 84 84 Respiratory Rate 20 20 Blood Pressure 109/58 L 110/66 Pulse Oximetry 99 99 Intake & Output 01/11/18 01/12/18 01/12/18 18:59 06:59 18:59 Intake Total 0 / 0 Balance 0 / 0 Intake: Oral 0 / 0 Other: # Voids 1 # Bowel Movements 1 <Lizeth Bell - Last Filed: 01/12/18 11:55> Assessment and Plan - Assessment (1) End stage renal disease on dialysis Code(s): N18.6 - End stage renal disease; Z99.2 - Dependence on renal dialysis Status: Acute Plan: ESRD hemodialysis yesterday tolerated well, with removal of 2 liters of fluid. (2) Diabetes Code(s): E11.9 - Type 2 diabetes mellitus without complications Status: Chronic Qualifiers: Diabetes mellitus type: type 2 Chronic kidney disease stage: on chronic dialysis Plan: Well controlled, recommend to maintain blood sugars between 140 mg/dl to 180 mg/ dl (3) Anemia Code(s): D64.9 - Anemia, unspecified Status: Acute Plan: HGB stable, Epogen with dialysis (4) Dysphagia Code(s): R13.10 - Dysphagia, unspecified Status: Acute Plan: On tube feeding per peg tube tolerating well. <Khalida Laura - Last Filed: 01/11/18 17:29> - Assessment (1) End stage renal disease on dialysis Code(s): N18.6 - End stage renal disease; Z99.2 - Dependence on renal dialysis Status: Acute Plan: Patient seen and examined, agree with above. On PEG feeding. HD will be in AM. Possible D/C. (2) Diabetes Code(s): E11.9 - Type 2 diabetes mellitus without complications Status: Chronic Qualifiers: Diabetes mellitus type: type 2 Chronic kidney disease stage: on chronic dialysis (3) Anemia Code(s): D64.9 - Anemia, unspecified Status: Acute (4) Dysphagia Code(s): R13.10 - Dysphagia, unspecified Status: Acute <Lizeth Bell - Last Filed: 01/12/18 11:55>
[2018-01-11 13:34] VITALS: PULSE 84; O2SAT 99
[2018-01-11 18:19] VITALS: BP 110/66; TEMP 98.1
== END 2018-01-11 16:12 ==
LOC: NEDA 11:11 → NEPC 11:11 → NEPGCP 18:29 → HIMC 12-23 11:35 → N04 12-30 15:44
PROVIDERS: ADMIT Hospitalist; ATTEND Hospitalist
PROC: PANENDO (2017-12-24 11:05)

== ENCOUNTER 2018-01-24 23:06 | Observation (INO) ==
[2018-01-24] MEDS ORDERED: Morphine Inj 4 MG/ML Vial IV.PUSH ONE (23:41)
--- NOTE | 2018-01-24 23:56 | ED ---
HPI General Chief complaint: GI Bleed Stated complaint: resp Time Seen by Provider: 01/24/18 23:15 History of Present Illness HPI narrative: 62 y/o male with h/o chronic kidney disease on dialysis (last session today), insulin-dependant diabetes, hypertension, CVA with left sided paralysis, and esophagitis s/p peg tube placement presents to the ED today from SNF after he vomited 3 times while receiving his tube feeding while lying down. SNF also reports low H&H and positive guac with dark stools. Pt reports mild dyspnea and productive cough with yellow phelgm for 2 days. He also reports upper abdominal pain, distention, and diarrhea for 3 days. He denies any chest pain, palpitations, diaphoresis, fever, or chills. He denies noticing any blood in vomitus or phlegm. He denies any recent antibiotic use. He reports he was feeling fine up until symptoms began 3 days ago. Related Data Home Medications Medication Instructions Recorded Confirmed ascorbic acid (vitamin C) [Vitamin 500 mg FEEDING TUBE BID 09/14/17 01/25/18 C] bisacodyl 5 mg FEEDING TUBE TID PRN 09/14/17 01/25/18 cinacalcet [Sensipar] 30 mg PO DAILY 09/14/17 01/25/18 escitalopram oxalate 10 mg FEEDING TUBE DAILY 09/14/17 01/25/18 gabapentin 200 mg FEEDING TUBE HS 09/14/17 01/25/18 hydroxyzine HCl 25 mg FEEDING TUBE TID-QID PRN 09/14/17 01/25/18 lamotrigine [Lamictal] 200 mg PO HS 09/14/17 01/25/18 mirtazapine 15 mg FEEDING TUBE HS 09/14/17 01/25/18 multivitamin 1 tab FEEDING TUBE DAILY 09/14/17 01/25/18 omeprazole 20 mg FEEDING TUBE DAILY 09/14/17 01/25/18 ondansetron HCl [Zofran] 8 mg FEEDING TUBE Q6HR PRN 09/14/17 01/25/18 polyethylene glycol 3350 17 g FEEDING TUBE DAILY 09/14/17 01/25/18 risperidone 0.5 mg FEEDING TUBE BID 09/14/17 01/25/18 sevelamer carbonate [Renvela] 2,400 mg FEEDING TUBE AC 09/14/17 01/25/18 tamsulosin [Flomax] 0.4 mg PO HS 09/14/17 01/25/18 trazodone 150 mg FEEDING TUBE HS 09/14/17 01/25/18 ferrous sulfate 325 mg PO TID 11/18/17 01/25/18 insulin glargine [Lantus U-100 10 unit SUB-Q DAILY 11/18/17 01/25/18 Insulin] lovastatin 20 mg FEEDING TUBE DAILY 11/18/17 01/25/18 midodrine 10 mg FEEDING TUBE TID 11/18/17 01/25/18 insulin aspart U-100 [Novolog 2 sliding scale dose SUBCUT UD 01/25/18 01/25/18 U-100 Insulin aspart] lactulose 30 ml FEEDING TUBE DAILY PRN 01/25/18 01/25/18 metoclopramide HCl 10 mg FEEDING TUBE TID 01/25/18 01/25/18 sennosides-docusate sodium [Senna 1 tab FEEDING TUBE BID 01/25/18 01/25/18 Plus] tramadol 50 mg FEEDING TUBE Q6H PRN 01/25/18 01/25/18 vancomycin 125 mg FEEDING TUBE QID 01/25/18 01/25/18 Previous Rx's Medication Instructions Recorded bisacodyl [Bisac-Evac] 10 mg PA DAILY PRN ea 09/22/17 Allergies Allergy/AdvReac Type Severity Reaction Status Date / Time methadone Allergy Severe Anaphylaxis Verified 01/24/18 23:08 acetaminophen Allergy Unknown Anaphylaxis Verified 01/24/18 23:08 propoxyphene Allergy Unknown Anaphylaxis Verified 01/24/18 23:08 Review of Systems Constitutional Denies chills, Denies fever(s) and Reports weakness ENT Denies sinus pain, Denies sinus pressure and Reports throat swelling Cardiovascular Denies chest pain, Denies irregular heart rhythm, Denies palpitations and Reports dyspnea Respiratory Reports cough, Denies hemoptysis and Reports dyspnea Gastrointestinal Reports bloating, Reports hematochezia, Reports diarrhea, Reports nausea, Reports vomiting and Denies hematemesis Musculoskeletal Denies myalgias and Denies arthralgias Neurologic Denies numbness, Denies tingling and Reports weakness PMFSH Social History Social History Substance History: No History of Abuse Second Hand Smoke Exposure: No Smoking Status: Former smoker How Often Do You Have a Drink Containing Alcohol: Never Recent Travel in [facility] within the Last 8 Weeks: No Recent Out of Country Travel within the Last 8 Weeks: No Immunization History Tetanus Immunization: Unsure Exam Narrative Exam Narrative: GENERAL: Uncomfortable appearing male in no acute distress HEENT: Conjunctiva nonerythematous and anicteric; Moist mucous membranes NECK: Supple, no JVD CARDIOVASCULAR: Distant heart sounds with regular rate and rhythm RESPIRATORY: Diminished breath sounds throughout ABDOMINAL: Soft, moderately distended abdomen with mild generalized tenderness to palpation. No rebound or guarding MSK: No peripheral edema or cyanosis NEURO: 0/5 muscle strength in left upper and lower extremites, no change from baseline per patient PSYCH: Awake, oriented x 3 but patient losing concentration intermittently during exam. Course Initial Documented Vital Signs Temperature 98.8 F 01/24/18 23:09 Pulse Rate 88 01/24/18 23:09 Respiratory Rate 14 01/24/18 23:09 Blood Pressure 107/64 01/24/18 23:09 Pulse Oximetry 97 01/24/18 23:09 Last Documented Vital Signs Temperature 98.8 F 01/24/18 23:09 Pulse Rate 71 01/25/18 06:43 Respiratory Rate 14 01/25/18 03:03 Blood Pressure 114/69 01/25/18 06:43 Pulse Oximetry 99 01/25/18 06:43 Medical Decision Making MDM Narrative Medical decision making narrative: 62 y/o male with h/o chronic kidney disease on dialysis (last session today), insulin-dependant diabetes, hypertension, CVA with left sided paralysis, and esophagitis s/p peg tube placement presents to the ED today from SNF after he vomited 3 times while receiving his tube feeding while lying down. He also c/o abdominal pain and distention for 3 days. On exam vital signs are unremarkable with O2 sat of 97 on nasal canula. Cardiopulmonary exam revealed distant heart sounds with no murmurs rubs or gallops and distant breath sounds throughout. Abdominal exam revealed diffuse tenderness to palpation, mild distension, and no rebound or guarding. Guac in ED was negative. CXR revealed no acute cardiopulmonary process; CMP revealed K of 2.8; CBC revealed Hgb 10.8. Hypokalemia was attempted to be corrected with potassium via PEG tube however patient immediately began to projectile vomit upon administration. Given Potassium IV. Given Compazine. Patient continues to have abdominal pain and vomiting. Vomit is coffee ground/red in color. Given protonix. Patient will be admitted for possible GI bleed and continued pain. Medical Screen Exam Complete: Yes Emergency Medical Condition: Yes Differential Diagnosis Differential Diagnosis: GI bleed vs gastritis vs obstruction Medical Records Medical records reviewed: Yes I reviewed the patient's medical records. Lab Data Lab results reviewed: Yes I reviewed the patient's lab results. Result diagrams: 01/25/18 00:04 01/25/18 00:04 Lab Results 01/25/18 01/25/18 01/25/18 Range/Units 00:04 00:04 00:04 WBC 9.6 (4.0-11.0) th/mm3 RBC 3.62 L (4.50-5.90) mil/mm3 Hgb 10.4 L (13.0-17.0) gm/dL Hct 32.0 L (39.0-51.0) % MCV 88.6 (80.0-100.0) fL MCH 28.9 (27.0-34.0) pg MCHC 32.6 (32.0-36.0) % RDW 18.0 H (11.6-17.2) % Plt Count 382 D (150-450) th/mm3 MPV 8.8 (7.0-11.0) fL Neut % (Auto) 82.6 H (16.0-70.0) % Lymph % (Auto) 10.0 (9.0-44.0) % [place] % (Auto) 6.2 (0.0-8.0) % Eos % (Auto) 0.4 (0.0-4.0) % Baso % (Auto) 0.8 (0.0-2.0) % Neut # (Auto) 7.9 H (1.8-7.7) th/mm3 Lymph # (Auto) 1.0 (1.0-4.8) th/mm3 [place] # (Auto) 0.6 (0.0-0.9) th/mm3 Eos # (Auto) 0.0 (0.0-0.4) th/mm3 Baso # (Auto) 0.1 (0.0-0.2) th/mm3 WBC Differential . Differential Comment Auto diff final PT 10.8 (9.8-11.6) sec INR 1.1 Ratio APTT 29.8 (23.4-31.7) sec Sodium 135 L (136-145) meq/L Potassium 2.8 L* (3.5-5.1) meq/L Chloride 93 L (98-107) meq/L Carbon Dioxide 36.4 H (21.0-32.0) meq/L Anion Gap 6 (5-15) meq/L BUN 15 (7-18) mg/dL Creatinine 5.11 H (0.60-1.30) mg/dL Estimated GFR 14 L (>89) mL/min Random Glucose 133 H (74-106) mg/dL Lactic Acid (0.4-2.0) mmol/L Calcium 9.2 (8.5-10.1) mg/dL Total Bilirubin 0.3 (0.2-1.0) mg/dL AST 20 (15-37) U/L ALT 16 (12-78) U/L Alkaline Phosphatase 151 H (45-117) U/L Total Protein 11.3 H (6.4-8.2) g/dL Albumin 3.7 (3.4-5.0) g/dL Lipase 168 (73-393) U/L 01/25/18 Range/Units 00:04 WBC (4.0-11.0) th/mm3 RBC (4.50-5.90) mil/mm3 Hgb (13.0-17.0) gm/dL Hct (39.0-51.0) % MCV (80.0-100.0) fL MCH (27.0-34.0) pg MCHC (32.0-36.0) % RDW (11.6-17.2) % Plt Count (150-450) th/mm3 MPV (7.0-11.0) fL Neut % (Auto) (16.0-70.0) % Lymph % (Auto) (9.0-44.0) % [place] % (Auto) (0.0-8.0) % Eos % (Auto) (0.0-4.0) % Baso % (Auto) (0.0-2.0) % Neut # (Auto) (1.8-7.7) th/mm3 Lymph # (Auto) (1.0-4.8) th/mm3 [place] # (Auto) (0.0-0.9) th/mm3 Eos # (Auto) (0.0-0.4) th/mm3 Baso # (Auto) (0.0-0.2) th/mm3 WBC Differential Differential Comment PT (9.8-11.6) sec INR Ratio APTT (23.4-31.7) sec Sodium (136-145) meq/L Potassium (3.5-5.1) meq/L Chloride (98-107) meq/L Carbon Dioxide (21.0-32.0) meq/L Anion Gap (5-15) meq/L BUN (7-18) mg/dL Creatinine (0.60-1.30) mg/dL Estimated GFR (>89) mL/min Random Glucose (74-106) mg/dL Lactic Acid 1.4 (0.4-2.0) mmol/L Calcium (8.5-10.1) mg/dL Total Bilirubin (0.2-1.0) mg/dL AST (15-37) U/L ALT (12-78) U/L Alkaline Phosphatase (45-117) U/L Total Protein (6.4-8.2) g/dL Albumin (3.4-5.0) g/dL Lipase (73-393) U/L Imaging Data Radiologist's impression: Chest X-Ray 01/24/18 23:44 CONCLUSION: Subsegmental basilar atelectasis or scarring. No significant effusion. No pneumothorax. Abdomen/Pelvis CT 01/25/18 00:00 CONCLUSION: 1. No acute findings. 2. 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 Gastrostomy tube present. Renal cortical atrophy. Discharge Plan Discharge Disposition Patient Disposition: 30 Still Patient Discharge Condition Condition: Stable Discharge Details Diagnosis: Coffee ground emesis Physicians Team ED Provider: Cori Villavicencio Primary Care Provider: Sharan Hill Rxs /Orders / Referrals /Forms Prescriptions: No Action insulin glargine [Lantus U-100 Insulin] 100 unit/mL Solution 10 unit SUB-Q DAILY RF: 0 ferrous sulfate 325 mg (65 mg iron) Tablet 325 mg PO TID RF: 0 lovastatin 20 mg Tablet 20 mg Feeding Tube DAILY RF: 0 midodrine 10 mg Tablet 10 mg Feeding Tube TID RF: 0 metoclopramide HCl 5 mg/5 mL Solution 10 mg Feeding Tube TID RF: 0 vancomycin 125 mg Capsule 125 mg Feeding Tube QID RF: 0 sennosides-docusate sodium [Senna Plus] 8.6-50 mg tablet 1 tab Feeding Tube BID RF: 0 tramadol 50 mg tablet 50 mg Feeding Tube Q6H PRN (Reason: Pain) RF: 0 lactulose 20 gram/30 mL solution 30 ml Feeding Tube DAILY PRN (Reason: Severe Consitipation) RF: 0 insulin aspart U-100 [Novolog U-100 Insulin aspart] 100 unit/mL Solution 2 sliding scale dose SUBCUT UD RF: 0 ascorbic acid (vitamin C) [Vitamin C] 500 mg Tablet 500 mg Feeding Tube BID RF: 0 bisacodyl 5 mg Tablet 5 mg Feeding Tube TID PRN (Reason: Constipation) RF: 0 tamsulosin [Flomax] 0.4 mg Capsule,Extended Release 24hr 0.4 mg PO HS RF: 0 gabapentin 100 mg Capsule 200 mg Feeding Tube HS RF: 0 escitalopram oxalate 10 mg Tablet 10 mg Feeding Tube DAILY RF: 0 hydroxyzine HCl 25 mg Tablet 25 mg Feeding Tube TID-QID PRN (Reason: Itching) RF: 0 lamotrigine [Lamictal] 200 mg Tablet 200 mg PO HS RF: 0 polyethylene glycol 3350 17 gram Powder In Packet 17 g Feeding Tube DAILY RF: 0 mirtazapine 15 mg Tablet,Disintegrating 15 mg Feeding Tube HS RF: 0 multivitamin Tablet 1 tab Feeding Tube DAILY RF: 0 omeprazole 20 mg Capsule,Delayed Release(Dr/Ec) 20 mg Feeding Tube DAILY RF: 0 sevelamer carbonate [Renvela] 2.4 gram Powder In Packet 2,400 mg Feeding Tube AC RF: 0 risperidone 0.5 mg Tablet,Disintegrating 0.5 mg Feeding Tube BID RF: 0 cinacalcet [Sensipar] 30 mg Tablet 30 mg PO DAILY RF: 0 trazodone 150 mg Tablet 150 mg Feeding Tube HS RF: 0 ondansetron HCl [Zofran] 8 mg Tablet 8 mg Feeding Tube Q6HR PRN (Reason: Nausea) RF: 0 bisacodyl [Bisac-Evac] 10 mg Suppository 10 mg PA DAILY PRN (Reason: Severe Consitipation) RF: 0 Discharge Interventions Interventions: Vital Signs Last Done: 01/25/18 06:43 Status ED Status: With Doctor
[2018-01-25 00:21] LABS: Baso # (Auto) 0.1 th/mm3 (0.0-0.2); Baso % (Auto) 0.8 % (0.0-2.0); Eos % (Auto) 0.4 % (0.0-4.0); Hemoglobin 10.4 gm/dL (13.0-17.0); Mean Corpuscular HGB Conc 32.6 % (32.0-36.0); Mean Corpuscular Hemoglobin 28.9 pg (27.0-34.0); Mean Corpuscular Volume 88.6 fL (80.0-100.0); Mean Platelet Volume 8.8 fL (7.0-11.0); Mono # (Auto) 0.6 th/mm3 (0.0-0.9); Mono % (Auto) 6.2 % (0.0-8.0); Neut # (Auto) 7.9 th/mm3 (1.8-7.7); Neut % (Auto) 82.6 % (16.0-70.0); Platelet Count 382 th/mm3 (150-450); Red Blood Count 3.62 mil/mm3 (4.50-5.90); White Blood Count 9.6 th/mm3 (4.0-11.0)
--- NOTE | 2018-01-25 00:23 | XR ---
EXAM DATE: 01/25/2018 12:14 AM EST AGE/SEX: 62 years / Male INDICATIONS: Short of breath. CLINICAL DATA: This is the patient's initial encounter. Patient reports that signs and symptoms have been present for 1 day and indicates a pain score of 0/10. MEDICAL/SURGICAL HISTORY: . AV fistula,, BPH, bipolar, cerebral infarct, CK, Left hand contract ure, dysphagia, ESRD, GERD, heart failure, hypothyroid, PVD, dialysis schizophrenia, diabetes . . ca rdiac catheterization. COMPARISON: [facility], CHEST 1V SINGLE AP, 12/30/2017. . FINDINGS: Mild basilar density, most characteristic of atelectasis and scarring. No pneumothorax or significant effusion. Heart size mildly enlarged. CONCLUSION: Subsegmental basilar atelectasis or scarring. No significant effusion. No pneumothorax. Electronically signed by: Bhavesh Thorpe MD 01/25/2018 12:22 AM EST
[2018-01-25 00:34] LABS: Activated Partial Thrombo Time 29.8 sec (23.4-31.7); INR 1.1 Ratio; Prothrombin Time 10.8 sec (9.8-11.6)
[2018-01-25 00:45] LABS: Alanine Aminotransferase 16 U/L (12-78); Albumin 3.7 g/dL (3.4-5.0); Alkaline Phosphatase 151 U/L (45-117); Anion Gap 6 meq/L (5-15); Aspartate Aminotransferase 20 U/L (15-37); Blood Urea Nitrogen 15 mg/dL (7-18); Calcium 9.2 mg/dL (8.5-10.1); Carbon Dioxide 36.4 meq/L (21.0-32.0); Chloride 93 meq/L (98-107); Glomerular Filtration Rate 14 mL/min (>89); Glucose,Random 133 mg/dL (74-106); Lipase 168 U/L (73-393); Sodium 135 meq/L (136-145); Total Protein 11.3 g/dL (6.4-8.2)
[2018-01-25 00:48] LABS: Potassium 2.8 meq/L (3.5-5.1)
[2018-01-25] MEDS ORDERED: Potassium Chloride 20 MEQ Pwd Pkt NG/OG ONE (00:54)
--- NOTE | 2018-01-25 01:15 | CT ---
EXAM DATE: 01/25/2018 12:58 AM EST AGE/SEX: 62 years / Male INDICATIONS: Abdomen pain with vomiting. CLINICAL DATA: This is the patient's initial encounter. Patient reports that signs and symptoms have been present for 1 day and indicates a pain score of Nonresponsive. MEDICAL/SURGICAL HISTORY: Renal disease, end stage. Diabetes mellitus type II. Gastroesophage al reflux disease. Dialysis . Feeding tube RADIATION DOSE: 10.32 CTDI (mGy) COMPARISON: [facility] [place] ABDOMEN & PELVIS W/O CONTRAST, 12/22/2017. . TECHNIQUE: Multiple contiguous axial images were obtained through the abdomen. Images were obtained using multiple row detector helical technique. Using automated exposure control and adjustment of the mA and/or kV according to patient size, radiation dose was kept as low as reasonably achievable to o btain optimal diagnostic quality images. DICOM format image data is available electronically for rev iew and comparison. FINDINGS: There is some dependent atelectasis in the lungs. No significant pleural or pericardial effusion. 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 No acute findings in the liver, spleen, adrenals or pancreas. Kidneys are atrophic. Gastrostomy tube present. No calcified gallstones are seen. No pelvic masses or adenopathy. No free fluid. There is a stent in the left iliac vein and superficia l femoral vein. CONCLUSION: 1. No acute findings. 2. Nonacute findings include stable cystic lesion at GE junction measuring about 4 cm in diameter, p ossibly a duplication cyst. Gastrostomy tube present. Renal cortical atrophy. Electronically signed by: Bhavesh Thorpe MD 01/25/2018 1:14 AM EST
[2018-01-25] MEDS ORDERED: Potassium Chloride 25 MEQ Effervescent Tablet NG/OG ONE (01:45)
[2018-01-25] MEDS ORDERED: Potassium Chlor 20 mEq Premix 20 MEQ/100 ML PIGGYBACK IV.SIG ONE (02:45)
[2018-01-25] MEDS ORDERED: Diatrizoate Meglum/Diatrizoate Sod Liq 9 ML UDC ONE (04:56)
[2018-01-25] MEDS ORDERED: Pantoprazole Inj 40 MG Vial IV.PUSH ONE (07:20)
[2018-01-25] MEDS ORDERED: Iohexol 350 MG/ML 50 ML Vial (for Rad Diag) J-TUBE ONE (07:53)
[2018-01-25] MEDS ORDERED: Pantoprazole Inj 80 MG in Sodium Chlor 0.9% Inj 100 ML IV.CONT SCH (08:00)
[2018-01-25] MEDS ORDERED: Dextrose 50% in Water 50 ML Vial IV.PUSH PRN (08:45)
--- NOTE | 2018-01-25 10:50 | P.HPIM ---
History of Present Illness Primary Care Physician: Sharan Hill MD Chief Complaint: Abdominal pain History of Present Illness: The patient is a 62 year old male with a past medical history of chronic kidney disease on dialysis, insulin-dependant diabetes, hypertension, CVA with left sided paralysis, and esophagitis s/p peg tube placement who presents to the ED from a SNF after he vomited three times while receiving his tube feeding while lying down. SNF also reports low H&H and positive guaiac dark stools. Pt reports mild dyspnea and productive cough with yellow phlegm for two days. He also reports upper abdominal pain, distention, and diarrhea for three days. He reports the abdominal pain as a 5/10 in severity. He denies any chest pain, palpitations, diaphoresis, fever, or chills. He denies noticing any blood in vomitus or phlegm. He denies a history of C diff. Discussed with the staff at the SNF who stated that the patient tested positive for C. difficile on 2017 and was started on p.o. vancomycin on 01/19/2018. The patient has been having a hard time reaching his goal tube feeds. They added Reglan to try to help with that. Review of Systems All other systems reviewed negative except as stated in HPI PMFSH - History History Provided By: Patient - Medical History Medical History: Medical History (Last Reviewed 01/25/18 @ 10:37 by Jd Abernathy DO) AV (arteriovenous fistula) Anxiety Benign prostatic hyperplasia Bipolar disorder Cerebral infarction Chronic kidney disease Contracture, left hand Dysphagia Dysphagia, oropharyngeal phase End stage renal disease Esophagitis Gastroesophageal reflux disease Heart failure Hyperlipidemia Hypothyroidism Iron deficiency anemia Mood disorder Muscle weakness Osteoporosis Peripheral vascular disease Renal dialysis status Schizophrenia Type 2 diabetes mellitus - Surgical History Surgical History: Surgical History (Last Reviewed 01/25/18 @ 10:37 by Jd Abernathy DO) H/O cardiac catheterization - Family History Family History: Family History (Last Reviewed 01/25/18 @ 10:37 by Jd Abernathy DO) Other No family history of cardiac disease - Social History I have reviewed the patient's Social History: Yes - Tobacco History Second Hand Smoke Exposure: No Tobacco Use In Past 30 Days: No Smoking Status: Former smoker - Alcohol History How Often Do You Have a Drink Containing Alcohol: Never - Substance Use History Substance History: No History of Abuse - Travel History Recent Travel in the [facility] Within the Last 8 Weeks: No Recent Travel Out of the Country Within the Last 8 Weeks: No - Immunization History Tetanus Immunization: Unsure Medications and Allergies Active Medications: Active Medications Cinacalcet (Sensipar) 30 mg PO DAILY FLAQUITA Dextrose (D50w Vial) 50 ml IV.PUSH UNSCH PRN PRN Reason: PER HYPOGLYCEMIA PROTOCOL Escitalopram Oxalate (Lexapro) 10 mg G-TUBE DAILY FLAQUITA Gabapentin (Neurontin Liq) 200 mg G-TUBE HS FLAQUITA Glucagon (Glucagon Inj) 1 mg OTHER PRN PRN PRN Reason: for Hypoglycemia Protocol Hydroxyzine HCl (Atarax) 25 mg G-TUBE QID PRN PRN Reason: Itching Pantoprazole Sodium 80 mg/ (Sodium Chloride) 100 mls @ 10 mls/hr IV.CONT CONT FLAQUITA Insulin Aspart (Novolog Insulin Correctional Sugar Inj) 0 unit SQ Q6HR FLAQUITA; Protocol Lamotrigine (Lamictal) 200 mg G-TUBE HS FLAQUITA Metoclopramide HCl (Reglan Liq) 10 mg G-TUBE TID FLAQUITA Midodrine (Proamatine) 10 mg G-TUBE TID FLAQUITA Mirtazapine (Remeron Soltab Odt) 15 mg G-TUBE HS FLAQUITA Ondansetron HCl (Zofran Inj) 4 mg IV.PUSH Q6H PRN PRN Reason: NAUSEA OR VOMITING Patient Own Medication: Renvela 2.4 Gram Packet 0 each G-TUBE AC FLAQUITA Risperidone (Risperdal M-Tab) 0.5 mg PO BID FLAQUITA Sodium Chloride (Ns Flush) 2 ml IV.FLUSH PRN PRN PRN Reason: FLUSH AFTER USING IV ACCESS Last Admin: 01/25/18 00:09 Dose: 2 ml Tamsulosin HCl (Flomax) 0.4 mg PO HS FLAQUITA Tramadol HCl (Ultram) 50 mg G-TUBE Q6H PRN PRN Reason: Pain 3-10 Trazodone HCl (Desyrel) 150 mg G-TUBE HS FLAQUITA Vancomycin HCl (Vancomycin Po) 125 mg G-TUBE QID [facility] Allergies Allergy/AdvReac Type Severity Reaction Status Date / Time methadone Allergy Severe Anaphylaxis Verified 01/24/18 23:08 acetaminophen Allergy Unknown Anaphylaxis Verified 01/24/18 23:08 propoxyphene Allergy Unknown Anaphylaxis Verified 01/24/18 23:08 Home Medications Medication Instructions Recorded Confirmed Type ascorbic acid (vitamin C) [Vitamin 500 mg FEEDING TUBE BID 09/14/17 01/25/18 History C] bisacodyl 5 mg FEEDING TUBE TID PRN 09/14/17 01/25/18 History cinacalcet [Sensipar] 30 mg PO DAILY 09/14/17 01/25/18 History escitalopram oxalate 10 mg FEEDING TUBE DAILY 09/14/17 01/25/18 History gabapentin 200 mg FEEDING TUBE HS 09/14/17 01/25/18 History hydroxyzine HCl 25 mg FEEDING TUBE TID-QID PRN 09/14/17 01/25/18 History lamotrigine [Lamictal] 200 mg PO HS 09/14/17 01/25/18 History mirtazapine 15 mg FEEDING TUBE HS 09/14/17 01/25/18 History multivitamin 1 tab FEEDING TUBE DAILY 09/14/17 01/25/18 History omeprazole 20 mg FEEDING TUBE DAILY 09/14/17 01/25/18 History ondansetron HCl [Zofran] 8 mg FEEDING TUBE Q6HR PRN 09/14/17 01/25/18 History polyethylene glycol 3350 17 g FEEDING TUBE DAILY 09/14/17 01/25/18 History risperidone 0.5 mg FEEDING TUBE BID 09/14/17 01/25/18 History sevelamer carbonate [Renvela] 2,400 mg FEEDING TUBE AC 09/14/17 01/25/18 History tamsulosin [Flomax] 0.4 mg PO HS 09/14/17 01/25/18 History trazodone 150 mg FEEDING TUBE HS 09/14/17 01/25/18 History ferrous sulfate 325 mg PO TID 11/18/17 01/25/18 History insulin glargine [Lantus U-100 10 unit SUB-Q DAILY 11/18/17 01/25/18 History Insulin] lovastatin 20 mg FEEDING TUBE DAILY 11/18/17 01/25/18 History midodrine 10 mg FEEDING TUBE TID 11/18/17 01/25/18 History insulin aspart U-100 [Novolog 2 sliding scale dose SUBCUT UD 01/25/18 01/25/18 History U-100 Insulin aspart] lactulose 30 ml FEEDING TUBE DAILY PRN 01/25/18 01/25/18 History metoclopramide HCl 10 mg FEEDING TUBE TID 01/25/18 01/25/18 History sennosides-docusate sodium [Senna 1 tab FEEDING TUBE BID 01/25/18 01/25/18 History Plus] tramadol 50 mg FEEDING TUBE Q6H PRN 01/25/18 01/25/18 History vancomycin 125 mg FEEDING TUBE QID 01/25/18 01/25/18 History Exam Vital signs: Vital Signs 01/24/18 23:09 01/25/18 01:26 01/25/18 03:03 Temperature 98.8 F Pulse Rate 88 82 Respiratory Rate 14 14 14 Blood Pressure 107/64 Pulse Oximetry 97 97 01/25/18 06:43 01/25/18 08:36 Temperature Pulse Rate 71 68 Respiratory Rate 16 Blood Pressure 114/69 103/66 Pulse Oximetry 99 99 Intake & Output 01/24/18 01/25/18 01/25/18 18:59 06:59 18:59 Intake Total 100 / 100 Balance 100 / 100 Weight 83.915 kg Intake: IV 100 / 100 KCl 20 mEq Premix Inj 20 meq In 100 / 100 100 ml @ 50 mls/hr IV.SIG ONCE ONE Rx#:[id number] Narrative: GENERAL: Uncomfortable appearing male in no acute distress. HEENT: Conjunctiva nonerythematous and anicteric; Moist mucous membranes. NECK: Supple, no JVD. CARDIOVASCULAR: Distant heart sounds with regular rate and rhythm. RESPIRATORY: Diminished breath sounds throughout, scattered rhonchi. ABDOMINAL: Soft, nondistended abdomen with mild generalized tenderness to palpation. No rebound or guarding. PEG appears clean and intact. MSK: No peripheral edema or cyanosis NEURO: Awake and alert. 0/5 muscle strength in left upper and lower extremities. Able to move right upper and lower extremities. Results - Labs CBC & Chem 7: 01/25/18 00:04 01/25/18 00:04 Labs: Short CBC 01/25/18 Range/Units 00:04 WBC 9.6 (4.0-11.0) th/mm3 Hgb 10.4 L (13.0-17.0) gm/dL Hct 32.0 L (39.0-51.0) % Plt Count 382 D (150-450) th/mm3 BMP 01/25/18 00:04 Sodium 135 L Potassium 2.8 L* Chloride 93 L Carbon Dioxide 36.4 H BUN 15 Creatinine 5.11 H Calcium 9.2 Liver Function 01/25/18 Range/Units 00:04 Total Bilirubin 0.3 (0.2-1.0) mg/dL AST 20 (15-37) U/L ALT 16 (12-78) U/L Alkaline Phosphatase 151 H (45-117) U/L Albumin 3.7 (3.4-5.0) g/dL - Imaging Impressions Chest X-Ray 01/24/18 23:44 CONCLUSION: Subsegmental basilar atelectasis or scarring. No significant effusion. No pneumothorax. Abdomen/Pelvis CT 01/25/18 00:00 CONCLUSION: 1. No acute findings. 2. 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 Gastrostomy tube present. Renal cortical atrophy. Caprini VTE Risk Assessment Caprini VTE Risk Assessment: Moderate/High Risk (score >= 2) Caprini Risk Assessment Model: Point Value = 1 Point Value = 2 Point Value = 3 Point Value = 5 Age 41-60 Minor surgery BMI > 25 kg/m2 Swollen legs Varicose veins or History of unexplained or recurrent spontaneous Oral contraceptives or hormone replacement Sepsis (< 1 month) Serious lung disease, including pneumonia (< 1 month) Abnormal pulmonary function Acute myocardial infarction Congestive heart failure (< 1 month) History of inflammatory bowel disease Medical patient at bed rest Age 61-74 Arthroscopic surgery Major open surgery (> 45 min) Laparoscopic surgery (> 45 min) Malignancy Confined to bed (> 72 hours) Immobilizing plaster cast Central venous access Age >= 75 History of VTE Family history of VTE Factor V Leiden Prothrombin 52847C Lupus anticoagulant Anticardiolipin antibodies Elevated serum homocysteine Heparin-induced thrombocytopenia Other congenital or acquired thrombophilia Stroke (< 1 month) Elective arthroplasty Hip, pelvis, or leg fracture Acute spinal cord injury (< 1 month) Prophylaxis Regimen: Total Risk Factor Score Risk Level Prophylaxis Regimen 0-1 Low Early ambulation 2 Moderate Order ONE of the following: *Sequential Compression Device (SCD) *Heparin 5000 units SQ BID 3-4 Higher Order ONE of the following medications: *Heparin 5000 units SQ TID *Enoxaparin/Lovenox 40 mg SQ daily (WT < 150 kg, CrCl > 30 mL/min) *Enoxaparin/Lovenox 30 mg SQ daily (WT < 150 kg, CrCl > 10-29 mL/min) *Enoxaparin/Lovenox 30 mg SQ BID (WT < 150 kg, CrCl > 30 mL/min) AND/OR *Sequential Compression Device (SCD) 5 or more Highest Order ONE of the following medications: *Heparin 5000 units SQ TID (Preferred with Epidurals) *Enoxaparin/Lovenox 40 mg SQ daily (WT < 150 kg, CrCl > 30 mL/min) *Enoxaparin/Lovenox 30 mg SQ daily (WT < 150 kg, CrCl > 10-29 mL/min) *Enoxaparin/Lovenox 30 mg SQ BID (WT < 150 kg, CrCl > 30 mL/min) AND *Sequential Compression Device (SCD) Assessment and Plan - Plan N/V/Abdominal pain/C diff The pt recently had a PEG tube placed and has had a hard time reaching his goal on tube feeds. He has had abdominal pain and N/V. CT abdomen: Nonacute findings include stable cystic lesion at GE junction measuring about 4 cm in diameter, possibly a duplication cyst. Reportedly guaiac positive. Positive for C diff on 01/18, PO vanc started on 01/19. -GI consult requested. -continue PPI. -keep NPO for now. Hold tube feeds. -antiemetics as needed. -continue PO vancomycin. Hypokalemia/ESRD On dialysis. S/p repletion of potassium in ED. -nephrology consult requested. -follow BMP. -telemetry. Anemia Appears stable compared to baseline. -Gastroccult emesis. -Follow CBC and transfuse as needed. DM On insulin as an outpt. -insulin sliding scale and monitor glucose. Dyspnea CXR unremarkable. -oxygen and nebs as needed. CVA W/ left sided weakness. -PT and OT. PPx: SCDs Discussed Condition With: Pt, nurse, ER doc, staff at [facility]
[2018-01-25] MEDS ORDERED: Sod Chloride 0.9% Inj 1,000 ML OTHER PRN ×2 (11:01)
[2018-01-25] MEDS ORDERED: Heparin 10,000 UNITS/10 ML Vial (for IV use) OTHER PRN ×2 (11:01)
[2018-01-25] MEDS ORDERED: Gelatin 12 MM/7 MM Topical Foam TOPICAL PRN (11:01)
[2018-01-25] MEDS ORDERED: Albumin Human 25% Inj 100 ML IV.SIG PRN (11:01)
--- NOTE | 2018-01-25 11:12 | P.CONNP ---
<BuddyteodoraKhalida graham - Last Filed: 01/25/18 13:08> History of Present Illness Service: Nephrology Consult date: 01/25/18 Requesting Physician: Jd Abernathy Reason for Consult: End stage renal disease on hemodialysis Primary Care Provider: Sharan Hill MD Chief Complaint: Abdominal pain History of Present Illness: Patient is a 62 year old male with a past medical history of chronic kidney disease on hemodialysis, insulin-dependant diabetes, hypertension, CVA with left sided paralysis, and esophagitis s/p peg tube placement. Presents to the ED from a SNF after he vomited three times while receiving his tube feeding. Nephrology is consulted for management of end stage renal disease. Regular scheduled days at [facility] are on Tuesday, , and Tuesday. Last HD on Tuesday. Pt reports dyspnea, abdominal pain, distention, and diarrhea for three days. He reports the abdominal pain as a 5/10 in severity. He denies any chest pain, palpitations, diaphoresis, fever, or chills. Being treated for C diff with oval vancomycin. Review of Systems All other systems reviewed negative except as stated in HPI PMFSH - History History Provided By: Patient - Medical History Medical History: Medical History (Last Reviewed 01/25/18 @ 10:37 by Jd Abernathy DO) AV (arteriovenous fistula) Anxiety Benign prostatic hyperplasia Bipolar disorder Cerebral infarction Chronic kidney disease Contracture, left hand Dysphagia Dysphagia, oropharyngeal phase End stage renal disease Esophagitis Gastroesophageal reflux disease Heart failure Hyperlipidemia Hypothyroidism Iron deficiency anemia Mood disorder Muscle weakness Osteoporosis Peripheral vascular disease Renal dialysis status Schizophrenia Type 2 diabetes mellitus - Surgical History Surgical History: Surgical History (Last Reviewed 01/25/18 @ 10:37 by Jd Abernathy DO) H/O cardiac catheterization - Family History Family History: Family History (Last Reviewed 01/25/18 @ 10:37 by Jd Abernathy DO) Other No family history of cardiac disease - Tobacco History Second Hand Smoke Exposure: No Tobacco Use In Past 30 Days: No Smoking Status: Former smoker - Alcohol History How Often Do You Have a Drink Containing Alcohol: Never - Substance Use History Substance History: No History of Abuse - Travel History Recent Travel in the [place] Within the Last 8 Weeks: No Recent Travel Out of the Country Within the Last 8 Weeks: No - Immunization History Tetanus Immunization: Unsure Medications and Allergies Allergies Allergy/AdvReac Type Severity Reaction Status Date / Time methadone Allergy Severe Anaphylaxis Verified 01/24/18 23:08 acetaminophen Allergy Unknown Anaphylaxis Verified 01/24/18 23:08 propoxyphene Allergy Unknown Anaphylaxis Verified 01/24/18 23:08 Home Medications Medication Instructions Recorded Confirmed Type ascorbic acid (vitamin C) [Vitamin 500 mg FEEDING TUBE BID 09/14/17 01/25/18 History C] bisacodyl 5 mg FEEDING TUBE TID PRN 09/14/17 01/25/18 History cinacalcet [Sensipar] 30 mg PO DAILY 09/14/17 01/25/18 History escitalopram oxalate 10 mg FEEDING TUBE DAILY 09/14/17 01/25/18 History gabapentin 200 mg FEEDING TUBE HS 09/14/17 01/25/18 History hydroxyzine HCl 25 mg FEEDING TUBE TID-QID PRN 09/14/17 01/25/18 History lamotrigine [Lamictal] 200 mg PO HS 09/14/17 01/25/18 History mirtazapine 15 mg FEEDING TUBE HS 09/14/17 01/25/18 History multivitamin 1 tab FEEDING TUBE DAILY 09/14/17 01/25/18 History omeprazole 20 mg FEEDING TUBE DAILY 09/14/17 01/25/18 History ondansetron HCl [Zofran] 8 mg FEEDING TUBE Q6HR PRN 09/14/17 01/25/18 History polyethylene glycol 3350 17 g FEEDING TUBE DAILY 09/14/17 01/25/18 History risperidone 0.5 mg FEEDING TUBE BID 09/14/17 01/25/18 History sevelamer carbonate [Renvela] 2,400 mg FEEDING TUBE AC 09/14/17 01/25/18 History tamsulosin [Flomax] 0.4 mg PO HS 09/14/17 01/25/18 History trazodone 150 mg FEEDING TUBE HS 09/14/17 01/25/18 History ferrous sulfate 325 mg PO TID 11/18/17 01/25/18 History insulin glargine [Lantus U-100 10 unit SUB-Q DAILY 11/18/17 01/25/18 History Insulin] lovastatin 20 mg FEEDING TUBE DAILY 11/18/17 01/25/18 History midodrine 10 mg FEEDING TUBE TID 11/18/17 01/25/18 History insulin aspart U-100 [Novolog 2 sliding scale dose SUBCUT UD 01/25/18 01/25/18 History U-100 Insulin aspart] lactulose 30 ml FEEDING TUBE DAILY PRN 01/25/18 01/25/18 History metoclopramide HCl 10 mg FEEDING TUBE TID 01/25/18 01/25/18 History sennosides-docusate sodium [Senna 1 tab FEEDING TUBE BID 01/25/18 01/25/18 History Plus] tramadol 50 mg FEEDING TUBE Q6H PRN 01/25/18 01/25/18 History vancomycin 125 mg FEEDING TUBE QID 01/25/18 01/25/18 History Active Medications: Active Medications Albuterol (Duoneb Neb (Prn)) 1 ampul NEB Q2HR NEB PRN PRN Reason: DYSPNEA Cinacalcet (Sensipar) 30 mg PO DAILY [facility] Clonidine HCl (Catapres) 0.1 mg PO UNSCH PRN PRN Reason: SEE LABEL COMMENTS Dextrose (D50w Vial) 50 ml IV.PUSH UNSCH PRN PRN Reason: PER HYPOGLYCEMIA PROTOCOL Epoetin Camilo (Epogen Inj) 4,000 unit IV.PUSH UNSCH PRN PRN Reason: SEE LABEL COMMENTS Escitalopram Oxalate (Lexapro) 10 mg G-TUBE DAILY [facility] Gabapentin (Neurontin Liq) 200 mg G-TUBE HS [facility] Gelatin (Gelfoam 12 Mm/7 Mm Topical) 1 foam TOPICAL PRN PRN PRN Reason: help stop bleeding from site Gentamicin Sulfate (Gentamicin Inj) 20 mg OTHER WITH DIALYSIS PRN PRN Reason: Dwell Gentamycin Lock Glucagon (Glucagon Inj) 1 mg OTHER PRN PRN PRN Reason: for Hypoglycemia Protocol Heparin Sodium (Porcine) (Heparin Inj) 8,000 units OTHER WITH DIALYSIS PRN PRN Reason: for machine prime Heparin Sodium (Porcine) (Heparin Inj) 1,000 units OTHER WITH DIALYSIS PRN PRN Reason: Dwell Heparin to Fill Catheter Hydroxyzine HCl (Atarax) 25 mg G-TUBE QID PRN PRN Reason: Itching Pantoprazole Sodium 80 mg/ (Sodium Chloride) 100 mls @ 10 mls/hr IV.CONT CONT [facility] Sodium Chloride (Ns Inj) 1,000 mls @ 0 mls/hr OTHER .Q0M PRN PRN Reason: for prime and rinse back Sodium Chloride (Ns Inj) 1,000 mls @ 200 mls/hr OTHER .Q5H PRN PRN Reason: for dialyzer flush PRN Sodium Chloride (Ns Inj) 1,000 mls @ 0 mls/hr IV.CONT .Q0M PRN PRN Reason: hypotension / volume replace Albumin Human (Flexbumin 25% Inj) 100 mls @ 60 mls/hr IV.SIG WITH DIALYSIS PRN PRN Reason: hypotension / volume replace Insulin Aspart (Novolog Insulin Correctional Sugar Inj) 0 unit SQ Q6HR [facility]; Protocol Lamotrigine (Lamictal) 200 mg G-TUBE HS [facility] Mannitol (Mannitol Inj) 12.5 gm IV.PUSH UNSCH PRN PRN Reason: hypotension / volume replace Metoclopramide HCl (Reglan Liq) 10 mg G-TUBE TID [facility] Midodrine (Proamatine) 10 mg G-TUBE TID [facility] Mirtazapine (Remeron Soltab Odt) 15 mg G-TUBE HS [facility] Nitroglycerin (Nitrostat Sl) 0.4 mg SL Q5M PRN PRN Reason: CHEST PAIN Ondansetron HCl (Zofran Inj) 4 mg IV.PUSH Q6H PRN PRN Reason: NAUSEA OR VOMITING Ondansetron HCl (Zofran Inj) 4 mg IV.PUSH UNSCH PRN PRN Reason: NAUSEA OR VOMITING Patient Own Medication: Renvela 2.4 Gram Packet 0 each G-TUBE AC [facility] Risperidone (Risperdal M-Tab) 0.5 mg PO BID [facility] Sodium Chloride (Ns Flush) 2 ml IV.FLUSH PRN PRN PRN Reason: FLUSH AFTER USING IV ACCESS Last Admin: 01/25/18 00:09 Dose: 2 ml Sodium Chloride (Ns Flush) 5 ml IV.FLUSH PRN PRN PRN Reason: flush each lumen during HD Tamsulosin HCl (Flomax) 0.4 mg PO HS [facility] Tramadol HCl (Ultram) 50 mg G-TUBE Q6H PRN PRN Reason: Pain 3-10 Trazodone HCl (Desyrel) 150 mg G-TUBE HS [facility] Vancomycin HCl (Vancomycin Po) 125 mg G-TUBE QID [facility] Exam Vital signs: Vital Signs 01/24/18 23:09 01/25/18 01:26 01/25/18 03:03 Temperature 98.8 F Pulse Rate 88 82 Respiratory Rate 14 14 14 Blood Pressure 107/64 Pulse Oximetry 97 97 01/25/18 06:43 01/25/18 08:36 Temperature Pulse Rate 71 68 Respiratory Rate 16 Blood Pressure 114/69 103/66 Pulse Oximetry 99 99 Intake & Output 01/24/18 01/25/18 01/25/18 18:59 06:59 18:59 Intake Total 100 / 100 Balance 100 / 100 Weight 83.915 kg Intake: IV 100 / 100 KCl 20 mEq Premix Inj 20 meq In 100 / 100 100 ml @ 50 mls/hr IV.SIG ONCE ONE Rx#:[id number] Narrative: GENERAL: Alert and awake. SKIN: Warm and dry. NECK: Supple, trachea midline. No JVD. CARDIOVASCULAR: Regular rate and rhythm without murmurs, gallops, or rubs. Left leg with AVF positive thrill and bruit. RESPIRATORY: Breath sounds equal bilaterally. No accessory muscle use. GASTROINTESTINAL: Abdomen soft, tender to palpation. MUSCULOSKELETAL: No cyanosis, or edema. BACK: Nontender without obvious deformity. No CVA tenderness. Results - Lab Results 01/25/18 11:16 01/25/18 11:16 Most recent lab results Calcium 9.2 mg/dL (8.5-10.1) 01/25/18 00:04 Assessment and Plan - Assessment (1) End stage renal disease on dialysis Code(s): N18.6 - End stage renal disease; Z99.2 - Dependence on renal dialysis Status: Acute Plan: End stage renal disease on hemodialysis on Tuesday, , and Tuesday. Left leg with AVF positive thrill and bruit Avoid gadolinium Epogen with dialysis Continue midodrine for blood pressure support. Hemodialysis tomorrow orders planed. (2) Diabetes Code(s): E11.9 - Type 2 diabetes mellitus without complications Status: Chronic Plan: Maintain blood sugar between 140 mg/dl to 180 mg/dl while hospitalized. (3) Nausea and vomiting Code(s): R11.2 - Nausea with vomiting, unspecified Status: Acute Plan: GI consulted for further recommendations. CT with no acute finding. (4) Anemia Code(s): D64.9 - Anemia, unspecified Status: Acute Plan: HGB at 9.7 Epogen with dialysis GI consulted for further evaluation for GI losses. <Kaur Bell Q - Last Filed: 01/29/18 21:28> History of Present Illness Primary Care Provider: Sharan Hill MD [facility] - Medical History Medical History: Medical History (Last Reviewed 01/25/18 @ 10:37 by Jd Abernathy DO) AV (arteriovenous fistula) Anxiety Benign prostatic hyperplasia Bipolar disorder Cerebral infarction Chronic kidney disease Contracture, left hand Dysphagia Dysphagia, oropharyngeal phase End stage renal disease Esophagitis Gastroesophageal reflux disease Heart failure Hyperlipidemia Hypothyroidism Iron deficiency anemia Mood disorder Muscle weakness Osteoporosis Peripheral vascular disease Renal dialysis status Schizophrenia Type 2 diabetes mellitus - Surgical History Surgical History: Surgical History (Last Reviewed 01/25/18 @ 10:37 by Jd Abernathy DO) H/O cardiac catheterization - Family History Family History: Family History (Last Reviewed 01/25/18 @ 10:37 by Jd Abernathy DO) Other No family history of cardiac disease - Substance Use Type Crack/Cocaine Status: Sustained Remission Route Used: Inhalation Frequency: evry week, about a gram Reason for Use: Feels Good, Get High Medications and Allergies Active Medications: Active Medications Albuterol (Duoneb Neb (Prn)) 1 ampul NEB Q2HR NEB PRN PRN Reason: DYSPNEA Cinacalcet (Sensipar) 30 mg PO DAILY [facility] Last Admin: 01/29/18 10:31 Dose: 30 mg Clonidine HCl (Catapres) 0.1 mg PO UNSCH PRN PRN Reason: SEE LABEL COMMENTS Dextrose (D50w Vial) 50 ml IV.PUSH UNSCH PRN PRN Reason: PER HYPOGLYCEMIA PROTOCOL Last Admin: 01/25/18 12:32 Dose: 50 ml Epoetin Camilo (Epogen Inj) 4,000 unit IV.PUSH UNSCH PRN PRN Reason: SEE LABEL COMMENTS Last Admin: 01/28/18 17:15 Dose: 4,000 unit Escitalopram Oxalate (Lexapro) 10 mg G-TUBE DAILY [facility] Last Admin: 01/29/18 10:32 Dose: 10 mg Gabapentin (Neurontin Liq) 200 mg G-TUBE HS [facility] Last Admin: 01/28/18 22:16 Dose: 200 mg Gelatin (Gelfoam 12 Mm/7 Mm Topical) 1 foam TOPICAL PRN PRN PRN Reason: help stop bleeding from site Last Admin: 01/28/18 17:15 Dose: 1 foam Gentamicin Sulfate (Gentamicin Inj) 20 mg OTHER WITH DIALYSIS PRN PRN Reason: Dwell Gentamycin Lock Glucagon (Glucagon Inj) 1 mg OTHER PRN PRN PRN Reason: for Hypoglycemia Protocol Heparin Sodium (Porcine) (Heparin Inj) 8,000 units OTHER WITH DIALYSIS PRN PRN Reason: for machine prime Heparin Sodium (Porcine) (Heparin Inj) 1,000 units OTHER WITH DIALYSIS PRN PRN Reason: Dwell Heparin to Fill Catheter Heparin Sodium (Porcine) (Heparin Inj) 5,000 units SQ Q12HR [facility] Last Admin: 01/29/18 10:28 Dose: 5,000 units Hydroxyzine HCl (Atarax) 25 mg G-TUBE QID PRN PRN Reason: Itching Pantoprazole Sodium 80 mg/ (Sodium Chloride) 100 mls @ 10 mls/hr IV.CONT CONT [facility] Sodium Chloride (Ns Inj) 1,000 mls @ 0 mls/hr OTHER .Q0M PRN PRN Reason: for prime and rinse back Sodium Chloride (Ns Inj) 1,000 mls @ 125 mls/hr OTHER .Q8H PRN PRN Reason: for dialyzer flush PRN Sodium Chloride (Ns Inj) 1,000 mls @ 0 mls/hr IV.CONT .Q0M PRN PRN Reason: hypotension / volume replace Last Infusion: 01/29/18 06:22 Dose: 0 mls/hr Albumin Human (Flexbumin 25% Inj) 100 mls @ 60 mls/hr IV.SIG WITH DIALYSIS PRN PRN Reason: hypotension / volume replace Last Admin: 01/28/18 14:36 Dose: 999 mls/hr Insulin Aspart (Novolog Insulin Correctional Sugar Inj) 0 unit SQ Q6HR [facility]; Protocol Last Admin: 01/29/18 18:39 Dose: Not Given Lamotrigine (Lamictal) 200 mg G-TUBE HS [facility] Last Admin: 01/28/18 22:11 Dose: 200 mg Mannitol (Mannitol Inj) 12.5 gm IV.PUSH UNSCH PRN PRN Reason: hypotension / volume replace Metoclopramide HCl (Reglan Liq) 10 mg G-TUBE TID [facility] Last Admin: 01/29/18 18:01 Dose: 10 mg Midodrine (Proamatine) 15 mg PO TID@0700,1200,1700 [facility] Last Admin: 01/29/18 19:19 Dose: 15 mg Mirtazapine (Remeron) 15 mg G-TUBE HS [facility] Last Admin: 01/28/18 22:12 Dose: 15 mg Nitroglycerin (Nitrostat Sl) 0.4 mg SL Q5M PRN PRN Reason: CHEST PAIN Ondansetron HCl (Zofran Inj) 4 mg IV.PUSH Q6H PRN PRN Reason: NAUSEA OR VOMITING Last Admin: 01/26/18 20:52 Dose: 4 mg Ondansetron HCl (Zofran Inj) 4 mg IV.PUSH UNSCH PRN PRN Reason: NAUSEA OR VOMITING Patient Own Medication: Renvela 2.4 Gram Packet 0 each G-TUBE AC [facility] Risperidone (Risperdal) 0.5 mg G-TUBE BID [facility] Last Admin: 01/29/18 10:32 Dose: 0.5 mg Sodium Chloride (Ns Flush) 2 ml IV.FLUSH PRN PRN PRN Reason: FLUSH AFTER USING IV ACCESS Last Admin: 01/26/18 20:53 Dose: 2 ml Sodium Chloride (Ns Flush) 5 ml IV.FLUSH PRN PRN PRN Reason: flush each lumen during HD Tamsulosin HCl (Flomax) 0.4 mg PO HS [facility] Tramadol HCl (Ultram) 50 mg G-TUBE Q6H PRN PRN Reason: Pain 3-10 Last Admin: 01/29/18 13:46 Dose: 50 mg Trazodone HCl (Desyrel) 150 mg G-TUBE HS [facility] Last Admin: 01/28/18 22:08 Dose: 150 mg Vancomycin HCl (Vancomycin Po) 125 mg G-TUBE QID [facility] Last Admin: 01/29/18 18:01 Dose: 125 mg Exam Vital signs: Vital Signs 01/29/18 00:00 01/29/18 03:16 01/29/18 07:05 Temperature 98.3 F 97.9 F Pulse Rate 78 78 77 Respiratory Rate 16 16 Blood Pressure 77/45 L 85/41 L Pulse Oximetry 92 L 92 L 01/29/18 08:00 01/29/18 12:00 01/29/18 16:00 Temperature 98.3 F 98.4 F 99.4 F Pulse Rate 75 82 80 Respiratory Rate 16 16 16 Blood Pressure 97/61 L 114/67 118/63 Pulse Oximetry 95 95 96 01/29/18 20:00 Temperature 98.9 F Pulse Rate 81 Respiratory Rate 16 Blood Pressure 99/57 L Pulse Oximetry 95 Intake & Output 01/29/18 01/29/18 01/30/18 06:59 18:59 06:59 Intake Total 450 / 450 Balance 450 / 450 Intake: IV 450 / 450 Flexbumin 25% Inj 100 ML @ 50 100 / 100 mls/hr IV.SIG ONCE ONE Rx#: [id number] KCl 20 mEq Premix Inj 20 meq In 100 / 100 100 ml @ 50 mls/hr IV.SIG ONCE ONE Rx#:[id number] NS Inj 250 ML @ 500 mls/hr IV. 250 / 250 SIG BOLUS [facility] Rx#:[id number] Results - Lab Results 01/29/18 06:29 01/29/18 06:29 Most recent lab results Calcium 8.3 mg/dL (8.5-10.1) L 01/29/18 06:29 Assessment and Plan - Assessment (1) End stage renal disease on dialysis Code(s): N18.6 - End stage renal disease; Z99.2 - Dependence on renal dialysis Status: Acute Plan: Patient seen and examined, agree with above. HD will tomorrow, no more vomiting now, GI following. (2) Diabetes Code(s): E11.9 - Type 2 diabetes mellitus without complications Status: Chronic (3) Nausea and vomiting Code(s): R11.2 - Nausea with vomiting, unspecified Status: Acute (4) Anemia Code(s): D64.9 - Anemia, unspecified Status: Acute <Khalida Laura - Last Filed: 01/25/18 13:08> (2) Diabetes Qualifiers: Diabetes mellitus type: type 2 Chronic kidney disease stage: on chronic dialysis (3) Nausea and vomiting Qualifiers: Vomiting type: unspecified Vomiting Intractability: non-intractable Qualified Code(s): R11.2 - Nausea with vomiting, unspecified <Lizeth Bell - Last Filed: 01/29/18 21:28> (2) Diabetes Qualifiers: Diabetes mellitus type: type 2 Chronic kidney disease stage: on chronic dialysis (3) Nausea and vomiting Qualifiers: Vomiting type: unspecified Vomiting Intractability: non-intractable Qualified Code(s): R11.2 - Nausea with vomiting, unspecified
[2018-01-25] MEDS ORDERED: RENVELA G-TUBE SCH (12:00)
[2018-01-25 12:02] LABS: Baso # (Auto) 0.1 th/mm3 (0.0-0.2); Baso % (Auto) 1.4 % (0.0-2.0); Eos # (Auto) 0.1 th/mm3 (0.0-0.4); Eos % (Auto) 1.4 % (0.0-4.0); Hematocrit 29.8 % (39.0-51.0); Hemoglobin 9.7 gm/dL (13.0-17.0); Lymph # (Auto) 1.9 th/mm3 (1.0-4.8); Lymph % (Auto) 21.7 % (9.0-44.0); Mean Corpuscular HGB Conc 32.6 % (32.0-36.0); Mean Corpuscular Hemoglobin 29.2 pg (27.0-34.0); Mean Corpuscular Volume 89.5 fL (80.0-100.0); Mean Platelet Volume 8.9 fL (7.0-11.0); Mono # (Auto) 1.1 th/mm3 (0.0-0.9); Mono % (Auto) 13.1 % (0.0-8.0); Neut # (Auto) 5.3 th/mm3 (1.8-7.7); Neut % (Auto) 62.4 % (16.0-70.0); Platelet Count 314 th/mm3 (150-450); Red Blood Count 3.33 mil/mm3 (4.50-5.90); Red Cell Distribution Width 18.1 % (11.6-17.2); White Blood Count 8.6 th/mm3 (4.0-11.0)
[2018-01-25 12:18] LABS: Alanine Aminotransferase 15 U/L (12-78); Albumin 3.2 g/dL (3.4-5.0); Alkaline Phosphatase 130 U/L (45-117); Anion Gap 9 meq/L (5-15); Aspartate Aminotransferase 22 U/L (15-37); Blood Urea Nitrogen 16 mg/dL (7-18); Calcium 9.3 mg/dL (8.5-10.1); Carbon Dioxide 28.6 meq/L (21.0-32.0); Chloride 100 meq/L (98-107); Glomerular Filtration Rate 12 mL/min (>89); Potassium 4.1 meq/L (3.5-5.1); Total Protein 10.2 g/dL (6.4-8.2)
[2018-01-25 12:20] LABS: Sodium 138 meq/L (136-145)
[2018-01-25 12:22] LABS: Glucose,Random 46 mg/dL (74-106)
[2018-01-25] MEDS: Escitalopram 10 MG Tablet G-TUBE SCH (12:37)
[2018-01-25] MEDS: Metoclopramide Liq 10 MG/10 ML UDC G-TUBE SCH ×2 (12:44→18:51)
--- NOTE | 2018-01-25 13:29 | P.CONGI ---
History of Present Illness Consult date: 01/25/18 Chief complaint: Coffee Ground Emesis History of Present Illness: This is a 62 year old male with a past medical history of chronic kidney disease on dialysis, insulin-dependant diabetes, hypertension, CVA with left sided paralysis, and esophagitis s/p peg tube placement with IR on 01/06/18 who presents to the ED from a SNF for coffee ground emesis. Pt with low H&H and positive guaiac dark stools. He reports diffused abdominal pain. Reports diarrhea, denies hematochezia. Per SNF, the patient tested positive for C. difficile on 01/18/2018 and was started on p.o. vancomycin on 01/19/2018. Per admission note, The patient has been having a hard time reaching his goal tube feeds. Reglan was added. EGD on 12/24/17---> showed LA class D esophagitis, normal mucosa of the stomach, normal mucosa in the entire duodenum, hiatal hernia. benign bx <Rosetta Ho - Last Filed: 01/25/18 13:09> Review of Systems All other systems reviewed negative except as stated in HPI <Rosetta Ho - Last Filed: 01/25/18 13:09> PMFSH - History History Provided By: Patient - Medical History Medical History: Medical History (Last Reviewed 01/25/18 @ 10:37 by Jd Abernathy DO) AV (arteriovenous fistula) Anxiety Benign prostatic hyperplasia Bipolar disorder Cerebral infarction Chronic kidney disease Contracture, left hand Dysphagia Dysphagia, oropharyngeal phase End stage renal disease Esophagitis Gastroesophageal reflux disease Heart failure Hyperlipidemia Hypothyroidism Iron deficiency anemia Mood disorder Muscle weakness Osteoporosis Peripheral vascular disease Renal dialysis status Schizophrenia Type 2 diabetes mellitus - Surgical History Surgical History: Surgical History (Last Reviewed 01/25/18 @ 10:37 by Jd Abernathy DO) H/O cardiac catheterization - Family History Family History: Family History (Last Reviewed 01/25/18 @ 10:37 by Jd Abernathy DO) Other No family history of cardiac disease - Tobacco History Second Hand Smoke Exposure: No Tobacco Use In Past 30 Days: No Smoking Status: Former smoker - Alcohol History How Often Do You Have a Drink Containing Alcohol: Never - Substance Use History Substance History: No History of Abuse - Travel History Recent Travel in the [place] Within the Last 8 Weeks: No Recent Travel Out of the Country Within the Last 8 Weeks: No - Immunization History Tetanus Immunization: Unsure <Rosetta Ho - Last Filed: 01/25/18 13:09> - Medical History Medical History: Medical History (Last Reviewed 01/25/18 @ 10:37 by Jd Abernathy DO) AV (arteriovenous fistula) Anxiety Benign prostatic hyperplasia Bipolar disorder Cerebral infarction Chronic kidney disease Contracture, left hand Dysphagia Dysphagia, oropharyngeal phase End stage renal disease Esophagitis Gastroesophageal reflux disease Heart failure Hyperlipidemia Hypothyroidism Iron deficiency anemia Mood disorder Muscle weakness Osteoporosis Peripheral vascular disease Renal dialysis status Schizophrenia Type 2 diabetes mellitus - Surgical History Surgical History: Surgical History (Last Reviewed 01/25/18 @ 10:37 by Jd Abernathy DO) H/O cardiac catheterization - Family History Family History: Family History (Last Reviewed 01/25/18 @ 10:37 by Jd Abernathy DO) Other No family history of cardiac disease <Soto Latham - Last Filed: 01/25/18 15:29> Medications and Allergies Active Medications: Active Medications Albuterol (Duoneb Neb (Prn)) 1 ampul NEB Q2HR NEB PRN PRN Reason: DYSPNEA Cinacalcet (Sensipar) 30 mg PO DAILY [facility] Last Admin: 01/25/18 11:51 Dose: Not Given Clonidine HCl (Catapres) 0.1 mg PO UNSCH PRN PRN Reason: SEE LABEL COMMENTS Dextrose (D50w Vial) 50 ml IV.PUSH UNSCH PRN PRN Reason: PER HYPOGLYCEMIA PROTOCOL Last Admin: 01/25/18 12:32 Dose: 50 ml Epoetin Camilo (Epogen Inj) 4,000 unit IV.PUSH UNSCH PRN PRN Reason: SEE LABEL COMMENTS Escitalopram Oxalate (Lexapro) 10 mg G-TUBE DAILY [facility] Last Admin: 01/25/18 12:37 Dose: 10 mg Gabapentin (Neurontin Liq) 200 mg G-TUBE HS [facility] Gelatin (Gelfoam 12 Mm/7 Mm Topical) 1 foam TOPICAL PRN PRN PRN Reason: help stop bleeding from site Gentamicin Sulfate (Gentamicin Inj) 20 mg OTHER WITH DIALYSIS PRN PRN Reason: Dwell Gentamycin Lock Glucagon (Glucagon Inj) 1 mg OTHER PRN PRN PRN Reason: for Hypoglycemia Protocol Heparin Sodium (Porcine) (Heparin Inj) 8,000 units OTHER WITH DIALYSIS PRN PRN Reason: for machine prime Heparin Sodium (Porcine) (Heparin Inj) 1,000 units OTHER WITH DIALYSIS PRN PRN Reason: Dwell Heparin to Fill Catheter Hydroxyzine HCl (Atarax) 25 mg G-TUBE QID PRN PRN Reason: Itching Pantoprazole Sodium 80 mg/ (Sodium Chloride) 100 mls @ 10 mls/hr IV.CONT CONT [facility] Sodium Chloride (Ns Inj) 1,000 mls @ 0 mls/hr OTHER .Q0M PRN PRN Reason: for prime and rinse back Sodium Chloride (Ns Inj) 1,000 mls @ 200 mls/hr OTHER .Q5H PRN PRN Reason: for dialyzer flush PRN Sodium Chloride (Ns Inj) 1,000 mls @ 0 mls/hr IV.CONT .Q0M PRN PRN Reason: hypotension / volume replace Albumin Human (Flexbumin 25% Inj) 100 mls @ 60 mls/hr IV.SIG WITH DIALYSIS PRN PRN Reason: hypotension / volume replace Insulin Aspart (Novolog Insulin Correctional Sugar Inj) 0 unit SQ Q6HR [facility]; Protocol Lamotrigine (Lamictal) 200 mg G-TUBE HS [facility] Mannitol (Mannitol Inj) 12.5 gm IV.PUSH UNSCH PRN PRN Reason: hypotension / volume replace Metoclopramide HCl (Reglan Liq) 10 mg G-TUBE TID [facility] Last Admin: 01/25/18 12:44 Dose: 10 mg Midodrine (Proamatine) 10 mg G-TUBE TID [facility] Last Admin: 01/25/18 12:37 Dose: 10 mg Mirtazapine (Remeron) 15 mg G-TUBE HS [facility] Nitroglycerin (Nitrostat Sl) 0.4 mg SL Q5M PRN PRN Reason: CHEST PAIN Ondansetron HCl (Zofran Inj) 4 mg IV.PUSH Q6H PRN PRN Reason: NAUSEA OR VOMITING Ondansetron HCl (Zofran Inj) 4 mg IV.PUSH UNSCH PRN PRN Reason: NAUSEA OR VOMITING Patient Own Medication: Renvela 2.4 Gram Packet 0 each G-TUBE AC [facility] Risperidone (Risperdal) 0.5 mg G-TUBE BID [facility] Sodium Chloride (Ns Flush) 2 ml IV.FLUSH PRN PRN PRN Reason: FLUSH AFTER USING IV ACCESS Last Admin: 01/25/18 00:09 Dose: 2 ml Sodium Chloride (Ns Flush) 5 ml IV.FLUSH PRN PRN PRN Reason: flush each lumen during HD Tamsulosin HCl (Flomax) 0.4 mg PO HS [facility] Tramadol HCl (Ultram) 50 mg G-TUBE Q6H PRN PRN Reason: Pain 3-10 Last Admin: 01/25/18 12:35 Dose: 50 mg Trazodone HCl (Desyrel) 150 mg G-TUBE HS [facility] Vancomycin HCl (Vancomycin Po) 125 mg G-TUBE QID [facility] Last Admin: 01/25/18 12:45 Dose: 125 mg <AmRosetta engle - Last Filed: 01/25/18 13:09> Active Medications: Active Medications Albuterol (Duoneb Neb (Prn)) 1 ampul NEB Q2HR NEB PRN PRN Reason: DYSPNEA Cinacalcet (Sensipar) 30 mg PO DAILY [facility] Last Admin: 01/25/18 11:51 Dose: Not Given Clonidine HCl (Catapres) 0.1 mg PO UNSCH PRN PRN Reason: SEE LABEL COMMENTS Dextrose (D50w Vial) 50 ml IV.PUSH UNSCH PRN PRN Reason: PER HYPOGLYCEMIA PROTOCOL Last Admin: 01/25/18 12:32 Dose: 50 ml Epoetin Camilo (Epogen Inj) 4,000 unit IV.PUSH UNSCH PRN PRN Reason: SEE LABEL COMMENTS Escitalopram Oxalate (Lexapro) 10 mg G-TUBE DAILY [facility] Last Admin: 01/25/18 12:37 Dose: 10 mg Gabapentin (Neurontin Liq) 200 mg G-TUBE HS [facility] Gelatin (Gelfoam 12 Mm/7 Mm Topical) 1 foam TOPICAL PRN PRN PRN Reason: help stop bleeding from site Gentamicin Sulfate (Gentamicin Inj) 20 mg OTHER WITH DIALYSIS PRN PRN Reason: Dwell Gentamycin Lock Glucagon (Glucagon Inj) 1 mg OTHER PRN PRN PRN Reason: for Hypoglycemia Protocol Heparin Sodium (Porcine) (Heparin Inj) 8,000 units OTHER WITH DIALYSIS PRN PRN Reason: for machine prime Heparin Sodium (Porcine) (Heparin Inj) 1,000 units OTHER WITH DIALYSIS PRN PRN Reason: Dwell Heparin to Fill Catheter Hydroxyzine HCl (Atarax) 25 mg G-TUBE QID PRN PRN Reason: Itching Pantoprazole Sodium 80 mg/ (Sodium Chloride) 100 mls @ 10 mls/hr IV.CONT CONT FLAQUITA Sodium Chloride (Ns Inj) 1,000 mls @ 0 mls/hr OTHER .Q0M PRN PRN Reason: for prime and rinse back Sodium Chloride (Ns Inj) 1,000 mls @ 200 mls/hr OTHER .Q5H PRN PRN Reason: for dialyzer flush PRN Sodium Chloride (Ns Inj) 1,000 mls @ 0 mls/hr IV.CONT .Q0M PRN PRN Reason: hypotension / volume replace Albumin Human (Flexbumin 25% Inj) 100 mls @ 60 mls/hr IV.SIG WITH DIALYSIS PRN PRN Reason: hypotension / volume replace Insulin Aspart (Novolog Insulin Correctional Sugar Inj) 0 unit SQ Q6HR [facility]; Protocol Last Admin: 01/25/18 14:40 Dose: Not Given Lamotrigine (Lamictal) 200 mg G-TUBE HS [facility] Mannitol (Mannitol Inj) 12.5 gm IV.PUSH UNSCH PRN PRN Reason: hypotension / volume replace Metoclopramide HCl (Reglan Liq) 10 mg G-TUBE TID [facility] Last Admin: 01/25/18 12:44 Dose: 10 mg Midodrine (Proamatine) 10 mg G-TUBE TID [facility] Last Admin: 01/25/18 12:37 Dose: 10 mg Mirtazapine (Remeron) 15 mg G-TUBE HS [facility] Nitroglycerin (Nitrostat Sl) 0.4 mg SL Q5M PRN PRN Reason: CHEST PAIN Ondansetron HCl (Zofran Inj) 4 mg IV.PUSH Q6H PRN PRN Reason: NAUSEA OR VOMITING Ondansetron HCl (Zofran Inj) 4 mg IV.PUSH UNSCH PRN PRN Reason: NAUSEA OR VOMITING Patient Own Medication: Renvela 2.4 Gram Packet 0 each G-TUBE AC [facility] Polyethylene Glycol/Electrolytes (Colyte Liq) 4,000 ml PO ONCE ONE Stop: 01/25/18 17:01 Risperidone (Risperdal) 0.5 mg G-TUBE BID [facility] Last Admin: 01/25/18 14:41 Dose: Not Given Sodium Chloride (Ns Flush) 2 ml IV.FLUSH PRN PRN PRN Reason: FLUSH AFTER USING IV ACCESS Last Admin: 01/25/18 00:09 Dose: 2 ml Sodium Chloride (Ns Flush) 5 ml IV.FLUSH PRN PRN PRN Reason: flush each lumen during HD Tamsulosin HCl (Flomax) 0.4 mg PO HS [facility] Tramadol HCl (Ultram) 50 mg G-TUBE Q6H PRN PRN Reason: Pain 3-10 Last Admin: 01/25/18 12:35 Dose: 50 mg Trazodone HCl (Desyrel) 150 mg G-TUBE HS [facility] Vancomycin HCl (Vancomycin Po) 125 mg G-TUBE QID [facility] Last Admin: 01/25/18 12:45 Dose: 125 mg <Noa,Mohammad A - Last Filed: 01/25/18 15:29> Allergies Allergy/AdvReac Type Severity Reaction Status Date / Time methadone Allergy Severe Anaphylaxis Verified 01/24/18 23:08 acetaminophen Allergy Unknown Anaphylaxis Verified 01/24/18 23:08 propoxyphene Allergy Unknown Anaphylaxis Verified 01/24/18 23:08 Home Medications Medication Instructions Recorded Confirmed Type ascorbic acid (vitamin C) [Vitamin 500 mg FEEDING TUBE BID 09/14/17 01/25/18 History C] bisacodyl 5 mg FEEDING TUBE TID PRN 09/14/17 01/25/18 History cinacalcet [Sensipar] 30 mg PO DAILY 09/14/17 01/25/18 History escitalopram oxalate 10 mg FEEDING TUBE DAILY 09/14/17 01/25/18 History gabapentin 200 mg FEEDING TUBE HS 09/14/17 01/25/18 History hydroxyzine HCl 25 mg FEEDING TUBE TID-QID PRN 09/14/17 01/25/18 History lamotrigine [Lamictal] 200 mg PO HS 09/14/17 01/25/18 History mirtazapine 15 mg FEEDING TUBE HS 09/14/17 01/25/18 History multivitamin 1 tab FEEDING TUBE DAILY 09/14/17 01/25/18 History omeprazole 20 mg FEEDING TUBE DAILY 09/14/17 01/25/18 History ondansetron HCl [Zofran] 8 mg FEEDING TUBE Q6HR PRN 09/14/17 01/25/18 History polyethylene glycol 3350 17 g FEEDING TUBE DAILY 09/14/17 01/25/18 History risperidone 0.5 mg FEEDING TUBE BID 09/14/17 01/25/18 History sevelamer carbonate [Renvela] 2,400 mg FEEDING TUBE AC 09/14/17 01/25/18 History tamsulosin [Flomax] 0.4 mg PO HS 09/14/17 01/25/18 History trazodone 150 mg FEEDING TUBE HS 09/14/17 01/25/18 History ferrous sulfate 325 mg PO TID 11/18/17 01/25/18 History insulin glargine [Lantus U-100 10 unit SUB-Q DAILY 11/18/17 01/25/18 History Insulin] lovastatin 20 mg FEEDING TUBE DAILY 11/18/17 01/25/18 History midodrine 10 mg FEEDING TUBE TID 11/18/17 01/25/18 History insulin aspart U-100 [Novolog 2 sliding scale dose SUBCUT UD 01/25/18 01/25/18 History U-100 Insulin aspart] lactulose 30 ml FEEDING TUBE DAILY PRN 01/25/18 01/25/18 History metoclopramide HCl 10 mg FEEDING TUBE TID 01/25/18 01/25/18 History sennosides-docusate sodium [Senna 1 tab FEEDING TUBE BID 01/25/18 01/25/18 History Plus] tramadol 50 mg FEEDING TUBE Q6H PRN 01/25/18 01/25/18 History vancomycin 125 mg FEEDING TUBE QID 01/25/18 01/25/18 History Exam Vital signs: Vital Signs 01/24/18 23:09 01/25/18 01:26 01/25/18 03:03 Temperature 98.8 F Pulse Rate 88 82 Respiratory Rate 14 14 14 Blood Pressure 107/64 Pulse Oximetry 97 97 01/25/18 06:43 01/25/18 08:36 01/25/18 11:55 Temperature Pulse Rate 71 68 Respiratory Rate 16 Blood Pressure 114/69 103/66 Pulse Oximetry 99 99 97 01/25/18 12:15 Temperature Pulse Rate 70 Respiratory Rate 16 Blood Pressure 104/62 Pulse Oximetry 99 Intake & Output 01/24/18 01/25/18 01/25/18 18:59 06:59 18:59 Intake Total 100 / 100 Balance 100 / 100 Weight 83.915 kg Intake: IV 100 / 100 KCl 20 mEq Premix Inj 20 meq In 100 / 100 100 ml @ 50 mls/hr IV.SIG ONCE ONE Rx#:[id number] - Constitutional no acute distress - Routine HEENT Exam Head: Present: normocephalic - Routine Respiratory Exam Present: CTA bilaterally - Routine Cardiovascular Exam Present: RRR - Routine Abdominal Exam Present: soft, normoactive bowel sounds, tenderness. Absent: distended Comments: PEG tube - Routine Extremities Exam Comments: left side contracted - Routine Skin Exam Present: intact, dry - Routine Neurological Exam Present: alert, oriented X3 <Rosetta Ho - Last Filed: 01/25/18 13:09> Vital signs: Vital Signs 01/24/18 23:09 01/25/18 01:26 01/25/18 03:03 Temperature 98.8 F Pulse Rate 88 82 Respiratory Rate 14 14 14 Blood Pressure 107/64 Pulse Oximetry 97 97 01/25/18 06:43 01/25/18 08:36 01/25/18 11:55 Temperature Pulse Rate 71 68 Respiratory Rate 16 Blood Pressure 114/69 103/66 Pulse Oximetry 99 99 97 01/25/18 12:15 01/25/18 13:13 01/25/18 14:41 Temperature Pulse Rate 70 60 Respiratory Rate 16 17 Blood Pressure 104/62 Pulse Oximetry 99 01/25/18 15:20 Temperature 98 F Pulse Rate 95 H Respiratory Rate 16 Blood Pressure 104/52 L Pulse Oximetry 99 Intake & Output 01/24/18 01/25/18 01/25/18 18:59 06:59 18:59 Intake Total 100 / 100 Balance 100 / 100 Weight 83.915 kg Intake: IV 100 / 100 KCl 20 mEq Premix Inj 20 meq In 100 / 100 100 ml @ 50 mls/hr IV.SIG ONCE ONE Rx#:[id number] <Soto Latham A - Last Filed: 01/25/18 15:29> Results - Labs CBC & Chem 7: 01/25/18 11:16 01/25/18 11:16 Labs: Laboratory Results - last 24 hr 01/25/18 01/25/18 01/25/18 00:04 00:04 00:04 WBC 9.6 RBC 3.62 L Hgb 10.4 L Hct 32.0 L MCV 88.6 MCH 28.9 MCHC 32.6 RDW 18.0 H Plt Count 382 D MPV 8.8 Neut % (Auto) 82.6 H Lymph % (Auto) 10.0 [place] % (Auto) 6.2 Eos % (Auto) 0.4 Baso % (Auto) 0.8 Neut # (Auto) 7.9 H Lymph # (Auto) 1.0 [place] # (Auto) 0.6 Eos # (Auto) 0.0 Baso # (Auto) 0.1 WBC Differential . Differential Comment Auto diff final Hematology Comments PT 10.8 INR 1.1 APTT 29.8 Sodium 135 L Potassium 2.8 L* Chloride 93 L Carbon Dioxide 36.4 H Anion Gap 6 BUN 15 Creatinine 5.11 H Estimated GFR 14 L POC Glucose Random Glucose 133 H Lactic Acid Calcium 9.2 Total Bilirubin 0.3 AST 20 ALT 16 Alkaline Phosphatase 151 H Total Protein 11.3 H Albumin 3.7 Lipase 168 01/25/18 01/25/18 01/25/18 00:04 11:16 11:16 WBC 8.6 RBC 3.33 L Hgb 9.7 L Hct 29.8 L MCV 89.5 MCH 29.2 MCHC 32.6 RDW 18.1 H Plt Count 314 MPV 8.9 Neut % (Auto) 62.4 Lymph % (Auto) 21.7 [place] % (Auto) 13.1 H Eos % (Auto) 1.4 Baso % (Auto) 1.4 Neut # (Auto) 5.3 Lymph # (Auto) 1.9 [place] # (Auto) 1.1 H Eos # (Auto) 0.1 Baso # (Auto) 0.1 WBC Differential . Differential Comment Auto diff final Hematology Comments PT INR APTT Sodium 138 Potassium 4.1 D Chloride 100 Carbon Dioxide 28.6 Anion Gap 9 BUN 16 Creatinine 5.80 H Estimated GFR 12 L POC Glucose Random Glucose 46 L* Lactic Acid 1.4 Calcium 9.3 Total Bilirubin 0.4 AST 22 ALT 15 Alkaline Phosphatase 130 H Total Protein 10.2 H D Albumin 3.2 L Lipase 01/25/18 01/25/18 12:14 12:52 WBC RBC Hgb Hct MCV MCH MCHC RDW Plt Count MPV Neut % (Auto) Lymph % (Auto) [place] % (Auto) Eos % (Auto) Baso % (Auto) Neut # (Auto) Lymph # (Auto) [place] # (Auto) Eos # (Auto) Baso # (Auto) WBC Differential Differential Comment Hematology Comments PT INR APTT Sodium Potassium Chloride Carbon Dioxide Anion Gap BUN Creatinine Estimated GFR POC Glucose 56 L 147 H Random Glucose Lactic Acid Calcium Total Bilirubin AST ALT Alkaline Phosphatase Total Protein Albumin Lipase - Imaging Impressions Chest X-Ray 01/24/18 23:44 CONCLUSION: Subsegmental basilar atelectasis or scarring. No significant effusion. No pneumothorax. Abdomen/Pelvis CT 01/25/18 00:00 CONCLUSION: 1. No acute findings. 2. 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 Gastrostomy tube present. Renal cortical atrophy. <Rosetta Ho - Last Filed: 01/25/18 13:09> - Labs CBC & Chem 7: 01/25/18 11:16 01/25/18 11:16 Labs: Laboratory Results - last 24 hr 01/25/18 01/25/18 01/25/18 00:04 00:04 00:04 WBC 9.6 RBC 3.62 L Hgb 10.4 L Hct 32.0 L MCV 88.6 MCH 28.9 MCHC 32.6 RDW 18.0 H Plt Count 382 D MPV 8.8 Neut % (Auto) 82.6 H Lymph % (Auto) 10.0 [place] % (Auto) 6.2 Eos % (Auto) 0.4 Baso % (Auto) 0.8 Neut # (Auto) 7.9 H Lymph # (Auto) 1.0 [place] # (Auto) 0.6 Eos # (Auto) 0.0 Baso # (Auto) 0.1 WBC Differential . Differential Comment Auto diff final Hematology Comments PT 10.8 INR 1.1 APTT 29.8 Sodium 135 L Potassium 2.8 L* Chloride 93 L Carbon Dioxide 36.4 H Anion Gap 6 BUN 15 Creatinine 5.11 H Estimated GFR 14 L POC Glucose Random Glucose 133 H Lactic Acid Calcium 9.2 Total Bilirubin 0.3 AST 20 ALT 16 Alkaline Phosphatase 151 H Total Protein 11.3 H Albumin 3.7 Lipase 168 01/25/18 01/25/18 01/25/18 00:04 11:16 11:16 WBC 8.6 RBC 3.33 L Hgb 9.7 L Hct 29.8 L MCV 89.5 MCH 29.2 MCHC 32.6 RDW 18.1 H Plt Count 314 MPV 8.9 Neut % (Auto) 62.4 Lymph % (Auto) 21.7 [place] % (Auto) 13.1 H Eos % (Auto) 1.4 Baso % (Auto) 1.4 Neut # (Auto) 5.3 Lymph # (Auto) 1.9 [place] # (Auto) 1.1 H Eos # (Auto) 0.1 Baso # (Auto) 0.1 WBC Differential . Differential Comment Auto diff final Hematology Comments PT INR APTT Sodium 138 Potassium 4.1 D Chloride 100 Carbon Dioxide 28.6 Anion Gap 9 BUN 16 Creatinine 5.80 H Estimated GFR 12 L POC Glucose Random Glucose 46 L* Lactic Acid 1.4 Calcium 9.3 Total Bilirubin 0.4 AST 22 ALT 15 Alkaline Phosphatase 130 H Total Protein 10.2 H D Albumin 3.2 L Lipase 01/25/18 01/25/18 01/25/18 12:14 12:52 14:50 WBC RBC Hgb Hct MCV MCH MCHC RDW Plt Count MPV Neut % (Auto) Lymph % (Auto) [place] % (Auto) Eos % (Auto) Baso % (Auto) Neut # (Auto) Lymph # (Auto) [place] # (Auto) Eos # (Auto) Baso # (Auto) WBC Differential Differential Comment Hematology Comments PT INR APTT Sodium Potassium Chloride Carbon Dioxide Anion Gap BUN Creatinine Estimated GFR POC Glucose 56 L 147 H 109 Random Glucose Lactic Acid Calcium Total Bilirubin AST ALT Alkaline Phosphatase Total Protein Albumin Lipase - Imaging Impressions Chest X-Ray 01/24/18 23:44 CONCLUSION: Subsegmental basilar atelectasis or scarring. No significant effusion. No pneumothorax. Abdomen/Pelvis CT 01/25/18 00:00 CONCLUSION: 1. No acute findings. 2. 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 Gastrostomy tube present. Renal cortical atrophy. <Soto Latham - Last Filed: 01/25/18 15:29> Assessment and Plan - Plan - Nausea/vomiting/coffee ground emesis, low H&H and positive guaiac dark stools. presents to the ED from a SNF for coffee ground emesis. Pt with low H& H and positive guaiac dark stools. He reports diffused abdominal pain. Reports diarrhea, denies hematochezia. Per SNF, the patient tested positive for C. difficile on 01/18/2018 and was started on p.o. vancomycin on 01/19/2018. Per admission note, The patient has been having a hard time reaching his goal tube feeds. Reglan was added. EGD on 12/24/17---> showed LA class D esophagitis, normal mucosa of the stomach, normal mucosa in the entire duodenum, hiatal hernia. benign bx - ESRD- on dialysis - Anemia- seems to be base line. Multifactorial, Gi bleed vs chronic dz - s/p peg tube placement with IR on 01/06/18 The patient has been having a hard time reaching his goal tube feeds. On Reglan - C-diff per SNF- On Vanco po, stools pending, hasn't had bm since admission - past medical history of chronic kidney disease on dialysis, insulin-dependant diabetes, hypertension, CVA with left sided paralysis, and esophagitis Plan: - NPO - EGD today - consult IR to evaluate PEG tube, pt would benefit of switching to G-J tube - Supportive care - If EGD negative, consider colonoscopy - Monitor hh - Transfuse as needed - Cont. PPI - Pt seen and examined by Dr. Latham and myself and this note is written on his behalf. <Rosetta Ho - Last Filed: 01/25/18 13:09> - Attending Attestation Seen and examined, will proceed with EGD today. Further recommendations to follow. Will follow up with you. Thank you for the consult. <Soto Latham - Last Filed: 01/25/18 15:29>
[2018-01-25] MEDS: Insulin NovoLOG Aspart Correctional Sugar Inj SQ SCH ×2 (14:40→20:20)
[2018-01-25 15:15] LABS: Hepatitits B Surface Antigen Nonreactive (Nonreactive)
--- NOTE | 2018-01-25 15:17 | GIPROC ---
[facility] [address]. 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 TOPICAL ANESTHETIC: none CONSENT: The patient understands the risks and benefits of the procedure and understands that these risks include, but are not limited to: sedation, allergic reaction, infection, perforation and/or bleeding. Alternative means of evaluation and treatment include, among others: physical exam, x-rays, and/or surgical intervention. The patient elects to proceed with this endoscopic procedure. medical equipment was checked for proper function. Hand hygiene and appropriate measures for infection prevention was taken. After the risks, benefits and alternatives of the procedure were thoroughly explained, Informed consent was verified, confirmed and timeout was successfully executed by the treatment team. The patient was anesthetized with topical anesthesia and the Pentax [id number] endoscope was introduced through the mouth and advanced to the second portion of the duodenum. Retroflexion was performed and was normal The gastroscope was then slowly withdrawn and removed. ESOPHAGUS: There was LA Class B esophagitis noted. Multiple biopsies were performed. STOMACH: The mucosa of the stomach appeared normal. A biopsy was performed. A G tube was found in the gastric body. DUODENUM: Moderate duodenal inflammation was found in the duodenal bulb. ADVERSE EVENTS: There were no complications. IMPRESSIONS: 1. There was LA Class B esophagitis noted; multiple biopsies were performed 2. The mucosa of the stomach appeared normal; biopsy was performed 3. Was found in the gastric body 4. Duodenal inflammation was found in the duodenal bulb 5. Retroflexion was performed and was normal RECOMMENDATIONS: 1. Await biopsy results. Biopsy results will not be ready for 7-10 days. If you don't hear from us in two weeks, call our office for biopsy results. 2. Continue PPI 3. Colonoscopy PATIENT CONDITION: stable DISPOSITION: Observation REPEAT EXAM: NONE Soto Latham MD eSigned: Soto Latham MD 01/25/2018 3:17 PM cc: PATIENT NAME: Mirza Sharpe MR#: [id number]
[2018-01-25 16:00] LABS: Hepatitis A IgM Antibody Nonreactive (Nonreactive)
[2018-01-25] MEDS ORDERED: PEG 3350/E-Lyte Soln 4000 ML Bottle PO ONE (17:00)
[2018-01-25] MEDS: traZODone 100 MG Tablet G-TUBE SCH (21:39)
[2018-01-25] MEDS: lamoTRIgine 100 MG Tablet G-TUBE SCH (21:39)
[2018-01-25] MEDS: Mirtazapine 15 MG Tablet G-TUBE SCH (21:43)
[2018-01-25] MEDS: Gabapentin Liq 250 MG/5 ML UDC G-TUBE SCH (21:44)
[2018-01-26] MEDS: Insulin NovoLOG Aspart Correctional Sugar Inj SQ SCH ×4 (00:21→18:49)
--- NOTE | 2018-01-26 09:51 | P.PNNP ---
Subjective Interval history: Blood pressure low overnight and was hypoglycemic. Plan for colonoscopy today with HD after. <Khalida Laura - Last Filed: 01/26/18 10:57> Physical Exam Vital signs: Vital Signs 01/25/18 11:55 01/25/18 12:15 01/25/18 13:13 Temperature Pulse Rate 70 60 Respiratory Rate 16 Blood Pressure 104/62 Pulse Oximetry 97 99 01/25/18 14:41 01/25/18 15:20 01/25/18 20:00 Temperature 98 F Pulse Rate 95 H Respiratory Rate 17 16 12 Blood Pressure 104/52 L Pulse Oximetry 99 01/25/18 23:48 01/26/18 00:06 01/26/18 04:00 Temperature 97.6 F 97.6 F Pulse Rate 60 67 Respiratory Rate 12 12 Blood Pressure 76/48 L 94/56 L 76/46 L Pulse Oximetry 100 93 L 01/26/18 04:38 01/26/18 09:00 Temperature 97.4 F L Pulse Rate 65 Respiratory Rate 14 Blood Pressure 95/54 L 93/57 L Pulse Oximetry 99 Intake & Output 01/25/18 01/26/18 01/26/18 18:59 06:59 18:59 Intake Total 150 / 150 Balance 150 / 150 Weight 79.379 kg 79.379 kg Intake: IV 100 / 100 KCl 20 mEq Premix Inj 20 meq In 100 / 100 100 ml @ 50 mls/hr IV.SIG ONCE ONE Rx#:[id number] Anesthesia Amount 50 / 50 Other: Weight On Admission 79.379 kg Narrative: GENERAL: NAD, Alert and awake NECK: Supple, trachea midline. No JVD CARDIOVASCULAR: Regular rate and rhythm without murmurs, gallops, or rubs. AVF left leg with positive thrill and bruit RESPIRATORY: Breath sounds equal bilaterally. No accessory muscle use. GASTROINTESTINAL: Abdomen soft, non-tender, nondistended. MUSCULOSKELETAL: No cyanosis, or edema. SKIN: Warm and dry. <Khalida Laura - Last Filed: 01/26/18 10:57> Vital signs: Vital Signs 01/29/18 00:00 01/29/18 03:16 01/29/18 07:05 Temperature 98.3 F 97.9 F Pulse Rate 78 78 77 Respiratory Rate 16 16 Blood Pressure 77/45 L 85/41 L Pulse Oximetry 92 L 92 L 01/29/18 08:00 01/29/18 12:00 01/29/18 16:00 Temperature 98.3 F 98.4 F 99.4 F Pulse Rate 75 82 80 Respiratory Rate 16 16 16 Blood Pressure 97/61 L 114/67 118/63 Pulse Oximetry 95 95 96 01/29/18 20:00 Temperature 98.9 F Pulse Rate 81 Respiratory Rate 16 Blood Pressure 99/57 L Pulse Oximetry 95 Intake & Output 01/29/18 01/29/18 01/30/18 06:59 18:59 06:59 Intake Total 450 / 450 Balance 450 / 450 Intake: IV 450 / 450 Flexbumin 25% Inj 100 ML @ 50 100 / 100 mls/hr IV.SIG ONCE ONE Rx#: [id number] KCl 20 mEq Premix Inj 20 meq In 100 / 100 100 ml @ 50 mls/hr IV.SIG ONCE ONE Rx#:[id number] NS Inj 250 ML @ 500 mls/hr IV. 250 / 250 SIG BOLUS FLAQUITA Rx#:[id number] <Lizeth Bell - Last Filed: 01/29/18 21:50> Assessment and Plan - Assessment (1) End stage renal disease on dialysis Code(s): N18.6 - End stage renal disease; Z99.2 - Dependence on renal dialysis Status: Acute Plan: End stage renal disease on hemodialysis on Tuesday, , and Tuesday. Left leg with AVF positive thrill and bruit Avoid gadolinium If remains NPO after colonscopy will need IVF Epogen with dialysis Continue midodrine for blood pressure support. Hemodialysis today 3K bath will remove fluid as tolerated. (2) Diabetes Code(s): E11.9 - Type 2 diabetes mellitus without complications Status: Chronic Qualifiers: Diabetes mellitus type: type 2 Chronic kidney disease stage: on chronic dialysis Plan: Maintain blood sugar between 140 mg/dl to 180 mg/dl while hospitalized. (3) Nausea and vomiting Code(s): R11.2 - Nausea with vomiting, unspecified Status: Acute Qualifiers: Vomiting type: unspecified Vomiting Intractability: non-intractable Qualified Code(s): R11.2 - Nausea with vomiting, unspecified Plan: GI consulted for further recommendations. CT with no acute finding. Colonoscopy today (4) Anemia Code(s): D64.9 - Anemia, unspecified Status: Acute Plan: HGB at 9.7 Epogen with dialysis GI consulted for further evaluation for GI losses. Colonoscopy today <Khalida Laura - Last Filed: 01/26/18 10:57> - Assessment (1) End stage renal disease on dialysis Code(s): N18.6 - End stage renal disease; Z99.2 - Dependence on renal dialysis Status: Acute Plan: Patient seen and examined, agree with above. GI following , for coloscopy. HD today. (2) Diabetes Code(s): E11.9 - Type 2 diabetes mellitus without complications Status: Chronic Qualifiers: Diabetes mellitus type: type 2 Chronic kidney disease stage: on chronic dialysis (3) Nausea and vomiting Code(s): R11.2 - Nausea with vomiting, unspecified Status: Acute Qualifiers: Vomiting type: unspecified Vomiting Intractability: non-intractable Qualified Code(s): R11.2 - Nausea with vomiting, unspecified (4) Anemia Code(s): D64.9 - Anemia, unspecified Status: Acute <Lizeth Bell - Last Filed: 01/29/18 21:50>
--- NOTE | 2018-01-26 10:12 | P.PNIM ---
Subjective Interval history: Distress has improved. Slight downward trend in hemoglobin. Problems with hypotension and hypoglycemia overnight. Physical Exam Vital signs: Vital Signs 01/25/18 11:55 01/25/18 12:15 01/25/18 13:13 Temperature Pulse Rate 70 60 Respiratory Rate 16 Blood Pressure 104/62 Pulse Oximetry 97 99 01/25/18 14:41 01/25/18 15:20 01/25/18 20:00 Temperature 98 F Pulse Rate 95 H Respiratory Rate 17 16 12 Blood Pressure 104/52 L Pulse Oximetry 99 01/25/18 23:48 01/26/18 00:06 01/26/18 04:00 Temperature 97.6 F 97.6 F Pulse Rate 60 67 Respiratory Rate 12 12 Blood Pressure 76/48 L 94/56 L 76/46 L Pulse Oximetry 100 93 L 01/26/18 04:38 01/26/18 09:00 Temperature 97.4 F L Pulse Rate 65 Respiratory Rate 14 Blood Pressure 95/54 L 93/57 L Pulse Oximetry 99 Intake & Output 01/25/18 01/26/18 01/26/18 18:59 06:59 18:59 Intake Total 150 / 150 Balance 150 / 150 Weight 79.379 kg 79.379 kg Intake: IV 100 / 100 KCl 20 mEq Premix Inj 20 meq In 100 / 100 100 ml @ 50 mls/hr IV.SIG ONCE ONE Rx#:[id number] Anesthesia Amount 50 / 50 Other: Weight On Admission 79.379 kg Narrative: GENERAL: NAD, A&Ox1 HEAD: Normocephalic. NECK: Supple, trachea midline. No lymphadenopathy. EYES: No scleral icterus. No injection or drainage. CARDIOVASCULAR: Regular rate and rhythm without murmurs, gallops, or rubs. RESPIRATORY: Breath sounds equal bilaterally. No accessory muscle use. GASTROINTESTINAL: Abdomen soft, non-tender, nondistended. MUSCULOSKELETAL: No cyanosis, or edema. SKIN: Warm and dry. NEURO: No focal neurological deficits. Results - Labs CBC & Chem 7: 01/25/18 11:16 01/25/18 11:16 Laboratory Results - last 24 hr 01/25/18 01/25/18 01/25/18 11:16 11:16 12:14 WBC 8.6 RBC 3.33 L Hgb 9.7 L Hct 29.8 L MCV 89.5 MCH 29.2 MCHC 32.6 RDW 18.1 H Plt Count 314 MPV 8.9 Neut % (Auto) 62.4 Lymph % (Auto) 21.7 Burnett % (Auto) 13.1 H Eos % (Auto) 1.4 Baso % (Auto) 1.4 Neut # (Auto) 5.3 Lymph # (Auto) 1.9 Burnett # (Auto) 1.1 H Eos # (Auto) 0.1 Baso # (Auto) 0.1 WBC Differential . Differential Comment Auto diff final Hematology Comments Sodium 138 Potassium 4.1 D Chloride 100 Carbon Dioxide 28.6 Anion Gap 9 BUN 16 Creatinine 5.80 H Estimated GFR 12 L POC Glucose 56 L Random Glucose 46 L* Calcium 9.3 Total Bilirubin 0.4 AST 22 ALT 15 Alkaline Phosphatase 130 H Total Protein 10.2 H D Albumin 3.2 L Hepatitis A IgM Ab Hep Bs Antigen Hep B Core IgM Ab Hep C IgG Ab 01/25/18 01/25/18 01/25/18 12:52 14:20 14:50 WBC RBC Hgb Hct MCV MCH MCHC RDW Plt Count MPV Neut % (Auto) Lymph % (Auto) Burnett % (Auto) Eos % (Auto) Baso % (Auto) Neut # (Auto) Lymph # (Auto) Burnett # (Auto) Eos # (Auto) Baso # (Auto) WBC Differential Differential Comment Hematology Comments Sodium Potassium Chloride Carbon Dioxide Anion Gap BUN Creatinine Estimated GFR POC Glucose 147 H 109 Random Glucose Calcium Total Bilirubin AST ALT Alkaline Phosphatase Total Protein Albumin Hepatitis A IgM Ab Nonreactive Hep Bs Antigen Nonreactive Hep B Core IgM Ab Nonreactive Hep C IgG Ab Reactive H 01/25/18 01/25/18 01/25/18 19:14 19:53 21:34 WBC RBC Hgb Hct MCV MCH MCHC RDW Plt Count MPV Neut % (Auto) Lymph % (Auto) Burnett % (Auto) Eos % (Auto) Baso % (Auto) Neut # (Auto) Lymph # (Auto) Burnett # (Auto) Eos # (Auto) Baso # (Auto) WBC Differential Differential Comment Hematology Comments Sodium Potassium Chloride Carbon Dioxide Anion Gap BUN Creatinine Estimated GFR POC Glucose 60 L 68 173 H Random Glucose Calcium Total Bilirubin AST ALT Alkaline Phosphatase Total Protein Albumin Hepatitis A IgM Ab Hep Bs Antigen Hep B Core IgM Ab Hep C IgG Ab 01/26/18 01/26/18 00:08 06:48 WBC RBC Hgb Hct MCV MCH MCHC RDW Plt Count MPV Neut % (Auto) Lymph % (Auto) Burnett % (Auto) Eos % (Auto) Baso % (Auto) Neut # (Auto) Lymph # (Auto) Burnett # (Auto) Eos # (Auto) Baso # (Auto) WBC Differential Differential Comment Hematology Comments Sodium Potassium Chloride Carbon Dioxide Anion Gap BUN Creatinine Estimated GFR POC Glucose 109 88 Random Glucose Calcium Total Bilirubin AST ALT Alkaline Phosphatase Total Protein Albumin Hepatitis A IgM Ab Hep Bs Antigen Hep B Core IgM Ab Hep C IgG Ab Assessment and Plan - Plan 62-year-old male admitted secondary to coffee-ground emesis with recent history of C. difficile colitis, hypotension, and hypoglycemia. Hypotension Continue IV Hydration Follow BPs Avoid HTN medications Hypoglycemia NPO for now D5 IV fluids added to maintenance fluids Follow blood sugars N/V Abdominal pain Subacute C diff colitis GI following Continue PPI Keep patient n.p.o. for now Antiemetics as needed Continue enteric vancomycin Hyperkalemia End-stage renal disease Continue dialysis Nephrology following Follow electrolytes Follow renal function Anemia Slight downward trend No recurrence of hematemesis Follow CBC Transfuse if needed Diabetes mellitus type 2 Follow blood sugars Insulin sliding scale N.p.o. for now Dyspnea Resolved Follow clinically CVA Left-sided hemiplegia Continue PT Continue OT DVT prophylaxis Continue SCDs
[2018-01-26] MEDS: Metoclopramide Liq 10 MG/10 ML UDC G-TUBE SCH ×3 (10:31→18:54)
[2018-01-26] MEDS: Escitalopram 10 MG Tablet G-TUBE SCH (10:31)
[2018-01-26] MEDS: KCL 20 mEq/D5W/NaCl 0.9% Inj 1,000 ML IV.CONT SCH ×2 (10:31→11:23)
[2018-01-26] MEDS ORDERED: PEG 3350/E-Lyte Soln 4000 ML Bottle PO ONE (16:00)
--- NOTE | 2018-01-26 16:52 | P.PNGI ---
Subjective Interval history: Patient lying supine on stretcher Currently undergoing hemodialysis Explained plan for colonoscopy tomorrow with prep. <Ángela Garcia - Last Filed: 01/26/18 16:48> Physical Exam Vital signs: Vital Signs 01/25/18 20:00 01/25/18 23:48 01/26/18 00:06 Temperature 97.6 F Pulse Rate 60 Respiratory Rate 12 12 Blood Pressure 76/48 L 94/56 L Pulse Oximetry 100 01/26/18 04:00 01/26/18 04:38 01/26/18 09:00 Temperature 97.6 F 97.4 F L Pulse Rate 67 74 Respiratory Rate 12 14 Blood Pressure 76/46 L 95/54 L 93/57 L Pulse Oximetry 93 L 99 01/26/18 12:08 01/26/18 12:13 Temperature 98.1 F Pulse Rate 82 73 Respiratory Rate 16 Blood Pressure 84/52 L Pulse Oximetry 100 Intake & Output 01/25/18 01/26/18 01/26/18 18:59 06:59 18:59 Intake Total 150 / 150 Balance 150 / 150 Weight 79.379 kg 79.379 kg Intake: IV 100 / 100 KCl 20 mEq Premix Inj 20 meq In 100 / 100 100 ml @ 50 mls/hr IV.SIG ONCE ONE Rx#:[id number] Anesthesia Amount 50 / 50 Other: Date of Last Bowel Movement 01/25/18 Weight On Admission 79.379 kg - Constitutional chronically ill appearing - Routine HEENT Exam Head: Present: normocephalic - Routine Respiratory Exam Present: CTA bilaterally - Routine Cardiovascular Exam Present: RRR - Routine Abdominal Exam Present: soft, normoactive bowel sounds, ostomy. Absent: tenderness, distended , guarding, firm Comments: Gastrostomy tube - Routine Skin Exam Present: dry, warm - Routine Neurological Exam Present: alert - Routine Psychiatric Exam Present: cooperative <Ángela Garcia - Last Filed: 01/26/18 16:48> Vital signs: Vital Signs 01/25/18 20:00 01/25/18 23:48 01/26/18 00:06 Temperature 97.6 F Pulse Rate 60 Respiratory Rate 12 12 Blood Pressure 76/48 L 94/56 L Pulse Oximetry 100 01/26/18 04:00 01/26/18 04:38 01/26/18 09:00 Temperature 97.6 F 97.4 F L Pulse Rate 67 74 Respiratory Rate 12 14 Blood Pressure 76/46 L 95/54 L 93/57 L Pulse Oximetry 93 L 99 01/26/18 12:08 01/26/18 12:13 Temperature 98.1 F Pulse Rate 82 73 Respiratory Rate 16 Blood Pressure 84/52 L Pulse Oximetry 100 Intake & Output 01/25/18 01/26/18 01/26/18 18:59 06:59 18:59 Intake Total 150 / 150 Balance 150 / 150 Weight 79.379 kg 79.379 kg Intake: IV 100 / 100 KCl 20 mEq Premix Inj 20 meq In 100 / 100 100 ml @ 50 mls/hr IV.SIG ONCE ONE Rx#:[id number] Anesthesia Amount 50 / 50 Other: Date of Last Bowel Movement 01/25/18 Weight On Admission 79.379 kg <Soto Ascencio - Last Filed: 01/26/18 17:02> Results - Labs CBC & Chem 7: 01/25/18 11:16 01/25/18 11:16 Laboratory Results - last 24 hr 01/25/18 01/25/18 01/25/18 19:14 19:53 21:34 POC Glucose 60 L 68 173 H 01/26/18 01/26/18 01/26/18 00:08 06:48 12:04 POC Glucose 109 88 122 H <Ángela Garcia - Last Filed: 01/26/18 16:48> - Labs CBC & Chem 7: 01/25/18 11:16 01/25/18 11:16 Laboratory Results - last 24 hr 01/25/18 01/25/18 01/25/18 19:14 19:53 21:34 POC Glucose 60 L 68 173 H 01/26/18 01/26/18 01/26/18 00:08 06:48 12:04 POC Glucose 109 88 122 H <Soto Ascencio - Last Filed: 01/26/18 17:02> Assessment and Plan - Plan - Nausea/vomiting/coffee ground emesis, low H&H and positive guaiac dark stools. presents to the ED from a SNF for coffee ground emesis. Pt with low H& H and positive guaiac dark stools. He reports diffused abdominal pain. Reports diarrhea, denies hematochezia. Per SNF, the patient tested positive for C. difficile on 01/18/2018 and was started on p.o. vancomycin on 01/19/2018. Per admission note, The patient has been having a hard time reaching his goal tube feeds. Reglan was added. EGD on 12/24/17---> showed LA class D esophagitis, normal mucosa of the stomach, normal mucosa in the entire duodenum, hiatal hernia. benign bx - ESRD- on dialysis - Anemia- seems to be base line. Multifactorial, Gi bleed vs chronic dz - s/p peg tube placement with IR on 01/06/18 The patient has been having a hard time reaching his goal tube feeds. On Reglan - C-diff per SNF- On Vanco po, stools pending, hasn't had bm since admission - past medical history of chronic kidney disease on dialysis, insulin-dependant diabetes, hypertension, CVA with left sided paralysis, and esophagitis 01/26/2018 Patient awake and alert, currently undergoing hemodialysis treatment. Reports no BM today. No bleeding reported. 01/25/2018 hemoglobin 9.7 hematocrit 29.8 stable INR 1.1 Plan for colonoscopy in a.m. Plan: -NPO -Consent obtained for colonoscopy -Donavon prep -Colonoscopy in a.m. -Monitor for bleeding -Monitor H&H -Transfuse if needed -Continue PPI -Supportive care -Further recommendations to follow Pt seen and examined by Dr. Ascencio and myself and this note is written on his behalf. - Attending Attestation Dr. Ascencio <Ángela Garcia - Last Filed: 01/26/18 16:48> - Attending Attestation Agree with the plan as above. Colonoscopy in AM. <Soto Ascencio - Last Filed: 01/26/18 17:02>
[2018-01-26 17:04] LABS: Baso # (Auto) 0.1 th/mm3 (0.0-0.2); Eos # (Auto) 0.3 th/mm3 (0.0-0.4); Eos % (Auto) 4.5 % (0.0-4.0); Hematocrit 28.9 % (39.0-51.0); Hemoglobin 9.3 gm/dL (13.0-17.0); Lymph # (Auto) 1.5 th/mm3 (1.0-4.8); Lymph % (Auto) 22.4 % (9.0-44.0); Mean Corpuscular HGB Conc 32.1 % (32.0-36.0); Mean Corpuscular Hemoglobin 28.8 pg (27.0-34.0); Mean Corpuscular Volume 89.5 fL (80.0-100.0); Mono # (Auto) 0.6 th/mm3 (0.0-0.9); Mono % (Auto) 8.9 % (0.0-8.0); Neut # (Auto) 4.3 th/mm3 (1.8-7.7); Neut % (Auto) 63.2 % (16.0-70.0); Platelet Count 343 th/mm3 (150-450); Red Blood Count 3.23 mil/mm3 (4.50-5.90); Red Cell Distribution Width 18.9 % (11.6-17.2); White Blood Count 6.8 th/mm3 (4.0-11.0)
[2018-01-26 20:16] LABS: Alanine Aminotransferase 14 U/L (12-78); Albumin 3.2 g/dL (3.4-5.0); Alkaline Phosphatase 128 U/L (45-117); Anion Gap 9 meq/L (5-15); Aspartate Aminotransferase 15 U/L (15-37); Blood Urea Nitrogen 9 mg/dL (7-18); Calcium 9.5 mg/dL (8.5-10.1); Carbon Dioxide 31.2 meq/L (21.0-32.0); Chloride 97 meq/L (98-107); Glomerular Filtration Rate 17 mL/min (>89); Glucose,Random 160 mg/dL (74-106); Potassium 3.2 meq/L (3.5-5.1); Sodium 137 meq/L (136-145); Total Protein 10.1 g/dL (6.4-8.2)
[2018-01-26] MEDS: Gabapentin Liq 250 MG/5 ML UDC G-TUBE SCH (22:02)
[2018-01-26] MEDS: traZODone 100 MG Tablet G-TUBE SCH (22:05)
[2018-01-26] MEDS: Mirtazapine 15 MG Tablet G-TUBE SCH (22:06)
[2018-01-26] MEDS: lamoTRIgine 100 MG Tablet G-TUBE SCH (22:06)
[2018-01-27] MEDS: Insulin NovoLOG Aspart Correctional Sugar Inj SQ SCH ×4 (00:08→17:04)
[2018-01-27] MEDS ORDERED: Sodium Chlor 0.9% Inj 250 ML IV.SIG SCH (01:00)
[2018-01-27] MEDS: KCL 20 mEq/D5W/NaCl 0.9% Inj 1,000 ML IV.CONT SCH (04:05)
[2018-01-27 07:03] LABS: Alanine Aminotransferase 13 U/L (12-78); Albumin 2.6 g/dL (3.4-5.0); Anion Gap 7 meq/L (5-15); Aspartate Aminotransferase 17 U/L (15-37); Blood Urea Nitrogen 11 mg/dL (7-18); Calcium 8.5 mg/dL (8.5-10.1); Carbon Dioxide 30.7 meq/L (21.0-32.0); Chloride 100 meq/L (98-107); Glomerular Filtration Rate 14 mL/min (>89); Glucose,Random 102 mg/dL (74-106); Potassium 3.9 meq/L (3.5-5.1); Sodium 138 meq/L (136-145)
[2018-01-27 07:18] LABS: Alkaline Phosphatase 106 U/L (45-117); Total Protein 8.8 g/dL (6.4-8.2)
[2018-01-27] MEDS ORDERED: Chlorhexidine Gluconate 2% 1 Pack (2 Cloths) TOPICAL ONE (11:45)
[2018-01-27] MEDS ORDERED: Sodium Chlor 0.9% Inj 500 ML IV.CONT ONE (11:45)
[2018-01-27] MEDS ORDERED: Metoprolol Tartrate 25 MG Tablet PO ONE (11:45)
--- NOTE | 2018-01-27 11:51 | P.PNIM ---
Subjective Interval history: Patient is nonverbal. No acute distress today. Patient resting comfortably. Colonoscopy planned for today. G-tube change versus revision/relocation also plan for today. Physical Exam Vital signs: Last Vital Signs Temp 97.6 F 01/27/18 11:25 Pulse 84 01/27/18 11:25 Resp 18 01/27/18 11:25 BP 93/51 L 01/27/18 11:25 Pulse Ox 95 01/27/18 11:25 Intake & Output 01/25/18 01/26/18 01/27/18 01/28/18 06:59 06:59 06:59 06:59 Intake Total 150 / 150 250 / 250 250 / 250 Output Total 2300 / 2300 Balance 150 / 150 -2049 / -2049 250 / 250 Weight 83.915 kg 79.379 kg 72.6 kg Narrative: GENERAL: NAD, A&Ox1 HEAD: Normocephalic. NECK: Supple, trachea midline. No lymphadenopathy. EYES: No scleral icterus. No injection or drainage. CARDIOVASCULAR: Regular rate and rhythm without murmurs, gallops, or rubs. RESPIRATORY: Breath sounds equal bilaterally. No accessory muscle use. GASTROINTESTINAL: Abdomen soft, non-tender, nondistended. MUSCULOSKELETAL: No cyanosis, or edema. SKIN: Warm and dry. NEURO: No focal neurological deficits. Results Labs CBC & Chem 7: 01/26/18 16:30 01/27/18 05:55 Assessment and Plan (1) End stage renal disease on dialysis: Code(s): N18.6 - End stage renal disease; Z99.2 - Dependence on renal dialysis Status: Acute (2) Diabetes: Code(s): E11.9 - Type 2 diabetes mellitus without complications Status: Chronic (3) Nausea and vomiting: Code(s): R11.2 - Nausea with vomiting, unspecified Status: Acute (4) Anemia: Code(s): D64.9 - Anemia, unspecified Status: Acute Plan 62-year-old male admitted secondary to coffee-ground emesis with recent history of C. difficile colitis, hypotension, and hypoglycemia. Colonoscopy plan for today. G-tube revision/relocation plan for today. Patient is n.p.o. Continue following patient clinically. Hypotension Continue IV Hydration Follow BPs Avoid HTN medications Hypoglycemia NPO for now D5 IV fluids added to maintenance fluids Follow blood sugars N/V Abdominal pain Subacute C diff colitis GI following Continue PPI Keep patient n.p.o. for now Antiemetics as needed Continue enteric vancomycin Hyperkalemia End-stage renal disease Continue dialysis Nephrology following Follow electrolytes Follow renal function Anemia Slight downward trend No recurrence of hematemesis Follow CBC Transfuse if needed Diabetes mellitus type 2 Follow blood sugars Insulin sliding scale N.p.o. 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 use: Diabetes mellitus complication status: Diabetes mellitus complication detail: Diabetic retinopathy severity: Proliferative retinopathy type: Diabetes mellitus macular edema: Laterality: Chronic kidney disease stage: on chronic dialysis (2) Nausea and vomiting Qualifiers: Vomiting Intractability: non-intractable Vomiting type: unspecified Qualified Code(s): R11.2 - Nausea with vomiting, unspecified (3) Anemia Qualifiers: Anemia type: Iron deficiency anemia type: Vitamin B12 deficiency anemia type: Folate deficiency anemia type: Bone marrow failure anemia type: Hemolytic anemia type: Other causes of anemia: Chronic kidney disease stage :
[2018-01-27] MEDS: Escitalopram 10 MG Tablet G-TUBE SCH (12:31)
[2018-01-27] MEDS ORDERED: fentaNYL Citrate Inj 250 MCG/5 ML Ampul ONE (12:53)
[2018-01-27] MEDS ORDERED: Lidocaine PF 1% Inj 30 ML Vial ONE (13:14)
--- NOTE | 2018-01-27 14:21 | P.RAD ---
Post Procedure Progress Note - Pre Procedure Diagnosis (1) Aspiration pneumonia of both lungs - Post Procedure Diagnosis (1) Aspiration pneumonia of both lungs - Procedure Information Procedure Date: 01/27/18 Supervising Radiologist: Lito Rios Jr, MD Proceduralist/Assist: Tan Nuno Anesthesia: Conscious Sedation - Plan of Activity Patient to Unit: [facility] Patient Condition: Good See PACS Report for procedural detail/treatment. Feeding Tube Feeding Tube: Gastro/Jejunostomy Procedure: Conversion Sami Tube Size: 22 Findings: 18 F G tube converted to 22F GJ tube. Plan: To [facility]
[2018-01-27] MEDS: Metoclopramide Liq 10 MG/10 ML UDC G-TUBE SCH ×3 (15:03→17:20)
--- NOTE | 2018-01-27 15:11 | IR ---
EXAM DATE: 01/27/2018 2:56 PM EST AGE/SEX: 62 years / Male INDICATIONS: Patient presents with esophagitis post feeding tube in need of gastrostomy tube convers ion to gastrojejunostomy tube placement. CLINICAL DATA: This is the patient's subsequent encounter. Patient reports that signs and symptoms h ave been present for 2 days and indicates a pain score of 0/10. MEDICAL/SURGICAL HISTORY: . Anxiety, Benign prostatic hyperplasia, Chronic kidney disease, Bipo lar disorder, Cerebral infarction, Contracture of left hand, Dysphagia, GERD, Heart failure, Hyperlip idemia, Osteoporosis, Hypothyroidism, PVD, Diabetes, Schizophrenia. . Cardiac catheterization. COMPARISON: No prior exams available for comparison. FLUORO TIME (min): 16.1 IMAGE SERIES: 3 SEDATION TIME (min): 50 CONTRAST (cc): 40 Omnipaque (iohexol) 350 MEDICATION(S): 2 mg midazolam (Versed) IV 100 mcg fentanyl (Sublimaze) IV DEVICE(S): 22 Nepalese Transgastric tube . . PROCEDURE: 1. Fluoroscopically guided gastrostomy to gastrojejunostomy conversion 2. Conscious sedation with continuous EKG and oximetry monitoring. TECHNIQUE: Under sterile conditions and using aseptic technique a guidewire was passed through the previous dayana rostomy tube and the wire was manipulated into the small bowel. The prescribed gastrojejunostomy tube was placed over the guidewire. The balloon was inflated with appropriate volume of saline. Injection of positive contrast demonstrates good position of the gastric and jejunal sections of the tube. Conscious sedation was performed with the prescribed dosages and duration as above in the presence of an independent trained radiology nurse to assist in the monitoring of the patient. EKG and oximetry remained stable throughout the procedure. CONCLUSION: 1. Uncomplicated conversion of a gastrostomy tube to a gastrojejunostomy tube. Electronically signed by: Lito Rios MD 01/27/2018 3:10 PM EST
[2018-01-27 20:33] LABS: Baso # (Auto) 0.1 th/mm3 (0.0-0.2); Baso % (Auto) 0.7 % (0.0-2.0); Eos # (Auto) 0.1 th/mm3 (0.0-0.4); Eos % (Auto) 1.9 % (0.0-4.0); Hematocrit 25.8 % (39.0-51.0); Hemoglobin 8.2 gm/dL (13.0-17.0); Lymph # (Auto) 1.8 th/mm3 (1.0-4.8); Lymph % (Auto) 26.1 % (9.0-44.0); Mean Corpuscular HGB Conc 31.7 % (32.0-36.0); Mean Corpuscular Hemoglobin 28.9 pg (27.0-34.0); Mean Corpuscular Volume 91.2 fL (80.0-100.0); Mean Platelet Volume 8.3 fL (7.0-11.0); Mono # (Auto) 0.7 th/mm3 (0.0-0.9); Mono % (Auto) 10.1 % (0.0-8.0); Neut # (Auto) 4.2 th/mm3 (1.8-7.7); Neut % (Auto) 61.2 % (16.0-70.0); Platelet Count 281 th/mm3 (150-450); Red Blood Count 2.82 mil/mm3 (4.50-5.90); Red Cell Distribution Width 19.1 % (11.6-17.2); White Blood Count 6.8 th/mm3 (4.0-11.0)
[2018-01-27] MEDS: Gabapentin Liq 250 MG/5 ML UDC G-TUBE SCH (21:39)
[2018-01-27] MEDS: Mirtazapine 15 MG Tablet G-TUBE SCH (21:41)
[2018-01-27] MEDS: traZODone 100 MG Tablet G-TUBE SCH (21:41)
[2018-01-27] MEDS: lamoTRIgine 100 MG Tablet G-TUBE SCH (21:43)
--- NOTE | 2018-01-27 21:59 | P.PNNP ---
Subjective Interval history: Patient seen in the afternoon, alert, no SOB, no vomiting. Physical Exam Vital signs: Vital Signs 01/26/18 23:52 01/27/18 03:46 01/27/18 07:30 Temperature 98.6 F 98.4 F 98.6 F Pulse Rate 106 H 79 88 Respiratory Rate 16 16 18 Blood Pressure 85/51 L 76/49 L 106/65 Pulse Oximetry 97 82 L 95 01/27/18 08:00 01/27/18 08:30 01/27/18 11:08 Temperature 98.0 F 97.6 F Pulse Rate 75 86 Respiratory Rate 16 18 20 Blood Pressure 83/52 L 91/59 L 92/50 L Pulse Oximetry 99 95 96 01/27/18 11:25 01/27/18 14:10 01/27/18 14:25 Temperature 97.6 F 98.4 F Pulse Rate 84 90 84 Respiratory Rate 18 18 20 Blood Pressure 93/51 L 98/60 L 97/63 L Pulse Oximetry 95 97 01/27/18 14:55 01/27/18 15:30 01/27/18 15:35 Temperature 98.0 F 98.0 F Pulse Rate 84 82 Respiratory Rate 20 16 16 Blood Pressure 92/62 L 88/48 L 85/46 L Pulse Oximetry 97 98 98 01/27/18 16:00 01/27/18 16:35 01/27/18 20:00 Temperature 98.3 F Pulse Rate 81 Respiratory Rate 20 20 18 Blood Pressure 90/58 L 92/56 L 92/58 L Pulse Oximetry 96 96 92 L Intake & Output 01/27/18 01/27/18 01/28/18 06:59 18:59 06:59 Intake Total 250 / 250 250 / 250 285 / 285 Output Total 300 / 300 Balance -50 / -50 250 / 250 285 / 285 Weight 72.6 kg Intake: IV 250 / 250 250 / 250 NS Inj 500 ML @ 30 mls/hr IV. 250 / 250 CONT .[id number] ONE Rx#:[id number] NS Inj 250 ML @ 500 mls/hr IV. 250 / 250 SIG BOLUS FLAQUITA Rx#:[id number] Tube Feeding 85 / 85 Tube Irrigant 100 / 100 Water Bolus Amount 100 / 100 Output: Emesis 300 / 300 Other: Date of Last Bowel Movement 11/28/18 11/30/18 Narrative: GENERAL: NAD, A&Ox1 HEAD: Normocephalic. NECK: Supple, trachea midline. No lymphadenopathy. EYES: No scleral icterus. No injection or drainage. CARDIOVASCULAR: Regular rate and rhythm without murmurs, gallops, or rubs. RESPIRATORY: Breath sounds equal bilaterally. No accessory muscle use. GASTROINTESTINAL: Abdomen soft, non-tender, nondistended.With PEG tube. MUSCULOSKELETAL: No cyanosis, or edema. SKIN: Warm and dry. NEURO: No focal neurological deficits. Assessment and Plan - Assessment (1) End stage renal disease on dialysis Code(s): N18.6 - End stage renal disease; Z99.2 - Dependence on renal dialysis Status: Acute Plan: End stage renal disease on hemodialysis on Tuesday, , and Tuesday. Left leg with AVF positive thrill and bruit Avoid gadolinium Post colonoscopy . Epogen with dialysis Continue midodrine for blood pressure support. Hemodialysis done yesterday. GT chaged, now no vomiting. (2) Diabetes Code(s): E11.9 - Type 2 diabetes mellitus without complications Status: Chronic Qualifiers: Diabetes mellitus type: type 2 Chronic kidney disease stage: on chronic dialysis Plan: Maintain blood sugar between 140 mg/dl to 180 mg/dl while hospitalized. (3) Nausea and vomiting Code(s): R11.2 - Nausea with vomiting, unspecified Status: Acute Qualifiers: Vomiting type: unspecified Vomiting Intractability: non-intractable Qualified Code(s): R11.2 - Nausea with vomiting, unspecified Plan: GI consulted for further recommendations. CT with no acute finding. Colonoscopy today (4) Anemia Code(s): D64.9 - Anemia, unspecified Status: Acute Plan: HGB at 9.7 Epogen with dialysis GI consulted for further evaluation for GI losses. Colonoscopy today
[2018-01-28] MEDS: Sod Chloride 0.9% Inj 1,000 ML IV.CONT PRN (00:53)
[2018-01-28] MEDS: Insulin NovoLOG Aspart Correctional Sugar Inj SQ SCH ×4 (00:54→19:19)
[2018-01-28] MEDS: KCL 20 mEq/D5W/NaCl 0.9% Inj 1,000 ML IV.CONT SCH (03:07)
[2018-01-28] MEDS: Metoclopramide Liq 10 MG/10 ML UDC G-TUBE SCH ×3 (09:00→18:37)
[2018-01-28] MEDS: Escitalopram 10 MG Tablet G-TUBE SCH (09:00)
[2018-01-28] MEDS ORDERED: Sodium Chlor 0.9% Inj 250 ML IV.SIG SCH (09:02)
--- NOTE | 2018-01-28 12:20 | P.PNIM ---
Subjective Interval history: Pt seen and examined. Denies any complaints except that he wants to eat. Noted dysphagia from last hospitalization requiring PEG tube placement. Patient's TFs running at 20 ml/hr. Goal is 55 ml/hr. Had an episode of "staring blankly" this morning per RN after free water flushed. Shortly returned to baseline following episode with no change to mental status. Denies CP, SOB, N/V, or diarrhea. Physical Exam Vital signs: Vital Signs 01/27/18 14:10 01/27/18 14:25 01/27/18 14:55 Temperature 98.4 F Pulse Rate 90 84 84 Respiratory Rate 18 20 20 Blood Pressure 98/60 L 97/63 L 92/62 L Pulse Oximetry 97 97 01/27/18 15:30 01/27/18 15:35 01/27/18 16:00 Temperature 98.0 F 98.0 F Pulse Rate 82 Respiratory Rate 16 16 20 Blood Pressure 88/48 L 85/46 L 90/58 L Pulse Oximetry 98 98 96 01/27/18 16:35 01/27/18 20:00 01/28/18 00:00 Temperature 98.3 F Pulse Rate 81 75 Respiratory Rate 20 18 18 Blood Pressure 92/56 L 92/58 L 83/56 L Pulse Oximetry 96 92 L 95 01/28/18 04:00 01/28/18 08:00 Temperature 98.1 F Pulse Rate 97 H 83 Respiratory Rate 18 Blood Pressure 137/73 74/39 L Pulse Oximetry 95 93 L Intake & Output 01/27/18 01/28/18 01/28/18 18:59 06:59 18:59 Intake Total 250 / 250 485 / 485 Balance 250 / 250 485 / 485 Intake: IV 250 / 250 200 / 200 NS Inj 1,000 ML @ As Directed 200 / 200 IV.CONT .Q0M PRN Rx#:[id number] NS Inj 500 ML @ 30 mls/hr IV. 250 / 250 CONT .[id number] ONE Rx#:[id number] Tube Feeding 85 / 85 Tube Irrigant 100 / 100 Water Bolus Amount 100 / 100 Other: Date of Last Bowel Movement 01/27/18 01/27/18 Narrative: GENERAL: male resting in bed in NAD. SKIN: Warm and dry. HEENT: AT/NC. Pupils equal and round. MMM. HEART: RRR no m/r/g. LUNGS: Anterior lung sounds CTAB without wheezes or crackles. ABDOMEN: GJ tube in place. EXTREMITIES: No LE edema. L hemiplegia and contractures. NEURO: Awake and alert. Oriented x 1 (baseline). Results - Labs CBC & Chem 7: 01/27/18 20:19 01/27/18 05:55 Laboratory Results - last 24 hr 01/27/18 01/27/18 01/28/18 16:52 20:19 00:34 WBC 6.8 RBC 2.82 L Hgb 8.2 L Hct 25.8 L MCV 91.2 MCH 28.9 MCHC 31.7 L RDW 19.1 H Plt Count 281 MPV 8.3 Neut % (Auto) 61.2 Lymph % (Auto) 26.1 [place] % (Auto) 10.1 H Eos % (Auto) 1.9 Baso % (Auto) 0.7 Neut # (Auto) 4.2 Lymph # (Auto) 1.8 [place] # (Auto) 0.7 Eos # (Auto) 0.1 Baso # (Auto) 0.1 WBC Differential . Differential Comment Auto diff final POC Glucose 166 H 249 H 01/28/18 01/28/18 06:18 10:21 WBC RBC Hgb Hct MCV MCH MCHC RDW Plt Count MPV Neut % (Auto) Lymph % (Auto) [place] % (Auto) Eos % (Auto) Baso % (Auto) Neut # (Auto) Lymph # (Auto) [place] # (Auto) Eos # (Auto) Baso # (Auto) WBC Differential Differential Comment POC Glucose 212 H 213 H - Imaging Impressions Gastrostomy Tube Change 01/27/18 00:00 CONCLUSION: 1. Uncomplicated conversion of a gastrostomy tube to a gastrojejunostomy tube. Assessment and Plan - Assessment (1) End stage renal disease on dialysis Code(s): N18.6 - End stage renal disease; Z99.2 - Dependence on renal dialysis Status: Acute (2) Diabetes Code(s): E11.9 - Type 2 diabetes mellitus without complications Status: Chronic (3) Nausea and vomiting Code(s): R11.2 - Nausea with vomiting, unspecified Status: Acute (4) Anemia Code(s): D64.9 - Anemia, unspecified Status: Acute - Plan 62-year-old AA male with history of ESRD on HD, IDDM, HTN, h/o CVA with left- sided paralysis, and dysphagia/esophagitis/aspiration s/p PEG tube placement admitted secondary to coffee-ground emesis with recent history of C. difficile colitis, hypotension, and hypoglycemia. 1. Coffee-ground emesis - GI following - Continue PPI - S/P EGD and colonoscopy, awaiting reports - Antiemetics PRN - H&H trending down, transfuse if <7 2. Hypotension - BP 74/39 this AM, bolused 250 cc - Continue home midodrine - Avoid antihypertensives - Continue to monitor 3. Hypoglycemia - Resolved - Stop D5 in fluids 4. N/V and abdominal pain - Patient with recently diagnosed C. diff - Continue PO vancomycin - GI following 5. End-stage renal disease with secondary hyperparathyroidism - Nephrology following - Continue dialysis - Avoid nephrotoxins and renally dose meds - Continue to monitor renal function 6. Anemia - Hgb trending down, 9.3 yesterday and 8.2 today - GI following - S/P colonoscopy yesterday, awaiting report - Transfuse if Hgb <7.0 or patient symptomatic 7. DM - SSI with Accu-Checks per protocol 8. 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 Dysphagia - GT tube replace by IR this hospitalization - Consult color depositing machine tender and speech therapy to see if patient can tolerate diet - Change TFs to Nepro with goal 55 ml/hr, increase 10 ml every 4 hours DVT prophylaxis: heparin (2) Diabetes Qualifiers: Diabetes mellitus type: type 2 Chronic kidney disease stage: on chronic dialysis (3) Nausea and vomiting Qualifiers: Vomiting type: unspecified Vomiting Intractability: non-intractable Qualified Code(s): R11.2 - Nausea with vomiting, unspecified
--- NOTE | 2018-01-28 12:34 | P.PNNP ---
Subjective Interval history: Patient is alert, no SOB, no abd. pain. Physical Exam Vital signs: Vital Signs 01/27/18 14:10 01/27/18 14:25 01/27/18 14:55 Temperature 98.4 F Pulse Rate 90 84 84 Respiratory Rate 18 20 20 Blood Pressure 98/60 L 97/63 L 92/62 L Pulse Oximetry 97 97 01/27/18 15:30 01/27/18 15:35 01/27/18 16:00 Temperature 98.0 F 98.0 F Pulse Rate 82 Respiratory Rate 16 16 20 Blood Pressure 88/48 L 85/46 L 90/58 L Pulse Oximetry 98 98 96 01/27/18 16:35 01/27/18 20:00 01/28/18 00:00 Temperature 98.3 F Pulse Rate 81 75 Respiratory Rate 20 18 18 Blood Pressure 92/56 L 92/58 L 83/56 L Pulse Oximetry 96 92 L 95 01/28/18 04:00 01/28/18 08:00 01/28/18 12:00 Temperature 98.1 F Pulse Rate 97 H 83 75 Respiratory Rate 18 16 Blood Pressure 137/73 74/39 L 92/55 L Pulse Oximetry 95 93 L 96 Intake & Output 01/27/18 01/28/18 01/28/18 18:59 06:59 18:59 Intake Total 250 / 250 485 / 485 Balance 250 / 250 485 / 485 Intake: IV 250 / 250 200 / 200 NS Inj 1,000 ML @ As Directed 200 / 200 IV.CONT .Q0M PRN Rx#:[id number] NS Inj 500 ML @ 30 mls/hr IV. 250 / 250 CONT .[id number] ONE Rx#:[id number] Tube Feeding 85 / 85 Tube Irrigant 100 / 100 Water Bolus Amount 100 / 100 Other: Date of Last Bowel Movement 01/27/18 01/27/18 Narrative: GENERAL: male resting in bed in NAD. SKIN: Warm and dry. HEENT: AT/NC. Pupils equal and round. MMM. HEART: RRR no m/r/g. LUNGS: Anterior lung sounds CTAB without wheezes or crackles. ABDOMEN: GJ tube in place. EXTREMITIES: No LE edema. L hemiplegia and contractures. NEURO: Awake and alert. Oriented x 1 (baseline). Assessment and Plan - Assessment (1) End stage renal disease on dialysis Code(s): N18.6 - End stage renal disease; Z99.2 - Dependence on renal dialysis Status: Acute Plan: End stage renal disease on hemodialysis on Tuesday, , and Tuesday. Left leg with AVF positive thrill and bruit Avoid gadolinium Post colonoscopy . Epogen with dialysis Continue midodrine for blood pressure support. Hemodialysis will be again today. GT chaged, now no vomiting. (2) Diabetes Code(s): E11.9 - Type 2 diabetes mellitus without complications Status: Chronic Qualifiers: Diabetes mellitus type: type 2 Chronic kidney disease stage: on chronic dialysis Plan: Maintain blood sugar between 140 mg/dl to 180 mg/dl while hospitalized. (3) Nausea and vomiting Code(s): R11.2 - Nausea with vomiting, unspecified Status: Acute Qualifiers: Vomiting type: unspecified Vomiting Intractability: non-intractable Qualified Code(s): R11.2 - Nausea with vomiting, unspecified Plan: GI consulted for further recommendations. CT with no acute finding. Colonoscopy today (4) Anemia Code(s): D64.9 - Anemia, unspecified Status: Acute Plan: HGB at 9.7 Epogen with dialysis
[2018-01-28] MEDS: traZODone 100 MG Tablet G-TUBE SCH (22:08)
[2018-01-28] MEDS: lamoTRIgine 100 MG Tablet G-TUBE SCH (22:11)
[2018-01-28] MEDS: Mirtazapine 15 MG Tablet G-TUBE SCH (22:12)
[2018-01-28] MEDS: Gabapentin Liq 250 MG/5 ML UDC G-TUBE SCH (22:16)
[2018-01-28] MEDS: Heparin - SQ 10,000 UNITS/ML Vial SQ SCH (22:45)
[2018-01-29] MEDS: Insulin NovoLOG Aspart Correctional Sugar Inj SQ SCH ×5 (00:44→23:31)
[2018-01-29 01:45] VITALS: RESP 16
[2018-01-29] MEDS ORDERED: Sodium Chlor 0.9% Inj 250 ML IV.SIG SCH (02:00)
[2018-01-29] MEDS: Sod Chloride 0.9% Inj 1,000 ML IV.CONT PRN (02:05)
[2018-01-29] MEDS ORDERED: Albumin Human 25% Inj 100 ML IV.SIG ONE (04:11)
[2018-01-29 07:23] LABS: Hematocrit 23.6 % (39.0-51.0); Hemoglobin 7.8 gm/dL (13.0-17.0); Mean Corpuscular HGB Conc 32.9 % (32.0-36.0); Mean Corpuscular Hemoglobin 29.3 pg (27.0-34.0); Mean Platelet Volume 8.1 fL (7.0-11.0); Platelet Count 236 th/mm3 (150-450); Red Blood Count 2.65 mil/mm3 (4.50-5.90); Red Cell Distribution Width 19.2 % (11.6-17.2); White Blood Count 6.6 th/mm3 (4.0-11.0)
[2018-01-29 07:49] LABS: Calcium 8.3 mg/dL (8.5-10.1); Potassium 3.4 meq/L (3.5-5.1)
[2018-01-29] MEDS ORDERED: Potassium Chlor 20 mEq Premix 20 MEQ/100 ML PIGGYBACK IV.SIG ONE (08:41)
--- NOTE | 2018-01-29 10:03 | P.DIET ---
Nutritional Evaluation Type of nutrition evaluation: initial Nutrition consult regarding: Tube Feeding Nutrition screening: [facility] [place] 01/28 [facility] [place] Objective - Diagnosis GI Bleed - Objective Body Mass Index: 25.1 % IBW: 108 (IBW: 148lbs) Body Weight Used for Calculations: Actual (72.6kg) Energy Needs - Lower Range (kCal/kg): 30 Energy Needs - Upper Range (kCal/kg): 35 Lower Limit kCal/kg (kCals): 2,178 Upper Limit kCal/kg (kCals): 2,541 Lower Limit Protein Factor (Grams per Kg): 1.2 Upper Limit Protein Factor (Grams per Kg): 1.4 Lower Protein Needs (Protein): 87 Upper Protein Needs (Protein): 102 Dietitian Reviewed in Medical Record: Current diet, Curent medications, Intake & Output, Labs, Medical history, Tube feeding Diet Order: TF only Objective Comments: PMH: chronic kidney disease on dialysis, insulin-dependant diabetes, hypertension, CVA with left sided paralysis, and esophagitis s/p peg tube placement Meds include: Reglan, Risperdal Labs include: K+ 3.4, Glu 187, Cr 4.35 HD 2L removed Assessment Assessment: Pt at nutritional risk r/t dx and need for a TF for nutritional support. Pt admitted with GI bleed, noted PEG replaced with GJ tube. Noted that patient would like to eat, swallow eval by speech is pending. Pt's nutritional needs as assessed above. Current TF of Nepro with goal rate of 55ml/hr will provide 2376kcals, 107gms protein and 960mls free water. This is adequate to meet pt's nutritional needs. Will monitor TF tolerance, clinical course. Recommendations: TF Nepro with goal rate 55ml/hr Dietitian to Monitor: Lab values, Intake & Output, Tube feeding tolerance, Weight change, Swallow recommendations
[2018-01-29] MEDS: Metoclopramide Liq 10 MG/10 ML UDC G-TUBE SCH ×3 (10:26→18:01)
[2018-01-29] MEDS: Heparin - SQ 10,000 UNITS/ML Vial SQ SCH ×2 (10:28→23:16)
[2018-01-29] MEDS: Escitalopram 10 MG Tablet G-TUBE SCH (10:32)
--- NOTE | 2018-01-29 10:37 | P.PNIM ---
Subjective Interval history: Pt seen and examined. No complaints. Denies CP, SOB. Wants to eat and go back to facility. Tolerating TFs at goal. Physical Exam Vital signs: Vital Signs 01/28/18 12:00 01/28/18 20:00 01/29/18 00:00 Temperature 97.9 F 98.3 F Pulse Rate 75 85 78 Respiratory Rate 16 17 16 Blood Pressure 92/55 L 118/57 L 77/45 L Pulse Oximetry 96 92 L 92 L 01/29/18 03:16 01/29/18 07:05 01/29/18 08:00 Temperature 97.9 F 98.3 F Pulse Rate 78 77 79 Respiratory Rate 16 16 Blood Pressure 85/41 L 97/61 L Pulse Oximetry 92 L 95 Intake & Output 01/28/18 01/29/18 01/29/18 18:59 06:59 18:59 Intake Total 750 / 750 350 / 350 Output Total 1999 Balance -1250 / -1250 350 / 350 Intake: IV 750 / 750 350 / 350 D5W/NS + KCL 20 mEq Inj 1,000 500 / 500 ML @ 50 mls/hr IV.CONT .Q20H [facility] Rx#:[id number] Flexbumin 25% Inj 100 ML @ 50 100 / 100 mls/hr IV.SIG ONCE ONE Rx#: [id number] NS Inj 250 ML @ 500 mls/hr IV. 250 / 250 250 / 250 SIG BOLUS F[facility]QUITA Rx#:[id number] Output: Hemodialysis Amount 1999 Narrative: GENERAL: male resting in bed in [facility]. SKIN: Warm and dry. HEENT: AT/NC. Pupils equal and round. MMM. HEART: RRR no m/r/g. LUNGS: Anterior lung sounds CTAB without wheezes or crackles. ABDOMEN: GJ tube in place. EXTREMITIES: No LE edema. L hemiplegia and contractures. NEURO: Awake and alert. Oriented x 1 (baseline). Results - Labs CBC & Chem 7: 01/29/18 06:29 01/29/18 06:29 Laboratory Results - last 24 hr 01/28/18 01/28/18 01/29/18 10:21 16:08 00:28 WBC RBC Hgb Hct MCV MCH MCHC RDW Plt Count MPV Sodium Potassium Chloride Carbon Dioxide Anion Gap BUN Creatinine Estimated GFR POC Glucose 213 H 132 H 273 H Random Glucose Calcium 01/29/18 01/29/18 01/29/18 05:59 06:29 06:29 WBC 6.6 RBC 2.65 L Hgb 7.8 L Hct 23.6 L MCV 89.0 MCH 29.3 MCHC 32.9 RDW 19.2 H Plt Count 236 MPV 8.1 Sodium 140 Potassium 3.4 L Chloride 100 Carbon Dioxide 34.0 H Anion Gap 6 BUN 8 Creatinine 4.35 H Estimated GFR 17 L POC Glucose 181 H Random Glucose 187 H Calcium 8.3 L 01/29/18 09:20 WBC RBC Hgb Hct MCV MCH MCHC RDW Plt Count MPV Sodium Potassium Chloride Carbon Dioxide Anion Gap BUN Creatinine Estimated GFR POC Glucose 175 H Random Glucose Calcium Assessment and Plan - Assessment (1) End stage renal disease on dialysis Code(s): N18.6 - End stage renal disease; Z99.2 - Dependence on renal dialysis Status: Acute (2) Diabetes Code(s): E11.9 - Type 2 diabetes mellitus without complications Status: Chronic (3) Nausea and vomiting Code(s): R11.2 - Nausea with vomiting, unspecified Status: Acute (4) Anemia Code(s): D64.9 - Anemia, unspecified Status: Acute - Plan 62-year-old AA male with history of ESRD on HD, IDDM, HTN, h/o CVA with left- sided paralysis, and dysphagia/esophagitis/aspiration s/p PEG tube placement admitted secondary to coffee-ground emesis with recent history of C. difficile colitis, hypotension, and hypoglycemia. 1. Coffee-ground emesis - resolved - GI following - Continue PPI - S/P EGD and colonoscopy, awaiting reports - Antiemetics PRN - H&H trending down, transfuse if <7 2. Hypotension - Asymptomatic - Increase midodrine to 15 mg TID - Continue to monitor 3. Hypoglycemia - Resolved 4. N/V and abdominal pain - resolved - Patient with recently diagnosed C. diff - Continue PO vancomycin - GI following 5. End-stage renal disease with secondary hyperparathyroidism - Nephrology following - Continue dialysis - Avoid nephrotoxins and renally dose meds - Continue to monitor renal function 6. Anemia - Hgb trending down, 7.8 today - GI following - S/P colonoscopy 01/27, awaiting report - Transfuse if Hgb <7.0 or patient symptomatic - No signs of active bleeding 7. DM - SSI with Accu-Checks per protocol 8. 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 Dysphagia - GT tube replace by IR this hospitalization - Consult speech therapy to see if patient can tolerate diet - Change TFs to Nepro with goal 55 ml/hr, increase 10 ml every 4 hours - Dog Or Horse Racing Official following DVT prophylaxis: heparin Discharge Planning: Pending GI and ST recommendations, possibly today (2) Diabetes Qualifiers: Diabetes mellitus type: type 2 Chronic kidney disease stage: on chronic dialysis (3) Nausea and vomiting Qualifiers: Vomiting type: unspecified Vomiting Intractability: non-intractable Qualified Code(s): R11.2 - Nausea with vomiting, unspecified
--- NOTE | 2018-01-29 11:52 | GIPROC ---
[facility] [address] [facility]. [facility], [address] COLONOSCOPY PROCEDURE REPORT EXAM DATE: 01/27/2018 PATIENT NAME: Mirza Sharpe MR #: [id number] BIRTHDATE: 1955 ENDOSCOPIST: Soot Latham MD ORDER #: [id number] MEAT HANGER: Miranda Sharpe and Liane Whipple STATUS: inpatient INDICATIONS: The patient is a 62 yr old male here for a colonoscopy due to anemia, non-specific PROCEDURE PERFORMED: Colonoscopy, diagnostic MEDICATIONS: Per Anesthesia and None. PREP QUALITY: fair PREP TYPE:GoLytely ESTIMATED BLOOD LOSS: None CONSENT: The patient understands the risks and benefits of the procedure and understands that these risks include, but are not limited to: sedation, allergic reaction, infection, perforation and/or bleeding. Alternative means of evaluation and treatment include, among others: physical exam, x-rays, and/or surgical intervention. The patient elects to proceed with this endoscopic procedure. medical equipment was checked for proper function. Hand hygiene and appropriate measures for infection prevention was taken. After the risks, benefits and alternatives of the procedure were thoroughly explained, Informed consent was verified, confirmed and timeout was successfully executed by the treatment team. A digital exam revealed no abnormalities of the rectum The Pentax [id number] endoscope was introduced through the anus and advanced to the cecum, which was identified by both the appendix and ileocecal valve. The instrument was then slowly withdrawn as the colon was fully examined. COLON FINDINGS: The colonic mucosa appeared normal. Retroflexed views revealed no abnormalities The scope was then completely withdrawn from the patient and the procedure terminated. PROCEDURE WITHDRAWAL TIME:8minutes ADVERSE EVENTS: There were no complications. IMPRESSIONS: 1. The colonic mucosa appeared normal 2. Retroflexed views revealed no abnormalities RECOMMENDATIONS: Continue surveillance RECALL: After 5 years Soto Latham MD eSigned: Soto Latham MD 01/29/2018 11:51 AM cc: PATIENT NAME: Mirza Sharpe MR#: [id number]
--- NOTE | 2018-01-29 12:54 | P.PNNP ---
Subjective Interval history: Patient is alert, has mild abd. pain around GT, no SOB, no nausea. Physical Exam Vital signs: Vital Signs 01/28/18 20:00 01/29/18 00:00 01/29/18 03:16 Temperature 97.9 F 98.3 F 97.9 F Pulse Rate 85 78 78 Respiratory Rate 17 16 16 Blood Pressure 118/57 L 77/45 L 85/41 L Pulse Oximetry 92 L 92 L 92 L 01/29/18 07:05 01/29/18 08:00 01/29/18 12:00 Temperature 98.3 F 98.4 F Pulse Rate 77 79 82 Respiratory Rate 16 16 Blood Pressure 97/61 L 114/67 Pulse Oximetry 95 95 Intake & Output 01/28/18 01/29/18 01/29/18 18:59 06:59 18:59 Intake Total 750 / 750 350 / 350 Output Total 1999 Balance -1250 / -1250 350 / 350 Intake: IV 750 / 750 350 / 350 D5W/NS + KCL 20 mEq Inj 1,000 500 / 500 ML @ 50 mls/hr IV.CONT .Q20H [facility] Rx#:[id number] Flexbumin 25% Inj 100 ML @ 50 100 / 100 mls/hr IV.SIG ONCE ONE Rx#: [id number] NS Inj 250 ML @ 500 mls/hr IV. 250 / 250 250 / 250 SIG BOLUS [facility]ITA Rx#:[id number] Output: Hemodialysis Amount 1999 Narrative: GENERAL: male resting in bed in NAD. SKIN: Warm and dry. HEENT: AT/NC. Pupils equal and round. MMM. HEART: RRR no m/r/g. LUNGS: Anterior lung sounds CTAB without wheezes or crackles. ABDOMEN: GJ tube in place. EXTREMITIES: No LE edema. L hemiplegia and contractures. NEURO: Awake and alert. Oriented x 1 (baseline). Assessment and Plan - Assessment (1) End stage renal disease on dialysis Code(s): N18.6 - End stage renal disease; Z99.2 - Dependence on renal dialysis Status: Acute Plan: End stage renal disease on hemodialysis on Tuesday, , and Tuesday. Left leg with AVF positive thrill and bruit Avoid gadolinium Post colonoscopy . Epogen with dialysis Continue midodrine for blood pressure support. Hemodialysis done yesterday. GT chaged, now no vomiting. Hgb. dropped, will increase Epogen with HD. Transfuse as needed. K is 3.4, getting 1 dose Kcl. (2) Diabetes Code(s): E11.9 - Type 2 diabetes mellitus without complications Status: Chronic Qualifiers: Diabetes mellitus type: type 2 Chronic kidney disease stage: on chronic dialysis Plan: Maintain blood sugar between 140 mg/dl to 180 mg/dl while hospitalized. (3) Nausea and vomiting Code(s): R11.2 - Nausea with vomiting, unspecified Status: Acute Qualifiers: Vomiting type: unspecified Vomiting Intractability: non-intractable Qualified Code(s): R11.2 - Nausea with vomiting, unspecified Plan: GI consulted for further recommendations. CT with no acute finding. Colonoscopy today (4) Anemia Code(s): D64.9 - Anemia, unspecified Status: Acute Plan: HGB at 9.7 Epogen with dialysis
[2018-01-29] MEDS: traZODone 100 MG Tablet G-TUBE SCH (23:15)
[2018-01-29] MEDS: lamoTRIgine 100 MG Tablet G-TUBE SCH (23:17)
[2018-01-29] MEDS: Mirtazapine 15 MG Tablet G-TUBE SCH (23:18)
[2018-01-29] MEDS: Gabapentin Liq 250 MG/5 ML UDC G-TUBE SCH (23:22)
[2018-01-30 05:47] LABS: Hematocrit 25.9 % (39.0-51.0); Hemoglobin 8.3 gm/dL (13.0-17.0); Mean Corpuscular Hemoglobin 29.1 pg (27.0-34.0); Mean Corpuscular Volume 90.9 fL (80.0-100.0); Mean Platelet Volume 8.2 fL (7.0-11.0); Platelet Count 282 th/mm3 (150-450); Red Blood Count 2.85 mil/mm3 (4.50-5.90); Red Cell Distribution Width 19.2 % (11.6-17.2); White Blood Count 8.5 th/mm3 (4.0-11.0)
[2018-01-30] MEDS: Insulin NovoLOG Aspart Correctional Sugar Inj SQ SCH ×2 (06:18→14:12)
[2018-01-30 08:26] VITALS: TEMP 98.3
--- NOTE | 2018-01-30 08:37 | P.PNIM ---
Subjective Interval history: Pt reports he had a bad night. Did not rest well. Had one episode of dark emesis. C/o abdominal pain at his GJ tube site. Endorses some epigastric burning discomfort. Denies cough or shortness of breath. At this point the patient states he doesn't feel ready for discharge because of how poorly he is feeling this morning but will reevaluate later this morning. Physical Exam Vital signs: Vital Signs 01/29/18 12:00 01/29/18 16:00 01/29/18 20:00 Temperature 98.4 F 99.4 F 98.9 F Pulse Rate 82 80 77 Respiratory Rate 16 16 16 Blood Pressure 114/67 118/63 99/57 L Pulse Oximetry 95 96 95 01/30/18 00:00 01/30/18 08:00 Temperature 99 F 98.3 F Pulse Rate 80 73 Respiratory Rate 16 16 Blood Pressure 105/67 102/57 L Pulse Oximetry 96 95 Intake & Output 01/29/18 01/30/18 01/30/18 18:59 06:59 18:59 Intake Total 450 / 450 Balance 450 / 450 Intake: IV 450 / 450 Flexbumin 25% Inj 100 ML @ 50 100 / 100 mls/hr IV.SIG ONCE ONE Rx#: [id number] KCl 20 mEq Premix Inj 20 meq In 100 / 100 100 ml @ 50 mls/hr IV.SIG ONCE ONE Rx#:[id number] NS Inj 250 ML @ 500 mls/hr IV. 250 / 250 SIG BOLUS FLAQUITA Rx#:[id number] Narrative: GENERAL: male resting in bed in [facility]. SKIN: Warm and dry. HEENT: AT/NC. Pupils equal and round. MMM. HEART: RRR no m/r/g. LUNGS: Anterior lung sounds CTAB without wheezes or crackles. ABDOMEN: GJ tube in place. EXTREMITIES: No LE edema. L hemiplegia and contractures. NEURO: Awake and alert. Results - Labs CBC & Chem 7: 01/30/18 04:15 01/29/18 06:29 Laboratory Results - last 24 hr 01/29/18 01/29/18 01/29/18 09:20 15:36 22:56 WBC RBC Hgb Hct MCV MCH MCHC RDW Plt Count MPV POC Glucose 175 H 163 H 201 H 01/30/18 01/30/18 04:15 05:45 WBC 8.5 RBC 2.85 L Hgb 8.3 L Hct 25.9 L MCV 90.9 MCH 29.1 MCHC 32.0 RDW 19.2 H Plt Count 282 MPV 8.2 POC Glucose 236 H Assessment and Plan - Assessment (1) End stage renal disease on dialysis Code(s): N18.6 - End stage renal disease; Z99.2 - Dependence on renal dialysis Status: Acute (2) Diabetes Code(s): E11.9 - Type 2 diabetes mellitus without complications Status: Chronic (3) Nausea and vomiting Code(s): R11.2 - Nausea with vomiting, unspecified Status: Acute (4) Anemia Code(s): D64.9 - Anemia, unspecified Status: Acute - Plan 62-year-old AA male with history of ESRD on HD, IDDM, HTN, h/o CVA with left- sided paralysis, and dysphagia/esophagitis/aspiration s/p PEG tube placement admitted secondary to coffee-ground emesis with recent history of C. difficile colitis, hypotension, and hypoglycemia. 1. Coffee-ground emesis - Pt reported one episode of dark emesis yesterday evening - GI following, s/p EGD 01/25 revealing esophagitis and normal gastric mucosa. Colonoscopy 01/27 showed normal colonic mucosa - Continue Protonix IV BID - S/P G-tube change to GJ tube by IR - Antiemetics PRN - H&H improved today 2. Hypotension - Asymptomatic - Increase midodrine to 15 mg TID - Continue to monitor 3. Hypoglycemia - Resolved 4. C. diff colitis - [facility] vanco 01/19 - Continue PO vancomycin 5. End-stage renal disease with secondary hyperparathyroidism - Nephrology following - Continue dialysis - Avoid nephrotoxins and renally dose meds - Continue to monitor renal function 6. Anemia - Hgb imrpoved to 8.2 today - Nephrology increasing Epogen with HD - EGD and colonoscopy findings as above - Transfuse if Hgb <7.0 or patient symptomatic - No signs of active bleeding though patient endorses an episode of dark emesis yesterday evening 7. DM - SSI with Accu-Checks per protocol 8. 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 Dysphagia - G tube replace by IR this hospitalization - Consult speech therapy to see if patient can tolerate diet - Continue Nepro with goal 55 ml/hr (currently at goal) - Information Systems Specialist following DVT prophylaxis: heparin Discharge Planning: Possibly today, will reevaluate patient later this morning (2) Diabetes Qualifiers: Diabetes mellitus type: type 2 Chronic kidney disease stage: on chronic dialysis (3) Nausea and vomiting Qualifiers: Vomiting type: unspecified Vomiting Intractability: non-intractable Qualified Code(s): R11.2 - Nausea with vomiting, unspecified
[2018-01-30] MEDS ORDERED: Pantoprazole Inj 40 MG Vial IV.PUSH SCH ×2 (09:00)
--- NOTE | 2018-01-30 09:12 | P.PNNP ---
Subjective Interval history: Reports that he did not have a good night and had nausea and emesis last night. <Khalida Laura - Last Filed: 01/30/18 09:09> Physical Exam Vital signs: Vital Signs 01/29/18 12:00 01/29/18 16:00 01/29/18 20:00 Temperature 98.4 F 99.4 F 98.9 F Pulse Rate 82 80 77 Respiratory Rate 16 16 16 Blood Pressure 114/67 118/63 99/57 L Pulse Oximetry 95 96 95 01/30/18 00:00 01/30/18 08:00 Temperature 99 F 98.3 F Pulse Rate 80 73 Respiratory Rate 16 16 Blood Pressure 105/67 102/57 L Pulse Oximetry 96 95 Intake & Output 01/29/18 01/30/18 01/30/18 18:59 06:59 18:59 Intake Total 450 / 450 Balance 450 / 450 Intake: IV 450 / 450 Flexbumin 25% Inj 100 ML @ 50 100 / 100 mls/hr IV.SIG ONCE ONE Rx#: [id number] KCl 20 mEq Premix Inj 20 meq In 100 / 100 100 ml @ 50 mls/hr IV.SIG ONCE ONE Rx#:[id number] NS Inj 250 ML @ 500 mls/hr IV. 250 / 250 SIG BOLUS FLAQUITA Rx#:[id number] Narrative: GENERAL: Alert and awake. SKIN: Warm and dry. NECK: Supple, trachea midline. No JVD. CARDIOVASCULAR: Regular rate and rhythm without murmurs, gallops, or rubs. Left leg with AVF positive thrill and bruit. RESPIRATORY: Breath sounds equal bilaterally. No accessory muscle use. GASTROINTESTINAL: Abdomen soft, tender to palpation. Peg tube. MUSCULOSKELETAL: No cyanosis, or edema. BACK: Nontender without obvious deformity. No CVA tenderness. <Khalida Laura - Last Filed: 01/30/18 09:09> Assessment and Plan - Assessment (1) End stage renal disease on dialysis Code(s): N18.6 - End stage renal disease; Z99.2 - Dependence on renal dialysis Status: Acute Plan: End stage renal disease on hemodialysis on Tuesday, , and Tuesday. Left leg with AVF positive thrill and bruit Avoid gadolinium Epogen with dialysis Continue midodrine for blood pressure support. Hemodialysis planned for tomorrow (2) Diabetes Code(s): E11.9 - Type 2 diabetes mellitus without complications Status: Chronic Qualifiers: Diabetes mellitus type: type 2 Chronic kidney disease stage: on chronic dialysis Plan: Maintain blood sugar between 140 mg/dl to 180 mg/dl while hospitalized. (3) Nausea and vomiting Code(s): R11.2 - Nausea with vomiting, unspecified Status: Acute Qualifiers: Vomiting type: unspecified Vomiting Intractability: non-intractable Qualified Code(s): R11.2 - Nausea with vomiting, unspecified Plan: GI consulted for further recommendations. CT with no acute finding. Continues to have nausea and vomiting (4) Anemia Code(s): D64.9 - Anemia, unspecified Status: Acute Plan: HGB at 8.3 Epogen with dialysis <Khalida Laura - Last Filed: 01/30/18 09:09> - Assessment (1) End stage renal disease on dialysis Code(s): N18.6 - End stage renal disease; Z99.2 - Dependence on renal dialysis Status: Acute Plan: Patient seen and examined, agree with above. Tolerating GT feeding. HD to continue as schedule. (2) Diabetes Code(s): E11.9 - Type 2 diabetes mellitus without complications Status: Chronic Qualifiers: Diabetes mellitus type: type 2 Chronic kidney disease stage: on chronic dialysis (3) Nausea and vomiting Code(s): R11.2 - Nausea with vomiting, unspecified Status: Acute Qualifiers: Vomiting type: unspecified Vomiting Intractability: non-intractable Qualified Code(s): R11.2 - Nausea with vomiting, unspecified (4) Anemia Code(s): D64.9 - Anemia, unspecified Status: Acute <Lizeth Bell - Last Filed: 01/31/18 20:45>
[2018-01-30] MEDS: Metoclopramide Liq 10 MG/10 ML UDC G-TUBE SCH ×2 (09:20→13:26)
[2018-01-30] MEDS: Heparin - SQ 10,000 UNITS/ML Vial SQ SCH (09:31)
[2018-01-30] MEDS: Escitalopram 10 MG Tablet G-TUBE SCH (09:31)
--- NOTE | 2018-01-30 13:18 | P.DS ---
Date of admission: 01/25/18 07:52 Primary care physician: Sharan Hill MD Attending physician on discharge: Bertha Ruvalcaba Anticipated date of discharge: 01/30/18 Brief History from admission: The patient is a 62 year old male with a past medical history of chronic kidney disease on dialysis, insulin-dependant diabetes, hypertension, CVA with left sided paralysis, and esophagitis s/p peg tube placement who presents to the ED from a SNF after he vomited three times while receiving his tube feeding while lying down. SNF also reports low H&H and positive guaiac dark stools. Pt reports mild dyspnea and productive cough with yellow phlegm for two days. He also reports upper abdominal pain, distention, and diarrhea for three days. He reports the abdominal pain as a 5/10 in severity. He denies any chest pain, palpitations, diaphoresis, fever, or chills. He denies noticing any blood in vomitus or phlegm. He denies a history of C diff. Discussed with the staff at the SNF who stated that the patient tested positive for C. difficile on 2017 and was started on p.o. vancomycin on 01/19/2018. The patient has been having a hard time reaching his goal tube feeds. They added Reglan to try to help with that. Patient update on day of discharge: Pt reports feeling better. Denies any symptoms. Earlier had some epigastric burning pain but now resolved. Denies N/V. DS: Diagnosis - Discharge Diagnosis (1) End stage renal disease on dialysis Status: Acute (2) Diabetes Status: Chronic (3) Nausea and vomiting Status: Acute (4) Anemia Status: Acute DS: Medications - Discharge Medications Prescriptions: midodrine 15 mg PO TID@0700,1200,1700 30 Days tab ranitidine HCl 15 mg FEEDING TUBE BID 30 Days #60 ml tramadol 50 mg FEEDING TUBE Q6H PRN #28 tab PRN Reason: Pain DS: Summary Hospital Course: 62-year-old AA male with history of ESRD on HD, IDDM, HTN, h/o CVA with left- sided paralysis, and dysphagia/esophagitis/aspiration s/p PEG tube placement admitted secondary to coffee-ground emesis with recent history of C. difficile colitis, hypotension, and hypoglycemia. GI was consulted and patient underwent EGD showing esophagitis. Colonoscopy was normal. His G-tube was changed to a GJ tube with IR. His hemoglobin remained stable and he did not need to be transfused. He tolerated tube feeds at goal. He was discharged in stable condition on 01/30. - Time Spent with Patient Total time spent providing and/or coordinating discharge services: Greater than 30 minutes - Quality: VTE Deep Vein Thrombosis/Pulmonary Embolism Present on Admission: No Exam Vital signs: Vital Signs 01/29/18 16:00 01/29/18 20:00 01/30/18 00:00 Temperature 99.4 F 98.9 F 99 F Pulse Rate 80 77 80 Respiratory Rate 16 16 16 Blood Pressure 118/63 99/57 L 105/67 Pulse Oximetry 96 95 96 01/30/18 08:00 Temperature 98.3 F Pulse Rate 73 Respiratory Rate 16 Blood Pressure 102/57 L Pulse Oximetry 95 Intake & Output 01/29/18 01/30/18 01/30/18 18:59 06:59 18:59 Intake Total 450 / 450 Balance 450 / 450 Intake: IV 450 / 450 Flexbumin 25% Inj 100 ML @ 50 100 / 100 mls/hr IV.SIG ONCE ONE Rx#: [id number] KCl 20 mEq Premix Inj 20 meq In 100 / 100 100 ml @ 50 mls/hr IV.SIG ONCE ONE Rx#:[id number] NS Inj 250 ML @ 500 mls/hr IV. 250 / 250 SIG BOLUS FLAQUITA Rx#:[id number] Narrative: GENERAL: male resting in bed in NAD. SKIN: Warm and dry. HEENT: AT/NC. Pupils equal and round. MMM. HEART: RRR no m/r/g. LUNGS: Anterior lung sounds CTAB without wheezes or crackles. ABDOMEN: GJ tube in place. EXTREMITIES: No LE edema. L hemiplegia and contractures. NEURO: Awake and alert. Results Procedures completed during hospitalization: EGD 01/25: esophagitis Colonoscopy: 01/27: normal appearing colonic mucosa, sigmoid polyp biopsied G-tube conversion to GJ tube on 01/27 Completed studies during hospitalization: Pending at discharge 01/25/18 07:52 Surgical [PTH] Routine Pending studies at discharge: Pending at discharge 01/27/18 13:20 Surgical [PTH] Routine Labs on day of discharge: Labs from last 24 hours 01/30/18 01/30/18 01/30/18 10:08 05:45 04:15 WBC 8.5 RBC 2.85 L Hgb 8.3 L Hct 25.9 L MCV 90.9 MCH 29.1 MCHC 32.0 RDW 19.2 H Plt Count 282 MPV 8.2 POC Glucose 123 H 236 H 01/29/18 01/29/18 22:56 15:36 WBC RBC Hgb Hct MCV MCH MCHC RDW Plt Count MPV POC Glucose 201 H 163 H - Impressions ITS Impressions Chest X-Ray 01/24/18 23:44 CONCLUSION: Subsegmental basilar atelectasis or scarring. No significant effusion. No pneumothorax. Abdomen/Pelvis CT 01/25/18 00:00 CONCLUSION: 1. No acute findings. 2. 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 Gastrostomy tube present. Renal cortical atrophy. Gastrostomy Tube Change 01/27/18 00:00 CONCLUSION: 1. Uncomplicated conversion of a gastrostomy tube to a gastrojejunostomy tube. Discharge Plan - Discharge Disposition Patient Disposition: Discharge to SNF - Discharge Condition Condition: Stable - Discharge Order Discharge Orders: Discharge Order (Routine); Ordered 01/30/18 Ordered By: Bertha Ruvalcaba - Discharge Details Anticipated Discharge Date: 01/30/18 Discharge Comment: D/C after patient is seen by speech and can make a diet recommendation - Physicians Team Primary Care Provider: Sharan Hill Attending Provider: Bertha Ruvalcaba Other Providers: Soto Latham MD ; Lizeth Bell MD ; [facility]
[2018-01-30 15:52] VITALS: BP 87/52; PULSE 75; O2SAT 96
== END 2018-01-30 18:20 ==
LOC: NEDA 23:06 → NEPE 23:06 → NEDA 01-25 14:43 → NEPGCP 01-25 18:07 → HCIS 01-27 17:11 → NEPGCP 01-27 17:13
PROVIDERS: ADMIT Family Medicine; ATTEND Family Medicine
PROC: PANENDO (2018-01-25 14:55)
PROC: COLONOS (2018-01-27 10:27)

== ENCOUNTER 2018-04-14 00:39 | Inpatient (IN) ==
[2018-04-14] MEDS ORDERED: Pantoprazole Inj 40 MG Vial IV.PUSH ONE (01:18)
[2018-04-14 02:05] LABS: Baso # (Auto) 0.1 th/mm3 (0.0-0.2); Baso % (Auto) 0.7 % (0.0-2.0); Eos % (Auto) 0.4 % (0.0-4.0); Hematocrit 32.5 % (39.0-51.0); Hemoglobin 10.5 gm/dL (13.0-17.0); Lymph # (Auto) 1.3 th/mm3 (1.0-4.8); Lymph % (Auto) 14.6 % (9.0-44.0); Mean Corpuscular HGB Conc 32.3 % (32.0-36.0); Mean Corpuscular Hemoglobin 28.7 pg (27.0-34.0); Mean Corpuscular Volume 88.8 fL (80.0-100.0); Mean Platelet Volume 8.1 fL (7.0-11.0); Mono # (Auto) 0.5 th/mm3 (0.0-0.9); Mono % (Auto) 5.9 % (0.0-8.0); Neut % (Auto) 78.4 % (16.0-70.0); Platelet Count 379 th/mm3 (150-450); Red Blood Count 3.66 mil/mm3 (4.50-5.90); Red Cell Distribution Width 17.6 % (11.6-17.2)
--- NOTE | 2018-04-14 02:06 | XR ---
EXAM DATE: 04/14/2018 1:44 AM EST AGE/SEX: 62 years / Male INDICATIONS: Chest pain. CLINICAL DATA: This is the patient's initial encounter. Patient reports that signs and symptoms have been present for 1 day and indicates a pain score of 7/10. MEDICAL/SURGICAL HISTORY: . AV fistula,, BPH, bipolar, cerebral infarct, CK, Left hand contract ure, dysphagia, ESRD, GERD, heart failure, hypothyroid, PVD, dialysis schizophrenia, diabetes . car diac catheterization. COMPARISON: [facility] [place], CHEST 1V SINGLE AP, 02/27/2018. . FINDINGS: Mild interstitial infiltrate in the left lung and slight streaky parenchymal opacity in the right nenita g base. Cardiac contours are grossly unchanged. CONCLUSION: Mild infiltrates Electronically signed by: Seun Sarkar MD Board Certified Radiologist 04/14/2018 2:05 AM EST
[2018-04-14 02:30] LABS: Activated Partial Thrombo Time 29.6 sec (23.4-31.7); Prothrombin Time 10.6 sec (9.8-11.6)
[2018-04-14 02:31] LABS: Alanine Aminotransferase 14 U/L (12-78); Albumin 3.6 g/dL (3.4-5.0); Anion Gap 4 meq/L (5-15); Aspartate Aminotransferase 10 U/L (15-37); Blood Urea Nitrogen 21 mg/dL (7-18); Calcium 9.5 mg/dL (8.5-10.1); Carbon Dioxide 36.8 meq/L (21.0-32.0); Chloride 99 meq/L (98-107); Glomerular Filtration Rate 17 mL/min (>89); Glucose,Random 160 mg/dL (74-106); Lipase 151 U/L (73-393); Potassium 3.8 meq/L (3.5-5.1); Sodium 140 meq/L (136-145)
[2018-04-14 02:33] LABS: Amorphous Sediment,Urine Moderate /hpf; Bacteria,Urine Many /hpf; Bilirubin,Urine Negative (Negative); Clarity,Urine Turbid (Clear); Color,Urine Yellow (Yellw/Straw); Glucose,Urine (UA) 50 mg/dL (Negative); Leukocyte Esterase,Urine Moderate (Negative); Nitrite,Urine Negative (Negative); Renal Epithelial Cells,Urine 21 /hpf
[2018-04-14 02:34] LABS: Alkaline Phosphatase 283 U/L (45-117); Total Protein 10.2 g/dL (6.4-8.2)
--- NOTE | 2018-04-14 02:47 | ED ---
HPI General Chief complaint: GI Bleed Stated complaint: Medical Time Seen by Provider: 04/14/18 01:17 Source: patient Mode of arrival: ambulatory Limitations: no limitations History of Present Illness HPI narrative: 62 yo M c/o chest pain sudden in onset retrosternal moderately severe with spontaneous resolution. onset at rest. no radiation. assocaited symptoms include hemoptysis of bright red blood tonight. pt with hx of chronic coffee ground emesis. EGD performed approximately four months prior showing "LA Class D esophagitis" with normal gastric/duodenal mucosa. Colonosocpy 01/27/18 without acute abnormality. Related Data Home Medications Medication Instructions Recorded Confirmed ascorbic acid (vitamin C) [Vitamin 500 mg FEEDING TUBE BID 09/14/17 04/14/18 C] bisacodyl 5 mg FEEDING TUBE TID PRN 09/14/17 04/14/18 escitalopram oxalate 10 mg FEEDING TUBE DAILY 09/14/17 04/14/18 gabapentin 200 mg FEEDING TUBE HS 09/14/17 04/14/18 lamotrigine [Lamictal] 200 mg PO HS 09/14/17 04/14/18 multivitamin 1 tab FEEDING TUBE DAILY 09/14/17 04/14/18 polyethylene glycol 3350 17 g FEEDING TUBE DAILY 09/14/17 04/14/18 risperidone 0.5 mg FEEDING TUBE BID 09/14/17 04/14/18 sevelamer carbonate [Renvela] 2,400 mg FEEDING TUBE AC 09/14/17 04/14/18 trazodone 150 mg FEEDING TUBE HS 09/14/17 04/14/18 insulin glargine [Lantus U-100 10 unit SUB-Q DAILY 11/18/17 04/14/18 Insulin] lovastatin 20 mg FEEDING TUBE DAILY 11/18/17 04/14/18 Lactobacillus 1 cap FEEDING TUBE BID 04/14/18 ferrous sulfate 5.4 ml FEEDING TUBE TID 04/14/18 04/14/18 insulin aspart U-100 1 sliding scale dose SUBCUT HS 04/14/18 04/14/18 lactulose [Enulose] 30 ml FEEDING TUBE DAILY PRN 04/14/18 04/14/18 melatonin 3 mg FEEDING TUBE HS 04/14/18 04/14/18 metoclopramide HCl [Reglan] 5 mg FEEDING TUBE Q6H PRN 04/14/18 04/14/18 Previous Rx's Medication Instructions Recorded bisacodyl [Bisac-Evac] 10 mg LA DAILY PRN ea 09/22/17 tramadol 50 mg FEEDING TUBE Q6H PRN #28 tab 01/30/18 ondansetron HCl [Zofran] 4 mg PO BID PRN #10 tab 02/28/18 Allergies Allergy/AdvReac Type Severity Reaction Status Date / Time methadone Allergy Severe Anaphylaxis Verified 01/24/18 23:08 acetaminophen Allergy Unknown Anaphylaxis Verified 01/24/18 23:08 propoxyphene Allergy Unknown Anaphylaxis Verified 01/24/18 23:08 Review of Systems ROS: all other systems reviewed are negative [facility] Social History Social History Substance History: No History of Abuse Second Hand Smoke Exposure: No Smoking Status: Never smoker Tobacco Type: Cigarettes How Often Do You Have a Drink Containing Alcohol: Never Recent Travel in [facility] within the Last 8 Weeks: No Recent Out of Country Travel within the Last 8 Weeks: No Immunization History Tetanus Immunization: >5 Years Exam Narrative Exam Narrative: GENERAL: 62-year-old male chronically ill in appearance, answers questions SKIN: Focused skin assessment warm/dry. HEAD: Atraumatic. Normocephalic. EYES: Pupils equal and round. No scleral icterus. No injection or drainage. ENT: No nasal bleeding or discharge. Mucous membranes pink and moist. NECK: Trachea midline. No JVD. CARDIOVASCULAR: Regular rate and rhythm. No murmur appreciated. RESPIRATORY: No accessory muscle use. Clear to auscultation. Breath sounds equal bilaterally. GASTROINTESTINAL: Gastric tube present. There is black emesis in the tubing. MUSCULOSKELETAL: No obvious deformities. No clubbing. No cyanosis. No edema. L medial thigh AV fistula. NEUROLOGICAL: Awake and alert. No obvious cranial nerve deficits. Motor grossly within normal limits. Normal speech. PSYCHIATRIC: Appropriate mood and affect; insight and judgment normal. Course Initial Documented Vital Signs Temperature 98.5 F 04/14/18 01:36 Pulse Rate 84 04/14/18 01:36 Respiratory Rate 19 04/14/18 01:36 Blood Pressure 114/71 04/14/18 01:36 Pulse Oximetry 98 04/14/18 01:36 Last Documented Vital Signs Temperature 98.5 F 04/14/18 01:36 Pulse Rate 89 02/15/19 01:44 Respiratory Rate 19 04/14/18 01:36 Blood Pressure 114/71 04/14/18 01:36 Pulse Oximetry 98 04/14/18 01:36 Medical Decision Making MDM Narrative Medical decision making narrative: 62-year-old male with multiple medical problems including end-stage kidney disease on dialysis diabetes bipolar disorder and left-sided hemiparesis following CVA. The patient arrives today following bright red bloody emesis in the setting of chronic coffee-ground emesis with a workup that reveals bilateral pulmonary consolidation with a UTI. Antibiotics initiated. Blood cultures drawn. Discussed with hospitalist service. White blood cell count 9000 Hemoglobin 10.5 Platelet count 379 BUN/Cr essentially normal at 21/4.20 Lipase 151 Urinalysis shows UTI Abdomen pelvis CT shows no acute abnormality we do see a large hiatal hernia unchanged as well as a gastrojejunal feeding tube in good position. Chest x-ray shows by lateral densities as noted Medical Screen Exam Complete: Yes Emergency Medical Condition: Yes Lab Data Result diagrams: 04/14/18 01:53 04/14/18 01:53 Lab Results 04/14/18 04/14/18 04/14/18 Range/Units 01:53 01:53 01:53 WBC 9.0 (4.0-11.0) th/mm3 RBC 3.66 L (4.50-5.90) mil/mm3 Hgb 10.5 L (13.0-17.0) gm/dL Hct 32.5 L (39.0-51.0) % MCV 88.8 (80.0-100.0) fL MCH 28.7 (27.0-34.0) pg MCHC 32.3 (32.0-36.0) % RDW 17.6 H (11.6-17.2) % Plt Count 379 D (150-450) th/mm3 MPV 8.1 (7.0-11.0) fL Neut % (Auto) 78.4 H (16.0-70.0) % Lymph % (Auto) 14.6 (9.0-44.0) % [place] % (Auto) 5.9 (0.0-8.0) % Eos % (Auto) 0.4 (0.0-4.0) % Baso % (Auto) 0.7 (0.0-2.0) % Neut # (Auto) 7.0 (1.8-7.7) th/mm3 Lymph # (Auto) 1.3 (1.0-4.8) th/mm3 [place] # (Auto) 0.5 (0.0-0.9) th/mm3 Eos # (Auto) 0.0 (0.0-0.4) th/mm3 Baso # (Auto) 0.1 (0.0-0.2) th/mm3 WBC Differential . Differential Comment Auto diff final PT 10.6 (9.8-11.6) sec INR 1.0 Ratio APTT 29.6 (23.4-31.7) sec Sodium 140 (136-145) meq/L Potassium 3.8 (3.5-5.1) meq/L Chloride 99 (98-107) meq/L Carbon Dioxide 36.8 H (21.0-32.0) meq/L Anion Gap 4 L (5-15) meq/L BUN 21 H (7-18) mg/dL Creatinine 4.20 H (0.60-1.30) mg/dL Estimated GFR 17 L (>89) mL/min Random Glucose 160 H (74-106) mg/dL Calcium 9.5 (8.5-10.1) mg/dL Total Bilirubin 0.3 (0.2-1.0) mg/dL AST 10 L (15-37) U/L ALT 14 (12-78) U/L Alkaline Phosphatase 283 H (45-117) U/L Total Protein 10.2 H (6.4-8.2) g/dL Albumin 3.6 (3.4-5.0) g/dL Lipase 151 (73-393) U/L Urine Color (Yellw/Straw) Urine Clarity (Clear) Urine pH (5.0-8.5) Ur Specific Cory (1.002-1.035) Urine Protein (Neg-Trace) mg/dL Urine Glucose (UA) (Negative) mg/dL Urine Ketones (Negative) mg/dL Urine Occult Blood (Negative) Urine Nitrate (Negative) Urine Bilirubin (Negative) Urine Urobilinogen (Less than 2) mg/dL Ur Leukocyte Esterase (Negative) Urine RBC (0-3) /hpf Urine WBC (0-5) /hpf Urine WBC Clumps (None) Ur Renal Epithelial Cell (None) /hpf Amorphous Sediment (None) /hpf Urine Bacteria (None) /hpf Micro UA Comment Ur Microscopic Review Urine Culture Comments Blood Type Blood Type Recheck Antibody Screen 04/14/18 04/14/18 Range/Units 01:53 02:15 WBC (4.0-11.0) th/mm3 RBC (4.50-5.90) mil/mm3 Hgb (13.0-17.0) gm/dL Hct (39.0-51.0) % MCV (80.0-100.0) fL MCH (27.0-34.0) pg MCHC (32.0-36.0) % RDW (11.6-17.2) % Plt Count (150-450) th/mm3 MPV (7.0-11.0) fL Neut % (Auto) (16.0-70.0) % Lymph % (Auto) (9.0-44.0) % [place] % (Auto) (0.0-8.0) % Eos % (Auto) (0.0-4.0) % Baso % (Auto) (0.0-2.0) % Neut # (Auto) (1.8-7.7) th/mm3 Lymph # (Auto) (1.0-4.8) th/mm3 [place] # (Auto) (0.0-0.9) th/mm3 Eos # (Auto) (0.0-0.4) th/mm3 Baso # (Auto) (0.0-0.2) th/mm3 WBC Differential Differential Comment PT (9.8-11.6) sec INR Ratio APTT (23.4-31.7) sec Sodium (136-145) meq/L Potassium (3.5-5.1) meq/L Chloride (98-107) meq/L Carbon Dioxide (21.0-32.0) meq/L Anion Gap (5-15) meq/L BUN (7-18) mg/dL Creatinine (0.60-1.30) mg/dL Estimated GFR (>89) mL/min Random Glucose (74-106) mg/dL Calcium (8.5-10.1) mg/dL Total Bilirubin (0.2-1.0) mg/dL AST (15-37) U/L ALT (12-78) U/L Alkaline Phosphatase (45-117) U/L Total Protein (6.4-8.2) g/dL Albumin (3.4-5.0) g/dL Lipase (73-393) U/L Urine Color Yellow (Yellw/Straw) Urine Clarity Turbid H (Clear) Urine pH 8.0 (5.0-8.5) Ur Specific Cory 1.020 (1.002-1.035) Urine Protein 100 H (Neg-Trace) mg/dL Urine Glucose (UA) 50 (Negative) mg/dL Urine Ketones Negative (Negative) mg/dL Urine Occult Blood Moderate H (Negative) Urine Nitrate Negative (Negative) Urine Bilirubin Negative (Negative) Urine Urobilinogen Less than 2 (Less than 2) mg/dL Ur Leukocyte Esterase Moderate H (Negative) Urine RBC (0-3) /hpf Urine WBC (0-5) /hpf Urine WBC Clumps Many H (None) Ur Renal Epithelial Cell 21 (None) /hpf Amorphous Sediment Moderate H (None) /hpf Urine Bacteria Many H (None) /hpf Micro UA Comment Cath-culture ind Ur Microscopic Review Not Reportable Urine Culture Comments Cath-cult indicated Blood Type B Positive Blood Type Recheck Not needed Antibody Screen Negative Imaging Data Radiologist's impression: Abdomen/Pelvis CT 04/14/18 01:18 CONCLUSION: Stable CT appearance of the abdomen and pelvis with no definite acute findings. Chest X-Ray 04/14/18 01:18 CONCLUSION: Mild infiltrates Discharge Plan Discharge Disposition Patient Disposition: ED Admit(ED Internal Use Only) Discharge Order Discharge Orders: ED Use Only Admit Order (Routine); Ordered 04/14/18 Ordered By: Hiren Stroud Physicians Team ED Provider: Hiren Stroud Primary Care Provider: UNKNOWN, Attending Provider: Liane Rodriguez Other Providers: Doron Head V Status ED Status: Admitted Observation Patient
--- NOTE | 2018-04-14 02:48 | CT ---
EXAM DATE: 04/14/2018 2:31 AM EST AGE/SEX: 62 years / Male INDICATIONS: Blood in stool, coffee ground emesis. CLINICAL DATA: This is the patient's initial encounter. Patient reports that signs and symptoms have been present for 1 day and indicates a pain score of Nonresponsive. MEDICAL/SURGICAL HISTORY: Renal failure, chronic. GI Bleed. PVD. . Dialysis. G tube. RADIATION DOSE: 8.90 CTDI (mGy) COMPARISON: [facility] [place] ABDOMEN & PELVIS W/O CONTRAST, 01/25/2018. . TECHNIQUE: Multiple contiguous axial images were obtained through the abdomen. Images were obtained using multiple row detector helical technique. Using automated exposure control and adjustment of the mA and/or kV according to patient size, radiation dose was kept as low as reasonably achievable to o btain optimal diagnostic quality images. DICOM format image data is available electronically for rev iew and comparison. FINDINGS: Lower Lungs: Slight atelectasis in the lung bases. Liver: The liver has a homogeneous density without space-occupying lesion. There is no dilation of th e biliary tree. Spleen: Homogeneous density without enlargement. Pancreas: Unremarkable without mass or calcification. Kidneys: Atrophic kidneys, unchanged with no hydronephrosis. Adrenal Glands: Mild nodular prominence of the adrenals unchanged. Aorta: The aorta and proximal iliac vessels are grossly unremarkable without aneurysmal dilation. V ascular stent seen extending through the left common femoral vein into the proximal superficial femor al vein. Bowel/Mesentery: Moderately large hiatal hernia, unchanged. Gastrojejunal feeding tube in good posit ion. Abdominal Wall: Left upper quadrant GJ tube Retroperitoneum: No evidence of adenopathy in the retrocrural, para-aortic, or deep pelvic regions. Bladder: Decompressed Reproductive Organs: No abnormal masses or calcifications seen. Inguinal: Uppermost aspect of a presumed left thigh dialysis graft. Bony Structures: Unremarkable. CONCLUSION: Stable CT appearance of the abdomen and pelvis with no definite acute findings. Electronically signed by: Seun Sarkar MD Board Certified Radiologist 04/14/2018 2:47 AM EST
[2018-04-14] MEDS ORDERED: Vancomycin Inj 1,000 MG in Sodium Chlor 0.9% Inj 250 ML IV.SIG ONE (03:08)
[2018-04-14 09:26] LABS: Hematocrit 27.5 % (39.0-51.0); Hemoglobin 8.8 gm/dL (13.0-17.0)
--- NOTE | 2018-04-14 10:28 | P.CONGI ---
History of Present Illness Consult date: 04/14/18 Consult reason: GI bleed Chief complaint: GI Bleed History of Present Illness: Chart reviewed for acquisition of information to compile HPI as patient noncontributory. This patient is a 62-year-old male with past medical history of chronic renal disease on dialysis, insulin-dependent diabetes, hypertension, CVA with paralysis. Patient also has medical history of esophagitis. Surgical history includes cardiac cath and PEG tube placement via IR. Patient presented to [facility] emergency room from [facility] facility with report of chest wall burning pain, one reported episode of hemoptysis overnight. Patient has history of coffee-ground emesis. Last EGD performed revealed class B esophagitis with normal gastric and duodenal mucosa. Colonoscopy performed 01/27/2018 without an acute abnormality noted. Hgb 10.5 on admission, 8.8 recheck this am. Gtube present with dark brown gastric content. Pt endorses generalized abd pain with mild nausea. Our service has been consulted to evaluate for GIB. Of, note, pt has not been on PPI as home med. No noted NSAIDS listed. No blood thinners noted. Review of Systems All other systems reviewed negative except as stated in HPI, unobtainable due to mental status PMFSH - History History Provided By: Patient - Medical History Medical History: Medical History (Last Reviewed 04/14/18 @ 12:20 by Nav Moya MD) AV (arteriovenous fistula) Anxiety Benign prostatic hyperplasia Bipolar disorder Cerebral infarction Chronic kidney disease Contracture, left hand Dysphagia Dysphagia, oropharyngeal phase End stage renal disease Esophagitis Gastroesophageal reflux disease Heart failure Hyperlipidemia Hypothyroidism Iron deficiency anemia Mood disorder Muscle weakness Osteoporosis Peripheral vascular disease Renal dialysis status Schizophrenia Type 2 diabetes mellitus - Surgical History Surgical History: Surgical History (Last Reviewed 04/14/18 @ 12:20 by Nav Moya MD) H/O cardiac catheterization - Family History Family History: Family History (Last Updated 04/14/18 @ 12:20 by Nav Moya MD) Other Hypertension No family history of cardiac disease - Tobacco History Second Hand Smoke Exposure: No Smoking Status: Cognitive impairment Tobacco Type: Cigarettes - Alcohol History How Often Do You Have a Drink Containing Alcohol: Unable to Obtain - Substance Use History Substance History: No History of Abuse - Travel History Recent Travel in the [place] Within the Last 8 Weeks: No Recent Travel Out of the Country Within the Last 8 Weeks: No - Immunization History Tetanus Immunization: >5 Years Medications and Allergies Active Medications: Active Medications Cefepime HCl 2,000 mg/ Sodium (Chloride) 100 mls @ 200 mls/hr IV.SIG Q8H [facility] Last Infusion: 04/14/18 04:54 Dose: Infused Ondansetron HCl (Zofran Inj) 4 mg IV.PUSH Q6H PRN PRN Reason: NAUSEA OR VOMITING Pantoprazole Sodium (Protonix Inj) 40 mg IV.PUSH Q12H [facility] Senna/Docusate Sodium (Radha-Colace) 1 tab PO BID [facility] Sodium Chloride (Ns Flush) 2 ml IV.FLUSH PRN PRN PRN Reason: FLUSH AFTER USING IV ACCESS Sodium Chloride (Ns Flush) 2 ml IV.FLUSH BID [facility] Last Admin: 04/14/18 09:03 Dose: 2 ml Sodium Chloride (Ns Flush) 2 ml IV.FLUSH PRN PRN PRN Reason: FLUSH AFTER USING IV ACCESS Allergies Allergy/AdvReac Type Severity Reaction Status Date / Time methadone Allergy Severe Anaphylaxis Verified 01/24/18 23:08 acetaminophen Allergy Unknown Anaphylaxis Verified 01/24/18 23:08 propoxyphene Allergy Unknown Anaphylaxis Verified 01/24/18 23:08 Home Medications Medication Instructions Recorded Confirmed Type ascorbic acid (vitamin C) [Vitamin 500 mg FEEDING TUBE BID 09/14/17 04/14/18 History C] bisacodyl 5 mg FEEDING TUBE TID PRN 09/14/17 04/14/18 History escitalopram oxalate 10 mg FEEDING TUBE DAILY 09/14/17 04/14/18 History gabapentin 200 mg FEEDING TUBE HS 09/14/17 04/14/18 History lamotrigine [Lamictal] 200 mg PO HS 09/14/17 04/14/18 History multivitamin 1 tab FEEDING TUBE DAILY 09/14/17 04/14/18 History polyethylene glycol 3350 17 g FEEDING TUBE DAILY 09/14/17 04/14/18 History risperidone 0.5 mg FEEDING TUBE BID 09/14/17 04/14/18 History sevelamer carbonate [Renvela] 2,400 mg FEEDING TUBE AC 09/14/17 04/14/18 History trazodone 150 mg FEEDING TUBE HS 09/14/17 04/14/18 History insulin glargine [Lantus U-100 10 unit SUB-Q DAILY 11/18/17 04/14/18 History Insulin] lovastatin 20 mg FEEDING TUBE DAILY 11/18/17 04/14/18 History Lactobacillus 1 cap FEEDING TUBE BID 04/14/18 History ferrous sulfate 5.4 ml FEEDING TUBE TID 04/14/18 04/14/18 History insulin aspart U-100 1 sliding scale dose SUBCUT HS 04/14/18 04/14/18 History lactulose [Enulose] 30 ml FEEDING TUBE DAILY PRN 04/14/18 04/14/18 History melatonin 3 mg FEEDING TUBE HS 04/14/18 04/14/18 History metoclopramide HCl [Reglan] 5 mg FEEDING TUBE Q6H PRN 04/14/18 04/14/18 History Exam Vital signs: Vital Signs 04/14/18 01:36 04/14/18 01:44 04/14/18 06:28 Temperature 98.5 F 97.7 F Pulse Rate 84 89 79 Respiratory Rate 19 12 Blood Pressure 114/71 113/63 Pulse Oximetry 98 98 04/14/18 08:00 Temperature 98.2 F Pulse Rate 75 Respiratory Rate 16 Blood Pressure 111/65 Pulse Oximetry 95 Intake & Output 04/13/18 04/14/18 04/14/18 18:59 06:59 18:59 Intake Total 350 / 350 Balance 350 / 350 Weight 74.843 kg 74.843 kg Intake: IV 350 / 350 Maxipime Inj 2,000 MG In NS Inj 100 / 100 100 ML @ 200 mls/hr IV.SIG Q8H [facility] Rx#:[id number] Vancomycin Inj 1,000 MG In NS 250 / 250 Inj 250 ML @ 250 mls/hr IV.SIG ONCE ONE Rx#:[id number] Other: Weight On Admission 74.843 kg - Constitutional chronically ill appearing, cooperative - Routine HEENT Exam Head: Present: normocephalic - Routine Neck Exam Present: supple - Routine Respiratory Exam Present: CTA bilaterally. Absent: accessory muscle use - Routine Cardiovascular Exam Present: RRR - Routine Abdominal Exam Present: soft, normoactive bowel sounds, tenderness, ostomy. Absent: distended , guarding, firm - Routine Extremities Exam Absent: edema Comments: lle wrapped ingauze dressing contracture of upper ext - Routine Skin Exam Present: dry, warm. Absent: pallor - Routine Neurological Exam Present: alert Results - Labs CBC & Chem 7: 04/14/18 17:05 04/14/18 01:53 Labs: Laboratory Results - last 24 hr 04/14/18 04/14/18 04/14/18 01:53 01:53 01:53 WBC 9.0 RBC 3.66 L Hgb 10.5 L Hct 32.5 L MCV 88.8 MCH 28.7 MCHC 32.3 RDW 17.6 H Plt Count 379 D MPV 8.1 Neut % (Auto) 78.4 H Lymph % (Auto) 14.6 [place] % (Auto) 5.9 Eos % (Auto) 0.4 Baso % (Auto) 0.7 Neut # (Auto) 7.0 Lymph # (Auto) 1.3 [place] # (Auto) 0.5 Eos # (Auto) 0.0 Baso # (Auto) 0.1 WBC Differential . Differential Comment Auto diff final PT 10.6 INR 1.0 APTT 29.6 Sodium 140 Potassium 3.8 Chloride 99 Carbon Dioxide 36.8 H Anion Gap 4 L BUN 21 H Creatinine 4.20 H Estimated GFR 17 L Random Glucose 160 H Calcium 9.5 Total Bilirubin 0.3 AST 10 L ALT 14 Alkaline Phosphatase 283 H Total Protein 10.2 H Albumin 3.6 Lipase 151 Urine Color Urine Clarity Urine pH Ur Specific [place] Urine Protein Urine Glucose (UA) Urine Ketones Urine Occult Blood Urine Nitrate Urine Bilirubin Urine Urobilinogen Ur Leukocyte Esterase Urine RBC Urine WBC Urine WBC Clumps Ur Renal Epithelial Cell Amorphous Sediment Urine Bacteria Micro UA Comment Ur Microscopic Review Urine Culture Comments Blood Type Blood Type Recheck Antibody Screen 04/14/18 04/14/18 04/14/18 01:53 02:15 08:52 WBC RBC Hgb 8.8 L Hct 27.5 L MCV MCH MCHC RDW Plt Count MPV Neut % (Auto) Lymph % (Auto) [place] % (Auto) Eos % (Auto) Baso % (Auto) Neut # (Auto) Lymph # (Auto) [place] # (Auto) Eos # (Auto) Baso # (Auto) WBC Differential Differential Comment PT INR APTT Sodium Potassium Chloride Carbon Dioxide Anion Gap BUN Creatinine Estimated GFR Random Glucose Calcium Total Bilirubin AST ALT Alkaline Phosphatase Total Protein Albumin Lipase Urine Color Yellow Urine Clarity Turbid H Urine pH 8.0 Ur Specific [place] 1.020 Urine Protein 100 H Urine Glucose (UA) 50 Urine Ketones Negative Urine Occult Blood Moderate H Urine Nitrate Negative Urine Bilirubin Negative Urine Urobilinogen Less than 2 Ur Leukocyte Esterase Moderate H Urine RBC Urine WBC Urine WBC Clumps Many H Ur Renal Epithelial Cell 21 Amorphous Sediment Moderate H Urine Bacteria Many H Micro UA Comment Cath-culture ind Ur Microscopic Review Not Reportable Urine Culture Comments Cath-cult indicated Blood Type B Positive Blood Type Recheck Not needed Antibody Screen Negative - Imaging Impressions Abdomen/Pelvis CT 04/14/18 01:18 CONCLUSION: Stable CT appearance of the abdomen and pelvis with no definite acute findings. Chest X-Ray 04/14/18 01:18 CONCLUSION: Mild infiltrates Assessment and Plan (1) Anemia Status: Acute Code(s): D64.9 - Anemia, unspecified (2) Coffee ground emesis Status: Acute Code(s): K92.0 - Hematemesis - Plan Chart reviewed for acquisition of information to compile HPI as patient noncontributory. This patient is a 62-year-old male with past medical history of chronic renal disease on dialysis, insulin-dependent diabetes, hypertension, CVA with paralysis. Patient also has medical history of esophagitis. Surgical history includes cardiac cath and PEG tube placement via IR. Patient presented to [facility] emergency room from [facility] facility with report of chest wall burning pain, one reported episode of hemoptysis overnight. Patient has history of coffee-ground emesis. Last EGD performed revealed class B esophagitis with normal gastric and duodenal mucosa. Colonoscopy performed 01/27/2018 without an acute abnormality noted. Hgb 10.5 on admission, 8.8 recheck this am. Gtube present with dark brown gastric content. Pt endorses generalized abd pain with mild nausea. Our service has been consulted to evaluate for GIB. Of, note, pt has not been on PPI as home med. No noted NSAIDS listed. No blood thinners noted. GIB Coffee ground emesis Patient sent from [facility] facility with report of one episode of hemoptysis. History of coffee-ground emesis. Last EGD 01/25/2018 revealed a esophagitis with normal gastric and duodenal mucosa. Colonoscopy performed without acute abnormality noted. Hemoglobin 8.8 hematocrit 27.5 INR 1.0 History of chronic renal disease-BUN 21 creatinine 4.20 on hemodialysis Plan -N.p.o. -Obtain consent for EGD -PPI -Avoid NSAIDs -Avoid anticoagulants -Monitor labs -Monitor for active bleeding -Supportive care -Further recommendations to follow This patient has been seen by myself and Dr. Head and this note is written on his behalf Addendum 11:41 Patient refusing upper endoscopy at this time. Will proceed with medical management including PPI administration-pantoprazole drip for the next 24 hours and serial monitoring of hemoglobin and hematocrit. - Attending Attestation Dr. Head
[2018-04-14] MEDS: Senna/Docusate Sodium 8.6/50 MG Tablet PO SCH ×2 (10:30→22:02)
--- NOTE | 2018-04-14 12:29 | P.HPIM ---
History of Present Illness Primary Care Physician: UNKNOWN History of Present Illness: 62-year-old male with history of CVA and functional paralysis, CAD, type 2 diabetes, ESRD on dialysis, PEG tube, previous upper GI bleed, presented to the hospital overnight with chest pain that was followed by emesis mixed with bright red blood. His hemoglobin at first appeared stable but has dropped nearly 2 points since his arrival, 10.5 to 8.8. At this point he says the bleeding has stopped and he has no more chest pain, no specific complaints. Previous EGD performed 4 months ago showed "LA class D esophagitis " within normal duodenal and gastric mucosa. Colonoscopy on 01/27/2018 showed no abnormality. Patient is alert and oriented x3 and intact for decision-making , knowing the risks and benefits he has refused an EGD that was scheduled for this morning. His blood will continue to be monitored, if bleeding persists he will be encouraged again to undergo an EGD, otherwise at this point which is trending his hemoglobin. He denies any other significant symptoms. He denies fevers or cough. He denies chest pain or arrhythmia. He denies any diarrhea. Diagnosis (1) Anemia: (2) Coffee ground emesis: Review of Systems Review of Systems: all other systems reviewed are negative [facility] Medical History Medical History AV (arteriovenous fistula) (Acute) Anxiety (Acute) Benign prostatic hyperplasia (Acute) Bipolar disorder (Acute) Cerebral infarction (Acute) Chronic kidney disease (Acute) Contracture, left hand (Acute) Dysphagia (Acute) Dysphagia, oropharyngeal phase (Acute) End stage renal disease (Acute) Esophagitis (Acute) Gastroesophageal reflux disease (Acute) Heart failure (Acute) Hyperlipidemia (Acute) Hypothyroidism (Acute) Iron deficiency anemia (Acute) Mood disorder (Acute) Muscle weakness (Acute) Osteoporosis (Acute) Peripheral vascular disease (Acute) Renal dialysis status (Acute) Schizophrenia (Acute) Type 2 diabetes mellitus (Acute) Surgical History Surgical History H/O cardiac catheterization (Acute) Family History Family History Other Hypertension No family history of cardiac disease Social History Social History Substance History: No History of Abuse Second Hand Smoke Exposure: No Smoking Status: Cognitive impairment Tobacco Type: Cigarettes How Often Do You Have a Drink Containing Alcohol: Unable to Obtain Recent Travel in [place] within the Last 8 Weeks: No Recent Out of Country Travel within the Last 8 Weeks: No Immunization History Tetanus Immunization: >5 Years Medications and Allergies Allergies Allergy/AdvReac Type Severity Reaction Status Date / Time methadone Allergy Severe Anaphylaxis Verified 01/24/18 23:08 acetaminophen Allergy Unknown Anaphylaxis Verified 01/24/18 23:08 propoxyphene Allergy Unknown Anaphylaxis Verified 01/24/18 23:08 Home Medications Medication Instructions Recorded Confirmed Type ascorbic acid (vitamin C) [Vitamin 500 mg FEEDING TUBE BID 09/14/17 04/14/18 History C] bisacodyl 5 mg FEEDING TUBE TID PRN 09/14/17 04/14/18 History escitalopram oxalate 10 mg FEEDING TUBE DAILY 09/14/17 04/14/18 History gabapentin 200 mg FEEDING TUBE HS 09/14/17 04/14/18 History lamotrigine [Lamictal] 200 mg PO HS 09/14/17 04/14/18 History multivitamin 1 tab FEEDING TUBE DAILY 09/14/17 04/14/18 History polyethylene glycol 3350 17 g FEEDING TUBE DAILY 09/14/17 04/14/18 History risperidone 0.5 mg FEEDING TUBE BID 09/14/17 04/14/18 History sevelamer carbonate [Renvela] 2,400 mg FEEDING TUBE AC 09/14/17 04/14/18 History trazodone 150 mg FEEDING TUBE HS 09/14/17 04/14/18 History insulin glargine [Lantus U-100 10 unit SUB-Q DAILY 11/18/17 04/14/18 History Insulin] lovastatin 20 mg FEEDING TUBE DAILY 11/18/17 04/14/18 History Lactobacillus 1 cap FEEDING TUBE BID 04/14/18 History ferrous sulfate 5.4 ml FEEDING TUBE TID 04/14/18 04/14/18 History insulin aspart U-100 1 sliding scale dose SUBCUT HS 04/14/18 04/14/18 History lactulose [Enulose] 30 ml FEEDING TUBE DAILY PRN 04/14/18 04/14/18 History melatonin 3 mg FEEDING TUBE HS 04/14/18 04/14/18 History metoclopramide HCl [Reglan] 5 mg FEEDING TUBE Q6H PRN 04/14/18 04/14/18 History Active Medications: Active Medications Cefepime HCl 2,000 mg/ Sodium (Chloride) 100 mls @ 200 mls/hr IV.SIG Q8H [facility] Last Infusion: 04/14/18 04:54 Dose: Infused Pantoprazole Sodium 80 mg/ (Sodium Chloride) 100 mls @ 10 mls/hr IV.CONT Q10H [facility] Ondansetron HCl (Zofran Inj) 4 mg IV.PUSH Q6H PRN PRN Reason: NAUSEA OR VOMITING Senna/Docusate Sodium (Radha-Colace) 1 tab PO BID [facility] Last Admin: 04/14/18 10:30 Dose: 1 tab Sodium Chloride (Ns Flush) 2 ml IV.FLUSH PRN PRN PRN Reason: FLUSH AFTER USING IV ACCESS Sodium Chloride (Ns Flush) 2 ml IV.FLUSH BID [facility] Last Admin: 04/14/18 09:03 Dose: 2 ml Sodium Chloride (Ns Flush) 2 ml IV.FLUSH PRN PRN PRN Reason: FLUSH AFTER USING IV ACCESS Physical Exam Vital signs: Vital Signs 04/14/18 01:36 04/14/18 01:44 04/14/18 06:28 Temperature 98.5 F 97.7 F Pulse Rate 84 89 79 Respiratory Rate 19 12 Blood Pressure 114/71 113/63 Pulse Oximetry 98 98 04/14/18 08:00 04/14/18 09:00 Temperature 98.2 F Pulse Rate 71 71 Respiratory Rate 16 Blood Pressure 111/65 Pulse Oximetry 95 Intake & Output 04/13/18 04/14/18 04/14/18 18:59 06:59 18:59 Intake Total 350 / 350 Balance 350 / 350 Weight 74.843 kg 74.843 kg Intake: IV 350 / 350 Maxipime Inj 2,000 MG In NS Inj 100 / 100 100 ML @ 200 mls/hr IV.SIG Q8H [facility] Rx#:[id number] Vancomycin Inj 1,000 MG In NS 250 / 250 Inj 250 ML @ 250 mls/hr IV.SIG ONCE ONE Rx#:[id number] Other: Weight On Admission 74.843 kg Narrative: GENERAL: AAOx3, no acute distress, adequate nutrition, functional paralysis SKIN: Warm and dry, no rashes. HEAD: Atraumatic. Normocephalic. EYES: Pupils equal, round, reactive to light. No scleral icterus. No injection or drainage. ENT: No nasal bleeding or discharge. Moist mucous membranes. Nonerythematous oropharynx. NECK: Trachea midline. No JVD. Thyroid size within normal limits. CARDIOVASCULAR: Regular rate and rhythm. No murmur, no gallops, no rubs. RESPIRATORY: Clear and equal to auscultation bilaterally. No crackles, no wheezes. No accessory muscle use. GASTROINTESTINAL: Abdomen soft, non-tender, nondistended, normal active bowel sounds. Hepatic and splenic margins not palpable. MUSCULOSKELETAL: Contractures of upper and lower extremities, no functional use of hands, functional quadriplegia NEUROLOGICAL: Awake and alert. Deficits and contractures consistent with history of CVA and subsequent paralysis PSYCHIATRIC: Appropriate mood and affect; insight and judgment normal. Results Labs CBC & Chem 7: 04/14/18 08:52 04/14/18 01:53 Imaging Impressions Abdomen/Pelvis CT 04/14/18 01:18 CONCLUSION: Stable CT appearance of the abdomen and pelvis with no definite acute findings. Chest X-Ray 04/14/18 01:18 CONCLUSION: Mild infiltrates Caprini VTE Risk Assessment Caprini VTE Risk Assessment: Moderate/High Risk (score >= 2) Caprini Risk Assessment Model: Point Value = 1 Point Value = 2 Point Value = 3 Point Value = 5 Age 41-60 Minor surgery BMI > 25 kg/m2 Swollen legs Varicose veins or History of unexplained or recurrent spontaneous Oral contraceptives or hormone replacement Sepsis (< 1 month) Serious lung disease, including pneumonia (< 1 month) Abnormal pulmonary function Acute myocardial infarction Congestive heart failure (< 1 month) History of inflammatory bowel disease Medical patient at bed rest Age 61-74 Arthroscopic surgery Major open surgery (> 45 min) Laparoscopic surgery (> 45 min) Malignancy Confined to bed (> 72 hours) Immobilizing plaster cast Central venous access Age >= 75 History of VTE Family history of VTE Factor V Leiden Prothrombin [id number] Lupus anticoagulant Anticardiolipin antibodies Elevated serum homocysteine Heparin-induced thrombocytopenia Other congenital or acquired thrombophilia Stroke (< 1 month) Elective arthroplasty Hip, pelvis, or leg fracture Acute spinal cord injury (< 1 month) Prophylaxis Regimen: Total Risk Factor Score Risk Level Prophylaxis Regimen 0-1 Low Early ambulation 2 Moderate Order ONE of the following: *Sequential Compression Device (SCD) *Heparin 5000 units SQ BID 3-4 Higher Order ONE of the following medications: *Heparin 5000 units SQ TID *Enoxaparin/Lovenox 40 mg SQ daily (WT < 150 kg, CrCl > 30 mL/min) *Enoxaparin/Lovenox 30 mg SQ daily (WT < 150 kg, CrCl > 10-29 mL/min) *Enoxaparin/Lovenox 30 mg SQ BID (WT < 150 kg, CrCl > 30 mL/min) AND/OR *Sequential Compression Device (SCD) 5 or more Highest Order ONE of the following medications: *Heparin 5000 units SQ TID (Preferred with Epidurals) *Enoxaparin/Lovenox 40 mg SQ daily (WT < 150 kg, CrCl > 30 mL/min) *Enoxaparin/Lovenox 30 mg SQ daily (WT < 150 kg, CrCl > 10-29 mL/min) *Enoxaparin/Lovenox 30 mg SQ BID (WT < 150 kg, CrCl > 30 mL/min) AND *Sequential Compression Device (SCD) Assessment and Plan (1) Anemia: Code(s): D64.9 - Anemia, unspecified Status: Acute (2) Coffee ground emesis: Code(s): K92.0 - Hematemesis Status: Acute Plan Upper GI bleed w/ anemia Patient presented to the ER overnight with chest pain and bright red blood in emesis Patient was seen 4 months ago for the same thing, esophagitis present at that time, normal gastric mucosa EGD was scheduled for this morning, patient refused We will trend hemoglobin to rule out further bleeding, otherwise monitor clinically for now Appreciate gastroenterology consult h/o PEG tube No issues 4 months ago on EGD, however this should be considered if bleeding persists ESRD w/ dialysis Nephrology consult to arrange for ongoing dialysis treatments Type 2 diabetes Accu-Cheks with sliding scale insulin coverage Diabetic diet when p.o. resumed Functional quadriplegia, CVA Patient has contractures and deficits consistent with previous CVA He will need long-term PT, if he remains hospitalized we will consult PT, but possible discharge back to his SNF tomorrow h/o CAD Asymptomatic currently, monitor for any further chest pain h/o schizophrenia Appears stable now, appropriate mood, fair insight, alert and oriented x3 DVT prophylaxis SCDs, chemoprophylaxis held due to current upper GI bleed H&P: Quality VTE Deep Vein Thrombosis/Pulmonary Embolism Present on Admission: No _ (1) Anemia Qualifiers: Anemia type: Iron deficiency anemia type: Vitamin B12 deficiency anemia type: Folate deficiency anemia type: Bone marrow failure anemia type: Hemolytic anemia type: Other causes of anemia: Chronic kidney disease stage :
[2018-04-14] MEDS: Pantoprazole Inj 80 MG in Sodium Chlor 0.9% Inj 100 ML IV.CONT SCH (12:48)
[2018-04-14] MEDS ORDERED: Pantoprazole Inj 40 MG Vial IV.PUSH SCH (13:00)
[2018-04-14 17:42] LABS: Hematocrit 29.5 % (39.0-51.0); Hemoglobin 9.8 gm/dL (13.0-17.0)
[2018-04-14] MEDS ORDERED: Heparin 10,000 UNITS/10 ML Vial (for IV use) OTHER PRN ×2 (22:32)
[2018-04-14] MEDS ORDERED: Sod Chloride 0.9% Inj 1,000 ML IV.CONT PRN (22:32)
[2018-04-14] MEDS ORDERED: Gelatin 12 MM/7 MM Topical Foam TOPICAL PRN (22:32)
[2018-04-14] MEDS ORDERED: Albumin Human 25% Inj 100 ML IV.SIG PRN (22:32)
[2018-04-14] MEDS ORDERED: Acetaminophen 325 MG Tablet PO PRN (22:32)
[2018-04-14] MEDS ORDERED: Sod Chloride 0.9% Inj 1,000 ML OTHER PRN ×2 (22:32)
--- NOTE | 2018-04-14 23:14 | MB ---
cc: Lizeth Bell MD DATE: 04/14/2018 REASON FOR CONSULTATION: End-stage renal disease, on hemodialysis for management. HISTORY OF PRESENT ILLNESS: This is a 62-year-old male known to me from before, with past medical history of hypertension, diabetes mellitus and history of cerebrovascular accident, ischemic heart disease, history of GI bleeding in the past, history of PEG placement with a failed swallowing test, end-stage renal disease, on hemodialysis 3 times per week, Tuesday, and Tuesday. He was brought to the hospital from the nursing facility because of chest pain followed by fresh blood in the vomiting. I was called to see the patient for the management of dialysis. He has been on hemodialysis, last hemodialysis done yesterday, and he lives in a nursing facility and was brought in here because he was found to have blood in the vomiting. The patient had a PEG inserted months ago and has been on feedings through the PEG tube. He was offered to have endoscopy when he came in this morning and he refused. I saw the patient in the late afternoon and at that point, he was asking for food. The patient was already seen by gastroenterology. He had abdominal pain when he came in, but when I saw him, it was already improving. There is no history of diarrhea or blood in the stool. The patient has been bedridden because of the cerebrovascular accident and he has an AV graft in the thigh area. PAST MEDICAL HISTORY: Hypertension, diabetes mellitus, history of cerebrovascular accident, bipolar disorder, end-stage renal disease on hemodialysis 3 times a week, hypothyroidism, hyperlipidemia, peripheral vascular disease, schizophrenia, chronic anemia, history of GI bleeding. PAST SURGICAL HISTORY: History of AV graft in the thigh, cardiac catheterization, PEG placement. REVIEW OF SYSTEMS: The patient denies any history of fever. No shortness of breath. No headache. No dizziness. No chest pain now. He had some pain initially when he came in, but now is complaining of mainly epigastric pain. He had no vomiting and has some blood in the vomitus. There is no history of diarrhea. No blood in the stool. SOCIAL HISTORY: The patient currently lives in a nursing facility, mainly is bedbound because of a cerebrovascular accident. FAMILY HISTORY: Noncontributory. ALLERGIES: 1. METHADONE. 2. ACETAMINOPHEN. 3. PROPOXYPHENE. MEDICATIONS: He is on: 1. Cefepime 2 gram IV every 24 hours. 2. Zofran as needed. 3. Protonix infusion. 4. Radha-Colace 1 p.o. b.i.d. PHYSICAL EXAMINATION: GENERAL: The patient is awake, alert, not in acute distress. VITAL SIGNS: Blood pressure recorded is 96/64, blood pressure has been on the lower side, lowest was 80/65, temperature 97.7, oxygen saturation 90-93%. HEENT: Pupils are mid constricted. Nonicteric sclerae. Conjunctivae pale. NECK: Supple. JVD is not elevated. LUNGS: The patient has bilateral decreased air entry with scattered wheezing. HEART: S1, S2. Regular rate and rhythm. ABDOMEN: Soft and lax. There is a PEG tube in place. There is mild epigastric tenderness. Bowel sounds positive. EXTREMITIES: He has some muscle wasting in both legs and superficial skin changes with scaling and some superficial ulcers. INVESTIGATIONS: WBC count is 9.0, hemoglobin 10.5, with the last hemoglobin is 9.8, platelet count of 379, neutrophils 78.4%. INR is 1.0. Sodium 140, potassium 3.8, chloride 99, bicarbonate 36.8, BUN 21, creatinine 4.1, glucose 160. AST is 10, ALT is 14, total protein is 10.2, albumin 3.6, lipase is 151. Urinalysis showing cloudy urine with many WBCs and moderate sediment. Urine culture and blood culture pending. IMAGING STUDIES: The patient had a renal chest x-ray done, which shows that he has a mild infiltrate. CT scan of the abdomen and pelvis was done, which was stable. There was no acute finding. ASSESSMENT AND PLAN: 1. Gastrointestinal bleeding. 2. Anemia. 3. History of PEG tube insertion, with n.p.o. 4. End-stage renal disease, on hemodialysis. 5. History of diabetes mellitus. 6. Bipolar disorder and schizophrenia. 7. History of cerebrovascular accident. The patient has been on hemodialysis, Tuesday, and Tuesday. His potassium is normal and he is not in fluid overload status. He had hemodialysis done yesterday. We will plan for hemodialysis tomorrow. There is no heparin with dialysis. Hemoglobin dropped initially, but now it is slightly better. Gastroenterology has been following. The patient refused endoscopy. We will wait for further gastroenterology recommendations. In the meantime, he will have follow up of the hemoglobin. Give him the Epogen with dialysis. Thank you for the consultation. I will follow the patient while he is in the hospital. MD LITA Green/sadia , 10:32 PM , 10:45 PM
[2018-04-15] MEDS ORDERED: Morphine Sulfate Inj 2 MG/ML Vial IV.PUSH ONE (02:14)
[2018-04-15 02:40] LABS: Baso % (Auto) 0.8 % (0.0-2.0); Eos # (Auto) 0.1 th/mm3 (0.0-0.4); Eos % (Auto) 1.2 % (0.0-4.0); Hemoglobin 8.9 gm/dL (13.0-17.0); Lymph # (Auto) 1.2 th/mm3 (1.0-4.8); Lymph % (Auto) 22.5 % (9.0-44.0); Mean Corpuscular HGB Conc 31.8 % (32.0-36.0); Mean Corpuscular Hemoglobin 28.6 pg (27.0-34.0); Mean Corpuscular Volume 89.8 fL (80.0-100.0); Mean Platelet Volume 8.1 fL (7.0-11.0); Mono # (Auto) 0.5 th/mm3 (0.0-0.9); Mono % (Auto) 8.6 % (0.0-8.0); Neut # (Auto) 3.6 th/mm3 (1.8-7.7); Neut % (Auto) 66.9 % (16.0-70.0); Platelet Count 291 th/mm3 (150-450); Red Blood Count 3.12 mil/mm3 (4.50-5.90); Red Cell Distribution Width 17.6 % (11.6-17.2); White Blood Count 5.4 th/mm3 (4.0-11.0)
[2018-04-15 03:03] LABS: Calcium 8.8 mg/dL (8.5-10.1); Carbon Dioxide 32.7 meq/L (21.0-32.0); Potassium 3.8 meq/L (3.5-5.1)
[2018-04-15] MEDS: Pantoprazole Inj 80 MG in Sodium Chlor 0.9% Inj 100 ML IV.CONT SCH ×3 (04:32→18:26)
--- NOTE | 2018-04-15 09:23 | P.PNNP ---
Subjective Interval history: Patient is alert, on HD, and asking for food, no vomiting and no abd. pain. Physical Exam Vital signs: Vital Signs 04/14/18 12:10 04/14/18 15:46 04/14/18 20:00 Temperature 97.7 F 98 F 97.7 F Pulse Rate 68 87 68 Respiratory Rate 16 20 16 Blood Pressure 88/55 L 101/56 L 96/64 L Pulse Oximetry 97 92 L 98 04/14/18 23:34 04/15/18 00:00 04/15/18 03:18 Temperature 97.9 F 98 F Pulse Rate 73 71 81 Respiratory Rate 16 12 Blood Pressure 106/58 L 119/73 Pulse Oximetry 96 95 04/15/18 04:05 04/15/18 07:43 Temperature 98.2 F Pulse Rate 74 71 Respiratory Rate 16 Blood Pressure 121/78 Pulse Oximetry 96 Intake & Output 04/14/18 04/15/18 04/15/18 18:59 06:59 18:59 Intake Total 100 / 100 280 / 280 Balance 100 / 100 280 / 280 Weight 74.843 kg Intake: IV 100 / 100 100 / 100 Protonix Inj 80 MG In NS Inj 100 / 100 100 ML @ 10 mls/hr IV.CONT Q10H [facility] Rx#:[id number] Maxipime Inj 2,000 MG In NS Inj 100 / 100 100 ML @ 200 mls/hr IV.SIG Q8H [facility] Rx#:[id number] Oral 180 / 180 Other: # Voids 0 Date of Last Bowel Movement 04/14/18 04/14/18 # Bowel Movements 1 Weight On Admission 74.843 kg Narrative: GENERAL: AAOx3, no acute distress, adequate nutrition, functional paralysis SKIN: Warm and dry, no rashes. HEAD: Atraumatic. Normocephalic. EYES: Pupils equal, round, reactive to light. No scleral icterus. No injection or drainage. ENT: No nasal bleeding or discharge. Moist mucous membranes. Nonerythematous oropharynx. NECK: Trachea midline. No JVD. Thyroid size within normal limits. CARDIOVASCULAR: Regular rate and rhythm. No murmur, no gallops, no rubs. RESPIRATORY: Clear and equal to auscultation bilaterally. No crackles, no wheezes. No accessory muscle use. GASTROINTESTINAL: Abdomen soft, non-tender, nondistended, normal active bowel sounds. GT in place. MUSCULOSKELETAL: Contractures of upper and lower extremities, no functional use of hands, functional quadriplegia NEUROLOGICAL: Awake and alert. Deficits and contractures consistent with history of CVA and subsequent paralysis Assessment and Plan - Assessment (1) Anemia Code(s): D64.9 - Anemia, unspecified Status: Acute (2) Aspiration pneumonia of both lungs Code(s): J69.0 - Pneumonitis due to inhalation of food and vomit Status: Acute Qualifiers: Aspiration pneumonia type: unspecified Lung location: lower lobe of lung Qualified Code(s): J69.0 - Pneumonitis due to inhalation of food and vomit (3) Coffee ground emesis Code(s): K92.0 - Hematemesis Status: Acute (4) Dysphagia Code(s): R13.10 - Dysphagia, unspecified Status: Acute (5) End stage renal disease on dialysis Code(s): N18.6 - End stage renal disease; Z99.2 - Dependence on renal dialysis Status: Acute (6) Hypotension Code(s): I95.9 - Hypotension, unspecified Status: Acute (7) Diabetes Code(s): E11.9 - Type 2 diabetes mellitus without complications Status: Chronic Qualifiers: Diabetes mellitus type: type 2 Chronic kidney disease stage: on chronic dialysis - Plan Patient with End stage renal disease and CVA, History of GI bleeding in past and has Dysphagia. Patient has been on GT feeding. Admitted with Hematemesis. Seen by GI, Patient refused EGD. Now the Hgb. is stable. On antibiotics for possible aspiration pneumonia. BP is stable now, On Epogen with HD. Follow HGb. GI follow up.
[2018-04-15 12:11] LABS: Hematocrit 32.3 % (39.0-51.0); Hemoglobin 10.3 gm/dL (13.0-17.0)
[2018-04-15] MEDS: Senna/Docusate Sodium 8.6/50 MG Tablet PO SCH ×2 (14:27→22:40)
--- NOTE | 2018-04-15 18:24 | P.PNGI ---
Subjective Interval history: Patient laying in bed Seems comfortable Nonverbal <Mian Gonzalez - Last Filed: 04/15/18 18:15> Physical Exam Vital signs: Vital Signs 04/14/18 20:00 04/14/18 23:34 04/15/18 00:00 Temperature 97.7 F 97.9 F Pulse Rate 68 73 71 Respiratory Rate 16 16 Blood Pressure 96/64 L 106/58 L Pulse Oximetry 98 96 04/15/18 03:18 04/15/18 04:05 04/15/18 07:43 Temperature 98 F 98.2 F Pulse Rate 81 74 71 Respiratory Rate 12 16 Blood Pressure 119/73 121/78 Pulse Oximetry 95 96 04/15/18 15:47 Temperature 98.2 F Pulse Rate 86 Respiratory Rate 16 Blood Pressure 101/62 Pulse Oximetry 100 Intake & Output 04/14/18 04/15/18 04/15/18 18:59 06:59 18:59 Intake Total 100 / 100 280 / 280 100 / 100 Output Total 2500 / 2500 Balance 100 / 100 280 / 280 -2400 / -2400 Weight 74.843 kg Intake: IV 100 / 100 100 / 100 100 / 100 Protonix Inj 80 MG In NS Inj 100 / 100 100 ML @ 10 mls/hr IV.CONT Q10H [facility] Rx#:[id number] Maxipime Inj 2,000 MG In NS Inj 100 / 100 100 / 100 100 ML @ 200 mls/hr IV.SIG Q24H [facility] Rx#:[id number] Oral 180 / 180 Output: Hemodialysis Amount 2500 / 2500 Other: # Voids 0 Date of Last Bowel Movement 04/14/18 04/14/18 # Bowel Movements 1 Weight On Admission 74.843 kg - Constitutional no acute distress - Routine HEENT Exam Head: Present: normocephalic - Routine Neck Exam Present: supple - Routine Respiratory Exam Present: CTA bilaterally - Routine Cardiovascular Exam Present: RRR, S1, S2 - Routine Abdominal Exam Present: soft, normoactive bowel sounds. Absent: tenderness, distended - Routine Extremities Exam Present: pulses intact, normal capillary refill Comments: Patient has left-sided contractures from prior CVA - Routine Skin Exam Present: intact - Routine Neurological Exam Present: alert - Routine Psychiatric Exam Present: cooperative <Mian Gonzalez - Last Filed: 04/15/18 18:15> Vital signs: Vital Signs 04/15/18 15:47 04/15/18 19:38 04/15/18 19:42 Temperature 98.2 F 97.8 F Pulse Rate 86 79 Respiratory Rate 16 12 Blood Pressure 101/62 87/51 L Pulse Oximetry 100 98 98 04/15/18 20:00 04/16/18 00:00 04/16/18 04:00 Temperature 97.9 F 97.9 F Pulse Rate 91 H 76 80 Respiratory Rate 12 12 Blood Pressure 110/74 102/58 L Pulse Oximetry 99 99 04/16/18 07:30 04/16/18 07:55 Temperature 97.3 F L Pulse Rate 81 Respiratory Rate 18 Blood Pressure 95/53 L Pulse Oximetry 100 99 Intake & Output 04/15/18 04/16/18 04/16/18 18:59 06:59 18:59 Intake Total 100 / 100 140 / 140 Output Total 2500 / 2500 Balance -2400 / -2400 140 / 140 Weight 74.843 kg Intake: IV 100 / 100 Maxipime Inj 2,000 MG In NS Inj 100 / 100 100 ML @ 200 mls/hr IV.SIG Q24H [facility] Rx#:[id number] Oral 140 / 140 Output: Hemodialysis Amount 2500 / 2500 Other: # Voids 0 Date of Last Bowel Movement 04/15/18 04/15/18 # Bowel Movements 1 <Joann Hopkins - Last Filed: 04/16/18 12:04> Results - Labs CBC & Chem 7: 04/15/18 11:20 04/15/18 01:44 Laboratory Results - last 24 hr 04/15/18 04/15/18 04/15/18 01:44 01:44 11:20 WBC 5.4 RBC 3.12 L Hgb 8.9 L 10.3 L Hct 28.0 L 32.3 L MCV 89.8 MCH 28.6 MCHC 31.8 L RDW 17.6 H Plt Count 291 MPV 8.1 Neut % (Auto) 66.9 Lymph % (Auto) 22.5 Rogers % (Auto) 8.6 H Eos % (Auto) 1.2 Baso % (Auto) 0.8 Neut # (Auto) 3.6 Lymph # (Auto) 1.2 Rogers # (Auto) 0.5 Eos # (Auto) 0.1 Baso # (Auto) 0.0 WBC Differential . Differential Comment Auto diff final Sodium 142 Potassium 3.8 Chloride 104 Carbon Dioxide 32.7 H Anion Gap 5 BUN 27 H Creatinine 5.70 H Estimated GFR 12 L POC Glucose Random Glucose 108 H Calcium 8.8 04/15/18 12:06 WBC RBC Hgb Hct MCV MCH MCHC RDW Plt Count MPV Neut % (Auto) Lymph % (Auto) Rogers % (Auto) Eos % (Auto) Baso % (Auto) Neut # (Auto) Lymph # (Auto) Rogers # (Auto) Eos # (Auto) Baso # (Auto) WBC Differential Differential Comment Sodium Potassium Chloride Carbon Dioxide Anion Gap BUN Creatinine Estimated GFR POC Glucose 123 H Random Glucose Calcium Microbiology 04/14/18 02:15 Catheterized Urine Urine Culture - Preliminary Yeast species 04/14/18 04:10 Blood - Peripheral Aerobic Blood Culture - Preliminary No growth in 1 day 04/14/18 04:10 Blood - Peripheral Anaerobic Blood Culture - Preliminary No growth in 1 day 04/14/18 04:15 Blood - Peripheral Aerobic Blood Culture - Preliminary No growth in 1 day 04/14/18 04:15 Blood - Peripheral Anaerobic Blood Culture - Preliminary No growth in 1 day <Mian Gonzalez - Last Filed: 04/15/18 18:15> - Labs CBC & Chem 7: 04/15/18 20:32 04/15/18 01:44 Laboratory Results - last 24 hr 04/15/18 04/15/18 04/15/18 11:20 12:06 20:32 Hgb 10.3 L 11.1 L Hct 32.3 L 35.4 L POC Glucose 123 H 04/16/18 03:59 Hgb Hct POC Glucose 92 Microbiology 04/14/18 04:10 Blood - Peripheral Aerobic Blood Culture - Preliminary No growth in 2 days 04/14/18 04:10 Blood - Peripheral Anaerobic Blood Culture - Preliminary No growth in 2 days 04/14/18 04:15 Blood - Peripheral Aerobic Blood Culture - Preliminary No growth in 2 days 04/14/18 04:15 Blood - Peripheral Anaerobic Blood Culture - Preliminary No growth in 2 days 04/14/18 02:15 Catheterized Urine Urine Culture - Preliminary Yeast species <Joann Hopkins - Last Filed: 04/16/18 12:04> Assessment and Plan (1) Anemia Status: Acute Code(s): D64.9 - Anemia, unspecified (2) Coffee ground emesis Status: Acute Code(s): K92.0 - Hematemesis - Plan Chart reviewed for acquisition of information to compile HPI as patient noncontributory. This patient is a 62-year-old male with past medical history of chronic renal disease on dialysis, insulin-dependent diabetes, hypertension, CVA with paralysis. Patient also has medical history of esophagitis. Surgical history includes cardiac cath and PEG tube placement via IR. Patient presented to [facility] emergency room from long term [facility] with report of chest wall burning pain, one reported episode of hemoptysis overnight. Patient has history of coffee-ground emesis. Last EGD performed revealed class B esophagitis with normal gastric and duodenal mucosa. Colonoscopy performed 01/27/2018 without an acute abnormality noted. Hgb 10.5 on admission, 8.8 recheck this am. Gtube present with dark brown gastric content. Pt endorses generalized abd pain with mild nausea. Our service has been consulted to evaluate for GIB. Of, note, pt has not been on PPI as home med. No noted NSAIDS listed. No blood thinners noted. GIB Coffee ground emesis Patient sent from long term [facility] with report of one episode of hemoptysis. History of coffee-ground emesis. Last EGD 01/25/2018 revealed a esophagitis with normal gastric and duodenal mucosa. Colonoscopy performed without acute abnormality noted. Hemoglobin 8.8 hematocrit 27.5 INR 1.0 History of chronic renal disease-BUN 21 creatinine 4.20 on hemodialysis 04/15/2018 Assessment Upper GI bleed Coffee-ground emesis Previous CVA Chronic renal failure on hemodialysis Hemoglobin 10.3 hematocrit 32.3 platelet 291 WBC 5.4 INR 1 BUN 27 creatinine 5.7 GFR of 12 Normal liver enzyme Alkaline phosphatase elevated at 283 Plan -Cardiac renal diabetic diet -for EGD in the future if patient consents -PPI -Avoid NSAIDs -Avoid anticoagulants -Monitor labs -Monitor for active bleeding -Supportive care -Further recommendations to follow This patient has been seen by myself and Dr. Hopkins and this note is written on his behalf - Attending Attestation Dr Hopkins <Mian Gonzalez - Last Filed: 02/16/19 18:15> (1) Anemia Status: Acute Code(s): D64.9 - Anemia, unspecified (2) Coffee ground emesis Status: Acute Code(s): K92.0 - Hematemesis - Plan Seen and examined with NETWORK STRATEGIST, egd if patient agrees. Monitor labs. <Joann Hopkins - Last Filed: 04/16/18 12:04>
[2018-04-15 21:03] LABS: Hematocrit 35.4 % (39.0-51.0); Hemoglobin 11.1 gm/dL (13.0-17.0)
[2018-04-16] MEDS: Pantoprazole Inj 80 MG in Sodium Chlor 0.9% Inj 100 ML IV.CONT SCH ×3 (00:22→12:13)
--- NOTE | 2018-04-16 08:19 | P.PNIM ---
Subjective Interval history: Patient was in Dialysis in the morning. On returning he requested a PO diet, but I explained a swallow eval was needed for safety. He had blood in his stool in the afternoon. Physical Exam Vital signs: Vital Signs 04/15/18 11:30 04/15/18 15:47 04/15/18 19:38 Temperature 98.2 F 97.8 F Pulse Rate 76 86 79 Respiratory Rate 16 12 Blood Pressure 101/62 87/51 L Pulse Oximetry 100 98 04/15/18 19:42 04/15/18 20:00 04/16/18 00:00 Temperature 97.9 F Pulse Rate 91 H 76 Respiratory Rate 12 Blood Pressure 110/74 Pulse Oximetry 98 99 04/16/18 04:00 04/16/18 07:55 Temperature 97.9 F Pulse Rate 80 Respiratory Rate 12 Blood Pressure 102/58 L Pulse Oximetry 99 99 Intake & Output 04/15/18 04/16/18 04/16/18 18:59 06:59 18:59 Intake Total 100 / 100 140 / 140 Output Total 2500 / 2500 Balance -2400 / -2400 140 / 140 Weight 74.843 kg Intake: IV 100 / 100 Maxipime Inj 2,000 MG In NS Inj 100 / 100 100 ML @ 200 mls/hr IV.SIG Q24H [facility] Rx#:[id number] Oral 140 / 140 Output: Hemodialysis Amount 2500 / 2500 Other: # Voids 0 Date of Last Bowel Movement 04/15/18 04/15/18 # Bowel Movements 1 Narrative: GENERAL: AAOx3, no acute distress, adequate nutrition, functional paralysis SKIN: Warm and dry, no rashes. HEAD: Atraumatic. Normocephalic. EYES: Pupils equal, round, reactive to light. No scleral icterus. No injection or drainage. ENT: No nasal bleeding or discharge. Moist mucous membranes. Nonerythematous oropharynx. NECK: Trachea midline. No JVD. Thyroid size within normal limits. CARDIOVASCULAR: Regular rate and rhythm. No murmur, no gallops, no rubs. RESPIRATORY: Clear and equal to auscultation bilaterally. No crackles, no wheezes. No accessory muscle use. GASTROINTESTINAL: Abdomen soft, non-tender, nondistended, normal active bowel sounds. Hepatic and splenic margins not palpable. MUSCULOSKELETAL: Contractures of upper and lower extremities, no functional use of hands, functional quadriplegia NEUROLOGICAL: Awake and alert. Deficits and contractures consistent with history of CVA and subsequent paralysis PSYCHIATRIC: Appropriate mood and affect; insight and judgment normal. Results Labs CBC & Chem 7: 04/15/18 20:32 04/15/18 01:44 Labs: Microbiology 04/14/18 02:15 Catheterized Urine Urine Culture - Preliminary Yeast species 04/14/18 04:10 Blood - Peripheral Aerobic Blood Culture - Preliminary No growth in 1 day 04/14/18 04:10 Blood - Peripheral Anaerobic Blood Culture - Preliminary No growth in 1 day 04/14/18 04:15 Blood - Peripheral Aerobic Blood Culture - Preliminary No growth in 1 day 04/14/18 04:15 Blood - Peripheral Anaerobic Blood Culture - Preliminary No growth in 1 day Assessment and Plan (1) Anemia: Code(s): D64.9 - Anemia, unspecified Status: Acute (2) Aspiration pneumonia of both lungs: Code(s): J69.0 - Pneumonitis due to inhalation of food and vomit Status: Acute (3) Coffee ground emesis: Code(s): K92.0 - Hematemesis Status: Acute (4) Dysphagia: Code(s): R13.10 - Dysphagia, unspecified Status: Acute (5) End stage renal disease on dialysis: Code(s): N18.6 - End stage renal disease; Z99.2 - Dependence on renal dialysis Status: Acute (6) Hypotension: Code(s): I95.9 - Hypotension, unspecified Status: Acute (7) Diabetes: Code(s): E11.9 - Type 2 diabetes mellitus without complications Status: Chronic Plan Upper GI bleed w/ anemia Patient presented to the ER overnight with chest pain and bright red blood in emesis Patient was seen 4 months ago for the same thing, esophagitis present at that time, normal gastric mucosa EGD was scheduled for this morning, patient refused Bloody stool 04/15/18 Hgb remains stable despite bleeding Appreciate gastroenterology consult h/o PEG tube No issues 4 months ago on EGD, however this should be considered if bleeding persists ESRD w/ dialysis Nephrology consult to arrange for ongoing dialysis treatments Type 2 diabetes Accu-Cheks with sliding scale insulin coverage Diabetic diet when p.o. resumed Functional quadriplegia, CVA Patient has contractures and deficits consistent with previous CVA He will need long-term PT, if he remains hospitalized we will consult PT Swallow eval ordered h/o CAD Asymptomatic currently, monitor for any further chest pain h/o schizophrenia Appears stable now, appropriate mood, fair insight, alert and oriented x3 DVT prophylaxis SCDs, chemoprophylaxis held due to current upper GI bleed Progress Note: Quality VTE Deep Vein Thrombosis/Pulmonary Embolism Present on Admission: No _ (1) Anemia Qualifiers: Anemia type: Iron deficiency anemia type: Vitamin B12 deficiency anemia type: Folate deficiency anemia type: Bone marrow failure anemia type: Hemolytic anemia type: Other causes of anemia: Chronic kidney disease stage : (2) Aspiration pneumonia of both lungs Qualifiers: Aspiration pneumonia type: unspecified Lung location: lower lobe of lung Qualified Code(s): J69.0 - Pneumonitis due to inhalation of food and vomit (3) Dysphagia Qualifiers: Dysphagia type: (4) Hypotension Qualifiers: Hypotension type: Trimester: (5) Diabetes Qualifiers: Diabetes mellitus type: type 2 Diabetes mellitus prison insulin use: Diabetes mellitus complication status: Diabetes mellitus complication detail: Diabetic retinopathy severity: Proliferative retinopathy type: Diabetes mellitus macular edema: Laterality: Chronic kidney disease stage: on chronic dialysis
--- NOTE | 2018-04-16 11:21 | P.PNGI ---
Subjective Interval history: Patient is awake answering simple question, chief complaint is hunger Working with speech therapy this a.m. and is cleared for pured diet, thickened liquids Spoke with patient and is agreeable for EGD in a.m. No current nausea vomiting or abdominal pain <Rosetta Mathew - Last Filed: 04/16/18 11:13> Physical Exam Vital signs: Vital Signs 04/15/18 11:30 04/15/18 15:47 04/15/18 19:38 Temperature 98.2 F 97.8 F Pulse Rate 76 86 79 Respiratory Rate 16 12 Blood Pressure 101/62 87/51 L Pulse Oximetry 100 98 04/15/18 19:42 04/15/18 20:00 04/16/18 00:00 Temperature 97.9 F Pulse Rate 91 H 76 Respiratory Rate 12 Blood Pressure 110/74 Pulse Oximetry 98 99 04/16/18 04:00 04/16/18 07:30 04/16/18 07:55 Temperature 97.9 F 97.3 F L Pulse Rate 80 81 Respiratory Rate 12 18 Blood Pressure 102/58 L 95/53 L Pulse Oximetry 99 100 99 Intake & Output 04/15/18 04/16/18 04/16/18 18:59 06:59 18:59 Intake Total 100 / 100 140 / 140 Output Total 2500 / 2500 Balance -2400 / -2400 140 / 140 Weight 74.843 kg Intake: IV 100 / 100 Maxipime Inj 2,000 MG In NS Inj 100 / 100 100 ML @ 200 mls/hr IV.SIG Q24H [facility] Rx#:[id number] Oral 140 / 140 Output: Hemodialysis Amount 2500 / 2500 Other: # Voids 0 Date of Last Bowel Movement 04/15/18 04/15/18 # Bowel Movements 1 - Constitutional mild distress, obese, chronically ill appearing, disheveled - Routine HEENT Exam Head: Present: normocephalic ENT: Present: mucous membranes moist - Routine Neck Exam Present: supple - Routine Respiratory Exam Present: accessory muscle use - Routine Cardiovascular Exam Present: S1, S2 - Routine Abdominal Exam Present: soft, normoactive bowel sounds, distended (Mild) - Routine Skin Exam Present: dry, pallor - Routine Neurological Exam Present: alert (Answer simple question) <Rosetta Mathew - Last Filed: 04/16/18 11:13> Vital signs: Vital Signs 04/15/18 15:47 04/15/18 19:38 04/15/18 19:42 Temperature 98.2 F 97.8 F Pulse Rate 86 79 Respiratory Rate 16 12 Blood Pressure 101/62 87/51 L Pulse Oximetry 100 98 98 04/15/18 20:00 04/16/18 00:00 04/16/18 04:00 Temperature 97.9 F 97.9 F Pulse Rate 91 H 76 80 Respiratory Rate 12 12 Blood Pressure 110/74 102/58 L Pulse Oximetry 99 99 04/16/18 07:30 04/16/18 07:55 Temperature 97.3 F L Pulse Rate 81 Respiratory Rate 18 Blood Pressure 95/53 L Pulse Oximetry 100 99 Intake & Output 04/15/18 04/16/18 04/16/18 18:59 06:59 18:59 Intake Total 100 / 100 140 / 140 Output Total 2500 / 2500 Balance -2400 / -2400 140 / 140 Weight 74.843 kg Intake: IV 100 / 100 Maxipime Inj 2,000 MG In NS Inj 100 / 100 100 ML @ 200 mls/hr IV.SIG Q24H [facility] Rx#:[id number] Oral 140 / 140 Output: Hemodialysis Amount 2500 / 2500 Other: # Voids 0 Date of Last Bowel Movement 04/15/18 04/15/18 # Bowel Movements 1 <Joann Hopkins - Last Filed: 04/16/18 12:14> Results - Labs CBC & Chem 7: 04/15/18 20:32 04/15/18 01:44 Laboratory Results - last 24 hr 04/15/18 04/15/18 04/15/18 11:20 12:06 20:32 Hgb 10.3 L 11.1 L Hct 32.3 L 35.4 L POC Glucose 123 H 04/16/18 03:59 Hgb Hct POC Glucose 92 Microbiology 04/14/18 04:10 Blood - Peripheral Aerobic Blood Culture - Preliminary No growth in 2 days 04/14/18 04:10 Blood - Peripheral Anaerobic Blood Culture - Preliminary No growth in 2 days 04/14/18 04:15 Blood - Peripheral Aerobic Blood Culture - Preliminary No growth in 2 days 04/14/18 04:15 Blood - Peripheral Anaerobic Blood Culture - Preliminary No growth in 2 days 04/14/18 02:15 Catheterized Urine Urine Culture - Preliminary Yeast species <Rosetta Mathew - Last Filed: 04/16/18 11:13> - Labs CBC & Chem 7: 04/15/18 20:32 04/15/18 01:44 Laboratory Results - last 24 hr 04/15/18 04/16/18 20:32 03:59 Hgb 11.1 L Hct 35.4 L POC Glucose 92 Microbiology 04/14/18 04:10 Blood - Peripheral Aerobic Blood Culture - Preliminary No growth in 2 days 04/14/18 04:10 Blood - Peripheral Anaerobic Blood Culture - Preliminary No growth in 2 days 04/14/18 04:15 Blood - Peripheral Aerobic Blood Culture - Preliminary No growth in 2 days 04/14/18 04:15 Blood - Peripheral Anaerobic Blood Culture - Preliminary No growth in 2 days 04/14/18 02:15 Catheterized Urine Urine Culture - Preliminary Yeast species <Joann Hopkins - Last Filed: 04/16/18 12:14> Assessment and Plan (1) Anemia Status: Acute Code(s): D64.9 - Anemia, unspecified (2) Coffee ground emesis Status: Acute Code(s): K92.0 - Hematemesis - Plan Chart reviewed for acquisition of information to compile HPI as patient noncontributory. This patient is a 62-year-old male with past medical history of chronic renal disease on dialysis, insulin-dependent diabetes, hypertension, CVA with paralysis. Patient also has medical history of esophagitis. Surgical history includes cardiac cath and PEG tube placement via IR. Patient presented to [facility] emergency room from [facility] with report of chest wall burning pain, one reported episode of hemoptysis overnight. Patient has history of coffee-ground emesis. Last EGD performed revealed class B esophagitis with normal gastric and duodenal mucosa. Colonoscopy performed 01/27/2018 without an acute abnormality noted. Hgb 10.5 on admission, 8.8 recheck this am. Gtube present with dark brown gastric content. Pt endorses generalized abd pain with mild nausea. Our service has been consulted to evaluate for GIB. Of, note, pt has not been on PPI as home med. No noted NSAIDS listed. No blood thinners noted. GIB Coffee ground emesis Patient sent from [facility] with report of one episode of hemoptysis. History of coffee-ground emesis. Last EGD 01/25/2018 revealed a esophagitis with normal gastric and duodenal mucosa. Colonoscopy performed without acute abnormality noted. Hemoglobin 8.8 hematocrit 27.5 INR 1.0 History of chronic renal disease-BUN 21 creatinine 4.20 on hemodialysis 04/15/2018 Assessment Upper GI bleed Coffee-ground emesis Previous CVA Chronic renal failure on hemodialysis Hemoglobin 10.3 hematocrit 32.3 platelet 291 WBC 5.4 INR 1 BUN 27 creatinine 5.7 GFR of 12 Normal liver enzyme Alkaline phosphatase elevated at 283 04/16/2018 patient is resting in the bed, post speech eval, and cleared for pured foods and thickened liquids. Patient is hungry and is agreeable to EGD in the a.m. if he can eat today. No nausea no vomiting, no abdominal pain no obvious GI bleed noted labs reviewed which show hemoglobin now 11.1 PT/INR 1, alkaline phosphatase 283 Melena stools this past a.m. 2 large noted per nurse, denies any this a.m. Plan Diet follow speech therapy advise pured with thickened liquids PPI Monitor labs and transfuse if needed Intake and output monitor melena stools and number Consent for EGD in a.m., n.p.o. at midnight, Further recommendations to follow Patient was seen per myself and Dr. Hopkins, note was written on his back <Rosetta Mathew - Last Filed: 04/16/18 11:13> (1) Anemia Status: Acute Code(s): D64.9 - Anemia, unspecified (2) Coffee ground emesis Status: Acute Code(s): K92.0 - Hematemesis - Plan Seen and examined with [employer], no active bleeding but agreeable to egd for tomorrow. NPO including TF after midnight. Monitor labs. <Joann Hopkins - Last Filed: 04/16/18 12:14>
--- NOTE | 2018-04-16 12:12 | P.PNIM ---
Subjective Interval history: Patient qualified for pured diet with nectar thickened liquids after swallow evaluation by speech therapy. He is in a good mood and has agreed to undergo a scope tomorrow in order to investigate for his bleeding which has been recurrent. His hemoglobin remained stable and he has no other complaints. Physical Exam Vital signs: Vital Signs 04/15/18 15:47 04/15/18 19:38 04/15/18 19:42 Temperature 98.2 F 97.8 F Pulse Rate 86 79 Respiratory Rate 16 12 Blood Pressure 101/62 87/51 L Pulse Oximetry 100 98 98 04/15/18 20:00 04/16/18 00:00 04/16/18 04:00 Temperature 97.9 F 97.9 F Pulse Rate 91 H 76 80 Respiratory Rate 12 12 Blood Pressure 110/74 102/58 L Pulse Oximetry 99 99 04/16/18 07:30 04/16/18 07:55 Temperature 97.3 F L Pulse Rate 81 Respiratory Rate 18 Blood Pressure 95/53 L Pulse Oximetry 100 99 Intake & Output 04/15/18 04/16/18 04/16/18 18:59 06:59 18:59 Intake Total 100 / 100 140 / 140 Output Total 2500 / 2500 Balance -2400 / -2400 140 / 140 Weight 74.843 kg Intake: IV 100 / 100 Maxipime Inj 2,000 MG In NS Inj 100 / 100 100 ML @ 200 mls/hr IV.SIG Q24H [facility] Rx#:[id number] Oral 140 / 140 Output: Hemodialysis Amount 2500 / 2500 Other: # Voids 0 Date of Last Bowel Movement 04/15/18 04/15/18 # Bowel Movements 1 Narrative: GENERAL: AAOx3, no acute distress, adequate nutrition, functional paralysis SKIN: Warm and dry, no rashes. HEAD: Atraumatic. Normocephalic. EYES: Pupils equal, round, reactive to light. No scleral icterus. No injection or drainage. ENT: No nasal bleeding or discharge. Moist mucous membranes. Nonerythematous oropharynx. NECK: Trachea midline. No JVD. Thyroid size within normal limits. CARDIOVASCULAR: Regular rate and rhythm. No murmur, no gallops, no rubs. RESPIRATORY: Clear and equal to auscultation bilaterally. No crackles, no wheezes. No accessory muscle use. GASTROINTESTINAL: Abdomen soft, non-tender, nondistended, normal active bowel sounds. Hepatic and splenic margins not palpable. MUSCULOSKELETAL: Contractures of upper and lower extremities, no functional use of hands, functional quadriplegia NEUROLOGICAL: Awake and alert. Deficits and contractures consistent with history of CVA and subsequent paralysis PSYCHIATRIC: Appropriate mood and affect; insight and judgment normal. Results Labs CBC & Chem 7: 04/15/18 20:32 04/15/18 01:44 Labs: Microbiology 04/14/18 04:10 Blood - Peripheral Aerobic Blood Culture - Preliminary No growth in 2 days 04/14/18 04:10 Blood - Peripheral Anaerobic Blood Culture - Preliminary No growth in 2 days 04/14/18 04:15 Blood - Peripheral Aerobic Blood Culture - Preliminary No growth in 2 days 04/14/18 04:15 Blood - Peripheral Anaerobic Blood Culture - Preliminary No growth in 2 days 04/14/18 02:15 Catheterized Urine Urine Culture - Preliminary Yeast species Assessment and Plan (1) Anemia: Code(s): D64.9 - Anemia, unspecified Status: Acute (2) Aspiration pneumonia of both lungs: Code(s): J69.0 - Pneumonitis due to inhalation of food and vomit Status: Acute (3) Coffee ground emesis: Code(s): K92.0 - Hematemesis Status: Acute (4) Dysphagia: Code(s): R13.10 - Dysphagia, unspecified Status: Acute (5) End stage renal disease on dialysis: Code(s): N18.6 - End stage renal disease; Z99.2 - Dependence on renal dialysis Status: Acute (6) Hypotension: Code(s): I95.9 - Hypotension, unspecified Status: Acute (7) Diabetes: Code(s): E11.9 - Type 2 diabetes mellitus without complications Status: Chronic Plan Upper GI bleed w/ anemia Patient presented to the ER overnight with chest pain and bright red blood in emesis Patient was seen 4 months ago for the same thing, esophagitis present at that time, normal gastric mucosa EGD was scheduled for this morning, patient refused Bloody stool 04/15/18 Hgb remains stable despite bleeding EGD planned for morning of 04/17/2018 Appreciate gastroenterology consult h/o PEG tube No issues 4 months ago on EGD, however this should be considered if bleeding persists These feedings should be resumed following EGD, patient may however be discharged at that point and resume outpatient feeds ESRD w/ dialysis Nephrology consult to arrange for ongoing dialysis treatments Type 2 diabetes Accu-Cheks with sliding scale insulin coverage Diabetic PEG tube and pured feeds, honey thickened liquid based on speech therapy eval Okay to have "regular" diet for now due to low intake and risk of hypoglycemia Change back to diabetic diet following EGD Functional quadriplegia, CVA Patient has contractures and deficits consistent with previous CVA He will need long-term PT, if he remains hospitalized we will consult PT h/o CAD Asymptomatic currently, monitor for any further chest pain h/o schizophrenia Appears stable now, appropriate mood, fair insight, alert and oriented x3 DVT prophylaxis SCDs, chemoprophylaxis held due to current upper GI bleed Progress Note: Quality VTE Deep Vein Thrombosis/Pulmonary Embolism Present on Admission: No _ (1) Anemia Qualifiers: Anemia type: Iron deficiency anemia type: Vitamin B12 deficiency anemia type: Folate deficiency anemia type: Bone marrow failure anemia type: Hemolytic anemia type: Other causes of anemia: Chronic kidney disease stage : (2) Aspiration pneumonia of both lungs Qualifiers: Aspiration pneumonia type: unspecified Lung location: lower lobe of lung Qualified Code(s): J69.0 - Pneumonitis due to inhalation of food and vomit (3) Dysphagia Qualifiers: Dysphagia type: (4) Hypotension Qualifiers: Hypotension type: Trimester: (5) Diabetes Qualifiers: Diabetes mellitus type: type 2 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
[2018-04-16] MEDS: Senna/Docusate Sodium 8.6/50 MG Tablet PO SCH (12:14)
[2018-04-16 12:39] LABS: Hematocrit 33.3 % (39.0-51.0); Hemoglobin 10.8 gm/dL (13.0-17.0); Mean Corpuscular HGB Conc 32.4 % (32.0-36.0); Mean Corpuscular Hemoglobin 29.3 pg (27.0-34.0); Mean Corpuscular Volume 90.4 fL (80.0-100.0); Mean Platelet Volume 8.4 fL (7.0-11.0); Platelet Count 300 th/mm3 (150-450); Red Blood Count 3.68 mil/mm3 (4.50-5.90); Red Cell Distribution Width 18.4 % (11.6-17.2); White Blood Count 6.4 th/mm3 (4.0-11.0)
[2018-04-16 13:03] LABS: Calcium 9.4 mg/dL (8.5-10.1); Carbon Dioxide 29.3 meq/L (21.0-32.0); Potassium 4.9 meq/L (3.5-5.1)
[2018-04-16] MEDS ORDERED: Sodium Chlor 0.9% Inj 500 ML IV.SIG SCH (13:57)
--- NOTE | 2018-04-16 21:07 | P.PNNP ---
Subjective Interval history: Patient seen in late afternoon, alert, no SOB, no abd. pain. Physical Exam Vital signs: Vital Signs 04/16/18 00:00 04/16/18 04:00 04/16/18 07:30 Temperature 97.9 F 97.9 F 97.3 F L Pulse Rate 76 80 81 Respiratory Rate 12 12 18 Blood Pressure 110/74 102/58 L 95/53 L Pulse Oximetry 99 99 100 04/16/18 07:55 04/16/18 12:05 04/16/18 15:00 Temperature 97.5 F L Pulse Rate 80 85 Respiratory Rate 18 Blood Pressure 92/56 L Pulse Oximetry 99 98 04/16/18 15:15 04/16/18 15:49 04/16/18 15:50 Temperature 97.5 F L Pulse Rate 82 79 80 Respiratory Rate 18 Blood Pressure 108/56 L Pulse Oximetry 96 04/16/18 20:00 Temperature 96.1 F L Pulse Rate 83 Respiratory Rate 22 Blood Pressure 133/72 Pulse Oximetry 98 Intake & Output 04/16/18 04/16/18 04/17/18 06:59 18:59 06:59 Intake Total 140 / 140 600 / 600 Balance 140 / 140 600 / 600 Weight 74.843 kg Intake: IV 600 / 600 Protonix Inj 80 MG In NS Inj 100 / 100 100 ML @ 10 mls/hr IV.CONT Q10H [facility] Rx#:[id number] NS Inj 500 ML @ 200 mls/hr IV. 500 / 500 SIG BOLUS [facility] Rx#:[id number] Oral 140 / 140 Other: # Voids 0 Date of Last Bowel Movement 04/15/18 04/16/18 # Bowel Movements 1 # Incontinent Bowel Movements 1 Narrative: GENERAL: AAOx3, no acute distress, adequate nutrition, functional paralysis SKIN: Warm and dry, no rashes. HEAD: Atraumatic. Normocephalic. EYES: Pupils equal, round, reactive to light. No scleral icterus. No injection or drainage. ENT: No nasal bleeding or discharge. Moist mucous membranes. Nonerythematous oropharynx. NECK: Trachea midline. No JVD. Thyroid size within normal limits. CARDIOVASCULAR: Regular rate and rhythm. No murmur, no gallops, no rubs. RESPIRATORY: Clear and equal to auscultation bilaterally. No crackles, no wheezes. No accessory muscle use. GASTROINTESTINAL: Abdomen soft, non-tender, nondistended, normal active bowel sounds. GT in place. MUSCULOSKELETAL: Contractures of upper and lower extremities, no functional use of hands, functional quadriplegia NEUROLOGICAL: Awake and alert. Deficits and contractures consistent with history of CVA and subsequent paralysis Assessment and Plan - Assessment (1) Anemia Code(s): D64.9 - Anemia, unspecified Status: Acute (2) Aspiration pneumonia of both lungs Code(s): J69.0 - Pneumonitis due to inhalation of food and vomit Status: Acute Qualifiers: Aspiration pneumonia type: unspecified Lung location: lower lobe of lung Qualified Code(s): J69.0 - Pneumonitis due to inhalation of food and vomit (3) Coffee ground emesis Code(s): K92.0 - Hematemesis Status: Acute (4) Dysphagia Code(s): R13.10 - Dysphagia, unspecified Status: Acute (5) End stage renal disease on dialysis Code(s): N18.6 - End stage renal disease; Z99.2 - Dependence on renal dialysis Status: Acute (6) Hypotension Code(s): I95.9 - Hypotension, unspecified Status: Acute (7) Diabetes Code(s): E11.9 - Type 2 diabetes mellitus without complications Status: Chronic Qualifiers: Diabetes mellitus type: type 2 Chronic kidney disease stage: on chronic dialysis - Plan Patient with End stage renal disease and CVA, History of GI bleeding in past and has Dysphagia. Patient has been on GT feeding. Admitted with Hematemesis. Seen by GI, Patient refused EGD. Now the Hgb. is stable. On antibiotics for possible aspiration pneumonia. BP is stable now, On Epogen with HD. Follow HGb. Started on Puree diet. HD to continue TTS.
[2018-04-17] MEDS: Senna/Docusate Sodium 8.6/50 MG Tablet PO SCH ×3 (00:27→21:25)
[2018-04-17] MEDS: Pantoprazole Inj 80 MG in Sodium Chlor 0.9% Inj 100 ML IV.CONT SCH ×4 (00:41→23:54)
[2018-04-17] MEDS ORDERED: Ketamine Inj 50 MG/5 ML Syringe IV.PUSH ONE (07:47)
--- NOTE | 2018-04-17 08:48 | P.PNNP ---
Subjective Interval history: Patient is less verbal than normal. No shortness of breath, nausea, or vomiting. Plan for EGD today. <Khalida Laura - Last Filed: 04/17/18 08:42> Physical Exam Vital signs: Vital Signs 04/16/18 12:05 04/16/18 15:00 04/16/18 15:15 Temperature 97.5 F L 97.5 F L Pulse Rate 80 85 82 Respiratory Rate 18 18 Blood Pressure 92/56 L 108/56 L Pulse Oximetry 98 96 04/16/18 15:49 04/16/18 15:50 04/16/18 20:00 Temperature 96.1 F L Pulse Rate 79 80 81 Respiratory Rate 22 Blood Pressure 133/72 Pulse Oximetry 98 04/17/18 00:00 04/17/18 03:58 04/17/18 07:45 Temperature 98.0 F 97.8 F 97.9 F Pulse Rate 83 81 108 H Respiratory Rate 18 18 16 Blood Pressure 102/69 105/65 98/58 L Pulse Oximetry 98 92 L 92 L Intake & Output 04/16/18 04/17/18 04/17/18 18:59 06:59 18:59 Intake Total 600 / 600 560 / 560 Balance 600 / 600 560 / 560 Weight 74.843 kg Intake: IV 600 / 600 200 / 200 Protonix Inj 80 MG In NS Inj 100 / 100 100 / 100 100 ML @ 10 mls/hr IV.CONT Q10H [facility] Rx#:[id number] Maxipime Inj 2,000 MG In NS Inj 100 / 100 100 ML @ 200 mls/hr IV.SIG Q24H [facility] Rx#:[id number] NS Inj 500 ML @ 200 mls/hr IV. 500 / 500 SIG BOLUS [facility] Rx#:[id number] Oral 360 / 360 Other: # Voids 0 Date of Last Bowel Movement 04/16/18 04/16/18 # Bowel Movements 2 # Incontinent Bowel Movements 1 1 Narrative: GENERAL: Alert and no obvious distress SKIN: Warm and dry, no rash NECK: Trachea midline. No JVD. CARDIOVASCULAR: Regular rate and rhythm. No murmur, no gallops, no rubs. RESPIRATORY: Clear and equal to auscultation bilaterally. No crackles, no wheezes. No accessory muscle use. GASTROINTESTINAL: Abdomen soft, non-tender, nondistended, normal active bowel sounds. GT in place. MUSCULOSKELETAL: Contractures of upper and lower extremities, no functional use of hands, functional quadriplegia NEUROLOGICAL: Awake and alert. Deficits and contractures consistent with history of CVA and subsequent paralysis <Khalida Laura - Last Filed: 04/17/18 08:42> Vital signs: Vital Signs 04/16/18 20:00 04/17/18 00:00 04/17/18 03:58 Temperature 96.1 F L 98.0 F 97.8 F Pulse Rate 81 83 81 Respiratory Rate 22 18 18 Blood Pressure 133/72 102/69 105/65 Pulse Oximetry 98 98 92 L 04/17/18 07:45 04/17/18 08:45 04/17/18 10:15 Temperature 97.9 F Pulse Rate 108 H 78 87 Respiratory Rate 16 Blood Pressure 98/58 L Pulse Oximetry 92 L 04/17/18 11:45 04/17/18 12:15 Temperature 98.1 F Pulse Rate 79 83 Respiratory Rate 16 Blood Pressure 106/65 Pulse Oximetry 98 Intake & Output 04/16/18 04/17/18 04/17/18 18:59 06:59 18:59 Intake Total 600 / 600 560 / 560 100 / 100 Balance 600 / 600 560 / 560 100 / 100 Weight 74.843 kg Intake: IV 600 / 600 200 / 200 100 / 100 Protonix Inj 80 MG In NS Inj 100 / 100 100 / 100 100 / 100 100 ML @ 10 mls/hr IV.CONT Q10H [facility] Rx#:[id number] Maxipime Inj 2,000 MG In NS Inj 100 / 100 100 ML @ 200 mls/hr IV.SIG Q24H [facility] Rx#:[id number] NS Inj 500 ML @ 200 mls/hr IV. 500 / 500 SIG BOLUS [facility] Rx#:[id number] Oral 360 / 360 Other: # Voids 0 Date of Last Bowel Movement 04/16/18 04/16/18 # Bowel Movements 2 # Incontinent Bowel Movements 1 1 <Lizeth Bell - Last Filed: 04/17/18 18:45> Assessment and Plan - Assessment (1) Anemia Code(s): D64.9 - Anemia, unspecified Status: Acute (2) Aspiration pneumonia of both lungs Code(s): J69.0 - Pneumonitis due to inhalation of food and vomit Status: Acute Qualifiers: Aspiration pneumonia type: unspecified Lung location: lower lobe of lung Qualified Code(s): J69.0 - Pneumonitis due to inhalation of food and vomit (3) Coffee ground emesis Code(s): K92.0 - Hematemesis Status: Acute (4) Dysphagia Code(s): R13.10 - Dysphagia, unspecified Status: Acute (5) End stage renal disease on dialysis Code(s): N18.6 - End stage renal disease; Z99.2 - Dependence on renal dialysis Status: Acute (6) Hypotension Code(s): I95.9 - Hypotension, unspecified Status: Acute (7) Diabetes Code(s): E11.9 - Type 2 diabetes mellitus without complications Status: Chronic Qualifiers: Diabetes mellitus type: type 2 Chronic kidney disease stage: on chronic dialysis - Plan Patient with End stage renal disease and CVA, History of GI bleeding in past and has Dysphagia. Patient has been on GT feeding. Admitted with Hematemesis. Plan for EGD today to find source of hematemesis Now the Hgb. is stable at 10.8 On antibiotics for possible aspiration pneumonia. On Epogen with HD. Passed swallow evaluation and was started on Pureed diet. HD to continue TTS. HD planned for tomorrow. <Khalida Laura - Last Filed: 04/17/18 08:42> - Assessment (1) Anemia Code(s): D64.9 - Anemia, unspecified Status: Acute (2) Aspiration pneumonia of both lungs Code(s): J69.0 - Pneumonitis due to inhalation of food and vomit Status: Acute Qualifiers: Aspiration pneumonia type: unspecified Lung location: lower lobe of lung Qualified Code(s): J69.0 - Pneumonitis due to inhalation of food and vomit (3) Coffee ground emesis Code(s): K92.0 - Hematemesis Status: Acute (4) Dysphagia Code(s): R13.10 - Dysphagia, unspecified Status: Acute (5) End stage renal disease on dialysis Code(s): N18.6 - End stage renal disease; Z99.2 - Dependence on renal dialysis Status: Acute (6) Hypotension Code(s): I95.9 - Hypotension, unspecified Status: Acute (7) Diabetes Code(s): E11.9 - Type 2 diabetes mellitus without complications Status: Chronic Qualifiers: Diabetes mellitus type: type 2 Chronic kidney disease stage: on chronic dialysis - Plan Patient seen and examined, agree with above. For EGD, HD will be in AM. Follow the Hgb. <Lizeth Bell - Last Filed: 04/17/18 18:45>
--- NOTE | 2018-04-17 11:18 | P.PNIM ---
Subjective Interval history: Follow-up visit GI bleed. Patient seen and examined while resting in bed. Does not speak much except to say he is doing good. No distress noted. No acute events overnight. Patient scheduled to undergo EGD today. Physical Exam Vital signs: Vital Signs 04/16/18 12:05 04/16/18 15:00 04/16/18 15:15 Temperature 97.5 F L 97.5 F L Pulse Rate 80 85 82 Respiratory Rate 18 18 Blood Pressure 92/56 L 108/56 L Pulse Oximetry 98 96 04/16/18 15:49 04/16/18 15:50 04/16/18 20:00 Temperature 96.1 F L Pulse Rate 79 80 81 Respiratory Rate 22 Blood Pressure 133/72 Pulse Oximetry 98 04/17/18 00:00 04/17/18 03:58 04/17/18 07:45 Temperature 98.0 F 97.8 F 97.9 F Pulse Rate 83 81 108 H Respiratory Rate 18 18 16 Blood Pressure 102/69 105/65 98/58 L Pulse Oximetry 98 92 L 92 L Intake & Output 04/16/18 04/17/18 04/17/18 18:59 06:59 18:59 Intake Total 600 / 600 560 / 560 Balance 600 / 600 560 / 560 Weight 74.843 kg Intake: IV 600 / 600 200 / 200 Protonix Inj 80 MG In NS Inj 100 / 100 100 / 100 100 ML @ 10 mls/hr IV.CONT Q10H FLAQUITA Rx#:[id number] Maxipime Inj 2,000 MG In NS Inj 100 / 100 100 ML @ 200 mls/hr IV.SIG Q24H FLAQUITA Rx#:[id number] NS Inj 500 ML @ 200 mls/hr IV. 500 / 500 SIG BOLUS FLAQUITA Rx#:[id number] Oral 360 / 360 Other: # Voids 0 Date of Last Bowel Movement 04/16/18 04/16/18 # Bowel Movements 2 # Incontinent Bowel Movements 1 1 Narrative: GENERAL: AAOx2, no acute distress, adequate nutrition, functional paralysis SKIN: Warm and dry, no rashes. HEAD: Atraumatic. Normocephalic. EYES: Pupils equal, round, reactive to light. No scleral icterus. No injection or drainage. ENT: No nasal bleeding or discharge. Moist mucous membranes. Nonerythematous oropharynx. NECK: Trachea midline. No JVD. Thyroid size within normal limits. CARDIOVASCULAR: Regular rate and rhythm. No murmur, no gallops, no rubs. RESPIRATORY: Clear and equal to auscultation bilaterally. No crackles, no wheezes. No accessory muscle use. GASTROINTESTINAL: Abdomen soft, non-tender, nondistended, normal active bowel sounds. Hepatic and splenic margins not palpable. MUSCULOSKELETAL: Contractures of upper and lower extremities, no functional use of hands, functional quadriplegia NEUROLOGICAL: Awake and alert. Deficits and contractures consistent with history of CVA and subsequent paralysis PSYCHIATRIC: Appropriate mood and affect; insight and judgment normal. Results Labs CBC & Chem 7: 04/16/18 12:24 04/16/18 12:24 Labs: Microbiology 04/14/18 04:10 Blood - Peripheral Aerobic Blood Culture - Preliminary No growth in 3 days 04/14/18 04:10 Blood - Peripheral Anaerobic Blood Culture - Preliminary No growth in 3 days 04/14/18 04:15 Blood - Peripheral Aerobic Blood Culture - Preliminary No growth in 3 days 04/14/18 04:15 Blood - Peripheral Anaerobic Blood Culture - Preliminary No growth in 3 days 04/14/18 02:15 Catheterized Urine Urine Culture - Final Tamera albicans Assessment and Plan (1) Anemia: Code(s): D64.9 - Anemia, unspecified Status: Acute (2) Aspiration pneumonia of both lungs: Code(s): J69.0 - Pneumonitis due to inhalation of food and vomit Status: Acute (3) Coffee ground emesis: Code(s): K92.0 - Hematemesis Status: Acute (4) Dysphagia: Code(s): R13.10 - Dysphagia, unspecified Status: Acute (5) End stage renal disease on dialysis: Code(s): N18.6 - End stage renal disease; Z99.2 - Dependence on renal dialysis Status: Acute (6) Hypotension: Code(s): I95.9 - Hypotension, unspecified Status: Acute (7) Diabetes: Code(s): E11.9 - Type 2 diabetes mellitus without complications Status: Chronic Plan 62-year-old male with history of CVA and functional paralysis, CAD, type 2 diabetes, ESRD on dialysis, PEG tube, previous upper GI bleed, presented to the hospital overnight with chest pain that was followed by emesis mixed with bright red blood. Upper GI bleed w/ anemia -presented to the ER with chest pain and bright red blood in emesis -was seen 4 months ago for the same thing, esophagitis present at that time, normal gastric mucosa -GI consulted and following -Protonix drip -EGD scheduled for this morning -Bloody stool 04/15/18 -Hgb remains stable despite bleeding h/o PEG tube -No issues 4 months ago on EGD, however this should be considered if bleeding persists -These feedings should be resumed following EGD, patient may however be discharged at that point and resume outpatient feeds ESRD w/ dialysis -Nephrology consult to arrange for ongoing dialysis treatments Type 2 diabetes -Accu-Cheks with sliding scale insulin coverage -Diabetic PEG tube and pured feeds, honey thickened liquid based on speech therapy eval -Okay to have "regular" diet for now due to low intake and risk of hypoglycemia -Change back to diabetic diet following EGD Functional quadriplegia, CVA -Patient has contractures and deficits consistent with previous CVA -He will need long-term PT, if he remains hospitalized we will consult PT h/o CAD -Asymptomatic currently, monitor for any further chest pain h/o schizophrenia -Appears stable now, appropriate mood, fair insight, alert and oriented x3 MDM: self Code: Full GI ppx: Protonix drip DVT prophylaxis: SCDs, chemoprophylaxis held due to current upper GI bleed Discussed with: RN, patient, supervising MD Dispo: SNF Progress Note: Quality VTE Deep Vein Thrombosis/Pulmonary Embolism Present on Admission: No _ (1) Anemia Qualifiers: Anemia type: Iron deficiency anemia type: Vitamin B12 deficiency anemia type: Folate deficiency anemia type: Bone marrow failure anemia type: Hemolytic anemia type: Other causes of anemia: Chronic kidney disease stage : (2) Aspiration pneumonia of both lungs Qualifiers: Aspiration pneumonia type: unspecified Lung location: lower lobe of lung Qualified Code(s): J69.0 - Pneumonitis due to inhalation of food and vomit (3) Dysphagia Qualifiers: Dysphagia type: (4) Hypotension Qualifiers: Hypotension type: Trimester: (5) Diabetes Qualifiers: Diabetes mellitus type: type 2 Diabetes mellitus residential insulin use: Diabetes mellitus complication status: Diabetes mellitus complication detail: Diabetic retinopathy severity: Proliferative retinopathy type: Diabetes mellitus macular edema: Laterality: Chronic kidney disease stage: on chronic dialysis
--- NOTE | 2018-04-17 16:34 | ECG ---
Date Performed: 04/17/2018 Time Performed: 09:17:29 PTAGE: 62 years EKG: Sinus rhythm BORDERLINE LEFT AXIS DEVIATION BORDERLINE ECG PREVIOUS TRACING read septal NH, which is not seen on the current tracing. PREVIOUS TRACIN 22.35 DOCTOR: Sotero Gonzales Interpretating Date/Time 04/17/2018 16:34:10
[2018-04-18] MEDS: Pantoprazole Inj 80 MG in Sodium Chlor 0.9% Inj 100 ML IV.CONT SCH ×2 (06:38→10:26)
[2018-04-18] MEDS: Senna/Docusate Sodium 8.6/50 MG Tablet PO SCH ×2 (10:26→20:45)
--- NOTE | 2018-04-18 13:26 | P.PNIM ---
Subjective Interval history: Notified by nursing that since patient returned from dialysis , he is unresponsive and was having shaking episodes during dialysis. On my evaluation. He appears to have a tremor of his right hand. He is unresponsive and does not follow commands. Discussed with RN. A stroke alert will be called. Physical Exam Vital signs: Vital Signs 04/17/18 16:00 04/17/18 20:00 04/18/18 00:00 Temperature 97.1 F L 99.0 F 98.5 F Pulse Rate 84 80 89 Respiratory Rate 20 15 15 Blood Pressure 112/60 124/60 106/69 Pulse Oximetry 95 95 93 L 04/18/18 04:00 04/18/18 08:00 Temperature 97.4 F L 98.6 F Pulse Rate 86 101 H Respiratory Rate 14 18 Blood Pressure 111/70 118/63 Pulse Oximetry 95 96 Intake & Output 04/17/18 04/18/18 04/18/18 18:59 06:59 18:59 Intake Total 200 / 200 100 / 100 200 / 200 Output Total 0 / 0 Balance 200 / 200 100 / 100 200 / 200 Intake: IV 200 / 200 100 / 100 200 / 200 Protonix Inj 80 MG In NS Inj 100 / 100 100 / 100 100 / 100 100 ML @ 10 mls/hr IV.CONT Q10H [facility]LA[facility] Rx#:[id number] Flexbumin 25% Inj 100 ML @ 60 100 / 100 mls/hr IV.SIG WITH DIALYSIS PRN Rx#:[id number] Maxipime Inj 2,000 MG In NS Inj 100 / 100 100 ML @ 200 mls/hr IV.SIG Q24H FLAQUITA Rx#:[id number] Output: Urine 0 / 0 Other: Date of Last Bowel Movement 04/16/18 04/16/18 Narrative: GENERAL: Patient is nonresponsive. Does not interact EYES: Pupils very slow to react CARDIOVASCULAR: Rate around 105. Regular rhythm. No murmur, no gallops, no rubs. RESPIRATORY: Clear and equal to auscultation bilaterally. No crackles, no wheezes. No accessory muscle use. GASTROINTESTINAL: Abdomen soft,nondistended. PEG in place. MUSCULOSKELETAL: Contractures of upper and lower extremities, no functional use of hands, functional quadriplegia NEUROLOGICAL: Non responsive. Does not follow commands. Contractures consistent with history of CVA and subsequent paralysis. Right arm tremor. Results Labs CBC & Chem 7: 02/19/19 13:24 04/18/18 13:24 Labs: Microbiology 04/14/18 04:10 Blood - Peripheral Aerobic Blood Culture - Preliminary No growth in 4 days 04/14/18 04:10 Blood - Peripheral Anaerobic Blood Culture - Preliminary No growth in 4 days 04/14/18 04:15 Blood - Peripheral Aerobic Blood Culture - Preliminary No growth in 4 days 04/14/18 04:15 Blood - Peripheral Anaerobic Blood Culture - Preliminary No growth in 4 days Assessment and Plan (1) Anemia: Code(s): D64.9 - Anemia, unspecified Status: Acute (2) Aspiration pneumonia of both lungs: Code(s): J69.0 - Pneumonitis due to inhalation of food and vomit Status: Acute (3) Coffee ground emesis: Code(s): K92.0 - Hematemesis Status: Acute (4) Dysphagia: Code(s): R13.10 - Dysphagia, unspecified Status: Acute (5) End stage renal disease on dialysis: Code(s): N18.6 - End stage renal disease; Z99.2 - Dependence on renal dialysis Status: Acute (6) Hypotension: Code(s): I95.9 - Hypotension, unspecified Status: Acute (7) Diabetes: Code(s): E11.9 - Type 2 diabetes mellitus without complications Status: Chronic Plan 62-year-old male with history of CVA, quadriplegia, end-stage renal disease on hemodialysis, PEG dependent admitted with upper GI bleeding. Previous notes documented the patient has been awake, alert, and oriented. On 04/18/18, the patient was noted to be unresponsive. JODI RN to call a stroke alert. CVA vs seizures: - on 04/18/18, patient noted to be unresponsive. A stroke alert was called. He does have a history of CVA. Seizure is a possibility. - Follow-up imaging and neurology recommendations. - Stat EEG Upper GI bleed w/ anemia Patient presented to the ER with chest pain and bright red blood in emesis Patient was seen 4 months ago for the same thing, esophagitis present at that time, normal gastric mucosa EGD was scheduled but the patient initially refused Bloody stool 04/15/18 Hgb remains stable despite bleeding EGD planned for 04/17/18 but was canceled. Appreciate gastroenterology follow-up. h/o PEG tube EGD to be done per GI. Resume tube feeding when okay with GI ESRD w/ dialysis Nephrology following for ongoing dialysis treatments Type 2 diabetes Accu-Cheks with sliding scale insulin coverage Functional quadriplegia, CVA Patient has contractures and deficits consistent with previous CVA. However it was documented that he was awake and alert yesterday. He has had a change in mental status and is nonresponsive. h/o CAD Asymptomatic currently, monitor for any further chest pain h/o schizophrenia Appears stable for now DVT prophylaxis SCDs, chemoprophylaxis held due to current upper GI bleed Progress Note: Quality VTE Deep Vein Thrombosis/Pulmonary Embolism Present on Admission: No _ (1) Diabetes Qualifiers: Chronic kidney disease stage: on chronic dialysis Diabetes mellitus complication detail: Diabetes mellitus complication status: Diabetes mellitus vp packaging insulin use: Diabetes mellitus macular edema: Diabetes mellitus type: type 2 Diabetic retinopathy severity: Laterality: Proliferative retinopathy type: (2) Anemia Qualifiers: Anemia type: Bone marrow failure anemia type: Chronic kidney disease stage : Folate deficiency anemia type: Hemolytic anemia type: Iron deficiency anemia type: Other causes of anemia: Vitamin B12 deficiency anemia type: (3) Dysphagia Qualifiers: Dysphagia type: (4) Aspiration pneumonia of both lungs Qualifiers: Aspiration pneumonia type: unspecified Lung location: lower lobe of lung Qualified Code(s): J69.0 - Pneumonitis due to inhalation of food and vomit (5) Hypotension Qualifiers: Hypotension type: Trimester:
[2018-04-18 13:37] LABS: Baso % (Auto) 0.4 % (0.0-2.0); Eos % (Auto) 0.3 % (0.0-4.0); Hematocrit 28.7 % (39.0-51.0); Hemoglobin 9.6 gm/dL (13.0-17.0); Lymph # (Auto) 0.7 th/mm3 (1.0-4.8); Lymph % (Auto) 6.6 % (9.0-44.0); Mean Corpuscular HGB Conc 33.3 % (32.0-36.0); Mean Corpuscular Hemoglobin 29.9 pg (27.0-34.0); Mean Corpuscular Volume 89.9 fL (80.0-100.0); Mean Platelet Volume 7.8 fL (7.0-11.0); Mono # (Auto) 0.8 th/mm3 (0.0-0.9); Mono % (Auto) 8.4 % (0.0-8.0); Neut # (Auto) 8.3 th/mm3 (1.8-7.7); Neut % (Auto) 84.3 % (16.0-70.0); Platelet Count 254 th/mm3 (150-450); Red Blood Count 3.19 mil/mm3 (4.50-5.90); White Blood Count 9.9 th/mm3 (4.0-11.0)
--- NOTE | 2018-04-18 13:57 | CT ---
EXAM DATE: 04/18/2018 1:51 PM EST AGE/SEX: 62 years / Male INDICATIONS: Unresponsive CLINICAL DATA: This is the patient's initial encounter. Patient reports that signs and symptoms have been present for 1 day and indicates a pain score of Nonresponsive. MEDICAL/SURGICAL HISTORY: Non-responsive. Non-responsive. RADIATION DOSE: 52.83 CTDI (mGy) COMPARISON: [facility] – [place], CT BRAIN W/O CONTRAST, 07/25/2015. . TECHNIQUE: CT of the head without contrast. Using automated exposure control and adjustment of the mA and/or kV according to patient size, radiation dose was kept as low as reasonably achievable to ob tain optimal diagnostic quality images. DICOM format image data is available electronically for revi ew and comparison. FINDINGS: Cerebrum: Redemonstration of large regions of encephalomalacia involving the anterior right MCA and FOREST AIDE territories. Jo-white matter differentiation is otherwise maintained. No intra or extra-axial h emorrhage or focal fluid collections. Intervals are stable in size with ex vacuo dilatation of the ri ght lateral ventricle. Posterior Fossa: Focal encephalization the left cerebellar hemisphere. The 4th ventricle is midline. The cerebellopontine angle is unremarkable. Extracranial: The visualized portion of the orbits is intact. Skull: The calvaria is intact. No evidence of skull fracture. CONCLUSION: 1. No acute intracranial abnormality. 2. Remote infarcts in the right anterior MCA and FOREST AIDE territories as well as the left cerebral hemisp here. Report was called by Dr. Mcelroy to Dr. Starr at 1349 PM.. Electronically signed by: Pako Multani MD Board Certified Radiologist 04/18/2018 1:55 PM EST
[2018-04-18 14:01] LABS: Calcium 9.3 mg/dL (8.5-10.1); Carbon Dioxide 25.9 meq/L (21.0-32.0); Potassium 4.5 meq/L (3.5-5.1)
--- NOTE | 2018-04-18 14:10 | CT ---
EXAM DATE: 04/18/2018 2:04 PM EST AGE/SEX: 62 years / Male INDICATIONS: Unresponsive CLINICAL DATA: This is the patient's initial encounter. Patient reports that signs and symptoms have been present for 2 days and indicates a pain score of Nonresponsive. MEDICAL/SURGICAL HISTORY: Renal disease, end stage. Non-responsive. RADIATION DOSE: 10.39 CTDI (mGy) COMPARISON: No prior exams available for comparison. TECHNIQUE: Volumetric scanning was performed using a multi-row detector CT scanner during bolus infu abigail of 75 ml Visipaque 320 (iodixanol) nonionic water-soluble contrast as a cumulative dose for mul tiple exams. The data was post processed with a variety of visualization algorithms including full volume maximum intensity projection, multi-planar sliding thin slab reformation, curved planar reform ation, and surface rendering techniques. Using automated exposure control and adjustment of the mA a nd/or kV according to patient size, radiation dose was kept as low as reasonably achievable to obtain optimal diagnostic quality images. DICOM format image data is available electronically for review a nd comparison. FINDINGS: Anterior Circulation: Intracranial Carotid Arteries: Patent. BENJAMIN: There is no evidence for aneurysm, vessel truncation or stenosis, and no evidence for vascular m alformation. MCA: Truncation of inferior temporal M2 branch of the right MCA territory as well as several distal M 2 branches of the right MCA territory consistent with patient's history of prior right MCA territory infarct. Left MCA territory appears intact. Posterior Circulation: Distal Vertebral Arteries: Distal Vertebral arteries are symetrical and patent. Basilar Artery: There is no evidence for aneurysm, vessel truncation or stenosis, and no evidence for vascular malformation. POST ACUTE CARE NURSE and Cerebellar Branches: There is no evidence for aneurysm, vessel truncation or stenosis, and no evidence for vascular malformation. CONCLUSION: 1. Occlusion of temporal and distal M2 branches of the right MCA territory consistent with patient's history of right MCA territory infarction. 2. More proximal right MCA branches are intact. 3. Remaining anterior circulation appears intact. Report was called by Dr. cMelroy to Dr. Starr at 1407 PM.. Electronically signed by: Pako Multani MD Board Certified Radiologist 04/18/2018 2:09 PM EST
--- NOTE | 2018-04-18 14:35 | CT ---
EXAM DATE: 04/18/2018 2:22 PM EST AGE/SEX: 62 years / Male INDICATIONS: Unresponsive CLINICAL DATA: This is the patient's initial encounter. Patient reports that signs and symptoms have been present for 1 day and indicates a pain score of Nonresponsive. MEDICAL/SURGICAL HISTORY: Renal disease, end stage. Non-responsive. RADIATION DOSE: 10.39 CTDI (mGy) ; Combined studies COMPARISON: No prior exams available for comparison. TECHNIQUE: Volumetric scanning was performed using a multirow detector CT scanner during bolus infus ion of 75 ml Visipaque 320 (iodixanol) nonionic water-soluble contrast as a cumulative dose for mult iple exams. The data was postprocessed with a variety of visualization algorithms including full-vo lume maximum intensity projection, multiplanar sliding thin-slab reformation, curved-planar reformati on, and surface-rendering techniques. Using automated exposure control and adjustment of the mA and/ or kV according to patient size, radiation dose was kept as low as reasonably achievable to obtain op timal diagnostic quality images. DICOM format image data is available electronically for review and comparison. Percent stenosis is calculated using the diameter of the stenotic region over the diameter of the nor mal distal internal carotid artery. FINDINGS: Aortic Arch: There is a three-vessel origin of the great vessels from the aorta. No evidence of ost ial narrowing Right Carotid: The common carotid artery is intact. The carotid bulb has a normal configuration wit hout ulceration or narrowing. Minimal eccentric calcified plaque in the proximal internal carotid art latasha without flow-limiting stenosis. Internal carotid artery is otherwise patent to the skull base. T he external carotid artery is intact. Left Carotid: The common carotid artery is intact. The carotid bulb has a normal configuration with out ulceration or narrowing. The internal carotid artery lumen is smooth without stenosis. The exte rnal carotid artery is intact. Vertebrals: Dominant left vertebral artery. No stenotic lesions are seen. General Findings: Lung apices are clear. Thyroid is unremarkable by CT. No significant adenopathy. CONCLUSION: 1. Right Carotid: No hemodynamically significant stenosis. 2. Left Caortid: No hemodynamically significant stenosis. Report was called by Dr. Mcelroy to Dr. Starr at 1407 p.m.. Electronically signed by: Pako Multani MD Board Certified Radiologist 04/18/2018 2:33 PM EST
[2018-04-18] MEDS ORDERED: Fosphenytoin Inj 1,000 MGPE in Sodium Chlor 0.9% Inj 50 ML IV.SIG ONE (16:30)
--- NOTE | 2018-04-18 16:34 | P.PNNP ---
Subjective Interval history: Seen in AM during hemodialysis tolerating well. Patient was non verbal during exam and shaky. <Khalida Laura - Last Filed: 04/18/18 16:19> Physical Exam Vital signs: Vital Signs 04/17/18 20:00 04/18/18 00:00 04/18/18 04:00 Temperature 99.0 F 98.5 F 97.4 F L Pulse Rate 80 89 86 Respiratory Rate 15 15 14 Blood Pressure 124/60 106/69 111/70 Pulse Oximetry 95 93 L 95 04/18/18 08:00 Temperature 98.6 F Pulse Rate 103 H Respiratory Rate 18 Blood Pressure 118/63 Pulse Oximetry 96 Intake & Output 04/17/18 04/18/18 04/18/18 18:59 06:59 18:59 Intake Total 200 / 200 100 / 100 200 / 200 Output Total 0 / 0 1000 / 1000 Balance 200 / 200 100 / 100 -800 / -800 Intake: IV 200 / 200 100 / 100 200 / 200 Protonix Inj 80 MG In NS Inj 100 / 100 100 / 100 100 / 100 100 ML @ 10 mls/hr IV.CONT Q10H [facility] Rx#:[id number] Flexbumin 25% Inj 100 ML @ 60 100 / 100 mls/hr IV.SIG WITH DIALYSIS PRN Rx#:[id number] Maxipime Inj 2,000 MG In NS Inj 100 / 100 100 ML @ 200 mls/hr IV.SIG Q24H [facility] Rx#:[id number] Output: Urine 0 / 0 Hemodialysis Amount 1000 / 1000 Other: Date of Last Bowel Movement 04/16/18 04/16/18 04/16/18 Narrative: GENERAL: Seen during hemodialysis SKIN: Warm and dry, no rash NECK: Trachea midline. No JVD. CARDIOVASCULAR: Regular rate and rhythm. No murmur, no gallops, no rubs. RESPIRATORY: Clear and equal to auscultation bilaterally. No crackles, no wheezes. No accessory muscle use. GASTROINTESTINAL: Abdomen soft, non-tender, nondistended, normal active bowel sounds. GT in place. MUSCULOSKELETAL: Contractures of upper and lower extremities, no functional use of hands, functional quadriplegia <Khalida Laura - Last Filed: 04/18/18 16:19> Vital signs: Vital Signs 04/17/18 20:00 04/18/18 00:00 04/18/18 04:00 Temperature 99.0 F 98.5 F 97.4 F L Pulse Rate 80 89 86 Respiratory Rate 15 15 14 Blood Pressure 124/60 106/69 111/70 Pulse Oximetry 95 93 L 95 04/18/18 08:00 04/18/18 16:00 04/18/18 17:28 Temperature 98.6 F 98.7 F Pulse Rate 103 H 109 H 128 H Respiratory Rate 18 22 39 H Blood Pressure 118/63 116/67 Pulse Oximetry 96 100 96 04/18/18 18:00 Temperature Pulse Rate 123 H Respiratory Rate 36 H Blood Pressure Pulse Oximetry 96 Intake & Output 04/17/18 04/18/18 04/18/18 18:59 06:59 18:59 Intake Total 200 / 200 100 / 100 370 / 370 Output Total 0 / 0 1000 / 1000 Balance 200 / 200 100 / 100 -630 / -630 Intake: IV 200 / 200 100 / 100 370 / 370 Protonix Inj 80 MG In NS Inj 100 / 100 100 / 100 100 / 100 100 ML @ 10 mls/hr IV.CONT Q10H [facility] Rx#:[id number] Flexbumin 25% Inj 100 ML @ 60 100 / 100 mls/hr IV.SIG WITH DIALYSIS PRN Rx#:[id number] Maxipime Inj 2,000 MG In NS Inj 100 / 100 100 / 100 100 ML @ 200 mls/hr IV.SIG Q24H [facility] Rx#:[id number] Cerebyx Inj 1,000 MGPE In NS 70 / 70 Inj 50 ML @ 280 mls/hr IV.SIG ONCE ONE Rx#:[id number] Output: Urine 0 / 0 Hemodialysis Amount 1000 / 1000 Other: Date of Last Bowel Movement 04/16/18 04/16/18 04/18/18 <Lizeth Bell - Last Filed: 04/18/18 19:00> Assessment and Plan - Assessment (1) Anemia Code(s): D64.9 - Anemia, unspecified Status: Acute (2) Aspiration pneumonia of both lungs Code(s): J69.0 - Pneumonitis due to inhalation of food and vomit Status: Acute Qualifiers: Aspiration pneumonia type: unspecified Lung location: lower lobe of lung Qualified Code(s): J69.0 - Pneumonitis due to inhalation of food and vomit (3) Coffee ground emesis Code(s): K92.0 - Hematemesis Status: Acute (4) Dysphagia Code(s): R13.10 - Dysphagia, unspecified Status: Acute (5) End stage renal disease on dialysis Code(s): N18.6 - End stage renal disease; Z99.2 - Dependence on renal dialysis Status: Acute (6) Hypotension Code(s): I95.9 - Hypotension, unspecified Status: Acute (7) Diabetes Code(s): E11.9 - Type 2 diabetes mellitus without complications Status: Chronic Qualifiers: Diabetes mellitus type: type 2 Chronic kidney disease stage: on chronic dialysis - Plan Patient with End stage renal disease and CVA, History of GI bleeding in past and has Dysphagia. Patient has been on GT feeding. Admitted with Hematemesis. On Epogen with HD. EGD cancelled yesterday Continue with hemodialysis on Hemodialysis today, apparent seizure activity per EEG started on antiepileptics. <Khalida Laura - Last Filed: 04/18/18 16:19> - Assessment (1) Anemia Code(s): D64.9 - Anemia, unspecified Status: Acute (2) Aspiration pneumonia of both lungs Code(s): J69.0 - Pneumonitis due to inhalation of food and vomit Status: Acute Qualifiers: Aspiration pneumonia type: unspecified Lung location: lower lobe of lung Qualified Code(s): J69.0 - Pneumonitis due to inhalation of food and vomit (3) Coffee ground emesis Code(s): K92.0 - Hematemesis Status: Acute (4) Dysphagia Code(s): R13.10 - Dysphagia, unspecified Status: Acute (5) End stage renal disease on dialysis Code(s): N18.6 - End stage renal disease; Z99.2 - Dependence on renal dialysis Status: Acute (6) Hypotension Code(s): I95.9 - Hypotension, unspecified Status: Acute (7) Diabetes Code(s): E11.9 - Type 2 diabetes mellitus without complications Status: Chronic Qualifiers: Diabetes mellitus type: type 2 Chronic kidney disease stage: on chronic dialysis - Plan Patient seen during HD, remain more lethargic. Now transferred to [facility]. Has work up done for CVA. CT scan report noted. <Lizeth Bell - Last Filed: 04/18/18 19:00>
--- NOTE | 2018-04-18 16:58 | OTSOAPIP ---
RECEIVED OCCUPATIONAL THERAPY ORDERS. ATTEMPTED TO SEE PATIENT THREE TIMES THIS DAY. ON FIRST ATTEMPT, PATIENT WAS IN DIALYSIS. ON SECOND ATTEMPT, PATIENT WAS OFF FLOOR AT CT. ON THIRD ATTEMPT, PATIENT WAS ACTIVELY SEIZING WITH NURSING PRESENT IN ROOM PREPARING FOR TRANSFER TO INTENSIVE CARE UNIT. WILL SIGN OFF DUE TO CHANGE IN STATUS. PLEASE RE-CONSULT WHEN PATIENT IS MEDICALLY STABLE. INTERDISCIPLINARY COMMUNICATION: REVIEWED ELECTRONIC MEDICAL RECORD, SPOKE WITH VLAD ACOSTA Therapist: Makayla Salazar OTR/L Signature on file
--- NOTE | 2018-04-18 17:47 | P.CONNS ---
History of Present Illness Service: Neurology Primary Care Provider: UNKNOWN Chief Complaint: Altered mental status History of Present Illness: Discussed with Neurology Patient had altered mental status today after dialysis consistent with seizures. EEG suggested still actively seizing. Imaging suggests old infarcts, no acute issues for neurosurgery. 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) AV (arteriovenous fistula) Anxiety Benign prostatic hyperplasia Bipolar disorder Cerebral infarction Chronic kidney disease Contracture, left hand Dysphagia Dysphagia, oropharyngeal phase End stage renal disease Esophagitis Gastroesophageal reflux disease Heart failure Hyperlipidemia Hypothyroidism Iron deficiency anemia Mood disorder Muscle weakness Osteoporosis Peripheral vascular disease Renal dialysis status Schizophrenia Type 2 diabetes mellitus - Surgical History Surgical History: Surgical History (Last Reviewed 04/14/18 @ 12:20 by Nav Moya MD) H/O cardiac catheterization - Family History Family History: Family History (Last Updated 04/14/18 @ 12:20 by Nav Moya MD) Other Hypertension No family history of cardiac disease - Tobacco History Second Hand Smoke Exposure: No Smoking Status: Cognitive impairment Tobacco Type: Cigarettes - Alcohol History How Often Do You Have a Drink Containing Alcohol: Unable to Obtain - Substance Use History Substance History: No History of Abuse - Travel History Recent Travel in the [place] Within the Last 8 Weeks: No Recent Travel Out of the Country Within the Last 8 Weeks: No - Immunization History Tetanus Immunization: >5 Years Medications and Allergies Active Medications: Active Medications Acetaminophen (Tylenol) 650 mg PO UNSCH PRN PRN Reason: SEE LABEL COMMENTS Chlorhexidine Gluconate (Chlorhexidine 2% Cloth) 3 pack TOPICAL DAILY@0400 [facility] Stop: 04/24/18 03:59 Chlorhexidine Gluconate (Chlorhexidine 2% Cloth) 1 pack TOPICAL DAILY@0400 PRN PRN Reason: Extra cloth needed Stop: 04/24/18 03:59 Clonidine HCl (Catapres) 0.1 mg PO UNSCH PRN PRN Reason: SEE LABEL COMMENTS Epoetin Camilo (Epogen Inj) 10,000 unit IV.PUSH UNSCH PRN PRN Reason: SEE LABEL COMMENTS Last Admin: 04/18/18 11:27 Dose: 10,000 unit Gelatin (Gelfoam 12 Mm/7 Mm Topical) 1 foam TOPICAL PRN PRN PRN Reason: help stop bleeding from site Last Admin: 04/18/18 11:28 Dose: 1 foam Gentamicin Sulfate (Gentamicin Inj) 20 mg OTHER WITH DIALYSIS PRN PRN Reason: Dwell Gentamycin Lock Heparin Sodium (Porcine) (Heparin Inj) 8,000 units OTHER WITH DIALYSIS PRN PRN Reason: for machine prime Heparin Sodium (Porcine) (Heparin Inj) 1,000 units OTHER WITH DIALYSIS PRN PRN Reason: Dwell Heparin to Fill Catheter Cefepime HCl 2,000 mg/ Sodium (Chloride) 100 mls @ 200 mls/hr IV.SIG Q24H [facility] Last Infusion: 04/18/18 16:34 Dose: Infused Albumin Human (Flexbumin 25% Inj) 100 mls @ 60 mls/hr IV.SIG WITH DIALYSIS PRN PRN Reason: hypotension / volume replace Last Infusion: 04/18/18 10:25 Dose: Infused Sodium Chloride (Ns Inj) 1,000 mls @ 200 mls/hr OTHER .Q5H PRN PRN Reason: for dialyzer flush PRN Sodium Chloride (Ns Inj) 1,000 mls @ 0 mls/hr IV.CONT .Q0M PRN PRN Reason: hypotension / volume replace Sodium Chloride (Ns Inj) 1,000 mls @ 0 mls/hr OTHER .Q0M PRN PRN Reason: for prime and rinse back Mannitol (Mannitol Inj) 12.5 gm IV.PUSH UNSCH PRN PRN Reason: hypotension / volume replace Nitroglycerin (Nitrostat Sl) 0.4 mg SL Q5M PRN PRN Reason: CHEST PAIN Ondansetron HCl (Zofran Inj) 4 mg IV.PUSH Q6H PRN PRN Reason: NAUSEA OR VOMITING Ondansetron HCl (Zofran Inj) 4 mg IV.PUSH UNSCH PRN PRN Reason: NAUSEA OR VOMITING Pantoprazole Sodium (Protonix Inj) 40 mg IV.PUSH DAILY [facility] Senna/Docusate Sodium (Radha-Colace) 1 tab PO BID [facility] Last Admin: 04/18/18 10:26 Dose: Not Given Sodium Chloride (Ns Flush) 2 ml IV.FLUSH BID [facility] Last Admin: 04/18/18 10:26 Dose: Not Given Sodium Chloride (Ns Flush) 2 ml IV.FLUSH PRN PRN PRN Reason: FLUSH AFTER USING IV ACCESS Sodium Chloride (Ns Flush) 5 ml IV.FLUSH PRN PRN PRN Reason: flush each lumen during HD Allergies Allergy/AdvReac Type Severity Reaction Status Date / Time methadone Allergy Severe Anaphylaxis Verified 01/24/18 23:08 acetaminophen Allergy Unknown Anaphylaxis Verified 01/24/18 23:08 propoxyphene Allergy Unknown Anaphylaxis Verified 01/24/18 23:08 Home Medications Medication Instructions Recorded Confirmed Type ascorbic acid (vitamin C) [Vitamin 500 mg FEEDING TUBE BID 09/14/17 04/14/18 History C] bisacodyl 5 mg FEEDING TUBE TID PRN 09/14/17 04/14/18 History escitalopram oxalate 10 mg FEEDING TUBE DAILY 09/14/17 04/14/18 History gabapentin 200 mg FEEDING TUBE HS 09/14/17 04/14/18 History lamotrigine [Lamictal] 200 mg PO HS 09/14/17 04/14/18 History multivitamin 1 tab FEEDING TUBE DAILY 09/14/17 04/14/18 History polyethylene glycol 3350 17 g FEEDING TUBE DAILY 09/14/17 04/14/18 History risperidone 0.5 mg FEEDING TUBE BID 09/14/17 04/14/18 History sevelamer carbonate [Renvela] 2,400 mg FEEDING TUBE AC 09/14/17 04/14/18 History trazodone 150 mg FEEDING TUBE HS 09/14/17 04/14/18 History insulin glargine [Lantus U-100 10 unit SUB-Q DAILY 11/18/17 04/14/18 History Insulin] lovastatin 20 mg FEEDING TUBE DAILY 11/18/17 04/14/18 History Lactobacillus 1 cap FEEDING TUBE BID 04/14/18 History ferrous sulfate 5.4 ml FEEDING TUBE TID 04/14/18 04/14/18 History insulin aspart U-100 1 sliding scale dose SUBCUT HS 04/14/18 04/14/18 History lactulose [Enulose] 30 ml FEEDING TUBE DAILY PRN 04/14/18 04/14/18 History melatonin 3 mg FEEDING TUBE HS 04/14/18 04/14/18 History metoclopramide HCl [Reglan] 5 mg FEEDING TUBE Q6H PRN 04/14/18 04/14/18 History Exam Vital signs: Vital Signs 04/17/18 20:00 04/18/18 00:00 04/18/18 04:00 Temperature 99.0 F 98.5 F 97.4 F L Pulse Rate 80 89 86 Respiratory Rate 15 15 14 Blood Pressure 124/60 106/69 111/70 Pulse Oximetry 95 93 L 95 04/18/18 08:00 04/18/18 16:00 Temperature 98.6 F 98.7 F Pulse Rate 103 H 109 H Respiratory Rate 18 22 Blood Pressure 118/63 116/67 Pulse Oximetry 96 100 Intake & Output 04/17/18 04/18/18 04/18/18 18:59 06:59 18:59 Intake Total 200 / 200 100 / 100 370 / 370 Output Total 0 / 0 1000 / 1000 Balance 200 / 200 100 / 100 -630 / -630 Intake: IV 200 / 200 100 / 100 370 / 370 Protonix Inj 80 MG In NS Inj 100 / 100 100 / 100 100 / 100 100 ML @ 10 mls/hr IV.CONT Q10H [facility] Rx#:[id number] Flexbumin 25% Inj 100 ML @ 60 100 / 100 mls/hr IV.SIG WITH DIALYSIS PRN Rx#:[id number] Maxipime Inj 2,000 MG In NS Inj 100 / 100 100 / 100 100 ML @ 200 mls/hr IV.SIG Q24H [facility] Rx#:[id number] Cerebyx Inj 1,000 MGPE In NS 70 / 70 Inj 50 ML @ 280 mls/hr IV.SIG ONCE ONE Rx#:[id number] Output: Urine 0 / 0 Hemodialysis Amount 1000 / 1000 Other: Date of Last Bowel Movement 04/16/18 04/16/18 04/16/18 Narrative: seizing despite ativan sats > 92% not following commands Results - Laboratory Findings CBC and BMP: 04/18/18 13:24 04/18/18 13:24 Abnormal lab findings: Abnormal Labs 04/14/18 04/14/18 04/14/18 01:53 01:53 02:15 RBC 3.66 L Hgb 10.5 L POC Hgb (Calc) Hct 32.5 L POC Hct MCHC RDW 17.6 H Neut % (Auto) 78.4 H Lymph % (Auto) Millard % (Auto) Neut # (Auto) Lymph # (Auto) Sodium POC Chloride Chloride Carbon Dioxide 36.8 H Anion Gap 4 L BUN 21 H Creatinine 4.20 H POC Creatinine Estimated GFR 17 L POC Glucose Random Glucose 160 H AST 10 L Alkaline Phosphatase 283 H Total Protein 10.2 H Urine Clarity Turbid H Urine Protein 100 H Urine Occult Blood Moderate H Ur Leukocyte Esterase Moderate H Urine WBC Clumps Many H Amorphous Sediment Moderate H Urine Bacteria Many H 04/14/18 04/14/18 04/15/18 08:52 17:05 01:44 RBC 3.12 L Hgb 8.8 L 9.8 L 8.9 L POC Hgb (Calc) Hct 27.5 L 29.5 L 28.0 L POC Hct MCHC 31.8 L RDW 17.6 H Neut % (Auto) Lymph % (Auto) Millard % (Auto) 8.6 H Neut # (Auto) Lymph # (Auto) Sodium POC Chloride Chloride Carbon Dioxide Anion Gap BUN Creatinine POC Creatinine Estimated GFR POC Glucose Random Glucose AST Alkaline Phosphatase Total Protein Urine Clarity Urine Protein Urine Occult Blood Ur Leukocyte Esterase Urine WBC Clumps Amorphous Sediment Urine Bacteria 04/15/18 04/15/18 04/15/18 01:44 11:20 12:06 RBC Hgb 10.3 L POC Hgb (Calc) Hct 32.3 L POC Hct MCHC RDW Neut % (Auto) Lymph % (Auto) Millard % (Auto) Neut # (Auto) Lymph # (Auto) Sodium POC Chloride Chloride Carbon Dioxide 32.7 H Anion Gap BUN 27 H Creatinine 5.70 H POC Creatinine Estimated GFR 12 L POC Glucose 123 H Random Glucose 108 H AST Alkaline Phosphatase Total Protein Urine Clarity Urine Protein Urine Occult Blood Ur Leukocyte Esterase Urine WBC Clumps Amorphous Sediment Urine Bacteria 04/15/18 04/16/18 04/16/18 20:32 12:24 12:24 RBC 3.68 L Hgb 11.1 L 10.8 L POC Hgb (Calc) Hct 35.4 L 33.3 L POC Hct MCHC RDW 18.4 H Neut % (Auto) Lymph % (Auto) Millard % (Auto) Neut # (Auto) Lymph # (Auto) Sodium 135 L POC Chloride Chloride 97 L Carbon Dioxide Anion Gap BUN 22 H Creatinine 5.28 H POC Creatinine Estimated GFR 13 L POC Glucose Random Glucose 159 H AST Alkaline Phosphatase Total Protein Urine Clarity Urine Protein Urine Occult Blood Ur Leukocyte Esterase Urine WBC Clumps Amorphous Sediment Urine Bacteria 04/18/18 04/18/18 04/18/18 13:01 13:24 13:24 RBC 3.19 L Hgb 9.6 L POC Hgb (Calc) 10.5 L Hct 28.7 L POC Hct 31.0 L MCHC RDW 18.0 H Neut % (Auto) 84.3 H Lymph % (Auto) 6.6 L Millard % (Auto) 8.4 H Neut # (Auto) 8.3 H Lymph # (Auto) 0.7 L Sodium POC Chloride 99 L Chloride Carbon Dioxide Anion Gap BUN Creatinine 3.92 H POC Creatinine 3.9 H Estimated GFR 19 L POC Glucose 144 H 140 H Random Glucose 145 H AST Alkaline Phosphatase Total Protein Urine Clarity Urine Protein Urine Occult Blood Ur Leukocyte Esterase Urine WBC Clumps Amorphous Sediment Urine Bacteria Assessment and Plan - Plan Defer to Neurology management, d/w Neurology and primary team. No acute neurosurgical issues, will sign off.
--- NOTE | 2018-04-18 18:05 | P.CONNEU ---
History of Present Illness Service: Neurology Primary Care Provider: UNKNOWN Chief Complaint: Altered mental status History of Present Illness: 62-year-old male admitted with being treated for GI bleed, anemia. History of previous chronic strokes causing severe physical disability. He also has end- stage renal disease on dialysis. He apparently came back from dialysis became unresponsive hospitalist called a stroke alert. As he is undergoing treatment for a GI bleed is not a candidate for IV TPA. In addition he is noted to have a blank stare and his exam was nonfocal and not consistent with an stroke. EEG was performed which showed seizure activity. Given Ativan in addition to IV Celebrex. Limited history from patient at present. Review of Systems unobtainable due to mental status PMFSH - History History Provided By: Patient - Medical History Medical History: Medical History (Last Updated 04/19/18 @ 08:24 by Adia Conner) History of ESBL Klebsiella pneumoniae infection History of MRSA infection AV (arteriovenous fistula) Anxiety Benign prostatic hyperplasia Bipolar disorder Cerebral infarction Chronic kidney disease Contracture, left hand Dysphagia Dysphagia, oropharyngeal phase End stage renal disease Esophagitis Gastroesophageal reflux disease Heart failure Hyperlipidemia Hypothyroidism Iron deficiency anemia Mood disorder Muscle weakness Osteoporosis Peripheral vascular disease Renal dialysis status Schizophrenia Type 2 diabetes mellitus - Surgical History Surgical History: Surgical History (Last Reviewed 04/19/18 @ 08:10 by Jd Garcia) H/O cardiac catheterization - Family History Family History: Family History (Last Updated 04/14/18 @ 12:20 by Nav Moya MD) Other Hypertension No family history of cardiac disease - Tobacco History Second Hand Smoke Exposure: No Smoking Status: Cognitive impairment Tobacco Type: Cigarettes - Alcohol History How Often Do You Have a Drink Containing Alcohol: Unable to Obtain - Substance Use History Substance History: No History of Abuse - Travel History Recent Travel in the [place] Within the Last 8 Weeks: No Recent Travel Out of the Country Within the Last 8 Weeks: No - Immunization History Tetanus Immunization: >5 Years Medications and Allergies Active Medications: Active Medications Acetaminophen (Tylenol) 650 mg PO UNSCH PRN PRN Reason: SEE LABEL COMMENTS Chlorhexidine Gluconate (Chlorhexidine 2% Cloth) 3 pack TOPICAL DAILY@0400 [facility] Stop: 04/24/18 03:59 Chlorhexidine Gluconate (Chlorhexidine 2% Cloth) 1 pack TOPICAL DAILY@0400 PRN PRN Reason: Extra cloth needed Stop: 04/24/18 03:59 Clonidine HCl (Catapres) 0.1 mg PO UNSCH PRN PRN Reason: SEE LABEL COMMENTS Epoetin Camilo (Epogen Inj) 10,000 unit IV.PUSH UNSCH PRN PRN Reason: SEE LABEL COMMENTS Last Admin: 04/18/18 11:27 Dose: 10,000 unit Gelatin (Gelfoam 12 Mm/7 Mm Topical) 1 foam TOPICAL PRN PRN PRN Reason: help stop bleeding from site Last Admin: 04/18/18 11:28 Dose: 1 foam Gentamicin Sulfate (Gentamicin Inj) 20 mg OTHER WITH DIALYSIS PRN PRN Reason: Dwell Gentamycin Lock Heparin Sodium (Porcine) (Heparin Inj) 8,000 units OTHER WITH DIALYSIS PRN PRN Reason: for machine prime Heparin Sodium (Porcine) (Heparin Inj) 1,000 units OTHER WITH DIALYSIS PRN PRN Reason: Dwell Heparin to Fill Catheter Cefepime HCl 2,000 mg/ Sodium (Chloride) 100 mls @ 200 mls/hr IV.SIG Q24H [facility] Last Infusion: 04/18/18 16:34 Dose: Infused Albumin Human (Flexbumin 25% Inj) 100 mls @ 60 mls/hr IV.SIG WITH DIALYSIS PRN PRN Reason: hypotension / volume replace Last Infusion: 04/18/18 10:25 Dose: Infused Sodium Chloride (Ns Inj) 1,000 mls @ 200 mls/hr OTHER .Q5H PRN PRN Reason: for dialyzer flush PRN Sodium Chloride (Ns Inj) 1,000 mls @ 0 mls/hr IV.CONT .Q0M PRN PRN Reason: hypotension / volume replace Sodium Chloride (Ns Inj) 1,000 mls @ 0 mls/hr OTHER .Q0M PRN PRN Reason: for prime and rinse back Mannitol (Mannitol Inj) 12.5 gm IV.PUSH UNSCH PRN PRN Reason: hypotension / volume replace Nitroglycerin (Nitrostat Sl) 0.4 mg SL Q5M PRN PRN Reason: CHEST PAIN Ondansetron HCl (Zofran Inj) 4 mg IV.PUSH Q6H PRN PRN Reason: NAUSEA OR VOMITING Ondansetron HCl (Zofran Inj) 4 mg IV.PUSH UNSCH PRN PRN Reason: NAUSEA OR VOMITING Pantoprazole Sodium (Protonix Inj) 40 mg IV.PUSH DAILY [facility] Senna/Docusate Sodium (Radha-Colace) 1 tab PO BID [facility] Last Admin: 04/18/18 10:26 Dose: Not Given Sodium Chloride (Ns Flush) 2 ml IV.FLUSH BID [facility] Last Admin: 04/18/18 10:26 Dose: Not Given Sodium Chloride (Ns Flush) 2 ml IV.FLUSH PRN PRN PRN Reason: FLUSH AFTER USING IV ACCESS Sodium Chloride (Ns Flush) 5 ml IV.FLUSH PRN PRN PRN Reason: flush each lumen during HD Allergies Allergy/AdvReac Type Severity Reaction Status Date / Time methadone Allergy Severe Anaphylaxis Verified 01/24/18 23:08 acetaminophen Allergy Unknown Anaphylaxis Verified 01/24/18 23:08 propoxyphene Allergy Unknown Anaphylaxis Verified 01/24/18 23:08 Home Medications Medication Instructions Recorded Confirmed Type RX: ascorbic acid (vitamin C) 500 mg FEEDING TUBE BID 09/14/17 04/14/18 History [Vitamin C] RX: bisacodyl 5 mg FEEDING TUBE TID PRN 09/14/17 04/14/18 History RX: escitalopram oxalate 10 mg FEEDING TUBE DAILY 09/14/17 04/14/18 History RX: gabapentin 200 mg FEEDING TUBE HS 09/14/17 04/14/18 History RX: lamotrigine [Lamictal] 200 mg PO HS 09/14/17 04/14/18 History RX: multivitamin 1 tab FEEDING TUBE DAILY 09/14/17 04/14/18 History RX: polyethylene glycol 3350 17 g FEEDING TUBE DAILY 09/14/17 04/14/18 History RX: risperidone 0.5 mg FEEDING TUBE BID 09/14/17 04/14/18 History RX: sevelamer carbonate [Renvela] 2,400 mg FEEDING TUBE AC 09/14/17 04/14/18 History RX: trazodone 150 mg FEEDING TUBE HS 09/14/17 04/14/18 History RX: insulin glargine [Lantus U-100 10 unit SUB-Q DAILY 11/18/17 04/14/18 History Insulin] RX: lovastatin 20 mg FEEDING TUBE DAILY 11/18/17 04/14/18 History Lactobacillus 1 cap FEEDING TUBE BID 04/14/18 History RX: ferrous sulfate 5.4 ml FEEDING TUBE TID 04/14/18 04/14/18 History RX: insulin aspart U-100 1 sliding scale dose SUBCUT HS 04/14/18 04/14/18 History RX: melatonin 3 mg FEEDING TUBE HS 04/14/18 04/14/18 History lactulose [Enulose] 30 ml FEEDING TUBE DAILY PRN 04/14/18 04/14/18 History metoclopramide HCl [Reglan] 5 mg FEEDING TUBE Q6H PRN 04/14/18 04/14/18 History Exam Vital signs: Vital Signs 04/17/18 20:00 04/18/18 00:00 04/18/18 04:00 Temperature 99.0 F 98.5 F 97.4 F L Pulse Rate 80 89 86 Respiratory Rate 15 15 14 Blood Pressure 124/60 106/69 111/70 Pulse Oximetry 95 93 L 95 04/18/18 08:00 04/18/18 16:00 Temperature 98.6 F 98.7 F Pulse Rate 103 H 109 H Respiratory Rate 18 22 Blood Pressure 118/63 116/67 Pulse Oximetry 96 100 Intake & Output 04/17/18 04/18/18 04/18/18 18:59 06:59 18:59 Intake Total 200 / 200 100 / 100 370 / 370 Output Total 0 / 0 1000 / 1000 Balance 200 / 200 100 / 100 -630 / -630 Intake: IV 200 / 200 100 / 100 370 / 370 Protonix Inj 80 MG In NS Inj 100 / 100 100 / 100 100 / 100 100 ML @ 10 mls/hr IV.CONT Q10H [facility] Rx#:[id number] Flexbumin 25% Inj 100 ML @ 60 100 / 100 mls/hr IV.SIG WITH DIALYSIS PRN Rx#:[id number] Maxipime Inj 2,000 MG In NS Inj 100 / 100 100 / 100 100 ML @ 200 mls/hr IV.SIG Q24H [facility] Rx#:[id number] Cerebyx Inj 1,000 MGPE In NS 70 / 70 Inj 50 ML @ 280 mls/hr IV.SIG ONCE ONE Rx#:[id number] Output: Urine 0 / 0 Hemodialysis Amount 1000 / 1000 Other: Date of Last Bowel Movement 04/16/18 04/16/18 04/16/18 Narrative: GENERAL: in NAD, SKIN: Warm and dry. HEAD: Atraumatic. EYES: Sluggish ENT: No nasal bleeding or discharge. NECK: Trachea midline. No JVD. CARDIOVASCULAR: Regular rate and rhythm. RESPIRATORY: No accessory muscle use. GASTROINTESTINAL: Abdomen soft, non-tender, PEG tube MUSCULOSKELETAL: Contracture NEUROLOGICAL: Lethargic, no involuntary movements increased tone left greater than right hemiparesis, fingers contracted PSYCHIATRIC: Somnolent Results - Labs CBC & Chem 7: 04/19/18 05:47 04/19/18 05:47 Labs: Laboratory Results - last 24 hr 04/18/18 04/18/18 04/18/18 13:01 13:24 13:24 WBC 9.9 RBC 3.19 L Hgb 9.6 L POC Hgb (Calc) 10.5 L Hct 28.7 L POC Hct 31.0 L MCV 89.9 MCH 29.9 MCHC 33.3 RDW 18.0 H Plt Count 254 MPV 7.8 Neut % (Auto) 84.3 H Lymph % (Auto) 6.6 L [place] % (Auto) 8.4 H Eos % (Auto) 0.3 Baso % (Auto) 0.4 Neut # (Auto) 8.3 H Lymph # (Auto) 0.7 L [place] # (Auto) 0.8 Eos # (Auto) 0.0 Baso # (Auto) 0.0 WBC Differential . Differential Comment Auto diff final POC Sodium 141 Sodium 139 POC Potassium 4.5 Potassium 4.5 POC Chloride 99 L Chloride 99 Carbon Dioxide 25.9 Anion Gap 14 POC BUN 14 BUN 14 Creatinine 3.92 H POC Creatinine 3.9 H Estimated GFR 19 L POC Glucose 144 H 140 H Random Glucose 145 H Calcium 9.3 - Imaging Impressions Head CT 04/18/18 13:35 CONCLUSION: 1. No acute intracranial abnormality. 2. Remote infarcts in the right anterior MCA and STUDENT TEACHER territories as well as the left cerebral hemisphere. Report was called by Dr. Mcelroy to Dr. Starr at 1349 PM.. Head CTA 04/18/18 13:35 CONCLUSION: 1. Occlusion of temporal and distal M2 branches of the right MCA territory consistent with patient's history of right MCA territory infarction. 2. More proximal right MCA branches are intact. 3. Remaining anterior circulation appears intact. Report was called by Dr. Mcelroy to Dr. Starr at 1407 PM.. Neck CTA 04/18/18 13:35 CONCLUSION: 1. Right Carotid: No hemodynamically significant stenosis. 2. Left Caortid: No hemodynamically significant stenosis. Report was called by Dr. Mcelroy to Dr. Starr at 1407 p.m.. Review/Management - Diagnosis (1) Seizure Code(s): R56.9 - Unspecified convulsions Status: Acute Current Visit: Yes (2) Chronic ischemic right BENJAMIN stroke Code(s): I69.30 - Unspecified sequelae of cerebral infarction Status: Acute Current Visit: Yes (3) Chronic ischemic right STUDENT TEACHER stroke Code(s): I69.30 - Unspecified sequelae of cerebral infarction Status: Acute Current Visit: Yes (4) Chronic ischemic left MCA stroke Code(s): I69.30 - Unspecified sequelae of cerebral infarction Status: Acute Current Visit: Yes (5) End stage renal disease on dialysis Code(s): N18.6 - End stage renal disease; Z99.2 - Dependence on renal dialysis Status: Acute Current Visit: No (6) Syncope Code(s): R55 - Syncope and collapse Status: Acute Current Visit: No (7) Anemia Code(s): D64.9 - Anemia, unspecified Status: Acute Current Visit: No - Review/Management Plan: Seizure activity High risk for seizure with previous chronic strokes; dialysis, in addition to metabolic abnormalities GI bleed Recommendations IV Celebrex, IV Depakote Follow-up EEG Correct any electrolyte abnormalities including magnesium calcium-defer to renal Antiplatelet agent when feasible Prognosis guarded with multiple medical comorbidities and severe previous neurologic injury (6) Syncope Qualifiers: Syncope type: unspecified Qualified Code(s): R55 - Syncope and collapse
[2018-04-18 19:02] LABS: Baso % (Auto) 0.3 % (0.0-2.0); Hematocrit 29.3 % (39.0-51.0); Hemoglobin 9.1 gm/dL (13.0-17.0); Lymph # (Auto) 0.5 th/mm3 (1.0-4.8); Lymph % (Auto) 3.9 % (9.0-44.0); Mean Corpuscular Hemoglobin 28.1 pg (27.0-34.0); Mean Corpuscular Volume 90.7 fL (80.0-100.0); Mono # (Auto) 1.2 th/mm3 (0.0-0.9); Mono % (Auto) 8.6 % (0.0-8.0); Neut # (Auto) 11.9 th/mm3 (1.8-7.7); Neut % (Auto) 87.2 % (16.0-70.0); Platelet Count 279 th/mm3 (150-450); Red Blood Count 3.24 mil/mm3 (4.50-5.90); Red Cell Distribution Width 18.2 % (11.6-17.2); White Blood Count 13.7 th/mm3 (4.0-11.0)
[2018-04-18 19:14] LABS: INR 1.3 Ratio; Prothrombin Time 12.7 sec (9.8-11.6)
[2018-04-18 19:30] LABS: Creatine Kinase 36 U/L (39-308)
[2018-04-18 19:37] LABS: Phenytoin (Dilantin) 11.4 mcg/mL (10.0-20.0)
--- NOTE | 2018-04-18 20:55 | P.PNGI ---
Subjective Interval history: Patient laying in bed with seizure activity transferred to ICU bed No active bleeding per RN at bedside EGD was canceled for tomorrow Hemoglobin is a stable Physical Exam Vital signs: Vital Signs 04/18/18 00:00 04/18/18 04:00 04/18/18 08:00 Temperature 98.5 F 97.4 F L 98.6 F Pulse Rate 89 86 103 H Respiratory Rate 15 14 18 Blood Pressure 106/69 111/70 118/63 Pulse Oximetry 93 L 95 96 04/18/18 16:00 04/18/18 17:28 04/18/18 18:00 Temperature 98.7 F Pulse Rate 109 H 128 H 123 H Respiratory Rate 22 39 H 36 H Blood Pressure 116/67 Pulse Oximetry 100 96 96 04/18/18 19:00 04/18/18 20:00 04/18/18 20:44 Temperature Pulse Rate 113 H 109 H 105 H Respiratory Rate 14 19 23 Blood Pressure 113/75 Pulse Oximetry 97 97 98 Intake & Output 04/18/18 04/18/18 04/19/18 06:59 18:59 06:59 Intake Total 100 / 100 370 / 370 Output Total 0 / 0 1000 / 1000 Balance 100 / 100 -630 / -630 Intake: IV 100 / 100 370 / 370 Protonix Inj 80 MG In NS Inj 100 / 100 100 / 100 100 ML @ 10 mls/hr IV.CONT Q10H [facility] Rx#:[id number] Flexbumin 25% Inj 100 ML @ 60 100 / 100 mls/hr IV.SIG WITH DIALYSIS PRN Rx#:[id number] Maxipime Inj 2,000 MG In NS Inj 100 / 100 100 ML @ 200 mls/hr IV.SIG Q24H [facility] Rx#:[id number] Cerebyx Inj 1,000 MGPE In NS 70 / 70 Inj 50 ML @ 280 mls/hr IV.SIG ONCE ONE Rx#:[id number] Output: Urine 0 / 0 Hemodialysis Amount 1000 / 1000 Other: Date of Last Bowel Movement 04/16/18 04/18/18 - Constitutional moderate distress Comments: Patient was having active seizure at the ICU bed - Routine HEENT Exam Head: Present: normocephalic, atraumatic - Routine Neck Exam Present: supple - Routine Respiratory Exam Present: CTA bilaterally - Routine Cardiovascular Exam Present: RRR, S1, S2 - Routine Abdominal Exam Present: soft, normoactive bowel sounds. Absent: tenderness, distended - Routine Extremities Exam Present: pulses intact, AV fistula Comments: Extremity contractures Results - Labs CBC & Chem 7: 04/18/18 18:39 04/18/18 13:24 Laboratory Results - last 24 hr 04/18/18 04/18/18 04/18/18 13:01 13:24 13:24 WBC 9.9 RBC 3.19 L Hgb 9.6 L POC Hgb (Calc) 10.5 L Hct 28.7 L POC Hct 31.0 L MCV 89.9 MCH 29.9 MCHC 33.3 RDW 18.0 H Plt Count 254 MPV 7.8 Neut % (Auto) 84.3 H Lymph % (Auto) 6.6 L [place] % (Auto) 8.4 H Eos % (Auto) 0.3 Baso % (Auto) 0.4 Neut # (Auto) 8.3 H Lymph # (Auto) 0.7 L [place] # (Auto) 0.8 Eos # (Auto) 0.0 Baso # (Auto) 0.0 WBC Differential . Differential Comment Auto diff final PT INR APTT Fibrinogen POC Sodium 141 Sodium 139 POC Potassium 4.5 Potassium 4.5 POC Chloride 99 L Chloride 99 Carbon Dioxide 25.9 Anion Gap 14 POC BUN 14 BUN 14 Creatinine 3.92 H POC Creatinine 3.9 H Estimated GFR 19 L POC Glucose 144 H 140 H Random Glucose 145 H Calcium 9.3 Magnesium Total Creatine Kinase Troponin I Nasal Screen MRSA (PCR) Phenytoin Valproic Acid Blood Type Antibody Screen 04/18/18 04/18/18 04/18/18 17:00 18:39 18:39 WBC 13.7 H RBC 3.24 L Hgb 9.1 L POC Hgb (Calc) Hct 29.3 L POC Hct MCV 90.7 MCH 28.1 MCHC 31.0 L RDW 18.2 H Plt Count 279 MPV 8.0 Neut % (Auto) 87.2 H Lymph % (Auto) 3.9 L [place] % (Auto) 8.6 H Eos % (Auto) 0.0 Baso % (Auto) 0.3 Neut # (Auto) 11.9 H Lymph # (Auto) 0.5 L [place] # (Auto) 1.2 H Eos # (Auto) 0.0 Baso # (Auto) 0.0 WBC Differential . Differential Comment Auto diff final PT 12.7 H INR 1.3 APTT 39.0 H Fibrinogen 510 H POC Sodium Sodium POC Potassium Potassium POC Chloride Chloride Carbon Dioxide Anion Gap POC BUN BUN Creatinine POC Creatinine Estimated GFR POC Glucose Random Glucose Calcium Magnesium Total Creatine Kinase Troponin I Nasal Screen MRSA (PCR) Mrsa detected Phenytoin Valproic Acid Blood Type Antibody Screen 04/18/18 04/18/18 04/18/18 18:39 18:39 18:39 WBC RBC Hgb POC Hgb (Calc) Hct POC Hct MCV MCH MCHC RDW Plt Count MPV Neut % (Auto) Lymph % (Auto) [place] % (Auto) Eos % (Auto) Baso % (Auto) Neut # (Auto) Lymph # (Auto) [place] # (Auto) Eos # (Auto) Baso # (Auto) WBC Differential Differential Comment PT INR APTT Fibrinogen POC Sodium Sodium POC Potassium Potassium POC Chloride Chloride Carbon Dioxide Anion Gap POC BUN BUN Creatinine POC Creatinine Estimated GFR POC Glucose Random Glucose Calcium Magnesium 2.3 Total Creatine Kinase 36 L Troponin I Less than 0.02 L Nasal Screen MRSA (PCR) Phenytoin Valproic Acid Blood Type B Positive Antibody Screen Negative 04/18/18 18:39 WBC RBC Hgb POC Hgb (Calc) Hct POC Hct MCV MCH MCHC RDW Plt Count MPV Neut % (Auto) Lymph % (Auto) [place] % (Auto) Eos % (Auto) Baso % (Auto) Neut # (Auto) Lymph # (Auto) [place] # (Auto) Eos # (Auto) Baso # (Auto) WBC Differential Differential Comment PT INR APTT Fibrinogen POC Sodium Sodium POC Potassium Potassium POC Chloride Chloride Carbon Dioxide Anion Gap POC BUN BUN Creatinine POC Creatinine Estimated GFR POC Glucose Random Glucose Calcium Magnesium Total Creatine Kinase Troponin I Nasal Screen MRSA (PCR) Phenytoin 11.4 Valproic Acid 9 L Blood Type Antibody Screen Microbiology 04/14/18 04:10 Blood - Peripheral Aerobic Blood Culture - Preliminary No growth in 4 days 04/14/18 04:10 Blood - Peripheral Anaerobic Blood Culture - Preliminary No growth in 4 days 04/14/18 04:15 Blood - Peripheral Aerobic Blood Culture - Preliminary No growth in 4 days 04/14/18 04:15 Blood - Peripheral Anaerobic Blood Culture - Preliminary No growth in 4 days - Imaging Impressions Head CT 04/18/18 13:35 CONCLUSION: 1. No acute intracranial abnormality. 2. Remote infarcts in the right anterior MCA and MANAGER BEVERAGE territories as well as the left cerebral hemisphere. Report was called by Dr. Mcelroy to Dr. Starr at 1349 PM.. Head CTA 04/18/18 13:35 CONCLUSION: 1. Occlusion of temporal and distal M2 branches of the right MCA territory consistent with patient's history of right MCA territory infarction. 2. More proximal right MCA branches are intact. 3. Remaining anterior circulation appears intact. Report was called by Dr. Mcelroy to Dr. Starr at 1407 PM.. Neck CTA 04/18/18 13:35 CONCLUSION: 1. Right Carotid: No hemodynamically significant stenosis. 2. Left Caortid: No hemodynamically significant stenosis. Report was called by Dr. Mcelroy to Dr. Starr at 1407 p.m.. Assessment and Plan (1) Anemia Status: Acute Code(s): D64.9 - Anemia, unspecified (2) Coffee ground emesis Status: Acute Code(s): K92.0 - Hematemesis - Plan Chart reviewed for acquisition of information to compile HPI as patient noncontributory. This patient is a 62-year-old male with past medical history of chronic renal disease on dialysis, insulin-dependent diabetes, hypertension, CVA with paralysis. Patient also has medical history of esophagitis. Surgical history includes cardiac cath and PEG tube placement via IR. Patient presented to [facility] emergency room from [facility] facility with report of chest wall burning pain, one reported episode of hemoptysis overnight. Patient has history of coffee-ground emesis. Last EGD performed revealed class B esophagitis with normal gastric and duodenal mucosa. Colonoscopy performed 01/27/2018 without an acute abnormality noted. Hgb 10.5 on admission, 8.8 recheck this am. Gtube present with dark brown gastric content. Pt endorses generalized abd pain with mild nausea. Our service has been consulted to evaluate for GIB. Of, note, pt has not been on PPI as home med. No noted NSAIDS listed. No blood thinners noted. GIB Coffee ground emesis Patient sent from [facility] facility with report of one episode of hemoptysis. History of coffee-ground emesis. Last EGD 01/25/2018 revealed a esophagitis with normal gastric and duodenal mucosa. Colonoscopy performed without acute abnormality noted. Hemoglobin 8.8 hematocrit 27.5 INR 1.0 History of chronic renal disease-BUN 21 creatinine 4.20 on hemodialysis 04/15/2018 Assessment Upper GI bleed Coffee-ground emesis Previous CVA Chronic renal failure on hemodialysis Hemoglobin 10.3 hematocrit 32.3 platelet 291 WBC 5.4 INR 1 BUN 27 creatinine 5.7 GFR of 12 Normal liver enzyme Alkaline phosphatase elevated at 283 04/16/2018 patient is resting in the bed, post speech eval, and cleared for pured foods and thickened liquids. Patient is hungry and is agreeable to EGD in the a.m. if he can eat today. No nausea no vomiting, no abdominal pain no obvious GI bleed noted labs reviewed which show hemoglobin now 11.1 PT/INR 1, alkaline phosphatase 283 Melena stools this past a.m. 2 large noted per nurse, denies any this a.m. 04/18/2018 Assessment Upper GI bleed coffee-ground emesis Previous CVA with recurrent seizure activities Chronic renal failure on hemodialysis Hemoglobin 9.1 hematocrit 29.3 platelet 279 Plan N.p.o. in light of seizures Seizure precaution Hold off any endoscopic procedure until patient is stable PPI Monitor labs and transfuse if needed GI will signed off, since hemoglobin is a stable EGD can be done as an outpatient Reconsult if needed Patient was seen per myself and Dr. Head , note was written on his behalf. - Attending Attestation Dr Head
[2018-04-18] MEDS: Valproate Inj 500 MG in Sodium Chlor 0.9% Inj 100 ML IV.SIG SCH (22:45)
[2018-04-18] MEDS: Mupirocin 2% Nasal Oint Topical Syringe EACH NARE SCH (23:53)
[2018-04-18] MEDS: Fosphenytoin Inj 200 MGPE in Sodium Chlor 0.9% Inj 50 ML IV.SIG SCH (23:54)
[2018-04-19] MEDS: Fosphenytoin Inj 200 MGPE in Sodium Chlor 0.9% Inj 50 ML IV.SIG SCH ×3 (00:04→22:02)
[2018-04-19] MEDS ORDERED: Chlorhexidine Gluconate 2% 1 Pack (2 Cloths) TOPICAL PRN (04:00)
[2018-04-19] MEDS: Chlorhexidine Gluconate 2% 1 Pack (2 Cloths) TOPICAL SCH (04:40)
[2018-04-19] MEDS: Valproate Inj 500 MG in Sodium Chlor 0.9% Inj 100 ML IV.SIG SCH (06:41)
--- NOTE | 2018-04-19 07:35 | MG ---
cc: Lokesh Starr MD EEG RECORD NUMBER: [id number] Generalized periodic discharges occurring, noted to be coughing with eyelid twitching at times. Rhythmic activity, varying frequency with some right arm tremor. More focal slowing in the left frontocentral region. Cessation of rhythmic activity occurring. High voltage showing 75 microvolts. Single EKG showing sinus rhythm. INTERPRETATION: Generalized seizure activity with focal left hemispheric slowing and left hemispheric sharp waves, cessation of periodic discharges towards the end of the study. Clinical correlation. MD GERRY Estrada/tennille/patience , 06:19 AM , 06:26 AM
[2018-04-19 07:47] LABS: Hematocrit 29.6 % (39.0-51.0); Hemoglobin 9.5 gm/dL (13.0-17.0); Mean Corpuscular Hemoglobin 29.1 pg (27.0-34.0); Mean Corpuscular Volume 90.9 fL (80.0-100.0); Mean Platelet Volume 8.6 fL (7.0-11.0); Platelet Count 265 th/mm3 (150-450); Red Blood Count 3.26 mil/mm3 (4.50-5.90); Red Cell Distribution Width 18.7 % (11.6-17.2); White Blood Count 10.6 th/mm3 (4.0-11.0)
[2018-04-19 08:11] LABS: Calcium 9.4 mg/dL (8.5-10.1); Carbon Dioxide 26.7 meq/L (21.0-32.0); Potassium 3.8 meq/L (3.5-5.1)
--- NOTE | 2018-04-19 08:30 | P.PNNEU ---
Subjective Subjective Comments: No acute events no seizures reported Active Medications: Active Medications Acetaminophen (Tylenol) 650 mg PO UNSCH PRN PRN Reason: SEE LABEL COMMENTS Chlorhexidine Gluconate (Chlorhexidine 2% Cloth) 3 pack TOPICAL DAILY@0400 [facility] Stop: 04/24/18 03:59 Last Admin: 04/19/18 04:40 Dose: 3 pack Chlorhexidine Gluconate (Chlorhexidine 2% Cloth) 1 pack TOPICAL DAILY@0400 PRN PRN Reason: Extra cloth needed Stop: 04/24/18 03:59 Clonidine HCl (Catapres) 0.1 mg PO UNSCH PRN PRN Reason: SEE LABEL COMMENTS Epoetin Camilo (Epogen Inj) 10,000 unit IV.PUSH UNSCH PRN PRN Reason: SEE LABEL COMMENTS Last Admin: 04/18/18 11:27 Dose: 10,000 unit Gelatin (Gelfoam 12 Mm/7 Mm Topical) 1 foam TOPICAL PRN PRN PRN Reason: help stop bleeding from site Last Admin: 04/18/18 11:28 Dose: 1 foam Gentamicin Sulfate (Gentamicin Inj) 20 mg OTHER WITH DIALYSIS PRN PRN Reason: Dwell Gentamycin Lock Heparin Sodium (Porcine) (Heparin Inj) 8,000 units OTHER WITH DIALYSIS PRN PRN Reason: for machine prime Heparin Sodium (Porcine) (Heparin Inj) 1,000 units OTHER WITH DIALYSIS PRN PRN Reason: Dwell Heparin to Fill Catheter Cefepime HCl 2,000 mg/ Sodium (Chloride) 100 mls @ 200 mls/hr IV.SIG Q24H [facility] Last Infusion: 04/18/18 16:34 Dose: Infused Albumin Human (Flexbumin 25% Inj) 100 mls @ 60 mls/hr IV.SIG WITH DIALYSIS PRN PRN Reason: hypotension / volume replace Last Infusion: 04/18/18 10:25 Dose: Infused Sodium Chloride (Ns Inj) 1,000 mls @ 200 mls/hr OTHER .Q5H PRN PRN Reason: for dialyzer flush PRN Sodium Chloride (Ns Inj) 1,000 mls @ 0 mls/hr IV.CONT .Q0M PRN PRN Reason: hypotension / volume replace Sodium Chloride (Ns Inj) 1,000 mls @ 0 mls/hr OTHER .Q0M PRN PRN Reason: for prime and rinse back Fosphenytoin Sodium 200 mgpe/ (Sodium Chloride) 54 mls @ 216 mls/hr IV.SIG Q12H [facility] Last Infusion: 04/19/18 00:37 Dose: Infused Valproate Sodium 500 mg/ (Sodium Chloride) 105 mls @ 105 mls/hr IV.SIG Q8HR [facility] Mannitol (Mannitol Inj) 12.5 gm IV.PUSH UNSCH PRN PRN Reason: hypotension / volume replace Mupirocin (Bactroban 2% Nasal Oint) 1 applicatio EACH NARE BID [facility] Stop: 04/23/18 09:01 Last Admin: 04/18/18 23:53 Dose: 1 applicatio Nitroglycerin (Nitrostat Sl) 0.4 mg SL Q5M PRN PRN Reason: CHEST PAIN Ondansetron HCl (Zofran Inj) 4 mg IV.PUSH Q6H PRN PRN Reason: NAUSEA OR VOMITING Ondansetron HCl (Zofran Inj) 4 mg IV.PUSH UNSCH PRN PRN Reason: NAUSEA OR VOMITING Pantoprazole Sodium (Protonix Inj) 40 mg IV.PUSH DAILY [facility] Senna/Docusate Sodium (Radha-Colace) 1 tab PO BID [facility] Last Admin: 04/18/18 20:45 Dose: 1 tab Sodium Chloride (Ns Flush) 2 ml IV.FLUSH BID [facility] Last Admin: 04/18/18 20:45 Dose: 2 ml Sodium Chloride (Ns Flush) 2 ml IV.FLUSH PRN PRN PRN Reason: FLUSH AFTER USING IV ACCESS Sodium Chloride (Ns Flush) 5 ml IV.FLUSH PRN PRN PRN Reason: flush each lumen during HD Allergies/Adverse Reactions: Allergies Allergy/AdvReac Type Severity Reaction Status Date / Time methadone Allergy Severe Anaphylaxis Verified 01/24/18 23:08 acetaminophen Allergy Unknown Anaphylaxis Verified 01/24/18 23:08 propoxyphene Allergy Unknown Anaphylaxis Verified 01/24/18 23:08 Review of Systems unobtainable due to mental status Physical Exam Vital signs: Vital Signs 04/18/18 16:00 04/18/18 17:28 04/18/18 18:00 Temperature 98.7 F Pulse Rate 109 H 128 H 123 H Respiratory Rate 22 39 H 36 H Blood Pressure 116/67 Pulse Oximetry 100 96 96 04/18/18 19:00 04/18/18 20:00 04/18/18 20:44 Temperature Pulse Rate 113 H 109 H 105 H Respiratory Rate 14 19 23 Blood Pressure 113/75 Pulse Oximetry 97 96 98 04/18/18 21:00 04/18/18 21:03 04/18/18 22:00 Temperature Pulse Rate 112 H 107 H 102 H Respiratory Rate 21 13 17 Blood Pressure 114/74 111/69 Pulse Oximetry 96 97 94 L 04/18/18 22:46 04/18/18 23:00 04/19/18 00:00 Temperature 98.8 F Pulse Rate 109 H 114 H 101 H Respiratory Rate 26 H 30 H 25 H Blood Pressure 112/71 113/70 91/58 L Pulse Oximetry 98 98 99 04/19/18 01:00 04/19/18 02:00 04/19/18 03:00 Temperature Pulse Rate 117 H 126 H 110 H Respiratory Rate 20 35 H 13 Blood Pressure 125/78 119/70 92/55 L Pulse Oximetry 98 92 L 98 04/19/18 04:00 04/19/18 05:00 04/19/18 06:00 Temperature 97.6 F Pulse Rate 111 H 115 H 101 H Respiratory Rate 13 13 27 H Blood Pressure 98/59 L 101/64 88/59 L Pulse Oximetry 93 L 94 L 98 Intake & Output 04/18/18 04/19/18 04/19/18 18:59 06:59 18:59 Intake Total 370 / 370 159 / 159 Output Total 1000 / 1000 0 / 0 Balance -630 / -630 159 / 159 Weight 65 kg Intake: IV 370 / 370 159 / 159 Protonix Inj 80 MG In NS Inj 100 / 100 100 ML @ 10 mls/hr IV.CONT Q10H [facility] Rx#:[id number] Flexbumin 25% Inj 100 ML @ 60 100 / 100 mls/hr IV.SIG WITH DIALYSIS PRN Rx#:[id number] Maxipime Inj 2,000 MG In NS Inj 100 / 100 100 ML @ 200 mls/hr IV.SIG Q24H [facility] Rx#:[id number] Cerebyx Inj 200 MGPE In NS Inj 54 / 54 50 ML @ 216 mls/hr IV.SIG Q12H [facility] Rx#:[id number] Cerebyx Inj 1,000 MGPE In NS 70 / 70 Inj 50 ML @ 280 mls/hr IV.SIG ONCE ONE Rx#:[id number] Depacon Inj 500 MG In NS Inj 105 / 105 100 ML @ 105 mls/hr IV.SIG Q8HR [facility] Rx#:[id number] Output: Urine 0 / 0 Hemodialysis Amount 1000 / 1000 Other: Date of Last Bowel Movement 04/18/18 04/16/18 # Bowel Movements 0 Narrative: GENERAL: in NAD, SKIN: Warm and dry. HEAD: Atraumatic. EYES: Sluggish ENT: No nasal bleeding or discharge. NECK: Trachea midline. No JVD. CARDIOVASCULAR: Regular rate and rhythm. RESPIRATORY: No accessory muscle use. GASTROINTESTINAL: Abdomen soft, non-tender, PEG tube MUSCULOSKELETAL: Contracture NEUROLOGICAL: Lethargic, opens eyes, not following, no involuntary movements increased tone left greater than right hemiparesis, fingers contracted PSYCHIATRIC: Somnolent - Constitutional no acute distress Objective Laboratory Results - last 24 hr 04/18/18 04/18/18 04/18/18 13:01 13:24 13:24 WBC 9.9 RBC 3.19 L Hgb 9.6 L POC Hgb (Calc) 10.5 L Hct 28.7 L POC Hct 31.0 L MCV 89.9 MCH 29.9 MCHC 33.3 RDW 18.0 H Plt Count 254 MPV 7.8 Neut % (Auto) 84.3 H Lymph % (Auto) 6.6 L [place] % (Auto) 8.4 H Eos % (Auto) 0.3 Baso % (Auto) 0.4 Neut # (Auto) 8.3 H Lymph # (Auto) 0.7 L [place] # (Auto) 0.8 Eos # (Auto) 0.0 Baso # (Auto) 0.0 WBC Differential . Differential Comment Auto diff final PT INR APTT Fibrinogen POC Sodium 141 Sodium 139 POC Potassium 4.5 Potassium 4.5 POC Chloride 99 L Chloride 99 Carbon Dioxide 25.9 Anion Gap 14 POC BUN 14 BUN 14 Creatinine 3.92 H POC Creatinine 3.9 H Estimated GFR 19 L POC Glucose 144 H 140 H Random Glucose 145 H Calcium 9.3 Magnesium Total Creatine Kinase Troponin I Nasal Screen MRSA (PCR) Phenytoin Valproic Acid Blood Type Antibody Screen 04/18/18 04/18/18 04/18/18 17:00 18:39 18:39 WBC 13.7 H RBC 3.24 L Hgb 9.1 L POC Hgb (Calc) Hct 29.3 L POC Hct MCV 90.7 MCH 28.1 MCHC 31.0 L RDW 18.2 H Plt Count 279 MPV 8.0 Neut % (Auto) 87.2 H Lymph % (Auto) 3.9 L [place] % (Auto) 8.6 H Eos % (Auto) 0.0 Baso % (Auto) 0.3 Neut # (Auto) 11.9 H Lymph # (Auto) 0.5 L [place] # (Auto) 1.2 H Eos # (Auto) 0.0 Baso # (Auto) 0.0 WBC Differential . Differential Comment Auto diff final PT 12.7 H INR 1.3 APTT 39.0 H Fibrinogen 510 H POC Sodium Sodium POC Potassium Potassium POC Chloride Chloride Carbon Dioxide Anion Gap POC BUN BUN Creatinine POC Creatinine Estimated GFR POC Glucose Random Glucose Calcium Magnesium Total Creatine Kinase Troponin I Nasal Screen MRSA (PCR) Mrsa detected Phenytoin Valproic Acid Blood Type Antibody Screen 04/18/18 04/18/18 04/18/18 18:39 18:39 18:39 WBC RBC Hgb POC Hgb (Calc) Hct POC Hct MCV MCH MCHC RDW Plt Count MPV Neut % (Auto) Lymph % (Auto) Canyon % (Auto) Eos % (Auto) Baso % (Auto) Neut # (Auto) Lymph # (Auto) [place] # (Auto) Eos # (Auto) Baso # (Auto) WBC Differential Differential Comment PT INR APTT Fibrinogen POC Sodium Sodium POC Potassium Potassium POC Chloride Chloride Carbon Dioxide Anion Gap POC BUN BUN Creatinine POC Creatinine Estimated GFR POC Glucose Random Glucose Calcium Magnesium 2.3 Total Creatine Kinase 36 L Troponin I Less than 0.02 L Nasal Screen MRSA (PCR) Phenytoin Valproic Acid Blood Type B Positive Antibody Screen Negative 04/18/18 04/19/18 04/19/18 18:39 05:47 05:47 WBC 10.6 RBC 3.26 L Hgb 9.5 L POC Hgb (Calc) Hct 29.6 L POC Hct MCV 90.9 MCH 29.1 MCHC 32.0 RDW 18.7 H Plt Count 265 MPV 8.6 Neut % (Auto) Lymph % (Auto) Canyon % (Auto) Eos % (Auto) Baso % (Auto) Neut # (Auto) Lymph # (Auto) [place] # (Auto) Eos # (Auto) Baso # (Auto) WBC Differential Differential Comment PT INR APTT Fibrinogen POC Sodium Sodium 141 POC Potassium Potassium 3.8 POC Chloride Chloride 101 Carbon Dioxide 26.7 Anion Gap 13 POC BUN BUN 22 H Creatinine 5.67 H POC Creatinine Estimated GFR 12 L POC Glucose Random Glucose 189 H Calcium 9.4 Magnesium Total Creatine Kinase Troponin I Nasal Screen MRSA (PCR) Phenytoin 11.4 Valproic Acid 9 L Blood Type Antibody Screen Microbiology 04/14/18 04:10 Aerobic Blood Culture - Preliminary Blood - Peripheral No growth in 4 days Anaerobic Blood Culture - Preliminary No growth in 4 days 04/14/18 04:15 Aerobic Blood Culture - Preliminary Blood - Peripheral No growth in 4 days Anaerobic Blood Culture - Preliminary No growth in 4 days Review/Management - Diagnosis (1) Seizure Code(s): R56.9 - Unspecified convulsions Status: Acute Current Visit: Yes (2) Chronic ischemic right [place] stroke Code(s): I69.30 - Unspecified sequelae of cerebral infarction Status: Acute Current Visit: Yes (3) Chronic ischemic right [place] stroke Code(s): I69.30 - Unspecified sequelae of cerebral infarction Status: Acute Current Visit: Yes (4) Chronic ischemic left MCA stroke Code(s): I69.30 - Unspecified sequelae of cerebral infarction Status: Acute Current Visit: Yes (5) End stage renal disease on dialysis Code(s): N18.6 - End stage renal disease; Z99.2 - Dependence on renal dialysis Status: Acute Current Visit: No (6) Syncope Code(s): R55 - Syncope and collapse Status: Acute Current Visit: No (7) Anemia Code(s): D64.9 - Anemia, unspecified Status: Acute Current Visit: No - Review/Management Plan: Seizure activity High risk for seizure with previous chronic strokes; dialysis, in addition to metabolic abnormalities GI bleed Dilantin 11.4, Depakote level 9 Recommendations Continue IV Celebrex, IV Depakote Follow-up EEG today Correct any electrolyte abnormalities including magnesium calcium-defer to renal Antiplatelet agent when feasible Prognosis guarded with multiple medical comorbidities and severe previous neurologic injury (6) Syncope Qualifiers: Syncope type: unspecified Qualified Code(s): R55 - Syncope and collapse
[2018-04-19] MEDS: Mupirocin 2% Nasal Oint Topical Syringe EACH NARE SCH ×2 (08:43→21:50)
[2018-04-19] MEDS: Senna/Docusate Sodium 8.6/50 MG Tablet PO SCH (08:43)
[2018-04-19] MEDS: Pantoprazole Inj 40 MG Vial IV.PUSH SCH (08:44)
--- NOTE | 2018-04-19 12:09 | P.PNIM ---
Subjective Interval history: Per RN, patient is still seizing on EEG. He appears calm today but is still nonresponsive and noninteractive. I do not see any shaking activities. I discussed and updated his daughter Belle over the phone. Physical Exam Vital signs: Vital Signs 04/18/18 16:00 04/18/18 17:28 04/18/18 18:00 Temperature 98.7 F Pulse Rate 109 H 128 H 123 H Respiratory Rate 22 39 H 36 H Blood Pressure 116/67 Pulse Oximetry 100 96 96 04/18/18 19:00 04/18/18 20:00 04/18/18 20:44 Temperature Pulse Rate 113 H 109 H 105 H Respiratory Rate 14 19 23 Blood Pressure 113/75 Pulse Oximetry 97 96 98 04/18/18 21:00 04/18/18 21:03 04/18/18 22:00 Temperature Pulse Rate 112 H 107 H 102 H Respiratory Rate 21 13 17 Blood Pressure 114/74 111/69 Pulse Oximetry 96 97 94 L 04/18/18 22:46 04/18/18 23:00 04/19/18 00:00 Temperature 98.8 F Pulse Rate 109 H 114 H 101 H Respiratory Rate 26 H 30 H 25 H Blood Pressure 112/71 113/70 91/58 L Pulse Oximetry 98 98 99 04/19/18 01:00 04/19/18 02:00 04/19/18 03:00 Temperature Pulse Rate 117 H 126 H 110 H Respiratory Rate 20 35 H 13 Blood Pressure 125/78 119/70 92/55 L Pulse Oximetry 98 92 L 98 04/19/18 04:00 04/19/18 05:00 04/19/18 06:00 Temperature 97.6 F Pulse Rate 111 H 115 H 101 H Respiratory Rate 13 13 27 H Blood Pressure 98/59 L 101/64 88/59 L Pulse Oximetry 93 L 94 L 98 Intake & Output 04/18/18 04/19/18 04/19/18 18:59 06:59 18:59 Intake Total 370 / 370 159 / 159 Output Total 1000 / 1000 0 / 0 Balance -630 / -630 159 / 159 Weight 65 kg Intake: IV 370 / 370 159 / 159 Protonix Inj 80 MG In NS Inj 100 / 100 100 ML @ 10 mls/hr IV.CONT Q10H [facility] Rx#:[id number] Flexbumin 25% Inj 100 ML @ 60 100 / 100 mls/hr IV.SIG WITH DIALYSIS PRN Rx#:[id number] Maxipime Inj 2,000 MG In NS Inj 100 / 100 100 ML @ 200 mls/hr IV.SIG Q24H [facility] Rx#:[id number] Cerebyx Inj 200 MGPE In NS Inj 54 / 54 50 ML @ 216 mls/hr IV.SIG Q12H [facility] Rx#:[id number] Cerebyx Inj 1,000 MGPE In NS 70 / 70 Inj 50 ML @ 280 mls/hr IV.SIG ONCE ONE Rx#:[id number] Depacon Inj 500 MG In NS Inj 105 / 105 100 ML @ 105 mls/hr IV.SIG Q8HR [facility] Rx#:[id number] Output: Urine 0 / 0 Hemodialysis Amount 1000 / 1000 Other: Date of Last Bowel Movement 04/18/18 04/16/18 # Bowel Movements 0 Narrative: GENERAL: Patient is nonresponsive. Does not interact EYES: Pupils very slow to react CARDIOVASCULAR: Normal rate. Regular rhythm. No murmur, no gallops, no rubs. RESPIRATORY: Clear and equal to auscultation bilaterally. No crackles, no wheezes. No accessory muscle use. GASTROINTESTINAL: Abdomen soft,nondistended. PEG in place. MUSCULOSKELETAL: Contractures of upper and lower extremities NEUROLOGICAL: Non responsive. Does not follow commands. Contractures consistent with history of CVA and subsequent paralysis. Results Labs CBC & Chem 7: 04/19/18 05:47 04/19/18 05:47 Labs: Microbiology 04/14/18 04:10 Blood - Peripheral Aerobic Blood Culture - Final No growth in 5 days 04/14/18 04:10 Blood - Peripheral Anaerobic Blood Culture - Final No growth in 5 days 04/14/18 04:15 Blood - Peripheral Aerobic Blood Culture - Final No growth in 5 days 04/14/18 04:15 Blood - Peripheral Anaerobic Blood Culture - Final No growth in 5 days Imaging Imaging: Impressions Head CT 04/18/18 13:35 CONCLUSION: 1. No acute intracranial abnormality. 2. Remote infarcts in the right anterior MCA and [employer] territories as well as the left cerebral hemisphere. Report was called by Dr. Mcelroy to Dr. Starr at 1349 PM.. Head CTA 04/18/18 13:35 CONCLUSION: 1. Occlusion of temporal and distal M2 branches of the right MCA territory consistent with patient's history of right MCA territory infarction. 2. More proximal right MCA branches are intact. 3. Remaining anterior circulation appears intact. Report was called by Dr. Mcelroy to Dr. Starr at 1407 PM.. Neck CTA 04/18/18 13:35 CONCLUSION: 1. Right Carotid: No hemodynamically significant stenosis. 2. Left Caortid: No hemodynamically significant stenosis. Report was called by Dr. Mcelroy to Dr. Starr at 1407 p.m.. Assessment and Plan (1) Seizure: Code(s): R56.9 - Unspecified convulsions Status: Acute (2) Chronic ischemic right [place] stroke: Code(s): I69.30 - Unspecified sequelae of cerebral infarction Status: Acute (3) Chronic ischemic right [employer] stroke: Code(s): I69.30 - Unspecified sequelae of cerebral infarction Status: Acute (4) Chronic ischemic left MCA stroke: Code(s): I69.30 - Unspecified sequelae of cerebral infarction Status: Acute (5) End stage renal disease on dialysis: Code(s): N18.6 - End stage renal disease; Z99.2 - Dependence on renal dialysis Status: Acute (6) Syncope: Code(s): R55 - Syncope and collapse Status: Acute (7) Anemia: Code(s): D64.9 - Anemia, unspecified Status: Acute Plan 62-year-old male with history of CVA, quadriplegia, end-stage renal disease on hemodialysis, PEG dependent admitted with upper GI bleeding. On 04/18/18, the patient was noted to be unresponsive. A stroke alert was called. He was later found to be in status epilepticus. He has been transferred to the ICU. Seizures: -Appreciate neurology following. -On IV Celebrex and Depakote. -Follow-up EEG. Prognosis is guarded given multiple comorbid conditions and previous severe neurological injuries. -MRI pending. Upper GI bleed w/ anemia Patient presented to the ER with chest pain and bright red blood in emesis Patient was seen 4 months ago for the same thing, esophagitis present at that time, normal gastric mucosa EGD was scheduled but the patient initially refused and subsequently has been having seizures and unable to participate. GI has been following but signed off and recommended outpatient EGD. H&H stable Continue Protonix h/o PEG tube EGD to be done outpatient per GI. Resume tube feeding today. He has been n.p.o. We will give a total of 1 L of IV fluid. ESRD w/ dialysis Nephrology following for ongoing dialysis treatments Type 2 diabetes Accu-Cheks with sliding scale insulin coverage Functional quadriplegia, history of CVA Patient has contractures and deficits consistent with previous CVA. He is now having seizures and is nonresponsive, noninteractive. He is not back at baseline yet. Unfortunately he has significant previous neurological injuries. h/o CAD Has been asymptomatic since admission. Continue to monitor. h/o schizophrenia Appears stable for now DVT prophylaxis SCDs, chemoprophylaxis held due to upper GI bleed I discussed the case with the patient's daughter and healthcare surrogate Belle. She confirmed that he is a DNR. Unfortunately his prognosis is guarded given the history of significant neurological injuries. He is PEG dependent. Consult palliative care to assist with goals of care. Keep in the ICU for today given persistent seizures. Progress Note: Quality VTE Deep Vein Thrombosis/Pulmonary Embolism Present on Admission: No _ (1) Anemia Qualifiers: Anemia type: Bone marrow failure anemia type: Chronic kidney disease stage : Folate deficiency anemia type: Hemolytic anemia type: Iron deficiency anemia type: Other causes of anemia: Vitamin B12 deficiency anemia type: (2) Syncope Qualifiers: Encounter type: Syncope type: unspecified Qualified Code(s): R55 - Syncope and collapse
[2018-04-19] MEDS ORDERED: Dextrose 5%/NaCl 0.9% Inj 1,000 ML IV.CONT SCH (12:15)
--- NOTE | 2018-04-19 14:26 | P.CONPAL ---
Consult Service: Palliative Care Requesting Physician: Annabel Romeo Reason for Consult: a. To assist with evaluation and management of symptoms including: Shortness of breath. b. To assist medical decision maker(s) with: better understanding of current medical conditions; weighing benefits/burdens of medical treatment options; making medical treatment decisions. Primary Care Provider: UNKNOWN History of Present Illness History of Present Illness: Mr. 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 Patient is a resident of [facility], presented to ED via EMS on 04/14 with onset of chest pain and hemoptysis of bright red blood. Patient with history of chronic coffee-ground emesis with prior workup in December 2017 revealing esophagitis. Chest x-ray revealing mild infiltrates. Abdomen/pelvis CT negative for acute findings. It is workup revealing hemoglobin of 10.5, BUN/creatinine 21/4.0, alk phos 283. UA negative for nitrite, moderate leukocyte. Patient was admitted for further monitoring and management. Nephrology consulted on 04/14 in the setting of end-stage renal disease on dialysis 3 times per week. GI consulted 04/14 in the setting of GI bleed. Patient with history of chronic GI bleed, last EGD 01/25/18 reveal class B esophagitis, negative colonoscopy 01/27/18. Patient presented alert and oriented, refused EGD at that time. Patient was continue with medical management to include PPI drip. Clinical course complicated on 04/18 in the setting of altered mental status, becoming unresponsive with seizure-like activity during dialysis. Stroke alert was called. Neurology consulted, EEG showing seizure activity. 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 Head CTA revealing occlusion of temporal and distal M2 branches of the right MCA territory consistent with patient's history of right MCA infarct. Patient was given Ativan in addition to IV Celebrex and Depakote. As per neurology, prognosis guarded with multiple medical comorbidities and severe previous neurological injury. Palliative care has been consulted for further clarifications of goals of care given the above. Patient known to palliative care services from prior admission in October 2016. Patient seen in medical ICU, unresponsive to verbal or tactile stimuli. Moving bilateral lower extremities spontaneously but not to command. O2 via nasal cannula, patient nonverbal. Plan for MRI of the head, however remains pending in the setting of persistent seizure activity. Laboratory workup today revealed WBC 10.6, Hgb 9.5. BUN/creatinine 22/5.67. Sodium, potassium and magnesium within normal limits. Patient on contact precaution in the setting of MRSA in the nares. Urinary culture positive for Tamera albicans. Patient febrile, tachycardia with heart rate in the 110s. SBP in the low 90s. Currently tolerating O2 via nasal cannula 2 L, oxygen saturation in the mid 90s. Patient's Sister Radha at bedside. Telephone conversation with patient's daughter Belle/JERSON who is currently in [place]. Reviewed the role of palliative care and advanced illness in regards to symptom management as well as support surrounding goals of care and advanced care planning. Family receptive to palliative care conversation. Reviewed patient's past medical history and psychosocial history. Reviewed events leading to this hospitalization, clinical course and current medical management. Sure concerns of patient current clinical condition in the setting of multiple medical comorbidities and severe previous neurological injury. Confirm DNR/DNI CODE STATUS. Patient's daughter to drive from [place] this evening, receptive to meeting with palliative care tomorrow morning 04/20 at 10 AM. Hospice philosophy and benefits reviewed in the setting of poor prognosis. Palliative care received phone call from daughter requested hospice referral; reviewed with daughter that hemodialysis would be then discontinued. Daughter wishes to further discuss with additional family members before making a final decisions. Daughter appears receptive to comfort-directed care. Received second telephone call from patient's daughter Hiren requests an informative visit with [facility]. Referral has been sent. Case discussed with bedside RN Enma. Function/Cognitive Trajectory: Patient rested in a long-term facility [facility] since 2012. Resident of long-term facility since second stroke in 2008 leaving him bedbound. First stroke in 2005. Patient requiring assistance with all ADLs, feedings via GJ tube. Patient requiring Teresita lift to transfer from bed to wheelchair. Verbal and able to communicate needs prior to this acute event. Review of Systems unobtainable due to mental condition PMFSH - History History Provided By: Patient, Family Member, Medical Record - Medical History Medical History: Medical History (Last Updated 04/19/18 @ 08:24 by Adia Conner) History of ESBL Klebsiella pneumoniae infection History of MRSA infection AV (arteriovenous fistula) Anxiety Benign prostatic hyperplasia Bipolar disorder Cerebral infarction Chronic kidney disease Contracture, left hand Dysphagia Dysphagia, oropharyngeal phase End stage renal disease Esophagitis Gastroesophageal reflux disease Heart failure Hyperlipidemia Hypothyroidism Iron deficiency anemia Mood disorder Muscle weakness Osteoporosis Peripheral vascular disease Renal dialysis status Schizophrenia Type 2 diabetes mellitus - Surgical History Surgical History: Surgical History (Last Reviewed 04/19/18 @ 08:10 by Jd Garcia) H/O cardiac catheterization - Family History Family History: Family History (Last Updated 04/19/18 @ 14:11 by Carmelita Estrada APRN) Other Hypertension - Tobacco History Second Hand Smoke Exposure: No Smoking Status: Former smoker Tobacco Type: Cigarettes - Alcohol History How Often Do You Have a Drink Containing Alcohol: Never - Substance Use History Substance History: No History of Abuse - Travel History History of Recent Travel: No Recent Travel in the [place] Within the Last 8 Weeks: No Recent Travel Out of the Country Within the Last 8 Weeks: No - Immunization History Tetanus Immunization: >5 Years Medications and Allergies Active Medications: Active Medications Acetaminophen (Tylenol) 650 mg PO UNSCH PRN PRN Reason: SEE LABEL COMMENTS Chlorhexidine Gluconate (Chlorhexidine 2% Cloth) 3 pack TOPICAL DAILY@0400 FLAQUITA Stop: 04/24/18 03:59 Last Admin: 04/19/18 04:40 Dose: 3 pack Chlorhexidine Gluconate (Chlorhexidine 2% Cloth) 1 pack TOPICAL DAILY@0400 PRN PRN Reason: Extra cloth needed Stop: 04/24/18 03:59 Clonidine HCl (Catapres) 0.1 mg PO UNSCH PRN PRN Reason: SEE LABEL COMMENTS Epoetin Camilo (Epogen Inj) 10,000 unit IV.PUSH UNSCH PRN PRN Reason: SEE LABEL COMMENTS Last Admin: 04/18/18 11:27 Dose: 10,000 unit Gelatin (Gelfoam 12 Mm/7 Mm Topical) 1 foam TOPICAL PRN PRN PRN Reason: help stop bleeding from site Last Admin: 04/18/18 11:28 Dose: 1 foam Gentamicin Sulfate (Gentamicin Inj) 20 mg OTHER WITH DIALYSIS PRN PRN Reason: Dwell Gentamycin Lock Heparin Sodium (Porcine) (Heparin Inj) 8,000 units OTHER WITH DIALYSIS PRN PRN Reason: for machine prime Heparin Sodium (Porcine) (Heparin Inj) 1,000 units OTHER WITH DIALYSIS PRN PRN Reason: Dwell Heparin to Fill Catheter Cefepime HCl 2,000 mg/ Sodium (Chloride) 100 mls @ 200 mls/hr IV.SIG Q24H [facility] Last Admin: 04/19/18 12:59 Dose: 200 mls/hr Albumin Human (Flexbumin 25% Inj) 100 mls @ 60 mls/hr IV.SIG WITH DIALYSIS PRN PRN Reason: hypotension / volume replace Last Infusion: 04/18/18 10:25 Dose: Infused Sodium Chloride (Ns Inj) 1,000 mls @ 200 mls/hr OTHER .Q5H PRN PRN Reason: for dialyzer flush PRN Sodium Chloride (Ns Inj) 1,000 mls @ 0 mls/hr IV.CONT .Q0M PRN PRN Reason: hypotension / volume replace Sodium Chloride (Ns Inj) 1,000 mls @ 0 mls/hr OTHER .Q0M PRN PRN Reason: for prime and rinse back Fosphenytoin Sodium 200 mgpe/ (Sodium Chloride) 54 mls @ 216 mls/hr IV.SIG Q12H [facility] Last Admin: 04/19/18 12:09 Dose: 216 mls/hr Valproate Sodium 500 mg/ (Sodium Chloride) 105 mls @ 105 mls/hr IV.SIG Q8HR [facility] Dextrose/Sodium Chloride (D5w/Normal Saline Inj) 1,000 mls @ 100 mls/hr IV.CONT .Q10H [facility] Stop: 04/19/18 22:14 Last Admin: 04/19/18 13:01 Dose: 100 mls/hr Mannitol (Mannitol Inj) 12.5 gm IV.PUSH UNSCH PRN PRN Reason: hypotension / volume replace Mupirocin (Bactroban 2% Nasal Oint) 1 applicatio EACH NARE BID [facility] Stop: 04/23/18 09:01 Last Admin: 04/19/18 08:43 Dose: 1 applicatio Nitroglycerin (Nitrostat Sl) 0.4 mg SL Q5M PRN PRN Reason: CHEST PAIN Ondansetron HCl (Zofran Inj) 4 mg IV.PUSH Q6H PRN PRN Reason: NAUSEA OR VOMITING Ondansetron HCl (Zofran Inj) 4 mg IV.PUSH UNSCH PRN PRN Reason: NAUSEA OR VOMITING Pantoprazole Sodium (Protonix Inj) 40 mg IV.PUSH DAILY [facility] Last Admin: 04/19/18 08:44 Dose: 40 mg Sodium Chloride (Ns Flush) 2 ml IV.FLUSH BID [facility] Last Admin: 04/19/18 08:44 Dose: 2 ml Sodium Chloride (Ns Flush) 2 ml IV.FLUSH PRN PRN PRN Reason: FLUSH AFTER USING IV ACCESS Sodium Chloride (Ns Flush) 5 ml IV.FLUSH PRN PRN PRN Reason: flush each lumen during HD Allergies Allergy/AdvReac Type Severity Reaction Status Date / Time methadone Allergy Severe Anaphylaxis Verified 01/24/18 23:08 acetaminophen Allergy Unknown Anaphylaxis Verified 01/24/18 23:08 propoxyphene Allergy Unknown Anaphylaxis Verified 01/24/18 23:08 Home Medications Medication Instructions Recorded Confirmed Type ascorbic acid (vitamin C) [Vitamin 500 mg FEEDING TUBE BID 09/14/17 04/14/18 History C] bisacodyl 5 mg FEEDING TUBE TID PRN 09/14/17 04/14/18 History escitalopram oxalate 10 mg FEEDING TUBE DAILY 09/14/17 04/14/18 History gabapentin 200 mg FEEDING TUBE HS 09/14/17 04/14/18 History lamotrigine [Lamictal] 200 mg PO HS 09/14/17 04/14/18 History multivitamin 1 tab FEEDING TUBE DAILY 09/14/17 04/14/18 History polyethylene glycol 3350 17 g FEEDING TUBE DAILY 09/14/17 04/14/18 History risperidone 0.5 mg FEEDING TUBE BID 09/14/17 04/14/18 History sevelamer carbonate [Renvela] 2,400 mg FEEDING TUBE AC 09/14/17 04/14/18 History trazodone 150 mg FEEDING TUBE HS 09/14/17 04/14/18 History insulin glargine [Lantus U-100 10 unit SUB-Q DAILY 11/18/17 04/14/18 History Insulin] lovastatin 20 mg FEEDING TUBE DAILY 11/18/17 04/14/18 History Lactobacillus 1 cap FEEDING TUBE BID 04/14/18 History ferrous sulfate 5.4 ml FEEDING TUBE TID 04/14/18 04/14/18 History insulin aspart U-100 1 sliding scale dose SUBCUT HS 04/14/18 04/14/18 History lactulose [Enulose] 30 ml FEEDING TUBE DAILY PRN 04/14/18 04/14/18 History melatonin 3 mg FEEDING TUBE HS 04/14/18 04/14/18 History metoclopramide HCl [Reglan] 5 mg FEEDING TUBE Q6H PRN 04/14/18 04/14/18 History Advance Directives Living Will: No Healthcare Surrogate: Yes Health Care Surrogate Name and Number: Daughter Belle White . Power of Regional Hr Manager Relationship to Patient: Children Today's verbally stated goals: Goals aggressive short of NO code. Physical Exam Vital Signs: Vital Signs - 24 hr 04/18/18 16:00 04/18/18 17:28 04/18/18 18:00 Temperature 98.7 F Pulse Rate 109 H 128 H 123 H Respiratory Rate 22 39 H 36 H Blood Pressure 116/67 Pulse Oximetry 100 96 96 04/18/18 19:00 04/18/18 20:00 04/18/18 20:44 Temperature Pulse Rate 113 H 109 H 105 H Respiratory Rate 14 19 23 Blood Pressure 113/75 Pulse Oximetry 97 96 98 04/18/18 21:00 04/18/18 21:03 04/18/18 22:00 Temperature Pulse Rate 112 H 107 H 102 H Respiratory Rate 21 13 17 Blood Pressure 114/74 111/69 Pulse Oximetry 96 97 94 L 04/18/18 22:46 04/18/18 23:00 04/19/18 00:00 Temperature 98.8 F Pulse Rate 109 H 114 H 101 H Respiratory Rate 26 H 30 H 25 H Blood Pressure 112/71 113/70 91/58 L Pulse Oximetry 98 98 99 04/19/18 01:00 04/19/18 02:00 04/19/18 03:00 Temperature Pulse Rate 117 H 126 H 110 H Respiratory Rate 20 35 H 13 Blood Pressure 125/78 119/70 92/55 L Pulse Oximetry 98 92 L 98 04/19/18 04:00 04/19/18 05:00 04/19/18 06:00 Temperature 97.6 F Pulse Rate 111 H 115 H 101 H Respiratory Rate 13 13 27 H Blood Pressure 98/59 L 101/64 88/59 L Pulse Oximetry 93 L 94 L 98 04/19/18 07:00 Temperature Pulse Rate Respiratory Rate Blood Pressure Pulse Oximetry 96 I&O: Intake & Output 04/17/18 04/18/18 04/19/18 04/20/18 06:59 06:59 06:59 06:59 Intake Total 1160 / 1160 300 / 300 529 / 529 Output Total 0 / 0 1000 / 1000 Balance 1160 / 1160 300 / 300 -471 / -471 Weight 74.843 kg 65 kg Physical Exam: CONSTITUTIONAL/GENERAL: This is an thin, elderly male sitting in bed in no acute distress. Ill looking. TUBES/LINES/DRAINS: PIV, nasal cannula. GJ tube. SKIN: No jaundice, rashes, or lesions. No wounds seen anteriorly. Skin temperature appropriate. Not diaphoretic. Bilateral lower extremities with dry/ scaly skin. HEAD: Atraumatic. Normocephalic. EYES: Pupils equal and round and reactive. No scleral icterus. No injection or drainage. Fundi not examined. ENT: Hearing grossly normal. Nose without bleeding or purulent drainage. Dry lips. NECK: Trachea midline. Supple, nontender. CARDIOVASCULAR: Regular rate and rhythm. Peripheral pulses symmetric. RESPIRATORY/CHEST: Symmetric, unlabored respirations. Coarse breath sounds bilaterally. O2 via nasal cannula. GASTROINTESTINAL: Abdomen soft, non-tender, nondistended. Bowel sounds present. GJ tube in place. GENITOURINARY: Without palpable bladder distension. MUSCULOSKELETAL: Extremities without clubbing, cyanosis, or edema. No mottling or clubbing. Significant muscle atrophy to all 4 extremities. NEUROLOGICAL: Eyes open. Not tracking or following commands. Moving all 4 extremities spontaneously. PSYCHIATRIC: Appears calm. Unable to evaluate further given clinical condition. Diagnostic Tests Laboratory: Laboratory Results - last 72 hr 04/18/18 04/18/18 04/18/18 13:01 13:24 13:24 WBC 9.9 RBC 3.19 L Hgb 9.6 L POC Hgb (Calc) 10.5 L Hct 28.7 L POC Hct 31.0 L MCV 89.9 MCH 29.9 MCHC 33.3 RDW 18.0 H Plt Count 254 MPV 7.8 Neut % (Auto) 84.3 H Lymph % (Auto) 6.6 L Bay % (Auto) 8.4 H Eos % (Auto) 0.3 Baso % (Auto) 0.4 Neut # (Auto) 8.3 H Lymph # (Auto) 0.7 L Bay # (Auto) 0.8 Eos # (Auto) 0.0 Baso # (Auto) 0.0 WBC Differential . Differential Comment Auto diff final PT INR APTT Fibrinogen POC Sodium 141 Sodium 139 POC Potassium 4.5 Potassium 4.5 POC Chloride 99 L Chloride 99 Carbon Dioxide 25.9 Anion Gap 14 POC BUN 14 BUN 14 Creatinine 3.92 H POC Creatinine 3.9 H Estimated GFR 19 L POC Glucose 144 H 140 H Random Glucose 145 H Calcium 9.3 Magnesium Total Creatine Kinase Troponin I Nasal Screen MRSA (PCR) Phenytoin Valproic Acid Blood Type Antibody Screen 04/18/18 04/18/18 04/18/18 17:00 18:39 18:39 WBC 13.7 H RBC 3.24 L Hgb 9.1 L POC Hgb (Calc) Hct 29.3 L POC Hct MCV 90.7 MCH 28.1 MCHC 31.0 L RDW 18.2 H Plt Count 279 MPV 8.0 Neut % (Auto) 87.2 H Lymph % (Auto) 3.9 L Bay % (Auto) 8.6 H Eos % (Auto) 0.0 Baso % (Auto) 0.3 Neut # (Auto) 11.9 H Lymph # (Auto) 0.5 L Bay # (Auto) 1.2 H Eos # (Auto) 0.0 Baso # (Auto) 0.0 WBC Differential . Differential Comment Auto diff final PT 12.7 H INR 1.3 APTT 39.0 H Fibrinogen 510 H POC Sodium Sodium POC Potassium Potassium POC Chloride Chloride Carbon Dioxide Anion Gap POC BUN BUN Creatinine POC Creatinine Estimated GFR POC Glucose Random Glucose Calcium Magnesium Total Creatine Kinase Troponin I Nasal Screen MRSA (PCR) Mrsa detected Phenytoin Valproic Acid Blood Type Antibody Screen 04/18/18 04/18/18 04/18/18 18:39 18:39 18:39 WBC RBC Hgb POC Hgb (Calc) Hct POC Hct MCV MCH MCHC RDW Plt Count MPV Neut % (Auto) Lymph % (Auto) Bay % (Auto) Eos % (Auto) Baso % (Auto) Neut # (Auto) Lymph # (Auto) Bay # (Auto) Eos # (Auto) Baso # (Auto) WBC Differential Differential Comment PT INR APTT Fibrinogen POC Sodium Sodium POC Potassium Potassium POC Chloride Chloride Carbon Dioxide Anion Gap POC BUN BUN Creatinine POC Creatinine Estimated GFR POC Glucose Random Glucose Calcium Magnesium 2.3 Total Creatine Kinase 36 L Troponin I Less than 0.02 L Nasal Screen MRSA (PCR) Phenytoin Valproic Acid Blood Type B Positive Antibody Screen Negative 04/18/18 04/19/18 04/19/18 18:39 05:47 05:47 WBC 10.6 RBC 3.26 L Hgb 9.5 L POC Hgb (Calc) Hct 29.6 L POC Hct MCV 90.9 MCH 29.1 MCHC 32.0 RDW 18.7 H Plt Count 265 MPV 8.6 Neut % (Auto) Lymph % (Auto) Bay % (Auto) Eos % (Auto) Baso % (Auto) Neut # (Auto) Lymph # (Auto) Bay # (Auto) Eos # (Auto) Baso # (Auto) WBC Differential Differential Comment PT INR APTT Fibrinogen POC Sodium Sodium 141 POC Potassium Potassium 3.8 POC Chloride Chloride 101 Carbon Dioxide 26.7 Anion Gap 13 POC BUN BUN 22 H Creatinine 5.67 H POC Creatinine Estimated GFR 12 L POC Glucose Random Glucose 189 H Calcium 9.4 Magnesium Total Creatine Kinase Troponin I Nasal Screen MRSA (PCR) Phenytoin 11.4 Valproic Acid 9 L Blood Type Antibody Screen Result Diagrams: 04/19/18 05:47 04/19/18 05:47 Microbiology: Microbiology 04/14/18 04:10 Aerobic Blood Culture - Final Blood - Peripheral No growth in 5 days Anaerobic Blood Culture - Final No growth in 5 days 04/14/18 04:15 Aerobic Blood Culture - Final Blood - Peripheral No growth in 5 days Anaerobic Blood Culture - Final No growth in 5 days 04/14/18 02:15 Urine Culture - Final Catheterized Urine Tamera albicans Imaging: Abdomen/Pelvis CT 04/14/18 01:18 CONCLUSION: Stable CT appearance of the abdomen and pelvis with no definite acute findings. Chest X-Ray 04/14/18 01:18 CONCLUSION: Mild infiltrates Head CT 04/18/18 13:35 CONCLUSION: 1. No acute intracranial abnormality. 2. 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 Head CTA 04/18/18 13:35 CONCLUSION: 1. Occlusion of temporal and distal M2 branches of the right MCA territory consistent with patient's history of right MCA territory infarction. 2. More proximal right MCA branches are intact. 3. Remaining anterior circulation appears intact. Neck CTA 04/18/18 13:35 CONCLUSION: 1. Right Carotid: No hemodynamically significant stenosis. 2. Left Caortid: No hemodynamically significant stenosis. Patient/Family Conference Present at Family Conference: Daughter/HCS Belle and patient's Sister Radha. Family Conference Time: 42 Family Conference Location: Bedside, Telephone Issues Discussed: * Palliative care role, purpose, approach * Additional medical, psychosocial, and spiritual history * Patients general health, functional status, and cognitive changes in the months leading up to the current hospitalization * Patient/family understanding of the current medical problems * Patient/family understanding of prognosis -guarded prognosis in the setting of multiple medical comorbidities and severe previous neurological injury * Patients goals of care as best understood from advance directives and/or conversations and/or values * Current medical treatment options and benefits/burdens of those options * Likely scenarios comparing ongoing aggressive care with a transition to comfort measures only, to include discontinuation of hemodialysis * Questions answered to the best of my ability * Palliative care contact information provided * Hospice philosophy and benefits * Risks, benefits and limitations of CPR, intubation and mechanical ventilation in the setting of poor prognosis Assessment and Plan - Disease Oriented Problem List (1) Seizure (2) GI bleed (3) End stage renal disease on dialysis (4) Chronic ischemic right B[place] stroke (5) 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 Has 3 biological children. Resident of long -term facility since 2008. 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 No service. Spiritual: Nondenominational ozzy. Spiritual services offered and accepted. Legal: Advanced directives completed. Ethical issues impacting care: No ethical issues identified. Important Contacts: Daughter/healthcare surrogate Hiren White Prognosis: Mr. Sharpe is a 62-year-old male with multiple chronic ongoing comorbidities to include end-stage renal disease on hemodialysis, ischemic heart disease, multiple CVAs with neurological deficit to include bedbound status, dysphagia with GJ tube placement, multiple GI bleeds, bipolar disorder, schizophrenia. Patient is a resident of long-term facility, presented to ED via EMS on 04/14 with onset of chest pain and hemoptysis of bright red blood. Patient with history of chronic coffee-ground emesis with prior workup in December 2017 revealing esophagitis. Clinical course complicated on 04/18 in the setting of altered mental status, becoming unresponsive with seizure-like activity during dialysis. Neurology consulted, EEG showing seizure activity. As per neurology, prognosis guarded with multiple medical comorbidities and severe previous neurological injury. Patient had a very high risk for further complications, continued decline and . Patient appears hospice appropriate her family elects comfort-directed care. Code Status: No Code DNR Plan: * CODE STATUS: DNR/DNI. This has been confirmed today with patient's daughter/ healthcare surrogate Belle. * HEALTHCARE DECISION-MAKING: Patient unable to participate in medical decision making secondary to clinical condition, unresponsive. Advanced directives completed, patient has elected his daughter Belle White as healthcare surrogate decision-maker, alternate surrogate is Zeenat Sharpe. Daughter Belle has accepted healthcare surrogate role and is fully supported by her additional family members. * GOALS OF CARE: Daughter Belle serving as healthcare surrogate decision maker has elected to continue current conservative management short of NO resuscitation. Belle considering comfort-directed care with hospice in the setting of overall poor prognosis given multiple medical comorbidities and severe previous neurological injury. Discussed discontinuation of hemodialysis with comfort-directed care, daughter appears receptive. Daughter requesting hospice informative visit with [facility], referral has been sent. Family meeting scheduled with palliative care for tomorrow 04/20 at 10 AM. * SYMPTOMS: =Dyspnea: In the setting of acute infection, GI bleed/anemia, multiple chronic comorbidities. Patient with history of pneumonitis, chronic diastolic congestive heart failure. Currently tolerating O2 via nasal cannula 2 L. = Debility: Patient with history of multiple CVA, bedbound since 2008. Not anticipated to improve. * Spiritual services offered and accepted. Referral made. * Case discussed with bedside RN Enma and paint tester. * Pulmonary care will continue to follow-up for further clarifications of goals of care respirations clinical course continues to evolve. Time Spent Total Floor Time (mins): 65 (Total time to include review of summarization of available medical records to include multiple prior hospitalizations, clinical exam, goals of care conversation with patient's daughter and sister, case discussion with bedside RN and hospice.) >50% Time in Counseling or Coordination of Care: Yes (Total visit time = 65 minutes; > 50% spent counseling/coordinating care) Appreciation Thank you for the opportunity to participate in the care of Mirza Sharpe. Attestation Attestation: To help prompt me to consider important information that might be impacting today's encounter and assessment, information from prior notes written by myself or my colleagues may have been "brought forward" into today's note. My signature on this note, however, is an attestation that I personally performed the exam, history, and/or decision-making noted today, and, unless otherwise indicated, the interactions with patient, family, and staff as well as the review of records all occurred today. I also attest that the listed assessment and stated plan reflect my best clinical judgment today based on the combination of historical information, prior notes, and today's exam/ interactions. When time spent is documented, it refers only to time spent today by the signer, or if indicated, combined time spent today by collaborating physician/nurse practitioner.
--- NOTE | 2018-04-19 16:29 | P.DIET ---
Nutritional Evaluation Type of nutrition evaluation: initial Nutrition consult regarding: Tube Feeding Screening comments: 04/19/18 TF review Objective - Diagnosis GI bleed - Objective Body Mass Index: 23.1 % IBW: 101 (IBW = 142lb) Body Weight Used for Calculations: Actual (65kg) Energy Needs - Lower Range (kCal/kg): 25 Energy Needs - Upper Range (kCal/kg): 30 Lower Limit kCal/kg (kCals): 1,625 Upper Limit kCal/kg (kCals): 1,950 Lower Limit Protein Factor (Grams per Kg): 1.2 Upper Limit Protein Factor (Grams per Kg): 1.4 Lower Protein Needs (Protein): 78 Upper Protein Needs (Protein): 91 Dietitian Reviewed in Medical Record: Curent medications, Intake & Output, Labs , Medical history, Tube feeding Diet Order: NPO, TF'ing Objective Comments: PMH: CKD, dyphagia, HLD, DM, HF Meds: epogen Labs: Assessment Assessment: Pt currently at nutritional risk r/t need for TF'ing as nutritional support. Palliative notes reviewed, pt DNR status now w/ hemodialysis to discontinue, pts daughter requesting hospice information. Pt currently receiving Nepro 1.8 @ 55mL/hr via GJ tube as goal rate per MD note. Consult RD if nutritional recommendations are needed. Recommendations: 1. Continue Nepro 1.8 @ 55mL/hr via GJ tube as goal rate per MD note 2. Consult RD if nutritional recommendations are needed
[2018-04-19] MEDS: Pantoprazole Inj 80 MG in Sodium Chlor 0.9% Inj 100 ML IV.CONT SCH (19:33)
--- NOTE | 2018-04-19 21:07 | P.PNNP ---
Subjective Interval history: Patient seen in the afternoon, remain unresponsive. Physical Exam Vital signs: Vital Signs 04/18/18 22:00 04/18/18 22:46 04/18/18 23:00 Temperature Pulse Rate 102 H 109 H 114 H Respiratory Rate 17 26 H 30 H Blood Pressure 111/69 112/71 113/70 Pulse Oximetry 94 L 98 98 04/19/18 00:00 04/19/18 01:00 04/19/18 02:00 Temperature 98.8 F Pulse Rate 101 H 117 H 126 H Respiratory Rate 25 H 20 35 H Blood Pressure 91/58 L 125/78 119/70 Pulse Oximetry 99 98 92 L 04/19/18 03:00 04/19/18 04:00 04/19/18 05:00 Temperature 97.6 F Pulse Rate 110 H 111 H 115 H Respiratory Rate 13 13 13 Blood Pressure 92/55 L 98/59 L 101/64 Pulse Oximetry 98 93 L 94 L 04/19/18 06:00 04/19/18 07:00 04/19/18 08:00 Temperature 98.6 F Pulse Rate 101 H 92 H 90 Respiratory Rate 27 H 20 26 H Blood Pressure 88/59 L 89/55 L 84/55 L Pulse Oximetry 98 98 94 L 04/19/18 08:37 04/19/18 08:47 04/19/18 09:00 Temperature Pulse Rate 87 95 H 104 H Respiratory Rate 23 31 H 31 H Blood Pressure 82/55 L 95/67 L 122/71 Pulse Oximetry 95 96 92 L 04/19/18 09:30 04/19/18 10:00 04/19/18 10:30 Temperature Pulse Rate 98 H 106 H 96 H Respiratory Rate 25 H 40 H 13 Blood Pressure 98/63 L 111/62 96/54 L Pulse Oximetry 96 95 94 L 04/19/18 11:00 04/19/18 11:31 04/19/18 12:00 Temperature 99.7 F H Pulse Rate 93 H 109 H 103 H Respiratory Rate 25 H 38 H 33 H Blood Pressure 91/55 L 100/63 96/63 L Pulse Oximetry 95 92 L 94 L 04/19/18 12:30 04/19/18 13:00 04/19/18 13:01 Temperature Pulse Rate 109 H 109 H 107 H Respiratory Rate 25 H 28 H 29 H Blood Pressure 116/66 112/71 Pulse Oximetry 93 L 92 L 90 L 04/19/18 13:30 04/19/18 14:00 04/19/18 14:30 Temperature Pulse Rate 104 H 97 H 98 H Respiratory Rate 24 21 14 Blood Pressure 99/58 L 89/54 L 92/60 L Pulse Oximetry 89 L 89 L 95 04/19/18 15:00 04/19/18 15:30 04/19/18 16:00 Temperature 98.8 F Pulse Rate 97 H 92 H 95 H Respiratory Rate 25 H 24 22 Blood Pressure 88/55 L 88/54 L 91/57 L Pulse Oximetry 94 L 94 L 95 04/19/18 16:30 04/19/18 17:00 04/19/18 17:30 Temperature Pulse Rate 104 H 96 H 101 H Respiratory Rate 30 H 20 23 Blood Pressure 90/67 L 93/60 L 101/65 Pulse Oximetry 94 L 94 L 93 L 04/19/18 18:00 04/19/18 18:30 04/19/18 19:00 Temperature Pulse Rate 91 H 91 H 95 H Respiratory Rate 10 L 12 26 H Blood Pressure 85/54 L 82/54 L Pulse Oximetry 93 L 95 95 04/19/18 19:17 04/19/18 19:30 Temperature Pulse Rate 85 91 H Respiratory Rate 24 25 H Blood Pressure 84/56 L 81/51 L Pulse Oximetry 97 93 L Intake & Output 04/19/18 04/19/18 04/20/18 06:59 18:59 06:59 Intake Total 159 / 159 219 / 219 305 / 305 Output Total 0 / 0 Balance 159 / 159 219 / 219 305 / 305 Weight 65 kg Intake: IV 159 / 159 159 / 159 305 / 305 Maxipime Inj 2,000 MG In NS Inj 100 / 100 100 ML @ 200 mls/hr IV.SIG Q24H [facility] Rx#:[id number] Cerebyx Inj 200 MGPE In NS Inj 54 / 54 54 / 54 50 ML @ 216 mls/hr IV.SIG Q12H [facility] Rx#:[id number] Depacon Inj 500 MG In NS Inj 105 / 105 100 ML @ 105 mls/hr IV.SIG Q8HR [facility] Rx#:[id number] Depacon Inj 500 MG In NS Inj 105 / 105 100 ML @ 105 mls/hr IV.SIG Q8HR [facility] Rx#:[id number] Oral 0 / 0 Tube Feeding 0 / 0 Tube Irrigant 60 / 60 Output: Urine 0 / 0 Other: Date of Last Bowel Movement 04/16/18 04/18/18 # Bowel Movements 0 0 Narrative: GENERAL: in NAD, SKIN: Warm and dry. HEAD: Atraumatic. EYES: Sluggish ENT: No nasal bleeding or discharge. NECK: Trachea midline. No JVD. CARDIOVASCULAR: Regular rate and rhythm. RESPIRATORY: No accessory muscle use. GASTROINTESTINAL: Abdomen soft, non-tender, PEG tube MUSCULOSKELETAL: Contracture NEUROLOGICAL: Lethargic, opens eyes, not following, no involuntary movements increased tone left greater than right hemiparesis, fingers contracted PSYCHIATRIC: Somnolent Assessment and Plan - Assessment (1) Anemia Code(s): D64.9 - Anemia, unspecified Status: Acute (2) Aspiration pneumonia of both lungs Code(s): J69.0 - Pneumonitis due to inhalation of food and vomit Status: Acute Qualifiers: Aspiration pneumonia type: unspecified Lung location: lower lobe of lung Qualified Code(s): J69.0 - Pneumonitis due to inhalation of food and vomit (3) Coffee ground emesis Code(s): K92.0 - Hematemesis Status: Acute (4) Dysphagia Code(s): R13.10 - Dysphagia, unspecified Status: Acute (5) End stage renal disease on dialysis Code(s): N18.6 - End stage renal disease; Z99.2 - Dependence on renal dialysis Status: Acute (6) Hypotension Code(s): I95.9 - Hypotension, unspecified Status: Acute (7) Diabetes Code(s): E11.9 - Type 2 diabetes mellitus without complications Status: Chronic Qualifiers: Diabetes mellitus type: type 2 Chronic kidney disease stage: on chronic dialysis - Plan Patient with End stage renal disease and CVA. Patient now has altered mental status, has some seizure activity, shown also on EEG. CT Brain noted, Neurology following. HD will be continue TTS. Patient was seen by Palliative care.
[2018-04-19] MEDS: PHENobarbital Inj 130 MG/ML Vial IM SCH (22:55)
[2018-04-19 23:14] LABS: Phenytoin (Dilantin) 6.8 mcg/mL (10.0-20.0)
--- NOTE | 2018-04-20 00:44 | MG ---
cc: Lang Jara MD, PhD TECHNIQUE: This is a 17-channel EEG. DESCRIPTION: The background rhythm shows generalized slowing in the delta frequency. There are triphasic waves. There are some periodic discharges seen mainly in the left, which appeared to be mainly triphasic in nature. No definite epileptiform activity identified. INTERPRETATION: Abnormal study consistent with severe encephalopathy. There is some periodic discharges identified in the remainder of the left hemisphere, which would be consistent with PLEDS. Lang Jara MD, PhD KARLA/sj , 09:21 PM , 09:25 PM
[2018-04-20] MEDS: Chlorhexidine Gluconate 2% 1 Pack (2 Cloths) TOPICAL SCH (03:12)
[2018-04-20] MEDS: PHENobarbital Inj 130 MG/ML Vial IM SCH ×2 (05:32→14:25)
[2018-04-20 08:21] LABS: Hematocrit 28.8 % (39.0-51.0); Hemoglobin 9.1 gm/dL (13.0-17.0); Mean Corpuscular HGB Conc 31.7 % (32.0-36.0); Mean Corpuscular Hemoglobin 28.6 pg (27.0-34.0); Mean Corpuscular Volume 90.3 fL (80.0-100.0); Mean Platelet Volume 8.7 fL (7.0-11.0); Platelet Count 239 th/mm3 (150-450); Red Blood Count 3.19 mil/mm3 (4.50-5.90); Red Cell Distribution Width 18.2 % (11.6-17.2); White Blood Count 10.9 th/mm3 (4.0-11.0)
[2018-04-20] MEDS: Pantoprazole Inj 40 MG Vial IV.PUSH SCH (08:35)
[2018-04-20] MEDS: Mupirocin 2% Nasal Oint Topical Syringe EACH NARE SCH (08:36)
[2018-04-20 08:39] LABS: Calcium 9.3 mg/dL (8.5-10.1); Magnesium 2.3 mg/dL (1.5-2.5); Potassium 3.8 meq/L (3.5-5.1)
[2018-04-20] MEDS ORDERED: ACYCLOVIR IV.SIG SCH (10:00)
[2018-04-20] MEDS ORDERED: SODIUM CHLOR 0.9% IV.SIG SCH (10:00)
--- NOTE | 2018-04-20 11:19 | P.PNPAL ---
Reason for Visit Reason for visit: a. To assist with evaluation and management of symptoms including: Shortness of breath. b. To assist medical decision maker(s) with: better understanding of current medical conditions; weighing benefits/burdens of medical treatment options; making medical treatment decisions. Subjective Subjective/Interval History: Mr. Sharpe is a 62-year-old male with multiple chronic ongoing comorbidities to include end-stage renal disease on hemodialysis, ischemic heart disease, multiple CVAs with neurological deficit to include bedbound status, dysphagia with GJ tube placement, multiple GI bleeds, bipolar disorder, schizophrenia. Patient is a resident of [facility], presented to ED via EMS on 04/14 with onset of chest pain and hemoptysis of bright red blood. Patient with history of chronic coffee-ground emesis with prior workup in December 2017 revealing esophagitis. Clinical course complicated on 04/18 in the setting of altered mental status, becoming unresponsive with seizure-like activity during dialysis. Neurology consulted, EEG showing seizure activity. As per neurology, prognosis guarded with multiple medical comorbidities and severe previous neurological injury. Palliative care follow-up for further clarifications of goals of care given the above. Patient seen in medical ICU. Remains minimally responsive to verbal or tactile stimuli, opening eyes but not tracking or following any commands. Persistent eye blinking noted. EEG 04/19 revealing severe encephalopathy, periodic discharges identified in the left hemisphere which would be consistent with periodic lateralized epileptiform discharges. Patient noted with increased lung congestion, coarse breath sounds bilaterally. Currently O2 via nasal cannula. Stable hemodynamically. Met with patient's daughter/healthcare surrogate Belle at bedside. Reviewed patient's past medical history in the setting of multiple medical comorbidities and severe previous neurological injury status post multiple strokes. Reviewed patient's overall poor prognosis of survival given the above. Daughter electing to transition patient to comfort-directed care with hospice, electing to discharge patient to hospice care center for symptom management and end-of- life care. Daughter elected to discontinue hemodialysis. Reviewed prognosis of hours to days of illness run its natural course. Ongoing emotional support and active listening provided. Case discussed with bedside RN Vivi and Erika aboriginal liaison officer. Advance Directives Health Care Surrogate: Copy in medical record Health Care Surrogate Name and Number: Daughter Belle White . Objective Vital Signs: Vital Signs 04/19/18 11:31 04/19/18 12:00 04/19/18 12:30 Temperature 99.7 F H Pulse Rate 109 H 103 H 109 H Respiratory Rate 38 H 33 H 25 H Blood Pressure 100/63 96/63 L 116/66 Pulse Oximetry 92 L 94 L 93 L 04/19/18 13:00 04/19/18 13:01 04/19/18 13:30 Temperature Pulse Rate 109 H 107 H 104 H Respiratory Rate 28 H 29 H 24 Blood Pressure 112/71 99/58 L Pulse Oximetry 92 L 90 L 89 L 04/19/18 14:00 04/19/18 14:30 04/19/18 15:00 Temperature Pulse Rate 97 H 98 H 97 H Respiratory Rate 21 14 25 H Blood Pressure 89/54 L 92/60 L 88/55 L Pulse Oximetry 89 L 95 94 L 04/19/18 15:30 04/19/18 16:00 04/19/18 16:30 Temperature 98.8 F Pulse Rate 92 H 95 H 104 H Respiratory Rate 24 22 30 H Blood Pressure 88/54 L 91/57 L 90/67 L Pulse Oximetry 94 L 95 94 L 04/19/18 17:00 04/19/18 17:30 04/19/18 18:00 Temperature Pulse Rate 96 H 101 H 91 H Respiratory Rate 20 23 10 L Blood Pressure 93/60 L 101/65 85/54 L Pulse Oximetry 94 L 93 L 93 L 04/19/18 18:30 04/19/18 19:00 04/19/18 19:17 Temperature Pulse Rate 91 H 95 H 85 Respiratory Rate 12 26 H 24 Blood Pressure 82/54 L 84/56 L Pulse Oximetry 95 96 97 04/19/18 19:30 04/19/18 20:00 04/19/18 20:30 Temperature 98.9 F Pulse Rate 91 H 94 H 98 H Respiratory Rate 25 H 19 10 L Blood Pressure 81/51 L 87/55 L 108/60 Pulse Oximetry 93 L 88 L 96 04/19/18 21:00 04/19/18 21:30 04/19/18 22:00 Temperature Pulse Rate 99 H 104 H 100 H Respiratory Rate 21 32 H 38 H Blood Pressure 92/61 L 106/69 104/63 Pulse Oximetry 90 L 95 96 04/19/18 22:30 04/19/18 23:00 04/19/18 23:30 Temperature Pulse Rate 97 H 93 H 86 Respiratory Rate 22 11 L 24 Blood Pressure 95/66 L 91/56 L 87/55 L Pulse Oximetry 94 L 95 93 L 04/19/18 23:52 04/20/18 00:00 04/20/18 00:30 Temperature Pulse Rate 92 H 94 H Respiratory Rate 12 26 H Blood Pressure 82/52 L 95/67 L Pulse Oximetry 96 97 93 L 04/20/18 01:00 04/20/18 01:01 04/20/18 01:30 Temperature Pulse Rate 100 H 96 H 97 H Respiratory Rate 25 H 12 26 H Blood Pressure 117/75 108/65 Pulse Oximetry 96 96 95 04/20/18 02:00 04/20/18 02:30 04/20/18 03:00 Temperature Pulse Rate 100 H 90 89 Respiratory Rate 35 H 3 L 9 L Blood Pressure 106/69 90/58 L 81/51 L Pulse Oximetry 95 96 95 04/20/18 03:31 04/20/18 04:00 04/20/18 04:30 Temperature 99.0 F Pulse Rate 88 100 H 100 H Respiratory Rate 21 33 H 39 H Blood Pressure 90/64 L 145/88 H 116/67 Pulse Oximetry 96 97 97 04/20/18 05:00 04/20/18 05:30 04/20/18 06:00 Temperature Pulse Rate 85 85 99 H Respiratory Rate 22 23 33 H Blood Pressure 87/57 L 95/58 L Pulse Oximetry 98 99 97 04/20/18 06:01 04/20/18 08:00 04/20/18 08:40 Temperature Pulse Rate 97 H 101 H Respiratory Rate 16 Blood Pressure 143/68 H Pulse Oximetry 97 96 04/20/18 10:00 Temperature Pulse Rate 100 H Respiratory Rate Blood Pressure Pulse Oximetry Intake & Output 04/19/18 04/20/18 04/20/18 18:59 06:59 18:59 Intake Total 219 / 219 1639 / 1639 Balance 219 / 219 1639 / 1639 Weight 64.9 kg Intake: IV 159 / 159 1569 / 1569 D5W/Normal Saline Inj 1,000 ML 1000 / 1000 @ 100 mls/hr IV.CONT .Q10H [facility] Rx#:[id number] Maxipime Inj 2,000 MG In NS Inj 100 / 100 100 ML @ 200 mls/hr IV.SIG Q24H [facility] Rx#:[id number] Cerebyx Inj 200 MGPE In NS Inj 54 / 54 54 / 54 50 ML @ 216 mls/hr IV.SIG Q12H [facility] Rx#:[id number] Depacon Inj 500 MG In NS Inj 105 / 105 210 / 210 100 ML @ 105 mls/hr IV.SIG Q8HR [facility] Rx#:[id number] Oral 0 / 0 70 / 70 Tube Feeding 0 / 0 0 / 0 Tube Irrigant 60 / 60 Other: Date of Last Bowel Movement 04/18/18 04/18/18 04/18/18 # Bowel Movements 0 0 Physical Exam: CONSTITUTIONAL/GENERAL: This is an thin, elderly male sitting in bed in no acute distress. Ill looking. TUBES/LINES/DRAINS: PIV, nasal cannula. GJ tube. SKIN: No jaundice, rashes, or lesions. No wounds seen anteriorly. Skin temperature appropriate. Not diaphoretic. Bilateral lower extremities with dry/ scaly skin. HEAD: Atraumatic. Normocephalic. EYES: Pupils equal and round and reactive. No scleral icterus. No injection or drainage. Fundi not examined. ENT: Hearing grossly normal. Nose without bleeding or purulent drainage. Dry lips. NECK: Trachea midline. Supple, nontender. CARDIOVASCULAR: Regular rate and rhythm. Peripheral pulses symmetric. RESPIRATORY/CHEST: Symmetric, unlabored respirations. Coarse breath sounds bilaterally. O2 via nasal cannula. GASTROINTESTINAL: Abdomen soft, non-tender, nondistended. Bowel sounds present. GJ tube in place. GENITOURINARY: Without palpable bladder distension. MUSCULOSKELETAL: Extremities without clubbing, cyanosis, or edema. No mottling or clubbing. Significant muscle atrophy to all 4 extremities. NEUROLOGICAL: Eyes open. Not tracking or following commands. Moving all 4 extremities spontaneously. Persistent blinking of bilateral eyes noted. PSYCHIATRIC: Appears calm. Unable to evaluate further given clinical condition. Diagnostic Tests Laboratory: Laboratory Results - last 72 hr 04/18/18 04/18/18 04/18/18 13:01 13:24 13:24 WBC 9.9 RBC 3.19 L Hgb 9.6 L POC Hgb (Calc) 10.5 L Hct 28.7 L POC Hct 31.0 L MCV 89.9 MCH 29.9 MCHC 33.3 RDW 18.0 H Plt Count 254 MPV 7.8 Neut % (Auto) 84.3 H Lymph % (Auto) 6.6 L [place] % (Auto) 8.4 H Eos % (Auto) 0.3 Baso % (Auto) 0.4 Neut # (Auto) 8.3 H Lymph # (Auto) 0.7 L [place] # (Auto) 0.8 Eos # (Auto) 0.0 Baso # (Auto) 0.0 WBC Differential . Differential Comment Auto diff final PT INR APTT Fibrinogen POC Sodium 141 Sodium 139 POC Potassium 4.5 Potassium 4.5 POC Chloride 99 L Chloride 99 Carbon Dioxide 25.9 Anion Gap 14 POC BUN 14 BUN 14 Creatinine 3.92 H POC Creatinine 3.9 H Estimated GFR 19 L POC Glucose 144 H 140 H Random Glucose 145 H Calcium 9.3 Magnesium Total Creatine Kinase Troponin I Nasal Screen MRSA (PCR) Phenytoin Valproic Acid Blood Type Antibody Screen 04/18/18 04/18/18 04/18/18 17:00 18:39 18:39 WBC 13.7 H RBC 3.24 L Hgb 9.1 L POC Hgb (Calc) Hct 29.3 L POC Hct MCV 90.7 MCH 28.1 MCHC 31.0 L RDW 18.2 H Plt Count 279 MPV 8.0 Neut % (Auto) 87.2 H Lymph % (Auto) 3.9 L [place] % (Auto) 8.6 H Eos % (Auto) 0.0 Baso % (Auto) 0.3 Neut # (Auto) 11.9 H Lymph # (Auto) 0.5 L [place] # (Auto) 1.2 H Eos # (Auto) 0.0 Baso # (Auto) 0.0 WBC Differential . Differential Comment Auto diff final PT 12.7 H INR 1.3 APTT 39.0 H Fibrinogen 510 H POC Sodium Sodium POC Potassium Potassium POC Chloride Chloride Carbon Dioxide Anion Gap POC BUN BUN Creatinine POC Creatinine Estimated GFR POC Glucose Random Glucose Calcium Magnesium Total Creatine Kinase Troponin I Nasal Screen MRSA (PCR) Mrsa detected Phenytoin Valproic Acid Blood Type Antibody Screen 04/18/18 04/18/18 04/18/18 18:39 18:39 18:39 WBC RBC Hgb POC Hgb (Calc) Hct POC Hct MCV MCH MCHC RDW Plt Count MPV Neut % (Auto) Lymph % (Auto) [place] % (Auto) Eos % (Auto) Baso % (Auto) Neut # (Auto) Lymph # (Auto) [place] # (Auto) Eos # (Auto) Baso # (Auto) WBC Differential Differential Comment PT INR APTT Fibrinogen POC Sodium Sodium POC Potassium Potassium POC Chloride Chloride Carbon Dioxide Anion Gap POC BUN BUN Creatinine POC Creatinine Estimated GFR POC Glucose Random Glucose Calcium Magnesium 2.3 Total Creatine Kinase 36 L Troponin I Less than 0.02 L Nasal Screen MRSA (PCR) Phenytoin Valproic Acid Blood Type B Positive Antibody Screen Negative 04/18/18 04/19/18 04/19/18 18:39 05:47 05:47 WBC 10.6 RBC 3.26 L Hgb 9.5 L POC Hgb (Calc) Hct 29.6 L POC Hct MCV 90.9 MCH 29.1 MCHC 32.0 RDW 18.7 H Plt Count 265 MPV 8.6 Neut % (Auto) Lymph % (Auto) [place] % (Auto) Eos % (Auto) Baso % (Auto) Neut # (Auto) Lymph # (Auto) [place] # (Auto) Eos # (Auto) Baso # (Auto) WBC Differential Differential Comment PT INR APTT Fibrinogen POC Sodium Sodium 141 POC Potassium Potassium 3.8 POC Chloride Chloride 101 Carbon Dioxide 26.7 Anion Gap 13 POC BUN BUN 22 H Creatinine 5.67 H POC Creatinine Estimated GFR 12 L POC Glucose Random Glucose 189 H Calcium 9.4 Magnesium Total Creatine Kinase Troponin I Nasal Screen MRSA (PCR) Phenytoin 11.4 Valproic Acid 9 L Blood Type Antibody Screen 04/19/18 04/20/18 04/20/18 21:07 06:43 06:43 WBC 10.9 RBC 3.19 L Hgb 9.1 L POC Hgb (Calc) Hct 28.8 L POC Hct MCV 90.3 MCH 28.6 MCHC 31.7 L RDW 18.2 H Plt Count 239 MPV 8.7 Neut % (Auto) Lymph % (Auto) [place] % (Auto) Eos % (Auto) Baso % (Auto) Neut # (Auto) Lymph # (Auto) [place] # (Auto) Eos # (Auto) Baso # (Auto) WBC Differential Differential Comment PT INR APTT Fibrinogen POC Sodium Sodium 147 H POC Potassium Potassium 3.8 POC Chloride Chloride 108 H Carbon Dioxide 29.0 Anion Gap 10 POC BUN BUN 29 H Creatinine 7.02 H POC Creatinine Estimated GFR 10 L POC Glucose Random Glucose 193 H Calcium 9.3 Magnesium 2.3 Total Creatine Kinase Troponin I Nasal Screen MRSA (PCR) Phenytoin 6.8 L Valproic Acid 56 Blood Type Antibody Screen Result Diagrams: 04/20/18 06:43 04/20/18 06:43 Microbiology: Microbiology 04/14/18 04:10 Aerobic Blood Culture - Final Blood - Peripheral No growth in 5 days Anaerobic Blood Culture - Final No growth in 5 days 04/14/18 04:15 Aerobic Blood Culture - Final Blood - Peripheral No growth in 5 days Anaerobic Blood Culture - Final No growth in 5 days Other: EEG 04/19/18: INTERPRETATION: Abnormal study consistent with severe encephalopathy. There is some periodic discharges identified in the remainder of the left hemisphere, which would be consistent with PLEDS. 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 Has 3 biological children. Resident of [facility] since 2008. 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 No service. Spiritual: Zoroastrianism ozzy. Spiritual services offered and accepted. Legal: Advanced directives completed. Ethical issues impacting care: No ethical issues identified. Important Contacts: Daughter/healthcare surrogate Hiren White Prognosis: Mr. Sharpe is a 62-year-old male with multiple chronic ongoing comorbidities to include end-stage renal disease on hemodialysis, ischemic heart disease, multiple CVAs with neurological deficit to include bedbound status, dysphagia with GJ tube placement, multiple GI bleeds, bipolar disorder, schizophrenia. Patient is a resident of [facility], presented to ED via EMS on 04/14 with onset of chest pain and hemoptysis of bright red blood. Patient with history of chronic coffee-ground emesis with prior workup in December 2017 revealing esophagitis. Clinical course complicated on 04/18 in the setting of altered mental status, becoming unresponsive with seizure-like activity during dialysis. Neurology consulted, EEG showing seizure activity. As per neurology, prognosis guarded with multiple medical comorbidities and severe previous neurological injury. Patient had a very high risk for further complications, continued decline and . Patient appears hospice appropriate her family elects comfort-directed care. Code Status: No Code DNR Plan: * CODE STATUS: DNR/DNI. This has been confirmed with patient's daughter/ healthcare surrogate Belle 04/20/18. * HEALTHCARE DECISION-MAKING: Patient unable to participate in medical decision making secondary to clinical condition, unresponsive. Patient not anticipated to regain medical decision-making capacity. Advanced directives completed, patient has elected his daughter Belle White as healthcare surrogate decision-maker, alternate surrogate is Zeenat Sharpe. Daughter Belle has accepted healthcare surrogate role and is fully supported by her additional family members. * GOALS OF CARE: Daughter Belle serving as healthcare surrogate decision maker has elected to transition patient to comfort-directed care with hospice, discontinue hemodialysis given patient's overall poor prognosis. Plan to transfer patient to hospice care center for symptom management and end-of-life care. Prognosis of hours to days if illness run its natural course discussed with daughter. * SYMPTOMS: =Dyspnea: In the setting of acute infection, GI bleed/anemia, multiple chronic comorbidities. Patient with history of pneumonitis, chronic diastolic congestive heart failure. Currently tolerating O2 via nasal cannula 2 L. = Debility: Patient with history of multiple CVA, bedbound since 2008. Not anticipated to improve. * Spiritual services following. * Case discussed with bedside RN Vivi and Erika aboriginal liaison officer. * Palliative care will continue to follow-up for further clarifications of goals of care as patient's clinical course continues to evolve. Time Spent Total Floor Time (mins): 45 (Total time to include review of medical records, physical exam, goals of care conversation with patient's daughter, case discussion with bedside RN and aboriginal liaison officer.) >50% Time in Counseling or Coordination of Care: Yes (Total visit time = 45 minutes; > 50% spent counseling/coordinating care) Attestation Attestation: To help prompt me to consider important information that might be impacting today's encounter and assessment, information from prior notes written by myself or my colleagues may have been "brought forward" into today's note. My signature on this note, however, is an attestation that I personally performed the exam, history, and/or decision-making noted today, and, unless otherwise indicated, the interactions with patient, family, and staff as well as the review of records all occurred today. I also attest that the listed assessment and stated plan reflect my best clinical judgment today based on the combination of historical information, prior notes, and today's exam/ interactions. When time spent is documented, it refers only to time spent today by the signer, or if indicated, combined time spent today by collaborating physician/nurse practitioner.
[2018-04-20] MEDS: Fosphenytoin Inj 200 MGPE in Sodium Chlor 0.9% Inj 50 ML IV.SIG SCH (11:48)
--- NOTE | 2018-04-20 12:05 | P.DS ---
DS: Providers Date of admission: 04/17/18 11:08 Primary care physician: UNKNOWN Consults: 04/14/18 03:43 Consult to Gastroenterology Routine Consulting Provider: Doron Head V Reason for Consultation: gi bleed Notified:: Service Spoke with:: jorge luis Date Notified:: 04/14/18 Time Notified:: 04:26 Ordering Provider: KAYCE 04/14/18 09:00 HUB Only Consult Order Routine Consulting Provider: [facility] 04/14/18 15:06 Consult to Nephrology Routine Consulting Provider: Lizeth Bell Does the patient have a Rn Hemodialysis who follows them?: Yes Preferred Nephrology Philosophy Professor:: Kaur Bell Reason for Consultation: [address] Bell who presents with blood in vomit. He has dialysis on Tue, [place], Sat and will need arrangements for tomorrow' s treatment. Thank you! Notified:: Service Spoke with:: jethro Date Notified:: 04/14/18 Time Notified:: 15:16 Ordering Provider: MELIDA 04/18/18 13:31 Consult to Neurosurgery Routine Consulting Provider: Francois Cornelius Reason for Consultation: Change in mental status. Diaphoretic Notified:: Physician Spoke with:: DR. ALMONTE Date Notified:: 04/18/18 Time Notified:: 13:37 Ordering Provider: AMENA 04/18/18 13:35 Consult to Neurology Stat Consulting Provider: Lokesh Starr For STAT consult, spoke directly to:: Ro Reason for Consultation: Brain Attack Notified:: Office Spoke with:: lena Date Notified:: 04/18/18 Time Notified:: 13:53 Comments:: Ordering Provider: TANVI 04/19/18 12:20 Consult to Palliative Care Routine Consulting Provider: Salvador Lino Reason for Consultation: Please assist with goals of care. Notified:: Service Spoke with:: Alton Date Notified:: 04/19/18 Time Notified:: 12:22 Ordering Provider: TANVI Brief History from admission: HPI as documented by the admitting physician 62-year-old male with history of CVA and functional paralysis, CAD, type 2 diabetes, ESRD on dialysis, PEG tube, previous upper GI bleed, presented to the hospital overnight with chest pain that was followed by emesis mixed with bright red blood. His hemoglobin at first appeared stable but has dropped nearly 2 points since his arrival, 10.5 to 8.8. At this point he says the bleeding has stopped and he has no more chest pain, no specific complaints. Previous EGD performed 4 months ago showed "LA class D esophagitis" within normal duodenal and gastric mucosa. Colonoscopy on 01/27/2018 showed no abnormality. Patient is alert and oriented x3 and intact for decision-making, knowing the risks and benefits he has refused an EGD that was scheduled for this morning. His blood will continue to be monitored, if bleeding persists he will be encouraged again to undergo an EGD, otherwise at this point which is trending his hemoglobin. He denies any other significant symptoms. He denies fevers or cough. He denies chest pain or arrhythmia. He denies any diarrhea. Patient update on day of discharge: Patient remain unresponsive and noninteractive. Discussed with RN. Family decided to transition the patient to comfort care only. Discontinuing dialysis and he will be transferred to the hospice care center. 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 On 04/18/18, the patient was noted to be unresponsive. A stroke alert was called. He was later found to be in status epilepticus. He was transferred to the ICU. He remaining a persistent state of CV encephalopathy. Remaining unresponsive and noninteractive. The patient's family decided to transition him to comfort care only with hospice services. He was discharged to the hospice care center. Treatment course detailed below: Seizures: - Patient was followed by neurology. He was treated with IV Celebrex and Depakote. However his prognosis poor given multiple comorbid conditions and previous severe neurological injuries. Upper GI bleed w/ anemia Patient presented to the ER with chest pain and bright red blood in emesis Patient was seen 4 months ago for the same thing, esophagitis present at that time, normal gastric mucosa EGD was scheduled but the patient initially refused and subsequently has been having seizures and unable to participate. GI has been following but signed off h/o PEG tube Tube feed resumed. ESRD w/ dialysis Nephrology followed the patient for ongoing dialysis treatment. Family discontinued dialysis and transition him to comfort care with hospice Functional quadriplegia, history of CVA Patient has contractures and deficits consistent with previous CVA. He is now having seizures and is nonresponsive, noninteractive. Unfortunately he has significant previous neurological injuries. Time Spent with Patient Total time spent providing and/or coordinating discharge services: Quality: Stroke Last date observed well: 04/18/18 Last time observed well: 13:23 Quality: VTE Deep Vein Thrombosis/Pulmonary Embolism Present on Admission: No Exam Narrative Exam Narrative: GENERAL: Patient is nonresponsive. Does not interact EYES: Pupils very slow to react CARDIOVASCULAR: Normal rate. Regular rhythm. No murmur, no gallops, no rubs. RESPIRATORY: Clear and equal to auscultation bilaterally. No crackles, no wheezes. No accessory muscle use. GASTROINTESTINAL: Abdomen soft,nondistended. PEG in place. MUSCULOSKELETAL: Contractures of upper and lower extremities NEUROLOGICAL: Non responsive. Does not follow commands. Contractures present. Results Labs on day of discharge: Labs from last 24 hours 04/20/18 04/20/18 04/19/18 06:43 06:43 21:07 WBC 10.9 RBC 3.19 L Hgb 9.1 L Hct 28.8 L MCV 90.3 MCH 28.6 MCHC 31.7 L RDW 18.2 H Plt Count 239 MPV 8.7 Sodium 147 H Potassium 3.8 Chloride 108 H Carbon Dioxide 29.0 Anion Gap 10 BUN 29 H Creatinine 7.02 H Estimated GFR 10 L Random Glucose 193 H Calcium 9.3 Magnesium 2.3 Phenytoin 6.8 L Valproic Acid 56 Impressions ITS Impressions Abdomen/Pelvis CT 04/14/18 01:18 CONCLUSION: Stable CT appearance of the abdomen and pelvis with no definite acute findings. Chest X-Ray 04/14/18 01:18 CONCLUSION: Mild infiltrates Head CT 04/18/18 13:35 CONCLUSION: 1. No acute intracranial abnormality. 2. Remote infarcts in the right anterior MCA and PARTS ASSEMBLER territories as well as the left cerebral hemisphere. Report was called by Dr. Mcelroy to Dr. Starr at 1349 PM.. Head CTA 04/18/18 13:35 CONCLUSION: 1. Occlusion of temporal and distal M2 branches of the right MCA territory consistent with patient's history of right MCA territory infarction. 2. More proximal right MCA branches are intact. 3. Remaining anterior circulation appears intact. Report was called by Dr. Mcelroy to Dr. Starr at 1407 PM.. Neck CTA 04/18/18 13:35 CONCLUSION: 1. Right Carotid: No hemodynamically significant stenosis. 2. Left Caortid: No hemodynamically significant stenosis. Report was called by Dr. Mcelroy to Dr. Starr at 1407 p.m.. Discharge Plan Discharge Disposition Patient Disposition: [facility] Hospice/Med Facility Discharge Condition Condition: Critical Discharge Order Discharge Orders: Discharge Order (Routine); Ordered 04/20/18 Ordered By: Annabel Romeo Physicians Team ED Provider: Hiren Stroud Primary Care Provider: UNKNOWN, Attending Provider: Annabel Romeo Other Providers: Doron Head V ; [facility] ; Lizeth Bell ; Francois Cornelius ; Lokesh Starr ; Salvador Lino Rxs /Orders / Referrals /Forms Prescriptions: Continue insulin glargine [Lantus U-100 Insulin] 100 unit/mL Solution 10 unit SUB-Q DAILY RF: 0 lovastatin 20 mg Tablet 20 mg Feeding Tube DAILY RF: 0 tramadol 50 mg tablet 50 mg Feeding Tube Q6H PRN (Reason: Pain) Qty: 28 RF: 0 ondansetron HCl [Zofran] 4 mg tablet 4 mg PO BID PRN (Reason: nausea and vomiting) Qty: 10 RF: 0 ascorbic acid (vitamin C) [Vitamin C] 500 mg Tablet 500 mg Feeding Tube BID RF: 0 bisacodyl 5 mg Tablet 5 mg Feeding Tube TID PRN (Reason: Constipation) RF: 0 gabapentin 100 mg Capsule 200 mg Feeding Tube HS RF: 0 escitalopram oxalate 10 mg Tablet 10 mg Feeding Tube DAILY RF: 0 lamotrigine [Lamictal] 200 mg Tablet 200 mg PO HS RF: 0 polyethylene glycol 3350 17 gram Powder In Packet 17 g Feeding Tube DAILY RF: 0 multivitamin Tablet 1 tab Feeding Tube DAILY RF: 0 sevelamer carbonate [Renvela] 2.4 gram Powder In Packet 2,400 mg Feeding Tube AC RF: 0 risperidone 0.5 mg Tablet,Disintegrating 0.5 mg Feeding Tube BID RF: 0 trazodone 150 mg Tablet 150 mg Feeding Tube HS RF: 0 bisacodyl [Bisac-Evac] 10 mg Suppository 10 mg W[place] DAILY PRN (Reason: Severe Consitipation) RF: 0 lactulose [Enulose] 10 gram/15 mL Solution 30 ml Feeding Tube DAILY PRN (Reason: Constipation) RF: 0 ferrous sulfate 15 mg iron (75 mg)/mL Syringe 5.4 ml Feeding Tube TID RF: 0 Lactobacillus 1 cap Feeding Tube BID RF: 0 melatonin 3 mg Tablet 3 mg Feeding Tube HS RF: 0 insulin aspart U-100 100 unit/mL Solution 1 sliding scale dose SUBCUT HS RF: 0 metoclopramide HCl [Reglan] 5 mg Tablet 5 mg Feeding Tube Q6H PRN (Reason: Nausea) RF: 0 Referrals: UNKNOWN, [Primary Care Provider] - See Instructions Status ED Status: Left Department
[2018-04-20 12:37] VITALS: TEMP 98.3; O2SAT 95
--- NOTE | 2018-04-20 12:55 | P.PNNP ---
Subjective Interval history: Plan for discharge to hospice care center. <Khalida Laura - Last Filed: 04/20/18 12:53> Physical Exam Vital signs: Vital Signs 04/19/18 13:00 04/19/18 13:01 04/19/18 13:30 Temperature Pulse Rate 109 H 107 H 104 H Respiratory Rate 28 H 29 H 24 Blood Pressure 112/71 99/58 L Pulse Oximetry 92 L 90 L 89 L 04/19/18 14:00 04/19/18 14:30 04/19/18 15:00 Temperature Pulse Rate 97 H 98 H 97 H Respiratory Rate 21 14 25 H Blood Pressure 89/54 L 92/60 L 88/55 L Pulse Oximetry 89 L 95 94 L 04/19/18 15:30 04/19/18 16:00 04/19/18 16:30 Temperature 98.8 F Pulse Rate 92 H 95 H 104 H Respiratory Rate 24 22 30 H Blood Pressure 88/54 L 91/57 L 90/67 L Pulse Oximetry 94 L 95 94 L 04/19/18 17:00 04/19/18 17:30 04/19/18 18:00 Temperature Pulse Rate 96 H 101 H 91 H Respiratory Rate 20 23 10 L Blood Pressure 93/60 L 101/65 85/54 L Pulse Oximetry 94 L 93 L 93 L 04/19/18 18:30 04/19/18 19:00 04/19/18 19:17 Temperature Pulse Rate 91 H 95 H 85 Respiratory Rate 12 26 H 24 Blood Pressure 82/54 L 84/56 L Pulse Oximetry 95 96 97 04/19/18 19:30 04/19/18 20:00 04/19/18 20:30 Temperature 98.9 F Pulse Rate 91 H 94 H 98 H Respiratory Rate 25 H 19 10 L Blood Pressure 81/51 L 87/55 L 108/60 Pulse Oximetry 93 L 88 L 96 04/19/18 21:00 04/19/18 21:30 04/19/18 22:00 Temperature Pulse Rate 99 H 104 H 100 H Respiratory Rate 21 32 H 38 H Blood Pressure 92/61 L 106/69 104/63 Pulse Oximetry 90 L 95 96 04/19/18 22:30 04/19/18 23:00 04/19/18 23:30 Temperature Pulse Rate 97 H 93 H 86 Respiratory Rate 22 11 L 24 Blood Pressure 95/66 L 91/56 L 87/55 L Pulse Oximetry 94 L 95 93 L 04/19/18 23:52 04/20/18 00:00 04/20/18 00:30 Temperature Pulse Rate 92 H 94 H Respiratory Rate 12 26 H Blood Pressure 82/52 L 95/67 L Pulse Oximetry 96 97 93 L 04/20/18 01:00 04/20/18 01:01 04/20/18 01:30 Temperature Pulse Rate 100 H 96 H 97 H Respiratory Rate 25 H 12 26 H Blood Pressure 117/75 108/65 Pulse Oximetry 96 96 95 04/20/18 02:00 04/20/18 02:30 04/20/18 03:00 Temperature Pulse Rate 100 H 90 89 Respiratory Rate 35 H 3 L 9 L Blood Pressure 106/69 90/58 L 81/51 L Pulse Oximetry 95 96 95 04/20/18 03:31 04/20/18 04:00 04/20/18 04:30 Temperature 99.0 F Pulse Rate 88 100 H 100 H Respiratory Rate 21 33 H 39 H Blood Pressure 90/64 L 145/88 H 116/67 Pulse Oximetry 96 97 97 04/20/18 05:00 04/20/18 05:30 04/20/18 06:00 Temperature Pulse Rate 85 85 99 H Respiratory Rate 22 23 33 H Blood Pressure 87/57 L 95/58 L Pulse Oximetry 98 99 97 04/20/18 06:01 04/20/18 07:00 04/20/18 08:00 Temperature 98.4 F Pulse Rate 97 H 87 87 Respiratory Rate 16 18 17 Blood Pressure 143/68 H 89/56 L 74/50 L Pulse Oximetry 97 94 L 98 04/20/18 08:40 04/20/18 09:00 04/20/18 10:00 Temperature Pulse Rate 93 H 104 H Respiratory Rate 17 16 Blood Pressure 105/68 125/65 Pulse Oximetry 96 96 97 04/20/18 11:00 04/20/18 12:00 Temperature 98.3 F Pulse Rate 106 H 112 H Respiratory Rate 17 17 Blood Pressure 119/73 135/89 Pulse Oximetry 96 95 Intake & Output 04/19/18 04/20/18 04/20/18 18:59 06:59 18:59 Intake Total 219 / 219 1639 / 1639 Balance 219 / 219 1639 / 1639 Weight 64.9 kg Intake: IV 159 / 159 1569 / 1569 D5W/Normal Saline Inj 1,000 ML 1000 / 1000 @ 100 mls/hr IV.CONT .Q10H FLAQUITA Rx#:[id number] Maxipime Inj 2,000 MG In NS Inj 100 / 100 100 ML @ 200 mls/hr IV.SIG Q24H [facility]LAQUITA Rx#:[id number] Cerebyx Inj 200 MGPE In NS Inj 54 / 54 54 / 54 50 ML @ 216 mls/hr IV.SIG Q12H [facility]LA[facility]ITA Rx#:[id number] Depacon Inj 500 MG In NS Inj 105 / 105 210 / 210 100 ML @ 105 mls/hr IV.SIG Q8HR FLAQUITA Rx#:[id number] Oral 0 / 0 70 / 70 Tube Feeding 0 / 0 0 / 0 Tube Irrigant 60 / 60 Other: Date of Last Bowel Movement 04/18/18 04/18/18 04/18/18 # Bowel Movements 0 0 Narrative: GENERAL: in NAD, SKIN: Warm and dry. NECK: Trachea midline. No JVD. CARDIOVASCULAR: Regular rate and rhythm. RESPIRATORY: No accessory muscle use. GASTROINTESTINAL: Abdomen soft, non-tender, PEG tube MUSCULOSKELETAL: Contracture NEUROLOGICAL: Lethargic, opens eyes, not following, no involuntary movements increased tone left greater than right hemiparesis, fingers contracted PSYCHIATRIC: Somnolent <Khalida Laura - Last Filed: 04/20/18 12:53> Vital signs: Vital Signs 04/19/18 21:00 04/19/18 21:30 04/19/18 22:00 Temperature Pulse Rate 99 H 104 H 100 H Respiratory Rate 21 32 H 38 H Blood Pressure 92/61 L 106/69 104/63 Pulse Oximetry 90 L 95 96 04/19/18 22:30 04/19/18 23:00 04/19/18 23:30 Temperature Pulse Rate 97 H 93 H 86 Respiratory Rate 22 11 L 24 Blood Pressure 95/66 L 91/56 L 87/55 L Pulse Oximetry 94 L 95 93 L 04/19/18 23:52 04/20/18 00:00 04/20/18 00:30 Temperature Pulse Rate 92 H 94 H Respiratory Rate 12 26 H Blood Pressure 82/52 L 95/67 L Pulse Oximetry 96 97 93 L 04/20/18 01:00 04/20/18 01:01 04/20/18 01:30 Temperature Pulse Rate 100 H 96 H 97 H Respiratory Rate 25 H 12 26 H Blood Pressure 117/75 108/65 Pulse Oximetry 96 96 95 04/20/18 02:00 04/20/18 02:30 04/20/18 03:00 Temperature Pulse Rate 100 H 90 89 Respiratory Rate 35 H 3 L 9 L Blood Pressure 106/69 90/58 L 81/51 L Pulse Oximetry 95 96 95 04/20/18 03:31 04/20/18 04:00 04/20/18 04:30 Temperature 99.0 F Pulse Rate 88 100 H 100 H Respiratory Rate 21 33 H 39 H Blood Pressure 90/64 L 145/88 H 116/67 Pulse Oximetry 96 97 97 04/20/18 05:00 04/20/18 05:30 04/20/18 06:00 Temperature Pulse Rate 85 85 99 H Respiratory Rate 22 23 33 H Blood Pressure 87/57 L 95/58 L Pulse Oximetry 98 99 97 04/20/18 06:01 04/20/18 07:00 04/20/18 08:00 Temperature 98.4 F Pulse Rate 97 H 87 87 Respiratory Rate 16 18 17 Blood Pressure 143/68 H 89/56 L 74/50 L Pulse Oximetry 97 94 L 98 04/20/18 08:40 04/20/18 09:00 04/20/18 10:00 Temperature Pulse Rate 93 H 104 H Respiratory Rate 17 16 Blood Pressure 105/68 125/65 Pulse Oximetry 96 96 97 04/20/18 11:00 04/20/18 12:00 04/20/18 13:00 Temperature 98.3 F Pulse Rate 106 H 112 H 107 H Respiratory Rate 17 17 18 Blood Pressure 119/73 135/89 112/65 Pulse Oximetry 96 95 96 04/20/18 14:00 04/20/18 15:00 Temperature Pulse Rate 103 H 104 H Respiratory Rate 18 18 Blood Pressure 103/78 133/83 Pulse Oximetry 95 95 Intake & Output 04/20/18 04/20/18 04/21/18 06:59 18:59 06:59 Intake Total 1639 / 1639 259 / 259 Balance 1639 / 1639 259 / 259 Weight 64.9 kg Intake: IV 1569 / 1569 259 / 259 D5W/Normal Saline Inj 1,000 ML 1000 / 1000 @ 100 mls/hr IV.CONT .Q10H [facility] Rx#:[id number] Maxipime Inj 2,000 MG In NS Inj 100 / 100 100 / 100 100 ML @ 200 mls/hr IV.SIG Q24H [facility] Rx#:[id number] Cerebyx Inj 200 MGPE In NS Inj 54 / 54 54 / 54 50 ML @ 216 mls/hr IV.SIG Q12H [facility] Rx#:[id number] Depacon Inj 500 MG In NS Inj 210 / 210 105 / 105 100 ML @ 105 mls/hr IV.SIG Q8HR [facility]ITA Rx#:[id number] Oral 70 / 70 Tube Feeding 0 / 0 Other: Date of Last Bowel Movement 04/18/18 04/18/18 # Bowel Movements 0 <Lizeth Bell - Last Filed: 04/20/18 20:59> Assessment and Plan - Assessment (1) Anemia Code(s): D64.9 - Anemia, unspecified Status: Acute (2) Aspiration pneumonia of both lungs Code(s): J69.0 - Pneumonitis due to inhalation of food and vomit Status: Acute Qualifiers: Aspiration pneumonia type: unspecified Lung location: lower lobe of lung Qualified Code(s): J69.0 - Pneumonitis due to inhalation of food and vomit (3) Coffee ground emesis Code(s): K92.0 - Hematemesis Status: Acute (4) Dysphagia Code(s): R13.10 - Dysphagia, unspecified Status: Acute (5) End stage renal disease on dialysis Code(s): N18.6 - End stage renal disease; Z99.2 - Dependence on renal dialysis Status: Acute (6) Hypotension Code(s): I95.9 - Hypotension, unspecified Status: Acute (7) Diabetes Code(s): E11.9 - Type 2 diabetes mellitus without complications Status: Chronic Qualifiers: Diabetes mellitus type: type 2 Chronic kidney disease stage: on chronic dialysis - Plan Patient with End stage renal disease and CVA. Patient now has altered mental status, has some seizure activity, shown also on EEG. Patient was seen by Palliative care. Plan for discharge to Hospice care center. <Khalida Laura - Last Filed: 04/20/18 12:53> - Assessment (1) Anemia Code(s): D64.9 - Anemia, unspecified Status: Acute (2) Aspiration pneumonia of both lungs Code(s): J69.0 - Pneumonitis due to inhalation of food and vomit Status: Acute Qualifiers: Aspiration pneumonia type: unspecified Lung location: lower lobe of lung Qualified Code(s): J69.0 - Pneumonitis due to inhalation of food and vomit (3) Coffee ground emesis Code(s): K92.0 - Hematemesis Status: Acute (4) Dysphagia Code(s): R13.10 - Dysphagia, unspecified Status: Acute (5) End stage renal disease on dialysis Code(s): N18.6 - End stage renal disease; Z99.2 - Dependence on renal dialysis Status: Acute (6) Hypotension Code(s): I95.9 - Hypotension, unspecified Status: Acute (7) Diabetes Code(s): E11.9 - Type 2 diabetes mellitus without complications Status: Chronic Qualifiers: Diabetes mellitus type: type 2 Chronic kidney disease stage: on chronic dialysis - Plan Patient seen and examined, agree with above. Patient is for Hospice Care and no more HD. I will sign off from Nephrology. <Lizeth Bell - Last Filed: 04/20/18 20:59>
[2018-04-20 14:21] VITALS: RESP 18
[2018-04-20 15:24] VITALS: BP 133/83; PULSE 104
== END 2018-04-20 15:25 | disposition hospice, inpatient (51) | DRG 377 ==
LOC: NEDA 00:39 → NEPE 00:39 → NEPHCDU 06:16 → N04 04-17 13:08 → HIMC 04-18 16:50
PROVIDERS: ADMIT Family Medicine; ATTEND Family Medicine
DX: D50.9 Iron deficiency anemia, unspecified; Z82.49 Family history of ischemic heart disease and other diseases of the circulatory system; M24.542 Contracture, left hand; G40.901 Epilepsy, unspecified, not intractable, with status epilepticus; Z86.19 Personal history of other infectious and parasitic diseases; G93.40 Encephalopathy, unspecified; K21.0 Gastro-esophageal reflux disease with esophagitis; K44.9 Diaphragmatic hernia without obstruction or gangrene; J69.0 Pneumonitis due to inhalation of food and vomit; R13.12 Dysphagia, oropharyngeal phase; I95.9 Hypotension, unspecified; D63.1 Anemia in chronic kidney disease; K92.1 Melena; Z66 Do not resuscitate; Z88.6 Allergy status to analgesic agent; N18.6 End stage renal disease; E78.5 Hyperlipidemia, unspecified; Z51.5 Encounter for palliative care; Z93.1 Gastrostomy status; F20.9 Schizophrenia, unspecified; Z79.4 Long term (current) use of insulin; N40.0 Benign prostatic hyperplasia without lower urinary tract symptoms; K92.0 Hematemesis; R13.10 Dysphagia, unspecified; Z74.01 Bed confinement status; E11.51 Type 2 diabetes mellitus with diabetic peripheral angiopathy without gangrene; E11.22 Type 2 diabetes mellitus with diabetic chronic kidney disease; I69.354 Hemiplegia and hemiparesis following cerebral infarction affecting left non-dominant side; M81.0 Age-related osteoporosis without current pathological fracture; E11.3519 Type 2 diabetes mellitus with proliferative diabetic retinopathy with macular edema, unspecified eye; Z53.8 Procedure and treatment not carried out for other reasons; F31.9 Bipolar disorder, unspecified; E03.9 Hypothyroidism, unspecified; F41.9 Anxiety disorder, unspecified; Z99.2 Dependence on renal dialysis; R53.2 Functional quadriplegia; I50.9 Heart failure, unspecified; Z86.14 Personal history of Methicillin resistant Staphylococcus aureus infection; I25.10 Atherosclerotic heart disease of native coronary artery without angina pectoris; I13.2 Hypertensive heart and chronic kidney disease with heart failure and with stage 5 chronic kidney disease, or end stage renal disease
CPT/HCPCS: 70450; 70496; 70498; 71010; 71045; 74176; 80048; 80053; 80164; 80185; 81001; 82435; 82550; 82565; 82947; 82948; 82962; 83690; 83735; 84132; 84295; 84484; 84520; 85014; 85018; 85025; 85027; 85384; 85610; 85730; 86850; 86900; 86901; 87040; 87086; 87106; 87641; 90774; 90775; 90784; 90935; 92610; 93005; 95819; 96361; 96365; 96366; 96367; 96368; 96374; 96375; 96376; 97162; 99285; C8952; C9113; G0195; G0378; G8996; G8997; J0692; J0886; J1200; J2060; J2270; J2405; J2560; J3370; J7040; J7042; J7050; P9047; Q2009; Q4055; Q4081; Q9967